=== PATIENT | female | born 1960 | race Caucasian/White ===

== ENCOUNTER 2021-11-18 15:04 | Inpatient (IN) | payer OTHER, MEDICAID, SELFPAY ==
[2021-11-18] VITALS (17 sets, daily range): BP systolic 87–170; BP diastolic 38–79; PULSE 49–90; RESP 14–25; TEMP 35–36.8; O2SAT 88–99; BMI 57.9; BMI 57.1
--- NOTE | ~2021-11-18 | XR_ITS ---
EXAMINATION: XR CHEST CLINICAL INFORMATION: Check line and tube placement COMPARISON: Previous chest x-ray from earlier the same day TECHNIQUE: Frontal view of the chest was obtained. FINDINGS: There is a right jugular line with tip projecting over the SVC. There endotracheal tube tip 3.5 cm above the kyung. There is an orogastric tube projecting over the stomach. Tip is not seen. The lung volumes are low. The cardiac and mediastinal contours are stable. There is bilateral atelectasis or infiltrates greatest lung bases. There is no pleural effusion or pneumothorax. There are degenerative changes of the spine. There is a left shoulder prosthesis. XR/XR chest 1V IMPRESSION: Right jugular line projects over SVC. Orogastric tube projects over the stomach. The tip is not seen. Endotracheal tube tip 3.5 cm above the kyung. Low lung volumes and bilateral atelectasis or infiltrates, greatest at the lung bases.
--- NOTE | ~2021-11-18 | US_ITS ---
EXAMINATION: US VENOUS ULTRASOUND WITH DOPPLER LOWER EXTREMITY, BILATERAL CLINICAL INFORMATION: Bilateral lower extremity swelling. Patient is post total knee replacement. COMPARISON: None TECHNIQUE: Ultrasound of the deep veins is performed from the hip to the calf with compression sonography and color and pulse Doppler assessment. Spectral analysis with color-flow imaging is performed. FINDINGS: RIGHT: The right common femoral and proximal and mid superficial femoral, popliteal and posterior tibial veins are patent. The right distal superficial femoral vein, profunda, peroneal and greater saphenous veins are not visualized. LEFT: The left common femoral, proximal and mid superficial femoral, profunda, popliteal and posterior tibial veins are patent. The left distal superficial femoral vein and peroneal vein are not well visualized. Short-term follow-up exam should be considered in several days if clinically indicated. No significant Nguyen's cyst is seen. There is bilateral lower extremity edema. US/US venous duplex LE BI IMPRESSION: Limited exam. No DVT seen. The bilateral distal superficial femoral and peroneal veins and right profunda and greater saphenous veins are not visualized.
--- NOTE | ~2021-11-18 | XR_ITS ---
EXAMINATION: XR CHEST CLINICAL INFORMATION: Difficulty breathing. COMPARISON: None TECHNIQUE: Frontal view of the chest was obtained. FINDINGS: Lungs are markedly hypoexpanded. Heart is probably mildly enlarged. The kyung is difficult to see but an ET tube appears to be present, which is probably about 1.5 cm above the kyung. Bilateral atelectasis is seen. A left-sided pleural effusion cannot be excluded. XR/XR chest 1V IMPRESSION: Markedly hypoexpanded lungs with bibasilar atelectasis. ET tube appears to be present approximately 1.5 cm above the kyung.
--- NOTE | ~2021-11-18 | CT_ITS ---
EXAMINATION: CT CHEST WITHOUT CONTRAST CLINICAL INFORMATION: Hypoxia COMPARISON: Chest radiograph earlier today TECHNIQUE: Multidetector volumetric CT imaging of the chest was done. Axial MIP volume rendering provided. Sagittal and coronal reformatted images were obtained. This CT examination was performed using dose optimization techniques as appropriate, variously including the following: *Automated exposure control *Adjustment of mA and/or kV according to patient size (this includes techniques or standardized protocols for targeted exams where dose is matched to indication/reason for exam; i.e. extremities or head) *Use of iterative reconstruction technique DLP: 826 mGy-cm FINDINGS: LUNGS AND PLEURA: Bilateral lower lobe collapse/consolidation is present. Trace pleural effusions are probably present. Some atelectasis is present in the upper lobes and right paramediastinal region. No suspicious lung masses are seen. MEDIASTINUM: An ET tube is present 2 cm above the kyung. No gross mediastinal or hilar lymphadenopathy is present although assessment without IV contrast is suboptimal. The heart is enlarged. No pericardial effusion. AXILLA AND CHEST WALL: No lymphadenopathy. UPPER ABDOMEN: There is a partially visualized Bosniak class I left renal cyst. No ascites is present. No adrenal mass is seen. A small hiatal hernia is present. OSSEOUS STRUCTURES: Degenerative changes are present throughout the spine. No bony destructive CT/CT chest wo con IMPRESSION: Bilateral lower lobe collapse/consolidation much more apparent on this exam than on the plain film. Cardiomegaly and trace pleural effusions. Fleischner guidelines were followed.
--- NOTE | ~2021-11-18 | CT_ITS ---
EXAMINATION: CT HEAD WITHOUT CONTRAST CLINICAL INFORMATION: Altered mental status. COMPARISON: None TECHNIQUE: Contiguous axial imaging was performed from the skull base to vertex without intravenous administration of contrast. This CT examination was performed using dose optimization techniques as appropriate, variously including the following: *Automated exposure control *Adjustment of mA and/or kV according to patient size (this includes techniques or standardized protocols for targeted exams where dose is matched to indication/reason for exam; i.e. extremities or head) *Use of iterative reconstruction technique DLP: 924 mGy-cm FINDINGS: There is no evidence of acute intracranial hemorrhage or territorial infarction. No abnormal mass effect or midline shift is seen. Teixeira to white matter differentiation is well preserved. No extra-axial fluid collections are identified. The ventricles are normal in size. There is no abnormal attenuation within the brain parenchyma. The osseous structures and soft tissues are normal. The mastoid air cells and visualized portions of the paranasal sinuses are well aerated. CT/CT head/brain wo con IMPRESSION: No acute intracranial pathology.
--- NOTE | 2021-11-18 15:21 | ECG_ITS ---
Test Reason : Difficulty Breathing Blood Pressure : / mmHG Vent. Rate : 069 BPM Atrial Rate : 069 BPM P-R Int : 202 ms QRS Dur : 160 ms QT Int : 440 ms P-R-T Axes : 046 -34 109 degrees QTc Int : 471 ms Normal sinus rhythm Left axis deviation Left bundle branch block Abnormal ECG No previous ECGs available Referred By: Andreina Méndez Electronically Signed By:MAREN VIDALES MD
--- NOTE | 2021-11-18 15:23 | PC.NURSE ---
placed on bipap, ?impending need for intubation. respiratory and provider at bedside, vital signs stabalizing on bipap.
--- NOTE | 2021-11-18 15:25 | ED_ITS ---
HPI - Weakness General Chief complaint: Weakness <Andreina Méndez NP - Last Filed: 11/18/21 19:00> Stated complaint: unresponsive/hypoxic <Andreina Méndez NP - Last Filed: 11/18/21 19:00> Time Seen by Provider: 11/18/21 15:17 <Andreina Méndez NP - Last Filed: 11/18/21 19:00> Source: EMS <Andreina Méndez NP - Last Filed: 11/18/21 19:00> Mode of arrival: EMS <Andreina Méndez NP - Last Filed: 11/18/21 19:00> Limitations: altered mental status <Andreina Méndez NP - Last Filed: 11/18/21 19:00> History of Present Illness HPI Narrative: 60-year-old female coming from [facility] with reports of altered mental status, hypoxia noted this morning by staff. There is no history available in the patient. She is unable to answer any questions. The report given by EMS the patient is currently at [facility] for a left knee replacement having rehab. Per EMS the patient's RA saturation was 80% <Andreina Méndez NP - Last Filed: 11/18/21 19:00> Related Data Allergies/Adverse reactions: Allergies Allergy/AdvReac Type Severity Reaction Status Date / Time Unable to Assess Allergy Verified 11/18/21 15:21 <Andreina Méndez NP - Last Filed: 11/18/21 19:00> Review of Systems Review of Systems: Yes Unobtainable due to mental status <Andreina Méndez NP - Last Filed: 11/18/21 19:00> [facility] Past Medical History Attestation statement: The following information was validated with the patient. <Andreina montiel NP - Last Filed: 11/18/21 19:00> Source: old records reviewed and nursing notes reviewed <Andreina Méndez NP - Last Filed: 11/18/21 19:00> Social History Social History: Social History Advance Directives: No Advance Directives Information Provided: No Patient : No <Andreina Méndez NP - Last Filed: 11/18/21 19:00> Physical Exam Vital Signs: Vital Signs: Last Vital Signs Pulse 74 11/18/21 15:19 Resp 25 H 11/18/21 15:27 BP 128/51 L 11/18/21 15:19 Pulse Ox 88 L 11/18/21 15:19 BMI result Body Mass Index 57.9 <Andreina Méndez NP - Last Filed: 11/18/21 19:00> Vital Signs: Last Vital Signs Pulse 74 11/18/21 15:19 Resp 25 H 11/18/21 15:27 BP 128/51 L 11/18/21 15:19 Pulse Ox 88 L 11/18/21 15:19 BMI result Body Mass Index 57.9 <Juan Carlos Sharp MD - Last Filed: 11/18/21 16:23> Const: Other: Patient is resting with her eyes closed. She does respond to gentle shaking and opens her eyes to tell me her name. She quickly falls back to sleep. <Andreina Méndez NP - Last Filed: 11/18/21 19:00> General: other (lethargic) <Andreina Méndez NP - Last Filed: 11/18/21 19:00> Nutritional Appearance: obese <Andreina Méndez NP - Last Filed: 11/18/21 19:00> Orientation/consciousness: oriented to person <Andreina Méndez NP - Last Filed: 11/18/21 19:00> Limitations: altered mental status <Andreina Méndez NP - Last Filed: 11/18/21 19:00> HENMT: Head: Yes normal to inspection <Andreina Méndez NP - Last Filed: 11/18/21 19:00> Ears: hearing grossly normal bilaterally <Andreina Méndez NP - Last Filed: 11/18/21 19:00> General nose exam: Normal external nose present <Andreina Méndez NP - Last Filed: 11/18/21 19:00> Face and sinus: Yes normal facial exam <Andreina Méndez NP - Last Filed: 11/18/21 19:00> Throat: Yes posterior oropharynx normal and Yes tonsils normal <Andreina Méndez NP - Last Filed: 11/18/21 19:00> Eyes: General: appearance normal, both eyes and all related structures <Andreina Méndez NP - Last Filed: 11/18/21 19:00> Pupils: Equal, round and reactive pupils present <Andreina Méndez NP - Last Filed: 11/18/21 19:00> Neck: Neck: Yes normal visual inspection <Andreina Méndez NP - Last Filed: 11/18/21 19:00> Chest: Chest palpation & inspection: normal inspection of the chest <Andreina Méndez NP - Last Filed: 11/18/21 19:00> Resp: Other: Tachypneic, accessory muscle use <Andreina Méndez NP - Last Filed: 11/18/21 19:00> Cardio: Rate: tachycardic <Andreina Médnez NP - Last Filed: 11/18/21 19:00> Rhythm: regular rhythm <Andreina Méndez NP - Last Filed: 11/18/21 19:00> GI: Inspection: Yes obesity <Andreina Méndez NP - Last Filed: 11/18/21 19:00> Skin: Other: <Andreina Méndez NP - Last Filed: 11/18/21 19:00> Neuro: Other: +very lethargic <Andreina Méndez NP - Last Filed: 11/18/21 19:00> General: oriented to person, normal sensation to monofilament and Unable to as sess gait <Andreina Méndez NP - Last Filed: 11/18/21 19:00> Cranial nerves: Yes Equal, round and reactive pupils present <Andreina Méndez NP - Last Filed: 11/18/21 19:00> Gait exam (Neuro): Unable to assess gait <Andreina Méndez NP - Last Filed: 11/18/21 19:00> Course Course Course Narrative: 60 yo female coming from a rehab facility after having a TKR with AMS, hypoxia. No known history of the patient. Per verbal report patient is a full code. Patient noted to be quite lethargic, rouses to verbal and follows brief commands. Hypoxic 85% on 100% NRB with accessory muscle use and tachypnea. Dr. Sharp brought directly bedside. ?co2 narcosis. Patient placed immediately on BIPAP. RT at bedside for ABG, will obtain labs, UA, COVID screen, CXR. 1545-ABG c/w respiratory acidosis with CO2 91. Patient now minimally responsive. Hypoxic despite being on BiPAP. Will need intubation. [facility] able [facility] They were unable to fax us medical records. Per staff the patient has a history of osteoarthritis, depre ssion, congestive heart failure, pulmonary embolism on Eliquis, type 2 diabetes, hypertension, C diff currently being treated with vancomycin, right foot infection currently on amoxicillin. Patient was transferred from [facility] on November 07 for rehab for left total knee replacement. Her medication list is composed of carvedilol, enalapril, gabapentin, iron, 81 mg aspirin, Lipitor, Lasix, Eliquis, tizanidine, sertraline, vancomycin, amoxicillin, oxycodone 10 mg t.i.d., trazodone p.r.n. We did attempt to give Narcan 1 mg as the patient is on chronic opiates with no effect. 1550-Spoke to the Miah on the phone who gave verbal consent for intubation 1600-See intubation note by Dr. Sharp. 1605- patient has a right lower extremity cellulitis from a heel wound. At this time infection suspected. Antibiotics ordered 1610-ET tube pulled back 1cm after seeing CXR. Now 24 at the gum line. 1615-Will be brought direct to CT for CT head to r/o ICH d/t AC therapy use and AMS. [employer] aware of patient 1700-Returned from CT. Blood pressures soft 90/40 after 1500ml NS. ?post sedation hypotension and not from infection. Patient has required prn ativan/versed for mild agitation. D/w with Dr Armenta about appropriate sedation with soft BP. Recommended albumin x2, initiating sedation. If continued hypotension initiate pressers. Aware patient does not have central line at this time. 1805-post intubation ABG shows pH 7.493, CO2 45.6, PO2 65.3, O2 92%. RT to decr ease rate on vent d/t mild alkalosis. <Andreina Méndez NP - Last Filed: 0 11/18/21 19:00> MDM - Weakness MDM Narrative Medical decision making narrative: ICH CO2 narcosis <Andreina Méndez NP - Last Filed: 11/18/21 19:00> Differential Diagnosis Differential diagnosis: Likely UTI, anemia, hypoglycemia, rhabdomyolysis, sepsis and dehydration <Andreina Méndez NP - Last Filed: 11/18/21 19:00> Medical Records Attestation: I reviewed the patient's medical records. <Andreina Méndez NP - Last Filed: 11/18/21 19:00> Lab Data Attestation: I reviewed the patient's lab results. <Andreina Méndez NP - Last Filed: 11/18/21 19:00> Result diagrams: : 11/18/21 15:27 11/18/21 15:27 <Andreina Méndez NP - Last Filed: 11/18/21 19:00> Labs: Lab Results 11/18/21 11/18/21 11/18/21 Range/Units 15:27 15:27 15:27 WBC 10.1 (4.8-10.8) X10*3/uL RBC 3.68 L (4.20-5.50) X10*6/uL Hgb 9.4 L (12.0-16.0) g/dl Hct 34.5 L (37.0-47.0) % MCV 93.8 (80.0-98.0) fL MCH 25.5 L (27.0-33.0) pg MCHC 27.2 L (31.0-35.0) g/dl RDW 17.6 H (11.0-16.0) % Plt Count 278 (160-400) X10*3/uL MPV 9.9 (9.4-12.3) fL Immature Gran % (Auto) 0.5 H (0.0-0.4) % Neut % (Auto) 69.7 (45-73) % Lymph % (Auto) 16.7 L (20-40) % Galax % (Auto) 9.6 (2-11) % Eos % (Auto) 3.2 (0-4) % Baso % (Auto) 0.3 (0-2) % Lymph # (Auto) 1.7 (1.2-4.9) X10*3/uL Galax # (Auto) 1.0 (0.1-1.2) X10*3/uL Eos # (Auto) 0.3 (0.0-0.4) X10*3/uL Baso # (Auto) 0.0 (0.0-0.2) X10*3/uL Abs Immat Gran (auto) 0.05 H (0.00-0.03) X10*3/uL Absolute Neuts (auto) 7.1 (2.0-8.3) x10*3/uL Absolute Nucleated RBC 0.090 H (0.0-0.012) X10*3/uL Nucleated RBC % (auto) 0.9 H (0.0-0.2) /100WBC PT 20.2 H (9.9-13.0) SEC INR 1.8 H (0.9-1.1) O2 Saturation % ABG pH at Pt Temp (7.35-7.45) ABG pCO2 at Pt Temp (32-45) mmHg ABG pO2 at Pt Temp (83-108) mmHg ABG HCO3 (22-26) mmol/L ABG Base Excess (Actual) mmol/L Sodium 141 (135-145) mmol/L Potassium 4.9 (3.3-5.1) mmol/L Chloride 95 L (96-108) mmol/L Carbon Dioxide 37 H (22-29) mmol/L Anion Gap 14 (12-20) BUN 40 H (9-16) mg/dL Creatinine 2.23 H (0.5-1.4) mg/dL Estim Creat Clear Calc 45.0 Estimated GFR 22 Random Glucose 133 H (60-115) mg/dL Lactic Acid (0.5-2.0) mmol/L Calcium 8.5 (8.4-10.2) mg/dL Magnesium 2.7 H (1.6-2.6) mg/dL Total Bilirubin 0.4 (0.0-1.0) mg/dL Direct Bilirubin 0.2 (0.0-0.5) mg/dL AST 9 (5-31) U/L ALT 6 (0-31) U/L Alkaline Phosphatase 113 (39-117) U/L Troponin I High Sens (<3.5-17.0) ng/L B-Natriuretic Peptide (<100) pg/mL Total Protein 7.4 (6.5-8.0) g/dL Albumin 3.7 (3.5-5.0) g/dL Urine Color Urine Appearance Urine pH (5.0-8.0) Ur Specific Hodges (1.005-1.025) Urine Protein (NEG-TRACE) MG/DL Urine Glucose (UA) (NEG) MG/DL Urine Ketones (NEG) MG/DL Urine Blood (NEG) Urine Nitrite (NEG) Ur Leukocyte Esterase (NEG) COVID-19 (LIS) (Negative) COVID-19 Clin Com 11/18/21 11/18/21 11/18/21 Range/Units 15:27 15:27 15:27 WBC (4.8-10.8) X10*3/uL RBC (4.20-5.50) X10*6/uL Hgb (12.0-16.0) g/dl Hct (37.0-47.0) % MCV (80.0-98.0) fL MCH (27.0-33.0) pg MCHC (31.0-35.0) g/dl RDW (11.0-16.0) % Plt Count (160-400) X10*3/uL MPV (9.4-12.3) fL Immature Gran % (Auto) (0.0-0.4) % Neut % (Auto) (45-73) % Lymph % (Auto) (20-40) % Galax % (Auto) (2-11) % Eos % (Auto) (0-4) % Baso % (Auto) (0-2) % Lymph # (Auto) (1.2-4.9) X10*3/uL Galax # (Auto) (0.1-1.2) X10*3/uL Eos # (Auto) (0.0-0.4) X10*3/uL Baso # (Auto) (0.0-0.2) X10*3/uL Abs Immat Gran (auto) (0.00-0.03) X10*3/uL Absolute Neuts (auto) (2.0-8.3) x10*3/uL Absolute Nucleated RBC (0.0-0.012) X10*3/uL Nucleated RBC % (auto) (0.0-0.2) /100WBC PT (9.9-13.0) SEC INR (0.9-1.1) O2 Saturation % ABG pH at Pt Temp (7.35-7.45) ABG pCO2 at Pt Temp (32-45) mmHg ABG pO2 at Pt Temp (83-108) mmHg ABG HCO3 (22-26) mmol/L ABG Base Excess (Actual) mmol/L Sodium (135-145) mmol/L Potassium (3.3-5.1) mmol/L Chloride (96-108) mmol/L Carbon Dioxide (22-29) mmol/L Anion Gap (12-20) BUN (9-16) mg/dL Creatinine (0.5-1.4) mg/dL Estim Creat Clear Calc Estimated GFR Random Glucose (60-115) mg/dL Lactic Acid 1.1 (0.5-2.0) mmol/L Calcium (8.4-10.2) mg/dL Magnesium (1.6-2.6) mg/dL Total Bilirubin (0.0-1.0) mg/dL Direct Bilirubin (0.0-0.5) mg/dL AST (5-31) U/L ALT (0-31) U/L Alkaline Phosphatase (39-117) U/L Troponin I High Sens 12.4 (<3.5-17.0) ng/L B-Natriuretic Peptide 405 H (<100) pg/mL Total Protein (6.5-8.0) g/dL Albumin (3.5-5.0) g/dL Urine Color Urine Appearance Urine pH (5.0-8.0) Ur Specific Hodges (1.005-1.025) Urine Protein (NEG-TRACE) MG/DL Urine Glucose (UA) (NEG) MG/DL Urine Ketones (NEG) MG/DL Urine Blood (NEG) Urine Nitrite (NEG) Ur Leukocyte Esterase (NEG) COVID-19 (LIS) Negative (Negative) COVID-19 Clin Com See Note 11/18/21 11/18/21 Range/Units 15:40 16:17 WBC (4.8-10.8) X10*3/uL RBC (4.20-5.50) X10*6/uL Hgb (12.0-16.0) g/dl Hct (37.0-47.0) % MCV (80.0-98.0) fL MCH (27.0-33.0) pg MCHC (31.0-35.0) g/dl RDW (11.0-16.0) % Plt Count (160-400) X10*3/uL MPV (9.4-12.3) fL Immature Gran % (Auto) (0.0-0.4) % Neut % (Auto) (45-73) % Lymph % (Auto) (20-40) % Galax % (Auto) (2-11) % Eos % (Auto) (0-4) % Baso % (Auto) (0-2) % Lymph # (Auto) (1.2-4.9) X10*3/uL Galax # (Auto) (0.1-1.2) X10*3/uL Eos # (Auto) (0.0-0.4) X10*3/uL Baso # (Auto) (0.0-0.2) X10*3/uL Abs Immat Gran (auto) (0.00-0.03) X10*3/uL Absolute Neuts (auto) (2.0-8.3) x10*3/uL Absolute Nucleated RBC (0.0-0.012) X10*3/uL Nucleated RBC % (auto) (0.0-0.2) /100WBC PT (9.9-13.0) SEC INR (0.9-1.1) O2 Saturation 95.0 % ABG pH at Pt Temp 7.29 L (7.35-7.45) ABG pCO2 at Pt Temp 91 H* (32-45) mmHg ABG pO2 at Pt Temp 92 (83-108) mmHg ABG HCO3 44 H (22-26) mmol/L ABG Base Excess (Actual) 14.1 mmol/L Sodium (135-145) mmol/L Potassium (3.3-5.1) mmol/L Chloride (96-108) mmol/L Carbon Dioxide (22-29) mmol/L Anion Gap (12-20) BUN (9-16) mg/dL Creatinine (0.5-1.4) mg/dL Estim Creat Clear Calc Estimated GFR Random Glucose (60-115) mg/dL Lactic Acid (0.5-2.0) mmol/L Calcium (8.4-10.2) mg/dL Magnesium (1.6-2.6) mg/dL Total Bilirubin (0.0-1.0) mg/dL Direct Bilirubin (0.0-0.5) mg/dL AST (5-31) U/L ALT (0-31) U/L Alkaline Phosphatase (39-117) U/L Troponin I High Sens (<3.5-17.0) ng/L B-Natriuretic Peptide (<100) pg/mL Total Protein (6.5-8.0) g/dL Albumin (3.5-5.0) g/dL Urine Color DK YELLOW Urine Appearance CLEAR Urine pH 5.5 (5.0-8.0) Ur Specific Hodges >= 1.030 H (1.005-1.025) Urine Protein NEG (NEG-TRACE) MG/DL Urine Glucose (UA) NEG (NEG) MG/DL Urine Ketones 5 (NEG) MG/DL Urine Blood NEG (NEG) Urine Nitrite NEG (NEG) Ur Leukocyte Esterase NEG (NEG) COVID-19 (LIS) (Negative) COVID-19 Clin Com <Andreina Méndez PUNCH HAND - Last Filed: 11/18/21 19:00> Lab Results 11/18/21 11/18/21 11/18/21 Range/Units 15:27 15:27 15:27 WBC 10.1 (4.8-10.8) X10*3/uL RBC 3.68 L (4.20-5.50) X10*6/uL Hgb 9.4 L (12.0-16.0) g/dl Hct 34.5 L (37.0-47.0) % MCV 93.8 (80.0-98.0) fL MCH 25.5 L (27.0-33.0) pg MCHC 27.2 L (31.0-35.0) g/dl RDW 17.6 H (11.0-16.0) % Plt Count 278 (160-400) X10*3/uL MPV 9.9 (9.4-12.3) fL Immature Gran % (Auto) 0.5 H (0.0-0.4) % Neut % (Auto) 69.7 (45-73) % Lymph % (Auto) 16.7 L (20-40) % Galax % (Auto) 9.6 (2-11) % Eos % (Auto) 3.2 (0-4) % Baso % (Auto) 0.3 (0-2) % Lymph # (Auto) 1.7 (1.2-4.9) X10*3/uL Galax # (Auto) 1.0 (0.1-1.2) X10*3/uL Eos # (Auto) 0.3 (0.0-0.4) X10*3/uL Baso # (Auto) 0.0 (0.0-0.2) X10*3/uL Abs Immat Gran (auto) 0.05 H (0.00-0.03) X10*3/uL Absolute Neuts (auto) 7.1 (2.0-8.3) x10*3/uL Absolute Nucleated RBC 0.090 H (0.0-0.012) X10*3/uL Nucleated RBC % (auto) 0.9 H (0.0-0.2) /100WBC PT 20.2 H (9.9-13.0) SEC INR 1.8 H (0.9-1.1) O2 Saturation % ABG pH at Pt Temp (7.35-7.45) ABG pCO2 at Pt Temp (32-45) mmHg ABG pO2 at Pt Temp (83-108) mmHg ABG HCO3 (22-26) mmol/L ABG Base Excess (Actual) mmol/L Sodium 141 (135-145) mmol/L Potassium 4.9 (3.3-5.1) mmol/L Chloride 95 L (96-108) mmol/L Carbon Dioxide 37 H (22-29) mmol/L Anion Gap 14 (12-20) BUN 40 H (9-16) mg/dL Creatinine 2.23 H (0.5-1.4) mg/dL Estim Creat Clear Calc 45.0 Estimated GFR 22 Random Glucose 133 H (60-115) mg/dL Lactic Acid (0.5-2.0) mmol/L Calcium 8.5 (8.4-10.2) mg/dL Magnesium 2.7 H (1.6-2.6) mg/dL Total Bilirubin 0.4 (0.0-1.0) mg/dL Direct Bilirubin 0.2 (0.0-0.5) mg/dL AST 9 (5-31) U/L ALT 6 (0-31) U/L Alkaline Phosphatase 113 (39-117) U/L Troponin I High Sens (<3.5-17.0) ng/L B-Natriuretic Peptide (<100) pg/mL Total Protein 7.4 (6.5-8.0) g/dL Albumin 3.7 (3.5-5.0) g/dL Urine Color Urine Appearance Urine pH (5.0-8.0) Ur Specific Hodges (1.005-1.025) Urine Protein (NEG-TRACE) MG/DL Urine Glucose (UA) (NEG) MG/DL Urine Ketones (NEG) MG/DL Urine Blood (NEG) Urine Nitrite (NEG) Ur Leukocyte Esterase (NEG) COVID-19 (LIS) (Negative) COVID-19 Clin Com 11/18/21 11/18/21 11/18/21 Range/Units 15:27 15:27 15:27 WBC (4.8-10.8) X10*3/uL RBC (4.20-5.50) X10*6/uL Hgb (12.0-16.0) g/dl Hct (37.0-47.0) % MCV (80.0-98.0) fL MCH (27.0-33.0) pg MCHC (31.0-35.0) g/dl RDW (11.0-16.0) % Plt Count (160-400) X10*3/uL MPV (9.4-12.3) fL Immature Gran % (Auto) (0.0-0.4) % Neut % (Auto) (45-73) % Lymph % (Auto) (20-40) % Galax % (Auto) (2-11) % Eos % (Auto) (0-4) % Baso % (Auto) (0-2) % Lymph # (Auto) (1.2-4.9) X10*3/uL Galax # (Auto) (0.1-1.2) X10*3/uL Eos # (Auto) (0.0-0.4) X10*3/uL Baso # (Auto) (0.0-0.2) X10*3/uL Abs Immat Gran (auto) (0.00-0.03) X10*3/uL Absolute Neuts (auto) (2.0-8.3) x10*3/uL Absolute Nucleated RBC (0.0-0.012) X10*3/uL Nucleated RBC % (auto) (0.0-0.2) /100WBC PT (9.9-13.0) SEC INR (0.9-1.1) O2 Saturation % ABG pH at Pt Temp (7.35-7.45) ABG pCO2 at Pt Temp (32-45) mmHg ABG pO2 at Pt Temp (83-108) mmHg ABG HCO3 (22-26) mmol/L ABG Base Excess (Actual) mmol/L Sodium (135-145) mmol/L Potassium (3.3-5.1) mmol/L Chloride (96-108) mmol/L Carbon Dioxide (22-29) mmol/L Anion Gap (12-20) BUN (9-16) mg/dL Creatinine (0.5-1.4) mg/dL Estim Creat Clear Calc Estimated GFR Random Glucose (60-115) mg/dL Lactic Acid 1.1 (0.5-2.0) mmol/L Calcium (8.4-10.2) mg/dL Magnesium (1.6-2.6) mg/dL Total Bilirubin (0.0-1.0) mg/dL Direct Bilirubin (0.0-0.5) mg/dL AST (5-31) U/L ALT (0-31) U/L Alkaline Phosphatase (39-117) U/L Troponin I High Sens 12.4 (<3.5-17.0) ng/L B-Natriuretic Peptide 405 H (<100) pg/mL Total Protein (6.5-8.0) g/dL Albumin (3.5-5.0) g/dL Urine Color Urine Appearance Urine pH (5.0-8.0) Ur Specific Hodges (1.005-1.025) Urine Protein (NEG-TRACE) MG/DL Urine Glucose (UA) (NEG) MG/DL Urine Ketones (NEG) MG/DL Urine Blood (NEG) Urine Nitrite (NEG) Ur Leukocyte Esterase (NEG) COVID-19 (LIS) Negative (Negative) COVID-19 Clin Com See Note 11/18/21 11/18/21 Range/Units 15:40 16:17 WBC (4.8-10.8) X10*3/uL RBC (4.20-5.50) X10*6/uL Hgb (12.0-16.0) g/dl Hct (37.0-47.0) % MCV (80.0-98.0) fL MCH (27.0-33.0) pg MCHC (31.0-35.0) g/dl RDW (11.0-16.0) % Plt Count (160-400) X10*3/uL MPV (9.4-12.3) fL Immature Gran % (Auto) (0.0-0.4) % Neut % (Auto) (45-73) % Lymph % (Auto) (20-40) % Galax % (Auto) (2-11) % Eos % (Auto) (0-4) % Baso % (Auto) (0-2) % Lymph # (Auto) (1.2-4.9) X10*3/uL Galax # (Auto) (0.1-1.2) X10*3/uL Eos # (Auto) (0.0-0.4) X10*3/uL Baso # (Auto) (0.0-0.2) X10*3/uL Abs Immat Gran (auto) (0.00-0.03) X10*3/uL Absolute Neuts (auto) (2.0-8.3) x10*3/uL Absolute Nucleated RBC (0.0-0.012) X10*3/uL Nucleated RBC % (auto) (0.0-0.2) /100WBC PT (9.9-13.0) SEC INR (0.9-1.1) O2 Saturation 95.0 % ABG pH at Pt Temp 7.29 L (7.35-7.45) ABG pCO2 at Pt Temp 91 H* (32-45) mmHg ABG pO2 at Pt Temp 92 (83-108) mmHg ABG HCO3 44 H (22-26) mmol/L ABG Base Excess (Actual) 14.1 mmol/L Sodium (135-145) mmol/L Potassium (3.3-5.1) mmol/L Chloride (96-108) mmol/L Carbon Dioxide (22-29) mmol/L Anion Gap (12-20) BUN (9-16) mg/dL Creatinine (0.5-1.4) mg/dL Estim Creat Clear Calc Estimated GFR Random Glucose (60-115) mg/dL Lactic Acid (0.5-2.0) mmol/L Calcium (8.4-10.2) mg/dL Magnesium (1.6-2.6) mg/dL Total Bilirubin (0.0-1.0) mg/dL Direct Bilirubin (0.0-0.5) mg/dL AST (5-31) U/L ALT (0-31) U/L Alkaline Phosphatase (39-117) U/L Troponin I High Sens (<3.5-17.0) ng/L B-Natriuretic Peptide (<100) pg/mL Total Protein (6.5-8.0) g/dL Albumin (3.5-5.0) g/dL Urine Color DK YELLOW Urine Appearance CLEAR Urine pH 5.5 (5.0-8.0) Ur Specific Hodges >= 1.030 H (1.005-1.025) Urine Protein NEG (NEG-TRACE) MG/DL Urine Glucose (UA) NEG (NEG) MG/DL Urine Ketones 5 (NEG) MG/DL Urine Blood NEG (NEG) Urine Nitrite NEG (NEG) Ur Leukocyte Esterase NEG (NEG) COVID-19 (LIS) (Negative) COVID-19 Clin Com <Juan Carlos Sharp MD - Last Filed: 11/18/21 16:23> Imaging Data Chest x-ray: Attestation: I personally reviewed and interpreted this imaging study as follows: <Andreina Méndez NP - Last Filed: 11/18/21 19:00> Radiologist's impression: FINDINGS: Lungs are markedly hypoexpanded. Heart is probably mildly enlarged. The kyung is difficult to see but an ET tube appears to be present, which is probably about 1.5 cm above the kyung. Bilateral atelectasis is seen. A left-sided pleural effusion cannot be excluded. XR/XR chest 1V IMPRESSION: Markedly hypoexpanded lungs with bibasilar atelectasis. ET tube appears to be present approximately 1.5 cm above the kyung. <Andreina Méndez NP - Last Filed: 11/18/21 19:00> CT scan - head: Attestation: I personally reviewed and interpreted this imaging study as follows: <Andreina Méndez NP - Last Filed: 11/18/21 19:00> Radiologist's impression: FINDINGS: There is no evidence of acute intracranial hemorrhage or territorial infarction. No abnormal mass effect or midline shift is seen. Teixeira to white matter differentiation is well preserved. No extra-axial fluid collections are identified. The ventricles are normal in size. There is no abnormal attenuation within the brain parenchyma. The osseous structures and soft tissues are normal. The mastoid air cells and visualized portions of the paranasal sinuses are well aerated. ? CT/CT head/brain wo con IMPRESSION: No acute intracranial pathology. <Andreina Méndez NP - Last Filed: 11/18/21 19:00> CT scan - chest: Attestation: I personally reviewed and interpreted this imaging study as follows: <Andreina Méndez NP - Last Filed: 11/18/21 19:00> Radiologist's impression: [address] [address] [address] Scan Report Signed Patient: Bonnie Das MR#: [id number] : 1960 Acct:[id number] Age/Sex: 60 / F ADM Date: 11/18/21 Loc: .ICU 252-[address]: Cheikh Armenta MD Ordering Physician: Andreina Méndez NP Date of Service: 11/18/21 Procedure(s): CT chest wo con Accession Number(s): [id number] cc: Andreina Méndez NP~ EXAMINATION: CT CHEST WITHOUT CONTRAST CLINICAL INFORMATION: Hypoxia? COMPARISON: Chest radiograph earlier today? TECHNIQUE: Multidetector volumetric CT imaging of the chest was done. Axial MIP volume rendering provided. Sagittal and coronal reformatted images were obtained.? This CT examination was performed using dose optimization techniques as appropriate, variously including the following: *Automated exposure control *Adjustment of mA and/or kV according to patient size (this includes techniques or standardized protocols for targeted exams where dose is matched to indication/reason for exam; i.e. extremities or head) *Use of iterative reconstruction technique DLP: 826 mGy-cm FINDINGS: LUNGS AND PLEURA: Bilateral lower lobe collapse/consolidation is present. Trace pleural effusions are probably present. Some atelectasis is present in the upper lobes and right paramediastinal region. No suspicious lung masses are seen. MEDIASTINUM: An ET tube is present 2 cm above the kyung. No gross mediastinal or hilar lymphadenopathy is present although assessment without IV contrast is suboptimal. The heart is enlarged. No pericardial effusion.? AXILLA AND CHEST WALL: No lymphadenopathy.? UPPER ABDOMEN: There is a partially visualized Bosniak class I left renal cyst. No ascites is present. No adrenal mass is seen. A small hiatal hernia is present.? OSSEOUS STRUCTURES: Degenerative changes are present throughout the spine. No bony destructive? CT/CT chest wo con IMPRESSION: Bilateral lower lobe collapse/consolidation much more apparent on this exam than on the plain film. Cardiomegaly and trace pleural effusions. ? ? Fleischner guidelines were followed. <Andreina Méndez NP - Last Filed: 11/18/21 19:00> ECG Data Attestation: I personally reviewed and interpreted this ECG as follows: <Andreina Méndez NP - Last Filed: 11/18/21 19:00> ECG interpretation date: 11/18/21 <Andreina Méndez NP - Last Filed: 11/18/21 19:00> ECG interpretation time: 15:21 <Andreina Méndez NP - Last Filed: 11/18/21 19:00> Interpretation: Normal sinus rhythm with a rate of 69, left bundle-branch block, <Andreina Méndez NP - Last Filed: 11/18/21 19:00> Procedures Intubation Time out performed: Yes <Juan Carlos Sharp MD - Last Filed: 11/18/21 16:23> sedative: Etomidate <Juan Carlos Sharp MD - Last Filed: 11/18/21 16:23> Mg Given: 20 <Juan Carlos Sharp MD - Last Filed: 11/18/21 16:23> paralytic: Succinylcholine <Juan Carlos Sharp MD - Last Filed: 11/18/21 16:23> Mg Given: 100 <Juan Carlos Sharp MD - Last Filed: 11/18/21 16:23> Laryngoscope: fiber optic video scope <Juan Carlos Sharp MD - Last Filed: 11/18/21 16:23> ET Tube Size: 7.5 <Juan Carlos Sharp MD - Last Filed: 11/18/21 16:23> ET Tube Uncuffed: Yes <Juan Carlos Sharp MD - Last Filed: 11/18/21 16:23> Tube Placement Confirmation: visualized tube passing through cords and equal breath sounds bilaterally <Juan Carlos Sharp MD - Last Filed: 11/18/21 16:23> Patient Tolerated Procedure: well <Juan Carlos Sharp MD - Last Filed: 11/18/21 16:23> Intubation Complications: none (We attempted bypap first,Narcan IV BECAUSE IN NARCOTIC,REMAINED UNRESPONSIVE AND HYPOXIC) <Juan Carlos Sharp MD - Last Filed: 11/18/21 16:23> Critical Care Time Critical Care Time Critical Care Time: Yes <Andreina Méndez NP - Last Filed: 11/18/21 19:00> Total Critical Care Time: 120 <Andreina Méndez NP - Last Filed: 11/18/21 19:00> Attestation: Multiple re-evaluations for mental status, noninvasive ventilation use. Intubation done by attending physician. Frequent updates to family via phone and in person, discussion with stores clerk with ICU admit. Managing hypoxia, hypotension, altered mental status <Andreina Méndez NP - Last Filed: 11/18/21 19:00> Discharge Plan Discharge Clinical Impression: AMS (altered mental status), Hypoxia, Anemia, Pneumonia, BERNIE (acute kidney injury), Cellulitis <Andreina Méndez NP - Last Filed: 11/18/21 19:00> Patient Disposition: Admitted As Inpatient <Andreina Méndez NP - Last Filed: 11/18/21 19:00>
[2021-11-18 15:35] LABS: MANUAL DIFF FLAG NO
[2021-11-18 15:37] LABS: Basophils Percent Auto 0.3 % (0-2); Eosinophils Absolute Auto 0.3 X10*3/uL (0.0-0.4); Eosinophils Percent Auto 3.2 % (0-4); Hematocrit 34.5 % (37.0-47.0); Hemoglobin 9.4 g/dl (12.0-16.0); Imm Gran Abs Auto 0.05 X10*3/uL (0.00-0.03); Imm Gran Pct Auto 0.5 % (0.0-0.4); Lymphocytes Absolute Auto 1.7 X10*3/uL (1.2-4.9); Lymphocytes Percent Auto 16.7 % (20-40); Mean Corpuscular HGB Conc 27.2 g/dl (31.0-35.0); Mean Corpuscular Hemoglobin 25.5 pg (27.0-33.0); Mean Corpuscular Volume 93.8 fL (80.0-98.0); Mean Platelet Volume 9.9 fL (9.4-12.3); Monocytes Percent Auto 9.6 % (2-11); NRBC Pct Auto 0.9 /100WBC (0.0-0.2); Neutrophils Absolute Auto 7.1 x10*3/uL (2.0-8.3); Neutrophils Percent Auto 69.7 % (45-73); Platelet Count 278 X10*3/uL (160-400); Red Blood Count 3.68 X10*6/uL (4.20-5.50); Red Cell Distribution Width 17.6 % (11.0-16.0); White Blood Count 10.1 X10*3/uL (4.8-10.8)
[2021-11-18 15:43] LABS: INTERNATIONAL NORM RATIO 1.8 (0.9-1.1); Prothrombin Time 20.2 SEC (9.9-13.0)
[2021-11-18 15:47] LABS: ABG Base Excess 14.1 mmol/L; ABG HCO3 44 mmol/L (22-26); ABG pCO2 91 mmHg (32-45); ABG pH 7.29 (7.35-7.45); ABG pO2 92 mmHg (83-108)
[2021-11-18] MEDS: Naloxone HCl 2 MG/2 ML SYRINGE 1 MG IVPUSH (15:48)
[2021-11-18] MEDS: ondansetron HCL 4 MG/2 ML VIAL IVPUSH (15:49)
[2021-11-18 15:51] LABS: Lactic Acid 1.1 mmol/L (0.5-2.0)
[2021-11-18] MEDS: 0.9 % Sodium Chloride 1,000 ML 999 ML IV ×2 (15:51→17:43)
[2021-11-18 15:55] LABS: Alanine Aminotransferase 6 U/L (0-31); Albumin Level 3.7 g/dL (3.5-5.0); Alkaline Phosphatase 113 U/L (39-117); Anion Gap 14 (12-20); Aspartate Amino Transferase 9 U/L (5-31); Bilirubin Direct 0.2 mg/dL (0.0-0.5); Bilirubin Total 0.4 mg/dL (0.0-1.0); Blood Urea Nitrogen 40 mg/dL (9-16); Calcium 8.5 mg/dL (8.4-10.2); Carbon Dioxide 37 mmol/L (22-29); Chloride 95 mmol/L (96-108); Estimated Glomerular Filt Rate 22; Glucose Random 133 mg/dL (60-115); Magnesium 2.7 mg/dL (1.6-2.6); Potassium 4.9 mmol/L (3.3-5.1); Sodium 141 mmol/L (135-145); Total Protein 7.4 g/dL (6.5-8.0)
[2021-11-18 16:01] LABS: B Type Natriuretic Peptide 405 pg/mL (<100); Troponin-I High Sensitivity 12.4 ng/L (<3.5-17.0)
[2021-11-18] MEDS: Etomidate 20 MG/10 ML VIAL IVPUSH (16:06)
[2021-11-18] MEDS: Succinylcholine Chloride 200 MG/10 ML VIAL 100 MG IVPUSH (16:07)
[2021-11-18] MEDS: fentaNYL citrate/PF 100 MCG/2 ML VIAL IVPUSH (16:08)
[2021-11-18] MEDS: Midazolam HCl/PF 2 MG/2 ML VIAL IVPUSH (16:13)
[2021-11-18 16:23] LABS: Appearance Urine CLEAR; Color Urine DK YELLOW; Glucose Urine UA NEG (NEG); Leukocyte Esterase Urine NEG (NEG); Nitrite Urine NEG (NEG); PH 5.5 (5.0-8.0); Specific Gravity - Urine >= 1.030 (1.005-1.025); Urine Blood NEG (NEG); Urine Ketones 5 MG/DL (NEG); Urine Protein NEG (NEG-TRACE)
[2021-11-18 16:26] LABS: COVID-19 Test Negative (Negative); IDNOW Serial# 55D5AD1C
[2021-11-18] MEDS: propofoL 1,000 MG/100 ML VIAL 20.76 MG IVCONT ×2 (16:30→23:27)
[2021-11-18] MEDS: Piperacillin Sodium/Tazobactam 3.375 GM in 0.9 % Sodium Chloride 50 ML IV (16:48)
[2021-11-18] MEDS: Chlorhexidine Gluc Oral Rinse 15 ML MOUTHWASH BUCCAL ×2 (17:36→23:28)
[2021-11-18] MEDS: Heparin Sodium,Porcine 5,000 UNIT/ML VIAL 5000 UNIT SUBCUT (17:36)
[2021-11-18] MEDS: Albumin Human 25 % 100 ML IV ×2 (17:36→18:40)
[2021-11-18] MEDS: Furosemide 200 MG in 0.9 % Sodium Chloride 80 ML IVCONT (17:37)
--- NOTE | 2021-11-18 20:06 | PC.NURSE ---
Addendum entered by Alexander Andrade RN 11/18/21 20:29: w/ stable BP lasix gtt restarted at 5mg/hr. Original Note: Pt arrived to unit at 1845 and transfered from stretcher to bed while RT giving breaths through ET tube 7.5 24cm upper lip, pt on prop at 20mcg/kg/min RASS -2, RLE ankle and everything distal erythema wrapped in gauze, SBRAD 50's BBB, BP 90/40 pt had 150ml urine formed from ED report till this point, levo was started at 0.05mcg/kg/min, albumin infusing. Vent settings ACVC rate 18, Vt 390, FiO2 50% PEEP 8 PP up to 50 lavaged and thick white large amt PP down to 35, ETCO2 40 SaO2 97%. pinpoint pupils pinpoint, mod- strength cough, moves uppper extremities. Bed locked, [employer] INST[employer]ER in at bedside, report given to night RN.
--- NOTE | 2021-11-18 20:08 | PHA.MEDREC ---
Pharmacy Consult ? Medication Reconciliation Pharmacy has completed the medication reconciliation.
--- NOTE | 2021-11-18 20:08 | PM.CCHP ---
History of Present Illness Date of Service: 11/18/21 Attending physician on admission: Cheikh Armenta Chief Complaint: Hypoxia The patient is a 60 year old female with a past medical history of hypertension, congestive heart failure, history is of PEs (on Eliquis ), pressure ulcers,? osteoarthritis, depression, recent C diff infection, and recent left knee replacement At [facility] and discharge to [facility].? Today she presented via ambulance to the emergency room, after the facility noted the patient was lethargic, with ?bluing of lips? and hypoxic with O2 sats 50% on room air.?? On arrival to the emergency room,? patient? was lethargic,? only able to? to follow brief commands, continued to be hypoxic to 85% on room air.? Was initially placed on BiPAP but required emergent intubation for worsening mental status and hypercapnia despite BiPAP support.? Laboratory data was significant for:? ABGs post bipap? 7.29/91/92/ 44.? Chloride 95 serum bicarb 37,? BUN 40, creatinine 2.23, BNP 405 Imaging:? Chest CT: Bilateral lower lobe collapse/consolidatio. Cardiomegaly and trace pleural effusions. In my review, ? enlarged esophagus, but no mention in report. Will have CT review in the am by radiology? Head CT: No acute bleed? Bilateral Venous doppler: No DVTs present? ED course:? patient issues he received naloxone for acute mental status with no effect.? She also received albumin, 1 L of fluid, Zosyn, and was started on Lasix drip.? ? Patient will be admitted to the ICU for? management of acute hypoxic and hypercapnic respiratory failure requiring ventilatory support Review of Systems Review of Systems: Unable to do, patient is intubated [facility] Social History Social History Household Members: Unknown / Unable to assess Housing: Unknown / Unable to assess Unable to assess alcohol history related to: Unknown Patient Tobacco Use Status: Tobacco use Unknown Use of substances other than those prescribed or required for medical reasons: Unable to respond Substance Use Type: Unknown Last Used Substance: Unknown Currently Displaying Signs/Symptoms of Drug Intoxication Withdrawal: No Any prior treatment program specific to substance use: No (intubated/sedated) Spiritual Healthcare Practices: intubated/sedated Zoroastrianism Healthcare Practices: intubated/sedated Cultural Healthcare Practices: intubated/sedated Advance Directives: No Advance Directives Information Provided: No Advance Directives on File: No (intubated/sedated) Nutrition Risks: On aspiration precautions Patient : No (intubated/sedated; 60 y/o) Poor oral hygiene: No Meds Allergies Allergy/AdvReac Type Severity Reaction Status Date / Time Unable to Assess Allergy Verified 11/18/21 15:21 Active Medications: Current Medications Acetazolamide (Acetazolamide Sodium 500 Mg Vial) 375 mg IVPUSH BID [facility] Chlorhexidine Gluconate (Chlorhexidine Gluc Oral Rinse 15 Ml Mouthwash) 15 ml BUCCAL Q8H [facility] Last Admin: 11/18/21 17:36 Dose: 15 ml Documented by: Famotidine (Famotidine/Pf 20 Mg/2 Ml Vial) 20 mg IVPUSH DAILY [facility] Heparin Sodium (Porcine) (Heparin Sodium,Porcine 5,000 Unit/Ml Vial) 5,000 unit SUBCUT Q8H [facility] Last Admin: 11/18/21 17:36 Dose: 5,000 unit Documented by: Propofol (Diprivan) 1,000 mg in 100 mls @ 0 mls/hr IVCONT .Q0M [facility]; Protocol Last Admin: 11/18/21 16:30 Dose: 20 mcg/kg/min, 20.76 mls/hr Documented by: Furosemide 200 mg/ Sodium (Chloride) 100 mls @ 2.5 mls/hr IVCONT .Q24H [facility] Last Admin: 11/18/21 17:37 Dose: 5 mg/hr, 2.5 mls/hr Documented by: Home Medications Medication Instructions Recorded Confirmed Last Taken Type Saccharomyces boulardii 250 mg 250 mg PO BID 11/18/21 11/18/21 Unknown History capsule acetaminophen 325 mg tablet 650 mg PO Q4H PRN 11/18/21 11/18/21 Unknown History amoxicillin 500 mg capsule 1,000 mg PO BID 11/18/21 11/18/21 Unknown History apixaban 5 mg tablet 5 mg PO BID 11/18/21 11/18/21 Unknown History aspirin 81 mg tablet,delayed 81 mg PO DAILY 11/18/21 11/18/21 Unknown History release atorvastatin 80 mg tablet 80 mg PO BEDTIME 11/18/21 11/18/21 Unknown History bupropion HCl 450 mg 24 hr tablet, 450 mg PO BEDTIME 11/18/21 11/18/21 Unknown History extended release carvedilol 12.5 mg tablet 12.5 mg PO BID 11/18/21 11/18/21 Unknown History cefadroxil 500 mg capsule 1,000 mg PO BID 11/18/21 11/18/21 Unknown History collagenase clostridium histo. 250 1 appl TOPICAL DAILY 11/18/21 11/18/21 Unknown History unit/gram topical ointment (Santyl) enalapril maleate 20 mg tablet 40 mg PO DAILY 11/18/21 11/18/21 Unknown History ferrous sulfate 325 mg (65 mg 325 mg PO DAILY 11/18/21 11/18/21 Unknown History iron) tablet furosemide 80 mg tablet 80 mg PO DAILY 11/18/21 11/18/21 Unknown History gabapentin 300 mg capsule 300 mg PO DAILY@1200 11/18/21 11/18/21 Unknown History gabapentin 300 mg capsule 600 mg PO BID 11/18/21 11/18/21 Unknown History insulin glargine 100 unit/mL (3 45 unit SUBCUT DAILY 11/18/21 11/18/21 Unknown History mL) subcutaneous pen insulin lispro 100 unit/mL 22 unit SUBCUT TIDAC 11/18/21 11/18/21 Unknown History subcutaneous pen insulin lispro 100 unit/mL See Protocol SUBCUT QIDACHS 11/18/21 11/18/21 Unknown History subcutaneous pen isosorbide dinitrate 40 mg 60 mg PO DAILY 11/18/21 11/18/21 Unknown History capsule,extended release lidocaine 4 % topical patch 1 patch TOPICAL BID 11/18/21 11/18/21 Unknown History magnesium citrate 150 ml PO DAILY PRN 11/18/21 11/18/21 Unknown History magnesium hydroxide 400 mg/5 mL 30 ml PO DAILY PRN 11/18/21 11/18/21 Unknown History oral suspension (Milk of Magnesia) megestrol 40 mg tablet 40 mg PO Q8H 11/18/21 11/18/21 Unknown History melatonin 3 mg tablet 3 mg PO BEDTIME 11/18/21 11/18/21 Unknown History metolazone 2.5 mg tablet 2.5 mg PO DAILY 11/18/21 11/18/21 Unknown History oxycodone 10 mg tablet 10 mg PO DAILY PRN 11/18/21 11/18/21 Unknown History oxycodone 10 mg tablet 10 mg PO TID 11/18/21 11/18/21 Unknown History polyethylene glycol 3350 17 gram 17 g PO DAILY PRN 11/18/21 11/18/21 Unknown History oral powder packet (Miralax) sennosides 8.6 mg tablet (senna) 16.2 mg PO DAILY PRN 11/18/21 11/18/21 Unknown History sertraline 100 mg tablet 200 mg PO DAILY 11/18/21 11/18/21 Unknown History tizanidine 4 mg tablet 4 mg PO Q8H PRN 11/18/21 11/18/21 Unknown History trazodone 50 mg tablet 25 mg PO BEDTIME PRN 11/18/21 11/18/21 Unknown History vancomycin 125 mg capsule 125 mg PO QID 11/18/21 11/18/21 Unknown History (Vancocin) Physical Exam Vital Signs: Vital Signs: Last Vital Signs Temp 98.2 F 11/18/21 20:00 Pulse 55 11/18/21 20:00 Resp 18 11/18/21 20:00 BP 151/72 H 11/18/21 20:00 Pulse Ox 94 11/18/21 20:00 BMI result Body Mass Index 57.9 ?General:?Patient is intuated.? ?HEENT:? Head is normocephalic, atraumatic, pupils equal round reactive to light accommodation bilaterally.? , Neck is supple ?Cardiac:? Clear S1-S2,no murmurs rubs or gallops. + 3 pitting edema on BLE. ?Pulmonary:? Patient intubated on AC 18/390/8/50%, satting 92-94%.. Lungs are rhonchi throughout all royal. ?Abdomen:?Protuberant, positive bowel sounds in all 4 quadrants.? Soft, nontender, no rebound or guarding.?? ?Musculoskeletal:? Moving all 4 extremities to painful stimuli ?Skin:? Patient has 60 a demetrio extending from left upper thigh to below knee. Right lower leg cellulitis. And right heel ulcer. ?Neurologic:? No focal deficits noted. Vascular:? 2+ pulses bilaterally Results Labs CBC and Chem 7: 11/18/21 15:27 11/18/21 15:27 Labs: Laboratory Results - last 24 hr 11/18/21 11/18/21 11/18/21 15:27 15:27 15:27 MCV 93.8 MCH 25.5 L MCHC 27.2 L RDW 17.6 H Plt Count 278 MPV 9.9 Immature Gran % (Auto) 0.5 H Neut % (Auto) 69.7 Lymph % (Auto) 16.7 L Yates % (Auto) 9.6 Eos % (Auto) 3.2 Baso % (Auto) 0.3 Lymph # (Auto) 1.7 Yates # (Auto) 1.0 Eos # (Auto) 0.3 Baso # (Auto) 0.0 Abs Immat Gran (auto) 0.05 H Absolute Neuts (auto) 7.1 Absolute Nucleated RBC 0.090 H Nucleated RBC % (auto) 0.9 H PT 20.2 H INR 1.8 H O2 Saturation ABG pH at Pt Temp ABG pCO2 at Pt Temp ABG pO2 at Pt Temp ABG HCO3 ABG Base Excess (Actual) Anion Gap 14 Estim Creat Clear Calc 45.0 Estimated GFR 22 Random Glucose 133 H Lactic Acid Calcium 8.5 Magnesium 2.7 H Total Bilirubin 0.4 Direct Bilirubin 0.2 AST 9 ALT 6 Alkaline Phosphatase 113 B-Natriuretic Peptide Total Protein 7.4 Albumin 3.7 Urine Color Urine Appearance Urine pH Ur Specific Novi Urine Protein Urine Glucose (UA) Urine Ketones Urine Blood Urine Nitrite Ur Leukocyte Esterase COVID-19 (LIS) COVID-19 Clin Com 11/18/21 11/18/21 11/18/21 15:27 15:27 15:27 MCV MCH MCHC RDW Plt Count MPV Immature Gran % (Auto) Neut % (Auto) Lymph % (Auto) Yates % (Auto) Eos % (Auto) Baso % (Auto) Lymph # (Auto) Yates # (Auto) Eos # (Auto) Baso # (Auto) Abs Immat Gran (auto) Absolute Neuts (auto) Absolute Nucleated RBC Nucleated RBC % (auto) PT INR O2 Saturation ABG pH at Pt Temp ABG pCO2 at Pt Temp ABG pO2 at Pt Temp ABG HCO3 ABG Base Excess (Actual) Anion Gap Estim Creat Clear Calc Estimated GFR Random Glucose Lactic Acid 1.1 Calcium Magnesium Total Bilirubin Direct Bilirubin AST ALT Alkaline Phosphatase B-Natriuretic Peptide 405 H Total Protein Albumin Urine Color Urine Appearance Urine pH Ur Specific Novi Urine Protein Urine Glucose (UA) Urine Ketones Urine Blood Urine Nitrite Ur Leukocyte Esterase COVID-19 (LIS) Negative COVID-19 Clin Com See Note 11/18/21 11/18/21 15:40 16:17 MCV MCH MCHC RDW Plt Count MPV Immature Gran % (Auto) Neut % (Auto) Lymph % (Auto) Yates % (Auto) Eos % (Auto) Baso % (Auto) Lymph # (Auto) Yates # (Auto) Eos # (Auto) Baso # (Auto) Abs Immat Gran (auto) Absolute Neuts (auto) Absolute Nucleated RBC Nucleated RBC % (auto) PT INR O2 Saturation 95.0 ABG pH at Pt Temp 7.29 L ABG pCO2 at Pt Temp 91 H* ABG pO2 at Pt Temp 92 ABG HCO3 44 H ABG Base Excess (Actual) 14.1 Anion Gap Estim Creat Clear Calc Estimated GFR Random Glucose Lactic Acid Calcium Magnesium Total Bilirubin Direct Bilirubin AST ALT Alkaline Phosphatase B-Natriuretic Peptide Total Protein Albumin Urine Color DK YELLOW Urine Appearance CLEAR Urine pH 5.5 Ur Specific Novi >= 1.030 H Urine Protein NEG Urine Glucose (UA) NEG Urine Ketones 5 Urine Blood NEG Urine Nitrite NEG Ur Leukocyte Esterase NEG COVID-19 (LIS) COVID-19 Clin Com Imaging Radiologist's Impressions: Impressions Chest X-Ray 11/18/21 16:12 IMPRESSION: Markedly hypoexpanded lungs with bibasilar atelectasis. ET tube appears to be present approximately 1.5 cm above the kyung. Head CT 11/18/21 16:50 IMPRESSION: No acute intracranial pathology. Chest CT 11/18/21 16:54 IMPRESSION: Bilateral lower lobe collapse/consolidation much more apparent on this exam than on the plain film. Cardiomegaly and trace pleural effusions. Fleischner guidelines were followed. Assessment and Plan (1) Acute exacerbation of congestive heart failure: Status: Acute (2) Acute respiratory failure with hypoxia and hypercapnia: Status: Acute (3) AMS (altered mental status): Status: Acute (4) Hypotension: Status: Acute (5) BERNIE (acute kidney injury): Status: Acute (6) Cellulitis: Status: Acute Plan Plan: Neuro:? ?Altered mental status-? likely from acute respiratory failure.? Cardiac:?? ?Congestive heart failure exacerbation:? patient BNP 402,? chest x-ray does show some congestion. ? Patient does not have echo in our system. She also? received 1.5 L in the emergency room.? Will add diamox. continue with Lasix drip.? ?Hypotension:? patient hypotensive at after intubation,? no signs of sepsis.? This is likely related to sedation medication and Lasix drip.?Wean off levophed as tolerated Pulmonary: ?Acute hypoxic and hypercapnic respiratory failure- require emergent intubation in the emergency room.? this is likely from Congestive heart failure exacerbation. No signs of acute? infectious respiratory process. ? Patient does have history of PEs? and is on Eliquis. ? Bilateral? venous Dopplers are negative for DVT.? But unable to get a chest CT angio? due to underlying BERNIE.? unable to completely rule out PE as cause of acute decompensation.? Will start patient on heparin drip ?Will continue to diurese.? Wean off vent as tolerated.? Renal:? ??BERNIE-? nonoliguric.? Likely hypoperfusion. ? Received 1.5 L in the emergency room.? Unable to give any more due to underlying Congestive heart failure exacerbation.? We will continue to trend? renal indices? closely Endo:?? ?No acute issues GI:?? ?No acute issues ID: ?Hx of cdiff-? according to paperwork from [facility],? patient had recent diagnosis of C diff. No elevated white count,? No diarrhea at this time.? Will? contact [facility] to check for vancomycin end date? ?Right lower extremity cellulitis:? patient was finishing a cefadroxil? course started on 11/14/2021.? We do not have cefadroxil in formulary.? Will give IV cefazolin instead? Heme/Onc:? No acute issues. Psych:? No acute issues. Miscellaneous:? No acute issues. Prophylaxis:? IV Heparin, ? Pepcid? CODE:? ? Full code ? Case reviewed with attending physician Dr Armenta? Critical Care Time Critical Care Time (minutes): 90
[2021-11-18] MEDS: propofoL 1,000 MG/100 ML VIAL 31.14 MG IVCONT (20:27)
--- NOTE | 2021-11-18 21:34 | W.PM.CCHP ---
Procedures Date of Service Date of Service: 11/18/21 Central Line Placement Right IJ: Central Line Comments: Right internal jugular central venous triple-lumen catheter emergently placed for vasopressor support under ultrasound guidance with no immediate complications. X-ray for line position is pending.
[2021-11-18] MEDS: acetaZOLAMIDE sodium 500 MG VIAL 375 MG IVPUSH (22:00)
[2021-11-18 22:51] LABS: Venous Blood Gas Refer to POC result
[2021-11-18 22:51] LABS: VBG Base Excess 16.5 mmol/L; VBG HCO3 41 mmol/L (22-26); VBG pCO2 53 mmHg; VBG pO2 59 mmHg
[2021-11-18 22:55] LABS: INTERNATIONAL NORM RATIO 1.7 (0.9-1.1); Prothrombin Time 19.7 SEC (9.9-13.0)
[2021-11-18 22:58] LABS: PTT Heparin Drip 31.8 SEC (53-77.9)
[2021-11-18 23:07] LABS: ABG Refer to POC result
[2021-11-18] MEDS: Heparin Sodium,Porcine/1/2NS 25,000 UNIT/250 ML IV.SOLN 10 UNIT IVCONT (23:10)
[2021-11-19] VITALS (31 sets, daily range): BP systolic 98–153; BP diastolic 40–68; PULSE 52–99; RESP 18–22; TEMP 34.9–37.9; O2SAT 89–99; BMI 57.1
[2021-11-19 01:32] LABS: Glucose, Whole Blood 55 mg/dL (60-115)
[2021-11-19 02:03] LABS: Glucose, Whole Blood 106 mg/dL (60-115)
--- NOTE | 2021-11-19 02:31 | PC.NURSE ---
Assumed care at about 19:30, Patient was getting Central line placed, and this was successfully placed on a third try after MD came in to place it. Patient was heavily sedated, with propofol at 30mcg/kg/min. This was down-titrated to 20 after procedures finished. Patient with no cough, no gag. Reacts to noxious stimuli. Patient with briskly reactive pupils at 3 mm. Oral secretions and inline secretions minimal. #7.5 Ett is 24 cm at the lip; AC/VC settings 18/390/50%/8; Peak pressures around 23. RR 18-19, synchronous with vent. Patient with distant heart sounds. BP soft, but very responsive to levophed. This was titrated off at one point but BP dropped, and has been requiring 0.01 mcg/kg/min levophed for some time now. Patient with sinus bradycardia and BBB on monitor. Continues on lasix gtt 5 mg/hour. Patient started on heparin gtt approximately at 23:00; no bolus per SHANK INSPECTOR. Next PTT-HD at 05:00. Patient with no signs of bleeding. Heparin gtt for history of PE. History was reviewed in paper chart from [facility] and [facility] staff nurse was called. Orders say patient was on eliquis for history of a-fib, which is not in her history. Positive history of PE. Patient was on amoxicillin per ortho at [facility] with end date to be determined. SHANK INSPECTOR requested call to [facility], and staff nurse at [facility] reported that the amoxicillin per ortho was to be continued indefinitely, and this was relayed to SHANK INSPECTOR and new order for amoxicillin. Patient was also on Cefedroxil at [facility]. Here she is continued on Ancef 1 Gm Q12 hours IV. Patient is getting diamox in addition to her Lasix gtt. Diuresed about 750 ccs concentrated tammie urine. Patient with left knee replacement recent history, incision with 68 demetrio, intact, not reddened, well approximated. Patient does have a chronic ulcer to her right heel lateral aspect, with eschar--diabetic ulcer per record, appears possbily pressure related, photographed. Similar ulcer left upper thigh with pink perimeter and eschar/maldonado wound bed. Reddened open area to right buttock. +2 Pitting edema to the right ankle/foot. OGt positive placement, no diet ordered. Diabetic patient with basline glargine 45 U SQ daily and Lispro 22 U with meals plus sliding scale; no insulin ordered here; discussed with SHANK INSPECTOR and POC ordered Q6 hours. First POC was 55 mg/dL. 1 amp of D50% given with good effect, followup POCT was 106.
[2021-11-19 03:41] LABS: Glucose, Whole Blood 68 mg/dL (60-115)
[2021-11-19] MEDS: Dextrose 10 % 1,000 ML 20 ML IVCONT (03:56)
[2021-11-19] MEDS: propofoL 1,000 MG/100 ML VIAL 20.76 MG IVCONT ×2 (04:01→18:25)
[2021-11-19 04:53] LABS: Glucose, Whole Blood 71 mg/dL (60-115)
[2021-11-19 05:33] LABS: VBG HCO3 36 mmol/L (22-26); VBG pCO2 46 mmHg; VBG pO2 39 mmHg
[2021-11-19 05:36] LABS: Venous Blood Gas Refer to POC result
[2021-11-19 05:48] LABS: MANUAL DIFF FLAG NO
[2021-11-19 05:53] LABS: Basophils Percent Auto 0.3 % (0-2); Eosinophils Absolute Auto 0.3 X10*3/uL (0.0-0.4); Hematocrit 30.1 % (37.0-47.0); Hemoglobin 8.2 g/dl (12.0-16.0); Imm Gran Abs Auto 0.06 X10*3/uL (0.00-0.03); Imm Gran Pct Auto 0.6 % (0.0-0.4); Lymphocytes Percent Auto 20.3 % (20-40); Mean Corpuscular HGB Conc 27.2 g/dl (31.0-35.0); Mean Corpuscular Hemoglobin 25.2 pg (27.0-33.0); Mean Corpuscular Volume 92.6 fL (80.0-98.0); Mean Platelet Volume 10.6 fL (9.4-12.3); Monocytes Absolute Auto 0.8 X10*3/uL (0.1-1.2); NRBC Pct Auto 0.3 /100WBC (0.0-0.2); Neutrophils Absolute Auto 6.8 x10*3/uL (2.0-8.3); Neutrophils Percent Auto 67.8 % (45-73); Platelet Count 251 X10*3/uL (160-400); Red Blood Count 3.25 X10*6/uL (4.20-5.50); Red Cell Distribution Width 17.5 % (11.0-16.0)
[2021-11-19 05:59] LABS: PTT Heparin Drip 36.2 SEC (53-77.9)
[2021-11-19 06:10] LABS: Alanine Aminotransferase 6 U/L (0-31); Albumin Level 3.4 g/dL (3.5-5.0); Alkaline Phosphatase 92 U/L (39-117); Anion Gap 17 (12-20); Aspartate Amino Transferase 10 U/L (5-31); Bilirubin Total 0.5 mg/dL (0.0-1.0); Blood Urea Nitrogen 40 mg/dL (9-16); Calcium 8.4 mg/dL (8.4-10.2); Carbon Dioxide 34 mmol/L (22-29); Chloride 95 mmol/L (96-108); Creatinine Clr Calc Pharmacy 47.8; Estimated Glomerular Filt Rate 24; Glucose Random 76 mg/dL (60-115); Magnesium 2.4 mg/dL (1.6-2.6); Phosphorus 4.3 mg/dL (2.7-4.5); Potassium 3.8 mmol/L (3.3-5.1); Sodium 142 mmol/L (135-145); Total Protein 6.4 g/dL (6.5-8.0)
[2021-11-19] MEDS: Heparin Sodium,Porcine 5,000 UNIT/ML VIAL 10000 UNIT IVPUSH (06:31)
[2021-11-19] MEDS: propofoL 1,000 MG/100 ML VIAL 31.14 MG IVCONT ×4 (07:55→22:52)
[2021-11-19] MEDS: Amoxicillin 500 MG CAPSULE 1000 MG PO ×2 (08:26→21:03)
[2021-11-19] MEDS: acetaZOLAMIDE sodium 500 MG VIAL 375 MG IVPUSH ×2 (08:26→21:02)
[2021-11-19] MEDS: Famotidine/PF 20 MG/2 ML VIAL IVPUSH (08:26)
[2021-11-19] MEDS: Chlorhexidine Gluc Oral Rinse 15 ML MOUTHWASH BUCCAL ×2 (08:26→15:32)
[2021-11-19 08:44] LABS: ABG Base Excess 11.5 mmol/L; ABG HCO3 35 mmol/L (22-26); ABG pCO2 46 mmHg (32-45); ABG pH 7.49 (7.35-7.45); ABG pO2 65 mmHg (83-108)
--- NOTE | 2021-11-19 10:19 | PC.NURSE ---
Skin/wound assessment completed today. Patient has an abrasion to her left upper thigh, thin layer of Triad applied to wound bed only covered with foam dressing. Jackie barrier cream applied to buttocks and sacrum stage 2 pressure injuries with small openings. Patient also has a stage 2 to right heel-oil immulsion dressing applied covered with foam dressing. Turning and repositioning is occurring q 2 h. Will follow closely.
--- NOTE | 2021-11-19 10:24 | MHC.CLN ---
RE: CONSULT PT IS INTUBATED AND SEDATED PT WITH INCREASED NUTRITION NEEDS R/T PRESSURE INJURIES RECOMMEND PROMOTE TF AT MAX GOAL RATE 45ML/HR WITH 30ML PROSOURCE BID AND 240ML FREE WATER FLUSHES Q 8HRS TO PROVIDE 1200KCALS (2021KCALS WITH SEDATION; 31.6KCALS/KG BASED ON IBW), 97G PROTEIN (1.5G/KG), 1626ML TOTAL WATER FROM FORMULA AND FLUSHES (25ML/KG BASED ON IBW) MONITOR TOLERANCE, RESIDUALS AND LYTES SEE ALSO FULL CLINICAL NUTRITION ASSESSMENT
--- NOTE | 2021-11-19 10:30 | CA_ITS ---
Transthoracic Echocardiogram Patient (Last, First, Middle): Bonnie Das, Gender: Female Date of : 1960 Age: 60 Procedure Date: 11/19/2021 Procedure Type: Transthoracic Echocardiogram Location: ICU Height: 172.72 cm Weight: 170.1 kg BSA: 2.67 m2 Heart Rate: bpm BP: 151 / 60 mmHg Vocational Coordinator: Referring MD: Cheikh Armenta MD Symptoms: dyspnea Study Quality: Fair ECG Rhythm: Sinus Conclusions: - 1. Technically limited study 2. Normal LV systolic function with mild LVH with severe asymmetric septal hypertrophy with impaired relaxation filling pattern 3. Dilated right ventricle 4. Normal cardiac valvular Doppler although limited 5. Normal RV systolic pressure 6. No gross pericardial effusion Findings Procedure Information Contrast agent, definity, is being given per protocol without apparent complications. Left Ventricle Normal left ventricular cavity size. There is mildly increased left ventricular wall thickness. The left ventricular systolic function is normal. The visually estimated ejection fraction is between 55-60%. There is paradoxical septal motion consistent with a left bundle branch block. Spectral Doppler is indicative of an impaired relaxation filling pattern. E/E prime ratio is between 8 and 15 consistent with indeterminate filling pressures. There is severe septal asymmetric hypertrophy. Right Ventricle Moderately increased right ventricular cavity size. There is normal right ventricular systolic function. Atria The left atrium is likely dilated. There is lipomatous hypertrophy of the interatrial septum. Interatrial shunt cannot be excluded. The right atrium was not well visualized. Aortic Valve The aortic valve was not well visualized. There is no aortic valve stenosis. There is no aortic valve regurgitation. Mitral Valve The mitral valve was not well visualized. There is trace mitral valve regurgitation. There is no mitral valve stenosis. Pulmonic Valve The pulmonic valve was not well visualized. Tricuspid Valve The tricuspid valve was not well visualized. The right ventricular systolic pressure is normal. Great Vessels All visible segments of the aorta are normal in size. The pulmonary artery was not well visualized. Venous The inferior vena cava is normal in size and collapses less than 50% with inspiration. Pericardium/Pleural There is no evidence of pericardial effusion. Prior Study Comparison No prior study available for comparison. Measurements 2D Linear Measurements IVSd: 1.80 0.6-0.9/0.6-1.0 cm LVIDd: 3.92 3.9-5.3/4.2-5.9 cm LVIDd Index: 1.47 2.4-3.2/2.2-3.1 cm/m2 LVIDs: 2.27 2.0-3.6 cm LVPWd: 1.36 0.7-1.1 cm Ao Root: 3.40 2.1-3.5 cm LA Diam: 3.90 2.7-3.8/3.0-4.0 cm LAIDs Index: 1.46 1.5-2.3 cm/m2 LV Mass: 379.62 67-162/88-224 g LV Mass Index: 142.18 43-95/49-115 g/m2 LVOT Diam: 2.40 3.0+(-)1.3 cm Mitral Valve MV Pk E: 0.86 MV PK A: 1.10 MV Decel Time: 217.00 E/A: 0.80 E'Lateral: 11.10 E'Medial: 4.90 E/E' Med: 17.60 E/E' Lat: 7.80 PHT: 63.00 MVA PHT: 3.49 Decel [place]: 3.98 Aortic Valve AoV Pk Sunny: 1.95 AoV Mn Sunny: 1.38 AoV VTI: 0.42 AoV Pk Grad: 15.00 Aov Mn Grad: 9.00 DEL Cont.VTI: 2.69 LVOT LVOT Pk Sunny: 1.23 LVOT Mn Sunny: 0.91 LVOT VTI: 0.25 LVOT Pk Grad: 6.00 LVOT Mn Grad: 4.00 LVOT Diam: 2.40 LVOT Area: 4.52 Diastolic Function MV Pk E: 0.86 MV Pk A: 1.10 E/A: 0.80 E'Medial: 4.90 E/E' Med: 17.60 E' Laterial: 11.10 E/E' Lat: 7.80 Right Ventricle TAPSE (mm): 34.00 TVS' Sunny: 18.00 Tricuspid Valve TR Pk Sunny: 1.90 TR Pk Grad: 14.00 Great Vessels Aorta Ao Root-2D: 3.40 2.0-3.7 cm Ao Asc: 3.60 2.1-3.4 cm Pulmonary Valve PV Pk Sunny: 1.36 Peak PV Grad: 7.00 Updated in Other Vendor System with Status of Final Steffen Yi MD electronically signed on 11/19/2021 5:10:14 PM with status of Final
--- NOTE | 2021-11-19 12:19 | MHC.CM.PN ---
IMM 11/19/21 Provided to HCP/Spouse He verbalized understanding of the IMM Patient YENI from [facility]. Info for documentation has been obtained from the Pts spouse, Miah. The EMR was also used for documentation. The Pt was Hypoxic at the SNF, they called 911. Prior to STR she had L TKR at [facility]. PMH 4years ago the Pt had a TKR. She had many infections, the joint was removed. The pt was bed bound for 3 years without a L knee joint. The date of the new TRK is unknown. Aubree are CDI, no ss infection. Records have been requested from [facility]. T/W spoke with the DON 12pm today. The Fax machine was down yesterday, day of transfer. No records were received. She will arrange for records to be faxed to ICU. The Fax # was provided. This information was reported to Dr Aguila.
--- NOTE | 2021-11-19 12:57 | P.CDIC_ITS ---
CDI Concurrent Query Documentation Clarification: PHYSICIAN'S DOCUMENTATION REQUEST Date of Query: 11/19/21 1257 Patient Name: Bonnie Das Admit Date: 11/18/21 Dear Doctor, A review of the medical record indicates additional documentation may be needed. Please review below and update the documentation accordingly. Clinical Indicators: Risk Factors/Clinical Indicators/Treatments BNP 405 PMH:CHF Per H&P: Acute Exacerbation CHF Lasix drip Please provide further specificity regarding the most likely type and acuity of CHF you are evaluating, treating, or monitoring. Examples include: Type: * Systolic * Diastolic * Combined Systolic/Diastolic * Other ? please specify * Unable to determine Acuity: * Acute * Chronic * Acute on chronic * Unable to determine Use of terms such as suspected, likely, concern for, or probable (associated with a specific diagnosis that is being evaluated, monitored, or treated as if it exists) are acceptable and can be coded in the inpatient setting, when documented at the time of discharge. Thank you, Sarah Cannon RN Extension: [phone] Please use your independent medical judgment in providing your response. THIS QUERY IS PART OF THE PERMANENT MEDICAL RECORD Provider Response: Other Other Diagnosis: Please send this to Dr. Armenta.
--- NOTE | 2021-11-19 12:59 | P.CDIC_ITS ---
CDI Concurrent Query Documentation Clarification: PHYSICIAN'S DOCUMENTATION REQUEST Date of Query: 11/19/21 1300 Patient Name: Bonnie Das Admit Date: 11/18/21 Dear Doctor, A review of the medical record indicates additional documentation may be needed. Please review below and update the documentation accordingly. Clinical Indicators: The following information is noted in the medical record: Risk Factors/Clinical Indicators/Treatments Per ED: weakness, unresponsive, altered mental status, lethargic CT head: no acute intracranial pathology Based on the above, could you clarify in the Progress Notes which, if any of the following, best reflects the patient's level of consciousness? * Unconscious * Comatose * Persistent vegetative state * Transient level of awareness * Encephalopathy (specify type: Toxic, Metabolic, Septic, Hypertensive etc) * Other (please specify) * Unable to determine Use of terms such as suspected, likely, concern for, or probable (associated with a specific diagnosis that is being evaluated, monitored, or treated as if it exists) are acceptable and can be coded in the inpatient setting, when documented at the time of discharge. Thank you, Sarah Cannon RN Extension: [phone] Please use your independent medical judgment in providing your response. THIS QUERY IS PART OF THE PERMANENT MEDICAL RECORD Provider Response: Other Other Diagnosis: Toxic and metabolic encephalopathy, as noted in my progress note.
[2021-11-19 14:43] LABS: Glucose, Whole Blood 71 mg/dL (60-115)
[2021-11-19] MEDS: Heparin Sodium,Porcine/1/2NS 25,000 UNIT/250 ML IV.SOLN 17.07 UNIT IVCONT (15:30)
[2021-11-19] MEDS: Doxycycline Hyclate 100 MG in 0.9 % Sodium Chloride 250 ML 166.67 MG IV (15:32)
--- NOTE | 2021-11-19 15:56 | PM.CCPN ---
Subjective Subjective Date of Service: 11/19/21 Interval History: Mrs. Das was admitted to ICU last night after being intubated in the ED for acute hypoxemic and hypercapnic respiratory failure. The patient is a 60-year-old woman with PMHx of left TKA about four years ago that became infected.? She was treated with antibiotics for a year in an effort to save the joint.? During that time she had an upper extremity PE from a PICC line, and was started on Eliquis.? After failing a year of abx, the joint was removed and a spacer placed, after which she was completely bedbound for three years.? On 10/23/21, she underwent redo left TKR at [facility].? She was transferred to [facility] for rehab on 11/07. Her PMHx also includes hypertension, congestive heart failure, pressure ulcers, osteoarthritis, and depression.? I spoke with a nurse junior account manager at [facility] this afternoon.? She told me that the patient also had recent C diff infection for which she?s on oral vancomycin; recent cellulitis for which she started amoxicillin and cefadroxil on November 14; and neuropathy for which she?s on gabapentin 1500 mg daily since admission to [facility].? The earliest chemistries that [facility] had were from November 12, at which time her BUN and creatinine were 31/1.39.? The patient was on Lasix 80 mg daily with metolazone 2.5 mg daily. HISTORY OF PRESENT ILLNESS: Yesterday the patient was BIBA to the ED after being found lethargic, cyanotic and hypoxemic at [facility].? On arrival to the emergency room, she was lethargic, with Sat 85% on room air.? No response to naloxone.? Was initially placed on BiPAP but required emergent intubation for worsening mental status and hypercapnia. Labs were notable for white count 10.1, hemoglobin 9.4, serum bicarb 37, BUN/creatinine of 40/2.2, albumin was 3.7, Trop 12, BNP was 405.? ABG post bipap? 7.//92/44 (unspecified FiO2).? (We have no prior laboratory data in our [facility] records.)? Head CT showed no acute bleed.? Noncontrast chest CT showed bilateral lower lobe shmutz, with trace pleural effusions.? Venous Doppler showed no DVTs. She was given albumin, 1 L of fluid, Zosyn, and was started on a Lasix drip. ?She was admitted to ICU for further management.? Amoxicillin was added since patient was on chronic suppressive therapy at [facility]. On my exam this morning, the patient is moderately sedated on propofol at 30 ug.? Grimaces to light stimulation.? She?s also on Lasix 5mg/hr, Heparin gtt, and D10W @ 20cc/hr, plus tube feeds at 20cc/hr.? Tmax 100.2?.? Heart rate 70, sinus rhythm.? Blood pressure 136/52.? On assist control 18/390/45/+5, RR 20, Ve 7.9L, PIP 21cm, ETCO2 37mm, Sat 90%.? PERRL, about 3.5mm.? Her head and neck habitus are very suggestive of SMILEY.? No JVD at 30 degrees, chest clear to auscultation with normal expiratory phase, heart rate and rhythm are regular, with normal-sounding S1 and S2, with no murmur or gallops, the abdomen is obese and benign, she has about 1+ pitting edema.? On the left lower extremity, she has about a 16 in stapled incision centered on the knee; the incision margins are clean and non-erythematous.? On the right lower leg, she has a 6-8? diameter area of mild cellulitis on the anterior mid mcmahon.? She has mult wounds, on her sacrum/buttocks, her perineum, and her right heel. LABORATORY DATA:? Below.? Notably, creatinine this morning is down to 2.08. ECHOCARDIOGRAM done by the [facility], interpreted by me.? Findings: - normal LV size and contractility. - mildly enlarged RV with RV:LV cavity ratio 0.8-0.9.? Normal RV function. - No AI - 1+ MR - No TR - IVC 2.2 cm with no insp collapse. IMPRESSION: 1. Underlying morbid obesity. 2. Likely underlying obesity hypoventilation syndrome.? Her head and neck habitus are very suggestive of SMILEY, and her admitting serum bicarb level was 37, with marked hypercapnia on her arterial blood gas.? On the other hand, her metabolic alkalosis could also be 2? vigorous diuresis. 3. Status post redo left TKA.? The wound looks perfect, no evidence of infection.? Need to keep PT actively involved. 4. History of congestive heart failure.? 2? LV DDx if anything, but she could also have mild RHF.? Undoubtedly why she was on the diuretics, Coreg, and enalapril. ?We?ll continue the Lasix infusion. 5. Altered mental status on admission.? Presumably toxic/metabolic encephalopathy, most likely 2? to either the hypercarbia, the gabapentin (with her BERNIE), or a combination of both.? We?ve stopped the gabapentin.? Hopefully she?ll wake up by tomorrow. 6. BERNIE. ?Could be ATN vs hypovolemia.? And very possible that, with her worsening renal indices since she arrived at [facility], she developed toxic encephalopathy from the gabapentin bec the dose was not adjusted.? If renal indices are not improved further by tomorrow, I?ll get a renal ultrasound to rule out obstruction. ?Unlikely though, given the large volume of urine she?s currently making on a Lasix drip at 5mg/hr. 7. Acute hypoxemic and hypercapnic respiratory failure.? Secondary to above factors (hypoventilation and depressed mental status).? The chest CT is unimpressive.? I don?t think she has significant pneumonia, altho some degree of aspiration cannot be ruled out.? I?ve increased her PEEP to 10cm. 8. Anticoagulation.? Continuing anticoagulation bec of h/o PE and high risk.? Doubt PE is of current physiologic importance, andreia with trop of 12, altho with enlarged RV and elevated BNP, cannot conclusively rule it out without a scan.? Which I don?t think is necessary. 9. ID:? Clearly has a cellulitis of the anterior right lower leg. ?We?ll change abx to ceftriaxones.? Given the mild erythema, I?m guessing that the cellulitis is improving, so it?s not likely MRSA.? Nonetheless, I?ll give her two days of doxycycline.? She?s not septic. 10. H/o CDiff.? I?ll give her 6 more doses of oral vancomycin. 11. Metabolic alkalosis.? As noted above. 12. Hypogylcemia.? Unclear etiology.? Liver indices are OK, and she?s not septic.? Hasn?t received any Lantus here, and she?s been here for at least 24 hrs.? Continue D10W until the hypoglycemia resolves. 13. Nutrition:? Started on tube feed this morning. Critical care time (including blanca d/w case advocate, blanca d/w pharmacy):? 2+ hrs. Critical Care Time (minutes): 120 Physical Exam Vital Signs: Vital Signs: Last Vital Signs Temp 100.0 F 11/19/21 15:00 Pulse 72 11/19/21 15:00 Resp 22 H 11/19/21 15:00 BP 151/55 H 11/19/21 15:00 Pulse Ox 92 11/19/21 15:00 BMI result Body Mass Index 57.1 Objective Data Labs CBC & Chem 7: 11/19/21 05:27 11/19/21 05:27 Labs: Laboratory Results - last 24 hr 11/18/21 11/18/21 11/18/21 15:27 15:27 16:17 WBC RBC Hgb Hct MCV MCH MCHC RDW Plt Count MPV Immature Gran % (Auto) Neut % (Auto) Lymph % (Auto) [place] % (Auto) Eos % (Auto) Baso % (Auto) Lymph # (Auto) [place] # (Auto) Eos # (Auto) Baso # (Auto) Abs Immat Gran (auto) Absolute Neuts (auto) Absolute Nucleated RBC Nucleated RBC % (auto) PT INR aPTT Heparin Protocol O2 Saturation ABG pH at Pt Temp ABG pCO2 at Pt Temp ABG pO2 at Pt Temp ABG HCO3 ABG Base Excess (Actual) VBG pH VBG pCO2 VBG pO2 VBG HCO3 VBG O2 Saturation VBG Base Excess Sodium Potassium Chloride Carbon Dioxide Anion Gap BUN Creatinine Estim Creat Clear Calc Estimated GFR POC Glucose Random Glucose Calcium Phosphorus Magnesium Total Bilirubin AST ALT Alkaline Phosphatase Troponin I High Sens 12.4 B-Natriuretic Peptide 405 H Total Protein Albumin Urine Color DK YELLOW Urine Appearance CLEAR Urine pH 5.5 Ur Specific Siren >= 1.030 H Urine Protein NEG Urine Glucose (UA) NEG Urine Ketones 5 Urine Blood NEG Urine Nitrite NEG Ur Leukocyte Esterase NEG COVID-19 (LIS) Negative COVID-19 Clin Com See Note 11/18/21 11/18/21 11/18/21 17:34 22:40 22:44 WBC RBC Hgb Hct MCV MCH MCHC RDW Plt Count MPV Immature Gran % (Auto) Neut % (Auto) Lymph % (Auto) [place] % (Auto) Eos % (Auto) Baso % (Auto) Lymph # (Auto) [place] # (Auto) Eos # (Auto) Baso # (Auto) Abs Immat Gran (auto) Absolute Neuts (auto) Absolute Nucleated RBC Nucleated RBC % (auto) PT 19.7 H INR 1.7 H aPTT Heparin Protocol 31.8 L O2 Saturation 92.0 ABG pH at Pt Temp 7.49 H ABG pCO2 at Pt Temp 46 H ABG pO2 at Pt Temp 65 L ABG HCO3 35 H ABG Base Excess (Actual) 11.5 VBG pH 7.50 H VBG pCO2 53 VBG pO2 59 VBG HCO3 41 H VBG O2 Saturation 88.0 VBG Base Excess 16.5 Sodium Potassium Chloride Carbon Dioxide Anion Gap BUN Creatinine Estim Creat Clear Calc Estimated GFR POC Glucose Random Glucose Calcium Phosphorus Magnesium Total Bilirubin AST ALT Alkaline Phosphatase Troponin I High Sens B-Natriuretic Peptide Total Protein Albumin Urine Color Urine Appearance Urine pH Ur Specific Siren Urine Protein Urine Glucose (UA) Urine Ketones Urine Blood Urine Nitrite Ur Leukocyte Esterase COVID-19 (LIS) COVID-19 [employer] Com 11/19/21 11/19/21 11/19/21 01:28 01:58 03:37 WBC RBC Hgb Hct MCV MCH MCHC RDW Plt Count MPV Immature Gran % (Auto) Neut % (Auto) Lymph % (Auto) [place] % (Auto) Eos % (Auto) Baso % (Auto) Lymph # (Auto) [place] # (Auto) Eos # (Auto) Baso # (Auto) Abs Immat Gran (auto) Absolute Neuts (auto) Absolute Nucleated RBC Nucleated RBC % (auto) PT INR aPTT Heparin Protocol O2 Saturation ABG pH at Pt Temp ABG pCO2 at Pt Temp ABG pO2 at Pt Temp ABG HCO3 ABG Base Excess (Actual) VBG pH VBG pCO2 VBG pO2 VBG HCO3 VBG O2 Saturation VBG Base Excess Sodium Potassium Chloride Carbon Dioxide Anion Gap BUN Creatinine Estim Creat Clear Calc Estimated GFR POC Glucose 55 L* 106 68 Random Glucose Calcium Phosphorus Magnesium Total Bilirubin AST ALT Alkaline Phosphatase Troponin I High Sens B-Natriuretic Peptide Total Protein Albumin Urine Color Urine Appearance Urine pH Ur Specific Siren Urine Protein Urine Glucose (UA) Urine Ketones Urine Blood Urine Nitrite Ur Leukocyte Esterase COVID-19 (LIS) COVID-19 Clin Com 11/19/21 11/19/21 11/19/21 04:49 05:26 05:27 WBC RBC Hgb Hct MCV MCH MCHC RDW Plt Count MPV Immature Gran % (Auto) Neut % (Auto) Lymph % (Auto) [place] % (Auto) Eos % (Auto) Baso % (Auto) Lymph # (Auto) [place] # (Auto) Eos # (Auto) Baso # (Auto) Abs Immat Gran (auto) Absolute Neuts (auto) Absolute Nucleated RBC Nucleated RBC % (auto) PT INR aPTT Heparin Protocol 36.2 L O2 Saturation ABG pH at Pt Temp ABG pCO2 at Pt Temp ABG pO2 at Pt Temp ABG HCO3 ABG Base Excess (Actual) VBG pH 7.50 H VBG pCO2 46 VBG pO2 39 VBG HCO3 36 H VBG O2 Saturation 62.0 VBG Base Excess 12.0 Sodium Potassium Chloride Carbon Dioxide Anion Gap BUN Creatinine Estim Creat Clear Calc Estimated GFR POC Glucose 71 Random Glucose Calcium Phosphorus Magnesium Total Bilirubin AST ALT Alkaline Phosphatase Troponin I High Sens B-Natriuretic Peptide Total Protein Albumin Urine Color Urine Appearance Urine pH Ur Specific Siren Urine Protein Urine Glucose (UA) Urine Ketones Urine Blood Urine Nitrite Ur Leukocyte Esterase COVID-19 (LIS) COVID-19 Clin [facility] 11/19/21 11/19/21 11/19/21 05:27 05:27 12:31 WBC 10.0 RBC 3.25 L Hgb 8.2 L Hct 30.1 L MCV 92.6 MCH 25.2 L MCHC 27.2 L RDW 17.5 H Plt Count 251 MPV 10.6 Immature Gran % (Auto) 0.6 H Neut % (Auto) 67.8 Lymph % (Auto) 20.3 [place] % (Auto) 8.0 Eos % (Auto) 3.0 Baso % (Auto) 0.3 Lymph # (Auto) 2.0 [place] # (Auto) 0.8 Eos # (Auto) 0.3 Baso # (Auto) 0.0 Abs Immat Gran (auto) 0.06 H Absolute Neuts (auto) 6.8 Absolute Nucleated RBC 0.030 H Nucleated RBC % (auto) 0.3 H PT INR aPTT Heparin Protocol 59.0 D O2 Saturation ABG pH at Pt Temp ABG pCO2 at Pt Temp ABG pO2 at Pt Temp ABG HCO3 ABG Base Excess (Actual) VBG pH VBG pCO2 VBG pO2 VBG HCO3 VBG O2 Saturation VBG Base Excess Sodium 142 Potassium 3.8 D Chloride 95 L Carbon Dioxide 34 H Anion Gap 17 BUN 40 H Creatinine 2.08 H Estim Creat Clear Calc 47.8 Estimated GFR 24 POC Glucose Random Glucose 76 Calcium 8.4 Phosphorus 4.3 Magnesium 2.4 Total Bilirubin 0.5 AST 10 ALT 6 Alkaline Phosphatase 92 Troponin I High Sens B-Natriuretic Peptide Total Protein 6.4 L Albumin 3.4 L Urine Color Urine Appearance Urine pH Ur Specific Siren Urine Protein Urine Glucose (UA) Urine Ketones Urine Blood Urine Nitrite Ur Leukocyte Esterase COVID-19 (LIS) COVID-19 [employer] Com 11/19/21 13:59 WBC RBC Hgb Hct MCV MCH MCHC RDW Plt Count MPV Immature Gran % (Auto) Neut % (Auto) Lymph % (Auto) [place] % (Auto) Eos % (Auto) Baso % (Auto) Lymph # (Auto) [place] # (Auto) Eos # (Auto) Baso # (Auto) Abs Immat Gran (auto) Absolute Neuts (auto) Absolute Nucleated RBC Nucleated RBC % (auto) PT INR aPTT Heparin Protocol O2 Saturation ABG pH at Pt Temp ABG pCO2 at Pt Temp ABG pO2 at Pt Temp ABG HCO3 ABG Base Excess (Actual) VBG pH VBG pCO2 VBG pO2 VBG HCO3 VBG O2 Saturation VBG Base Excess Sodium Potassium Chloride Carbon Dioxide Anion Gap BUN Creatinine Estim Creat Clear Calc Estimated GFR POC Glucose 71 Random Glucose Calcium Phosphorus Magnesium Total Bilirubin AST ALT Alkaline Phosphatase Troponin I High Sens B-Natriuretic Peptide Total Protein Albumin Urine Color Urine Appearance Urine pH Ur Specific Siren Urine Protein Urine Glucose (UA) Urine Ketones Urine Blood Urine Nitrite Ur Leukocyte Esterase COVID-19 (LIS) COVID-19 Clin Com Quality Stroke Does the patient have a stroke diagnosis?: No VTE Prior VTE?: Yes VTE Risk Level:: Medical - moderate - high VTE Device Contraindication: Treatment Not Indicated VTE Drug Contraindication: N/A - Med Ordered Critical Care Time Critical Care Time (minutes): 120
[2021-11-19] MEDS: Isosorbide Dinitrate 20 MG TABLET PO (17:31)
[2021-11-19] MEDS: Furosemide 200 MG in 0.9 % Sodium Chloride 80 ML IVCONT (17:36)
[2021-11-19 17:47] LABS: Glucose, Whole Blood 103 mg/dL (60-115)
--- NOTE | 2021-11-19 18:47 | PC.NURSE ---
WOUND RN BEDSIDE AT START OF SHIFT TO ASSESS AND DOCUMENT WOUNDS. SEE CHART. TMAX 100.2 LEVOPHED REMAINED OFF SINCE 0818 D10 INCREASED PER MD BY VERBAL ORDER TO 50 ML/HR. HEPARIN GTT HAS FIRST NO CHANGE. NEXT PTT-HD AT 1930. TUBE FEEDS STARTED ORDERED. CURRENTLY AT 30 ML/HR. WILL PASS ONTO ONCOMING NURSE TO CONTINUE TO TITRATE ORDERED AND TOLERATED. Q2HR REPO, PREVALON SYSTEM UTILIZED WITH WEDGES/PILLOWS/ AND HEELBOS. KWASI FRENCH UPDATED BY THIS RN X 2 VIA PHONE.
[2021-11-19] MEDS: vancomycin HCL Oral Solution 125 MG/5 ML SOLN.RECON PO (18:53)
[2021-11-19] MEDS: carvediloL 12.5 MG TABLET PO (21:03)
[2021-11-19] MEDS: Atorvastatin Calcium 80 MG TABLET PO (21:03)
[2021-11-19] MEDS: cefTRIAXone sodium 2 GM in 0.9 % Sodium Chloride 50 ML IV (21:04)
[2021-11-19] MEDS: Heparin Sodium,Porcine 5,000 UNIT/ML VIAL 6900 UNIT IVPUSH (21:41)
[2021-11-19 23:42] LABS: Glucose, Whole Blood 154 mg/dL (60-115)
[2021-11-20] VITALS (25 sets, daily range): BP systolic 107–153; BP diastolic 47–85; PULSE 61–85; RESP 16–31; TEMP 34.6–37.8; O2SAT 87–97; BMI 56.2
[2021-11-20] MEDS: vancomycin HCL Oral Solution 125 MG/5 ML SOLN.RECON PO ×4 (00:01→17:34)
[2021-11-20] MEDS: Chlorhexidine Gluc Oral Rinse 15 ML MOUTHWASH BUCCAL ×2 (00:01→07:23)
[2021-11-20] MEDS: propofoL 1,000 MG/100 ML VIAL 31.14 MG IVCONT ×3 (00:59→07:20)
[2021-11-20 03:08] LABS: Glucose, Whole Blood 173 mg/dL (60-115)
[2021-11-20] MEDS: Doxycycline Hyclate 100 MG in 0.9 % Sodium Chloride 250 ML 166.67 MG IV (03:17)
[2021-11-20] MEDS: Heparin Sodium,Porcine/1/2NS 25,000 UNIT/250 ML IV.SOLN 20.53 UNIT IVCONT (03:19)
--- NOTE | 2021-11-20 03:40 | PC.NURSE ---
Patient had blood draw at 1930 for PTT-HD, no lab value back for PTT-HD value. New lab drawn and adjusted heparin per protocol.
[2021-11-20 04:10] LABS: PTT Heparin Drip 56.8 SEC (53-77.9)
[2021-11-20 05:25] LABS: VBG Base Excess 19.5 mmol/L; VBG HCO3 44 mmol/L (22-26); VBG pCO2 53 mmHg; VBG pH 7.52 (7.32-7.43); VBG pO2 39 mmHg
--- NOTE | 2021-11-20 05:29 | PC.NURSE ---
DR ORDAZ PRESENT ON UNIT AT ...POC GLUCOSE LEVELS REVIEWED BY ...D10% 50 CC/HR HELD BY
[2021-11-20 05:38] LABS: MANUAL DIFF FLAG NO
[2021-11-20 05:40] LABS: Basophils Percent Auto 0.3 % (0-2); Eosinophils Absolute Auto 0.3 X10*3/uL (0.0-0.4); Eosinophils Percent Auto 3.3 % (0-4); Hematocrit 29.2 % (37.0-47.0); Hemoglobin 8.2 g/dl (12.0-16.0); Imm Gran Abs Auto 0.07 X10*3/uL (0.00-0.03); Imm Gran Pct Auto 0.7 % (0.0-0.4); Lymphocytes Percent Auto 19.7 % (20-40); Mean Corpuscular HGB Conc 28.1 g/dl (31.0-35.0); Mean Corpuscular Hemoglobin 25.7 pg (27.0-33.0); Mean Corpuscular Volume 91.5 fL (80.0-98.0); Mean Platelet Volume 10.8 fL (9.4-12.3); Monocytes Absolute Auto 0.7 X10*3/uL (0.1-1.2); NRBC Pct Auto 0.2 /100WBC (0.0-0.2); Platelet Count 263 X10*3/uL (160-400); Red Blood Count 3.19 X10*6/uL (4.20-5.50); Red Cell Distribution Width 18.1 % (11.0-16.0); White Blood Count 10.1 X10*3/uL (4.8-10.8)
[2021-11-20 05:41] LABS: Venous Blood Gas Refer to POC result
[2021-11-20 06:04] LABS: Alanine Aminotransferase < 6 U/L (0-31); Albumin Level 3.2 g/dL (3.5-5.0); Alkaline Phosphatase 92 U/L (39-117); Anion Gap 16 (12-20); Aspartate Amino Transferase 9 U/L (5-31); Bilirubin Total 0.6 mg/dL (0.0-1.0); Blood Urea Nitrogen 37 mg/dL (9-16); C Reactive Protein 6.55 mg/dL (< or = 0.50); Calcium 8.5 mg/dL (8.4-10.2); Carbon Dioxide 35 mmol/L (22-29); Chloride 93 mmol/L (96-108); Creatinine Clr Calc Pharmacy 56.5; Estimated Glomerular Filt Rate 30; Glucose Random 185 mg/dL (60-115); Phosphorus 4.3 mg/dL (2.7-4.5); Potassium 3.4 mmol/L (3.3-5.1); Sodium 141 mmol/L (135-145); Total Protein 6.3 g/dL (6.5-8.0)
[2021-11-20] MEDS: acetaZOLAMIDE sodium 500 MG VIAL 375 MG IVPUSH (07:21)
[2021-11-20] MEDS: Amoxicillin 500 MG CAPSULE 1000 MG PO (07:23)
[2021-11-20] MEDS: carvediloL 12.5 MG TABLET PO ×2 (07:23→20:59)
[2021-11-20] MEDS: Isosorbide Dinitrate 20 MG TABLET PO ×2 (07:23→11:41)
[2021-11-20] MEDS: Ferrous Sulfate 324 MG TABLET.DR PO (07:23)
[2021-11-20] MEDS: Famotidine/PF 20 MG/2 ML VIAL IVPUSH (07:23)
[2021-11-20] MEDS: Aspirin Enteric Coated 81 MG TABLET.DR PO (07:24)
[2021-11-20] MEDS: fentaNYL citrate/PF 100 MCG/2 ML VIAL IVPUSH (08:41)
--- NOTE | 2021-11-20 09:58 | MHC.CLN ---
F/U PT EXTUBATED PRIOR TO ROUNDS THIS AM PT WITH INCREASED NUTRITION NEEDS R/T PRESSURE INJURIES WHEN DIET TO ADVANCE; RECOMMEND 2GM NA DIET RECOMMEND ADDING ENSURE MAX BID TO INCREASE PO PROTEIN AND PROMOTE WOUND HEALING SUPP TO PROVIDE 300KCALS, 60G PROTEIN WITH 100% ACCEPTANCE MONITOR PO INTAKE CLOSELY
--- NOTE | 2021-11-20 10:00 | PM.CCPN ---
Subjective Subjective Date of Service: 11/20/21 Interval History: Mrs. Das was admitted to ICU November 18 after being intubated in the ED for acute hypoxemic and hypercapnic respiratory failure. The patient is a 60-year-old woman with PMHx of left TKA about four years ago that became infected.? She was treated with antibiotics for a year in an effort to save the joint.? During that time she had an upper extremity PE from a PICC line, and was started on Eliquis.? After failing a year of abx, the joint was removed and a spacer placed, after which she was completely bedbound for three years.? On 10/23/21, she underwent redo left TKR at [facility]?s.? She was transferred to [facility] for rehab on 11/07. Her PMHx also includes hypertension, congestive heart failure, pressure ulcers, osteoarthritis, depression, and she had a failed lap band that was removed about 3 years ago.? I spoke with a nurse excellence manager at [facility].? She told me that the patient also had recent C diff infection for which she?s on oral vancomycin; recent cellulitis for which she started amoxicillin and cefadroxil on November 14; and neuropathy for which she?s on gabapentin 1500 mg daily since admission to [facility].? The earliest chemistries that [facility] had were from November 12, at which time her BUN and creatinine were 31/1.39.? The patient was on Lasix 80 mg daily with metolazone 2.5 mg daily. HISTORY OF PRESENT ILLNESS: The patient was BIBA to the ED on November 18 after being found lethargic, cyanotic and hypoxemic at [facility].? On arrival to the emergency room, she was lethargic, with Sat 85% on room air.? No response to naloxone.? Was initially placed on BiPAP but required emergent intubation for worsening mental status and hypercapnia. Labs were notable for white count 10.1, hemoglobin 9.4, serum bicarb 37, BUN/creatinine of 40/2.2, albumin was 3.7, Trop 12, BNP was 405.? ABG post bipap? 7.29/91/92/44 (unspecified FiO2).? (We have no prior laboratory data in our [facility] records.)? Head CT showed no acute bleed.? Noncontrast chest CT showed bilateral lower lobe shmutz, with trace pleural effusions.? Venous Doppler showed no DVTs. She was given fluids and abx and admitted to ICU for further management, where she was started on a Lasix drip, which continued throughout the day yesterday. ECHOCARDIOGRAM yesterday showed: - normal LV size and contractility. - mildly enlarged RV with RV:LV cavity ratio 0.8-0.9.? Normal RV function. - No AI - 1+ MR - No TR - IVC 2.2 cm with no insp collapse. This morning we turned the propofol sedation off.? She woke up and was appropriately responsive within 20 minutes.? We bloused her with fentanyl to slow her RR.? Then placed her on PSV 10/25%/+7.5. ?RR was 12, Vt 430cc, Ve 5,8L, PIP 18cm, ETCO2 40mm, Sat 92%.? HR 65, BP 113/55.? Tmax 100.1?.? She?s also on Lasix 5mg/hr, and Heparin gtt.? No JVD at 30 degrees.? Chest clear to auscultation with normal expiratory phase.? Heart rate and rhythm are regular, with normal-sounding S1 and S2, with no murmur or gallops.? The abdomen is obese and benign.? She has about 1+ pitting edema.? Her right calf is bigger than her left.? (Had a negative DVT study on admission.) ?On the left lower extremity, she has a 16 in stapled incision centered on the knee; the incision margins are clean and non-erythematous.? On the right lower leg, she has a 6-8? diameter area of mild cellulitis on the anterior mid mcmahon; the area of erythema looks less red than yesterday.? She has mult wounds, on her sacrum/buttocks, her perineum, and her right heel. The patient was extubated to high-flow nasal cannula 60 L/30%, breathing easy, with sat low 90s.? She is able to say ?E?. ?Tracheal sounds are clear. LABORATORY DATA:? Below.? Notably, creatinine this morning is down to 1.7.? BE is +19.? She?s on Diamox.. IMPRESSION: 1. Underlying morbid obesity. 2. Likely underlying obesity hypoventilation syndrome.? Her head and neck habitus are very suggestive of SMILEY, and her admitting serum bicarb level was 37, with marked hypercapnia on her arterial blood gas.? On the other hand, her metabolic alkalosis could also be 2? vigorous diuresis. ??? I put in a consult for Dr. Mays to see her in regards to nighttime oxygen vs CPAP. 3. Status post redo left TKA.? The wound looks perfect, no evidence of infection.? Need to keep PT actively involved. 4. History of congestive heart failure.? 2? LV DDx if anything, but she could also have mild RHF.? Her Med Rec includes diuretics, Coreg, and enalapril.? Currently on Lasix infusion 5mg/hr.? With her creat continuing to improve, I?ll continue the Lasix infusion. ?She?s negative 1L so far.? She?ll need Diamox to control her met alkalosis and pCO2. 5. Altered mental status on admission.? Presumably toxic/metabolic encephalopathy, most likely 2? to either the hypercarbia, the gabapentin (with her BERNIE), or a combination of both.? We stopped the gabapentin and she woke up after ventilation and Diamox. 6. BERNIE.? Could be ATN vs hypovolemia.? As noted above, with her worsening renal indices since she arrived at [facility], she developed toxic encephalopathy from the gabapentin bec the dose was not adjusted. 7. Acute hypoxemic and hypercapnic respiratory failure.? Secondary to above factors (hypoventilation and depressed mental status).? The chest CT is unimpressive.? I don?t think she has significant pneumonia, altho some degree of aspiration cannot be ruled out.? (She?s on Abx to cover her cellulitis, not for pneumonia.) 8. Anticoagulation.? Continuing anticoagulation bec of h/o PE and high risk.? Doubt PE is of current physiologic importance, andreia with trop of 12, altho with enlarged RV and elevated BNP, cannot conclusively rule it out without a scan.? Which I don?t think is necessary.? I?ll change her heparin infusion back to the Eliquis she was on at [facility]. 9. ID:? Clearly has a cellulitis of the anterior right lower leg.? We changed her abx to ceftriaxone.? Given the obvious clinical improvement, there?s no indication to think that she needs additional coverage for MRSA. 10. H/o CDiff.? She?ll finish her course of oral vancomycin today. 11. Metabolic alkalosis.? I increased her Diamox to 500mg tid. Stable for transfer to [facility].? Will sign out to the hospitalists. Time (including d/w Dr. Mays and extended d/w the patient?s re history and current tx):? 90+ min.? ([id number] [phone] [id number]) Critical Care Time (minutes): 0 Physical Exam Vital Signs: Vital Signs: Last Vital Signs Temp 99.5 F 11/20/21 09:00 Pulse 64 11/20/21 09:00 Resp 22 H 11/20/21 09:30 BP 131/85 11/20/21 09:59 Pulse Ox 91 L 11/20/21 09:00 BMI result Body Mass Index 56.2 Objective Data Labs CBC & Chem 7: 11/22/21 06:35 11/22/21 06:35 Labs: Laboratory Results - last 24 hr 11/19/21 11/19/21 11/19/21 12:31 13:59 17:44 WBC RBC Hgb Hct MCV MCH MCHC RDW Plt Count MPV Immature Gran % (Auto) Neut % (Auto) Lymph % (Auto) Wood % (Auto) Eos % (Auto) Baso % (Auto) Lymph # (Auto) Wood # (Auto) Eos # (Auto) Baso # (Auto) Abs Immat Gran (auto) Absolute Neuts (auto) Absolute Nucleated RBC Nucleated RBC % (auto) APTT aPTT Heparin Protocol 59.0 D VBG pH VBG pCO2 VBG pO2 VBG HCO3 VBG O2 Saturation VBG Base Excess Sodium Potassium Chloride Carbon Dioxide Anion Gap BUN Creatinine Estim Creat Clear Calc Estimated GFR POC Glucose 71 103 Random Glucose Calcium Phosphorus Total Bilirubin AST ALT Alkaline Phosphatase C-Reactive Protein Total Protein Albumin 11/19/21 11/19/21 11/19/21 19:30 21:06 23:39 WBC RBC Hgb Hct MCV MCH MCHC RDW Plt Count MPV Immature Gran % (Auto) Neut % (Auto) Lymph % (Auto) Wood % (Auto) Eos % (Auto) Baso % (Auto) Lymph # (Auto) Wood # (Auto) Eos # (Auto) Baso # (Auto) Abs Immat Gran (auto) Absolute Neuts (auto) Absolute Nucleated RBC Nucleated RBC % (auto) APTT 43.0 H aPTT Heparin Protocol 42.0 L D VBG pH VBG pCO2 VBG pO2 VBG HCO3 VBG O2 Saturation VBG Base Excess Sodium Potassium Chloride Carbon Dioxide Anion Gap BUN Creatinine Estim Creat Clear Calc Estimated GFR POC Glucose 154 H Random Glucose Calcium Phosphorus Total Bilirubin AST ALT Alkaline Phosphatase C-Reactive Protein Total Protein Albumin 11/20/21 11/20/21 11/20/21 03:02 03:45 05:12 WBC 10.1 RBC 3.19 L Hgb 8.2 L Hct 29.2 L MCV 91.5 MCH 25.7 L MCHC 28.1 L RDW 18.1 H Plt Count 263 MPV 10.8 Immature Gran % (Auto) 0.7 H Neut % (Auto) 69.0 Lymph % (Auto) 19.7 L Wood % (Auto) 7.0 Eos % (Auto) 3.3 Baso % (Auto) 0.3 Lymph # (Auto) 2.0 Wood # (Auto) 0.7 Eos # (Auto) 0.3 Baso # (Auto) 0.0 Abs Immat Gran (auto) 0.07 H Absolute Neuts (auto) 7.0 Absolute Nucleated RBC 0.020 H Nucleated RBC % (auto) 0.2 APTT aPTT Heparin Protocol 56.8 D VBG pH VBG pCO2 VBG pO2 VBG HCO3 VBG O2 Saturation VBG Base Excess Sodium Potassium Chloride Carbon Dioxide Anion Gap BUN Creatinine Estim Creat Clear Calc Estimated GFR POC Glucose 173 H Random Glucose Calcium Phosphorus Total Bilirubin AST ALT Alkaline Phosphatase C-Reactive Protein Total Protein Albumin 11/20/21 11/20/21 05:12 05:17 WBC RBC Hgb Hct MCV MCH MCHC RDW Plt Count MPV Immature Gran % (Auto) Neut % (Auto) Lymph % (Auto) Wood % (Auto) Eos % (Auto) Baso % (Auto) Lymph # (Auto) Wood # (Auto) Eos # (Auto) Baso # (Auto) Abs Immat Gran (auto) Absolute Neuts (auto) Absolute Nucleated RBC Nucleated RBC % (auto) APTT aPTT Heparin Protocol VBG pH 7.52 H VBG pCO2 53 VBG pO2 39 VBG HCO3 44 H VBG O2 Saturation 60.0 VBG Base Excess 19.5 Sodium 141 Potassium 3.4 Chloride 93 L Carbon Dioxide 35 H Anion Gap 16 BUN 37 H Creatinine 1.74 H Estim Creat Clear Calc 56.5 Estimated GFR 30 POC Glucose Random Glucose 185 H Calcium 8.5 Phosphorus 4.3 Total Bilirubin 0.6 AST 9 ALT < 6 Alkaline Phosphatase 92 C-Reactive Protein 6.55 H Total Protein 6.3 L Albumin 3.2 L Microbiology Microbiology Results: Microbiology 11/18/21 15:35 Blood - Venous Blood Culture - Preliminary No growth after 24 hours. 11/18/21 15:29 Blood - Venous Blood Culture - Preliminary No growth after 24 hours. Quality Stroke Does the patient have a stroke diagnosis?: No VTE Prior VTE?: Yes VTE Risk Level:: Medical - moderate - high VTE Device Contraindication: Treatment Not Indicated VTE Drug Contraindication: N/A - Med Ordered
[2021-11-20 10:07] LABS: PTT Heparin Drip 53.4 SEC (53-77.9)
[2021-11-20] MEDS: Potassium Chloride/H20 40 MEQ/100 ML PIGGYBACK 50 MEQ IV ×2 (11:37→14:10)
[2021-11-20 12:01] LABS: VBG Base Excess 14.9 mmol/L; VBG HCO3 40 mmol/L (22-26); VBG pCO2 51 mmHg; VBG pH 7.49 (7.32-7.43); VBG pO2 39 mmHg
--- NOTE | 2021-11-20 13:12 | MHC.CM.PN ---
Pt extubated in ICU today - still being tx for HF exacerbation: PT to see pt later this afternoon. Updated clinical notes for [facility] in anticipation of pt returning for continued STR.
[2021-11-20] MEDS: Acetaminophen 325 MG TABLET 975 MG PO (13:31)
[2021-11-20 13:33] LABS: Venous Blood Gas Refer to POC result
[2021-11-20] MEDS: Apixaban 5 MG TABLET PO ×2 (14:17→20:58)
[2021-11-20] MEDS: acetaZOLAMIDE sodium 500 MG VIAL IVPUSH (17:34)
[2021-11-20] MEDS: Furosemide 200 MG in 0.9 % Sodium Chloride 80 ML IVCONT (18:26)
[2021-11-20] MEDS: cefTRIAXone sodium 2 GM in 0.9 % Sodium Chloride 50 ML IV (20:54)
[2021-11-20] MEDS: buPROPion HCl XL 150 MG TAB.ER.24H 300 MG PO (20:58)
[2021-11-20] MEDS: Atorvastatin Calcium 80 MG TABLET PO (20:59)
[2021-11-20 23:33] LABS: Glucose, Whole Blood 134 mg/dL (60-115)
[2021-11-21] VITALS (14 sets, daily range): BP systolic 127–151; BP diastolic 50–86; PULSE 77–87; RESP 16–27; TEMP 36.8–37.4; O2SAT 88–96; BMI 53.6
[2021-11-21] MEDS: vancomycin HCL Oral Solution 125 MG/5 ML SOLN.RECON PO (00:21)
[2021-11-21] MEDS: acetaZOLAMIDE sodium 500 MG VIAL IVPUSH ×3 (00:22→19:24)
[2021-11-21 05:33] LABS: VBG Base Excess 14.7 mmol/L; VBG HCO3 40 mmol/L (22-26); VBG pCO2 54 mmHg; VBG pH 7.48 (7.32-7.43); VBG pO2 50 mmHg
[2021-11-21 05:51] LABS: Hemoglobin 8.4 g/dl (12.0-16.0); Mean Corpuscular Hemoglobin 25.8 pg (27.0-33.0); Mean Platelet Volume 10.2 fL (9.4-12.3); NRBC Pct Auto 0.2 /100WBC (0.0-0.2); Platelet Count 245 X10*3/uL (160-400); Red Blood Count 3.26 X10*6/uL (4.20-5.50); Red Cell Distribution Width 17.9 % (11.0-16.0); White Blood Count 8.4 X10*3/uL (4.8-10.8)
[2021-11-21 05:52] LABS: Glucose, Whole Blood 115 mg/dL (60-115)
[2021-11-21 06:04] LABS: Anion Gap 16 (12-20); Blood Urea Nitrogen 32 mg/dL (9-16); Carbon Dioxide 35 mmol/L (22-29); Chloride 96 mmol/L (96-108); Creatinine Clr Calc Pharmacy 70.2; Estimated Glomerular Filt Rate 38; Glucose Random 114 mg/dL (60-115); Magnesium 2.2 mg/dL (1.6-2.6); Potassium 3.5 mmol/L (3.3-5.1); Sodium 143 mmol/L (135-145)
[2021-11-21 06:13] LABS: B Type Natriuretic Peptide 88 pg/mL (<100)
[2021-11-21 07:52] LABS: Venous Blood Gas Refer to POC result
[2021-11-21] MEDS: Isosorbide Mononitrate 60 MG TAB.ER.24H PO (08:31)
[2021-11-21] MEDS: Apixaban 5 MG TABLET PO ×2 (08:31→21:15)
[2021-11-21] MEDS: Aspirin Enteric Coated 81 MG TABLET.DR PO (08:31)
[2021-11-21] MEDS: carvediloL 12.5 MG TABLET PO ×2 (08:31→21:15)
[2021-11-21] MEDS: Ferrous Sulfate 324 MG TABLET.DR PO (08:31)
[2021-11-21] MEDS: Acetaminophen 325 MG TABLET 975 MG PO (08:33)
--- NOTE | 2021-11-21 09:47 | P.PNIM_ITS ---
Subjective Subjective Date of Service: 11/21/21 Interval History: cc: ams, sob interval history: back pain, still sob but improved Cardiovascular Cardiovascular: Reports no additional cardiovascular complaints Respiratory Respiratory: Reports no additional respiratory complaints Physical Exam Vital Signs: Vital Signs: Last Vital Signs Temp 98.2 F 11/21/21 07:44 Pulse 79 11/21/21 07:44 Resp 18 11/21/21 08:31 BP 151/71 H 11/21/21 07:44 Pulse Ox 91 L 11/21/21 07:44 BMI result Body Mass Index 53.6 General: AO X 3, obese, ill appearing Resp: diminihsed bilateral, accessory muscles used CVS: S1,S2,RRR GI: soft, non tender, non distended Neuro: motor grossly intact, alert Psych: appropriate affect, appropriate insight Objective Data Active Medications Acetaminophen (Acetaminophen 325 Mg Tablet) 975 mg PO Q6H PRN PRN Reason: Pain, Moderate (Pain Scale 4-6 Last Admin: 11/21/21 08:33 Dose: 975 mg Documented by: GERMAN Acetazolamide (Acetazolamide Sodium 500 Mg Vial) 500 mg IVPUSH Q8H [facility] Last Admin: 11/21/21 08:31 Dose: 500 mg Documented by: GERMAN Apixaban (Apixaban 5 Mg Tablet) 5 mg PO BID [facility] Last Admin: 11/21/21 08:31 Dose: 5 mg Documented by: GERMAN Aspirin (Aspirin Enteric Coated 81 Mg Tablet.) 81 mg PO DAILY [facility] Last Admin: 11/21/21 08:31 Dose: 81 mg Documented by: GERMAN Atorvastatin Calcium (Atorvastatin Calcium 80 Mg Tablet) 80 mg PO BEDTIME [facility] Last Admin: 11/20/21 20:59 Dose: 80 mg Documented by: FAUSTINO Bupropion HCl (Bupropion Hcl Xl 300 Mg Tab.Er.24h) 300 mg PO BEDTIME [facility] Carvedilol (Carvedilol 12.5 Mg Tablet) 12.5 mg PO BID [facility]; Protocol Last Admin: 11/21/21 08:31 Dose: 12.5 mg Documented by: GERMAN Ferrous Sulfate (Ferrous Sulfate 324 Mg Tablet.) 324 mg PO DAILY [facility] Last Admin: 11/21/21 08:31 Dose: 324 mg Documented by: GERMAN Furosemide 200 mg/ Sodium (Chloride) 100 mls @ 2.5 mls/hr IVCONT .Q24H [facility] Last Admin: 11/20/21 18:26 Dose: 5 mg/hr, 2.5 mls/hr Documented by: GERMAN Ceftriaxone Sodium 2 gm/ (Sodium Chloride) 50 mls @ 100 mls/hr IV Q24H [facility] Last Infusion: 11/20/21 21:36 Dose: 100 mls/hr Documented by: FAUSTINO Isosorbide Mononitrate (Isosorbide Mononitrate 60 Mg Tab.Er.24h) 60 mg PO DAILY [facility] Last Admin: 11/21/21 08:31 Dose: 60 mg Documented by: GERMAN Labs CBC & Chem 7: 11/21/21 05:28 11/21/21 05:28 Labs: Laboratory Results - last 24 hr 11/20/21 11/20/21 11/20/21 09:44 11:54 23:23 MCV MCH MCHC RDW Plt Count MPV Absolute Nucleated RBC Nucleated RBC % (auto) aPTT Heparin Protocol 53.4 VBG pH 7.49 H VBG pCO2 51 VBG pO2 39 VBG HCO3 40 H VBG O2 Saturation 58.0 VBG Base Excess 14.9 Anion Gap Estim Creat Clear Calc Estimated GFR POC Glucose 134 H Random Glucose Calcium Phosphorus Magnesium B-Natriuretic Peptide 11/21/21 11/21/21 11/21/21 05:25 05:28 05:28 MCV 92.0 MCH 25.8 L MCHC 28.0 L RDW 17.9 H Plt Count 245 MPV 10.2 Absolute Nucleated RBC 0.020 H Nucleated RBC % (auto) 0.2 aPTT Heparin Protocol VBG pH 7.48 H VBG pCO2 54 VBG pO2 50 VBG HCO3 40 H VBG O2 Saturation 76.0 VBG Base Excess 14.7 Anion Gap 16 Estim Creat Clear Calc 70.2 Estimated GFR 38 POC Glucose Random Glucose 114 Calcium 9.0 Phosphorus 4.0 Magnesium 2.2 B-Natriuretic Peptide 11/21/21 11/21/21 05:28 05:41 MCV MCH MCHC RDW Plt Count MPV Absolute Nucleated RBC Nucleated RBC % (auto) aPTT Heparin Protocol VBG pH VBG pCO2 VBG pO2 VBG HCO3 VBG O2 Saturation VBG Base Excess Anion Gap Estim Creat Clear Calc Estimated GFR POC Glucose 115 Random Glucose Calcium Phosphorus Magnesium B-Natriuretic Peptide 88 Microbiology Microbiology Results: Microbiology 11/18/21 15:35 Blood Culture - Preliminary Blood - Venous No growth after 48 hours. 11/18/21 15:29 Blood Culture - Preliminary Blood - Venous No growth after 48 hours. Assessment and Plan (1) AMS (altered mental status): Status: Acute Plan 60F presented with hypoxia and ams, was admitted to the ICU for mechanical ve ntilation. Patient was diuresed with IV Lasix infusion, was treated for cellulitis of the right anterior leg with ceftriaxone, she had recent C diff and is still on oral vancomycin. Patient was successfully extubated And transition to high-flow oxygen and downgraded to telemetry 11/20/2021. acute hypoxic and hypercapnic respiratory failure complicated by toxic metabolic encephalopathy requiring mechanical ventilation due to obesity hypoventilation, gabapentin in the setting of acute kidney injury, acute on chronic diastolic CHF status post extubation, now on high-flow oxygen - continue to wean as tolerated for an oxygen saturation of about 90% continue Lasix infusion, monitor BMP creatinine improving with diuresis mental status significantly improved continue Diamox for metabolic alkalosis, monitor labs history of pulmonary embolism continue Eliquis morbid obesity weight loss recent C diff continue p.o. vancomycin right lower extremity cellulitis continue ceftriaxone recent left total knee arthroplasty revision does not appear infected, outpatient follow-up for staple removal physical debility continue PT diabetes insulin, monitor poin reason for continued hospitalization: still requiring high flow oxygen Quality Stroke Does the patient have a stroke diagnosis?: No VTE Prior VTE?: Yes VTE Risk Level:: Medical - moderate - high VTE Device Contraindication: Treatment Not Indicated VTE Drug Contraindication: N/A - Med Ordered
--- NOTE | 2021-11-21 11:32 | MHC.CM.PN ---
Per ROUNDS discussion, Patient is not yet medically cleared for dc (IV Diamox, IV Ceftriaxone, IV Lasix); Returning to [facility] at [facility] is the goal and CM will continue kevin follow.
[2021-11-21 11:35] LABS: Glucose, Whole Blood 235 mg/dL (60-115)
[2021-11-21] MEDS: Insulin Lispro 100 UNIT/ML 3 ML VIAL SUBCUT ×3 (12:39→21:15)
[2021-11-21] MEDS: Morphine Sulfate 2 MG/ML CARTRIDGE IVPUSH ×2 (12:40→16:37)
--- NOTE | 2021-11-21 13:45 | MHC.CLN ---
F/U PT WITH INCREASED NUTRITION NEEDS R/T PRESSURE INJURIES DIET RX: 1500DM 2GM NA -PT MAY BENEFIT FROM INCREASED KCALS R/T PRESSURE INJURIES RECOMMEND 1800DM 2GM NA DIET PT RECEIVING ENSURE MAX BID TO INCREASE PO PROTEIN AND PROMOTE WOUND HEALING SUPP TO PROVIDE 300KCALS, 60G PROTEIN WITH 100% ACCEPTANCE MONITOR PO INTAKE AND SUPPLEMENT ACCEPTANCE CLOSELY
--- NOTE | 2021-11-21 14:08 | P.PNPL_ITS ---
Subjective Subjective Date of Service: 11/21/21 Principal diagnosis: HYPOVENTILATION , AND RESP. FAILURE Interval history: I WAS US TO SEE THIS PATIENT FOR ONGOING FOLLOW-UP. DISCUSS THE CASE WITH PATIENT SAFETY COORDINATOR, DR. STEPHAN ORDAZ. PATIENT WAS INITIALLY ADMITTED THROUGH THE EMERGENCY ROOM WITH WITH SOMNOLENCE AND INCREASED RESPIRATORY DISTRESS. PATIENT INITIALLY TREATED WITH INTUBATION AND VENT SUPPORT AND THEN HAS BEEN EXTUBATED, NOW REQUIRING HIGH-FLOW OXYGEN. SHE HAS A VERY COMPLEX HISTORY WHICH I HAVE BRIEFLY REVIEWED FROM THE HOSPITAL RECORDS. She has been morbidly obese for many years. She tells me that she underwent a home sleep study about 6 months ago through [facility] sleep medicine/[facility]. She was told that she had only mild sleep apnea, but she is not sure about that. The history of total knee replacement a few years ago followed by infection, requiring IV antibiotics for almost 1 year and finally joint removed and a spacer placed at [facility]. She remained totally bedbound for about 3 years. In October of this year she had a revision of the total knee replacement, and then placed in rehab facility in [place], [place] . Currently she has been extubated and is on high-flow at 80 L/minute, saturating fairly well and mental status has improved. Objective Data Labs CBC & Chem 7: 11/21/21 05:28 11/21/21 05:28 Labs: Laboratory Results - last 24 hr 11/20/21 11/21/21 11/21/21 23:23 05:25 05:28 WBC 8.4 RBC 3.26 L Hgb 8.4 L Hct 30.0 L MCV 92.0 MCH 25.8 L MCHC 28.0 L RDW 17.9 H Plt Count 245 MPV 10.2 Absolute Nucleated RBC 0.020 H Nucleated RBC % (auto) 0.2 VBG pH 7.48 H VBG pCO2 54 VBG pO2 50 VBG HCO3 40 H VBG O2 Saturation 76.0 VBG Base Excess 14.7 Sodium Potassium Chloride Carbon Dioxide Anion Gap BUN Creatinine Estim Creat Clear Calc Estimated GFR POC Glucose 134 H Random Glucose Calcium Phosphorus Magnesium B-Natriuretic Peptide 11/21/21 11/21/21 11/21/21 05:28 05:28 05:41 WBC RBC Hgb Hct MCV MCH MCHC RDW Plt Count MPV Absolute Nucleated RBC Nucleated RBC % (auto) VBG pH VBG pCO2 VBG pO2 VBG HCO3 VBG O2 Saturation VBG Base Excess Sodium 143 Potassium 3.5 Chloride 96 Carbon Dioxide 35 H Anion Gap 16 BUN 32 H Creatinine 1.40 Estim Creat Clear Calc 70.2 Estimated GFR 38 POC Glucose 115 Random Glucose 114 Calcium 9.0 Phosphorus 4.0 Magnesium 2.2 B-Natriuretic Peptide 88 11/21/21 11:30 WBC RBC Hgb Hct MCV MCH MCHC RDW Plt Count MPV Absolute Nucleated RBC Nucleated RBC % (auto) VBG pH VBG pCO2 VBG pO2 VBG HCO3 VBG O2 Saturation VBG Base Excess Sodium Potassium Chloride Carbon Dioxide Anion Gap BUN Creatinine Estim Creat Clear Calc Estimated GFR POC Glucose 235 H Random Glucose Calcium Phosphorus Magnesium B-Natriuretic Peptide Microbiology Microbiology Results: Microbiology 11/18/21 15:35 Blood - Venous Blood Culture - Preliminary No growth after 48 hours. 11/18/21 15:29 Blood - Venous Blood Culture - Preliminary No growth after 48 hours. Review of Systems Review of Systems Yes Unobtainable due to mental condition Physical Exam Vital Signs: Vital Signs: Last Vital Signs Temp 98.7 F 11/21/21 11:00 Pulse 81 11/21/21 11:00 Resp 18 11/21/21 11:57 BP 129/61 11/21/21 11:00 Pulse Ox 92 11/21/21 11:00 BMI result Body Mass Index 53.6 Const: Other: Patient is morbidly obese, with a round face, She has high-flow cannula in her nose. Throat is not completely visible. She is awake and able to answer in short sentences, but still weak and not able to carry on full conversation. HENMT: Other: Cannot examine the oropharynx at this time Head: Yes normal to inspection General nose exam: No nasal polyps present and No nasal discharge present Face and sinus: Yes sinuses nontender Eyes: General: appearance normal, both eyes and all related structures Neck: Neck: Yes no lymphadenopathy, Yes trachea midline and Yes other (Neck is grossly obese) Thyroid: Thyroid normal Chest: Chest palpation & inspection: normal inspection of the chest, normal palpation of entire chest wall and no tenderness Resp: Other: Percussion note not perceptible because of extremely thick chest wall, breath sounds are very distant, especially decreased over the basilar areas. No wheezes or rhonchi are heard. Cardio: Palpation: PMI not normal (Not palpable) Rate: regular rate Rhythm: regular rhythm Heart sounds: no gallops and no murmurs GI: Palpation (GI): Soft to palpation, nontender, No hepatosplenomegaly p resent, no masses and Other GI palpation findings present (Abdomen is extremely obese and protuberant) Auscultation: normal bowel sounds Back/Spine/Pelvis: Other: Cannot be examined Thoracic/Lumbar Spine: thoracic and lumbar spine normal to inspection Skin: General skin exam: no rashes or lesions noted Neuro: Other: Cannot be examined thoroughly Extrem: Other: Extremely obese and, bulky. Psych: Speech and movement: Normal speech and movement present Procedures Date of Service Date of Service: 11/21/21 Assessment and Plan Assessment and plan (1) Morbid obesity: Status: Acute (2) Hypoventilation associated with obesity syndrome: Status: Acute (3) Respiratory failure with hypoxia and hypercapnia: Status: Acute Plan This patient with morbid obesity is a classical case of SMILEY/hypoventilation syndrome. Present admission due to acute decompensation and acute on chronic respiratory failure. Currently she is post extubation and doing well with high-flow O2. Recc . Continue high-flow and try to wean off slowly on till she is on nasal cannula. Deep breathing exercises with pursed lip technique explained to her and she nose very well. She may use DuoNeb updrafts Q 6 hours while awake. Trying to get results of her previous sleep study, done about 6 months ago, and if the diagnosis of SMILEY is confirmed then I would suggest that we start her on CPAP therapy at night. Otherwise she would need a repeat sleep study as outpatient. Currently PCO2 level has improved. Ph 7.48 Pco2 54 Po2 50 ( Venous ) Once she isto come off high-flow, I think we will try a BiPAP use while she is here. And to continue on this ventilatory support , after her discharge. Avoid giving her any narcotics. Time Spent With Patient Time: Total time spent is greater than 50% in coordination of care (as documented) at patient's floor/unit and/or counseling patient: Time with patient: 25 - 35 minutes Progress Note: Quality Stroke Does the patient have a stroke diagnosis?: No
--- NOTE | 2021-11-21 14:33 | PC.NURSE ---
TLC to RIJ removed. Patient tolerated well. Catheter intact, tip visualized. Occlusive dressing applied. Continuous O2 and HR monitoring, no change from baseline vitals.
[2021-11-21 15:58] LABS: Glucose, Whole Blood 263 mg/dL (60-115)
[2021-11-21] MEDS: Furosemide 200 MG in 0.9 % Sodium Chloride 80 ML IVCONT (19:18)
[2021-11-21] MEDS: Albuterol/Iprat 2.5/0.5MG 3 ML AMPUL.NEB INHALE (19:41)
[2021-11-21 20:17] LABS: Glucose, Whole Blood 193 mg/dL (60-115)
[2021-11-21] MEDS: cefTRIAXone sodium 2 GM in 0.9 % Sodium Chloride 50 ML IV (21:14)
[2021-11-21] MEDS: buPROPion HCl XL 300 MG TAB.ER.24H PO (21:15)
[2021-11-21] MEDS: Atorvastatin Calcium 80 MG TABLET PO (21:15)
[2021-11-22] VITALS (15 sets, daily range): BP systolic 125–168; BP diastolic 59–75; PULSE 72–88; RESP 16–21; TEMP 36.2–36.8; O2SAT 87–100; BMI 51.3
[2021-11-22] MEDS: acetaZOLAMIDE sodium 500 MG VIAL IVPUSH ×3 (00:28→17:13)
[2021-11-22 06:54] LABS: Hematocrit 32.6 % (37.0-47.0); Hemoglobin 9.1 g/dl (12.0-16.0); Mean Corpuscular HGB Conc 27.9 g/dl (31.0-35.0); Mean Corpuscular Hemoglobin 25.7 pg (27.0-33.0); Mean Corpuscular Volume 92.1 fL (80.0-98.0); Mean Platelet Volume 10.1 fL (9.4-12.3); Platelet Count 253 X10*3/uL (160-400); Red Blood Count 3.54 X10*6/uL (4.20-5.50); Red Cell Distribution Width 17.2 % (11.0-16.0); White Blood Count 8.4 X10*3/uL (4.8-10.8)
[2021-11-22 07:23] LABS: Anion Gap 15 (12-20); Blood Urea Nitrogen 39 mg/dL (9-16); Carbon Dioxide 31 mmol/L (22-29); Chloride 97 mmol/L (96-108); Creatinine Clr Calc Pharmacy 74.3; Estimated Glomerular Filt Rate 44; Glucose Fasting 177 mg/dL (60-99); Potassium 3.6 mmol/L (3.3-5.1); Sodium 139 mmol/L (135-145)
[2021-11-22 07:35] LABS: Glucose, Whole Blood 176 mg/dL (60-115)
[2021-11-22] MEDS: Albuterol/Iprat 2.5/0.5MG 3 ML AMPUL.NEB INHALE ×3 (07:59→19:41)
[2021-11-22] MEDS: Acetaminophen 325 MG TABLET 975 MG PO (08:00)
[2021-11-22] MEDS: Apixaban 5 MG TABLET PO ×2 (08:01→20:09)
[2021-11-22] MEDS: Aspirin Enteric Coated 81 MG TABLET.DR PO (08:01)
[2021-11-22] MEDS: Ferrous Sulfate 324 MG TABLET.DR PO (08:01)
[2021-11-22] MEDS: Insulin Lispro 100 UNIT/ML 3 ML VIAL SUBCUT ×4 (08:01→20:09)
[2021-11-22] MEDS: Isosorbide Mononitrate 60 MG TAB.ER.24H PO (08:01)
[2021-11-22] MEDS: carvediloL 12.5 MG TABLET PO ×2 (08:01→20:09)
--- NOTE | 2021-11-22 09:23 | P.PNPL_ITS ---
Subjective Subjective Date of Service: 11/22/21 Principal diagnosis: HYPOVENTILATION , AND RESP. FAILURE Interval history: This 60 years old female with morbid obesity, respiratory failure, Continues to require high-flow O2, at 50 L/minute, maintaining O2 sat in the low 90s. She claims to be fairly comfortable, she remains bed confined. She has no fever or chills. Mental status is remaining clear and stable. Objective Data Labs CBC & Chem 7: 11/22/21 06:35 11/22/21 06:35 Labs: Laboratory Results - last 24 hr 11/21/21 11/21/21 11/21/21 11:30 15:15 20:05 WBC RBC Hgb Hct MCV MCH MCHC RDW Plt Count MPV Absolute Nucleated RBC Nucleated RBC % (auto) Sodium Potassium Chloride Carbon Dioxide Anion Gap BUN Creatinine Estim Creat Clear Calc Estimated GFR POC Glucose 235 H 263 H 193 H Fasting Glucose Calcium 11/22/21 11/22/21 11/22/21 06:35 06:35 07:15 WBC 8.4 RBC 3.54 L Hgb 9.1 L Hct 32.6 L MCV 92.1 MCH 25.7 L MCHC 27.9 L RDW 17.2 H Plt Count 253 MPV 10.1 Absolute Nucleated RBC 0.000 Nucleated RBC % (auto) 0.0 Sodium 139 Potassium 3.6 Chloride 97 Carbon Dioxide 31 H Anion Gap 15 BUN 39 H Creatinine 1.25 Estim Creat Clear Calc 74.3 Estimated GFR 44 POC Glucose 176 H Fasting Glucose 177 H Calcium 9.0 ABG ABG results: Venous PH=7.48 pco2 54 po2 50 Microbiology Microbiology Results: Microbiology 11/18/21 15:35 Blood - Venous Blood Culture - Preliminary No growth after 48 hours. 11/18/21 15:29 Blood - Venous Blood Culture - Preliminary No growth after 48 hours. Review of Systems Review of Systems Yes Unobtainable due to mental condition Physical Exam Vital Signs: Vital Signs: Last Vital Signs Temp 98.3 F 11/22/21 07:13 Pulse 80 11/22/21 08:00 Resp 18 11/22/21 08:00 BP 168/75 H 11/22/21 07:13 Pulse Ox 94 11/22/21 07:13 BMI result Body Mass Index 51.3 Const: General: healthy appearing, comfortable, no acute distress, alert and awake Orientation/consciousness: patient oriented x3 HENMT: Head: Yes normal to inspection General nose exam: No nasal polyps present and No nasal discharge present Face and sinus: Yes sinuses nontender Mouth: oropharynx normal Throat: Yes posterior oropharynx normal Eyes: General: appearance normal, both eyes and all related structures Neck: Neck: Yes normal visual inspection, Yes no lymphadenopathy, Yes trachea midline and Yes no JVD Thyroid: Thyroid normal Cardio: Palpation: normal PMI Rate: regular rate Rhythm: regular rhythm Heart sounds: Gallop heart sound present and Murmur heart sound present Per ipheral pulses: Peripheral pulses 2+ throughout GI: Palpation (GI): Soft to palpation, Tenderness to palpation present (GI), No hepatosplenomegaly present and Palpable mass present Auscultation: normal bowel sounds Back/Spine/Pelvis: Thoracic/Lumbar Spine: thoracic and lumbar spine normal to inspection Skin: General skin exam: no rashes or lesions noted Neuro: General: patient oriented x3 and no focal motor deficits Cranial ne rves: Yes CN's II-XII intact bilaterally Extrem: General: Yes normal to inspection, Yes no clubbing, cyanosis or edema and Yes no calf tenderness Psych: Speech and movement: Normal speech and movement present Procedures Date of Service Date of Service: 11/22/21 Assessment and Plan Assessment and plan (1) Hypoventilation associated with obesity syndrome: Status: Acute (2) Respiratory failure with hypoxia and hypercapnia: Status: Acute (3) Atelectasis of both lungs: Status: Acute Plan This morbidly obese female, currently she has extensive atelectasis of the lower lobes, causing VQ abnormalities and severe hypoxemia. She has chronic SMILEY/Hypoventilation syndrome, but has never been treated with NIVS ( BIPAP ) Currently requiring high-flow, O2 and does not fit to go back to the rehab facility. * I was able to get says the report of sleep study performed on 08/09/2021, at [facility] sleep program. This was a home sleep study. It was considered insufficient because she slept only for 30 minutes. Recommendation was that she should have a IN-HOUSE POLYSOMNOGRAM, SPLIT NIGHT STUDY. At this point, I think her definite of treatment is going to be BiPAP support at night and during the daytime if needed. However to qualify her for BiPAP, she needs the the in house polysomnogram study. OR , once she can be weaned off the high-flow, and is on nasal cannula, we can do an overnight oximetry recording, on her usual O2 supplementation. And if she does have evidence of desaturations during sleep ( O2 sat below 88 % for 6 minutes ) and abnormal PCO2 , she would qualify for BiPAP. This can bypass the need to do in house polysomnogram study . I recc . To try to wean her off high-flow, goal of O2 sat 89-90%. Nas ram Q 6 hours while awake. Advised the patient to do deep breathing exercises as much as possible, with pursed lip breathing. She should be kept in upright position, as much as possible. Repeat venous BGs. Diamox may be changed to 250 mg p.o. b.i.d Time Spent With Patient Time: Total time spent is greater than 50% in coordination of care (as documented) at patient's floor/unit and/or counseling patient: Time with patient: 25 - 35 minutes Progress Note: Quality Stroke Does the patient have a stroke diagnosis?: No
--- NOTE | 2021-11-22 10:31 | P.PNIM_ITS ---
Subjective Subjective Date of Service: 11/22/21 Interval History: the patient was seen and evaluated this morning sitting in bed, feels comfortable overall Still requiring high-flow oxygen Denies any fever, chills or shortness of breath No reported other overnight events. Systemic review: No fever, chills or weakness No chest pain, palpitation dyspnea on exertion, no coughing No abdominal pain, nausea or vomiting No urinary symptoms No any rash or wounds Review of Systems Unable to do, patient is intubated Cardiovascular Cardiovascular: Reports no additional cardiovascular complaints Respiratory Respiratory: Reports no additional respiratory complaints Physical Exam Vital Signs: Vital Signs: Last Vital Signs Temp 98.3 F 11/22/21 07:13 Pulse 80 11/22/21 08:00 Resp 18 11/22/21 08:00 BP 168/75 H 11/22/21 07:13 Pulse Ox 94 11/22/21 07:13 BMI result Body Mass Index 51.3 Const: Other: Constitutional : Alert, round face, not in distress Neck : Normal inspection, Supple Cardiovascular : RRR, S1 S2, +1bilateral lower extremity edema Respiratory : fair bilateral air entry, basal fine crackles, wheezes or rhonchi Gastrointestinal: soft, lax, Normal bowel sounds, Non tender Skin : Warm, Dry, erythema in lower extremities Neurological : Alert & oriented x3, No focal deficit Skin: Other: Objective Data Active Medications Acetaminophen (Acetaminophen 325 Mg Tablet) 975 mg PO Q6H PRN PRN Reason: Pain, Moderate (Pain Scale 4-6 Last Admin: 11/22/21 08:00 Dose: 975 mg Documented by: YESY Acetazolamide (Acetazolamide Sodium 500 Mg Vial) 500 mg IVPUSH Q8H [facility] Last Admin: 11/22/21 08:01 Dose: 500 mg Documented by: YESY Acetazolamide (Acetazolamide 250 Mg Tablet) 500 mg PO BID [facility] Albuterol/Ipratropium (Albuterol/Iprat 2.5/0.5mg 3 Ml Ampul.Neb) 3 ml INHALE RQ6H WHILE AWAKE [facility] Last Admin: 11/22/21 07:59 Dose: 3 ml Documented by: MERYL Apixaban (Apixaban 5 Mg Tablet) 5 mg PO BID [facility] Last Admin: 11/22/21 08:01 Dose: 5 mg Documented by: YESY Aspirin (Aspirin Enteric Coated 81 Mg Tablet.) 81 mg PO DAILY [facility] Last Admin: 11/22/21 08:01 Dose: 81 mg Documented by: YESY Atorvastatin Calcium (Atorvastatin Calcium 80 Mg Tablet) 80 mg PO BEDTIME [facility] Last Admin: 11/21/21 21:15 Dose: 80 mg Documented by: RICKI Bupropion HCl (Bupropion Hcl Xl 300 Mg Tab.Er.24h) 300 mg PO BEDTIME [facility] Last Admin: 11/21/21 21:15 Dose: 300 mg Documented by: RICKI Carvedilol (Carvedilol 12.5 Mg Tablet) 12.5 mg PO BID [facility]; Protocol Last Admin: 11/22/21 08:01 Dose: 12.5 mg Documented by: YESY Dextrose (Dextrose 50 % 25 Gm/50 Ml Vial) 25 gm IVPUSH Q15M PRN; Protocol PRN Reason: per Hypoglycemia Standing Ord. Ferrous Sulfate (Ferrous Sulfate 324 Mg Tablet.) 324 mg PO DAILY [facility] Last Admin: 11/22/21 08:01 Dose: 324 mg Documented by: YESY Glucose (Glucose Gel 15 Gm Gel..Gram.) 15 gm PO Q15M PRN; Protocol PRN Reason: per Hypoglycemia Standing Ord. Furosemide 200 mg/ Sodium (Chloride) 100 mls @ 2.5 mls/hr IVCONT .Q24H [facility] Last Admin: 11/21/21 19:18 Dose: 5 mg/hr, 2.5 mls/hr Documented by: RICKI Ceftriaxone Sodium 2 gm/ (Sodium Chloride) 50 mls @ 100 mls/hr IV Q24H [facility] Last Infusion: 11/21/21 22:05 Dose: 0 mls/hr Documented by: RICKI Insulin Human Lispro (Insulin Lispro 100 Unit/Ml 3 Ml Vial) 0 unit SUBCUT QIDACHS [facility]; Protocol Last Admin: 11/22/21 08:01 Dose: 2 unit Documented by: YESY Isosorbide Mononitrate (Isosorbide Mononitrate 60 Mg Tab.Er.24h) 60 mg PO DAILY [facility] Last Admin: 11/22/21 08:01 Dose: 60 mg Documented by: YESY Morphine Sulfate (Morphine Sulfate 2 Mg/Ml Cartridge) 2 mg IVPUSH Q4H PRN; Protocol PRN Reason: moderate pain Last Admin: 11/21/21 16:37 Dose: 2 mg Documented by: RICKI Labs CBC & Chem 7: 11/22/21 06:35 11/22/21 06:35 Labs: Laboratory Results - last 24 hr 11/21/21 11/21/21 11/21/21 11:30 15:15 20:05 MCV MCH MCHC RDW Plt Count MPV Absolute Nucleated RBC Nucleated RBC % (auto) Anion Gap Estim Creat Clear Calc Estimated GFR POC Glucose 235 H 263 H 193 H Fasting Glucose Calcium 11/22/21 11/22/21 11/22/21 06:35 06:35 07:15 MCV 92.1 MCH 25.7 L MCHC 27.9 L RDW 17.2 H Plt Count 253 MPV 10.1 Absolute Nucleated RBC 0.000 Nucleated RBC % (auto) 0.0 Anion Gap 15 Estim Creat Clear Calc 74.3 Estimated GFR 44 POC Glucose 176 H Fasting Glucose 177 H Calcium 9.0 Assessment and Plan (1) Atelectasis of both lungs: Status: Acute (2) Respiratory failure with hypoxia and hypercapnia: Status: Acute (3) Hypoventilation associated with obesity syndrome: Status: Acute (4) Morbid obesity: Status: Acute (5) Acute respiratory failure with hypoxia and hypercapnia: Status: Acute Plan 60F presented with hypoxia and ams, was admitted to the ICU for mechanical ventilation. Patient was diuresed with IV Lasix infusion, was treated for cellulitis of the right anterior leg with ceftriaxone, she had recent C diff and is still on oral vancomycin. Patient was successfully extubated And transition to high-flow oxygen and downgraded to telemetry 11/20/2021. # acute hypoxic and hypercapnic respiratory failure # complicated by toxic metabolic encephalopathy requiring mechanical ventilation # due to obesity hypoventilation, gabapentin # in the setting of acute kidney injury, acute on chronic diastolic CHF now on high-flow oxygen - wean as tolerated for an oxygen saturation of about 90% continue Lasix infusion monitor BMP creatinine improving with diuresis mental status significantly improved continue Diamox for metabolic alkalosis, monitor labs history of pulmonary embolism continue Eliquis morbid obesity weight loss recent C diff continue p.o. vancomycin right lower extremity cellulitis continue ceftriaxone recent left total knee arthroplasty revision does not appear infected, outpatient follow-up for staple removal physical debility continue PT diabetes insulin, monitor poin reason for continued hospitalization: still requiring high flow oxygen Quality Stroke Does the patient have a stroke diagnosis?: No VTE Prior VTE?: Yes VTE Risk Level:: Medical - moderate - high VTE Device Contraindication: Treatment Not Indicated VTE Drug Contraindication: N/A - Med Ordered
[2021-11-22 11:23] LABS: Glucose, Whole Blood 235 mg/dL (60-115)
[2021-11-22 16:18] LABS: Glucose, Whole Blood 236 mg/dL (60-115)
[2021-11-22] MEDS: Furosemide 200 MG in 0.9 % Sodium Chloride 80 ML IVCONT (17:11)
[2021-11-22 19:29] LABS: Glucose, Whole Blood 212 mg/dL (60-115)
[2021-11-22] MEDS: acetaZOLAMIDE 250 MG TABLET 500 MG PO (20:08)
[2021-11-22] MEDS: Atorvastatin Calcium 80 MG TABLET PO (20:09)
[2021-11-22] MEDS: buPROPion HCl XL 300 MG TAB.ER.24H PO (20:09)
[2021-11-22] MEDS: cefTRIAXone sodium 2 GM in 0.9 % Sodium Chloride 50 ML IV (20:10)
[2021-11-22] MEDS: Morphine Sulfate 2 MG/ML CARTRIDGE IVPUSH (20:21)
[2021-11-23] VITALS (11 sets, daily range): BP systolic 132–171; BP diastolic 62–80; PULSE 75–84; RESP 12–20; TEMP 35.8–36.8; O2SAT 90–98; BMI 53.8
[2021-11-23] MEDS: Morphine Sulfate 2 MG/ML CARTRIDGE IVPUSH ×2 (01:59→23:30)
[2021-11-23] MEDS: acetaZOLAMIDE sodium 500 MG VIAL IVPUSH (02:00)
[2021-11-23 07:01] LABS: VBG Base Excess 5.5 mmol/L; VBG HCO3 30 mmol/L (22-26); VBG pCO2 45 mmHg; VBG pH 7.43 (7.32-7.43); VBG pO2 98 mmHg
[2021-11-23 07:08] LABS: Venous Blood Gas Refer to POC result
[2021-11-23 07:23] LABS: Anion Gap 14 (12-20); Blood Urea Nitrogen 35 mg/dL (9-16); Carbon Dioxide 29 mmol/L (22-29); Chloride 100 mmol/L (96-108); Estimated Glomerular Filt Rate 53; Glucose Random 194 mg/dL (60-115); Potassium 3.6 mmol/L (3.3-5.1); Sodium 139 mmol/L (135-145)
[2021-11-23 07:34] LABS: B Type Natriuretic Peptide 35 pg/mL (<100)
[2021-11-23] MEDS: Albuterol/Iprat 2.5/0.5MG 3 ML AMPUL.NEB INHALE ×3 (08:02→20:04)
[2021-11-23 08:16] LABS: Glucose, Whole Blood 165 mg/dL (60-115)
[2021-11-23] MEDS: Furosemide 40 MG TABLET 80 MG PO (08:18)
[2021-11-23] MEDS: Insulin Lispro 100 UNIT/ML 3 ML VIAL SUBCUT ×4 (08:18→20:43)
[2021-11-23] MEDS: Isosorbide Mononitrate 60 MG TAB.ER.24H PO (08:19)
[2021-11-23] MEDS: acetaZOLAMIDE 250 MG TABLET 500 MG PO ×2 (08:20→20:43)
[2021-11-23] MEDS: Aspirin Enteric Coated 81 MG TABLET.DR PO (08:21)
[2021-11-23] MEDS: Apixaban 5 MG TABLET PO ×2 (08:21→20:43)
[2021-11-23] MEDS: Ferrous Sulfate 324 MG TABLET.DR PO (08:21)
[2021-11-23] MEDS: carvediloL 12.5 MG TABLET PO ×2 (08:21→20:43)
[2021-11-23 10:38] LABS: Influenza A PCR NEGATIVE (Negative); Influenza B PCR NEGATIVE (Negative); Resp Syncy Virus RNA Qual PCR NEGATIVE (Negative); SARS COV2 PCR INHOUSE NEGATIVE (Negative)
--- NOTE | 2021-11-23 11:14 | PM.EVENT ---
Event Note Date of Service: 11/23/21 Event Note: I note that she is doing fairly well on nasal cannula 3 L/minute. venous BGs this AM Ph7.43 Pco2 45 PO2 98 ( Much improved ) Plan : Overnight Oximetry recording on O2 3 L/mt , to see if she desaturates during sleep .
[2021-11-23 11:18] LABS: Glucose, Whole Blood 259 mg/dL (60-115)
--- NOTE | 2021-11-23 11:55 | P.PNIM_ITS ---
Subjective Subjective Date of Service: 11/23/21 Interval History: the patient was seen and evaluated this morning sitting in bed, feels comfortable overall oxygen requirement improved to 3 L Denies any fever, chills or shortness of breath No reported other overnight events. Systemic review: No fever, chills or weakness No chest pain, palpitation dyspnea on exertion, no coughing No abdominal pain, nausea or vomiting No urinary symptoms No any rash or wounds Physical Exam Vital Signs: Vital Signs: Last Vital Signs Temp 96.5 F L 11/23/21 08:00 Pulse 81 11/23/21 10:50 Resp 12 11/23/21 08:02 BP 167/76 H 11/23/21 08:00 Pulse Ox 97 11/23/21 08:00 BMI result Body Mass Index 53.8 Const: Other: Constitutional : Alert, round face, not in distress Neck : Normal inspection, Supple Cardiovascular : RRR, S1 S2, No lower extremity edema Respiratory : fair bilateral air entry, no fine crackles, wheezes or rhonchi Gastrointestinal: soft, lax, Normal bowel sounds, Non tender Skin : Warm, Dry, improved erythema in lower extremities Neurological : Alert & oriented x3, No focal deficit Objective Data Active Medications Acetaminophen (Acetaminophen 325 Mg Tablet) 975 mg PO Q6H PRN PRN Reason: Pain, Moderate (Pain Scale 4-6 Last Admin: 11/22/21 08:00 Dose: 975 mg Documented by: YESY Acetazolamide (Acetazolamide 250 Mg Tablet) 500 mg PO BID [facility] Last Admin: 11/23/21 08:20 Dose: 500 mg Documented by: JOEL Albuterol/Ipratropium (Albuterol/Iprat 2.5/0.5mg 3 Ml Ampul.Neb) 3 ml INHALE RQ6H WHILE AWAKE [facility] Last Admin: 11/23/21 08:02 Dose: 3 ml Documented by: NOREEN Apixaban (Apixaban 5 Mg Tablet) 5 mg PO BID [facility] Last Admin: 11/23/21 08:21 Dose: 5 mg Documented by: JOEL Aspirin (Aspirin Enteric Coated 81 Mg Tablet.) 81 mg PO DAILY [facility] Last Admin: 11/23/21 08:21 Dose: 81 mg Documented by: JOEL Atorvastatin Calcium (Atorvastatin Calcium 80 Mg Tablet) 80 mg PO BEDTIME [facility] Last Admin: 03/10/22 20:09 Dose: 80 mg Documented by: INEZ Bupropion HCl (Bupropion Hcl Xl 300 Mg Tab.Er.24h) 300 mg PO BEDTIME [facility] Last Admin: 11/22/21 20:09 Dose: 300 mg Documented by: INEZ Carvedilol (Carvedilol 12.5 Mg Tablet) 12.5 mg PO BID [facility]; Protocol Last Admin: 11/23/21 08:21 Dose: 12.5 mg Documented by: JOEL Dextrose (Dextrose 50 % 25 Gm/50 Ml Vial) 25 gm IVPUSH Q15M PRN; Protocol PRN Reason: per Hypoglycemia Standing Ord. Doxycycline Hyclate (Doxycycline Hyclate 100 Mg Tablet) 100 mg PO Q12H [facility] Ferrous Sulfate (Ferrous Sulfate 324 Mg Tablet.Dr) 324 mg PO DAILY [facility] Last Admin: 11/23/21 08:21 Dose: 324 mg Documented by: JOEL Furosemide (Furosemide 40 Mg Tablet) 80 mg PO DAILY [facility]; Protocol Last Admin: 11/23/21 08:18 Dose: 80 mg Documented by: JOEL Furosemide (Furosemide 40 Mg Tablet) 40 mg PO DAILY@1700 [facility]; Protocol Glucose (Glucose Gel 15 Gm Gel..Gram.) 15 gm PO Q15M PRN; Protocol PRN Reason: per Hypoglycemia Standing Ord. Ceftriaxone Sodium 2 gm/ (Sodium Chloride) 50 mls @ 100 mls/hr IV Q24H [facility] Last Infusion: 11/22/21 20:49 Dose: 0 mls/hr Documented by: INEZ Insulin Human Lispro (Insulin Lispro 100 Unit/Ml 3 Ml Vial) 0 unit SUBCUT QIDACHS [facility]; Protocol Last Admin: 11/23/21 08:18 Dose: 2 unit Documented by: JOEL Isosorbide Mononitrate (Isosorbide Mononitrate 60 Mg Tab.Er.24h) 60 mg PO DAILY [facility] Last Admin: 11/23/21 08:19 Dose: 60 mg Documented by: JOEL Morphine Sulfate (Morphine Sulfate 2 Mg/Ml Cartridge) 2 mg IVPUSH Q4H PRN; Protocol PRN Reason: moderate pain Last Admin: 11/23/21 01:59 Dose: 2 mg Documented by: INEZ Labs CBC & Chem 7: 11/22/21 06:35 03/11/22 06:50 Labs: Laboratory Results - last 24 hr 11/22/21 11/22/21 11/23/21 16:05 19:22 06:50 VBG pH VBG pCO2 VBG pO2 VBG HCO3 VBG O2 Saturation VBG Base Excess Anion Gap 14 Estim Creat Clear Calc 91.0 Estimated GFR 53 POC Glucose 236 H 212 H Random Glucose 194 H Calcium 9.0 B-Natriuretic Peptide Influenza Type A (PCR) Influenza Type B (PCR) RSV RNA Qual (PCR) SARS-CoV-2 RNA (RT-PCR) 11/23/21 11/23/21 11/23/21 06:50 06:53 08:04 VBG pH 7.43 VBG pCO2 45 VBG pO2 98 VBG HCO3 30 H VBG O2 Saturation 98.0 VBG Base Excess 5.5 Anion Gap Estim Creat Clear Calc Estimated GFR POC Glucose 165 H Random Glucose Calcium B-Natriuretic Peptide 35 Influenza Type A (PCR) Influenza Type B (PCR) RSV RNA Qual (PCR) SARS-CoV-2 RNA (RT-PCR) 11/23/21 11/23/21 09:43 11:06 VBG pH VBG pCO2 VBG pO2 VBG HCO3 VBG O2 Saturation VBG Base Excess Anion Gap Estim Creat Clear Calc Estimated GFR POC Glucose 259 H Random Glucose Calcium B-Natriuretic Peptide Influenza Type A (PCR) NEGATIVE Influenza Type B (PCR) NEGATIVE RSV RNA Qual (PCR) NEGATIVE SARS-CoV-2 RNA (RT-PCR) NEGATIVE Assessment and Plan (1) Atelectasis of both lungs: Status: Acute (2) Respiratory failure with hypoxia and hypercapnia: Status: Acute (3) Hypoventilation associated with obesity syndrome: Status: Acute (4) Morbid obesity: Status: Acute (5) Pneumonia: Status: Acute (6) Acute respiratory failure with hypoxia and hypercapnia: Status: Acute (7) Acute exacerbation of congestive heart failure: Status: Acute Plan 60F presented with hypoxia and ams, was admitted to the ICU for mechanical ventilation. Patient was diuresed with IV Lasix infusion, was treated for cellulitis of the right anterior leg with ceftriaxone, she had recent C diff and is still on oral vancomycin. Patient was successfully extubated And transition to high-flow oxygen and downgraded to telemetry 11/20/2021. # acute hypoxic and hypercapnic respiratory failure # complicated by toxic metabolic encephalopathy requiring mechanical ventilation # due to obesity hypoventilation, gabapentin # in the setting of acute kidney injury, acute on chronic diastolic CHF wean down to 3 L of oxygen discontinue Lasix infusion start p.o. Lasix And metolazone monitor BMP creatinine improving with diuresis mental status significantly improved continue Diamox for metabolic alkalosis, monitor labs to do overnight oximetry test Pulmonology input appreciated, evaluate her for need of BiPAP history of pulmonary embolism continue Eliquis morbid obesity weight loss recent C diff continue p.o. vancomycin right lower extremity cellulitis continue ceftriaxone recent left total knee arthroplasty revision does not appear infected, outpatient follow-up for staple removal physical debility continue PT diabetes insulin, monitor poin reason for continued hospitalization:Requiring an overnight oximetry study to evaluate for the need of BiPAP at time of discharge. Quality Stroke Does the patient have a stroke diagnosis?: No VTE Prior VTE?: Yes VTE Risk Level:: Medical - moderate - high VTE Device Contraindication: Treatment Not Indicated VTE Drug Contraindication: N/A - Med Ordered
--- NOTE | 2021-11-23 12:54 | PC.NURSE ---
Skin/wound reevaluation completed. Patient abrasion on left upper thigh is smaller with a yellow wound bed. Triad applied covered with small foam. Stage 2 to right heel-oil immersed gauze applied covered with foam. Stage 2 pressure injury to sacrum/right buttock with peeling skin and very small openings-slightly better.
--- NOTE | 2021-11-23 13:24 | MHC.CLN ---
F/U PT WITH INCREASED NUTRITION NEEDS R/T PRESSURE INJURIES DIET RX: 1800DM 2GM NA DIET -APPROPRIATE PT RECEIVING ENSURE MAX BID TO INCREASE PO PROTEIN AND PROMOTE WOUND HEALING PT WITH SUPP AT BEDSIDE, OPENED AND DRINKING UPON INTERVIEW SUPP PROVIDES 300KCALS, 60G PROTEIN WITH 100% ACCEPTANCE CONTINUE TO MONITOR PO INTAKE CLOSELY
[2021-11-23 16:46] LABS: Glucose, Whole Blood 265 mg/dL (60-115)
[2021-11-23] MEDS: Furosemide 40 MG TABLET PO (16:55)
[2021-11-23 19:46] LABS: Glucose, Whole Blood 283 mg/dL (60-115)
[2021-11-23] MEDS: buPROPion HCl XL 300 MG TAB.ER.24H PO (20:43)
[2021-11-23] MEDS: Atorvastatin Calcium 80 MG TABLET PO (20:43)
[2021-11-23] MEDS: cefTRIAXone sodium 2 GM in 0.9 % Sodium Chloride 50 ML IV (20:44)
[2021-11-24] VITALS (8 sets, daily range): BP systolic 134–176; BP diastolic 45–78; PULSE 80–89; RESP 18–20; TEMP 35.6–37.2; O2SAT 88–97
[2021-11-24 06:55] LABS: Venous Blood Gas Refer to POC result
[2021-11-24 06:55] LABS: VBG HCO3 28 mmol/L (22-26); VBG pCO2 44 mmHg; VBG pH 7.41 (7.32-7.43); VBG pO2 116 mmHg
[2021-11-24 07:22] LABS: Glucose, Whole Blood 195 mg/dL (60-115)
[2021-11-24] MEDS: Furosemide 40 MG TABLET 80 MG PO (07:56)
[2021-11-24] MEDS: Apixaban 5 MG TABLET PO ×2 (07:57→21:42)
[2021-11-24] MEDS: acetaZOLAMIDE 250 MG TABLET 500 MG PO (07:57)
[2021-11-24] MEDS: Aspirin Enteric Coated 81 MG TABLET.DR PO (07:58)
[2021-11-24] MEDS: Isosorbide Mononitrate 60 MG TAB.ER.24H PO (07:58)
[2021-11-24] MEDS: Ferrous Sulfate 324 MG TABLET.DR PO (07:58)
[2021-11-24] MEDS: carvediloL 12.5 MG TABLET PO ×2 (07:59→21:42)
[2021-11-24] MEDS: Insulin Lispro 100 UNIT/ML 3 ML VIAL SUBCUT ×4 (07:59→21:42)
[2021-11-24] MEDS: Morphine Sulfate 2 MG/ML CARTRIDGE IVPUSH ×3 (08:03→21:42)
[2021-11-24] MEDS: Albuterol/Iprat 2.5/0.5MG 3 ML AMPUL.NEB INHALE ×3 (08:36→20:04)
--- NOTE | 2021-11-24 09:35 | PM.PNPUL ---
Subjective Subjective Date of Service: 11/24/21 Principal diagnosis: HYPOVENTILATION , AND RESP. FAILURE Interval history: Over the last few days patient has improved significantly. Her breathing is better and mental status is staying very clear. She is actively doing deep breathing exercises with pursed lip technique. Diamox was decreased from IV to oral route, and now will be cut down to 250 b.i.d.. She had overnight oximetry recording, however it was done on room air only. It does show that her O2 sat is below 88% for most of the night, which is expected. Venous blood gases this morning show that her pH is 7.41 pCO2 44 and PO2 of 116 ( on O2 ) This indicates that the hypoventilation status has greatly improved. Objective Data Labs CBC & Chem 7: 11/22/21 06:35 11/23/21 06:50 Labs: Laboratory Results - last 24 hr 11/23/21 11/23/21 11/23/21 09:43 11:06 16:41 VBG pH VBG pCO2 VBG pO2 VBG HCO3 VBG O2 Saturation VBG Base Excess POC Glucose 259 H 265 H Influenza Type A (PCR) NEGATIVE Influenza Type B (PCR) NEGATIVE RSV RNA Qual (PCR) NEGATIVE SARS-CoV-2 RNA (RT-PCR) NEGATIVE 11/23/21 11/24/21 11/24/21 19:41 06:47 07:18 VBG pH 7.41 VBG pCO2 44 VBG pO2 116 VBG HCO3 28 H VBG O2 Saturation 100.0 VBG Base Excess 3.0 POC Glucose 283 H 195 H Influenza Type A (PCR) Influenza Type B (PCR) RSV RNA Qual (PCR) SARS-CoV-2 RNA (RT-PCR) ABG ABG results: venous ph=7.41, pco2 44 po2 =116 ( on 2 L/mt ) Microbiology Microbiology Results: Microbiology 11/18/21 15:35 Blood - Venous Blood Culture - Final No growth after 5 days. 11/18/21 15:29 Blood - Venous Blood Culture - Final No growth after 5 days. Physical Exam Vital Signs: Vital Signs: Last Vital Signs Temp 96.1 F L 11/24/21 08:00 Pulse 83 11/24/21 08:00 Resp 19 11/24/21 08:00 BP 176/78 H 11/24/21 08:00 Pulse Ox 92 11/24/21 08:00 BMI result Body Mass Index 53.8 Procedures Date of Service Date of Service: 11/24/21 Assessment and Plan Assessment and plan (1) Morbid obesity: Status: Acute (2) Hypoventilation associated with obesity syndrome: Status: Acute (3) Atelectasis of both lungs: Status: Acute (4) Respiratory failure with hypoxia and hypercapnia: Problem details: This patient with morbid obesity and chronic respiratory insufficiency/hypoventilation syndrome, Has been treated for acute on chronic respiratory failure, initially with intubation followed by high-flow O2. I think at time of admission a rather severe alkalosis may have played some role in causing hypercapnia. She is doing well with O2 2-3 L/minute. Overnight oximetry recording does show hypoxemia throughout the night. Venous blood gases the are almost back to normal. So there is no residual hypercapnia at this time. Recc . Continue DuoNeb updrafts Q i.d. Continue O2 2-3 L/minute with goal to keep O2 sat just above 90%. Follow electrolytes closely and correct if there is any alkalosis are acidosis. If she becomes acidotic , Diamox. Patient should continue deep breathing exercises with incentive spirometry and also with the pursed lip breathing . To check for obstructive sleep apnea, she would need an in sleep lab polysomnogram study at a later date. If patient wishes to be followed up locally, we will be glad to see her in the Pulmonary office, This can be coordinated between the rehab facility and our office. Status: Acute Time Spent With Patient Time: Total time spent is greater than 50% in coordination of care (as documented) at patient's floor/unit and/or counseling patient: Time with patient: 15 - 24 minutes Progress Note: Quality Stroke Does the patient have a stroke diagnosis?: No
[2021-11-24] MEDS: amLODIPine Besylate 5 MG TABLET PO (10:20)
[2021-11-24 10:56] LABS: Glucose, Whole Blood 239 mg/dL (60-115)
--- NOTE | 2021-11-24 14:08 | HO.PM.IMPN ---
Subjective Subjective Date of Service: 11/24/21 Interval History: the patient was seen and evaluated this morning feels comfortable oxygen requirement improved to 3 L Denies any fever, chills or shortness of breath No reported other overnight events. Systemic review: No fever, chills or weakness No chest pain, palpitation no dyspnea, no coughing No abdominal pain, nausea or vomiting No urinary symptoms fresh significantly improved Physical Exam Vital Signs: Vital Signs: Last Vital Signs Temp 96.1 F L 11/24/21 11:32 Pulse 82 11/24/21 11:32 Resp 20 11/24/21 11:32 BP 138/66 11/24/21 11:32 Pulse Ox 93 11/24/21 11:32 BMI result Body Mass Index 53.8 Const: Other: Constitutional : Alert, round face, not in distress Neck : Normal inspection, Supple Cardiovascular : RRR, S1 S2, No lower extremity edema Respiratory : fair bilateral air entry, no fine crackles, wheezes or rhonchi Gastrointestinal: soft, lax, Normal bowel sounds, Non tender Skin : Warm, Dry, improved erythema in lower extremities Neurological : Alert & oriented x3, No focal deficit Objective Data Active Medications Acetaminophen (Acetaminophen 325 Mg Tablet) 975 mg PO Q6H PRN PRN Reason: Pain, Moderate (Pain Scale 4-6 Last Admin: 11/22/21 08:00 Dose: 975 mg Documented by: YESY Acetazolamide (Acetazolamide 250 Mg Tablet) 250 mg PO BID [facility] Albuterol/Ipratropium (Albuterol/Iprat 2.5/0.5mg 3 Ml Ampul.Neb) 3 ml INHALE RQ6H WHILE AWAKE [facility] Last Admin: 11/24/21 08:36 Dose: 3 ml Documented by: LAURA Amlodipine Besylate (Amlodipine Besylate 5 Mg Tablet) 5 mg PO DAILY [facility]; Protocol Last Admin: 11/24/21 10:20 Dose: 5 mg Documented by: TIFFANY Apixaban (Apixaban 5 Mg Tablet) 5 mg PO BID [facility] Last Admin: 11/24/21 07:57 Dose: 5 mg Documented by: TIFFANY Aspirin (Aspirin Enteric Coated 81 Mg Tablet.) 81 mg PO DAILY [facility] Last Admin: 11/24/21 07:58 Dose: 81 mg Documented by: TIFFANY Atorvastatin Calcium (Atorvastatin Calcium 80 Mg Tablet) 80 mg PO BEDTIME [facility] Last Admin: 11/23/21 20:43 Dose: 80 mg Documented by: INEZ Bupropion HCl (Bupropion Hcl Xl 300 Mg Tab.Er.24h) 300 mg PO BEDTIME [facility] Last Admin: 11/23/21 20:43 Dose: 300 mg Documented by: INEZ Carvedilol (Carvedilol 12.5 Mg Tablet) 12.5 mg PO BID [facility]; Protocol Last Admin: 11/24/21 07:59 Dose: 12.5 mg Documented by: TIFFANY Dextrose (Dextrose 50 % 25 Gm/50 Ml Vial) 25 gm IVPUSH Q15M PRN; Protocol PRN Reason: per Hypoglycemia Standing Ord. Doxycycline Hyclate (Doxycycline Hyclate 100 Mg Tablet) 100 mg PO Q12H [facility] Last Admin: 11/24/21 11:48 Dose: 100 mg Documented by: TIFFANY Ferrous Sulfate (Ferrous Sulfate 324 Mg Tablet.) 324 mg PO DAILY [facility] Last Admin: 11/24/21 07:58 Dose: 324 mg Documented by: TIFFANY Furosemide (Furosemide 40 Mg Tablet) 80 mg PO DAILY [facility]; Protocol Last Admin: 11/24/21 07:56 Dose: 80 mg Documented by: TIFFANY Furosemide (Furosemide 40 Mg Tablet) 40 mg PO DAILY@1700 [facility]; Protocol Last Admin: 11/23/21 16:55 Dose: 40 mg Documented by: JOEL Glucose (Glucose Gel 15 Gm Gel..Gram.) 15 gm PO Q15M PRN; Protocol PRN Reason: per Hypoglycemia Standing Ord. Ceftriaxone Sodium 2 gm/ (Sodium Chloride) 50 mls @ 100 mls/hr IV Q24H [facility] Last Infusion: 11/23/21 21:25 Dose: 0 mls/hr Documented by: INEZ Insulin Human Lispro (Insulin Lispro 100 Unit/Ml 3 Ml Vial) 0 unit SUBCUT QIDACHS [facility]; Protocol Last Admin: 11/24/21 13:06 Dose: 4 unit Documented by: TIFFANY Isosorbide Mononitrate (Isosorbide Mononitrate 60 Mg Tab.Er.24h) 60 mg PO DAILY [facility] Last Admin: 11/24/21 07:58 Dose: 60 mg Documented by: TIFFANY Morphine Sulfate (Morphine Sulfate 2 Mg/Ml Cartridge) 2 mg IVPUSH Q4H PRN; Protocol PRN Reason: moderate pain Last Admin: 11/24/21 13:19 Dose: 2 mg Documented by: TIFFANY Labs CBC & Chem 7: 11/22/21 06:35 11/23/21 06:50 Labs: Laboratory Results - last 24 hr 11/23/21 11/23/21 11/24/21 16:41 19:41 06:47 VBG pH 7.41 VBG pCO2 44 VBG pO2 116 VBG HCO3 28 H VBG O2 Saturation 100.0 VBG Base Excess 3.0 POC Glucose 265 H 283 H 11/24/21 11/24/21 07:18 10:52 VBG pH VBG pCO2 VBG pO2 VBG HCO3 VBG O2 Saturation VBG Base Excess POC Glucose 195 H 239 H Microbiology Microbiology Results: Microbiology 11/18/21 15:35 Blood Culture - Final Blood - Venous No growth after 5 days. 11/18/21 15:29 Blood Culture - Final Blood - Venous No growth after 5 days. Assessment and Plan (1) Atelectasis of both lungs: Status: Acute (2) Respiratory failure with hypoxia and hypercapnia: Status: Acute (3) Hypoventilation associated with obesity syndrome: Status: Acute Plan 60F presented with hypoxia and ams, was admitted to the ICU for mechanical ventilation. Patient was diuresed with IV Lasix infusion, was treated for cellulitis of the right anterior leg with ceftriaxone, she had recent C diff and is still on oral vancomycin. Patient was successfully extubated And transition to high-flow oxygen and downgraded to telemetry 11/20/2021. # acute hypoxic and hypercapnic respiratory failure # complicated by toxic metabolic encephalopathy requiring mechanical ventilation # due to obesity hypoventilation # in the setting of acute kidney injury, acute on chronic diastolic CHF wean down to 3 L of oxygen discontinue Lasix infusion continue p.o. Lasix And metolazone monitor BMP continue Diamox for metabolic alkalosis, monitor labs overnight oximetry test with normal pCO2, does not qualify for BiPAP here Pulmonology input appreciated, will need inpatient sleep test done use incentive spirometry history of pulmonary embolism continue Eliquis morbid obesity weight loss recent C diff continue p.o. vancomycin right lower extremity cellulitis continue ceftriaxone recent left total knee arthroplasty revision does not appear infected, outpatient follow-up for staple removal physical debility continue PT diabetes insulin, monitor poin dispo, pending authorization for placement Quality Stroke Does the patient have a stroke diagnosis?: No VTE Prior VTE?: Yes VTE Risk Level:: Medical - moderate - high VTE Device Contraindication: Treatment Not Indicated VTE Drug Contraindication: N/A - Med Ordered
[2021-11-24 16:51] LABS: Glucose, Whole Blood 270 mg/dL (60-115)
[2021-11-24] MEDS: Furosemide 40 MG TABLET PO (16:59)
[2021-11-24] MEDS: Atorvastatin Calcium 80 MG TABLET PO (21:41)
[2021-11-24] MEDS: buPROPion HCl XL 300 MG TAB.ER.24H PO (21:42)
[2021-11-24] MEDS: acetaZOLAMIDE 250 MG TABLET PO (21:42)
[2021-11-24] MEDS: cefTRIAXone sodium 2 GM in 0.9 % Sodium Chloride 50 ML IV (21:42)
[2021-11-25] VITALS (8 sets, daily range): BP systolic 120–161; BP diastolic 56–81; PULSE 68–88; RESP 18–20; TEMP 35.9–36.7; O2SAT 93–97
[2021-11-25] MEDS: Morphine Sulfate 2 MG/ML CARTRIDGE IVPUSH ×2 (03:23→08:40)
[2021-11-25 07:06] LABS: Glucose, Whole Blood 311 mg/dL (60-115)
[2021-11-25 07:15] LABS: Glucose, Whole Blood 195 mg/dL (60-115)
[2021-11-25] MEDS: Insulin Lispro 100 UNIT/ML 3 ML VIAL SUBCUT ×4 (08:33→20:09)
[2021-11-25] MEDS: carvediloL 12.5 MG TABLET PO ×2 (08:34→20:10)
[2021-11-25] MEDS: Furosemide 40 MG TABLET 80 MG PO (08:34)
[2021-11-25] MEDS: Ferrous Sulfate 324 MG TABLET.DR PO (08:34)
[2021-11-25] MEDS: acetaZOLAMIDE 250 MG TABLET PO ×2 (08:34→20:09)
[2021-11-25] MEDS: Apixaban 5 MG TABLET PO ×2 (08:34→20:10)
[2021-11-25] MEDS: Isosorbide Mononitrate 60 MG TAB.ER.24H PO (08:34)
[2021-11-25] MEDS: Aspirin Enteric Coated 81 MG TABLET.DR PO (08:35)
[2021-11-25] MEDS: amLODIPine Besylate 5 MG TABLET PO (08:35)
--- NOTE | 2021-11-25 10:59 | HO.PM.IMPN ---
Subjective Subjective Date of Service: 11/25/21 Interval History: the patient was seen and evaluated this morning feels better overall oxygen requirement improved to 3 L Denies any fever, chills or shortness of breath No reported other overnight events. Systemic review: No fever, chills or weakness No chest pain, palpitation no dyspnea, no coughing No abdominal pain, nausea or vomiting No urinary symptoms fresh significantly improved Physical Exam Vital Signs: Vital Signs: Last Vital Signs Temp 96.6 F L 11/25/21 07:00 Pulse 79 11/25/21 07:00 Resp 20 11/25/21 07:00 BP 161/79 H 11/25/21 07:00 Pulse Ox 94 11/25/21 07:00 BMI result Body Mass Index 53.8 Const: Other: Constitutional : Alert, round face, not in distress Neck : Normal inspection, Supple Cardiovascular : RRR, S1 S2, No lower extremity edema Respiratory : fair bilateral air entry, no fine crackles, wheezes or rhonchi Gastrointestinal: soft, lax, Normal bowel sounds, Non tender Skin : Warm, Dry, improved erythema in lower extremities Neurological : Alert & oriented x3, No focal deficit Objective Data Active Medications Acetaminophen (Acetaminophen 325 Mg Tablet) 975 mg PO Q6H PRN PRN Reason: Pain, Moderate (Pain Scale 4-6 Last Admin: 11/22/21 08:00 Dose: 975 mg Documented by: YESY Acetazolamide (Acetazolamide 250 Mg Tablet) 250 mg PO BID [facility] Last Admin: 11/25/21 08:34 Dose: 250 mg Documented by: LIZZY Albuterol/Ipratropium (Albuterol/Iprat 2.5/0.5mg 3 Ml Ampul.Neb) 3 ml INHALE RQ6H WHILE AWAKE [facility] Last Admin: 11/25/21 07:40 Dose: Not Given Documented by: DESHAWN Non-Admin Reason: Patient Refused Amlodipine Besylate (Amlodipine Besylate 5 Mg Tablet) 5 mg PO DAILY [facility]; Protocol Last Admin: 11/25/21 08:35 Dose: 5 mg Documented by: LIZZY Apixaban (Apixaban 5 Mg Tablet) 5 mg PO BID [facility] Last Admin: 11/25/21 08:34 Dose: 5 mg Documented by: LIZZY Aspirin (Aspirin Enteric Coated 81 Mg Tablet.) 81 mg PO DAILY [facility] Last Admin: 11/25/21 08:35 Dose: 81 mg Documented by: LIZZY Atorvastatin Calcium (Atorvastatin Calcium 80 Mg Tablet) 80 mg PO BEDTIME [facility] Last Admin: 11/24/21 21:41 Dose: 80 mg Documented by: INEZ Bupropion HCl (Bupropion Hcl Xl 300 Mg Tab.Er.24h) 300 mg PO BEDTIME [facility] Last Admin: 11/24/21 21:42 Dose: 300 mg Documented by: INEZ Carvedilol (Carvedilol 12.5 Mg Tablet) 12.5 mg PO BID [facility]; Protocol Last Admin: 11/25/21 08:34 Dose: 12.5 mg Documented by: LIZZY Dextrose (Dextrose 50 % 25 Gm/50 Ml Vial) 25 gm IVPUSH Q15M PRN; Protocol PRN Reason: per Hypoglycemia Standing Ord. Doxycycline Hyclate (Doxycycline Hyclate 100 Mg Tablet) 100 mg PO Q12H [facility] Last Admin: 11/24/21 21:43 Dose: 100 mg Documented by: INEZ Ferrous Sulfate (Ferrous Sulfate 324 Mg Tablet.) 324 mg PO DAILY [facility] Last Admin: 11/25/21 08:34 Dose: 324 mg Documented by: LIZZY Furosemide (Furosemide 40 Mg Tablet) 80 mg PO DAILY [facility]; Protocol Last Admin: 11/25/21 08:34 Dose: 80 mg Documented by: LIZZY Furosemide (Furosemide 40 Mg Tablet) 40 mg PO DAILY@1700 [facility]; Protocol Last Admin: 11/24/21 16:59 Dose: 40 mg Documented by: TIFFANY Glucose (Glucose Gel 15 Gm Gel..Gram.) 15 gm PO Q15M PRN; Protocol PRN Reason: per Hypoglycemia Standing Ord. Ceftriaxone Sodium 2 gm/ (Sodium Chloride) 50 mls @ 100 mls/hr IV Q24H [facility] Last Infusion: 11/24/21 23:45 Dose: 0 mls/hr Documented by: INEZ Insulin Human Lispro (Insulin Lispro 100 Unit/Ml 3 Ml Vial) 0 unit SUBCUT QIDACHS [facility]; Protocol Last Admin: 11/25/21 08:33 Dose: 2 unit Documented by: LIZZY Isosorbide Mononitrate (Isosorbide Mononitrate 60 Mg Tab.Er.24h) 60 mg PO DAILY [facility] Last Admin: 11/25/21 08:34 Dose: 60 mg Documented by: LIZZY Morphine Sulfate (Morphine Sulfate 2 Mg/Ml Cartridge) 2 mg IVPUSH Q4H PRN; Protocol PRN Reason: moderate pain Last Admin: 11/25/21 08:40 Dose: 2 mg Documented by: LIZZY Labs CBC & Chem 7: 11/22/21 06:35 11/23/21 06:50 Labs: Laboratory Results - last 24 hr 11/24/21 11/24/21 11/24/21 10:52 16:46 19:51 POC Glucose 239 H 270 H 311 H 11/25/21 07:12 POC Glucose 195 H Assessment and Plan (1) Atelectasis of both lungs: Status: Acute (2) Respiratory failure with hypoxia and hypercapnia: Status: Acute (3) Hypoventilation associated with obesity syndrome: Status: Acute Plan 60F presented with hypoxia and ams, was admitted to the ICU for mechanical ventilation. Patient was diuresed with IV Lasix infusion, was treated for cellulitis of the right anterior leg with ceftriaxone, she had recent C diff and is still on oral vancomycin. Patient was successfully extubated And transition to high-flow oxygen and downgraded to telemetry 11/20/2021. # acute hypoxic and hypercapnic respiratory failure # complicated by toxic metabolic encephalopathy requiring mechanical ventilation # due to obesity hypoventilation # in the setting of acute kidney injury, acute on chronic diastolic CHF wean down to 3 L of oxygen discontinue Lasix infusion continue p.o. Lasix And metolazone monitor BMP continue Diamox for metabolic alkalosis, monitor labs overnight oximetry test with normal pCO2, does not qualify for BiPAP here Pulmonology input appreciated, will need inpatient sleep test done use incentive spirometry history of pulmonary embolism continue Eliquis morbid obesity weight loss recent C diff continue p.o. vancomycin right lower extremity cellulitis continue ceftriaxone recent left total knee arthroplasty revision does not appear infected, outpatient follow-up for staple removal physical debility continue PT diabetes insulin, monitor poin dispo, pending authorization for placement Quality Stroke Does the patient have a stroke diagnosis?: No VTE Prior VTE?: Yes VTE Risk Level:: Medical - moderate - high VTE Device Contraindication: Treatment Not Indicated VTE Drug Contraindication: N/A - Med Ordered
[2021-11-25 11:28] LABS: Glucose, Whole Blood 247 mg/dL (60-115)
[2021-11-25] MEDS: Albuterol/Iprat 2.5/0.5MG 3 ML AMPUL.NEB INHALE ×2 (13:30→19:46)
[2021-11-25] MEDS: oxyCODONE HCl Immed Release 5 MG TABLET PO ×2 (14:11→20:10)
[2021-11-25 15:50] LABS: Glucose, Whole Blood 283 mg/dL (60-115)
[2021-11-25] MEDS: Furosemide 40 MG TABLET PO (16:57)
[2021-11-25 19:51] LABS: Glucose, Whole Blood 304 mg/dL (60-115)
[2021-11-25] MEDS: cefTRIAXone sodium 2 GM in 0.9 % Sodium Chloride 50 ML IV (20:10)
[2021-11-25] MEDS: buPROPion HCl XL 300 MG TAB.ER.24H PO (20:10)
[2021-11-25] MEDS: Atorvastatin Calcium 80 MG TABLET PO (20:10)
[2021-11-26] VITALS (8 sets, daily range): BP systolic 126–192; BP diastolic 65–74; PULSE 79–90; RESP 17–20; TEMP 36.2–37.1; O2SAT 93–96; BMI 53.7
[2021-11-26 07:13] LABS: Glucose, Whole Blood 218 mg/dL (60-115)
[2021-11-26] MEDS: Apixaban 5 MG TABLET PO ×2 (08:14→20:53)
[2021-11-26] MEDS: amLODIPine Besylate 5 MG TABLET PO (08:14)
[2021-11-26] MEDS: Isosorbide Mononitrate 60 MG TAB.ER.24H PO (08:14)
[2021-11-26] MEDS: Aspirin Enteric Coated 81 MG TABLET.DR PO (08:14)
[2021-11-26] MEDS: Ferrous Sulfate 324 MG TABLET.DR PO (08:14)
[2021-11-26] MEDS: Furosemide 40 MG TABLET 80 MG PO (08:14)
[2021-11-26] MEDS: acetaZOLAMIDE 250 MG TABLET PO ×2 (08:15→20:53)
[2021-11-26] MEDS: Insulin Lispro 100 UNIT/ML 3 ML VIAL SUBCUT ×4 (08:15→20:52)
[2021-11-26] MEDS: carvediloL 12.5 MG TABLET PO ×2 (08:15→20:53)
[2021-11-26 10:52] LABS: COVID-19 Test Negative (Negative); IDNOW Serial# 16C4AD1C
[2021-11-26 11:11] LABS: Glucose, Whole Blood 243 mg/dL (60-115)
--- NOTE | 2021-11-26 11:29 | PC.NURSE ---
Skin/Wound assessment completed today. Patient has healing stage 2 pressure injury to sacrum/bilateral buttocks and stage 2 pressure injury to right heal. Very thin layer of Triad applied to both areas covered with medium foam dressings. Patient has a small abrasion to left upper thigh-Hydrofera blue applied to wound bed covered with small foam. No other skin issues noted at this time.
--- NOTE | 2021-11-26 12:51 | MHC.CLN ---
F/U PT WITH INCREASED NUTRITION NEEDS R/T PRESSURE INJURIES PO INTAKE 75-100% X 4 MEALS DIET RX: 2000DM 2GM NA DIET -APPROPRIATE PT RECEIVING ENSURE MAX BID TO INCREASE PO PROTEIN AND PROMOTE WOUND HEALING SUPP PROVIDES 300KCALS, 60G PROTEIN (62.5% EST. PROTEIN NEEDS) WITH 100% ACCEPTANCE MONITOR PO INTAKE CLOSELY
--- NOTE | 2021-11-26 14:25 | P.PNIM_ITS ---
Subjective Subjective Date of Service: 11/26/21 Interval History: the patient was seen and evaluated this morning feels better overall oxygen requirement improved to 3 L Leg pain and erythema resolved Denies any fever, chills or shortness of breath No reported other overnight events. Systemic review: No fever, chills or weakness No chest pain, palpitation no dyspnea, no coughing No abdominal pain, nausea or vomiting No urinary symptoms fresh significantly improved Physical Exam Vital Signs: Vital Signs: Last Vital Signs Temp 97.4 F 11/26/21 11: Pulse 79 11/26/21 11:22 Resp 19 11/26/21 11:22 BP 144/69 H 11/26/21 11:22 Pulse Ox 96 11/26/21 11:22 BMI result Body Mass Index 53.7 Const: Other: Constitutional : Alert, round face, not in distress Neck : Normal inspection, Supple Cardiovascular : RRR, S1 S2, No lower extremity edema Respiratory : fair bilateral air entry, no fine crackles, wheezes or rhonchi Gastrointestinal: soft, lax, Normal bowel sounds, Non tender Skin : Warm, Dry, improved erythema in lower extremities Neurological : Alert & oriented x3, No focal deficit Objective Data Active Medications Acetaminophen (Acetaminophen 325 Mg Tablet) 975 mg PO Q6H PRN PRN Reason: Pain, Moderate (Pain Scale 4-6 Last Admin: 11/22/21 08:00 Dose: 975 mg Documented by: YESY Acetazolamide (Acetazolamide 250 Mg Tablet) 250 mg PO BID [facility] Last Admin: 11/26/21 08:15 Dose: 250 mg Documented by: RICHIE Albuterol/Ipratropium (Albuterol/Iprat 2.5/0.5mg 3 Ml Ampul.Neb) 3 ml INHALE RQ6H WHILE AWAKE [facility] Last Admin: 11/26/21 14:08 Dose: Not Given Documented by: DESHAWN Non-Admin Reason: pt unavail Amlodipine Besylate (Amlodipine Besylate 5 Mg Tablet) 5 mg PO DAILY [facility]; Protocol Last Admin: 11/26/21 08:14 Dose: 5 mg Documented by: RICHIE Apixaban (Apixaban 5 Mg Tablet) 5 mg PO BID [facility] Last Admin: 11/26/21 08:14 Dose: 5 mg Documented by: IRCHIE Aspirin (Aspirin Enteric Coated 81 Mg Tablet.) 81 mg PO DAILY [facility] Last Admin: 11/26/21 08:14 Dose: 81 mg Documented by: RICHIE Atorvastatin Calcium (Atorvastatin Calcium 80 Mg Tablet) 80 mg PO BEDTIME [facility] Last Admin: 11/25/21 20:10 Dose: 80 mg Documented by: SANJEEV Bupropion HCl (Bupropion Hcl Xl 300 Mg Tab.Er.24h) 300 mg PO BEDTIME [facility] Last Admin: 11/25/21 20:10 Dose: 300 mg Documented by: SANJEEV Carvedilol (Carvedilol 12.5 Mg Tablet) 12.5 mg PO BID [facility]; Protocol Last Admin: 11/26/21 08:15 Dose: 12.5 mg Documented by: RICHIE Dextrose (Dextrose 50 % 25 Gm/50 Ml Vial) 25 gm IVPUSH Q15M PRN; Protocol PRN Reason: per Hypoglycemia Standing Ord. Doxycycline Hyclate (Doxycycline Hyclate 100 Mg Tablet) 100 mg PO Q12H [facility] Last Admin: 11/26/21 11:51 Dose: 100 mg Documented by: RICHIE Ferrous Sulfate (Ferrous Sulfate 324 Mg Tablet.) 324 mg PO DAILY [facility] Last Admin: 11/26/21 08:14 Dose: 324 mg Documented by: RICHIE Furosemide (Furosemide 40 Mg Tablet) 80 mg PO DAILY [facility]; Protocol Last Admin: 11/26/21 08:14 Dose: 80 mg Documented by: RICHIE Furosemide (Furosemide 40 Mg Tablet) 40 mg PO DAILY@1700 [facility]; Protocol Last Admin: 11/25/21 16:57 Dose: 40 mg Documented by: FANTA Glucose (Glucose Gel 15 Gm Gel..Gram.) 15 gm PO Q15M PRN; Protocol PRN Reason: per Hypoglycemia Standing Ord. Ceftriaxone Sodium 2 gm/ (Sodium Chloride) 50 mls @ 100 mls/hr IV Q24H [facility] Last Infusion: 11/25/21 21:48 Dose: 0 mls/hr Documented by: SANJEEV Insulin Human Lispro (Insulin Lispro 100 Unit/Ml 3 Ml Vial) 0 unit SUBCUT QIDACHS [facility]; Protocol Last Admin: 11/26/21 11:51 Dose: 4 unit Documented by: RICHIE Isosorbide Mononitrate (Isosorbide Mononitrate 60 Mg Tab.Er.24h) 60 mg PO DAILY [facility] Last Admin: 11/26/21 08:14 Dose: 60 mg Documented by: RICHIE Oxycodone HCl (Oxycodone Hcl Immed Release 5 Mg Tablet) 5 mg PO Q6H PRN PRN Reason: Pain, Severe (Pain Scale 7-10) Last Admin: 11/25/21 20:10 Dose: 5 mg Documented by: SANJEEV Labs CBC & Chem 7: 11/22/21 06:35 11/23/21 06:50 Labs: Laboratory Results - last 24 hr 11/25/21 11/25/21 11/26/21 15:45 19:48 07:09 POC Glucose 283 H 304 H 218 H COVID-19 (LIS) COVID-19 Clin Com 11/26/21 11/26/21 10:26 11:04 POC Glucose 243 H COVID-19 (LIS) Negative COVID-19 Clin Com See Note Assessment and Plan (1) Atelectasis of both lungs: Status: Acute (2) Respiratory failure with hypoxia and hypercapnia: Status: Acute (3) Hypoventilation associated with obesity syndrome: Status: Acute Plan 60F presented with hypoxia and ams, was admitted to the ICU for mechanical ventilation. Patient was diuresed with IV Lasix infusion, was treated for cellulitis of the right anterior leg with ceftriaxone, she had recent C diff and is still on oral vancomycin. Patient was successfully extubated And transition to high-flow oxygen and downgraded to telemetry 11/20/2021. # acute hypoxic and hypercapnic respiratory failure # complicated by toxic metabolic encephalopathy requiring mechanical ventilation # due to obesity hypoventilation # in the setting of acute kidney injury, acute on chronic diastolic CHF wean down to 3 L of oxygen discontinue Lasix infusion continue p.o. Lasix And metolazone monitor BMP continue Diamox for metabolic alkalosis, monitor labs overnight oximetry test with normal pCO2, does not qualify for BiPAP here Pulmonology input appreciated, will need inpatient sleep test done use incentive spirometry history of pulmonary embolism continue Eliquis morbid obesity weight loss recent C diff continue p.o. vancomycin right lower extremity cellulitis continue ceftriaxone recent left total knee arthroplasty revision does not appear infected, outpatient follow-up for staple removal physical debility continue PT diabetes insulin, monitor poin dispo, pending authorization for placement Quality Stroke Does the patient have a stroke diagnosis?: No VTE Prior VTE?: Yes VTE Risk Level:: Medical - moderate - high VTE Device Contraindication: Treatment Not Indicated VTE Drug Contraindication: N/A - Med Ordered
[2021-11-26] MEDS: oxyCODONE HCl Immed Release 5 MG TABLET PO ×2 (15:43→21:41)
[2021-11-26] MEDS: Albuterol/Iprat 2.5/0.5MG 3 ML AMPUL.NEB INHALE (16:02)
[2021-11-26 16:24] LABS: Glucose, Whole Blood 226 mg/dL (60-115)
[2021-11-26] MEDS: Furosemide 40 MG TABLET PO (16:41)
[2021-11-26 20:31] LABS: Glucose, Whole Blood 335 mg/dL (60-115)
[2021-11-26] MEDS: cefTRIAXone sodium 2 GM in 0.9 % Sodium Chloride 50 ML IV (20:52)
[2021-11-26] MEDS: Atorvastatin Calcium 80 MG TABLET PO (20:53)
[2021-11-26] MEDS: buPROPion HCl XL 300 MG TAB.ER.24H PO (20:53)
[2021-11-27 03:08] VITALS: BP 142/68; PULSE 82; RESP 18; TEMP 36.9; O2SAT 94
[2021-11-27] MEDS: oxyCODONE HCl Immed Release 5 MG TABLET PO (04:34)
[2021-11-27] MEDS: Acetaminophen 325 MG TABLET 975 MG PO (04:37)
[2021-11-27 06:00] VITALS: BMI 50.7
[2021-11-27 07:09] VITALS: BP 137/76; PULSE 83; RESP 20; TEMP 36.7; O2SAT 94
[2021-11-27 07:10] LABS: Glucose, Whole Blood 249 mg/dL (60-115)
[2021-11-27] MEDS: Insulin Lispro 100 UNIT/ML 3 ML VIAL SUBCUT ×2 (07:57→12:12)
[2021-11-27] MEDS: acetaZOLAMIDE 250 MG TABLET PO (07:58)
[2021-11-27] MEDS: Aspirin Enteric Coated 81 MG TABLET.DR PO (07:58)
[2021-11-27] MEDS: Isosorbide Mononitrate 60 MG TAB.ER.24H PO (07:58)
[2021-11-27] MEDS: Furosemide 40 MG TABLET 80 MG PO (07:58)
[2021-11-27] MEDS: Apixaban 5 MG TABLET PO (07:58)
[2021-11-27] MEDS: amLODIPine Besylate 5 MG TABLET PO (07:59)
[2021-11-27] MEDS: carvediloL 12.5 MG TABLET PO (07:59)
[2021-11-27] MEDS: Ferrous Sulfate 324 MG TABLET.DR PO (07:59)
[2021-11-27] MEDS: Albuterol/Iprat 2.5/0.5MG 3 ML AMPUL.NEB INHALE (08:53)
[2021-11-27 08:55] VITALS: PULSE 82; RESP 17; O2SAT 95
[2021-11-27] MEDS: Insulin Glargine,Hum.rec.anlog 100 UNIT/ML 10 ML VIAL 35 UNIT SUBCUT (10:36)
[2021-11-27] MEDS: Morphine Sulfate 4 MG/ML CARTRIDGE 3 MG IVPUSH (10:36)
[2021-11-27 11:02] LABS: Glucose, Whole Blood 346 mg/dL (60-115)
[2021-11-27 11:08] VITALS: BP 146/75; PULSE 77; RESP 20; TEMP 36.7; O2SAT 94
--- NOTE | 2021-11-27 13:17 | MHC.CM.PN ---
Patient has been medically cleared for dc to [facility] today. Patient will dc to [facility] today at 3PM, via [facility]. IMM addressed with Patient at bedside, original has been given to her and a copy has been placed on the chart. Patient is aware of and in agreement with the dc plan./Miah has also been notified of the dc plan.
--- NOTE | 2021-11-27 13:55 | PM.DS ---
DS: Providers Provider Date of Service: 11/27/21 Date of admission: 11/18/21 16:36 Primary care physician: Unknown Physician Consults: 11/20/21 12:59 Consult to Pulmonology Routine Consulting Provider: [facility] [place] Pulmonology Services Reason for consultation: SMILEY, nightime hypoxemia DS: Diagnosis Discharge Diagnosis (1) Atelectasis of both lungs: Status: Acute (2) Respiratory failure with hypoxia and hypercapnia: Status: Acute (3) Hypoventilation associated with obesity syndrome: Status: Acute (4) Morbid obesity: Status: Acute (5) Acute respiratory failure with hypoxia and hypercapnia: Status: Acute (6) Acute exacerbation of congestive heart failure: Status: Acute (7) Pneumonia: Status: Acute DS: Summary Hospital Course Hospital Course: admission note HPI The patient is a 60 year old female with a past medical history of hypertension, congestive heart failure, history is of PEs (on Eliquis ), pressure ulcers,? osteoarthritis, depression, recent C diff infection, and recent left knee replacement At [facility] and discharge to [facility].? Today she presented via ambulance to the emergency room, after the facility noted the patient was lethargic, with ?bluing of lips? and hypoxic with O2 sats 50% on room air.?? On arrival to the emergency room,? patient? was lethargic,? only able to? to follow brief commands, continued to be hypoxic to 85% on room air.? Was initially placed on BiPAP but required emergent intubation for worsening mental status and hypercapnia despite BiPAP support.? Laboratory data was significant for:? ABGs post bipap? 7.29/91/92/ 44.? Chloride 95 serum bicarb 37,? BUN 40, creatinine 2.23, BNP [address]: Bilateral lower lobe collapse/consolidatio. Cardiomegaly and trace pleural effusions. In my review, ? enlarged esophagus, but no mention in report. Will have CT review in the am by radiology? patient issues he received naloxone for acute mental status with no effect.? She also received albumin, 1 L of fluid, Zosyn, and was started on Lasix drip.? Patient will be admitted to the ICU for? management of acute hypoxic and hypercapnic respiratory failure requiring ventilatory support Hospital course The patient was admitted to intensive care unit intubated and ventilated with good response over the course of 2 days in ICU For likely a obesity hypoventilation syndrome. Repeated blood gases showed resolution of for hypercapnia. started on Lasix infusion for evidence of fluid overload with good improvement over the course of hospital stay as she lost significant amount of water. Gabapentin was discontinued of her home medications. Noted to have acute kidney injury at time of presentation which start improved with IV fluid replacement and holding nephrotoxic medications. The treated with IV antibiotics for cellulitis of the right lower extremity with ceftriaxone and doxycycline With noted improvement. She has a history of C diff and she was kept on oral vancomycin during the hospital stay. She was transferred to the medical floor on high-flow oxygen and Lasix drip. She was weaned down to 3 L of oxygen. Started on Diamox for metabolic alkalosis. Plan will be to follow-up with sleep medicine as outpatient for sleep study. To continue antibiotic of Keflex and doxycycline for 2 more days continue physical therapy at the facility Start amlodipine 5 mg daily for blood pressure control. Monitor blood pressure for further adjustments of the dosage. Time Spent with Patient Time attestation: Total time spent providing and/or coordinating discharge services: Discharge coordination time: Greater than 30 minutes Quality: Stroke Does the patient have a stroke diagnosis?: No Physical Exam Vital Signs: Vital Signs: Last Vital Signs Temp 96.5 F L 11/23/21 08:00 Pulse 81 11/23/21 10:50 Resp 12 11/23/21 08:02 BP 167/76 H 11/23/21 08:00 Pulse Ox 97 11/23/21 08:00 BMI result Body Mass Index 53.8 Const: Other: Constitutional : Alert, round face, not in distress Neck : Normal inspection, Supple Cardiovascular : RRR, S1 S2, No lower extremity edema Respiratory : fair bilateral air entry, no fine crackles, wheezes or rhonchi Gastrointestinal: soft, lax, Normal bowel sounds, Non tender Skin : Warm, Dry, improved erythema in lower extremities, healing stage 2 pressure injury to sacrum/bilateral buttocks and stage 2 pressure injury to right heal.? Neurological : Alert & oriented x3, No focal deficit DS: Data Data Completed and Pending Labs on day of discharge: Laboratory Results - last 24 hr 11/22/21 11/22/21 11/22/21 11:12 16:05 19:22 VBG pH VBG pCO2 VBG pO2 VBG HCO3 VBG O2 Saturation VBG Base Excess Sodium Potassium Chloride Carbon Dioxide Anion Gap BUN Creatinine Estim Creat Clear Calc Estimated GFR POC Glucose 235 H 236 H 212 H Random Glucose Calcium B-Natriuretic Peptide Influenza Type A (PCR) Influenza Type B (PCR) RSV RNA Qual (PCR) SARS-CoV-2 RNA (RT-PCR) 11/23/21 11/23/21 11/23/21 06:50 06:50 06:53 VBG pH 7.43 VBG pCO2 45 VBG pO2 98 VBG HCO3 30 H VBG O2 Saturation 98.0 VBG Base Excess 5.5 Sodium 139 Potassium 3.6 Chloride 100 Carbon Dioxide 29 Anion Gap 14 BUN 35 H Creatinine 1.05 Estim Creat Clear Calc 91.0 Estimated GFR 53 POC Glucose Random Glucose 194 H Calcium 9.0 B-Natriuretic Peptide 35 Influenza Type A (PCR) Influenza Type B (PCR) RSV RNA Qual (PCR) SARS-CoV-2 RNA (RT-PCR) 11/23/21 11/23/21 11/23/21 08:04 09:43 11:06 VBG pH VBG pCO2 VBG pO2 VBG HCO3 VBG O2 Saturation VBG Base Excess Sodium Potassium Chloride Carbon Dioxide Anion Gap BUN Creatinine Estim Creat Clear Calc Estimated GFR POC Glucose 165 H 259 H Random Glucose Calcium B-Natriuretic Peptide Influenza Type A (PCR) NEGATIVE Influenza Type B (PCR) NEGATIVE RSV RNA Qual (PCR) NEGATIVE SARS-CoV-2 RNA (RT-PCR) NEGATIVE Preliminary micro results at discharge 11/18/21 15:35 Blood Culture - Preliminary Blood - Venous No growth after 48 hours. 11/18/21 15:29 Blood Culture - Preliminary Blood - Venous No growth after 48 hours. Discharge Plan Discharge Patient Disposition: [facility] Discharge Diagnosis: hypoxic hypercapnic respiratory failure Hypoventilation syndrome pneumonia Referrals: [facility] [place] [Outside] - 1 Week Dolores Sylvester MD [Physician] - 1 Week (Sleep study ) Physician,Andrae J [Primary Care Provider] - 1 Week Discharge Medications: New acetazolamide 250 mg Tablet 500 mg PO DAILY 30 Days Qty: 60 0RF cephalexin 500 mg capsule 500 mg PO Q12H Qty: 4 0RF doxycycline monohydrate 100 mg capsule 100 mg PO Q12H Qty: 4 0RF ipratropium-albuterol 0.5 mg-3 mg(2.5 mg base)/3 mL Solution For Nebulization 3 ml inhalation RQ6H WHILE AWAKE 7 Days 0RF fluticasone propion-salmeterol [AirDuo RespiClick] 113-14 mcg/actuation aerosol powdr breath activated 1 inh inhalation BID Qty: 1 0RF amlodipine 5 mg Tablet 5 mg PO DAILY 30 Days Qty: 30 0RF Protocol: Hold for SBP< HOLD for SBP < : 90 nystatin 100,000 unit/gram Powder 1 appl topical BID 7 Days 0RF Protocol: Apply to: Apply to: affected areas Continued metolazone 2.5 mg Tablet 2.5 mg PO DAILY 0RF Rx Instructions: GIVE 30 MINS BEFORE LASIX atorvastatin 80 mg Tablet 80 mg PO BEDTIME 0RF sennosides [senna] 8.6 mg Tablet 16.2 mg PO DAILY PRN (Reason: Constipation) 0RF acetaminophen 325 mg Tablet 650 mg PO Q4H PRN (Reason: Fever Or Pain) 0RF carvedilol 12.5 mg Tablet 12.5 mg PO BID 0RF Rx Instructions: must administer with a meal/food lidocaine 4 % Adhesive Patch,Medicated 1 patch TOPICAL BID 0RF Rx Instructions: APPLY TO BACK trazodone 50 mg Tablet 25 mg PO BEDTIME PRN (Reason: Insomnia) 0RF polyethylene glycol 3350 [Miralax] 17 gram Powder In Packet 17 g PO DAILY PRN (Reason: Constipation) 0RF tizanidine 4 mg Tablet 4 mg PO Q8H PRN (Reason: Muscle Spasm) 0RF enalapril maleate 20 mg Tablet 40 mg PO DAILY 0RF sertraline 100 mg Tablet 200 mg PO DAILY 0RF melatonin 3 mg Tablet 3 mg PO BEDTIME 0RF aspirin 81 mg Tablet,Delayed Release (Dr/Ec) 81 mg PO DAILY 0RF isosorbide dinitrate 40 mg Capsule, Extended Release 60 mg PO DAILY 0RF magnesium hydroxide [Milk of Magnesia] 400 mg/5 mL Suspension 30 ml PO DAILY PRN (Reason: Constipation) 0RF furosemide 80 mg Tablet 80 mg PO DAILY 0RF ferrous sulfate 325 mg (65 mg iron) Tablet 325 mg PO DAILY 0RF megestrol 40 mg Tablet 40 mg PO Q8H 0RF gabapentin 300 mg Capsule 300 mg PO DAILY@1200 0RF gabapentin 300 mg Capsule 600 mg PO BID 0RF magnesium citrate Solution 150 ml PO DAILY PRN (Reason: Constipation) 0RF Santyl 250 unit/gram Ointment 1 appl TOPICAL DAILY 0RF Rx Instructions: APPLY TO HEEL insulin lispro 100 unit/mL Insulin Pen 22 unit SUBCUT TIDAC 0RF insulin lispro 100 unit/mL Insulin Pen See Protocol unit SUBCUT QIDACHS 0RF Protocol: Insulin Correction Scale Less than or equal to 110 ---- Give (units): 0 111 to 150 Give (units): 0 151 to 200 Give (units): 2 201 to 250 Give (units): 4 251 to 300 Give (units): 6 301 to 350 Give (units): 8 Greater than 350 Give (units): 10 Call MD if Blood Glucose > : 350 Rx Instructions: SLIDING SCALE Saccharomyces boulardii 250 mg Capsule 250 mg PO BID 0RF insulin glargine 100 unit/mL (3 mL) Insulin Pen 45 unit SUBCUT DAILY 0RF oxycodone 10 mg Tablet 10 mg PO DAILY PRN (Reason: Pain (Scale Score 4-6)) 0RF bupropion HCl 450 mg Tablet Extended Release 24 Hr 450 mg PO BEDTIME 0RF apixaban 5 mg Tablet 5 mg PO BID 0RF vancomycin [Vancocin] 125 mg Capsule 125 mg PO QID 0RF Rx Instructions: started 11/11 x 10 days Changed oxycodone 10 mg Tablet 10 mg PO TID PRN (Reason: Pain, Severe) Qty: 0 0RF Discontinued amoxicillin 500 mg Capsule 1,000 mg PO BID 0RF cefadroxil 500 mg Capsule 1,000 mg PO BID 0RF Rx Instructions: 7 DAYS, LAST DAY 11/22 FOR CELLULITIS Discharge Orders: Discharge Order (Routine); Ordered 11/27/21 Ordered By: Tom Batista Diet: advance to usual diet and low salt diet Activity on Discharge: As tolerated Stand Alone Forms: Patient Portal Discharge page Activity Restrictions/Additional Instructions: Wound Care Instructions: Cleanse all wounds with wound cleanser. Apply a small piece of Hydrofera blue to wound bed only to left upper thigh abrasion cover with foam. Apply very thin layer of Triad to sacrum/bilateral buttocks pressure injury cover with medium foam. Please turn and reposition q 2 h. Apply very small amount of Triad to right heel pressure injury cover with foam dressing. Change foam dressings every other day. Care Plan Goals: Read below Health Concerns: Read below Plan of Treatment: Read below Assessment: you were admitted to the hospital for evaluation of difficulty breathing and altered mentation. Blood gas showed carbon dioxide build up in your system as a result of obesity hypoventilation and usage of narcotics. You were intubated in the intensive care unit and wean down as you improved. Your oxygen requirement were weaned down to 3 L of nasal cannula. You were treated for evidence of pneumonia with IV antibiotics. Continue Keflex for 2 more days start amlodipine 5 mg daily for blood pressure control Start Diamox as prescribed Monitor your weight and report any changes to PCP We advise you to lose weight use oxycodone as needed not around the clock You will need a sleep study for evaluation of CPAP need.
== END 2021-11-27 15:22 | disposition skilled nursing facility (03) | DRG 208 ==
LOC: HO.ED 16:17 → HO.EDOVER 16:44 → HO.ICU 17:11 → HO.IMC 11-21 06:58
PROVIDERS: Anesthesiology; Internal Medicine; Nurse Practitioner Family; Physician Assistant Medical; Registered Nurse Community Health; Admitting Provider Internal Medicine Pulmonary Disease; Emergency Provider Emergency Medicine; Visit Provider Student in an Organized Health Care Education/Training Program
DX: J96.01 Acute respiratory failure with hypoxia (principal); G92.8 Other toxic encephalopathy; I50.33 Acute on chronic diastolic (congestive) heart failure; E66.2 Morbid (severe) obesity with alveolar hypoventilation; Z68.43 Body mass index [BMI] 50.0-59.9, adult; E87.4 Mixed disorder of acid-base balance; L03.115 Cellulitis of right lower limb; N17.9 Acute kidney failure, unspecified; L97.419 Non-pressure chronic ulcer of right heel and midfoot with unspecified severity; J98.11 Atelectasis; J96.02 Acute respiratory failure with hypercapnia; E11.621 Type 2 diabetes mellitus with foot ulcer; L89.152 Pressure ulcer of sacral region, stage 2; I11.0 Hypertensive heart disease with heart failure; E11.649 Type 2 diabetes mellitus with hypoglycemia without coma; Z96.652 Presence of left artificial knee joint; Z20.822 Contact with and (suspected) exposure to COVID-19; I95.9 Hypotension, unspecified; Z86.711 Personal history of pulmonary embolism; Z91.040 Latex allergy status; Z88.5 Allergy status to narcotic agent; Z79.01 Long term (current) use of anticoagulants; Z79.82 Long term (current) use of aspirin; Z79.51 Long term (current) use of inhaled steroids; Z79.4 Long term (current) use of insulin; Z79.899 Other long term (current) drug therapy
CPT/HCPCS: 0241U; 36415; 36600; 70450; 71045; 71250; 80048; 80053; 80076; 81003; 82803; 82947; 83605; 83735; 83880; 84100; 84484; 85025; 85027; 85610; 85730; 86140; 87040; 87635; 93005; 93306; 93970; 94002; 94003; 94640; 94660; 94762; 96361; 96374; 96375; 97110; 97163; 97530; 99285; 99291; 99292; J0330; J0690; J0696; J1940; J2250; J2270; J2405; J2543; J3010; P9047

== ENCOUNTER 2022-01-04 20:19 | Inpatient (IN) | payer OTHER, MEDICAID, SELFPAY ==
--- NOTE | ~2022-01-04 | US_ITS ---
EXAMINATION: US VENOUS ULTRASOUND WITH DOPPLER LOWER EXTREMITY, RIGHT CLINICAL INFORMATION: Edema. Pain. Swelling. Skin changes. COMPARISON: Venous duplex Doppler exam bilateral lower extremities 11/18/2021 TECHNIQUE: Ultrasound of the deep veins is performed from the hip to the calf with compression sonography and color and pulse Doppler assessment. Spectral analysis with color-flow imaging is performed. FINDINGS: Body habitus limits study. Scattered No evidence of deep vein thrombosis from groin through the calf. Normal vascular flow seen in the visualized deep veins and Doppler. There is no significant popliteal fossa cyst. If the patient's symptoms persist, followup ultrasound in 5 days 7 days might be of value to exclude proximal propagation from a non-visualized calf vein. US/US venous duplex LE RT IMPRESSION: No DVT demonstrated in the right lower extremity.
--- NOTE | ~2022-01-04 | XR_ITS ---
EXAMINATION: XR chest 1V CLINICAL INFORMATION: Shortness of breath COMPARISON: 11/18/2021 TECHNIQUE: XR chest 1V Tubes and lines: None Lungs and pleura: There is pulmonary vascular congestion, mild interstitial opacification possibly mild interstitial edema. Opacification at left lung base obscuring the left hemidiaphragm, cannot rule out underlying effusion and/or atelectasis. Heart and mediastinum: Cardiac silhouette is enlarged exaggerated by AP technique.. Bones/soft tissue: Skeletal structures included are normal for patient's age. XR/XR chest 1V IMPRESSION: Congestive heart failure. Mild interstitial opacification probably interstitial edema. Left hemidiaphragm is obscured, cannot rule out underlying pleural effusion or atelectasis.
--- NOTE | ~2022-01-04 | CT_ITS ---
EXAMINATION: CT HEAD WITHOUT CONTRAST CLINICAL INFORMATION: Fall. COMPARISON: CT head from 11/18/2021. TECHNIQUE: Contiguous axial imaging was performed from the skull base to vertex without intravenous administration of contrast. This CT examination was performed using dose optimization techniques as appropriate, variously including the following: *Automated exposure control. *Adjustment of mA and/or kV according to patient size (this includes techniques or standardized protocols for targeted exams where dose is matched to indication/reason for exam; i.e. extremities or head). *Use of iterative reconstruction technique. DLP: 1009 mGy-cm FINDINGS: There is no evidence of acute intracranial hemorrhage or edematous territorial infarction. A few foci of hypoattenuation in the periventricular and deep white matter are consistent with mild microangiopathy. Teixeira-white matter differentiation is preserved. Proportional prominence of the ventricles and sulcal spaces. No evidence for obstructive hydrocephalus. No abnormal mass effect or midline shift. No extra-axial fluid collections. No acute soft tissue or osseous abnormalities. The mastoid air cells and paranasal sinuses are clear. There is a nonspecific 1 cm nodular lesion medial to the left medial rectus muscle that appears unchanged compared to 11/18/2021. CT/CT head/brain wo con IMPRESSION: 1. No evidence of acute intracranial hemorrhage or edematous territorial infarction. 2. Mild underlying microangiopathy and generalized cerebral volume loss. 3. There is a nonspecific 1 cm nodular lesion medial to the left medial rectus muscle appears stable compared to 11/18/2021. No additional evidence of acute traumatic injury in this location. This may be further characterized with follow-up orbital MRI.
--- NOTE | 2022-01-04 20:23 | ECG_ITS ---
Test Reason : SEPSIS Blood Pressure : / mmHG Vent. Rate : 080 BPM Atrial Rate : 080 BPM P-R Int : 202 ms QRS Dur : 158 ms QT Int : 414 ms P-R-T Axes : 010 -35 098 degrees QTc Int : 477 ms Normal sinus rhythm Left axis deviation Left bundle branch block Abnormal ECG When compared with ECG of 18-NOV-2021 15:21, No significant change was found Referred By: Garret Stevenson Electronically Signed By:MAREN VIDALES MD
[2022-01-04 20:35] VITALS: BP 147/69; BP 160/68; PULSE 76; PULSE 84; RESP 16; TEMP 36.7; O2SAT 96; BMI 51.6
--- NOTE | 2022-01-04 21:00 | ED_ITS ---
HPI - SOB/Dyspnea General Chief Complaint: Weakness Stated Complaint: low o2 stat, lethargic, fall Time Seen by Provider: 01/04/22 20:23 Source: patient and EMS Mode of arrival: EMS Limitations: no limitations History of Present Illness HPI Narrative: Patient with history of depression hypertension diabetes recurrent cellulitis PE on Eliquis brought by EMS from long-term for increased lethargy and weakness with jitteriness since yesterday ,saturating 90% on 2 L on him today just prior to arrival patient trying to get up from the bed to reach for something and fell hitting her head to the bedside stand no loss of consciousness no seizure activity noticed patient does have recurrent cellulitis of right leg patient taking amoxicillin 1000 mg twice daily started on 12/04 Related Data Home Medications Medication Instructions Recorded Confirmed Saccharomyces boulardii 250 mg 250 mg PO BID 11/18/21 11/18/21 capsule acetaminophen 325 mg tablet 650 mg PO Q4H PRN 11/18/21 11/18/21 apixaban 5 mg tablet 5 mg PO BID 11/18/21 11/18/21 aspirin 81 mg tablet,delayed 81 mg PO DAILY 11/18/21 11/18/21 release atorvastatin 80 mg tablet 80 mg PO BEDTIME 11/18/21 11/18/21 bupropion HCl 450 mg 24 hr tablet, 450 mg PO BEDTIME 11/18/21 11/18/21 extended release carvedilol 12.5 mg tablet 12.5 mg PO BID 11/18/21 11/18/21 collagenase clostridium histo. 250 1 appl TOPICAL DAILY 11/18/21 11/18/21 unit/gram topical ointment (Santyl) enalapril maleate 20 mg tablet 40 mg PO DAILY 11/18/21 11/18/21 ferrous sulfate 325 mg (65 mg 325 mg PO DAILY 11/18/21 11/18/21 iron) tablet furosemide 80 mg tablet 80 mg PO DAILY 11/18/21 11/18/21 gabapentin 300 mg capsule 300 mg PO DAILY@1200 11/18/21 11/18/21 gabapentin 300 mg capsule 600 mg PO BID 11/18/21 11/18/21 insulin glargine 100 unit/mL (3 45 unit SUBCUT DAILY 11/18/21 11/18/21 mL) subcutaneous pen insulin lispro 100 unit/mL 22 unit SUBCUT TIDAC 11/18/21 11/18/21 subcutaneous pen insulin lispro 100 unit/mL See Protocol SUBCUT QIDACHS 11/18/21 11/18/21 subcutaneous pen isosorbide dinitrate 40 mg 60 mg PO DAILY 11/18/21 11/18/21 capsule,extended release lidocaine 4 % topical patch 1 patch TOPICAL BID 11/18/21 11/18/21 magnesium citrate 150 ml PO DAILY PRN 11/18/21 11/18/21 magnesium hydroxide 400 mg/5 mL 30 ml PO DAILY PRN 11/18/21 11/18/21 oral suspension (Milk of MagnMirantis) megestrol 40 mg tablet 40 mg PO Q8H 11/18/21 11/18/21 melatonin 3 mg tablet 3 mg PO BEDTIME 11/18/21 11/18/21 metolazone 2.5 mg tablet 2.5 mg PO DAILY 11/18/21 11/18/21 oxycodone 10 mg tablet 10 mg PO DAILY PRN 11/18/21 11/18/21 polyethylene glycol 3350 17 gram 17 g PO DAILY PRN 11/18/21 11/18/21 oral powder packet (Miralax) sennosides 8.6 mg tablet (senna) 16.2 mg PO DAILY PRN 11/18/21 11/18/21 sertraline 100 mg tablet 200 mg PO DAILY 11/18/21 11/18/21 tizanidine 4 mg tablet 4 mg PO Q8H PRN 11/18/21 11/18/21 trazodone 50 mg tablet 25 mg PO BEDTIME PRN 11/18/21 11/18/21 vancomycin 125 mg capsule 125 mg PO QID 11/18/21 11/18/21 (Vancocin) Previous Rx's Medication Instructions Recorded acetazolamide 250 mg tablet 500 mg PO DAILY 30 Days #60 tab 11/23/21 cephalexin 500 mg capsule 500 mg PO Q12H #4 cap 11/23/21 doxycycline monohydrate 100 mg 100 mg PO Q12H #4 cap 11/23/21 capsule oxycodone 10 mg tablet 10 mg PO TID PRN #0 tab 11/23/21 amlodipine 5 mg tablet 5 mg PO DAILY 30 Days #30 tab 11/26/21 fluticasone 113 mcg-salmeterol 14 1 inh INHALATION BID #1 ea 11/26/21 mcg/actuation breath activated powdr (AirDuo RespiClick) ipratropium 0.5 mg-albuterol 3 mg 3 ml INHALATION RQ6H WHILE AWAKE 7 11/26/21 (2.5 mg base)/3 mL nebulization Days ml soln nystatin 100,000 unit/gram topical 1 appl TOPICAL BID 7 Days g 11/27/21 powder Allergies Allergy/AdvReac Type Severity Reaction Status Date / Time latex Allergy Unknown Unknown Verified 11/19/21 00:26 adhesive tape AdvReac Unknown Unknown Verified 11/19/21 00:25 bupropion [From Wellbutrin] AdvReac Unknown Unknown Verified 11/19/21 00:24 ibuprofen AdvReac Unknown Unknown Verified 11/19/21 00:22 Review of Systems Review of Systems: Yes all other systems are reviewed and are negative [facility] Past Medical History Medical History Anemia Arthritis Atelectasis of both lungs CHF (congestive heart failure) Clostridium difficile infection Depression Diabetes mellitus, type 2 Hypertension Hypoventilation associated with obesity syndrome Morbid obesity SMILEY (obstructive sleep apnea) Pulmonary embolism Respiratory failure with hypoxia and hypercapnia Surgical History History of total knee replacement Social History Social History Household Members: Unknown / Unable to assess Housing: Unknown / Unable to assess Unable to assess alcohol history related to: Unknown Patient Tobacco Use Status: Tobacco use Unknown Substance Use Type: Unknown Advance Directives: No Advance Directives Information Provided: No service: No Physical Exam Vital Signs: Vital Signs: Last Vital Signs Temp 98.1 F 01/04/22 20:35 Pulse 71 01/05/22 00:24 Resp 14 01/05/22 00:24 BP 153/68 H 01/05/22 00:24 Pulse Ox 99 01/05/22 00:24 Oxygen Flow Rate 6 01/04/22 20:35 BMI result Body Mass Index 51.6 Appearance: Alert. Oriented X3. No acute distress. Obese lethargic easy arousable Eyes: No pallor or icterus ENT: Pharynx normal. Oral Mucosa moist Neck: Normal inspection. Neck supple. CVS: Normal heart rate and rhythm. Pulses normal. Respiratory: No respiratory distress. Equal air entry bilateral, no wheezing/rales/rhonchi Abdomen: Soft and nontender. Bowel sounds are present, no mass palpable, no CVA tenderness Skin: Skin warm and dry. Normal skin color. Normal skin turgor. Extremities: Right leg swelling with erythema, tenderness and warmth Neuro: Oriented X 3. No motor deficit. No sensory deficit.No cerebellar signs , cranial nerves II-XII intact MDM - SOB/Dyspnea MDM Narrative Medical decision making narrative: Patient with significant cellulitis of the right leg with episode of shivering at prior to arrival no fever slight leukocytosis , lethargic is secondary to hypercapnia from sleep apnea patient had normal lactic acid level. His Doppler negative for DVT. Will start patient on vancomycin and Zosyn plan to admit for right neck cellulitis as sleep apnea with acute on chronic hypercapnia will place patient on BiPAP Patient repeat ABG after BiPAP improved pH to 7.32 pCO2 42 now will admit the patient Medical Records Attestation: I reviewed the patient's medical records. Lab Data Attestation: I reviewed the patient's lab results. Result diagrams: 01/04/22 21:40 01/04/22 21:40 Labs: Lab Results 01/04/22 01/04/22 01/04/22 Range/Units 21:40 21:40 21:40 WBC 12.8 H (4.8-10.8) X10*3/uL RBC 4.07 L (4.20-5.50) X10*6/uL Hgb 10.6 L (12.0-16.0) g/dl Hct 37.8 (37.0-47.0) % MCV 92.9 (80.0-98.0) fL MCH 26.0 L (27.0-33.0) pg MCHC 28.0 L (31.0-35.0) g/dl RDW 15.5 (11.0-16.0) % Plt Count 279 (160-400) X10*3/uL MPV 9.6 (9.4-12.3) fL Immature Gran % (Auto) 0.5 H (0.0-0.4) % Neut % (Auto) 86.0 H (45-73) % Lymph % (Auto) 7.2 L (20-40) % [place] % (Auto) 4.4 (2-11) % Eos % (Auto) 1.8 (0-4) % Baso % (Auto) 0.1 (0-2) % Lymph # (Auto) 0.9 L (1.2-4.9) X10*3/uL [place] # (Auto) 0.6 (0.1-1.2) X10*3/uL Eos # (Auto) 0.2 (0.0-0.4) X10*3/uL Baso # (Auto) 0.0 (0.0-0.2) X10*3/uL Abs Immat Gran (auto) 0.07 H (0.00-0.03) X10*3/uL Absolute Neuts (auto) 11.0 H (2.0-8.3) x10*3/uL Absolute Nucleated RBC 0.000 (0.0-0.012) X10*3/uL Nucleated RBC % (auto) 0.0 (0.0-0.2) /100WBC PT 15.9 H (9.9-13.0) SEC INR 1.4 H (0.9-1.1) O2 Saturation % ABG pH at Pt Temp (7.35-7.45) ABG pCO2 at Pt Temp (32-45) mmHg ABG pO2 at Pt Temp (83-108) mmHg ABG HCO3 (22-26) mmol/L ABG Base Excess (Actual) mmol/L VBG pH (7.32-7.43) VBG pCO2 mmHg VBG pO2 mmHg VBG HCO3 (22-26) mmol/L VBG O2 Saturation % VBG Base Excess mmol/L Sodium (135-145) mmol/L Potassium (3.3-5.1) mmol/L Chloride (96-108) mmol/L Carbon Dioxide (22-29) mmol/L Anion Gap (12-20) BUN (9-16) mg/dL Creatinine (0.5-1.4) mg/dL Estim Creat Clear Calc Estimated GFR Random Glucose (60-115) mg/dL Lactic Acid (0.5-2.0) mmol/L Calcium (8.4-10.2) mg/dL Magnesium (1.6-2.6) mg/dL Total Bilirubin (0.0-1.0) mg/dL AST (5-31) U/L ALT (0-31) U/L Alkaline Phosphatase (39-117) U/L Troponin I High Sens (<3.5-17.0) ng/L B-Natriuretic Peptide (<100) pg/mL Total Protein (6.5-8.0) g/dL Albumin (3.5-5.0) g/dL COVID-19 (ILS) Negative (Negative) COVID-19 Clin Com See Note 01/04/22 01/04/22 01/04/22 Range/Units 21:40 21:40 21:40 WBC (4.8-10.8) X10*3/uL RBC (4.20-5.50) X10*6/uL Hgb (12.0-16.0) g/dl Hct (37.0-47.0) % MCV (80.0-98.0) fL MCH (27.0-33.0) pg MCHC (31.0-35.0) g/dl RDW (11.0-16.0) % Plt Count (160-400) X10*3/uL MPV (9.4-12.3) fL Immature Gran % (Auto) (0.0-0.4) % Neut % (Auto) (45-73) % Lymph % (Auto) (20-40) % [place] % (Auto) (2-11) % Eos % (Auto) (0-4) % Baso % (Auto) (0-2) % Lymph # (Auto) (1.2-4.9) X10*3/uL [place] # (Auto) (0.1-1.2) X10*3/uL Eos # (Auto) (0.0-0.4) X10*3/uL Baso # (Auto) (0.0-0.2) X10*3/uL Abs Immat Gran (auto) (0.00-0.03) X10*3/uL Absolute Neuts (auto) (2.0-8.3) x10*3/uL Absolute Nucleated RBC (0.0-0.012) X10*3/uL Nucleated RBC % (auto) (0.0-0.2) /100WBC PT (9.9-13.0) SEC INR (0.9-1.1) O2 Saturation % ABG pH at Pt Temp (7.35-7.45) ABG pCO2 at Pt Temp (32-45) mmHg ABG pO2 at Pt Temp (83-108) mmHg ABG HCO3 (22-26) mmol/L ABG Base Excess (Actual) mmol/L VBG pH (7.32-7.43) VBG pCO2 mmHg VBG pO2 mmHg VBG HCO3 (22-26) mmol/L VBG O2 Saturation % VBG Base Excess mmol/L Sodium 142 (135-145) mmol/L Potassium 4.3 (3.3-5.1) mmol/L Chloride 108 (96-108) mmol/L Carbon Dioxide 28 (22-29) mmol/L Anion Gap 10 L (12-20) BUN 32 H (9-16) mg/dL Creatinine 1.26 (0.5-1.4) mg/dL Estim Creat Clear Calc 78.5 Estimated GFR 43 Random Glucose 196 H (60-115) mg/dL Lactic Acid 1.2 (0.5-2.0) mmol/L Calcium 8.5 (8.4-10.2) mg/dL Magnesium 2.1 (1.6-2.6) mg/dL Total Bilirubin 0.3 (0.0-1.0) mg/dL AST 10 (5-31) U/L ALT 10 (0-31) U/L Alkaline Phosphatase 117 D (39-117) U/L Troponin I High Sens 9.7 (<3.5-17.0) ng/L B-Natriuretic Peptide 84 (<100) pg/mL Total Protein 7.4 (6.5-8.0) g/dL Albumin 3.5 (3.5-5.0) g/dL COVID-19 (LIS) (Negative) COVID-19 Clin Com 01/04/22 01/05/22 Range/Units 21:44 01:23 WBC (4.8-10.8) X10*3/uL RBC (4.20-5.50) X10*6/uL Hgb (12.0-16.0) g/dl Hct (37.0-47.0) % MCV (80.0-98.0) fL MCH (27.0-33.0) pg MCHC (31.0-35.0) g/dl RDW (11.0-16.0) % Plt Count (160-400) X10*3/uL MPV (9.4-12.3) fL Immature Gran % (Auto) (0.0-0.4) % Neut % (Auto) (45-73) % Lymph % (Auto) (20-40) % [place] % (Auto) (2-11) % Eos % (Auto) (0-4) % Baso % (Auto) (0-2) % Lymph # (Auto) (1.2-4.9) X10*3/uL [place] # (Auto) (0.1-1.2) X10*3/uL Eos # (Auto) (0.0-0.4) X10*3/uL Baso # (Auto) (0.0-0.2) X10*3/uL Abs Immat Gran (auto) (0.00-0.03) X10*3/uL Absolute Neuts (auto) (2.0-8.3) x10*3/uL Absolute Nucleated RBC (0.0-0.012) X10*3/uL Nucleated RBC % (auto) (0.0-0.2) /100WBC PT (9.9-13.0) SEC INR (0.9-1.1) O2 Saturation 96.0 % ABG pH at Pt Temp 7.32 L (7.35-7.45) ABG pCO2 at Pt Temp 42 (32-45) mmHg ABG pO2 at Pt Temp 84 (83-108) mmHg ABG HCO3 22 (22-26) mmol/L ABG Base Excess (Actual) -3.8 mmol/L VBG pH 7.20 L* (7.32-7.43) VBG pCO2 73 mmHg VBG pO2 45 mmHg VBG HCO3 29 H (22-26) mmol/L VBG O2 Saturation 66.0 % VBG Base Excess -0.4 mmol/L Sodium (135-145) mmol/L Potassium (3.3-5.1) mmol/L Chloride (96-108) mmol/L Carbon Dioxide (22-29) mmol/L Anion Gap (12-20) BUN (9-16) mg/dL Creatinine (0.5-1.4) mg/dL Estim Creat Clear Calc Estimated GFR Random Glucose (60-115) mg/dL Lactic Acid (0.5-2.0) mmol/L Calcium (8.4-10.2) mg/dL Magnesium (1.6-2.6) mg/dL Total Bilirubin (0.0-1.0) mg/dL AST (5-31) U/L ALT (0-31) U/L Alkaline Phosphatase (39-117) U/L Troponin I High Sens (<3.5-17.0) ng/L B-Natriuretic Peptide (<100) pg/mL Total Protein (6.5-8.0) g/dL Albumin (3.5-5.0) g/dL COVID-19 (LIS) (Negative) COVID-19 Clin Com ABG Data Attestation: I personally reviewed and interpreted this ABG as follows: Interpretation: Respiratory acidosis with pH 7.2 ECG Data Attestation: I personally reviewed and interpreted this ECG as follows: Interpretation: Normal sinus rhythm left axis deviation heart rate 80 beats per minute left bundle-branch block no acute ST-T changes no acute change from the previous EKGs Discharge Plan Discharge Clinical Impression: Cellulitis of leg, right, Acute hypercapnic respiratory failure due to obst ructive sleep apnea Patient Disposition: Admitted As Inpatient
[2022-01-04 21:52] LABS: MANUAL DIFF FLAG NO
[2022-01-04 21:54] LABS: Basophils Percent Auto 0.1 % (0-2); Eosinophils Absolute Auto 0.2 X10*3/uL (0.0-0.4); Eosinophils Percent Auto 1.8 % (0-4); Hematocrit 37.8 % (37.0-47.0); Hemoglobin 10.6 g/dl (12.0-16.0); Imm Gran Abs Auto 0.07 X10*3/uL (0.00-0.03); Imm Gran Pct Auto 0.5 % (0.0-0.4); Lymphocytes Absolute Auto 0.9 X10*3/uL (1.2-4.9); Lymphocytes Percent Auto 7.2 % (20-40); Mean Corpuscular Volume 92.9 fL (80.0-98.0); Mean Platelet Volume 9.6 fL (9.4-12.3); Monocytes Absolute Auto 0.6 X10*3/uL (0.1-1.2); Monocytes Percent Auto 4.4 % (2-11); Platelet Count 279 X10*3/uL (160-400); Red Blood Count 4.07 X10*6/uL (4.20-5.50); Red Cell Distribution Width 15.5 % (11.0-16.0); White Blood Count 12.8 X10*3/uL (4.8-10.8)
[2022-01-04 21:56] LABS: VBG Base Excess -0.4 mmol/L; VBG HCO3 29 mmol/L (22-26); VBG pCO2 73 mmHg; VBG pO2 45 mmHg
[2022-01-04] MEDS: Piperacillin Sodium/Tazobactam 3.375 GM in 0.9 % Sodium Chloride 50 ML IV (21:58)
[2022-01-04 22:00] LABS: Venous Blood Gas Refer to POC result
[2022-01-04 22:00] LABS: INTERNATIONAL NORM RATIO 1.4 (0.9-1.1); Prothrombin Time 15.9 SEC (9.9-13.0)
[2022-01-04 22:04] VITALS: BP 147/67; PULSE 84; RESP 20; O2SAT 90
[2022-01-04 22:04] LABS: Lactic Acid 1.2 mmol/L (0.5-2.0)
[2022-01-04 22:08] LABS: Alanine Aminotransferase 10 U/L (0-31); Albumin Level 3.5 g/dL (3.5-5.0); Alkaline Phosphatase 117 U/L (39-117); Anion Gap 10 (12-20); Aspartate Amino Transferase 10 U/L (5-31); Bilirubin Total 0.3 mg/dL (0.0-1.0); Blood Urea Nitrogen 32 mg/dL (9-16); COVID-19 Test Negative (Negative); Calcium 8.5 mg/dL (8.4-10.2); Carbon Dioxide 28 mmol/L (22-29); Chloride 108 mmol/L (96-108); Creatinine Clr Calc Pharmacy 78.5; Estimated Glomerular Filt Rate 43; Glucose Random 196 mg/dL (60-115); Magnesium 2.1 mg/dL (1.6-2.6); Potassium 4.3 mmol/L (3.3-5.1); Sodium 142 mmol/L (135-145); Total Protein 7.4 g/dL (6.5-8.0)
[2022-01-04] MEDS: vancomycin HCL 1,500 MG in 0.9 % Sodium Chloride 500 ML 333.33 MG IV (22:10)
[2022-01-04 22:13] LABS: B Type Natriuretic Peptide 84 pg/mL (<100); Troponin-I High Sensitivity 9.7 ng/L (<3.5-17.0)
[2022-01-04] MEDS: 0.9 % Sodium Chloride 1,000 ML 999 ML IV (23:22)
[2022-01-04 23:41] VITALS: PULSE 69; RESP 18; O2SAT 100
[2022-01-05] VITALS (12 sets, daily range): BP systolic 113–168; BP diastolic 64–79; PULSE 66–84; RESP 14–24; TEMP 36.9–37.3; O2SAT 91–99; BMI 51.6
[2022-01-05 01:33] LABS: ABG Refer to POC result
[2022-01-05 01:33] LABS: ABG Base Excess -3.8 mmol/L; ABG HCO3 22 mmol/L (22-26); ABG pCO2 42 mmHg (32-45); ABG pH 7.32 (7.35-7.45); ABG pO2 84 mmHg (83-108)
--- NOTE | 2022-01-05 01:33 | PC.NURSE ---
Patient arrived via ambulance from [facility] in [place]. Patient was on 6l via nasal cannula. Patient alert and oriented x 2-3. waxes and wanes. Patient denies any pain, or dizziness. tele: sinus rythym 70's. Medications given as per NOV. Patient has some excoriation on bilateral buttocks. Extra protective cream applied. Patient moved to a hospital bed for comfort. at bedside. Will continue with plan of care.
--- NOTE | 2022-01-05 03:33 | PC.NURSE ---
Addendum entered by Annie Arambula 01/05/22 03:35: on BiPAP Original Note: medication reconciliation completed by this RN. Pt resting comfortably at this time. Will continue to monitor. Pending admission at this time.
--- NOTE | 2022-01-05 06:01 | PC.NURSE ---
BiPAP continues. Sleeping/resting comfortably. FIO2 30 at this time. Vitals stable at this time, will continue to monitor.
--- NOTE | 2022-01-05 08:48 | PC.NURSE ---
Dr. Alejandro Bacon to bedside to evaluate patient. Bonnie is alert & oriented, responsive to all questions. BiPAP continues. Vitals remain stable. Will continue to monitor.
--- NOTE | 2022-01-05 09:17 | PHA.MEDREC ---
Pharmacy Consult ? Medication Reconciliation Pharmacy has completed the medication reconciliation. LIST FROM FACILITY
--- NOTE | 2022-01-05 10:50 | P.HPHOSP_ITS ---
History of Present Illness Date of Service: 01/05/22 Chief Complaint: Mental status changes 60 year old female with a past medical history of hypertension, congestive heart failure, history is of PEs (on Eliquis ), pressure ulcers,? osteoarthritis, depression, recent C diff infection, and recent left knee replacement At [facility] and [facility]; recently admitted to [facility] ICU 11/18/2021 through 11/27/2021 for hypercapnic respiratory failure requiring mechanical ventilation. Successfully weaned and discharge to sniff on nocturnal O2. On 12/04/2021 patient is known to be weak and lethargic and transported to [facility] by ambulance. Initial VBG demonstrated a pH of 7.2 VB pCO2 73 and a base excess of -0.4. She was placed on BiPAP at 10/5 and repeat ABGs 4 hours later demonstrated a pH 7.32 with a base excess of -3.8. Upon review all meds, it was noted that she is on oxycodone 10 mg scheduled at bedtime and 10 mg q.8 hours p.r.n.. Remainder of workup essentially unremarkable Review of Systems Review of Systems: Denies chest pain Denies shortness of breath Denies nausea vomiting diarrhea Denies fever chills Complains of right leg pain; left leg pain secondary to left knee replacement [facility] Medical History (Updated 01/05/22 @ 11:02 by Alejandro Bacon DO) Anemia Arthritis Atelectasis of both lungs CHF (congestive heart failure) Clostridium difficile infection Depression Diabetes mellitus, type 2 Hypertension Hypoventilation associated with obesity syndrome Morbid obesity SMILEY (obstructive sleep apnea) Pulmonary embolism Respiratory failure with hypoxia and hypercapnia Surgical History History of total knee replacement Social History Household Members: Unknown / Unable to assess Housing: Unknown / Unable to assess Unable to assess alcohol history related to: Unknown Patient Tobacco Use Status: Tobacco use Unknown Substance Use Type: Unknown Advance Directives: No Advance Directives Information Provided: No service: No Meds Allergies Allergy/AdvReac Type Severity Reaction Status Date / Time latex Allergy Unknown Unknown Verified 01/05/22 03:32 adhesive tape AdvReac Unknown Unknown Verified 01/05/22 03:32 bupropion [From Wellbutrin] AdvReac Unknown Unknown Verified 01/05/22 03:32 ibuprofen AdvReac Unknown Unknown Verified 01/05/22 03:32 Active Medications: Current Medications Acetaminophen (Acetaminophen 325 Mg Tablet) 650 mg PO Q6H PRN PRN Reason: Pain, Mild (Pain Scale 1-3) Amlodipine Besylate (Amlodipine Besylate 5 Mg Tablet) 5 mg PO DAILY [facility]; Protocol Apixaban (Apixaban 5 Mg Tablet) 5 mg PO BID [facility] Aspirin (Aspirin 81 Mg Tab.Chew) 81 mg PO DAILY [facility] Atorvastatin Calcium (Atorvastatin Calcium 80 Mg Tablet) 80 mg PO BEDTIME [facility] Bisacodyl (Bisacodyl 10 Mg Supp.Rect) 10 mg [place] DAILY PRN PRN Reason: Constipation Bupropion HCl (Bupropion Hcl Xl 150 Mg Tab.Er.24h) 450 mg PO BEDTIME [facility] Carvedilol (Carvedilol 6.25 Mg Tablet) 6.25 mg PO BID [facility]; Protocol Dextrose (Dextrose 50 % 25 Gm/50 Ml Syringe) 25 gm IVPUSH Q15M PRN; Protocol PRN Reason: per Hypoglycemia Standing Ord. Enalapril Maleate (Enalapril Maleate 10 Mg Tablet) 40 mg PO DAILY [facility]; Protocol Furosemide (Furosemide 40 Mg Tablet) 80 mg PO DAILY [facility]; Protocol Gabapentin (Gabapentin 300 Mg Capsule) 300 mg PO DAILY@1200 [facility] Gabapentin (Gabapentin 300 Mg Capsule) 600 mg PO BID [facility] Glucose (Glucose Gel 15 Gm Gel..Gram.) 15 gm PO Q15M PRN; Protocol PRN Reason: per Hypoglycemia Standing Ord. Insulin Glargine (Insulin Glargine,Hum.Rec.Anlog 100 Unit/Ml 10 Ml Vial) 50 unit SUBCUT DAILY [facility] Insulin Human Lispro (Insulin Lispro 100 Unit/Ml 3 Ml Vial) 0 unit SUBCUT QIDACHS [facility]; Protocol Isosorbide Mononitrate (Isosorbide Mononitrate 60 Mg Tab.Er.24h) 60 mg PO DAILY [facility]; Protocol Magnesium Citrate (Magnesium Citrate 300 Ml Solution) 150 ml PO DAILY PRN PRN Reason: Constipation Magnesium Hydroxide (Milk Of Magnesia 30 Ml Oral.Susp) 30 ml PO DAILY PRN PRN Reason: Constipation Non-Formulary Medication (Ferrous Sulfate) 325 mg PO DAILY [facility] Non-Formulary Medication (Saccharomyces Boulardii) 250 mg PO BID [facility] Pharmacy Consult (Consult Rx Perform Med Rec) 1 each MISCELLANE ONCE PRN PRN Reason: Consult order Polyethylene Glycol (Polyethylene Glycol 3350 17 Gm Powd.Pack) 17 gm PO DAILY PRN PRN Reason: Constipation Potassium Chloride (Potassium Chloride Er 20 Meq Tab.Er.Prt) 20 meq PO DAILY [facility] Senna (Sennosides 8.6 Mg Tablet) 16.2 mg PO DAILY PRN PRN Reason: Constipation Sertraline HCl (Sertraline Hcl 100 Mg Tablet) 200 mg PO DAILY [facility] Sodium Chloride (0.9 % Sodium Chloride Flush 3 Ml Syringe) 3 ml IVFLUSH QSHIFT [facility] Tizanidine HCl (Tizanidine Hcl 4 Mg Tablet) 4 mg PO Q8H PRN PRN Reason: Muscle Spasm Home Medications Medication Instructions Recorded Confirmed Last Taken Type Saccharomyces boulardii 250 mg 250 mg PO BID 11/18/21 01/05/22 Unknown History capsule acetaminophen 325 mg tablet 650 mg PO Q4H PRN 11/18/21 01/05/22 Unknown History apixaban 5 mg tablet 5 mg PO BID 11/18/21 01/05/22 Unknown History atorvastatin 80 mg tablet 80 mg PO BEDTIME 11/18/21 01/05/22 Unknown History bupropion HCl 450 mg 24 hr tablet, 450 mg PO BEDTIME 11/18/21 01/05/22 Unknown History extended release collagenase clostridium histo. 250 1 appl TOPICAL BEDTIME 11/18/21 01/05/22 Unknown History unit/gram topical ointment (Santyl) enalapril maleate 20 mg tablet 40 mg PO DAILY 11/18/21 01/05/22 Unknown History ferrous sulfate 325 mg (65 mg 325 mg PO DAILY 11/18/21 01/05/22 Unknown History iron) tablet furosemide 80 mg tablet 80 mg PO DAILY 11/18/21 01/05/22 Unknown History gabapentin 300 mg capsule 300 mg PO DAILY@1200 11/18/21 01/05/22 Unknown History gabapentin 300 mg capsule 600 mg PO BID 11/18/21 01/05/22 Unknown History insulin glargine 100 unit/mL (3 50 unit SUBCUT DAILY 11/18/21 01/05/22 Unknown History mL) subcutaneous pen insulin lispro 100 unit/mL 22 unit SUBCUT TIDAC 11/18/21 01/05/22 Unknown History subcutaneous pen insulin lispro 100 unit/mL See Protocol SUBCUT QIDACHS 11/18/21 01/05/22 Unknown History subcutaneous pen lidocaine 4 % topical patch 1 patch TOPICAL DAILY 11/18/21 01/05/22 Unknown History magnesium citrate 150 ml PO DAILY PRN 11/18/21 01/05/22 Unknown History magnesium hydroxide 400 mg/5 mL 30 ml PO DAILY PRN 11/18/21 01/05/22 Unknown History oral suspension (Milk of Magnesia) melatonin 3 mg tablet 3 mg PO BEDTIME 11/18/21 01/05/22 Unknown History oxycodone 10 mg tablet 10 mg PO BEDTIME 11/18/21 01/05/22 Unknown History polyethylene glycol 3350 17 gram 17 g PO DAILY PRN 11/18/21 01/05/22 Unknown History oral powder packet (Miralax) sennosides 8.6 mg tablet (senna) 16.2 mg PO DAILY PRN 11/18/21 01/05/22 Unknown History sertraline 100 mg tablet 200 mg PO DAILY 11/18/21 01/05/22 Unknown History tizanidine 4 mg tablet 4 mg PO Q8H PRN 11/18/21 01/05/22 Unknown History amoxicillin 500 mg capsule 1,000 mg PO Q12H 01/05/22 01/05/22 Unknown History aspirin 81 mg chewable tablet 81 mg PO DAILY 01/05/22 01/05/22 Unknown History bisacodyl 10 mg rectal suppository 10 mg [place] DAILY PRN 01/05/22 01/05/22 Unknown History carvedilol 6.25 mg tablet 6.25 mg PO BID 01/05/22 01/05/22 Unknown History isosorbide mononitrate 60 mg 1 tab PO DAILY 01/05/22 01/05/22 Unknown History tablet,extended release 24 hr megestrol 400 mg/10 mL (10 mL) 40 mg PO Q8H 01/05/22 01/05/22 Unknown History oral suspension oxycodone 10 mg tablet 10 mg PO Q8H PRN 01/05/22 01/05/22 Unknown History potassium chloride 20 mEq 20 meq PO DAILY 01/05/22 01/05/22 Unknown History tablet,extended release Physical Exam Vital Signs and Narrative: Vital Signs: Last Vital Signs Temp 98.1 F 01/04/22 20:35 Pulse 67 04/23/22 06:14 Resp 24 H 01/05/22 07:30 BP 158/79 H 01/05/22 06:14 Pulse Ox 93 01/05/22 06:14 Oxygen Flow Rate 6 01/04/22 20:35 BMI result Body Mass Index 51.6 Const: Other: Sleeping on BiPAP; easily arousable and responding appropriately to questions Resp: Other: Diminished but clear to auscultation bilaterally without rales rhonchi or wheezes Cardio: Other: No S4; positive S1-S2; no S3 murmurs rubs or gallops GI: Other: Obese/soft nontender. Normoactive bowel sounds Neuro: Other: Cranial nerves 2-12 grossly intact as tested. Motor is 5/5 all extremities sensation is intact cognition is appropriate Extrem: Other: Erythema noted right lower extremity demarcated by ache Results Labs CBC and Chem 7: 01/04/22 21:40 01/04/22 21:40 Labs: Laboratory Results - last 24 hr 01/04/22 01/04/22 01/04/22 21:40 21:40 21:40 MCV 92.9 MCH 26.0 L MCHC 28.0 L RDW 15.5 Plt Count 279 MPV 9.6 Immature Gran % (Auto) 0.5 H Neut % (Auto) 86.0 H Lymph % (Auto) 7.2 L [place] % (Auto) 4.4 Eos % (Auto) 1.8 Baso % (Auto) 0.1 Lymph # (Auto) 0.9 L [place] # (Auto) 0.6 Eos # (Auto) 0.2 Baso # (Auto) 0.0 Abs Immat Gran (auto) 0.07 H Absolute Neuts (auto) 11.0 H Absolute Nucleated RBC 0.000 Nucleated RBC % (auto) 0.0 PT 15.9 H INR 1.4 H O2 Saturation ABG pH at Pt Temp ABG pCO2 at Pt Temp ABG pO2 at Pt Temp ABG HCO3 ABG Base Excess (Actual) VBG pH VBG pCO2 VBG pO2 VBG HCO3 VBG O2 Saturation VBG Base Excess Anion Gap Estim Creat Clear Calc Estimated GFR Random Glucose Lactic Acid Calcium Magnesium Total Bilirubin AST ALT Alkaline Phosphatase Troponin I High Sens B-Natriuretic Peptide Total Protein Albumin COVID-19 (LIS) Negative COVID-19 Clin Com See Note 01/04/22 01/04/22 01/04/22 21:40 21:40 21:40 MCV MCH MCHC RDW Plt Count MPV Immature Gran % (Auto) Neut % (Auto) Lymph % (Auto) [place] % (Auto) Eos % (Auto) Baso % (Auto) Lymph # (Auto) [place] # (Auto) Eos # (Auto) Baso # (Auto) Abs Immat Gran (auto) Absolute Neuts (auto) Absolute Nucleated RBC Nucleated RBC % (auto) PT INR O2 Saturation ABG pH at Pt Temp ABG pCO2 at Pt Temp ABG pO2 at Pt Temp ABG HCO3 ABG Base Excess (Actual) VBG pH VBG pCO2 VBG pO2 VBG HCO3 VBG O2 Saturation VBG Base Excess Anion Gap 10 L Estim Creat Clear Calc 78.5 Estimated GFR 43 Random Glucose 196 H Lactic Acid 1.2 Calcium 8.5 Magnesium 2.1 Total Bilirubin 0.3 AST 10 ALT 10 Alkaline Phosphatase 117 D Troponin I High Sens 9.7 B-Natriuretic Peptide 84 Total Protein 7.4 Albumin 3.5 COVID-19 (LIS) PriceMe 01/04/22 01/05/22 21:44 01:23 MCV MCH MCHC RDW Plt Count MPV Immature Gran % (Auto) Neut % (Auto) Lymph % (Auto) [place] % (Auto) Eos % (Auto) Baso % (Auto) Lymph # (Auto) [place] # (Auto) Eos # (Auto) Baso # (Auto) Abs Immat Gran (auto) Absolute Neuts (auto) Absolute Nucleated RBC Nucleated RBC % (auto) PT INR O2 Saturation 96.0 ABG pH at Pt Temp 7.32 L ABG pCO2 at Pt Temp 42 ABG pO2 at Pt Temp 84 ABG HCO3 22 ABG Base Excess (Actual) -3.8 VBG pH 7.20 L* VBG pCO2 73 VBG pO2 45 VBG HCO3 29 H VBG O2 Saturation 66.0 VBG Base Excess -0.4 Anion Gap Estim Creat Clear Calc Estimated GFR Random Glucose Lactic Acid Calcium Magnesium Total Bilirubin AST ALT Alkaline Phosphatase Troponin I High Sens B-Natriuretic Peptide Total Protein Albumin COVID-19 (LIS) [employer] Imaging Radiologist's Impressions: Impressions Chest X-Ray 01/04/22 20:30 IMPRESSION: Congestive heart failure. Mild interstitial opacification probably interstitial edema. Left hemidiaphragm is obscured, cannot rule out underlying pleural effusion or atelectasis. Head CT 01/04/22 21:12 IMPRESSION: 1. No evidence of acute intracranial hemorrhage or edematous territorial infarction. 2. Mild underlying microangiopathy and generalized cerebral volume loss. 3. There is a nonspecific 1 cm nodular lesion medial to the left medial rectus muscle appears stable compared to 11/18/2021. No additional evidence of acute traumatic injury in this location. This may be further characterized with follow-up orbital MRI. Venous Duplex 01/04/22 21:51 IMPRESSION: No DVT demonstrated in the right lower extremity. Assessment and Plan (1) Acute hypercapnic respiratory failure due to obstructive sleep apnea: Status: Acute (2) Cellulitis of leg, right: Status: Acute (3) Diabetes mellitus, type 2: Status: Acute (4) Hypertension: Status: Acute Plan 61-year-old female with known history of nocturnal hypercapnia presents with mental status changes and blood gases consistent with hypercapnic respiratory failure. She was also noted to have ongoing issues with cellulitic changes of the right lower extremity. She was placed on BiPAP overnight in the ER and chaudhari bsequent VBG is are markedly improved. This case was discussed with ICU; will DC BiPAP and checked ABGs in 2 hours. Medically acceptable for monitored floor 1. Acute hypercapnic respiratory failure -excellent results with BiPAP. Will DC and follow-up gases in 2 hours -will order BiPAP 10/5 overnight -will follow daily VBGs 2. Cellulitis of right lower extremity -will continue on vancomycin and Zosyn -follow clinical response. . . May be acute on chronic changes -await cultures 3.DMII -will continue Lantus and outpatient dosing -cover with lispro correctional scale -2000 calorie ADA diet 4.Diastolic CHF (Hx) -will continue aspirin/Coreg/Lasix/Imdur at outpatient doses -asymptomatic; will adjust as indicated -DC Diamox 5. Hypertension -as per 4 ; continue amlodipine/enalapril -adjust as indicated 6. Status post left TKR -will hold oxycodone as likely contributing source to nocturnal hypoventilation -observe; can dose on a p.r.n. basis while on nocturnal BiPAP Full code Apixaban(Hx DVT) Will require 2 midnights going forward for treatment of hypercapnia with BiPAP and establish new baseline. Will need IV antibiotics for lower extremity cellulitis that is unresolved. This cannot be accomplished in a less acute setting Quality Stroke Does the patient have a stroke diagnosis?: No VTE Prior VTE?: Yes VTE Risk Level:: Medical - moderate - high VTE Device Contraindication: Treatment Not Indicated VTE Drug Contraindication: N/A - Med Ordered
[2022-01-05 11:57] LABS: ABG Base Excess -0.3 mmol/L; ABG HCO3 26 mmol/L (22-26); ABG pCO2 50 mmHg (32-45); ABG pH 7.31 (7.35-7.45); ABG pO2 45 mmHg (83-108)
--- NOTE | 2022-01-05 12:08 | PHA.PROG ---
Admission Date/Time: January 05, 2022 10:35 Indication: skin Weight in k.7 kg Adjusted body weight in K.1 [place] body weight in K Obesity Dosing Indication % IBW:137 overweight Serum Creatinine - Last 168 Hours 01/04/22 21:40 Creatinine 1.26 Estimated CrCl and GFR - Last 168 Hours 01/04/22 21:40 Estim Creat Clear Calc 78.5 Estimated GFR 43 Vancomycin Loading Dose: 1500 Current Vancomycin Dosing Regimen:750 mg q 12 hours Vancomycin Monitoring using AUC goal of 400 - 600 range with trough as surrogate marker:496 Date and Time for next Vancomycin Level to be drawn:01/06/11 am Pharmacist Comments on Vancomycin Plan: Vancomycin dosing will take advantage of WhenSoon as a clinical decision support tool that uses Bayesian modeling to calculate individual patient's pharmacokinetic parameters and forecast the patient's drug concentration time course with the target goal AUC 24 range of 400 - 600 mg/L/hr.
[2022-01-05] MEDS: Piperacillin Sodium/Tazobactam 3.375 GM in 0.9 % Sodium Chloride 50 ML IV ×2 (12:12→18:02)
[2022-01-05] MEDS: Potassium Chloride ER 20 MEQ TAB.ER.PRT PO (12:13)
[2022-01-05] MEDS: Gabapentin 300 MG CAPSULE 600 MG PO ×2 (12:13→20:53)
[2022-01-05] MEDS: Enalapril Maleate 10 MG TABLET 40 MG PO (12:13)
[2022-01-05] MEDS: Aspirin 81 MG TAB.CHEW PO (12:14)
[2022-01-05] MEDS: Sertraline HCL 100 MG TABLET 200 MG PO (12:14)
[2022-01-05] MEDS: amLODIPine Besylate 5 MG TABLET PO (12:14)
[2022-01-05] MEDS: Apixaban 5 MG TABLET PO ×2 (12:14→20:53)
[2022-01-05] MEDS: Furosemide 40 MG TABLET 80 MG PO (12:14)
[2022-01-05] MEDS: Gabapentin 300 MG CAPSULE PO (12:14)
[2022-01-05] MEDS: Isosorbide Mononitrate 60 MG TAB.ER.24H PO (12:15)
[2022-01-05] MEDS: Ferrous Sulfate 324 MG TABLET.DR PO (12:15)
[2022-01-05] MEDS: carvediloL 6.25 MG TABLET PO ×2 (12:15→20:52)
[2022-01-05 12:30] LABS: Glucose, Whole Blood 115 mg/dL (60-115)
--- NOTE | 2022-01-05 12:53 | P.CONCC_ITS ---
History of Present Illness Data of Consult Service Date: 01/05/22 Requesting physician: Alejandro Bacon Primary Care Provider: Tita Bal MD HPI Dr. Bacon asked me to take a look at Mrs. Das bec of hypercarbia. I reviewed the patient's chart at length.? I remember her well from her admission here last month.? Notably, this is a lady with morbid obesity and a head and neck habitus very suggestive of SMILEY.? However, if I remember correctly, her told me that she tested negative.? Furthermore, during her admission last month, she was seen by Dr. Mays and followed with overnight pulse oximetry.? She only required nighttime oxygen, she did not require nighttime CPA P or BiPAP. The patient is currently residing at a rehab ctr.? She has been on abx for recurrent cellulitis.? She has also been on Diamox 500 mg daily, along with oxycodone. She was sent to the ED last night bec of lethargy and weakness and a fall.? In [facility] ED, sat was 90% on 3 L oxygen by nasal cannula.? Venous blood gas at 21:44 showed 7.20/73/0.? Serum bicarbonate was 28.? She was put on BiPAP.? Repeat ABG at 01:23 showed 7.32/42/84/3.? Repeat ABG this morning after being taken off BiPAP showed 7.31/50/45/0. I went up to see her on the floor.? She recognized me immediately when I walked in the room.? She also remembered Dr. Bacon?s name who she met just this morning.? She seems fully awake and alert.? She denied any pain.? She?s breathing easy with Sat 93% on 6L NC.? PER, about 3-4 mm. Her right leg is redder than I remember, and it seems slightly warmer than the left leg. IMPRESSION: 1. Morbid obesity 2. Chronic OHS 3. Acute hypercarbic respiratory failure, most likely secondary to acute opiates. 4. Acute respiratory acidosis.? It is quite noticeable that her base excess and bicarbonate were normal on admission, with the pH on her venous gas down to 7.20.? (This is in contrast to most OHS patients who present with significant metabolic alkalosis and a normal or slightly lower than normal pH.)? That suggests acute respiratory acidosis, which in this case would most likely be 2? opiates.? An alternative explanation would be an acute respiratory acidosis, plus a secondary metabolic alkalosis as noted above, plus a primary metabolic acidosis (either from BERNIE or from the Diamox she?s getting; in this case though, her renal indices are lower than baseline, so BERNIE is not likely). 5. Cellulitis right leg. The patient is safe on IMC.? Should she desaturate or her oxygen requirement increase, that might be a sign of hypoventilation and we should be called about that immediately. [facility] Past Medical History Medical History (Updated 01/05/22 @ 12:39 by Zakiya Hendricks, NILDA) Anemia Arthritis Atelectasis of both lungs CHF (congestive heart failure) Clostridium difficile infection Depression Diabetes mellitus, type 2 Hypertension Hypoventilation associated with obesity syndrome Morbid obesity SMILEY (obstructive sleep apnea) Pulmonary embolism Respiratory failure with hypoxia and hypercapnia Surgical History Surgical History History of total knee replacement Social History Social History (Updated 01/05/22 @ 12:40 by Zakiya Hendricks, NILDA) Household Members: Other Housing: [place] Are you a primary care transitions nurse to a significant other at home: No Do you presently have visiting nurse or other home services: No Unable to assess alcohol history related to: Unknown Patient Tobacco Use Status: Tobacco use Unknown Substance Use Type: Unknown service: No Meds Allergies Allergy/AdvReac Type Severity Reaction Status Date / Time latex Allergy Unknown Unknown Verified 01/05/22 03:32 adhesive tape AdvReac Unknown Unknown Verified 01/05/22 03:32 bupropion [From Wellbutrin] AdvReac Unknown Unknown Verified 01/05/22 03:32 ibuprofen AdvReac Unknown Unknown Verified 01/05/22 03:32 Active Medications: Current Medications Acetaminophen (Acetaminophen 325 Mg Tablet) 650 mg PO Q6H PRN PRN Reason: Pain, Mild (Pain Scale 1-3) Amlodipine Besylate (Amlodipine Besylate 5 Mg Tablet) 5 mg PO DAILY [facility]; Protocol Last Admin: 01/05/22 12:14 Dose: 5 mg Documented by: Apixaban (Apixaban 5 Mg Tablet) 5 mg PO BID ROSSY Last Admin: 01/05/22 12:14 Dose: 5 mg Documented by: Aspirin (Aspirin 81 Mg Tab.Chew) 81 mg PO DAILY [facility] Last Admin: 01/05/22 12:14 Dose: 81 mg Documented by: Atorvastatin Calcium (Atorvastatin Calcium 80 Mg Tablet) 80 mg PO BEDTIME [facility] Bisacodyl (Bisacodyl 10 Mg Supp.Rect) 10 mg SD DAILY PRN PRN Reason: Constipation Bupropion HCl (Bupropion Hcl Xl 150 Mg Tab.Er.24h) 450 mg PO BEDTIME [facility] Carvedilol (Carvedilol 6.25 Mg Tablet) 6.25 mg PO BID [facility]; Protocol Last Admin: 01/05/22 12:15 Dose: 6.25 mg Documented by: Dextrose (Dextrose 50 % 25 Gm/50 Ml Syringe) 25 gm IVPUSH Q15M PRN; Protocol PRN Reason: per Hypoglycemia Standing Ord. Enalapril Maleate (Enalapril Maleate 10 Mg Tablet) 40 mg PO DAILY [facility]; Protocol Last Admin: 01/05/22 12:13 Dose: 40 mg Documented by: Ferrous Sulfate (Ferrous Sulfate 324 Mg Tablet.Dr) 324 mg PO DAILY [facility] Last Admin: 01/05/22 12:15 Dose: 324 mg Documented by: Furosemide (Furosemide 40 Mg Tablet) 80 mg PO DAILY [facility]; Protocol Last Admin: 01/05/22 12:14 Dose: 80 mg Documented by: Gabapentin (Gabapentin 300 Mg Capsule) 300 mg PO DAILY@1200 [facility] Last Admin: 01/05/22 12:14 Dose: 300 mg Documented by: Gabapentin (Gabapentin 300 Mg Capsule) 600 mg PO BID [facility] Last Admin: 01/05/22 12:13 Dose: 600 mg Documented by: Glucose (Glucose Gel 15 Gm Gel..Gram.) 15 gm PO Q15M PRN; Protocol PRN Reason: per Hypoglycemia Standing Ord. Piperacillin Sod/Tazobactam (Sod 3.375 gm/ Sodium Chloride) 50 mls @ 100 mls/hr IV Q6H [facility] Last Admin: 01/05/22 12:12 Dose: 100 mls/hr Documented by: Vancomycin HCl 750 mg/ Sodium (Chloride) 265 mls @ 265 mls/hr IV Q12H [facility] Insulin Glargine (Insulin Glargine,Hum.Rec.Anlog 100 Unit/Ml 10 Ml Vial) 50 unit SUBCUT DAILY [facility] Insulin Human Lispro (Insulin Lispro 100 Unit/Ml 3 Ml Vial) 0 unit SUBCUT QIDACHS [facility]; Protocol Last Admin: 01/05/22 12:25 Dose: Not Given Documented by: Isosorbide Mononitrate (Isosorbide Mononitrate 60 Mg Tab.Er.24h) 60 mg PO DAILY [facility]; Protocol Last Admin: 01/05/22 12:15 Dose: 60 mg Documented by: Magnesium Citrate (Magnesium Citrate 300 Ml Solution) 150 ml PO DAILY PRN PRN Reason: Constipation Magnesium Hydroxide (Milk Of Magnesia 30 Ml Oral.Susp) 30 ml PO DAILY PRN PRN Reason: Constipation Pharmacy Consult (Consult Rx Perform Med Rec) 1 each MISCELLANE ONCE PRN PRN Reason: Consult order Pharmacy Consult (Consult Rx Vancomycin Dosing) 1 each MISCELLANE DAILY PRN PRN Reason: Consult order Polyethylene Glycol (Polyethylene Glycol 3350 17 Gm Powd.Pack) 17 gm PO DAILY PRN PRN Reason: Constipation Potassium Chloride (Potassium Chloride Er 20 Meq Tab.Er.Prt) 20 meq PO DAILY [facility] Last Admin: 01/05/22 12:13 Dose: 20 meq Documented by: Senna (Sennosides 8.6 Mg Tablet) 16.2 mg PO DAILY PRN PRN Reason: Constipation Sertraline HCl (Sertraline Hcl 100 Mg Tablet) 200 mg PO DAILY [facility] Last Admin: 01/05/22 12:14 Dose: 200 mg Documented by: Sodium Chloride (0.9 % Sodium Chloride Flush 3 Ml Syringe) 3 ml IVFLUSH [facility] Tizanidine HCl (Tizanidine Hcl 4 Mg Tablet) 4 mg PO Q8H PRN PRN Reason: Muscle Spasm Home Medications Medication Instructions Recorded Confirmed Last Taken Type Saccharomyces boulardii 250 mg 250 mg PO BID 11/18/21 01/05/22 Unknown History capsule acetaminophen 325 mg tablet 650 mg PO Q4H PRN 11/18/21 01/05/22 Unknown History apixaban 5 mg tablet 5 mg PO BID 11/18/21 01/05/22 Unknown History atorvastatin 80 mg tablet 80 mg PO BEDTIME 11/18/21 01/05/22 Unknown History bupropion HCl 450 mg 24 hr tablet, 450 mg PO BEDTIME 11/18/21 01/05/22 Unknown History extended release collagenase clostridium histo. 250 1 appl TOPICAL BEDTIME 11/18/21 01/05/22 Unknown History unit/gram topical ointment (Santyl) enalapril maleate 20 mg tablet 40 mg PO DAILY 11/18/21 01/05/22 Unknown History ferrous sulfate 325 mg (65 mg 325 mg PO DAILY 11/18/21 01/05/22 Unknown History iron) tablet furosemide 80 mg tablet 80 mg PO DAILY 11/18/21 01/05/22 Unknown History gabapentin 300 mg capsule 300 mg PO DAILY@1200 11/18/21 01/05/22 Unknown History gabapentin 300 mg capsule 600 mg PO BID 11/18/21 01/05/22 Unknown History insulin glargine 100 unit/mL (3 50 unit SUBCUT DAILY 11/18/21 01/05/22 Unknown History mL) subcutaneous pen insulin lispro 100 unit/mL 22 unit SUBCUT TIDAC 11/18/21 01/05/22 Unknown History subcutaneous pen insulin lispro 100 unit/mL See Protocol SUBCUT QIDACHS 11/18/21 01/05/22 Unknown History subcutaneous pen lidocaine 4 % topical patch 1 patch TOPICAL DAILY 11/18/21 01/05/22 Unknown History magnesium citrate 150 ml PO DAILY PRN 11/18/21 01/05/22 Unknown History magnesium hydroxide 400 mg/5 mL 30 ml PO DAILY PRN 11/18/21 01/05/22 Unknown History oral suspension (Milk of Magnesia) melatonin 3 mg tablet 3 mg PO BEDTIME 11/18/21 01/05/22 Unknown History oxycodone 10 mg tablet 10 mg PO BEDTIME 11/18/21 01/05/22 Unknown History polyethylene glycol 3350 17 gram 17 g PO DAILY PRN 11/18/21 01/05/22 Unknown History oral powder packet (Miralax) sennosides 8.6 mg tablet (senna) 16.2 mg PO DAILY PRN 11/18/21 01/05/22 Unknown History sertraline 100 mg tablet 200 mg PO DAILY 11/18/21 01/05/22 Unknown History tizanidine 4 mg tablet 4 mg PO Q8H PRN 11/18/21 01/05/22 Unknown History amoxicillin 500 mg capsule 1,000 mg PO Q12H 01/05/22 01/05/22 Unknown History aspirin 81 mg chewable tablet 81 mg PO DAILY 01/05/22 01/05/22 Unknown History bisacodyl 10 mg rectal suppository 10 mg SD DAILY PRN 01/05/22 01/05/22 Unknown History carvedilol 6.25 mg tablet 6.25 mg PO BID 01/05/22 01/05/22 Unknown History isosorbide mononitrate 60 mg 1 tab PO DAILY 01/05/22 01/05/22 Unknown History tablet,extended release 24 hr megestrol 400 mg/10 mL (10 mL) 40 mg PO Q8H 01/05/22 01/05/22 Unknown History oral suspension oxycodone 10 mg tablet 10 mg PO Q8H PRN 01/05/22 01/05/22 Unknown History potassium chloride 20 mEq 20 meq PO DAILY 01/05/22 01/05/22 Unknown History tablet,extended release Physical Exam Vital Signs: Vital Signs: Last Vital Signs Temp 98.4 F 01/05/22 12:00 Pulse 84 01/05/22 12:00 Resp 22 H 01/05/22 12:00 BP 149/70 H 01/05/22 12:00 Pulse Ox 93 01/05/22 12:00 Oxygen Flow Rate 6 01/04/22 20:35 BMI result Body Mass Index 51.6 Results Labs CBC & Chem 7: 01/04/22 21:40 01/04/22 21:40 Labs: Short CBC 01/04/22 Range/Units 21:40 WBC 12.8 H (4.8-10.8) X10*3/uL Hgb 10.6 L (12.0-16.0) g/dl Hct 37.8 (37.0-47.0) % Plt Count 279 (160-400) X10*3/uL BMP 01/04/22 21:40 Sodium 142 Potassium 4.3 Chloride 108 Carbon Dioxide 28 BUN 32 H Creatinine 1.26 Calcium 8.5 Liver Function 01/04/22 Range/Units 21:40 Total Bilirubin 0.3 (0.0-1.0) mg/dL AST 10 (5-31) U/L ALT 10 (0-31) U/L Alkaline Phosphatase 117 D (39-117) U/L Albumin 3.5 (3.5-5.0) g/dL
[2022-01-05] MEDS: vancomycin HCL 750 MG in 0.9 % Sodium Chloride 250 ML 265 MG IV (13:14)
[2022-01-05 15:37] LABS: Glucose, Whole Blood 203 mg/dL (60-115)
[2022-01-05 15:57] LABS: ABG Refer to POC result
[2022-01-05] MEDS: Insulin Lispro 100 UNIT/ML 3 ML VIAL SUBCUT ×2 (16:20→20:54)
[2022-01-05 19:50] LABS: Glucose, Whole Blood 218 mg/dL (60-115)
[2022-01-05] MEDS: Atorvastatin Calcium 80 MG TABLET PO (20:53)
[2022-01-05] MEDS: buPROPion HCl XL 150 MG TAB.ER.24H 450 MG PO (20:53)
[2022-01-05] MEDS: 0.9 % Sodium Chloride Flush 3 ML SYRINGE IVFLUSH (20:54)
[2022-01-06] MEDS: Acetaminophen 325 MG TABLET 650 MG PO (00:08)
[2022-01-06] MEDS: Piperacillin Sodium/Tazobactam 3.375 GM in 0.9 % Sodium Chloride 50 ML IV ×4 (00:10→17:55)
[2022-01-06] MEDS: vancomycin HCL 750 MG in 0.9 % Sodium Chloride 250 ML 265 MG IV (00:43)
[2022-01-06 04:00] VITALS: BP 135/64; PULSE 66; RESP 16; TEMP 37; O2SAT 92
[2022-01-06 07:15] VITALS: BP 145/67; PULSE 75; RESP 20; TEMP 37; O2SAT 96
[2022-01-06 07:20] LABS: MANUAL DIFF FLAG NO
[2022-01-06 07:24] LABS: Basophils Percent Auto 0.2 % (0-2); Eosinophils Absolute Auto 0.2 X10*3/uL (0.0-0.4); Eosinophils Percent Auto 2.6 % (0-4); Hematocrit 31.7 % (37.0-47.0); Hemoglobin 9.1 g/dl (12.0-16.0); Imm Gran Abs Auto 0.03 X10*3/uL (0.00-0.03); Imm Gran Pct Auto 0.3 % (0.0-0.4); Lymphocytes Absolute Auto 1.4 X10*3/uL (1.2-4.9); Lymphocytes Percent Auto 15.4 % (20-40); Mean Corpuscular HGB Conc 28.7 g/dl (31.0-35.0); Mean Corpuscular Hemoglobin 25.6 pg (27.0-33.0); Mean Corpuscular Volume 89.3 fL (80.0-98.0); Mean Platelet Volume 9.5 fL (9.4-12.3); Monocytes Absolute Auto 0.7 X10*3/uL (0.1-1.2); Monocytes Percent Auto 7.2 % (2-11); Neutrophils Absolute Auto 6.8 x10*3/uL (2.0-8.3); Neutrophils Percent Auto 74.3 % (45-73); Platelet Count 236 X10*3/uL (160-400); Red Blood Count 3.55 X10*6/uL (4.20-5.50); Red Cell Distribution Width 15.9 % (11.0-16.0); White Blood Count 9.1 X10*3/uL (4.8-10.8)
[2022-01-06 07:37] LABS: Glucose, Whole Blood 114 mg/dL (60-115)
[2022-01-06 07:42] LABS: VBG Base Excess -2.4 mmol/L; VBG HCO3 22 mmol/L (22-26); VBG pCO2 39 mmHg; VBG pH 7.36 (7.32-7.43); VBG pO2 172 mmHg
[2022-01-06 08:01] LABS: Venous Blood Gas Refer to POC result
[2022-01-06 09:03] LABS: Alanine Aminotransferase 7 U/L (0-31); Alkaline Phosphatase 90 U/L (39-117); Anion Gap 10 (12-20); Aspartate Amino Transferase 9 U/L (5-31); Bilirubin Total 0.5 mg/dL (0.0-1.0); Calcium 8.3 mg/dL (8.4-10.2); Carbon Dioxide 25 mmol/L (22-29); Chloride 109 mmol/L (96-108); Creatinine Clr Calc Pharmacy 117.6; Estimated Glomerular Filt Rate > 60; Glucose Fasting 123 mg/dL (60-99); Sodium 140 mmol/L (135-145); Total Protein 6.3 g/dL (6.5-8.0)
[2022-01-06] MEDS: 0.9 % Sodium Chloride Flush 3 ML SYRINGE IVFLUSH ×2 (09:29→21:18)
[2022-01-06] MEDS: Isosorbide Mononitrate 60 MG TAB.ER.24H PO (09:29)
[2022-01-06] MEDS: Gabapentin 300 MG CAPSULE 600 MG PO ×2 (09:29→21:17)
[2022-01-06] MEDS: Aspirin 81 MG TAB.CHEW PO (09:29)
[2022-01-06] MEDS: Ferrous Sulfate 324 MG TABLET.DR PO (09:29)
[2022-01-06] MEDS: Enalapril Maleate 10 MG TABLET 40 MG PO (09:30)
[2022-01-06] MEDS: Apixaban 5 MG TABLET PO ×2 (09:30→21:17)
[2022-01-06] MEDS: carvediloL 6.25 MG TABLET PO ×2 (09:30→21:17)
[2022-01-06] MEDS: Furosemide 40 MG TABLET 80 MG PO (09:30)
[2022-01-06] MEDS: amLODIPine Besylate 5 MG TABLET PO (09:30)
[2022-01-06] MEDS: Insulin Glargine,Hum.rec.anlog 100 UNIT/ML 10 ML VIAL 50 UNIT SUBCUT (09:30)
[2022-01-06] MEDS: Potassium Chloride ER 20 MEQ TAB.ER.PRT PO (09:30)
[2022-01-06] MEDS: Sertraline HCL 100 MG TABLET 200 MG PO (09:31)
[2022-01-06 09:34] LABS: Blood Urea Nitrogen 18 mg/dL (9-16)
--- NOTE | 2022-01-06 10:23 | MHC.CM.PN ---
CM met with Patient at bedside. Patient came to [facility] from [facility] @ [place] [facility] and the goal is to return there; CM has initiated and will follow for dc planning.Patient will need to return to SNF on new Bipap. Patient typically lives in a house with her ; her and Niece are her Caregivers at home. Patient has been bed bound for the past 2 1/2 years[address] Dolly Montoya at [facility] in [place], and Patient received Covid/J&J vax and Pfizer booster. Patient has had [facility] but has not been home while on O2.
[2022-01-06 10:55] LABS: Glucose, Whole Blood 208 mg/dL (60-115)
[2022-01-06 11:07] VITALS: BP 143/74; PULSE 80; RESP 22; TEMP 36.9; O2SAT 94
[2022-01-06] MEDS: Insulin Lispro 100 UNIT/ML 3 ML VIAL SUBCUT ×2 (11:39→21:17)
[2022-01-06] MEDS: Gabapentin 300 MG CAPSULE PO (11:39)
[2022-01-06 11:58] LABS: Vancomycin Trough 11.3 mcg/mL (10.0-20.0)
--- NOTE | 2022-01-06 12:34 | HE.PHANOTE ---
Addendum entered by Dominique Wilkins [facility] 01/06/22 12:35: next trough due 01/07/22 at 1100. Original Note: Vancomycin Dosing Addendum Vancomycin trough 11.3. Increased dose to 1000 mg q12h as predicted AUC with 750 mg q12h subtherapeutic. Renal fxn improving...cr went from 1.26 yesterday to 0.84 today. Predicted AUC 449 using obese model.
[2022-01-06] MEDS: vancomycin HCL 1,000 MG in 0.9 % Sodium Chloride 250 ML 270 MG IV (12:50)
--- NOTE | 2022-01-06 15:08 | P.PNIM_ITS ---
Subjective Subjective Date of Service: 01/06/22 Interval History: Feels much better today after a night on BiPAP. Does complain of worsening of chronic low back pain Review of Systems Denies chest pain Denies shortness of breath Denies nausea vomiting diarrhea Denies fever chills Complains of right leg pain; left leg pain secondary to left knee replacement Physical Exam Vital Signs: Vital Signs: Last Vital Signs Temp 98.4 F 01/06/22 11:07 Pulse 80 01/06/22 11:07 Resp 22 H 01/06/22 11:07 BP 143/74 H 01/06/22 11:07 Pulse Ox 94 01/06/22 11:07 Oxygen Flow Rate 6 01/04/22 20:35 BMI result Body Mass Index 51.6 Const: Other: Sleeping on BiPAP; easily arousable and responding appropriately to questions Resp: Other: Diminished but clear to auscultation bilaterally without rales rhonchi or wheezes Cardio: Other: No S4; positive S1-S2; no S3 murmurs rubs or gallops GI: Other: Obese/soft nontender. Normoactive bowel sounds Neuro: Other: Cranial nerves 2-12 grossly intact as tested. Motor is 5/5 all extremities sensation is intact cognition is appropriate Extrem: Other: Erythema noted right lower extremity demarcated by ache Objective Data Active Medications Acetaminophen (Acetaminophen 325 Mg Tablet) 650 mg PO Q6H PRN PRN Reason: Pain, Mild (Pain Scale 1-3) Last Admin: 01/06/22 00:08 Dose: 650 mg Documented by: HENRY Amlodipine Besylate (Amlodipine Besylate 5 Mg Tablet) 5 mg PO DAILY [facility]; Protocol Last Admin: 01/06/22 09:30 Dose: 5 mg Documented by: MEGAN Apixaban (Apixaban 5 Mg Tablet) 5 mg PO BID [facility] Last Admin: 01/06/22 09:30 Dose: 5 mg Documented by: MEGAN Aspirin (Aspirin 81 Mg Tab.Chew) 81 mg PO DAILY [facility] Last Admin: 01/06/22 09:29 Dose: 81 mg Documented by: MEGAN Atorvastatin Calcium (Atorvastatin Calcium 80 Mg Tablet) 80 mg PO BEDTIME [facility] Last Admin: 01/05/22 20:53 Dose: 80 mg Documented by: HENRY Bisacodyl (Bisacodyl 10 Mg Supp.Rect) 10 mg [place] DAILY PRN PRN Reason: Constipation Bupropion HCl (Bupropion Hcl Xl 150 Mg Tab.Er.24h) 450 mg PO BEDTIME [facility] Last Admin: 01/05/22 20:53 Dose: 450 mg Documented by: HENRY Carvedilol (Carvedilol 6.25 Mg Tablet) 6.25 mg PO BID [facility]; Protocol Last Admin: 01/06/22 09:30 Dose: 6.25 mg Documented by: MEGAN Dextrose (Dextrose 50 % 25 Gm/50 Ml Syringe) 25 gm IVPUSH Q15M PRN; Protocol PRN Reason: per Hypoglycemia Standing Ord. Enalapril Maleate (Enalapril Maleate 10 Mg Tablet) 40 mg PO DAILY [facility]; Protocol Last Admin: 01/06/22 09:30 Dose: 40 mg Documented by: MEGAN Ferrous Sulfate (Ferrous Sulfate 324 Mg Tablet.Dr) 324 mg PO DAILY [facility] Last Admin: 01/06/22 09:29 Dose: 324 mg Documented by: MEGAN Furosemide (Furosemide 40 Mg Tablet) 80 mg PO DAILY [facility]; Protocol Last Admin: 01/06/22 09:30 Dose: 80 mg Documented by: MEGAN Gabapentin (Gabapentin 300 Mg Capsule) 300 mg PO DAILY@1200 [facility] Last Admin: 01/06/22 11:39 Dose: 300 mg Documented by: MEGAN Gabapentin (Gabapentin 300 Mg Capsule) 600 mg PO BID [facility] Last Admin: 01/06/22 09:29 Dose: 600 mg Documented by: MEGAN Glucose (Glucose Gel 15 Gm Gel..Gram.) 15 gm PO Q15M PRN; Protocol PRN Reason: per Hypoglycemia Standing Ord. Piperacillin Sod/Tazobactam (Sod 3.375 gm/ Sodium Chloride) 50 mls @ 100 mls/hr IV Q6H [facility] Last Infusion: 01/06/22 12:34 Dose: 0 mls/hr Documented by: MEGAN Vancomycin HCl 1,000 mg/ (Sodium Chloride) 270 mls @ 270 mls/hr IV Q12H [facility] Last Infusion: 01/06/22 14:33 Dose: 0 mls/hr Documented by: MEGAN Insulin Glargine (Insulin Glargine,Hum.Rec.Anlog 100 Unit/Ml 10 Ml Vial) 50 unit SUBCUT DAILY [facility] Last Admin: 01/06/22 09:30 Dose: 50 unit Documented by: MEGAN Insulin Human Lispro (Insulin Lispro 100 Unit/Ml 3 Ml Vial) 0 unit SUBCUT QIDACHS [facility]; Protocol Last Admin: 01/06/22 11:39 Dose: 4 unit Documented by: MEGAN Isosorbide Mononitrate (Isosorbide Mononitrate 60 Mg Tab.Er.24h) 60 mg PO DAILY [facility]; Protocol Last Admin: 01/06/22 09:29 Dose: 60 mg Documented by: MEGAN Magnesium Citrate (Magnesium Citrate 300 Ml Solution) 150 ml PO DAILY PRN PRN Reason: Constipation Magnesium Hydroxide (Milk Of Magnesia 30 Ml Oral.Susp) 30 ml PO DAILY PRN PRN Reason: Constipation Pharmacy Consult (Consult Rx Perform Med Rec) 1 each MISCELLANE ONCE PRN PRN Reason: Consult order Pharmacy Consult (Consult Rx Vancomycin Dosing) 1 each MISCELLANE DAILY PRN PRN Reason: Consult order Polyethylene Glycol (Polyethylene Glycol 3350 17 Gm Powd.Pack) 17 gm PO DAILY PRN PRN Reason: Constipation Potassium Chloride (Potassium Chloride Er 20 Meq Tab.Er.Prt) 20 meq PO DAILY [facility] Last Admin: 01/06/22 09:30 Dose: 20 meq Documented by: MEGAN Senna (Sennosides 8.6 Mg Tablet) 16.2 mg PO DAILY PRN PRN Reason: Constipation Sertraline HCl (Sertraline Hcl 100 Mg Tablet) 200 mg PO DAILY [facility] Last Admin: 01/06/22 09:31 Dose: 200 mg Documented by: MEGAN Sodium Chloride (0.9 % Sodium Chloride Flush 3 Ml Syringe) 3 ml IVFLUSH QSHIFT [facility] Last Admin: 01/06/22 09:29 Dose: 3 ml Documented by: MEGAN Tizanidine HCl (Tizanidine Hcl 4 Mg Tablet) 4 mg PO Q8H PRN PRN Reason: Muscle Spasm Labs CBC & Chem 7: 01/06/22 07:02 01/06/22 07:02 Labs: Laboratory Results - last 24 hr 01/05/22 01/05/22 01/06/22 15:33 19:47 07:02 MCV 89.3 MCH 25.6 L MCHC 28.7 L RDW 15.9 Plt Count 236 MPV 9.5 Immature Gran % (Auto) 0.3 Neut % (Auto) 74.3 H Lymph % (Auto) 15.4 L Winkler % (Auto) 7.2 Eos % (Auto) 2.6 Baso % (Auto) 0.2 Lymph # (Auto) 1.4 Winkler # (Auto) 0.7 Eos # (Auto) 0.2 Baso # (Auto) 0.0 Abs Immat Gran (auto) 0.03 Absolute Neuts (auto) 6.8 Absolute Nucleated RBC 0.000 Nucleated RBC % (auto) 0.0 VBG pH VBG pCO2 VBG pO2 VBG HCO3 VBG O2 Saturation VBG Base Excess Anion Gap Estim Creat Clear Calc Estimated GFR POC Glucose 203 H 218 H Fasting Glucose Calcium Total Bilirubin AST ALT Alkaline Phosphatase Total Protein Albumin Vancomycin Trough 01/06/22 01/06/22 01/06/22 07:02 07:32 07:34 MCV MCH MCHC RDW Plt Count MPV Immature Gran % (Auto) Neut % (Auto) Lymph % (Auto) Winkler % (Auto) Eos % (Auto) Baso % (Auto) Lymph # (Auto) Winkler # (Auto) Eos # (Auto) Baso # (Auto) Abs Immat Gran (auto) Absolute Neuts (auto) Absolute Nucleated RBC Nucleated RBC % (auto) VBG pH 7.36 VBG pCO2 39 VBG pO2 172 VBG HCO3 22 VBG O2 Saturation 99.0 VBG Base Excess -2.4 Anion Gap 10 L Estim Creat Clear Calc 117.6 Estimated GFR > 60 POC Glucose 114 Fasting Glucose 123 H Calcium 8.3 L Total Bilirubin 0.5 AST 9 ALT 7 Alkaline Phosphatase 90 D Total Protein 6.3 L Albumin 3.0 L Vancomycin Trough 01/06/22 01/06/22 10:50 11:04 MCV MCH MCHC RDW Plt Count MPV Immature Gran % (Auto) Neut % (Auto) Lymph % (Auto) Winkler % (Auto) Eos % (Auto) Baso % (Auto) Lymph # (Auto) Winkler # (Auto) Eos # (Auto) Baso # (Auto) Abs Immat Gran (auto) Absolute Neuts (auto) Absolute Nucleated RBC Nucleated RBC % (auto) VBG pH VBG pCO2 VBG pO2 VBG HCO3 VBG O2 Saturation VBG Base Excess Anion Gap Estim Creat Clear Calc Estimated GFR POC Glucose 208 H Fasting Glucose Calcium Total Bilirubin AST ALT Alkaline Phosphatase Total Protein Albumin Vancomycin Trough 11.3 Microbiology Microbiology Results: Microbiology 01/04/22 21:40 Blood Culture - Preliminary Blood - Venous No growth after 24 hours. 01/04/22 21:40 Blood Culture - Preliminary Blood - Venous No growth after 24 hours. Assessment and Plan (1) Acute hypercapnic respiratory failure due to obstructive sleep apnea: Status: Acute (2) Cellulitis of leg, right: Status: Acute (3) Diabetes mellitus, type 2: Status: Acute (4) Hypertension: Status: Acute Plan 61-year-old female with known history of nocturnal hypercapnia presents with mental status changes and blood gases consistent with hypercapnic respiratory failure. She was also noted to have ongoing issues with cellulitic changes of the right lower extremity. She was placed on BiPAP overnight in the ER and subsequent VBG is are markedly improved. This case was discussed with ICU; will DC BiPAP and checked ABGs in 2 hours. Medically acceptable for monitored floor 1. Acute hypercapnic respiratory failure -excellent results with BiPAP (nocturnal) -will order BiPAP 10/5 overnight -VBG is normalized this a.m. -discussed with SNF; will be able to provide BiPAP tomorrow evening 2. Cellulitis of right lower extremity -will continue on vancomycin and Zosyn -follow clinical response. . . May be acute on chronic changes -await cultures 3.DMII -will continue Lantus and outpatient dosing -cover with lispro correctional scale -2000 calorie ADA diet 4.Diastolic CHF (Hx) -will continue aspirin/Coreg/Lasix/Imdur at outpatient doses -asymptomatic; will adjust as indicated -DC Diamox 5. Hypertension -as per 4 ; continue amlodipine/enalapril -adjust as indicated 6. Status post left TKR -will hold oxycodone as likely contributing source to nocturnal hypoventilation -observe; can dose on a p.r.n. basis while on nocturnal BiPAP Full code Apixaban(Hx DVT) Will require treatment of hypercapnia with BiPAP and establish new baseline. Will need IV antibiotics for lower extremity cellulitis that is unresolved. Quality Stroke Does the patient have a stroke diagnosis?: No VTE Prior VTE?: Yes VTE Risk Level:: Medical - moderate - high VTE Device Contraindication: Treatment Not Indicated VTE Drug Contraindication: N/A - Med Ordered
[2022-01-06 15:11] VITALS: BP 151/69; PULSE 77; RESP 20; TEMP 37.2; O2SAT 92
[2022-01-06 16:31] LABS: Glucose, Whole Blood 145 mg/dL (60-115)
[2022-01-06 19:08] VITALS: BP 173/75; PULSE 86; RESP 20; TEMP 36.9; O2SAT 96
[2022-01-06 19:26] LABS: Glucose, Whole Blood 185 mg/dL (60-115)
[2022-01-06] MEDS: buPROPion HCl XL 150 MG TAB.ER.24H 450 MG PO (21:17)
[2022-01-06] MEDS: Atorvastatin Calcium 80 MG TABLET PO (21:17)
[2022-01-07] VITALS (8 sets, daily range): BP systolic 120–172; BP diastolic 70–81; PULSE 64–85; RESP 16–28; TEMP 36.6–37.7; O2SAT 93–96
[2022-01-07] MEDS: Piperacillin Sodium/Tazobactam 3.375 GM in 0.9 % Sodium Chloride 50 ML IV ×3 (00:11→13:33)
[2022-01-07] MEDS: vancomycin HCL 1,000 MG in 0.9 % Sodium Chloride 250 ML 270 MG IV (00:12)
[2022-01-07] MEDS: Acetaminophen 325 MG TABLET 650 MG PO (02:02)
[2022-01-07 06:56] LABS: MANUAL DIFF FLAG NO
[2022-01-07 07:03] LABS: VBG Base Excess -1.4 mmol/L; VBG HCO3 23 mmol/L (22-26); VBG pCO2 39 mmHg; VBG pH 7.38 (7.32-7.43); VBG pO2 77 mmHg
[2022-01-07 07:03] LABS: Venous Blood Gas Refer to POC result
[2022-01-07 07:05] LABS: Basophils Percent Auto 0.1 % (0-2); Eosinophils Absolute Auto 0.3 X10*3/uL (0.0-0.4); Eosinophils Percent Auto 3.3 % (0-4); Hematocrit 30.5 % (37.0-47.0); Hemoglobin 9.2 g/dl (12.0-16.0); Imm Gran Abs Auto 0.02 X10*3/uL (0.00-0.03); Imm Gran Pct Auto 0.3 % (0.0-0.4); Lymphocytes Absolute Auto 1.5 X10*3/uL (1.2-4.9); Lymphocytes Percent Auto 18.8 % (20-40); Mean Corpuscular HGB Conc 30.2 g/dl (31.0-35.0); Mean Corpuscular Hemoglobin 26.4 pg (27.0-33.0); Mean Corpuscular Volume 87.6 fL (80.0-98.0); Mean Platelet Volume 9.7 fL (9.4-12.3); Monocytes Absolute Auto 0.6 X10*3/uL (0.1-1.2); Monocytes Percent Auto 7.9 % (2-11); Neutrophils Absolute Auto 5.5 x10*3/uL (2.0-8.3); Neutrophils Percent Auto 69.6 % (45-73); Platelet Count 227 X10*3/uL (160-400); Red Blood Count 3.48 X10*6/uL (4.20-5.50); Red Cell Distribution Width 15.9 % (11.0-16.0); White Blood Count 7.9 X10*3/uL (4.8-10.8)
[2022-01-07 07:22] LABS: Glucose, Whole Blood 116 mg/dL (60-115)
[2022-01-07 07:30] LABS: Alanine Aminotransferase 10 U/L (0-31); Alkaline Phosphatase 86 U/L (39-117); Anion Gap 10 (12-20); Aspartate Amino Transferase 7 U/L (5-31); Bilirubin Total 0.4 mg/dL (0.0-1.0); Blood Urea Nitrogen 17 mg/dL (9-16); Calcium 8.4 mg/dL (8.4-10.2); Carbon Dioxide 26 mmol/L (22-29); Chloride 109 mmol/L (96-108); Creatinine Clr Calc Pharmacy 123.6; Estimated Glomerular Filt Rate > 60; Glucose Fasting 108 mg/dL (60-99); Potassium 3.7 mmol/L (3.3-5.1); Sodium 141 mmol/L (135-145); Total Protein 6.2 g/dL (6.5-8.0)
[2022-01-07] MEDS: Enalapril Maleate 10 MG TABLET 40 MG PO (10:05)
[2022-01-07] MEDS: amLODIPine Besylate 5 MG TABLET PO (10:06)
[2022-01-07] MEDS: Furosemide 40 MG TABLET 80 MG PO (10:07)
[2022-01-07] MEDS: carvediloL 6.25 MG TABLET PO (10:07)
[2022-01-07] MEDS: Potassium Chloride ER 20 MEQ TAB.ER.PRT PO (10:08)
[2022-01-07] MEDS: Aspirin 81 MG TAB.CHEW PO (10:09)
[2022-01-07] MEDS: Sertraline HCL 100 MG TABLET 200 MG PO (10:09)
[2022-01-07] MEDS: Ferrous Sulfate 324 MG TABLET.DR PO (10:10)
[2022-01-07] MEDS: Apixaban 5 MG TABLET PO (10:10)
[2022-01-07] MEDS: Gabapentin 300 MG CAPSULE 600 MG PO (10:11)
[2022-01-07] MEDS: Insulin Glargine,Hum.rec.anlog 100 UNIT/ML 10 ML VIAL 50 UNIT SUBCUT (10:12)
[2022-01-07] MEDS: 0.9 % Sodium Chloride Flush 3 ML SYRINGE IVFLUSH (10:14)
[2022-01-07] MEDS: Isosorbide Mononitrate 60 MG TAB.ER.24H PO (11:04)
[2022-01-07 11:28] LABS: Glucose, Whole Blood 151 mg/dL (60-115)
[2022-01-07 11:30] LABS: Vancomycin Trough 15.8 mcg/mL (10.0-20.0)
--- NOTE | 2022-01-07 11:58 | P.DS_ITS ---
DS: Providers Provider Date of Service: 01/07/22 Date of admission: 01/05/22 10:35 Primary care physician: Tita Bal MD DS: Diagnosis Discharge Diagnosis (1) Acute hypercapnic respiratory failure due to obstructive sleep apnea: Status: Acute (2) Cellulitis of leg, right: Status: Acute (3) Diabetes mellitus, type 2: Status: Acute (4) Hypertension: Status: Acute DS: Summary Hospital Course Hospital Course: 60 year old female with a past medical history of hypertension, congestive heart failure, history is of PEs (on Eliquis ), pressure ulcers,? osteoarthritis, depression, recent C diff infection, and recent left knee replacement At [facility]; recently admitted to [facility] ICU? 11/18/2021? through? 11/27/2021 for hypercapnic respiratory failure requiring mechanical ventilation.? [facility] On 12/04/2021 patient is known to be weak and lethargic and transported to [facility] by ambulance.? Initial VBG demonstrated a pH of 7.2 VB pCO2 73 and a base excess of -0.4.? She was placed on BiPAP at 10/5 and repeat ABGs 4 hours later demonstrated a pH 7.32 with a base excess of -3.8.? Upon review all meds, it was noted that she is on oxycodone 10 mg scheduled at bedtime and 10 mg q.8 hours p.r.n..? Remainder of workup essentially unremarkable Hospital course Admitted to telemetry and placed on BiPAP overnight. Settings were 10/5 at 35%; VBG is each a.m. were normalized on BiPAP. Going forward, she will need BiPAP nightly at SNF along with BiPAP upon discharge. Given the remarkable improvement and carbon dioxide levels on BiPAP while in the hospital as demonstrated by VBG is daily in the morning do not believe a titration is necessary. This information can be obtained and sent to insurance company in lieu of formal study as this will be easier for patient She was maintained on Zosyn for cellulitis and will be discharged on a course of Augmentin. Further treatment as per receiving physician. At the time of discharge she is medically stable and will be transferred via ambulance Time Spent with Patient Time attestation: Total time spent providing and/or coordinating discharge services: Discharge coordination time: Greater than 30 minutes Quality: Safe Use of Opioids Does Pt have an Active Cancer Diagnosis on the Problem List?: No Quality: Stroke Does the patient have a stroke diagnosis?: No Physical Exam Vital Signs: Vital Signs: Last Vital Signs Temp 98.2 F 01/07/22 08:00 Pulse 64 01/07/22 08:00 Resp 16 01/07/22 08:00 BP 120/76 01/07/22 08:00 Pulse Ox 96 01/07/22 08:00 Oxygen Flow Rate 6 01/04/22 20:35 BMI result Body Mass Index 51.6 Const: Other: Sleeping on BiPAP; easily arousable and responding appropriately to questions Resp: Other: Diminished but clear to auscultation bilaterally without rales rhonchi or wheezes Cardio: Other: No S4; positive S1-S2; no S3 murmurs rubs or gallops GI: Other: Obese/soft nontender. Normoactive bowel sounds Neuro: Other: Cranial nerves 2-12 grossly intact as tested. Motor is 5/5 all extremities sensation is intact cognition is appropriate Extrem: Other: Erythema noted right lower extremity demarcated by ache DS: Data Data Completed and Pending Completed studies during hospitalization [Text1]: Procedures Insertion of Endotracheal Airway into Trachea, Via Natural or Artificial Opening (11/18/21) Insertion of Infusion Device into Superior Vena Cava, Percutaneous Approach (11/18/21) Introduction of Vasopressor into Peripheral Vein, Percutaneous Approach (11/18/21) Respiratory Ventilation, 24-96 Consecutive Hours (11/18/21) Ultrasonography of Superior Vena Cava, Guidance (11/18/21) Labs on day of discharge: Laboratory Results - last 24 hr 01/06/22 01/06/22 01/06/22 11:04 16:01 19:21 WBC RBC Hgb Hct MCV MCH MCHC RDW Plt Count MPV Immature Gran % (Auto) Neut % (Auto) Lymph % (Auto) Holt % (Auto) Eos % (Auto) Baso % (Auto) Lymph # (Auto) Holt # (Auto) Eos # (Auto) Baso # (Auto) Abs Immat Gran (auto) Absolute Neuts (auto) Absolute Nucleated RBC Nucleated RBC % (auto) VBG pH VBG pCO2 VBG pO2 VBG HCO3 VBG O2 Saturation VBG Base Excess Sodium Potassium Chloride Carbon Dioxide Anion Gap BUN Creatinine Estim Creat Clear Calc Estimated GFR POC Glucose 145 H 185 H Fasting Glucose Calcium Total Bilirubin AST ALT Alkaline Phosphatase Total Protein Albumin Vancomycin Trough 11.3 01/07/22 01/07/22 01/07/22 06:47 06:47 06:55 WBC 7.9 RBC 3.48 L Hgb 9.2 L Hct 30.5 L MCV 87.6 MCH 26.4 L MCHC 30.2 L RDW 15.9 Plt Count 227 MPV 9.7 Immature Gran % (Auto) 0.3 Neut % (Auto) 69.6 Lymph % (Auto) 18.8 L Holt % (Auto) 7.9 Eos % (Auto) 3.3 Baso % (Auto) 0.1 Lymph # (Auto) 1.5 Holt # (Auto) 0.6 Eos # (Auto) 0.3 Baso # (Auto) 0.0 Abs Immat Gran (auto) 0.02 Absolute Neuts (auto) 5.5 Absolute Nucleated RBC 0.000 Nucleated RBC % (auto) 0.0 VBG pH 7.38 VBG pCO2 39 VBG pO2 77 VBG HCO3 23 VBG O2 Saturation 95.0 VBG Base Excess -1.4 Sodium 141 Potassium 3.7 Chloride 109 H Carbon Dioxide 26 Anion Gap 10 L BUN 17 H Creatinine 0.80 Estim Creat Clear Calc 123.6 Estimated GFR > 60 POC Glucose Fasting Glucose 108 H Calcium 8.4 Total Bilirubin 0.4 AST 7 ALT 10 Alkaline Phosphatase 86 Total Protein 6.2 L Albumin 3.0 L Vancomycin Trough 01/07/22 01/07/22 01/07/22 07:00 10:57 11:22 WBC RBC Hgb Hct MCV MCH MCHC RDW Plt Count MPV Immature Gran % (Auto) Neut % (Auto) Lymph % (Auto) Holt % (Auto) Eos % (Auto) Baso % (Auto) Lymph # (Auto) Holt # (Auto) Eos # (Auto) Baso # (Auto) Abs Immat Gran (auto) Absolute Neuts (auto) Absolute Nucleated RBC Nucleated RBC % (auto) VBG pH VBG pCO2 VBG pO2 VBG HCO3 VBG O2 Saturation VBG Base Excess Sodium Potassium Chloride Carbon Dioxide Anion Gap BUN Creatinine Estim Creat Clear Calc Estimated GFR POC Glucose 116 H 151 H Fasting Glucose Calcium Total Bilirubin AST ALT Alkaline Phosphatase Total Protein Albumin Vancomycin Trough 15.8 Preliminary micro results at discharge 01/04/22 21:40 Blood Culture - Preliminary Blood - Venous No growth after 48 hours. 01/04/22 21:40 Blood Culture - Preliminary Blood - Venous No growth after 48 hours. Discharge Plan Discharge Patient Disposition: Xfer Inpatient Rehab Fac Discharge Diagnosis: Acute hypercapnic respiratory failure due to obstructive sleep apnea Referrals: Tita Bal MD [Primary Care Provider] - 1 Week Discharge Medications: New amoxicillin-pot clavulanate 875-125 mg tablet 1 tab PO BID Qty: 14 0RF Continued atorvastatin 80 mg Tablet 80 mg PO BEDTIME 0RF sennosides [senna] 8.6 mg Tablet 16.2 mg PO DAILY PRN (Reason: Constipation) 0RF acetaminophen 325 mg Tablet 650 mg PO Q4H PRN (Reason: Fever Or Pain) 0RF lidocaine 4 % Adhesive Patch,Medicated 1 patch TOPICAL DAILY 0RF Rx Instructions: APPLY TO BACK polyethylene glycol 3350 [Miralax] 17 gram Powder In Packet 17 g PO DAILY PRN (Reason: Constipation) 0RF tizanidine 4 mg Tablet 4 mg PO Q8H PRN (Reason: Muscle Spasm) 0RF enalapril maleate 20 mg Tablet 40 mg PO DAILY 0RF sertraline 100 mg Tablet 200 mg PO DAILY 0RF melatonin 3 mg Tablet 3 mg PO BEDTIME 0RF magnesium hydroxide [Milk of Magnesia] 400 mg/5 mL Suspension 30 ml PO DAILY PRN (Reason: Constipation) 0RF furosemide 80 mg Tablet 80 mg PO DAILY 0RF ferrous sulfate 325 mg (65 mg iron) Tablet 325 mg PO DAILY 0RF gabapentin 300 mg Capsule 300 mg PO DAILY@1200 0RF gabapentin 300 mg Capsule 600 mg PO BID 0RF magnesium citrate Solution 150 ml PO DAILY PRN (Reason: Constipation) 0RF Santyl 250 unit/gram Ointment 1 appl TOPICAL BEDTIME 0RF Rx Instructions: APPLY TO RIGHT HEEL insulin lispro 100 unit/mL Insulin Pen 22 unit SUBCUT TIDAC 0RF insulin lispro 100 unit/mL Insulin Pen See Protocol unit SUBCUT QIDACHS 0RF Protocol: Insulin Correction Scale Less than or equal to 110 ---- Give (units): 0 111 to 150 Give (units): 0 151 to 200 Give (units): 2 201 to 250 Give (units): 4 251 to 300 Give (units): 6 301 to 350 Give (units): 8 Greater than 350 Give (units): 10 Call MD if Blood Glucose > : 350 Rx Instructions: SLIDING SCALE Saccharomyces boulardii 250 mg Capsule 250 mg PO BID 0RF insulin glargine 100 unit/mL (3 mL) Insulin Pen 50 unit SUBCUT DAILY 0RF oxycodone 10 mg Tablet 10 mg PO BEDTIME 0RF bupropion HCl 450 mg Tablet Extended Release 24 Hr 450 mg PO BEDTIME 0RF apixaban 5 mg Tablet 5 mg PO BID 0RF fluticasone propion-salmeterol [AirDuo RespiClick] 113-14 mcg/actuation aerosol powdr breath activated 1 inh inhalation BID Qty: 1 0RF amlodipine 5 mg Tablet 5 mg PO DAILY 30 Days Qty: 30 0RF Protocol: Hold for SBP< HOLD for SBP < : 90 carvedilol 6.25 mg Tablet 6.25 mg PO BID 0RF Rx Instructions: must administer with a meal/food aspirin 81 mg Tablet,Chewable 81 mg PO DAILY 0RF megestrol 400 mg/10 mL (10 mL) Suspension 40 mg PO Q8H 0RF potassium chloride 20 mEq Tablet Extended Release 20 meq PO DAILY 0RF oxycodone 10 mg tablet 10 mg PO Q8H PRN (Reason: Pain, Severe) 0RF bisacodyl 10 mg Suppository 10 mg GA DAILY PRN (Reason: Constipation) 0RF isosorbide mononitrate 60 mg tablet extended release 24 hr 1 tab PO DAILY 0RF Discontinued acetazolamide 250 mg Tablet 500 mg PO DAILY 30 Days Qty: 60 0RF amoxicillin 500 mg Capsule 1,000 mg PO Q12H 0RF Discharge Orders: Discharge Order (Routine); Ordered 01/07/22 Ordered By: Alejandro Bacon Diet: advance to usual diet Activity on Discharge: As tolerated Stand Alone Forms: Patient Portal Discharge page Care Plan Goals: BiPAP 10/5 35% every night Health Concerns: Will need BiPAP chronically upon discharge from staff Plan of Treatment: Resume all previous therapies; omit Diamox Assessment: See discharge summary
[2022-01-07] MEDS: Gabapentin 300 MG CAPSULE PO (13:33)
[2022-01-07] MEDS: vancomycin HCL 1,500 MG in 0.9 % Sodium Chloride 500 ML 333.33 MG IV (14:30)
[2022-01-07 15:47] LABS: COVID-19 Test Negative (Negative)
--- NOTE | 2022-01-07 15:57 | MHC.CM.PN ---
Female 61 DX Respiratory failure She is discharged today. She will return to [facility] for STR via BLS. All dc info including a covid test result, have been sent to the facility.
[2022-01-07 16:03] LABS: Glucose, Whole Blood 165 mg/dL (60-115)
== END 2022-01-07 17:30 | DRG 189 ==
LOC: HO.ED 01-05 00:04 → HO.EDOVER 01-05 10:46 → HO.IMC 01-05 11:10
PROVIDERS: Admitting Provider Hospitalist; Emergency Provider Internal Medicine; PCP Internal Medicine; Visit Provider Hospitalist
DX: J96.02 Acute respiratory failure with hypercapnia (principal); L03.116 Cellulitis of left lower limb; E66.2 Morbid (severe) obesity with alveolar hypoventilation; Z68.43 Body mass index [BMI] 50.0-59.9, adult; E87.2 Acidosis; G89.29 Other chronic pain; M54.50 Low back pain, unspecified; Z20.822 Contact with and (suspected) exposure to COVID-19; Z96.652 Presence of left artificial knee joint; Z86.711 Personal history of pulmonary embolism; Z91.040 Latex allergy status; Z79.4 Long term (current) use of insulin; Z79.01 Long term (current) use of anticoagulants; Z79.51 Long term (current) use of inhaled steroids; Z79.82 Long term (current) use of aspirin; Z79.899 Other long term (current) drug therapy
CPT/HCPCS: 36415; 36600; 70450; 71045; 80053; 80202; 82803; 82947; 83605; 83735; 83880; 84484; 85025; 85610; 87040; 87635; 93005; 93971; 94660; 96361; 96365; 96375; 99285; J2543; J3370

== ENCOUNTER 2022-03-27 17:14 | Inpatient (IN) | payer OTHER, MEDICARE, MEDICAID, SELFPAY ==
[2022-03-27] VITALS (7 sets, daily range): BP systolic 111–165; BP diastolic 49–86; PULSE 66–80; RESP 15–21; TEMP 36.8–37.4; O2SAT 90–100; BMI 62.6
--- NOTE | ~2022-03-27 | US_ITS ---
EXAMINATION: US VENOUS ULTRASOUND WITH DOPPLER LOWER EXTREMITY, RIGHT CLINICAL INFORMATION: Cellulitis with pain and swelling. Rule out DVT. COMPARISON: None TECHNIQUE: Ultrasound of the deep veins is performed from the hip to the calf with compression sonography and color and pulse Doppler assessment. Spectral analysis with color-flow imaging is performed. FINDINGS: Examination was technically difficult and is significantly limited due to a combination of body habitus, patient being on a ventilator and agitated state per technologist report. The distal right femoral vein could not be identified/evaluated precluding its assessment. The common femoral, greater saphenous, proximal mid femoral and profunda femoral veins appear grossly patent with dopplerable flow. Popliteal vein is patent. Significantly limited evaluation of the calf veins. Visualized portions of the posterior tibial and peroneal veins appear grossly patent but are not fully or optimally seen. US/US venous duplex LE RT IMPRESSION: 1. Technically difficult/limited exam for reasons as described. 2. No gross DVT identified in the visualized venous segments of the right lower extremity. Please note that the entirety of the right femoral vein and portions of the calf veins could not be evaluated on this study.
--- NOTE | ~2022-03-27 | XR_ITS ---
EXAMINATION: XR FOOT, RIGHT CLINICAL INFORMATION: Question heel osteomyelitis. COMPARISON: None TECHNIQUE: AP and lateral views of the right foot. FINDINGS: Patchy osteopenia throughout the foot. No fracture or dislocation. No appreciable osseous destructive change or periostitis. Mild first MTP joint osteoarthritis with joint space narrowing and small osteophytes. Marked dorsal soft tissue swelling about the foot. No ankle joint effusion. XR/XR foot RT 2V IMPRESSION: 1. No acute osseous injury or radiographic evidence of advanced acute osteomyelitis.
--- NOTE | ~2022-03-27 | XR_ITS ---
EXAMINATION: XR TIBIA AND FIBULA, RIGHT CLINICAL INFORMATION: Cellulitis edema. COMPARISON: None TECHNIQUE: AP and lateral views of the right tibia and fibula were obtained. FINDINGS: Soft tissue edema calf. No radiopaque foreign body. No air in the soft tissues. No bone destruction or abnormal periosteal reaction. Tibial component of the knee joint prosthesis intact. No evidence of loosening. XR/XR tibia fibula RT 2V IMPRESSION: Soft tissue edema calf. No radiopaque foreign body. No air in the soft tissues.
--- NOTE | ~2022-03-27 | XR_ITS ---
EXAMINATION: XR CHEST CLINICAL INFORMATION: Shortness of breath COMPARISON: Chest x-ray 01/05/2020 TECHNIQUE: Frontal view of the chest was obtained. FINDINGS: Hypoinflated lungs. Streaky/patchy bilateral airspace opacities. No definite pleural effusion. No appreciable pneumothorax. Cardiomediastinal silhouette is unchanged. Mild prominence of the pulmonary vascularity/pulmonary vascular congestion. No overt pulmonary edema. No acute osseous injury. Status post left shoulder arthroplasty. XR/XR chest 1V IMPRESSION: 1. Low lung volumes with streaky/patchy bilateral airspace opacities compatible with atelectasis or small areas of consolidation. 2. Mild pulmonary vascular congestion. No overt pulmonary edema or appreciable pleural effusions.
--- NOTE | 2022-03-27 17:30 | ECG_ITS ---
Test Reason : SOB Blood Pressure : / mmHG Vent. Rate : 075 BPM Atrial Rate : 075 BPM P-R Int : 222 ms QRS Dur : 166 ms QT Int : 406 ms P-R-T Axes : 031 -34 101 degrees QTc Int : 453 ms Sinus rhythm with 1st degree A-V block Left axis deviation Left bundle branch block Abnormal ECG When compared with ECG of 04-JAN-2022 21:07, No significant change was found Referred By: Thais Nguyen Electronically Signed By:MAREN VIDALES MD
--- NOTE | 2022-03-27 17:35 | ED.GENADULT ---
HPI - General Adult General Chief complaint: General Medical Stated complaint: SOB Time Seen by Provider: 03/27/22 17:30 Source: EMS Mode of arrival: EMS Limitations: altered mental status History of Present Illness HPI narrative: Patient comes to the emergency room via EMS from [facility]. EMS reports that the staff at the [facility], reported that the patient had been lethargic since early this morning. The staff kept trying to have the patient come to the emergency room but the patient kept refusing. About an hour prior to arrival, patient's oxygen saturation was in the low 80s, patient was no longer able to respond that she did not want to come to the hospital and therefore EMS was called. EMS reports that the oxygen saturation was in the low 80s on 6 L nasal cannula, they switched the patient over to a non-rebreather, oxygen improved to the low 90s. On arrival to the emergency room, patient is lethargic, arousable to sternal rub, occasionally to name. Patient is able to respond yes and no questions. Related Data Home Medications Medication Instructions Recorded Confirmed Saccharomyces boulardii 250 mg 250 mg PO BID 11/18/21 01/05/22 capsule acetaminophen 325 mg tablet 650 mg PO Q4H PRN Fever Or Pain 11/18/21 01/05/22 apixaban 5 mg tablet 5 mg PO BID 11/18/21 01/05/22 atorvastatin 80 mg tablet 80 mg PO BEDTIME 11/18/21 01/05/22 bupropion HCl 450 mg 24 hr tablet, 450 mg PO BEDTIME 11/18/21 01/05/22 extended release collagenase clostridium histo. 250 1 appl topical BEDTIME 11/18/21 01/05/22 unit/gram topical ointment (Santyl) enalapril maleate 20 mg tablet 40 mg PO DAILY 11/18/21 01/05/22 ferrous sulfate 325 mg (65 mg 325 mg PO DAILY 11/18/21 01/05/22 iron) tablet furosemide 80 mg tablet 80 mg PO DAILY 11/18/21 01/05/22 gabapentin 300 mg capsule 300 mg PO DAILY@1200 11/18/21 01/05/22 gabapentin 300 mg capsule 600 mg PO BID 11/18/21 01/05/22 insulin glargine 100 unit/mL (3 50 unit subcut DAILY 11/18/21 01/05/22 mL) subcutaneous pen insulin lispro 100 unit/mL 22 unit subcut TIDAC 11/18/21 01/05/22 subcutaneous pen insulin lispro 100 unit/mL See Protocol subcut QIDACHS 11/18/21 01/05/22 subcutaneous pen lidocaine 4 % topical patch 1 patch topical DAILY 11/18/21 01/05/22 magnesium citrate 150 ml PO DAILY PRN Constipation 11/18/21 01/05/22 magnesium hydroxide 400 mg/5 mL 30 ml PO DAILY PRN Constipation 11/18/21 01/05/22 oral suspension (Milk of Magnesia) melatonin 3 mg tablet 3 mg PO BEDTIME 11/18/21 01/05/22 oxycodone 10 mg tablet 10 mg PO BEDTIME 11/18/21 01/05/22 polyethylene glycol 3350 17 gram 17 g PO DAILY PRN Constipation 11/18/21 01/05/22 oral powder packet (Miralax) sennosides 8.6 mg tablet (senna) 16.2 mg PO DAILY PRN Constipation 11/18/21 01/05/22 sertraline 100 mg tablet 200 mg PO DAILY 11/18/21 01/05/22 tizanidine 4 mg tablet 4 mg PO Q8H PRN Muscle Spasm 11/18/21 01/05/22 aspirin 81 mg chewable tablet 81 mg PO DAILY 01/05/22 01/05/22 bisacodyl 10 mg rectal suppository 10 mg RI DAILY PRN Constipation 01/05/22 01/05/22 carvedilol 6.25 mg tablet 6.25 mg PO BID 01/05/22 01/05/22 isosorbide mononitrate 60 mg 1 tab PO DAILY 01/05/22 01/05/22 tablet,extended release 24 hr megestrol 400 mg/10 mL (10 mL) 40 mg PO Q8H 01/05/22 01/05/22 oral suspension oxycodone 10 mg tablet 10 mg PO Q8H PRN Pain, Severe 01/05/22 01/05/22 potassium chloride 20 mEq 20 meq PO DAILY 01/05/22 01/05/22 tablet,extended release Previous Rx's Medication Instructions Recorded amlodipine 5 mg tablet 5 mg PO DAILY 30 days #30 tabs 11/26/21 fluticasone 113 mcg-salmeterol 14 1 inh inhalation BID #1 ea 03/14/22 mcg/actuation breath activated powdr (AirDuo RespiClick) amoxicillin 875 mg-potassium 1 tab PO BID #14 tabs 01/07/22 clavulanate 125 mg tablet Allergies Allergy/AdvReac Type Severity Reaction Status Date / Time latex Allergy Unknown Unknown Verified 01/05/22 03:32 adhesive tape AdvReac Unknown Unknown Verified 01/05/22 03:32 bupropion [From Wellbutrin] AdvReac Unknown Unknown Verified 01/05/22 03:32 ibuprofen AdvReac Unknown Unknown Verified 01/05/22 03:32 Review of Systems Review of Systems: Yes Unobtainable due to mental condition [facility] Past Medical History Medical History Anemia Arthritis Atelectasis of both lungs CHF (congestive heart failure) Clostridium difficile infection Depression Diabetes mellitus, type 2 Hypertension Hypoventilation associated with obesity syndrome Morbid obesity SMILEY (obstructive sleep apnea) Pulmonary embolism Respiratory failure with hypoxia and hypercapnia Surgical History History of total knee replacement Social History Social History (Updated 01/05/22 @ 12:40 by Zakiya Hendricks RN) Household Members: Other Housing: [facility] Are you a primary rn intensive care unit to a significant other at home: No Do you presently have visiting nurse or other home services: No Unable to assess alcohol history related to: Unknown Patient Tobacco Use Status: Tobacco use Unknown Substance Use Type: Unknown Advance Directives: No Advance Directives Information Provided: No service: No Current occupational status: disabled Physical Exam ED Vital Signs: Vital Signs - 24 hr 03/27/22 17:29 03/27/22 17:29 03/27/22 17:47 Temperature 98.2 F Pulse Rate 74 71 Respiratory Rate 18 20 15 Blood Pressure 121/52 L 136/49 L Pulse Oximetry 100 100 Oxygen Delivery Method BiPAP BiPAP Oxygen Flow Rate 100 03/27/22 19:08 Temperature Pulse Rate Respiratory Rate 15 Blood Pressure Pulse Oximetry Oxygen Delivery Method Oxygen Flow Rate BMI result Body Mass Index 62.6 Const Other: Appearance: Lethargic, arousable to voice, morbidly obese ENT: Pharynx normal. Neck: Normal inspection. Neck supple. No lymph nodes noted. No crepitus CVS: Normal heart rate and rhythm. Pulses normal. Normal S1 and S2 Respiratory: No respiratory distress. Breath sounds normal. No Wheezing. No rales Abdomen: Soft and nontender. No rigidity. No distention. Skin: Skin warm and dry. Patient has erythema in the right lower extremity, patient has a pressure ulcer in the heel on the right side, foul-smelling lesion Extremities: +2 pitting edema bilaterally Neuro: Patient somnolent, unable to participating cranial nerve assessment Psych: Lethargic Course Course Course Narrative: Follow the patient's labs and imaging are pending. Patient is empirically being treated with IV fluids, 2 L based on an ideal weight of 55 kg, vancomycin and Zosyn has been started. Patient's potassium is 6.9, patient was given calcium gluconate, patient's glucose is also elevated to 112, patient received 10 units of insulin, hour long neb treatment with albuterol, will recheck a basic metabolic panel for sleep. Anion gap 15, acetone pending We were able to wean down the oxygen on the BiPAP from 100% to 30%. However, if we attempt using nasal cannula, the patient's oxygen saturation drops to the low 80s. In the meantime, patient remains somnolent but easily arousable to voice. Patient has foot cellulitis, x-rays do not show evidence of advanced acute osteomyelitis. I discussed the patient with Dr. Aguila, patient being admitted to the ICU Medical Decision Making Lab Data Result diagrams: 03/27/22 18:40 03/27/22 18:40 Labs: Lab Results 03/27/22 03/27/22 03/27/22 Range/Units 18:03 18:40 18:40 WBC 9.4 (4.8-10.8) X10*3/uL RBC 4.66 D (4.20-5.50) X10*6/uL Hgb 11.7 L D (12.0-16.0) g/dl Hct 41.3 D (37.0-47.0) % MCV 88.6 (80.0-98.0) fL MCH 25.1 L (27.0-33.0) pg MCHC 28.3 L (31.0-35.0) g/dl RDW 15.6 (11.0-16.0) % Plt Count 315 D (160-400) X10*3/uL MPV 9.1 L (9.4-12.3) fL Immature Gran % (Auto) 0.4 (0.0-0.4) % Neut % (Auto) 81.6 H (45-73) % Lymph % (Auto) 9.3 L (20-40) % [place] % (Auto) 7.3 (2-11) % Eos % (Auto) 1.1 (0-4) % Baso % (Auto) 0.3 (0-2) % Lymph # (Auto) 0.9 L (1.2-4.9) X10*3/uL [place] # (Auto) 0.7 (0.1-1.2) X10*3/uL Eos # (Auto) 0.1 (0.0-0.4) X10*3/uL Baso # (Auto) 0.0 (0.0-0.2) X10*3/uL Abs Immat Gran (auto) 0.04 H (0.00-0.03) X10*3/uL Absolute Neuts (auto) 7.7 (2.0-8.3) x10*3/uL Absolute Nucleated RBC 0.000 (0.0-0.012) X10*3/uL Nucleated RBC % (auto) 0.0 (0.0-0.2) /100WBC PT 14.7 H (10.0-13.1) SEC INR 1.3 H (0.9-1.1) VBG pH (7.32-7.43) VBG pCO2 mmHg VBG pO2 mmHg VBG HCO3 (22-26) mmol/L VBG O2 Saturation % VBG Base Excess Sodium 137 (135-145) mmol/L Potassium 6.9 H* D (3.3-5.1) mmol/L Chloride 102 (96-108) mmol/L Carbon Dioxide 27 (22-29) mmol/L Anion Gap 15 (12-20) BUN 68 H D (9-16) mg/dL Creatinine 1.66 H (0.5-1.4) mg/dL Estim Creat Clear Calc 58.7 Estimated GFR 31 Random Glucose 312 H (60-115) mg/dL Lactic Acid (0.5-2.0) mmol/L Calcium 8.8 (8.4-10.2) mg/dL Magnesium 2.6 (1.6-2.6) mg/dL Total Bilirubin 0.4 (0.0-1.0) mg/dL Direct Bilirubin < 0.2 (0.0-0.5) mg/dL AST 9 (5-31) U/L ALT 13 (0-31) U/L Alkaline Phosphatase 123 H D (39-117) U/L Troponin I High Sens (<3.5-17.0) ng/L B-Natriuretic Peptide (<100) pg/mL Total Protein 8.3 H D (6.5-8.0) g/dL Albumin 4.0 D (3.5-5.0) g/dL TSH (0.32-4.0) uIU/mL Urine Color Urine Appearance Urine pH (5.0-8.0) Ur Specific [place] (1.005-1.025) Urine Protein (NEG-TRACE) MG/DL Urine Glucose (UA) (NEG) MG/DL Urine Ketones (NEG) MG/DL Urine Blood (NEG) Urine Nitrite (NEG) Ur Leukocyte Esterase (NEG) Urine RBC (0) /HPF Urine WBC (0-4) /HPF Ur Squamous Epith Cells /LPF Urine Bacteria /LPF Urine Opiates Screen (Not Detect) Urine Fentanyl Screen (Not Detect) Ur Barbiturates Screen (Not Detect) Ur Phencyclidine Scrn (Not Detect) Ur Amphetamines Screen (Not Detect) U Benzodiazepines Scrn (Not Detect) Urine Cocaine Screen (Not Detect) U Marijuana (THC) Screen (Not Detect) 03/27/22 03/27/22 03/27/22 Range/Units 18:40 18:40 18:40 WBC (4.8-10.8) X10*3/uL RBC (4.20-5.50) X10*6/uL Hgb (12.0-16.0) g/dl Hct (37.0-47.0) % MCV (80.0-98.0) fL MCH (27.0-33.0) pg MCHC (31.0-35.0) g/dl RDW (11.0-16.0) % Plt Count (160-400) X10*3/uL MPV (9.4-12.3) fL Immature Gran % (Auto) (0.0-0.4) % Neut % (Auto) (45-73) % Lymph % (Auto) (20-40) % [place] % (Auto) (2-11) % Eos % (Auto) (0-4) % Baso % (Auto) (0-2) % Lymph # (Auto) (1.2-4.9) X10*3/uL [place] # (Auto) (0.1-1.2) X10*3/uL Eos # (Auto) (0.0-0.4) X10*3/uL Baso # (Auto) (0.0-0.2) X10*3/uL Abs Immat Gran (auto) (0.00-0.03) X10*3/uL Absolute Neuts (auto) (2.0-8.3) x10*3/uL Absolute Nucleated RBC (0.0-0.012) X10*3/uL Nucleated RBC % (auto) (0.0-0.2) /100WBC PT (10.0-13.1) SEC INR (0.9-1.1) VBG pH (7.32-7.43) VBG pCO2 mmHg VBG pO2 mmHg VBG HCO3 (22-26) mmol/L VBG O2 Saturation % VBG Base Excess Sodium (135-145) mmol/L Potassium (3.3-5.1) mmol/L Chloride (96-108) mmol/L Carbon Dioxide (22-29) mmol/L Anion Gap (12-20) BUN (9-16) mg/dL Creatinine (0.5-1.4) mg/dL Estim Creat Clear Calc Estimated GFR Random Glucose (60-115) mg/dL Lactic Acid 0.7 (0.5-2.0) mmol/L Calcium (8.4-10.2) mg/dL Magnesium (1.6-2.6) mg/dL Total Bilirubin (0.0-1.0) mg/dL Direct Bilirubin (0.0-0.5) mg/dL AST (5-31) U/L ALT (0-31) U/L Alkaline Phosphatase (39-117) U/L Troponin I High Sens 6.9 (<3.5-17.0) ng/L B-Natriuretic Peptide 83 (<100) pg/mL Total Protein (6.5-8.0) g/dL Albumin (3.5-5.0) g/dL TSH (0.32-4.0) uIU/mL Urine Color Urine Appearance Urine pH (5.0-8.0) Ur Specific [place] (1.005-1.025) Urine Protein (NEG-TRACE) MG/DL Urine Glucose (UA) (NEG) MG/DL Urine Ketones (NEG) MG/DL Urine Blood (NEG) Urine Nitrite (NEG) Ur Leukocyte Esterase (NEG) Urine RBC (0) /HPF Urine WBC (0-4) /HPF Ur Squamous Epith Cells /LPF Urine Bacteria /LPF Urine Opiates Screen (Not Detect) Urine Fentanyl Screen (Not Detect) Ur Barbiturates Screen (Not Detect) Ur Phencyclidine Scrn (Not Detect) Ur Amphetamines Screen (Not Detect) U Benzodiazepines Scrn (Not Detect) Urine Cocaine Screen (Not Detect) U Marijuana (THC) Screen (Not Detect) 03/27/22 03/27/22 03/27/22 Range/Units 18:40 18:40 18:40 WBC (4.8-10.8) X10*3/uL RBC (4.20-5.50) X10*6/uL Hgb (12.0-16.0) g/dl Hct (37.0-47.0) % MCV (80.0-98.0) fL MCH (27.0-33.0) pg MCHC (31.0-35.0) g/dl RDW (11.0-16.0) % Plt Count (160-400) X10*3/uL MPV (9.4-12.3) fL Immature Gran % (Auto) (0.0-0.4) % Neut % (Auto) (45-73) % Lymph % (Auto) (20-40) % [place] % (Auto) (2-11) % Eos % (Auto) (0-4) % Baso % (Auto) (0-2) % Lymph # (Auto) (1.2-4.9) X10*3/uL [place] # (Auto) (0.1-1.2) X10*3/uL Eos # (Auto) (0.0-0.4) X10*3/uL Baso # (Auto) (0.0-0.2) X10*3/uL Abs Immat Gran (auto) (0.00-0.03) X10*3/uL Absolute Neuts (auto) (2.0-8.3) x10*3/uL Absolute Nucleated RBC (0.0-0.012) X10*3/uL Nucleated RBC % (auto) (0.0-0.2) /100WBC PT (10.0-13.1) SEC INR (0.9-1.1) VBG pH (7.32-7.43) VBG pCO2 mmHg VBG pO2 mmHg VBG HCO3 (22-26) mmol/L VBG O2 Saturation % VBG Base Excess Sodium (135-145) mmol/L Potassium (3.3-5.1) mmol/L Chloride (96-108) mmol/L Carbon Dioxide (22-29) mmol/L Anion Gap (12-20) BUN (9-16) mg/dL Creatinine (0.5-1.4) mg/dL Estim Creat Clear Calc Estimated GFR Random Glucose (60-115) mg/dL Lactic Acid (0.5-2.0) mmol/L Calcium (8.4-10.2) mg/dL Magnesium (1.6-2.6) mg/dL Total Bilirubin (0.0-1.0) mg/dL Direct Bilirubin (0.0-0.5) mg/dL AST (5-31) U/L ALT (0-31) U/L Alkaline Phosphatase (39-117) U/L Troponin I High Sens (<3.5-17.0) ng/L B-Natriuretic Peptide (<100) pg/mL Total Protein (6.5-8.0) g/dL Albumin (3.5-5.0) g/dL TSH 3.27 (0.32-4.0) uIU/mL Urine Color YELLOW Urine Appearance HAZY Urine pH 5.0 (5.0-8.0) Ur Specific [place] >= 1.030 H (1.005-1.025) Urine Protein NEG (NEG-TRACE) MG/DL Urine Glucose (UA) 500 H (NEG) MG/DL Urine Ketones NEG (NEG) MG/DL Urine Blood TRACE (NEG) Urine Nitrite NEG (NEG) Ur Leukocyte Esterase NEG (NEG) Urine RBC 5-9 H (0) /HPF Urine WBC 0 (0-4) /HPF Ur Squamous Epith Cells TRACE /LPF Urine Bacteria 1+ /LPF Urine Opiates Screen POSITIVE H (Not Detect) Urine Fentanyl Screen Not Detected (Not Detect) Ur Barbiturates Screen Not Detected (Not Detect) Ur Phencyclidine Scrn Not Detected (Not Detect) Ur Amphetamines Screen Not Detected (Not Detect) U Benzodiazepines Scrn Not Detected (Not Detect) Urine Cocaine Screen Not Detected (Not Detect) U Marijuana (THC) Screen Not Detected (Not Detect) 03/27/22 Range/Units 18:50 WBC (4.8-10.8) X10*3/uL RBC (4.20-5.50) X10*6/uL Hgb (12.0-16.0) g/dl Hct (37.0-47.0) % MCV (80.0-98.0) fL MCH (27.0-33.0) pg MCHC (31.0-35.0) g/dl RDW (11.0-16.0) % Plt Count (160-400) X10*3/uL MPV (9.4-12.3) fL Immature Gran % (Auto) (0.0-0.4) % Neut % (Auto) (45-73) % Lymph % (Auto) (20-40) % [place] % (Auto) (2-11) % Eos % (Auto) (0-4) % Baso % (Auto) (0-2) % Lymph # (Auto) (1.2-4.9) X10*3/uL [place] # (Auto) (0.1-1.2) X10*3/uL Eos # (Auto) (0.0-0.4) X10*3/uL Baso # (Auto) (0.0-0.2) X10*3/uL Abs Immat Gran (auto) (0.00-0.03) X10*3/uL Absolute Neuts (auto) (2.0-8.3) x10*3/uL Absolute Nucleated RBC (0.0-0.012) X10*3/uL Nucleated RBC % (auto) (0.0-0.2) /100WBC PT (10.0-13.1) SEC INR (0.9-1.1) VBG pH 7.24 L (7.32-7.43) VBG pCO2 65 mmHg VBG pO2 59 mmHg VBG HCO3 28 H (22-26) mmol/L VBG O2 Saturation 87.0 % VBG Base Excess Not Reportable Sodium (135-145) mmol/L Potassium (3.3-5.1) mmol/L Chloride (96-108) mmol/L Carbon Dioxide (22-29) mmol/L Anion Gap (12-20) BUN (9-16) mg/dL Creatinine (0.5-1.4) mg/dL Estim Creat Clear Calc Estimated GFR Random Glucose (60-115) mg/dL Lactic Acid (0.5-2.0) mmol/L Calcium (8.4-10.2) mg/dL Magnesium (1.6-2.6) mg/dL Total Bilirubin (0.0-1.0) mg/dL Direct Bilirubin (0.0-0.5) mg/dL AST (5-31) U/L ALT (0-31) U/L Alkaline Phosphatase (39-117) U/L Troponin I High Sens (<3.5-17.0) ng/L B-Natriuretic Peptide (<100) pg/mL Total Protein (6.5-8.0) g/dL Albumin (3.5-5.0) g/dL TSH (0.32-4.0) uIU/mL Urine Color Urine Appearance Urine pH (5.0-8.0) Ur Specific [place] (1.005-1.025) Urine Protein (NEG-TRACE) MG/DL Urine Glucose (UA) (NEG) MG/DL Urine Ketones (NEG) MG/DL Urine Blood (NEG) Urine Nitrite (NEG) Ur Leukocyte Esterase (NEG) Urine RBC (0) /HPF Urine WBC (0-4) /HPF Ur Squamous Epith Cells /LPF Urine Bacteria /LPF Urine Opiates Screen (Not Detect) Urine Fentanyl Screen (Not Detect) Ur Barbiturates Screen (Not Detect) Ur Phencyclidine Scrn (Not Detect) Ur Amphetamines Screen (Not Detect) U Benzodiazepines Scrn (Not Detect) Urine Cocaine Screen (Not Detect) U Marijuana (THC) Screen (Not Detect) Imaging Data Chest x-ray: Radiologist's impression: Hypoinflated lungs. Streaky/patchy bilateral airspace opacities. No definite pleural effusion. No appreciable pneumothorax. Cardiomediastinal silhouette is unchanged. Mild prominence of the pulmonary vascularity/pulmonary vascular congestion. No overt pulmonary edema. No acute osseous injury. Status post left shoulder arthroplasty. XR/XR chest 1V IMPRESSION: ? 1. Low lung volumes with streaky/patchy bilateral airspace opacities compatible with atelectasis or small areas of consolidation. 2. Mild pulmonary vascular congestion. No overt pulmonary edema or appreciable pleural effusions. Right foot cellulitis: Radiologist's impression: Patchy osteopenia throughout the foot. No fracture or dislocation. No appreciable osseous destructive change or periostitis. Mild first MTP joint osteoarthritis with joint space narrowing and small osteophytes. Marked dorsal soft tissue swelling about the foot. No ankle joint effusion.? XR/XR foot RT 2V IMPRESSION: ? 1. No acute osseous injury or radiographic evidence of advanced acute osteomyelitis. Critical Care Time Critical Care Time Critical Care Time: Yes Total Critical Care Time: 60 Attestation: I have personally provided critical care time. Time includes review of lab data, radiology results, discussion with consultants, and monitoring for potential decompensation. Intervention performed as documented. Discharge Plan Discharge Clinical Impression: Respiratory failure with hypoxia and hypercapnia, Acute hyperkalemia, Acute hyperglycemia, BERNIE (acute kidney injury), Cellulitis Patient Disposition: Admitted As Inpatient
[2022-03-27] MEDS: 0.9 % Sodium Chloride 2,000 ML 999 ML IVCONT (17:52)
[2022-03-27 18:14] LABS: INTERNATIONAL NORM RATIO 1.3 (0.9-1.1); Prothrombin Time 14.7 SEC (10.0-13.1)
[2022-03-27 18:49] LABS: MANUAL DIFF FLAG NO
[2022-03-27 18:50] LABS: Basophils Percent Auto 0.3 % (0-2); Eosinophils Absolute Auto 0.1 X10*3/uL (0.0-0.4); Eosinophils Percent Auto 1.1 % (0-4); Hematocrit 41.3 % (37.0-47.0); Hemoglobin 11.7 g/dl (12.0-16.0); Imm Gran Abs Auto 0.04 X10*3/uL (0.00-0.03); Imm Gran Pct Auto 0.4 % (0.0-0.4); Lymphocytes Absolute Auto 0.9 X10*3/uL (1.2-4.9); Lymphocytes Percent Auto 9.3 % (20-40); Mean Corpuscular HGB Conc 28.3 g/dl (31.0-35.0); Mean Corpuscular Hemoglobin 25.1 pg (27.0-33.0); Mean Corpuscular Volume 88.6 fL (80.0-98.0); Mean Platelet Volume 9.1 fL (9.4-12.3); Monocytes Absolute Auto 0.7 X10*3/uL (0.1-1.2); Monocytes Percent Auto 7.3 % (2-11); Neutrophils Absolute Auto 7.7 x10*3/uL (2.0-8.3); Neutrophils Percent Auto 81.6 % (45-73); Platelet Count 315 X10*3/uL (160-400); Red Blood Count 4.66 X10*6/uL (4.20-5.50); Red Cell Distribution Width 15.6 % (11.0-16.0); White Blood Count 9.4 X10*3/uL (4.8-10.8)
[2022-03-27 18:52] LABS: Appearance Urine HAZY; Color Urine YELLOW; Glucose Urine UA 500 MG/DL (NEG); Leukocyte Esterase Urine NEG (NEG); Nitrite Urine NEG (NEG); Specific Gravity - Urine >= 1.030 (1.005-1.025); UACC Culture Trigger NO; Urine Blood TRACE (NEG); Urine Ketones NEG (NEG); Urine Protein NEG (NEG-TRACE)
[2022-03-27 18:54] LABS: Venous Blood Gas Refer to POC result
[2022-03-27 18:55] LABS: VBG HCO3 28 mmol/L (22-26); VBG pCO2 65 mmHg; VBG pH 7.24 (7.32-7.43); VBG pO2 59 mmHg
[2022-03-27 19:00] LABS: Bacteria Urine 1+ /LPF; Squamous Epithelial Cell Urine TRACE /LPF; WBC Urine 0 /HPF (0-4)
[2022-03-27] MEDS: Piperacillin Sodium/Tazobactam 4.5 GM in 0.9 % Sodium Chloride 100 ML IV (19:03)
[2022-03-27 19:05] LABS: Lactic Acid 0.7 mmol/L (0.5-2.0)
[2022-03-27 19:14] LABS: Amphetamine Screen Urine Not Detected (Not Detect); Barbiturates, Urine Not Detected (Not Detect); Benzodiazepines Screen Urine Not Detected (Not Detect); Cannabinoid Screen Urine Not Detected (Not Detect); Cocaine Screen Urine Not Detected (Not Detect); Fentanyl, urine Not Detected (Not Detect); Opiate Screen Urine POSITIVE (Not Detect); Phencyclidine Screen Urine Not Detected (Not Detect)
[2022-03-27 19:15] LABS: Troponin-I High Sensitivity 6.9 ng/L (<3.5-17.0)
[2022-03-27 19:16] LABS: B Type Natriuretic Peptide 83 pg/mL (<100)
[2022-03-27 19:28] LABS: Alanine Aminotransferase 13 U/L (0-31); Alkaline Phosphatase 123 U/L (39-117); Anion Gap 15 (12-20); Aspartate Amino Transferase 9 U/L (5-31); Bilirubin Direct < 0.2 mg/dL (0.0-0.5); Bilirubin Total 0.4 mg/dL (0.0-1.0); Blood Urea Nitrogen 68 mg/dL (9-16); Calcium 8.8 mg/dL (8.4-10.2); Carbon Dioxide 27 mmol/L (22-29); Chloride 102 mmol/L (96-108); Creatinine Clr Calc Pharmacy 58.7; Estimated Glomerular Filt Rate 31; Glucose Random 312 mg/dL (60-115); Magnesium 2.6 mg/dL (1.6-2.6); Potassium 6.9 mmol/L (3.3-5.1); Sodium 137 mmol/L (135-145); Total Protein 8.3 g/dL (6.5-8.0)
[2022-03-27 19:30] LABS: TSH reflex Free T4 3.27 uIU/mL (0.32-4.0)
[2022-03-27 20:20] LABS: Acetone, serum QL Negative (Negative)
[2022-03-27] MEDS: Insulin Regular, Human 100 UNIT/ML 3 ML VIAL 10 UNIT IVPUSH (20:28)
[2022-03-27] MEDS: Heparin Sodium,Porcine 5,000 UNIT/ML VIAL 5000 UNIT SUBCUT (20:28)
[2022-03-27] MEDS: Furosemide 40 MG/4 ML VIAL IVPUSH (20:29)
[2022-03-27] MEDS: Calcium Gluconate/NaCl,Iso-Osm 2 GM/100 ML PLAST..BAG IV (20:57)
[2022-03-27] MEDS: vancomycin HCL 1,500 MG in 0.9 % Sodium Chloride 500 ML 333.33 MG IV (21:00)
--- NOTE | 2022-03-27 21:16 | PHA.MEDREC ---
Pharmacy Consult ? Medication Reconciliation Pharmacy has completed the medication reconciliation. Pt had chart from [facility]
--- NOTE | 2022-03-27 21:29 | PM.CCHP ---
History of Present Illness Date of Service: 03/27/22 Attending physician on admission: Real Aguila Chief Complaint: She was found unresponsive Chief complaint : She was found unresponsive, but breathing on her own and had a pulse Source of History : ED MD and Patients chart HPI: Patient with underlying history of morbid obesity, obstructive sleep apnea, pulmonary embolism, hypoxic/hypercapnic respiratory failure requiring multiple admissions in the past, C diff infection, depression, hypertension, diabetes mellitus type 2, arthritis, anemia NOS, among others who was sent via EMS from [facility]; it was reported but their staff that the patient had been lethargic since earlier in the morning and although a stopgap insistent to send the patient to the ER, the patient kept refusing.? By this afternoon 1 hour prior to transfer, the patient was noted to be unresponsive to their questions a 1 point EMS was called, her O2 sat at the time had being in the low 80s on 6 L nasal cannula, the Head place the patient on a non-rebreather improving her oxygen levels to low 90s.? Upon arrival to the ER the patient had been lethargic but arousable to sternal rub and occasionally to her name. ? In the ER, the patient was noted to normal vital signs with section of hypoxia as it was reported she had a sat of 80% room air which improved with BiPAP but recurs as soon as you remove the mass.? Her workup revealed a white count of 9.4, hemoglobin of 11.7, hematocrit 41.3, platelets 315, INR 1.3, venous blood gas pH 7.24, pCO2 65, PO2 59, HC03 28, O2 sat 87%, sodium 137, potassium 6.9, chloride 102, carbon dioxide 27, anion gap 15, BUN 60, creatinine 1.66 with a previous baseline of (17 and 0.8 respectively), random glucose 312, lactic acid 0.7, magnesium 2.6, troponin 6.9, BNP 83, albumin 4.0, acetone negative, urinalysis negative, urine tox screen positive for opiates. Chest x-ray showed low volumes with streaky patchy bilateral airspace opacities compatible with atelectasis versus small areas of consolidations, mild vascular congestion and no overt pulmonary edema or pleural effusions.? Right foot x-ray reveals no evidence of osteomyelitis, patient does have a significant right lower extremity cellulitis, was treated with vancomycin and Zosyn, Lasix and we were called to admit the patient for further management. ? During the evaluation, the patient appears to be somnolent, does become alert with sternal rub but goes sleepy again. ? ROS:? Unable to obtain as the patient is somewhat somnolent and on BiPAP at this point ? Past Medical History:? As above ? Past Surgical History: Left total knee replacement ? Family history:? Noncontributory ? Social History: ?Has been every have since October of this year after her knee replacement. ?There is no history of alcohol, tobacco use. ? CODE STATUS: FULL CODE ? Allergies: NKDA ? Home Medications: See Med Rec ? PHYSICAL EXAM: VS: ?Blood pressure 111/72, heart rate 77, respirations 18, O2 sat 95% on BiPAP 16/8 with 40% FiO2, temperature 98.2 degrees. General:? Alert to sternal rub but unable to determine orientation.? Currently on BiPAP, following basic commands. Skin:? Old surgical scar of the bilateral knees. Right lower extremity diffuse erythema starting at the dorsal aspect of the foot all the way up to the tibial plateau with further ascending pink coloration and warmness into the mid inner thigh.? There appears to be some weeping from the mid tibial areas. There is a heel ulcer larger than a quarter, appears stage 2 -3 . There is also erythema with small area of opening about the size of a dime in the sacral area consistent with pressure ulcer stage 1-2 HEENT:? Head is normocephalic, atraumatic, pupils pinpoint, nonreactive bilaterally.? Buccal mucosa is dry., Neck is supple without lymphadenopathy. Cardiac:? Clear S1-S2, no murmurs rubs or gallops. Pulmonary:? Diminished lung sounds bilaterally with minor expiratory wheezing in the upper portions of both lungs particularly in the anterior aspect, no crackles or rales, rhonchi. Abdomen:? Protuberant, positive bowel sounds in all 4 quadrants.? Soft, nontender, no rebound or guarding.? Musculoskeletal:? Patient is moving all 4 extremities upon request at the major joints without crepitus.? Right lower extremity diffuse erythema as above.? Edema is noted and these leg is clearly asymmetric and bigger in comparison to the left. Neurologic:? As above, cranial nerves 2-12 are grossly intact.? No focal deficits noted. Motor strength as above.? Vascular:? 2+ pulses upper and left lower extremity at the dorsalis pedis aspect, right lower extremity dorsalis pedis pulse only present with Doppler ? SIGNIFICANT LABORATORY DATA:? As above ? REVIEW OF IMAGES: CXR IMPRESSION 1. Low lung volumes with streaky/patchy bilateral airspace opacities compatible with atelectasis or small areas of consolidation. 2. Mild pulmonary vascular congestion. No overt pulmonary edema or appreciable pleural effusions. ? R FOOT XR IMPRESSION 1. No acute osseous injury or radiographic evidence of advanced acute osteomyelitis. ? EKG REVIEW: ?To my view this is sinus rhythm 75 beats per minute, no discernible ST elevations or ST depressions evidence of first-degree AV block, left bundle branch block with left axis deviation, QTC 406. ?These studies very similar to December of this year.? No significant changes noted., ? ASSESSMENT AND PLAN: 1. Acute hypoxic / hypercapnic respiratory failure in Need of Bi Pap although I think the whole reason if her MS changes and hypoxia is due to Opioid overdose 2. Right lower extremity cellulitis without signs of sepsis 3. Right lower extremity edema likely due to # 2., rule out DVT specially because the patient has an infection and is on Megace 4. Acute hyperkalemia due to BERNIE and her intake of daily potassium 5. Acute kidney injury (multifactorial could be due to medications although I truly believe the patient is volume overloaded and these may actually improved with diuresis as we restore adequate perfusion) 6. Chronic opiate dependence and Concern for accidental overdose 7. Morbid obesity and obstructive sleep apnea 8. R heel pressure diabetic ulcer to be further staged; present on admission 9. Sacral pressure ulcer stage 1-2 10. Mild pulmonary congestion without overt CHF exacerbation ? PLAN OF CARE: 1. Patient will be admitted to the ICU, will continue with, repeat laboratories, blood gas at midnight and in the morning.? The appearance of cellulitis of the right leg is consistent with erysipelas, 2. Rocephin 2 g IV every 24 hours will be ordered, will screen her for MRSA organisms. 3. The erythema of the right lower extremity will be deliniated with surgical marking to ensure is not worsened or ascending lymphangitis 4. Right lower extremity ultrasound to rule out DVT; reportedly the patient was on a blood thinner but these medications have to be confirmed, if such is the case it is less likely 5. Clinically speaking the patient appears fluid overloaded on CXR, her BNP is low, she normally takes 80 mg of Lasix at the facility and today she did not receive this, will give her an additional 40 mg of Lasix IV x1; will discontinue IV fluids started in the ER. Will also give her little bit of Diamox and place her on IV b.i.d.lasix 6. I had asked the ER physician to give the patient albuterol 10 mg inhalation x1, we will give the patient Kayexalate. 7. XR right lower leg to ensure there is no evidence of inner tissue gas collection 8. Given my concern of accidental overdose as the patient does take opioids and has acute renal failure, I gave her Narcan 0.4 mg IV x1 with good effect, the patient immediately started to respond to my verbal commands something that she did not do before. ? GI PROPHYLAXIS:? IV ppi DVT PROPHYLAXIS: ?Once Med rec is confirmed will continue with apixaban Clinical update 01:30 03/28/2022 1. Her repeat potassium still high as 6.6, the patient did not receive the 10 mg albuterol lung in the ED, this will be administered now, will also give her insulin; but no D50 as her BS is 273 despite of Insulin given in ER, the patient is not able to take anything p.o. at this point. 2. even though the patient is on BiPAP, she has prolonged episodes of apnea not being in synchrony with the positive-pressure and having O2 sats in the mid 80s, patient is clearly overdose, I think at this point the patient will benefit from a Narcan drip. 3. Ultrasound of the right lower extremity reveals no DVT, x-ray of the lower extremity reveals no gas collection within the soft tissue. 4. Medication list was obtained from the patient's rehab, the patient has been on opioids and gabapentin, Eliquis. Clinical update 06:45 on 03/28/2022 1. Patient's laboratories show significant improvement of her blood gas, her pCO2, her renal function. 2. The patient's mental status has also improved significantly, rather than having to do sternal rubs, now the patient does respond to verbal stimuli, opens her eyes but I still believe that she needs a little more Narcan. 3. Currently the patient remains hemodynamically stable. Once the patient is of BiPAP, home medications need to be reviewed and resumed. 4. Head her hyperkalemia has also resolved I did have to give her a couple of doses of IV insulin along with albuterol 10 mg nebulizations. ? Critical care time used for critical evaluation of this patient, diagnosis, treatment and coordination of care, review her records and documentation TOTAL CRITICAL CARE TIME 150 MIN . Patient's care was discussed in detail with Dr. Aguila.? He is aware of all the above as well as the plan of care for this patient. ? [facility] Past Medical History Medical History Anemia Arthritis Atelectasis of both lungs CHF (congestive heart failure) Clostridium difficile infection Depression Diabetes mellitus, type 2 Hypertension Hypoventilation associated with obesity syndrome Morbid obesity SMILEY (obstructive sleep apnea) Pulmonary embolism Respiratory failure with hypoxia and hypercapnia Surgical History Surgical History History of total knee replacement Social History Social History (Updated 01/05/22 @ 12:40 by Zakiya Hendricks RN) Household Members: Unknown / Unable to assess Housing: Other Housing Other:: rehab facility Are you a primary critical care nurse specialist to a significant other at home: No Do you presently have visiting nurse or other home services: No Unable to assess alcohol history related to: Unknown Patient Tobacco Use Status: Tobacco use Unknown Use of substances other than those prescribed or required for medical reasons: Unknown Substance Use Type: Unknown Currently Displaying Signs/Symptoms of Drug Intoxication Withdrawal: No Advance Directives: No Advance Directives Information Provided: No Nutrition Risks: No Nutritional Risk Patient : No : No Poor oral hygiene: No service: No Current occupational status: disabled Meds Allergies Allergy/AdvReac Type Severity Reaction Status Date / Time latex Allergy Unknown Unknown Verified 01/05/22 03:32 adhesive tape AdvReac Unknown Unknown Verified 01/05/22 03:32 bupropion [From Wellbutrin] AdvReac Unknown Unknown Verified 01/05/22 03:32 ibuprofen AdvReac Unknown Unknown Verified 01/05/22 03:32 Active Medications: Current Medications Heparin Sodium (Porcine) (Heparin Sodium,Porcine 5,000 Unit/Ml Vial) 5,000 unit SUBCUT Q8H ROSSY Last Admin: 03/27/22 20:28 Dose: 5,000 unit Pantoprazole Sodium (Pantoprazole Sodium 40 Mg/10 Ml Vial) 40 mg IVPUSH DAILY REPLACED BY [facility] Consult (Consult Rx Perform Med Rec) 1 each MISCELLANE ONCE PRN PRN Reason: Consult order Home Medications Medication Instructions Recorded Confirmed Last Taken Type Saccharomyces boulardii 250 mg 250 mg PO BID 11/18/21 03/28/22 Unknown History capsule acetaminophen 325 mg tablet 650 mg PO Q4H PRN Fever Or Pain 11/18/21 03/28/22 Unknown History apixaban 5 mg tablet 5 mg PO BID 11/18/21 03/28/22 Unknown History atorvastatin 80 mg tablet 80 mg PO BEDTIME 11/18/21 03/28/22 Unknown History bupropion HCl 450 mg 24 hr tablet, 450 mg PO BEDTIME 11/18/21 03/28/22 Unknown History extended release enalapril maleate 20 mg tablet 40 mg PO DAILY 11/18/21 03/28/22 Unknown History ferrous sulfate 325 mg (65 mg 325 mg PO DAILY 11/18/21 03/28/22 Unknown History iron) tablet furosemide 80 mg tablet 80 mg PO DAILY 11/18/21 03/28/22 Unknown History gabapentin 300 mg capsule 300 mg PO DAILY@1200 11/18/21 03/28/22 Unknown History gabapentin 300 mg capsule 600 mg PO BID 11/18/21 03/28/22 Unknown History insulin glargine 100 unit/mL (3 52 unit subcut DAILY 11/18/21 03/28/22 Unknown History mL) subcutaneous pen insulin lispro 100 unit/mL 22 unit subcut TIDAC 11/18/21 03/28/22 Unknown History subcutaneous pen insulin lispro 100 unit/mL See Protocol subcut QIDACHS 11/18/21 03/28/22 Unknown History subcutaneous pen lidocaine 4 % topical patch 1 patch topical DAILY 11/18/21 03/28/22 Unknown History magnesium citrate 150 ml PO DAILY PRN Constipation 11/18/21 03/28/22 Unknown History magnesium hydroxide 400 mg/5 mL 30 ml PO DAILY PRN Constipation 11/18/21 03/28/22 Unknown History oral suspension (Milk of Magnesia) melatonin 3 mg tablet 3 mg PO BEDTIME 11/18/21 03/28/22 Unknown History oxycodone 10 mg tablet 10 mg PO BEDTIME 11/18/21 03/28/22 Unknown History polyethylene glycol 3350 17 gram 17 g PO DAILY PRN Constipation 11/18/21 03/28/22 Unknown History oral powder packet (Miralax) sennosides 8.6 mg tablet (senna) 16.2 mg PO DAILY PRN Constipation 11/18/21 03/28/22 Unknown History sertraline 100 mg tablet 200 mg PO DAILY 11/18/21 03/28/22 Unknown History tizanidine 4 mg tablet 4 mg PO BEDTIME PRN Muscle Spasm 11/18/21 03/28/22 Unknown History aspirin 81 mg chewable tablet 81 mg PO DAILY 01/05/22 03/28/22 Unknown History bisacodyl 10 mg rectal suppository 10 mg [place] DAILY PRN Constipation 01/05/22 03/28/22 Unknown History carvedilol 6.25 mg tablet 12.5 mg PO BID 01/05/22 03/28/22 Unknown History isosorbide mononitrate 60 mg 1 tab PO DAILY 01/05/22 03/28/22 Unknown History tablet,extended release 24 hr megestrol 400 mg/10 mL (10 mL) 40 mg PO Q8H 01/05/22 03/28/22 Unknown History oral suspension oxycodone 10 mg tablet 10 mg PO Q8H PRN Pain, Severe 01/05/22 03/28/22 Unknown History potassium chloride 20 mEq 20 meq PO DAILY 01/05/22 03/28/22 Unknown History tablet,extended release amoxicillin 500 mg capsule 1,000 mg PO Q12H 03/27/22 03/28/22 Unknown History Physical Exam Vital Signs: Vital Signs: Last Vital Signs Temp 98.2 F 03/27/22 17:47 Pulse 77 03/27/22 20:23 Resp 18 03/27/22 20:23 BP 111/72 03/27/22 20:23 Pulse Ox 95 03/27/22 20:23 O2 Del Method 03/27/22 20:23 O2 Flow Rate 100 03/27/22 17:47 FiO2 40 03/27/22 20:23 Oxygen Flow Rate 100 03/27/22 17:29 BMI result Body Mass Index 62.6 Results Labs CBC and Chem 7: 03/28/22 05:54 03/28/22 05:55 Labs: Laboratory Results - last 24 hr 03/27/22 03/27/2222 18:03 18:40 18:40 MCV 88.6 MCH 25.1 L MCHC 28.3 L RDW 15.6 Plt Count 315 D MPV 9.1 L Immature Gran % (Auto) 0.4 Neut % (Auto) 81.6 H Lymph % (Auto) 9.3 L [place] % (Auto) 7.3 Eos % (Auto) 1.1 Baso % (Auto) 0.3 Lymph # (Auto) 0.9 L [place] # (Auto) 0.7 Eos # (Auto) 0.1 Baso # (Auto) 0.0 Abs Immat Gran (auto) 0.04 H Absolute Neuts (auto) 7.7 Absolute Nucleated RBC 0.000 Nucleated RBC % (auto) 0.0 PT 14.7 H INR 1.3 H VBG pH VBG pCO2 VBG pO2 VBG HCO3 VBG O2 Saturation VBG Base Excess Anion Gap 15 Estim Creat Clear Calc 58.7 Estimated GFR 31 Random Glucose 312 H Lactic Acid Calcium 8.8 Magnesium 2.6 Total Bilirubin 0.4 Direct Bilirubin < 0.2 AST 9 ALT 13 Alkaline Phosphatase 123 H D Troponin I High Sens B-Natriuretic Peptide Total Protein 8.3 H D Albumin 4.0 D TSH Urine Color Urine Appearance Urine pH Ur Specific [place] Urine Protein Urine Glucose (UA) Urine Ketones Urine Blood Urine Nitrite Ur Leukocyte Esterase Urine RBC Urine WBC Ur Squamous Epith Cells Urine Bacteria Urine Opiates Screen Urine Fentanyl Screen Ur Barbiturates Screen Ur Phencyclidine Scrn Ur Amphetamines Screen U Benzodiazepines Scrn Urine Cocaine Screen U Marijuana (THC) Screen Acetone, Qual Negative 03/27/22 03/27/22 03/27/22 18:40 18:40 18:40 MCV MCH MCHC RDW Plt Count MPV Immature Gran % (Auto) Neut % (Auto) Lymph % (Auto) [place] % (Auto) Eos % (Auto) Baso % (Auto) Lymph # (Auto) [place] # (Auto) Eos # (Auto) Baso # (Auto) Abs Immat Gran (auto) Absolute Neuts (auto) Absolute Nucleated RBC Nucleated RBC % (auto) PT INR VBG pH VBG pCO2 VBG pO2 VBG HCO3 VBG O2 Saturation VBG Base Excess Anion Gap Estim Creat Clear Calc Estimated GFR Random Glucose Lactic Acid 0.7 Calcium Magnesium Total Bilirubin Direct Bilirubin AST ALT Alkaline Phosphatase Troponin I High Sens 6.9 B-Natriuretic Peptide 83 Total Protein Albumin TSH Urine Color Urine Appearance Urine pH Ur Specific [place] Urine Protein Urine Glucose (UA) Urine Ketones Urine Blood Urine Nitrite Ur Leukocyte Esterase Urine RBC Urine WBC Ur Squamous Epith Cells Urine Bacteria Urine Opiates Screen Urine Fentanyl Screen Ur Barbiturates Screen Ur Phencyclidine Scrn Ur Amphetamines Screen U Benzodiazepines Scrn Urine Cocaine Screen U Marijuana (THC) Screen Acetone, Qual 03/27/22 03/27/22 03/27/22 18:40 18:40 18:40 MCV MCH MCHC RDW Plt Count MPV Immature Gran % (Auto) Neut % (Auto) Lymph % (Auto) [place] % (Auto) Eos % (Auto) Baso % (Auto) Lymph # (Auto) [place] # (Auto) Eos # (Auto) Baso # (Auto) Abs Immat Gran (auto) Absolute Neuts (auto) Absolute Nucleated RBC Nucleated RBC % (auto) PT INR VBG pH VBG pCO2 VBG pO2 VBG HCO3 VBG O2 Saturation VBG Base Excess Anion Gap Estim Creat Clear Calc Estimated GFR Random Glucose Lactic Acid Calcium Magnesium Total Bilirubin Direct Bilirubin AST ALT Alkaline Phosphatase Troponin I High Sens B-Natriuretic Peptide Total Protein Albumin TSH 3.27 Urine Color YELLOW Urine Appearance HAZY Urine pH 5.0 Ur Specific [place] >= 1.030 H Urine Protein NEG Urine Glucose (UA) 500 H Urine Ketones NEG Urine Blood TRACE Urine Nitrite NEG Ur Leukocyte Esterase NEG Urine RBC 5-9 H Urine WBC 0 Ur Squamous Epith Cells TRACE Urine Bacteria 1+ Urine Opiates Screen POSITIVE H Urine Fentanyl Screen Not Detected Ur Barbiturates Screen Not Detected Ur Phencyclidine Scrn Not Detected Ur Amphetamines Screen Not Detected U Benzodiazepines Scrn Not Detected Urine Cocaine Screen Not Detected U Marijuana (THC) Screen Not Detected Acetone, Qual 03/27/22 18:50 MCV MCH MCHC RDW Plt Count MPV Immature Gran % (Auto) Neut % (Auto) Lymph % (Auto) [place] % (Auto) Eos % (Auto) Baso % (Auto) Lymph # (Auto) [place] # (Auto) Eos # (Auto) Baso # (Auto) Abs Immat Gran (auto) Absolute Neuts (auto) Absolute Nucleated RBC Nucleated RBC % (auto) PT INR VBG pH 7.24 L VBG pCO2 65 VBG pO2 59 VBG HCO3 28 H VBG O2 Saturation 87.0 VBG Base Excess Not Reportable Anion Gap Estim Creat Clear Calc Estimated GFR Random Glucose Lactic Acid Calcium Magnesium Total Bilirubin Direct Bilirubin AST ALT Alkaline Phosphatase Troponin I High Sens B-Natriuretic Peptide Total Protein Albumin TSH Urine Color Urine Appearance Urine pH Ur Specific [place] Urine Protein Urine Glucose (UA) Urine Ketones Urine Blood Urine Nitrite Ur Leukocyte Esterase Urine RBC Urine WBC Ur Squamous Epith Cells Urine Bacteria Urine Opiates Screen Urine Fentanyl Screen Ur Barbiturates Screen Ur Phencyclidine Scrn Ur Amphetamines Screen U Benzodiazepines Scrn Urine Cocaine Screen U Marijuana (THC) Screen Acetone, Qual Imaging Radiologist's Impressions: Impressions Chest X-Ray 03/27/22 18:30 IMPRESSION: 1. Low lung volumes with streaky/patchy bilateral airspace opacities compatible with atelectasis or small areas of consolidation. 2. Mild pulmonary vascular congestion. No overt pulmonary edema or appreciable pleural effusions. Foot X-Ray 03/27/22 18:30 IMPRESSION: 1. No acute osseous injury or radiographic evidence of advanced acute osteomyelitis.
--- NOTE | 2022-03-27 22:29 | PC.NURSE ---
Report called to [facility]. Will prepare for transport.
[2022-03-27 23:05] LABS: COVID-19 Test Negative (Negative)
[2022-03-27] MEDS: Albuterol Sulfate (0.083%) 2.5 MG/3 ML VIAL.NEB 10 MG INHALE (23:27)
[2022-03-27] MEDS: cefTRIAXone sodium 2 GM in 0.9 % Sodium Chloride 50 ML IV (23:40)
[2022-03-28] VITALS (25 sets, daily range): BP systolic 105–171; BP diastolic 33–73; PULSE 64–91; RESP 12–26; TEMP 36.2–37.9; O2SAT 89–96; BMI 62.6
[2022-03-28 00:01] LABS: Anion Gap 18 (12-20); Blood Urea Nitrogen 65 mg/dL (9-16); Calcium 8.7 mg/dL (8.4-10.2); Carbon Dioxide 23 mmol/L (22-29); Chloride 107 mmol/L (96-108); Creatinine Clr Calc Pharmacy 66.8; Estimated Glomerular Filt Rate 36; Glucose Random 276 mg/dL (60-115); Potassium 6.6 mmol/L (3.3-5.1); Sodium 141 mmol/L (135-145)
[2022-03-28] MEDS: Insulin Regular, Human 100 UNIT/ML 3 ML VIAL 10 UNIT IVPUSH ×2 (00:19→03:22)
[2022-03-28] MEDS: Furosemide 40 MG/4 ML VIAL IVPUSH (00:27)
[2022-03-28] MEDS: Naloxone HCl 0.4 MG/ML VIAL IVPUSH ×2 (00:32)
[2022-03-28] MEDS: Naloxone HCl 5 MG in Dextrose 5 % 95 ML 20 MG IV ×2 (00:40→04:41)
[2022-03-28 02:17] LABS: ABG Base Excess 5.1 mmol/L; ABG HCO3 33 mmol/L (22-26); ABG pCO2 63 mmHg (32-45); ABG pH 7.32 (7.35-7.45); ABG pO2 77 mmHg (83-108)
[2022-03-28] MEDS: Albuterol Sulfate (0.083%) 2.5 MG/3 ML VIAL.NEB 10 MG INHALE (02:19)
[2022-03-28 02:34] LABS: Glucose, Whole Blood 218 mg/dL (60-115)
[2022-03-28] MEDS: acetaZOLAMIDE sodium 500 MG VIAL IVPUSH ×2 (03:21→07:57)
[2022-03-28 04:31] LABS: ABG Refer to POC result
[2022-03-28 06:03] LABS: Imm Gran Abs Auto 0.03 X10*3/uL (0.00-0.03); Imm Gran Pct Auto 0.4 % (0.0-0.4); PLT CLUMP 1; SCAN SMEAR FLAG 1
[2022-03-28 06:05] LABS: Basophils Percent Auto 0.4 % (0-2); Eosinophils Absolute Auto 0.1 X10*3/uL (0.0-0.4); Hemoglobin 11.7 g/dl (12.0-16.0); Lymphocytes Percent Auto 12.6 % (20-40); Mean Corpuscular HGB Conc 28.5 g/dl (31.0-35.0); Mean Corpuscular Hemoglobin 24.9 pg (27.0-33.0); Mean Corpuscular Volume 87.4 fL (80.0-98.0); Monocytes Absolute Auto 0.6 X10*3/uL (0.1-1.2); Monocytes Percent Auto 7.4 % (2-11); Neutrophils Absolute Auto 6.3 x10*3/uL (2.0-8.3); Neutrophils Percent Auto 78.2 % (45-73); Red Blood Count 4.69 X10*6/uL (4.20-5.50); Red Cell Distribution Width 15.4 % (11.0-16.0)
[2022-03-28 06:07] LABS: MANUAL DIFF FLAG NO; Venous Blood Gas Refer to POC result; White Blood Count 8.1 X10*3/uL (4.8-10.8)
[2022-03-28 06:08] LABS: VBG Base Excess -2.3 mmol/L; VBG HCO3 22 mmol/L (22-26); VBG pCO2 37 mmHg; VBG pH 7.38 (7.32-7.43); VBG pO2 49 mmHg
[2022-03-28 06:20] LABS: Alanine Aminotransferase 10 U/L (0-31); Albumin Level 3.5 g/dL (3.5-5.0); Alkaline Phosphatase 103 U/L (39-117); Anion Gap 16 (12-20); Aspartate Amino Transferase 12 U/L (5-31); Bilirubin Total 0.4 mg/dL (0.0-1.0); Blood Urea Nitrogen 56 mg/dL (9-16); Calcium 8.8 mg/dL (8.4-10.2); Carbon Dioxide 26 mmol/L (22-29); Chloride 103 mmol/L (96-108); Creatinine Clr Calc Pharmacy 76.8; Estimated Glomerular Filt Rate 43; Glucose Random 235 mg/dL (60-115); Phosphorus 3.9 mg/dL (2.7-4.5); Potassium 5.1 mmol/L (3.3-5.1); Sodium 140 mmol/L (135-145); Total Protein 7.7 g/dL (6.5-8.0)
[2022-03-28 06:21] LABS: Platelet Count 223 X10*3/uL (160-400)
[2022-03-28 06:31] LABS: Glucose, Whole Blood 225 mg/dL (60-115)
--- NOTE | 2022-03-28 07:20 | PC.NURSE ---
Patient admitted to ICU from ED at approximately 2300. Upon assessment patient having prolonged episodes of apnea and appeared to be obtunded, not responding to name and minimally responding to sternal rub. Patient on bipap desating to the 80's at times. Otherwise VSS. LS diminished . Narcan 0.4 IV x1 administered with good effect . Patient responded well therefore Narcan 0.4 mg IV repeatedx1 , pt started on Narcan drip at 0.1mg /hr. and immediately began responding to verbal commands and is tolerating bipap well. Will continue to monitor and report any changes.
[2022-03-28] MEDS: Furosemide 100 MG/10 ML VIAL 80 MG IVPUSH (07:56)
[2022-03-28] MEDS: Pantoprazole Sodium 40 MG/10 ML VIAL IVPUSH (07:57)
[2022-03-28 08:14] LABS: Estimated Average Glucose 255 mg/dL; Hemoglobin A1c % 10.5 %
[2022-03-28] MEDS: Insulin Glargine,Hum.rec.anlog 100 UNIT/ML 10 ML VIAL 40 UNIT SUBCUT (09:00)
[2022-03-28 09:07] LABS: Glucose, Whole Blood 224 mg/dL (60-115)
[2022-03-28] MEDS: Insulin Lispro 100 UNIT/ML 3 ML VIAL SUBCUT ×3 (09:08→21:06)
[2022-03-28] MEDS: Naloxone HCl 5 MG in Dextrose 5 % 95 ML IV (10:05)
--- NOTE | 2022-03-28 10:06 | MHC.CM.PN ---
Pt in ICU from [facility]. Lethargic: opening eyes but minimally responsive to questions. On Narcan gtt. Information obtained from EMR and phone conversation with [facility] RN. Pt is non ambulatory: OOB to huma chair via wilder: can assist with ADL's but requires 2 persons for positioning d/t body habitus. MOLST at facility: requested fax for pt chart. Message left w/spouse and reported HCP Miah. Vax x3. D/C Plan is for a return to SNF for continued STR. Referral made: BLS transport
[2022-03-28] MEDS: modafiniL 100 MG TABLET 200 MG PO (12:01)
[2022-03-28] MEDS: Furosemide 200 MG in 0.9 % Sodium Chloride 80 ML IVCONT (12:18)
--- NOTE | 2022-03-28 12:44 | PM.CCPN ---
Subjective Subjective Date of Service: 03/28/22 Interval History: Mrs. Das was admitted to the ICU last night with acute respiratory failure requiring BiPAP. I know the patient very well from her last two visits to the hospital in November and December.? The patient is a 60-year-old woman with PMHx of supermorbid obesity, OHS w CO2 retention, hypertension, congestive heart failure, pressure ulcers, osteoarthritis, depression, neuropathy for which she?s on gabapentin 1500mg daily, and she had a failed lap band that was removed about 3 years ago.? Had C. Diff earlier this year.? She has recurrent cellulitis of her right leg.and mult decubitus ulcers of her sacrum/buttocks, her perineum, and her right heel.? Her right leg is chronically bigger than the left. 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 She was treated with antibiotics for a year in an effort to save the joint.? During that time she had an upper extremity PE from a PICC line, and was started on Eliquis.? After failing a year of abx, the joint was removed and a spacer placed, after which she was completely bedbound for three years.? On 10/23/21, she underwent redo left TKR at [facility].? She was transferred to [facility] for rehab on 11/07. On November 18, [place] [facility] [place] found lethargic, cyanotic and hypoxemic at [facility].? No response to naloxone.? She was initially trialed on BiPAP but then intubated for worsening mental status and hypercapnia.? Creatinine at that time was 2.2.? PCO2 was 91, base excess was +14.? She was treated with abx, diuresis, and Diamox.? Extubated within 2 days and discharged from hospital on November 27.? Creatinine on discharge was 1.0, bicarb was 29 on Diamox. ECHOCARDIOGRAM that hospitalization showed: ?- normal LV size and contractility. ?- mildly enlarged RV with RV:LV cavity ratio 0.8-0.9.? Normal RV function. ?- No AI ?- 1+ MR ?- No TR ?- IVC 2.2 cm with no insp collapse. She was readmitted to the hospital January 04 again for altered mental status due to hypercarbic respiratory failure, this time probably 2? opiates.? She was also treated for recurrent cellulitis of her right leg.? As far as I know, she is supposed to be on nighttime BiPAP.? On discharge from that hospitalization, creatinine was down to 0.8. HISTORY OF PRESENT ILLNESS: Patient was sent to the ED last night from [facility] because of progressively decreasing mental status during the day yesterday.? At the scene, EMS found O2 sat in the low 80s on 6 L nasal cannula.? According to the patient's med rec, her meds at the intermediate included amoxicillin, oxycodone, Eliquis, Lasix 80 mg daily, gabapentin 1500 mg daily, among others.? She is not on Diamox. Upon arrival to the ER the patient was arousable to sternal rub and occasionally to her name.? Sat 80% on room air, improved with BiPAP.? Chest exam was clear, she had 2+ pitting edema, with the right lower extremity cellulitis. ?Workup revealed WBC of 9.4, Hb 11.7, BUN/creatinine 60/1.6, potassium was 6.9, bicarb 27, glucose 312, BNP 83, lactic acid 0.7.? VBG 7.24/65/bicarb 28.? Urine tox screen positive for opiates.? Urinalysis negative for infection Chest x-ray showed low volumes with streaky patchy bilateral airspace opacities compatible with atelectasis versus small areas of consolidations, mild vascular congestion and no overt pulmonary edema or pleural effusions.? Right foot x-ray revealed no evidence of osteomyelitis. She was treated with vancomycin, Zosyn, and 2 L of crystalloid and admitted to the ICU for respiratory management with BiPAP.? On our exam, she was somnolent and disoriented.? General physical exam was notable for a stage 2-3 heel ulcer and a stage 1-2 sacral pressure ulcer.? She had pinpoint pupils.? Ultrasound of the right lower extremity showed no DVT, an x-ray of the lower extremity showed no gas collection. The patient was started on Narcan, Lasix, and ceftriaxone.? Gabapentin was held.? Repeat labs started to show improvement in her renal indices and her potassium. ?She stayed on BiPAP all night.? She made 4 L of urine overnight; she is net-1.2 L On my exam this morning, she is sleepy on BiPAP, but easily arousable.? Pupils are about 5 mm.? On BiPAP 20/8/35%, RR is 22, Vt 660cc, Ve 13L, Sat 94%.? Venous blood gas this morning showed 7.38/37/-2.? HR 69, sinus rhythm on the monitor. ?BP 134/64.? Tmax 100.2?.? No JVD at 30?.? Chest is clear to auscultation, with normal expiratory phase.? Heart tones are soft, I heard no murmur or gallops.? Abdomen is hugely obese, benign.? She has 1-2+ pitting edema.? Right lower extremities definitely more red than last time I saw her, and warm. She has about a silver dollar sized stage II pressure wound on her coccyx, and a slightly bigger stage III wound on her right heel. LABORATORY DATA:? Below.? Notably, BUN/creatinine are down to 56/1.2, potassium is 5.1, bicarb is 26, Camacho is 3.9, glucose 235, albumin 3.5.? Blood cultures negative so far. IMPRESSION: 1. Underlying morbid obesity. 2. Likely underlying obesity hypoventilation syndrome.? Her head and neck habitus are very suggestive of SMILEY, and her admitting serum bicarb level in November was 37, with marked hypercapnia on her arterial blood gas. 3. Status post redo left TKA.? The wound looks perfect, no evidence of infection.? I put in a PT consult. 4. History of congestive heart failure.? 2? LV DDx if anything, but she also probably has at least mild RHF.? Her Med Rec includes diuretics, Coreg, and enalapril.? Clinically, I think she needs to be diuresed about 10 liters (maybe more).? With her creat improving, I put her on a Lasix infusion.? She?ll probably also need Diamox to control her met alkalosis and pCO2. 5. Altered mental status on admission.? Given that her pCO2 and base excess were not markedly elevated, that suggests another etiology rather than CO2 narcosis.? Her pupils were severely miotic and she very definitely responded to Narcan, so I think opiates were partly responsible.? I also bet that gabapentin played a role, especially given that her renal indices were elevated.? This is now the third time that she has been admitted for this problem in four months.? I think the gabapentin should be discontinued permanently and opiates need to be significantly limited.? I also think Provigil daily might be helpful in addition to nighttime BiPAP.? I started her on Provigil this morning. 6. BERNIE. ?The fact that she has responded to diuretics with improvement in her renal indices suggests that her BERNIE is due to heart failure, either diastolic heart failure and/or right heart failure.? She definitely needs to stay on diuretics chronically.? Note that diuretics will promote metabolic alkalosis which would be catastrophic for her, in facilitating hypercarbia.? So she may need to be on chronic Diamox if her serum bicarb arises. 7. Acute hypoxemic and hypercapnic respiratory failure.? Secondary to hypoventilation and heart failure, as above. 8. Anticoagulation.? Continuing anticoagulation bec of h/o PE and high risk. 9. ID:? Likely has a cellulitis of the right lower leg.? We changed her abx to ceftriaxone.? The wound already looks significantly improved. 10. Decubitus ulcers.? Usual care.? We put in a wound consult. With the above measures (andreia holding the gabapentin, nighttime BiPAP, and daily Provigil), she should be stable for transfer to [facility].? Will sign out to the hospitalists. Time (including extended chart review, extensive d/w the patient):? 100+ min. Critical Care Time (minutes): 0 Physical Exam Vital Signs: Vital Signs: Last Vital Signs Temp 99.7 F 03/28/22 12:00 Pulse 76 03/28/22 12:00 Resp 19 03/28/22 12:00 BP 107/41 L 03/28/22 12:00 Pulse Ox 90 L 03/28/22 12:00 O2 Del Method 03/28/22 12:00 O2 Flow Rate 60 03/28/22 12:00 FiO2 32 03/28/22 12:00 Oxygen Flow Rate 100 03/27/22 17:29 BMI result Body Mass Index 62.6 Objective Data Labs CBC & Chem 7: 03/28/22 05:54 03/28/22 05:55 Labs: Laboratory Results - last 24 hr 03/27/22 03/27/22 03/27/22 18:03 18:40 18:40 WBC 9.4 RBC 4.66 D Hgb 11.7 L D Hct 41.3 D MCV 88.6 MCH 25.1 L MCHC 28.3 L RDW 15.6 Plt Count 315 D MPV 9.1 L Immature Gran % (Auto) 0.4 Neut % (Auto) 81.6 H Lymph % (Auto) 9.3 L [place] % (Auto) 7.3 Eos % (Auto) 1.1 Baso % (Auto) 0.3 Lymph # (Auto) 0.9 L [place] # (Auto) 0.7 Eos # (Auto) 0.1 Baso # (Auto) 0.0 Abs Immat Gran (auto) 0.04 H Absolute Neuts (auto) 7.7 Absolute Nucleated RBC 0.000 Nucleated RBC % (auto) 0.0 PT 14.7 H INR 1.3 H O2 Saturation ABG pH at Pt Temp ABG pCO2 at Pt Temp ABG pO2 at Pt Temp ABG HCO3 ABG Base Excess (Actual) VBG pH VBG pCO2 VBG pO2 VBG HCO3 VBG O2 Saturation VBG Base Excess Sodium 137 Potassium 6.9 H* D Chloride 102 Carbon Dioxide 27 Anion Gap 15 BUN 68 H D Creatinine 1.66 H Estim Creat Clear Calc 58.7 Estimated GFR 31 POC Glucose Random Glucose 312 H Estimat Average Glucose Hemoglobin A1c % Lactic Acid Calcium 8.8 Phosphorus Magnesium 2.6 Total Bilirubin 0.4 Direct Bilirubin < 0.2 AST 9 ALT 13 Alkaline Phosphatase 123 H D Troponin I High Sens B-Natriuretic Peptide Total Protein 8.3 H D Albumin 4.0 D TSH Urine Color Urine Appearance Urine pH Ur Specific [place] Urine Protein Urine Glucose (UA) Urine Ketones Urine Blood Urine Nitrite Ur Leukocyte Esterase Urine RBC Urine WBC Ur Squamous Epith Cells Urine Bacteria Urine Opiates Screen Urine Fentanyl Screen Ur Barbiturates Screen Ur Phencyclidine Scrn Ur Amphetamines Screen U Benzodiazepines Scrn Urine Cocaine Screen U Marijuana (THC) Screen Acetone, Qual Negative COVID-19 (LIS) COVID-19 Clin Com 03/27/22 03/27/22 03/27/22 18:40 18:40 18:40 WBC RBC Hgb Hct MCV MCH MCHC RDW Plt Count MPV Immature Gran % (Auto) Neut % (Auto) Lymph % (Auto) [place] % (Auto) Eos % (Auto) Baso % (Auto) Lymph # (Auto) [place] # (Auto) Eos # (Auto) Baso # (Auto) Abs Immat Gran (auto) Absolute Neuts (auto) Absolute Nucleated RBC Nucleated RBC % (auto) PT INR O2 Saturation ABG pH at Pt Temp ABG pCO2 at Pt Temp ABG pO2 at Pt Temp ABG HCO3 ABG Base Excess (Actual) VBG pH VBG pCO2 VBG pO2 VBG HCO3 VBG O2 Saturation VBG Base Excess Sodium Potassium Chloride Carbon Dioxide Anion Gap BUN Creatinine Estim Creat Clear Calc Estimated GFR POC Glucose Random Glucose Estimat Average Glucose Hemoglobin A1c % Lactic Acid 0.7 Calcium Phosphorus Magnesium Total Bilirubin Direct Bilirubin AST ALT Alkaline Phosphatase Troponin I High Sens 6.9 B-Natriuretic Peptide 83 Total Protein Albumin TSH Urine Color Urine Appearance Urine pH Ur Specific [place] Urine Protein Urine Glucose (UA) Urine Ketones Urine Blood Urine Nitrite Ur Leukocyte Esterase Urine RBC Urine WBC Ur Squamous Epith Cells Urine Bacteria Urine Opiates Screen Urine Fentanyl Screen Ur Barbiturates Screen Ur Phencyclidine Scrn Ur Amphetamines Screen U Benzodiazepines Scrn Urine Cocaine Screen U Marijuana (THC) Screen Acetone, Qual COVID-19 (LIS) COVID-19 Clin Com 03/27/22 03/27/22 03/27/22 18:40 18:40 18:40 WBC RBC Hgb Hct MCV MCH MCHC RDW Plt Count MPV Immature Gran % (Auto) Neut % (Auto) Lymph % (Auto) [place] % (Auto) Eos % (Auto) Baso % (Auto) Lymph # (Auto) [place] # (Auto) Eos # (Auto) Baso # (Auto) Abs Immat Gran (auto) Absolute Neuts (auto) Absolute Nucleated RBC Nucleated RBC % (auto) PT INR O2 Saturation ABG pH at Pt Temp ABG pCO2 at Pt Temp ABG pO2 at Pt Temp ABG HCO3 ABG Base Excess (Actual) VBG pH VBG pCO2 VBG pO2 VBG HCO3 VBG O2 Saturation VBG Base Excess Sodium Potassium Chloride Carbon Dioxide Anion Gap BUN Creatinine Estim Creat Clear Calc Estimated GFR POC Glucose Random Glucose Estimat Average Glucose Hemoglobin A1c % Lactic Acid Calcium Phosphorus Magnesium Total Bilirubin Direct Bilirubin AST ALT Alkaline Phosphatase Troponin I High Sens B-Natriuretic Peptide Total Protein Albumin TSH 3.27 Urine Color YELLOW Urine Appearance HAZY Urine pH 5.0 Ur Specific [place] >= 1.030 H Urine Protein NEG Urine Glucose (UA) 500 H Urine Ketones NEG Urine Blood TRACE Urine Nitrite NEG Ur Leukocyte Esterase NEG Urine RBC 5-9 H Urine WBC 0 Ur Squamous Epith Cells TRACE Urine Bacteria 1+ Urine Opiates Screen POSITIVE H Urine Fentanyl Screen Not Detected Ur Barbiturates Screen Not Detected Ur Phencyclidine Scrn Not Detected Ur Amphetamines Screen Not Detected U Benzodiazepines Scrn Not Detected Urine Cocaine Screen Not Detected U Marijuana (THC) Screen Not Detected Acetone, Qual COVID-19 (LIS) COVID-19 Keen Impressions Com 03/27/22 03/27/22 03/27/22 18:50 22:36 23:21 WBC RBC Hgb Hct MCV MCH MCHC RDW Plt Count MPV Immature Gran % (Auto) Neut % (Auto) Lymph % (Auto) [place] % (Auto) Eos % (Auto) Baso % (Auto) Lymph # (Auto) [place] # (Auto) Eos # (Auto) Baso # (Auto) Abs Immat Gran (auto) Absolute Neuts (auto) Absolute Nucleated RBC Nucleated RBC % (auto) PT INR O2 Saturation ABG pH at Pt Temp ABG pCO2 at Pt Temp ABG pO2 at Pt Temp ABG HCO3 ABG Base Excess (Actual) VBG pH 7.24 L VBG pCO2 65 VBG pO2 59 VBG HCO3 28 H VBG O2 Saturation 87.0 VBG Base Excess Not Reportable Sodium 141 Potassium 6.6 H* Chloride 107 Carbon Dioxide 23 Anion Gap 18 BUN 65 H Creatinine 1.46 H Estim Creat Clear Calc 66.8 Estimated GFR 36 POC Glucose Random Glucose 276 H Estimat Average Glucose Hemoglobin A1c % Lactic Acid Calcium 8.7 Phosphorus Magnesium Total Bilirubin Direct Bilirubin AST ALT Alkaline Phosphatase Troponin I High Sens B-Natriuretic Peptide Total Protein Albumin TSH Urine Color Urine Appearance Urine pH Ur Specific [place] Urine Protein Urine Glucose (UA) Urine Ketones Urine Blood Urine Nitrite Ur Leukocyte Esterase Urine RBC Urine WBC Ur Squamous Epith Cells Urine Bacteria Urine Opiates Screen Urine Fentanyl Screen Ur Barbiturates Screen Ur Phencyclidine Scrn Ur Amphetamines Screen U Benzodiazepines Scrn Urine Cocaine Screen U Marijuana (THC) Screen Acetone, Qual COVID-19 (LIS) Negative COVID-19 Clin Com See Note 03/28/22 03/28/22 03/28/22 02:10 02:31 05:54 WBC 8.1 RBC 4.69 Hgb 11.7 L Hct 41.0 MCV 87.4 MCH 24.9 L MCHC 28.5 L RDW 15.4 Plt Count 223 D MPV 10.0 Immature Gran % (Auto) 0.4 Neut % (Auto) 78.2 H Lymph % (Auto) 12.6 L [place] % (Auto) 7.4 Eos % (Auto) 1.0 Baso % (Auto) 0.4 Lymph # (Auto) 1.0 L [place] # (Auto) 0.6 Eos # (Auto) 0.1 Baso # (Auto) 0.0 Abs Immat Gran (auto) 0.03 Absolute Neuts (auto) 6.3 Absolute Nucleated RBC 0.000 Nucleated RBC % (auto) 0.0 PT INR O2 Saturation 95.0 ABG pH at Pt Temp 7.32 L ABG pCO2 at Pt Temp 63 H* ABG pO2 at Pt Temp 77 L ABG HCO3 33 H ABG Base Excess (Actual) 5.1 VBG pH VBG pCO2 VBG pO2 VBG HCO3 VBG O2 Saturation VBG Base Excess Sodium Potassium Chloride Carbon Dioxide Anion Gap BUN Creatinine Estim Creat Clear Calc Estimated GFR POC Glucose 218 H Random Glucose Estimat Average Glucose Hemoglobin A1c % Lactic Acid Calcium Phosphorus Magnesium Total Bilirubin Direct Bilirubin AST ALT Alkaline Phosphatase Troponin I High Sens B-Natriuretic Peptide Total Protein Albumin TSH Urine Color Urine Appearance Urine pH Ur Specific [place] Urine Protein Urine Glucose (UA) Urine Ketones Urine Blood Urine Nitrite Ur Leukocyte Esterase Urine RBC Urine WBC Ur Squamous Epith Cells Urine Bacteria Urine Opiates Screen Urine Fentanyl Screen Ur Barbiturates Screen Ur Phencyclidine Scrn Ur Amphetamines Screen U Benzodiazepines Scrn Urine Cocaine Screen U Marijuana (THC) Screen Acetone, Qual COVID-19 (LIS) COVID-19 Clin Com 03/28/22 03/28/22 03/28/22 05:54 05:55 06:03 WBC RBC Hgb Hct MCV MCH MCHC RDW Plt Count MPV Immature Gran % (Auto) Neut % (Auto) Lymph % (Auto) [place] % (Auto) Eos % (Auto) Baso % (Auto) Lymph # (Auto) [place] # (Auto) Eos # (Auto) Baso # (Auto) Abs Immat Gran (auto) Absolute Neuts (auto) Absolute Nucleated RBC Nucleated RBC % (auto) PT INR O2 Saturation ABG pH at Pt Temp ABG pCO2 at Pt Temp ABG pO2 at Pt Temp ABG HCO3 ABG Base Excess (Actual) VBG pH 7.38 VBG pCO2 37 VBG pO2 49 VBG HCO3 22 VBG O2 Saturation 83.0 VBG Base Excess -2.3 Sodium 140 Potassium 5.1 D Chloride 103 Carbon Dioxide 26 Anion Gap 16 BUN 56 H Creatinine 1.27 Estim Creat Clear Calc 76.8 Estimated GFR 43 POC Glucose Random Glucose 235 H Estimat Average Glucose 255 Hemoglobin A1c % 10.5 Lactic Acid Calcium 8.8 Phosphorus 3.9 Magnesium Total Bilirubin 0.4 Direct Bilirubin AST 12 ALT 10 Alkaline Phosphatase 103 Troponin I High Sens B-Natriuretic Peptide Total Protein 7.7 Albumin 3.5 TSH Urine Color Urine Appearance Urine pH Ur Specific [place] Urine Protein Urine Glucose (UA) Urine Ketones Urine Blood Urine Nitrite Ur Leukocyte Esterase Urine RBC Urine WBC Ur Squamous Epith Cells Urine Bacteria Urine Opiates Screen Urine Fentanyl Screen Ur Barbiturates Screen Ur Phencyclidine Scrn Ur Amphetamines Screen U Benzodiazepines Scrn Urine Cocaine Screen U Marijuana (THC) Screen Acetone, Qual COVID-19 (LIS) COVID-19 Clin Com 03/28/22 03/28/22 06:27 09:02 WBC RBC Hgb Hct MCV MCH MCHC RDW Plt Count MPV Immature Gran % (Auto) Neut % (Auto) Lymph % (Auto) [place] % (Auto) Eos % (Auto) Baso % (Auto) Lymph # (Auto) [place] # (Auto) Eos # (Auto) Baso # (Auto) Abs Immat Gran (auto) Absolute Neuts (auto) Absolute Nucleated RBC Nucleated RBC % (auto) PT INR O2 Saturation ABG pH at Pt Temp ABG pCO2 at Pt Temp ABG pO2 at Pt Temp ABG HCO3 ABG Base Excess (Actual) VBG pH VBG pCO2 VBG pO2 VBG HCO3 VBG O2 Saturation VBG Base Excess Sodium Potassium Chloride Carbon Dioxide Anion Gap BUN Creatinine Estim Creat Clear Calc Estimated GFR POC Glucose 225 H 224 H Random Glucose Estimat Average Glucose Hemoglobin A1c % Lactic Acid Calcium Phosphorus Magnesium Total Bilirubin Direct Bilirubin AST ALT Alkaline Phosphatase Troponin I High Sens B-Natriuretic Peptide Total Protein Albumin TSH Urine Color Urine Appearance Urine pH Ur Specific [place] Urine Protein Urine Glucose (UA) Urine Ketones Urine Blood Urine Nitrite Ur Leukocyte Esterase Urine RBC Urine WBC Ur Squamous Epith Cells Urine Bacteria Urine Opiates Screen Urine Fentanyl Screen Ur Barbiturates Screen Ur Phencyclidine Scrn Ur Amphetamines Screen U Benzodiazepines Scrn Urine Cocaine Screen U Marijuana (THC) Screen Acetone, Qual COVID-19 (LIS) COVID-19 Clin Com Quality Stroke Does the patient have a stroke diagnosis?: No VTE Prior VTE?: Yes VTE Risk Level:: Medical - moderate - high VTE Device Contraindication: N/A - Device Ordered VTE Drug Contraindication: N/A - Med Ordered
[2022-03-28 16:02] LABS: Glucose, Whole Blood 200 mg/dL (60-115)
--- NOTE | 2022-03-28 19:41 | HO.WOUNDCONS ---
History of Present Illness Data of Consult Service Date: 03/28/22 Requesting physician: Real Aguila Primary Care Provider: Tita Bal MD [facility] Reason for consult: right heel wound The pt is a morbidly obese female with multiple med problems who passes out and has been brought to the hospital. she has a wound on the right heel which has been there for months. she is diabetic not well controlled. she says many people have seen the wound and no one can help heal it. [facility] Medical History Anemia Arthritis Atelectasis of both lungs CHF (congestive heart failure) Clostridium difficile infection Depression Diabetes mellitus, type 2 Hypertension Hypoventilation associated with obesity syndrome Morbid obesity SMILEY (obstructive sleep apnea) Pulmonary embolism Respiratory failure with hypoxia and hypercapnia Surgical History History of total knee replacement Social History (Updated 01/05/22 @ 12:40 by Zakiya Hendricks RN) Household Members: Unknown / Unable to assess Housing: Other Housing Other:: rehab facility Are you a primary healthcare liaison to a significant other at home: No Do you presently have visiting nurse or other home services: No Unable to assess alcohol history related to: Unknown Patient Tobacco Use Status: Tobacco use Unknown Use of substances other than those prescribed or required for medical reasons: Unknown Substance Use Type: Unknown Currently Displaying Signs/Symptoms of Drug Intoxication Withdrawal: No Advance Directives: No Advance Directives Information Provided: No Nutrition Risks: No Nutritional Risk Patient : No : No Poor oral hygiene: No service: No Current occupational status: disabled Meds Allergies Allergy/AdvReac Type Severity Reaction Status Date / Time latex Allergy Unknown Unknown Verified 01/05/22 03:32 adhesive tape AdvReac Unknown Unknown Verified 01/05/22 03:32 bupropion [From Wellbutrin] AdvReac Unknown Unknown Verified 01/05/22 03:32 ibuprofen AdvReac Unknown Unknown Verified 01/05/22 03:32 Active Medications: Current Medications Apixaban (Apixaban 5 Mg Tablet) 5 mg PO BID [facility] Last Admin: 03/28/22 21:05 Dose: 5 mg Aspirin (Aspirin 81 Mg Tab.Chew) 81 mg PO DAILY [facility] Last Admin: 03/28/22 11:02 Dose: Not Given Glucose (Glucose Gel 15 Gm Gel..Gram.) 15 gm PO Q15M PRN; Protocol PRN Reason: per Hypoglycemia Standing Ord. Ceftriaxone Sodium 2 gm/ (Sodium Chloride) 50 mls @ 100 mls/hr IV Q24H [facility] Last Admin: 03/29/22 00:11 Dose: 100 mls/hr Furosemide 200 mg/ Sodium (Chloride) 100 mls @ 5 mls/hr IVCONT .Q20H [facility] Last Admin: 03/28/22 12:18 Dose: 10 mg/hr, 5 mls/hr Insulin Glargine (Insulin Glargine,Hum.Rec.Anlog 100 Unit/Ml 10 Ml Vial) 40 unit SUBCUT DAILY [facility] Last Admin: 03/28/22 09:00 Dose: 40 unit Insulin Human Lispro (Insulin Lispro 100 Unit/Ml 3 Ml Vial) 0 unit SUBCUT QIDACHS [facility]; Protocol Last Admin: 03/28/22 21:06 Dose: 6 unit Modafinil (Modafinil 100 Mg Tablet) 200 mg PO DAILY [facility] Pantoprazole Sodium (Pantoprazole Sodium 40 Mg/10 Ml Vial) 40 mg IVPUSH DAILY [facility] Last Admin: 03/28/22 07:57 Dose: 40 mg Pharmacy Consult (Consult Rx Perform Med Rec) 1 each MISCELLANE ONCE PRN PRN Reason: Consult order Sertraline HCl (Sertraline Hcl 100 Mg Tablet) 200 mg PO DAILY [facility] Last Admin: 03/28/22 11:02 Dose: Not Given Home Medications Medication Instructions Recorded Confirmed Last Taken Type Saccharomyces boulardii 250 mg 250 mg PO BID 11/18/21 03/28/22 Unknown History capsule acetaminophen 325 mg tablet 650 mg PO Q4H PRN Fever Or Pain 11/18/21 03/28/22 Unknown History apixaban 5 mg tablet 5 mg PO BID 11/18/21 03/28/22 Unknown History atorvastatin 80 mg tablet 80 mg PO BEDTIME 11/18/21 03/28/22 Unknown History bupropion HCl 450 mg 24 hr tablet, 450 mg PO BEDTIME 11/18/21 03/28/22 Unknown History extended release enalapril maleate 20 mg tablet 40 mg PO DAILY 11/18/21 03/28/22 Unknown History ferrous sulfate 325 mg (65 mg 325 mg PO DAILY 11/18/21 03/28/22 Unknown History iron) tablet furosemide 80 mg tablet 80 mg PO DAILY 11/18/21 03/28/22 Unknown History gabapentin 300 mg capsule 300 mg PO DAILY@1200 11/18/21 03/28/22 Unknown History gabapentin 300 mg capsule 600 mg PO BID 11/18/21 03/28/22 Unknown History insulin glargine 100 unit/mL (3 52 unit subcut DAILY 11/18/21 03/28/22 Unknown History mL) subcutaneous pen insulin lispro 100 unit/mL 22 unit subcut TIDAC 11/18/21 03/28/22 Unknown History subcutaneous pen insulin lispro 100 unit/mL See Protocol subcut QIDACHS 11/18/21 03/28/22 Unknown History subcutaneous pen lidocaine 4 % topical patch 1 patch topical DAILY 11/18/21 03/28/22 Unknown History magnesium citrate 150 ml PO DAILY PRN Constipation 11/18/21 03/28/22 Unknown History magnesium hydroxide 400 mg/5 mL 30 ml PO DAILY PRN Constipation 11/18/21 03/28/22 Unknown History oral suspension (Milk of Magnesia) melatonin 3 mg tablet 3 mg PO BEDTIME 11/18/21 03/28/22 Unknown History oxycodone 10 mg tablet 10 mg PO BEDTIME 11/18/21 03/28/22 Unknown History polyethylene glycol 3350 17 gram 17 g PO DAILY PRN Constipation 11/18/21 03/28/22 Unknown History oral powder packet (Miralax) sennosides 8.6 mg tablet (senna) 16.2 mg PO DAILY PRN Constipation 11/18/21 03/28/22 Unknown History sertraline 100 mg tablet 200 mg PO DAILY 11/18/21 03/28/22 Unknown History tizanidine 4 mg tablet 4 mg PO BEDTIME PRN Muscle Spasm 11/18/21 03/28/22 Unknown History aspirin 81 mg chewable tablet 81 mg PO DAILY 01/05/22 03/28/22 Unknown History bisacodyl 10 mg rectal suppository 10 mg SC DAILY PRN Constipation 01/05/22 03/28/22 Unknown History carvedilol 6.25 mg tablet 12.5 mg PO BID 01/05/22 03/28/22 Unknown History isosorbide mononitrate 60 mg 1 tab PO DAILY 01/05/22 03/28/22 Unknown History tablet,extended release 24 hr megestrol 400 mg/10 mL (10 mL) 40 mg PO Q8H 01/05/22 03/28/22 Unknown History oral suspension oxycodone 10 mg tablet 10 mg PO Q8H PRN Pain, Severe 01/05/22 03/28/22 Unknown History potassium chloride 20 mEq 20 meq PO DAILY 01/05/22 03/28/22 Unknown History tablet,extended release amoxicillin 500 mg capsule 1,000 mg PO Q12H 03/27/22 03/28/22 Unknown History Physical Exam Vital Signs and Narrative: Vital Signs: Last Vital Signs Temp 97.2 F 03/28/22 23:24 Pulse 83 03/28/22 23:24 Resp 16 03/28/22 23:24 BP 155/73 H 03/28/22 23:24 Pulse Ox 93 03/28/22 23:24 O2 Del Method 03/28/22 23:24 O2 Flow Rate 60 03/28/22 16:06 FiO2 32 03/28/22 16:06 Oxygen Flow Rate 100 03/27/22 17:29 BMI result Body Mass Index 62.6 Skin: Other: right lateral heel has a 4x3.8 cn full thickness wound into the fatty tissue with significant slough. no evidence of infection. legs are large Results Labs CBC and Chem 7: 03/28/22 05:54 03/28/22 05:55 Labs: Laboratory Results - last 24 hr 03/28/22 03/28/22 03/28/22 02:10 02:31 05:54 MCV 87.4 MCH 24.9 L MCHC 28.5 L RDW 15.4 Plt Count 223 D MPV 10.0 Immature Gran % (Auto) 0.4 Neut % (Auto) 78.2 H Lymph % (Auto) 12.6 L Nash % (Auto) 7.4 Eos % (Auto) 1.0 Baso % (Auto) 0.4 Lymph # (Auto) 1.0 L Nash # (Auto) 0.6 Eos # (Auto) 0.1 Baso # (Auto) 0.0 Abs Immat Gran (auto) 0.03 Absolute Neuts (auto) 6.3 Absolute Nucleated RBC 0.000 Nucleated RBC % (auto) 0.0 O2 Saturation 95.0 ABG pH at Pt Temp 7.32 L ABG pCO2 at Pt Temp 63 H* ABG pO2 at Pt Temp 77 L ABG HCO3 33 H ABG Base Excess (Actual) 5.1 VBG pH VBG pCO2 VBG pO2 VBG HCO3 VBG O2 Saturation VBG Base Excess Anion Gap Estim Creat Clear Calc Estimated GFR POC Glucose 218 H Random Glucose Estimat Average Glucose Hemoglobin A1c % Calcium Phosphorus Total Bilirubin AST ALT Alkaline Phosphatase Total Protein Albumin 03/28/22 03/28/22 03/28/22 05:54 05:55 06:03 MCV MCH MCHC RDW Plt Count MPV Immature Gran % (Auto) Neut % (Auto) Lymph % (Auto) Nash % (Auto) Eos % (Auto) Baso % (Auto) Lymph # (Auto) Nash # (Auto) Eos # (Auto) Baso # (Auto) Abs Immat Gran (auto) Absolute Neuts (auto) Absolute Nucleated RBC Nucleated RBC % (auto) O2 Saturation ABG pH at Pt Temp ABG pCO2 at Pt Temp ABG pO2 at Pt Temp ABG HCO3 ABG Base Excess (Actual) VBG pH 7.38 VBG pCO2 37 VBG pO2 49 VBG HCO3 22 VBG O2 Saturation 83.0 VBG Base Excess -2.3 Anion Gap 16 Estim Creat Clear Calc 76.8 Estimated GFR 43 POC Glucose Random Glucose 235 H Estimat Average Glucose 255 Hemoglobin A1c % 10.5 Calcium 8.8 Phosphorus 3.9 Total Bilirubin 0.4 AST 12 ALT 10 Alkaline Phosphatase 103 Total Protein 7.7 Albumin 3.5 03/28/22 03/28/22 03/28/22 06:27 09:02 15:59 MCV MCH MCHC RDW Plt Count MPV Immature Gran % (Auto) Neut % (Auto) Lymph % (Auto) Nash % (Auto) Eos % (Auto) Baso % (Auto) Lymph # (Auto) Nash # (Auto) Eos # (Auto) Baso # (Auto) Abs Immat Gran (auto) Absolute Neuts (auto) Absolute Nucleated RBC Nucleated RBC % (auto) O2 Saturation ABG pH at Pt Temp ABG pCO2 at Pt Temp ABG pO2 at Pt Temp ABG HCO3 ABG Base Excess (Actual) VBG pH VBG pCO2 VBG pO2 VBG HCO3 VBG O2 Saturation VBG Base Excess Anion Gap Estim Creat Clear Calc Estimated GFR POC Glucose 225 H 224 H 200 H Random Glucose Estimat Average Glucose Hemoglobin A1c % Calcium Phosphorus Total Bilirubin AST ALT Alkaline Phosphatase Total Protein Albumin 03/28/22 20:45 MCV MCH MCHC RDW Plt Count MPV Immature Gran % (Auto) Neut % (Auto) Lymph % (Auto) Nash % (Auto) Eos % (Auto) Baso % (Auto) Lymph # (Auto) Nash # (Auto) Eos # (Auto) Baso # (Auto) Abs Immat Gran (auto) Absolute Neuts (auto) Absolute Nucleated RBC Nucleated RBC % (auto) O2 Saturation ABG pH at Pt Temp ABG pCO2 at Pt Temp ABG pO2 at Pt Temp ABG HCO3 ABG Base Excess (Actual) VBG pH VBG pCO2 VBG pO2 VBG HCO3 VBG O2 Saturation VBG Base Excess Anion Gap Estim Creat Clear Calc Estimated GFR POC Glucose 271 H Random Glucose Estimat Average Glucose Hemoglobin A1c % Calcium Phosphorus Total Bilirubin AST ALT Alkaline Phosphatase Total Protein Albumin Assessment and Plan (1) Diabetic ulcer of foot associated with diabetes mellitus due to underlying condition, with fat layer exposed: Status: Acute Plan 61 year old female morbid obesity with multiple med issues with right heel wound - prob started off as a pressure ulcer and then has not healed due to her diabetes, poor nutrition and offloading pt needs wound debridement at bedside and silver alginate dressings and then keeping foot off pressure areas while sitting or in bed
[2022-03-28 20:48] LABS: Glucose, Whole Blood 271 mg/dL (60-115)
[2022-03-28] MEDS: Apixaban 5 MG TABLET PO (21:05)
--- NOTE | 2022-03-28 23:49 | HO.WOUNDCONS ---
History of Present Illness Data of Consult Service Date: 03/28/22 Primary Care Provider: Tita Bal MD [facility] Medical History Anemia Arthritis Atelectasis of both lungs CHF (congestive heart failure) Clostridium difficile infection Depression Diabetes mellitus, type 2 Hypertension Hypoventilation associated with obesity syndrome Morbid obesity SMILEY (obstructive sleep apnea) Pulmonary embolism Respiratory failure with hypoxia and hypercapnia Surgical History History of total knee replacement Social History (Updated 01/05/22 @ 12:40 by Zakiya Hendricks RN) Household Members: Unknown / Unable to assess Housing: Other Housing Other:: rehab facility Are you a primary workforce investment act career manager to a significant other at home: No Do you presently have visiting nurse or other home services: No Unable to assess alcohol history related to: Unknown Patient Tobacco Use Status: Tobacco use Unknown Use of substances other than those prescribed or required for medical reasons: Unknown Substance Use Type: Unknown Currently Displaying Signs/Symptoms of Drug Intoxication Withdrawal: No Advance Directives: No Advance Directives Information Provided: No Nutrition Risks: No Nutritional Risk Patient : No : No Poor oral hygiene: No service: No Current occupational status: disabled Meds Allergies Allergy/AdvReac Type Severity Reaction Status Date / Time latex Allergy Unknown Unknown Verified 01/05/22 03:32 adhesive tape AdvReac Unknown Unknown Verified 01/05/22 03:32 bupropion [From Wellbutrin] AdvReac Unknown Unknown Verified 01/05/22 03:32 ibuprofen AdvReac Unknown Unknown Verified 01/05/22 03:32 Active Medications: Current Medications Apixaban (Apixaban 5 Mg Tablet) 5 mg PO BID [facility] Last Admin: 03/28/22 21:05 Dose: 5 mg Aspirin (Aspirin 81 Mg Tab.Chew) 81 mg PO DAILY [facility] Last Admin: 03/28/22 11:02 Dose: Not Given Glucose (Glucose Gel 15 Gm Gel..Gram.) 15 gm PO Q15M PRN; Protocol PRN Reason: per Hypoglycemia Standing Ord. Ceftriaxone Sodium 2 gm/ (Sodium Chloride) 50 mls @ 100 mls/hr IV Q24H [facility] Last Admin: 03/29/22 00:11 Dose: 100 mls/hr Furosemide 200 mg/ Sodium (Chloride) 100 mls @ 5 mls/hr IVCONT .Q20H [facility] Last Admin: 03/28/22 12:18 Dose: 10 mg/hr, 5 mls/hr Insulin Glargine (Insulin Glargine,Hum.Rec.Anlog 100 Unit/Ml 10 Ml Vial) 40 unit SUBCUT DAILY [facility] Last Admin: 03/28/22 09:00 Dose: 40 unit Insulin Human Lispro (Insulin Lispro 100 Unit/Ml 3 Ml Vial) 0 unit SUBCUT QIDACHS [facility]; Protocol Last Admin: 03/28/22 21:06 Dose: 6 unit Modafinil (Modafinil 100 Mg Tablet) 200 mg PO DAILY [facility] Pantoprazole Sodium (Pantoprazole Sodium 40 Mg/10 Ml Vial) 40 mg IVPUSH DAILY [facility] Last Admin: 03/28/22 07:57 Dose: 40 mg Pharmacy Consult (Consult Rx Perform Med Rec) 1 each MISCELLANE ONCE PRN PRN Reason: Consult order Sertraline HCl (Sertraline Hcl 100 Mg Tablet) 200 mg PO DAILY [facility] Last Admin: 03/28/22 11:02 Dose: Not Given Home Medications Medication Instructions Recorded Confirmed Last Taken Type Saccharomyces boulardii 250 mg 250 mg PO BID 11/18/21 03/28/22 Unknown History capsule acetaminophen 325 mg tablet 650 mg PO Q4H PRN Fever Or Pain 11/18/21 03/28/22 Unknown History apixaban 5 mg tablet 5 mg PO BID 11/18/21 03/28/22 Unknown History atorvastatin 80 mg tablet 80 mg PO BEDTIME 11/18/21 03/28/22 Unknown History bupropion HCl 450 mg 24 hr tablet, 450 mg PO BEDTIME 11/18/21 03/28/22 Unknown History extended release enalapril maleate 20 mg tablet 40 mg PO DAILY 11/18/21 03/28/22 Unknown History ferrous sulfate 325 mg (65 mg 325 mg PO DAILY 11/18/21 03/28/22 Unknown History iron) tablet furosemide 80 mg tablet 80 mg PO DAILY 11/18/21 03/28/22 Unknown History gabapentin 300 mg capsule 300 mg PO DAILY@1200 11/18/21 03/28/22 Unknown History gabapentin 300 mg capsule 600 mg PO BID 11/18/21 03/28/22 Unknown History insulin glargine 100 unit/mL (3 52 unit subcut DAILY 11/18/21 03/28/22 Unknown History mL) subcutaneous pen insulin lispro 100 unit/mL 22 unit subcut TIDAC 11/18/21 03/28/22 Unknown History subcutaneous pen insulin lispro 100 unit/mL See Protocol subcut QIDACHS 11/18/21 03/28/22 Unknown History subcutaneous pen lidocaine 4 % topical patch 1 patch topical DAILY 11/18/21 03/28/22 Unknown History magnesium citrate 150 ml PO DAILY PRN Constipation 11/18/21 03/28/22 Unknown History magnesium hydroxide 400 mg/5 mL 30 ml PO DAILY PRN Constipation 11/18/21 03/28/22 Unknown History oral suspension (Milk of Magnesia) melatonin 3 mg tablet 3 mg PO BEDTIME 11/18/21 03/28/22 Unknown History oxycodone 10 mg tablet 10 mg PO BEDTIME 11/18/21 03/28/22 Unknown History polyethylene glycol 3350 17 gram 17 g PO DAILY PRN Constipation 11/18/21 03/28/22 Unknown History oral powder packet (Miralax) sennosides 8.6 mg tablet (senna) 16.2 mg PO DAILY PRN Constipation 11/18/21 03/28/22 Unknown History sertraline 100 mg tablet 200 mg PO DAILY 11/18/21 03/28/22 Unknown History tizanidine 4 mg tablet 4 mg PO BEDTIME PRN Muscle Spasm 11/18/21 03/28/22 Unknown History aspirin 81 mg chewable tablet 81 mg PO DAILY 01/05/22 03/28/22 Unknown History bisacodyl 10 mg rectal suppository 10 mg MT DAILY PRN Constipation 01/05/22 03/28/22 Unknown History carvedilol 6.25 mg tablet 12.5 mg PO BID 01/05/22 03/28/22 Unknown History isosorbide mononitrate 60 mg 1 tab PO DAILY 01/05/22 03/28/22 Unknown History tablet,extended release 24 hr megestrol 400 mg/10 mL (10 mL) 40 mg PO Q8H 01/05/22 03/28/22 Unknown History oral suspension oxycodone 10 mg tablet 10 mg PO Q8H PRN Pain, Severe 01/05/22 03/28/22 Unknown History potassium chloride 20 mEq 20 meq PO DAILY 01/05/22 03/28/22 Unknown History tablet,extended release amoxicillin 500 mg capsule 1,000 mg PO Q12H 03/27/22 03/28/22 Unknown History Physical Exam Vital Signs and Narrative: Vital Signs: Last Vital Signs Temp 97.2 F 03/28/22 23:24 Pulse 83 03/28/22 23:24 Resp 16 03/28/22 23:24 BP 155/73 H 03/28/22 23:24 Pulse Ox 93 03/28/22 23:24 O2 Del Method 03/28/22 23:24 O2 Flow Rate 60 03/28/22 16:06 FiO2 32 03/28/22 16:06 Oxygen Flow Rate 100 03/27/22 17:29 BMI result Body Mass Index 62.6 Results Labs CBC and Chem 7: 03/28/22 05:54 03/28/22 05:55 Labs: Laboratory Results - last 24 hr 03/28/22 03/28/22 03/28/22 02:10 02:31 05:54 MCV 87.4 MCH 24.9 L MCHC 28.5 L RDW 15.4 Plt Count 223 D MPV 10.0 Immature Gran % (Auto) 0.4 Neut % (Auto) 78.2 H Lymph % (Auto) 12.6 L [place] % (Auto) 7.4 Eos % (Auto) 1.0 Baso % (Auto) 0.4 Lymph # (Auto) 1.0 L [place] # (Auto) 0.6 Eos # (Auto) 0.1 Baso # (Auto) 0.0 Abs Immat Gran (auto) 0.03 Absolute Neuts (auto) 6.3 Absolute Nucleated RBC 0.000 Nucleated RBC % (auto) 0.0 O2 Saturation 95.0 ABG pH at Pt Temp 7.32 L ABG pCO2 at Pt Temp 63 H* ABG pO2 at Pt Temp 77 L ABG HCO3 33 H ABG Base Excess (Actual) 5.1 VBG pH VBG pCO2 VBG pO2 VBG HCO3 VBG O2 Saturation VBG Base Excess Anion Gap Estim Creat Clear Calc Estimated GFR POC Glucose 218 H Random Glucose Estimat Average Glucose Hemoglobin A1c % Calcium Phosphorus Total Bilirubin AST ALT Alkaline Phosphatase Total Protein Albumin 03/28/22 03/28/22 03/28/22 05:54 05:55 06:03 MCV MCH MCHC RDW Plt Count MPV Immature Gran % (Auto) Neut % (Auto) Lymph % (Auto) Placer % (Auto) Eos % (Auto) Baso % (Auto) Lymph # (Auto) Placer # (Auto) Eos # (Auto) Baso # (Auto) Abs Immat Gran (auto) Absolute Neuts (auto) Absolute Nucleated RBC Nucleated RBC % (auto) O2 Saturation ABG pH at Pt Temp ABG pCO2 at Pt Temp ABG pO2 at Pt Temp ABG HCO3 ABG Base Excess (Actual) VBG pH 7.38 VBG pCO2 37 VBG pO2 49 VBG HCO3 22 VBG O2 Saturation 83.0 VBG Base Excess -2.3 Anion Gap 16 Estim Creat Clear Calc 76.8 Estimated GFR 43 POC Glucose Random Glucose 235 H Estimat Average Glucose 255 Hemoglobin A1c % 10.5 Calcium 8.8 Phosphorus 3.9 Total Bilirubin 0.4 AST 12 ALT 10 Alkaline Phosphatase 103 Total Protein 7.7 Albumin 3.5 03/28/22 03/28/22 03/28/22 06:27 09:02 15:59 MCV MCH MCHC RDW Plt Count MPV Immature Gran % (Auto) Neut % (Auto) Lymph % (Auto) Placer % (Auto) Eos % (Auto) Baso % (Auto) Lymph # (Auto) Placer # (Auto) Eos # (Auto) Baso # (Auto) Abs Immat Gran (auto) Absolute Neuts (auto) Absolute Nucleated RBC Nucleated RBC % (auto) O2 Saturation ABG pH at Pt Temp ABG pCO2 at Pt Temp ABG pO2 at Pt Temp ABG HCO3 ABG Base Excess (Actual) VBG pH VBG pCO2 VBG pO2 VBG HCO3 VBG O2 Saturation VBG Base Excess Anion Gap Estim Creat Clear Calc Estimated GFR POC Glucose 225 H 224 H 200 H Random Glucose Estimat Average Glucose Hemoglobin A1c % Calcium Phosphorus Total Bilirubin AST ALT Alkaline Phosphatase Total Protein Albumin 03/28/22 20:45 MCV MCH MCHC RDW Plt Count MPV Immature Gran % (Auto) Neut % (Auto) Lymph % (Auto) Placer % (Auto) Eos % (Auto) Baso % (Auto) Lymph # (Auto) Placer # (Auto) Eos # (Auto) Baso # (Auto) Abs Immat Gran (auto) Absolute Neuts (auto) Absolute Nucleated RBC Nucleated RBC % (auto) O2 Saturation ABG pH at Pt Temp ABG pCO2 at Pt Temp ABG pO2 at Pt Temp ABG HCO3 ABG Base Excess (Actual) VBG pH VBG pCO2 VBG pO2 VBG HCO3 VBG O2 Saturation VBG Base Excess Anion Gap Estim Creat Clear Calc Estimated GFR POC Glucose 271 H Random Glucose Estimat Average Glucose Hemoglobin A1c % Calcium Phosphorus Total Bilirubin AST ALT Alkaline Phosphatase Total Protein Albumin
[2022-03-29] VITALS (7 sets, daily range): BP systolic 131–190; BP diastolic 61–86; PULSE 77–84; RESP 16–24; TEMP 36.1–36.8; O2SAT 94–96; BMI 61.0; BMI 61.3
[2022-03-29] MEDS: cefTRIAXone sodium 2 GM in 0.9 % Sodium Chloride 50 ML IV (00:11)
[2022-03-29] MEDS: Furosemide 200 MG in 0.9 % Sodium Chloride 80 ML IVCONT ×2 (06:11→23:37)
[2022-03-29 06:51] LABS: Venous Blood Gas Refer to POC result
[2022-03-29 06:52] LABS: VBG Base Excess 1.6 mmol/L; VBG HCO3 24 mmol/L (22-26); VBG pCO2 34 mmHg; VBG pH 7.46 (7.32-7.43); VBG pO2 74 mmHg
[2022-03-29 07:15] LABS: Glucose, Whole Blood 220 mg/dL (60-115)
[2022-03-29 07:40] LABS: Anion Gap 13 (12-20); Blood Urea Nitrogen 43 mg/dL (9-16); Calcium 8.6 mg/dL (8.4-10.2); Carbon Dioxide 30 mmol/L (22-29); Chloride 98 mmol/L (96-108); Creatinine Clr Calc Pharmacy 85.7; Estimated Glomerular Filt Rate 49; Glucose Random 221 mg/dL (60-115); Magnesium 1.7 mg/dL (1.6-2.6); Phosphorus 3.3 mg/dL (2.7-4.5); Potassium 3.7 mmol/L (3.3-5.1); Sodium 137 mmol/L (135-145)
[2022-03-29] MEDS: Insulin Glargine,Hum.rec.anlog 100 UNIT/ML 10 ML VIAL 40 UNIT SUBCUT (08:15)
[2022-03-29] MEDS: Insulin Lispro 100 UNIT/ML 3 ML VIAL SUBCUT ×4 (08:17→22:38)
[2022-03-29] MEDS: acetaZOLAMIDE 250 MG TABLET 500 MG PO ×2 (08:18→22:39)
[2022-03-29] MEDS: Sertraline HCL 100 MG TABLET 200 MG PO (08:18)
[2022-03-29] MEDS: modafiniL 100 MG TABLET 200 MG PO (08:18)
[2022-03-29] MEDS: Pantoprazole Sodium 40 MG/10 ML VIAL IVPUSH (08:19)
[2022-03-29] MEDS: Isosorbide Mononitrate 60 MG TAB.ER.24H PO (11:25)
[2022-03-29] MEDS: Enalapril Maleate 10 MG TABLET 40 MG PO (11:25)
[2022-03-29] MEDS: carvediloL 12.5 MG TABLET PO ×2 (11:25→22:39)
[2022-03-29] MEDS: Aspirin 81 MG TAB.CHEW PO (11:28)
[2022-03-29] MEDS: Apixaban 5 MG TABLET PO ×2 (11:30→22:39)
--- NOTE | 2022-03-29 11:43 | MHC.CLN ---
F/U PT WITH INCREASED NUTRITION RISK R/T PRESSURE INJURY NSG NOTED POOR PO INTAKE DIET RX: 1800DM-APPROPRIATE PT RECEIVING ENSURE MAX BID TO INCREASE PO PROTEIN FOR WOUND HEALING SUPP TO PROVIDE 300KCALS, 60G PROTEIN MONITOR PO INTAKE CLOSELY
[2022-03-29 11:46] LABS: Glucose, Whole Blood 298 mg/dL (60-115)
--- NOTE | 2022-03-29 11:48 | MHC.CM.PN ---
PER MD ROUNDS, PT LIKELY TO DC TOMORROW UPDATES SENT TO [facility] THEY WERE ALSO NOTIFIED OF EXPECTED DC DATE PT WILL REQUIRE BLS TRANSPORT
--- NOTE | 2022-03-29 12:37 | P.PNIM_ITS ---
Subjective Subjective Date of Service: 03/29/22 Interval History: the patient was seen and evaluated this morning Laying in bed, feels comfortable but reported generalized weakness Decrease oxygen supplement to 6 L No reported other overnight events. Systemic review: No fever, chills but has generalized weakness No chest pain, palpitation but has right lower extremity swelling No shortness of breath or coughing No abdominal pain, nausea or vomiting No urinary symptoms No any rash or wounds Physical Exam Vital Signs: Vital Signs: Last Vital Signs Temp 97.8 F 03/29/22 11:26 Pulse 82 03/29/22 11:26 Resp 24 H 03/29/22 11:26 BP 190/86 H 03/29/22 11:26 Pulse Ox 94 03/29/22 11:26 O2 Del Method 03/29/22 11:26 O2 Flow Rate 6 03/29/22 11:26 FiO2 32 03/28/22 16:06 Oxygen Flow Rate 100 03/27/22 17:29 BMI result Body Mass Index 61.3 Const: Other: Constitutional : Alert,? round face, not in distress Neck : Normal inspection, Supple Cardiovascular : RRR, S1 S2, +1 lower extremity edema Respiratory :? fair bilateral air entry, ? no fine crackles, wheezes or rhonchi Gastrointestinal:? soft, lax, Normal bowel sounds, Non tender Skin : Warm, Dry,? improved erythema in Rt LE, right heel wound full-thickness of 4 x 3 cm Neurological : Alert & oriented x3, No focal deficit Objective Data Active Medications Acetazolamide (Acetazolamide 250 Mg Tablet) 500 mg PO BID [facility] Last Admin: 03/29/22 08:18 Dose: 500 mg Documented By: ESTHER Amlodipine Besylate (Amlodipine Besylate 5 Mg Tablet) 5 mg PO DAILY [facility]; Protocol Apixaban (Apixaban 5 Mg Tablet) 5 mg PO BID [facility] Last Admin: 03/29/22 11:30 Dose: 5 mg Documented By: ESTHER Aspirin (Aspirin 81 Mg Tab.Chew) 81 mg PO DAILY [facility] Last Admin: 03/29/22 11:28 Dose: 81 mg Documented By: ESTHER Atorvastatin Calcium (Atorvastatin Calcium 80 Mg Tablet) 80 mg PO BEDTIME [facility] Bupropion HCl (Bupropion Hcl Xl 150 Mg Tab.Er.24h) 450 mg PO BEDTIME [facility] Carvedilol (Carvedilol 12.5 Mg Tablet) 12.5 mg PO BID [facility]; Protocol Last Admin: 03/29/22 11:25 Dose: 12.5 mg Documented By: ESTHER Enalapril Maleate (Enalapril Maleate 10 Mg Tablet) 40 mg PO DAILY [facility]; Protocol Last Admin: 03/29/22 11:25 Dose: 40 mg Documented By: ESTHER Ferrous Sulfate (Ferrous Sulfate 324 Mg Tablet.Dr) 324 mg PO DAILY [facility] Fluticasone/Vilanterol (Fluticasone/Vilanterol 100/25 Blst.W.Dev) 1 puff INHALE RDAILY [facility] Glucose (Glucose Gel 15 Gm Gel..Gram.) 15 gm PO Q15M PRN; Protocol PRN Reason: per Hypoglycemia Standing Ord. Ceftriaxone Sodium 2 gm/ (Sodium Chloride) 50 mls @ 100 mls/hr IV Q24H [facility] Last Infusion: 03/29/22 01:20 Dose: 0 mls/hr Documented By: ALYSSA Furosemide 200 mg/ Sodium (Chloride) 100 mls @ 5 mls/hr IVCONT .Q20H [facility] Last Admin: 03/29/22 06:11 Dose: 10 mg/hr, 5 mls/hr Documented By: ALYSSA Insulin Glargine (Insulin Glargine,Hum.Rec.Anlog 100 Unit/Ml 10 Ml Vial) 40 unit SUBCUT DAILY [facility] Last Admin: 03/29/22 08:15 Dose: 40 unit Documented By: ESTHER Insulin Human Lispro (Insulin Lispro 100 Unit/Ml 3 Ml Vial) 0 unit SUBCUT QIDACHS [facility]; Protocol Last Admin: 03/29/22 11:58 Dose: 6 unit Documented By: ESTHER Isosorbide Mononitrate (Isosorbide Mononitrate 60 Mg Tab.Er.24h) 60 mg PO DAILY [facility]; Protocol Last Admin: 03/29/22 11:25 Dose: 60 mg Documented By: ESTHER Megestrol Acetate (Megestrol Acetate 400 Mg/10 Ml Oral.Susp) 40 mg PO Q8H [facility] Last Admin: 03/29/22 11:31 Dose: Not Given Documented By: ESTHER Non-Admin Reason: Med Not Available Modafinil (Modafinil 100 Mg Tablet) 200 mg PO DAILY [facility] Last Admin: 03/29/22 08:18 Dose: 200 mg Documented By: ESTHER Pantoprazole Sodium (Pantoprazole Sodium 40 Mg/10 Ml Vial) 40 mg IVPUSH DAILY [facility] Last Admin: 03/29/22 08:19 Dose: 40 mg Documented By: ESTHER Pharmacy Consult (Consult Rx Perform Med Rec) 1 each MISCELLANE ONCE PRN PRN Reason: Consult order Polyethylene Glycol (Polyethylene Glycol 3350 17 Gm Powd.Pack) 17 gm PO DAILY PRN PRN Reason: Constipation Sertraline HCl (Sertraline Hcl 100 Mg Tablet) 200 mg PO DAILY [facility] Last Admin: 03/29/22 08:18 Dose: 200 mg Documented By: ESTHER Labs CBC & Chem 7: 03/28/22 05:54 03/29/22 06:38 Labs: Laboratory Results - last 24 hr 03/28/22 03/28/22 03/29/22 15:59 20:45 06:38 VBG pH VBG pCO2 VBG pO2 VBG HCO3 VBG O2 Saturation VBG Base Excess Anion Gap 13 Estim Creat Clear Calc 85.7 Estimated GFR 49 POC Glucose 200 H 271 H Random Glucose 221 H Calcium 8.6 Phosphorus 3.3 Magnesium 1.7 03/29/22 03/29/22 03/29/22 06:46 07:08 11:40 VBG pH 7.46 H VBG pCO2 34 VBG pO2 74 VBG HCO3 24 VBG O2 Saturation 95.0 VBG Base Excess 1.6 Anion Gap Estim Creat Clear Calc Estimated GFR POC Glucose 220 H 298 H Random Glucose Calcium Phosphorus Magnesium Microbiology Microbiology Results: Microbiology 03/27/22 18:40 Blood Culture - Preliminary Blood - Venous No growth after 24 hours. 03/27/22 18:03 Blood Culture - Preliminary Blood - Venous No growth after 24 hours. Assessment and Plan (1) Diabetic ulcer of foot associated with diabetes mellitus due to underlying condition, with fat layer exposed: Status: Acute (2) Respiratory failure with hypoxia and hypercapnia: Status: Acute (3) Acute hyperkalemia: Status: Acute (4) BERNIE (acute kidney injury): Status: Acute (5) Cellulitis of leg, right: Status: Acute Plan 60F presented with hypoxia and ams,? was admitted to the ICU for acute BiPAP.? Patient was diuresed with IV Lasix infusion, was treated for cellulitis of the right anterior leg. Acute hypoxic hypercapnic respiratory failure Secondary to ohs, SMILEY, home medications Patient noncompliance with her CPAP Restart low-dose gabapentin Wean oxygen down as tolerated Acute on chronic diastolic CHF Continue IV Lasix Monitor intake and output Will need Diamox at time of discharge Acute kidney injury Responded well to diuretics, likely cardiorenal Monitor urine output RLE cellulitis DC ceftriaxone, start cefazolin Start vancomycin p.o. for history of C diff ?Right heel diabetic ulcer Evaluated by wound care For bed side debridement Hypertension continue amlodipine, carvedilol, enalapril history of pulmonary embolism ?continue Eliquis ?morbid obesity ?weight loss ?recent left total knee arthroplasty revision ?does not appear infected, outpatient follow-up for staple removal ?physical debility ?continue PT ?diabetes ?insulin, monitor poin DVT PPX Eliquis The patient will need overnight hospital stay to continue weaning down her oxygen level while on IV Lasix drip to prevent decompensation into respiratory failure. Quality Stroke Does the patient have a stroke diagnosis?: No VTE Prior VTE?: Yes VTE Risk Level:: Medical - moderate - high VTE Device Contraindication: N/A - Device Ordered VTE Drug Contraindication: N/A - Med Ordered
[2022-03-29] MEDS: ceFAZolin Sodium/Dextrose,Iso 2 GM/50 ML PIGGYBACK IV ×2 (13:53→22:38)
[2022-03-29] MEDS: vancomycin HCL 125 MG CAPSULE PO ×2 (14:42→22:39)
[2022-03-29 16:37] LABS: Glucose, Whole Blood 306 mg/dL (60-115)
[2022-03-29] MEDS: Megestrol Acetate 400 MG/10 ML ORAL.SUSP 40 MG PO (17:09)
[2022-03-29 20:53] LABS: Glucose, Whole Blood 308 mg/dL (60-115)
[2022-03-29] MEDS: buPROPion HCl XL 150 MG TAB.ER.24H 450 MG PO (22:38)
[2022-03-29] MEDS: Atorvastatin Calcium 80 MG TABLET PO (22:39)
[2022-03-29] MEDS: traZODone HCL 50 MG TABLET PO (23:33)
[2022-03-30] VITALS (7 sets, daily range): BP systolic 103–157; BP diastolic 55–72; PULSE 63–76; RESP 18–22; TEMP 36.2–37.1; O2SAT 90–95
[2022-03-30] MEDS: vancomycin HCL 125 MG CAPSULE PO ×4 (01:29→21:14)
[2022-03-30] MEDS: Megestrol Acetate 400 MG/10 ML ORAL.SUSP 40 MG PO ×3 (01:29→16:57)
[2022-03-30] MEDS: oxyCODONE HCl Immed Release 5 MG TABLET PO (06:57)
[2022-03-30] MEDS: ceFAZolin Sodium/Dextrose,Iso 2 GM/50 ML PIGGYBACK IV ×3 (06:57→21:14)
[2022-03-30 06:59] LABS: Anion Gap 13 (12-20); Blood Urea Nitrogen 35 mg/dL (9-16); Calcium 8.7 mg/dL (8.4-10.2); Carbon Dioxide 32 mmol/L (22-29); Chloride 95 mmol/L (96-108); Creatinine Clr Calc Pharmacy 90.8; Estimated Glomerular Filt Rate 53; Glucose Random 206 mg/dL (60-115); Potassium 3.4 mmol/L (3.3-5.1); Sodium 137 mmol/L (135-145)
[2022-03-30] MEDS: Fluticasone/Vilanterol 100/25 BLST.W.DEV 1 PUFF INHALE (07:20)
[2022-03-30 07:25] LABS: Glucose, Whole Blood 196 mg/dL (60-115)
[2022-03-30] MEDS: Enalapril Maleate 10 MG TABLET 40 MG PO (08:28)
[2022-03-30] MEDS: acetaZOLAMIDE 250 MG TABLET 500 MG PO ×2 (08:28→21:14)
[2022-03-30] MEDS: Isosorbide Mononitrate 60 MG TAB.ER.24H PO (08:29)
[2022-03-30] MEDS: Insulin Lispro 100 UNIT/ML 3 ML VIAL SUBCUT ×4 (08:29→21:22)
[2022-03-30] MEDS: Insulin Glargine,Hum.rec.anlog 100 UNIT/ML 10 ML VIAL 40 UNIT SUBCUT (08:29)
[2022-03-30] MEDS: Sertraline HCL 100 MG TABLET 200 MG PO (08:30)
[2022-03-30] MEDS: modafiniL 100 MG TABLET 200 MG PO (08:30)
[2022-03-30] MEDS: Ferrous Sulfate 324 MG TABLET.DR PO (08:30)
[2022-03-30] MEDS: amLODIPine Besylate 5 MG TABLET PO (08:30)
[2022-03-30] MEDS: Aspirin 81 MG TAB.CHEW PO (08:30)
[2022-03-30] MEDS: carvediloL 12.5 MG TABLET PO ×2 (08:30→21:14)
[2022-03-30] MEDS: Pantoprazole Sodium 40 MG/10 ML VIAL IVPUSH (08:30)
[2022-03-30] MEDS: Apixaban 5 MG TABLET PO ×2 (08:30→21:15)
--- NOTE | 2022-03-30 10:52 | P.PNIM_ITS ---
Subjective Subjective Date of Service: 03/30/22 Interval History: the patient was seen and evaluated this morning Laying in bed, feels Tired Did not have the BiPAP placed overnight still on oxygen supplement to 6 L No reported other overnight events. Systemic review: No fever, chills but has generalized weakness No chest pain, palpitation but has right lower extremity swelling No shortness of breath or coughing No abdominal pain, nausea or vomiting No urinary symptoms No any rash or wounds Physical Exam Vital Signs: Vital Signs: Last Vital Signs Temp 97.2 F 03/30/22 08:00 Pulse 74 03/30/22 08:00 Resp 20 03/30/22 08:00 BP 144/70 H 03/30/22 08:00 Pulse Ox 95 03/30/22 08:00 O2 Del Method 03/30/22 08:00 O2 Flow Rate 6 03/30/22 08:00 FiO2 32 03/28/22 16:06 Oxygen Flow Rate 100 03/27/22 17:29 BMI result Body Mass Index 61.3 Const: Other: Constitutional : Alert,? round face, not in distress Neck : Normal inspection, Supple Cardiovascular : RRR, S1 S2, +1 lower extremity edema Respiratory :? fair bilateral air entry, ? no fine crackles, wheezes or rhonchi Gastrointestinal:? soft, lax, Normal bowel sounds, Non tender Skin : Warm, Dry,? improved erythema in Rt LE, right heel wound full-thickness of 4 x 3 cm Neurological : Alert & oriented x3, No focal deficit Objective Data Active Medications Acetazolamide (Acetazolamide 250 Mg Tablet) 500 mg PO BID [facility] Last Admin: 03/30/22 08:28 Dose: 500 mg Documented By: YENNY Amlodipine Besylate (Amlodipine Besylate 5 Mg Tablet) 5 mg PO DAILY [facility]; Protocol Last Admin: 03/30/22 08:30 Dose: 5 mg Documented By: YENNY Apixaban (Apixaban 5 Mg Tablet) 5 mg PO BID [facility] Last Admin: 03/30/22 08:30 Dose: 5 mg Documented By: YENNY Aspirin (Aspirin 81 Mg Tab.Chew) 81 mg PO DAILY [facility] Last Admin: 03/30/22 08:30 Dose: 81 mg Documented By: YENNY Atorvastatin Calcium (Atorvastatin Calcium 80 Mg Tablet) 80 mg PO BEDTIME [facility] Last Admin: 03/29/22 22:39 Dose: 80 mg Documented By: CHI Bupropion HCl (Bupropion Hcl Xl 150 Mg Tab.Er.24h) 450 mg PO BEDTIME [facility] Last Admin: 03/29/22 22:38 Dose: 450 mg Documented By: CHI Carvedilol (Carvedilol 12.5 Mg Tablet) 12.5 mg PO BID [facility]; Protocol Last Admin: 03/30/22 08:30 Dose: 12.5 mg Documented By: YENNY Enalapril Maleate (Enalapril Maleate 10 Mg Tablet) 40 mg PO DAILY [facility]; Protocol Last Admin: 03/30/22 08:28 Dose: 40 mg Documented By: YENNY Ferrous Sulfate (Ferrous Sulfate 324 Mg Tablet.Dr) 324 mg PO DAILY [facility] Last Admin: 03/30/22 08:30 Dose: 324 mg Documented By: YENNY Fluticasone/Vilanterol (Fluticasone/Vilanterol 100/25 Blst.W.Dev) 1 puff INHALE RDAILY [facility] Last Admin: 03/30/22 07:20 Dose: 1 puff Documented By: ROYCE Gabapentin (Gabapentin 100 Mg Capsule) 200 mg PO BID [facility] Glucose (Glucose Gel 15 Gm Gel..Gram.) 15 gm PO Q15M PRN; Protocol PRN Reason: per Hypoglycemia Standing Ord. Furosemide 200 mg/ Sodium (Chloride) 100 mls @ 5 mls/hr IVCONT .Q20H [facility] Last Admin: 03/29/22 23:37 Dose: 10 mg/hr, 5 mls/hr Documented By: CHI Cefazolin Sodium/Dextrose (Ancef) 2 gm in 50 mls @ 100 mls/hr IV Q8H [facility] Last Infusion: 03/30/22 07:32 Dose: 0 mls/hr Documented By: YENNY Insulin Glargine (Insulin Glargine,Hum.Rec.Anlog 100 Unit/Ml 10 Ml Vial) 40 unit SUBCUT DAILY [facility] Last Admin: 03/30/22 08:29 Dose: 40 unit Documented By: YENNY Insulin Human Lispro (Insulin Lispro 100 Unit/Ml 3 Ml Vial) 0 unit SUBCUT Q IDACHS [facility]; Protocol Last Admin: 03/30/22 08:29 Dose: 2 unit Documented By: YENNY Isosorbide Mononitrate (Isosorbide Mononitrate 60 Mg Tab.Er.24h) 60 mg PO DAILY [facility]; Protocol Last Admin: 03/30/22 08:29 Dose: 60 mg Documented By: YENNY Megestrol Acetate (Megestrol Acetate 400 Mg/10 Ml Oral.Susp) 40 mg PO Q8H [facility] Last Admin: 03/30/22 01:29 Dose: 40 mg Documented By: CHI Modafinil (Modafinil 100 Mg Tablet) 200 mg PO DAILY [facility] Last Admin: 03/30/22 08:30 Dose: 200 mg Documented By: YENNY Pantoprazole Sodium (Pantoprazole Sodium 40 Mg/10 Ml Vial) 40 mg IVPUSH DAILY [facility] Last Admin: 03/30/22 08:30 Dose: 40 mg Documented By: YENNY Pharmacy Consult (Consult Rx Perform Med Rec) 1 each MISCELLANE ONCE PRN PRN Reason: Consult order Polyethylene Glycol (Polyethylene Glycol 3350 17 Gm Powd.Pack) 17 gm PO DAILY PRN PRN Reason: Constipation Sertraline HCl (Sertraline Hcl 100 Mg Tablet) 200 mg PO DAILY [facility] Last Admin: 03/30/22 08:30 Dose: 200 mg Documented By: YENNY Vancomycin HCl (Vancomycin Hcl 125 Mg Capsule) 125 mg PO Q6H [facility] Last Admin: 03/30/22 08:30 Dose: 125 mg Documented By: YENNY Labs CBC & Chem 7: 03/28/22 05:54 03/30/22 06:02 Labs: Laboratory Results - last 24 hr 03/29/22 03/29/22 03/29/22 11:40 16:28 20:44 Anion Gap Estim Creat Clear Calc Estimated GFR POC Glucose 298 H 306 H 308 H Random Glucose Calcium 03/30/22 03/30/22 06:02 07:20 Anion Gap 13 Estim Creat Clear Calc 90.8 Estimated GFR 53 POC Glucose 196 H Random Glucose 206 H Calcium 8.7 Microbiology Microbiology Results: Microbiology 03/27/22 18:40 Blood Culture - Preliminary Blood - Venous No growth after 48 hours. 03/27/22 18:03 Blood Culture - Preliminary Blood - Venous No growth after 48 hours. Assessment and Plan (1) Diabetic ulcer of foot associated with diabetes mellitus due to underlying condition, with fat layer exposed: Status: Acute (2) Respiratory failure with hypoxia and hypercapnia: Status: Acute (3) Cellulitis of leg, right: Status: Acute Plan 60F presented with hypoxia and ams,? was admitted to the ICU for acute BiPAP.? Patient was diuresed with IV Lasix infusion, was treated for cellulitis of the right anterior leg. Acute hypoxic hypercapnic respiratory failure Secondary to ohs, SMILEY, home medications Patient noncompliance with her CPAP Restart low-dose gabapentin Wean oxygen down as tolerated Acute on chronic diastolic CHF Continue IV Lasix drip At the dose of metolazone Monitor intake and output Will need Diamox at time of discharge wean down oxygen as tolerated Acute kidney injury Responded well to diuretics, likely cardiorenal Monitor urine output RLE cellulitis DC ceftriaxone, continue cefazolin continue vancomycin p.o. for history of C diff ?Right heel diabetic ulcer Evaluated by wound care For bed side debridement by surgery today Hypertension continue amlodipine, carvedilol, enalapril history of pulmonary embolism ?continue Eliquis ?morbid obesity ?weight loss ?recent left total knee arthroplasty revision ?does not appear infected, outpatient follow-up for staple removal ?physical debility ?continue PT ?diabetes ?insulin, monitor poin DVT PPX Eliquis The patient will need overnight hospital stay to continue weaning down her oxygen level while on IV Lasix drip to prevent decompensation into respiratory failure. Quality Stroke Does the patient have a stroke diagnosis?: No VTE Prior VTE?: Yes VTE Risk Level:: Medical - moderate - high VTE Device Contraindication: N/A - Device Ordered VTE Drug Contraindication: N/A - Med Ordered
[2022-03-30 11:59] LABS: Glucose, Whole Blood 212 mg/dL (60-115)
[2022-03-30] MEDS: metOLazone 5 MG TABLET PO (12:17)
[2022-03-30] MEDS: Gabapentin 100 MG CAPSULE 200 MG PO ×2 (12:18→21:14)
[2022-03-30 14:31] LABS: CRP High Sensitivity >10.0 mg/L
[2022-03-30 16:21] LABS: Glucose, Whole Blood 201 mg/dL (60-115)
--- NOTE | 2022-03-30 16:46 | PC.NURSE ---
Pt alert and oriented x3. pt continues on Lasix 10mg/hr running at 5ml/hr. Pt has a small open area to the sacral area as well a healed pressure ulcer scars. Some redness noted to bilateral groin areas. Unstageable right heel pressure ulcer noted. Surgical consult put in for debridement
[2022-03-30] MEDS: Lidocaine HCl 2 % Jelly 5 ML TUBE 1 APPL TOPICAL (17:32)
[2022-03-30 19:57] LABS: Glucose, Whole Blood 254 mg/dL (60-115)
[2022-03-30] MEDS: Furosemide 200 MG in 0.9 % Sodium Chloride 80 ML IVCONT (21:12)
[2022-03-30] MEDS: Atorvastatin Calcium 80 MG TABLET PO (21:14)
[2022-03-30] MEDS: buPROPion HCl XL 150 MG TAB.ER.24H 450 MG PO (21:14)
[2022-03-31] VITALS (7 sets, daily range): BP systolic 90–115; BP diastolic 54–65; PULSE 63–79; RESP 16–20; TEMP 35.6–38.1; O2SAT 88–94; BMI 59.5
--- NOTE | 2022-03-31 00:59 | PM.PNGS ---
Subjective Subjective Date of Service: 03/31/22 Interval history: feels ok Physical Exam Vital Signs: Vital Signs: Last Vital Signs Temp 100.6 F H 03/31/22 00:00 Pulse 70 03/31/22 00:00 Resp 16 03/31/22 00:00 BP 101/55 L 03/31/22 00:00 Pulse Ox 92 03/31/22 00:00 O2 Del Method 03/31/22 00:00 O2 Flow Rate 4 03/31/22 00:00 FiO2 32 03/28/22 16:06 Oxygen Flow Rate 100 03/27/22 17:29 BMI result Body Mass Index 61.3 Skin: Other: right lateral heel with ulcerative wound 3x3 cm down to tendinous material and fat and muscle moderate necrotic tissue Objective Data Active Medications Acetazolamide (Acetazolamide 250 Mg Tablet) 500 mg PO BID [facility] Last Admin: 03/30/22 21:14 Dose: 500 mg Documented By: CRICKET Amlodipine Besylate (Amlodipine Besylate 5 Mg Tablet) 5 mg PO DAILY [facility]; Protocol Last Admin: 03/30/22 08:30 Dose: 5 mg Documented By: YENNY Apixaban (Apixaban 5 Mg Tablet) 5 mg PO BID [facility] Last Admin: 03/30/22 21:15 Dose: 5 mg Documented By: CRICKET Aspirin (Aspirin 81 Mg Tab.Chew) 81 mg PO DAILY [facility] Last Admin: 03/30/22 08:30 Dose: 81 mg Documented By: YENYN Atorvastatin Calcium (Atorvastatin Calcium 80 Mg Tablet) 80 mg PO BEDTIME [facility] Last Admin: 03/30/22 21:14 Dose: 80 mg Documented By: CRICKET Bupropion HCl (Bupropion Hcl Xl 150 Mg Tab.Er.24h) 450 mg PO BEDTIME [facility] Last Admin: 03/30/22 21:14 Dose: 450 mg Documented By: CRICKET Carvedilol (Carvedilol 12.5 Mg Tablet) 12.5 mg PO BID [facility]; Protocol Last Admin: 03/30/22 21:14 Dose: 12.5 mg Documented By: CRICKET Enalapril Maleate (Enalapril Maleate 10 Mg Tablet) 40 mg PO DAILY [facility]; Protocol Last Admin: 03/30/22 08:28 Dose: 40 mg Documented By: YENNY Ferrous Sulfate (Ferrous Sulfate 324 Mg Tablet.Dr) 324 mg PO DAILY [facility] Last Admin: 03/30/22 08:30 Dose: 324 mg Documented By: YENNY Fluticasone/Vilanterol (Fluticasone/Vilanterol 100/25 Blst.W.Dev) 1 puff INHALE RDAILY [facility] Last Admin: 03/30/22 07:20 Dose: 1 puff Documented By: ROYCE Gabapentin (Gabapentin 100 Mg Capsule) 200 mg PO BID [facility] Last Admin: 03/30/22 21:14 Dose: 200 mg Documented By: CRICKET Glucose (Glucose Gel 15 Gm Gel..Gram.) 15 gm PO Q15M PRN; Protocol PRN Reason: per Hypoglycemia Standing Ord. Furosemide 200 mg/ Sodium (Chloride) 100 mls @ 5 mls/hr IVCONT .Q20H [facility] Last Admin: 03/30/22 21:12 Dose: 10 mg/hr, 5 mls/hr Documented By: CRICKET Cefazolin Sodium/Dextrose (Ancef) 2 gm in 50 mls @ 100 mls/hr IV Q8H [facility] Last Infusion: 03/30/22 22:19 Dose: 0 mls/hr Documented By: CRICKET Insulin Glargine (Insulin Glargine,Hum.Rec.Anlog 100 Unit/Ml 10 Ml Vial) 40 unit SUBCUT DAILY [facility] Last Admin: 03/30/22 08:29 Dose: 40 unit Documented By: YENNY Insulin Human Lispro (Insulin Lispro 100 Unit/Ml 3 Ml Vial) 0 unit SUBCUT QIDACHS [facility]; Protocol Last Admin: 03/30/22 21:22 Dose: 6 unit Documented By: CRICKET Isosorbide Mononitrate (Isosorbide Mononitrate 60 Mg Tab.Er.24h) 60 mg PO DAILY [facility]; Protocol Last Admin: 03/30/22 08:29 Dose: 60 mg Documented By: YENNY Megestrol Acetate (Megestrol Acetate 400 Mg/10 Ml Oral.Susp) 40 mg PO Q8H [facility] Last Admin: 03/30/22 16:57 Dose: 40 mg Documented By: FANTA Modafinil (Modafinil 100 Mg Tablet) 200 mg PO DAILY [facility] Last Admin: 03/30/22 08:30 Dose: 200 mg Documented By: YENNY Pantoprazole Sodium (Pantoprazole Sodium 40 Mg/10 Ml Vial) 40 mg IVPUSH DAILY [facility] Last Admin: 03/30/22 08:30 Dose: 40 mg Documented By: YENNY Pharmacy Consult (Consult Rx Perform Med Rec) 1 each MISCELLANE ONCE PRN PRN Reason: Consult order Polyethylene Glycol (Polyethylene Glycol 3350 17 Gm Powd.Pack) 17 gm PO DAILY PRN PRN Reason: Constipation Sertraline HCl (Sertraline Hcl 100 Mg Tablet) 200 mg PO DAILY [facility] Last Admin: 03/30/22 08:30 Dose: 200 mg Documented By: YENNY Vancomycin HCl (Vancomycin Hcl 125 Mg Capsule) 125 mg PO Q6H [facility] Last Admin: 03/30/22 21:14 Dose: 125 mg Documented By: CRICKET Labs CBC & Chem 7: 03/28/22 05:54 03/30/22 06:02 Labs: Laboratory Results - last 24 hr 03/28/22 03/30/22 03/30/22 05:54 06:02 07:20 Anion Gap 13 Estim Creat Clear Calc 90.8 Estimated GFR 53 POC Glucose 196 H Random Glucose 206 H Calcium 8.7 C-React Prot High Sens >10.0 H 03/30/22 03/30/22 03/30/22 11:49 16:17 19:54 Anion Gap Estim Creat Clear Calc Estimated GFR POC Glucose 212 H 201 H 254 H Random Glucose Calcium C-React Prot High Sens Procedures Date of Service Date of Service: 03/30/22 Progress Note: A&P Assessment and plan (1) Diabetic ulcer of foot associated with diabetes mellitus due to underlying condition, with fat layer exposed: Status: Acute Assessment and Plan: moderate size ulcerative wound prob a combination of pressure and now nonhealing due to diabetes- plan to cont with debridement and use santyl for the next few days. medical management as per hospitalists for other issues when dc should f.u in wound care clinic Time Spent With Patient Time: Total time spent is greater than 50% in coordination of care (as documented) at patient's floor/unit and/or counseling patient: Quality Stroke Does the patient have a stroke diagnosis?: No VTE Prior VTE?: Yes VTE Risk Level:: Medical - moderate - high VTE Device Contraindication: N/A - Device Ordered VTE Drug Contraindication: N/A - Med Ordered
[2022-03-31] MEDS: Megestrol Acetate 400 MG/10 ML ORAL.SUSP 40 MG PO ×3 (02:36→18:49)
[2022-03-31] MEDS: vancomycin HCL 125 MG CAPSULE PO ×4 (02:36→22:29)
[2022-03-31] MEDS: ceFAZolin Sodium/Dextrose,Iso 2 GM/50 ML PIGGYBACK IV ×3 (05:20→22:29)
[2022-03-31 07:39] LABS: Glucose, Whole Blood 171 mg/dL (60-115)
[2022-03-31] MEDS: Fluticasone/Vilanterol 100/25 BLST.W.DEV 1 PUFF INHALE (08:39)
[2022-03-31] MEDS: acetaZOLAMIDE 250 MG TABLET 500 MG PO ×2 (08:41→22:29)
[2022-03-31] MEDS: modafiniL 100 MG TABLET 200 MG PO (08:41)
[2022-03-31] MEDS: carvediloL 12.5 MG TABLET PO ×2 (08:41→22:29)
[2022-03-31] MEDS: Aspirin 81 MG TAB.CHEW PO (08:41)
[2022-03-31] MEDS: Enalapril Maleate 10 MG TABLET 40 MG PO (08:41)
[2022-03-31] MEDS: Gabapentin 100 MG CAPSULE 200 MG PO ×2 (08:41→22:28)
[2022-03-31] MEDS: amLODIPine Besylate 5 MG TABLET PO (08:42)
[2022-03-31] MEDS: Isosorbide Mononitrate 60 MG TAB.ER.24H PO (08:42)
[2022-03-31] MEDS: Sertraline HCL 100 MG TABLET 200 MG PO (08:42)
[2022-03-31] MEDS: Apixaban 5 MG TABLET PO ×2 (08:42→22:29)
[2022-03-31] MEDS: Ferrous Sulfate 324 MG TABLET.DR PO (08:43)
[2022-03-31] MEDS: Insulin Lispro 100 UNIT/ML 3 ML VIAL SUBCUT ×4 (08:43→22:27)
[2022-03-31] MEDS: Pantoprazole Sodium 40 MG/10 ML VIAL IVPUSH (08:44)
[2022-03-31] MEDS: Insulin Glargine,Hum.rec.anlog 100 UNIT/ML 10 ML VIAL 40 UNIT SUBCUT (08:44)
[2022-03-31] MEDS: Collagenase Clostridium Hist. 30 GM TUBE 1 APPL TOPICAL (10:35)
--- NOTE | 2022-03-31 11:03 | P.PNIM_ITS ---
Subjective Subjective Date of Service: 03/31/22 Physical Exam Vital Signs: Vital Signs: Last Vital Signs Temp 96.0 F L 03/31/22 08:00 Pulse 72 03/31/22 08:40 Resp 18 03/31/22 08:40 BP 115/65 03/31/22 08:00 Pulse Ox 94 03/31/22 08:00 O2 Del Method 03/31/22 08:00 O2 Flow Rate 4 03/31/22 00:00 FiO2 35 03/31/22 04:00 Oxygen Flow Rate 100 03/27/22 17:29 BMI result Body Mass Index 59.5 Objective Data Active Medications Acetazolamide (Acetazolamide 250 Mg Tablet) 500 mg PO BID [facility] Last Admin: 03/31/22 08:41 Dose: 500 mg Documented By: YENNY Amlodipine Besylate (Amlodipine Besylate 5 Mg Tablet) 5 mg PO DAILY [facility]; Protocol Last Admin: 03/31/22 08:42 Dose: 5 mg Documented By: YENNY Apixaban (Apixaban 5 Mg Tablet) 5 mg PO BID [facility] Last Admin: 03/31/22 08:42 Dose: 5 mg Documented By: YENNY Aspirin (Aspirin 81 Mg Tab.Chew) 81 mg PO DAILY [facility] Last Admin: 03/31/22 08:41 Dose: 81 mg Documented By: YENNY Atorvastatin Calcium (Atorvastatin Calcium 80 Mg Tablet) 80 mg PO BEDTIME [facility] Last Admin: 03/30/22 21:14 Dose: 80 mg Documented By: CRICKET Bupropion HCl (Bupropion Hcl Xl 150 Mg Tab.Er.24h) 450 mg PO BEDTIME [facility] Last Admin: 03/30/22 21:14 Dose: 450 mg Documented By: CRICKET Carvedilol (Carvedilol 12.5 Mg Tablet) 12.5 mg PO BID [facility]; Protocol Last Admin: 03/31/22 08:41 Dose: 12.5 mg Documented By: YENNY Collagenase (Collagenase Clostridium Hist. 30 Gm Tube) 1 appl TOPICAL DAILY [facility] ; Protocol Last Admin: 03/31/22 10:35 Dose: 1 appl Documented By: YENNY Enalapril Maleate (Enalapril Maleate 10 Mg Tablet) 40 mg PO DAILY [facility]; Protocol Last Admin: 03/31/22 08:41 Dose: 40 mg Documented By: YENNY Ferrous Sulfate (Ferrous Sulfate 324 Mg Tablet.Dr) 324 mg PO DAILY [facility] Last Admin: 03/31/22 08:43 Dose: 324 mg Documented By: YENNY Fluticasone/Vilanterol (Fluticasone/Vilanterol 100/25 Blst.W.Dev) 1 puff INHALE RDAILY [facility] Last Admin: 03/31/22 08:39 Dose: 1 puff Documented By: BLASCMadhuri Gabapentin (Gabapentin 100 Mg Capsule) 200 mg PO BID [facility] Last Admin: 03/31/22 08:41 Dose: 200 mg Documented By: YENNY Glucose (Glucose Gel 15 Gm Gel..Gram.) 15 gm PO Q15M PRN; Protocol PRN Reason: per Hypoglycemia Standing Ord. Furosemide 200 mg/ Sodium (Chloride) 100 mls @ 5 mls/hr IVCONT .Q20H [facility] Last Admin: 03/31/22 01:03 Dose: Not Given Documented By: CRICKET Non-Admin Reason: IV Running Cefazolin Sodium/Dextrose (Ancef) 2 gm in 50 mls @ 100 mls/hr IV Q8H [facility] Last Infusion: 03/31/22 06:47 Dose: 0 mls/hr Documented By: ROSE MARIE Insulin Glargine (Insulin Glargine,Hum.Rec.Anlog 100 Unit/Ml 10 Ml Vial) 40 unit SUBCUT DAILY [facility] Last Admin: 03/31/22 08:44 Dose: 40 unit Documented By: YENNY Insulin Human Lispro (Insulin Lispro 100 Unit/Ml 3 Ml Vial) 0 unit SUBCUT QIDACHS [facility]; Protocol Last Admin: 03/31/22 08:43 Dose: 2 unit Documented By: YENNY Isosorbide Mononitrate (Isosorbide Mononitrate 60 Mg Tab.Er.24h) 60 mg PO DAILY [facility]; Protocol Last Admin: 03/31/22 08:42 Dose: 60 mg Documented By: YENNY Megestrol Acetate (Megestrol Acetate 400 Mg/10 Ml Oral.Susp) 40 mg PO Q8H [facility] Last Admin: 03/31/22 08:40 Dose: 40 mg Documented By: YENNY Modafinil (Modafinil 100 Mg Tablet) 200 mg PO DAILY [facility] Last Admin: 03/31/22 08:41 Dose: 200 mg Documented By: YENNY Pharmacy Consult (Consult Rx Perform Med Rec) 1 each MISCELLANE ONCE PRN PRN Reason: Consult order Polyethylene Glycol (Polyethylene Glycol 3350 17 Gm Powd.Pack) 17 gm PO DAILY PRN PRN Reason: Constipation Sertraline HCl (Sertraline Hcl 100 Mg Tablet) 200 mg PO DAILY [facility] Last Admin: 03/31/22 08:42 Dose: 200 mg Documented By: YENNY Vancomycin HCl (Vancomycin Hcl 125 Mg Capsule) 125 mg PO Q6H [facility] Last Admin: 03/31/22 08:42 Dose: 125 mg Documented By: YENNY Labs CBC & Chem 7: 03/28/22 05:54 03/30/22 06:02 Labs: Laboratory Results - last 24 hr 03/28/22 03/30/22 03/30/22 05:54 11:49 16:17 POC Glucose 212 H 201 H C-React Prot High Sens >10.0 H 03/30/22 03/31/22 19:54 07:31 POC Glucose 254 H 171 H C-React Prot High Sens Assessment and Plan (1) Diabetic ulcer of foot associated with diabetes mellitus due to underlying condition, with fat layer exposed: Status: Acute (2) Respiratory failure with hypoxia and hypercapnia: Status: Acute (3) Cellulitis of leg, right: Status: Acute Plan 60F presented with hypoxia and ams,? was admitted to the ICU for acute BiPAP.? Patient was diuresed with IV Lasix infusion, was treated for cellulitis of the right anterior leg. Acute hypoxic hypercapnic respiratory failure Secondary to ohs, SMILEY, home medications Patient noncompliance with her CPAP Wean oxygen down as tolerated Uses O2 at night Acute on chronic diastolic CHF Continue IV Lasix drip, negative 6.6 L At the dose of metolazone Monitor intake and output Will need Diamox at time of discharge wean down oxygen as tolerated\ Monitor BMP Acute kidney injury Responded well to diuretics, likely cardiorenal Monitor urine output RLE cellulitis Continue cefazolin Continue vancomycin p.o. for history of C diff Right heel diabetic ulcer Evaluated by wound care Debrided by surgery 03/30 Hypertension continue amlodipine, carvedilol, enalapril history of pulmonary embolism ?continue Eliquis ?morbid obesity ?weight loss advised, aware of options ?recent left total knee arthroplasty revision ?does not appear infected, outpatient follow-up for staple removal ?physical debility ?continue PT ?diabetes ?insulin, monitor poin DVT PPX Eliquis Need for inpatient: CHF requiring IV diuretics and monitoring of electrolytes Quality Stroke Does the patient have a stroke diagnosis?: No VTE Prior VTE?: Yes VTE Risk Level:: Medical - moderate - high VTE Device Contraindication: N/A - Device Ordered VTE Drug Contraindication: N/A - Med Ordered
[2022-03-31 11:53] LABS: Anion Gap 19 (12-20); Blood Urea Nitrogen 46 mg/dL (9-16); Calcium 8.3 mg/dL (8.4-10.2); Carbon Dioxide 27 mmol/L (22-29); Chloride 94 mmol/L (96-108); Creatinine Clr Calc Pharmacy 52.4; Estimated Glomerular Filt Rate 29; Potassium 3.3 mmol/L (3.3-5.1); Sodium 137 mmol/L (135-145)
[2022-03-31 12:00] LABS: B Type Natriuretic Peptide < 10 pg/mL (<100)
[2022-03-31 12:14] LABS: Glucose Random 248 mg/dL (60-115)
[2022-03-31 12:20] LABS: Glucose, Whole Blood 244 mg/dL (60-115)
[2022-03-31 16:23] LABS: Glucose, Whole Blood 282 mg/dL (60-115)
[2022-03-31] MEDS: Furosemide 200 MG in 0.9 % Sodium Chloride 80 ML IVCONT (18:49)
[2022-03-31] MEDS: Atorvastatin Calcium 80 MG TABLET PO (22:28)
[2022-03-31] MEDS: buPROPion HCl XL 150 MG TAB.ER.24H 450 MG PO (22:29)
[2022-03-31] MEDS: oxyCODONE HCl Immed Release 5 MG TABLET PO (22:46)
--- NOTE | 2022-03-31 23:00 | MHC.PIE ---
Patient c/o lower back pain and right leg pain (S/P dibridement today). No PRN pain meds ordered. Dr Knowles made aware - ordered 5mg oxycodone, given @ 4196. Report given to oncoming RN Viridiana about administration.
[2022-04-01] VITALS (11 sets, daily range): BP systolic 94–111; BP diastolic 49–69; PULSE 70–82; RESP 16–23; TEMP 35.8–37.1; O2SAT 91–95; BMI 58.2
[2022-04-01] MEDS: vancomycin HCL 125 MG CAPSULE PO ×4 (02:19→20:58)
[2022-04-01] MEDS: Megestrol Acetate 400 MG/10 ML ORAL.SUSP 40 MG PO ×3 (02:19→17:43)
[2022-04-01 05:42] LABS: Glucose, Whole Blood 254 mg/dL (60-115)
[2022-04-01] MEDS: ceFAZolin Sodium/Dextrose,Iso 2 GM/50 ML PIGGYBACK IV ×3 (06:12→21:00)
[2022-04-01 07:37] LABS: Glucose, Whole Blood 182 mg/dL (60-115)
[2022-04-01] MEDS: Fluticasone/Vilanterol 100/25 BLST.W.DEV 1 PUFF INHALE (08:24)
[2022-04-01] MEDS: Isosorbide Mononitrate 60 MG TAB.ER.24H PO (08:49)
[2022-04-01] MEDS: modafiniL 100 MG TABLET 200 MG PO (08:49)
[2022-04-01] MEDS: acetaZOLAMIDE 250 MG TABLET 500 MG PO (08:49)
[2022-04-01] MEDS: Enalapril Maleate 10 MG TABLET 40 MG PO (08:49)
[2022-04-01] MEDS: Apixaban 5 MG TABLET PO ×2 (08:49→20:58)
[2022-04-01] MEDS: Gabapentin 100 MG CAPSULE 200 MG PO ×2 (08:49→20:58)
[2022-04-01] MEDS: Aspirin 81 MG TAB.CHEW PO (08:49)
[2022-04-01] MEDS: Sertraline HCL 100 MG TABLET 200 MG PO (08:49)
[2022-04-01] MEDS: Ferrous Sulfate 324 MG TABLET.DR PO (08:49)
[2022-04-01] MEDS: Insulin Lispro 100 UNIT/ML 3 ML VIAL SUBCUT ×4 (08:50→21:13)
[2022-04-01] MEDS: Insulin Glargine,Hum.rec.anlog 100 UNIT/ML 10 ML VIAL 40 UNIT SUBCUT (08:50)
[2022-04-01] MEDS: Collagenase Clostridium Hist. 30 GM TUBE 1 APPL TOPICAL (08:51)
--- NOTE | 2022-04-01 10:28 | HO.PM.IMPN ---
Subjective Subjective Date of Service: 04/01/22 Interval History: f/u on respiraotry failure, bernie, chf inteval isotry : feels the same,BP on lower side this morning and worsening renal function Review of Systems no fever no sob no dizzines Physical Exam Vital Signs: Vital Signs: Last Vital Signs Temp 96.5 F L 04/01/22 07:40 Pulse 74 04/01/22 08:28 Resp 20 04/01/22 08:28 BP 97/52 L 04/01/22 07:40 Pulse Ox 93 04/01/22 07:40 O2 Del Method 04/01/22 07:40 O2 Flow Rate 5 04/01/22 00:00 FiO2 35 04/01/22 04:00 Oxygen Flow Rate 100 03/27/22 17:29 BMI result Body Mass Index 58.2 Const: Other: Constitutional : Alert,? not in distress Neck : Normal inspection, Supple Cardiovascular : RRR, S1 S2,? +1 lower extremity edema Respiratory :? fair bilateral air entry, ? no fine crackles, wheezes or rhonchi Gastrointestinal:? soft, lax, Normal bowel sounds, Non tender Skin : Warm, Dry,? improved erythema in Rt LE, right heel wound full-thickness of 4 x 3 cm Neurological : Alert & oriented x3, No focal deficit Objective Data Active Medications Acetazolamide (Acetazolamide 250 Mg Tablet) 500 mg PO BID [facility] Last Admin: 04/01/22 08:49 Dose: 500 mg Documented By: DONALD Amlodipine Besylate (Amlodipine Besylate 5 Mg Tablet) 5 mg PO DAILY [facility]; Protocol Last Admin: 04/01/22 08:54 Dose: Not Given Documented By: DONALD Non-Admin Reason: sbp Apixaban (Apixaban 5 Mg Tablet) 5 mg PO BID [facility] Last Admin: 04/01/22 08:49 Dose: 5 mg Documented By: DONALD Aspirin (Aspirin 81 Mg Tab.Chew) 81 mg PO DAILY [facility] Last Admin: 04/01/22 08:49 Dose: 81 mg Documented By: DONALD Atorvastatin Calcium (Atorvastatin Calcium 80 Mg Tablet) 80 mg PO BEDTIME [facility] Last Admin: 03/31/22 22:28 Dose: 80 mg Documented By: JESUS Bupropion HCl (Bupropion Hcl Xl 150 Mg Tab.Er.24h) 450 mg PO BEDTIME [facility] Last Admin: 03/31/22 22:29 Dose: 450 mg Documented By: JESUS Carvedilol (Carvedilol 12.5 Mg Tablet) 12.5 mg PO BID [facility]; Protocol Last Admin: 04/01/22 08:53 Dose: Not Given Documented By: DONALD Non-Admin Reason: vitals Collagenase (Collagenase Clostridium Hist. 30 Gm Tube) 1 appl TOPICAL DAILY [facility]; Protocol Last Admin: 04/01/22 08:51 Dose: 1 appl Documented By: DONALD Enalapril Maleate (Enalapril Maleate 10 Mg Tablet) 40 mg PO DAILY [facility]; Protocol Last Admin: 04/01/22 08:49 Dose: 40 mg Documented By: DONALD Ferrous Sulfate (Ferrous Sulfate 324 Mg Tablet.Dr) 324 mg PO DAILY [facility] Last Admin: 04/01/22 08:49 Dose: 324 mg Documented By: DONALD Fluticasone/Vilanterol (Fluticasone/Vilanterol 100/25 Blst.W.Dev) 1 puff INHALE RDAILY [facility] Last Admin: 04/01/22 08:24 Dose: 1 puff Documented By: DEANNA Gabapentin (Gabapentin 100 Mg Capsule) 200 mg PO BID [facility] Last Admin: 04/01/22 08:49 Dose: 200 mg Documented By: DONALD Glucose (Glucose Gel 15 Gm Gel..Gram.) 15 gm PO Q15M PRN; Protocol PRN Reason: per Hypoglycemia Standing Ord. Cefazolin Sodium/Dextrose (Ancef) 2 gm in 50 mls @ 100 mls/hr IV Q8H [facility] Last Infusion: 04/01/22 06:55 Dose: 0 mls/hr Documented By: AMANDA Insulin Glargine (Insulin Glargine,Hum.Rec.Anlog 100 Unit/Ml 10 Ml Vial) 40 unit SUBCUT DAILY [facility] Last Admin: 04/01/22 08:50 Dose: 40 unit Documented By: DONALD Insulin Human Lispro (Insulin Lispro 100 Unit/Ml 3 Ml Vial) 0 unit SUBCUT QIDACHS [facility]; Protocol Last Admin: 04/01/22 08:50 Dose: 2 unit Documented By: HO.N-SOFFA Isosorbide Mononitrate (Isosorbide Mononitrate 60 Mg Tab.Er.24h) 60 mg PO DAILY [facility]; Protocol Last Admin: 04/01/22 08:49 Dose: 60 mg Documented By: SCOT-EDWIN Megestrol Acetate (Megestrol Acetate 400 Mg/10 Ml Oral.Susp) 40 mg PO Q8H [facility] Last Admin: 04/01/22 10:25 Dose: 40 mg Documented By: SCOT-EDWIN Modafinil (Modafinil 100 Mg Tablet) 200 mg PO DAILY [facility] Last Admin: 04/01/22 08:49 Dose: 200 mg Documented By: SCOT-EDWIN Oxycodone HCl (Oxycodone Hcl Immed Release 5 Mg Tablet) 5 mg PO Q6H PRN PRN Reason: Pain, Severe (Pain Scale 7-10) Last Admin: 03/31/22 22:46 Dose: 5 mg Documented By: JESUS Pharmacy Consult (Consult Rx Perform Med Rec) 1 each MISCELLANE ONCE PRN PRN Reason: Consult order Polyethylene Glycol (Polyethylene Glycol 3350 17 Gm Powd.Pack) 17 gm PO DAILY PRN PRN Reason: Constipation Sertraline HCl (Sertraline Hcl 100 Mg Tablet) 200 mg PO DAILY [facility] Last Admin: 04/01/22 08:49 Dose: 200 mg Documented By: DONALD Sodium Hypochlorite (Sodium Hypochlorite 0.25% 473 Ml Solution) 1 appl TOPICAL DAILY [facility] Last Admin: 04/01/22 08:51 Dose: 1 appl Documented By: DONALD Vancomycin HCl (Vancomycin Hcl 125 Mg Capsule) 125 mg PO Q6H [facility] Last Admin: 04/01/22 08:49 Dose: 125 mg Documented By: DONALD Labs CBC & Chem 7: 03/28/22 05:54 03/31/22 11:23 Labs: Laboratory Results - last 24 hr 03/31/22 03/31/22 03/31/22 11:23 11:23 12:09 Anion Gap 19 Estim Creat Clear Calc 52.4 Estimated GFR 29 POC Glucose 244 H Random Glucose 248 H Fasting Glucose Cancelled Calcium 8.3 L B-Natriuretic Peptide < 10 03/31/22 03/31/22 04/01/22 15:33 22:25 07:32 Anion Gap Estim Creat Clear Calc Estimated GFR POC Glucose 282 H 254 H 182 H Random Glucose Fasting Glucose Calcium B-Natriuretic Peptide Assessment and Plan (1) Diabetic ulcer of foot associated with diabetes mellitus due to underlying condition, with fat layer exposed: Status: Acute (2) Respiratory failure with hypoxia and hypercapnia: Status: Acute (3) Cellulitis of leg, right: Status: Acute Plan 60F presented with hypoxia and ams,? was admitted to the ICU for acute BiPAP.? Patient was diuresed with IV Lasix infusion, was treated for cellulitis of the right anterior leg. Acute hypoxic hypercapnic respiratory failure Secondary to ohs, SMILEY, home medications Patient noncompliance with her CPAP Wean oxygen down as tolerated Uses O2 at night Acute on chronic diastolic CHF , negative 6.6 L and worsening renal failure, BNP < 10 DC Lasix drip, DC Diamox Monitor intake and output wean down oxygen as tolerated\ Monitor BMP Acute kidney injury improved and now worse again, probably from overdiureses and low BP now Hold IV Lasix, hold Enalapril Get nephrology ivolved Hypotension this morning--due to Lasix, and BP meds, hold all BP meds and if not improving IVF RLE cellulitis Continue cefazolin, oral Keflex at discharge Continue vancomycin p.o. for history of C diff Right heel diabetic ulcer Evaluated by wound care Debrided by surgery 03/30 Hypertension--BP low this morning, so hold meds continue amlodipine, carvedilol, enalapril history of pulmonary embolism ?continue Eliquis ?morbid obesity ?weight loss advised, aware of options ?recent left total knee arthroplasty revision ?does not appear infected, outpatient follow-up for staple removal ?physical debility ?continue PT ?diabetes ?insulin, monitor bs DVT PPX Eliquis Need for inpatient: CHF requiring IV diuretics and monitoring of electrolytes, now BERNIE and needs meds adjustment, not ready for discharge today Quality Stroke Does the patient have a stroke diagnosis?: No VTE Prior VTE?: Yes VTE Risk Level:: Medical - moderate - high VTE Device Contraindication: N/A - Device Ordered VTE Drug Contraindication: N/A - Med Ordered
[2022-04-01 11:05] LABS: Glucose, Whole Blood 164 mg/dL (60-115)
--- NOTE | 2022-04-01 12:19 | MHC.CLN ---
F/U DIET RX: 1800DM-APPROPRIATE PT RECEIVING ENSURE MAX BID TO INCREASE PO PROTEIN FOR WOUND HEALING SUPP PROVIDES 300KCALS, 60G PROTEIN MONITOR PO INTAKE CLOSELY
--- NOTE | 2022-04-01 15:45 | MHC.CM.PN ---
per rounds pt on a lasix dripo and is not dc ready
[2022-04-01 17:38] LABS: Glucose, Whole Blood 312 mg/dL (60-115)
--- NOTE | 2022-04-01 18:20 | PC.NURSE ---
poc maintained, insulin administered as ordered. safety and fall precautions maintained. call chun within reach.
[2022-04-01] MEDS: buPROPion HCl XL 150 MG TAB.ER.24H 450 MG PO (20:57)
[2022-04-01] MEDS: Atorvastatin Calcium 80 MG TABLET PO (20:58)
[2022-04-01] MEDS: carvediloL 12.5 MG TABLET PO (20:58)
[2022-04-01 21:13] LABS: Glucose, Whole Blood 283 mg/dL (60-115)
[2022-04-01] MEDS: oxyCODONE HCl Immed Release 5 MG TABLET PO (21:14)
[2022-04-02] VITALS (12 sets, daily range): BP systolic 77–122; BP diastolic 43–64; PULSE 63–93; RESP 14–20; TEMP 36.4–37.4; O2SAT 92–97; BMI 57.8
--- NOTE | 2022-04-02 00:11 | PC.NURSE ---
Pt c/o feeling pressure to urinate. Pt states she had this pressure prior to admission and prior to f/c placement. F/C is in place and draining to gravity a dark tammie with sediment/small blood clots. Pt does leak around the catheter and needs to be changed frequently. F/C was adjusted and assessed. Will continue to monitor.
[2022-04-02] MEDS: Megestrol Acetate 400 MG/10 ML ORAL.SUSP 40 MG PO ×3 (02:02→18:14)
[2022-04-02] MEDS: vancomycin HCL 125 MG CAPSULE PO ×4 (02:02→20:31)
[2022-04-02] MEDS: ceFAZolin Sodium/Dextrose,Iso 2 GM/50 ML PIGGYBACK IV ×3 (05:09→22:04)
[2022-04-02 07:43] LABS: Glucose, Whole Blood 200 mg/dL (60-115)
[2022-04-02] MEDS: Insulin Lispro 100 UNIT/ML 3 ML VIAL SUBCUT ×4 (08:40→21:03)
[2022-04-02] MEDS: Insulin Glargine,Hum.rec.anlog 100 UNIT/ML 10 ML VIAL 40 UNIT SUBCUT (08:40)
[2022-04-02] MEDS: Fluticasone/Vilanterol 100/25 BLST.W.DEV 1 PUFF INHALE (08:41)
[2022-04-02] MEDS: Apixaban 5 MG TABLET PO ×2 (08:44→20:31)
[2022-04-02] MEDS: Aspirin 81 MG TAB.CHEW PO (08:44)
[2022-04-02] MEDS: Isosorbide Mononitrate 60 MG TAB.ER.24H PO (08:44)
[2022-04-02] MEDS: modafiniL 100 MG TABLET 200 MG PO (08:44)
[2022-04-02] MEDS: Ferrous Sulfate 324 MG TABLET.DR PO (08:44)
[2022-04-02] MEDS: Enalapril Maleate 10 MG TABLET 40 MG PO (08:44)
[2022-04-02] MEDS: Gabapentin 100 MG CAPSULE 200 MG PO ×2 (08:45→20:31)
[2022-04-02] MEDS: Sertraline HCL 100 MG TABLET 200 MG PO (08:45)
[2022-04-02] MEDS: Collagenase Clostridium Hist. 30 GM TUBE 1 APPL TOPICAL (08:47)
--- NOTE | 2022-04-02 10:12 | HO.PM.IMPN ---
Subjective Subjective Date of Service: 04/03/22 Interval History: f/u on respiraotry failure, bernie, chf inteval isotry : feels weak, low BPs yesterday and overnight and given IVF Review of Systems no fever no sob no dizzines Physical Exam Vital Signs: Vital Signs: Last Vital Signs Temp 99.4 F 04/02/22 08:00 Pulse 64 04/02/22 08:45 Resp 14 04/02/22 08:45 BP 106/60 04/02/22 08:00 Pulse Ox 96 04/02/22 08:00 O2 Del Method 04/02/22 08:00 O2 Flow Rate 6 04/01/22 23:29 FiO2 35 04/01/22 04:00 Oxygen Flow Rate 100 03/27/22 17:29 BMI result Body Mass Index 57.8 Const: Other: Constitutional : Alert,? not in distress Neck : Normal inspection, Supple Cardiovascular : RRR, S1 S2,? +1 lower extremity edema Respiratory :? fair bilateral air entry, ? no fine crackles, wheezes or rhonchi Gastrointestinal:? soft, lax, Normal bowel sounds, Non tender Skin : Warm, Dry,? improved erythema in Rt LE, right heel wound full-thickness of 4 x 3 cm Neurological : Alert & oriented x3, No focal deficit Objective Data Active Medications Amlodipine Besylate (Amlodipine Besylate 5 Mg Tablet) 5 mg PO DAILY [facility]; Protocol Last Admin: 04/02/22 08:46 Dose: Not Given Documented By: SRINIVASA Non-Admin Reason: BP 106/63 low Apixaban (Apixaban 5 Mg Tablet) 5 mg PO BID [facility] Last Admin: 04/02/22 08:44 Dose: 5 mg Documented By: SRINIVASA Aspirin (Aspirin 81 Mg Tab.Chew) 81 mg PO DAILY [facility] Last Admin: 04/02/22 08:44 Dose: 81 mg Documented By: SRINIVASA Atorvastatin Calcium (Atorvastatin Calcium 80 Mg Tablet) 80 mg PO BEDTIME [facility] Last Admin: 04/01/22 20:58 Dose: 80 mg Documented By: RICK Bupropion HCl (Bupropion Hcl Xl 150 Mg Tab.Er.24h) 450 mg PO BEDTIME [facility] Last Admin: 04/01/22 20:57 Dose: 450 mg Documented By: RICK Carvedilol (Carvedilol 12.5 Mg Tablet) 12.5 mg PO BID [facility]; Protocol Last Admin: 04/02/22 08:46 Dose: Not Given Documented By: SRINIVASA Non-Admin Reason: BP 106/63 low Collagenase (Collagenase Clostridium Hist. 30 Gm Tube) 1 appl TOPICAL DAILY [facility]; Protocol Last Admin: 04/02/22 08:47 Dose: 1 appl Documented By: SRINIVASA Enalapril Maleate (Enalapril Maleate 10 Mg Tablet) 40 mg PO DAILY [facility]; Protocol Last Admin: 04/02/22 08:44 Dose: 40 mg Documented By: SRINIVASA Ferrous Sulfate (Ferrous Sulfate 324 Mg Tablet.Dr) 324 mg PO DAILY [facility] Last Admin: 04/02/22 08:44 Dose: 324 mg Documented By: SRINIVASA Fluticasone/Vilanterol (Fluticasone/Vilanterol 100/25 Blst.W.Dev) 1 puff INHALE RDAILY [facility] Last Admin: 04/02/22 08:41 Dose: 1 puff Documented By: DEANNA Gabapentin (Gabapentin 100 Mg Capsule) 200 mg PO BID [facility] Last Admin: 04/02/22 08:45 Dose: 200 mg Documented By: SRINIVASA Glucose (Glucose Gel 15 Gm Gel..Gram.) 15 gm PO Q15M PRN; Protocol PRN Reason: per Hypoglycemia Standing Ord. Cefazolin Sodium/Dextrose (Ancef) 2 gm in 50 mls @ 100 mls/hr IV Q8H [facility] Last Infusion: 04/02/22 05:39 Dose: 0 mls/hr Documented By: RICK Insulin Glargine (Insulin Glargine,Hum.Rec.Anlog 100 Unit/Ml 10 Ml Vial) 40 unit SUBCUT DAILY [facility] Last Admin: 04/02/22 08:40 Dose: 40 unit Documented By: SRINIVASA Insulin Human Lispro (Insulin Lispro 100 Unit/Ml 3 Ml Vial) 0 unit SUBCUT QIDACHS [facility]; Protocol Last Admin: 04/02/22 08:40 Dose: 4 unit Documented By: SRINIVASA Isosorbide Mononitrate (Isosorbide Mononitrate 60 Mg Tab.Er.24h) 60 mg PO DAILY [facility]; Protocol Last Admin: 04/02/22 08:44 Dose: 60 mg Documented By: SRINIVASA Megestrol Acetate (Megestrol Acetate 400 Mg/10 Ml Oral.Susp) 40 mg PO Q8H [facility] Last Admin: 04/02/22 08:54 Dose: 40 mg Documented By: SRINIVASA Modafinil (Modafinil 100 Mg Tablet) 200 mg PO DAILY [facility] Last Admin: 04/02/22 08:44 Dose: 200 mg Documented By: SRINIVASA Oxycodone HCl (Oxycodone Hcl Immed Release 5 Mg Tablet) 5 mg PO Q6H PRN PRN Reason: Pain, Severe (Pain Scale 7-10) Last Admin: 04/01/22 21:14 Dose: 5 mg Documented By: RICK Pharmacy Consult (Consult Rx Perform Med Rec) 1 each MISCELLANE ONCE PRN PRN Reason: Consult order Polyethylene Glycol (Polyethylene Glycol 3350 17 Gm Powd.Pack) 17 gm PO DAILY PRN PRN Reason: Constipation Sertraline HCl (Sertraline Hcl 100 Mg Tablet) 200 mg PO DAILY [facility] Last Admin: 04/02/22 08:45 Dose: 200 mg Documented By: SRINIVASA Sodium Hypochlorite (Sodium Hypochlorite 0.25% 473 Ml Solution) 1 appl TOPICAL DAILY [facility] Last Admin: 04/02/22 09:00 Dose: 1 appl Documented By: SRINIVASA Vancomycin HCl (Vancomycin Hcl 125 Mg Capsule) 125 mg PO Q6H [facility] Last Admin: 04/02/22 08:44 Dose: 125 mg Documented By: SRINIVASA Labs CBC & Chem 7: 03/28/22 05:54 04/02/22 10:56 Labs: Laboratory Results - last 24 hr 04/01/22 04/01/22 04/01/22 11:01 17:35 21:00 POC Glucose 164 H 312 H 283 H 04/02/22 07:29 POC Glucose 200 H Microbiology Microbiology Results: Microbiology 03/27/22 18:40 Blood Culture - Final Blood - Venous No growth after 5 days. 03/27/22 18:03 Blood Culture - Final Blood - Venous No growth after 5 days. Assessment and Plan (1) Diabetic ulcer of foot associated with diabetes mellitus due to underlying condition, with fat layer exposed: Status: Acute (2) Respiratory failure with hypoxia and hypercapnia: Status: Acute (3) Cellulitis of leg, right: Status: Acute Plan 60F presented with hypoxia and ams,? was admitted to the ICU for acute BiPAP.? Patient was diuresed with IV Lasix infusion, was treated for cellulitis of the right anterior leg. Acute hypoxic hypercapnic respiratory failure Secondary to ohs, SMILEY, home medications Patient not regular with her CPAP Wean oxygen down as tolerated Uses O2 at night Acute on chronic diastolic CHF , negative 6.8 L and worsening renal failure, BNP < 10 DC Lasix drip, DC Diamox Monitor intake and output wean down oxygen as tolerated\ Monitor BMP Acute kidney injury improved and now worse again, probably from overdiureses and low BP now Hold IV Lasix, hold Enalapril Get nephrology involved Hypotension yesterday--due to Lasix, and BP meds, hold all BP meds and if not improving IVF RLE cellulitis Continue cefazolin, oral Keflex at discharge Continue vancomycin p.o. for history of C diff Right heel diabetic ulcer Evaluated by wound care Debrided by surgery 03/30 Hypertension--hold enalapril, continue Coreg history of pulmonary embolism ?continue Eliquis ?morbid obesity ?weight loss advised, aware of options ?recent left total knee arthroplasty revision ?does not appear infected, outpatient follow-up for staple removal ?physical debility ?continue PT ?diabetes ?insulin, monitor bs DVT PPX Eliquis Need for inpatient: CHF requiring IV diuretics and monitoring of electrolytes, now BERNIE and needs meds adjustment, not ready for discharge today Quality Stroke Does the patient have a stroke diagnosis?: No VTE Prior VTE?: Yes VTE Risk Level:: Medical - moderate - high VTE Device Contraindication: N/A - Device Ordered VTE Drug Contraindication: N/A - Med Ordered
[2022-04-02 10:59] LABS: Glucose, Whole Blood 200 mg/dL (60-115)
[2022-04-02 11:59] LABS: Anion Gap 18 (12-20); Blood Urea Nitrogen 69 mg/dL (9-16); Calcium 8.3 mg/dL (8.4-10.2); Carbon Dioxide 27 mmol/L (22-29); Chloride 94 mmol/L (96-108); Creatinine Clr Calc Pharmacy 36.1; Estimated Glomerular Filt Rate 19; Glucose Random 213 mg/dL (60-115); Potassium 3.5 mmol/L (3.3-5.1); Sodium 135 mmol/L (135-145)
[2022-04-02] MEDS: oxyCODONE HCl Immed Release 5 MG TABLET PO ×2 (15:25→23:20)
[2022-04-02 16:14] LABS: Glucose, Whole Blood 288 mg/dL (60-115)
[2022-04-02] MEDS: 0.9 % Sodium Chloride 1,000 ML 500 ML IVCONT (16:15)
--- NOTE | 2022-04-02 16:17 | PC.NURSE ---
Pt AM coreg and amlodipine held for a trend of low blood pressures. 106/63 08:00. 16:00 patient's BP on vitals check 77/43 manual. Pt denies symptoms, appears drowsy. MD notified and bolus of normal saline ordered and initiated by RN.
[2022-04-02 16:47] LABS: Glucose, Whole Blood 292 mg/dL (60-115)
[2022-04-02 16:47] LABS: Glucose, Whole Blood 405 mg/dL (60-115)
[2022-04-02] MEDS: 0.9 % Sodium Chloride 500 ML 250 ML IV (20:26)
[2022-04-02] MEDS: Atorvastatin Calcium 80 MG TABLET PO (20:31)
[2022-04-02] MEDS: buPROPion HCl XL 150 MG TAB.ER.24H 450 MG PO (20:31)
[2022-04-02 20:54] LABS: Glucose, Whole Blood 378 mg/dL (60-115)
[2022-04-03] VITALS (8 sets, daily range): BP systolic 109–137; BP diastolic 56–63; PULSE 66–82; RESP 16–22; TEMP 36.2–37; O2SAT 92–98; BMI 58.3
[2022-04-03] MEDS: Megestrol Acetate 400 MG/10 ML ORAL.SUSP 40 MG PO ×3 (01:45→16:55)
[2022-04-03] MEDS: vancomycin HCL 125 MG CAPSULE PO ×4 (01:46→20:41)
[2022-04-03] MEDS: ceFAZolin Sodium/Dextrose,Iso 2 GM/50 ML PIGGYBACK IV ×3 (05:58→22:01)
--- NOTE | 2022-04-03 06:51 | PC.NURSE ---
MD Currie notified at 1957 that PT was 88/54, new order to hold bp meds, legs elevated, 250cc fluids. PT BP up to 115/53.
[2022-04-03 07:48] LABS: Glucose, Whole Blood 277 mg/dL (60-115)
[2022-04-03] MEDS: Fluticasone/Vilanterol 100/25 BLST.W.DEV 1 PUFF INHALE (07:55)
[2022-04-03] MEDS: Insulin Lispro 100 UNIT/ML 3 ML VIAL SUBCUT ×4 (09:01→20:42)
[2022-04-03] MEDS: Insulin Glargine,Hum.rec.anlog 100 UNIT/ML 10 ML VIAL 40 UNIT SUBCUT (09:02)
[2022-04-03] MEDS: Sertraline HCL 100 MG TABLET 200 MG PO (09:02)
[2022-04-03] MEDS: Apixaban 5 MG TABLET PO ×2 (09:03→20:42)
[2022-04-03] MEDS: modafiniL 100 MG TABLET 200 MG PO (09:03)
[2022-04-03] MEDS: Aspirin 81 MG TAB.CHEW PO (09:04)
[2022-04-03] MEDS: Ferrous Sulfate 324 MG TABLET.DR PO (09:04)
[2022-04-03] MEDS: Gabapentin 100 MG CAPSULE 200 MG PO ×2 (09:04→20:41)
[2022-04-03] MEDS: Collagenase Clostridium Hist. 30 GM TUBE 1 APPL TOPICAL (09:08)
[2022-04-03 11:32] LABS: Glucose, Whole Blood 258 mg/dL (60-115)
[2022-04-03 11:43] LABS: Anion Gap 13 (12-20); Blood Urea Nitrogen 62 mg/dL (9-16); Calcium 8.4 mg/dL (8.4-10.2); Carbon Dioxide 30 mmol/L (22-29); Chloride 97 mmol/L (96-108); Creatinine Clr Calc Pharmacy 58.5; Estimated Glomerular Filt Rate 33; Glucose Random 312 mg/dL (60-115); Potassium 3.6 mmol/L (3.3-5.1); Sodium 136 mmol/L (135-145)
--- NOTE | 2022-04-03 13:40 | MHC.CM.PN ---
pper rounds nom dc date at thsi time dc plan remanins to return to [facility] manjinder zamora
--- NOTE | 2022-04-03 14:17 | MHC.CLN ---
F/U PO INTAKE 100% X 3 MEALS DIET RX: 1800DM 1500ML FR-APPROPRIATE PT RECEIVING ENSURE MAX BID TO INCREASE PO PROTEIN FOR WOUND HEALING SUPP PROVIDES 300KCALS, 60G PROTEIN MONITOR PO INTAKE CLOSELY
[2022-04-03 16:55] LABS: Glucose, Whole Blood 265 mg/dL (60-115)
--- NOTE | 2022-04-03 19:46 | P.CONNP_ITS ---
History of Present Illness Reason for Consult Consult date: 04/03/22 Reason for consult: BERNIE, non-oliguric Chief Complaint Chief complaint: Hypoxic Resp Failure: Hyperkalemia History of Present Illness Narrative: 61 yo female with past medical history of morbid obesity, obstructive sleep apnea, pulmonary embolism, hypoxic/hypercapnic respiratory failure requiring multiple admissions in the past, C diff infection, depression, hypertension, diabetes mellitus type 2, arthritis, anemia NOS, among others who was sent via EMS from [facility] for hypoxia on 03/27/22. Initially required ICU level of care and BIPAP. Her BERNIE initially responded well to loop diuretic with return to BL S-Cr consistent with CRS from her underlying CHF. However she now has a second BERNIE likely from overdiuresis. Loop diuretics have since been held and she was provided gentle ivf's. BERNIE now appears to be resolving At time of my evaluation she was in good spirits and had no real complaints. She was alert and able to provide full ROS which was negative. Review of Systems Constitutional: Reports as per [facility] Past Medical History Medical History Anemia Arthritis Atelectasis of both lungs CHF (congestive heart failure) Clostridium difficile infection Depression Diabetes mellitus, type 2 Hypertension Hypoventilation associated with obesity syndrome Morbid obesity SMILEY (obstructive sleep apnea) Pulmonary embolism Respiratory failure with hypoxia and hypercapnia Surgical History Surgical History History of total knee replacement Social History Social History (Updated 01/05/22 @ 12:40 by Zakiya Hendricks RN) Household Members: Unknown / Unable to assess Housing: Other Housing Other:: rehab facility Are you a primary care companion to a significant other at home: No Do you presently have visiting nurse or other home services: No Unable to assess alcohol history related to: Unknown Patient Tobacco Use Status: Tobacco use Unknown Use of substances other than those prescribed or required for medical reasons: Unknown Substance Use Type: Unknown Currently Displaying Signs/Symptoms of Drug Intoxication Withdrawal: No Advance Directives: No Advance Directives Information Provided: No Nutrition Risks: No Nutritional Risk Patient : No : No Poor oral hygiene: No service: No Current occupational status: disabled Meds Allergies Allergy/AdvReac Type Severity Reaction Status Date / Time latex Allergy Unknown Unknown Verified 01/05/22 03:32 adhesive tape AdvReac Unknown Unknown Verified 01/05/22 03:32 bupropion [From Wellbutrin] AdvReac Unknown Unknown Verified 01/05/22 03:32 ibuprofen AdvReac Unknown Unknown Verified 01/05/22 03:32 Active Medications: Current Medications Amlodipine Besylate (Amlodipine Besylate 5 Mg Tablet) 5 mg PO DAILY [facility]; Protocol Last Admin: 04/02/22 08:46 Dose: Not Given Apixaban (Apixaban 5 Mg Tablet) 5 mg PO BID [facility] Last Admin: 04/03/22 09:03 Dose: 5 mg Aspirin (Aspirin 81 Mg Tab.Chew) 81 mg PO DAILY [facility] Last Admin: 04/03/22 09:04 Dose: 81 mg Atorvastatin Calcium (Atorvastatin Calcium 80 Mg Tablet) 80 mg PO BEDTIME ROSSY Last Admin: 04/02/22 20:31 Dose: 80 mg Bupropion HCl (Bupropion Hcl Xl 150 Mg Tab.Er.24h) 450 mg PO BEDTIME ROSSY Last Admin: 04/02/22 20:31 Dose: 450 mg Carvedilol (Carvedilol 12.5 Mg Tablet) 12.5 mg PO BID [facility]; Protocol Last Admin: 04/02/22 08:46 Dose: Not Given Collagenase (Collagenase Clostridium Hist. 30 Gm Tube) 1 appl TOPICAL DAILY [facility]; Protocol Last Admin: 04/03/22 09:08 Dose: 1 appl Ferrous Sulfate (Ferrous Sulfate 324 Mg Tablet.Dr) 324 mg PO DAILY [facility] Last Admin: 04/03/22 09:04 Dose: 324 mg Fluticasone/Vilanterol (Fluticasone/Vilanterol 100/25 Blst.W.Dev) 1 puff INHALE RDAILY [facility] Last Admin: 04/03/22 07:55 Dose: 1 puff Gabapentin (Gabapentin 100 Mg Capsule) 200 mg PO BID [facility] Last Admin: 04/03/22 09:04 Dose: 200 mg Glucose (Glucose Gel 15 Gm Gel..Gram.) 15 gm PO Q15M PRN; Protocol PRN Reason: per Hypoglycemia Standing Ord. Cefazolin Sodium/Dextrose (Ancef) 2 gm in 50 mls @ 100 mls/hr IV Q8H [facility] Last Infusion: 04/03/22 15:05 Dose: Infused Insulin Glargine (Insulin Glargine,Hum.Rec.Anlog 100 Unit/Ml 10 Ml Vial) 40 unit SUBCUT DAILY [facility] Last Admin: 04/03/22 09:02 Dose: 40 unit Insulin Human Lispro (Insulin Lispro 100 Unit/Ml 3 Ml Vial) 0 unit SUBCUT QIDACHS [facility]; Protocol Last Admin: 04/03/22 16:56 Dose: 6 unit Isosorbide Mononitrate (Isosorbide Mononitrate 60 Mg Tab.Er.24h) 60 mg PO DAILY [facility]; Protocol Last Admin: 04/02/22 08:44 Dose: 60 mg Megestrol Acetate (Megestrol Acetate 400 Mg/10 Ml Oral.Susp) 40 mg PO Q8H [facility] Last Admin: 04/03/22 16:55 Dose: 40 mg Modafinil (Modafinil 100 Mg Tablet) 200 mg PO DAILY [facility] Last Admin: 04/03/22 09:03 Dose: 200 mg Oxycodone HCl (Oxycodone Hcl Immed Release 5 Mg Tablet) 5 mg PO Q6H PRN PRN Reason: Pain, Severe (Pain Scale 7-10) Last Admin: 04/02/22 23:20 Dose: 5 mg Pharmacy Consult (Consult Rx Perform Med Rec) 1 each MISCELLANE ONCE PRN PRN Reason: Consult order Polyethylene Glycol (Polyethylene Glycol 3350 17 Gm Powd.Pack) 17 gm PO DAILY PRN PRN Reason: Constipation Sertraline HCl (Sertraline Hcl 100 Mg Tablet) 200 mg PO DAILY [facility] Last Admin: 04/03/22 09:02 Dose: 200 mg Sodium Hypochlorite (Sodium Hypochlorite 0.25% 473 Ml Solution) 1 appl TOPICAL DAILY [facility] Last Admin: 04/03/22 09:21 Dose: 1 appl Vancomycin HCl (Vancomycin Hcl 125 Mg Capsule) 125 mg PO Q6H [facility] Last Admin: 04/03/22 14:35 Dose: 125 mg Home Medications Medication Instructions Recorded Confirmed Last Taken Type Saccharomyces boulardii 250 mg 250 mg PO BID 11/18/21 03/28/22 Unknown History capsule acetaminophen 325 mg tablet 650 mg PO Q4H PRN Fever Or Pain 11/18/21 03/28/22 Unknown History apixaban 5 mg tablet 5 mg PO BID 11/18/21 03/28/22 Unknown History atorvastatin 80 mg tablet 80 mg PO BEDTIME 11/18/21 03/28/22 Unknown History bupropion HCl 450 mg 24 hr tablet, 450 mg PO BEDTIME 11/18/21 03/28/22 Unknown History extended release enalapril maleate 20 mg tablet 40 mg PO DAILY 11/18/21 03/28/22 Unknown History ferrous sulfate 325 mg (65 mg 325 mg PO DAILY 11/18/21 03/28/22 Unknown History iron) tablet furosemide 80 mg tablet 80 mg PO DAILY 11/18/21 03/28/22 Unknown History gabapentin 300 mg capsule 300 mg PO DAILY@1200 11/18/21 03/28/22 Unknown History gabapentin 300 mg capsule 600 mg PO BID 11/18/21 03/28/22 Unknown History insulin glargine 100 unit/mL (3 52 unit subcut DAILY 11/18/21 03/28/22 Unknown History mL) subcutaneous pen insulin lispro 100 unit/mL 22 unit subcut TIDAC 11/18/21 03/28/22 Unknown History subcutaneous pen insulin lispro 100 unit/mL See Protocol subcut QIDACHS 11/18/21 03/28/22 Unknown History subcutaneous pen lidocaine 4 % topical patch 1 patch topical DAILY 11/18/21 03/28/22 Unknown History magnesium citrate 150 ml PO DAILY PRN Constipation 11/18/21 03/28/22 Unknown History magnesium hydroxide 400 mg/5 mL 30 ml PO DAILY PRN Constipation 11/18/21 03/28/22 Unknown History oral suspension (Milk of Magnesia) melatonin 3 mg tablet 3 mg PO BEDTIME 11/18/21 03/28/22 Unknown History oxycodone 10 mg tablet 10 mg PO BEDTIME 11/18/21 03/28/22 Unknown History polyethylene glycol 3350 17 gram 17 g PO DAILY PRN Constipation 11/18/21 03/28/22 Unknown History oral powder packet (Miralax) sennosides 8.6 mg tablet (senna) 16.2 mg PO DAILY PRN Constipation 11/18/21 03/28/22 Unknown History sertraline 100 mg tablet 200 mg PO DAILY 11/18/21 03/28/22 Unknown History tizanidine 4 mg tablet 4 mg PO BEDTIME PRN Muscle Spasm 11/18/21 03/28/22 Unknown History aspirin 81 mg chewable tablet 81 mg PO DAILY 01/05/22 03/28/22 Unknown History bisacodyl 10 mg rectal suppository 10 mg AR DAILY PRN Constipation 01/05/22 03/28/22 Unknown History carvedilol 6.25 mg tablet 12.5 mg PO BID 01/05/22 03/28/22 Unknown History isosorbide mononitrate 60 mg 1 tab PO DAILY 01/05/22 03/28/22 Unknown History tablet,extended release 24 hr megestrol 400 mg/10 mL (10 mL) 40 mg PO Q8H 01/05/22 03/28/22 Unknown History oral suspension oxycodone 10 mg tablet 10 mg PO Q8H PRN Pain, Severe 01/05/22 03/28/22 Unknown History potassium chloride 20 mEq 20 meq PO DAILY 01/05/22 03/28/22 Unknown History tablet,extended release amoxicillin 500 mg capsule 1,000 mg PO Q12H 03/27/22 03/28/22 Unknown History Physical Exam Vital Signs: Last Vital Signs Temp 98 F 04/03/22 16:00 Pulse 78 04/03/22 16:00 Resp 17 04/03/22 16:00 BP 137/62 04/03/22 16:00 Pulse Ox 94 04/03/22 16:00 O2 Del Method 04/03/22 16:00 O2 Flow Rate 5 04/03/22 16:00 FiO2 35 04/03/22 02:40 Oxygen Flow Rate 100 03/27/22 17:29 BMI result Body Mass Index 58.3 Const General: cooperative and no acute distress Nutritional Appearance: obese Orientation/consciousness: patient oriented x3 HEENT Head: Yes normocephalic and Yes atraumatic Neck Neck: Yes no JVD Resp Auscultation: clear to auscultation bilaterally Cardio Jugular venous distension: no JVD Rate: regular rate Rhythm: regular rhythm Heart sounds: S1 normal heart sound present and S2 normal heart sound present GI Auscultation: normal bowel sounds Neuro General: patient oriented x3 Extrem General: Yes no clubbing, cyanosis or edema Results Lab Results Result Diagrams: 03/28/22 05:54 04/03/22 11:10 Lab results: Chemistry 04/02/22 04/03/22 10:56 11:10 Sodium 135 136 Potassium 3.5 3.6 Carbon Dioxide 27 30 H BUN 69 H 62 H Creatinine 2.56 H 1.59 H Calcium 8.3 L 8.4 Assessment and Plan (1) BERNIE (acute kidney injury): Status: Acute BERNIE, non-oliguric S/P IVF's with improvement in S-Cr. Would hold loop diuretics as you are doing until Cr returns to BL. high dose diuretic gtt likely IV depleted her and resulted in tubular stress from low volume state. Urine data reviewed. hold acei/arb, avoidance of iv contrast and nsaids. BS control to prevent osmotic diuresis. Hyperkalemia - resolved. Will follow along with you. (2) Acute hyperkalemia: Status: Acute Procedures Date of Service Date of Service: 04/03/22
[2022-04-03 20:12] LABS: Glucose, Whole Blood 299 mg/dL (60-115)
[2022-04-03] MEDS: buPROPion HCl XL 150 MG TAB.ER.24H 450 MG PO (20:41)
[2022-04-03] MEDS: Atorvastatin Calcium 80 MG TABLET PO (20:42)
[2022-04-03] MEDS: oxyCODONE HCl Immed Release 5 MG TABLET PO (20:45)
[2022-04-04] VITALS: PULSE 80; RESP 16; O2SAT 92
[2022-04-04] MEDS: vancomycin HCL 125 MG CAPSULE PO ×4 (01:43→21:51)
[2022-04-04] MEDS: Megestrol Acetate 400 MG/10 ML ORAL.SUSP 40 MG PO ×3 (01:44→18:50)
[2022-04-04 04:00] VITALS: BP 123/66; PULSE 71; RESP 16; TEMP 36.1; O2SAT 95
[2022-04-04] MEDS: ceFAZolin Sodium/Dextrose,Iso 2 GM/50 ML PIGGYBACK IV ×3 (05:24→21:56)
[2022-04-04 06:00] VITALS: BMI 59.8
[2022-04-04 08:00] VITALS: BP 135/73; PULSE 75; RESP 18; TEMP 36.2; O2SAT 93
[2022-04-04 08:22] LABS: Glucose, Whole Blood 193 mg/dL (60-115)
[2022-04-04 08:44] LABS: Anion Gap 13 (12-20); Blood Urea Nitrogen 47 mg/dL (9-16); Calcium 8.9 mg/dL (8.4-10.2); Carbon Dioxide 27 mmol/L (22-29); Chloride 100 mmol/L (96-108); Creatinine Clr Calc Pharmacy 82.3; Estimated Glomerular Filt Rate 48; Glucose Random 248 mg/dL (60-115); Potassium 3.9 mmol/L (3.3-5.1); Sodium 136 mmol/L (135-145)
[2022-04-04] MEDS: Sertraline HCL 100 MG TABLET 200 MG PO (08:54)
[2022-04-04] MEDS: modafiniL 100 MG TABLET 200 MG PO (08:54)
[2022-04-04] MEDS: Insulin Glargine,Hum.rec.anlog 100 UNIT/ML 10 ML VIAL 40 UNIT SUBCUT (08:54)
[2022-04-04] MEDS: Insulin Lispro 100 UNIT/ML 3 ML VIAL SUBCUT ×5 (08:54→21:50)
[2022-04-04] MEDS: Gabapentin 100 MG CAPSULE 200 MG PO ×2 (08:55→21:49)
[2022-04-04] MEDS: Ferrous Sulfate 324 MG TABLET.DR PO (08:55)
[2022-04-04] MEDS: Aspirin 81 MG TAB.CHEW PO (08:55)
[2022-04-04] MEDS: Apixaban 5 MG TABLET PO ×2 (08:55→21:51)
[2022-04-04 11:33] LABS: Glucose, Whole Blood 264 mg/dL (60-115)
[2022-04-04] MEDS: oxyCODONE HCl Immed Release 5 MG TABLET PO ×3 (12:25→23:17)
[2022-04-04] MEDS: Collagenase Clostridium Hist. 30 GM TUBE 1 APPL TOPICAL (12:26)
--- NOTE | 2022-04-04 12:30 | HO.PM.IMPN ---
Subjective Subjective Date of Service: 04/04/22 Interval History: f/u on respiraotry failure, bernie, chf inteval isotry : Seems better, renal fuction is better, No hypOtension Review of Systems no fever no sob no dizzines Physical Exam Vital Signs: Vital Signs: Last Vital Signs Temp 97.1 F 04/04/22 08:00 Pulse 75 04/04/22 08:00 Resp 18 04/04/22 08:00 BP 135/73 04/04/22 08:00 Pulse Ox 93 04/04/22 08:00 O2 Del Method 04/04/22 08:00 O2 Flow Rate 5 04/04/22 08:00 FiO2 35 04/03/22 02:40 Oxygen Flow Rate 100 03/27/22 17:29 BMI result Body Mass Index 59.8 Const: Other: Constitutional : Alert,? not in distress Neck : Normal inspection, Supple Cardiovascular : RRR, S1 S2,? +1 lower extremity edema Respiratory :? fair bilateral air entry, ? no fine crackles, wheezes or rhonchi Gastrointestinal:? soft, lax, Normal bowel sounds, Non tender Skin : Warm, Dry,? improved erythema in Rt LE, right heel wound full-thickness of 4 x 3 cm Neurological : Alert & oriented x3, No focal deficit Objective Data Active Medications Amlodipine Besylate (Amlodipine Besylate 5 Mg Tablet) 5 mg PO DAILY [facility]; Protocol Last Admin: 04/02/22 08:46 Dose: Not Given Documented By: SRINIVASA Non-Admin Reason: BP 106/63 low Apixaban (Apixaban 5 Mg Tablet) 5 mg PO BID [facility] Last Admin: 04/04/22 08:55 Dose: 5 mg Documented By: PUJA Aspirin (Aspirin 81 Mg Tab.Chew) 81 mg PO DAILY [facility] Last Admin: 04/04/22 08:55 Dose: 81 mg Documented By: PUJA Atorvastatin Calcium (Atorvastatin Calcium 80 Mg Tablet) 80 mg PO BEDTIME [facility] Last Admin: 04/03/22 20:42 Dose: 80 mg Documented By: HENRY Bupropion HCl (Bupropion Hcl Xl 150 Mg Tab.Er.24h) 450 mg PO BEDTIME [facility] Last Admin: 04/03/22 20:41 Dose: 450 mg Documented By: HENRY Carvedilol (Carvedilol 12.5 Mg Tablet) 12.5 mg PO BID [facility]; Protocol Last Admin: 04/02/22 08:46 Dose: Not Given Documented By: SRINIVASA Non-Admin Reason: BP 106/63 low Collagenase (Collagenase Clostridium Hist. 30 Gm Tube) 1 appl TOPICAL DAILY [facility]; Protocol Last Admin: 04/03/22 09:08 Dose: 1 appl Documented By: SRINIVASA Ferrous Sulfate (Ferrous Sulfate 324 Mg Tablet.Dr) 324 mg PO DAILY [facility] Last Admin: 04/04/22 08:55 Dose: 324 mg Documented By: PUJA Fluticasone/Vilanterol (Fluticasone/Vilanterol 100/25 Blst.W.Dev) 1 puff INHALE RDAILY [facility] Last Admin: 04/04/22 09:40 Dose: Not Given Documented By: JANETH Non-Admin Reason: Med Not Available Gabapentin (Gabapentin 100 Mg Capsule) 200 mg PO BID [facility] Last Admin: 04/04/22 08:55 Dose: 200 mg Documented By: PUJA Glucose (Glucose Gel 15 Gm Gel..Gram.) 15 gm PO Q15M PRN; Protocol PRN Reason: per Hypoglycemia Standing Ord. Cefazolin Sodium/Dextrose (Ancef) 2 gm in 50 mls @ 100 mls/hr IV Q8H [facility] Last Infusion: 04/04/22 06:12 Dose: 0 mls/hr Documented By: HENRY Insulin Glargine (Insulin Glargine,Hum.Rec.Anlog 100 Unit/Ml 10 Ml Vial) 40 unit SUBCUT DAILY [facility] Last Admin: 04/04/22 08:54 Dose: 40 unit Documented By: PUJA Insulin Human Lispro (Insulin Lispro 100 Unit/Ml 3 Ml Vial) 0 unit SUBCUT QIDACHS [facility]; Protocol Last Admin: 04/04/22 08:54 Dose: 2 unit Documented By: PUJA Isosorbide Mononitrate (Isosorbide Mononitrate 60 Mg Tab.Er.24h) 60 mg PO DAILY [facility]; Protocol Last Admin: 04/02/22 08:44 Dose: 60 mg Documented By: SRINIVASA Megestrol Acetate (Megestrol Acetate 400 Mg/10 Ml Oral.Susp) 40 mg PO Q8H [facility] Last Admin: 04/04/22 01:44 Dose: 40 mg Documented By: HENRY Modafinil (Modafinil 100 Mg Tablet) 200 mg PO DAILY [facility] Last Admin: 04/04/22 08:54 Dose: 200 mg Documented By: PUJA Oxycodone HCl (Oxycodone Hcl Immed Release 5 Mg Tablet) 5 mg PO Q6H PRN PRN Reason: Pain, Severe (Pain Scale 7-10) Last Admin: 04/03/22 20:45 Dose: 5 mg Documented By: HENRY Pharmacy Consult (Consult Rx Perform Med Rec) 1 each MISCELLANE ONCE PRN PRN Reason: Consult order Polyethylene Glycol (Polyethylene Glycol 3350 17 Gm Powd.Pack) 17 gm PO DAILY PRN PRN Reason: Constipation Sertraline HCl (Sertraline Hcl 100 Mg Tablet) 200 mg PO DAILY [facility] Last Admin: 04/04/22 08:54 Dose: 200 mg Documented By: PUJA Sodium Hypochlorite (Sodium Hypochlorite 0.25% 473 Ml Solution) 1 appl TOPICAL DAILY [facility] Last Admin: 04/03/22 09:21 Dose: 1 appl Documented By: SRINIVASA Vancomycin HCl (Vancomycin Hcl 125 Mg Capsule) 125 mg PO Q6H [facility] Last Admin: 04/04/22 08:55 Dose: 125 mg Documented By: PUJA Labs CBC & Chem 7: 03/28/22 05:54 04/04/22 07:36 Labs: Laboratory Results - last 24 hr 04/03/22 04/03/22 04/04/22 16:44 20:08 07:36 Anion Gap 13 Estim Creat Clear Calc 82.3 Estimated GFR 48 POC Glucose 265 H 299 H Random Glucose 248 H Calcium 8.9 04/04/22 04/04/22 08:19 11:29 Anion Gap Estim Creat Clear Calc Estimated GFR POC Glucose 193 H 264 H Random Glucose Calcium Assessment and Plan (1) Diabetic ulcer of foot associated with diabetes mellitus due to underlying condition, with fat layer exposed: Status: Acute (2) Respiratory failure with hypoxia and hypercapnia: Status: Acute (3) Cellulitis of leg, right: Status: Acute Plan 60/F presented with hypoxia and ams,? was admitted to the ICU for acute BiPAP.? Patient was diuresed with IV Lasix infusion, was treated for cellulitis of the right anterior leg. Acute hypoxic hypercapnic respiratory failure Secondary to ohs, SMILEY, home medications Patient not regular with her CPAP Wean oxygen down as tolerated Uses O2 at night Acute on chronic diastolic CHF , negative 6.8 L and worsening renal failure, BNP < 10 Was on IV Lasix, now off Lasix, restart Lasix at lower dose 40 and montor Monitor intake and output wean down oxygen as tolerated\ Monitor BMP Acute kidney injury improved and now worse again, probably from overdiuresiss and low BP now continuing holding Enalapril Neprhology following Hypotension --resolved,. RLE cellulitis--Adequately tretred, DC Cefazolin C dif there is no documented evidence of c dif and no diarrhea, dc vanco Right heel diabetic ulcer Evaluated by wound care Debrided by surgery 03/30 Hypertension--hold enalapril, continue Coreg history of pulmonary embolism ?continue Eliquis ?morbid obesity ?weight loss advised, aware of options ?recent left total knee arthroplasty revision ?does not appear infected, outpatient follow-up for staple removal ?physical debility ?continue PT ?diabetes ?insulin, monitor bs DVT PPX Eliquis Need for inpatient: CHF requiring IV diuretics and monitoring of electrolytes, now BERNIE and needs meds adjustment, not ready for discharge today anticipate optimization of meds and discharge tomorrow Quality Stroke Does the patient have a stroke diagnosis?: No VTE Prior VTE?: Yes VTE Risk Level:: Medical - moderate - high VTE Device Contraindication: N/A - Device Ordered VTE Drug Contraindication: N/A - Med Ordered
--- NOTE | 2022-04-04 14:52 | P.PNNP_ITS ---
Subjective Subjective Date of Service: 04/04/22 Interval history: f/u on respiraotry failure, bernie, chf inteval isotry : Seems better, renal fuction is better, No hypOtension Physical Exam Vital Signs: Vital Signs: Last Vital Signs Temp 97.1 F 04/04/22 08:00 Pulse 75 04/04/22 08:00 Resp 18 04/04/22 08:00 BP 135/73 04/04/22 08:00 Pulse Ox 93 04/04/22 08:00 O2 Del Method 04/04/22 08:00 O2 Flow Rate 5 04/04/22 08:00 FiO2 35 04/03/22 02:40 Oxygen Flow Rate 100 03/27/22 17:29 BMI result Body Mass Index 59.8 Const: General: cooperative and no acute distress Orienta tion/consciousness: patient oriented x3 HEENT: Head: Yes normocephalic and Yes atraumatic Neck: Neck: Yes no JVD Resp: Auscultation: clear to auscultation bilaterally Cardio: Jugular venous distension: no JVD Rate: regular rate Rhythm: regular rhythm Heart sounds: S1 normal heart sound present and S2 normal heart sound present GI: Auscultation: normal bowel sounds Neuro: General: patient oriented x3 and no focal motor deficits Extrem: General: Yes no clubbing, cyanosis or edema Objective Data Labs CBC & Chem 7: 03/28/22 05:54 04/04/22 07:36 Labs: Laboratory Results - last 24 hr 04/03/22 04/03/22 04/04/22 16:44 20:08 07:36 Sodium 136 Potassium 3.9 Chloride 100 Carbon Dioxide 27 Anion Gap 13 BUN 47 H Creatinine 1.15 Estim Creat Clear Calc 82.3 Estimated GFR 48 POC Glucose 265 H 299 H Random Glucose 248 H Calcium 8.9 04/04/22 04/04/22 08:19 11:29 Sodium Potassium Chloride Carbon Dioxide Anion Gap BUN Creatinine Estim Creat Clear Calc Estimated GFR POC Glucose 193 H 264 H Random Glucose Calcium Microbiology Microbiology Results: Microbiology 03/27/22 18:40 Blood - Venous Blood Culture - Final No growth after 5 days. 03/27/22 18:03 Blood - Venous Blood Culture - Final No growth after 5 days. Procedures Date of Service Date of Service: 04/04/22 Assessment & Plan Assessment and plan (1) BERNIE (acute kidney injury): Status: Acute Assessment and Plan: #) BERNIE, non-oliguric; S/P IVF's with improvement in S-Cr. Was likely overdiuresed. likely IV depleted her and resulted in tubular stress from low volume state. Can reintroduce loop diuretic once po intake improves. Urine data reviewed. hold acei/arb, avoidance of iv contrast and nsaids. BS control to prevent osmotic diuresis. Hyperkalemia - resolved. Time Spent With Patient Time: Total time spent is greater than 50% in coordination of care (as documented) at patient's floor/unit and/or counseling patient: Progress Note: Quality Stroke Does the patient have a stroke diagnosis?: No
[2022-04-04 15:11] VITALS: BP 146/74; PULSE 79; RESP 20; TEMP 36.8; O2SAT 95
[2022-04-04 16:00] LABS: Glucose, Whole Blood 424 mg/dL (60-115)
[2022-04-04 18:55] VITALS: BP 134/65; PULSE 87; RESP 18; TEMP 37; O2SAT 95
[2022-04-04 19:52] LABS: Glucose, Whole Blood 391 mg/dL (60-115)
[2022-04-04] MEDS: Atorvastatin Calcium 80 MG TABLET PO (21:49)
[2022-04-04] MEDS: buPROPion HCl XL 150 MG TAB.ER.24H 450 MG PO (21:50)
[2022-04-05] VITALS (7 sets, daily range): BP systolic 158–179; BP diastolic 58–96; PULSE 76–89; RESP 15–20; TEMP 35.7–37; O2SAT 93–97; BMI 60.1
[2022-04-05] MEDS: Megestrol Acetate 400 MG/10 ML ORAL.SUSP 40 MG PO ×3 (01:57→21:22)
[2022-04-05] MEDS: vancomycin HCL 125 MG CAPSULE PO ×2 (01:57→09:10)
[2022-04-05] MEDS: ceFAZolin Sodium/Dextrose,Iso 2 GM/50 ML PIGGYBACK IV (05:39)
[2022-04-05 07:25] LABS: Glucose, Whole Blood 220 mg/dL (60-115)
[2022-04-05 08:59] LABS: Anion Gap 13 (12-20); Blood Urea Nitrogen 36 mg/dL (9-16); Carbon Dioxide 28 mmol/L (22-29); Chloride 100 mmol/L (96-108); Creatinine Clr Calc Pharmacy 93.1; Estimated Glomerular Filt Rate 55; Glucose Random 229 mg/dL (60-115); Sodium 137 mmol/L (135-145)
[2022-04-05] MEDS: Aspirin 81 MG TAB.CHEW PO (09:09)
[2022-04-05] MEDS: Furosemide 40 MG TABLET PO (09:10)
[2022-04-05] MEDS: Sertraline HCL 100 MG TABLET 200 MG PO (09:10)
[2022-04-05] MEDS: Gabapentin 100 MG CAPSULE 200 MG PO ×2 (09:10→21:22)
[2022-04-05] MEDS: Apixaban 5 MG TABLET PO ×2 (09:10→21:22)
[2022-04-05] MEDS: Ferrous Sulfate 324 MG TABLET.DR PO (09:10)
[2022-04-05] MEDS: Insulin Glargine,Hum.rec.anlog 100 UNIT/ML 10 ML VIAL 40 UNIT SUBCUT (09:11)
[2022-04-05] MEDS: Insulin Lispro 100 UNIT/ML 3 ML VIAL SUBCUT ×3 (09:11→21:38)
--- NOTE | 2022-04-05 10:47 | HO.PM.IMPN ---
Subjective Subjective Date of Service: 04/05/22 Interval History: f/u on respiraotry failure, edgard, chf inteval isotry : has pain in the foot, otherwise no shortness of breath, renal function is getting better. Review of Systems no fever no sob no dizzines Physical Exam Vital Signs: Vital Signs: Last Vital Signs Temp 96.9 F 04/05/22 09:19 Pulse 76 04/05/22 07:26 Resp 20 04/05/22 07:26 BP 166/79 H 04/05/22 07:26 Pulse Ox 97 04/05/22 07:26 O2 Del Method 04/05/22 07:26 O2 Flow Rate 5 04/05/22 07:26 FiO2 35 04/03/22 02:40 Oxygen Flow Rate 100 03/27/22 17:29 BMI result Body Mass Index 60.1 Const: Other: Constitutional : Alert,? not in distress Neck : Normal inspection, Supple Cardiovascular : RRR, S1 S2,? +1 lower extremity edema Respiratory :? fair bilateral air entry, ? no fine crackles, wheezes or rhonchi Gastrointestinal:? soft, lax, Normal bowel sounds, Non tender Skin : Warm, Dry,? improved erythema in Rt LE, right heel wound full-thickness of 4 x 3 cm Neurological : Alert & oriented x3, No focal deficit Objective Data Active Medications Amlodipine Besylate (Amlodipine Besylate 5 Mg Tablet) 5 mg PO DAILY [facility]; Protocol Last Admin: 04/02/22 08:46 Dose: Not Given Documented By: SRINIVASA Non-Admin Reason: BP 106/63 low Apixaban (Apixaban 5 Mg Tablet) 5 mg PO BID [facility] Last Admin: 04/05/22 09:10 Dose: 5 mg Documented By: DONALD Aspirin (Aspirin 81 Mg Tab.Chew) 81 mg PO DAILY [facility] Last Admin: 04/05/22 09:09 Dose: 81 mg Documented By: DONALD Atorvastatin Calcium (Atorvastatin Calcium 80 Mg Tablet) 80 mg PO BEDTIME [facility] Last Admin: 04/04/22 21:49 Dose: 80 mg Documented By: HENRY Bupropion HCl (Bupropion Hcl Xl 150 Mg Tab.Er.24h) 450 mg PO BEDTIME [facility] Last Admin: 04/04/22 21:50 Dose: 450 mg Documented By: HENRY Carvedilol (Carvedilol 12.5 Mg Tablet) 12.5 mg PO BID [facility]; Protocol Last Admin: 04/02/22 08:46 Dose: Not Given Documented By: SRINIVASA Non-Admin Reason: BP 106/63 low Collagenase (Collagenase Clostridium Hist. 30 Gm Tube) 1 appl TOPICAL DAILY [facility]; Protocol Last Admin: 04/04/22 12:26 Dose: 1 appl Documented By: DOBROAdria Ferrous Sulfate (Ferrous Sulfate 324 Mg Tablet.Dr) 324 mg PO DAILY [facility] Last Admin: 04/05/22 09:10 Dose: 324 mg Documented By: SCOT-EDWIN Fluticasone/Vilanterol (Fluticasone/Vilanterol 100/25 Blst.W.Dev) 1 puff INHALE RDAILY [facility] Last Admin: 04/05/22 07:40 Dose: Not Given Documented By: DESHAWN Non-Admin Reason: Patient Refused Furosemide (Furosemide 40 Mg Tablet) 40 mg PO DAILY [facility]; Protocol Last Admin: 04/05/22 09:10 Dose: 40 mg Documented By: SCOT-EDWIN Gabapentin (Gabapentin 100 Mg Capsule) 200 mg PO BID [facility] Last Admin: 04/05/22 09:10 Dose: 200 mg Documented By: DONALD Glucose (Glucose Gel 15 Gm Gel..Gram.) 15 gm PO Q15M PRN; Protocol PRN Reason: per Hypoglycemia Standing Ord. Insulin Glargine (Insulin Glargine,Hum.Rec.Anlog 100 Unit/Ml 10 Ml Vial) 40 unit SUBCUT DAILY [facility] Last Admin: 04/05/22 09:11 Dose: 40 unit Documented By: DONALD Insulin Human Lispro (Insulin Lispro 100 Unit/Ml 3 Ml Vial) 0 unit SUBCUT QIDACHS [facility]; Protocol Last Admin: 04/05/22 09:11 Dose: 4 unit Documented By: SCOT-EDWIN Isosorbide Mononitrate (Isosorbide Mononitrate 60 Mg Tab.Er.24h) 60 mg PO DAILY [facility]; Protocol Last Admin: 04/02/22 08:44 Dose: 60 mg Documented By: SRINIVASA Megestrol Acetate (Megestrol Acetate 400 Mg/10 Ml Oral.Susp) 40 mg PO Q8H [facility] Last Admin: 04/05/22 01:57 Dose: 40 mg Documented By: HENRY Oxycodone HCl (Oxycodone Hcl Immed Release 5 Mg Tablet) 5 mg PO Q6H PRN PRN Reason: Pain, Severe (Pain Scale 7-10) Last Admin: 04/04/22 23:17 Dose: 5 mg Documented By: HENRY Pharmacy Consult (Consult Rx Perform Med Rec) 1 each MISCELLANE ONCE PRN PRN Reason: Consult order Polyethylene Glycol (Polyethylene Glycol 3350 17 Gm Powd.Pack) 17 gm PO DAILY PRN PRN Reason: Constipation Sertraline HCl (Sertraline Hcl 100 Mg Tablet) 200 mg PO DAILY [facility] Last Admin: 04/05/22 09:10 Dose: 200 mg Documented By: DONALD Sodium Hypochlorite (Sodium Hypochlorite 0.25% 473 Ml Solution) 1 appl TOPICAL DAILY [facility] Last Admin: 04/04/22 12:30 Dose: 1 appl Documented By: PUJA Vancomycin HCl (Vancomycin Hcl 125 Mg Capsule) 125 mg PO Q6H [facility] Last Admin: 04/05/22 09:10 Dose: 125 mg Documented By: DONALD Labs CBC & Chem 7: 03/28/22 05:54 04/05/22 08:21 Labs: Laboratory Results - last 24 hr 04/04/22 04/04/22 04/04/22 11:29 15:56 19:48 Anion Gap Estim Creat Clear Calc Estimated GFR POC Glucose 264 H 424 H* 391 H* Random Glucose Calcium 04/05/22 04/05/22 07:07 08:21 Anion Gap 13 Estim Creat Clear Calc 93.1 Estimated GFR 55 POC Glucose 220 H Random Glucose 229 H Calcium 9.0 Assessment and Plan (1) Diabetic ulcer of foot associated with diabetes mellitus due to underlying condition, with fat layer exposed: Status: Acute (2) Respiratory failure with hypoxia and hypercapnia: Status: Acute (3) Acute hyperkalemia: Status: Acute Plan 60/F presented with hypoxia and ams,? was admitted to the ICU for acute BiPAP.? Patient was diuresed with IV Lasix infusion, was treated for cellulitis of the right anterior leg. Acute hypoxic hypercapnic respiratory failure Secondary to ohs, SMILEY, home medications Patient not regular with her CPAP Wean oxygen down as tolerated Uses O2 at night Acute on chronic diastolic CHF , negative 6.8 L and worsening renal failure, BNP < 10 Was on IV Lasix, now off Lasix, restart Lasix at lower dose 40 and montor Monitor intake and output wean down oxygen as tolerated\ Monitor BMP Acute kidney injury improved and now worse again, probably from overdiuresiss and low BP now resolved Hypotension --resolved,. RLE cellulitis--Adequately tretred, DC Cefazolin C dif there is no documented evidence of c dif and no diarrhea, dc vanco Right heel diabetic ulcer Evaluated by wound care Debrided by surgery 03/30 Hypertension--hold enalapril, continue Coreg and add Norvasc history of pulmonary embolism ?continue Eliquis ?morbid obesity ?weight loss advised, aware of options ?recent left total knee arthroplasty revision ?does not appear infected, outpatient follow-up for staple removal ?physical debility ?continue PT ?diabetes ?insulin, monitor bs DVT PPX Eliquis Need for inpatient: been watch for renal failure, following treatment for heart failure anticipate optimization of meds and discharge tomorrow Quality Stroke Does the patient have a stroke diagnosis?: No VTE Prior VTE?: Yes VTE Risk Level:: Medical - moderate - high VTE Device Contraindication: N/A - Device Ordered VTE Drug Contraindication: N/A - Med Ordered
[2022-04-05 11:16] LABS: Glucose, Whole Blood 202 mg/dL (60-115)
[2022-04-05] MEDS: Collagenase Clostridium Hist. 30 GM TUBE 1 APPL TOPICAL (11:16)
[2022-04-05] MEDS: oxyCODONE HCl Immed Release 5 MG TABLET PO ×3 (11:17→21:22)
--- NOTE | 2022-04-05 11:42 | MHC.CLN ---
F/U PO INTAKE REMAINS 100% DIET RX: 1800DM 1500ML FR-APPROPRIATE PT RECEIVING ENSURE MAX BID TO INCREASE PO PROTEIN FOR WOUND HEALING SUPP PROVIDES 300KCALS, 60G PROTEIN CONTINUE TO MONITOR PO INTAKE CLOSELY
--- NOTE | 2022-04-05 11:54 | MHC.CM.PN ---
PT MEDICALLY CLEARED FOR D/C BACK TO [facility], [facility] FOR BLS TRANSPORT.
--- NOTE | 2022-04-05 12:08 | P.DS_ITS ---
DS: Providers Provider Date of Service: 04/05/22 Date of admission: 03/27/22 20:04 Primary care physician: Tita Bal MD Consults: 03/28/22 07:00 Consult to Wound Care Routine Consulting Provider: Silvia Goins Reason for consultation: R heel pressure diabetic would Has provider been notified: No 04/01/22 10:27 Consult to Nephrology Routine Consulting Provider: Rael Stroud Reason for consultation: BERNIE, cKD Has provider been notified: No DS: Diagnosis Discharge Diagnosis (1) Diabetic ulcer of foot associated with diabetes mellitus due to underlying condition, with fat layer exposed: Status: Inactive (2) Respiratory failure with hypoxia and hypercapnia: Status: Resolved (3) Acute hyperkalemia: Status: Resolved DS: Summary Hospital Course Hospital Course: ?Patient with underlying history of morbid obesity, obstructive sleep apnea, pulmonary embolism, hypoxic/hypercapnic respiratory failure requiring multiple admissions in the past, C diff infection, depression, hypertension, diabetes mellitus type 2, arthritis, anemia NOS, among others who was sent via EMS from [facility]; it was reported but their staff that the patient had been lethargic since earlier in the morning and although a stopgap insistent to send the patient to the ER, the patient kept refusing.? By this afternoon 1 hour prior to transfer, the patient was noted to be unresponsive to their questions a 1 point EMS was called, her O2 sat at the time had being in the low 80s on 6 L nasal cannula, the Head place the patient on a non-rebreather improving her oxygen levels to low 90s.? Upon arrival to the ER the patient had been lethargic but arousable to sternal rub and occasionally to her name. ? In the ER, the patient was noted to normal vital signs with section of hypoxia as it was reported she had a sat of 80% room air which improved with BiPAP but recurs as soon as you remove the mass.? Her workup revealed a white count of 9.4, hemoglobin of 11.7, hematocrit 41.3, platelets 315, INR 1.3, venous blood gas pH 7.24, pCO2 65, PO2 59, HC03 28, O2 sat 87%, sodium 137, potassium 6.9, chloride 102, carbon dioxide 27, anion gap 15, BUN 60, creatinine 1.66 with a previous baseline of (17 and 0.8 respectively), random glucose 312, lactic acid 0.7, magnesium 2.6, troponin 6.9, BNP 83, albumin 4.0, acetone negative, urinalysis negative, urine tox screen positive for opiates. Chest x-ray showed low volumes with streaky patchy bilateral airspace opacities compatible with atelectasis versus small areas of consolidations, mild vascular congestion and no overt pulmonary edema or pleural effusions.? Right foot x-ray reveals no evidence of osteomyelitis, patient does have a significant right lower extremity cellulitis, was treated with vancomycin and Zosyn, Lasix and we were called to admit the patient for further management. ? During the evaluation, the patient appears to be somnolent, does become alert with sternal rub but goes sleepy again. Hospital course: She presented to the ED with acute hypoxic respiratory failure with o2 as low as 80, ABG showed acidosis. She was put on BiPAP an was admitted through the ICU, she was also suspected of having acute on chronic diastolic heart failure and was given IV diuretics. Acute respiratory failure was likely due to combination of SMILEY, hypoventilation and heart failure. For heart failure she was treated with IV Lasix and with removal of about 6 liters and acute respiratory failure has since resolved. She developped acute renal failure from what we believe to be overdiuresis causing hypotension and needed to be given IV fluid back, hold of Enalapril and eventually renal function has returned to normal and blood pressure is back up. Will resume Enalapril at discharge, along with other BP meds. She was treated for cellulitis of right leg with Cefazolin x 7 days and no active cellulitis at this time, the right heel ulcer was debrided by surgery on 03/30 and we should continue daily dressing. problems BERNIE d/t hypotension, over use of lasix--this has resolved with IVF. Creatine was 2.56 on the and has come down to 1.02 today. Enalapril was on hold but can be safely resumed. ?Hypertension-- To resume Coreg, enalapril, Norvasc. ?history of pulmonary embolism?continue Eliquis ?morbid obesity weight loss advised, aware of options ?recent left total knee arthroplasty revision does not appear infected, outpatient follow-up for staple removal Diabetes-- to continue Insulin--Usually Lantus 52, Lispro 22 units before meals.. In the hospital has been on Lantus 40 and Sliding with blood sugars in the 200s Advise Lantus 45 at discharge and Sliding.. Holding scheduled 22 units of Lispro and continue monitoring sugars Time Spent with Patient Time attestation: Total time spent providing and/or coordinating discharge services: Discharge coordination time: Greater than 30 minutes Quality: Safe Use of Opioids Does Pt have an Active Cancer Diagnosis on the Problem List?: No Quality: Stroke Does the patient have a stroke diagnosis?: No Physical Exam Vital Signs: Vital Signs: Last Vital Signs Temp 96.5 F L 04/05/22 11:40 Pulse 78 04/05/22 11:40 Resp 20 04/05/22 11:40 BP 177/93 H 04/05/22 11:40 Pulse Ox 95 04/05/22 11:40 O2 Del Method 04/05/22 11:40 O2 Flow Rate 5 04/05/22 11:40 FiO2 35 04/03/22 02:40 Oxygen Flow Rate 100 03/27/22 17:29 BMI result Body Mass Index 60.1 DS: Data Data Completed and Pending Completed studies during hospitalization [Text1]: 2) Labs on day of discharge: Laboratory Results - last 24 hr 04/04/22 04/04/22 04/05/22 15:56 19:48 07:07 Sodium Potassium Chloride Carbon Dioxide Anion Gap BUN Creatinine Estim Creat Clear Calc Estimated GFR POC Glucose 424 H* 391 H* 220 H Random Glucose Calcium 04/05/22 04/05/22 08:21 11:11 Sodium 137 Potassium 4.0 Chloride 100 Carbon Dioxide 28 Anion Gap 13 BUN 36 H Creatinine 1.02 Estim Creat Clear Calc 93.1 Estimated GFR 55 POC Glucose 202 H Random Glucose 229 H Calcium 9.0 Discharge Plan Discharge Anticipated Discharge Date/Time: 04/05/22 16:30 Patient Disposition: Xfer SNF Discharge Diagnosis: Respiratory failure due to heart failure, SMILEY, renal failure, Referrals: [facility] [Outside] - 1 Day (short term rehab) Tita Bal MD [Primary Care Provider] - 1 Week Discharge Medications: New furosemide 40 mg Tablet 40 mg PO DAILY Qty: 30 0RF Protocol: Hold for SBP< HOLD for SBP < : 90 insulin glargine [Lantus U-100 Insulin] 100 unit/mL Solution 45 unit subcut DAILY Qty: 10 0RF Continued atorvastatin 80 mg Tablet 80 mg PO BEDTIME sennosides [senna] 8.6 mg Tablet 16.2 mg PO DAILY PRN (Reason: Constipation) acetaminophen 325 mg Tablet 650 mg PO Q4H PRN (Reason: Fever Or Pain) lidocaine 4 % Adhesive Patch,Medicated 1 patch TOPICAL DAILY Rx Instructions: APPLY TO BACK polyethylene glycol 3350 [Miralax] 17 gram Powder In Packet 17 g PO DAILY PRN (Reason: Constipation) tizanidine 4 mg Tablet 4 mg PO BEDTIME PRN (Reason: Muscle Spasm) enalapril maleate 20 mg Tablet 40 mg PO DAILY sertraline 100 mg Tablet 200 mg PO DAILY melatonin 3 mg Tablet 3 mg PO BEDTIME magnesium hydroxide [Milk of Magnesia] 400 mg/5 mL Suspension 30 ml PO DAILY PRN (Reason: Constipation) ferrous sulfate 325 mg (65 mg iron) Tablet 325 mg PO DAILY gabapentin 300 mg Capsule 300 mg PO DAILY@1200 gabapentin 300 mg Capsule 600 mg PO BID magnesium citrate Solution 150 ml PO DAILY PRN (Reason: Constipation) insulin lispro 100 unit/mL Insulin Pen See Protocol SUBCUT QIDACHS Protocol: Insulin Correction Scale Less than or equal to 110 ---- Give (units): 0 111 to 150 Give (units): 0 151 to 200 Give (units): 2 201 to 250 Give (units): 4 251 to 300 Give (units): 6 301 to 350 Give (units): 8 Greater than 350 Give (units): 10 Call MD if Blood Glucose > : 350 Rx Instructions: SLIDING SCALE Saccharomyces boulardii 250 mg Capsule 250 mg PO BID oxycodone 10 mg Tablet 10 mg PO BEDTIME bupropion HCl 450 mg Tablet Extended Release 24 Hr 450 mg PO BEDTIME apixaban 5 mg Tablet 5 mg PO BID fluticasone propion-salmeterol [AirDuo RespiClick] 113-14 mcg/actuation aerosol powdr breath activated 1 inh inhalation BID Qty: 1 0RF amlodipine 5 mg Tablet 5 mg PO DAILY 30 Days Qty: 30 0RF Protocol: Hold for SBP< HOLD for SBP < : 90 carvedilol 6.25 mg Tablet 12.5 mg PO BID Rx Instructions: must administer with a meal/food aspirin 81 mg Tablet,Chewable 81 mg PO DAILY megestrol 400 mg/10 mL (10 mL) Suspension 40 mg PO Q8H oxycodone 10 mg tablet 10 mg PO Q8H PRN (Reason: Pain, Severe) bisacodyl 10 mg Suppository 10 mg ID DAILY PRN (Reason: Constipation) isosorbide mononitrate 60 mg tablet extended release 24 hr 1 tab PO DAILY Discontinued amoxicillin 500 mg Capsule 1,000 mg PO Q12H furosemide 80 mg Tablet 80 mg PO DAILY insulin lispro 100 unit/mL Insulin Pen 22 unit SUBCUT TIDAC insulin glargine 100 unit/mL (3 mL) Insulin Pen 52 unit SUBCUT DAILY potassium chloride 20 mEq Tablet Extended Release 20 meq PO DAILY No Action insulin glargine-yfgn 100 unit/mL solution subcut bupropion HCl 300 mg tablet extended release 24 hr 300 mg PO DAILY insulin lispro 100 unit/mL solution subcut megestrol 400 mg/10 mL (40 mg/mL) suspension 400 mg PO DAILY Discharge Orders: Discharge Order (Routine); Ordered 04/05/22 Ordered By: Alexander Baldwin Diet: Diabetic diet Activity on Discharge: As tolerated Stand Alone Forms: Patient Portal Discharge page Care Plan Goals: Full recovery from respiratory failure Health Concerns: chronic respiratory failure heart failure smiley renal failure Plan of Treatment: Continue Lasix at 40 daily Lantus has been changed to 45 units at bed time Lispro 22 untis tid ac stopped Potassium supplement not needed at this time Daily dressing change to heel wound To follow up with knee surgeon for sutures removal Assessment: as above Discharge Date/Time: 04/05/22 21:50
--- NOTE | 2022-04-05 12:52 | PC.NURSE ---
informed this AM of pt's BP, c/o heartburn and pain and covid swab for d/c. orders placed and meds administered as ordered. report given to Cyndee MUNGUIA. Informed vantage of pt's vitals and current assessment. patient informed of d/c. Iv and cardiac care nurse removed. all belongings at bedside. safety and fall precautions in place. call chun within reach.
[2022-04-05 13:12] LABS: COVID-19 Test Negative (Negative)
[2022-04-05] MEDS: Calcium Carbonate 750 MG TAB.CHEW PO (13:47)
[2022-04-05 16:04] LABS: Glucose, Whole Blood 168 mg/dL (60-115)
[2022-04-05 20:34] LABS: Glucose, Whole Blood 200 mg/dL (60-115)
[2022-04-05] MEDS: buPROPion HCl XL 150 MG TAB.ER.24H 450 MG PO (21:22)
[2022-04-05] MEDS: Atorvastatin Calcium 80 MG TABLET PO (21:22)
== END 2022-04-05 21:50 | disposition skilled nursing facility (03) | DRG 917 ==
LOC: HO.ED 19:56 → HO.EDOVER 20:10 → HO.ICU 20:47 → HO.IMC 03-28 15:41
PROVIDERS: Anesthesiology; Student in an Organized Health Care Education/Training Program; Admitting Provider Physician Assistant Medical; Emergency Provider Emergency Medicine; PCP Internal Medicine; Visit Provider Internal Medicine
DX: T40.601A Poisoning by unspecified narcotics, accidental (unintentional), initial encounter (principal); I50.33 Acute on chronic diastolic (congestive) heart failure; J96.01 Acute respiratory failure with hypoxia; J96.02 Acute respiratory failure with hypercapnia; E66.2 Morbid (severe) obesity with alveolar hypoventilation; Z68.44 Body mass index [BMI] 60.0-69.9, adult; L03.115 Cellulitis of right lower limb; N17.9 Acute kidney failure, unspecified; F11.20 Opioid dependence, uncomplicated; L97.412 Non-pressure chronic ulcer of right heel and midfoot with fat layer exposed; E87.5 Hyperkalemia; I34.0 Nonrheumatic mitral (valve) insufficiency; I11.0 Hypertensive heart disease with heart failure; I50.810 Right heart failure, unspecified; E11.621 Type 2 diabetes mellitus with foot ulcer; I95.2 Hypotension due to drugs; T50.1X5A Adverse effect of loop [high-ceiling] diuretics, initial encounter; T46.5X5A Adverse effect of other antihypertensive drugs, initial encounter; E11.65 Type 2 diabetes mellitus with hyperglycemia; L89.152 Pressure ulcer of sacral region, stage 2; I10 Essential (primary) hypertension; Z20.822 Contact with and (suspected) exposure to COVID-19; Z91.19 Patient's noncompliance with other medical treatment and regimen; Z86.711 Personal history of pulmonary embolism; Z71.3 Dietary counseling and surveillance; Z96.652 Presence of left artificial knee joint; Z91.040 Latex allergy status; Z88.6 Allergy status to analgesic agent; Z79.4 Long term (current) use of insulin; Z79.01 Long term (current) use of anticoagulants; Z79.51 Long term (current) use of inhaled steroids; Z79.899 Other long term (current) drug therapy
CPT/HCPCS: 36415; 36600; 71045; 73590; 73620; 80048; 80053; 80076; 80307; 81001; 82009; 82803; 82947; 83036; 83605; 83735; 83880; 84100; 84443; 84484; 85025; 85610; 86141; 87040; 87635; 93005; 93971; 94660; 96361; 96365; 96366; 96375; 99284; 99285; C1758; J0610; J0690; J0696; J1940; J2543; J3370

== ENCOUNTER 2022-05-27 13:04 | Outpatient (REF) | payer MEDICARE, OTHER, MEDICAID, SELFPAY ==
--- NOTE | ~2022-05-27 | US_ITS ---
EXAMINATION: NONINVASIVE ASSESSMENT OF THE ARTERIES OF BOTH LOWER EXTREMITIES INCLUDING PVR EXAM AND BILATERAL LOWER EXTREMITY DUPLEX. CLINICAL INFORMATION: Peripheral vascular disease COMPARISON: None TECHNIQUE: Ankle pulse volume recordings, ankle pressure measurements and ankle brachial indices were obtained of the lower extremity arterial system bilaterally in addition to duplex Doppler techniques with wave form analysis and measurement of velocities in the common femoral, profunda femoral, superficial femoral, popliteal, tibial and peroneal arteries. The study was performed only at rest. FINDINGS: RIGHT LEG 1. THE RIGHT ANKLE-BRACHIAL INDEX IS: 0.84 >0.97-1.25 = normal - no significant arterial disease 0.75-0.96 = mild peripheral arterial disease 0.5-0.74 = moderate peripheral arterial disease <0.50 = severe peripheral arterial disease <0.30 = critical arterial disease 2. SEGMENTAL PRESSURES (mmHg): Ankle: PT 134, DP 142 3. PVR WAVEFORMS: Ankle: Mildly abnormal 4. DIRECT DUPLEX: Common femoral artery: 200 cm/s, Multiphasic Profunda femoris artery: 109 cm/s, Multiphasic Superficial femoral artery (proximal): 190 cm/s, Multiphasic Superficial femoral artery (mid): 141 cm/s, Multiphasic Superficial femoral artery (distal): 119 cm/s, Multiphasic Proximal Popliteal artery: 177 cm/s, Multiphasic Mid posterior tibial artery: 154 cm/s, Multiphasic LEFT LE. THE LEFT ANKLE-BRACHIAL INDEX IS: 0.93 (higher of the DP/PT) >0.97-1.25 = normal - no significant arterial disease 0.75-0.96 = mild peripheral arterial disease 0.5-0.74 = moderate peripheral arterial disease <0.50 = severe peripheral arterial disease <0.30 = critical arterial disease 2. SEGMENTAL PRESSURES: Ankle: PT 146, DP 158 3. PVR WAVEFORMS: Ankle: Normal 4. DIRECT DUPLEX: Common femoral artery: 157 cm/s, Multiphasic Profunda femoris artery: 113 cm/s, Multiphasic Superficial femoral artery (proximal): 139 cm/s, Multiphasic Superficial femoral artery (mid): 145 cm/s, Multiphasic Superficial femoral artery (distal): 134 cm/s, Multiphasic Proximal Popliteal artery: 95 cm/s, Multiphasic Mid posterior tibial artery: 101 cm/s, Multiphasic US/US arterial duplex LE BI IMPRESSION: Right leg: Scattered areas of mild stenosis throughout the right lower extremity. Mild peripheral arterial disease by PHILIPPE. Left leg: No hemodynamically significant stenoses. Normal PHILIPPE.
== END 2022-05-27 13:05 | disposition home or self-care (01) ==
LOC: HO.US 13:04
PROVIDERS: Visit Provider Surgery Vascular Surgery
DX: I73.9 Peripheral vascular disease, unspecified (principal)
CPT/HCPCS: 93923; 93925

== ENCOUNTER 2022-07-11 22:02 | Emergency (ER) | payer OTHER, MEDICAID, SELFPAY ==
--- NOTE | ~2022-07-11 | XR_ITS ---
EXAMINATION: XR chest 1V CLINICAL INFORMATION: Reason for Exam ett placement and transvenous pacer COMPARISON: Chest radiograph 03/27/2022 TECHNIQUE: One view of the chest XR/XR chest 1V FINDINGS/IMPRESSION: * Exam is technically limited. A cardiac pacemaker lead is not identified in the expected region of the right ventricle. There is a wire overlying the right axilla of uncertain etiology, if this was the mechanism of access potentially could reflect a retracted pacemaker lead. Recommend correlation with clinical history. * Endotracheal tube tip terminates approximately 2 cm above the kyung. * Right internal jugular central venous catheter tip terminates in the right atrium. No pneumothorax. No pleural effusion. * Low lung volumes with bronchovascular crowding and streaky areas of atelectasis. * Cardiomediastinal silhouette is unchanged.
--- NOTE | 2022-07-11 08:53 | ECG_ITS ---
Test Reason : cp Blood Pressure : / mmHG Vent. Rate : 025 BPM Atrial Rate : 091 BPM P-R Int : 000 ms QRS Dur : 134 ms QT Int : 548 ms P-R-T Axes : 053 -40 022 degrees QTc Int : 353 ms Sinus rhythm with complete heart block and Idioventricular rhythm Left anterior fascicular block RSR' or QR pattern in V1 suggests right ventricular conduction delay Left ventricular hypertrophy with QRS widening ( R in aVL , [place] product ) Nonspecific T wave abnormality Abnormal ECG When compared with ECG of 27-MAR-2022 17:26, Idioventricular rhythm has replaced Sinus rhythm Vent. rate has decreased BY 50 BPM Left bundle branch block is no longer Present Referred By: Thais Nguyen Electronically Signed By:JANET AVILEZ MD
--- NOTE | 2022-07-11 22:09 | ED.SOB ---
HPI - SOB/Dyspnea General Chief Complaint: Arrhythmia/Palpitations <Thais Nguyen MD - Last Filed: 07/12/22 00:10> Stated Complaint: hypoxia/covid + <Thais Nguyen MD - Last Filed: 07/12/22 00:10> Time Seen by Provider: 07/11/22 22:09 <Thais Nguyen MD - Last Filed: 07/12/22 00:10> Source: EMS <Thais Nguyen MD - Last Filed: 07/12/22 00:10> Mode of arrival: EMS <Thais Nguyen MD - Last Filed: 07/12/22 00:10> Limitations: other ( unresponsive) <Thais Nguyen MD - Last Filed: 07/12/22 00:10> History of Present Illness HPI Narrative: patient comes to the emergency room via EMS from group home facility, patient came unresponsive. EMS reports that the patient's heart rate is in the low 20s, oxygen saturation in the low 70s, blood pressure in the low 60s, hypoglycemic, patient received D50 by EMS, also patient was given 2 mg of atropine without any significant response. Patient came with that due to resuscitate but do not intubate status. I called the patient's to wanted to make the patient full code. on arrival, EKG showed a third-degree block, patient was unresponsive, patient was intubated. according to the facility, patient recently tested positive for COVID-19 <Thais Nguyen MD - Last Filed: 07/12/22 00:10> Related Data Home Medications: Home Medications Medication Instructions Recorded Confirmed Saccharomyces boulardii 250 mg 250 mg PO BID 11/18/21 03/28/22 capsule acetaminophen 325 mg tablet 650 mg PO Q4H PRN Fever Or Pain 11/18/21 03/28/22 apixaban 5 mg tablet 5 mg PO BID 11/18/21 03/28/22 atorvastatin 80 mg tablet 80 mg PO BEDTIME 11/18/21 03/28/22 bupropion HCl 450 mg 24 hr tablet, 450 mg PO BEDTIME 11/18/21 03/28/22 extended release enalapril maleate 20 mg tablet 40 mg PO DAILY 11/18/21 03/28/22 ferrous sulfate 325 mg (65 mg 325 mg PO DAILY 11/18/21 03/28/22 iron) tablet gabapentin 300 mg capsule 300 mg PO DAILY@1200 11/18/21 03/28/22 gabapentin 300 mg capsule 600 mg PO BID 11/18/21 03/28/22 insulin lispro 100 unit/mL See Protocol subcut QIDACHS 11/18/21 03/28/22 subcutaneous pen lidocaine 4 % topical patch 1 patch topical DAILY 11/18/21 03/28/22 magnesium citrate 150 ml PO DAILY PRN Constipation 11/18/21 03/28/22 magnesium hydroxide 400 mg/5 mL 30 ml PO DAILY PRN Constipation 11/18/21 03/28/22 oral suspension (Milk of Magnesia) melatonin 3 mg tablet 3 mg PO BEDTIME 11/18/21 03/28/22 oxycodone 10 mg tablet 10 mg PO BEDTIME 11/18/21 03/28/22 polyethylene glycol 3350 17 gram 17 g PO DAILY PRN Constipation 11/18/21 03/28/22 oral powder packet (Miralax) sennosides 8.6 mg tablet (senna) 16.2 mg PO DAILY PRN Constipation 11/18/21 03/28/22 sertraline 100 mg tablet 200 mg PO DAILY 11/18/21 03/28/22 tizanidine 4 mg tablet 4 mg PO BEDTIME PRN Muscle Spasm 11/18/21 03/28/22 aspirin 81 mg chewable tablet 81 mg PO DAILY 01/05/22 03/28/22 bisacodyl 10 mg rectal suppository 10 mg NV DAILY PRN Constipation 01/05/22 03/28/22 carvedilol 6.25 mg tablet 12.5 mg PO BID 01/05/22 03/28/22 isosorbide mononitrate 60 mg 1 tab PO DAILY 01/05/22 03/28/22 tablet,extended release 24 hr megestrol 400 mg/10 mL (10 mL) 40 mg PO Q8H 01/05/22 03/28/22 oral suspension oxycodone 10 mg tablet 10 mg PO Q8H PRN Pain, Severe 01/05/22 03/28/22 bupropion HCl 300 mg 24 hr tablet, 300 mg PO DAILY 04/09/22 extended release insulin glargine-yfgn 100 unit/mL unit subcut 04/09/22 subcutaneous solution insulin lispro 100 unit/mL subcut 04/09/22 subcutaneous solution megestrol 400 mg/10 mL (40 mg/mL) 400 mg PO DAILY 04/09/22 oral suspension Previous Rx's Medication Instructions Recorded amlodipine 5 mg tablet 5 mg PO DAILY 30 days #30 tabs 11/26/21 fluticasone 113 mcg-salmeterol 14 1 inh inhalation BID #1 ea 11/26/21 mcg/actuation breath activated powdr (AirDuo RespiClick) furosemide 40 mg tablet 40 mg PO DAILY #30 tabs 04/05/22 insulin glargine 100 unit/mL 45 unit (0.45 mL) subcut DAILY #10 04/05/22 subcutaneous solution (Lantus mL U-100 Insulin) <Thais Nguyen MD - Last Filed: 07/12/22 00:10> Allergies/Adverse Reactions: Allergies Allergy/AdvReac Type Severity Reaction Status Date / Time latex Allergy Unknown Unknown Verified 06/06/22 11:21 adhesive tape AdvReac Unknown Unknown Verified 06/06/22 11:21 bupropion [From Wellbutrin] AdvReac Unknown Unknown Verified 06/06/22 11:21 ibuprofen AdvReac Unknown Unknown Verified 06/06/22 11:21 <Thais Nguyen MD - Last Filed: 07/12/22 00:10> Review of Systems Review of Systems: Yes Unobtainable due to mental condition <Thais Nguyen MD - Last Filed: 07/12/22 00:10> FORMERLY [facility], [facility] Past Medical History Medical History: Medical History Anemia Arthritis Atelectasis of both lungs CHF (congestive heart failure) Clostridium difficile infection Depression Diabetes mellitus, type 2 Diabetic ulcer of foot associated with diabetes mellitus due to underlying condition, with fat layer exposed Hypertension Hypoventilation associated with obesity syndrome Morbid obesity SMILEY (obstructive sleep apnea) Pulmonary embolism Respiratory failure with hypoxia and hypercapnia <Thais Nguyen MD - Last Filed: 07/12/22 00:10> Surgical History: Surgical History History of total knee replacement <Thais Nguyen MD - Last Filed: 07/12/22 00:10> Social History Social History: Social History Household Members: Unknown / Unable to assess Housing: Other Housing Other:: rehab facility Are you a primary career development consultant to a significant other at home: No Do you presently have visiting nurse or other home services: No Unable to assess alcohol history related to: Unknown Patient Tobacco Use Status: Tobacco use Unknown Substance Use Type: Unknown Advance Directives: No Advance Directives Information Provided: No service: No Current occupational status: disabled <Thais Nguyen MD - Last Filed: 07/12/22 00:10> Physical Exam Vital Signs: Vital Signs: Last Vital Signs Pulse 70 07/12/22 01:07 Resp 17 07/12/22 01:03 BP 172/127 H 07/12/22 01:07 Pulse Ox 90 L 07/12/22 01:03 O2 Del Method 07/12/22 01:03 FiO2 100 07/12/22 00:57 BMI result Body Mass Index 60.3 <Thais Nguyen MD - Last Filed: 07/12/22 00:10> Vital Signs: Last Vital Signs Pulse 70 07/12/22 01:07 Resp 17 07/12/22 01:03 BP 172/127 H 07/12/22 01:07 Pulse Ox 90 L 07/12/22 01:03 O2 Del Method 07/12/22 01:03 FiO2 100 07/12/22 00:57 BMI result Body Mass Index 60.3 <Garret Stevenson MD - Last Filed: 07/12/22 04:40> Appearance: Obtunded morbidly obese with shallow breathing Eyes: PERRL ENT: Pharynx normal. Oral Mucosa moist Neck: Normal inspection. Neck supple. CVS: Normal heart rate and rhythm. Pulses normal. Respiratory: Shallow breathing in obvious respiratory distress on non-rebreather Abdomen: Soft and nontender. Bowel sounds are present, no mass palpable, no CVA tenderness Skin: Skin warm and dry. Normal skin color. Normal skin turgor. Extremities: Chronic nonpitting leg edema. No calf tenderness Neuro: Obtunded moving all 4 extremities to painful stimuli GCS of 6 <Garret Stevenson MD - Last Filed: 07/12/22 04:40> Course Course Course Narrative: Patient was intubated, ketamine 500 mg was used for intubation transcutaneous pacing was attempted, it was unsuccessful. We had to insert a transvenous pacer. Patient was successfully paste, heart rate in the 70s, output 5, sensing 5 patient's blood pressure remain in the 70s systolic, Levophed was started. Levophed at max dose, blood pressure in the mid 80s, heart rate remains in the 70s with good capture, dopamine is being started per protocol all of the labs are pending after attempting spacer was inserted, EKG shows ventricular paced rhythm, with occasional PVCs, heart rate 76 patient's blood sugar was patient's blood glucose was checked, 52 despite multiple doses of D50. Patient received 2 more doses of D50. Also, patient was given glucagon in case she accidentally overdose with home medications, patient on carvedilol I discussed the patient with from the cardiac care unit at [facility], patient has been accepted, bed assignment pending. Patient's aware of the situation, now at bedside <Thais Nguyen MD - Last Filed: 07/12/22 00:10> MDM - SOB/Dyspnea Lab Data Result diagrams: : 07/11/22 23:30 07/11/22 23:30 <Thais Nguyen MD - Last Filed: 07/12/22 00:10> Labs: Lab Results 07/11/22 07/11/22 07/11/22 Range/Units 22:15 23:30 23:30 WBC 6.8 (4.8-10.8) X10*3/uL RBC 4.01 L (4.20-5.50) X10*6/uL Hgb 11.2 L (12.0-16.0) g/dl Hct 37.8 (37.0-47.0) % MCV 94.3 (80.0-98.0) fL MCH 27.9 (27.0-33.0) pg MCHC 29.6 L (31.0-35.0) g/dl RDW 16.0 (11.0-16.0) % Plt Count 276 (160-400) X10*3/uL MPV 10.3 (9.4-12.3) fL Immature Gran % (Auto) 0.1 (0.0-0.4) % Neut % (Auto) 73.6 H (45-73) % Lymph % (Auto) 16.3 L (20-40) % [place] % (Auto) 9.1 (2-11) % Eos % (Auto) 0.6 (0-4) % Baso % (Auto) 0.3 (0-2) % Lymph # (Auto) 1.1 L (1.2-4.9) X10*3/uL [place] # (Auto) 0.6 (0.1-1.2) X10*3/uL Eos # (Auto) 0.0 (0.0-0.4) X10*3/uL Baso # (Auto) 0.0 (0.0-0.2) X10*3/uL Abs Immat Gran (auto) 0.01 (0.00-0.03) X10*3/uL Absolute Neuts (auto) 5.0 (2.0-8.3) x10*3/uL Absolute Nucleated RBC 0.000 (0.0-0.012) X10*3/uL Nucleated RBC % (auto) 0.0 (0.0-0.2) /100WBC PT 18.4 H (10.0-13.1) SEC INR 1.6 H (0.9-1.1) VBG pH (7.32-7.43) VBG pCO2 mmHg VBG pO2 mmHg VBG HCO3 (22-26) mmol/L VBG O2 Saturation % VBG Base Excess mmol/L Sodium (135-145) mmol/L Potassium (3.3-5.1) mmol/L Chloride (96-108) mmol/L Carbon Dioxide (22-29) mmol/L Anion Gap (12-20) BUN (9-16) mg/dL Creatinine (0.5-1.4) mg/dL Estim Creat Clear Calc Estimated GFR POC Glucose 71 (60-115) mg/dL Random Glucose (60-115) mg/dL Lactic Acid (0.5-2.0) mmol/L Calcium (8.4-10.2) mg/dL Total Bilirubin (0.0-1.0) mg/dL AST (5-31) U/L ALT (0-31) U/L Alkaline Phosphatase (39-117) U/L Troponin I High Sens (<3.5-17.0) ng/L Total Protein (6.5-8.0) g/dL Albumin (3.5-5.0) g/dL COVID-19 (LIS) (Negative) COVID-19 Clin Com 07/11/22 07/11/22 07/11/22 Range/Units 23:30 23:30 23:30 WBC (4.8-10.8) X10*3/uL RBC (4.20-5.50) X10*6/uL Hgb (12.0-16.0) g/dl Hct (37.0-47.0) % MCV (80.0-98.0) fL MCH (27.0-33.0) pg MCHC (31.0-35.0) g/dl RDW (11.0-16.0) % Plt Count (160-400) X10*3/uL MPV (9.4-12.3) fL Immature Gran % (Auto) (0.0-0.4) % Neut % (Auto) (45-73) % Lymph % (Auto) (20-40) % [place] % (Auto) (2-11) % Eos % (Auto) (0-4) % Baso % (Auto) (0-2) % Lymph # (Auto) (1.2-4.9) X10*3/uL [place] # (Auto) (0.1-1.2) X10*3/uL Eos # (Auto) (0.0-0.4) X10*3/uL Baso # (Auto) (0.0-0.2) X10*3/uL Abs Immat Gran (auto) (0.00-0.03) X10*3/uL Absolute Neuts (auto) (2.0-8.3) x10*3/uL Absolute Nucleated RBC (0.0-0.012) X10*3/uL Nucleated RBC % (auto) (0.0-0.2) /100WBC PT (10.0-13.1) SEC INR (0.9-1.1) VBG pH (7.32-7.43) VBG pCO2 mmHg VBG pO2 mmHg VBG HCO3 (22-26) mmol/L VBG O2 Saturation % VBG Base Excess mmol/L Sodium 142 (135-145) mmol/L Potassium 5.8 H D (3.3-5.1) mmol/L Chloride 98 (96-108) mmol/L Carbon Dioxide 29 (22-29) mmol/L Anion Gap 21 H (12-20) BUN 103 H D (9-16) mg/dL Creatinine 3.53 H (0.5-1.4) mg/dL Estim Creat Clear Calc 28.7 Estimated GFR 13 POC Glucose (60-115) mg/dL Random Glucose 52 L* (60-115) mg/dL Lactic Acid 0.5 (0.5-2.0) mmol/L Calcium 9.2 (8.4-10.2) mg/dL Total Bilirubin 0.2 (0.0-1.0) mg/dL AST 19 D (5-31) U/L ALT 17 (0-31) U/L Alkaline Phosphatase 70 D (39-117) U/L Troponin I High Sens 15.5 D (<3.5-17.0) ng/L Total Protein 6.9 (6.5-8.0) g/dL Albumin 3.2 L (3.5-5.0) g/dL COVID-19 (LIS) (Negative) COVID-19 Clin Com 07/11/22 07/11/22 07/11/22 Range/Units 23:34 23:35 23:37 WBC (4.8-10.8) X10*3/uL RBC (4.20-5.50) X10*6/uL Hgb (12.0-16.0) g/dl Hct (37.0-47.0) % MCV (80.0-98.0) fL MCH (27.0-33.0) pg MCHC (31.0-35.0) g/dl RDW (11.0-16.0) % Plt Count (160-400) X10*3/uL MPV (9.4-12.3) fL Immature Gran % (Auto) (0.0-0.4) % Neut % (Auto) (45-73) % Lymph % (Auto) (20-40) % [place] % (Auto) (2-11) % Eos % (Auto) (0-4) % Baso % (Auto) (0-2) % Lymph # (Auto) (1.2-4.9) X10*3/uL [place] # (Auto) (0.1-1.2) X10*3/uL Eos # (Auto) (0.0-0.4) X10*3/uL Baso # (Auto) (0.0-0.2) X10*3/uL Abs Immat Gran (auto) (0.00-0.03) X10*3/uL Absolute Neuts (auto) (2.0-8.3) x10*3/uL Absolute Nucleated RBC (0.0-0.012) X10*3/uL Nucleated RBC % (auto) (0.0-0.2) /100WBC PT (10.0-13.1) SEC INR (0.9-1.1) VBG pH 7.22 L (7.32-7.43) VBG pCO2 82 mmHg VBG pO2 62 mmHg VBG HCO3 33 H (22-26) mmol/L VBG O2 Saturation 83.0 % VBG Base Excess 3.8 mmol/L Sodium (135-145) mmol/L Potassium (3.3-5.1) mmol/L Chloride (96-108) mmol/L Carbon Dioxide (22-29) mmol/L Anion Gap (12-20) BUN (9-16) mg/dL Creatinine (0.5-1.4) mg/dL Estim Creat Clear Calc Estimated GFR POC Glucose 54 L* (60-115) mg/dL Random Glucose (60-115) mg/dL Lactic Acid (0.5-2.0) mmol/L Calcium (8.4-10.2) mg/dL Total Bilirubin (0.0-1.0) mg/dL AST (5-31) U/L ALT (0-31) U/L Alkaline Phosphatase (39-117) U/L Troponin I High Sens (<3.5-17.0) ng/L Total Protein (6.5-8.0) g/dL Albumin (3.5-5.0) g/dL COVID-19 (LIS) Positive A (Negative) COVID-19 Clin Com See Note 07/12/22 Range/Units 00:14 WBC (4.8-10.8) X10*3/uL RBC (4.20-5.50) X10*6/uL Hgb (12.0-16.0) g/dl Hct (37.0-47.0) % MCV (80.0-98.0) fL MCH (27.0-33.0) pg MCHC (31.0-35.0) g/dl RDW (11.0-16.0) % Plt Count (160-400) X10*3/uL MPV (9.4-12.3) fL Immature Gran % (Auto) (0.0-0.4) % Neut % (Auto) (45-73) % Lymph % (Auto) (20-40) % [place] % (Auto) (2-11) % Eos % (Auto) (0-4) % Baso % (Auto) (0-2) % Lymph # (Auto) (1.2-4.9) X10*3/uL [place] # (Auto) (0.1-1.2) X10*3/uL Eos # (Auto) (0.0-0.4) X10*3/uL Baso # (Auto) (0.0-0.2) X10*3/uL Abs Immat Gran (auto) (0.00-0.03) X10*3/uL Absolute Neuts (auto) (2.0-8.3) x10*3/uL Absolute Nucleated RBC (0.0-0.012) X10*3/uL Nucleated RBC % (auto) (0.0-0.2) /100WBC PT (10.0-13.1) SEC INR (0.9-1.1) VBG pH (7.32-7.43) VBG pCO2 mmHg VBG pO2 mmHg VBG HCO3 (22-26) mmol/L VBG O2 Saturation % VBG Base Excess mmol/L Sodium (135-145) mmol/L Potassium (3.3-5.1) mmol/L Chloride (96-108) mmol/L Carbon Dioxide (22-29) mmol/L Anion Gap (12-20) BUN (9-16) mg/dL Creatinine (0.5-1.4) mg/dL Estim Creat Clear Calc Estimated GFR POC Glucose 115 (60-115) mg/dL Random Glucose (60-115) mg/dL Lactic Acid (0.5-2.0) mmol/L Calcium (8.4-10.2) mg/dL Total Bilirubin (0.0-1.0) mg/dL AST (5-31) U/L ALT (0-31) U/L Alkaline Phosphatase (39-117) U/L Troponin I High Sens (<3.5-17.0) ng/L Total Protein (6.5-8.0) g/dL Albumin (3.5-5.0) g/dL COVID-19 (LIS) (Negative) COVID-19 Clin Com <Thais Nguyen MD - Last Filed: 07/12/22 00:10> Lab Results 07/11/22 07/11/22 07/11/22 Range/Units 22:15 23:30 23:30 WBC 6.8 (4.8-10.8) X10*3/uL RBC 4.01 L (4.20-5.50) X10*6/uL Hgb 11.2 L (12.0-16.0) g/dl Hct 37.8 (37.0-47.0) % MCV 94.3 (80.0-98.0) fL MCH 27.9 (27.0-33.0) pg MCHC 29.6 L (31.0-35.0) g/dl RDW 16.0 (11.0-16.0) % Plt Count 276 (160-400) X10*3/uL MPV 10.3 (9.4-12.3) fL Immature Gran % (Auto) 0.1 (0.0-0.4) % Neut % (Auto) 73.6 H (45-73) % Lymph % (Auto) 16.3 L (20-40) % [place] % (Auto) 9.1 (2-11) % Eos % (Auto) 0.6 (0-4) % Baso % (Auto) 0.3 (0-2) % Lymph # (Auto) 1.1 L (1.2-4.9) X10*3/uL [place] # (Auto) 0.6 (0.1-1.2) X10*3/uL Eos # (Auto) 0.0 (0.0-0.4) X10*3/uL Baso # (Auto) 0.0 (0.0-0.2) X10*3/uL Abs Immat Gran (auto) 0.01 (0.00-0.03) X10*3/uL Absolute Neuts (auto) 5.0 (2.0-8.3) x10*3/uL Absolute Nucleated RBC 0.000 (0.0-0.012) X10*3/uL Nucleated RBC % (auto) 0.0 (0.0-0.2) /100WBC PT 18.4 H (10.0-13.1) SEC INR 1.6 H (0.9-1.1) VBG pH (7.32-7.43) VBG pCO2 mmHg VBG pO2 mmHg VBG HCO3 (22-26) mmol/L VBG O2 Saturation % VBG Base Excess mmol/L Sodium (135-145) mmol/L Potassium (3.3-5.1) mmol/L Chloride (96-108) mmol/L Carbon Dioxide (22-29) mmol/L Anion Gap (12-20) BUN (9-16) mg/dL Creatinine (0.5-1.4) mg/dL Estim Creat Clear Calc Estimated GFR POC Glucose 71 (60-115) mg/dL Random Glucose (60-115) mg/dL Lactic Acid (0.5-2.0) mmol/L Calcium (8.4-10.2) mg/dL Total Bilirubin (0.0-1.0) mg/dL AST (5-31) U/L ALT (0-31) U/L Alkaline Phosphatase (39-117) U/L Troponin I High Sens (<3.5-17.0) ng/L Total Protein (6.5-8.0) g/dL Albumin (3.5-5.0) g/dL COVID-19 (LIS) (Negative) COVID-19 Clin Com 07/11/22 07/11/22 07/11/22 Range/Units 23:30 23:30 23:30 WBC (4.8-10.8) X10*3/uL RBC (4.20-5.50) X10*6/uL Hgb (12.0-16.0) g/dl Hct (37.0-47.0) % MCV (80.0-98.0) fL MCH (27.0-33.0) pg MCHC (31.0-35.0) g/dl RDW (11.0-16.0) % Plt Count (160-400) X10*3/uL MPV (9.4-12.3) fL Immature Gran % (Auto) (0.0-0.4) % Neut % (Auto) (45-73) % Lymph % (Auto) (20-40) % [place] % (Auto) (2-11) % Eos % (Auto) (0-4) % Baso % (Auto) (0-2) % Lymph # (Auto) (1.2-4.9) X10*3/uL [place] # (Auto) (0.1-1.2) X10*3/uL Eos # (Auto) (0.0-0.4) X10*3/uL Baso # (Auto) (0.0-0.2) X10*3/uL Abs Immat Gran (auto) (0.00-0.03) X10*3/uL Absolute Neuts (auto) (2.0-8.3) x10*3/uL Absolute Nucleated RBC (0.0-0.012) X10*3/uL Nucleated RBC % (auto) (0.0-0.2) /100WBC PT (10.0-13.1) SEC INR (0.9-1.1) VBG pH (7.32-7.43) VBG pCO2 mmHg VBG pO2 mmHg VBG HCO3 (22-26) mmol/L VBG O2 Saturation % VBG Base Excess mmol/L Sodium 142 (135-145) mmol/L Potassium 5.8 H D (3.3-5.1) mmol/L Chloride 98 (96-108) mmol/L Carbon Dioxide 29 (22-29) mmol/L Anion Gap 21 H (12-20) BUN 103 H D (9-16) mg/dL Creatinine 3.53 H (0.5-1.4) mg/dL Estim Creat Clear Calc 28.7 Estimated GFR 13 POC Glucose (60-115) mg/dL Random Glucose 52 L* (60-115) mg/dL Lactic Acid 0.5 (0.5-2.0) mmol/L Calcium 9.2 (8.4-10.2) mg/dL Total Bilirubin 0.2 (0.0-1.0) mg/dL AST 19 D (5-31) U/L ALT 17 (0-31) U/L Alkaline Phosphatase 70 D (39-117) U/L Troponin I High Sens 15.5 D (<3.5-17.0) ng/L Total Protein 6.9 (6.5-8.0) g/dL Albumin 3.2 L (3.5-5.0) g/dL COVID-19 (LIS) (Negative) COVID-19 Clin Com 07/11/22 07/11/22 07/11/22 Range/Units 23:34 23:35 23:37 WBC (4.8-10.8) X10*3/uL RBC (4.20-5.50) X10*6/uL Hgb (12.0-16.0) g/dl Hct (37.0-47.0) % MCV (80.0-98.0) fL MCH (27.0-33.0) pg MCHC (31.0-35.0) g/dl RDW (11.0-16.0) % Plt Count (160-400) X10*3/uL MPV (9.4-12.3) fL Immature Gran % (Auto) (0.0-0.4) % Neut % (Auto) (45-73) % Lymph % (Auto) (20-40) % [place] % (Auto) (2-11) % Eos % (Auto) (0-4) % Baso % (Auto) (0-2) % Lymph # (Auto) (1.2-4.9) X10*3/uL [place] # (Auto) (0.1-1.2) X10*3/uL Eos # (Auto) (0.0-0.4) X10*3/uL Baso # (Auto) (0.0-0.2) X10*3/uL Abs Immat Gran (auto) (0.00-0.03) X10*3/uL Absolute Neuts (auto) (2.0-8.3) x10*3/uL Absolute Nucleated RBC (0.0-0.012) X10*3/uL Nucleated RBC % (auto) (0.0-0.2) /100WBC PT (10.0-13.1) SEC INR (0.9-1.1) VBG pH 7.22 L (7.32-7.43) VBG pCO2 82 mmHg VBG pO2 62 mmHg VBG HCO3 33 H (22-26) mmol/L VBG O2 Saturation 83.0 % VBG Base Excess 3.8 mmol/L Sodium (135-145) mmol/L Potassium (3.3-5.1) mmol/L Chloride (96-108) mmol/L Carbon Dioxide (22-29) mmol/L Anion Gap (12-20) BUN (9-16) mg/dL Creatinine (0.5-1.4) mg/dL Estim Creat Clear Calc Estimated GFR POC Glucose 54 L* (60-115) mg/dL Random Glucose (60-115) mg/dL Lactic Acid (0.5-2.0) mmol/L Calcium (8.4-10.2) mg/dL Total Bilirubin (0.0-1.0) mg/dL AST (5-31) U/L ALT (0-31) U/L Alkaline Phosphatase (39-117) U/L Troponin I High Sens (<3.5-17.0) ng/L Total Protein (6.5-8.0) g/dL Albumin (3.5-5.0) g/dL COVID-19 (LIS) Positive A (Negative) COVID-19 Clin Com See Note 07/12/22 Range/Units 00:14 WBC (4.8-10.8) X10*3/uL RBC (4.20-5.50) X10*6/uL Hgb (12.0-16.0) g/dl Hct (37.0-47.0) % MCV (80.0-98.0) fL MCH (27.0-33.0) pg MCHC (31.0-35.0) g/dl RDW (11.0-16.0) % Plt Count (160-400) X10*3/uL MPV (9.4-12.3) fL Immature Gran % (Auto) (0.0-0.4) % Neut % (Auto) (45-73) % Lymph % (Auto) (20-40) % [place] % (Auto) (2-11) % Eos % (Auto) (0-4) % Baso % (Auto) (0-2) % Lymph # (Auto) (1.2-4.9) X10*3/uL [place] # (Auto) (0.1-1.2) X10*3/uL Eos # (Auto) (0.0-0.4) X10*3/uL Baso # (Auto) (0.0-0.2) X10*3/uL Abs Immat Gran (auto) (0.00-0.03) X10*3/uL Absolute Neuts (auto) (2.0-8.3) x10*3/uL Absolute Nucleated RBC (0.0-0.012) X10*3/uL Nucleated RBC % (auto) (0.0-0.2) /100WBC PT (10.0-13.1) SEC INR (0.9-1.1) VBG pH (7.32-7.43) VBG pCO2 mmHg VBG pO2 mmHg VBG HCO3 (22-26) mmol/L VBG O2 Saturation % VBG Base Excess mmol/L Sodium (135-145) mmol/L Potassium (3.3-5.1) mmol/L Chloride (96-108) mmol/L Carbon Dioxide (22-29) mmol/L Anion Gap (12-20) BUN (9-16) mg/dL Creatinine (0.5-1.4) mg/dL Estim Creat Clear Calc Estimated GFR POC Glucose 115 (60-115) mg/dL Random Glucose (60-115) mg/dL Lactic Acid (0.5-2.0) mmol/L Calcium (8.4-10.2) mg/dL Total Bilirubin (0.0-1.0) mg/dL AST (5-31) U/L ALT (0-31) U/L Alkaline Phosphatase (39-117) U/L Troponin I High Sens (<3.5-17.0) ng/L Total Protein (6.5-8.0) g/dL Albumin (3.5-5.0) g/dL COVID-19 (LIS) (Negative) COVID-19 Clin Com <Garret Anwer Elva, MD - Last Filed: 07/12/22 04:40> Procedures Procedure Narrative Procedure Narrative: Transvenous cardiac pacing from the right Cordis in right IJ with good capture <Garret Stevenson MD - Last Filed: 07/12/22 04:40> Critical Care Time Critical Care Time Critical Care Time: Yes <Thais Nguyen MD - Last Filed: 07/12/22 00:10> Total Critical Care Time: 120 <Thais Nguyen MD - Last Filed: 07/12/22 00:10> Attestation: I have personally provided critical care time. Time includes review of lab data, radiology results, discussion with consultants, and monitoring for potential decompensation. Intervention performed as documented. <Thais Nguyen MD - Last Filed: 07/12/22 00:10> Discharge Plan Discharge Clinical Impression: Heart block AV third degree, Hypotension, Respiratory failure, Hypoglycemia <Thais Nguyen MD - Last Filed: 07/12/22 00:10> Patient Disposition: [facility] <Thais Nguyen MD - Last Filed: 07/12/22 00:10> Transfer Details: [facility] <Thais Nguyen MD - Last Filed: 07/12/22 00:10> [facility] <Garret Stevenson MD - Last Filed: 07/12/22 04:40> Prescriptions: No Action furosemide 40 mg Tablet 40 mg PO DAILY Qty: 30 0RF Protocol: Hold for SBP< HOLD for SBP < : 90 insulin glargine [Lantus U-100 Insulin] 100 unit/mL Solution 45 unit subcut DAILY Qty: 10 0RF atorvastatin 80 mg Tablet 80 mg PO BEDTIME sennosides [senna] 8.6 mg Tablet 16.2 mg PO DAILY PRN (Reason: Constipation) acetaminophen 325 mg Tablet 650 mg PO Q4H PRN (Reason: Fever Or Pain) lidocaine 4 % Adhesive Patch,Medicated 1 patch TOPICAL DAILY Rx Instructions: APPLY TO BACK polyethylene glycol 3350 [Miralax] 17 gram Powder In Packet 17 g PO DAILY PRN (Reason: Constipation) tizanidine 4 mg Tablet 4 mg PO BEDTIME PRN (Reason: Muscle Spasm) enalapril maleate 20 mg Tablet 40 mg PO DAILY sertraline 100 mg Tablet 200 mg PO DAILY melatonin 3 mg Tablet 3 mg PO BEDTIME magnesium hydroxide [Milk of Magnesia] 400 mg/5 mL Suspension 30 ml PO DAILY PRN (Reason: Constipation) ferrous sulfate 325 mg (65 mg iron) Tablet 325 mg PO DAILY gabapentin 300 mg Capsule 300 mg PO DAILY@1200 gabapentin 300 mg Capsule 600 mg PO BID magnesium citrate Solution 150 ml PO DAILY PRN (Reason: Constipation) insulin lispro 100 unit/mL Insulin Pen See Protocol SUBCUT [facility] Protocol: Insulin Correction Scale Less than or equal to 110 ---- Give (units): 0 111 to 150 Give (units): 0 151 to 200 Give (units): 2 201 to 250 Give (units): 4 251 to 300 Give (units): 6 301 to 350 Give (units): 8 Greater than 350 Give (units): 10 Call MD if Blood Glucose > : 350 Rx Instructions: SLIDING SCALE Saccharomyces boulardii 250 mg Capsule 250 mg PO BID oxycodone 10 mg Tablet 10 mg PO BEDTIME bupropion HCl 450 mg Tablet Extended Release 24 Hr 450 mg PO BEDTIME apixaban 5 mg Tablet 5 mg PO BID fluticasone propion-salmeterol [AirDuo RespiClick] 113-14 mcg/actuation aerosol powdr breath activated 1 inh inhalation BID Qty: 1 0RF amlodipine 5 mg Tablet 5 mg PO DAILY 30 Days Qty: 30 0RF Protocol: Hold for SBP< HOLD for SBP < : 90 carvedilol 6.25 mg Tablet 12.5 mg PO BID Rx Instructions: must administer with a meal/food aspirin 81 mg Tablet,Chewable 81 mg PO DAILY megestrol 400 mg/10 mL (10 mL) Suspension 40 mg PO Q8H oxycodone 10 mg tablet 10 mg PO Q8H PRN (Reason: Pain, Severe) bisacodyl 10 mg Suppository 10 mg NV DAILY PRN (Reason: Constipation) isosorbide mononitrate 60 mg tablet extended release 24 hr 1 tab PO DAILY insulin glargine-yfgn 100 unit/mL solution subcut bupropion HCl 300 mg tablet extended release 24 hr 300 mg PO DAILY insulin lispro 100 unit/mL solution subcut megestrol 400 mg/10 mL (40 mg/mL) suspension 400 mg PO DAILY <Thais Nguyen MD - Last Filed: 07/12/22 00:10> Interventions: Acute Care Transfer Worksheet (ED) Last Done: 07/12/22 02:30 <Thais Nguyen MD - Last Filed: 07/12/22 00:10>
[2022-07-11] MEDS: Atropine Sulfate 1 MG/10 ML SYRINGE IVPUSH (22:15)
[2022-07-11] MEDS: Calcium Chloride 1 GM/10 ML SYRINGE IVPUSH (22:20)
[2022-07-11 22:23] LABS: Glucose, Whole Blood 71 mg/dL (60-115)
[2022-07-11 22:29] VITALS: BP 123/56; PULSE 25; O2SAT 82
[2022-07-11 22:45] VITALS: BP 216/85; PULSE 24
--- NOTE | 2022-07-11 23:26 | ED.GENADULT ---
HPI - General Adult General Chief complaint: Arrhythmia/Palpitations Stated complaint: hypoxia/covid + Time Seen by Provider: 07/11/22 22:09 Source: EMS Mode of arrival: EMS Limitations: other ( unresponsive) History of Present Illness HPI narrative: patient came to the emergency room responsive, heart rate in the 20s, O2 in the 70s, low blood pressure in the 60s. Patient is known to have tested recently positive for COVID-19, coming from a [place] [facility] facility. EMS gave the patient 2 mg of atropine without any response. On arrival, EKG showed third-degree block, transcutaneous spacers were applied, no capture. Patient was given Levophed IV Related Data Home Medications Medication Instructions Recorded Confirmed Saccharomyces boulardii 250 mg 250 mg PO BID 11/18/21 03/28/22 capsule acetaminophen 325 mg tablet 650 mg PO Q4H PRN Fever Or Pain 11/18/21 03/28/22 apixaban 5 mg tablet 5 mg PO BID 11/18/21 03/28/22 atorvastatin 80 mg tablet 80 mg PO BEDTIME 11/18/21 03/28/22 bupropion HCl 450 mg 24 hr tablet, 450 mg PO BEDTIME 11/18/21 03/28/22 extended release enalapril maleate 20 mg tablet 40 mg PO DAILY 11/18/21 03/28/22 ferrous sulfate 325 mg (65 mg 325 mg PO DAILY 11/18/21 03/28/22 iron) tablet gabapentin 300 mg capsule 300 mg PO DAILY@1200 11/18/21 03/28/22 gabapentin 300 mg capsule 600 mg PO BID 11/18/21 03/28/22 insulin lispro 100 unit/mL See Protocol subcut QIDACHS 11/18/21 03/28/22 subcutaneous pen lidocaine 4 % topical patch 1 patch topical DAILY 11/18/21 03/28/22 magnesium citrate 150 ml PO DAILY PRN Constipation 11/18/21 03/28/22 magnesium hydroxide 400 mg/5 mL 30 ml PO DAILY PRN Constipation 11/18/21 03/28/22 oral suspension (Milk of Magnesia) melatonin 3 mg tablet 3 mg PO BEDTIME 11/18/21 03/28/22 oxycodone 10 mg tablet 10 mg PO BEDTIME 11/18/21 03/28/22 polyethylene glycol 3350 17 gram 17 g PO DAILY PRN Constipation 11/18/21 03/28/22 oral powder packet (Miralax) sennosides 8.6 mg tablet (senna) 16.2 mg PO DAILY PRN Constipation 11/18/21 03/28/22 sertraline 100 mg tablet 200 mg PO DAILY 11/18/21 03/28/22 tizanidine 4 mg tablet 4 mg PO BEDTIME PRN Muscle Spasm 11/18/21 03/28/22 aspirin 81 mg chewable tablet 81 mg PO DAILY 01/05/22 03/28/22 bisacodyl 10 mg rectal suppository 10 mg GA DAILY PRN Constipation 01/05/22 03/28/22 carvedilol 6.25 mg tablet 12.5 mg PO BID 01/05/22 03/28/22 isosorbide mononitrate 60 mg 1 tab PO DAILY 01/05/22 03/28/22 tablet,extended release 24 hr megestrol 400 mg/10 mL (10 mL) 40 mg PO Q8H 01/05/22 03/28/22 oral suspension oxycodone 10 mg tablet 10 mg PO Q8H PRN Pain, Severe 01/05/22 03/28/22 bupropion HCl 300 mg 24 hr tablet, 300 mg PO DAILY 04/09/22 extended release insulin glargine-yfgn 100 unit/mL unit subcut 04/09/22 subcutaneous solution insulin lispro 100 unit/mL subcut 04/09/22 subcutaneous solution megestrol 400 mg/10 mL (40 mg/mL) 400 mg PO DAILY 04/09/22 oral suspension Previous Rx's Medication Instructions Recorded amlodipine 5 mg tablet 5 mg PO DAILY 30 days #30 tabs 11/26/21 fluticasone 113 mcg-salmeterol 14 1 inh inhalation BID #1 ea 11/26/21 mcg/actuation breath activated powdr (AirDuo RespiClick) furosemide 40 mg tablet 40 mg PO DAILY #30 tabs 04/05/22 insulin glargine 100 unit/mL 45 unit (0.45 mL) subcut DAILY #10 04/05/22 subcutaneous solution (Lantus mL U-100 Insulin) Allergies Allergy/AdvReac Type Severity Reaction Status Date / Time latex Allergy Unknown Unknown Verified 06/06/22 11:21 adhesive tape AdvReac Unknown Unknown Verified 06/06/22 11:21 bupropion [From Wellbutrin] AdvReac Unknown Unknown Verified 06/06/22 11:21 ibuprofen AdvReac Unknown Unknown Verified 06/06/22 11:21 Review of Systems Review of Systems: Yes Other ( unresponsive) [facility] Past Medical History Medical History Anemia Arthritis Atelectasis of both lungs CHF (congestive heart failure) Clostridium difficile infection Depression Diabetes mellitus, type 2 Diabetic ulcer of foot associated with diabetes mellitus due to underlying condition, with fat layer exposed Hypertension Hypoventilation associated with obesity syndrome Morbid obesity SMILEY (obstructive sleep apnea) Pulmonary embolism Respiratory failure with hypoxia and hypercapnia Surgical History History of total knee replacement Social History Social History Household Members: Unknown / Unable to assess Housing: Other Housing Other:: rehab facility Are you a primary care companion to a significant other at home: No Do you presently have visiting nurse or other home services: No Unable to assess alcohol history related to: Unknown Patient Tobacco Use Status: Tobacco use Unknown Substance Use Type: Unknown Advance Directives: No Advance Directives Information Provided: No service: No Current occupational status: disabled Physical Exam ED Vital Signs: Vital Signs - 24 hr 07/11/22 23:27 07/11/22 22:45 07/11/22 23:41 Pulse Rate 70 24 L 70 Respiratory Rate 14 16 Blood Pressure 86/43 L 216/85 H 80/51 L Pulse Oximetry 98 95 Oxygen Delivery Method Mechanical Ventilation Mechanical Ventilation Fraction of Inspired Oxygen 100 07/11/22 23:55 07/12/22 00:05 07/12/22 00:08 Pulse Rate 70 Respiratory Rate 16 Blood Pressure 85/41 L 136/68 239/107 H Pulse Oximetry 90 L Oxygen Delivery Method Mechanical Ventilation Fraction of Inspired Oxygen 100 07/12/22 00:14 07/12/22 00:24 07/12/22 00:29 Pulse Rate 70 70 Respiratory Rate 17 Blood Pressure 239/106 H 123/79 147/71 H Pulse Oximetry 89 L Oxygen Delivery Method Mechanical Ventilation Fraction of Inspired Oxygen 07/12/22 00:26 Pulse Rate Respiratory Rate Blood Pressure Pulse Oximetry Oxygen Delivery Method Fraction of Inspired Oxygen 100 BMI result Body Mass Index 60.3 Course Course Course Narrative: patient was intubated, ETT size 7.5 500 mg of ketamine were used to the potential of this being a difficult intubation patient currently sedated with fentanyl. patient's blood pressure has been controlled with Levophed and dopamine on arrival, patient received calcium chloride 1 amp, patient was furthermore given Glucagon patient is doing well on a fentanyl drip Procedures Central Line Placement Right IJ: Time Out Performed: Yes Patient Placed on Monitor/Pulse Ox: Yes MD Prep: mask, gown and gloves Central Line Prep: Chlorhexidine scrub Ultrasound Used for Placement: Yes Central Line Lumen Inserted: single ( Cortis for transvenous pacer) Post Procedure: sutured in place Post Procedure X-Ray: tip of catheter in good position and no pneumothorax seen Patient Tolerated Procedure: well Intubation sedative: Ketamine Mg Given: 500 Laryngoscope: other ( GlideScope) ET Tube Size: 7.5 ET Tube Uncuffed: No Tube Secured Depth (cm): 25 Tube Secured Location: lips Tube Placement Confirmation: visualized tube passing through cords, equal breath sounds bilaterally, no breath sounds over epigastrium and confirmation by capnometry Patient Tolerated Procedure: well and no complications Intubation Complications: none Medical Decision Making Lab Data Result diagrams: 07/11/22 23:30 07/11/22 23:30 Labs: Lab Results 07/11/22 07/11/22 07/11/22 Range/Units 22:15 23:30 23:30 WBC 6.8 (4.8-10.8) X10*3/uL RBC 4.01 L (4.20-5.50) X10*6/uL Hgb 11.2 L (12.0-16.0) g/dl Hct 37.8 (37.0-47.0) % MCV 94.3 (80.0-98.0) fL MCH 27.9 (27.0-33.0) pg MCHC 29.6 L (31.0-35.0) g/dl RDW 16.0 (11.0-16.0) % Plt Count 276 (160-400) X10*3/uL MPV 10.3 (9.4-12.3) fL Immature Gran % (Auto) 0.1 (0.0-0.4) % Neut % (Auto) 73.6 H (45-73) % Lymph % (Auto) 16.3 L (20-40) % [place] % (Auto) 9.1 (2-11) % Eos % (Auto) 0.6 (0-4) % Baso % (Auto) 0.3 (0-2) % Lymph # (Auto) 1.1 L (1.2-4.9) X10*3/uL [place] # (Auto) 0.6 (0.1-1.2) X10*3/uL Eos # (Auto) 0.0 (0.0-0.4) X10*3/uL Baso # (Auto) 0.0 (0.0-0.2) X10*3/uL Abs Immat Gran (auto) 0.01 (0.00-0.03) X10*3/uL Absolute Neuts (auto) 5.0 (2.0-8.3) x10*3/uL Absolute Nucleated RBC 0.000 (0.0-0.012) X10*3/uL Nucleated RBC % (auto) 0.0 (0.0-0.2) /100WBC PT 18.4 H (10.0-13.1) SEC INR 1.6 H (0.9-1.1) VBG pH (7.32-7.43) VBG pCO2 mmHg VBG pO2 mmHg VBG HCO3 (22-26) mmol/L VBG O2 Saturation % VBG Base Excess mmol/L Sodium (135-145) mmol/L Potassium (3.3-5.1) mmol/L Chloride (96-108) mmol/L Carbon Dioxide (22-29) mmol/L Anion Gap (12-20) BUN (9-16) mg/dL Creatinine (0.5-1.4) mg/dL Estim Creat Clear Calc Estimated GFR POC Glucose 71 (60-115) mg/dL Random Glucose (60-115) mg/dL Lactic Acid (0.5-2.0) mmol/L Calcium (8.4-10.2) mg/dL Total Bilirubin (0.0-1.0) mg/dL AST (5-31) U/L ALT (0-31) U/L Alkaline Phosphatase (39-117) U/L Troponin I High Sens (<3.5-17.0) ng/L Total Protein (6.5-8.0) g/dL Albumin (3.5-5.0) g/dL COVID-19 (LIS) (Negative) COVID-19 Clin Com 07/11/22 07/11/22 07/11/22 Range/Units 23:30 23:30 23:30 WBC (4.8-10.8) X10*3/uL RBC (4.20-5.50) X10*6/uL Hgb (12.0-16.0) g/dl Hct (37.0-47.0) % MCV (80.0-98.0) fL MCH (27.0-33.0) pg MCHC (31.0-35.0) g/dl RDW (11.0-16.0) % Plt Count (160-400) X10*3/uL MPV (9.4-12.3) fL Immature Gran % (Auto) (0.0-0.4) % Neut % (Auto) (45-73) % Lymph % (Auto) (20-40) % [place] % (Auto) (2-11) % Eos % (Auto) (0-4) % Baso % (Auto) (0-2) % Lymph # (Auto) (1.2-4.9) X10*3/uL [place] # (Auto) (0.1-1.2) X10*3/uL Eos # (Auto) (0.0-0.4) X10*3/uL Baso # (Auto) (0.0-0.2) X10*3/uL Abs Immat Gran (auto) (0.00-0.03) X10*3/uL Absolute Neuts (auto) (2.0-8.3) x10*3/uL Absolute Nucleated RBC (0.0-0.012) X10*3/uL Nucleated RBC % (auto) (0.0-0.2) /100WBC PT (10.0-13.1) SEC INR (0.9-1.1) VBG pH (7.32-7.43) VBG pCO2 mmHg VBG pO2 mmHg VBG HCO3 (22-26) mmol/L VBG O2 Saturation % VBG Base Excess mmol/L Sodium 142 (135-145) mmol/L Potassium 5.8 H D (3.3-5.1) mmol/L Chloride 98 (96-108) mmol/L Carbon Dioxide 29 (22-29) mmol/L Anion Gap 21 H (12-20) BUN 103 H D (9-16) mg/dL Creatinine 3.53 H (0.5-1.4) mg/dL Estim Creat Clear Calc 28.7 Estimated GFR 13 POC Glucose (60-115) mg/dL Random Glucose 52 L* (60-115) mg/dL Lactic Acid 0.5 (0.5-2.0) mmol/L Calcium 9.2 (8.4-10.2) mg/dL Total Bilirubin 0.2 (0.0-1.0) mg/dL AST 19 D (5-31) U/L ALT 17 (0-31) U/L Alkaline Phosphatase 70 D (39-117) U/L Troponin I High Sens 15.5 D (<3.5-17.0) ng/L Total Protein 6.9 (6.5-8.0) g/dL Albumin 3.2 L (3.5-5.0) g/dL COVID-19 (LIS) (Negative) COVID-19 Clin Com 07/11/22 07/11/22 07/11/22 Range/Units 23:34 23:35 23:37 WBC (4.8-10.8) X10*3/uL RBC (4.20-5.50) X10*6/uL Hgb (12.0-16.0) g/dl Hct (37.0-47.0) % MCV (80.0-98.0) fL MCH (27.0-33.0) pg MCHC (31.0-35.0) g/dl RDW (11.0-16.0) % Plt Count (160-400) X10*3/uL MPV (9.4-12.3) fL Immature Gran % (Auto) (0.0-0.4) % Neut % (Auto) (45-73) % Lymph % (Auto) (20-40) % [place] % (Auto) (2-11) % Eos % (Auto) (0-4) % Baso % (Auto) (0-2) % Lymph # (Auto) (1.2-4.9) X10*3/uL [place] # (Auto) (0.1-1.2) X10*3/uL Eos # (Auto) (0.0-0.4) X10*3/uL Baso # (Auto) (0.0-0.2) X10*3/uL Abs Immat Gran (auto) (0.00-0.03) X10*3/uL Absolute Neuts (auto) (2.0-8.3) x10*3/uL Absolute Nucleated RBC (0.0-0.012) X10*3/uL Nucleated RBC % (auto) (0.0-0.2) /100WBC PT (10.0-13.1) SEC INR (0.9-1.1) VBG pH 7.22 L (7.32-7.43) VBG pCO2 82 mmHg VBG pO2 62 mmHg VBG HCO3 33 H (22-26) mmol/L VBG O2 Saturation 83.0 % VBG Base Excess 3.8 mmol/L Sodium (135-145) mmol/L Potassium (3.3-5.1) mmol/L Chloride (96-108) mmol/L Carbon Dioxide (22-29) mmol/L Anion Gap (12-20) BUN (9-16) mg/dL Creatinine (0.5-1.4) mg/dL Estim Creat Clear Calc Estimated GFR POC Glucose 54 L* (60-115) mg/dL Random Glucose (60-115) mg/dL Lactic Acid (0.5-2.0) mmol/L Calcium (8.4-10.2) mg/dL Total Bilirubin (0.0-1.0) mg/dL AST (5-31) U/L ALT (0-31) U/L Alkaline Phosphatase (39-117) U/L Troponin I High Sens (<3.5-17.0) ng/L Total Protein (6.5-8.0) g/dL Albumin (3.5-5.0) g/dL COVID-19 (LIS) Positive A (Negative) COVID-19 Clin Com See Note 07/12/22 Range/Units 00:14 WBC (4.8-10.8) X10*3/uL RBC (4.20-5.50) X10*6/uL Hgb (12.0-16.0) g/dl Hct (37.0-47.0) % MCV (80.0-98.0) fL MCH (27.0-33.0) pg MCHC (31.0-35.0) g/dl RDW (11.0-16.0) % Plt Count (160-400) X10*3/uL MPV (9.4-12.3) fL Immature Gran % (Auto) (0.0-0.4) % Neut % (Auto) (45-73) % Lymph % (Auto) (20-40) % [place] % (Auto) (2-11) % Eos % (Auto) (0-4) % Baso % (Auto) (0-2) % Lymph # (Auto) (1.2-4.9) X10*3/uL [place] # (Auto) (0.1-1.2) X10*3/uL Eos # (Auto) (0.0-0.4) X10*3/uL Baso # (Auto) (0.0-0.2) X10*3/uL Abs Immat Gran (auto) (0.00-0.03) X10*3/uL Absolute Neuts (auto) (2.0-8.3) x10*3/uL Absolute Nucleated RBC (0.0-0.012) X10*3/uL Nucleated RBC % (auto) (0.0-0.2) /100WBC PT (10.0-13.1) SEC INR (0.9-1.1) VBG pH (7.32-7.43) VBG pCO2 mmHg VBG pO2 mmHg VBG HCO3 (22-26) mmol/L VBG O2 Saturation % VBG Base Excess mmol/L Sodium (135-145) mmol/L Potassium (3.3-5.1) mmol/L Chloride (96-108) mmol/L Carbon Dioxide (22-29) mmol/L Anion Gap (12-20) BUN (9-16) mg/dL Creatinine (0.5-1.4) mg/dL Estim Creat Clear Calc Estimated GFR POC Glucose 115 (60-115) mg/dL Random Glucose (60-115) mg/dL Lactic Acid (0.5-2.0) mmol/L Calcium (8.4-10.2) mg/dL Total Bilirubin (0.0-1.0) mg/dL AST (5-31) U/L ALT (0-31) U/L Alkaline Phosphatase (39-117) U/L Troponin I High Sens (<3.5-17.0) ng/L Total Protein (6.5-8.0) g/dL Albumin (3.5-5.0) g/dL COVID-19 (LIS) (Negative) COVID-19 Clin Com Imaging Data Chest x-ray: Radiologist's impression: FINDINGS/IMPRESSION: ? *? Exam is technically limited. A cardiac pacemaker lead is not identified in the expected region of the right ventricle. There is a wire overlying the right axilla of uncertain etiology, if this was the mechanism of access potentially could reflect a retracted pacemaker lead. Recommend correlation with clinical history. ? *? Endotracheal tube tip terminates approximately 2 cm above the kyung. ? *? Right internal jugular central venous catheter tip terminates in the right atrium. No pneumothorax. No pleural effusion. ? *? Low lung volumes with bronchovascular crowding and streaky areas of atelectasis. ? *? Cardiomediastinal silhouette is unchanged. ? Discharge Plan Discharge Clinical Impression: Heart block AV third degree, Hypotension, Respiratory failure, Hypoglycemia Patient Disposition: [facility] Transfer Details: [facility] CCU Prescriptions: No Action furosemide 40 mg Tablet 40 mg PO DAILY Qty: 30 0RF Protocol: Hold for SBP< HOLD for SBP < : 90 insulin glargine [Lantus U-100 Insulin] 100 unit/mL Solution 45 unit subcut DAILY Qty: 10 0RF atorvastatin 80 mg Tablet 80 mg PO BEDTIME sennosides [senna] 8.6 mg Tablet 16.2 mg PO DAILY PRN (Reason: Constipation) acetaminophen 325 mg Tablet 650 mg PO Q4H PRN (Reason: Fever Or Pain) lidocaine 4 % Adhesive Patch,Medicated 1 patch TOPICAL DAILY Rx Instructions: APPLY TO BACK polyethylene glycol 3350 [Miralax] 17 gram Powder In Packet 17 g PO DAILY PRN (Reason: Constipation) tizanidine 4 mg Tablet 4 mg PO BEDTIME PRN (Reason: Muscle Spasm) enalapril maleate 20 mg Tablet 40 mg PO DAILY sertraline 100 mg Tablet 200 mg PO DAILY melatonin 3 mg Tablet 3 mg PO BEDTIME magnesium hydroxide [Milk of Magnesia] 400 mg/5 mL Suspension 30 ml PO DAILY PRN (Reason: Constipation) ferrous sulfate 325 mg (65 mg iron) Tablet 325 mg PO DAILY gabapentin 300 mg Capsule 300 mg PO DAILY@1200 gabapentin 300 mg Capsule 600 mg PO BID magnesium citrate Solution 150 ml PO DAILY PRN (Reason: Constipation) insulin lispro 100 unit/mL Insulin Pen See [facility] Protocol: Insulin Correction Scale Less than or equal to 110 ---- Give (units): 0 111 to 150 Give (units): 0 151 to 200 Give (units): 2 201 to 250 Give (units): 4 251 to 300 Give (units): 6 301 to 350 Give (units): 8 Greater than 350 Give (units): 10 Call MD if Blood Glucose > : 350 Rx Instructions: SLIDING SCALE Saccharomyces boulardii 250 mg Capsule 250 mg PO BID oxycodone 10 mg Tablet 10 mg PO BEDTIME bupropion HCl 450 mg Tablet Extended Release 24 Hr 450 mg PO BEDTIME apixaban 5 mg Tablet 5 mg PO BID fluticasone propion-salmeterol [AirDuo RespiClick] 113-14 mcg/actuation aerosol powdr breath activated 1 inh inhalation BID Qty: 1 0RF amlodipine 5 mg Tablet 5 mg PO DAILY 30 Days Qty: 30 0RF Protocol: Hold for SBP< HOLD for SBP < : 90 carvedilol 6.25 mg Tablet 12.5 mg PO BID Rx Instructions: must administer with a meal/food aspirin 81 mg Tablet,Chewable 81 mg PO DAILY megestrol 400 mg/10 mL (10 mL) Suspension 40 mg PO Q8H oxycodone 10 mg tablet 10 mg PO Q8H PRN (Reason: Pain, Severe) bisacodyl 10 mg Suppository 10 mg GA DAILY PRN (Reason: Constipation) isosorbide mononitrate 60 mg tablet extended release 24 hr 1 tab PO DAILY insulin glargine-yfgn 100 unit/mL solution subcut bupropion HCl 300 mg tablet extended release 24 hr 300 mg PO DAILY insulin lispro 100 unit/mL solution subcut megestrol 400 mg/10 mL (40 mg/mL) suspension 400 mg PO DAILY
[2022-07-11 23:27] VITALS: BP 86/43; PULSE 70; RESP 14; O2SAT 98
--- NOTE | 2022-07-11 23:32 | PC.NURSE ---
2210GIVEN ATROPINE 1MG WITH NO EFFFECT 2230- KETAMINE 500MG IVP ORDERED TO PREP FOR ETT PLACEMENT 2232 25 AT THE LIP BY MD BARCENAS GIVEN CALC GLUC 1G.
[2022-07-11 23:37] VITALS: BMI 60.3
--- NOTE | 2022-07-11 23:40 | PC.NURSE ---
2241 SWAN ZUHAIR INSERTION, 100MCG FENTANYL, 2MG VERSED GIVEN IVP PER V.O. CAPTURING 70BPM AT 2320
[2022-07-11 23:41] VITALS: BP 80/51; PULSE 70; RESP 16; O2SAT 95
[2022-07-11 23:41] LABS: Glucose, Whole Blood 54 mg/dL (60-115)
[2022-07-11] MEDS: Dextrose 50 % 25 GM/50 ML SYRINGE IVPUSH (23:42)
--- NOTE | 2022-07-11 23:47 | PC.NURSE ---
TRANSVENOUS PACER AT RATE OF 70 OUTPUT 5.0, SENSE 5.0
[2022-07-11 23:54] LABS: MANUAL DIFF FLAG NO
[2022-07-11 23:55] VITALS: BP 85/41
[2022-07-11 23:57] LABS: Venous Blood Gas Refer to POC result
[2022-07-11 23:58] LABS: VBG Base Excess 3.8 mmol/L; VBG HCO3 33 mmol/L (22-26); VBG pCO2 82 mmHg; VBG pH 7.22 (7.32-7.43); VBG pO2 62 mmHg
[2022-07-11 23:59] LABS: COVID-19 Test Positive (Negative)
[2022-07-12] VITALS (12 sets, daily range): BP systolic 123–239; BP diastolic 68–127; PULSE 70; RESP 14–17; TEMP 35.3; O2SAT 88–90
[2022-07-12] LABS: Basophils Percent Auto 0.3 % (0-2); Eosinophils Percent Auto 0.6 % (0-4); Hematocrit 37.8 % (37.0-47.0); Hemoglobin 11.2 g/dl (12.0-16.0); Imm Gran Abs Auto 0.01 X10*3/uL (0.00-0.03); Imm Gran Pct Auto 0.1 % (0.0-0.4); Lymphocytes Absolute Auto 1.1 X10*3/uL (1.2-4.9); Lymphocytes Percent Auto 16.3 % (20-40); Mean Corpuscular HGB Conc 29.6 g/dl (31.0-35.0); Mean Corpuscular Hemoglobin 27.9 pg (27.0-33.0); Mean Corpuscular Volume 94.3 fL (80.0-98.0); Mean Platelet Volume 10.3 fL (9.4-12.3); Monocytes Absolute Auto 0.6 X10*3/uL (0.1-1.2); Monocytes Percent Auto 9.1 % (2-11); Neutrophils Percent Auto 73.6 % (45-73); Platelet Count 276 X10*3/uL (160-400); Red Blood Count 4.01 X10*6/uL (4.20-5.50); White Blood Count 6.8 X10*3/uL (4.8-10.8)
[2022-07-12] MEDS: DOPamine HCL/D5W 400 MG/250 ML PLAST..BAG 33.75 MG IVCONT
--- NOTE | 2022-07-12 00:03 | PC.NURSE ---
call out to [facility] transfer line per Dr Nguyen [phone]. Awaiting call back. [facility] transfer line calls back at [phone] with bed placement.Pt going to [facility] M3 ROOM 118. Number for nurse to nurse is [phone], Dr Tse accepting.
[2022-07-12 00:10] LABS: INTERNATIONAL NORM RATIO 1.6 (0.9-1.1); Lactic Acid 0.5 mmol/L (0.5-2.0); Prothrombin Time 18.4 SEC (10.0-13.1)
[2022-07-12 00:18] LABS: Troponin-I High Sensitivity 15.5 ng/L (<3.5-17.0)
[2022-07-12 00:18] LABS: Glucose, Whole Blood 115 mg/dL (60-115)
--- NOTE | 2022-07-12 00:18 | PC.NURSE ---
[facility] ambulance booked with [facility], awaiting call back with transport confirmation.
[2022-07-12 00:20] LABS: Alanine Aminotransferase 17 U/L (0-31); Albumin Level 3.2 g/dL (3.5-5.0); Alkaline Phosphatase 70 U/L (39-117); Anion Gap 21 (12-20); Aspartate Amino Transferase 19 U/L (5-31); Bilirubin Total 0.2 mg/dL (0.0-1.0); Blood Urea Nitrogen 103 mg/dL (9-16); Calcium 9.2 mg/dL (8.4-10.2); Carbon Dioxide 29 mmol/L (22-29); Chloride 98 mmol/L (96-108); Creatinine Clr Calc Pharmacy 28.7; Estimated Glomerular Filt Rate 13; Potassium 5.8 mmol/L (3.3-5.1); Sodium 142 mmol/L (135-145); Total Protein 6.9 g/dL (6.5-8.0)
[2022-07-12 00:21] LABS: Glucose Random 52 mg/dL (60-115)
--- NOTE | 2022-07-12 00:44 | PC.NURSE ---
[facility] calls back at 0030, unable to transport. Call placed to [facility] for transport. [facility] accepts transport at 0045, ETA 30-40 minutes.
--- NOTE | 2022-07-12 01:23 | PC.NURSE ---
[facility] arrives to transport pt at 0115.
--- NOTE | 2022-07-12 02:08 | PC.NURSE ---
The pt presented to the ED via EMS from a local SNF after being found hypoglycemic, minimally responsive, hypotensive and bradycardic with a HR in the 20's. EMS administered 2mg Atropine en route without a response. On arrival pt was immediately greeted by RN's and MD Nguyen. Pt was placed on all bedside monitors and found to be bradycardic with a HR in the 20's. IV access had been obtained prior to arrival and Atropine 1mg was given without any change in her heart rate. Per request Wendy SNOWDEN the pt was placed on the Zoll external pacer and, while paced, the pt was intubated by Wendy SNOWDEN without difficulty. A 7.5 ETtube was placed at the 25cm lip samuel. While intubation was occurring nursing was able to initiate a Levophed gtt for BP support as the pt's BP was 60's systolically. The decision was then made to place a transvenous pacer via R IJ. After nursing was able to locate everything needed to place the pacemaker and pace transvenously (temporary pacer came from ICU) the R IJ temporary pacer was then placed by Wendy SNOWDEN and Mita SNOWDEN and the pt was paced at a rate of 70 with an output of 5 and sense of 5. As the pt began to move her arms and ocampo the vent the decision was made to initiate a Fentanyl gtt for sedation. The pt required 200mcg/hr of Fentanyl to remain sedated. The pts BP was not improving with a Levophed gtt and, per request Wendy SNOWDEN, Dopamine was also initiated. Shortly after initiating Dopamine, however, she briefly became very hypertensive. Dopamine was D/C'd and Levophed was weened to a dose of 0.05 mcg/kg/min (weight 181kg) until her BP became WNL. The decision was made to transfer to [facility] critical care transport arrived, placed pt on their Lifepak and ventilator, they D/C'd the Fentanyl gtt and initiated a Propofol gtt and continued the Levophed infusion. Nursing report was given to NILDA Rey on M3 at [facility] ([phone])
== END 2022-07-12 02:30 | disposition short-term general hospital (02) ==
PROVIDERS: Emergency Provider Emergency Medicine
DX: I44.2 Atrioventricular block, complete (principal); U07.1 COVID-19; R00.2 Palpitations; I95.9 Hypotension, unspecified; E11.649 Type 2 diabetes mellitus with hypoglycemia without coma; J96.90 Respiratory failure, unspecified, unspecified whether with hypoxia or hypercapnia; Z79.899 Other long term (current) drug therapy; Z79.4 Long term (current) use of insulin
CPT/HCPCS: 36415; 71045; 80053; 82803; 82947; 83605; 84484; 85025; 85610; 87635; 93005; 94002; 96374; 96375; 99285; J0461; J1265; J1610; J2250; J3010

== ENCOUNTER 2022-10-09 00:10 | Inpatient (IN) | payer OTHER, MEDICARE, MEDICAID, SELFPAY ==
[2022-10-09] VITALS (21 sets, daily range): BP systolic 128–175; BP diastolic 58–88; PULSE 63–91; RESP 16–26; TEMP 36.4–37.5; O2SAT 81–99; BMI 53.5; BMI 52.4
--- NOTE | ~2022-10-09 | CT_ITS ---
EXAMINATION: CT CHEST WITHOUT CONTRAST CLINICAL INFORMATION: Respiratory failure COMPARISON: Chest radiograph earlier today and CT chest 11/18/2021 TECHNIQUE: Multidetector volumetric CT imaging of the chest was done. Axial MIP volume rendering provided. Sagittal and coronal reformatted images were obtained. This CT examination was performed using dose optimization techniques as appropriate, variously including the following: *Automated exposure control *Adjustment of mA and/or kV according to patient size (this includes techniques or standardized protocols for targeted exams where dose is matched to indication/reason for exam; i.e. extremities or head) *Use of iterative reconstruction technique DLP: 789 mGy-cm FINDINGS: LUNGS AND PLEURA: Bibasilar atelectasis/consolidation is present. Trace pleural effusions are seen bilaterally. Density seen superior to esophageal recess in the right lung medially abutting the mediastinum could represent adenopathy or atelectasis. Assessment is difficult without IV contrast. Similar findings were present on 11/18/2021, but worse. MEDIASTINUM: Mild cardiac enlargement. A left chest wall bipolar pacemaker is again seen. CORONARY ARTERY CALCIFICATION: None visualized on this study. AXILLA: No lymphadenopathy. UPPER ABDOMEN: Partially imaged left superior pole renal mass which measures water density at the time of the 2021 CT scan. Artifact is present interfering with Hounsfield units on the current study. OSSEOUS STRUCTURES: Left shoulder prosthesis CT/CT chest wo IV con IMPRESSION: Bibasilar atelectasis/consolidation with trace pleural effusions. Unchanged density abutting the superior mediastinum on the right could be atelectasis or possibly adenopathy. Assessment is difficult without IV contrast. Similar findings were present on 11/18/2021 but worse at that time. Fleischner guidelines were followed.
--- NOTE | ~2022-10-09 | XR_ITS ---
EXAMINATION: XR CHEST CLINICAL INFORMATION: Shortness of breath COMPARISON: 07/11/2022 TECHNIQUE: Frontal view of the chest was obtained. FINDINGS: Left-sided pacemaker lead tips overlie the right atrium and right ventricle. The lungs are hypoinflated. Streaky atelectasis is suspected at the left lung base. Central vasculature appears prominent suggesting a degree of congestion. No evidence of pneumothorax or significant pleural effusion. Cardiac silhouette is prominent though may be accentuated by patient rotation and low lung volumes. Partially visualized left shoulder arthroplasty hardware. XR/XR chest 1V IMPRESSION: Low lung volumes with suspected streaky left basilar atelectasis. Prominent central vasculature suggesting a degree of congestion.
[2022-10-09 00:37] LABS: Glucose, Whole Blood 223 mg/dL (60-115)
--- NOTE | 2022-10-09 00:45 | ECG_ITS ---
Test Reason : SOB Blood Pressure : / mmHG Vent. Rate : 077 BPM Atrial Rate : 077 BPM P-R Int : 156 ms QRS Dur : 154 ms QT Int : 410 ms P-R-T Axes : 027 -39 085 degrees QTc Int : 463 ms Normal sinus rhythm Left axis deviation Left bundle branch block Abnormal ECG When compared with ECG of 11-JUL-2022 22:08, Sinus rhythm has replaced Idioventricular rhythm Vent. rate has increased BY 52 BPM Referred By: Thais Nguyen Electronically Signed By:SANJANA LAGUERRE
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
[2022-10-09 01:29] LABS: MANUAL DIFF FLAG NO
[2022-10-09 01:30] LABS: Glucose, Whole Blood 286 mg/dL (60-115)
[2022-10-09 01:34] LABS: VBG HCO3 51 mmol/L (22-26); VBG pCO2 76 mmHg; VBG pH 7.43 (7.32-7.43); VBG pO2 97 mmHg
[2022-10-09 01:37] LABS: Basophils Percent Auto 0.4 % (0-2); Eosinophils Absolute Auto 0.1 X10*3/uL (0.0-0.4); Eosinophils Percent Auto 1.7 % (0-4); Hematocrit 39.9 % (37.0-47.0); Hemoglobin 11.9 g/dl (12.0-16.0); Imm Gran Abs Auto 0.02 X10*3/uL (0.00-0.03); Imm Gran Pct Auto 0.2 % (0.0-0.4); Lymphocytes Absolute Auto 1.8 X10*3/uL (1.2-4.9); Lymphocytes Percent Auto 21.6 % (20-40); Mean Corpuscular HGB Conc 29.8 g/dl (31.0-35.0); Mean Corpuscular Hemoglobin 28.3 pg (27.0-33.0); Mean Platelet Volume 9.9 fL (9.4-12.3); Monocytes Absolute Auto 0.8 X10*3/uL (0.1-1.2); Monocytes Percent Auto 9.1 % (2-11); Neutrophils Absolute Auto 5.6 x10*3/uL (2.0-8.3); Platelet Count 194 X10*3/uL (160-400); Red Cell Distribution Width 14.1 % (11.0-16.0); White Blood Count 8.4 X10*3/uL (4.8-10.8)
[2022-10-09 01:42] LABS: Venous Blood Gas Refer to POC result
[2022-10-09 01:44] LABS: Lactic Acid 0.9 mmol/L (0.5-2.0)
[2022-10-09 01:57] LABS: Alanine Aminotransferase 16 U/L (0-31); Albumin Level 3.4 g/dL (3.5-5.0); Alkaline Phosphatase 78 U/L (39-117); Anion Gap 14 (12-20); Aspartate Amino Transferase 22 U/L (5-31); Bilirubin Direct < 0.2 mg/dL (0.0-0.5); Bilirubin Total 0.3 mg/dL (0.0-1.0); Blood Urea Nitrogen 39 mg/dL (9-16); Calcium 8.9 mg/dL (8.4-10.2); Carbon Dioxide 42 mmol/L (22-29); Chloride 92 mmol/L (96-108); Estimated Glomerular Filt Rate 37; Glucose Random 291 mg/dL (60-115); Magnesium 2.1 mg/dL (1.6-2.6); Potassium 5.8 mmol/L (3.3-5.1); Sodium 142 mmol/L (135-145); Total Protein 7.1 g/dL (6.5-8.0)
--- NOTE | 2022-10-09 01:57 | PC.NURSE ---
Pt. alert and oriented upon arrival. Reports SOB all day with anxiety over the last 2-4 weeks. IV placed in right hand and labs drawn.
[2022-10-09 01:58] LABS: COVID-19 Test Negative (Negative); IDNOW Serial# 16C4AD1C
--- NOTE | 2022-10-09 01:58 | PC.NURSE ---
Addendum entered by Loreto Cortés 10/09/22 05:31: Critical report was reported to Dr. Coleman. Original Note: Lab called with critical result. Bicarb of 42. Reporting result to Dr. Nguyen.
[2022-10-09 01:59] LABS: Troponin-I High Sensitivity 12.6 ng/L (<3.5-17.0)
[2022-10-09 01:59] LABS: Prothrombin Time 11.5 SEC (10.0-13.1)
[2022-10-09] MEDS: Furosemide 20 MG/2 ML VIAL IVPUSH (02:14)
--- NOTE | 2022-10-09 02:21 | PC.NURSE ---
Small wounds noted on pt. buttocks. and inner thighs. Pictures taken and tiger texted to for upload into pt. file. PT. currently on BIPAP and resting in bed.
[2022-10-09 03:00] LABS: B Type Natriuretic Peptide 21 pg/mL (<100)
[2022-10-09 04:17] LABS: VBG Base Excess 22.9 mmol/L; VBG HCO3 53 mmol/L (22-26); VBG pCO2 88 mmHg; VBG pH 7.39 (7.32-7.43); VBG pO2 45 mmHg
[2022-10-09 04:17] LABS: Venous Blood Gas Refer to POC result
--- NOTE | 2022-10-09 05:28 | PC.NURSE ---
Pt. continues on bipap. Pt. reports hx of COPD and is on 3L of O2 at [place]. Pt. also reports using a bipap at night time. Pt. sleepy, however, arousable to loud voices. Pt. able to appropriately respond to questions. Pt. asked to be repositioned to her side. Pt. was repositioned onto her right side.
[2022-10-09] MEDS: cefTRIAXone sodium 1 GM in 0.9 % Sodium Chloride 50 ML IV (07:49)
[2022-10-09 07:55] LABS: Appearance Urine Clear; Color Urine Yellow; Glucose Urine UA 250 mg/dL (Negative); Leukocyte Esterase Urine Moderate (2+) (Negative); Nitrite Urine Positive (Negative); PH 5.5 (5.0-9.0); UMIC TRIGGER UACC YES; Urine Blood Negative (Negative); Urine Ketones Negative (Negative); Urine Protein Negative (Neg-Trace)
[2022-10-09 08:00] LABS: Venous Blood Gas Refer to POC result
[2022-10-09 08:02] LABS: VBG Base Excess 27.2 mmol/L; VBG HCO3 56 mmol/L (22-26); VBG pCO2 79 mmHg; VBG pH 7.46 (7.32-7.43); VBG pO2 62 mmHg
--- NOTE | 2022-10-09 08:16 | PC.NURSE ---
took over care of patient at 0700. floey cath placed. addition IV inserted and labs drawn. patient difficult to arouse but does nto tolerate laying flat well. Dr Salazar at bedside at this time.
--- NOTE | 2022-10-09 08:18 | PC.NURSE ---
took over care of patient at 0700. frausto cath placed. addition IV inserted and labs drawn. patient difficult to arouse but does not tolerate laying flat well. Dr Salazar at bedside at this time.
[2022-10-09 08:21] LABS: Bacteria Urine 4+ (None Seen); Hyaline Casts Urine 0-2 /LPF (0-2); Squamous Epithelial Cell Urine 0-2 /HPF (0-2); UACC Culture Trigger YES; WBC Urine 21-50 /HPF (0-5)
--- NOTE | 2022-10-09 08:33 | PHA.MEDREC ---
Pharmacy Consult ? Medication Reconciliation Pharmacy has completed the medication reconciliation. Patient came from [facility] with a medication list. Hyacinth Motley, MounikaD
[2022-10-09 08:37] LABS: Amphetamine Screen Urine Not Detected (Not Detect); Barbiturates, Urine Not Detected (Not Detect); Benzodiazepines Screen Urine Not Detected (Not Detect); Cannabinoid Screen Urine Not Detected (Not Detect); Cocaine Screen Urine Not Detected (Not Detect); Fentanyl, urine Not Detected (Not Detect); Opiate Screen Urine Not Detected (Not Detect); Phencyclidine Screen Urine Not Detected (Not Detect)
[2022-10-09 13:11] LABS: Glucose, Whole Blood 189 mg/dL (60-115)
[2022-10-09 13:48] LABS: VBG Base Excess 20.3 mmol/L; VBG HCO3 49 mmol/L (22-26); VBG pCO2 79 mmHg; VBG pO2 34 mmHg
[2022-10-09] MEDS: Heparin Sodium,Porcine 5,000 UNIT/ML VIAL 5000 UNIT SUBCUT ×2 (13:50→20:30)
[2022-10-09 15:12] LABS: Glucose, Whole Blood 182 mg/dL (60-115)
[2022-10-09] MEDS: Albuterol/Iprat 2.5/0.5MG 3 ML AMPUL.NEB INHALE ×2 (15:12→20:05)
[2022-10-09 16:10] LABS: ABG Base Excess 21.3 mmol/L; ABG HCO3 48 mmol/L (22-26); ABG pCO2 66 mmHg (32-45); ABG pH 7.46 (7.35-7.45); ABG pO2 59 mmHg (83-108)
--- NOTE | 2022-10-09 16:49 | P.HPCC_ITS ---
History of Present Illness Date of Service: 10/09/22 Attending physician on admission: Cj Salazar Chief Complaint: Altered mental status 61-year-old very morbidly obese female who has got chronic obstructive sleep apnea as well as obesity/hypoventilation and does chronically use nocturnal positive pressure and daytime oxygen also a type 2 diabetic and hypertensive and hyperlipidemic without any coronary history but a number of months ago was noted to be in high-grade AV block probably 3rd degree with symptomatic bradycardia and now has a standard dual-chamber pacemaker with right atrial and right ventricular wire and has 100% ventricularly paced with a pacing induced left bu ndle branch block They thought she might have been hallucinating in the retirement but she was very conversational very lucid oriented x3 nonfocal neurologically here but she came in with an acute on chronic hypercapnic respiratory failure not having been on BiPAP last night none and compensated immediately on BiPAP and apparently she chronically lives with a pCO2 of 70-75 with a compensated pH and went pCO2 went up to 88 is when they probably had question some alteration but that is never been demonstrated here in the hospital She denies nor does she appear to have any form of respiratory distress no complaints of dyspnea no difference no fever no chills no productive cough and no chest discomfort and I stopped on a lot of her medications at home which did include a combination of antidepressants and p.r.n. oxycodone and that may have been a little bit of a contributing factor and all I have her on right now or just albuterol inhalations no steroids no antibiotics although she received 1 dose of ceftriaxone for no apparent reason in the emergency room and she also has chronic stage III renal insufficiency acute on chronic and she was on a fairly high dose of E now a prelude as well as Lasix chronically and I have held those for now her most recent potassium being 5.8 I just had concerns with the HEATHER-inhibitor and we are awaiting a repeat on her chemistry but the most recent VBG on nasal high-flow at 50 liters/minute and a very low FiO2 of 30% she has a 90% oxygen saturation and the best pCO2 she has had in a while at 66 so it looks like it she could be comfortable on nasal high-flow when she eats and during the day otherwise and maybe that could be weaned over a short period of time and at night she needs to be on BiPAP but on the AV APS mode aiming for tidal volume of about 600 cc empirically Review of Systems Review of Systems: Yes all other systems are reviewed and are negative [facility] Past Medical History Medical History (Updated 10/09/22 @ 16:57 by Cj Salazar MD) Anemia Arthritis Atelectasis of both lungs CHF (congestive heart failure) Clostridium difficile infection Depression Diabetes mellitus, type 2 Diabetic ulcer of foot associated with diabetes mellitus due to underlying condition, with fat layer exposed Hypertension Hypoventilation associated with obesity syndrome Morbid obesity Morbid obesity Obesity hypoventilation syndrome SMILEY (obstructive sleep apnea) Presence of permanent cardiac pacemaker Pulmonary embolism Respiratory failure with hypoxia and hypercapnia Sick sinus syndrome Surgical History Surgical History History of total knee replacement Social History Social History Household Members: None Housing: Retirement Housing Other:: rehab facility Are you a primary director of career resources to a significant other at home: No Do you presently have visiting nurse or other home services: Yes (Cyndee Bowers) Unable to assess alcohol history related to: Unknown Alcohol intake: never Patient Tobacco Use Status: Former Tobacco user Cigarettes Per Day: 0 Smoked in Last 30 Days: No e-Cigarette/Vaping Use: Never Used Patient Interested in Nicotine Replacement: No Patient Given Instructions on How to Stop Smoking: No (N/A) Use of substances other than those prescribed or required for medical reasons: No Substance Use Type: Unknown Currently Displaying Signs/Symptoms of Drug Intoxication Withdrawal: No Any prior treatment program specific to substance use: No Have you been hit, kicked, punched, or otherwise hurt by someone within the past year? If so, by whom?: No Do you feel safe in your current relationship?: Yes Is there a partner from a previous relationship who is making you feel unsafe now?: No Are you made to feel afraid or neglected: No Taoist Healthcare Practices: none Advance Directives: No Advance Directives Information Provided: Yes Do you have thoughts of harming others: None Do you have a plan to hurt others: No Plan Recently lost weight without trying: No Eating poorly because of decreased appetite: No Nutrition Risks: No Nutritional Risk Patient : No : No service: No Current occupational status: disabled Meds Allergies Allergy/AdvReac Type Severity Reaction Status Date / Time latex Allergy Unknown Unknown Verified 06/06/22 11:21 adhesive tape AdvReac Unknown Unknown Verified 06/06/22 11:21 bupropion [From Wellbutrin] AdvReac Unknown Unknown Verified 06/06/22 11:21 ibuprofen AdvReac Unknown Unknown Verified 06/06/22 11:21 Active Medications: Current Medications Albuterol/Ipratropium (Albuterol/Iprat 2.5/0.5mg 3 Ml Ampul.Neb) 3 ml INHALE RQ4H WHILE AWAKE [facility] Last Admin: 10/09/22 15:12 Dose: 3 ml Dextrose (Dextrose 50 % 25 Gm/50 Ml Syringe) 25 gm IVPUSH Q15M PRN; Protocol PRN Reason: per Hypoglycemia Standing Ord. Glucose (Glucose Gel 15 Gm Gel..Gram.) 15 gm PO Q15M PRN; Protocol PRN Reason: per Hypoglycemia Standing Ord. Heparin Sodium (Porcine) (Heparin Sodium,Porcine 5,000 Unit/Ml Vial) 5,000 unit SUBCUT Q8H [facility] Last Admin: 10/09/22 13:50 Dose: 5,000 unit Hydromorphone HCl (Hydromorphone Hcl 1 Mg/Ml Syringe) 0.5 mg IVPUSH Q6H PRN; Protocol PRN Reason: Pain, Severe (Pain Scale 7-10) Insulin Human Lispro (Insulin Lispro 100 Unit/Ml 3 Ml Vial) 0 unit SUBCUT Q IDACHS [facility]; Protocol Stop: 10/10/22 09:04 Last Admin: 10/09/22 13:00 Dose: Not Given Home Medications Medication Instructions Recorded Confirmed Last Taken Type acetaminophen 325 mg tablet 650 mg PO Q4H PRN Fever Or Pain 11/18/21 10/09/22 Unknown History atorvastatin 80 mg tablet 80 mg PO BEDTIME 11/18/21 10/09/22 Unknown History enalapril maleate 20 mg tablet 40 mg PO DAILY 11/18/21 10/09/22 Unknown History ferrous sulfate 325 mg (65 mg 325 mg PO DAILY 11/18/21 10/09/22 Unknown History iron) tablet gabapentin 300 mg capsule 300 mg PO DAILY@1200 11/18/21 10/09/22 Unknown History gabapentin 300 mg capsule 600 mg PO BID 11/18/21 10/09/22 Unknown History insulin lispro 100 unit/mL See Protocol subcut QIDACHS 11/18/21 10/09/22 Unknown History subcutaneous pen melatonin 3 mg tablet 3 mg PO BEDTIME 11/18/21 10/09/22 Unknown History polyethylene glycol 3350 17 gram 17 g PO DAILY PRN Constipation 11/18/2110/09 Unknown History oral powder packet (Miralax) sennosides 8.6 mg tablet (senna) 16.2 mg PO DAILY PRN Constipation 11/18/21 10/09/22 Unknown History sertraline 100 mg tablet 200 mg PO DAILY 11/18/21 10/09/22 Unknown History tizanidine 4 mg tablet 4 mg PO BEDTIME PRN Muscle Spasm 11/18/21 10/09/22 Unknown History aspirin 81 mg chewable tablet 81 mg PO DAILY 01/05/22 10/09/22 Unknown History megestrol 400 mg/10 mL (10 mL) 40 mg PO TID 01/05/22 10/09/22 Unknown History oral suspension bupropion HCl 300 mg 24 hr tablet, 300 mg PO DAILY 04/09/22 10/09/22 Unknown History extended release insulin lispro 100 unit/mL 5 unit subcut TIDAC 04/09/22 10/09/22 Unknown History subcutaneous solution Lactobacillus rhamnosus GG 10 1 cap PO DAILY 10/09/22 10/09/22 Unknown History billion cell capsule (Culturelle) bupropion HCl 150 mg 24 hr tablet, 1 tab PO DAILY 10/09/22 10/09/22 Unknown History extended release insulin glargine 100 unit/mL (3 50 unit subcut QAM 10/09/22 10/09/22 Unknown History mL) subcutaneous pen (Lantus Solostar U-100 Insulin) ipratropium 0.5 mg-albuterol 3 mg 3 ml inhalation TID 10/09/22 10/09/22 Unknown History (2.5 mg base)/3 mL nebulization soln potassium chloride 10 mEq 10 meq PO DAILY 10/09/22 10/09/22 Unknown History tablet,extended release Physical Exam Vital Signs: Vital Signs: Last Vital Signs Temp 99.3 F 10/09/22 16:00 Pulse 66 10/09/22 16:00 Resp 23 H 10/09/22 16:00 BP 141/82 H 10/09/22 16:00 Pulse Ox 90 L 10/09/22 16:00 O2 Del Method 10/09/22 16:00 O2 Flow Rate 50 10/09/22 16:00 FiO2 30 10/09/22 16:00 Oxygen Flow Rate 5 10/09/22 00:27 BMI result Body Mass Index 52.4 Vitals are excellent and she is neurologically intact Cardiac exam with good bilateral carotid upstrokes and no neck vein distension and bedside echo demonstrating at least 50% left ventricular ejection fraction no primary valve or pericardial disease and there is no significant dilatation of the right ventricle which seems to have good systolic function Abdomen soft and tolerating feedings no again a megaly No significant edema Results Labs 10/09/22 01:19 10/09/22 01:19 Labs: Laboratory Results - last 24 hr 10/09/22 10/09/22 10/09/22 00:31 01:18 01:19 MCV 95.0 MCH 28.3 MCHC 29.8 L RDW 14.1 Plt Count 194 D MPV 9.9 Immature Gran % (Auto) 0.2 Neut % (Auto) 67.0 Lymph % (Auto) 21.6 [place] % (Auto) 9.1 Eos % (Auto) 1.7 Baso % (Auto) 0.4 Lymph # (Auto) 1.8 [place] # (Auto) 0.8 Eos # (Auto) 0.1 Baso # (Auto) 0.0 Abs Immat Gran (auto) 0.02 Absolute Neuts (auto) 5.6 Absolute Nucleated RBC 0.000 Nucleated RBC % (auto) 0.0 PT INR O2 Saturation ABG pH at Pt Temp ABG pCO2 at Pt Temp ABG pO2 at Pt Temp ABG HCO3 ABG Base Excess (Actual) VBG pH VBG pCO2 VBG pO2 VBG HCO3 VBG O2 Saturation VBG Base Excess Anion Gap Estim Creat Clear Calc Estimated GFR POC Glucose 223 H Random Glucose Lactic Acid 0.9 Calcium Magnesium Total Bilirubin Direct Bilirubin AST ALT Alkaline Phosphatase Troponin I High Sens B-Natriuretic Peptide Total Protein Albumin Urine Color Urine Appearance Urine pH Ur Specific [place] Urine Protein Urine Glucose (UA) Urine Ketones Urine Blood Urine Nitrite Ur Leukocyte Esterase Urine RBC Urine WBC Ur Squamous Epith Cells Urine Bacteria Hyaline Casts Urine Opiates Screen Urine Fentanyl Screen Ur Barbiturates Screen Ur Phencyclidine Scrn Ur Amphetamines Screen U Benzodiazepines Scrn Urine Cocaine Screen U Marijuana (THC) Screen COVID-19 (LIS) COVID-19 Clin Com 10/09/22 10/09/22 10/09/22 01:19 01:19 01:20 MCV MCH MCHC RDW Plt Count MPV Immature Gran % (Auto) Neut % (Auto) Lymph % (Auto) [place] % (Auto) Eos % (Auto) Baso % (Auto) Lymph # (Auto) [place] # (Auto) Eos # (Auto) Baso # (Auto) Abs Immat Gran (auto) Absolute Neuts (auto) Absolute Nucleated RBC Nucleated RBC % (auto) PT INR O2 Saturation ABG pH at Pt Temp ABG pCO2 at Pt Temp ABG pO2 at Pt Temp ABG HCO3 ABG Base Excess (Actual) VBG pH VBG pCO2 VBG pO2 VBG HCO3 VBG O2 Saturation VBG Base Excess Anion Gap 14 Estim Creat Clear Calc 69.0 Estimated GFR 37 POC Glucose Random Glucose 291 H Lactic Acid Calcium 8.9 Magnesium 2.1 Total Bilirubin 0.3 Direct Bilirubin < 0.2 AST 22 ALT 16 Alkaline Phosphatase 78 Troponin I High Sens 12.6 B-Natriuretic Peptide Total Protein 7.1 Albumin 3.4 L Urine Color Urine Appearance Urine pH Ur Specific [place] Urine Protein Urine Glucose (UA) Urine Ketones Urine Blood Urine Nitrite Ur Leukocyte Esterase Urine RBC Urine WBC Ur Squamous Epith Cells Urine Bacteria Hyaline Casts Urine Opiates Screen Urine Fentanyl Screen Ur Barbiturates Screen Ur Phencyclidine Scrn Ur Amphetamines Screen U Benzodiazepines Scrn Urine Cocaine Screen U Marijuana (THC) Screen COVID-19 (LIS) Negative COVID-19 Clin Com See Note 10/09/22 10/09/22 10/09/22 01:22 01:23 01:29 MCV MCH MCHC RDW Plt Count MPV Immature Gran % (Auto) Neut % (Auto) Lymph % (Auto) [place] % (Auto) Eos % (Auto) Baso % (Auto) Lymph # (Auto) [place] # (Auto) Eos # (Auto) Baso # (Auto) Abs Immat Gran (auto) Absolute Neuts (auto) Absolute Nucleated RBC Nucleated RBC % (auto) PT INR O2 Saturation ABG pH at Pt Temp ABG pCO2 at Pt Temp ABG pO2 at Pt Temp ABG HCO3 ABG Base Excess (Actual) VBG pH 7.43 VBG pCO2 76 VBG pO2 97 VBG HCO3 51 H VBG O2 Saturation 99.0 VBG Base Excess 22.0 Anion Gap Estim Creat Clear Calc Estimated GFR POC Glucose 286 H Random Glucose Lactic Acid Calcium Magnesium Total Bilirubin Direct Bilirubin AST ALT Alkaline Phosphatase Troponin I High Sens B-Natriuretic Peptide 21 Total Protein Albumin Urine Color Urine Appearance Urine pH Ur Specific [place] Urine Protein Urine Glucose (UA) Urine Ketones Urine Blood Urine Nitrite Ur Leukocyte Esterase Urine RBC Urine WBC Ur Squamous Epith Cells Urine Bacteria Hyaline Casts Urine Opiates Screen Urine Fentanyl Screen Ur Barbiturates Screen Ur Phencyclidine Scrn Ur Amphetamines Screen U Benzodiazepines Scrn Urine Cocaine Screen U Marijuana (THC) Screen COVID-19 (LIS) COVID-19 Public Solution 10/09/22 10/09/22 10/09/22 01:49 04:10 07:37 MCV MCH MCHC RDW Plt Count MPV Immature Gran % (Auto) Neut % (Auto) Lymph % (Auto) [place] % (Auto) Eos % (Auto) Baso % (Auto) Lymph # (Auto) [place] # (Auto) Eos # (Auto) Baso # (Auto) Abs Immat Gran (auto) Absolute Neuts (auto) Absolute Nucleated RBC Nucleated RBC % (auto) PT 11.5 INR 1.0 O2 Saturation ABG pH at Pt Temp ABG pCO2 at Pt Temp ABG pO2 at Pt Temp ABG HCO3 ABG Base Excess (Actual) VBG pH 7.39 VBG pCO2 88 VBG pO2 45 VBG HCO3 53 H VBG O2 Saturation 70.0 VBG Base Excess 22.9 Anion Gap Estim Creat Clear Calc Estimated GFR POC Glucose Random Glucose Lactic Acid Calcium Magnesium Total Bilirubin Direct Bilirubin AST ALT Alkaline Phosphatase Troponin I High Sens B-Natriuretic Peptide Total Protein Albumin Urine Color Yellow Urine Appearance Clear Urine pH 5.5 Ur Specific [place] 1.010 Urine Protein Negative Urine Glucose (UA) 250 H Urine Ketones Negative Urine Blood Negative Urine Nitrite Positive H Ur Leukocyte Esterase Moderate (2+) H Urine RBC 3-5 H Urine WBC 21-50 H Ur Squamous Epith Cells 0-2 Urine Bacteria 4+ Hyaline Casts 0-2 Urine Opiates Screen Urine Fentanyl Screen Ur Barbiturates Screen Ur Phencyclidine Scrn Ur Amphetamines Screen U Benzodiazepines Scrn Urine Cocaine Screen U Marijuana (THC) Screen COVID-19 (LIS) COVID-19 UNATION Com 10/09/22 10/09/22 10/09/22 07:37 07:55 12:51 MCV MCH MCHC RDW Plt Count MPV Immature Gran % (Auto) Neut % (Auto) Lymph % (Auto) [place] % (Auto) Eos % (Auto) Baso % (Auto) Lymph # (Auto) [place] # (Auto) Eos # (Auto) Baso # (Auto) Abs Immat Gran (auto) Absolute Neuts (auto) Absolute Nucleated RBC Nucleated RBC % (auto) PT INR O2 Saturation ABG pH at Pt Temp ABG pCO2 at Pt Temp ABG pO2 at Pt Temp ABG HCO3 ABG Base Excess (Actual) VBG pH 7.46 H VBG pCO2 79 VBG pO2 62 VBG HCO3 56 H VBG O2 Saturation 89.0 VBG Base Excess 27.2 Anion Gap Estim Creat Clear Calc Estimated GFR POC Glucose 189 H Random Glucose Lactic Acid Calcium Magnesium Total Bilirubin Direct Bilirubin AST ALT Alkaline Phosphatase Troponin I High Sens B-Natriuretic Peptide Total Protein Albumin Urine Color Urine Appearance Urine pH Ur Specific [place] Urine Protein Urine Glucose (UA) Urine Ketones Urine Blood Urine Nitrite Ur Leukocyte Esterase Urine RBC Urine WBC Ur Squamous Epith Cells Urine Bacteria Hyaline Casts Urine Opiates Screen Not Detected Urine Fentanyl Screen Not Detected Ur Barbiturates Screen Not Detected Ur Phencyclidine Scrn Not Detected Ur Amphetamines Screen Not Detected U Benzodiazepines Scrn Not Detected Urine Cocaine Screen Not Detected U Marijuana (THC) Screen Not Detected COVID-19 (LIS) COVID-19 Clin Com 10/09/22 10/09/22 10/09/22 13:41 15:08 16:03 MCV MCH MCHC RDW Plt Count MPV Immature Gran % (Auto) Neut % (Auto) Lymph % (Auto) [place] % (Auto) Eos % (Auto) Baso % (Auto) Lymph # (Auto) [place] # (Auto) Eos # (Auto) Baso # (Auto) Abs Immat Gran (auto) Absolute Neuts (auto) Absolute Nucleated RBC Nucleated RBC % (auto) PT INR O2 Saturation 89.0 ABG pH at Pt Temp 7.46 H ABG pCO2 at Pt Temp 66 H* ABG pO2 at Pt Temp 59 L ABG HCO3 48 H ABG Base Excess (Actual) 21.3 VBG pH 7.40 VBG pCO2 79 VBG pO2 34 VBG HCO3 49 H VBG O2 Saturation 56.0 VBG Base Excess 20.3 Anion Gap Estim Creat Clear Calc Estimated GFR POC Glucose 182 H Random Glucose Lactic Acid Calcium Magnesium Total Bilirubin Direct Bilirubin AST ALT Alkaline Phosphatase Troponin I High Sens B-Natriuretic Peptide Total Protein Albumin Urine Color Urine Appearance Urine pH Ur Specific [place] Urine Protein Urine Glucose (UA) Urine Ketones Urine Blood Urine Nitrite Ur Leukocyte Esterase Urine RBC Urine WBC Ur Squamous Epith Cells Urine Bacteria Hyaline Casts Urine Opiates Screen Urine Fentanyl Screen Ur Barbiturates Screen Ur Phencyclidine Scrn Ur Amphetamines Screen U Benzodiazepines Scrn Urine Cocaine Screen U Marijuana (THC) Screen COVID-19 (LIS) COVID-19 Clin Com Imaging Radiologist's Impressions: Impressions Chest X-Ray 10/09/22 01:09 IMPRESSION: Low lung volumes with suspected streaky left basilar atelectasis. Prominent central vasculature suggesting a degree of congestion. Chest CT 10/09/22 10:37 IMPRESSION: Bibasilar atelectasis/consolidation with trace pleural effusions. Unchanged density abutting the superior mediastinum on the right could be atelectasis or possibly adenopathy. Assessment is difficult without IV contrast. Similar findings were present on 11/18/2021 but worse at that time. Fleischner guidelines were followed. Assessment and Plan (1) Acute on chronic respiratory failure with hypoxia and hypercapnia: Status: Acute (2) Morbid obesity: Status: Acute (3) Obesity hypoventilation syndrome: Status: Acute (4) Sick sinus syndrome: Status: Acute (5) Presence of permanent cardiac pacemaker: Status: Acute Plan So she will be on a BiPAP on an AVAPS setting this evening and through the night and she will otherwise have her diabetic diet during the day and remain on nasal high-flow which can then be slowly wean preserving pCO2 at no greater than 70-75 and I would be careful about restoring the combination of these antidepressives along with the oxycodone Time Spent With Patient Time: Total time managing care of this patient today 60____ minutes.
[2022-10-09 17:31] LABS: Glucose, Whole Blood 207 mg/dL (60-115)
[2022-10-09 17:33] LABS: Anion Gap 13 (12-20); Blood Urea Nitrogen 34 mg/dL (9-16); Calcium 8.9 mg/dL (8.4-10.2); Carbon Dioxide 44 mmol/L (22-29); Chloride 92 mmol/L (96-108); Creatinine Clr Calc Pharmacy 82.4; Estimated Glomerular Filt Rate 46; Glucose Random 223 mg/dL (60-115); Potassium 4.7 mmol/L (3.3-5.1); Sodium 144 mmol/L (135-145)
[2022-10-09] MEDS: Insulin Lispro 100 UNIT/ML 3 ML VIAL SUBCUT ×2 (17:49→20:30)
[2022-10-09 19:58] LABS: Venous Blood Gas Refer to POC result
[2022-10-09 20:02] LABS: Glucose, Whole Blood 386 mg/dL (60-115)
[2022-10-09] MEDS: HYDROmorphone HCl 1 MG/ML SYRINGE 0.5 MG IVPUSH (23:43)
[2022-10-10] VITALS (9 sets, daily range): BP systolic 91–175; BP diastolic 65–85; PULSE 66–81; RESP 14–91; TEMP 36.6–37.3; O2SAT 18–94; BMI 52.4
[2022-10-10 00:41] LABS: ABG Refer to POC result
[2022-10-10] MEDS: HYDROmorphone HCl 1 MG/ML SYRINGE 0.5 MG IVPUSH (04:23)
[2022-10-10] MEDS: Heparin Sodium,Porcine 5,000 UNIT/ML VIAL 5000 UNIT SUBCUT ×3 (04:27→20:21)
[2022-10-10 07:49] LABS: Glucose, Whole Blood 209 mg/dL (60-115)
[2022-10-10] MEDS: Albuterol/Iprat 2.5/0.5MG 3 ML AMPUL.NEB INHALE ×3 (07:51→20:37)
[2022-10-10] MEDS: Insulin Lispro 100 UNIT/ML 3 ML VIAL SUBCUT ×5 (08:16→20:21)
--- NOTE | 2022-10-10 09:45 | P.CDIC_ITS ---
CDI Concurrent Query Documentation Clarification: PHYSICIAN'S DOCUMENTATION REQUEST Date of Query: 10/10/22 0945 Patient Name: Bonnie Das Admit Date: 10/09/22 Dear Doctor, A review of the medical record indicates additional documentation may be needed. Please review below and update the documentation accordingly. Clinical Indicators: The following clinical information was noted in the record: Risk Factors/Clinical Indicators/Treatments H&P 10/09/22: chronic stage III renal insufficiency acute on chronic? BUN 34 Creatinine 1.20 Est GFR 46 Please clarify which of the following accurately represents the patient's renal status: * Acute renal failure - see criteria * Acute renal failure with suspected ATN * Acute renal failure with other pathology (medullary, papillary, or cortical necrosis) * Acute renal failure (with type, appropriate) on Chronic Kidney Disease (CKD) - see criteria * Acute kidney injury (non-traumatic) - see criteria * Other (please specify) * Unable to determine Criteria for BERNIE* Stages of Chronic Kidney Disease* 1. Increase in serum creatinine by ? 0.3 mg/dL Level Description GFR (?26.5 micromol/L) within 48 hours, or G1 Normal or High > 90 2. Increase in serum creatinine to ?1.5 times baseline, G2 Mildly decreased 60 ? 89 which is known or presumed to have occurred within 7 days, or G3a Mildly to moderately decreased 45 ? 59 3. Urine volume <0.5 mL/kg/hour for six hours G3b Moderately to severely decreased 30 - 44 G4 Severely decreased 15 ? 29 G5 Kidney failure < 15 *Source: Kidney Disease: Improving Global Outcomes (KDIGO) 2012 Use of terms such as suspected, likely, concern for, or probable (associated with a specific diagnosis that is being evaluated, monitored, or treated as if it exists) are acceptable and can be coded in the inpatient setting, when documented at the time of discharge. Thank you, Sarah Cannon RN Extension: [phone] Please use your independent medical judgment in providing your response. THIS QUERY IS PART OF THE PERMANENT MEDICAL RECORD
--- NOTE | 2022-10-10 10:48 | MHC.CM.PN ---
Addendum entered by Anju Joseph 10/10/22 16:12: Per MD patient will discharge tomorrow. She has been weaned from HF o2. She is receiving 3L, her baseline. Her respiratory status will be monitored today. Original Note: Female 61 DX AMS [place] [facility] [place] [facility]. She went to [facility] for STR > a year ago. DP return to [facility] via BLS. Per MD rounds patient may discharge today. She has a HCP on file. Covid vax x3.
--- NOTE | 2022-10-10 11:34 | P.PNIM_ITS ---
Subjective Subjective Date of Service: 10/10/22 Interval History: f/u on acute/chronic resp failure interval history; better, transferred out of ICU yesterday Review of Systems no sob Physical Exam Vital Signs: Vital Signs: Last Vital Signs Temp 98.5 F 10/10/22 11:18 Pulse 79 10/10/22 11:18 Resp 17 10/10/22 11:18 BP 143/85 H 10/10/22 11:18 Pulse Ox 91 L 10/10/22 11:18 O2 Del Method 10/10/22 11:18 O2 Flow Rate 18 10/10/22 08:00 FiO2 48 10/10/22 08:00 Oxygen Flow Rate 5 10/09/22 00:27 BMI result Body Mass Index 52.4 Const: Other: General: AO X 3, no acute distress Resp: CTA bilateral CVS: S1,S2,RRR GI: +BS, NT, no distention Skin: No rash Neuro: motor grossly intact Psych: appropriate affect Objective Data Active Medications Albuterol/Ipratropium (Albuterol/Iprat 2.5/0.5mg 3 Ml Ampul.Neb) 3 ml INHALE RQ4H WHILE AWAKE [facility] Last Admin: 10/10/22 07:51 Dose: 3 ml Documented By: ROYCE Dextrose (Dextrose 50 % 25 Gm/50 Ml Syringe) 25 gm IVPUSH Q15M PRN; Protocol PRN Reason: per Hypoglycemia Standing Ord. Glucose (Glucose Gel 15 Gm Gel..Gram.) 15 gm PO Q15M PRN; Protocol PRN Reason: per Hypoglycemia Standing Ord. Heparin Sodium (Porcine) (Heparin Sodium,Porcine 5,000 Unit/Ml Vial) 5,000 unit SUBCUT Q8H [facility] Last Admin: 10/10/22 04:27 Dose: 5,000 unit Documented By: PASTORA Hydromorphone HCl (Hydromorphone Hcl 1 Mg/Ml Syringe) 0.5 mg IVPUSH Q6H PRN; Protocol PRN Reason: Pain, Severe (Pain Scale 7-10) Last Admin: 10/10/22 04:23 Dose: 0.5 mg Documented By: PASTORA Labs 10/09/22 01:19 10/09/22 16:51 Labs: Laboratory Results - last 24 hr 10/09/22 10/09/22 10/09/22 12:51 13:41 13:43 O2 Saturation ABG pH at Pt Temp ABG pCO2 at Pt Temp ABG pO2 at Pt Temp ABG HCO3 ABG Base Excess (Actual) VBG pH 7.40 VBG pCO2 79 VBG pO2 34 VBG HCO3 49 H VBG O2 Saturation 56.0 VBG Base Excess 20.3 Anion Gap Cancelled Estim Creat Clear Calc Cancelled Estimated GFR Cancelled POC Glucose 189 H Random Glucose Cancelled Calcium Cancelled 10/09/22 10/09/22 10/09/22 15:08 16:03 16:51 O2 Saturation 89.0 ABG pH at Pt Temp 7.46 H ABG pCO2 at Pt Temp 66 H* ABG pO2 at Pt Temp 59 L ABG HCO3 48 H ABG Base Excess (Actual) 21.3 VBG pH VBG pCO2 VBG pO2 VBG HCO3 VBG O2 Saturation VBG Base Excess Anion Gap 13 Estim Creat Clear Calc 82.4 Estimated GFR 46 POC Glucose 182 H Random Glucose 223 H Calcium 8.9 10/09/22 10/09/22 10/10/22 17:29 19:59 07:41 O2 Saturation ABG pH at Pt Temp ABG pCO2 at Pt Temp ABG pO2 at Pt Temp ABG HCO3 ABG Base Excess (Actual) VBG pH VBG pCO2 VBG pO2 VBG HCO3 VBG O2 Saturation VBG Base Excess Anion Gap Estim Creat Clear Calc Estimated GFR POC Glucose 207 H 386 H* 209 H Random Glucose Calcium Microbiology Microbiology Results: Microbiology 10/09/22 00:00 Urine Culture - Preliminary Urine clean catch - Urine schmitt top Culture in progress. 10/09/22 01:23 Blood Culture - Preliminary Blood - Venous No growth after 24 hours. 10/09/22 01:22 Blood Culture - Preliminary Blood - Venous No growth after 24 hours. Assessment and Plan (1) Acute on chronic respiratory failure with hypoxia and hypercapnia: Status: Acute Plan 61-year-old very morbidly obese female who has got chronic obstructive sleep apnea as well as obesity/hypoventilation and does chronically use nocturnal positive pressure and daytime oxygen also a type 2 diabetic and hypertensive and hyperlipidemic without any coronary history but a number of months ago was noted to be in high-grade AV block probably 3rd degree with symptomatic bradycardia and now has a standard dual-chamber pacemaker, she presented with acute on chronic hypoxic and hypecarbic respriatory failure and was admitted through ICU for rescue BiPAP use and later same day transfered to floor on high flow 1. Acute on chronic respiratory failure with hypoxia and hypercarbia requiring bipap in ICU with good effect She has been weaned succefully to nasal canula 2. Acute on chronic diastolic heart failure required IV Lasix, continue Oral Lasix 3.DMII with hyperglycemia-restart lantus, pre meal insulin and SSI, monitor glucose 5. Hypertension--restart amlodipine/enalapril 6. HLD--Lipitor 6. Mood desorders--Bupropion, stertraline 7. Neurolpathy--Gabapentin 8. morbid obesity--weight loss advised 9. DVT p heparin full code inpatient for acute on chronic resp needing rescue bipapa and being weaned off high flow Time Spent With Patient Time: Total time managing care of this patient today ____ minutes. Quality Stroke Does the patient have a stroke diagnosis?: No VTE Prior VTE?: No VTE Risk Level:: Medical - moderate - high VTE Device Contraindication: N/A - Device Ordered VTE Drug Contraindication: N/A - Med Ordered
[2022-10-10 11:35] LABS: Glucose, Whole Blood 286 mg/dL (60-115)
[2022-10-10 12:16] LABS: Glucose, Whole Blood 289 mg/dL (60-115)
--- NOTE | 2022-10-10 12:26 | PC.NURSE ---
Insuling order had been DCed. put back on NOV pt POC 286. administered insulin with dr Baldwin verbal aproval. 6U
--- NOTE | 2022-10-10 14:09 | PC.NURSE ---
took Sood out per providers order. pt tolerated it well.
[2022-10-10 15:30] LABS: Glucose, Whole Blood 338 mg/dL (60-115)
[2022-10-10] MEDS: buPROPion HCl XL 150 MG TAB.ER.24H PO (18:13)
[2022-10-10] MEDS: Furosemide 40 MG TABLET PO (18:13)
[2022-10-10] MEDS: amLODIPine Besylate 5 MG TABLET PO (18:13)
[2022-10-10] MEDS: Insulin Glargine,Hum.rec.anlog 100 UNIT/ML 10 ML VIAL 50 UNIT SUBCUT (18:14)
[2022-10-10 19:33] LABS: Glucose, Whole Blood 374 mg/dL (60-115)
[2022-10-10] MEDS: Melatonin 3 MG TABLET PO (20:20)
[2022-10-10] MEDS: Megestrol Acetate 400 MG/10 ML ORAL.SUSP 40 MG PO (20:20)
[2022-10-10] MEDS: Gabapentin 300 MG CAPSULE 600 MG PO (20:21)
[2022-10-10] MEDS: Atorvastatin Calcium 80 MG TABLET PO (20:21)
[2022-10-11] VITALS (12 sets, daily range): BP systolic 108–178; BP diastolic 54–88; PULSE 62–94; RESP 14–24; TEMP 36.3–37.4; O2SAT 90–100
[2022-10-11] MEDS: Heparin Sodium,Porcine 5,000 UNIT/ML VIAL 5000 UNIT SUBCUT ×3 (04:05→20:03)
[2022-10-11 07:39] LABS: Glucose, Whole Blood 203 mg/dL (60-115)
[2022-10-11] MEDS: Aspirin 81 MG TAB.CHEW PO (07:47)
[2022-10-11] MEDS: Enalapril Maleate 10 MG TABLET 40 MG PO (07:47)
[2022-10-11] MEDS: Furosemide 40 MG TABLET PO (07:48)
[2022-10-11] MEDS: Ferrous Sulfate 324 MG TABLET.DR PO (07:49)
[2022-10-11] MEDS: Megestrol Acetate 400 MG/10 ML ORAL.SUSP 40 MG PO ×3 (07:49→20:02)
[2022-10-11] MEDS: buPROPion HCl XL 150 MG TAB.ER.24H PO (07:49)
[2022-10-11] MEDS: amLODIPine Besylate 5 MG TABLET PO (07:49)
[2022-10-11] MEDS: Sertraline HCL 100 MG TABLET 200 MG PO (07:49)
[2022-10-11] MEDS: Gabapentin 300 MG CAPSULE 600 MG PO ×2 (07:49→20:03)
[2022-10-11] MEDS: buPROPion HCl XL 300 MG TAB.ER.24H PO (07:49)
[2022-10-11] MEDS: Insulin Lispro 100 UNIT/ML 3 ML VIAL SUBCUT ×7 (07:52→20:32)
[2022-10-11] MEDS: Insulin Glargine,Hum.rec.anlog 100 UNIT/ML 10 ML VIAL 50 UNIT SUBCUT (07:53)
[2022-10-11] MEDS: Fluticasone/Vilanterol 100/25 BLST.W.DEV 1 PUFF INHALE (08:14)
[2022-10-11] MEDS: Albuterol/Iprat 2.5/0.5MG 3 ML AMPUL.NEB INHALE ×3 (08:14→15:33)
--- NOTE | 2022-10-11 11:06 | MHC.CM.PN ---
pt to be dcd today at 3 to [facility] janice notified of dc [phone]
[2022-10-11] MEDS: cefTRIAXone sodium 1 GM in 0.9 % Sodium Chloride 50 ML IV (11:41)
[2022-10-11] MEDS: Gabapentin 300 MG CAPSULE PO (11:41)
[2022-10-11 11:42] LABS: Glucose, Whole Blood 239 mg/dL (60-115)
[2022-10-11 11:55] LABS: COVID-19 Test Negative (Negative); IDNOW Serial# 9DB6401D
--- NOTE | 2022-10-11 12:01 | MHC.CM.PN ---
dc cancelled [facility] notified amb put on hold
--- NOTE | 2022-10-11 12:26 | MHC.CLN ---
F/U PT WITH INCREASED NUTRITION RISK R/T PRESSURE INJURIES NOTED NOW STAGE 1 COCCYX DIET RX: 2200DM-WILL ADD 2GM NA R/T HX CKD/CKF PT RECEIVING ENSURE MAX TID TO INCREASE PO PROTEIN AND PROMOTE WOUND HEALING SUPP PROVIDES 450KCALS, 90G PROTEIN MONITOR PO INTAKE CLOSELY
[2022-10-11 15:36] LABS: Glucose, Whole Blood 267 mg/dL (60-115)
--- NOTE | 2022-10-11 15:53 | HO.PM.IMPN ---
Subjective Subjective Date of Service: 10/11/22 Interval History: seen and examined this morning follow up for respiratory failure, UTI awake and alert denies sob Review of Systems Review of Systems: Yes all other systems are reviewed and are negative Constitutional Constitutional: Denies chills and Denies fever(s) Cardiovascular Cardiovascular: Denies chest pain, Denies palpitations and Denies dyspnea Respiratory Respiratory: Denies cough and Denies dyspnea Gastrointestinal Gastrointestinal: Denies abdominal pain Endocrine Endocrine: Denies palpitations Physical Exam Vital Signs: Vital Signs: Last Vital Signs Temp 99.3 F 10/11/22 14:43 Pulse 78 10/11/22 15:33 Resp 16 10/11/22 15:33 BP 152/72 H 10/11/22 14:43 Pulse Ox 92 10/11/22 14:43 O2 Del Method 10/11/22 14:43 O2 Flow Rate 3 10/11/22 11:29 FiO2 48 10/10/22 08:00 Oxygen Flow Rate 5 10/09/22 00:27 BMI result Body Mass Index 52.4 Const: General: comfortable, no acute distress, alert and awake Nutritional Appearance: obese Orientation/consciousness: patient oriented x3 Resp: Effort & Inspection: normal respiratory effort, able to speak in complete sentences, no respiratory distress and no use of accessory muscles Cardio: Rate: regular rate Heart sounds: S1 normal heart sound present and S2 normal heart sound present GI: Inspection: No distended and Yes obesity Neuro: General: patient oriented x3 and CN's II-XI intact bilaterally Extrem: General: Yes no pedal edema Objective Data Active Medications Acetaminophen (Acetaminophen 325 Mg Tablet) 650 mg PO Q4H PRN PRN Reason: Fever Or Pain Albuterol/Ipratropium (Albuterol/Iprat 2.5/0.5mg 3 Ml Ampul.Neb) 3 ml INHALE RQ4H WHILE AWAKE [facility] Last Admin: 10/11/22 15:33 Dose: 3 ml Documented By: NOREEN Amlodipine Besylate (Amlodipine Besylate 5 Mg Tablet) 5 mg PO DAILY [facility]; Protocol Last Admin: 10/11/22 07:49 Dose: 5 mg Documented By: KALI Aspirin (Aspirin 81 Mg Tab.Chew) 81 mg PO DAILY [facility] Last Admin: 10/11/22 07:47 Dose: 81 mg Documented By: KALI Atorvastatin Calcium (Atorvastatin Calcium 80 Mg Tablet) 80 mg PO BEDTIME [facility] Last Admin: 10/10/22 20:21 Dose: 80 mg Documented By: CHICO Bupropion HCl (Bupropion Hcl Xl 150 Mg Tab.Er.24h) 150 mg PO DAILY [facility] Last Admin: 10/11/22 07:49 Dose: 150 mg Documented By: KALI Bupropion HCl (Bupropion Hcl Xl 300 Mg Tab.Er.24h) 300 mg PO DAILY [facility] Last Admin: 10/11/22 07:49 Dose: 300 mg Documented By: KALI Dextrose (Dextrose 50 % 25 Gm/50 Ml Syringe) 25 gm IVPUSH Q15M PRN; Protocol PRN Reason: per Hypoglycemia Standing Ord. Enalapril Maleate (Enalapril Maleate 10 Mg Tablet) 40 mg PO DAILY [facility]; Protocol Last Admin: 10/11/22 07:47 Dose: 40 mg Documented By: KALI Ferrous Sulfate (Ferrous Sulfate 324 Mg Tablet.Dr) 324 mg PO DAILY [facility] Last Admin: 10/11/22 07:49 Dose: 324 mg Documented By: KALI Fluticasone/Vilanterol (Fluticasone/Vilanterol 100/25 Blst.W.Dev) 1 puff INHALE RDAILY [facility] Last Admin: 10/11/22 08:14 Dose: 1 puff Documented By: NOREEN Furosemide (Furosemide 40 Mg Tablet) 40 mg PO DAILY [facility]; Protocol Last Admin: 10/11/22 07:48 Dose: 40 mg Documented By: KALI Gabapentin (Gabapentin 300 Mg Capsule) 300 mg PO DAILY@1200 [facility] Last Admin: 10/11/22 11:41 Dose: 300 mg Documented By: KALI Gabapentin (Gabapentin 300 Mg Capsule) 600 mg PO BID [facility] Last Admin: 10/11/22 07:49 Dose: 600 mg Documented By: KALI Glucose (Glucose Gel 15 Gm Gel..Gram.) 15 gm PO Q15M PRN; Protocol PRN Reason: per Hypoglycemia Standing Ord. Heparin Sodium (Porcine) (Heparin Sodium,Porcine 5,000 Unit/Ml Vial) 5,000 unit SUBCUT Q8H [facility] Last Admin: 10/11/22 11:41 Dose: 5,000 unit Documented By: KALI Ceftriaxone Sodium 1 gm/ (Sodium Chloride) 50 mls @ 100 mls/hr IV Q24H [facility] Last Infusion: 10/11/22 12:27 Dose: 0 mls/hr Documented By: KALI Insulin Glargine (Insulin Glargine,Hum.Rec.Anlog 100 Unit/Ml 10 Ml Vial) 50 unit SUBCUT DAILY [facility] Last Admin: 10/11/22 07:53 Dose: 50 unit Documented By: KALI Insulin Human Lispro (Insulin Lispro 100 Unit/Ml 3 Ml Vial) 0 unit SUBCUT QIDACHS [facility]; Protocol Last Admin: 10/11/22 15:49 Dose: 6 unit Documented By: KALI Insulin Human Lispro (Insulin Lispro 100 Unit/Ml 3 Ml Vial) 5 unit SUBCUT TIDAC [facility] Last Admin: 10/11/22 15:49 Dose: 5 unit Documented By: KALI Megestrol Acetate (Megestrol Acetate 400 Mg/10 Ml Oral.Susp) 40 mg PO TID [facility] Last Admin: 10/11/22 15:48 Dose: 40 mg Documented By: KALI Melatonin (Melatonin 3 Mg Tablet) 3 mg PO BEDTIME [facility] Last Admin: 10/10/22 20:20 Dose: 3 mg Documented By: CHICO Polyethylene Glycol (Polyethylene Glycol 3350 17 Gm Powd.Pack) 17 gm PO DAILY PRN PRN Reason: Constipation Potassium Chloride (Potassium Chloride Er 10 Meq Capsule.Er) 10 meq PO DAILY [facility] Last Admin: 10/11/22 07:48 Dose: 10 meq Documented By: KALI Senna (Sennosides 8.6 Mg Tablet) 16.2 mg PO DAILY PRN PRN Reason: Constipation Sertraline HCl (Sertraline Hcl 100 Mg Tablet) 200 mg PO DAILY [facility] Last Admin: 10/11/22 07:49 Dose: 200 mg Documented By: KALI Tizanidine HCl (Tizanidine Hcl 4 Mg Tablet) 4 mg PO BEDTIME PRN PRN Reason: Muscle Spasm Labs 10/09/22 01:19 10/09/22 16:51 Labs: Laboratory Results - last 24 hr 10/10/22 10/11/22 10/11/22 19:27 07:32 11:15 POC Glucose 374 H* 203 H COVID-19 (LIS) Negative COVID-19 Clin Com See Note 10/11/22 10/11/22 11:32 15:31 POC Glucose 239 H 267 H COVID-19 (LIS) COVID-19 Clin Com Microbiology Microbiology Results: Microbiology 10/09/22 00:00 Urine Culture - Preliminary Urine clean catch - Urine schmitt top Gram negative nataly Gram negative nataly#2 10/09/22 01:22 Blood Culture - Preliminary Blood - Venous No growth after 48 hours. 10/09/22 01:23 Blood Culture - Preliminary Blood - Venous No growth after 48 hours. Assessment and Plan (1) Obesity hypoventilation syndrome: Status: Acute (2) Acute on chronic respiratory failure with hypoxia and hypercapnia: Status: Acute Plan 61-year-old very morbidly obese female who has got chronic obstructive sleep apnea as well as obesity/hypoventilation and does chronically use nocturnal positive pressure and daytime oxygen also a type 2 diabetic and hypertensive and hyperlipidemic without any coronary history but a number of months ago was noted to be in high-grade AV block probably 3rd degree with symptomatic bradycardia and now has a standard dual-chamber pacemaker, she presented with acute on chronic hypoxic and hypecarbic respriatory failure and was admitted through ICU for rescue BiPAP use and later same day transferred to floor on high flow Acute on chronic respiratory failure with hypoxia and hypercarbia requiring bipap in ICU with good effect She has been weaned successfully to nasal canula at baseline continue baseline oxygen, with goal o2 around 90%, continue nocturnal bipap UTI urine culture growing GNR continue IV ceftraixone blood cultures negative to date chronic diastolic heart failure continue Oral Lasix DMII with hyperglycemia-restart lantus, pre meal insulin and SSI, monitor glucose Hypertension-restart amlodipine/enalapril HLD-Lipitor Mood disorder-Bupropion, stertraline Neuropathy--Gabapentin morbid obesity- obesity hypoventilation contributing to respiratory failure-weight loss advised DVT ppx- heparin full code attending - dr. white dispo - likely return to [facility] tomorrow inpatient for acute on chronic resp needing rescue bipapa and being weaned off high flow Time Spent With Patient Time: Total time managing care of this patient today ____ minutes. Quality Stroke Does the patient have a stroke diagnosis?: No VTE Prior VTE?: No VTE Risk Level:: Medical - moderate - high VTE Device Contraindication: N/A - Device Ordered VTE Drug Contraindication: N/A - Med Ordered
[2022-10-11] MEDS: Melatonin 3 MG TABLET PO (20:02)
[2022-10-11] MEDS: Atorvastatin Calcium 80 MG TABLET PO (20:03)
[2022-10-11 20:27] LABS: Glucose, Whole Blood 312 mg/dL (60-115)
[2022-10-12] VITALS (9 sets, daily range): BP systolic 122–144; BP diastolic 64–76; PULSE 69–89; RESP 16–20; TEMP 36.3–37.1; O2SAT 91–98
[2022-10-12] MEDS: Heparin Sodium,Porcine 5,000 UNIT/ML VIAL 5000 UNIT SUBCUT ×3 (06:08→21:39)
[2022-10-12 08:05] LABS: Glucose, Whole Blood 180 mg/dL (60-115)
[2022-10-12] MEDS: Insulin Lispro 100 UNIT/ML 3 ML VIAL SUBCUT ×7 (08:14→21:38)
[2022-10-12] MEDS: Insulin Glargine,Hum.rec.anlog 100 UNIT/ML 10 ML VIAL 50 UNIT SUBCUT (08:15)
[2022-10-12] MEDS: Megestrol Acetate 400 MG/10 ML ORAL.SUSP 40 MG PO ×3 (08:15→21:38)
[2022-10-12] MEDS: Furosemide 40 MG TABLET PO (08:16)
[2022-10-12] MEDS: Sertraline HCL 100 MG TABLET 200 MG PO (08:16)
[2022-10-12] MEDS: Aspirin 81 MG TAB.CHEW PO (08:16)
[2022-10-12] MEDS: Ferrous Sulfate 324 MG TABLET.DR PO (08:16)
[2022-10-12] MEDS: buPROPion HCl XL 300 MG TAB.ER.24H PO (08:16)
[2022-10-12] MEDS: buPROPion HCl XL 150 MG TAB.ER.24H PO (08:16)
[2022-10-12] MEDS: amLODIPine Besylate 5 MG TABLET PO (08:16)
[2022-10-12] MEDS: Gabapentin 300 MG CAPSULE 600 MG PO ×2 (08:17→21:38)
[2022-10-12] MEDS: Enalapril Maleate 10 MG TABLET 40 MG PO (08:17)
[2022-10-12 10:59] LABS: Glucose, Whole Blood 207 mg/dL (60-115)
[2022-10-12] MEDS: Albuterol/Iprat 2.5/0.5MG 3 ML AMPUL.NEB INHALE ×3 (11:33→19:31)
--- NOTE | 2022-10-12 13:18 | P.PNIM_ITS ---
Subjective Subjective Date of Service: 10/12/22 Interval History: seen and examined this morning follow up for respiratory failure, UTI feeling well reporting urinary hesitancy, no abdominal pain Review of Systems Review of Systems: Yes all other systems are reviewed and are negative Constitutional Constitutional: Denies chills and Denies fever(s) Cardiovascular Cardiovascular: Denies chest pain, Denies palpitations and Denies dyspnea Respiratory Respiratory: Denies cough and Denies dyspnea Gastrointestinal Gastrointestinal: Denies abdominal pain, Denies nausea and Denies vomiting Endocrine Endocrine: Denies palpitations Physical Exam 2 Vital Signs: Vital Signs: Last Vital Signs Temp 97.4 F 10/12/22 11:37 Pulse 82 10/12/22 11:37 Resp 16 10/12/22 11:37 BP 130/67 10/12/22 11:37 Pulse Ox 95 10/12/22 11:37 O2 Del Method 10/12/22 11:37 O2 Flow Rate 3 10/12/22 11:37 FiO2 30 10/11/22 23:05 Oxygen Flow Rate 5 10/09/22 00:27 BMI result Body Mass Index 52.4 Const: General: comfortable, no acute distress, alert and awake Nutritional Appearance: obese Orientation/consciousness: patient oriented x3 Resp: Effort & Inspection: normal respiratory effort, able to speak in comp lete sentences, no respiratory distress and no use of accessory muscles Cardio: Rate: regular rate Heart sounds: S1 normal heart sound present and S2 normal heart sound present GI: Inspection: No distended and Yes obesity Neuro: General: patient oriented x3 and CN's II-XI intact bilaterally Extrem: General: Yes no pedal edema Objective Data Active Medications Acetaminophen (Acetaminophen 325 Mg Tablet) 650 mg PO Q4H PRN PRN Reason: Fever Or Pain Albuterol/Ipratropium (Albuterol/Iprat 2.5/0.5mg 3 Ml Ampul.Neb) 3 ml INHALE RQ4H WHILE AWAKE [facility] Last Admin: 10/12/22 11:33 Dose: 3 ml Documented By: DESHAWN Amlodipine Besylate (Amlodipine Besylate 5 Mg Tablet) 5 mg PO DAILY [facility]; Protocol Last Admin: 10/12/22 08:16 Dose: 5 mg Documented By: LUX Aspirin (Aspirin 81 Mg Tab.Chew) 81 mg PO DAILY [facility] Last Admin: 10/12/22 08:16 Dose: 81 mg Documented By: LUX Atorvastatin Calcium (Atorvastatin Calcium 80 Mg Tablet) 80 mg PO BEDTIME [facility] Last Admin: 10/11/22 20:03 Dose: 80 mg Documented By: ANTOIC Bupropion HCl (Bupropion Hcl Xl 150 Mg Tab.Er.24h) 150 mg PO DAILY [facility] Last Admin: 10/12/22 08:16 Dose: 150 mg Documented By: LUX Bupropion HCl (Bupropion Hcl Xl 300 Mg Tab.Er.24h) 300 mg PO DAILY [facility] Last Admin: 10/12/22 08:16 Dose: 300 mg Documented By: LUX Dextrose (Dextrose 50 % 25 Gm/50 Ml Syringe) 25 gm IVPUSH Q15M PRN; Protocol PRN Reason: per Hypoglycemia Standing Ord. Enalapril Maleate (Enalapril Maleate 10 Mg Tablet) 40 mg PO DAILY [facility]; Protocol Last Admin: 10/12/22 08:17 Dose: 40 mg Documented By: LUX Ferrous Sulfate (Ferrous Sulfate 324 Mg Tablet.Dr) 324 mg PO DAILY [facility] Last Admin: 10/12/22 08:16 Dose: 324 mg Documented By: LUX Fluticasone/Vilanterol (Fluticasone/Vilanterol 100/25 Blst.W.Dev) 1 puff INHALE RDAILY [facility] Last Admin: 10/12/22 07:46 Dose: Not Given Documented By: DESHAWN Non-Admin Reason: Patient Refused Furosemide (Furosemide 40 Mg Tablet) 40 mg PO DAILY [facility]; Protocol Last Admin: 10/12/22 08:16 Dose: 40 mg Documented By: LUX Gabapentin (Gabapentin 300 Mg Capsule) 300 mg PO DAILY@1200 [facility] Last Admin: 10/11/22 11:41 Dose: 300 mg Documented By: SCOT-RIVLA Gabapentin (Gabapentin 300 Mg Capsule) 600 mg PO BID [facility] Last Admin: 10/12/22 08:17 Dose: 600 mg Documented By: LUX Glucose (Glucose Gel 15 Gm Gel..Gram.) 15 gm PO Q15M PRN; Protocol PRN Reason: per Hypoglycemia Standing Ord. Heparin Sodium (Porcine) (Heparin Sodium,Porcine 5,000 Unit/Ml Vial) 5,000 unit SUBCUT Q8H [facility] Last Admin: 10/12/22 12:48 Dose: 5,000 unit Documented By: VENUS Ceftriaxone Sodium 1 gm/ (Sodium Chloride) 50 mls @ 100 mls/hr IV Q24H [facility] Last Infusion: 10/11/22 12:27 Dose: 0 mls/hr Documented By: SCOT-PONCE Insulin Glargine (Insulin Glargine,Hum.Rec.Anlog 100 Unit/Ml 10 Ml Vial) 50 unit SUBCUT DAILY [facility] Last Admin: 10/12/22 08:15 Dose: 50 unit Documented By: LUX Insulin Human Lispro (Insulin Lispro 100 Unit/Ml 3 Ml Vial) 0 unit SUBCUT QIDACHS [facility]; Protocol Last Admin: 10/12/22 12:48 Dose: 4 unit Documented By: VENUS Insulin Human Lispro (Insulin Lispro 100 Unit/Ml 3 Ml Vial) 5 unit SUBCUT TIDAC [facility] Last Admin: 10/12/22 12:49 Dose: 5 unit Documented By: VENUS Megestrol Acetate (Megestrol Acetate 400 Mg/10 Ml Oral.Susp) 40 mg PO TID [facility] Last Admin: 10/12/22 08:15 Dose: 40 mg Documented By: LUX Melatonin (Melatonin 3 Mg Tablet) 3 mg PO BEDTIME [facility] Last Admin: 10/11/22 20:02 Dose: 3 mg Documented By: ANTOIC Polyethylene Glycol (Polyethylene Glycol 3350 17 Gm Powd.Pack) 17 gm PO DAILY PRN PRN Reason: Constipation Potassium Chloride (Potassium Chloride Er 10 Meq Capsule.Er) 10 meq PO DAILY [facility] Last Admin: 10/12/22 08:16 Dose: 10 meq Documented By: LUX Senna (Sennosides 8.6 Mg Tablet) 16.2 mg PO DAILY PRN PRN Reason: Constipation Sertraline HCl (Sertraline Hcl 100 Mg Tablet) 200 mg PO DAILY [facility] Last Admin: 10/12/22 08:16 Dose: 200 mg Documented By: LUX Tizanidine HCl (Tizanidine Hcl 4 Mg Tablet) 4 mg PO BEDTIME PRN PRN Reason: Muscle Spasm Labs 10/09/22 01:19 10/09/22 16:51 Labs: Laboratory Results - last 24 hr 10/11/22 10/11/22 10/12/22 15:31 20:24 07:56 POC Glucose 267 H 312 H 180 H 10/12/22 10:53 POC Glucose 207 H Microbiology Microbiology Results: Microbiology 10/09/22 00:00 Urine Culture - Preliminary Urine clean catch - Urine schmitt top Escherichia coli Klebsiella pneumoniae Assessment and Plan (1) Acute on chronic respiratory failure with hypoxia and hypercapnia: Status: Acute (2) UTI (urinary tract infection): Status: Acute Plan 61-year-old very morbidly obese female who has got chronic obstructive sleep ap roseline as well as obesity/hypoventilation and does chronically use nocturnal positive pressure and daytime oxygen also a type 2 diabetic and hypertensive and hyperlipidemic without any coronary history but a number of months ago was noted to be in high-grade AV block probably 3rd degree with symptomatic bradycardia and now has a standard dual-chamber pacemaker, she presented with acute on chronic hypoxic and hypecarbic respriatory failure and was admitted through ICU for rescue BiPAP use and later same day transferred to floor on high flow Acute on chronic respiratory failure with hypoxia and hypercarbia requiring bipap in ICU with good effect She has been weaned successfully to nasal canula at baseline continue baseline oxygen, with goal o2 around 90%, continue nocturnal bipap UTI urine culture growing e.coli and klebsiella, possibly resistant organism, lab re-testing for confirmation continue IV ceftraixone blood cultures negative to date chronic diastolic heart failure continue Oral Lasix DMII with hyperglycemia-restart lantus, pre meal insulin and SSI, monitor glucose Hypertension-restart amlodipine/enalapril HLD-Lipitor Mood disorder-Bupropion, stertraline Neuropathy--Gabapentin morbid obesity- obesity hypoventilation contributing to respiratory failure-weight loss advised DVT ppx- heparin full code attending - dr. morin dispo - likely return to [facility] tomorrow inpatient for UTI, IV abx Time Spent With Patient Time: Total time managing care of this patient today ____ minutes. Quality Stroke Does the patient have a stroke diagnosis?: No VTE Prior VTE?: No VTE Risk Level:: Medical - moderate - high VTE Device Contraindication: N/A - Device Ordered VTE Drug Contraindication: N/A - Med Ordered
[2022-10-12] MEDS: Gabapentin 300 MG CAPSULE PO (13:38)
[2022-10-12 15:37] LABS: Glucose, Whole Blood 298 mg/dL (60-115)
[2022-10-12] MEDS: cefTRIAXone sodium 1 GM in 0.9 % Sodium Chloride 50 ML IV (15:45)
[2022-10-12 20:41] LABS: Glucose, Whole Blood 274 mg/dL (60-115)
[2022-10-12] MEDS: Atorvastatin Calcium 80 MG TABLET PO (21:38)
[2022-10-12] MEDS: Melatonin 3 MG TABLET PO (21:40)
[2022-10-12] MEDS: TiZANidine HCL 4 MG TABLET PO (23:59)
[2022-10-13] VITALS (12 sets, daily range): BP systolic 106–144; BP diastolic 54–84; PULSE 65–96; RESP 14–23; TEMP 36–37.2; O2SAT 91–96
[2022-10-13] MEDS: Heparin Sodium,Porcine 5,000 UNIT/ML VIAL 5000 UNIT SUBCUT ×3 (04:00→20:00)
[2022-10-13 07:32] LABS: Glucose, Whole Blood 226 mg/dL (60-115)
[2022-10-13] MEDS: Albuterol/Iprat 2.5/0.5MG 3 ML AMPUL.NEB INHALE ×4 (07:38→19:33)
[2022-10-13] MEDS: Insulin Lispro 100 UNIT/ML 3 ML VIAL SUBCUT ×7 (08:25→20:01)
[2022-10-13] MEDS: Insulin Glargine,Hum.rec.anlog 100 UNIT/ML 10 ML VIAL 50 UNIT SUBCUT (08:25)
[2022-10-13] MEDS: buPROPion HCl XL 150 MG TAB.ER.24H PO (08:28)
[2022-10-13] MEDS: Aspirin 81 MG TAB.CHEW PO (08:28)
[2022-10-13] MEDS: buPROPion HCl XL 300 MG TAB.ER.24H PO (08:28)
[2022-10-13] MEDS: Gabapentin 300 MG CAPSULE 600 MG PO ×2 (08:28→19:59)
[2022-10-13] MEDS: Ferrous Sulfate 324 MG TABLET.DR PO (08:28)
[2022-10-13] MEDS: amLODIPine Besylate 5 MG TABLET PO (08:29)
[2022-10-13] MEDS: Megestrol Acetate 400 MG/10 ML ORAL.SUSP 40 MG PO ×3 (08:29→20:01)
[2022-10-13] MEDS: Enalapril Maleate 10 MG TABLET 40 MG PO (08:29)
[2022-10-13] MEDS: Furosemide 40 MG TABLET PO (08:29)
[2022-10-13] MEDS: Sertraline HCL 100 MG TABLET 200 MG PO (08:29)
[2022-10-13 11:34] LABS: Glucose, Whole Blood 300 mg/dL (60-115)
[2022-10-13] MEDS: Gabapentin 300 MG CAPSULE PO (12:11)
[2022-10-13] MEDS: cefTRIAXone sodium 1 GM in 0.9 % Sodium Chloride 50 ML IV (12:15)
--- NOTE | 2022-10-13 14:03 | MHC.CM.PN ---
Per CHASE/Bonnie, Patient is medically cleared for dc to return to [facility]. Per Elyssa at [facility], Patient will require insurance authorization in order to return and that cannot be obtained on a Friday. CM has asked [facility] to initiate the auth process first thing on 10/14/2022. CM will follow.
--- NOTE | 2022-10-13 14:32 | P.PNIM_ITS ---
Subjective Subjective Date of Service: 10/13/22 Interval History: seen and examined this morning follow up for respiratory failure/UTI no sob or cough feels to be at baseline no abdominal pain, nausea or vomiting Review of Systems Review of Systems: Yes all other systems are reviewed and are negative Constitutional Constitutional: Denies chills and Denies fever(s) Cardiovascular Cardiovascular: Denies chest pain, Denies palpitations and Denies dyspnea Respiratory Respiratory: Denies cough and Denies dyspnea Gastrointestinal Gastrointestinal: Denies abdominal pain, Denies nausea and Denies vomiting Endocrine Endocrine: Denies palpitations Physical Exam Vital Signs: Vital Signs: Last Vital Signs Temp 97.2 F 10/13/22 11:28 Pulse 75 10/13/22 11:28 Resp 14 10/13/22 11:28 BP 106/54 L 10/13/22 11:28 Pulse Ox 96 10/13/22 11:28 O2 Del Method 10/13/22 11:28 O2 Flow Rate 3 10/13/22 11:28 FiO2 69 10/13/22 07:23 Oxygen Flow Rate 5 10/09/22 00:27 BMI result Body Mass Index 52.4 Const: General: comfortable, no acute distress, alert and awake Nutritional Appearance: obese Orientation/consciousness: patient oriented x3 Resp: Other: diminished breath sounds Effort & Inspection: normal respiratory effort, able to speak in complete sentences, no respiratory distress and no use of accessory muscles Cardio: Rate: regular rate Heart sounds: S1 normal heart sound present and S2 normal heart sound present GI: Inspection: No distended and Yes obesity Neuro: General: patient oriented x3 and CN's II-XI intact bilaterally Extrem: General: Yes no pedal edema Objective Data Active Medications Acetaminophen (Acetaminophen 325 Mg Tablet) 650 mg PO Q4H PRN PRN Reason: Fever Or Pain Albuterol/Ipratropium (Albuterol/Iprat 2.5/0.5mg 3 Ml Ampul.Neb) 3 ml INHALE RQ4H WHILE AWAKE [facility] Last Admin: 10/13/22 11:24 Dose: 3 ml Documented By: DESHAWN Amlodipine Besylate (Amlodipine Besylate 5 Mg Tablet) 5 mg PO DAILY [facility]; Protocol Last Admin: 10/13/22 08:29 Dose: 5 mg Documented By: NICHOLAS Aspirin (Aspirin 81 Mg Tab.Chew) 81 mg PO DAILY [facility] Last Admin: 10/13/22 08:28 Dose: 81 mg Documented By: NICHOLAS Atorvastatin Calcium (Atorvastatin Calcium 80 Mg Tablet) 80 mg PO BEDTIME [facility] Last Admin: 10/12/22 21:38 Dose: 80 mg Documented By: RICKI Bupropion HCl (Bupropion Hcl Xl 150 Mg Tab.Er.24h) 150 mg PO DAILY [facility] Last Admin: 10/13/22 08:28 Dose: 150 mg Documented By: NICHOLAS Bupropion HCl (Bupropion Hcl Xl 300 Mg Tab.Er.24h) 300 mg PO DAILY [facility] Last Admin: 10/13/22 08:28 Dose: 300 mg Documented By: NICHOLAS Dextrose (Dextrose 50 % 25 Gm/50 Ml Syringe) 25 gm IVPUSH Q15M PRN; Protocol PRN Reason: per Hypoglycemia Standing Ord. Enalapril Maleate (Enalapril Maleate 10 Mg Tablet) 40 mg PO DAILY [facility]; Protocol Last Admin: 10/13/22 08:29 Dose: 40 mg Documented By: NICHOLAS Ferrous Sulfate (Ferrous Sulfate 324 Mg Tablet.Dr) 324 mg PO DAILY [facility] Last Admin: 10/13/22 08:28 Dose: 324 mg Documented By: NICHOLAS Fluticasone/Vilanterol (Fluticasone/Vilanterol 100/25 Blst.W.Dev) 1 puff INHALE RDAILY [facility] Last Admin: 10/13/22 07:41 Dose: Not Given Documented By: ROYCE Non-Admin Reason: Patient Refused Furosemide (Furosemide 40 Mg Tablet) 40 mg PO DAILY [facility]; Protocol Last Admin: 10/13/22 08:29 Dose: 40 mg Documented By: NICHOLAS Gabapentin (Gabapentin 300 Mg Capsule) 300 mg PO DAILY@1200 [facility] Last Admin: 10/13/22 12:11 Dose: 300 mg Documented By: NICHOLAS Gabapentin (Gabapentin 300 Mg Capsule) 600 mg PO BID [facility] Last Admin: 10/13/22 08:28 Dose: 600 mg Documented By: NICHOLAS Glucose (Glucose Gel 15 Gm Gel..Gram.) 15 gm PO Q15M PRN; Protocol PRN Reason: per Hypoglycemia Standing Ord. Heparin Sodium (Porcine) (Heparin Sodium,Porcine 5,000 Unit/Ml Vial) 5,000 unit SUBCUT Q8H [facility] Last Admin: 10/13/22 12:10 Dose: 5,000 unit Documented By: NICHOLAS Meropenem 1 gm/ Sodium (Chloride) 100 mls @ 200 mls/hr IV Q8H [facility] Insulin Glargine (Insulin Glargine,Hum.Rec.Anlog 100 Unit/Ml 10 Ml Vial) 50 unit SUBCUT DAILY [facility] Last Admin: 10/13/22 08:25 Dose: 50 unit Documented By: NICHOLAS Insulin Human Lispro (Insulin Lispro 100 Unit/Ml 3 Ml Vial) 0 unit SUBCUT QIDACHS [facility]; Protocol Last Admin: 10/13/22 12:10 Dose: 8 unit Documented By: NICHOLAS Insulin Human Lispro (Insulin Lispro 100 Unit/Ml 3 Ml Vial) 5 unit SUBCUT TIDAC [facility] Last Admin: 10/13/22 12:10 Dose: 5 unit Documented By: NICHOLAS Megestrol Acetate (Megestrol Acetate 400 Mg/10 Ml Oral.Susp) 40 mg PO TID [facility] Last Admin: 10/13/22 08:29 Dose: 40 mg Documented By: NICHOLAS Melatonin (Melatonin 3 Mg Tablet) 3 mg PO BEDTIME [facility] Last Admin: 10/12/22 21:40 Dose: 3 mg Documented By: RICKI Polyethylene Glycol (Polyethylene Glycol 3350 17 Gm Powd.Pack) 17 gm PO DAILY PRN PRN Reason: Constipation Potassium Chloride (Potassium Chloride Er 10 Meq Capsule.Er) 10 meq PO DAILY [facility] Last Admin: 10/13/22 08:29 Dose: 10 meq Documented By: NICHOLAS Senna (Sennosides 8.6 Mg Tablet) 16.2 mg PO DAILY PRN PRN Reason: Constipation Sertraline HCl (Sertraline Hcl 100 Mg Tablet) 200 mg PO DAILY [facility] Last Admin: 10/13/22 08:29 Dose: 200 mg Documented By: NICHOLAS Tizanidine HCl (Tizanidine Hcl 4 Mg Tablet) 4 mg PO BEDTIME PRN PRN Reason: Muscle Spasm Last Admin: 10/12/22 23:59 Dose: 4 mg Documented By: GORANK Labs 10/09/22 01:19 10/09/22 16:51 Labs: Laboratory Results - last 24 hr 0110/12/22 10/13/22 15:30 20:36 07:22 POC Glucose 298 H 274 H 226 H 10/13/22 11:27 POC Glucose 300 H Microbiology Microbiology Results: Microbiology 10/09/22 00:00 Urine Culture - Final Urine clean catch - Urine schmitt top Escherichia coli Klebsiella pneumoniae Assessment and Plan (1) UTI (urinary tract infection): Status: Acute Plan 61-year-old very morbidly obese female who has got chronic obstructive sleep apnea as well as obesity/hypoventilation and does chronically use nocturnal positive pressure and daytime oxygen also a type 2 diabetic and hypertensive and hyperlipidemic without any coronary history but a number of months ago was noted to be in high-grade AV block probably 3rd degree with symptomatic bradycardia and now has a standard dual-chamber pacemaker, she presented with acute on chronic hypoxic and hypecarbic respriatory failure and was admitted through ICU for rescue BiPAP use and later same day transferred to floor on high flow Acute on chronic respiratory failure with hypoxia and hypercarbia requiring bipap in ICU with good effect She has been weaned successfully to nasal canula at baseline continue baseline oxygen, with goal o2 around 90%, continue nocturnal bipap UTI urine culture growing e.coli and ESBL +klebsiella no evidence of sepsis, mild symptoms will change to meropenem, plan for d/c on po fosfomycin 3gm, 2 doses, 3 days apart blood cultures negative to date chronic diastolic heart failure continue Oral Lasix DMII with hyperglycemia-continue lantus, pre meal insulin and SSI, monitor glucose Hypertension- continue amlodipine/enalapril HLD-Lipitor Mood disorder-Bupropion, sertraline Neuropathy--Gabapentin morbid obesity- obesity hypoventilation contributing to respiratory failure-weight loss advised DVT ppx- heparin full code attending - dr. patience colmenares - likely return to [facility] tomorrow inpatient for UTI, IV abx Time Spent With Patient Time: Total time managing care of this patient today ____ minutes. Quality Stroke Does the patient have a stroke diagnosis?: No VTE Prior VTE?: No VTE Risk Level:: Medical - moderate - high VTE Device Contraindication: N/A - Device Ordered VTE Drug Contraindication: N/A - Med Ordered
[2022-10-13 15:45] LABS: Glucose, Whole Blood 303 mg/dL (60-115)
[2022-10-13 19:34] LABS: Glucose, Whole Blood 365 mg/dL (60-115)
[2022-10-13] MEDS: Atorvastatin Calcium 80 MG TABLET PO (20:00)
[2022-10-13] MEDS: Melatonin 3 MG TABLET PO (20:02)
[2022-10-13] MEDS: TiZANidine HCL 4 MG TABLET PO (21:13)
[2022-10-14] VITALS (7 sets, daily range): BP systolic 122–152; BP diastolic 64–82; PULSE 61–89; RESP 17–21; TEMP 36.1–36.6; O2SAT 91–94
[2022-10-14] MEDS: Heparin Sodium,Porcine 5,000 UNIT/ML VIAL 5000 UNIT SUBCUT ×2 (04:31→11:55)
[2022-10-14 07:44] LABS: Glucose, Whole Blood 207 mg/dL (60-115)
[2022-10-14] MEDS: Albuterol/Iprat 2.5/0.5MG 3 ML AMPUL.NEB INHALE ×2 (08:09→12:28)
[2022-10-14] MEDS: Fluticasone/Vilanterol 100/25 BLST.W.DEV 1 PUFF INHALE (08:09)
[2022-10-14] MEDS: Insulin Glargine,Hum.rec.anlog 100 UNIT/ML 10 ML VIAL 50 UNIT SUBCUT (08:23)
[2022-10-14] MEDS: Insulin Lispro 100 UNIT/ML 3 ML VIAL SUBCUT ×4 (08:24→11:54)
[2022-10-14] MEDS: buPROPion HCl XL 150 MG TAB.ER.24H PO (08:25)
[2022-10-14] MEDS: Enalapril Maleate 10 MG TABLET 40 MG PO (08:25)
[2022-10-14] MEDS: Gabapentin 300 MG CAPSULE 600 MG PO (08:26)
[2022-10-14] MEDS: amLODIPine Besylate 5 MG TABLET PO (08:26)
[2022-10-14] MEDS: buPROPion HCl XL 300 MG TAB.ER.24H PO (08:26)
[2022-10-14] MEDS: Ferrous Sulfate 324 MG TABLET.DR PO (08:26)
[2022-10-14] MEDS: Furosemide 40 MG TABLET PO (08:26)
[2022-10-14] MEDS: Sertraline HCL 100 MG TABLET 200 MG PO (08:26)
[2022-10-14] MEDS: Aspirin 81 MG TAB.CHEW PO (08:26)
[2022-10-14] MEDS: Megestrol Acetate 400 MG/10 ML ORAL.SUSP 40 MG PO (08:27)
[2022-10-14 11:08] LABS: Glucose, Whole Blood 308 mg/dL (60-115)
--- NOTE | 2022-10-14 11:17 | MHC.CM.PN ---
pt to be dcd today back to [facility] at [facility]
--- NOTE | 2022-10-14 11:54 | MHC.CM.PN ---
pt s notifioed of dc
[2022-10-14] MEDS: Gabapentin 300 MG CAPSULE PO (11:55)
[2022-10-14 12:52] LABS: COVID-19 Test Negative (Negative); IDNOW Serial# 9DB6401D
--- NOTE | 2022-10-14 12:53 | PM.DS ---
DS: Providers Provider Date of Service: 10/14/22 Date of admission: 10/09/22 11:28 Primary care physician: Tita Bal MD Consults: 10/14/22 11:26 Consult to Infectious Diseases Stat Consulting Provider: Odalis Holley Reason for consultation: MEROPENEM ORDER Attending physician on discharge: Jairo Velazquez Discharging clinician: Belinda Brooks DS: Diagnosis Discharge Diagnosis (1) UTI (urinary tract infection): Status: Acute DS: Summary Hospital Course Hospital Course: HP as per admitting provider 61-year-old very morbidly obese female who has got chronic obstructive sleep apnea as well as obesity/hypoventilation and does chronically use nocturnal positive pressure and daytime oxygen also a type 2 diabetic and hypertensive and hyperlipidemic without any coronary history but a number of months ago was noted to be in high-grade AV block probably 3rd degree with symptomatic bradycardia and now has a standard dual-chamber pacemaker with right atrial and right ventricular wire and has 100% ventricularly paced with a pacing induced left bundle branch block. They thought she might have been hallucinating in the residential but she was very conversational very lucid oriented x3 nonfocal neurologically here but she came in with an acute on chronic hypercapnic respiratory failure not having been on BiPAP last night none and compensated immediately on BiPAP and apparently she chronically lives with a pCO2 of 70-75 with a compensated pH and went pCO2 went up to 88 is when they probably had question some alteration but that is never been demonstrated here in the hospital. She denies nor does she appear to have any form of respiratory distress no complaints of dyspnea no difference no fever no chills no productive cough and no chest discomfort and I stopped on a lot of her medications at home which did include a combination of antidepressants and p.r.n. oxycodone and that may have been a little bit of a contributing factor and all I have her on right now or just albuterol inhalations no steroids no antibiotics although she received 1 dose of ceftriaxone for no apparent reason in the emergency room and she also has chronic stage III renal insufficiency acute on chronic and she was on a fairly high dose of E now a prelude as well as Lasix chronically and I have held those for now her most recent potassium being 5.8 I just had concerns with the HEATHER-inhibitor and we are awaiting a repeat on her chemistry but the most recent VBG on nasal high-flow at 50 liters/minute and a very low FiO2 of 30% she has a 90% oxygen saturation and the best pCO2 she has had in a while at 66 so it looks like it she could be comfortable on nasal high-flow when she eats and during the day otherwise and maybe that could be weaned over a short period of time and at night she needs to be on BiPAP but on the AV APS mode aiming for tidal volume of about 600 cc empirically . Acute on chronic respiratory failure with hypoxia and hypercarbia requiring bipap in ICU initially. She has been weaned successfully to nasal canula at baseline continue baseline oxygen, with goal o2 around 90%, continue nocturnal bipap UTI. urine culture growing e.coli and ESBL +klebsiella. Treated with meropenem. Plan for discharge with fosfomycin 3 g x 2 doses 3 days apart blood cultures negative to date Chronic diastolic heart failure. Continue oral Lasix Diabetes mellitus type 2 continue medications Hypertension. Continue amlodipine and enalapril Hyperlipidemia. Continue statin Mental health. Continue home medications Neuropathy. Continue gabapentin Morbid obesity. Discussed importance of weight management as this may be contributing to worsening of other comorbidities Time Spent with Patient Time attestation: Total time managing care of this patient today ____ minutes. Discharge coordination time: Greater than 30 minutes Quality: Safe Use of Opioids Does Pt have an Active Cancer Diagnosis on the Problem List?: No Quality: Stroke Does the patient have a stroke diagnosis?: No Physical Exam Vital Signs: Vital Signs: Last Vital Signs Temp 97.3 F 10/14/22 11:42 Pulse 89 10/14/22 12:30 Resp 20 10/14/22 12:30 BP 152/64 H 10/14/22 11:42 Pulse Ox 92 10/14/22 11:42 O2 Del Method 10/14/22 11:42 O2 Flow Rate 3 10/13/22 19:26 FiO2 69 10/13/22 07:23 Oxygen Flow Rate 5 10/09/22 00:27 BMI result Body Mass Index 52.4 Appearing in no acute distress head is normocephalic atraumatic eyes pupils are PERRLA sclera is anicteric mouth throat mucous membranes are intact and moist neck is supple no lymphadenopathy, no JVD noted lung sounds are clear to auscultation heart regular rate rhythm, clear S1, S2 positive bowel sounds, abdomen is soft, nontender, obese neuro patient is alert x3, no focal deficits DS: Data Data Completed and Pending Completed studies during hospitalization [Text1]: Procedures Assistance with Respiratory Ventilation, Less than 24 Consecutive Hours, Continuous Positive Airway Pressure (03/27/22) Insertion of Endotracheal Airway into Trachea, Via Natural or Artificial Opening (11/18/21) Insertion of Infusion Device into Superior Vena Cava, Percutaneous Approach (11/18/21) Introduction of Vasopressor into Peripheral Vein, Percutaneous Approach (11/18/21) Respiratory Ventilation, 24-96 Consecutive Hours (11/18/21) Ultrasonography of Superior Vena Cava, Guidance (11/18/21) Labs on day of discharge: Laboratory Results - last 24 hr 10/13/22 10/13/22 10/14/22 15:39 19:28 07:40 POC Glucose 303 H 365 H* 207 H COVID-19 (LIS) COVID-19 Clin Com 10/14/22 10/14/22 11:04 11:40 POC Glucose 308 H COVID-19 (LIS) Negative COVID-19 Clin Com See Note Discharge Plan Discharge Anticipated Discharge Date/Time: 10/14/22 12:40 Patient Disposition: Xfer Inpatient Rehab Fac Discharge Diagnosis: Acute on chronic respiratory failure with hypoxia and hypercarbia UTI [facility]: [facility] [Other] - 1 Week Tita Bal MD [Primary Care Provider] - 1 Week Discharge Medications: New fosfomycin tromethamine 3 gram packet 1 packet PO Q3D 2 Days Qty: 2 0RF Continued furosemide 40 mg Tablet 40 mg PO DAILY Qty: 30 0RF Protocol: Hold for SBP< HOLD for SBP < : 90 ipratropium-albuterol 0.5 mg-3 mg(2.5 mg base)/3 mL Solution For Nebulization 3 ml INHALATION TID potassium chloride 10 mEq Tablet Extended Release 10 meq PO DAILY Culturelle 10 billion cell Capsule 1 cap PO DAILY bupropion HCl 150 mg tablet extended release 24 hr 1 tab PO DAILY insulin glargine [Lantus Solostar U-100 Insulin] 100 unit/mL (3 mL) Insulin Pen 50 unit SUBCUT QAM atorvastatin 80 mg Tablet 80 mg PO BEDTIME sennosides [senna] 8.6 mg Tablet 16.2 mg PO DAILY PRN (Reason: Constipation) acetaminophen 325 mg Tablet 650 mg PO Q4H PRN (Reason: Fever Or Pain) polyethylene glycol 3350 [Miralax] 17 gram Powder In Packet 17 g PO DAILY PRN (Reason: Constipation) tizanidine 4 mg Tablet 4 mg PO BEDTIME PRN (Reason: Muscle Spasm) enalapril maleate 20 mg Tablet 40 mg PO DAILY sertraline 100 mg Tablet 200 mg PO DAILY melatonin 3 mg Tablet 3 mg PO BEDTIME ferrous sulfate 325 mg (65 mg iron) Tablet 325 mg PO DAILY gabapentin 300 mg Capsule 300 mg PO DAILY@1200 gabapentin 300 mg Capsule 600 mg PO BID insulin lispro 100 unit/mL Insulin Pen See Protocol SUBCUT QIDACHS Protocol: Insulin Correction Scale Less than or equal to 110 ---- Give (units): 0 111 to 150 Give (units): 0 151 to 200 Give (units): 2 201 to 250 Give (units): 4 251 to 300 Give (units): 6 301 to 350 Give (units): 8 Greater than 350 Give (units): 10 Call MD if Blood Glucose > : 350 Rx Instructions: SLIDING SCALE fluticasone propion-salmeterol [AirDuo RespiClick] 113-14 mcg/actuation aerosol powdr breath activated 1 inh inhalation BID Qty: 1 0RF amlodipine 5 mg Tablet 5 mg PO DAILY 30 Days Qty: 30 0RF Protocol: Hold for SBP< HOLD for SBP < : 90 aspirin 81 mg Tablet,Chewable 81 mg PO DAILY megestrol 400 mg/10 mL (10 mL) Suspension 40 mg PO TID bupropion HCl 300 mg tablet extended release 24 hr 300 mg PO DAILY insulin lispro 100 unit/mL solution 5 unit subcut TIDAC Discharge Orders: Discharge Order (Routine); Ordered 10/14/22 Ordered By: Belinda Brooks Diet: Advance to usual diet Activity on Discharge: As tolerated Stand Alone Forms: Patient Portal Discharge page Care Plan Goals: continue using CPAP machine and oxygen Weight loss Health Concerns: Acute on chronic respiratory failure with hypoxia and hypercarbia UTI Plan of Treatment: Follow-up with primary care provider as needed Take all medications as prescribed Assessment: See discharge summary
== END 2022-10-14 13:55 | DRG 291 ==
LOC: HO.ED 11:03 → HO.EDOVER 11:48 → HO.ICU 11:51 → HO.IMC 17:52
PROVIDERS: Hospitalist; Internal Medicine; Physician Assistant Medical; Admitting Provider Internal Medicine Cardiovascular Disease; Emergency Provider Emergency Medicine; PCP Internal Medicine; Visit Provider Nurse Practitioner Acute Care
DX: I13.0 Hypertensive heart and chronic kidney disease with heart failure and stage 1 through stage 4 chronic kidney disease, or unspecified chronic kidney disease (principal); J96.21 Acute and chronic respiratory failure with hypoxia; J96.22 Acute and chronic respiratory failure with hypercapnia; I50.32 Chronic diastolic (congestive) heart failure; E66.2 Morbid (severe) obesity with alveolar hypoventilation; Z68.43 Body mass index [BMI] 50.0-59.9, adult; N39.0 Urinary tract infection, site not specified; F39 Unspecified mood [affective] disorder; E11.40 Type 2 diabetes mellitus with diabetic neuropathy, unspecified; E78.5 Hyperlipidemia, unspecified; B96.20 Unspecified Escherichia coli [E. coli] as the cause of diseases classified elsewhere; N18.30 Chronic kidney disease, stage 3 unspecified; E11.22 Type 2 diabetes mellitus with diabetic chronic kidney disease; N28.9 Disorder of kidney and ureter, unspecified; B96.1 Klebsiella pneumoniae [K. pneumoniae] as the cause of diseases classified elsewhere; I49.5 Sick sinus syndrome; Z95.0 Presence of cardiac pacemaker; Z87.891 Personal history of nicotine dependence; Z91.040 Latex allergy status; Z88.6 Allergy status to analgesic agent; Z88.8 Allergy status to other drugs, medicaments and biological substances; Z79.4 Long term (current) use of insulin; Z79.51 Long term (current) use of inhaled steroids; Z79.82 Long term (current) use of aspirin; Z79.899 Other long term (current) drug therapy
CPT/HCPCS: 36415; 36600; 71045; 71250; 80048; 80076; 80307; 81001; 82803; 82947; 83605; 83735; 83880; 84484; 85025; 85610; 87040; 87086; 87088; 87186; 87635; 93005; 94640; 94660; 99285; C1758; J0696; J1170; J1643; J1940; J2185

== ENCOUNTER → 2022-10-21 13:35 | Outpatient (BNVA) | payer OTHER, MEDICARE, MEDICAID, SELFPAY | PROVIDERS: PCP Internal Medicine; Visit Provider Internal Medicine | DX: I44.2 Atrioventricular block, complete (principal) | CPT/HCPCS: 93280 ==

== ENCOUNTER 2022-11-08 21:00 | Inpatient (IN) | payer OTHER, MEDICARE, MEDICAID, SELFPAY ==
--- NOTE | ~2022-11-08 | XR_ITS ---
EXAMINATION: XR CHEST CLINICAL INFORMATION: Respiratory failure COMPARISON: Chest x-ray 10/09/2022 TECHNIQUE: Frontal view of the chest was obtained. FINDINGS: Lungs are hypoinflated. Linear subsegmental atelectasis in the right midlung. No pleural effusion or pneumothorax. Cardiac silhouette is partially obscured. Prominent mediastinal width likely exaggerated by low lung volumes. Prominent pulmonary vascular markings also at least partially accentuated artifactually by low lung volumes and AP technique versus pulmonary vascular congestion. No overt pulmonary edema. Left-sided pacer leads project over the right mid right ventricle. Left total shoulder arthroplasty. No acute osseous injury identified. XR/XR chest 1V IMPRESSION: 1. Low lung volumes with linear subsegmental atelectasis in the right midlung. 2. No definite airspace consolidation or pleural effusions. 3. Possible pulmonary vascular congestion.
[2022-11-08 21:10] VITALS: BP 173/97; PULSE 86; O2SAT 92; BMI 45.7
--- NOTE | 2022-11-08 21:10 | ECG_ITS ---
Test Reason : DIFFICULTY BREATHING Blood Pressure : / mmHG Vent. Rate : 080 BPM Atrial Rate : 080 BPM P-R Int : 184 ms QRS Dur : 154 ms QT Int : 410 ms P-R-T Axes : 035 -26 115 degrees QTc Int : 472 ms Normal sinus rhythm Left bundle branch block Abnormal ECG When compared with ECG of 09-OCT-2022 01:21, No significant change was found Referred By: Thais Nguyen Electronically Signed By:SANJANA LAGUERRE
[2022-11-08 21:18] VITALS: PULSE 77; RESP 32; O2SAT 96
[2022-11-08] MEDS: Insulin Regular, Human 100 UNIT/ML 3 ML VIAL 10 UNIT IVPUSH (21:19)
[2022-11-08] MEDS: 0.9 % Sodium Chloride 1,000 ML 999 ML IVCONT (21:21)
--- NOTE | 2022-11-08 21:30 | PC.NURSE ---
Pt alert and oriented to self and place. Unable to speak in full sentences due to dyspnea. Arrived with IV access to left hand. Respiratory at bedside. Pt placed on bipap 16/5 @ 60% o2. o2 sat 97%. Due to pts history of COPD o2 placed @ 40% per respiratory therapist. MD aware. 10u of insulin administered via IV as ordered. Will continue to monitor.
[2022-11-08 22:01] LABS: MANUAL DIFF FLAG NO
[2022-11-08 22:04] LABS: Basophils Percent Auto 0.2 % (0-2); Eosinophils Absolute Auto 0.1 X10*3/uL (0.0-0.4); Hematocrit 39.2 % (37.0-47.0); Hemoglobin 11.6 g/dl (12.0-16.0); Imm Gran Abs Auto 0.04 X10*3/uL (0.00-0.03); Imm Gran Pct Auto 0.5 % (0.0-0.4); Lymphocytes Absolute Auto 1.1 X10*3/uL (1.2-4.9); Mean Corpuscular HGB Conc 29.6 g/dl (31.0-35.0); Mean Corpuscular Hemoglobin 28.5 pg (27.0-33.0); Mean Corpuscular Volume 96.3 fL (80.0-98.0); Mean Platelet Volume 9.4 fL (9.4-12.3); Monocytes Absolute Auto 0.5 X10*3/uL (0.1-1.2); Monocytes Percent Auto 5.9 % (2-11); Neutrophils Absolute Auto 6.3 x10*3/uL (2.0-8.3); Neutrophils Percent Auto 78.4 % (45-73); Platelet Count 241 X10*3/uL (160-400); Red Blood Count 4.07 X10*6/uL (4.20-5.50); Red Cell Distribution Width 13.9 % (11.0-16.0)
[2022-11-08 22:07] LABS: VBG Base Excess 16.4 mmol/L; VBG HCO3 46 mmol/L (22-26); VBG pCO2 90 mmHg; VBG pH 7.32 (7.32-7.43); VBG pO2 87 mmHg
[2022-11-08 22:07] LABS: Venous Blood Gas Refer to POC result
[2022-11-08 22:09] LABS: INTERNATIONAL NORM RATIO 0.9 (0.9-1.1); Prothrombin Time 10.8 SEC (10.0-13.1)
[2022-11-08 22:13] VITALS: BP 160/77; PULSE 96; RESP 29; TEMP 37.6; O2SAT 95
--- NOTE | 2022-11-08 22:15 | PC.NURSE ---
Straight cath performed with 16G catheter. 100cc of cloudy yellow urine in collection bag. Urine sample sent to the lab. Pt tolerated the procedure well. Will continue to monitor.
[2022-11-08 22:18] LABS: COVID-19 Test Negative (Negative); IDNOW Serial# 6674DD1D
[2022-11-08 22:20] LABS: Lactic Acid 1.1 mmol/L (0.5-2.0)
[2022-11-08 22:21] LABS: IDNOW Serial# 55D5AD1C; Influenza A Negative (Negative); Influenza B2 Negative (Negative)
[2022-11-08 22:27] LABS: B Type Natriuretic Peptide < 10 pg/mL (<100)
[2022-11-08 22:30] LABS: Troponin-I High Sensitivity 18.6 ng/L (<3.5-17.0)
[2022-11-08 22:32] VITALS: BP 118/88; PULSE 73; RESP 22; O2SAT 95
[2022-11-08 22:35] LABS: Appearance Urine Clear; Color Urine Yellow; Glucose Urine UA >=1000 mg/dL (Negative); Leukocyte Esterase Urine Small (1+) (Negative); Nitrite Urine Positive (Negative); Specific Gravity - Urine >= 1.030 (1.005-1.025); UMIC TRIGGER UACC YES; Urine Blood Moderate (2+) (Negative); Urine Ketones Negative (Negative); Urine Protein Negative (Neg-Trace)
[2022-11-08 22:45] LABS: Alanine Aminotransferase 14 U/L (0-31); Albumin Level 3.5 g/dL (3.5-5.0); Alkaline Phosphatase 68 U/L (39-117); Anion Gap 12 (12-20); Aspartate Amino Transferase 10 U/L (5-31); Bilirubin Direct < 0.2 mg/dL (0.0-0.5); Bilirubin Total 0.2 mg/dL (0.0-1.0); Blood Urea Nitrogen 29 mg/dL (9-16); Calcium 8.8 mg/dL (8.4-10.2); Carbon Dioxide 41 mmol/L (22-29); Chloride 96 mmol/L (96-108); Creatinine Clr Calc Pharmacy 70.4; Estimated Glomerular Filt Rate 50; Glucose Random 326 mg/dL (60-115); Potassium 4.7 mmol/L (3.3-5.1); Sodium 144 mmol/L (135-145); Total Protein 6.5 g/dL (6.5-8.0)
[2022-11-08 23:10] LABS: Bacteria Urine 2+ (None Seen); RBC Urine >20 /HPF (0-2); UACC Culture Trigger YES; WBC Urine 21-50 /HPF (0-5)
[2022-11-08 23:39] VITALS: BP 164/67; PULSE 70; RESP 17; O2SAT 95
--- NOTE | 2022-11-08 23:47 | ED.GENADULT ---
HPI - General Adult General Chief complaint: Dyspnea Stated complaint: SOB Time Seen by Provider: 11/08/22 21:02 Source: patient and EMS Mode of arrival: EMS Limitations: no limitations History of Present Illness HPI narrative: Patient comes to the emergency room from [facility]. According to the patient and EMS, the patient was brought to the ED via ambulance because patient was hallucinating. Patient states that she does remember that she was hallucinating, states that she has no chest pain or shortness of breath. EMS reports that the staff said the patient needs CPAP at bedtime, but the patient is not compliant. Also, patient had a low oxygen saturation, low 80s on 2 L. When EMS arrived, patient's oxygen saturation remained in the low 80s despite increasing the oxygen to 6 L, patient was put on non-rebreather at 10 L and brought to the emergency room, oxygen improved to 95%. Patient states that she feels completely at baseline. However, patient was seen here 1 month ago with the same story. PCO2 increased while patient was on BiPAP and ended up being admitted to the ICU. Related Data Home Medications Medication Instructions Recorded Confirmed acetaminophen 325 mg tablet 650 mg PO Q4H PRN Fever Or Pain 11/18/21 10/09/22 atorvastatin 80 mg tablet 80 mg PO BEDTIME 11/18/21 10/09/22 enalapril maleate 20 mg tablet 40 mg PO DAILY 11/18/21 10/09/22 ferrous sulfate 325 mg (65 mg 325 mg PO DAILY 11/18/21 10/09/22 iron) tablet gabapentin 300 mg capsule 300 mg PO DAILY@1200 11/18/21 10/09/22 gabapentin 300 mg capsule 600 mg PO BID 11/18/21 10/09/22 insulin lispro 100 unit/mL See Protocol subcut QIDACHS 11/18/21 10/09/22 subcutaneous pen melatonin 3 mg tablet 3 mg PO BEDTIME 11/18/21 10/09/22 polyethylene glycol 3350 17 gram 17 g PO DAILY PRN Constipation 11/18/21 10/09/22 oral powder packet (Miralax) sennosides 8.6 mg tablet (senna) 16.2 mg PO DAILY PRN Constipation 11/18/21 10/09/22 sertraline 100 mg tablet 200 mg PO DAILY 11/18/21 10/09/22 tizanidine 4 mg tablet 4 mg PO BEDTIME PRN Muscle Spasm 11/18/21 10/09/22 aspirin 81 mg chewable tablet 81 mg PO DAILY 01/05/22 10/09/22 megestrol 400 mg/10 mL (10 mL) 40 mg PO TID 01/05/22 10/09/22 oral suspension bupropion HCl 300 mg 24 hr tablet, 300 mg PO DAILY 04/09/22 10/09/22 extended release insulin lispro 100 unit/mL 5 unit subcut TIDAC 04/09/22 10/09/22 subcutaneous solution Lactobacillus rhamnosus GG 10 1 cap PO DAILY 10/09/22 10/09/22 billion cell capsule (Culturelle) bupropion HCl 150 mg 24 hr tablet, 1 tab PO DAILY 10/09/22 10/09/22 extended release ipratropium 0.5 mg-albuterol 3 mg 3 ml inhalation TID 10/09/22 10/09/22 (2.5 mg base)/3 mL nebulization soln potassium chloride 10 mEq 10 meq PO DAILY 10/09/22 10/09/22 tablet,extended release bisacodyl 10 mg rectal suppository 10 mg [place] DAILY PRN 10/21/22 insulin lispro 100 unit/mL 1 sliding scale dose subcut 10/21/22 subcutaneous solution (Humalog USEASDIRECTD U-100 Insulin) ipratropium 0.5 mg-albuterol 3 mg 3 ml inhalation Q6-8H PRN 10/21/22 (2.5 mg base)/3 mL nebulization soln magnesium citrate (Citrate of 150 ml PO DAILY 10/21/22 Magnesia oral) Previous Rx's Medication Instructions Recorded amlodipine 5 mg tablet 5 mg PO DAILY 30 days #30 tabs 11/26/21 fluticasone 113 mcg-salmeterol 14 1 inh inhalation BID #1 ea 11/26/21 mcg/actuation breath activated powdr (AirDuo RespiClick) furosemide 40 mg tablet 40 mg PO DAILY #30 tabs 04/05/22 fosfomycin tromethamine 3 gram 1 packet PO Q3D 2 days #2 ea 10/14/22 oral packet Allergies Allergy/AdvReac Type Severity Reaction Status Date / Time latex Allergy Unknown Unknown Verified 10/21/22 13:48 adhesive tape AdvReac Unknown Unknown Verified 10/21/22 13:48 bupropion [From Wellbutrin] AdvReac Unknown Unknown Verified 10/21/22 13:48 ibuprofen AdvReac Unknown Unknown Verified 10/21/22 13:48 Review of Systems Review of Systems: Constitutional : No Weight loss, No Fever, No Chills, No Night Sweats, No Fatigue, No Malaise, complaining of ?hallucinations? ENT/Mouth : No Hearing loss, No Ear Pain, No Nasal Congestion, No Sinus Pain, No Hoarseness, No sore throat, No Rhinorrhea, No Swallowing Difficulty Eyes: No Eye Pain, No Swelling, No Redness, No Foreign Body, No Discharge, No Vision Changes Cardiovascular : No Chest Pain, No SOB, No Dyspnea on Exertion, No Orthopnea, No Edema, No Palpitations Respiratory : No Cough, No Sputum, No Wheezing, No Smoke Exposure, No Dyspnea Gastrointestinal : No Nausea, No Vomiting, No Diarrhea, No Constipation, No abdominal Pain, No Hematochezia, No Melena Genitourinary : no irregular bleeding, No Dysuria, No Urinary Frequency, No Hematuria, No Urinary Incontinence, No Urgency, No Flank Pain, No Urinary Flow Changes, No Hesitancy Musculoskeletal : No joint pain, No Myalgias, No Joint Swelling Skin : No Skin Lesions, No rash Neuro : No Weakness, No Numbness, No Paresthesias, No Loss of Consciousness, No Dizziness, No Headache Psych : No Anxiety/Panic, No Depression, No SI/HI/AH/VH, No Social Issues, Heme/Lymph: No Bruising, No Bleeding,No Lymphadenopathy Endocrine : No Polyuria, No Polydipsia, No Temperature Intolerance [facility] Past Medical History Medical History Anemia Arthritis Atelectasis of both lungs CHF (congestive heart failure) Clostridium difficile infection Depression Diabetes mellitus, type 2 Diabetic ulcer of foot associated with diabetes mellitus due to underlying condition, with fat layer exposed Hypertension Hypoventilation associated with obesity syndrome Morbid obesity Morbid obesity Obesity hypoventilation syndrome SMILEY (obstructive sleep apnea) Presence of permanent cardiac pacemaker Pulmonary embolism Respiratory failure with hypoxia and hypercapnia Sick sinus syndrome Surgical History History of total knee replacement Social History Social History Household Members: None Housing: Assisted Housing Other:: rehab facility Are you a primary animal caretaker supervisor to a significant other at home: No Do you presently have visiting nurse or other home services: Yes (Cyndee Bowers) Unable to assess alcohol history related to: Unknown Alcohol intake: never Patient Tobacco Use Status: Former Tobacco user Cigarettes Per Day: 0 e-Cigarette/Vaping Use: Never Used Substance Use Type: Unknown service: No Current occupational status: disabled Physical Exam ED Vital Signs: Vital Signs - 24 hr 11/08/22 21:18 11/08/22 22:13 11/08/22 22:32 Temperature 99.6 F Pulse Rate 96 73 Respiratory Rate 32 H 29 H 22 H Blood Pressure 160/77 H 118/88 Pulse Oximetry 95 95 Oxygen Delivery Method BiPAP BiPAP Oxygen Flow Rate 10 10 11/08/22 23:39 11/08/22 23:54 11/09/22 00:49 Temperature Pulse Rate 70 72 Respiratory Rate 17 14 18 Blood Pressure 164/67 H 161/70 H Pulse Oximetry 95 94 Oxygen Delivery Method BiPAP BiPAP Oxygen Flow Rate 10 10 11/09/22 02:53 11/09/22 04:12 Temperature Pulse Rate 72 74 Respiratory Rate 25 H 18 Blood Pressure 153/81 H 147/72 H Pulse Oximetry 93 Oxygen Delivery Method BiPAP Oxygen Flow Rate 10 BMI result Body Mass Index 45.7 Const Other: Appearance: Alert. Oriented X3. No acute distress. Speaking in full sentences Eyes: Pupils equal, round and reactive to light. ENT: Pharynx normal. Neck: Normal inspection. Neck supple. No lymph nodes noted. No crepitus CVS: Normal heart rate and rhythm. Pulses normal. Normal S1 and S2 Respiratory: No respiratory distress. Breath sounds normal. No Wheezing. No rales Abdomen: Soft and nontender. No rigidity. No distention. Skin: Skin warm and dry. Normal skin color. Normal skin turgor. Extremities: No lower extremity edema. No Lacerations. No Rash Neuro: Oriented X 3. No motor deficit. No sensory deficit. Moving all extremities. No slurred speech. CN 2 through 12 grossly intact Psych: calm, cooperative, normal affect Course Course Course Narrative: -patient being started on BiPAP. Patient known to be prone to high pCO2 levels. -reviewing patient's hospitalization notes, patient's pCO2 at baseline runs between 70-75%, compensated, high bicarb -reviewing patient's chart, the last time that she was here, she was diagnosed with ESBL UTI without any urinary symptoms. Today, I recheck the urine, positive again. Discussed management with Dr. Christianson, we will go ahead and start meropenem, which was used on her previous admission. Today, patient does not have any UTI symptoms, same as last admission. -troponin is slightly bumped. Likely secondary to demand ischemia. Patient has no chest pain. We will repeat troponin 3 hours from the 1st time that it was drawn. -EKG shows normal sinus rhythm, left bundle branch block, heart rate 80, QTC 472, no EKG changes from her previous visit Medications Administered Discontinued Medications Generic Name Dose Route Start Last Admin Trade Name Freq PRN Reason Stop Dose Admin Sodium Chloride 1,000 mls @ 999 mls/hr 11/08/22 21:09 11/09/22 02:57 Ns IVCONT 11/08/22 22:09 Infused .Q1H1M ONE Infusion Meropenem 1 gm/ Sodium 100 mls @ 200 mls/hr 11/08/22 23:18 11/09/22 00:21 Chloride IV 11/08/22 23:47 Infused ONCE ONE Infusion Insulin Human Regular 10 unit 11/08/22 21:14 11/08/22 21:19 Insulin Regular, Human 100 Unit/Ml 3 Ml Vial IVPUSH 11/08/22 21:15 10 unit ONCE ONE Administration Medical Decision Making Medical Decision Making MDM Narrative: -the 3 hours of BiPAP, patient's oxygen saturation is slightly improving. PCO2 went from 90-82. Patient's baseline is approximately low 70s. We will check gas again in couple of hours. Troponin 2. Pending. Patient remains asymptomatic -patient has been on BiPAP for 5 hours. Patient is awake and alert. Patient was never confused since she arrived in the emergency room or somnolent. -pCO2 improved from 92 64 which is her baseline. -patient remains on BiPAP. At this time, it is not rescue. Patient is supposed to be using it at bedtime. -patient receive antibiotics for ESBL UTI, meropenem -I discussed the patient with Dr. Christianson, pt admitted Differential Diagnosis Differential Diagnoses: The differential diagnosis associated with the presentation includes Admission/Observation Consideration of admission/observation: Escalation of care including admission/observation considered Consult Healthcare Provider Management of the patient was discussed with: Hospitalist Lab Data MDM Lab Attestation statement: I reviewed the patient's lab results. 11/08/22 21:44 11/08/22 21:44 Labs: Lab Results 11/08/22 11/08/22 11/08/22 Range/Units 21:44 21:44 21:44 WBC 8.0 (4.8-10.8) X10*3/uL RBC 4.07 L (4.20-5.50) X10*6/uL Hgb 11.6 L (12.0-16.0) g/dl Hct 39.2 (37.0-47.0) % MCV 96.3 (80.0-98.0) fL MCH 28.5 (27.0-33.0) pg MCHC 29.6 L (31.0-35.0) g/dl RDW 13.9 (11.0-16.0) % Plt Count 241 (160-400) X10*3/uL MPV 9.4 (9.4-12.3) fL Immature Gran % (Auto) 0.5 H (0.0-0.4) % Neut % (Auto) 78.4 H (45-73) % Lymph % (Auto) 14.0 L (20-40) % [place] % (Auto) 5.9 (2-11) % Eos % (Auto) 1.0 (0-4) % Baso % (Auto) 0.2 (0-2) % Lymph # (Auto) 1.1 L (1.2-4.9) X10*3/uL [place] # (Auto) 0.5 (0.1-1.2) X10*3/uL Eos # (Auto) 0.1 (0.0-0.4) X10*3/uL Baso # (Auto) 0.0 (0.0-0.2) X10*3/uL Abs Immat Gran (auto) 0.04 H (0.00-0.03) X10*3/uL Absolute Neuts (auto) 6.3 (2.0-8.3) x10*3/uL Absolute Nucleated RBC 0.000 (0.0-0.012) X10*3/uL Nucleated RBC % (auto) 0.0 (0.0-0.2) /100WBC PT 10.8 (10.0-13.1) SEC INR 0.9 (0.9-1.1) VBG pH (7.32-7.43) VBG pCO2 mmHg VBG pO2 mmHg VBG HCO3 (22-26) mmol/L VBG O2 Saturation % VBG Base Excess mmol/L Sodium 144 (135-145) mmol/L Potassium 4.7 (3.3-5.1) mmol/L Chloride 96 (96-108) mmol/L Carbon Dioxide 41 H* (22-29) mmol/L Anion Gap 12 (12-20) BUN 29 H (9-16) mg/dL Creatinine 1.10 (0.5-1.4) mg/dL Estim Creat Clear Calc 70.4 Estimated GFR 50 Random Glucose 326 H (60-115) mg/dL Lactic Acid (0.5-2.0) mmol/L Calcium 8.8 (8.4-10.2) mg/dL Total Bilirubin 0.2 (0.0-1.0) mg/dL Direct Bilirubin < 0.2 (0.0-0.5) mg/dL AST 10 (5-31) U/L ALT 14 (0-31) U/L Alkaline Phosphatase 68 (39-117) U/L Troponin I High Sens (<3.5-17.0) ng/L B-Natriuretic Peptide (<100) pg/mL Total Protein 6.5 (6.5-8.0) g/dL Albumin 3.5 (3.5-5.0) g/dL Urine Color Urine Appearance Urine pH (5.0-9.0) Ur Specific Carmine (1.005-1.025) Urine Protein (Neg-Trace) mg/dL Urine Glucose (UA) (Negative) mg/dL Urine Ketones (Negative) mg/dL Urine Blood (Negative) Urine Nitrite (Negative) Ur Leukocyte Esterase (Negative) Urine RBC (0-2) /HPF Urine WBC (0-5) /HPF Ur Squamous Epith Cells (0-2) /HPF Urine Bacteria (None Seen) Hyaline Casts (0-2) /LPF Urine Yeast COVID-19 (LSI) (Negative) COVID-19 Clin Com Influenza Type A (CHUNG) (Negative) Influenza Type B (CHUNG) (Negative) Influenza A & B Note 11/08/22 11/08/22 11/08/22 Range/Units 21:44 21:44 21:44 WBC (4.8-10.8) X10*3/uL RBC (4.20-5.50) X10*6/uL Hgb (12.0-16.0) g/dl Hct (37.0-47.0) % MCV (80.0-98.0) fL MCH (27.0-33.0) pg MCHC (31.0-35.0) g/dl RDW (11.0-16.0) % Plt Count (160-400) X10*3/uL MPV (9.4-12.3) fL Immature Gran % (Auto) (0.0-0.4) % Neut % (Auto) (45-73) % Lymph % (Auto) (20-40) % [place] % (Auto) (2-11) % Eos % (Auto) (0-4) % Baso % (Auto) (0-2) % Lymph # (Auto) (1.2-4.9) X10*3/uL [place] # (Auto) (0.1-1.2) X10*3/uL Eos # (Auto) (0.0-0.4) X10*3/uL Baso # (Auto) (0.0-0.2) X10*3/uL Abs Immat Gran (auto) (0.00-0.03) X10*3/uL Absolute Neuts (auto) (2.0-8.3) x10*3/uL Absolute Nucleated RBC (0.0-0.012) X10*3/uL Nucleated RBC % (auto) (0.0-0.2) /100WBC PT (10.0-13.1) SEC INR (0.9-1.1) VBG pH (7.32-7.43) VBG pCO2 mmHg VBG pO2 mmHg VBG HCO3 (22-26) mmol/L VBG O2 Saturation % VBG Base Excess mmol/L Sodium (135-145) mmol/L Potassium (3.3-5.1) mmol/L Chloride (96-108) mmol/L Carbon Dioxide (22-29) mmol/L Anion Gap (12-20) BUN (9-16) mg/dL Creatinine (0.5-1.4) mg/dL Estim Creat Clear Calc Estimated GFR Random Glucose (60-115) mg/dL Lactic Acid 1.1 (0.5-2.0) mmol/L Calcium (8.4-10.2) mg/dL Total Bilirubin (0.0-1.0) mg/dL Direct Bilirubin (0.0-0.5) mg/dL AST (5-31) U/L ALT (0-31) U/L Alkaline Phosphatase (39-117) U/L Troponin I High Sens 18.6 H (<3.5-17.0) ng/L B-Natriuretic Peptide < 10 (<100) pg/mL Total Protein (6.5-8.0) g/dL Albumin (3.5-5.0) g/dL Urine Color Urine Appearance Urine pH (5.0-9.0) Ur Specific Carmine (1.005-1.025) Urine Protein (Neg-Trace) mg/dL Urine Glucose (UA) (Negative) mg/dL Urine Ketones (Negative) mg/dL Urine Blood (Negative) Urine Nitrite (Negative) Ur Leukocyte Esterase (Negative) Urine RBC (0-2) /HPF Urine WBC (0-5) /HPF Ur Squamous Epith Cells (0-2) /HPF Urine Bacteria (None Seen) Hyaline Casts (0-2) /LPF Urine Yeast COVID-19 (LIS) (Negative) COVID-19 Clin Com Influenza Type A (CHUNG) (Negative) Influenza Type B (CHUNG) (Negative) Influenza A & B Note 11/08/22 11/08/22 11/08/22 Range/Units 21:44 21:44 22:00 WBC (4.8-10.8) X10*3/uL RBC (4.20-5.50) X10*6/uL Hgb (12.0-16.0) g/dl Hct (37.0-47.0) % MCV (80.0-98.0) fL MCH (27.0-33.0) pg MCHC (31.0-35.0) g/dl RDW (11.0-16.0) % Plt Count (160-400) X10*3/uL MPV (9.4-12.3) fL Immature Gran % (Auto) (0.0-0.4) % Neut % (Auto) (45-73) % Lymph % (Auto) (20-40) % [place] % (Auto) (2-11) % Eos % (Auto) (0-4) % Baso % (Auto) (0-2) % Lymph # (Auto) (1.2-4.9) X10*3/uL [place] # (Auto) (0.1-1.2) X10*3/uL Eos # (Auto) (0.0-0.4) X10*3/uL Baso # (Auto) (0.0-0.2) X10*3/uL Abs Immat Gran (auto) (0.00-0.03) X10*3/uL Absolute Neuts (auto) (2.0-8.3) x10*3/uL Absolute Nucleated RBC (0.0-0.012) X10*3/uL Nucleated RBC % (auto) (0.0-0.2) /100WBC PT (10.0-13.1) SEC INR (0.9-1.1) VBG pH 7.32 (7.32-7.43) VBG pCO2 90 mmHg VBG pO2 87 mmHg VBG HCO3 46 H (22-26) mmol/L VBG O2 Saturation 96.0 % VBG Base Excess 16.4 mmol/L Sodium (135-145) mmol/L Potassium (3.3-5.1) mmol/L Chloride (96-108) mmol/L Carbon Dioxide (22-29) mmol/L Anion Gap (12-20) BUN (9-16) mg/dL Creatinine (0.5-1.4) mg/dL Estim Creat Clear Calc Estimated GFR Random Glucose (60-115) mg/dL Lactic Acid (0.5-2.0) mmol/L Calcium (8.4-10.2) mg/dL Total Bilirubin (0.0-1.0) mg/dL Direct Bilirubin (0.0-0.5) mg/dL AST (5-31) U/L ALT (0-31) U/L Alkaline Phosphatase (39-117) U/L Troponin I High Sens (<3.5-17.0) ng/L B-Natriuretic Peptide (<100) pg/mL Total Protein (6.5-8.0) g/dL Albumin (3.5-5.0) g/dL Urine Color Urine Appearance Urine pH (5.0-9.0) Ur Specific Carmine (1.005-1.025) Urine Protein (Neg-Trace) mg/dL Urine Glucose (UA) (Negative) mg/dL Urine Ketones (Negative) mg/dL Urine Blood (Negative) Urine Nitrite (Negative) Ur Leukocyte Esterase (Negative) Urine RBC (0-2) /HPF Urine WBC (0-5) /HPF Ur Squamous Epith Cells (0-2) /HPF Urine Bacteria (None Seen) Hyaline Casts (0-2) /LPF Urine Yeast COVID-19 (LIS) Negative (Negative) COVID-19 Clin Com See Note Influenza Type A (CHUNG) Negative (Negative) Influenza Type B (CHUNG) Negative (Negative) Influenza A & B Note See Note 11/08/22 11/09/22 11/09/22 Range/Units 22:26 00:36 00:39 WBC (4.8-10.8) X10*3/uL RBC (4.20-5.50) X10*6/uL Hgb (12.0-16.0) g/dl Hct (37.0-47.0) % MCV (80.0-98.0) fL MCH (27.0-33.0) pg MCHC (31.0-35.0) g/dl RDW (11.0-16.0) % Plt Count (160-400) X10*3/uL MPV (9.4-12.3) fL Immature Gran % (Auto) (0.0-0.4) % Neut % (Auto) (45-73) % Lymph % (Auto) (20-40) % [place] % (Auto) (2-11) % Eos % (Auto) (0-4) % Baso % (Auto) (0-2) % Lymph # (Auto) (1.2-4.9) X10*3/uL [place] # (Auto) (0.1-1.2) X10*3/uL Eos # (Auto) (0.0-0.4) X10*3/uL Baso # (Auto) (0.0-0.2) X10*3/uL Abs Immat Gran (auto) (0.00-0.03) X10*3/uL Absolute Neuts (auto) (2.0-8.3) x10*3/uL Absolute Nucleated RBC (0.0-0.012) X10*3/uL Nucleated RBC % (auto) (0.0-0.2) /100WBC PT (10.0-13.1) SEC INR (0.9-1.1) VBG pH 7.34 (7.32-7.43) VBG pCO2 82 mmHg VBG pO2 72 mmHg VBG HCO3 44 H (22-26) mmol/L VBG O2 Saturation 94.0 % VBG Base Excess 15.1 mmol/L Sodium (135-145) mmol/L Potassium (3.3-5.1) mmol/L Chloride (96-108) mmol/L Carbon Dioxide (22-29) mmol/L Anion Gap (12-20) BUN (9-16) mg/dL Creatinine (0.5-1.4) mg/dL Estim Creat Clear Calc Estimated GFR Random Glucose (60-115) mg/dL Lactic Acid (0.5-2.0) mmol/L Calcium (8.4-10.2) mg/dL Total Bilirubin (0.0-1.0) mg/dL Direct Bilirubin (0.0-0.5) mg/dL AST (5-31) U/L ALT (0-31) U/L Alkaline Phosphatase (39-117) U/L Troponin I High Sens 16.1 (<3.5-17.0) ng/L B-Natriuretic Peptide (<100) pg/mL Total Protein (6.5-8.0) g/dL Albumin (3.5-5.0) g/dL Urine Color Yellow Urine Appearance Clear Urine pH 5.0 (5.0-9.0) Ur Specific Carmine >= 1.030 H (1.005-1.025) Urine Protein Negative (Neg-Trace) mg/dL Urine Glucose (UA) >=1000 H (Negative) mg/dL Urine Ketones Negative (Negative) mg/dL Urine Blood Moderate (2+) H (Negative) Urine Nitrite Positive H (Negative) Ur Leukocyte Esterase Small (1+) H (Negative) Urine RBC >20 H (0-2) /HPF Urine WBC 21-50 H (0-5) /HPF Ur Squamous Epith Cells 3-5 (0-2) /HPF Urine Bacteria 2+ (None Seen) Hyaline Casts 3-5 (0-2) /LPF Urine Yeast Present COVID-19 (LIS) (Negative) COVID-19 Clin Com Influenza Type A (CHUNG) (Negative) Influenza Type B (CHUNG) (Negative) Influenza A & B Note 11/09/22 Range/Units 04:01 WBC (4.8-10.8) X10*3/uL RBC (4.20-5.50) X10*6/uL Hgb (12.0-16.0) g/dl Hct (37.0-47.0) % MCV (80.0-98.0) fL MCH (27.0-33.0) pg MCHC (31.0-35.0) g/dl RDW (11.0-16.0) % Plt Count (160-400) X10*3/uL MPV (9.4-12.3) fL Immature Gran % (Auto) (0.0-0.4) % Neut % (Auto) (45-73) % Lymph % (Auto) (20-40) % [place] % (Auto) (2-11) % Eos % (Auto) (0-4) % Baso % (Auto) (0-2) % Lymph # (Auto) (1.2-4.9) X10*3/uL [place] # (Auto) (0.1-1.2) X10*3/uL Eos # (Auto) (0.0-0.4) X10*3/uL Baso # (Auto) (0.0-0.2) X10*3/uL Abs Immat Gran (auto) (0.00-0.03) X10*3/uL Absolute Neuts (auto) (2.0-8.3) x10*3/uL Absolute Nucleated RBC (0.0-0.012) X10*3/uL Nucleated RBC % (auto) (0.0-0.2) /100WBC PT (10.0-13.1) SEC INR (0.9-1.1) VBG pH 7.45 H (7.32-7.43) VBG pCO2 64 mmHg VBG pO2 59 mmHg VBG HCO3 45 H (22-26) mmol/L VBG O2 Saturation 88.0 % VBG Base Excess 17.8 mmol/L Sodium (135-145) mmol/L Potassium (3.3-5.1) mmol/L Chloride (96-108) mmol/L Carbon Dioxide (22-29) mmol/L Anion Gap (12-20) BUN (9-16) mg/dL Creatinine (0.5-1.4) mg/dL Estim Creat Clear Calc Estimated GFR Random Glucose (60-115) mg/dL Lactic Acid (0.5-2.0) mmol/L Calcium (8.4-10.2) mg/dL Total Bilirubin (0.0-1.0) mg/dL Direct Bilirubin (0.0-0.5) mg/dL AST (5-31) U/L ALT (0-31) U/L Alkaline Phosphatase (39-117) U/L Troponin I High Sens (<3.5-17.0) ng/L B-Natriuretic Peptide (<100) pg/mL Total Protein (6.5-8.0) g/dL Albumin (3.5-5.0) g/dL Urine Color Urine Appearance Urine pH (5.0-9.0) Ur Specific Carmine (1.005-1.025) Urine Protein (Neg-Trace) mg/dL Urine Glucose (UA) (Negative) mg/dL Urine Ketones (Negative) mg/dL Urine Blood (Negative) Urine Nitrite (Negative) Ur Leukocyte Esterase (Negative) Urine RBC (0-2) /HPF Urine WBC (0-5) /HPF Ur Squamous Epith Cells (0-2) /HPF Urine Bacteria (None Seen) Hyaline Casts (0-2) /LPF Urine Yeast COVID-19 (LIS) (Negative) COVID-19 Clin Com Influenza Type A (CHUNG) (Negative) Influenza Type B (CHUNG) (Negative) Influenza A & B Note Independent Interpretation I performed an independent interpretation of an: Plain X-Ray (My chest x-ray interpretation: No consolidation) Radiology Impression Discussion of test interpretation with radiology: I have reviewed the radiologist's reading. Radiologist Impression: FINDINGS: Lungs are hypoinflated. Linear subsegmental atelectasis in the right midlung. No pleural effusion or pneumothorax. Cardiac silhouette is partially obscured. Prominent mediastinal width likely exaggerated by low lung volumes. Prominent pulmonary vascular markings also at least partially accentuated artifactually by low lung volumes and AP technique versus pulmonary vascular congestion. No overt pulmonary edema. Left-sided pacer leads project over the right mid right ventricle. Left total shoulder arthroplasty. No acute osseous injury identified. XR/XR chest 1V IMPRESSION: 1.? Low lung volumes with linear subsegmental atelectasis in the right midlung. 2.? No definite airspace consolidation or pleural effusions. 3.? Possible pulmonary vascular congestion. Critical Care Time Critical Care Time Critical Care Time: Yes Total Critical Care Time: 60 Attestation: I have personally provided critical care time. Time includes review of lab data, radiology results, discussion with consultants, and monitoring for potential decompensation. Intervention performed as documented. Discharge Plan Discharge Clinical Impression: Respiratory failure, Urinary tract infection due to ESBL Klebsiella Patient Disposition: Admitted As Inpatient Prescriptions: No Action furosemide 40 mg Tablet 40 mg PO DAILY Qty: 30 0RF Protocol: Hold for SBP< HOLD for SBP < : 90 ipratropium-albuterol 0.5 mg-3 mg(2.5 mg base)/3 mL Solution For Nebulization 3 ml INHALATION TID potassium chloride 10 mEq Tablet Extended Release 10 meq PO DAILY Culturelle 10 billion cell Capsule 1 cap PO DAILY bupropion HCl 150 mg tablet extended release 24 hr 1 tab PO DAILY fosfomycin tromethamine 3 gram packet 1 packet PO Q3D 2 Days Qty: 2 0RF atorvastatin 80 mg Tablet 80 mg PO BEDTIME sennosides [senna] 8.6 mg Tablet 16.2 mg PO DAILY PRN (Reason: Constipation) acetaminophen 325 mg Tablet 650 mg PO Q4H PRN (Reason: Fever Or Pain) polyethylene glycol 3350 [Miralax] 17 gram Powder In Packet 17 g PO DAILY PRN (Reason: Constipation) tizanidine 4 mg Tablet 4 mg PO BEDTIME PRN (Reason: Muscle Spasm) enalapril maleate 20 mg Tablet 40 mg PO DAILY sertraline 100 mg Tablet 200 mg PO DAILY melatonin 3 mg Tablet 3 mg PO BEDTIME ferrous sulfate 325 mg (65 mg iron) Tablet 325 mg PO DAILY gabapentin 300 mg Capsule 300 mg PO DAILY@1200 gabapentin 300 mg Capsule 600 mg PO BID insulin lispro 100 unit/mL Insulin Pen See Protocol SUBCUT QIDACHS Protocol: Insulin Correction Scale Less than or equal to 110 ---- Give (units): 0 111 to 150 Give (units): 0 151 to 200 Give (units): 2 201 to 250 Give (units): 4 251 to 300 Give (units): 6 301 to 350 Give (units): 8 Greater than 350 Give (units): 10 Call MD if Blood Glucose > : 350 Rx Instructions: SLIDING SCALE fluticasone propion-salmeterol [AirDuo RespiClick] 113-14 mcg/actuation aerosol powdr breath activated 1 inh inhalation BID Qty: 1 0RF amlodipine 5 mg Tablet 5 mg PO DAILY 30 Days Qty: 30 0RF Protocol: Hold for SBP< HOLD for SBP < : 90 aspirin 81 mg Tablet,Chewable 81 mg PO DAILY megestrol 400 mg/10 mL (10 mL) Suspension 40 mg PO TID bisacodyl 10 mg suppository 10 mg [place] DAILY PRN magnesium citrate [Citrate of Magnesia] Solution 150 ml PO DAILY ipratropium-albuterol 0.5 mg-3 mg(2.5 mg base)/3 mL solution for nebulization 3 ml inhalation Q6-8H PRN insulin lispro [Humalog U-100 Insulin] 100 unit/mL solution 1 sliding scale dose subcut USEASDIRECTD bupropion HCl 300 mg tablet extended release 24 hr 300 mg PO DAILY insulin lispro 100 unit/mL solution 5 unit subcut TIDAC
[2022-11-08 23:54] VITALS: BP 161/70; PULSE 72; RESP 14; O2SAT 94
[2022-11-09] VITALS (13 sets, daily range): BP systolic 140–159; BP diastolic 68–81; PULSE 69–97; RESP 14–25; TEMP 36.1–36.8; O2SAT 91–97
[2022-11-09 00:46] LABS: VBG Base Excess 15.1 mmol/L; VBG HCO3 44 mmol/L (22-26); VBG pCO2 82 mmHg; VBG pH 7.34 (7.32-7.43); VBG pO2 72 mmHg
[2022-11-09 00:46] LABS: Venous Blood Gas Refer to POC result
[2022-11-09 01:08] LABS: Troponin-I High Sensitivity 16.1 ng/L (<3.5-17.0)
--- NOTE | 2022-11-09 03:30 | PC.NURSE ---
Multiple unsuccessful attempts at obtaining lab sample for VBG. Phlebotomy at bedside.
[2022-11-09 04:08] LABS: VBG Base Excess 17.8 mmol/L; VBG HCO3 45 mmol/L (22-26); VBG pCO2 64 mmHg; VBG pH 7.45 (7.32-7.43); VBG pO2 59 mmHg
[2022-11-09 04:08] LABS: Venous Blood Gas Refer to POC result
--- NOTE | 2022-11-09 05:37 | P.HPHOSP_ITS ---
History of Present Illness Date of Service: 11/09/22 Chief Complaint: delusion and hallucination, hypoxia 61-year-old female with past medical history of obesity hypoventilation syndrome noncompliant with CPAP, CHF, diabetes, HTN, SMILEY, pulmonary embolism, sick sinus syndrome, and chronic anemia presents the hospital with visual hallucinations. Patient also reports that she had difficulty breathing, no cough and no sputum production. Patient denies any chest pain, no abdominal pain, no urinary symptoms and no lower extremity edema. On arrival to the ED patient hemodynamically stable with pH of 7.32, CO2 of 90, patient was placed on BiPAP for several hours with improvement of her CO2 to 60 and a pH of 7.45, UA +ve nitrates, leukocyte Estrace, WBC, Chest x-ray shows low lung volume with linear subsegmental atelectasis in the right mid lung, no definite airspace consolidation or pleural effusion Patient is lying flat in bed, no orthopnea or PND Review of Systems Review of Systems: Yes all other systems are reviewed and are negative FOR[facility]LY [facility] Medical History (Updated 11/09/22 @ 07:08 by Philomena Knowles MD) Anemia Arthritis Atelectasis of both lungs CHF (congestive heart failure) Clostridium difficile infection Depression Diabetes mellitus, type 2 Diabetic ulcer of foot associated with diabetes mellitus due to underlying condition, with fat layer exposed Hypertension Hypoventilation associated with obesity syndrome Morbid obesity Morbid obesity Obesity hypoventilation syndrome SMILEY (obstructive sleep apnea) Presence of permanent cardiac pacemaker Pulmonary embolism Respiratory failure with hypoxia and hypercapnia Sick sinus syndrome Surgical History History of total knee replacement Social History Household Members: None Housing: Alf Housing Other:: rehab facility Are you a primary customer care specialist to a significant other at home: No Do you presently have visiting nurse or other home services: Yes (Cyndee Bowers) Unable to assess alcohol history related to: Unknown Alcohol intake: never Patient Tobacco Use Status: Former Tobacco user Cigarettes Per Day: 0 e-Cigarette/Vaping Use: Never Used Substance Use Type: Unknown Advance Directives: No Advance Directives Information Provided: Yes Nutrition Risks: Diabetes new onset/Uncontrolled service: No Current occupational status: disabled Meds Allergies Allergy/AdvReac Type Severity Reaction Status Date / Time latex Allergy Unknown Unknown Verified 10/21/22 13:48 adhesive tape AdvReac Unknown Unknown Verified 10/21/22 13:48 bupropion [From Wellbutrin] AdvReac Unknown Unknown Verified 10/21/22 13:48 ibuprofen AdvReac Unknown Unknown Verified 10/21/22 13:48 Home Medications Medication Instructions Recorded Confirmed Last Taken Type acetaminophen 325 mg tablet 650 mg PO Q4H PRN Fever Or Pain 11/18/21 10/09/22 Unknown History atorvastatin 80 mg tablet 80 mg PO BEDTIME 11/18/21 10/09/22 Unknown History enalapril maleate 20 mg tablet 40 mg PO DAILY 11/18/21 10/09/22 Unknown History ferrous sulfate 325 mg (65 mg 325 mg PO DAILY 11/18/21 10/09/22 Unknown History iron) tablet gabapentin 300 mg capsule 300 mg PO DAILY@1200 11/18/21 10/09/22 Unknown History gabapentin 300 mg capsule 600 mg PO BID 11/18/21 10/09/22 Unknown History insulin lispro 100 unit/mL See Protocol subcut QIDACHS 11/18/21 10/09/22 Unknown History subcutaneous pen melatonin 3 mg tablet 3 mg PO BEDTIME 11/18/21 10/09/22 Unknown History polyethylene glycol 3350 17 gram 17 g PO DAILY PRN Constipation 11/18/21 10/09/22 Unknown History oral powder packet (Miralax) sennosides 8.6 mg tablet (senna) 16.2 mg PO DAILY PRN Constipation 11/18/21 10/09/22 Unknown History sertraline 100 mg tablet 200 mg PO DAILY 11/18/21 10/09/22 Unknown History tizanidine 4 mg tablet 4 mg PO BEDTIME PRN Muscle Spasm 11/18/21 10/09/22 Unknown History aspirin 81 mg chewable tablet 81 mg PO DAILY 01/05/22 10/09/22 Unknown History megestrol 400 mg/10 mL (10 mL) 40 mg PO TID 01/05/22 10/09/22 Unknown History oral suspension bupropion HCl 300 mg 24 hr tablet, 300 mg PO DAILY 04/09/22 10/09/22 Unknown History extended release insulin lispro 100 unit/mL 5 unit subcut TIDAC 04/09/22 10/09/22 Unknown History subcutaneous solution Lactobacillus rhamnosus GG 10 1 cap PO DAILY 10/09/22 10/09/22 Unknown History billion cell capsule (Culturelle) bupropion HCl 150 mg 24 hr tablet, 1 tab PO DAILY 10/09/22 10/09/22 Unknown History extended release ipratropium 0.5 mg-albuterol 3 mg 3 ml inhalation TID 10/09/22 10/09/22 Unknown History (2.5 mg base)/3 mL nebulization soln potassium chloride 10 mEq 10 meq PO DAILY 10/09/22 10/09/22 Unknown History tablet,extended release bisacodyl 10 mg rectal suppository 10 mg SC DAILY PRN 10/21/22 Unknown History insulin lispro 100 unit/mL 1 sliding scale dose subcut 10/21/22 Unknown History subcutaneous solution (Humalog USEASDIRECTD U-100 Insulin) ipratropium 0.5 mg-albuterol 3 mg 3 ml inhalation Q6-8H PRN 10/21/22 Unknown History (2.5 mg base)/3 mL nebulization soln magnesium citrate (Citrate of 150 ml PO DAILY 10/21/22 Unknown History Magnesia oral) Physical Exam Vital Signs and Narrative: Vital Signs: Last Vital Signs Temp 99.6 F 11/08/22 22:13 Pulse 74 11/09/22 04:12 Resp 18 11/09/22 05:00 BP 147/72 H 11/09/22 04:12 Pulse Ox 93 11/09/22 02:53 O2 Del Method 11/09/22 02:53 O2 Flow Rate 10 11/09/22 02:53 BMI result Body Mass Index 45.7 Const: General: cooperative and no acute distress Orientation/consciousness: patient oriented x3 Eyes: General: appearance normal, both eyes and all related structures Pupils: Equal, round and reactive pupils present Resp: Effort & Inspection: normal respiratory effort Cardio: Rate: regular rate Rhythm: regular rhythm GI: Other: Decreased breath sounds Palpation (GI): Soft to palpation Auscultation: normal bowel sounds Skin: General skin exam: no rashes or lesions noted Neuro: General: patient oriented x3 Cranial nerves: Yes Equal, round and reactive pupils present Cognition (Neuro): normal cognition Extrem: General: Yes normal to inspection and Yes no pedal edema Results Labs 11/08/22 21:44 02/24/23 21:44 Labs: Laboratory Results - last 24 hr 11/08/22 11/08/22 11/08/22 21:44 21:44 21:44 MCV 96.3 MCH 28.5 MCHC 29.6 L RDW 13.9 Plt Count 241 MPV 9.4 Immature Gran % (Auto) 0.5 H Neut % (Auto) 78.4 H Lymph % (Auto) 14.0 L [place] % (Auto) 5.9 Eos % (Auto) 1.0 Baso % (Auto) 0.2 Lymph # (Auto) 1.1 L [place] # (Auto) 0.5 Eos # (Auto) 0.1 Baso # (Auto) 0.0 Abs Immat Gran (auto) 0.04 H Absolute Neuts (auto) 6.3 Absolute Nucleated RBC 0.000 Nucleated RBC % (auto) 0.0 PT 10.8 INR 0.9 VBG pH VBG pCO2 VBG pO2 VBG HCO3 VBG O2 Saturation VBG Base Excess Anion Gap 12 Estim Creat Clear Calc 70.4 Estimated GFR 50 Random Glucose 326 H Lactic Acid Calcium 8.8 Total Bilirubin 0.2 Direct Bilirubin < 0.2 AST 10 ALT 14 Alkaline Phosphatase 68 Troponin I High Sens B-Natriuretic Peptide Total Protein 6.5 Albumin 3.5 Urine Color Urine Appearance Urine pH Ur Specific [place] Urine Protein Urine Glucose (UA) Urine Ketones Urine Blood Urine Nitrite Ur Leukocyte Esterase Urine RBC Urine WBC Ur Squamous Epith Cells Urine Bacteria Hyaline Casts Urine Yeast COVID-19 (LIS) COVID-19 Clin Com Influenza Type A (CHUNG) Influenza Type B (CHUNG) Influenza A & B Note 11/08/22 11/08/22 11/08/22 21:44 21:44 21:44 MCV MCH MCHC RDW Plt Count MPV Immature Gran % (Auto) Neut % (Auto) Lymph % (Auto) [place] % (Auto) Eos % (Auto) Baso % (Auto) Lymph # (Auto) [place] # (Auto) Eos # (Auto) Baso # (Auto) Abs Immat Gran (auto) Absolute Neuts (auto) Absolute Nucleated RBC Nucleated RBC % (auto) PT INR VBG pH VBG pCO2 VBG pO2 VBG HCO3 VBG O2 Saturation VBG Base Excess Anion Gap Estim Creat Clear Calc Estimated GFR Random Glucose Lactic Acid 1.1 Calcium Total Bilirubin Direct Bilirubin AST ALT Alkaline Phosphatase Troponin I High Sens 18.6 H B-Natriuretic Peptide < 10 Total Protein Albumin Urine Color Urine Appearance Urine pH Ur Specific [place] Urine Protein Urine Glucose (UA) Urine Ketones Urine Blood Urine Nitrite Ur Leukocyte Esterase Urine RBC Urine WBC Ur Squamous Epith Cells Urine Bacteria Hyaline Casts Urine Yeast COVID-19 (LIS) COVID-19 Clin Com Influenza Type A (CHUNG) Influenza Type B (CHUNG) Influenza A & B Note 11/08/22 11/08/22 11/08/22 21:44 21:44 22:00 MCV MCH MCHC RDW Plt Count MPV Immature Gran % (Auto) Neut % (Auto) Lymph % (Auto) [place] % (Auto) Eos % (Auto) Baso % (Auto) Lymph # (Auto) [place] # (Auto) Eos # (Auto) Baso # (Auto) Abs Immat Gran (auto) Absolute Neuts (auto) Absolute Nucleated RBC Nucleated RBC % (auto) PT INR VBG pH 7.32 VBG pCO2 90 VBG pO2 87 VBG HCO3 46 H VBG O2 Saturation 96.0 VBG Base Excess 16.4 Anion Gap Estim Creat Clear Calc Estimated GFR Random Glucose Lactic Acid Calcium Total Bilirubin Direct Bilirubin AST ALT Alkaline Phosphatase Troponin I High Sens B-Natriuretic Peptide Total Protein Albumin Urine Color Urine Appearance Urine pH Ur Specific [place] Urine Protein Urine Glucose (UA) Urine Ketones Urine Blood Urine Nitrite Ur Leukocyte Esterase Urine RBC Urine WBC Ur Squamous Epith Cells Urine Bacteria Hyaline Casts Urine Yeast COVID-19 (LIS) Negative COVID-19 Clin Com See Note Influenza Type A (CHUNG) Negative Influenza Type B (CHUNG) Negative Influenza A & B Note See Note 11/08/22 11/09/22 11/09/22 22:26 00:36 00:39 MCV MCH MCHC RDW Plt Count MPV Immature Gran % (Auto) Neut % (Auto) Lymph % (Auto) [place] % (Auto) Eos % (Auto) Baso % (Auto) Lymph # (Auto) [place] # (Auto) Eos # (Auto) Baso # (Auto) Abs Immat Gran (auto) Absolute Neuts (auto) Absolute Nucleated RBC Nucleated RBC % (auto) PT INR VBG pH 7.34 VBG pCO2 82 VBG pO2 72 VBG HCO3 44 H VBG O2 Saturation 94.0 VBG Base Excess 15.1 Anion Gap Estim Creat Clear Calc Estimated GFR Random Glucose Lactic Acid Calcium Total Bilirubin Direct Bilirubin AST ALT Alkaline Phosphatase Troponin I High Sens 16.1 B-Natriuretic Peptide Total Protein Albumin Urine Color Yellow Urine Appearance Clear Urine pH 5.0 Ur Specific [place] >= 1.030 H Urine Protein Negative Urine Glucose (UA) >=1000 H Urine Ketones Negative Urine Blood Moderate (2+) H Urine Nitrite Positive H Ur Leukocyte Esterase Small (1+) H Urine RBC >20 H Urine WBC 21-50 H Ur Squamous Epith Cells 3-5 Urine Bacteria 2+ Hyaline Casts 3-5 Urine Yeast Present COVID-19 (LIS) COVID-19 Clin Com Influenza Type A (CHUNG) Influenza Type B (CHUNG) Influenza A & B Note 11/09/22 04:01 MCV MCH MCHC RDW Plt Count MPV Immature Gran % (Auto) Neut % (Auto) Lymph % (Auto) [place] % (Auto) Eos % (Auto) Baso % (Auto) Lymph # (Auto) [place] # (Auto) Eos # (Auto) Baso # (Auto) Abs Immat Gran (auto) Absolute Neuts (auto) Absolute Nucleated RBC Nucleated RBC % (auto) PT INR VBG pH 7.45 H VBG pCO2 64 VBG pO2 59 VBG HCO3 45 H VBG O2 Saturation 88.0 VBG Base Excess 17.8 Anion Gap Estim Creat Clear Calc Estimated GFR Random Glucose Lactic Acid Calcium Total Bilirubin Direct Bilirubin AST ALT Alkaline Phosphatase Troponin I High Sens B-Natriuretic Peptide Total Protein Albumin Urine Color Urine Appearance Urine pH Ur Specific [place] Urine Protein Urine Glucose (UA) Urine Ketones Urine Blood Urine Nitrite Ur Leukocyte Esterase Urine RBC Urine WBC Ur Squamous Epith Cells Urine Bacteria Hyaline Casts Urine Yeast COVID-19 (LIS) COVID-19 Clin Com Influenza Type A (CHNUG) Influenza Type B (CHUNG) Influenza A & B Note Imaging Radiologist's Impressions: Impressions Chest X-Ray 11/08/22 21:20 IMPRESSION: 1. Low lung volumes with linear subsegmental atelectasis in the right midlung. 2. No definite airspace consolidation or pleural effusions. 3. Possible pulmonary vascular congestion. Assessment and Plan (1) Acute and chronic respiratory failure with hypercapnia: Status: Acute (2) Obesity hypoventilation syndrome: Status: Acute (3) Urinary tract infection due to ESBL Klebsiella: Status: Acute Plan 61-year-old female with past medical history of hypoventilation syndrome as well as SMILEY noncompliant with BiPAP, and history of ESBL UTI presents to the hospital with complaints of hallucinations, shortness of breath found to be hypercapnic # acute on chronic respiratory failure with hypercapnia as well as hypoxia - according to EMS patient was found to have O2 of 80% on room air at the facility - patient also found to have a pH of 7.3 with a CO2 in the 90s - was placed on BiPAP for several hours with improvement in her gas as well as mentation - patient placed on BiPAP overnight - continue BiPAP at bedtime - continue O2 as needed # obesity hypoventilation syndrome - BiPAP at bedtime # UTI with ESBL Klebsiella - has had ESBL Klebsiella in the past - she is asymptomatic - UA positive - will start meropenem, infectious disease consulted # diabetes - low-dose sinus he insulin - diabetic diet - continue home insulin # hypertension - stable - continue antihypertensives # CHF - exacerbation - continue home furosemide DVT prophylaxis: Lovenox Given patient's ESBL Klebsiella patient require minimum 2 nights inpatient hospital stay for further management and evaluation by Infectious Disease Time Spent With Patient Time: Total time managing care of this patient today ____ minutes. Quality Stroke Does the patient have a stroke diagnosis?: No VTE Prior VTE?: No VTE Risk Level:: Medical - moderate - high VTE Device Contraindication: N/A - Device Ordered VTE Drug Contraindication: Treatment Not Indicated
--- NOTE | 2022-11-09 06:31 | PC.NURSE ---
Pt removed BIpap mask and does not want to re-apply it. Reports feeling uncomfortable. O2 sat @ 78% RA. Respiratory contacted and pt placed on a non re-breather mask as pt is refusing bipap at this time. Respiratory therpist at bedside. Pt placed on 5L oxy mask. O2 sat 96%. Pt repositioned at the bedside. Non-blanchable area noted on the gluteus. Stage one and two sores noted to the coccyx and gluteal area. Barrier cream applied.
[2022-11-09] MEDS: Enoxaparin Sodium 40 MG/0.4 ML SYRINGE SUBCUT (06:45)
[2022-11-09] MEDS: Acetaminophen 325 MG TABLET 650 MG PO (06:49)
[2022-11-09 07:22] LABS: Glucose, Whole Blood 159 mg/dL (60-115)
[2022-11-09] MEDS: Insulin Lispro 100 UNIT/ML 3 ML VIAL SUBCUT ×5 (08:26→21:55)
--- NOTE | 2022-11-09 08:31 | PHA.MEDREC ---
Pharmacy Consult ? Medication Reconciliation Pharmacy has completed the medication reconciliation. Patient had list from [facility] in chart.
[2022-11-09 08:35] LABS: Alanine Aminotransferase 16 U/L (0-31); Albumin Level 3.3 g/dL (3.5-5.0); Alkaline Phosphatase 83 U/L (39-117); Anion Gap 12 (12-20); Aspartate Amino Transferase 28 U/L (5-31); Bilirubin Total 0.4 mg/dL (0.0-1.0); Blood Urea Nitrogen 23 mg/dL (9-16); Calcium 8.9 mg/dL (8.4-10.2); Carbon Dioxide 38 mmol/L (22-29); Chloride 101 mmol/L (96-108); Estimated Glomerular Filt Rate > 60; Glucose Random 165 mg/dL (60-115); Potassium 5.6 mmol/L (3.3-5.1); Sodium 145 mmol/L (135-145); Total Protein 6.7 g/dL (6.5-8.0)
--- NOTE | 2022-11-09 09:58 | MHC.CM.PN ---
PT REPORTS SHE LIVES WITH HER AND HAS [employer] HELPER SERVICES HOWEVER SHE HAS BEEN IN STR AT [facility] FOR SOME TIME SHE REPORTS AT HOME SHE HAS A BIPAP AND W/C SHE HAS A MOLST ON FILE AND SAYS SHE HAS A HCP COMPLETED [facility] IS HER PCP WHILE [facility] SHE REPORTS SHE SEES A DR POWELL IN [place] WHEN HOME SHE IS COVID VAX IMM DELIVERED, COPY SENT TO [facility] DCP: RETURN TO [facility] PT WILL NEED A PT EVAL TO RE-SKILL BLS TRANSPORT
--- NOTE | 2022-11-09 11:40 | PC.NURSE ---
ASSUMED CARE OF PT AT 0700. PT A + O x4, VSS, SHE DENIES PAIN, PT SATTING 95% ON 4L VENTI MASK. SHE DENIES SO. PT GIVEN MEDS DOCUMENTED. WILL CONTINUE TO OBSERVE. RT AT BEDSIDE.
[2022-11-09 13:22] LABS: Glucose, Whole Blood 153 mg/dL (60-115)
--- NOTE | 2022-11-09 14:55 | PM.EVENT ---
Event Note Date of Service: 11/09/22 Event Note: chart reviewed patient examined. Agree with history and physical and plan as documented by Dr. Pierce Time Spent With Patient Time: Total time managing care of this patient today ____ minutes.
[2022-11-09 17:54] LABS: Glucose, Whole Blood 280 mg/dL (60-115)
[2022-11-09] MEDS: Megestrol Acetate 400 MG/10 ML ORAL.SUSP PO ×2 (18:30→21:56)
[2022-11-09] MEDS: Sodium Zirconium Cyclosilicate 10 GM POWD.PACK PO (18:43)
[2022-11-09 19:45] LABS: Glucose, Whole Blood 317 mg/dL (60-115)
[2022-11-09] MEDS: Gabapentin 300 MG CAPSULE 600 MG PO (21:54)
[2022-11-09] MEDS: Atorvastatin Calcium 80 MG TABLET PO (21:55)
[2022-11-10] VITALS (13 sets, daily range): BP systolic 135–179; BP diastolic 55–95; PULSE 66–90; RESP 14–26; TEMP 36.2–37.4; O2SAT 63–98
[2022-11-10] MEDS: Enoxaparin Sodium 40 MG/0.4 ML SYRINGE SUBCUT (05:52)
[2022-11-10 06:09] LABS: MANUAL DIFF FLAG NO
[2022-11-10 06:35] LABS: Basophils Percent Auto 0.4 % (0-2); Eosinophils Absolute Auto 0.1 X10*3/uL (0.0-0.4); Eosinophils Percent Auto 1.7 % (0-4); Hematocrit 38.8 % (37.0-47.0); Imm Gran Abs Auto 0.07 X10*3/uL (0.00-0.03); Imm Gran Pct Auto 0.9 % (0.0-0.4); Lymphocytes Percent Auto 25.5 % (20-40); Mean Corpuscular HGB Conc 30.9 g/dl (31.0-35.0); Mean Corpuscular Hemoglobin 29.3 pg (27.0-33.0); Mean Corpuscular Volume 94.6 fL (80.0-98.0); Mean Platelet Volume 10.1 fL (9.4-12.3); Monocytes Absolute Auto 0.6 X10*3/uL (0.1-1.2); Monocytes Percent Auto 7.2 % (2-11); Neutrophils Percent Auto 64.3 % (45-73); Platelet Count 220 X10*3/uL (160-400); Red Cell Distribution Width 14.1 % (11.0-16.0); White Blood Count 7.8 X10*3/uL (4.8-10.8)
[2022-11-10 06:36] LABS: Alanine Aminotransferase 16 U/L (0-31); Albumin Level 3.1 g/dL (3.5-5.0); Alkaline Phosphatase 67 U/L (39-117); Anion Gap 14 (12-20); Aspartate Amino Transferase 17 U/L (5-31); Bilirubin Total 0.4 mg/dL (0.0-1.0); Blood Urea Nitrogen 19 mg/dL (9-16); Calcium 8.5 mg/dL (8.4-10.2); Carbon Dioxide 36 mmol/L (22-29); Chloride 100 mmol/L (96-108); Creatinine Clr Calc Pharmacy 99.2; Estimated Glomerular Filt Rate > 60; Glucose Fasting 197 mg/dL (60-99); Potassium 5.3 mmol/L (3.3-5.1); Sodium 145 mmol/L (135-145); Total Protein 6.2 g/dL (6.5-8.0)
[2022-11-10] MEDS: Sertraline HCL 100 MG TABLET 200 MG PO (08:56)
[2022-11-10] MEDS: Aspirin 81 MG TAB.CHEW PO (08:56)
[2022-11-10] MEDS: Sodium Zirconium Cyclosilicate 10 GM POWD.PACK PO (08:56)
[2022-11-10] MEDS: buPROPion HCl XL 300 MG TAB.ER.24H PO (08:57)
[2022-11-10] MEDS: Enalapril Maleate 10 MG TABLET 20 MG PO (08:57)
[2022-11-10] MEDS: Gabapentin 300 MG CAPSULE 600 MG PO ×2 (08:57→21:38)
[2022-11-10] MEDS: buPROPion HCl XL 150 MG TAB.ER.24H PO (08:57)
[2022-11-10] MEDS: Insulin Lispro 100 UNIT/ML 3 ML VIAL SUBCUT ×7 (08:58→21:37)
[2022-11-10] MEDS: Furosemide 40 MG TABLET PO (08:58)
[2022-11-10] MEDS: amLODIPine Besylate 5 MG TABLET PO (08:59)
[2022-11-10] MEDS: Insulin Glargine,Hum.rec.anlog 100 UNIT/ML 10 ML VIAL 52 UNIT SUBCUT (08:59)
[2022-11-10] MEDS: Megestrol Acetate 400 MG/10 ML ORAL.SUSP PO ×3 (09:01→21:38)
[2022-11-10 09:02] LABS: Glucose, Whole Blood 196 mg/dL (60-115)
[2022-11-10 11:43] LABS: Glucose, Whole Blood 253 mg/dL (60-115)
--- NOTE | 2022-11-10 13:17 | HO.PM.IMPN ---
Subjective Subjective Date of Service: 11/10/22 Interval History: fair compliance with BiPAP. Mentation back to baseline Review of Systems denies chest pain Admits to shortness of breath off BiPAP Denies nausea vomiting diarrhea Denies fever chills Physical Exam Vital Signs: Vital Signs: Last Vital Signs Temp 97.2 F 11/10/22 11:32 Pulse 70 11/10/22 11:50 Resp 26 H 11/10/22 11:50 BP 135/55 L 11/10/22 11:32 Pulse Ox 91 L 11/10/22 11:32 O2 Del Method 11/10/22 11:32 O2 Flow Rate 13 11/10/22 11:32 FiO2 22 11/10/22 11:32 BMI result Body Mass Index 45.7 Const: Other: somnolent but arousable Resp: Other: diminished but clear througho Cardio: Other: no S4; positive S1-S2; no S3 murmurs rubs or gallops GI: Other: soft nontender nondistended normoactive bowel sounds Extrem: Other: bilateral edema Objective Data Active Medications Acetaminophen (Acetaminophen 325 Mg Tablet) 650 mg PO Q6H PRN PRN Reason: Pain, Mild (Pain Scale 1-3) Last Admin: 11/09/22 06:49 Dose: 650 mg Documented By: VJ Acetaminophen (Acetaminophen 325 Mg Tablet) 650 mg PO Q4H PRN PRN Reason: Fever Or Pain Amlodipine Besylate (Amlodipine Besylate 5 Mg Tablet) 5 mg PO DAILY [facility]; Protocol Last Admin: 11/10/22 08:59 Dose: 5 mg Documented By: IVY Aspirin (Aspirin 81 Mg Tab.Chew) 81 mg PO DAILY [facility] Last Admin: 11/10/22 08:56 Dose: 81 mg Documented By: IVY Atorvastatin Calcium (Atorvastatin Calcium 80 Mg Tablet) 80 mg PO BEDTIME [facility] Last Admin: 11/09/22 21:55 Dose: 80 mg Documented By: FAUSTINO Bisacodyl (Bisacodyl 10 Mg Supp.Rect) 10 mg [place] DAILY PRN PRN Reason: Constipation Bupropion HCl (Bupropion Hcl Xl 150 Mg Tab.Er.24h) 150 mg PO DAILY [facility] Last Admin: 11/10/22 08:57 Dose: 150 mg Documented By: IVY Bupropion HCl (Bupropion Hcl Xl 300 Mg Tab.Er.24h) 300 mg PO DAILY [facility] Last Admin: 11/10/22 08:57 Dose: 300 mg Documented By: IVY Albuterol Sulfate 2.5 mg/ (Ipratropium [place] 0.5 mg) 0 mg INHALE RQ4H WHILE AWAKE [facility] Last Admin: 11/10/22 11:50 Dose: 1 each Documented By: DESHAWN Dextrose (Dextrose 50 % 25 Gm/50 Ml Syringe) 25 gm IVPUSH Q15M PRN; Protocol PRN Reason: per Hypoglycemia Standing Ord. Docusate Sodium (Docusate Sodium 100 Mg Capsule) 100 mg PO DAILY PRN PRN Reason: Constipation Enalapril Maleate (Enalapril Maleate 10 Mg Tablet) 20 mg PO DAILY [facility]; Protocol Last Admin: 11/10/22 08:57 Dose: 20 mg Documented By: IVY Enoxaparin Sodium (Enoxaparin Sodium 40 Mg/0.4 Ml Syringe) 40 mg SUBCUT Q24H [facility] Last Admin: 11/10/22 05:52 Dose: 40 mg Documented By: FAUSTINO Furosemide (Furosemide 40 Mg Tablet) 40 mg PO DAILY [facility]; Protocol Last Admin: 11/10/22 08:58 Dose: 40 mg Documented By: IVY Gabapentin (Gabapentin 300 Mg Capsule) 300 mg PO DAILY@1200 ROSSY Gabapentin (Gabapentin 300 Mg Capsule) 600 mg PO BID [facility] Last Admin: 11/10/22 08:57 Dose: 600 mg Documented By: IVY Glucose (Glucose Gel 15 Gm Gel..Gram.) 15 gm PO Q15M PRN; Protocol PRN Reason: per Hypoglycemia Standing Ord. Meropenem 1 gm/ Sodium (Chloride) 100 mls @ 200 mls/hr IV Q8H [facility] Last Infusion: 11/10/22 09:58 Dose: 0 mls/hr Documented By: IVY Insulin Glargine (Insulin Glargine,Hum.Rec.Anlog 100 Unit/Ml 10 Ml Vial) 52 unit SUBCUT DAILY [facility] Last Admin: 11/10/22 08:59 Dose: 52 unit Documented By: IVY Insulin Human Lispro (Insulin Lispro 100 Unit/Ml 3 Ml Vial) 0 unit SUBCUT QIDACHS [facility]; Protocol Last Admin: 11/10/22 12:08 Dose: 4 unit Documented By: IVY Insulin Human Lispro (Insulin Lispro 100 Unit/Ml 3 Ml Vial) 0 unit SUBCUT QIDACHS [facility]; Protocol Last Admin: 11/10/22 11:48 Dose: Not Given Documented By: IVY Non-Admin Reason: Duplicate order Insulin Human Lispro (Insulin Lispro 100 Unit/Ml 3 Ml Vial) 5 unit SUBCUT TIDAC [facility] Last Admin: 11/10/22 12:09 Dose: 4 unit Documented By: IVY Magnesium Hydroxide (Milk Of Magnesia 30 Ml Oral.Susp) 30 ml PO DAILY PRN PRN Reason: Constipation Megestrol Acetate (Megestrol Acetate 400 Mg/10 Ml Oral.Susp) 400 mg PO TID [facility] Last Admin: 11/10/22 09:01 Dose: 400 mg Documented By: IVY Ondansetron HCl (Ondansetron Hcl 4 Mg/2 Ml Vial) 4 mg IVPUSH Q8H PRN PRN Reason: Nausea and Vomiting Pharmacy Consult (Consult Rx Perform Med Rec) 1 each MISCELLANE ONCE PRN PRN Reason: Consult order Sertraline HCl (Sertraline Hcl 100 Mg Tablet) 200 mg PO DAILY [facility] Last Admin: 11/10/22 08:56 Dose: 200 mg Documented By: IVY Tizanidine HCl (Tizanidine Hcl 4 Mg Tablet) 4 mg PO BEDTIME PRN PRN Reason: Muscle Spasm Labs 11/10/22 06:03 11/10/22 06:03 Labs: Laboratory Results - last 24 hr 11/09/22 11/09/22 11/09/22 13:17 17:50 19:41 MCV MCH MCHC RDW Plt Count MPV Immature Gran % (Auto) Neut % (Auto) Lymph % (Auto) [place] % (Auto) Eos % (Auto) Baso % (Auto) Lymph # (Auto) [place] # (Auto) Eos # (Auto) Baso # (Auto) Abs Immat Gran (auto) Absolute Neuts (auto) Absolute Nucleated RBC Nucleated RBC % (auto) Anion Gap Estim Creat Clear Calc Estimated GFR POC Glucose 153 H 280 H 317 H Fasting Glucose Calcium Total Bilirubin AST ALT Alkaline Phosphatase Total Protein Albumin 11/10/22 11/10/22 11/10/22 06:03 06:03 08:34 MCV 94.6 MCH 29.3 MCHC 30.9 L RDW 14.1 Plt Count 220 MPV 10.1 Immature Gran % (Auto) 0.9 H Neut % (Auto) 64.3 Lymph % (Auto) 25.5 [place] % (Auto) 7.2 Eos % (Auto) 1.7 Baso % (Auto) 0.4 Lymph # (Auto) 2.0 [place] # (Auto) 0.6 Eos # (Auto) 0.1 Baso # (Auto) 0.0 Abs Immat Gran (auto) 0.07 H Absolute Neuts (auto) 5.0 Absolute Nucleated RBC 0.000 Nucleated RBC % (auto) 0.0 Anion Gap 14 Estim Creat Clear Calc 99.2 Estimated GFR > 60 POC Glucose 196 H Fasting Glucose 197 H Calcium 8.5 Total Bilirubin 0.4 AST 17 ALT 16 Alkaline Phosphatase 67 Total Protein 6.2 L Albumin 3.1 L 11/10/22 11:27 MCV MCH MCHC RDW Plt Count MPV Immature Gran % (Auto) Neut % (Auto) Lymph % (Auto) [place] % (Auto) Eos % (Auto) Baso % (Auto) Lymph # (Auto) [place] # (Auto) Eos # (Auto) Baso # (Auto) Abs Immat Gran (auto) Absolute Neuts (auto) Absolute Nucleated RBC Nucleated RBC % (auto) Anion Gap Estim Creat Clear Calc Estimated GFR POC Glucose 253 H Fasting Glucose Calcium Total Bilirubin AST ALT Alkaline Phosphatase Total Protein Albumin Microbiology Microbiology Results: Microbiology 11/08/22 Unknown Urine Culture - Final Urine clean catch - Clean Catch Midstream 11/08/22 22:12 Blood Culture - Preliminary Blood - Venous No growth after 24 hours. 11/08/22 22:12 Blood Culture - Preliminary Blood - Venous No growth after 24 hours. Assessment and Plan (1) Acute and chronic respiratory failure with hypercapnia: Status: Acute (2) Diabetes mellitus, type 2: Status: Acute Plan 61-year-old female with past medical history of hypoventilation syndrome as well as SMILEY noncompliant with BiPAP, and history of ESBL UTI presents to the hospital with complaints of hallucinations, shortness of breath found to be hypercapnic in backdrop of UTI 1.Acute on chronic respiratory failure with hypercapnia as well as hypoxia - urged compliance with BiPAP when sleeping or overnight - titrate O2 as tolerated 2.UTI with ESBL Klebsiella - has had ESBL Klebsiella in the past - thus far urine culture negative blood cultures negative times 24 hours - will start meropenem, infectious disease consulted. follow-up cultures 3.Diabetes II - poorly control - will add 10 units of Lantus at bedtime - continue lispro correctional correctional scale 4.Hypertension -acceptable current therapies - adjust as indicated Lovenox Full Code requires ongoing hospitalization to demonstrate negative blood cultures times 48 hours and ID consult Time Spent With Patient Time: Total time managing care of this patient today ____ minutes. Quality Stroke Does the patient have a stroke diagnosis?: No VTE Prior VTE?: No VTE Risk Level:: Medical - moderate - high VTE Device Contraindication: N/A - Device Ordered VTE Drug Contraindication: Treatment Not Indicated
[2022-11-10 15:43] LABS: Glucose, Whole Blood 172 mg/dL (60-115)
[2022-11-10 20:15] LABS: Glucose, Whole Blood 237 mg/dL (60-115)
[2022-11-10] MEDS: Atorvastatin Calcium 80 MG TABLET PO (21:38)
[2022-11-11] VITALS (14 sets, daily range): BP systolic 113–187; BP diastolic 55–85; PULSE 60–90; RESP 16–26; TEMP 36.2–37.1; O2SAT 89–95
[2022-11-11] MEDS: Enoxaparin Sodium 40 MG/0.4 ML SYRINGE SUBCUT (05:47)
[2022-11-11 06:59] LABS: MANUAL DIFF FLAG NO
[2022-11-11 07:13] LABS: Basophils Percent Auto 0.3 % (0-2); Eosinophils Absolute Auto 0.1 X10*3/uL (0.0-0.4); Eosinophils Percent Auto 1.3 % (0-4); Hematocrit 37.9 % (37.0-47.0); Hemoglobin 11.3 g/dl (12.0-16.0); Imm Gran Abs Auto 0.02 X10*3/uL (0.00-0.03); Imm Gran Pct Auto 0.3 % (0.0-0.4); Lymphocytes Absolute Auto 1.8 X10*3/uL (1.2-4.9); Lymphocytes Percent Auto 25.6 % (20-40); Mean Corpuscular HGB Conc 29.8 g/dl (31.0-35.0); Mean Corpuscular Hemoglobin 28.7 pg (27.0-33.0); Mean Corpuscular Volume 96.2 fL (80.0-98.0); Mean Platelet Volume 9.9 fL (9.4-12.3); Monocytes Absolute Auto 0.6 X10*3/uL (0.1-1.2); Monocytes Percent Auto 8.1 % (2-11); Neutrophils Absolute Auto 4.6 x10*3/uL (2.0-8.3); Neutrophils Percent Auto 64.4 % (45-73); Platelet Count 211 X10*3/uL (160-400); Red Blood Count 3.94 X10*6/uL (4.20-5.50); Red Cell Distribution Width 14.4 % (11.0-16.0); White Blood Count 7.1 X10*3/uL (4.8-10.8)
[2022-11-11 07:33] LABS: Anion Gap 13 (12-20); Carbon Dioxide 37 mmol/L (22-29); Chloride 99 mmol/L (96-108); Potassium 4.4 mmol/L (3.3-5.1); Sodium 145 mmol/L (135-145)
[2022-11-11 07:38] LABS: Alanine Aminotransferase 12 U/L (0-31); Alkaline Phosphatase 59 U/L (39-117); Aspartate Amino Transferase 9 U/L (5-31); Bilirubin Total 0.3 mg/dL (0.0-1.0); Blood Urea Nitrogen 21 mg/dL (9-16); Calcium 8.4 mg/dL (8.4-10.2); Estimated Glomerular Filt Rate > 60; Glucose Fasting 229 mg/dL (60-99); Total Protein 5.9 g/dL (6.5-8.0)
[2022-11-11 07:57] LABS: Glucose, Whole Blood 209 mg/dL (60-115)
--- NOTE | 2022-11-11 08:43 | PC.RT ---
pt taken off bipap at this time and placed on a 4L NC. caleb well, appears comfortable. no skin breakdown noticed. No other changes made by RT at this time
[2022-11-11] MEDS: Insulin Lispro 100 UNIT/ML 3 ML VIAL SUBCUT ×7 (09:19→21:42)
[2022-11-11] MEDS: Insulin Glargine,Hum.rec.anlog 100 UNIT/ML 10 ML VIAL 52 UNIT SUBCUT (09:19)
[2022-11-11] MEDS: amLODIPine Besylate 5 MG TABLET PO (09:21)
[2022-11-11] MEDS: Megestrol Acetate 400 MG/10 ML ORAL.SUSP PO ×3 (09:21→21:40)
[2022-11-11] MEDS: buPROPion HCl XL 150 MG TAB.ER.24H PO (09:22)
[2022-11-11] MEDS: Gabapentin 300 MG CAPSULE 600 MG PO ×2 (09:22→21:40)
[2022-11-11] MEDS: buPROPion HCl XL 300 MG TAB.ER.24H PO (09:22)
[2022-11-11] MEDS: Furosemide 40 MG TABLET PO (09:22)
[2022-11-11] MEDS: Aspirin 81 MG TAB.CHEW PO (09:22)
[2022-11-11] MEDS: Sertraline HCL 100 MG TABLET 200 MG PO (09:22)
[2022-11-11] MEDS: Enalapril Maleate 10 MG TABLET 20 MG PO (09:22)
[2022-11-11 11:10] LABS: Glucose, Whole Blood 289 mg/dL (60-115)
[2022-11-11] MEDS: Gabapentin 300 MG CAPSULE PO (12:08)
--- NOTE | 2022-11-11 14:37 | MHC.CM.PN ---
per rounds pt will return to [facility] dcd no dc date at this time
[2022-11-11 15:38] LABS: Glucose, Whole Blood 287 mg/dL (60-115)
--- NOTE | 2022-11-11 16:28 | P.PNIM_ITS ---
Subjective Subjective Date of Service: 11/11/22 Interval History: lethargy improved denies BiPAP noncompliance Review of Systems Review of Systems: Yes all other systems are reviewed and are negative Physical Exam Vital Signs: Vital Signs: Last Vital Signs Temp 97.7 F 11/11/22 15:23 Pulse 72 11/11/22 15:54 Resp 18 11/11/22 15:54 BP 187/75 H 11/11/22 15:23 Pulse Ox 92 11/11/22 15:23 O2 Del Method 11/11/22 15:23 O2 Flow Rate 4 11/11/22 11:19 FiO2 30 11/10/22 15:59 BMI result Body Mass Index 45.7 Const: Other: Gen: in no acute distress HEENT: sclera anicteric, moist mucus membranes Neck: supple Lungs: dimimished bilaterally Heart: regular rate and rhythm, no murmurs Abd: soft, non-tender, non-distended, morbidly obese Ext: no edema Skin: warm/well-perfused Neuro: alert and oriented x3, no focal findings Psych: appropriate affect Objective Data Active Medications Acetaminophen (Acetaminophen 325 Mg Tablet) 650 mg PO Q6H PRN PRN Reason: Pain, Mild (Pain Scale 1-3) Last Admin: 11/09/22 06:49 Dose: 650 mg Documented By: VJ Acetaminophen (Acetaminophen 325 Mg Tablet) 650 mg PO Q4H PRN PRN Reason: Fever Or Pain Amlodipine Besylate (Amlodipine Besylate 5 Mg Tablet) 5 mg PO DAILY REPLACED BY [facility]; Protocol Last Admin: 11/11/22 09:21 Dose: 5 mg Documented By: ADDISON Aspirin (Aspirin 81 Mg Tab.Chew) 81 mg PO DAILY [facility] Last Admin: 11/11/22 09:22 Dose: 81 mg Documented By: ADDISON Atorvastatin Calcium (Atorvastatin Calcium 80 Mg Tablet) 80 mg PO BEDTIME REPLACED BY [facility] Last Admin: 11/10/22 21:38 Dose: 80 mg Documented By: NENITA Bisacodyl (Bisacodyl 10 Mg Supp.Rect) 10 mg [place] DAILY PRN PRN Reason: Constipation Bupropion HCl (Bupropion Hcl Xl 150 Mg Tab.Er.24h) 150 mg PO DAILY [facility] Last Admin: 11/11/22 09:22 Dose: 150 mg Documented By: ADDISON Bupropion HCl (Bupropion Hcl Xl 300 Mg Tab.Er.24h) 300 mg PO DAILY [facility] Last Admin: 11/11/22 09:22 Dose: 300 mg Documented By: ADDISON Albuterol Sulfate 2.5 mg/ (Ipratropium [place] 0.5 mg) 0 mg INHALE RQ4H WHILE AWAKE REPLACED BY [facility] Last Admin: 11/11/22 15:51 Dose: 2.5 each Documented By: IVA Dextrose (Dextrose 50 % 25 Gm/50 Ml Syringe) 25 gm IVPUSH Q15M PRN; Protocol PRN Reason: per Hypoglycemia Standing Ord. Docusate Sodium (Docusate Sodium 100 Mg Capsule) 100 mg PO DAILY PRN PRN Reason: Constipation Enalapril Maleate (Enalapril Maleate 10 Mg Tablet) 20 mg PO DAILY [facility]; Protocol Last Admin: 11/11/22 09:22 Dose: 20 mg Documented By: ADDISON Enoxaparin Sodium (Enoxaparin Sodium 40 Mg/0.4 Ml Syringe) 40 mg SUBCUT Q24H REPLACED BY [facility] Last Admin: 11/11/22 05:47 Dose: 40 mg Documented By: NENITA Furosemide (Furosemide 40 Mg Tablet) 40 mg PO DAILY [facility]; Protocol Last Admin: 11/11/22 09:22 Dose: 40 mg Documented By: ADDISON Gabapentin (Gabapentin 300 Mg Capsule) 300 mg PO DAILY@1200 REPLACED [facility] Last Admin: 11/11/22 12:08 Dose: 300 mg Documented By: ADDISON Gabapentin (Gabapentin 300 Mg Capsule) 600 mg PO BID REPLACED BY [facility] Last Admin: 11/11/22 09:22 Dose: 600 mg Documented By: ADDISON Glucose (Glucose Gel 15 Gm Gel..Gram.) 15 gm PO Q15M PRN; Protocol PRN Reason: per Hypoglycemia Standing Ord. Insulin Glargine (Insulin Glargine,Hum.Rec.Anlog 100 Unit/Ml 10 Ml Vial) 52 unit SUBCUT DAILY [facility] Last Admin: 11/11/22 09:19 Dose: 52 unit Documented By: ADDISON Insulin Human Lispro (Insulin Lispro 100 Unit/Ml 3 Ml Vial) 0 unit SUBCUT QIDACHS REPLACED BY [facility]; Protocol Last Admin: 11/11/22 12:08 Dose: 6 unit Documented By: ADDISON Insulin Human Lispro (Insulin Lispro 100 Unit/Ml 3 Ml Vial) 0 unit SUBCUT QIDACHS REPLACED BY [facility]; Protocol Last Admin: 11/11/22 12:09 Dose: Not Given Documented By: ADDISON Non-Admin Reason: Duplicate Order Insulin Human Lispro (Insulin Lispro 100 Unit/Ml 3 Ml Vial) 5 unit SUBCUT TIDAC REPLACED BY [facility] Last Admin: 11/11/22 12:09 Dose: 5 unit Documented By: ADDISON Magnesium Hydroxide (Milk Of Magnesia 30 Ml Oral.Susp) 30 ml PO DAILY PRN PRN Reason: Constipation Megestrol Acetate (Megestrol Acetate 400 Mg/10 Ml Oral.Susp) 400 mg PO TID REPLACED BY [facility] Last Admin: 11/11/22 16:00 Dose: 400 mg Documented By: ADDISON Ondansetron HCl (Ondansetron Hcl 4 Mg/2 Ml Vial) 4 mg IVPUSH Q8H PRN PRN Reason: Nausea and Vomiting Pharmacy Consult (Consult Rx Perform Med Rec) 1 each MISCELLANE ONCE PRN PRN Reason: Consult order Sertraline HCl (Sertraline Hcl 100 Mg Tablet) 200 mg PO DAILY [facility]PL[facility] Last Admin: 11/11/22 09:22 Dose: 200 mg Documented By: ADDISON Tizanidine HCl (Tizanidine Hcl 4 Mg Tablet) 4 mg PO BEDTIME PRN PRN Reason: Muscle Spasm Labs 11/11/22 06:45 11/11/22 06:45 Labs: Laboratory Results - last 24 hr 11/10/22 11/11/22 11/11/22 20:09 06:45 06:45 MCV 96.2 MCH 28.7 MCHC 29.8 L RDW 14.4 Plt Count 211 MPV 9.9 Immature Gran % (Auto) 0.3 Neut % (Auto) 64.4 Lymph % (Auto) 25.6 [place] % (Auto) 8.1 Eos % (Auto) 1.3 Baso % (Auto) 0.3 Lymph # (Auto) 1.8 [place] # (Auto) 0.6 Eos # (Auto) 0.1 Baso # (Auto) 0.0 Abs Immat Gran (auto) 0.02 Absolute Neuts (auto) 4.6 Absolute Nucleated RBC 0.000 Nucleated RBC % (auto) 0.0 Anion Gap 13 Estim Creat Clear Calc 89.0 Estimated GFR > 60 POC Glucose 237 H Fasting Glucose 229 H Calcium 8.4 Total Bilirubin 0.3 AST 9 ALT 12 Alkaline Phosphatase 59 Total Protein 5.9 L Albumin 3.0 L 11/11/22 11/11/22 11/11/22 07:29 11:05 15:33 MCV MCH MCHC RDW Plt Count MPV Immature Gran % (Auto) Neut % (Auto) Lymph % (Auto) [place] % (Auto) Eos % (Auto) Baso % (Auto) Lymph # (Auto) [place] # (Auto) Eos # (Auto) Baso # (Auto) Abs Immat Gran (auto) Absolute Neuts (auto) Absolute Nucleated RBC Nucleated RBC % (auto) Anion Gap Estim Creat Clear Calc Estimated GFR POC Glucose 209 H 289 H 287 H Fasting Glucose Calcium Total Bilirubin AST ALT Alkaline Phosphatase Total Protein Albumin Microbiology Microbiology Results: Microbiology 11/08/22 22:12 Blood Culture - Preliminary Blood - Venous No growth after 48 hours. 11/08/22 22:12 Blood Culture - Preliminary Blood - Venous No growth after 48 hours. Assessment and Plan (1) Acute and chronic respiratory failure with hypercapnia: Status: Acute (2) Diabetes mellitus, type 2: Status: Acute Plan hospital d#3 61-year-old female with past medical history of hypoventilation syndrome as well as SMILEY noncompliant with BiPAP, and history of ESBL UTI who presented to the hospital with complaints of hallucinations and shortness of breath and was found to be hypercapnic # acute on chronic chronic respiratory failure with hypercapnia as well as hypoxia - urged compliance with BiPAP when sleeping or overnight - VBG in AM # hx UTI with ESBL Klebsiella - denies urinary symptoms so will d/c meropenem, discussed with ID # [id number] - basal-bolus insulin, check A1c # HTN - amlodipine, enalapril, furosemide # HLD - statin # mood disorder - bupropion, sertraline # VTE ppx: LMWH # dispo: anticipate return to [facility] In my clinical judgment, the patient requires continued inpatient hospitalization for the following reasons: hypercapneic resp failure Time Spent With Patient Time: Total time managing care of this patient today __35__ minutes. Quality Stroke Does the patient have a stroke diagnosis?: No VTE Prior VTE?: No VTE Risk Level:: Medical - moderate - high VTE Device Contraindication: N/A - Device Ordered VTE Drug Contraindication: Treatment Not Indicated
[2022-11-11 19:15] LABS: Glucose, Whole Blood 249 mg/dL (60-115)
[2022-11-11] MEDS: Atorvastatin Calcium 80 MG TABLET PO (21:40)
[2022-11-12] VITALS (7 sets, daily range): BP systolic 148–163; BP diastolic 73–86; PULSE 72–89; RESP 18–20; TEMP 36.5–37.1; O2SAT 92–97
[2022-11-12] MEDS: Enoxaparin Sodium 40 MG/0.4 ML SYRINGE SUBCUT (05:44)
[2022-11-12 07:10] LABS: MANUAL DIFF FLAG NO
[2022-11-12 07:14] LABS: VBG Base Excess 16.4 mmol/L; VBG HCO3 43 mmol/L (22-26); VBG pCO2 63 mmHg; VBG pH 7.44 (7.32-7.43); VBG pO2 85 mmHg
[2022-11-12 07:14] LABS: Venous Blood Gas Refer to POC result
[2022-11-12 07:14] LABS: Basophils Percent Auto 0.3 % (0-2); Eosinophils Absolute Auto 0.1 X10*3/uL (0.0-0.4); Eosinophils Percent Auto 1.6 % (0-4); Hemoglobin 11.4 g/dl (12.0-16.0); Imm Gran Abs Auto 0.01 X10*3/uL (0.00-0.03); Imm Gran Pct Auto 0.1 % (0.0-0.4); Lymphocytes Absolute Auto 1.8 X10*3/uL (1.2-4.9); Mean Corpuscular Hemoglobin 28.6 pg (27.0-33.0); Mean Corpuscular Volume 95.2 fL (80.0-98.0); Mean Platelet Volume 9.5 fL (9.4-12.3); Monocytes Absolute Auto 0.6 X10*3/uL (0.1-1.2); Neutrophils Absolute Auto 5.1 x10*3/uL (2.0-8.3); Platelet Count 217 X10*3/uL (160-400); Red Blood Count 3.99 X10*6/uL (4.20-5.50); Red Cell Distribution Width 14.3 % (11.0-16.0); White Blood Count 7.6 X10*3/uL (4.8-10.8)
[2022-11-12 07:31] LABS: Estimated Average Glucose 286 mg/dL; Hemoglobin A1c % 11.6 %
[2022-11-12 07:43] LABS: Alanine Aminotransferase 12 U/L (0-31); Albumin Level 3.1 g/dL (3.5-5.0); Alkaline Phosphatase 61 U/L (39-117); Anion Gap 10 (12-20); Aspartate Amino Transferase 10 U/L (5-31); Bilirubin Total 0.4 mg/dL (0.0-1.0); Blood Urea Nitrogen 23 mg/dL (9-16); Calcium 8.3 mg/dL (8.4-10.2); Carbon Dioxide 40 mmol/L (22-29); Chloride 98 mmol/L (96-108); Creatinine Clr Calc Pharmacy 95.5; Estimated Glomerular Filt Rate > 60; Glucose Fasting 189 mg/dL (60-99); Potassium 4.6 mmol/L (3.3-5.1); Sodium 143 mmol/L (135-145); Total Protein 6.2 g/dL (6.5-8.0)
[2022-11-12 07:52] LABS: Glucose, Whole Blood 172 mg/dL (60-115)
[2022-11-12] MEDS: Insulin Lispro 100 UNIT/ML 3 ML VIAL SUBCUT ×4 (08:27→12:16)
[2022-11-12] MEDS: Insulin Glargine,Hum.rec.anlog 100 UNIT/ML 10 ML VIAL 52 UNIT SUBCUT (08:27)
[2022-11-12] MEDS: Enalapril Maleate 10 MG TABLET 20 MG PO (08:29)
[2022-11-12] MEDS: buPROPion HCl XL 300 MG TAB.ER.24H PO (08:29)
[2022-11-12] MEDS: buPROPion HCl XL 150 MG TAB.ER.24H PO (08:29)
[2022-11-12] MEDS: Sertraline HCL 100 MG TABLET 200 MG PO (08:29)
[2022-11-12] MEDS: Megestrol Acetate 400 MG/10 ML ORAL.SUSP PO (08:29)
[2022-11-12] MEDS: amLODIPine Besylate 5 MG TABLET PO (08:30)
[2022-11-12] MEDS: Aspirin 81 MG TAB.CHEW PO (08:30)
[2022-11-12] MEDS: Gabapentin 300 MG CAPSULE 600 MG PO (08:30)
[2022-11-12] MEDS: Furosemide 40 MG TABLET PO (08:30)
[2022-11-12 11:32] LABS: COVID-19 Test Negative (Negative); IDNOW Serial# 16C4AD1C
[2022-11-12 11:37] LABS: Glucose, Whole Blood 250 mg/dL (60-115)
[2022-11-12] MEDS: Gabapentin 300 MG CAPSULE PO (12:15)
--- NOTE | 2022-11-12 13:20 | PM.DS ---
DS: Providers Provider Date of Service: 11/12/22 Date of admission: 11/09/22 05:35 Date of discharge: 11/12/22 Primary care physician: Tita Bal MD Consults: 11/08/22 23:19 Consult to Infectious Diseases Routine Consulting Provider: Odalis Holley Reason for consultation: uti esbl DS: Diagnosis Discharge Diagnosis (1) Acute and chronic respiratory failure with hypercapnia: Status: Acute (2) Diabetes mellitus, type 2: Status: Acute (3) Morbid obesity: Status: Acute (4) Metabolic encephalopathy: Status: Acute DS: Summary Hospital Course Hospital Course: from admission H+P by hospitalist Philomena Knowles MD, 11/09/22: 61-year-old female with past medical history of obesity hypoventilation syndrome noncompliant with CPAP, CHF, diabetes, HTN, SMILEY, pulmonary embolism, sick sinus syndrome, and chronic anemia presents the hospital with visual hallucinations.? Patient also reports that she had difficulty breathing, no cough and no sputum production.? Patient denies any chest pain, no abdominal pain, no urinary symptoms and no lower extremity edema.? On arrival to the ED patient hemodynamically stable with pH of 7.32, CO2 of 90, patient was placed on BiPAP for several hours with improvement of her CO2 to 60 and a pH of 7.45, UA +ve nitrates, leukocyte Estrace, WBC, Chest x-ray shows low lung volume with linear subsegmental atelectasis in the right mid lung, no definite airspace consolidation or pleural effusion Patient is lying flat in bed, no orthopnea or PND This 61-year-old female with past medical history of obesity hypoventilation syndrome as well as SMILEY, not fully compliant with BiPAP, and history of ESBL UTI who presented to the hospital with complaints of hallucinations and shortness of breath and was found to be hypercapnic. Her symptoms resolved with BiPAP usage while sleeping. She was initially treated with meropenem but denied any urinary symptoms, so antibiotics were discontinued. A1c was 11.6, so she needs better glycemic control. Above all, the importance of compliance with BiPAP was counseled. She should follow up with her PCP as well as be referred to Pulmonology and to Endocrinology. Time Spent with Patient Time attestation: Total time managing care of this patient today __35__ minutes. Discharge coordination time: Greater than 30 minutes Quality: Safe Use of Opioids Does Pt have an Active Cancer Diagnosis on the Problem List?: No Quality: Stroke Does the patient have a stroke diagnosis?: No Physical Exam Vital Signs: Vital Signs: Last Vital Signs Temp 98.5 F 11/12/22 11:29 Pulse 89 11/12/22 11:46 Resp 20 11/12/22 11:46 BP 154/86 H 11/12/22 11:29 Pulse Ox 93 11/12/22 11:29 O2 Del Method 11/12/22 11:29 O2 Flow Rate 4 11/12/22 11:29 FiO2 30 11/10/22 15:59 BMI result Body Mass Index 45.7 Gen: in no acute distress HEENT: sclera anicteric, moist mucus membranes Neck: supple Lungs: dimimished bilaterally Heart: regular rate and rhythm, no murmurs Abd: soft, non-tender, non-distended, morbidly obese Ext: no edema Skin: warm/well-perfused Neuro: alert and oriented x3, no focal findings Psych: appropriate affect ? DS: Data Data Completed and Pending Completed studies during hospitalization [Text1]: Laboratory Results WBC 7.6 X10*3/uL (4.8-10.8) 11/12/22 07:05 RBC 3.99 X10*6/uL (4.20-5.50) L 11/12/22 07:05 Hgb 11.4 g/dl (12.0-16.0) L 11/12/22 07:05 Hct 38.0 % (37.0-47.0) 11/12/22 07:05 MCV 95.2 fL (80.0-98.0) 11/12/22 07:05 MCH 28.6 pg (27.0-33.0) 11/12/22 07:05 MCHC 30.0 g/dl (31.0-35.0) L 11/12/22 07:05 RDW 14.3 % (11.0-16.0) 11/12/22 07:05 Plt Count 217 X10*3/uL (160-400) 11/12/22 07:05 MPV 9.5 fL (9.4-12.3) 11/12/22 07:05 Immature Gran % (Auto) 0.1 % (0.0-0.4) 11/12/22 07:05 Neut % (Auto) 66.0 % (45-73) 11/12/22 07:05 Lymph % (Auto) 24.0 % (20-40) 11/12/22 07:05 [place] % (Auto) 8.0 % (2-11) 11/12/22 07:05 Eos % (Auto) 1.6 % (0-4) 11/12/22 07:05 Baso % (Auto) 0.3 % (0-2) 11/12/22 07:05 Lymph # (Auto) 1.8 X10*3/uL (1.2-4.9) 11/12/22 07:05 [place] # (Auto) 0.6 X10*3/uL (0.1-1.2) 11/12/22 07:05 Eos # (Auto) 0.1 X10*3/uL (0.0-0.4) 11/12/22 07:05 Baso # (Auto) 0.0 X10*3/uL (0.0-0.2) 11/12/22 07:05 Abs Immat Gran (auto) 0.01 X10*3/uL (0.00-0.03) 11/12/22 07:05 Absolute Neuts (auto) 5.1 x10*3/uL (2.0-8.3) 11/12/22 07:05 Absolute Nucleated RBC 0.000 X10*3/uL (0.0-0.012) 11/12/22 07:05 Nucleated RBC % (auto) 0.0 /100WBC (0.0-0.2) 11/12/22 07:05 PT 10.8 SEC (10.0-13.1) 11/08/22 21:44 INR 0.9 (0.9-1.1) 11/08/22 21:44 VBG pH 7.44 (7.32-7.43) H 11/12/22 07:08 VBG pCO2 63 mmHg 11/12/22 07:08 VBG pO2 85 mmHg 11/12/22 07:08 VBG HCO3 43 mmol/L (22-26) H 11/12/22 07:08 VBG O2 Saturation 99.0 % 11/12/22 07:08 VBG Base Excess 16.4 mmol/L 11/12/22 07:08 Sodium 143 mmol/L (135-145) 11/12/22 07:05 Potassium 4.6 mmol/L (3.3-5.1) 11/12/22 07:05 Chloride 98 mmol/L (96-108) 11/12/22 07:05 Carbon Dioxide 40 mmol/L (22-29) H* 11/12/22 07:05 Anion Gap 10 (12-20) L 11/12/22 07:05 BUN 23 mg/dL (9-16) H 11/12/22 07:05 Creatinine 0.81 mg/dL (0.5-1.4) 11/12/22 07:05 Estim Creat Clear Calc 95.5 11/12/22 07:05 Estimated GFR > 60 11/12/22 07:05 POC Glucose 250 mg/dL (60-115) H 11/12/22 11:31 Random Glucose 165 mg/dL (60-115) H 11/09/22 07:50 Fasting Glucose 189 mg/dL (60-99) H 11/12/22 07:05 Estimat Average Glucose 286 mg/dL 11/12/22 07:05 Hemoglobin A1c % 11.6 % 11/12/22 07:05 Lactic Acid 1.1 mmol/L (0.5-2.0) 11/08/22 21:44 Calcium 8.3 mg/dL (8.4-10.2) L 11/12/22 07:05 Total Bilirubin 0.4 mg/dL (0.0-1.0) 11/12/22 07:05 Direct Bilirubin < 0.2 mg/dL (0.0-0.5) 11/08/22 21:44 AST 10 U/L (5-31) 11/12/22 07:05 ALT 12 U/L (0-31) 11/12/22 07:05 Alkaline Phosphatase 61 U/L (39-117) 11/12/22 07:05 Troponin I High Sens 16.1 ng/L (<3.5-17.0) 11/09/22 00:36 B-Natriuretic Peptide < 10 pg/mL (<100) 11/08/22 21:44 Total Protein 6.2 g/dL (6.5-8.0) L 11/12/22 07:05 Albumin 3.1 g/dL (3.5-5.0) L 11/12/22 07:05 Urine Color Yellow 11/08/22 22: Urine Appearance Clear 11/08/22 22: Urine pH 5.0 (5.0-9.0) 11/08/22 22:26 Ur Specific [place] >= 1.030 (1.005-1.025) H 11/08/22 22:26 Urine Protein Negative mg/dL (Neg-Trace) 11/08/22 22: Urine Glucose (UA) >=1000 mg/dL (Negative) H 11/08/22 22: Urine Ketones Negative mg/dL (Negative) 11/08/22 22: Urine Blood Moderate (2+) (Negative) H 11/08/22 22: Urine Nitrite Positive (Negative) H 11/08/22 22:26 Ur Leukocyte Esterase Small (1+) (Negative) H 11/08/22 22: Urine RBC >20 /HPF (0-2) H 11/08/22 22:26 Urine WBC 21-50 /HPF (0-5) H 11/08/22 22:26 Ur Squamous Epith Cells 3-5 /HPF (0-2) 11/08/22 22:26 Urine Bacteria 2+ (None Seen) 11/08/22 22: Hyaline Casts 3-5 /LPF (0-2) 11/08/22 22:26 Urine Yeast Present 11/08/22 22:26 COVID-19 (LIS) Negative (Negative) 11/12/22 11:00 COVID-19 Clin Com See Note 11/12/22 11:00 Influenza Type A (CHUNG) Negative (Negative) 11/08/22 21:44 Influenza Type B (CHUNG) Negative (Negative) 11/08/22 21:44 Influenza A & B Note See Note 11/08/22 21:44 Impressions Chest X-Ray 11/08/22 21:20 IMPRESSION: 1. Low lung volumes with linear subsegmental atelectasis in the right midlung. 2. No definite airspace consolidation or pleural effusions. 3. Possible pulmonary vascular congestion. Discharge Plan Discharge Anticipated Discharge Date/Time: 11/12/22 13:16 Patient Disposition: Xfer SNF Discharge Diagnosis: acute on chronic chronic respiratory failure with hypercapnia as well as hypoxia uncontrolled type 2 diabetes mellitus Referrals: eugenia villavicencio [Other] - 1 Week [facility] [place] [facility] [Provider Group] - 1 Week [facility] [place] Pulmonology Services [Provider Group] - 1 Week Tita Bal MD [Primary Care Provider] - 1 Week Discharge Medications: Continued furosemide 40 mg Tablet 40 mg PO DAILY Qty: 30 0RF Protocol: Hold for SBP< HOLD for SBP < : 90 ipratropium-albuterol 0.5 mg-3 mg(2.5 mg base)/3 mL Solution For Nebulization 3 ml INHALATION TID potassium chloride 10 mEq Tablet Extended Release 10 meq PO DAILY Culturelle 10 billion cell Capsule 1 cap PO BID bupropion HCl 150 mg tablet extended release 24 hr 1 tab PO DAILY Rx Instructions: take with 300mg; tdd 450mg insulin glargine 100 unit/mL Solution 52 unit SUBCUT DAILY magnesium hydroxide [Milk of Magnesia] 400 mg/5 mL Suspension 30 ml PO DAILY PRN (Reason: Constipation) Fleet Enema 19-7 gram/118 mL Enema 118 ml MS DAILY PRN (Reason: Constipation) fluticasone propion-salmeterol [AirDuo RespiClick] 113-14 mcg/actuation aerosol powdr breath activated 1 inh inhalation DAILY Rx Instructions: rinse mouth after use atorvastatin 80 mg Tablet 80 mg PO BEDTIME sennosides [senna] 8.6 mg Tablet 16.2 mg PO DAILY PRN (Reason: Constipation) acetaminophen 325 mg Tablet 650 mg PO Q4H PRN (Reason: Fever Or Pain) polyethylene glycol 3350 [Miralax] 17 gram Powder In Packet 17 g PO DAILY PRN (Reason: Constipation) tizanidine 4 mg Tablet 4 mg PO BEDTIME PRN (Reason: Muscle Spasm) enalapril maleate 20 mg Tablet 20 mg PO DAILY sertraline 100 mg Tablet 200 mg PO DAILY melatonin 3 mg Tablet 3 mg PO BEDTIME ferrous sulfate 325 mg (65 mg iron) Tablet 325 mg PO DAILY gabapentin 300 mg Capsule 300 mg PO DAILY@1200 gabapentin 300 mg Capsule 600 mg PO BID insulin lispro 100 unit/mL Insulin Pen See Protocol SUBCUT QIDACHS Protocol: Insulin Correction Scale Less than or equal to 110 ---- Give (units): 0 111 to 150 Give (units): 0 151 to 200 Give (units): 2 201 to 250 Give (units): 4 251 to 300 Give (units): 6 301 to 350 Give (units): 8 Greater than 350 Give (units): 10 Call MD if Blood Glucose > : 350 Rx Instructions: SLIDING SCALE amlodipine 5 mg Tablet 5 mg PO DAILY 30 Days Qty: 30 0RF Protocol: Hold for SBP< HOLD for SBP < : 90 aspirin 81 mg Tablet,Chewable 81 mg PO DAILY megestrol 400 mg/10 mL (10 mL) Suspension 400 mg PO TID bisacodyl 10 mg suppository 10 mg MS DAILY PRN (Reason: Constipation) magnesium citrate [Citrate of Magnesia] Solution 150 ml PO DAILY PRN (Reason: Constipation) bupropion HCl 300 mg tablet extended release 24 hr 300 mg PO DAILY Rx Instructions: take with 150mg dose; tdd 450mg insulin lispro 100 unit/mL solution 5 unit subcut TIDAC Discharge Orders: Discharge Order (Routine); Ordered 11/12/22 Ordered By: Gopal Patel Diet: Diabetic diet Activity on Discharge: As tolerated Stand Alone Forms: Patient Portal Discharge page Care Plan Goals: pulmonary health Health Concerns: # acute on chronic chronic respiratory failure with hypercapnia as well as hypoxia # DM2 Plan of Treatment: use BiPAP overnight and for naps, 16/5 cm H20, fiO2 40% follow up with [facility] Pulmonology referral to [facility] [place] Endocrinology for improved diabetes control [A1c is 11.6] Please follow up with your primary care doctor within 1 week. Return to the hospital if you experience recurrent or worsening symptoms. Assessment: See Discharge Summary.
== END 2022-11-12 13:45 | disposition skilled nursing facility (03) | DRG 689 ==
LOC: HO.ED 11-09 04:36 → HO.EDOVER 11-09 07:23 → HO.IMC 11-09 16:22
PROVIDERS: Internal Medicine; Admitting Provider Hospitalist; Emergency Provider Emergency Medicine; PCP Internal Medicine; Visit Provider Family Medicine
DX: N39.0 Urinary tract infection, site not specified (principal); J96.21 Acute and chronic respiratory failure with hypoxia; J96.22 Acute and chronic respiratory failure with hypercapnia; E66.2 Morbid (severe) obesity with alveolar hypoventilation; J98.11 Atelectasis; Z16.12 Extended spectrum beta lactamase (ESBL) resistance; Z68.42 Body mass index [BMI] 45.0-49.9, adult; B96.1 Klebsiella pneumoniae [K. pneumoniae] as the cause of diseases classified elsewhere; I11.0 Hypertensive heart disease with heart failure; F32.A Depression, unspecified; E11.65 Type 2 diabetes mellitus with hyperglycemia; Z20.822 Contact with and (suspected) exposure to COVID-19; Z87.891 Personal history of nicotine dependence; Z91.199 Patient's noncompliance with other medical treatment and regimen due to unspecified reason; Z91.040 Latex allergy status; Z79.4 Long term (current) use of insulin; Z79.51 Long term (current) use of inhaled steroids; Z79.82 Long term (current) use of aspirin; Z79.899 Other long term (current) drug therapy
CPT/HCPCS: 36415; 71045; 80048; 80053; 80076; 81001; 82803; 82947; 83036; 83605; 83880; 84484; 85025; 85610; 87040; 87086; 87502; 87635; 93005; 94640; 94660; 96361; 96374; 96375; 99285; J1650; J2185

== ENCOUNTER 2022-11-20 00:09 | Inpatient (IN) | payer OTHER, MEDICARE, MEDICAID, SELFPAY ==
[2022-11-20] VITALS (28 sets, daily range): BP systolic 138–184; BP diastolic 69–97; PULSE 62–95; RESP 12–23; TEMP 36.9–37.5; O2SAT 80–96; BMI 63.1; BMI 55.3
--- NOTE | 2022-11-20 | ECG_ITS ---
Test Reason : ams Blood Pressure : / mmHG Vent. Rate : 072 BPM Atrial Rate : 072 BPM P-R Int : 184 ms QRS Dur : 152 ms QT Int : 420 ms P-R-T Axes : 027 -32 109 degrees QTc Int : 459 ms Normal sinus rhythm Left axis deviation Left bundle branch block Abnormal ECG When compared with ECG of 08-NOV-2022 21:43, No significant change was found Referred By: Generic ED Physician Electronically Signed By:SANJANA LAGUERRE
--- NOTE | ~2022-11-20 | XR_ITS ---
EXAMINATION: XR CHEST CLINICAL INFORMATION: Shortness of breath COMPARISON: 11/08/2022 TECHNIQUE: Frontal view of the chest was obtained. FINDINGS: Low lung volumes. Bilateral mid and lower lung streaky opacities larger reflective of platelike atelectasis. No discrete consolidation. No pleural effusion or pneumothorax. Pulmonary venous congestion without overt edema. Stable cardiac mediastinal silhouette. No acute osseous abnormalities. XR/XR chest 1V IMPRESSION: * Low lung volumes and bilateral platelike atelectasis. * No discrete consolidation.
--- NOTE | ~2022-11-20 | CT_ITS ---
EXAMINATION: CT CHEST WITHOUT CONTRAST CLINICAL INFORMATION: Shortness of breath COMPARISON: 10/09/2022 TECHNIQUE: Multidetector volumetric CT imaging of the chest was done. Axial MIP volume rendering provided. Sagittal and coronal reformatted images were obtained. This CT examination was performed using dose optimization techniques as appropriate, variously including the following: *Automated exposure control *Adjustment of mA and/or kV according to patient size (this includes techniques or standardized protocols for targeted exams where dose is matched to indication/reason for exam; i.e. extremities or head) *Use of iterative reconstruction technique DLP: 695 mGy-cm FINDINGS: The thoracic inlet is comparable to previous. Prominent right thyroid. Consider ultrasound. No deviation of the trachea. The lower trachea demonstrate some filling defect on the right. Image 14. This could represent secretions. Attention to follow-up. There is improved caliber of the airways. Partially visualized upper abdominal structures demonstrate gallstones within the gallbladder. Probable renal cyst on the left. Centrally no bulky adenopathy. The hilar regions are grossly comparable to previous exam. Prominent hilar structures. Imaging of the lung royal. Right lung; Persistent right upper lung density. This appears increasing from previous. This could represent infiltrate or tumor. Image 16. Persistent basilar opacities not significantly changed. Left lung; Increasing left basilar opacity in the lingula consistent with infiltrate/atelectasis. Mildly increasing left basilar opacities consistent with infiltrate/atelectasis. Review of the bone windows demonstrates degenerative changes. No acute finding. CT/CT chest wo IV con IMPRESSION: Worsening left lung. Infiltrate/atelectasis developing in the lingula with some worsening at the left base of previously documented opacities. On the right persistent upper lobe opacity which is showing some worsening. This may be worsening dense infiltrate. Underlying lung lesion of course could not be excluded. Attention to follow-up. Improved caliber of the airway is noted Other findings are as noted above
[2022-11-20 00:39] LABS: MANUAL DIFF FLAG NO
[2022-11-20 00:40] LABS: Basophils Percent Auto 0.2 % (0-2); Eosinophils Absolute Auto 0.1 X10*3/uL (0.0-0.4); Eosinophils Percent Auto 1.4 % (0-4); Hematocrit 40.1 % (37.0-47.0); Hemoglobin 11.7 g/dl (12.0-16.0); Imm Gran Abs Auto 0.02 X10*3/uL (0.00-0.03); Imm Gran Pct Auto 0.2 % (0.0-0.4); Lymphocytes Percent Auto 22.5 % (20-40); Mean Corpuscular HGB Conc 29.2 g/dl (31.0-35.0); Mean Corpuscular Hemoglobin 28.1 pg (27.0-33.0); Mean Corpuscular Volume 96.2 fL (80.0-98.0); Mean Platelet Volume 9.6 fL (9.4-12.3); Monocytes Absolute Auto 0.7 X10*3/uL (0.1-1.2); Monocytes Percent Auto 7.5 % (2-11); Neutrophils Absolute Auto 5.9 x10*3/uL (2.0-8.3); Neutrophils Percent Auto 68.2 % (45-73); Platelet Count 212 X10*3/uL (160-400); Red Blood Count 4.17 X10*6/uL (4.20-5.50); Red Cell Distribution Width 13.4 % (11.0-16.0); White Blood Count 8.7 X10*3/uL (4.8-10.8)
[2022-11-20 00:41] LABS: Venous Blood Gas Refer to POC result
[2022-11-20 00:42] LABS: VBG Base Excess 10.8 mmol/L; VBG HCO3 38 mmol/L (22-26); VBG pCO2 70 mmHg; VBG pH 7.34 (7.32-7.43); VBG pO2 68 mmHg
[2022-11-20 01:06] LABS: COVID-19 Test Negative (Negative); IDNOW Serial# 6674DD1D
[2022-11-20 01:16] LABS: Alanine Aminotransferase 13 U/L (0-31); Albumin Level 3.3 g/dL (3.5-5.0); Alkaline Phosphatase 69 U/L (39-117); Anion Gap 14 (12-20); Aspartate Amino Transferase 13 U/L (5-31); Bilirubin Total 0.3 mg/dL (0.0-1.0); Blood Urea Nitrogen 25 mg/dL (9-16); Carbon Dioxide 42 mmol/L (22-29); Chloride 94 mmol/L (96-108); Estimated Glomerular Filt Rate > 60; Glucose Fasting 238 mg/dL (60-99); Potassium 5.5 mmol/L (3.3-5.1); Sodium 144 mmol/L (135-145); Total Protein 6.5 g/dL (6.5-8.0)
--- NOTE | 2022-11-20 01:33 | ED.AMS ---
HPI - Altered Mental Status General Chief Complaint: Altered Mental Status Stated Complaint: unresponsive Time Seen by Provider: 11/20/22 01:29 Source: EMS and RN notes reviewed Mode of arrival: EMS Limitations: no limitations History of Present Illness HPI narrative: Patient 61 years old with frequent ED visits came from residential with history of obesity hypoventilation syndrome CHF SMILEY, hypertension, pulmonary embolism on Eliquis, sick sinus syndrome and chronic anemia noncompliant to CPAP which she is supposed to use during nighttime noticed by the staff that she is more confused check the saturation was 85% at room air patient refused to use BiPAP at residential after oxygen was applied 3 L patient's pulse ox was 82% and more confused patient had similar presentation in the past and also intubated in 2021 last discharge from [facility] was on 11/12/2022 patient denies any fever or cough no chest pain or palpitation Related Data Home Medications Medication Instructions Recorded Confirmed acetaminophen 325 mg tablet 650 mg PO Q4H PRN Fever Or Pain 11/18/21 11/20/22 atorvastatin 80 mg tablet 80 mg PO BEDTIME 11/18/21 11/20/22 enalapril maleate 20 mg tablet 20 mg PO DAILY 11/18/21 11/20/22 ferrous sulfate 325 mg (65 mg 325 mg PO DAILY 11/18/21 11/20/22 iron) tablet gabapentin 300 mg capsule 300 mg PO DAILY@1200 11/18/21 11/20/22 gabapentin 300 mg capsule 600 mg PO BID 11/18/21 11/20/22 insulin lispro 100 unit/mL See Protocol subcut QIDACHS 11/18/21 11/20/22 subcutaneous pen melatonin 3 mg tablet 3 mg PO BEDTIME 11/18/21 11/20/22 polyethylene glycol 3350 17 gram 17 g PO DAILY PRN Constipation 11/18/21 11/20/22 oral powder packet (Miralax) sennosides 8.6 mg tablet (senna) 16.2 mg PO DAILY PRN Constipation 11/18/21 11/20/22 sertraline 100 mg tablet 200 mg PO DAILY 11/18/21 11/20/22 tizanidine 4 mg tablet 4 mg PO BEDTIME PRN Muscle Spasm 11/18/21 11/20/22 aspirin 81 mg chewable tablet 81 mg PO DAILY 01/05/22 11/20/22 megestrol 400 mg/10 mL (10 mL) 400 mg PO TID 01/05/22 11/20/22 oral suspension bupropion HCl 300 mg 24 hr tablet, 300 mg PO DAILY 04/09/22 11/20/22 extended release insulin lispro 100 unit/mL 5 unit subcut TIDAC 04/09/22 11/20/22 subcutaneous solution Lactobacillus rhamnosus GG 10 1 cap PO BID 10/09/22 11/20/22 billion cell capsule (Culturelle) bupropion HCl 150 mg 24 hr tablet, 1 tab PO DAILY 10/09/22 11/20/22 extended release ipratropium 0.5 mg-albuterol 3 mg 3 ml inhalation TID 10/09/22 11/20/22 (2.5 mg base)/3 mL nebulization soln potassium chloride 10 mEq 10 meq PO DAILY 10/09/22 11/20/22 tablet,extended release bisacodyl 10 mg rectal suppository 10 mg ME DAILY PRN Constipation 10/21/22 11/20/22 magnesium citrate (Citrate of 150 ml PO DAILY PRN Constipation 10/21/22 11/20/22 Magnesia oral) fluticasone 113 mcg-salmeterol 14 1 inh inhalation DAILY 11/09/22 11/20/22 mcg/actuation breath activated powdr (AirDuo RespiClick) insulin glargine 100 unit/mL 52 unit subcut DAILY 11/09/22 11/20/22 subcutaneous solution magnesium hydroxide 400 mg/5 mL 30 ml PO DAILY PRN Constipation 11/09/22 11/20/22 oral suspension (Milk of Magnesia) sodium phosphates 19 gram-7 118 ml ME DAILY PRN Constipation 11/09/22 11/20/22 gram/118 mL enema (Fleet Enema) Previous Rx's Medication Instructions Recorded amlodipine 5 mg tablet 5 mg PO DAILY 30 days #30 tabs 11/26/21 furosemide 40 mg tablet 40 mg PO DAILY #30 tabs 04/05/22 Allergies Allergy/AdvReac Type Severity Reaction Status Date / Time latex Allergy Unknown Unknown Verified 10/21/22 13:48 adhesive tape AdvReac Unknown Unknown Verified 10/21/22 13:48 bupropion [From Wellbutrin] AdvReac Unknown Unknown Verified 10/21/22 13:48 ibuprofen AdvReac Unknown Unknown Verified 10/21/22 13:48 Review of Systems Review of Systems: Constitutional : No Weight loss, No Fever, No Chills ENT/Mouth : No sore throat, No Rhinorrhea Eyes: No Eye Pain, No Swelling Cardiovascular : No Chest Pain, no palpitations Respiratory : No Cough, No Sputum, +++shortness of breath Gastrointestinal : no Nausea, No Vomiting, No Diarrhea, No abdominal Pain, no black stools Genitourinary : No Dysuria, No Urinary Frequency Musculoskeletal : No joint pain, No Myalgias, No Joint Swelling Skin : No Skin Lesions, No rash Neuro : No Weakness, No Numbness, No Dizziness, No Headache Psych : No Anxiety/Panic, No Depression Heme/Lymph: No Bruising, No Lymphadenopathy Endocrine : No Polyuria, No Polydipsia All other systems reviewed and are negative Yes all other systems are reviewed and are negative [facility] Past Medical History Medical History Acute and chronic respiratory failure with hypercapnia Anemia Arthritis Atelectasis of both lungs CHF (congestive heart failure) Clostridium difficile infection Depression Diabetes mellitus, type 2 Diabetic ulcer of foot associated with diabetes mellitus due to underlying condition, with fat layer exposed Hypertension Hypoventilation associated with obesity syndrome Morbid obesity Morbid obesity Obesity hypoventilation syndrome SMILEY (obstructive sleep apnea) Presence of permanent cardiac pacemaker Pulmonary embolism Respiratory failure Respiratory failure with hypoxia and hypercapnia Sick sinus syndrome Urinary tract infection due to ESBL Klebsiella Surgical History History of total knee replacement Social History Social History Household Members: None Housing: [facility] Housing Other:: rehab facility Are you a primary landcare facilitator to a significant other at home: No Do you presently have visiting nurse or other home services: No Unable to assess alcohol history related to: Unknown Alcohol intake: never Patient Tobacco Use Status: Former Tobacco user Cigarettes Per Day: 0 e-Cigarette/Vaping Use: Never Used Second Hand Smoke Exposure: No Substance Use Type: Unknown Advance Directives: No Advance Directives Information Provided: Yes Patient : No service: No Current occupational status: disabled Physical Exam ED Vital Signs: Vital Signs - 24 hr 11/20/22 00:24 11/20/22 01:10 11/20/22 01:32 Temperature 98.5 F Pulse Rate 79 69 Respiratory Rate 16 20 19 Blood Pressure 153/83 H Pulse Oximetry 84 L 92 Oxygen Delivery Method Nasal Cannula BiPAP Oxygen Flow Rate 11/20/22 02:15 11/20/22 04:16 11/20/22 04:29 Temperature 98.9 F Pulse Rate 64 64 Respiratory Rate 16 16 20 Blood Pressure 158/76 H 152/82 H Pulse Oximetry 93 92 Oxygen Delivery Method BiPAP BiPAP Oxygen Flow Rate 6 11/20/22 05:39 11/20/22 05:25 11/20/22 06:47 Temperature 98.5 F Pulse Rate 69 Respiratory Rate 16 16 17 Blood Pressure 156/79 H Pulse Oximetry 86 L 86 L Oxygen Delivery Method Nasal Cannula Nasal Cannula Oxygen Flow Rate 6 3 11/20/22 06:50 Temperature Pulse Rate 68 Respiratory Rate 17 Blood Pressure Pulse Oximetry Oxygen Delivery Method Oxygen Flow Rate BMI result Body Mass Index 63.1 Appearance: Lethargic sleepy. Eyes: No pallor or icterus ENT: Pharynx normal. Oral Mucosa dry Neck: Normal inspection. Neck supple. CVS: Normal heart rate and rhythm. Pulses normal. Respiratory: No respiratory distress. Equal air entry bilateral, prolonged expiration bilaterally Abdomen: Soft and nontender. Bowel sounds are present, no mass palpable, no CVA tenderness Skin: Skin warm and dry. Normal skin color. Normal skin turgor. Extremities:2+ lower extremity edema. No calf tenderness Neuro: Oriented X 3. No motor deficit. No sensory deficit.No cerebellar signs , cranial nerves II-XII intact Medications Administered Discontinued Medications Generic Name Dose Route Start Last Admin Trade Name Freq PRN Reason Stop Dose Admin Albuterol Sulfate 7.5 mg/ 0 mg 11/20/22 06:37 11/20/22 06:45 Ipratropium [place] 0.5 mg INHALE 11/20/22 06:38 1 each ONCE ONE Administration Medical Decision Making Medical Decision Making MDM Narrative: Patient with acute on chronic respiratory failure with hypoventilation syndrome with COPD and SMILEY noncompliant to BiPAP patient was placed on BiPAP repeat venous gas is still shows metabolic alkalosis with respiratory acidosis and hypoxemia desaturated to 83% at room air. At residential patient uses BiPAP on in the night time at this the patient requiring BiPAP during daytime also let the patient to ICU case discussed Dr. Mccain will evaluate the patient in the ER at this time there is no signs of infection and hypoxemia is chronic, chest x-ray is negative Differential Diagnosis Differential Diagnoses: The differential diagnosis associated with the presentation includes COPD/pneumonia/CHF/chronic hypoxemia/SMILEY/COPD/hypoventilation syndrome Lab Data MDM Lab Attestation statement: I reviewed the patient's lab results. 11/20/22 00:34 11/20/22 00:34 Labs: Lab Results 11/20/22 11/20/22 11/20/22 Range/Units 00:34 00:34 00:36 WBC 8.7 (4.8-10.8) X10*3/uL RBC 4.17 L (4.20-5.50) X10*6/uL Hgb 11.7 L (12.0-16.0) g/dl Hct 40.1 (37.0-47.0) % MCV 96.2 (80.0-98.0) fL MCH 28.1 (27.0-33.0) pg MCHC 29.2 L (31.0-35.0) g/dl RDW 13.4 (11.0-16.0) % Plt Count 212 (160-400) X10*3/uL MPV 9.6 (9.4-12.3) fL Immature Gran % (Auto) 0.2 (0.0-0.4) % Neut % (Auto) 68.2 (45-73) % Lymph % (Auto) 22.5 (20-40) % [place] % (Auto) 7.5 (2-11) % Eos % (Auto) 1.4 (0-4) % Baso % (Auto) 0.2 (0-2) % Lymph # (Auto) 2.0 (1.2-4.9) X10*3/uL [place] # (Auto) 0.7 (0.1-1.2) X10*3/uL Eos # (Auto) 0.1 (0.0-0.4) X10*3/uL Baso # (Auto) 0.0 (0.0-0.2) X10*3/uL Abs Immat Gran (auto) 0.02 (0.00-0.03) X10*3/uL Absolute Neuts (auto) 5.9 (2.0-8.3) x10*3/uL Absolute Nucleated RBC 0.000 (0.0-0.012) X10*3/uL Nucleated RBC % (auto) 0.0 (0.0-0.2) /100WBC VBG pH 7.34 (7.32-7.43) VBG pCO2 70 mmHg VBG pO2 68 mmHg VBG HCO3 38 H (22-26) mmol/L VBG O2 Saturation 94.0 % VBG Base Excess 10.8 mmol/L Sodium 144 (135-145) mmol/L Potassium 5.5 H (3.3-5.1) mmol/L Chloride 94 L (96-108) mmol/L Carbon Dioxide 42 H* (22-29) mmol/L Anion Gap 14 (12-20) BUN 25 H (9-16) mg/dL Creatinine 0.85 (0.5-1.4) mg/dL Estim Creat Clear Calc 131.0 Estimated GFR > 60 Fasting Glucose 238 H (60-99) mg/dL Calcium 9.0 D (8.4-10.2) mg/dL Total Bilirubin 0.3 (0.0-1.0) mg/dL AST 13 (5-31) U/L ALT 13 (0-31) U/L Alkaline Phosphatase 69 (39-117) U/L Total Protein 6.5 (6.5-8.0) g/dL Albumin 3.3 L (3.5-5.0) g/dL COVID-19 (LIS) (Negative) COVID-19 Clin Com 11/20/22 11/20/22 Range/Units 00:43 05:53 WBC (4.8-10.8) X10*3/uL RBC (4.20-5.50) X10*6/uL Hgb (12.0-16.0) g/dl Hct (37.0-47.0) % MCV (80.0-98.0) fL MCH (27.0-33.0) pg MCHC (31.0-35.0) g/dl RDW (11.0-16.0) % Plt Count (160-400) X10*3/uL MPV (9.4-12.3) fL Immature Gran % (Auto) (0.0-0.4) % Neut % (Auto) (45-73) % Lymph % (Auto) (20-40) % [place] % (Auto) (2-11) % Eos % (Auto) (0-4) % Baso % (Auto) (0-2) % Lymph # (Auto) (1.2-4.9) X10*3/uL [place] # (Auto) (0.1-1.2) X10*3/uL Eos # (Auto) (0.0-0.4) X10*3/uL Baso # (Auto) (0.0-0.2) X10*3/uL Abs Immat Gran (auto) (0.00-0.03) X10*3/uL Absolute Neuts (auto) (2.0-8.3) x10*3/uL Absolute Nucleated RBC (0.0-0.012) X10*3/uL Nucleated RBC % (auto) (0.0-0.2) /100WBC VBG pH 7.44 H (7.32-7.43) VBG pCO2 71 mmHg VBG pO2 55 mmHg VBG HCO3 49 H (22-26) mmol/L VBG O2 Saturation 88.0 % VBG Base Excess 20.7 mmol/L Sodium (135-145) mmol/L Potassium (3.3-5.1) mmol/L Chloride (96-108) mmol/L Carbon Dioxide (22-29) mmol/L Anion Gap (12-20) BUN (9-16) mg/dL Creatinine (0.5-1.4) mg/dL Estim Creat Clear Calc Estimated GFR Fasting Glucose (60-99) mg/dL Calcium (8.4-10.2) mg/dL Total Bilirubin (0.0-1.0) mg/dL AST (5-31) U/L ALT (0-31) U/L Alkaline Phosphatase (39-117) U/L Total Protein (6.5-8.0) g/dL Albumin (3.5-5.0) g/dL COVID-19 (LIS) Negative (Negative) COVID-19 Clin Com See Note ABG Data ABG Results: Respiratory acidosis with metabolic alkalosis with hypoxia Critical Care Time Critical Care Time Critical Care Time: Yes Total Critical Care Time: 65 Attestation: The patient was critically ill with a high probability of imminent or life threatening deterioration. I spent greater than 70 minutes of discontinuous time evaluating the patient,delivering critical care at the bedside, discussing and evaluating pertinent data with consultants. Critical care time does not include time spent performing separately billable procedures or teaching. Total time spent performing critical care was 65 minutes. Discharge Plan Discharge Clinical Impression: Acute and chronic respiratory failure with hypercapnia Patient Disposition: Admitted As Inpatient
--- NOTE | 2022-11-20 01:41 | PC.NURSE ---
1:10 AM Pt placed on bipap at this time
[2022-11-20 06:13] LABS: VBG Base Excess 20.7 mmol/L; VBG HCO3 49 mmol/L (22-26); VBG pCO2 71 mmHg; VBG pH 7.44 (7.32-7.43); VBG pO2 55 mmHg
[2022-11-20 06:14] LABS: Venous Blood Gas Refer to POC result
--- NOTE | 2022-11-20 07:49 | PC.NURSE ---
Pt on BiPap at this time, resting comfortably tolerating well. Awake to voice, responding to questions appropriately. Vital signs stable. Labs drawn and sent. Call chun within reach.
[2022-11-20 08:28] LABS: B Type Natriuretic Peptide 20 pg/mL (<100)
--- NOTE | 2022-11-20 08:29 | PHA.MEDREC ---
Pharmacy Consult ? Medication Reconciliation Pharmacy has reviewed the medication reconciliation.
[2022-11-20 08:33] LABS: Anion Gap 13 (12-20); Blood Urea Nitrogen 22 mg/dL (9-16); Carbon Dioxide 42 mmol/L (22-29); Chloride 95 mmol/L (96-108); Creatinine Clr Calc Pharmacy 139.1; Estimated Glomerular Filt Rate > 60; Glucose Random 162 mg/dL (60-115); Potassium 5.2 mmol/L (3.3-5.1); Sodium 145 mmol/L (135-145)
[2022-11-20] MEDS: methylPREDNISolone Sod Succ 125 MG/2 ML VIAL 60 MG IVPUSH (10:53)
--- NOTE | 2022-11-20 11:09 | PC.NURSE ---
Respiratory at bedside to take pt off BiPap, pt now on oxymask at 7L, 90-92%.
--- NOTE | 2022-11-20 12:09 | PC.NURSE ---
Pt tolerating oxymask well. Pt completely changed into hospital attire and switched into hospital bed for comfort. Purewick in place. Awaiting ct scan results.
--- NOTE | 2022-11-20 12:42 | PC.NURSE ---
Pt reporting decrease in pain due to change in positioning and bed.
--- NOTE | 2022-11-20 13:30 | P.HPCC_ITS ---
History of Present Illness Date of Service: 11/20/22 Attending physician on admission: Cj Salazar Chief Complaint: altered mental status with acute hypoxic /hypercarbic respiratory failure 61-year-old morbidly obese type 2 diabetic with 1 of many frequent return visits to the same circumstance namely altered mental status with acute exacerbations of hypercarbic and hypoxic respiratory failure but in this instance she had a lingering need for the BiPAP mechanism because of increased work of breathing and presented with a multilobar infiltrate and she does live in a skilled nursing situations so this would be a nosocomial etiology for pneumonia presumably and I did a bedside echo which did show mild concentric left ventricular hypertrophy and she is in sinus rhythm with a left bundle branch block with clear-cut septal paradox so ejection fraction is moderately reduced probably in the range of the mid 40 percentile range and I of course could not visualize the inferior vena cava comfortably but there was no significant left ventricular or right ventricular dilatation and there was no primary valve or pericardial disease Blood gases on nasal high-flow indicated an acute rise in her pCO2 from 70-79 and somewhere between 65 and 70 is which she chronically is compensated so based on her continued dependence on BiPAP but we kept her in the ICU in case respiratory insufficiency had progressed to the point of intubation and she looked very comfortable on BiPAP generating excellent tidal volumes and blood gases over compensated pCO2 came down to 46 Review of Systems Review of Systems: Yes all other systems are reviewed and are negative PMFSH Past Medical History Medical History Acute and chronic respiratory failure with hypercapnia Anemia Arthritis Atelectasis of both lungs CHF (congestive heart failure) Clostridium difficile infection Depression Diabetes mellitus, type 2 Diabetic ulcer of foot associated with diabetes mellitus due to underlying condition, with fat layer exposed Hypertension Hypoventilation associated with obesity syndrome Morbid obesity Morbid obesity Obesity hypoventilation syndrome SMILEY (obstructive sleep apnea) Presence of permanent cardiac pacemaker Pulmonary embolism Respiratory failure Respiratory failure with hypoxia and hypercapnia Sick sinus syndrome Urinary tract infection due to ESBL Klebsiella Surgical History Surgical History History of total knee replacement Social History Social History Household Members: Spouse Housing: House Housing Other:: rehab facility Are you a primary health care marketing manager to a significant other at home: No Do you presently have visiting nurse or other home services: No (needs to go through the program of starting them up) Unable to assess alcohol history related to: Unknown Alcohol intake: never Patient Tobacco Use Status: Former Tobacco user Quit Date: 1999 Tobacco use type: Cigarette Cigarette Packs Per Day: 20 Cigarettes Per Day: 400.0 Years Smoked: 20 Smoked in Last 30 Days: No e-Cigarette/Vaping Use: Never Used Patient Interested in Nicotine Replacement: No Patient Given Instructions on How to Stop Smoking: No Second Hand Smoke Exposure: No Use of substances other than those prescribed or required for medical reasons: No Substance Use Type: Unknown Currently Displaying Signs/Symptoms of Drug Intoxication Withdrawal: No Have you been hit, kicked, punched, or otherwise hurt by someone within the past year? If so, by whom?: No Do you feel safe in your current relationship?: No Is there a partner from a previous relationship who is making you feel unsafe now?: No Are you made to feel afraid or neglected: No Spiritual Healthcare Practices: N/A Yarsanism Healthcare Practices: N/A Cultural Healthcare Practices: N/A Advance Directives: No Advance Directives Information Provided: Yes Advance Directives on File: No Do you have thoughts of harming others: None Do you have a plan to hurt others: No Plan Recently lost weight without trying: No Eating poorly because of decreased appetite: No Nutrition Risks: No Nutritional Risk and Dental problems Patient : No : No Poor oral hygiene: Yes (Patient trying to get to dentist, reports dental problems) service: No Current occupational status: disabled Meds Allergies Allergy/AdvReac Type Severity Reaction Status Date / Time latex Allergy Unknown Unknown Verified 10/21/22 13:48 adhesive tape AdvReac Unknown Unknown Verified 10/21/22 13:48 bupropion [From Wellbutrin] AdvReac Unknown Unknown Verified 10/21/22 13:48 ibuprofen AdvReac Unknown Unknown Verified 10/21/22 13:48 Active Medications: Current Medications Famotidine (Famotidine/Pf 20 Mg/2 Ml Vial) 20 mg IVPUSH BID ROSSY Heparin Sodium (Porcine) (Heparin Sodium,Porcine 5,000 Unit/Ml Vial) 5,000 unit SUBCUT Q8H ROSSY Cefepime HCl 1 gm/ Sodium (Chloride) 50 mls @ 100 mls/hr IV ONCE ONE Stop: 11/20/22 13:47 Levofloxacin (Levaquin) 750 mg in 150 mls @ 100 mls/hr IV Q24H ROSSY Home Medications Medication Instructions Recorded Confirmed Last Taken Type acetaminophen 325 mg tablet 650 mg PO Q4H PRN Fever Or Pain 11/18/21 11/20/22 Unknown History atorvastatin 80 mg tablet 80 mg PO BEDTIME 11/18/21 11/20/22 Unknown History enalapril maleate 20 mg tablet 20 mg PO DAILY 11/18/21 11/20/22 Unknown History ferrous sulfate 325 mg (65 mg 325 mg PO DAILY 11/18/21 11/20/22 Unknown History iron) tablet gabapentin 300 mg capsule 300 mg PO DAILY@1200 11/18/21 11/20/22 Unknown History gabapentin 300 mg capsule 600 mg PO BID 11/18/21 11/20/22 Unknown History insulin lispro 100 unit/mL See Protocol subcut QIDACHS 11/18/21 11/20/22 Unknown History subcutaneous pen melatonin 3 mg tablet 3 mg PO BEDTIME 11/18/21 11/20/22 Unknown History polyethylene glycol 3350 17 gram 17 g PO DAILY PRN Constipation 11/18/21 11/20/22 Unknown History oral powder packet (Miralax) sennosides 8.6 mg tablet (senna) 16.2 mg PO DAILY PRN Constipation 11/18/21 11/20/22 Unknown History sertraline 100 mg tablet 200 mg PO DAILY 11/18/21 11/20/22 Unknown History tizanidine 4 mg tablet 4 mg PO BEDTIME PRN Muscle Spasm 11/18/21 11/20/22 Unknown History aspirin 81 mg chewable tablet 81 mg PO DAILY 01/05/22 11/20/22 Unknown History megestrol 400 mg/10 mL (10 mL) 400 mg PO TID 01/05/22 11/20/22 Unknown History oral suspension bupropion HCl 300 mg 24 hr tablet, 300 mg PO DAILY 04/09/22 11/20/22 Unknown H istory extended release insulin lispro 100 unit/mL 5 unit subcut TIDAC 04/09/22 11/20/22 Unknown History subcutaneous solution Lactobacillus rhamnosus GG 10 1 cap PO BID 10/09/22 11/20/22 Unknown History billion cell capsule (Culturelle) bupropion HCl 150 mg 24 hr tablet, 1 tab PO DAILY 10/09/22 11/20/22 Unknown History extended release ipratropium 0.5 mg-albuterol 3 mg 3 ml inhalation TID 10/09/22 11/20/22 Unknown History (2.5 mg base)/3 mL nebulization soln potassium chloride 10 mEq 10 meq PO DAILY 10/09/22 11/20/22 Unknown History tablet,extended release bisacodyl 10 mg rectal suppository 10 mg NJ DAILY PRN Constipation 10/21/22 11/20/22 Unknown History magnesium citrate (Citrate of 150 ml PO DAILY PRN Constipation 10/21/22 11/20/22 Unknown History Magnesia oral) fluticasone 113 mcg-salmeterol 14 1 inh inhalation DAILY 11/09/22 11/20/22 Unknown History mcg/actuation breath activated powdr (AirDuo RespiClick) insulin glargine 100 unit/mL 52 unit subcut DAILY 11/09/22 11/20/22 Unknown History subcutaneous solution magnesium hydroxide 400 mg/5 mL 30 ml PO DAILY PRN Constipation 11/09/22 11/20/22 Unknown History oral suspension (Milk of Magnesia) sodium phosphates 19 gram-7 118 ml NJ DAILY PRN Constipation 11/09/22 11/20/22 Unknown History gram/118 mL enema (Fleet Enema) Physical Exam Vital Signs: Vital Signs: Last Vital Signs Temp 98.5 F 11/20/22 05:39 Pulse 71 11/20/22 12:05 Resp 19 11/20/22 12:05 BP 153/69 H 11/20/22 12:05 Pulse Ox 90 L 11/20/22 12:05 O2 Del Method 11/20/22 12:05 O2 Flow Rate 4 11/20/22 12:05 Oxygen Flow Rate 4 11/20/22 00:24 BMI result Body Mass Index 63.1 She remained modestly hypertensive 150-160 systolic in sinus rhythm with left bundle branch block unchanged When I saw her somewhat less lethargic but appropriate oriented nonfocal neurolo gic Bedside echo as I described hypertrophic myopathy reduced ejection fraction mostly because of septal paradox Lungs mild diaphragmatic effort with diminished bilateral breath sounds scattered wheezes left base Abdomen soft no organomegaly nontender Results Labs 11/20/22 00:34 11/20/22 07:48 Labs: Laboratory Results - last 24 hr 11/20/22 11/20/22 11/20/22 00:34 00:34 00:36 MCV 96.2 MCH 28.1 MCHC 29.2 L RDW 13.4 Plt Count 212 MPV 9.6 Immature Gran % (Auto) 0.2 Neut % (Auto) 68.2 Lymph % (Auto) 22.5 Gove % (Auto) 7.5 Eos % (Auto) 1.4 Baso % (Auto) 0.2 Lymph # (Auto) 2.0 Gove # (Auto) 0.7 Eos # (Auto) 0.1 Baso # (Auto) 0.0 Abs Immat Gran (auto) 0.02 Absolute Neuts (auto) 5.9 Absolute Nucleated RBC 0.000 Nucleated RBC % (auto) 0.0 VBG pH 7.34 VBG pCO2 70 VBG pO2 68 VBG HCO3 38 H VBG O2 Saturation 94.0 VBG Base Excess 10.8 Anion Gap 14 Estim Creat Clear Calc 131.0 Estimated GFR > 60 Random Glucose Fasting Glucose 238 H Calcium 9.0 D Total Bilirubin 0.3 AST 13 ALT 13 Alkaline Phosphatase 69 B-Natriuretic Peptide Total Protein 6.5 Albumin 3.3 L COVID-19 (LIS) COVID-19 Clin Com 11/20/22 11/20/22 11/20/22 00:43 05:53 07:48 MCV MCH MCHC RDW Plt Count MPV Immature Gran % (Auto) Neut % (Auto) Lymph % (Auto) Gove % (Auto) Eos % (Auto) Baso % (Auto) Lymph # (Auto) Gove # (Auto) Eos # (Auto) Baso # (Auto) Abs Immat Gran (auto) Absolute Neuts (auto) Absolute Nucleated RBC Nucleated RBC % (auto) VBG pH 7.44 H VBG pCO2 71 VBG pO2 55 VBG HCO3 49 H VBG O2 Saturation 88.0 VBG Base Excess 20.7 Anion Gap 13 Estim Creat Clear Calc 139.1 Estimated GFR > 60 Random Glucose 162 H Fasting Glucose Calcium 9.0 Total Bilirubin AST ALT Alkaline Phosphatase B-Natriuretic Peptide Total Protein Albumin COVID-19 (LIS) Negative COVID-19 Clin Com See Note 11/20/22 07:48 MCV MCH MCHC RDW Plt Count MPV Immature Gran % (Auto) Neut % (Auto) Lymph % (Auto) Gove % (Auto) Eos % (Auto) Baso % (Auto) Lymph # (Auto) Gove # (Auto) Eos # (Auto) Baso # (Auto) Abs Immat Gran (auto) Absolute Neuts (auto) Absolute Nucleated RBC Nucleated RBC % (auto) VBG pH VBG pCO2 VBG pO2 VBG HCO3 VBG O2 Saturation VBG Base Excess Anion Gap Estim Creat Clear Calc Estimated GFR Random Glucose Fasting Glucose Calcium Total Bilirubin AST ALT Alkaline Phosphatase B-Natriuretic Peptide 20 Total Protein Albumin COVID-19 (LIS) COVID-19 Clin Com Imaging Radiologist's Impressions: Impressions Chest X-Ray 11/20/22 06:24 IMPRESSION: * Low lung volumes and bilateral platelike atelectasis. * No discrete consolidation. Chest CT 11/20/22 11:31 IMPRESSION: Worsening left lung. Infiltrate/atelectasis developing in the lingula with some worsening at the left base of previously documented opacities. On the right persistent upper lobe opacity which is showing some worsening. This may be worsening dense infiltrate. Underlying lung lesion of course could not be excluded. Attention to follow-up. Improved caliber of the airway is noted Other findings are as noted above Assessment and Plan (1) Acute on chronic respiratory failure with hypoxia and hypercapnia: Status: Acute (2) Presence of permanent cardiac pacemaker: Status: Acute (3) Hypertrophic nonobstructive cardiomyopathy: Status: Acute (4) Nosocomial pneumonia: Status: Acute (5) PAD (peripheral artery disease): Status: Acute (6) Heart block AV third degree: Status: Acute (7) Morbid obesity: Status: Acute (8) Metabolic encephalopathy: Status: Acute (9) Acute and chronic respiratory failure with hypercapnia: Status: Acute Plan Plan is to continue BiPAP support monitoring blood gas with with a choice of empiric antibiotics to cover as a multilobar nosocomial infection and aggressive bronchodilator therapy Time Spent With Patient Time: Total time managing care of this patient today 60___ minutes.
[2022-11-20 13:40] LABS: Lactic Acid 0.6 mmol/L (0.5-2.0)
[2022-11-20 13:50] LABS: ABG Base Excess 21.2 mmol/L; ABG HCO3 50 mmol/L (22-26); ABG pCO2 76 mmHg (32-45); ABG pH 7.42 (7.35-7.45); ABG pO2 61 mmHg (83-108)
[2022-11-20 13:53] LABS: ABG Refer to POC result
[2022-11-20] MEDS: levoFLOXacin/D5W 750 MG/150 ML PIGGYBACK 100 MG IV (13:58)
[2022-11-20] MEDS: Heparin Sodium,Porcine 5,000 UNIT/ML VIAL 5000 UNIT SUBCUT ×2 (13:58→20:47)
[2022-11-20 15:30] LABS: Glucose, Whole Blood 214 mg/dL (60-115)
[2022-11-20] MEDS: Albuterol Sulfate (0.083%) 2.5 MG/3 ML VIAL.NEB INHALE ×2 (16:19→20:29)
[2022-11-20 16:35] LABS: Glucose, Whole Blood 219 mg/dL (60-115)
[2022-11-20 17:21] LABS: Appearance Urine Clear; Color Urine Yellow; Glucose Urine UA 500 mg/dL (Negative); Leukocyte Esterase Urine Trace (Negative); Nitrite Urine Positive (Negative); Specific Gravity - Urine 1.025 (1.005-1.025); UMIC TRIGGER UACC YES; Urine Blood Negative (Negative); Urine Ketones Trace mg/dL (Negative); Urine Protein 30 (1+) mg/dL (Neg-Trace)
[2022-11-20 17:27] LABS: Bacteria Urine 4+ (None Seen); Hyaline Casts Urine 0-2 /LPF (0-2); RBC Urine 0-2 /HPF (0-2); Squamous Epithelial Cell Urine 0-2 /HPF (0-2); UACC Culture Trigger YES
[2022-11-20 18:41] LABS: Glucose, Whole Blood 231 mg/dL (60-115)
[2022-11-20] MEDS: Insulin Lispro 100 UNIT/ML 3 ML VIAL SUBCUT (20:00)
[2022-11-20] MEDS: Famotidine/PF 20 MG/2 ML VIAL IVPUSH (20:11)
[2022-11-20] MEDS: Morphine Sulfate 2 MG/ML CARTRIDGE IVPUSH (20:45)
[2022-11-20] MEDS: Lidocaine 4 % Patch ADH..PATCH 1 PATCH TRANSDERMA (20:47)
--- NOTE | 2022-11-20 22:28 | PC.NURSE ---
Addendum entered by Jeffrey Arias RN 11/20/22 23:28: POC was due from 13:30, taken at 15:30 on arrival POC was 214, held insulin per MD. Patient is to wear Bipap overnight, uses at home. Patient was briefly nauseaous, took mask off and placed on oxymask briefly, nausea resolved spontaneously without intervention, though MD notified about nausea and patient with prolonged QTc of 592 ms, as well as apparent pre-existing slight T-wave elevation in lead II, but patient with Pacer as well. Patient QTc shortened on subsequent assessment. Original Note: Assumed care at 15:30 from ED. Patient arrived on oxymask, RT questioned Bipap as patient's pCO2 of 76 was compensated with HCO3 of 50 and pH of 7.42, but MD aware and plan to continue with Bipap, current settings 16/8 40% with TE around 11.2 - 15.9 and VT 572 - 649, SpO2 91 - 93%. No cough or secretions noted. Patient alert, forgetful, follows commands, responds to questions with somewhat bizarre responses at times showing impaired shortterm memory and forgetful about time and situation. Patient is able to move all extremities, left shoulder and bilateral knees with reduced ROM, reports surgical histories with complicated repeat knee replacement of left knee, well healed but source of chronic pain and limited ROM. Patient with chronic back pain mid back around T11-T12, reports history of spinal fusion at site and chronic pain constant 8/10 sharp pain, and bilateral feet with sharp, prickly 10/10 pain reported as patient described chronic and usually starting at 19:00, discussed with ORIENTATION AND MOBILITY INSTRUCTOR and given NPO status, morphine one time dose ordered and administered with good effect, lidocaine patch to mid back. Patient spouse, Miah, updated. 16 Fr Sood 10 cc balloon placed on arrival. chronic wounds to right heel and left buttock, placed in bariatric bed. Weight on zero'd bed was 175 kg, a drop of 24 kg from last weight, ORIENTATION AND MOBILITY INSTRUCTOR aware.
[2022-11-20 23:47] LABS: Glucose, Whole Blood 230 mg/dL (60-115)
[2022-11-21] VITALS (39 sets, daily range): BP systolic 144–177; BP diastolic 63–92; PULSE 63–90; RESP 14–28; TEMP 37.2–37.5; O2SAT 65–96; BMI 54.7
[2022-11-21 00:29] LABS: VBG Base Excess 16.4 mmol/L; VBG HCO3 40 mmol/L (22-26); VBG pCO2 43 mmHg; VBG pH 7.57 (7.32-7.43); VBG pO2 94 mmHg
[2022-11-21 00:30] LABS: Venous Blood Gas Refer to POC result
[2022-11-21] MEDS: Insulin Lispro 100 UNIT/ML 3 ML VIAL SUBCUT ×2 (00:42→06:04)
[2022-11-21 00:54] LABS: ABG HCO3 42 mmol/L (22-26); ABG pCO2 52 mmHg (32-45); ABG pH 7.51 (7.35-7.45); ABG pO2 73 mmHg (83-108)
[2022-11-21] MEDS: Albuterol Sulfate (0.083%) 2.5 MG/3 ML VIAL.NEB INHALE ×7 (00:55→23:39)
[2022-11-21 01:01] LABS: ABG Refer to POC result
[2022-11-21 04:45] LABS: VBG Base Excess 17.3 mmol/L; VBG HCO3 41 mmol/L (22-26); VBG pCO2 46 mmHg; VBG pH 7.56 (7.32-7.43); VBG pO2 76 mmHg
[2022-11-21 04:48] LABS: Venous Blood Gas Refer to POC result
[2022-11-21 04:49] LABS: MANUAL DIFF FLAG NO
[2022-11-21 04:53] LABS: Basophils Percent Auto 0.3 % (0-2); Hematocrit 35.9 % (37.0-47.0); Hemoglobin 11.2 g/dl (12.0-16.0); Imm Gran Abs Auto 0.03 X10*3/uL (0.00-0.03); Imm Gran Pct Auto 0.4 % (0.0-0.4); Lymphocytes Absolute Auto 1.5 X10*3/uL (1.2-4.9); Lymphocytes Percent Auto 18.3 % (20-40); Mean Corpuscular HGB Conc 31.2 g/dl (31.0-35.0); Mean Corpuscular Hemoglobin 28.3 pg (27.0-33.0); Mean Corpuscular Volume 90.7 fL (80.0-98.0); Mean Platelet Volume 9.8 fL (9.4-12.3); Monocytes Absolute Auto 0.7 X10*3/uL (0.1-1.2); Monocytes Percent Auto 9.1 % (2-11); Neutrophils Absolute Auto 5.7 x10*3/uL (2.0-8.3); Neutrophils Percent Auto 71.9 % (45-73); Platelet Count 210 X10*3/uL (160-400); Red Blood Count 3.96 X10*6/uL (4.20-5.50); Red Cell Distribution Width 13.6 % (11.0-16.0); White Blood Count 7.9 X10*3/uL (4.8-10.8)
[2022-11-21 05:21] LABS: Albumin Level 3.2 g/dL (3.5-5.0); Anion Gap 12 (12-20); Blood Urea Nitrogen 27 mg/dL (9-16); Carbon Dioxide 40 mmol/L (22-29); Chloride 96 mmol/L (96-108); Creatinine Clr Calc Pharmacy 111.2; Estimated Glomerular Filt Rate > 60; Glucose Random 190 mg/dL (60-115); Magnesium 1.8 mg/dL (1.6-2.6); Potassium 4.9 mmol/L (3.3-5.1); Sodium 143 mmol/L (135-145)
[2022-11-21] MEDS: Heparin Sodium,Porcine 5,000 UNIT/ML VIAL 5000 UNIT SUBCUT ×3 (06:05→20:41)
[2022-11-21] MEDS: Famotidine/PF 20 MG/2 ML VIAL IVPUSH ×2 (09:01→20:38)
[2022-11-21 09:22] LABS: ABG Base Excess 17.9 mmol/L; ABG HCO3 43 mmol/L (22-26); ABG pCO2 52 mmHg (32-45); ABG pH 7.52 (7.35-7.45); ABG pO2 67 mmHg (83-108)
--- NOTE | 2022-11-21 09:25 | PC.NURSE ---
Issue with pt's built in bed scale; inaccurate measurement at this time. Pt stated pt weighs 380 lbs (173kg); more estimated accuracy per staff; therefore documented pt's stated weight on EMR.
--- NOTE | 2022-11-21 10:12 | MHC.CLN ---
NUTRITION PATIENT WITH INCREASED NUTRITION NEEDS TO TO WOUNDS, STAGE II TO LEFT BUTTOCK AND DTI TO RIGHT HEEL. DIET=DIABETIC 2200 KCAL. ADDING 2 G SODIUM DUE TO HX CHF. ADDING ENSURE MAX PROTEIN BID (300 KCALS, 60 G PROTEIN) TO PROMOTE WOUND HEALING. FOLLOW FOR INTAKE AND WOUND HEALING.
--- NOTE | 2022-11-21 10:27 | P.PNCC_ITS ---
Subjective Subjective Date of Service: 11/21/22 Interval History: 61-year-old morbidly obese type 2 diabetic with the chronic lung disease based on obesity and hypoventilation as well as obstructive sleep apnea and depends on nocturnal BiPAP which she is poorly compliant with and is admitted with 1 of many exacerbations the and this time it is a multilobar pneumonia creating a an ongoing need for BiPAP support Today thus far after 2 hours of nasal high-flow at 50 liters/minute her pCO2 is preserved at 52 and were going to initiate a diet Critical Care Time (minutes): 35 Physical Exam Vital Signs: Vital Signs: Last Vital Signs Temp 99.5 F 11/21/22 10:00 Pulse 73 11/21/22 10:00 Resp 28 H 11/21/22 10:00 BP 172/70 H 11/21/22 10:00 Pulse Ox 89 L 11/21/22 10:00 O2 Del Method 11/21/22 10:00 O2 Flow Rate 50 11/21/22 10:00 FiO2 40 11/21/22 10:00 Oxygen Flow Rate 4 11/20/22 00:24 BMI result Body Mass Index 54.7 Awake alert and oriented Nonfocal neurologically Bedside echo defining LV function with moderate reduction of systolic reserve largely on the basis of left bundle branch block induced septal paradox Diminished bilateral breath sounds but no adventitious sounds no diaphragmatic or accessory muscle effort Abdomen benign with no organomegaly Objective Data Labs 11/21/22 04:35 11/21/22 04:35 Labs: Laboratory Results - last 24 hr 11/20/22 11/20/22 11/20/22 06:40 13:26 13:40 WBC RBC Hgb Hct MCV MCH MCHC RDW Plt Count MPV Immature Gran % (Auto) Neut % (Auto) Lymph % (Auto) [place] % (Auto) Eos % (Auto) Baso % (Auto) Lymph # (Auto) [place] # (Auto) Eos # (Auto) Baso # (Auto) Abs Immat Gran (auto) Absolute Neuts (auto) Absolute Nucleated RBC Nucleated RBC % (auto) O2 Saturation Cancelled 90.0 ABG pH at Pt Temp Cancelled 7.42 ABG pH (Temp Correct) Cancelled ABG pCO2 at Pt Temp Cancelled 76 H* ABG pCO2 (Temp Corrct Cancelled ABG pO2 at Pt Temp Cancelled 61 L ABG pO2 (Temp Correct Cancelled ABG HCO3 Cancelled 50 H ABG Base Excess (Actual) Cancelled 21.2 VBG pH VBG pCO2 VBG pO2 VBG HCO3 VBG O2 Saturation VBG Base Excess Sodium Potassium Chloride Carbon Dioxide Anion Gap BUN Creatinine Estim Creat Clear Calc Estimated GFR POC Glucose Random Glucose Lactic Acid 0.6 Calcium Phosphorus Magnesium Albumin Urine Color Urine Appearance Urine pH Ur Specific [place] Urine Protein Urine Glucose (UA) Urine Ketones Urine Blood Urine Nitrite Ur Leukocyte Esterase Urine RBC Urine WBC Ur Squamous Epith Cells Urine Bacteria Hyaline Casts 11/20/22 11/20/22 11/20/22 15:26 16:29 16:44 WBC RBC Hgb Hct MCV MCH MCHC RDW Plt Count MPV Immature Gran % (Auto) Neut % (Auto) Lymph % (Auto) [place] % (Auto) Eos % (Auto) Baso % (Auto) Lymph # (Auto) [place] # (Auto) Eos # (Auto) Baso # (Auto) Abs Immat Gran (auto) Absolute Neuts (auto) Absolute Nucleated RBC Nucleated RBC % (auto) O2 Saturation ABG pH at Pt Temp ABG pH (Temp Correct) ABG pCO2 at Pt Temp ABG pCO2 (Temp Corrct ABG pO2 at Pt Temp ABG pO2 (Temp Correct ABG HCO3 ABG Base Excess (Actual) VBG pH VBG pCO2 VBG pO2 VBG HCO3 VBG O2 Saturation VBG Base Excess Sodium Potassium Chloride Carbon Dioxide Anion Gap BUN Creatinine Estim Creat Clear Calc Estimated GFR POC Glucose 214 H 219 H Random Glucose Lactic Acid Calcium Phosphorus Magnesium Albumin Urine Color Yellow Urine Appearance Clear Urine pH 8.0 Ur Specific [place] 1.025 Urine Protein 30 (1+) H Urine Glucose (UA) 500 H Urine Ketones Trace Urine Blood Negative Urine Nitrite Positive H Ur Leukocyte Esterase Trace H Urine RBC 0-2 Urine WBC 11-20 H Ur Squamous Epith Cells 0-2 Urine Bacteria 4+ Hyaline Casts 0-2 11/20/22 11/20/22 11/21/22 18:38 23:40 00:21 WBC RBC Hgb Hct MCV MCH MCHC RDW Plt Count MPV Immature Gran % (Auto) Neut % (Auto) Lymph % (Auto) [place] % (Auto) Eos % (Auto) Baso % (Auto) Lymph # (Auto) [place] # (Auto) Eos # (Auto) Baso # (Auto) Abs Immat Gran (auto) Absolute Neuts (auto) Absolute Nucleated RBC Nucleated RBC % (auto) O2 Saturation ABG pH at Pt Temp ABG pH (Temp Correct) ABG pCO2 at Pt Temp ABG pCO2 (Temp Corrct ABG pO2 at Pt Temp ABG pO2 (Temp Correct ABG HCO3 ABG Base Excess (Actual) VBG pH 7.57 H VBG pCO2 43 VBG pO2 94 VBG HCO3 40 H VBG O2 Saturation 99.0 VBG Base Excess 16.4 Sodium Potassium Chloride Carbon Dioxide Anion Gap BUN Creatinine Estim Creat Clear Calc Estimated GFR POC Glucose 231 H 230 H Random Glucose Lactic Acid Calcium Phosphorus Magnesium Albumin Urine Color Urine Appearance Urine pH Ur Specific [place] Urine Protein Urine Glucose (UA) Urine Ketones Urine Blood Urine Nitrite Ur Leukocyte Esterase Urine RBC Urine WBC Ur Squamous Epith Cells Urine Bacteria Hyaline Casts 11/21/22 11/21/22 11/21/22 00:46 04:35 04:35 WBC 7.9 RBC 3.96 L Hgb 11.2 L Hct 35.9 L MCV 90.7 D MCH 28.3 MCHC 31.2 RDW 13.6 Plt Count 210 MPV 9.8 Immature Gran % (Auto) 0.4 Neut % (Auto) 71.9 Lymph % (Auto) 18.3 L [place] % (Auto) 9.1 Eos % (Auto) 0.0 Baso % (Auto) 0.3 Lymph # (Auto) 1.5 [place] # (Auto) 0.7 Eos # (Auto) 0.0 Baso # (Auto) 0.0 Abs Immat Gran (auto) 0.03 Absolute Neuts (auto) 5.7 Absolute Nucleated RBC 0.000 Nucleated RBC % (auto) 0.0 O2 Saturation 94.0 ABG pH at Pt Temp 7.51 H ABG pH (Temp Correct) ABG pCO2 at Pt Temp 52 H ABG pCO2 (Temp Corrct ABG pO2 at Pt Temp 73 L ABG pO2 (Temp Correct ABG HCO3 42 H ABG Base Excess (Actual) 17.0 VBG pH VBG pCO2 VBG pO2 VBG HCO3 VBG O2 Saturation VBG Base Excess Sodium 143 Potassium 4.9 Chloride 96 Carbon Dioxide 40 H* Anion Gap 12 BUN 27 H Creatinine 0.92 Estim Creat Clear Calc 111.2 Estimated GFR > 60 POC Glucose Random Glucose 190 H Lactic Acid Calcium 9.0 Phosphorus 3.0 Magnesium 1.8 Albumin 3.2 L Urine Color Urine Appearance Urine pH Ur Specific [place] Urine Protein Urine Glucose (UA) Urine Ketones Urine Blood Urine Nitrite Ur Leukocyte Esterase Urine RBC Urine WBC Ur Squamous Epith Cells Urine Bacteria Hyaline Casts 11/21/22 11/21/22 04:37 09:13 WBC RBC Hgb Hct MCV MCH MCHC RDW Plt Count MPV Immature Gran % (Auto) Neut % (Auto) Lymph % (Auto) [place] % (Auto) Eos % (Auto) Baso % (Auto) Lymph # (Auto) [place] # (Auto) Eos # (Auto) Baso # (Auto) Abs Immat Gran (auto) Absolute Neuts (auto) Absolute Nucleated RBC Nucleated RBC % (auto) O2 Saturation 92.0 ABG pH at Pt Temp 7.52 H ABG pH (Temp Correct) ABG pCO2 at Pt Temp 52 H ABG pCO2 (Temp Corrct ABG pO2 at Pt Temp 67 L ABG pO2 (Temp Correct ABG HCO3 43 H ABG Base Excess (Actual) 17.9 VBG pH 7.56 H VBG pCO2 46 VBG pO2 76 VBG HCO3 41 H VBG O2 Saturation 96.0 VBG Base Excess 17.3 Sodium Potassium Chloride Carbon Dioxide Anion Gap BUN Creatinine Estim Creat Clear Calc Estimated GFR POC Glucose Random Glucose Lactic Acid Calcium Phosphorus Magnesium Albumin Urine Color Urine Appearance Urine pH Ur Specific [place] Urine Protein Urine Glucose (UA) Urine Ketones Urine Blood Urine Nitrite Ur Leukocyte Esterase Urine RBC Urine WBC Ur Squamous Epith Cells Urine Bacteria Hyaline Casts Microbiology Microbiology Results: Microbiology 11/20/22 13:26 Blood - Venous Blood Culture - Preliminary Prelim: GPC Gram Stain only Progress Note: A&P Assessment and plan (1) Nosocomial pneumonia: Status: Acute (2) Hypertrophic nonobstructive cardiomyopathy: Status: Acute (3) Presence of permanent cardiac pacemaker: Status: Acute (4) Acute on chronic respiratory failure with hypoxia and hypercapnia: Status: Acute (5) Acute and chronic respiratory failure with hypercapnia: Status: Acute (6) Metabolic encephalopathy: Status: Acute (7) Morbid obesity: Status: Acute (8) Heart block AV third degree: Status: Acute (9) PAD (peripheral artery disease): Status: Acute Plan Plan is to continue antibiotics as above for nosocomial pneumonia and the round the clock aggressive bronchodilator therapy and once she no longer depends on the BiPAP daytime weakened transfer to the floor to complete her treatment Quality Stroke Does the patient have a stroke diagnosis?: No VTE Prior VTE?: No VTE Risk Level:: Medical - moderate - high VTE Device Contraindication: N/A - Device Ordered VTE Drug Contraindication: N/A - Med Ordered
[2022-11-21 12:25] LABS: Glucose, Whole Blood 144 mg/dL (60-115)
[2022-11-21] MEDS: cefEPime HCl 1 GM in 0.9 % Sodium Chloride 50 ML IV ×2 (12:38→23:36)
--- NOTE | 2022-11-21 13:33 | MHC.CM.PN ---
Pt well known to CM from past admissions: presently in ICU on NIPPV with hypercapnic respiratory failure. Information obtained from EMR and phone conversation w/spouse, Miah. Pt has been residing at [facility] for close to a year without definite plans to return to home as she continues to be hospitalized intermittenly. Pt requires physical assistance to complete ADL's but is able to feed self and is A&O x4. MOLST on file and verified w/spouse. Pt will need BLS transport to facility when medically stable. Re-referred to [facility]. CM to follow.
[2022-11-21] MEDS: levoFLOXacin/D5W 750 MG/150 ML PIGGYBACK 100 MG IV (13:50)
--- NOTE | 2022-11-21 14:45 | PC.NURSE ---
Pt continues to be off BIPP, on HFNC at 50L 40%, tolerating and satting at goals- 88-92%. Pt had a 30 second SVT in the 150s-160s, denied any Chest pain or palpitations, MD aware with no new orders. Pt's preliminary BC back + for Gram Positive Cocci, started on IV Cefepime per order. Pt started on Diabetic diet, tolerating. Pt's frausto in place, draining clear yellow urine, UO of 40-70cc/hr. Dressing to L buttock changed as needed d/t stooling, minimal bloody drainage. Pt otherwise resting with no acute distress. Repositioned every 2 hrs and as needed, prevalon system and wedges utilized. correction called for update, family visiting at bedside, all questions answered. Report given to NILDA Alexander who will continue with plan of care.
[2022-11-21 16:28] LABS: Glucose, Whole Blood 200 mg/dL (60-115)
[2022-11-21 20:12] LABS: VBG Base Excess 11.2 mmol/L; VBG HCO3 36 mmol/L (22-26); VBG pCO2 47 mmHg; VBG pH 7.48 (7.32-7.43); VBG pO2 44 mmHg
[2022-11-21 20:44] LABS: Glucose, Whole Blood 192 mg/dL (60-115)
--- NOTE | 2022-11-21 20:53 | W.PM.IDCN ---
History of Present Illness Data of Consult Service Date: 11/21/22 Requesting physician: Cj Salazar Primary Care Provider: Darlene Bal MD HPI Reason for consult: encephalopathy,bacteriuria She presents with lethargy and hypoxia from facility. She has gram negative rods 3/8 in urine and pyuria as well. She was started on Levaquin and Cefepime. She has history of Cdiff in early 2021. She was reported to have right TKA infected and treated with snf antibiotics and recurrent cellulitis. Review of Systems Review of Systems: Yes Unobtainable due to mental condition [facility] Past Medical History Medical History Acute and chronic respiratory failure with hypercapnia Anemia Arthritis Atelectasis of both lungs CHF (congestive heart failure) Clostridium difficile infection Depression Diabetes mellitus, type 2 Diabetic ulcer of foot associated with diabetes mellitus due to underlying condition, with fat layer exposed Hypertension Hypoventilation associated with obesity syndrome Morbid obesity Morbid obesity Obesity hypoventilation syndrome SMILEY (obstructive sleep apnea) Presence of permanent cardiac pacemaker Pulmonary embolism Respiratory failure Respiratory failure with hypoxia and hypercapnia Sick sinus syndrome Urinary tract infection due to ESBL Klebsiella Family History Family history: reviewed and not pertinent Surgical History Surgical History History of total knee replacement Social History Social History Household Members: Spouse Housing: House Housing Other:: rehab facility Are you a primary manager progressive care to a significant other at home: No Do you presently have visiting nurse or other home services: No (needs to go through the program of starting them up) Unable to assess alcohol history related to: Unknown Alcohol intake: never Patient Tobacco Use Status: Former Tobacco user Quit Date: 1999 Tobacco use type: Cigarette Cigarette Packs Per Day: 20 Cigarettes Per Day: 400.0 Years Smoked: 20 Smoked in Last 30 Days: No e-Cigarette/Vaping Use: Never Used Patient Interested in Nicotine Replacement: No Patient Given Instructions on How to Stop Smoking: No Second Hand Smoke Exposure: No Use of substances other than those prescribed or required for medical reasons: No Substance Use Type: Unknown Currently Displaying Signs/Symptoms of Drug Intoxication Withdrawal: No Have you been hit, kicked, punched, or otherwise hurt by someone within the past year? If so, by whom?: No Do you feel safe in your current relationship?: No Is there a partner from a previous relationship who is making you feel unsafe now?: No Are you made to feel afraid or neglected: No Spiritual Healthcare Practices: N/A Alevism Healthcare Practices: N/A Cultural Healthcare Practices: N/A Advance Directives: No Advance Directives Information Provided: Yes Advance Directives on File: No Do you have thoughts of harming others: None Do you have a plan to hurt others: No Plan Recently lost weight without trying: No Eating poorly because of decreased appetite: No Nutrition Risks: No Nutritional Risk and Dental problems Patient : No : No Poor oral hygiene: Yes (Patient trying to get to dentist, reports dental problems) service: No Current occupational status: disabled Meds Allergies Allergy/AdvReac Type Severity Reaction Status Date / Time latex Allergy Unknown Unknown Verified 10/21/22 13:48 adhesive tape AdvReac Unknown Unknown Verified 10/21/22 13:48 bupropion [From Wellbutrin] AdvReac Unknown Unknown Verified 10/21/22 13:48 ibuprofen AdvReac Unknown Unknown Verified 10/21/22 13:48 Active Medications: Current Medications Albuterol Sulfate (Albuterol Sulfate (0.083%) 2.5 Mg/3 Ml Vial.Neb) 2.5 mg INHALE RQ4H [facility] Last Admin: 11/21/22 19:21 Dose: 2.5 mg Famotidine (Famotidine/Pf 20 Mg/2 Ml Vial) 20 mg IVPUSH BID [facility] Last Admin: 11/21/22 20:38 Dose: 20 mg Glucose (Glucose Gel 15 Gm Gel..Gram.) 15 gm PO Q15M PRN; Protocol PRN Reason: per Hypoglycemia Standing Ord. Heparin Sodium (Porcine) (Heparin Sodium,Porcine 5,000 Unit/Ml Vial) 5,000 unit SUBCUT Q8H [facility] Last Admin: 11/21/22 20:41 Dose: 5,000 unit Levofloxacin (Levaquin) 750 mg in 150 mls @ 100 mls/hr IV Q24H [facility] Last Infusion: 11/21/22 15:25 Dose: Infused Dextrose (D10) 250 mls @ 750 mls/hr IV Q15M PRN; Protocol PRN Reason: per Hypoglycemia Standing Ord. Cefepime HCl 1 gm/ Sodium (Chloride) 50 mls @ 100 mls/hr IV Q12H [facility] Last Infusion: 11/21/22 13:10 Dose: Infused Home Medications Medication Instructions Recorded Confirmed Last Taken Type acetaminophen 325 mg tablet 650 mg PO Q4H PRN Fever Or Pain 11/18/21 11/20/22 Unknown History atorvastatin 80 mg tablet 80 mg PO BEDTIME 11/18/21 11/20/22 Unknown History enalapril maleate 20 mg tablet 20 mg PO DAILY 11/18/21 11/20/22 Unknown History ferrous sulfate 325 mg (65 mg 325 mg PO DAILY 11/18/21 11/20/22 Unknown History iron) tablet gabapentin 300 mg capsule 300 mg PO DAILY@1200 11/18/21 11/20/22 Unknown History gabapentin 300 mg capsule 600 mg PO BID 11/18/21 11/20/22 Unknown History insulin lispro 100 unit/mL See Protocol subcut QIDACHS 11/18/21 11/20/22 Unknown History subcutaneous pen melatonin 3 mg tablet 3 mg PO BEDTIME 11/18/21 11/20/22 Unknown History polyethylene glycol 3350 17 gram 17 g PO DAILY PRN Constipation 11/18/21 11/20/22 Unknown History oral powder packet (Miralax) sennosides 8.6 mg tablet (senna) 16.2 mg PO DAILY PRN Constipation 11/18/21 11/20/22 Unknown History sertraline 100 mg tablet 200 mg PO DAILY 11/18/21 11/20/22 Unknown History tizanidine 4 mg tablet 4 mg PO BEDTIME PRN Muscle Spasm 11/18/21 11/20/22 Unknown History aspirin 81 mg chewable tablet 81 mg PO DAILY 01/05/22 11/20/22 Unknown History megestrol 400 mg/10 mL (10 mL) 400 mg PO TID 01/05/22 11/20/22 Unknown History oral suspension bupropion HCl 300 mg 24 hr tablet, 300 mg PO DAILY 04/09/22 11/20/22 Unknown History extended release insulin lispro 100 unit/mL 5 unit subcut TIDAC 04/09/22 11/20/22 Unknown History subcutaneous solution Lactobacillus rhamnosus GG 10 1 cap PO BID 10/09/22 11/20/22 Unknown History billion cell capsule (Culturelle) bupropion HCl 150 mg 24 hr tablet, 1 tab PO DAILY 10/09/22 11/20/22 Unknown History extended release ipratropium 0.5 mg-albuterol 3 mg 3 ml inhalation TID 10/09/22 11/20/22 Unknown History (2.5 mg base)/3 mL nebulization soln potassium chloride 10 mEq 10 meq PO DAILY 10/09/22 11/20/22 Unknown History tablet,extended release bisacodyl 10 mg rectal suppository 10 mg ID DAILY PRN Constipation 10/21/22 11/20/22 Unknown History magnesium citrate (Citrate of 150 ml PO DAILY PRN Constipation 10/21/22 11/20/22 Unknown History Magnesia oral) fluticasone 113 mcg-salmeterol 14 1 inh inhalation DAILY 11/09/22 11/20/22 Unknown History mcg/actuation breath activated powdr (AirDuo RespiClick) insulin glargine 100 unit/mL 52 unit subcut DAILY 11/09/22 11/20/22 Unknown History subcutaneous solution magnesium hydroxide 400 mg/5 mL 30 ml PO DAILY PRN Constipation 11/09/22 11/20/22 Unknown History oral suspension (Milk of Magnesia) sodium phosphates 19 gram-7 118 ml ID DAILY PRN Constipation 11/09/22 11/20/22 Unknown History gram/118 mL enema (Fleet Enema) Physical Exam Vital Signs: Vital Signs: Last Vital Signs Temp 99.5 F 11/21/22 20:09 Pulse 83 11/21/22 20:09 Resp 21 H 11/21/22 20:09 BP 177/90 H 11/21/22 20:09 Pulse Ox 93 11/21/22 20:09 O2 Del Method 11/21/22 20:09 O2 Flow Rate 50 11/21/22 20:09 FiO2 40 11/21/22 20:09 Oxygen Flow Rate 4 11/20/22 00:24 BMI result Body Mass Index 54.7 Const: General: cooperative HEENT: Head: Yes normal to inspection Face and sinus: Yes normal facial exam Mouth: Normal oral and palatal mucosa present Teeth and gingiva: dentition normal Eyes: General: appearance normal, both eyes and all related structures Pupils: Equal, round and reactive pupils present Resp: Effort & Inspection: normal respiratory effort Cardio: Rate: regular rate Rhythm: regular rhythm GI: Palpation (GI): Soft to palpation and nontender : General: Yes no CVA tenderness Back/Spine/Pelvis: Back: no CVA tenderness Skin: General skin exam: no rashes or lesions noted Neuro: General: moves all extremities Cranial nerves: Yes Equal, round and reactive pupils present Extrem: Other: somnolent Psych: Appearance: grossly normal Results Labs 11/21/22 04:35 11/21/22 04:35 Labs: Short CBC 11/21/22 Range/Units 04:35 WBC 7.9 (4.8-10.8) X10*3/uL Hgb 11.2 L (12.0-16.0) g/dl Hct 35.9 L (37.0-47.0) % Plt Count 210 (160-400) X10*3/uL BMP 11/21/22 04:35 Sodium 143 Potassium 4.9 Chloride 96 Carbon Dioxide 40 H* BUN 27 H Creatinine 0.92 Calcium 9.0 Liver Function 11/21/22 Range/Units 04:35 Albumin 3.2 L (3.5-5.0) g/dL Microbiology Microbiology Results: Microbiology 11/20/22 13:26 Blood - Venous Blood Culture - Preliminary Prelim: GPC Gram Stain only 11/20/22 13:50 Blood - Venous Blood Culture - Preliminary No growth after 24 hours. 11/20/22 Unknown Urine Catheterized - Sood Catheter Urine Culture - Preliminary Gram negative nataly Assessment and Plan (1) Nosocomial pneumonia: Status: Acute She has left lung and right upper lobe pneumonia. She has gram positive cocci 11/20 09/16 which may be contaminant. She also has gram negative rods in urine which may be colonized so it will be difficult to find out what is contributory. Cefepime and Levaquin are duplicative and patient has risk of Cdiff with quinolone (2) Metabolic encephalopathy: Status: Acute Plan Switch to Doxycycline for atypical coverage. Check nares MRSA and urine Legionella. Stop Levaquin Continue Cefepime Probably 8 days IV antibiotics po Vancomycin consider help prevent Cdiff Time Spent With Patient Time: Total time managing care of this patient today ____ minutes.
[2022-11-21] MEDS: Doxycycline Hyclate 100 MG in 0.9 % Sodium Chloride 250 ML 166.67 MG IV (21:52)
[2022-11-21 23:51] LABS: Venous Blood Gas Refer to POC result
[2022-11-22] VITALS (20 sets, daily range): BP systolic 158–182; BP diastolic 72–101; PULSE 64–94; RESP 15–26; TEMP 36.1–37.5; O2SAT 88–98
[2022-11-22 04:00] LABS: ABG Refer to POC result
[2022-11-22] MEDS: Albuterol Sulfate (0.083%) 2.5 MG/3 ML VIAL.NEB INHALE ×6 (04:25→23:54)
[2022-11-22 04:58] LABS: VBG Base Excess 8.5 mmol/L; VBG HCO3 31 mmol/L (22-26); VBG pCO2 37 mmHg; VBG pH 7.53 (7.32-7.43); VBG pO2 79 mmHg
[2022-11-22 05:05] LABS: MANUAL DIFF FLAG NO
[2022-11-22 05:07] LABS: Venous Blood Gas Refer to POC result
[2022-11-22 05:09] LABS: Basophils Percent Auto 0.4 % (0-2); Eosinophils Absolute Auto 0.1 X10*3/uL (0.0-0.4); Hemoglobin 11.8 g/dl (12.0-16.0); Imm Gran Abs Auto 0.02 X10*3/uL (0.00-0.03); Imm Gran Pct Auto 0.2 % (0.0-0.4); Lymphocytes Percent Auto 24.9 % (20-40); Mean Corpuscular HGB Conc 31.9 g/dl (31.0-35.0); Mean Corpuscular Hemoglobin 28.5 pg (27.0-33.0); Mean Corpuscular Volume 89.4 fL (80.0-98.0); Mean Platelet Volume 9.8 fL (9.4-12.3); Monocytes Absolute Auto 0.7 X10*3/uL (0.1-1.2); Monocytes Percent Auto 8.1 % (2-11); Neutrophils Absolute Auto 5.3 x10*3/uL (2.0-8.3); Neutrophils Percent Auto 65.4 % (45-73); Platelet Count 195 X10*3/uL (160-400); Red Blood Count 4.14 X10*6/uL (4.20-5.50); Red Cell Distribution Width 14.1 % (11.0-16.0); White Blood Count 8.1 X10*3/uL (4.8-10.8)
[2022-11-22 05:30] LABS: Albumin Level 3.2 g/dL (3.5-5.0); Anion Gap 12 (12-20); Blood Urea Nitrogen 27 mg/dL (9-16); Calcium 8.6 mg/dL (8.4-10.2); Carbon Dioxide 32 mmol/L (22-29); Chloride 99 mmol/L (96-108); Creatinine Clr Calc Pharmacy 109.1; Estimated Glomerular Filt Rate > 60; Glucose Random 162 mg/dL (60-115); Magnesium 1.7 mg/dL (1.6-2.6); Potassium 4.2 mmol/L (3.3-5.1); Sodium 139 mmol/L (135-145)
[2022-11-22] MEDS: Heparin Sodium,Porcine 5,000 UNIT/ML VIAL 5000 UNIT SUBCUT ×3 (06:08→21:43)
--- NOTE | 2022-11-22 06:42 | P.PNCC_ITS ---
Subjective Subjective Date of Service: 11/22/22 Interval History: 61-year-old morbidly obese type 2 diabetic longstanding COPD and obesity/hypoventilation and obstructive sleep apnea etc. comes in very frequently because of noncompliance with her CPAP device and once again COPD exacerbation multilobar pneumonia and infiltrates could clearly present now that were not there about a month ago when she was having her last CT scan and she has got concentric left ventricular hypertrophy of probable hypertrophic myopathy with normal systolic but diminished diastolic reserve and I gave her 1 IV dose of acetazolamide and with with aggressive bronchodilator therapy and the 1st 24 hours on continuous BiPAP she literally spent the whole day having her 3 meals yesterday and remaining on nasal high-flow at 50 liters/minute maintaining a pCO2 that is in the low 50s and her norm would be between 60 and 70 ordinarily so she did very well and at this point of course ready [facility] I treated her initially with just with Levaquin with 1 synergistic dose of meropenem and we were going to use either cefepime or Levaquin but I felt that the the coverage is more brought with the Levaquin and Infectious Disease added doxycycline to the regimen as well Critical Care Time (minutes): 35 Physical Exam Vital Signs: Vital Signs: Last Vital Signs Temp 99.5 F 11/22/22 06:00 Pulse 70 11/22/22 06:00 Resp 21 H 11/22/22 06:00 BP 162/89 H 11/22/22 06:00 Pulse Ox 90 L 11/22/22 06:00 O2 Del Method 11/22/22 06:00 O2 Flow Rate 40 11/22/22 04:00 FiO2 40 11/22/22 06:00 Oxygen Flow Rate 4 11/20/22 00:24 BMI result Body Mass Index 54.7 And alert an oriented absolutely no distress no accessory muscle a diaphragmatic effort Bedside echo with concentric left ventricular hypertrophy no primary valve or pericardial disease in globally normal systolic wall motion Abdomen obese but no organomegaly nontender Diminished bilateral breath sounds Objective Data Labs 11/22/22 04:45 11/22/22 04:45 Labs: Laboratory Results - last 24 hr 11/21/22 11/21/22 11/21/22 09:13 12:18 16:24 WBC RBC Hgb Hct MCV MCH MCHC RDW Plt Count MPV Immature Gran % (Auto) Neut % (Auto) Lymph % (Auto) Clinch % (Auto) Eos % (Auto) Baso % (Auto) Lymph # (Auto) Clinch # (Auto) Eos # (Auto) Baso # (Auto) Abs Immat Gran (auto) Absolute Neuts (auto) Absolute Nucleated RBC Nucleated RBC % (auto) O2 Saturation 92.0 ABG pH at Pt Temp 7.52 H ABG pCO2 at Pt Temp 52 H ABG pO2 at Pt Temp 67 L ABG HCO3 43 H ABG Base Excess (Actual) 17.9 VBG pH VBG pCO2 VBG pO2 VBG HCO3 VBG O2 Saturation VBG Base Excess Sodium Potassium Chloride Carbon Dioxide Anion Gap BUN Creatinine Estim Creat Clear Calc Estimated GFR POC Glucose 144 H 200 H Random Glucose Calcium Phosphorus Magnesium Albumin 11/21/22 11/21/22 11/22/22 20:02 20:40 04:45 WBC 8.1 RBC 4.14 L Hgb 11.8 L Hct 37.0 MCV 89.4 MCH 28.5 MCHC 31.9 RDW 14.1 Plt Count 195 MPV 9.8 Immature Gran % (Auto) 0.2 Neut % (Auto) 65.4 Lymph % (Auto) 24.9 Clinch % (Auto) 8.1 Eos % (Auto) 1.0 Baso % (Auto) 0.4 Lymph # (Auto) 2.0 Clinch # (Auto) 0.7 Eos # (Auto) 0.1 Baso # (Auto) 0.0 Abs Immat Gran (auto) 0.02 Absolute Neuts (auto) 5.3 Absolute Nucleated RBC 0.000 Nucleated RBC % (auto) 0.0 O2 Saturation ABG pH at Pt Temp ABG pCO2 at Pt Temp ABG pO2 at Pt Temp ABG HCO3 ABG Base Excess (Actual) VBG pH 7.48 H VBG pCO2 47 VBG pO2 44 VBG HCO3 36 H VBG O2 Saturation 68.0 VBG Base Excess 11.2 Sodium Potassium Chloride Carbon Dioxide Anion Gap BUN Creatinine Estim Creat Clear Calc Estimated GFR POC Glucose 192 H Random Glucose Calcium Phosphorus Magnesium Albumin 11/22/22 11/22/22 04:45 04:50 WBC RBC Hgb Hct MCV MCH MCHC RDW Plt Count MPV Immature Gran % (Auto) Neut % (Auto) Lymph % (Auto) Clinch % (Auto) Eos % (Auto) Baso % (Auto) Lymph # (Auto) Clinch # (Auto) Eos # (Auto) Baso # (Auto) Abs Immat Gran (auto) Absolute Neuts (auto) Absolute Nucleated RBC Nucleated RBC % (auto) O2 Saturation ABG pH at Pt Temp ABG pCO2 at Pt Temp ABG pO2 at Pt Temp ABG HCO3 ABG Base Excess (Actual) VBG pH 7.53 H VBG pCO2 37 VBG pO2 79 VBG HCO3 31 H VBG O2 Saturation 97.0 VBG Base Excess 8.5 Sodium 139 Potassium 4.2 Chloride 99 Carbon Dioxide 32 H Anion Gap 12 BUN 27 H Creatinine 0.93 Estim Creat Clear Calc 109.1 Estimated GFR > 60 POC Glucose Random Glucose 162 H Calcium 8.6 Phosphorus 3.0 Magnesium 1.7 Albumin 3.2 L Microbiology Microbiology Results: Microbiology 11/20/22 13:26 Blood - Venous Blood Culture - Preliminary Prelim: GPC Gram Stain only 11/20/22 13:50 Blood - Venous Blood Culture - Preliminary No growth after 24 hours. 11/20/22 Unknown Urine Catheterized - Sood Catheter Urine Culture - Preliminary Gram negative nataly Progress Note: A&P Assessment and plan (1) Nosocomial pneumonia: Status: Acute (2) Hypertrophic nonobstructive cardiomyopathy: Status: Acute (3) Presence of permanent cardiac pacemaker: Status: Acute (4) Acute on chronic respiratory failure with hypoxia and hypercapnia: Status: Acute (5) Acute and chronic respiratory failure with hypercapnia: Status: Acute (6) Metabolic encephalopathy: Status: Acute (7) Morbid obesity: Status: Acute (8) Heart block AV third degree: Status: Acute (9) PAD (peripheral artery disease): Status: Acute Plan So her COPD exacerbation clearly on the mend tolerating high-flow which can now probably begin the weaning process on and her chronic regimen should be restored in other words with the nocturnal resting on on BiPAP which she tolerates beautifully and personally I am going to maintain the Levaquin and doxycycline Quality Stroke Does the patient have a stroke diagnosis?: No VTE Prior VTE?: No VTE Risk Level:: Medical - moderate - high VTE Device Contraindication: N/A - Device Ordered VTE Drug Contraindication: N/A - Med Ordered
[2022-11-22 07:25] LABS: Glucose, Whole Blood 148 mg/dL (60-115)
[2022-11-22] MEDS: Famotidine/PF 20 MG/2 ML VIAL IVPUSH ×2 (08:55→21:43)
--- NOTE | 2022-11-22 10:52 | MHC.CLN ---
F/U TRANSFER FROM ICU TO C TODAY. PATIENT WITH INCREASED NUTRITION NEEDS TO TO WOUNDS, STAGE II TO LEFT BUTTOCK AND DTI TO RIGHT HEEL. DIET=DIABETIC 2200 KCAL, 2 G SODIUM. ENSURE MAX PROTEIN BID (300 KCALS, 60 G PROTEIN) TO PROMOTE WOUND HEALING. FOLLOW FOR INTAKE AND WOUND HEALING.
[2022-11-22] MEDS: levoFLOXacin/D5W 750 MG/150 ML PIGGYBACK 100 MG IV (11:00)
[2022-11-22 11:50] LABS: Glucose, Whole Blood 229 mg/dL (60-115)
[2022-11-22] MEDS: Doxycycline Hyclate 100 MG in 0.9 % Sodium Chloride 250 ML 166.67 MG IV (13:50)
[2022-11-22 16:11] LABS: Glucose, Whole Blood 169 mg/dL (60-115)
--- NOTE | 2022-11-22 17:41 | PC.RT ---
Pt transitioned to siegel cannula @ 7 lpm on humidified O2 from HFNC. RN aware, HFNC at bedside. Pt caleb well, in no distress.
--- NOTE | 2022-11-22 17:47 | HO.WOUNDCONS ---
History of Present Illness Data of Consult Service Date: 11/22/22 Requesting physician: Alejandro Bacon Primary Care Provider: Darlene Bal MD [facility] Reason for consult: Pressure injury buttocks and right heel This is a 61-year-old female with a history of chronic respiratory failure admitted with acute respiratory failure, pneumonia. Past history is also significant for morbid obesity, type 2 diabetes mellitus and obstructive sleep apnea. She was noted on examination to have areas of skin discoloration on the bilateral buttocks with some breakdown and also a wound of the right heel. She has no complaints of pain. She is feeling more comfortable from a respiratory standpoint. Currently, she is on a standard bariatric bed with frame but transfer to a low air loss mattress is planned later today. Review of Systems Constitutional: Constitutional: Denies chills and Denies fever(s) Cardiovascular: Cardiovascular: Denies chest pain and Reports dyspnea (Improving) Respiratory: Respiratory: Reports dyspnea (Improving) [facility] Medical History Acute and chronic respiratory failure with hypercapnia Anemia Arthritis Atelectasis of both lungs CHF (congestive heart failure) Clostridium difficile infection Depression Diabetes mellitus, type 2 Diabetic ulcer of foot associated with diabetes mellitus due to underlying condition, with fat layer exposed Hypertension Hypoventilation associated with obesity syndrome Morbid obesity Morbid obesity Obesity hypoventilation syndrome SMILEY (obstructive sleep apnea) Presence of permanent cardiac pacemaker Pulmonary embolism Respiratory failure Respiratory failure with hypoxia and hypercapnia Sick sinus syndrome Urinary tract infection due to ESBL Klebsiella Surgical History History of total knee replacement Social History Household Members: Spouse Housing: House Housing Other:: rehab facility Are you a primary continuum of care manager to a significant other at home: No Do you presently have visiting nurse or other home services: No (needs to go through the program of starting them up) Unable to assess alcohol history related to: Unknown Alcohol intake: never Patient Tobacco Use Status: Former Tobacco user Quit Date: 1999 Tobacco use type: Cigarette Cigarette Packs Per Day: 20 Cigarettes Per Day: 400.0 Years Smoked: 20 Smoked in Last 30 Days: No e-Cigarette/Vaping Use: Never Used Patient Interested in Nicotine Replacement: No Patient Given Instructions on How to Stop Smoking: No Second Hand Smoke Exposure: No Use of substances other than those prescribed or required for medical reasons: No Substance Use Type: Unknown Currently Displaying Signs/Symptoms of Drug Intoxication Withdrawal: No Have you been hit, kicked, punched, or otherwise hurt by someone within the past year? If so, by whom?: No Do you feel safe in your current relationship?: No Is there a partner from a previous relationship who is making you feel unsafe now?: No Are you made to feel afraid or neglected: No Spiritual Healthcare Practices: N/A Sikh Healthcare Practices: N/A Cultural Healthcare Practices: N/A Advance Directives: No Advance Directives Information Provided: Yes Advance Directives on File: No Do you have thoughts of harming others: None Do you have a plan to hurt others: No Plan Recently lost weight without trying: No Eating poorly because of decreased appetite: No Nutrition Risks: No Nutritional Risk and Dental problems Patient : No : No Poor oral hygiene: Yes (Patient trying to get to dentist, reports dental problems) service: No Current occupational status: disabled Meds Allergies Allergy/AdvReac Type Severity Reaction Status Date / Time latex Allergy Unknown Unknown Verified 10/21/22 13:48 adhesive tape AdvReac Unknown Unknown Verified 10/21/22 13:48 bupropion [From Wellbutrin] AdvReac Unknown Unknown Verified 10/21/22 13:48 ibuprofen AdvReac Unknown Unknown Verified 10/21/22 13:48 Active Medications: Current Medications Albuterol Sulfate (Albuterol Sulfate (0.083%) 2.5 Mg/3 Ml Vial.Neb) 2.5 mg INHALE RQ4H COUNTS INCLUDE 234 BEDS AT THE [facility] Last Admin: 11/22/22 15:18 Dose: 2.5 mg Famotidine (Famotidine/Pf 20 Mg/2 Ml Vial) 20 mg IVPUSH BID COUNTS INCLUDE 234 BEDS AT THE [facility] Last Admin: 11/22/22 08:55 Dose: 20 mg Glucose (Glucose Gel 15 Gm Gel..Gram.) 15 gm PO Q15M PRN; Protocol PRN Reason: per Hypoglycemia Standing Ord. Heparin Sodium (Porcine) (Heparin Sodium,Porcine 5,000 Unit/Ml Vial) 5,000 unit SUBCUT Q8H COUNTS INCLUDE 234 BEDS AT THE [facility] Last Admin: 11/22/22 13:51 Dose: 5,000 unit Dextrose (D10) 250 mls @ 750 mls/hr IV Q15M PRN; Protocol PRN Reason: per Hypoglycemia Standing Ord. Levofloxacin (Levaquin) 750 mg in 150 mls @ 100 mls/hr IV Q24H ROSSY Doxycycline Hyclate 100 mg/ (Sodium Chloride) 250 mls @ 166.67 mls/hr IV Q12H ROSSY Last Infusion: 11/22/22 15:51 Dose: Infused Home Medications Medication Instructions Recorded Confirmed Last Taken Type acetaminophen 325 mg tablet 650 mg PO Q4H PRN Fever Or Pain 11/18/21 11/20/22 Unknown History atorvastatin 80 mg tablet 80 mg PO BEDTIME 11/18/21 11/20/22 Unknown History enalapril maleate 20 mg tablet 20 mg PO DAILY 11/18/21 11/20/22 Unknown History ferrous sulfate 325 mg (65 mg 325 mg PO DAILY 11/18/21 11/20/22 Unknown History iron) tablet gabapentin 300 mg capsule 300 mg PO DAILY@1200 11/18/21 11/20/22 Unknown History gabapentin 300 mg capsule 600 mg PO BID 11/18/21 11/20/22 Unknown History insulin lispro 100 unit/mL See Protocol subcut QIDACHS 11/18/21 11/20/22 Unknown History subcutaneous pen melatonin 3 mg tablet 3 mg PO BEDTIME 11/18/21 11/20/22 Unknown History polyethylene glycol 3350 17 gram 17 g PO DAILY PRN Constipation 11/18/21 11/20/22 Unknown History oral powder packet (Miralax) sennosides 8.6 mg tablet (senna) 16.2 mg PO DAILY PRN Constipation 11/18/21 11/20/22 Unknown History sertraline 100 mg tablet 200 mg PO DAILY 11/18/21 11/20/22 Unknown History tizanidine 4 mg tablet 4 mg PO BEDTIME PRN Muscle Spasm 11/18/21 11/20/22 Unknown History aspirin 81 mg chewable tablet 81 mg PO DAILY 01/05/22 11/20/22 Unknown History megestrol 400 mg/10 mL (10 mL) 400 mg PO TID 01/05/22 11/20/22 Unknown History oral suspension bupropion HCl 300 mg 24 hr tablet, 300 mg PO DAILY 04/09/22 11/20/22 Unknown History extended release insulin lispro 100 unit/mL 5 unit subcut TIDAC 04/09/22 11/20/22 Unknown History subcutaneous solution Lactobacillus rhamnosus GG 10 1 cap PO BID 10/09/22 11/20/22 Unknown History billion cell capsule (Culturelle) bupropion HCl 150 mg 24 hr tablet, 1 tab PO DAILY 10/09/22 11/20/22 Unknown History extended release ipratropium 0.5 mg-albuterol 3 mg 3 ml inhalation TID 10/09/22 11/20/22 Unknown History (2.5 mg base)/3 mL nebulization soln potassium chloride 10 mEq 10 meq PO DAILY 10/09/22 11/20/22 Unknown History tablet,extended release bisacodyl 10 mg rectal suppository 10 mg VT DAILY PRN Constipation 10/21/22 11/20/22 Unknown History magnesium citrate (Citrate of 150 ml PO DAILY PRN Constipation 10/21/22 11/20/22 Unknown History Magnesia oral) fluticasone 113 mcg-salmeterol 14 1 inh inhalation DAILY 11/09/22 11/20/22 Unknown History mcg/actuation breath activated powdr (AirDuo RespiClick) insulin glargine 100 unit/mL 52 unit subcut DAILY 11/09/22 11/20/22 Unknown History subcutaneous solution magnesium hydroxide 400 mg/5 mL 30 ml PO DAILY PRN Constipation 11/09/22 11/20/22 Unknown History oral suspension (Milk of Magnesia) sodium phosphates 19 gram-7 118 ml VT DAILY PRN Constipation 11/09/22 11/20/22 Unknown History gram/118 mL enema (Fleet Enema) Physical Exam Vital Signs and Narrative: Vital Signs: Last Vital Signs Temp 97.8 F 11/22/22 14:58 Pulse 86 11/22/22 15:19 Resp 22 H 11/22/22 15:20 BP 180/101 H 11/22/22 14:58 Pulse Ox 93 11/22/22 14:58 O2 Del Method 11/22/22 14:58 O2 Flow Rate 40 11/22/22 14:58 FiO2 35 11/22/22 14:58 Oxygen Flow Rate 4 11/20/22 00:24 BMI result Body Mass Index 54.7 Const: Other: Alert, cooperative, able to speak in full sentences. Skin: Other: There is dark purple nonblanching discoloration of the mid to medial left buttock and a similar but smaller area of discoloration involving the right medial gluteal fold. Reddish purple discoloration of the inferomedial left buttock with superficial, partial-thickness ulceration. Patchy purplish discoloration posterior right heel. Results Labs 11/22/22 04:45 11/22/22 04:45 Labs: Laboratory Results - last 24 hr 11/21/22 11/21/22 11/22/22 20:02 20:40 04:45 MCV 89.4 MCH 28.5 MCHC 31.9 RDW 14.1 Plt Count 195 MPV 9.8 Immature Gran % (Auto) 0.2 Neut % (Auto) 65.4 Lymph % (Auto) 24.9 Marion % (Auto) 8.1 Eos % (Auto) 1.0 Baso % (Auto) 0.4 Lymph # (Auto) 2.0 Marion # (Auto) 0.7 Eos # (Auto) 0.1 Baso # (Auto) 0.0 Abs Immat Gran (auto) 0.02 Absolute Neuts (auto) 5.3 Absolute Nucleated RBC 0.000 Nucleated RBC % (auto) 0.0 VBG pH 7.48 H VBG pCO2 47 VBG pO2 44 VBG HCO3 36 H VBG O2 Saturation 68.0 VBG Base Excess 11.2 Anion Gap Estim Creat Clear Calc Estimated GFR POC Glucose 192 H Random Glucose Calcium Phosphorus Magnesium Albumin 11/22/22 11/22/22 11/22/22 04:45 04:50 07:22 MCV MCH MCHC RDW Plt Count MPV Immature Gran % (Auto) Neut % (Auto) Lymph % (Auto) Marion % (Auto) Eos % (Auto) Baso % (Auto) Lymph # (Auto) Marion # (Auto) Eos # (Auto) Baso # (Auto) Abs Immat Gran (auto) Absolute Neuts (auto) Absolute Nucleated RBC Nucleated RBC % (auto) VBG pH 7.53 H VBG pCO2 37 VBG pO2 79 VBG HCO3 31 H VBG O2 Saturation 97.0 VBG Base Excess 8.5 Anion Gap 12 Estim Creat Clear Calc 109.1 Estimated GFR > 60 POC Glucose 148 H Random Glucose 162 H Calcium 8.6 Phosphorus 3.0 Magnesium 1.7 Albumin 3.2 L 11/22/22 11/22/22 11:46 16:03 MCV MCH MCHC RDW Plt Count MPV Immature Gran % (Auto) Neut % (Auto) Lymph % (Auto) Marion % (Auto) Eos % (Auto) Baso % (Auto) Lymph # (Auto) Marion # (Auto) Eos # (Auto) Baso # (Auto) Abs Immat Gran (auto) Absolute Neuts (auto) Absolute Nucleated RBC Nucleated RBC % (auto) VBG pH VBG pCO2 VBG pO2 VBG HCO3 VBG O2 Saturation VBG Base Excess Anion Gap Estim Creat Clear Calc Estimated GFR POC Glucose 229 H 169 H Random Glucose Calcium Phosphorus Magnesium Albumin Assessment and Plan (1) Pressure ulcer, stage II, skin breakdown: Status: Acute (2) Pressure injury of deep tissue of buttock: Status: Acute (3) Pressure injury of deep tissue of right heel: Status: Acute Plan Extra thick protective cream and Alevyn foam dressings to areas of pressure injury buttocks and right heel. Pressure relief with frequent repositioning and low air loss mattress. Please notify Wound Care Service if re-evaluation is needed. Time Spent With Patient Time: Total time managing care of this patient today ____ minutes.
[2022-11-22 19:39] LABS: Glucose, Whole Blood 254 mg/dL (60-115)
[2022-11-23] VITALS (14 sets, daily range): BP systolic 141–180; BP diastolic 62–95; PULSE 73–95; RESP 18–22; TEMP 36.2–36.8; O2SAT 92–99
[2022-11-23] MEDS: Doxycycline Hyclate 100 MG in 0.9 % Sodium Chloride 250 ML 166.67 MG IV ×3 (02:01→22:27)
[2022-11-23] MEDS: Albuterol Sulfate (0.083%) 2.5 MG/3 ML VIAL.NEB INHALE ×5 (04:20→20:28)
[2022-11-23] MEDS: Heparin Sodium,Porcine 5,000 UNIT/ML VIAL 5000 UNIT SUBCUT ×3 (06:26→20:08)
[2022-11-23 07:43] LABS: MANUAL DIFF FLAG NO
[2022-11-23 07:45] LABS: Basophils Percent Auto 0.2 % (0-2); Eosinophils Absolute Auto 0.1 X10*3/uL (0.0-0.4); Eosinophils Percent Auto 1.5 % (0-4); Hematocrit 37.2 % (37.0-47.0); Imm Gran Abs Auto 0.03 X10*3/uL (0.00-0.03); Imm Gran Pct Auto 0.4 % (0.0-0.4); Lymphocytes Absolute Auto 1.8 X10*3/uL (1.2-4.9); Lymphocytes Percent Auto 21.7 % (20-40); Mean Corpuscular HGB Conc 32.3 g/dl (31.0-35.0); Mean Corpuscular Hemoglobin 29.3 pg (27.0-33.0); Mean Corpuscular Volume 90.7 fL (80.0-98.0); Mean Platelet Volume 10.1 fL (9.4-12.3); Monocytes Absolute Auto 0.6 X10*3/uL (0.1-1.2); Monocytes Percent Auto 7.4 % (2-11); Neutrophils Absolute Auto 5.6 x10*3/uL (2.0-8.3); Neutrophils Percent Auto 68.8 % (45-73); Platelet Count 183 X10*3/uL (160-400); Red Cell Distribution Width 14.3 % (11.0-16.0); White Blood Count 8.1 X10*3/uL (4.8-10.8)
[2022-11-23 08:12] LABS: Glucose, Whole Blood 191 mg/dL (60-115)
[2022-11-23 08:22] LABS: Alanine Aminotransferase 12 U/L (0-31); Albumin Level 3.2 g/dL (3.5-5.0); Alkaline Phosphatase 61 U/L (39-117); Anion Gap 15 (12-20); Aspartate Amino Transferase 13 U/L (5-31); Bilirubin Total 0.6 mg/dL (0.0-1.0); Blood Urea Nitrogen 17 mg/dL (9-16); Calcium 8.6 mg/dL (8.4-10.2); Carbon Dioxide 28 mmol/L (22-29); Chloride 101 mmol/L (96-108); Creatinine Clr Calc Pharmacy 125.4; Estimated Glomerular Filt Rate > 60; Glucose Fasting 167 mg/dL (60-99); Potassium 4.2 mmol/L (3.3-5.1); Sodium 140 mmol/L (135-145)
[2022-11-23 09:59] LABS: Procalcitonin 0.04 ng/mL
[2022-11-23] MEDS: Gabapentin 300 MG CAPSULE 600 MG PO ×2 (10:36→19:43)
[2022-11-23] MEDS: amLODIPine Besylate 5 MG TABLET PO (10:37)
[2022-11-23] MEDS: Enalapril Maleate 10 MG TABLET 20 MG PO (10:37)
[2022-11-23] MEDS: Sertraline HCL 100 MG TABLET 200 MG PO (10:37)
[2022-11-23] MEDS: Megestrol Acetate 400 MG/10 ML ORAL.SUSP PO ×3 (10:37→19:44)
[2022-11-23] MEDS: buPROPion HCl XL 150 MG TAB.ER.24H PO (10:37)
[2022-11-23] MEDS: Furosemide 40 MG TABLET PO (10:38)
[2022-11-23] MEDS: buPROPion HCl XL 300 MG TAB.ER.24H PO (10:38)
[2022-11-23] MEDS: Famotidine/PF 20 MG/2 ML VIAL IVPUSH ×2 (10:38→19:43)
[2022-11-23] MEDS: Insulin Glargine,Hum.rec.anlog 100 UNIT/ML 10 ML VIAL 20 UNIT SUBCUT (10:38)
[2022-11-23] MEDS: Aspirin 81 MG TAB.CHEW PO (10:38)
[2022-11-23 11:01] LABS: Glucose, Whole Blood 210 mg/dL (60-115)
[2022-11-23] MEDS: Gabapentin 300 MG CAPSULE PO (12:46)
--- NOTE | 2022-11-23 13:12 | P.PNIM_ITS ---
Subjective Subjective Date of Service: 11/23/22 Interval History: no cough or dyspnea tolerating BiPAP no fever growing ESBL in urine Review of Systems Review of Systems: Yes all other systems are reviewed and are negative Physical Exam Vital Signs: Vital Signs: Last Vital Signs Temp 97.5 F 11/23/22 11:09 Pulse 95 11/23/22 11:09 Resp 20 11/23/22 11:09 BP 168/80 H 11/23/22 11:09 Pulse Ox 99 11/23/22 11:09 O2 Del Method 11/23/22 11:09 O2 Flow Rate 6 11/23/22 11:09 FiO2 30 11/23/22 03:45 Oxygen Flow Rate 4 11/20/22 00:24 BMI result Body Mass Index 54.7 Gen: in no acute distress HEENT: sclera anicteric, moist mucus membranes Neck: supple Lungs: dimimished bilaterally Heart: regular rate and rhythm, no murmurs Abd: soft, non-tender, non-distended, morbidly obese Ext: no edema Skin: warm/well-perfused Neuro: alert and oriented x3, no focal findings Psych: appropriate affect Objective Data Active Medications Albuterol Sulfate (Albuterol Sulfate (0.083%) 2.5 Mg/3 Ml Vial.Neb) 2.5 mg INHALE RQ4H [facility] Last Admin: 11/23/22 10:46 Dose: 2.5 mg Documented By: DESHAWN Amlodipine Besylate (Amlodipine Besylate 5 Mg Tablet) 5 mg PO DAILY [facility]; Protocol Last Admin: 11/23/22 10:37 Dose: 5 mg Documented By: PAL Aspirin (Aspirin 81 Mg Tab.Chew) 81 mg PO DAILY [facility] Last Admin: 11/23/22 10:38 Dose: 81 mg Documented By: PAL Atorvastatin Calcium (Atorvastatin Calcium 80 Mg Tablet) 80 mg PO BEDTIME [facility] Bisacodyl (Bisacodyl 10 Mg Supp.Rect) 10 mg [place] DAILY PRN PRN Reason: Constipation Bupropion HCl (Bupropion Hcl Xl 150 Mg Tab.Er.24h) 150 mg PO DAILY [facility] Last Admin: 11/23/22 10:37 Dose: 150 mg Documented By: PAL Bupropion HCl (Bupropion Hcl Xl 300 Mg Tab.Er.24h) 300 mg PO DAILY [facility] Last Admin: 11/23/22 10:38 Dose: 300 mg Documented By: PAL Enalapril Maleate (Enalapril Maleate 10 Mg Tablet) 20 mg PO DAILY [facility]; Protocol Last Admin: 11/23/22 10:37 Dose: 20 mg Documented By: PAL Famotidine (Famotidine/Pf 20 Mg/2 Ml Vial) 20 mg IVPUSH BID [facility] Last Admin: 11/23/22 10:38 Dose: 20 mg Documented By: PAL Furosemide (Furosemide 40 Mg Tablet) 40 mg PO DAILY [facility]; Protocol Last Admin: 11/23/22 10:38 Dose: 40 mg Documented By: PAL Gabapentin (Gabapentin 300 Mg Capsule) 300 mg PO DAILY@1200 [facility] Last Admin: 11/23/22 12:46 Dose: 300 mg Documented By: PAL Gabapentin (Gabapentin 300 Mg Capsule) 600 mg PO BID [facility] Last Admin: 11/23/22 10:36 Dose: 600 mg Documented By: PAL Glucose (Glucose Gel 15 Gm Gel..Gram.) 15 gm PO Q15M PRN; Protocol PRN Reason: per Hypoglycemia Standing Ord. Heparin Sodium (Porcine) (Heparin Sodium,Porcine 5,000 Unit/Ml Vial) 5,000 unit SUBCUT Q8H [facility] Last Admin: 11/23/22 12:46 Dose: 5,000 unit Documented By: PAL Dextrose (D10) 250 mls @ 750 mls/hr IV Q15M PRN; Protocol PRN Reason: per Hypoglycemia Standing Ord. Doxycycline Hyclate 100 mg/ (Sodium Chloride) 250 mls @ 166.67 mls/hr IV Q12H [facility] Last Admin: 11/23/22 12:44 Dose: 166.67 mls/hr Documented By: PAL Meropenem 1 gm/ Sodium (Chloride) 100 mls @ 200 mls/hr IV Q8H [facility] Last Infusion: 11/23/22 11:19 Dose: 0 mls/hr Documented By: PAL Insulin Glargine (Insulin Glargine,Hum.Rec.Anlog 100 Unit/Ml 10 Ml Vial) 20 unit SUBCUT DAILY [facility] Last Admin: 11/23/22 10:38 Dose: 20 unit Documented By: PAL Magnesium Hydroxide (Milk Of Magnesia 30 Ml Oral.Susp) 30 ml PO DAILY PRN PRN Reason: Constipation Megestrol Acetate (Megestrol Acetate 400 Mg/10 Ml Oral.Susp) 400 mg PO TID [facility] Last Admin: 11/23/22 10:37 Dose: 400 mg Documented By: PAL Melatonin (Melatonin 3 Mg Tablet) 3 mg PO BEDTIME [facility] Non-Formulary Medication (Fluticasone Propion-Salmeterol [Airduo Respiclick]) 1 inhalation INHALE DAILY [facility] Polyethylene Glycol (Polyethylene Glycol 3350 17 Gm Powd.Pack) 17 gm PO DAILY PRN PRN Reason: Constipation Potassium Chloride (Potassium Chloride Er 10 Meq Capsule.Er) 10 meq PO DAILY [facility] Last Admin: 11/23/22 10:39 Dose: 10 meq Documented By: PAL Senna (Sennosides 8.6 Mg Tablet) 17.2 mg PO DAILY PRN PRN Reason: Constipation Sertraline HCl (Sertraline Hcl 100 Mg Tablet) 200 mg PO DAILY [facility] Last Admin: 11/23/22 10:37 Dose: 200 mg Documented By: PAL Sodium Biphosphate/Sodium Phosphate (Sodium Phosphate,[place]-Dibasic 133 Ml Enema) 118 ml [place] DAILY PRN PRN Reason: Constipation Labs 11/23/22 06:39 11/23/22 06:39 Labs: Laboratory Results - last 24 hr 11/22/22 11/22/22 11/23/22 16:03 19:31 06:39 MCV 90.7 MCH 29.3 MCHC 32.3 RDW 14.3 Plt Count 183 MPV 10.1 Immature Gran % (Auto) 0.4 Neut % (Auto) 68.8 Lymph % (Auto) 21.7 [place] % (Auto) 7.4 Eos % (Auto) 1.5 Baso % (Auto) 0.2 Lymph # (Auto) 1.8 [place] # (Auto) 0.6 Eos # (Auto) 0.1 Baso # (Auto) 0.0 Abs Immat Gran (auto) 0.03 Absolute Neuts (auto) 5.6 Absolute Nucleated RBC 0.000 Nucleated RBC % (auto) 0.0 Anion Gap Estim Creat Clear Calc Estimated GFR POC Glucose 169 H 254 H Fasting Glucose Calcium Total Bilirubin AST ALT Alkaline Phosphatase Total Protein Albumin Procalcitonin 11/23/22 11/23/22 11/23/22 06:39 07:27 10:50 MCV MCH MCHC RDW Plt Count MPV Immature Gran % (Auto) Neut % (Auto) Lymph % (Auto) [place] % (Auto) Eos % (Auto) Baso % (Auto) Lymph # (Auto) [place] # (Auto) Eos # (Auto) Baso # (Auto) Abs Immat Gran (auto) Absolute Neuts (auto) Absolute Nucleated RBC Nucleated RBC % (auto) Anion Gap 15 Estim Creat Clear Calc 125.4 Estimated GFR > 60 POC Glucose 191 H 210 H Fasting Glucose 167 H Calcium 8.6 Total Bilirubin 0.6 AST 13 ALT 12 Alkaline Phosphatase 61 Total Protein 6.0 L Albumin 3.2 L Procalcitonin 0.04 Microbiology Microbiology Results: Microbiology 11/20/22 13:50 Blood Culture - Preliminary Blood - Venous No growth after 48 hours. 11/20/22 Unknown Urine Culture - Final Urine Catheterized - Sood Catheter Klebsiella pneumoniae Assessment and Plan (1) Acute and chronic respiratory failure with hypercapnia: Status: Inactive (2) Diabetes mellitus, type 2: Status: Inactive Plan hospital d#4 61yo F with obesity hypoventilation syndrome as well as SMILEY on BiPAP,a nd history of ESBL UTI, admitted to ICU on BiPAP with hypoxic/hypercarbic respiratory failure due to pneumonia stepped down to [facility] 11/22/22 # acute/chronic hypoxic/hypercarbic respiratory failure - BiPAP at night and for maps, got 1 dose acetazolamide in ICU and was on continuous BiPAP for 24h + HFNC # ESBL UTI - change to meropenem 11/23- # nosocomial pneumonia - on meropenem as above, also doxycycline 11/22- # DM2 uncontrolled with A1c 11.6 - basal-bolus insulin # HTN - amlodipine, enalapril, furosemide # HLD - atorvastatin # mood disorder - bupropion, sertraline # VTE ppx: UFH # dispo: anticipate return to [facility] eventually In my clinical judgment, the patient requires continued inpatient hospitalization for the following reasons: IV ABX Time Spent With Patient Time: Total time managing care of this patient today ____ minutes. Quality Stroke Does the patient have a stroke diagnosis?: No VTE Prior VTE?: No VTE Risk Level:: Medical - moderate - high VTE Device Contraindication: N/A - Device Ordered VTE Drug Contraindication: N/A - Med Ordered
[2022-11-23 16:11] LABS: Glucose, Whole Blood 314 mg/dL (60-115)
[2022-11-23] MEDS: Atorvastatin Calcium 80 MG TABLET PO (19:44)
[2022-11-23] MEDS: Melatonin 3 MG TABLET PO (19:44)
[2022-11-23 19:55] LABS: Glucose, Whole Blood 281 mg/dL (60-115)
[2022-11-23] MEDS: Insulin Lispro 100 UNIT/ML 3 ML VIAL SUBCUT (20:09)
[2022-11-24] VITALS (13 sets, daily range): BP systolic 107–162; BP diastolic 58–78; PULSE 65–84; RESP 0–25; TEMP 36.2–36.8; O2SAT 92–99
[2022-11-24] MEDS: Albuterol Sulfate (0.083%) 2.5 MG/3 ML VIAL.NEB INHALE ×6 (00:57→19:02)
[2022-11-24] MEDS: Heparin Sodium,Porcine 5,000 UNIT/ML VIAL 5000 UNIT SUBCUT ×3 (04:23→21:58)
[2022-11-24 07:03] LABS: Venous Blood Gas Refer to POC result
[2022-11-24 07:06] LABS: VBG Base Excess 3.7 mmol/L; VBG HCO3 29 mmol/L (22-26); VBG pCO2 46 mmHg; VBG pO2 84 mmHg
[2022-11-24 07:14] LABS: Hematocrit 36.3 % (37.0-47.0); Hemoglobin 11.2 g/dl (12.0-16.0); Mean Corpuscular HGB Conc 30.9 g/dl (31.0-35.0); Mean Corpuscular Hemoglobin 27.9 pg (27.0-33.0); Mean Corpuscular Volume 90.5 fL (80.0-98.0); Mean Platelet Volume 9.7 fL (9.4-12.3); Platelet Count 164 X10*3/uL (160-400); Red Blood Count 4.01 X10*6/uL (4.20-5.50); Red Cell Distribution Width 14.1 % (11.0-16.0); White Blood Count 7.5 X10*3/uL (4.8-10.8)
[2022-11-24 07:24] LABS: Anion Gap 15 (12-20); Blood Urea Nitrogen 21 mg/dL (9-16); Calcium 8.1 mg/dL (8.4-10.2); Carbon Dioxide 27 mmol/L (22-29); Chloride 102 mmol/L (96-108); Creatinine Clr Calc Pharmacy 126.9; Estimated Glomerular Filt Rate > 60; Glucose Random 186 mg/dL (60-115); Potassium 4.1 mmol/L (3.3-5.1); Sodium 140 mmol/L (135-145)
[2022-11-24 07:59] LABS: Glucose, Whole Blood 182 mg/dL (60-115)
[2022-11-24] MEDS: Gabapentin 300 MG CAPSULE 600 MG PO ×2 (09:11→21:58)
[2022-11-24] MEDS: Sertraline HCL 100 MG TABLET 200 MG PO (09:11)
[2022-11-24] MEDS: Aspirin 81 MG TAB.CHEW PO (09:11)
[2022-11-24] MEDS: buPROPion HCl XL 300 MG TAB.ER.24H PO (09:12)
[2022-11-24] MEDS: buPROPion HCl XL 150 MG TAB.ER.24H PO (09:12)
[2022-11-24] MEDS: Enalapril Maleate 10 MG TABLET 20 MG PO (09:12)
[2022-11-24] MEDS: Furosemide 40 MG TABLET PO (09:12)
[2022-11-24] MEDS: amLODIPine Besylate 5 MG TABLET PO (09:12)
[2022-11-24] MEDS: Famotidine/PF 20 MG/2 ML VIAL IVPUSH ×2 (09:13→21:58)
[2022-11-24] MEDS: Megestrol Acetate 400 MG/10 ML ORAL.SUSP PO ×3 (09:13→21:58)
[2022-11-24] MEDS: Insulin Glargine,Hum.rec.anlog 100 UNIT/ML 10 ML VIAL 20 UNIT SUBCUT (09:13)
[2022-11-24] MEDS: Insulin Lispro 100 UNIT/ML 3 ML VIAL SUBCUT ×4 (09:14→21:55)
[2022-11-24 11:46] LABS: Glucose, Whole Blood 238 mg/dL (60-115)
[2022-11-24] MEDS: Gabapentin 300 MG CAPSULE PO (12:11)
[2022-11-24] MEDS: Doxycycline Hyclate 100 MG in 0.9 % Sodium Chloride 250 ML 166.67 MG IV (12:12)
--- NOTE | 2022-11-24 12:41 | P.PNIM_ITS ---
Subjective Subjective Date of Service: 11/24/22 Interval History: adherent with biPAP overnight, denies dyspnea or cough no fever Review of Systems Review of Systems: Yes all other systems are reviewed and are negative Physical Exam Vital Signs: Vital Signs: Last Vital Signs Temp 97.7 F 11/24/22 10:59 Pulse 74 11/24/22 11:22 Resp 18 11/24/22 11:22 BP 128/60 11/24/22 10:59 Pulse Ox 92 11/24/22 10:59 O2 Del Method 11/24/22 10:59 O2 Flow Rate 6 11/24/22 10:59 FiO2 30 11/23/22 03:45 Oxygen Flow Rate 4 11/20/22 00:24 BMI result Body Mass Index 54.7 Gen: in no acute distress HEENT: sclera anicteric, moist mucus membranes Neck: supple Lungs: dimimished bilaterally Heart: regular rate and rhythm, no murmurs Abd: soft, non-tender, non-distended, morbidly obese Ext: no edema Skin: warm/well-perfused Neuro: alert and oriented x3, no focal findings Psych: appropriate affect Objective Data Active Medications Albuterol Sulfate (Albuterol Sulfate (0.083%) 2.5 Mg/3 Ml Vial.Neb) 2.5 mg INHALE RQ4H [facility] Last Admin: 11/24/22 11:21 Dose: 2.5 mg Documented By: DESHAWN Amlodipine Besylate (Amlodipine Besylate 5 Mg Tablet) 5 mg PO DAILY [facility]; Protocol Last Admin: 11/24/22 09:12 Dose: 5 mg Documented By: INEZ Aspirin (Aspirin 81 Mg Tab.Chew) 81 mg PO DAILY [facility] Last Admin: 11/24/22 09:11 Dose: 81 mg Documented By: INEZ Atorvastatin Calcium (Atorvastatin Calcium 80 Mg Tablet) 80 mg PO BEDTIME [facility] Last Admin: 11/23/22 19:44 Dose: 80 mg Documented By: INEZ Bisacodyl (Bisacodyl 10 Mg Supp.Rect) 10 mg [place] DAILY PRN PRN Reason: Constipation Bupropion HCl (Bupropion Hcl Xl 150 Mg Tab.Er.24h) 150 mg PO DAILY [facility] Last Admin: 11/24/22 09:12 Dose: 150 mg Documented By: INEZ Bupropion HCl (Bupropion Hcl Xl 300 Mg Tab.Er.24h) 300 mg PO DAILY [facility] Last Admin: 11/24/22 09:12 Dose: 300 mg Documented By: ANTJACK Enalapril Maleate (Enalapril Maleate 10 Mg Tablet) 20 mg PO DAILY [facility]; Protocol Last Admin: 11/24/22 09:12 Dose: 20 mg Documented By: ANTOIC Famotidine (Famotidine/Pf 20 Mg/2 Ml Vial) 20 mg IVPUSH BID [facility] Last Admin: 11/24/22 09:13 Dose: 20 mg Documented By: ANTJACK Furosemide (Furosemide 40 Mg Tablet) 40 mg PO DAILY [facility]; Protocol Last Admin: 11/24/22 09:12 Dose: 40 mg Documented By: ANTOIC Gabapentin (Gabapentin 300 Mg Capsule) 300 mg PO DAILY@1200 [facility] Last Admin: 11/24/22 12:11 Dose: 300 mg Documented By: ANTJACK Gabapentin (Gabapentin 300 Mg Capsule) 600 mg PO BID [facility] Last Admin: 11/24/22 09:11 Dose: 600 mg Documented By: INEZ Glucose (Glucose Gel 15 Gm Gel..Gram.) 15 gm PO Q15M PRN; Protocol PRN Reason: per Hypoglycemia Standing Ord. Glucose (Glucose Gel 15 Gm Gel..Gram.) 15 gm PO Q15M PRN; Protocol PRN Reason: per Hypoglycemia Standing Ord. Heparin Sodium (Porcine) (Heparin Sodium,Porcine 5,000 Unit/Ml Vial) 5,000 unit SUBCUT Q8H [facility] Last Admin: 11/24/22 12:11 Dose: 5,000 unit Documented By: ASTRIDOIC Dextrose (D10) 250 mls @ 750 mls/hr IV Q15M PRN; Protocol PRN Reason: per Hypoglycemia Standing Ord. Doxycycline Hyclate 100 mg/ (Sodium Chloride) 250 mls @ 166.67 mls/hr IV Q12H [facility] Last Admin: 11/24/22 12:12 Dose: 166.67 mls/hr Documented By: INEZ Meropenem 1 gm/ Sodium (Chloride) 100 mls @ 200 mls/hr IV Q8H [facility] Last Infusion: 11/24/22 09:58 Dose: 0 mls/hr Documented By: ANTOIC Dextrose (D10) 250 mls @ 750 mls/hr IV Q15M PRN; Protocol PRN Reason: per Hypoglycemia Standing Ord. Insulin Glargine (Insulin Glargine,Hum.Rec.Anlog 100 Unit/Ml 10 Ml Vial) 20 unit SUBCUT DAILY [facility] Last Admin: 11/24/22 09:13 Dose: 20 unit Documented By: ANTOIC Insulin Human Lispro (Insulin Lispro 100 Unit/Ml 3 Ml Vial) 0 unit SUBCUT QIDACHS [facility]; Protocol Last Admin: 11/24/22 12:12 Dose: 4 unit Documented By: ANTOIC Magnesium Hydroxide (Milk Of Magnesia 30 Ml Oral.Susp) 30 ml PO DAILY PRN PRN Reason: Constipation Megestrol Acetate (Megestrol Acetate 400 Mg/10 Ml Oral.Susp) 400 mg PO TID [facility] Last Admin: 11/24/22 09:13 Dose: 400 mg Documented By: ANTOIC Melatonin (Melatonin 3 Mg Tablet) 3 mg PO BEDTIME [facility] Last Admin: 11/23/22 19:44 Dose: 3 mg Documented By: ANTOIC Non-Formulary Medication (Fluticasone Propion-Salmeterol [Airduo Respiclick]) 1 inhalation INHALE DAILY [facility] Polyethylene Glycol (Polyethylene Glycol 3350 17 Gm Powd.Pack) 17 gm PO DAILY PRN PRN Reason: Constipation Potassium Chloride (Potassium Chloride Er 10 Meq Capsule.Er) 10 meq PO DAILY [facility] Last Admin: 11/24/22 09:11 Dose: 10 meq Documented By: ANTOIC Senna (Sennosides 8.6 Mg Tablet) 17.2 mg PO DAILY PRN PRN Reason: Constipation Sertraline HCl (Sertraline Hcl 100 Mg Tablet) 200 mg PO DAILY [facility] Last Admin: 11/24/22 09:11 Dose: 200 mg Documented By: ANTOIC Sodium Biphosphate/Sodium Phosphate (Sodium Phosphate,[place]-Dibasic 133 Ml Enema) 118 ml [place] DAILY PRN PRN Reason: Constipation Labs 11/24/22 06:56 11/24/22 06:56 Labs: Laboratory Results - last 24 hr 11/23/22 11/23/22 11/24/22 16:01 19:46 06:56 MCV 90.5 MCH 27.9 MCHC 30.9 L RDW 14.1 Plt Count 164 MPV 9.7 Absolute Nucleated RBC 0.000 Nucleated RBC % (auto) 0.0 VBG pH VBG pCO2 VBG pO2 VBG HCO3 VBG O2 Saturation VBG Base Excess Anion Gap Estim Creat Clear Calc Estimated GFR POC Glucose 314 H 281 H Random Glucose Calcium 11/24/22 11/24/22 11/24/22 06:56 06:58 07:29 MCV MCH MCHC RDW Plt Count MPV Absolute Nucleated RBC Nucleated RBC % (auto) VBG pH 7.40 VBG pCO2 46 VBG pO2 84 VBG HCO3 29 H VBG O2 Saturation 98.0 VBG Base Excess 3.7 Anion Gap 15 Estim Creat Clear Calc 126.9 Estimated GFR > 60 POC Glucose 182 H Random Glucose 186 H Calcium 8.1 L 11/24/22 11:01 MCV MCH MCHC RDW Plt Count MPV Absolute Nucleated RBC Nucleated RBC % (auto) VBG pH VBG pCO2 VBG pO2 VBG HCO3 VBG O2 Saturation VBG Base Excess Anion Gap Estim Creat Clear Calc Estimated GFR POC Glucose 238 H Random Glucose Calcium Assessment and Plan (1) Acute and chronic respiratory failure with hypercapnia: Status: Inactive (2) Diabetes mellitus, type 2: Status: Inactive Plan hospital d#5 61yo F with obesity hypoventilation syndrome as well as SMILEY on BiPAP, and history of ESBL UTI, admitted to ICU on BiPAP with hypoxic/hypercarbic respiratory failure due to pneumonia stepped down to [facility] 11/22/22 # acute/chronic hypoxic/hypercarbic respiratory failure - BiPAP at night and for naps, got 1 dose acetazolamide in ICU and was on continuous BiPAP for 24h + HFNC # ESBL UTI - changed to meropenem 11/23-, ID consult # nosocomial pneumonia - on meropenem as above, also doxycycline 11/22- # DM2 uncontrolled with A1c 11.6 - basal-bolus insulin # HTN - amlodipine, enalapril, furosemide # HLD - atorvastatin # mood disorder - bupropion, sertraline # pressure injury of buttocks + R heel, stage 2 - Wound Care consulted: extra thick protective cream and Alevyn foam dressings to areas of pressure injury buttocks and right heel.? Pressure relief with frequent repositioning and low air loss mattress. # VTE ppx: UFH # dispo: anticipate return to [facility] eventually In my clinical judgment, the patient requires continued inpatient hospitalization for the following reasons: IV ABX Time Spent With Patient Time: Total time managing care of this patient today __30 __ minutes. Quality Stroke Does the patient have a stroke diagnosis?: No VTE Prior VTE?: No VTE Risk Level:: Medical - moderate - high VTE Device Contraindication: N/A - Device Ordered VTE Drug Contraindication: N/A - Med Ordered
[2022-11-24 16:29] LABS: Glucose, Whole Blood 304 mg/dL (60-115)
[2022-11-24 19:45] LABS: Glucose, Whole Blood 325 mg/dL (60-115)
[2022-11-24] MEDS: Melatonin 3 MG TABLET PO (21:58)
[2022-11-24] MEDS: Atorvastatin Calcium 80 MG TABLET PO (21:58)
[2022-11-25] VITALS (16 sets, daily range): BP systolic 133–168; BP diastolic 67–93; PULSE 60–85; RESP 12–25; TEMP 36.1–36.4; O2SAT 93–98
[2022-11-25] MEDS: Albuterol Sulfate (0.083%) 2.5 MG/3 ML VIAL.NEB INHALE ×6 (00:49→19:39)
[2022-11-25] MEDS: Doxycycline Hyclate 100 MG in 0.9 % Sodium Chloride 250 ML 166.67 MG IV ×2 (02:24→12:34)
[2022-11-25] MEDS: Heparin Sodium,Porcine 5,000 UNIT/ML VIAL 5000 UNIT SUBCUT ×3 (05:31→21:23)
[2022-11-25 07:57] LABS: Glucose, Whole Blood 183 mg/dL (60-115)
[2022-11-25] MEDS: Insulin Glargine,Hum.rec.anlog 100 UNIT/ML 10 ML VIAL 20 UNIT SUBCUT (08:18)
[2022-11-25] MEDS: Insulin Lispro 100 UNIT/ML 3 ML VIAL SUBCUT ×4 (08:18→21:17)
[2022-11-25] MEDS: Gabapentin 300 MG CAPSULE 600 MG PO ×2 (08:19→21:17)
[2022-11-25] MEDS: Megestrol Acetate 400 MG/10 ML ORAL.SUSP PO ×3 (08:19→21:18)
[2022-11-25] MEDS: buPROPion HCl XL 150 MG TAB.ER.24H PO (08:19)
[2022-11-25] MEDS: Famotidine/PF 20 MG/2 ML VIAL IVPUSH ×2 (08:19→21:17)
[2022-11-25] MEDS: Enalapril Maleate 10 MG TABLET 20 MG PO (08:20)
[2022-11-25] MEDS: Sertraline HCL 100 MG TABLET 200 MG PO (08:20)
[2022-11-25] MEDS: Furosemide 40 MG TABLET PO (08:20)
[2022-11-25] MEDS: amLODIPine Besylate 5 MG TABLET PO (08:20)
[2022-11-25] MEDS: buPROPion HCl XL 300 MG TAB.ER.24H PO (08:20)
[2022-11-25] MEDS: Aspirin 81 MG TAB.CHEW PO (08:20)
--- NOTE | 2022-11-25 11:11 | P.PNIM_ITS ---
Subjective Subjective Date of Service: 11/25/22 Interval History: no cough or dyspnea can urinate on own, will remove Sood Review of Systems Review of Systems: Yes all other systems are reviewed and are negative Physical Exam Vital Signs: Vital Signs: Last Vital Signs Temp 96.9 F 11/25/22 11:09 Pulse 76 11/25/22 11:09 Resp 20 11/25/22 11:09 BP 144/67 H 11/25/22 11:09 Pulse Ox 97 11/25/22 11:09 O2 Del Method 11/25/22 11:09 O2 Flow Rate 6 11/25/22 11:09 FiO2 30 11/23/22 03:45 Oxygen Flow Rate 4 11/20/22 00:24 BMI result Body Mass Index 54.7 Gen: in no acute distress HEENT: sclera anicteric, moist mucus membranes Neck: supple Lungs: dimimished bilaterally Heart: regular rate and rhythm, no murmurs Abd: soft, non-tender, non-distended, morbidly obese Ext: no edema Skin: warm/well-perfused Neuro: alert and oriented x3, no focal findings Psych: appropriate affect Objective Data Active Medications Albuterol Sulfate (Albuterol Sulfate (0.083%) 2.5 Mg/3 Ml Vial.Neb) 2.5 mg INHALE RQ4H [facility] Last Admin: 11/25/22 10:56 Dose: 2.5 mg Documented By: DESHAWN Amlodipine Besylate (Amlodipine Besylate 5 Mg Tablet) 5 mg PO DAILY [facility]; Protocol Last Admin: 11/25/22 08:20 Dose: 5 mg Documented By: CHOCO Aspirin (Aspirin 81 Mg Tab.Chew) 81 mg PO DAILY [facility] Last Admin: 11/25/22 08:20 Dose: 81 mg Documented By: CHOCO Atorvastatin Calcium (Atorvastatin Calcium 80 Mg Tablet) 80 mg PO BEDTIME [facility] Last Admin: 11/24/22 21:58 Dose: 80 mg Documented By: STEPHANIE Bisacodyl (Bisacodyl 10 Mg Supp.Rect) 10 mg [place] DAILY PRN PRN Reason: Constipation Bupropion HCl (Bupropion Hcl Xl 150 Mg Tab.Er.24h) 150 mg PO DAILY [facility] Last Admin: 11/25/22 08:19 Dose: 150 mg Documented By: CHOCO Bupropion HCl (Bupropion Hcl Xl 300 Mg Tab.Er.24h) 300 mg PO DAILY [facility] Last Admin: 11/25/22 08:20 Dose: 300 mg Documented By: CHOCO Enalapril Maleate (Enalapril Maleate 10 Mg Tablet) 20 mg PO DAILY [facility]; Protocol Last Admin: 11/25/22 08:20 Dose: 20 mg Documented By: CHOCO Famotidine (Famotidine/Pf 20 Mg/2 Ml Vial) 20 mg IVPUSH BID [facility] Last Admin: 11/25/22 08:19 Dose: 20 mg Documented By: CHOCO Furosemide (Furosemide 40 Mg Tablet) 40 mg PO DAILY [facility]; Protocol Last Admin: 11/25/22 08:20 Dose: 40 mg Documented By: CHOCO Gabapentin (Gabapentin 300 Mg Capsule) 300 mg PO DAILY@1200 [facility] Last Admin: 11/24/22 12:11 Dose: 300 mg Documented By: ANTOIC Gabapentin (Gabapentin 300 Mg Capsule) 600 mg PO BID [facility] Last Admin: 11/25/22 08:19 Dose: 600 mg Documented By: CHOCO Glucose (Glucose Gel 15 Gm Gel..Gram.) 15 gm PO Q15M PRN; Protocol PRN Reason: per Hypoglycemia Standing Ord. Glucose (Glucose Gel 15 Gm Gel..Gram.) 15 gm PO Q15M PRN; Protocol PRN Reason: per Hypoglycemia Standing Ord. Heparin Sodium (Porcine) (Heparin Sodium,Porcine 5,000 Unit/Ml Vial) 5,000 unit SUBCUT Q8H [facility] Last Admin: 11/25/22 05:31 Dose: 5,000 unit Documented By: STEPHANIE Dextrose (D10) 250 mls @ 750 mls/hr IV Q15M PRN; Protocol PRN Reason: per Hypoglycemia Standing Ord. Doxycycline Hyclate 100 mg/ (Sodium Chloride) 250 mls @ 166.67 mls/hr IV Q12H [facility] Last Infusion: 11/25/22 04:50 Dose: 0 mls/hr Documented By: STEPHANIE Meropenem 1 gm/ Sodium (Chloride) 100 mls @ 200 mls/hr IV Q8H [facility] Last Infusion: 11/25/22 03:02 Dose: 0 mls/hr Documented By: STEPHANIE Dextrose (D10) 250 mls @ 750 mls/hr IV Q15M PRN; Protocol PRN Reason: per Hypoglycemia Standing Ord. Insulin Glargine (Insulin Glargine,Hum.Rec.Anlog 100 Unit/Ml 10 Ml Vial) 20 unit SUBCUT DAILY [facility] Last Admin: 11/25/22 08:18 Dose: 20 unit Documented By: CHOCO Insulin Human Lispro (Insulin Lispro 100 Unit/Ml 3 Ml Vial) 0 unit SUBCUT QIDACHS [facility]; Protocol Last Admin: 11/25/22 08:18 Dose: 2 unit Documented By: CHOCO Magnesium Hydroxide (Milk Of Magnesia 30 Ml Oral.Susp) 30 ml PO DAILY PRN PRN Reason: Constipation Megestrol Acetate (Megestrol Acetate 400 Mg/10 Ml Oral.Susp) 400 mg PO TID [facility] Last Admin: 11/25/22 08:19 Dose: 400 mg Documented By: CHOCO Melatonin (Melatonin 3 Mg Tablet) 3 mg PO BEDTIME [facility] Last Admin: 11/24/22 21:58 Dose: 3 mg Documented By: STEPHANIE Non-Formulary Medication (Fluticasone Propion-Salmeterol [Airduo Respiclick]) 1 inhalation INHALE DAILY [facility] Polyethylene Glycol (Polyethylene Glycol 3350 17 Gm Powd.Pack) 17 gm PO DAILY PRN PRN Reason: Constipation Potassium Chloride (Potassium Chloride Er 10 Meq Capsule.Er) 10 meq PO DAILY [facility] Last Admin: 11/25/22 08:19 Dose: 10 meq Documented By: CHOCO Senna (Sennosides 8.6 Mg Tablet) 17.2 mg PO DAILY PRN PRN Reason: Constipation Sertraline HCl (Sertraline Hcl 100 Mg Tablet) 200 mg PO DAILY [facility] Last Admin: 11/25/22 08:20 Dose: 200 mg Documented By: CHOCO Sodium Biphosphate/Sodium Phosphate (Sodium Phosphate,[place]-Dibasic 133 Ml Enema) 118 ml [place] DAILY PRN PRN Reason: Constipation Labs 11/24/22 06:56 11/24/22 06:56 Labs: Laboratory Results - last 24 hr 11/24/22 11/24/22 11/24/22 11:01 16:25 19:38 POC Glucose 238 H 304 H 325 H 11/25/22 07:18 POC Glucose 183 H Assessment and Plan (1) Acute and chronic respiratory failure with hypercapnia: Status: Inactive (2) Diabetes mellitus, type 2: Status: Inactive Plan hospital d#6 61yo F with obesity hypoventilation syndrome as well as SMILEY on BiPAP, and history of ESBL UTI, admitted to ICU on BiPAP with hypoxic/hypercarbic respiratory failure due to pneumonia stepped down to [facility] 11/22/22 # acute/chronic hypoxic/hypercarbic respiratory failure - BiPAP at night and for naps, got 1 dose acetazolamide in ICU and was on continuous BiPAP for 24h + HFNC # ESBL UTI - changed to meropenem 11/23-, ID consult re duration- may need midline # nosocomial pneumonia - on meropenem as above, also doxycycline 11/22- # DM2 uncontrolled with A1c 11.6 - basal-bolus insulin # HTN - amlodipine, enalapril, furosemide # HLD - atorvastatin # mood disorder - bupropion, sertraline # pressure injury of buttocks + R heel, stage 2 - Wound Care consulted: extra thick protective cream and Alevyn foam dressings to areas of pressure injury buttocks and right heel.? Pressure relief with frequent repositioning and low air loss mattress. # VTE ppx: UFH # dispo: anticipate return to [facility] eventually In my clinical judgment, the patient requires continued inpatient hospitalization for the following reasons: IV ABX for drug-resistant bacterial infection Time Spent With Patient Time: Total time managing care of this patient today __35__ minutes. Quality Stroke Does the patient have a stroke diagnosis?: No VTE Prior VTE?: No VTE Risk Level:: Medical - moderate - high VTE Device Contraindication: N/A - Device Ordered VTE Drug Contraindication: N/A - Med Ordered
--- NOTE | 2022-11-25 11:13 | MHC.CLN ---
F/U PATIENT WITH INCREASED NUTRITION NEEDS DUE TO WOUNDS: STAGE II TO LEFT GLUTEAL FOLD, RIGHT BUTTOCK, LEFT BUTTOCK; DTI TO RIGHT HEEL. DIET=DIABETIC 2200 KCAL, 2 G SODIUM. ENSURE MAX PROTEIN BID (300 KCALS, 60 G PROTEIN) TO PROMOTE WOUND HEALING. INTAKE USUALLY 100%. FOLLOW FOR INTAKE AND WOUND HEALING.
[2022-11-25 11:35] LABS: Glucose, Whole Blood 227 mg/dL (60-115)
[2022-11-25] MEDS: Gabapentin 300 MG CAPSULE PO (11:43)
--- NOTE | 2022-11-25 12:32 | MHC.CM.PN ---
Patient has not yet been medically cleared for dc (IV ABT); returning to [facility] is the plan and CM will continue to follow.
--- NOTE | 2022-11-25 16:33 | PC.NURSE ---
Sood catheter removed at 1400, patient able to void, voided 200ml at 1530, per patient's request external catheter placed
[2022-11-25 16:51] LABS: Glucose, Whole Blood 351 mg/dL (60-115)
[2022-11-25 20:12] LABS: Glucose, Whole Blood 314 mg/dL (60-115)
[2022-11-25] MEDS: Atorvastatin Calcium 80 MG TABLET PO (21:17)
[2022-11-25] MEDS: Melatonin 3 MG TABLET PO (21:18)
[2022-11-26] VITALS (8 sets, daily range): BP systolic 128–169; BP diastolic 69–83; PULSE 66–87; RESP 15–21; TEMP 36–36.4; O2SAT 96–97
[2022-11-26] MEDS: Albuterol Sulfate (0.083%) 2.5 MG/3 ML VIAL.NEB INHALE ×4 (00:03→11:16)
[2022-11-26] MEDS: Doxycycline Hyclate 100 MG in 0.9 % Sodium Chloride 250 ML 166.67 MG IV (01:58)
[2022-11-26] MEDS: Heparin Sodium,Porcine 5,000 UNIT/ML VIAL 5000 UNIT SUBCUT (04:03)
[2022-11-26 07:48] LABS: Glucose, Whole Blood 201 mg/dL (60-115)
[2022-11-26] MEDS: amLODIPine Besylate 5 MG TABLET PO (08:55)
[2022-11-26] MEDS: Insulin Lispro 100 UNIT/ML 3 ML VIAL SUBCUT ×2 (08:55→12:18)
[2022-11-26] MEDS: Famotidine/PF 20 MG/2 ML VIAL IVPUSH (08:55)
[2022-11-26] MEDS: Megestrol Acetate 400 MG/10 ML ORAL.SUSP PO (08:55)
[2022-11-26] MEDS: Enalapril Maleate 10 MG TABLET 20 MG PO (08:55)
[2022-11-26] MEDS: Insulin Glargine,Hum.rec.anlog 100 UNIT/ML 10 ML VIAL 20 UNIT SUBCUT (08:55)
[2022-11-26] MEDS: buPROPion HCl XL 150 MG TAB.ER.24H PO (08:56)
[2022-11-26] MEDS: Aspirin 81 MG TAB.CHEW PO (08:56)
[2022-11-26] MEDS: buPROPion HCl XL 300 MG TAB.ER.24H PO (08:56)
[2022-11-26] MEDS: Furosemide 40 MG TABLET PO (08:56)
[2022-11-26] MEDS: Sertraline HCL 100 MG TABLET 200 MG PO (08:56)
[2022-11-26] MEDS: Gabapentin 300 MG CAPSULE 600 MG PO (08:56)
--- NOTE | 2022-11-26 10:54 | MHC.CM.PN ---
Per ROUNDS discussion, Patient has been medically cleared for dc to return to LTC @ [facility] today at 1PM via [facility]. CM has informed Patient's /HCP/Miah @ [phone] of the dc plan.
--- NOTE | 2022-11-26 11:17 | PM.DS ---
DS: Providers Provider Date of Service: 11/26/22 Date of admission: 11/20/22 13:18 Primary care physician: Darlene Bal MD Consults: 11/20/22 13:51 Consult to Infectious Diseases Stat Consulting Provider: Odalis Holley Reason for consultation: MEROPENEM Has provider been notified: No 11/22/22 08:50 Consult to Wound Care Routine Consulting Provider: Rambicm Wound Ca,Silvia Reason for consultation: wound on buttocks and right heel 11/24/22 07:42 Consult to Infectious Diseases Routine Consulting Provider: [facility] Infectious Disease Reason for consultation: esbl DS: Diagnosis Discharge Diagnosis (1) Acute and chronic respiratory failure with hypercapnia: Status: Inactive (2) Diabetes mellitus, type 2: Status: Inactive (3) Acute on chronic respiratory failure with hypoxia and hypercapnia: Status: Acute (4) Nosocomial pneumonia: Status: Acute (5) Urinary tract infection due to ESBL Klebsiella: Status: Acute (6) Pressure injury of deep tissue of right heel: Status: Acute (7) Pressure injury of deep tissue of buttock: Status: Acute (8) Pressure ulcer, stage II, skin breakdown: Status: Acute DS: Summary Hospital Course Hospital Course: from admission H+P by internet marketing consultant Cj Salazar MD, 11/20/22: 61-year-old morbidly obese type 2 diabetic with 1 of many frequent return visits to the same circumstance namely altered mental status with acute exacerbations of hypercarbic and hypoxic respiratory failure but in this instance she had a lingering need for the BiPAP mechanism because of increased work of breathing and presented with a multilobar infiltrate and she does live in a assisted situations so this would be a nosocomial etiology for pneumonia presumably and I did a bedside echo which did show mild concentric left ventricular hypertrophy and she is in sinus rhythm with a left bundle branch block with clear-cut septal paradox so ejection fraction is moderately reduced probably in the range of the mid 40 percentile range and I of course could not visualize the inferior vena cava comfortably but there was no significant left ventricular or right ventricular dilatation and there was no primary valve or pericardial disease Blood gases on nasal high-flow indicated an acute rise in her pCO2 from 70-79 and somewhere between 65 and 70 is which she chronically is compensated so based on her continued dependence on BiPAP but we kept her in the ICU in case respiratory insufficiency had progressed to the point of intubation and she looked very comfortable on BiPAP generating excellent tidal volumes and blood gases over compensated pCO2 came down to 46 61yo F with obesity hypoventilation syndrome as well as SMILEY on BiPAP, and history of ESBL UTI. She was admitted to ICU on 11/20/22 on BiPAP with hypoxic/hypercarbic respiratory failure due to pneumonia. She was then sstepped down to [facility] 11/22/22. Hospital cousre by problem: # acute/chronic hypoxic/hypercarbic respiratory failure - Got 1 dose acetazolamide in ICU and was on continuous BiPAP for 24h + HFNC. Now maintained on BiPAP at night and for naps # ESBL UTI - Klebsiella pneumoniae ESBL for which she got meropenem 11/23-11/26/22 and was discharged on 2 doses of PO fosfomycin in consultation with ID. # nosocomial pneumonia - on levofloxacin 11/20-11/23, then meropenem as above. Treated with doxycycline 11/22-11/26/22 and discharged on 2 more days of doxycycline. # pressure injury of buttocks + R heel, stage 2 - Wound Care consulted, recommended: extra thick protective cream and Alevyn foam dressings to areas of pressure injury buttocks and right heel.? Pressure relief with frequent repositioning and low air loss mattress. She was discharged back to [facility]. Time Spent with Patient Time attestation: Total time managing care of this patient today 47.1 ____ minutes. Discharge coordination time: Greater than 30 minutes Quality: Safe Use of Opioids Does Pt have an Active Cancer Diagnosis on the Problem List?: No Quality: Stroke Does the patient have a stroke diagnosis?: No Physical Exam Vital Signs: Vital Signs: Last Vital Signs Temp 97.6 F 11/26/22 07:26 Pulse 87 11/26/22 07:39 Resp 18 11/26/22 07:39 BP 169/83 H 11/26/22 07:26 Pulse Ox 97 11/26/22 07:26 O2 Del Method 11/26/22 07:26 O2 Flow Rate 40 11/26/22 07:26 FiO2 30 11/23/22 03:45 Oxygen Flow Rate 4 11/20/22 00:24 BMI result Body Mass Index 54.7 Gen: in no acute distress HEENT: sclera anicteric, moist mucus membranes Neck: supple Lungs: dimimished bilaterally Heart: regular rate and rhythm, no murmurs Abd: soft, non-tender, non-distended, morbidly obese Ext: no edema Skin: warm/well-perfused Neuro: alert and oriented x3, no focal findings Psych: appropriate affect ? DS: Data Data Completed and Pending Completed studies during hospitalization [Text1]: Laboratory Results WBC 7.5 X10*3/uL (4.8-10.8) 11/24/22 06:56 RBC 4.01 X10*6/uL (4.20-5.50) L 11/24/22 06:56 Hgb 11.2 g/dl (12.0-16.0) L 11/24/22 06:56 Hct 36.3 % (37.0-47.0) L 11/24/22 06:56 MCV 90.5 fL (80.0-98.0) 11/24/22 06:56 MCH 27.9 pg (27.0-33.0) 11/24/22 06:56 MCHC 30.9 g/dl (31.0-35.0) L 11/24/22 06:56 RDW 14.1 % (11.0-16.0) 11/24/22 06:56 Plt Count 164 X10*3/uL (160-400) 11/24/22 06:56 MPV 9.7 fL (9.4-12.3) 11/24/22 06:56 Immature Gran % (Auto) 0.4 % (0.0-0.4) 11/23/22 06:39 Neut % (Auto) 68.8 % (45-73) 11/23/22 06:39 Lymph % (Auto) 21.7 % (20-40) 11/23/22 06:39 Kingman % (Auto) 7.4 % (2-11) 11/23/22 06:39 Eos % (Auto) 1.5 % (0-4) 11/23/22 06:39 Baso % (Auto) 0.2 % (0-2) 11/23/22 06:39 Lymph # (Auto) 1.8 X10*3/uL (1.2-4.9) 11/23/22 06:39 Kingman # (Auto) 0.6 X10*3/uL (0.1-1.2) 11/23/22 06:39 Eos # (Auto) 0.1 X10*3/uL (0.0-0.4) 11/23/22 06:39 Baso # (Auto) 0.0 X10*3/uL (0.0-0.2) 11/23/22 06:39 Abs Immat Gran (auto) 0.03 X10*3/uL (0.00-0.03) 11/23/22 06:39 Absolute Neuts (auto) 5.6 x10*3/uL (2.0-8.3) 11/23/22 06:39 Absolute Nucleated RBC 0.000 X10*3/uL (0.0-0.012) 11/24/22 06:56 Nucleated RBC % (auto) 0.0 /100WBC (0.0-0.2) 11/24/22 06:56 O2 Saturation 92.0 % 11/21/22 09:13 ABG pH at Pt Temp 7.52 (7.35-7.45) H 11/21/22 09:13 ABG pH (Temp Correct) Cancelled 11/20/22 06:40 ABG pCO2 at Pt Temp 52 mmHg (32-45) H 11/21/22 09:13 ABG pCO2 (Temp Corrct Cancelled 11/20/22 06:40 ABG pO2 at Pt Temp 67 mmHg (83-108) L 11/21/22 09:13 ABG pO2 (Temp Correct Cancelled 11/20/22 06:40 ABG HCO3 43 mmol/L (22-26) H 11/21/22 09:13 ABG Base Excess (Actual) 17.9 mmol/L 11/21/22 09:13 VBG pH 7.40 (7.32-7.43) 11/24/22 06:58 VBG pCO2 46 mmHg 11/24/22 06:58 VBG pO2 84 mmHg 11/24/22 06:58 VBG HCO3 29 mmol/L (22-26) H 11/24/22 06:58 VBG O2 Saturation 98.0 % 11/24/22 06:58 VBG Base Excess 3.7 mmol/L 11/24/22 06:58 Sodium 140 mmol/L (135-145) 11/24/22 06:56 Potassium 4.1 mmol/L (3.3-5.1) 11/24/22 06:56 Chloride 102 mmol/L (96-108) 11/24/22 06:56 Carbon Dioxide 27 mmol/L (22-29) 11/24/22 06:56 Anion Gap 15 (12-20) 11/24/22 06:56 BUN 21 mg/dL (9-16) H 11/24/22 06:56 Creatinine 0.80 mg/dL (0.5-1.4) 11/24/22 06:56 Estim Creat Clear Calc 126.9 11/24/22 06:56 Estimated GFR > 60 11/24/22 06:56 POC Glucose 201 mg/dL (60-115) H 11/26/22 07:28 Random Glucose 186 mg/dL (60-115) H 11/24/22 06:56 Fasting Glucose 167 mg/dL (60-99) H 11/23/22 06:39 Lactic Acid 0.6 mmol/L (0.5-2.0) 11/20/22 13:26 Calcium 8.1 mg/dL (8.4-10.2) L 11/24/22 06:56 Phosphorus 3.0 mg/dL (2.7-4.5) 11/22/22 04:45 Magnesium 1.7 mg/dL (1.6-2.6) 11/22/22 04:45 Total Bilirubin 0.6 mg/dL (0.0-1.0) 11/23/22 06:39 AST 13 U/L (5-31) 11/23/22 06:39 ALT 12 U/L (0-31) 11/23/22 06:39 Alkaline Phosphatase 61 U/L (39-117) 11/23/22 06:39 B-Natriuretic Peptide 20 pg/mL (<100) 11/20/22 07:48 Total Protein 6.0 g/dL (6.5-8.0) L 11/23/22 06:39 Albumin 3.2 g/dL (3.5-5.0) L 11/23/22 06:39 Procalcitonin 0.04 ng/mL 11/23/22 06:39 Urine Color Yellow 11/20/22 16:44 Urine Appearance Clear 11/20/22 16:44 Urine pH 8.0 (5.0-9.0) 11/20/22 16:44 Ur Specific Sweeny 1.025 (1.005-1.025) 11/20/22 16:44 Urine Protein 30 (1+) mg/dL (Neg-Trace) H 11/20/22 16:44 Urine Glucose (UA) 500 mg/dL (Negative) H 11/20/22 16:44 Urine Ketones Trace mg/dL (Negative) 11/20/22 16:44 Urine Blood Negative (Negative) 11/20/22 16:44 Urine Nitrite Positive (Negative) H 11/20/22 16:44 Ur Leukocyte Esterase Trace (Negative) H 11/20/22 16:44 Urine RBC 0-2 /HPF (0-2) 11/20/22 16:44 Urine WBC 11-20 /HPF (0-5) H 11/20/22 16:44 Ur Squamous Epith Cells 0-2 /HPF (0-2) 11/20/22 16:44 Urine Bacteria 4+ (None Seen) 11/20/22 16:44 Hyaline Casts 0-2 /LPF (0-2) 11/20/22 16:44 COVID-19 (LIS) Negative (Negative) 11/20/22 00:43 COVID-19 Clin Com See Note 11/20/22 00:43 Impressions Chest X-Ray 11/20/22 06:24 IMPRESSION: * Low lung volumes and bilateral platelike atelectasis. * No discrete consolidation. Chest CT 11/20/22 11:31 IMPRESSION: Worsening left lung. Infiltrate/atelectasis developing in the lingula with some worsening at the left base of previously documented opacities. On the right persistent upper lobe opacity which is showing some worsening. This may be worsening dense infiltrate. Underlying lung lesion of course could not be excluded. Attention to follow-up. Improved caliber of the airway is noted Other findings are as noted above Labs on day of discharge: Laboratory Results - last 24 hr 11/25/22 11/25/22 11/25/22 11:11 16:29 19:56 POC Glucose 227 H 351 H* 314 H 11/26/22 07:28 POC Glucose 201 H Discharge Plan Discharge Anticipated Discharge Date/Time: 03/14/23 11:07 Patient Disposition: Xfer SNF Discharge Diagnosis: acute/chronic hypoxic/hypercarbic respiratory failure, pneumonia, ESBL UTI, pressure injury of buttocks + R heel, stage 2 Referrals: [facility] [Outside] - 1 Week Darlene Bal MD [Primary Care Provider] - 1 Week Discharge Medications: New fosfomycin tromethamine 3 gram packet 1 packet PO Q3D Qty: 2 0RF doxycycline monohydrate 100 mg tablet 100 mg PO BID Qty: 4 0RF Continued furosemide 40 mg Tablet 40 mg PO DAILY Qty: 30 0RF Protocol: Hold for SBP< HOLD for SBP < : 90 ipratropium-albuterol 0.5 mg-3 mg(2.5 mg base)/3 mL Solution For Nebulization 3 ml INHALATION TID potassium chloride 10 mEq Tablet Extended Release 10 meq PO DAILY Culturelle 10 billion cell Capsule 1 cap PO BID bupropion HCl 150 mg tablet extended release 24 hr 1 tab PO DAILY Rx Instructions: take with 300mg; tdd 450mg insulin glargine 100 unit/mL Solution 52 unit SUBCUT DAILY magnesium hydroxide [Milk of Magnesia] 400 mg/5 mL Suspension 30 ml PO DAILY PRN (Reason: Constipation) Fleet Enema 19-7 gram/118 mL Enema 118 ml UT DAILY PRN (Reason: Constipation) fluticasone propion-salmeterol [AirDuo RespiClick] 113-14 mcg/actuation aerosol powdr breath activated 1 inh inhalation DAILY Rx Instructions: rinse mouth after use atorvastatin 80 mg Tablet 80 mg PO BEDTIME sennosides [senna] 8.6 mg Tablet 16.2 mg PO DAILY PRN (Reason: Constipation) acetaminophen 325 mg Tablet 650 mg PO Q4H PRN (Reason: Fever Or Pain) polyethylene glycol 3350 [Miralax] 17 gram Powder In Packet 17 g PO DAILY PRN (Reason: Constipation) tizanidine 4 mg Tablet 4 mg PO BEDTIME PRN (Reason: Muscle Spasm) enalapril maleate 20 mg Tablet 20 mg PO DAILY sertraline 100 mg Tablet 200 mg PO DAILY melatonin 3 mg Tablet 3 mg PO BEDTIME ferrous sulfate 325 mg (65 mg iron) Tablet 325 mg PO DAILY gabapentin 300 mg Capsule 300 mg PO DAILY@1200 gabapentin 300 mg Capsule 600 mg PO BID insulin lispro 100 unit/mL Insulin Pen See Protocol SUBCUT QIDACHS Protocol: Insulin Correction Scale Less than or equal to 110 ---- Give (units): 0 111 to 150 Give (units): 0 151 to 200 Give (units): 2 201 to 250 Give (units): 4 251 to 300 Give (units): 6 301 to 350 Give (units): 8 Greater than 350 Give (units): 10 Call MD if Blood Glucose > : 350 Rx Instructions: SLIDING SCALE amlodipine 5 mg Tablet 5 mg PO DAILY 30 Days Qty: 30 0RF Protocol: Hold for SBP< HOLD for SBP < : 90 aspirin 81 mg Tablet,Chewable 81 mg PO DAILY megestrol 400 mg/10 mL (10 mL) Suspension 400 mg PO TID bisacodyl 10 mg suppository 10 mg UT DAILY PRN (Reason: Constipation) magnesium citrate [Citrate of Magnesia] Solution 150 ml PO DAILY PRN (Reason: Constipation) bupropion HCl 300 mg tablet extended release 24 hr 300 mg PO DAILY Rx Instructions: take with 150mg dose; tdd 450mg insulin lispro 100 unit/mL solution 5 unit subcut TIDA Discharge Orders: Discharge Order (Routine); Ordered 11/26/22 Ordered By: Gopal Patel Diet: Diabetic diet Activity on Discharge: As tolerated Stand Alone Forms: Patient Portal Discharge page Care Plan Goals: pulmonary health treatment of pneumonia and UTI Health Concerns: acute/chronic hypoxic/hypercarbic respiratory failure - use BiPAP overnight and for naps, 16/5 cm H20, fiO2 40% - follow up with [facility] Pulmonology pneumonia - doxycycline 100 mg twice daily for 2 more days ESBL UTI - fosfomycin 3 g every 3 days for 2 doses stage 2 pressure injury of buttocks and R heel - extra thick protective cream and Alevyn foam dressings to areas of pressure injury buttocks and right heel.? Pressure relief with frequent repositioning and low air loss mattress. Plan of Treatment: as above Assessment: See Discharge Summary.
[2022-11-26 11:42] LABS: Glucose, Whole Blood 281 mg/dL (60-115)
[2022-11-26 12:15] LABS: COVID-19 Test Negative (Negative); IDNOW Serial# 9DB6401D
[2022-11-26] MEDS: Gabapentin 300 MG CAPSULE PO (12:18)
== END 2022-11-26 13:15 | disposition skilled nursing facility (03) | DRG 193 ==
LOC: HO.ED 07:00 → HO.EDOVER 13:30 → HO.ICU 13:32 → HO.IMC 11-22 09:50
PROVIDERS: Emergency Medicine Emergency Medical Services; Hospitalist; Nurse Practitioner Family; Admitting Provider Internal Medicine Cardiovascular Disease; Emergency Provider Internal Medicine; PCP Internal Medicine; Visit Provider Family Medicine
DX: J18.9 Pneumonia, unspecified organism (principal); G93.41 Metabolic encephalopathy; J96.21 Acute and chronic respiratory failure with hypoxia; J96.22 Acute and chronic respiratory failure with hypercapnia; E66.2 Morbid (severe) obesity with alveolar hypoventilation; Z68.43 Body mass index [BMI] 50.0-59.9, adult; I42.2 Other hypertrophic cardiomyopathy; I44.2 Atrioventricular block, complete; N39.0 Urinary tract infection, site not specified; Z16.12 Extended spectrum beta lactamase (ESBL) resistance; Z95.0 Presence of cardiac pacemaker; I49.5 Sick sinus syndrome; E11.51 Type 2 diabetes mellitus with diabetic peripheral angiopathy without gangrene; L89.612 Pressure ulcer of right heel, stage 2; B96.1 Klebsiella pneumoniae [K. pneumoniae] as the cause of diseases classified elsewhere; L89.302 Pressure ulcer of unspecified buttock, stage 2; E78.5 Hyperlipidemia, unspecified; Z20.822 Contact with and (suspected) exposure to COVID-19; Z86.711 Personal history of pulmonary embolism; Z87.891 Personal history of nicotine dependence; Z91.199 Patient's noncompliance with other medical treatment and regimen due to unspecified reason; Z91.040 Latex allergy status; Z79.4 Long term (current) use of insulin; Z79.51 Long term (current) use of inhaled steroids; Z79.82 Long term (current) use of aspirin; Z79.899 Other long term (current) drug therapy
CPT/HCPCS: 36415; 36600; 71045; 71250; 80048; 80053; 81001; 81003; 82040; 82803; 82947; 83605; 83735; 83880; 84100; 84145; 85025; 85027; 87040; 87086; 87088; 87147; 87186; 87205; 87635; 93005; 94640; 94660; 99285; C1758; J0692; J1643; J1956; J2185; J2270; J2930

== ENCOUNTER 2022-12-27 09:42 | Inpatient (IN) | payer OTHER, MEDICARE, MEDICAID, SELFPAY ==
[2022-12-27] VITALS (12 sets, daily range): BP systolic 144–186; BP diastolic 62–150; PULSE 63–100; RESP 14–26; TEMP 36.6–36.7; O2SAT 84–94; BMI 51.6
--- NOTE | ~2022-12-27 | XR_ITS ---
EXAMINATION: XR CHEST CLINICAL INFORMATION: Chest pain COMPARISON: Previous chest x-ray November 2022 TECHNIQUE: Frontal view of the chest was obtained. FINDINGS: The lung volumes are low. There is a left subclavian dual chamber pacemaker that appears unchanged. The cardiac and mediastinal contours are stable. There is bibasilar atelectasis or small infiltrates, left greater than right. This is similar to previous exam. There is no pleural effusion. There are degenerative changes of the spine. XR/XR chest 1V IMPRESSION: Low lung volumes and bibasilar atelectasis/small infiltrates, left greater than right, similar to March exam.
--- NOTE | ~2022-12-27 | US_ITS ---
EXAMINATION: US VENOUS ULTRASOUND WITH DOPPLER LOWER EXTREMITY, BILATERAL CLINICAL INFORMATION: Redness and swelling COMPARISON: Previous exam from 2021 TECHNIQUE: Ultrasound of the deep veins is performed from the hip to the calf with compression sonography and color and pulse Doppler assessment. Spectral analysis with color-flow imaging is performed. FINDINGS: RIGHT: There is normal venous compression and respiratory variation and augmented flow. The visualized common femoral vein, superficial femoral vein, profunda femoral vein, popliteal vein, and the trifurcation region shows no evidence of deep venous thrombosis. There is no significant popliteal fossa cyst. LEFT: There is normal venous compression and respiratory variation and augmented flow. The visualized common femoral vein, superficial femoral vein, profunda femoral vein, popliteal vein, and the trifurcation region shows no evidence of deep venous thrombosis. There is no significant popliteal fossa cyst. US/US venous duplex LE BI IMPRESSION: No DVT demonstrated in the bilateral lower extremity.
--- NOTE | 2022-12-27 09:48 | ECG_ITS ---
Test Reason : SOB Blood Pressure : / mmHG Vent. Rate : 076 BPM Atrial Rate : 000 BPM P-R Int : 000 ms QRS Dur : 160 ms QT Int : 424 ms P-R-T Axes : 000 -27 100 degrees QTc Int : 477 ms Poor data quality Undetermined rhythm Left bundle branch block Abnormal ECG When compared with ECG of 20-NOV-2022 00:39, Poor data quality in current ECG precludes serial comparison Repeat EKG Referred By: Juan Carlos Sharp Electronically Signed By:MAREN VIDALES MD
--- NOTE | 2022-12-27 09:51 | ED_ITS ---
HPI - SOB/Dyspnea General Chief Complaint: Upper Respiratory Symptoms Stated Complaint: From SNF, Low O2 at facility per EMS Time Seen by Provider: 12/27/22 09:47 Source: patient Mode of arrival: EMS History of Present Illness HPI Narrative: This is 62 years old of female with history of COPD on oxygen 5 L baseline, history of respiratory failure with hypercapnia, type 2 diabetes, morbid obesity brought in because found to be hypoxic at the nursing facility. On 5 L she was about 84%. She arrived awake and alert on high-flow oxygen MD elicited complaint: shortness of breath Pertinent past history: COPD Onset (ago): hour(s) (5) Severity: mild Exacerbating factors: nothing Relieving factors: nothing Known history of: COPD Related Data Home oxygen amount: other (5 liters) Home Medications Medication Instructions Recorded Confirmed acetaminophen 325 mg tablet 650 mg PO Q4H PRN Fever Or Pain 11/18/21 12/27/22 atorvastatin 80 mg tablet 80 mg PO BEDTIME 11/18/21 12/27/22 enalapril maleate 20 mg tablet 20 mg PO DAILY 11/18/21 12/27/22 ferrous sulfate 325 mg (65 mg 325 mg PO DAILY 11/18/21 12/27/22 iron) tablet gabapentin 300 mg capsule 300 mg PO DAILY@1200 11/18/21 12/27/22 gabapentin 300 mg capsule 600 mg PO BID 11/18/21 12/27/22 insulin lispro 100 unit/mL See Protocol subcut QIDACHS 11/18/21 12/27/22 subcutaneous pen melatonin 3 mg tablet 3 mg PO BEDTIME 11/18/21 12/27/22 polyethylene glycol 3350 17 gram 17 g PO DAILY PRN Constipation 11/18/21 12/27/22 oral powder packet (Miralax) sennosides 8.6 mg tablet (senna) 16.2 mg PO DAILY PRN Constipation 11/18/21 12/27/22 sertraline 100 mg tablet 200 mg PO DAILY 11/18/21 12/27/22 tizanidine 4 mg tablet 4 mg PO BEDTIME PRN Muscle Spasm 11/18/21 12/27/22 aspirin 81 mg chewable tablet 81 mg PO DAILY 01/05/22 12/27/22 megestrol 400 mg/10 mL (10 mL) 400 mg PO TID 01/05/22 12/27/22 oral suspension bupropion HCl 300 mg 24 hr tablet, 300 mg PO DAILY 04/09/22 12/27/22 extended release insulin lispro 100 unit/mL 5 unit subcut TIDAC 04/09/22 12/27/22 subcutaneous solution Lactobacillus rhamnosus GG 10 1 cap PO BID 10/09/22 12/27/22 billion cell capsule (Culturelle) bupropion HCl 150 mg 24 hr tablet, 1 tab PO DAILY 10/09/22 12/27/22 extended release ipratropium 0.5 mg-albuterol 3 mg 3 ml inhalation TID 10/09/22 12/27/22 (2.5 mg base)/3 mL nebulization soln potassium chloride 10 mEq 10 meq PO DAILY 10/09/22 12/27/22 tablet,extended release bisacodyl 10 mg rectal suppository 10 mg TN DAILY PRN Constipation 10/21/22 12/27/22 magnesium citrate (Citrate of 150 ml PO DAILY PRN Constipation 10/21/22 12/27/22 Magnesia oral) fluticasone 113 mcg-salmeterol 14 1 inh inhalation DAILY 11/09/22 12/27/22 mcg/actuation breath activated powdr (AirDuo RespiClick) insulin glargine 100 unit/mL 57 unit subcut DAILY 11/09/22 12/27/22 subcutaneous solution magnesium hydroxide 400 mg/5 mL 30 ml PO DAILY PRN Constipation 11/09/22 12/27/22 oral suspension (Milk of Magnesia) sodium phosphates 19 gram-7 118 ml TN DAILY PRN Constipation 11/09/22 12/27/22 gram/118 mL enema (Fleet Enema) metformin 500 mg tablet 500 mg PO BID 12/27/22 12/27/22 semaglutide 0.25 mg or 0.5 mg (2 0.25 mg subcut WE 12/27/22 12/27/22 mg/3 mL) subcutaneous pen injector (Ozempic) Previous Rx's Medication Instructions Recorded amlodipine 5 mg tablet 5 mg PO DAILY 30 days #30 tabs 11/26/21 furosemide 40 mg tablet 40 mg PO DAILY #30 tabs 04/05/22 Allergies Allergy/AdvReac Type Severity Reaction Status Date / Time latex Allergy Unknown Unknown Verified 10/21/22 13:48 adhesive tape AdvReac Unknown Unknown Verified 10/21/22 13:48 bupropion [From Wellbutrin] AdvReac Unknown Unknown Verified 10/21/22 13:48 ibuprofen AdvReac Unknown Unknown Verified 10/21/22 13:48 Review of Systems Constitutional: Constitutional: Reports no additional constitutional complaints Cardiovascular: Cardiovascular: Reports no additional cardiovascular complaints Respiratory: Respiratory: Reports no additional respiratory complaints [facility] Past Medical History Medical History Acute and chronic respiratory failure with hypercapnia Acute and chronic respiratory failure with hypercapnia Acute on chronic respiratory failure with hypoxia and hypercapnia Anemia Arthritis Atelectasis of both lungs CHF (congestive heart failure) Clostridium difficile infection Depression Diabetes mellitus, type 2 Diabetic ulcer of foot associated with diabetes mellitus due to underlying condition, with fat layer exposed Heart block AV third degree Hypertension Hypertrophic nonobstructive cardiomyopathy Hypoventilation associated with obesity syndrome Metabolic encephalopathy Morbid obesity Morbid obesity Morbid obesity Obesity hypoventilation syndrome SMILEY (obstructive sleep apnea) PAD (peripheral artery disease) Presence of permanent cardiac pacemaker Presence of permanent cardiac pacemaker Pulmonary embolism Respiratory failure Respiratory failure with hypoxia and hypercapnia Sick sinus syndrome Urinary tract infection due to ESBL Klebsiella Surgical History History of total knee replacement Social History Social History Household Members: Spouse Housing: House Housing Other:: rehab facility Are you a primary primary care pediatrician to a significant other at home: No Do you presently have visiting nurse or other home services: No Unable to assess alcohol history related to: Unknown Alcohol intake: never Patient Tobacco Use Status: Former Tobacco user Quit Date: 1999 Tobacco use type: Cigarette Cigarette Packs Per Day: 20 Cigarettes Per Day: 400.0 Years Smoked: 20 Smoked in Last 30 Days: No e-Cigarette/Vaping Use: Never Used Second Hand Smoke Exposure: No Use of substances other than those prescribed or required for medical reasons: No Substance Use Type: Unknown Currently Displaying Signs/Symptoms of Drug Intoxication Withdrawal: No Any prior treatment program specific to substance use: No Have you been hit, kicked, punched, or otherwise hurt by someone within the past year? If so, by whom?: No Do you feel safe in your current relationship?: Yes Is there a partner from a previous relationship who is making you feel unsafe now?: No Are you made to feel afraid or neglected: No Spiritual Healthcare Practices: n/a Muslim Healthcare Practices: n/a Cultural Healthcare Practices: n/a Advance Directives: No Do you have thoughts of harming others: None Do you have a plan to hurt others: No Plan Recently lost weight without trying: No Nutrition Risks: No Nutritional Risk Patient : No : No Poor oral hygiene: No service: No Current occupational status: disabled Physical Exam Vital Signs: Vital Signs: Last Vital Signs Temp 98 F 12/27/22 09:48 Pulse 90 12/27/22 16:09 Resp 25 H 12/27/22 16:09 BP 166/88 H 12/27/22 11:59 Pulse Ox 93 12/27/22 11:59 O2 Del Method BiPAP 12/27/22 11:59 O2 Flow Rate 17 12/27/22 11:38 FiO2 45 12/27/22 11:59 BMI result Body Mass Index 51.6 Const: General: cooperative, no acute distress and well developed Nutritional Appearance: well nourished Orientation/consciousness: patient oriented x3 HEENT: Head: Yes normal to inspection General nose exam: Normal external nose present Face and sinus: Yes normal facial exam Mouth: Normal oral and palatal mucosa present Throat: Yes posterior oropharynx normal Neck: Neck: Yes normal visual inspection and Yes full ROM Thyroid: Thyroid normal Chest: Chest palpation & inspection: normal inspection of the chest Resp: Effort & Inspection: normal respiratory effort Auscultation: rhonchi Cardio: Jugular venous distension: no JVD Rate: regular rate GI: Inspection: Yes normal to inspection Palpation (GI): Soft to palpation : General: Yes no CVA tenderness Back/Spine/Pelvis: Back: no CVA tenderness Skin: General skin exam: no rashes or lesions noted Neuro: General: patient oriented x3 Medications Administered Generic Name Dose Route Start Last Admin Trade Name Freq PRN Reason Stop Dose Admin Albuterol/Ipratropium 3 ml 12/27/22 16:00 12/27/22 16:06 Albuterol/Iprat 2.5/0.5mg 3 Ml Ampul.Neb INHALE 3 ml RQ4H WHILE AWAKE ROSSY Administration Albuterol/Ipratropium 3 ml 12/27/22 15:00 12/27/22 16:06 Albuterol/Iprat 2.5/0.5mg 3 Ml Ampul.Neb INHALE Not Given TID ROSSY Enoxaparin Sodium 40 mg 12/27/22 13:00 12/27/22 15:16 Enoxaparin Sodium 40 Mg/0.4 Ml Syringe SUBCUT 40 mg Q24H ROSSY Administration Megestrol Acetate 400 mg 12/27/22 15:00 12/27/22 16:21 Megestrol Acetate 400 Mg/10 Ml Oral.Susp PO Not Given TID ROSSY Discontinued Medications Generic Name Dose Route Start Last Admin Trade Name Freq PRN Reason Stop Dose Admin Albuterol/Ipratropium 3 ml 12/27/22 11:31 12/27/22 11:49 Albuterol/Iprat 2.5/0.5mg 3 Ml Ampul.Neb INHALE 12/27/22 11:32 3 ml ONCE ONE Administration Methylprednisolone Sodium Succinate 125 mg 12/27/22 10:20 12/27/22 10:37 Methylprednisolone Sod Succ 125 Mg/2 Ml Vial IVPUSH 12/27/22 10:21 125 mg ONCE ONE Administration Sodium Zirconium Cyclosilicate 10 gm 12/27/22 12:03 12/27/22 15:16 Sodium Zirconium Cyclosilicate 10 Gm Powd.Pack PO 12/27/22 12:04 10 gm ONCE ONE Administration Medical Decision Making Medical Decision Making [facility] Narrative: Patient presented with COPD exacerbation requiring BiPAP she will be admitted to telemetry Differential Diagnosis Differential Diagnoses: The differential diagnosis associated with the presentation includes Admission/Observation Consideration of admission/observation: Escalation of care including admission/observation considered Consult Healthcare Provider Management of the patient was discussed with: Hospitalist Lab Data [facility] Lab Attestation statement: I reviewed the patient's lab results. 12/27/22 10:31 12/27/22 10:31 Labs: Lab Results 12/27/22 12/27/22 12/27/22 Range/Units 10:31 10:31 10:31 WBC 8.3 (4.8-10.8) X10*3/uL RBC 4.40 (4.20-5.50) X10*6/uL Hgb 12.4 (12.0-16.0) g/dl Hct 42.1 (37.0-47.0) % MCV 95.7 (80.0-98.0) fL MCH 28.2 (27.0-33.0) pg MCHC 29.5 L (31.0-35.0) g/dl RDW 14.3 (11.0-16.0) % Plt Count 202 (160-400) X10*3/uL MPV 10.1 (9.4-12.3) fL Immature Gran % (Auto) 0.4 (0.0-0.4) % Neut % (Auto) 69.2 (45-73) % Lymph % (Auto) 20.6 (20-40) % [place] % (Auto) 7.7 (2-11) % Eos % (Auto) 1.7 (0-4) % Baso % (Auto) 0.4 (0-2) % Lymph # (Auto) 1.7 (1.2-4.9) X10*3/uL [place] # (Auto) 0.6 (0.1-1.2) X10*3/uL Eos # (Auto) 0.1 (0.0-0.4) X10*3/uL Baso # (Auto) 0.0 (0.0-0.2) X10*3/uL Abs Immat Gran (auto) 0.03 (0.00-0.03) X10*3/uL Absolute Neuts (auto) 5.8 (2.0-8.3) x10*3/uL Absolute Nucleated RBC 0.000 (0.0-0.012) X10*3/uL Nucleated RBC % (auto) 0.0 (0.0-0.2) /100WBC VBG pH (7.32-7.43) VBG pCO2 mmHg VBG pO2 mmHg VBG HCO3 (22-26) mmol/L VBG O2 Saturation % VBG Base Excess mmol/L Sodium 142 (135-145) mmol/L Potassium 5.7 H D (3.3-5.1) mmol/L Chloride 95 L (96-108) mmol/L Carbon Dioxide 38 H (22-29) mmol/L Anion Gap 15 (12-20) BUN 34 H (9-16) mg/dL Creatinine 1.20 (0.5-1.4) mg/dL Estim Creat Clear Calc 80.6 Estimated GFR 45 Random Glucose 278 H (60-115) mg/dL Calcium 8.8 D (8.4-10.2) mg/dL Total Bilirubin 0.3 (0.0-1.0) mg/dL AST 10 (5-31) U/L ALT 17 (0-31) U/L Alkaline Phosphatase 77 (39-117) U/L Troponin I High Sens 10.5 (<3.5-17.0) ng/L Total Protein 7.0 (6.5-8.0) g/dL Albumin 3.6 (3.5-5.0) g/dL 12/27/22 Range/Units 10:34 WBC (4.8-10.8) X10*3/uL RBC (4.20-5.50) X10*6/uL Hgb (12.0-16.0) g/dl Hct (37.0-47.0) % MCV (80.0-98.0) fL MCH (27.0-33.0) pg MCHC (31.0-35.0) g/dl RDW (11.0-16.0) % Plt Count (160-400) X10*3/uL MPV (9.4-12.3) fL Immature Gran % (Auto) (0.0-0.4) % Neut % (Auto) (45-73) % Lymph % (Auto) (20-40) % [place] % (Auto) (2-11) % Eos % (Auto) (0-4) % Baso % (Auto) (0-2) % Lymph # (Auto) (1.2-4.9) X10*3/uL [place] # (Auto) (0.1-1.2) X10*3/uL Eos # (Auto) (0.0-0.4) X10*3/uL Baso # (Auto) (0.0-0.2) X10*3/uL Abs Immat Gran (auto) (0.00-0.03) X10*3/uL Absolute Neuts (auto) (2.0-8.3) x10*3/uL Absolute Nucleated RBC (0.0-0.012) X10*3/uL Nucleated RBC % (auto) (0.0-0.2) /100WBC VBG pH 7.54 H (7.32-7.43) VBG pCO2 52 mmHg VBG pO2 92 mmHg VBG HCO3 46 H (22-26) mmol/L VBG O2 Saturation 99.0 % VBG Base Excess 20.4 mmol/L Sodium (135-145) mmol/L Potassium (3.3-5.1) mmol/L Chloride (96-108) mmol/L Carbon Dioxide (22-29) mmol/L Anion Gap (12-20) BUN (9-16) mg/dL Creatinine (0.5-1.4) mg/dL Estim Creat Clear Calc Estimated GFR Random Glucose (60-115) mg/dL Calcium (8.4-10.2) mg/dL Total Bilirubin (0.0-1.0) mg/dL AST (5-31) U/L ALT (0-31) U/L Alkaline Phosphatase (39-117) U/L Troponin I High Sens (<3.5-17.0) ng/L Total Protein (6.5-8.0) g/dL Albumin (3.5-5.0) g/dL Independent Interpretation I performed an independent interpretation of an: Plain X-Ray Radiology Impression Discussion of test interpretation with radiology: I have reviewed the radiolo gist's reading. Radiologist Impression: TECHNIQUE: Frontal view of the chest was obtained. FINDINGS: The lung volumes are low. There is a left subclavian dual chamber pacemaker that appears unchanged. The cardiac and mediastinal contours are stable. There is bibasilar atelectasis or small infiltrates, left greater than right. This is similar to previous exam. There is no pleural effusion. There are degenerative changes of the spine. XR/XR chest 1V IMPRESSION: Low lung volumes and bibasilar atelectasis/small infiltrates, left greater than right, similar to November exam. ? Dictated By: Nadine White MD Critical Care Time Critical Care Time Critical Care Time: Yes Total Critical Care Time: 60 Attestation: bipap/ Discharge Plan Discharge Clinical Impression: COPD exacerbation Patient Disposition: Home, Self-Care Interventions: ED Discharge Assessment Last Done: 12/27/22 14:25 Discharge Date/Time: 12/27/22 14:26
[2022-12-27] MEDS: methylPREDNISolone Sod Succ 125 MG/2 ML VIAL IVPUSH (10:37)
[2022-12-27 10:38] LABS: MANUAL DIFF FLAG NO
[2022-12-27 10:39] LABS: Basophils Percent Auto 0.4 % (0-2); Eosinophils Absolute Auto 0.1 X10*3/uL (0.0-0.4); Eosinophils Percent Auto 1.7 % (0-4); Hematocrit 42.1 % (37.0-47.0); Hemoglobin 12.4 g/dl (12.0-16.0); Imm Gran Abs Auto 0.03 X10*3/uL (0.00-0.03); Imm Gran Pct Auto 0.4 % (0.0-0.4); Lymphocytes Absolute Auto 1.7 X10*3/uL (1.2-4.9); Lymphocytes Percent Auto 20.6 % (20-40); Mean Corpuscular HGB Conc 29.5 g/dl (31.0-35.0); Mean Corpuscular Hemoglobin 28.2 pg (27.0-33.0); Mean Corpuscular Volume 95.7 fL (80.0-98.0); Mean Platelet Volume 10.1 fL (9.4-12.3); Monocytes Absolute Auto 0.6 X10*3/uL (0.1-1.2); Monocytes Percent Auto 7.7 % (2-11); Neutrophils Absolute Auto 5.8 x10*3/uL (2.0-8.3); Neutrophils Percent Auto 69.2 % (45-73); Platelet Count 202 X10*3/uL (160-400); Red Cell Distribution Width 14.3 % (11.0-16.0); White Blood Count 8.3 X10*3/uL (4.8-10.8)
[2022-12-27 10:44] LABS: VBG Base Excess 20.4 mmol/L; VBG HCO3 46 mmol/L (22-26); VBG pCO2 52 mmHg; VBG pH 7.54 (7.32-7.43); VBG pO2 92 mmHg
[2022-12-27 10:46] LABS: Venous Blood Gas Refer to POC result
[2022-12-27 11:02] LABS: Alanine Aminotransferase 17 U/L (0-31); Albumin Level 3.6 g/dL (3.5-5.0); Alkaline Phosphatase 77 U/L (39-117); Anion Gap 15 (12-20); Aspartate Amino Transferase 10 U/L (5-31); Bilirubin Total 0.3 mg/dL (0.0-1.0); Blood Urea Nitrogen 34 mg/dL (9-16); Calcium 8.8 mg/dL (8.4-10.2); Carbon Dioxide 38 mmol/L (22-29); Chloride 95 mmol/L (96-108); Creatinine Clr Calc Pharmacy 80.6; Estimated Glomerular Filt Rate 45; Glucose Random 278 mg/dL (60-115); Potassium 5.7 mmol/L (3.3-5.1); Sodium 142 mmol/L (135-145)
[2022-12-27 11:13] LABS: Troponin-I High Sensitivity 10.5 ng/L (<3.5-17.0)
--- NOTE | 2022-12-27 11:48 | PM.IMHP ---
History of Present Illness Date of Service: 12/27/22 Attending physician on admission: Alejandro Livingston Chief Complaint: SOB Pt is a 62-year-old female with a PMH significant for?COPD on 5L home O2, hx of respiratory failure with hypercapnia, obesity hypoventilation syndrome, insulin-dependent diabetes, HTN, HLD, decubitus ulcer, morbid obesity, and hx of ESBL UTI who presents to the ED from [facility] after being found to be hypoxic by staff, satting at 84% on 5 L NC. Pt states she has been compliant with her supplemental O2 during the day and wearing her BiPAP at night. Complains of SOB but no chest pain/pressure, palpitations. No cough. Denies dysuria. No fever, chills, nausea, vomiting, abdominal, diarrhea. Of note, pt is well known to the facility with last visit on 11/20/22-11/26/22 for hypoxic respiratory failure, ESBL UTI, and nosocomial pneumonia. Was treated with levofloxacin and meropenem, and sent home on doxycycline. In the ED pt was afebrile but tachypneic at 26 and hypertensive at 169/76, satting at 91 % O2 on BiPAP. Labs were significant for potassium of 5.7, carbon dioxide 38, BUN 34, random glucose of 278. VBG with pH of 7.54, HC03 46. CXR showed low lung volumes and bibasilar atelectasis/small infiltrates with left greater than right, similar to November exam. EKG with artifact, demonstrated sinus rhythm with left bundle-branch block, similar to previous EKGs. Pt was treated with Solu-Medrol and DuoNebs. Pt will be admitted to the hospital for treatment of further evaluation acute hypoxic respiratory failure in setting of COPD exacerbation. Review of Systems Review of Systems: Shortness of breath Fatigue Denies cough No dysuria Denies fever, chills, nausea, vomiting, diarrhea, abdominal pain No chest pain/pressure, palpitations Yes all other systems are reviewed and are negative [facility] Medical History Acute and chronic respiratory failure with hypercapnia Acute and chronic respiratory failure with hypercapnia Acute on chronic respiratory failure with hypoxia and hypercapnia Anemia Arthritis Atelectasis of both lungs CHF (congestive heart failure) Clostridium difficile infection Depression Diabetes mellitus, type 2 Diabetic ulcer of foot associated with diabetes mellitus due to underlying condition, with fat layer exposed Heart block AV third degree Hypertension Hypertrophic nonobstructive cardiomyopathy Hypoventilation associated with obesity syndrome Metabolic encephalopathy Morbid obesity Morbid obesity Morbid obesity Obesity hypoventilation syndrome SMILEY (obstructive sleep apnea) PAD (peripheral artery disease) Presence of permanent cardiac pacemaker Presence of permanent cardiac pacemaker Pulmonary embolism Respiratory failure Respiratory failure with hypoxia and hypercapnia Sick sinus syndrome Urinary tract infection due to ESBL Klebsiella Surgical History History of total knee replacement Social History Household Members: Spouse Housing: House Housing Other:: rehab facility Are you a primary foster care therapist to a significant other at home: No Do you presently have visiting nurse or other home services: No Unable to assess alcohol history related to: Unknown Alcohol intake: never Patient Tobacco Use Status: Former Tobacco user Quit Date: 1999 Tobacco use type: Cigarette Cigarette Packs Per Day: 20 Cigarettes Per Day: 400.0 Years Smoked: 20 Smoked in Last 30 Days: No e-Cigarette/Vaping Use: Never Used Second Hand Smoke Exposure: No Use of substances other than those prescribed or required for medical reasons: No Substance Use Type: Unknown Currently Displaying Signs/Symptoms of Drug Intoxication Withdrawal: No Any prior treatment program specific to substance use: No Have you been hit, kicked, punched, or otherwise hurt by someone within the past year? If so, by whom?: No Do you feel safe in your current relationship?: Yes Is there a partner from a previous relationship who is making you feel unsafe now?: No Are you made to feel afraid or neglected: No Spiritual Healthcare Practices: n/a Muslim Healthcare Practices: n/a Cultural Healthcare Practices: n/a Advance Directives: No Do you have thoughts of harming others: None Do you have a plan to hurt others: No Plan Recently lost weight without trying: No Nutrition Risks: No Nutritional Risk Patient : No : No Poor oral hygiene: No service: No Current occupational status: disabled Meds Allergies Allergy/AdvReac Type Severity Reaction Status Date / Time latex Allergy Unknown Unknown Verified 10/21/22 13:48 adhesive tape AdvReac Unknown Unknown Verified 10/21/22 13:48 bupropion [From Wellbutrin] AdvReac Unknown Unknown Verified 10/21/22 13:48 ibuprofen AdvReac Unknown Unknown Verified 10/21/22 13:48 Active Medications: Current Medications Pharmacy Consult (Consult Rx Perform Med Rec) 1 each MISCELLANE ONCE PRN PRN Reason: Consult order Home Medications Medication Instructions Recorded Confirmed Last Taken Type acetaminophen 325 mg tablet 650 mg PO Q4H PRN Fever Or Pain 11/18/21 12/27/22 Unknown History atorvastatin 80 mg tablet 80 mg PO BEDTIME 11/18/21 12/27/22 Unknown History enalapril maleate 20 mg tablet 20 mg PO DAILY 11/18/21 12/27/22 Unknown History ferrous sulfate 325 mg (65 mg 325 mg PO DAILY 11/18/21 12/27/22 Unknown History iron) tablet gabapentin 300 mg capsule 300 mg PO DAILY@1200 11/18/21 12/27/22 Unknown History gabapentin 300 mg capsule 600 mg PO BID 11/18/21 12/27/22 Unknown History insulin lispro 100 unit/mL See Protocol subcut QIDACHS 11/18/21 12/27/22 Unknown History subcutaneous pen melatonin 3 mg tablet 3 mg PO BEDTIME 11/18/21 12/27/22 Unknown History polyethylene glycol 3350 17 gram 17 g PO DAILY PRN Constipation 11/18/21 12/27/22 Unknown History oral powder packet (Miralax) sennosides 8.6 mg tablet (senna) 16.2 mg PO DAILY PRN Constipation 11/18/21 12/27/22 Unknown History sertraline 100 mg tablet 200 mg PO DAILY 11/18/21 12/27/22 Unknown History tizanidine 4 mg tablet 4 mg PO BEDTIME PRN Muscle Spasm 11/18/21 12/27/22 Unknown History aspirin 81 mg chewable tablet 81 mg PO DAILY 01/05/22 12/27/22 Unknown History megestrol 400 mg/10 mL (10 mL) 400 mg PO TID 01/05/22 12/27/22 Unknown History oral suspension bupropion HCl 300 mg 24 hr tablet, 300 mg PO DAILY 04/09/22 12/27/22 Unknown History extended release insulin lispro 100 unit/mL 5 unit subcut TIDAC 04/09/22 12/27/22 Unknown History subcutaneous solution Lactobacillus rhamnosus GG 10 1 cap PO BID 10/09/22 12/27/22 Unknown History billion cell capsule (Culturelle) bupropion HCl 150 mg 24 hr tablet, 1 tab PO DAILY 10/09/22 12/27/22 Unknown History extended release ipratropium 0.5 mg-albuterol 3 mg 3 ml inhalation TID 10/09/22 12/27/22 Unknown History (2.5 mg base)/3 mL nebulization soln potassium chloride 10 mEq 10 meq PO DAILY 10/09/22 12/27/22 Unknown History tablet,extended release bisacodyl 10 mg rectal suppository 10 mg W[place] DAILY PRN Constipation 10/21/22 12/27/22 Unknown History magnesium citrate (Citrate of 150 ml PO DAILY PRN Constipation 10/21/22 12/27/22 Unknown History Magnesia oral) fluticasone 113 mcg-salmeterol 14 1 inh inhalation DAILY 11/09/22 12/27/22 Unknown History mcg/actuation breath activated powdr (AirDuo RespiClick) insulin glargine 100 unit/mL 57 unit subcut DAILY 11/09/22 12/27/22 Unknown History subcutaneous solution magnesium hydroxide 400 mg/5 mL 30 ml PO DAILY PRN Constipation 11/09/22 12/27/22 Unknown History oral suspension (Milk of Magnesia) sodium phosphates 19 gram-7 118 ml [place] DAILY PRN Constipation 11/09/22 12/27/22 Unknown History gram/118 mL enema (Fleet Enema) metformin 500 mg tablet 500 mg PO BID 12/27/22 12/27/22 Unknown History semaglutide 0.25 mg or 0.5 mg (2 0.25 mg subcut WE 12/27/22 12/27/22 Unknown History mg/3 mL) subcutaneous pen injector (Ozempic) Physical Exam Vital Signs and Narrative: Vital Signs: Last Vital Signs Temp 98 F 12/27/22 09:48 Pulse 63 12/27/22 11:38 Resp 18 12/27/22 11:38 BP 169/76 H 12/27/22 11:38 Pulse Ox 92 12/27/22 11:38 O2 Del Method BiPAP 12/27/22 11:38 O2 Flow Rate 17 12/27/22 11:38 FiO2 40 12/27/22 09:48 BMI result Body Mass Index 51.6 Constitutional: Alert, in no acute distress, currently on BiPAP. Mental Status: Oriented to person, place and time. Eyes: Pupils are equal, round, and reactive to light. Ear, Nose, and Throat: Oropharynx clear, mucous membranes moist. Ears and nose without deformities. Trachea midline. Respiratory: Diffuse expiratory rhonci bilaterally. Cardiovascular: S1, S2 regular. No murmurs, rubs, or gallops. Gastrointestinal: Abdomen soft, non-tender, obese, non-distended. Normal bowel sounds. Neurologic: Cranial nerves II-XII are grossly intact bilaterally. No focal neurological deficits. Moves all extremities spontaneously. Skin: Right buttock decubitus ulcer with skin tear. See picture below. Extremities: Bilaterasl +1 pitting edema. Right calf erythema. See picture below. Psychiatric: Normal mood and affect. Results Labs 12/27/22 10:31 12/27/22 10:31 Labs: Laboratory Results - last 24 hr 12/27/22 12/27/22 12/27/22 10:31 10:31 10:31 MCV 95.7 MCH 28.2 MCHC 29.5 L RDW 14.3 Plt Count 202 MPV 10.1 Immature Gran % (Auto) 0.4 Neut % (Auto) 69.2 Lymph % (Auto) 20.6 Ness % (Auto) 7.7 Eos % (Auto) 1.7 Baso % (Auto) 0.4 Lymph # (Auto) 1.7 Ness # (Auto) 0.6 Eos # (Auto) 0.1 Baso # (Auto) 0.0 Abs Immat Gran (auto) 0.03 Absolute Neuts (auto) 5.8 Absolute Nucleated RBC 0.000 Nucleated RBC % (auto) 0.0 VBG pH VBG pCO2 VBG pO2 VBG HCO3 VBG O2 Saturation VBG Base Excess Anion Gap 15 Estim Creat Clear Calc 80.6 Estimated GFR 45 Random Glucose 278 H Calcium 8.8 D Total Bilirubin 0.3 AST 10 ALT 17 Alkaline Phosphatase 77 Troponin I High Sens 10.5 Total Protein 7.0 Albumin 3.6 12/27/22 10:34 MCV MCH MCHC RDW Plt Count MPV Immature Gran % (Auto) Neut % (Auto) Lymph % (Auto) Ness % (Auto) Eos % (Auto) Baso % (Auto) Lymph # (Auto) Ness # (Auto) Eos # (Auto) Baso # (Auto) Abs Immat Gran (auto) Absolute Neuts (auto) Absolute Nucleated RBC Nucleated RBC % (auto) VBG pH 7.54 H VBG pCO2 52 VBG pO2 92 VBG HCO3 46 H VBG O2 Saturation 99.0 VBG Base Excess 20.4 Anion Gap Estim Creat Clear Calc Estimated GFR Random Glucose Calcium Total Bilirubin AST ALT Alkaline Phosphatase Troponin I High Sens Total Protein Albumin Assessment and Plan (1) COPD exacerbation: Status: Acute (2) Pressure injury of deep tissue of buttock: Status: Acute Plan Pt is a 62-year-old female with a PMH significant for?COPD on 5L home O2, hx of respiratory failure with hypercapnia, obesity hypoventilation syndrome, insulin-dependent diabetes, HTN, HLD, decubitus ulcer, morbid obesity, likely 3rd degree heart block with dual-chamber pacemaker, and hx of ESBL UTI who [facility] being found to be hypoxic by staff, satting at 84% on 5 L NC. Patient will be admitted for acute on chronic hypoxic/hypercarbic respiratory failure in the setting of COPD exacerbation. Acute on chronic hypoxic/hypercarbic respiratory failure Likely secondary to COPD exacerbation Pt on home BiPAP at night, 5 L NC otherwise Continue BiPAP for now, wean as tolerated Titrate supplemental O2 >90 Duonebs Solu-medrol 40mg q12 No evidence of active infection at this time: Patient afebrile, no leukocytosis, chest x-ray similar to previous Hold off on antibiotics for now Hyperkalemia Potassium was 5.7 at time of presentation Will give one dose of Lokelma Hold potassium chloride for now Follow BMP Right buttock decubitus ulcer, stage II Hx of right heel wound, now resolved Patient positioning q2hr Airloss mattress Wound care consult Insulin-dependent diabetes Hold metformin SSI, lantus HFpEF Not in acute exacerbation Continue furosemide Neuropathy Continue gabapentin Mood disorder Continue home meds HLD Continue statin HTN Continue amlodipine, enalpril DNR/DNI Attending:?Dr. Livingston DVT Prophylaxis: Lovenox Pt will require a hospitalization of at least two nights for treatment of?acute on chronic hypoxic/hypercarbic respiratory failure setting of COPD exacerbation. Time Spent With Patient Time: Total time managing care of this patient today ____ minutes. Quality Stroke Does the patient have a stroke diagnosis?: No VTE Prior VTE?: No VTE Risk Level:: Medical - moderate - high VTE Device Contraindication: Treatment Not Indicated VTE Drug Contraindication: N/A - Med Ordered
[2022-12-27] MEDS: Albuterol/Iprat 2.5/0.5MG 3 ML AMPUL.NEB INHALE ×3 (11:49→19:34)
--- NOTE | 2022-12-27 13:05 | PHA.MEDREC ---
Pharmacy Consult ? Medication Reconciliation Pharmacy has completed the medication reconciliation.
[2022-12-27] MEDS: Sodium Zirconium Cyclosilicate 10 GM POWD.PACK PO (15:16)
[2022-12-27] MEDS: Enoxaparin Sodium 40 MG/0.4 ML SYRINGE SUBCUT (15:16)
--- NOTE | 2022-12-27 15:51 | MHC.CLN ---
NUTRITION CONSULT FOR SKIN INTEGRITY. INCREASED NUTRITION NEEDS, PROTEIN, DUE TO DTI/PRESSURE INJURIES TO BILATERAL BUTTOCKS. DIET=DIABETIC 2000 KCALS, 2 GRAM SODIUM. ADDING ENSURE MAX PROTEIN BID. PROVIDES ADDITIONAL 300 KCAL, 60 G PROTEIN TO PROMOTE WOUND HEALING. FOLLOW FOR INTAKE AND WOUND HEALING. SEE CLINICAL NUTRITION ASSESSMENT 12/27/22.
--- NOTE | 2022-12-27 16:41 | PC.NURSE ---
Addendum entered by Evie Mancilla RN 12/27/22 18:16: Pt saturation 88-90% on 10L oxymask. Pt alert to person and place, confused with time, pt appears drowsy but alert to voice. Pt BP 173/77 Camilo Santana notified at 1809. Pt has bed on med tele floor room 452, RN called for report. Original Note: Assumed Pt care at 1500, at this time Pt alert and oriented to self, place, and situation, needs reminders on date. Spoke with MD Baldwin about concerns for higher level of care due to Pts need for recuse BiPap. stated Pt ok to be on medical tele floor at this time, ok to monitor every 8 hour VS, trial off of Bipap. Pt taken off Bipap at 1630 with Resp therapist, pt tolerating 10 oxy mask, o2 90%, Camilo Santana aware. Will continue to monitor for changes.
[2022-12-27 17:53] LABS: Glucose, Whole Blood 321 mg/dL (60-115)
[2022-12-27] MEDS: Insulin Lispro 100 UNIT/ML 3 ML VIAL SUBCUT ×2 (18:00→19:36)
[2022-12-27] MEDS: 0.9 % Sodium Chloride Flush 3 ML SYRINGE IVFLUSH ×2 (18:01→19:40)
[2022-12-27 19:29] LABS: Glucose, Whole Blood 418 mg/dL (60-115)
[2022-12-27] MEDS: Atorvastatin Calcium 80 MG TABLET PO (19:40)
[2022-12-27] MEDS: Gabapentin 300 MG CAPSULE 600 MG PO (19:40)
[2022-12-27] MEDS: Melatonin 3 MG TABLET PO (19:40)
--- NOTE | 2022-12-27 21:58 | PC.NURSE ---
[address] Butler notified , gave 10 units per protocol.
[2022-12-27] MEDS: methylPREDNISolone Sod Succ 40 MG/ML VIAL IVPUSH (22:23)
[2022-12-27] MEDS: Morphine Sulfate 2 MG/ML CARTRIDGE IVPUSH (22:25)
[2022-12-28] VITALS (12 sets, daily range): BP systolic 130–167; BP diastolic 67–98; PULSE 69–90; RESP 14–20; TEMP 36.3–36.7; O2SAT 90–94
[2022-12-28] MEDS: Acetaminophen 325 MG TABLET 650 MG PO (05:59)
[2022-12-28 06:38] LABS: Venous Blood Gas Refer to POC result
[2022-12-28 06:43] LABS: VBG Base Excess 21.6 mmol/L; VBG HCO3 50 mmol/L (22-26); VBG pCO2 76 mmHg; VBG pH 7.43 (7.32-7.43); VBG pO2 89 mmHg
[2022-12-28 06:52] LABS: Glucose, Whole Blood 405 mg/dL (60-115)
[2022-12-28 07:27] LABS: Anion Gap 10 (12-20); Blood Urea Nitrogen 40 mg/dL (9-16); Carbon Dioxide 45 mmol/L (22-29); Chloride 92 mmol/L (96-108); Creatinine Clr Calc Pharmacy 82.6; Estimated Glomerular Filt Rate 47; Glucose Random 436 mg/dL (60-115); Potassium 5.8 mmol/L (3.3-5.1); Sodium 141 mmol/L (135-145)
[2022-12-28] MEDS: Insulin Lispro 100 UNIT/ML 3 ML VIAL SUBCUT ×4 (07:36→20:15)
[2022-12-28] MEDS: Albuterol/Iprat 2.5/0.5MG 3 ML AMPUL.NEB INHALE ×4 (07:54→18:40)
[2022-12-28] MEDS: methylPREDNISolone Sod Succ 40 MG/ML VIAL IVPUSH ×2 (09:22→23:33)
[2022-12-28] MEDS: Sertraline HCL 100 MG TABLET 200 MG PO (09:22)
[2022-12-28] MEDS: buPROPion HCl XL 300 MG TAB.ER.24H PO (09:22)
[2022-12-28] MEDS: acetaZOLAMIDE 250 MG TABLET PO ×4 (09:23→20:18)
[2022-12-28] MEDS: Gabapentin 300 MG CAPSULE 600 MG PO ×2 (09:23→20:19)
[2022-12-28] MEDS: Ferrous Sulfate 324 MG TABLET.DR PO (09:23)
[2022-12-28] MEDS: Enalapril Maleate 10 MG TABLET 20 MG PO (09:23)
[2022-12-28] MEDS: buPROPion HCl XL 150 MG TAB.ER.24H PO (09:23)
[2022-12-28] MEDS: amLODIPine Besylate 5 MG TABLET PO (09:23)
[2022-12-28] MEDS: Furosemide 40 MG TABLET PO (09:24)
[2022-12-28] MEDS: Aspirin 81 MG TAB.CHEW PO (09:24)
[2022-12-28] MEDS: Insulin Glargine,Hum.rec.anlog 100 UNIT/ML 10 ML VIAL 40 UNIT SUBCUT (09:24)
[2022-12-28] MEDS: 0.9 % Sodium Chloride Flush 3 ML SYRINGE IVFLUSH ×3 (09:25→20:24)
[2022-12-28 11:24] LABS: Glucose, Whole Blood 362 mg/dL (60-115)
[2022-12-28] MEDS: Gabapentin 300 MG CAPSULE PO (11:30)
--- NOTE | 2022-12-28 11:45 | HO.PM.IMPN ---
Subjective Subjective Date of Service: 12/28/22 Interval History: Tolerated BiPAP overnight. More alert this a.m. Review of Systems Denies chest pain Denies shortness of breath Denies nausea vomiting diarrhea Denies fever chills Physical Exam Vital Signs: Vital Signs: Last Vital Signs Temp 98.0 F 12/28/22 11:39 Pulse 81 12/28/22 11:43 Resp 17 12/28/22 11:43 BP 130/98 H 12/28/22 11:39 Pulse Ox 90 L 12/28/22 11:39 O2 Del Method Oxymask 12/28/22 11:39 O2 Flow Rate 10 12/28/22 11:39 FiO2 45 12/27/22 11:59 BMI result Body Mass Index 51.6 Const: Other: Awake alert no acute distress Resp: Other: Clear but diminished throughout Cardio: Other: No S4; positive S1-S2; no S3 murmurs rubs or gallops GI: Other: Obese/soft nontender nondistended normoactive bowel sounds Extrem: Other: Bilateral lower extremity edema Objective Data Active Medications Acetaminophen (Acetaminophen 325 Mg Tablet) 650 mg PO Q4H PRN PRN Reason: Fever Or Pain Last Admin: 12/28/22 05:59 Dose: 650 mg Documented By: PASTORA Acetazolamide (Acetazolamide 250 Mg Tablet) 250 mg PO QID COUNT INCLUDES THE [facility] Last Admin: 12/28/22 09:23 Dose: 250 mg Documented By: GARUAV Albuterol/Ipratropium (Albuterol/Iprat 2.5/0.5mg 3 Ml Ampul.Neb) 3 ml INHALE RQ4H WHILE AWAKE COUNT INCLUDES THE [facility] Last Admin: 12/28/22 11:42 Dose: 3 ml Documented By: NOREEN Albuterol/Ipratropium (Albuterol/Iprat 2.5/0.5mg 3 Ml Ampul.Neb) 3 ml INHALE TID COUNT INCLUDES THE [facility] Last Admin: 12/28/22 11:21 Dose: Not Given Documented By: NOREEN Non-Admin Reason: Previously Administered Amlodipine Besylate (Amlodipine Besylate 5 Mg Tablet) 5 mg PO DAILY COUNT INCLUDES THE [facility]; Protocol Last Admin: 12/28/22 09:23 Dose: 5 mg Documented By: GAURAV Aspirin (Aspirin 81 Mg Tab.Chew) 81 mg PO DAILY COUNT INCLUDES THE [facility] Last Admin: 12/28/22 09:24 Dose: 81 mg Documented By: GAURAV Atorvastatin Calcium (Atorvastatin Calcium 80 Mg Tablet) 80 mg PO BEDTIME COUNT INCLUDES THE [facility] Last Admin: 12/27/22 19:40 Dose: 80 mg Documented By: PASTORA Bisacodyl (Bisacodyl 10 Mg Supp.Rect) 10 mg IN DAILY PRN PRN Reason: Constipation Bupropion HCl (Bupropion Hcl Xl 150 Mg Tab.Er.24h) 150 mg PO DAILY COUNT INCLUDES THE [facility] Last Admin: 12/28/22 09:23 Dose: 150 mg Documented By: GAURAV Bupropion HCl (Bupropion Hcl Xl 300 Mg Tab.Er.24h) 300 mg PO DAILY COUNT INCLUDES THE [facility] Last Admin: 12/28/22 09:22 Dose: 300 mg Documented By: GAURAV Enalapril Maleate (Enalapril Maleate 10 Mg Tablet) 20 mg PO DAILY COUNT INCLUDES THE [facility]; Protocol Last Admin: 12/28/22 09:23 Dose: 20 mg Documented By: GAURAV Enoxaparin Sodium (Enoxaparin Sodium 40 Mg/0.4 Ml Syringe) 40 mg SUBCUT Q24H COUNT INCLUDES THE [facility] Last Admin: 12/27/22 15:16 Dose: 40 mg Documented By: TALA Ferrous Sulfate (Ferrous Sulfate 324 Mg Tablet.Dr) 324 mg PO DAILY COUNT INCLUDES THE [facility] Last Admin: 12/28/22 09:23 Dose: 324 mg Documented By: GAURAV Furosemide (Furosemide 40 Mg Tablet) 40 mg PO DAILY COUNT INCLUDES THE [facility]; Protocol Last Admin: 12/28/22 09:24 Dose: 40 mg Documented By: GAURAV Gabapentin (Gabapentin 300 Mg Capsule) 300 mg PO DAILY@1200 COUNT INCLUDES THE [facility] Last Admin: 12/28/22 11:30 Dose: 300 mg Documented By: GAURAV Gabapentin (Gabapentin 300 Mg Capsule) 600 mg PO BID COUNT INCLUDES THE [facility] Last Admin: 12/28/22 09:23 Dose: 600 mg Documented By: GAURAV Glucose (Glucose Gel 15 Gm Gel..Gram.) 15 gm PO Q15M PRN; Protocol PRN Reason: per Hypoglycemia Standing Ord. Dextrose (D10) 250 mls @ 750 mls/hr IV Q15M PRN; Protocol PRN Reason: per Hypoglycemia Standing Ord. Insulin Glargine (Insulin Glargine,Hum.Rec.Anlog 100 Unit/Ml 10 Ml Vial) 40 unit SUBCUT DAILY COUNT INCLUDES THE [facility] Last Admin: 12/28/22 09:24 Dose: 40 unit Documented By: GAURAV Insulin Human Lispro (Insulin Lispro 100 Unit/Ml 3 Ml Vial) 0 unit SUBCUT QIDACHS COUNT INCLUDES THE [facility]; Protocol Last Admin: 12/28/22 11:29 Dose: 10 unit Documented By: GAURAV Magnesium Hydroxide (Milk Of Magnesia 30 Ml Oral.Susp) 30 ml PO DAILY PRN PRN Reason: Constipation Megestrol Acetate (Megestrol Acetate 400 Mg/10 Ml Oral.Susp) 400 mg PO TID COUNT INCLUDES THE [facility] Last Admin: 12/27/22 16:21 Dose: Not Given Documented By: TANA Non-Admin Reason: Med Not Available Melatonin (Melatonin 3 Mg Tablet) 3 mg PO BEDTIME COUNT INCLUDES THE [facility] Last Admin: 12/27/22 19:40 Dose: 3 mg Documented By: PASTORA Methylprednisolone Sodium Succinate (Methylprednisolone Sod Succ 40 Mg/Ml Vial) 40 mg IVPUSH Q12H COUNT INCLUDES THE [facility] Last Admin: 12/28/22 09:22 Dose: 40 mg Documented By: GAURAV Ondansetron HCl (Ondansetron Hcl 4 Mg/2 Ml Vial) 4 mg IVPUSH Q8H PRN PRN Reason: Nausea and Vomiting Pharmacy Consult (Consult Rx Perform Med Rec) 1 each MISCELLANE ONCE PRN PRN Reason: Consult order Polyethylene Glycol (Polyethylene Glycol 3350 17 Gm Powd.Pack) 17 gm PO DAILY PRN PRN Reason: Constipation Senna (Sennosides 8.6 Mg Tablet) 16.2 mg PO DAILY PRN PRN Reason: Constipation Sertraline HCl (Sertraline Hcl 100 Mg Tablet) 200 mg PO DAILY COUNT INCLUDES THE [facility] Last Admin: 12/28/22 09:22 Dose: 200 mg Documented By: GAURAV Sodium Biphosphate/Sodium Phosphate (Sodium Phosphate,[place]-Dibasic 133 Ml Enema) 118 ml IN DAILY PRN PRN Reason: Constipation Sodium Chloride (0.9 % Sodium Chloride Flush 3 Ml Syringe) 3 ml IVFLUSH QSHIFT COUNT INCLUDES THE [facility] Last Admin: 12/28/22 09:25 Dose: 3 ml Documented By: GAURAV Sodium Zirconium Cyclosilicate (Sodium Zirconium Cyclosilicate 10 Gm Powd.Pack) 10 gm PO ONCE ONE Stop: 04/15/23 11:45 Tizanidine HCl (Tizanidine Hcl 4 Mg Tablet) 4 mg PO BEDTIME PRN PRN Reason: Muscle Spasm Labs 12/27/22 10:31 12/28/22 06:29 Labs: Laboratory Results - last 24 hr 12/27/22 12/27/22 12/28/22 17:49 19:23 06:29 VBG pH VBG pCO2 VBG pO2 VBG HCO3 VBG O2 Saturation VBG Base Excess Anion Gap 10 L Estim Creat Clear Calc 82.6 Estimated GFR 47 POC Glucose 321 H 418 H* Random Glucose 436 H* Calcium 9.0 12/28/22 12/28/22 12/28/22 06:35 06:49 11:20 VBG pH 7.43 VBG pCO2 76 VBG pO2 89 VBG HCO3 50 H VBG O2 Saturation 99.0 VBG Base Excess 21.6 Anion Gap Estim Creat Clear Calc Estimated GFR POC Glucose 405 H* 362 H* Random Glucose Calcium Assessment and Plan (1) Acute and chronic respiratory failure with hypercapnia: Status: Acute (2) Diabetes mellitus, type 2: Status: Acute (3) Hypertension: Status: Acute Plan Pt is a 62-year-old female with a PMH significant for?COPD on 5L home O2, hx of respiratory failure with hypercapnia, obesity hypoventilation syndrome, insulin-dependent diabetes, HTN, HLD, decubitus ulcer, morbid obesity, likely 3rd degree heart block with dual-chamber pacemaker, and hx of ESBL UTI who [facility] being found to be hypoxic by staff, satting at 84% on 5 L NC. Patient will be admitted for acute on chronic hypoxic/hypercarbic respiratory failure in the setting of COPD exacerbation. 1.Acute on chronic hypoxic/hypercarbic respiratory failure -BiPAP at night, 5 L NC otherwise -Titrate supplemental O2 >90 -Solu-medrol 40mg q12 -add diamox 2.Hyperkalemia -Lokelma 10 mg p.o. now -follow renals/divalents 3.Right buttock decubitus ulcer, stage II -Patient positioning q2hr -Airloss mattress -Wound care consult 4.Insulin-dependent diabetes -Hold metformin...resume as indicated -lantus/lispro correctional scale 5.HFpEF -stable DNR/DNI Lovenox Time Spent With Patient Time: Total time managing care of this patient today ____ minutes. Quality Stroke Does the patient have a stroke diagnosis?: No VTE Prior VTE?: No VTE Risk Level:: Medical - moderate - high VTE Device Contraindication: Treatment Not Indicated VTE Drug Contraindication: N/A - Med Ordered
[2022-12-28] MEDS: Sodium Zirconium Cyclosilicate 10 GM POWD.PACK PO (12:03)
--- NOTE | 2022-12-28 12:45 | MHC.CM.PN ---
PT REPORTS SHE HAS BEEN A RESIDENT OF [facility] FOR SOME TIME HOWEVER SHE DOES HOPE TO EVENTUALLY RETURN HOME SHE USES A BIPAP AND A WHEEL CHAIR SHE HAS A MOLST ON FILE PCP: ANJEL VIDAL SHE IS JENNA ACOSTA IMM DELIVERED DCP: RETURN TO [facility] VIA BLS MESSAGE LEFT FOR [facility] TO CONFIRM PT IS A BED HOLD
[2022-12-28] MEDS: Enoxaparin Sodium 40 MG/0.4 ML SYRINGE SUBCUT (13:48)
[2022-12-28 16:29] LABS: Glucose, Whole Blood 423 mg/dL (60-115)
[2022-12-28 19:47] LABS: Glucose, Whole Blood 430 mg/dL (60-115)
[2022-12-28] MEDS: Atorvastatin Calcium 80 MG TABLET PO (20:19)
[2022-12-28] MEDS: Melatonin 3 MG TABLET PO (20:19)
[2022-12-28] MEDS: TiZANidine HCL 4 MG TABLET PO (20:20)
[2022-12-29] VITALS (15 sets, daily range): BP systolic 127–162; BP diastolic 60–80; PULSE 60–83; RESP 14–24; TEMP 36.1–36.9; O2SAT 88–96
[2022-12-29 06:48] LABS: MANUAL DIFF FLAG NO
[2022-12-29 06:55] LABS: Basophils Percent Auto 0.2 % (0-2); Hematocrit 40.1 % (37.0-47.0); Hemoglobin 12.2 g/dl (12.0-16.0); Imm Gran Abs Auto 0.06 X10*3/uL (0.00-0.03); Imm Gran Pct Auto 0.7 % (0.0-0.4); Lymphocytes Absolute Auto 0.9 X10*3/uL (1.2-4.9); Lymphocytes Percent Auto 9.9 % (20-40); Mean Corpuscular HGB Conc 30.4 g/dl (31.0-35.0); Mean Corpuscular Hemoglobin 28.5 pg (27.0-33.0); Mean Corpuscular Volume 93.7 fL (80.0-98.0); Mean Platelet Volume 10.4 fL (9.4-12.3); Monocytes Absolute Auto 0.4 X10*3/uL (0.1-1.2); Monocytes Percent Auto 4.9 % (2-11); Neutrophils Absolute Auto 7.4 x10*3/uL (2.0-8.3); Neutrophils Percent Auto 84.3 % (45-73); Platelet Count 203 X10*3/uL (160-400); Red Blood Count 4.28 X10*6/uL (4.20-5.50); Red Cell Distribution Width 14.5 % (11.0-16.0); White Blood Count 8.8 X10*3/uL (4.8-10.8)
[2022-12-29 06:56] LABS: Venous Blood Gas Refer to POC result
[2022-12-29 06:58] LABS: VBG Base Excess 16.6 mmol/L; VBG HCO3 45 mmol/L (22-26); VBG pCO2 75 mmHg; VBG pH 7.38 (7.32-7.43); VBG pO2 72 mmHg
[2022-12-29 07:05] LABS: Glucose, Whole Blood 335 mg/dL (60-115)
[2022-12-29 07:32] LABS: Alanine Aminotransferase 13 U/L (0-31); Albumin Level 3.4 g/dL (3.5-5.0); Alkaline Phosphatase 61 U/L (39-117); Anion Gap 9 (12-20); Aspartate Amino Transferase 8 U/L (5-31); Bilirubin Total 0.3 mg/dL (0.0-1.0); Blood Urea Nitrogen 49 mg/dL (9-16); Calcium 9.1 mg/dL (8.4-10.2); Carbon Dioxide 42 mmol/L (22-29); Chloride 94 mmol/L (96-108); Creatinine Clr Calc Pharmacy 77.9; Estimated Glomerular Filt Rate 44; Glucose Fasting 343 mg/dL (60-99); Potassium 5.1 mmol/L (3.3-5.1); Sodium 140 mmol/L (135-145); Total Protein 6.5 g/dL (6.5-8.0)
[2022-12-29] MEDS: Insulin Lispro 100 UNIT/ML 3 ML VIAL SUBCUT ×4 (07:37→20:21)
[2022-12-29] MEDS: Albuterol/Iprat 2.5/0.5MG 3 ML AMPUL.NEB INHALE ×4 (07:42→19:33)
[2022-12-29] MEDS: Sertraline HCL 100 MG TABLET 200 MG PO (08:14)
[2022-12-29] MEDS: Gabapentin 300 MG CAPSULE 600 MG PO ×2 (08:14→20:26)
[2022-12-29] MEDS: Ferrous Sulfate 324 MG TABLET.DR PO (08:14)
[2022-12-29] MEDS: Aspirin 81 MG TAB.CHEW PO (08:15)
[2022-12-29] MEDS: acetaZOLAMIDE 250 MG TABLET PO ×4 (08:15→20:26)
[2022-12-29] MEDS: buPROPion HCl XL 300 MG TAB.ER.24H PO (08:15)
[2022-12-29] MEDS: buPROPion HCl XL 150 MG TAB.ER.24H PO (08:15)
[2022-12-29] MEDS: Furosemide 40 MG TABLET PO ×2 (08:15→16:41)
[2022-12-29] MEDS: amLODIPine Besylate 5 MG TABLET PO (08:15)
[2022-12-29] MEDS: Enalapril Maleate 10 MG TABLET 20 MG PO (08:15)
[2022-12-29] MEDS: 0.9 % Sodium Chloride Flush 3 ML SYRINGE IVFLUSH ×2 (08:19→23:41)
[2022-12-29] MEDS: Insulin Glargine,Hum.rec.anlog 100 UNIT/ML 10 ML VIAL 50 UNIT SUBCUT (08:19)
[2022-12-29 10:42] LABS: Glucose, Whole Blood 337 mg/dL (60-115)
[2022-12-29] MEDS: Gabapentin 300 MG CAPSULE PO (11:02)
[2022-12-29] MEDS: methylPREDNISolone Sod Succ 40 MG/ML VIAL IVPUSH ×2 (11:02→23:39)
--- NOTE | 2022-12-29 12:37 | HO.PM.IMPN ---
Subjective Subjective Date of Service: 12/29/22 Interval History: Seen and evaluated this morning Feels better overall CO2 down to 42 Tolerating bipap no other overnight events Review of Systems Review of Systems: Yes all other systems are reviewed and are negative Physical Exam Vital Signs: Vital Signs: Last Vital Signs Temp 98.4 F 12/29/22 10:50 Pulse 78 12/29/22 11:35 Resp 15 12/29/22 11:35 BP 130/60 12/29/22 10:50 Pulse Ox 90 L 12/29/22 10:50 O2 Del Method Oxymask 12/29/22 10:50 O2 Flow Rate 6 12/29/22 07:15 FiO2 45 12/27/22 11:59 BMI result Body Mass Index 51.6 Const: Other: Constitutional : Awake, interactive Neck : Normal inspection, Supple Cardiovascular : RRR, no JVP, no lower extremity edema Respiratory : fair bilateral air entry, no crackles, bilateral scattered wheezes Gastrointestinal: soft, lax, Normal bowel sounds, Non tender Skin : Warm, Dry Neurological : Alert & oriented x3, No focal deficit Objective Data Active Medications Acetaminophen (Acetaminophen 325 Mg Tablet) 650 mg PO Q4H PRN PRN Reason: Fever Or Pain Last Admin: 12/28/22 05:59 Dose: 650 mg Documented By: PASTORA Acetazolamide (Acetazolamide 250 Mg Tablet) 250 mg PO QID [facility] Last Admin: 12/29/22 08:15 Dose: 250 mg Documented By: GAURAV Albuterol/Ipratropium (Albuterol/Iprat 2.5/0.5mg 3 Ml Ampul.Neb) 3 ml INHALE RQ4H WHILE AWAKE [facility] Last Admin: 12/29/22 11:35 Dose: 3 ml Documented By: NOREEN Albuterol/Ipratropium (Albuterol/Iprat 2.5/0.5mg 3 Ml Ampul.Neb) 3 ml INHALE TID [facility] Last Admin: 12/29/22 07:42 Dose: Not Given Documented By: NOREEN Non-Admin Reason: Duplicate Order Amlodipine Besylate (Amlodipine Besylate 5 Mg Tablet) 5 mg PO DAILY [facility]; Protocol Last Admin: 12/29/22 08:15 Dose: 5 mg Documented By: GAURAV Aspirin (Aspirin 81 Mg Tab.Chew) 81 mg PO DAILY [facility] Last Admin: 12/29/22 08:15 Dose: 81 mg Documented By: GAURAV Atorvastatin Calcium (Atorvastatin Calcium 80 Mg Tablet) 80 mg PO BEDTIME [facility] Last Admin: 12/28/22 20:19 Dose: 80 mg Documented By: PASTORA Bisacodyl (Bisacodyl 10 Mg Supp.Rect) 10 mg [place] DAILY PRN PRN Reason: Constipation Bupropion HCl (Bupropion Hcl Xl 150 Mg Tab.Er.24h) 150 mg PO DAILY [facility] Last Admin: 12/29/22 08:15 Dose: 150 mg Documented By: GAURAV Bupropion HCl (Bupropion Hcl Xl 300 Mg Tab.Er.24h) 300 mg PO DAILY [facility] Last Admin: 12/29/22 08:15 Dose: 300 mg Documented By: GAURAV Enalapril Maleate (Enalapril Maleate 10 Mg Tablet) 20 mg PO DAILY [facility]; Protocol Last Admin: 12/29/22 08:15 Dose: 20 mg Documented By: GAURAV Enoxaparin Sodium (Enoxaparin Sodium 40 Mg/0.4 Ml Syringe) 40 mg SUBCUT Q24H [facility] Last Admin: 12/28/22 13:48 Dose: 40 mg Documented By: GAURAV Ferrous Sulfate (Ferrous Sulfate 324 Mg Tablet.Dr) 324 mg PO DAILY [facility] Last Admin: 12/29/22 08:14 Dose: 324 mg Documented By: GAURAV Furosemide (Furosemide 40 Mg Tablet) 40 mg PO BID@0900,1800 [facility]; Protocol Gabapentin (Gabapentin 300 Mg Capsule) 300 mg PO DAILY@1200 [facility] Last Admin: 12/29/22 11:02 Dose: 300 mg Documented By: GAURAV Gabapentin (Gabapentin 300 Mg Capsule) 600 mg PO BID [facility] Last Admin: 12/29/22 08:14 Dose: 600 mg Documented By: GAURAV Glucose (Glucose Gel 15 Gm Gel..Gram.) 15 gm PO Q15M PRN; Protocol PRN Reason: per Hypoglycemia Standing Ord. Dextrose (D10) 250 mls @ 750 mls/hr IV Q15M PRN; Protocol PRN Reason: per Hypoglycemia Standing Ord. Insulin Glargine (Insulin Glargine,Hum.Rec.Anlog 100 Unit/Ml 10 Ml Vial) 50 unit SUBCUT DAILY [facility] Last Admin: 12/29/22 08:19 Dose: 50 unit Documented By: GAURAV Insulin Human Lispro (Insulin Lispro 100 Unit/Ml 3 Ml Vial) 0 unit SUBCUT QIDACHS [facility]; Protocol Last Admin: 12/29/22 11:02 Dose: 8 unit Documented By: GAURAV Magnesium Hydroxide (Milk Of Magnesia 30 Ml Oral.Susp) 30 ml PO DAILY PRN PRN Reason: Constipation Megestrol Acetate (Megestrol Acetate 400 Mg/10 Ml Oral.Susp) 400 mg PO TID [facility] Last Admin: 12/27/22 16:21 Dose: Not Given Documented By: TANA Non-Admin Reason: Med Not Available Melatonin (Melatonin 3 Mg Tablet) 3 mg PO BEDTIME [facility] Last Admin: 12/28/22 20:19 Dose: 3 mg Documented By: PASTORA Methylprednisolone Sodium Succinate (Methylprednisolone Sod Succ 40 Mg/Ml Vial) 40 mg IVPUSH Q12H [facility] Last Admin: 12/29/22 11:02 Dose: 40 mg Documented By: GAURAV Ondansetron HCl (Ondansetron Hcl 4 Mg/2 Ml Vial) 4 mg IVPUSH Q8H PRN PRN Reason: Nausea and Vomiting Pharmacy Consult (Consult Rx Perform Med Rec) 1 each MISCELLANE ONCE PRN PRN Reason: Consult order Polyethylene Glycol (Polyethylene Glycol 3350 17 Gm Powd.Pack) 17 gm PO DAILY PRN PRN Reason: Constipation Senna (Sennosides 8.6 Mg Tablet) 16.2 mg PO DAILY PRN PRN Reason: Constipation Sertraline HCl (Sertraline Hcl 100 Mg Tablet) 200 mg PO DAILY [facility] Last Admin: 12/29/22 08:14 Dose: 200 mg Documented By: GAURAV Sodium Biphosphate/Sodium Phosphate (Sodium Phosphate,Granite-Dibasic 133 Ml Enema) 118 ml [place] DAILY PRN PRN Reason: Constipation Sodium Chloride (0.9 % Sodium Chloride Flush 3 Ml Syringe) 3 ml IVFLUSH QSHIFT [facility] Last Admin: 12/29/22 08:19 Dose: 3 ml Documented By: GAURAV Tizanidine HCl (Tizanidine Hcl 4 Mg Tablet) 4 mg PO BEDTIME PRN PRN Reason: Muscle Spasm Last Admin: 12/28/22 20:20 Dose: 4 mg Documented By: PASTORA Labs 12/29/22 06:42 12/29/22 06:42 Labs: Laboratory Results - last 24 hr 12/28/22 12/28/22 12/29/22 16:26 19:44 06:42 MCV 93.7 MCH 28.5 MCHC 30.4 L RDW 14.5 Plt Count 203 MPV 10.4 Immature Gran % (Auto) 0.7 H Neut % (Auto) 84.3 H Lymph % (Auto) 9.9 L [place] % (Auto) 4.9 Eos % (Auto) 0.0 Baso % (Auto) 0.2 Lymph # (Auto) 0.9 L [place] # (Auto) 0.4 Eos # (Auto) 0.0 Baso # (Auto) 0.0 Abs Immat Gran (auto) 0.06 H Absolute Neuts (auto) 7.4 Absolute Nucleated RBC 0.000 Nucleated RBC % (auto) 0.0 VBG pH VBG pCO2 VBG pO2 VBG HCO3 VBG O2 Saturation VBG Base Excess Anion Gap Estim Creat Clear Calc Estimated GFR POC Glucose 423 H* 430 H* Fasting Glucose Calcium Total Bilirubin AST ALT Alkaline Phosphatase Total Protein Albumin 12/29/22 12/29/22 12/29/22 06:42 06:46 07:02 MCV MCH MCHC RDW Plt Count MPV Immature Gran % (Auto) Neut % (Auto) Lymph % (Auto) [place] % (Auto) Eos % (Auto) Baso % (Auto) Lymph # (Auto) [place] # (Auto) Eos # (Auto) Baso # (Auto) Abs Immat Gran (auto) Absolute Neuts (auto) Absolute Nucleated RBC Nucleated RBC % (auto) VBG pH 7.38 VBG pCO2 75 VBG pO2 72 VBG HCO3 45 H VBG O2 Saturation 95.0 VBG Base Excess 16.6 Anion Gap 9 L Estim Creat Clear Calc 77.9 Estimated GFR 44 POC Glucose 335 H Fasting Glucose 343 H Calcium 9.1 Total Bilirubin 0.3 AST 8 ALT 13 Alkaline Phosphatase 61 Total Protein 6.5 Albumin 3.4 L 12/29/22 10:37 MCV MCH MCHC RDW Plt Count MPV Immature Gran % (Auto) Neut % (Auto) Lymph % (Auto) [place] % (Auto) Eos % (Auto) Baso % (Auto) Lymph # (Auto) [place] # (Auto) Eos # (Auto) Baso # (Auto) Abs Immat Gran (auto) Absolute Neuts (auto) Absolute Nucleated RBC Nucleated RBC % (auto) VBG pH VBG pCO2 VBG pO2 VBG HCO3 VBG O2 Saturation VBG Base Excess Anion Gap Estim Creat Clear Calc Estimated GFR POC Glucose 337 H Fasting Glucose Calcium Total Bilirubin AST ALT Alkaline Phosphatase Total Protein Albumin Microbiology Microbiology Results: Microbiology 12/28/22 14:13 Urine Culture - Preliminary Urine clean catch - Clean Catch Midstream Gram negative nataly Assessment and Plan (1) Acute and chronic respiratory failure with hypercapnia: Status: Acute (2) COPD exacerbation: Status: Acute Plan Pt is a 62-year-old female with a PMH significant for?COPD on 5L home O2, hx of respiratory failure with hypercapnia, obesity hypoventilation syndrome, insulin-dependent diabetes, HTN, HLD, decubitus ulcer, morbid obesity, likely 3rd degree heart block with dual-chamber pacemaker, and hx of ESBL UTI who [facility] the [facility] after being found to be hypoxic by staff, satting at 84% on 5 L NC. Patient will be admitted for acute on chronic hypoxic/hypercarbic respiratory failure in the setting of COPD exacerbation. Acute on chronic hypoxic/hypercarbic respiratory failure BiPAP at night, 5 L NC otherwise CO2 of 42 Titrate supplemental O2 >90 Solu-medrol 40mg q12 continue diamox Hyperkalemia improved Lokelma 5 mg p.o. now follow renals/divalents Right buttock decubitus ulcer, stage II Patient positioning q2hr Airless mattress Wound care consult UTI Cx growing GNR Start Ceftriaxone Insulin-dependent diabetes Hold metformin...resume as indicated lantus/lispro correctional scale HFpEF stable DNR/DNI Lovenox Will need overnight hospital stay to correct CO2 retention on BIPAP pending safe discahrge plan Time Spent With Patient Time: Total time managing care of this patient today ____ minutes. Quality Stroke Does the patient have a stroke diagnosis?: No VTE Prior VTE?: No VTE Risk Level:: Medical - moderate - high VTE Device Contraindication: Treatment Not Indicated VTE Drug Contraindication: N/A - Med Ordered
[2022-12-29] MEDS: Enoxaparin Sodium 40 MG/0.4 ML SYRINGE SUBCUT (13:45)
[2022-12-29] MEDS: Sodium Zirconium Cyclosilicate 5 GM POWD.PACK PO (13:46)
[2022-12-29] MEDS: cefTRIAXone sodium 1 GM in 0.9 % Sodium Chloride 50 ML IV (13:46)
[2022-12-29 16:32] LABS: Glucose, Whole Blood 389 mg/dL (60-115)
[2022-12-29] MEDS: TiZANidine HCL 4 MG TABLET PO (20:27)
[2022-12-29] MEDS: Atorvastatin Calcium 80 MG TABLET PO (20:27)
[2022-12-29 20:28] LABS: Glucose, Whole Blood 397 mg/dL (60-115)
[2022-12-29] MEDS: Melatonin 3 MG TABLET PO (20:28)
[2022-12-30 04:00] VITALS: BP 133/85; PULSE 60; RESP 16; TEMP 36.1; O2SAT 94
[2022-12-30 04:17] VITALS: PULSE 61; RESP 16; O2SAT 93
[2022-12-30 06:31] LABS: MANUAL DIFF FLAG NO
[2022-12-30 06:42] LABS: Basophils Percent Auto 0.2 % (0-2); Eosinophils Percent Auto 0.2 % (0-4); Hematocrit 40.6 % (37.0-47.0); Hemoglobin 12.2 g/dl (12.0-16.0); Imm Gran Abs Auto 0.04 X10*3/uL (0.00-0.03); Imm Gran Pct Auto 0.4 % (0.0-0.4); Lymphocytes Absolute Auto 2.3 X10*3/uL (1.2-4.9); Lymphocytes Percent Auto 21.3 % (20-40); Mean Corpuscular Hemoglobin 28.4 pg (27.0-33.0); Mean Corpuscular Volume 94.4 fL (80.0-98.0); Mean Platelet Volume 10.4 fL (9.4-12.3); Monocytes Absolute Auto 1.3 X10*3/uL (0.1-1.2); Monocytes Percent Auto 11.7 % (2-11); Neutrophils Absolute Auto 7.1 x10*3/uL (2.0-8.3); Neutrophils Percent Auto 66.2 % (45-73); Platelet Count 205 X10*3/uL (160-400); Red Cell Distribution Width 14.4 % (11.0-16.0); White Blood Count 10.8 X10*3/uL (4.8-10.8)
[2022-12-30 07:28] LABS: Alanine Aminotransferase 12 U/L (0-31); Albumin Level 3.4 g/dL (3.5-5.0); Alkaline Phosphatase 58 U/L (39-117); Anion Gap 12 (12-20); Aspartate Amino Transferase 6 U/L (5-31); Bilirubin Total 0.3 mg/dL (0.0-1.0); Blood Urea Nitrogen 50 mg/dL (9-16); Calcium 9.2 mg/dL (8.4-10.2); Carbon Dioxide 40 mmol/L (22-29); Chloride 92 mmol/L (96-108); Creatinine Clr Calc Pharmacy 84.1; Estimated Glomerular Filt Rate 48; Glucose Fasting 279 mg/dL (60-99); Potassium 4.1 mmol/L (3.3-5.1); Sodium 140 mmol/L (135-145); Total Protein 6.5 g/dL (6.5-8.0)
[2022-12-30 07:34] VITALS: BP 146/80; PULSE 67; RESP 20; TEMP 36.2; O2SAT 92
[2022-12-30] MEDS: Albuterol/Iprat 2.5/0.5MG 3 ML AMPUL.NEB INHALE ×2 (07:40→11:39)
[2022-12-30 07:42] VITALS: PULSE 16; PULSE 67; RESP 16; RESP 20; O2SAT 92; O2SAT 93
[2022-12-30 07:46] LABS: Glucose, Whole Blood 238 mg/dL (60-115)
[2022-12-30] MEDS: Insulin Lispro 100 UNIT/ML 3 ML VIAL SUBCUT ×2 (08:14→12:09)
[2022-12-30] MEDS: Enalapril Maleate 10 MG TABLET 20 MG PO (08:15)
[2022-12-30] MEDS: 0.9 % Sodium Chloride Flush 3 ML SYRINGE IVFLUSH (08:15)
[2022-12-30] MEDS: acetaZOLAMIDE 250 MG TABLET PO ×2 (08:15→12:10)
[2022-12-30] MEDS: amLODIPine Besylate 5 MG TABLET PO (08:15)
[2022-12-30] MEDS: Gabapentin 300 MG CAPSULE PO (08:15)
[2022-12-30] MEDS: Ferrous Sulfate 324 MG TABLET.DR PO (08:15)
[2022-12-30] MEDS: Sertraline HCL 100 MG TABLET 200 MG PO (08:15)
[2022-12-30] MEDS: buPROPion HCl XL 300 MG TAB.ER.24H PO (08:15)
[2022-12-30] MEDS: buPROPion HCl XL 150 MG TAB.ER.24H PO (08:15)
[2022-12-30] MEDS: Aspirin 81 MG TAB.CHEW PO (08:15)
[2022-12-30] MEDS: Insulin Glargine,Hum.rec.anlog 100 UNIT/ML 10 ML VIAL 50 UNIT SUBCUT (08:16)
[2022-12-30] MEDS: Furosemide 40 MG TABLET PO (08:16)
[2022-12-30] MEDS: Gabapentin 300 MG CAPSULE 600 MG PO (08:29)
--- NOTE | 2022-12-30 09:59 | PM.DS ---
DS: Providers Provider Date of Service: 12/30/22 Date of admission: 12/27/22 12:43 Primary care physician: Tita Bal MD Consults: 12/27/22 12:45 Consult to Wound Care Routine Consulting Provider: [facility] Wound Care Management Reason for consultation: Right buttock decubitus ulcer DS: Diagnosis Discharge Diagnosis (1) Acute and chronic respiratory failure with hypercapnia: Status: Acute (2) COPD exacerbation: Status: Acute (3) Hyperkalemia: Status: Acute (4) Pressure ulcer, stage II, skin breakdown: Status: Acute DS: Summary Hospital Course Hospital Course: Admission note HPI Pt is a 62-year-old female with a PMH significant for?COPD on 5L home O2, hx of respiratory failure with hypercapnia, obesity hypoventilation syndrome, insulin-dependent diabetes, HTN, HLD, decubitus ulcer, morbid obesity, and hx of ESBL UTI who presents to the ED from [facility] after being found to be hypoxic by staff, satting at 84% on 5 L NC. Pt states she has been compliant with her supplemental O2 during the day and wearing her BiPAP at night. Complains of SOB but no chest pain/pressure, palpitations. No cough. Denies dysuria.? No fever, chills, nausea, vomiting, abdominal, diarrhea.? Of note, pt is well known to the facility with last visit on 11/20/22-11/26/22 for hypoxic respiratory failure, ESBL UTI, and nosocomial pneumonia. Was treated with levofloxacin and meropenem, and sent home on doxycycline. In the ED pt was afebrile but tachypneic at 26 and hypertensive at 169/76, satting at 91 % O2 on BiPAP. Labs were significant for potassium of 5.7, carbon dioxide 38, BUN 34, random glucose of 278.? VBG with pH of 7.54, HC03 46. CXR showed low lung volumes and bibasilar atelectasis/small infiltrates with left greater than right, similar to November exam. EKG with artifact, demonstrated sinus rhythm with left bundle-branch block, similar to previous EKGs. Pt was treated with Solu-Medrol and DuoNebs. Pt will be admitted to the hospital for treatment of further evaluation acute hypoxic respiratory failure in setting of COPD exacerbation. Hospital course Acute on chronic hypoxic/hypercarbic respiratory failure. treated with IV steroids, Duoneb nebulizer, BiPAP at night as she was weaned on O2 supplement to baseline. started on Diamox for contraction alkalosis with improvement of CO2 to 40. Titrate supplemental O2 >90. to repeat BMP next week. Hyperkalemia on admission. been on potassium pills. treated with Lokelma with good response. held on discharge. follow BMP She has Right buttock decubitus ulcer, stage II. dressing, Patient positioning q2hr, Airless mattress. will need close follow up on discharge to avoid worsening. Has UTI with Cx growing Ecoli. treated with Ceftriaxone. to finish a course of Ceftin Time Spent with Patient Time attestation: Total time managing care of this patient today ____ minutes. Discharge coordination time: Greater than 30 minutes Quality: Safe Use of Opioids Does Pt have an Active Cancer Diagnosis on the Problem List?: No Quality: Stroke Does the patient have a stroke diagnosis?: No Physical Exam Vital Signs: Vital Signs: Last Vital Signs Temp 97.1 F 12/30/22 07:34 Pulse 67 12/30/22 07:42 Resp 16 12/30/22 07:42 BP 146/80 H 12/30/22 07:34 Pulse Ox 92 12/30/22 07:34 O2 Del Method Oxymask 12/30/22 07:34 O2 Flow Rate 7 12/30/22 07:34 FiO2 45 12/27/22 11:59 BMI result Body Mass Index 51.6 Const: Other: Constitutional : Awake, interactive Neck : Normal inspection, Supple Cardiovascular : RRR, no JVP, no lower extremity edema Respiratory : fair bilateral air entry, no crackles, bilateral scattered wheezes Gastrointestinal: soft, lax, Normal bowel sounds, Non tender Skin : Warm, Dry, stage 2 pressure injury Neurological : Alert & oriented x3, No focal deficit DS: Data Data Completed and Pending Completed studies during hospitalization [Text1]: Procedures Assistance with Respiratory Ventilation, Less than 24 Consecutive Hours, Continuous Positive Airway Pressure (11/20/22) Insertion of Endotracheal Airway into Trachea, Via Natural or Artificial Opening (11/18/21) Insertion of Infusion Device into Superior Vena Cava, Percutaneous Approach (11/18/21) Introduction of Vasopressor into Peripheral Vein, Percutaneous Approach (11/18/21) Respiratory Ventilation, 24-96 Consecutive Hours (11/18/21) Ultrasonography of Superior Vena Cava, Guidance (11/18/21) Labs on day of discharge: Laboratory Results - last 24 hr 12/29/22 12/29/22 12/29/22 10:37 16:28 20:18 WBC RBC Hgb Hct MCV MCH MCHC RDW Plt Count MPV Immature Gran % (Auto) Neut % (Auto) Lymph % (Auto) [place] % (Auto) Eos % (Auto) Baso % (Auto) Lymph # (Auto) [place] # (Auto) Eos # (Auto) Baso # (Auto) Abs Immat Gran (auto) Absolute Neuts (auto) Absolute Nucleated RBC Nucleated RBC % (auto) Sodium Potassium Chloride Carbon Dioxide Anion Gap BUN Creatinine Estim Creat Clear Calc Estimated GFR POC Glucose 337 H 389 H* 397 H* Fasting Glucose Calcium Total Bilirubin AST ALT Alkaline Phosphatase Total Protein Albumin 12/30/22 12/30/22 12/30/22 06:06 06:06 07:36 WBC 10.8 RBC 4.30 Hgb 12.2 Hct 40.6 MCV 94.4 MCH 28.4 MCHC 30.0 L RDW 14.4 Plt Count 205 MPV 10.4 Immature Gran % (Auto) 0.4 Neut % (Auto) 66.2 Lymph % (Auto) 21.3 [place] % (Auto) 11.7 H Eos % (Auto) 0.2 Baso % (Auto) 0.2 Lymph # (Auto) 2.3 [place] # (Auto) 1.3 H Eos # (Auto) 0.0 Baso # (Auto) 0.0 Abs Immat Gran (auto) 0.04 H Absolute Neuts (auto) 7.1 Absolute Nucleated RBC 0.000 Nucleated RBC % (auto) 0.0 Sodium 140 Potassium 4.1 Chloride 92 L Carbon Dioxide 40 H* Anion Gap 12 BUN 50 H Creatinine 1.15 Estim Creat Clear Calc 84.1 Estimated GFR 48 POC Glucose 238 H Fasting Glucose 279 H Calcium 9.2 Total Bilirubin 0.3 AST 6 ALT 12 Alkaline Phosphatase 58 Total Protein 6.5 Albumin 3.4 L Imaging Chest x-ray: Radiologist's impression: ITS Impressions Chest X-Ray 12/27/22 10:47 IMPRESSION: Low lung volumes and bibasilar atelectasis/small infiltrates, left greater than right, similar to November exam. Venous Duplex 12/27/22 14:00 IMPRESSION: No DVT demonstrated in the bilateral lower extremity. Discharge Plan Discharge Anticipated Discharge Date/Time: 12/30/22 09:47 Patient Disposition: Xfer SNF Discharge Diagnosis: Acute COPD exacerbation Referrals: Tita Bal MD [Primary Care Provider] - 1 Week Discharge Medications: New acetazolamide 250 mg Tablet 250 mg PO BID Qty: 60 0RF cefuroxime axetil 500 mg tablet 500 mg PO BID Qty: 6 0RF prednisone 20 mg tablet 40 mg PO DAILY Qty: 6 0RF Continued furosemide 40 mg Tablet 40 mg PO DAILY Qty: 30 0RF Protocol: Hold for SBP< HOLD for SBP < : 90 ipratropium-albuterol 0.5 mg-3 mg(2.5 mg base)/3 mL Solution For Nebulization 3 ml INHALATION TID Culturelle 10 billion cell Capsule 1 cap PO BID bupropion HCl 150 mg tablet extended release 24 hr 1 tab PO DAILY Rx Instructions: take with 300mg; tdd 450mg insulin glargine 100 unit/mL Solution 57 unit SUBCUT DAILY magnesium hydroxide [Milk of Magnesia] 400 mg/5 mL Suspension 30 ml PO DAILY PRN (Reason: Constipation) Fleet Enema 19-7 gram/118 mL Enema 118 ml SD DAILY PRN (Reason: Constipation) fluticasone propion-salmeterol [AirDuo RespiClick] 113-14 mcg/actuation aerosol powdr breath activated 1 inh inhalation DAILY Rx Instructions: rinse mouth after use atorvastatin 80 mg Tablet 80 mg PO BEDTIME sennosides [senna] 8.6 mg Tablet 16.2 mg PO DAILY PRN (Reason: Constipation) acetaminophen 325 mg Tablet 650 mg PO Q4H PRN (Reason: Fever Or Pain) polyethylene glycol 3350 [Miralax] 17 gram Powder In Packet 17 g PO DAILY PRN (Reason: Constipation) tizanidine 4 mg Tablet 4 mg PO BEDTIME PRN (Reason: Muscle Spasm) enalapril maleate 20 mg Tablet 20 mg PO DAILY sertraline 100 mg Tablet 200 mg PO DAILY melatonin 3 mg Tablet 3 mg PO BEDTIME ferrous sulfate 325 mg (65 mg iron) Tablet 325 mg PO DAILY gabapentin 300 mg Capsule 300 mg PO DAILY@1200 gabapentin 300 mg Capsule 600 mg PO BID insulin lispro 100 unit/mL Insulin Pen See Protocol SUBCUT QIDACHS Protocol: Insulin Correction Scale Less than or equal to 110 ---- Give (units): 0 111 to 150 Give (units): 0 151 to 200 Give (units): 2 201 to 250 Give (units): 4 251 to 300 Give (units): 6 301 to 350 Give (units): 8 Greater than 350 Give (units): 10 Call MD if Blood Glucose > : 350 Rx Instructions: SLIDING SCALE amlodipine 5 mg Tablet 5 mg PO DAILY 30 Days Qty: 30 0RF Protocol: Hold for SBP< HOLD for SBP < : 90 aspirin 81 mg Tablet,Chewable 81 mg PO DAILY megestrol 400 mg/10 mL (10 mL) Suspension 400 mg PO TID metformin 500 mg tablet 500 mg PO BID Ozempic 0.25 mg or 0.5 mg (2 mg/3 mL) pen injector 0.25 mg subcut WE bisacodyl 10 mg suppository 10 mg SD DAILY PRN (Reason: Constipation) magnesium citrate [Citrate of Magnesia] Solution 150 ml PO DAILY PRN (Reason: Constipation) bupropion HCl 300 mg tablet extended release 24 hr 300 mg PO DAILY Rx Instructions: take with 150mg dose; tdd 450mg insulin lispro 100 unit/mL solution 5 unit subcut TIDAC Held potassium chloride 10 mEq Tablet Extended Release 10 meq PO DAILY Hold Instructions: Recheck K level in 1 week to decide if needed or not. Discharge Orders: Discharge Order (Routine); Ordered 12/30/22 Ordered By: Tom Batista Diet: Low salt diet Activity on Discharge: As tolerated Stand Alone Forms: Patient Portal Discharge page Other Ambulatory Orders: Basic Metabolic Panel (Routine) Timeframe: 1 Week Facility: [facility] - Location: Laboratory Ordered By: Tom Batista Care Plan Goals: Read below Health Concerns: Read below Plan of Treatment: Read below Assessment: You were admitted to the hospital for COPD exacerbation treated with steroids, nebulizers with good response. noted to have urine infection treated with IV antibiotics. Continue Ceftin as prescribed Continue Prednisone Start Acetzolamide Hold Potassium tablets To repeat blood work next week to decide if potassium supplement needed.
[2022-12-30 10:35] VITALS: BP 115/62; PULSE 77; RESP 20; TEMP 36.2; O2SAT 90
--- NOTE | 2022-12-30 11:03 | MHC.CM.PN ---
PT MEDICALLY CLEARED FOR D/C BACK TO [facility] FOR RESUMP OF LTC, PT REQUESTED CM CONTACT MANOL[facility] WHO WAS CONTACTED AT 10:55AM AND IS AGREEABLE TO JON [facility] FOR BLS TRANSPORT
[2022-12-30 11:17] LABS: COVID-19 Test Negative (Negative); IDNOW Serial# 9DB6401D
[2022-12-30 11:27] LABS: Glucose, Whole Blood 304 mg/dL (60-115)
[2022-12-30 11:41] VITALS: PULSE 77; RESP 19; O2SAT 90
[2022-12-30] MEDS: methylPREDNISolone Sod Succ 40 MG/ML VIAL IVPUSH (12:09)
[2022-12-30] MEDS: Enoxaparin Sodium 40 MG/0.4 ML SYRINGE SUBCUT (12:12)
[2022-12-30] MEDS: cefTRIAXone sodium 1 GM in 0.9 % Sodium Chloride 50 ML IV (12:46)
== END 2022-12-30 15:55 | disposition skilled nursing facility (03) | DRG 190 ==
LOC: HO.ED 11:42 → HO.EDOVER 13:03 → HO.S3 13:05 → HO.IMC 18:06
PROVIDERS: Hospitalist; Admitting Provider Student in an Organized Health Care Education/Training Program; Emergency Provider Emergency Medicine; PCP Internal Medicine; Visit Provider Student in an Organized Health Care Education/Training Program
DX: J44.1 Chronic obstructive pulmonary disease with (acute) exacerbation (principal); J96.21 Acute and chronic respiratory failure with hypoxia; J96.22 Acute and chronic respiratory failure with hypercapnia; E66.2 Morbid (severe) obesity with alveolar hypoventilation; Z68.43 Body mass index [BMI] 50.0-59.9, adult; J98.11 Atelectasis; I50.32 Chronic diastolic (congestive) heart failure; E87.3 Alkalosis; N39.0 Urinary tract infection, site not specified; I11.0 Hypertensive heart disease with heart failure; E78.5 Hyperlipidemia, unspecified; L89.312 Pressure ulcer of right buttock, stage 2; Z66 Do not resuscitate; E87.5 Hyperkalemia; B96.20 Unspecified Escherichia coli [E. coli] as the cause of diseases classified elsewhere; F32.A Depression, unspecified; I49.5 Sick sinus syndrome; Z95.0 Presence of cardiac pacemaker; Z87.891 Personal history of nicotine dependence; Z99.81 Dependence on supplemental oxygen; Z91.040 Latex allergy status; Z88.6 Allergy status to analgesic agent; Z79.4 Long term (current) use of insulin; Z79.84 Long term (current) use of oral hypoglycemic drugs; Z79.82 Long term (current) use of aspirin; Z79.899 Other long term (current) drug therapy
CPT/HCPCS: 36415; 71045; 80048; 80053; 82803; 82947; 84484; 85025; 87086; 87088; 87186; 87635; 93005; 93970; 94640; 94660; 99222; 99284; J0696; J1650; J2270; J2920; J2930

== ENCOUNTER 2023-01-01 13:11 | Inpatient (IN) | payer OTHER, MEDICARE, MEDICAID, SELFPAY ==
[2023-01-01] VITALS (14 sets, daily range): BP systolic 97–146; BP diastolic 46–81; PULSE 60–67; RESP 13–21; TEMP 37–37.7; O2SAT 87–97; BMI 33.1; BMI 52.4
--- NOTE | ~2023-01-01 | XR_ITS ---
EXAMINATION: XR CHEST CLINICAL INFORMATION: Shortness of breath COMPARISON: 12/27/2022 TECHNIQUE: Frontal view of the chest was obtained. FINDINGS: Large body habitus. Left pectoral region cardiac pacemaker with intact transvenous leads extending to the right atrium and right ventricle. Lungs are hypoinflated and suboptimally evaluated. Several linear streaky opacities of likely atelectasis are present in both lungs. Current findings are similar to those seen on 12/27/2022. Cardiomediastinal silhouette has stable size and contour. No overt pulmonary edema, pleural effusion or pneumothorax. The visualized bones are intact. Left shoulder arthroplasty is partially included in [id number]. XR/XR chest 1V IMPRESSION: * Obese body habitus and hypoinflated lungs. * The persistent opacities in each lung likely represent atelectasis. * There is no overt pulmonary edema, pleural effusion or other significant change.
--- NOTE | 2023-01-01 13:34 | ECG_ITS ---
Test Reason : ams Blood Pressure : / mmHG Vent. Rate : 061 BPM Atrial Rate : 061 BPM P-R Int : 202 ms QRS Dur : 158 ms QT Int : 454 ms P-R-T Axes : 024 -36 099 degrees QTc Int : 457 ms Atrial-paced rhythm Left axis deviation Left bundle branch block Abnormal ECG When compared with ECG of 27-DEC-2022 09:57, Previous ECG has undetermined rhythm, needs review Referred By: Hedy Rodriguez Electronically Signed By:SANJANA LAGUERRE
--- NOTE | 2023-01-01 13:37 | ED.AMS ---
HPI - Altered Mental Status General Chief Complaint: Altered Mental Status Stated Complaint: Decrease oral intake, AMS per EMS History of Present Illness HPI narrative: Patient is 62 years old with a history of obstructive sleep apnea history of COPD history of being hypercapnia the. History of urinary tract infection with ESBL. Presented today with having episodes of change in mental status. Patient lives in a long-term baseline. All the sudden with talk about tuna fish be completely off. On arrival patient is answering questions appropriately she is at [facility]. Patient has no chest pain or shortness of breath no dizziness. She is oriented to self to place and to time. She has no complaints. Baseline patient is on 4-6 L of oxygen at home. Related Data Home Medications Medication Instructions Recorded Confirmed acetaminophen 325 mg tablet 650 mg PO Q4H PRN Fever Or Pain 11/18/21 12/27/22 atorvastatin 80 mg tablet 80 mg PO BEDTIME 11/18/21 12/27/22 enalapril maleate 20 mg tablet 20 mg PO DAILY 11/18/21 12/27/22 ferrous sulfate 325 mg (65 mg 325 mg PO DAILY 11/18/21 12/27/22 iron) tablet gabapentin 300 mg capsule 300 mg PO DAILY@1200 11/18/21 12/27/22 gabapentin 300 mg capsule 600 mg PO BID 11/18/21 12/27/22 insulin lispro 100 unit/mL See Protocol subcut QIDACHS 11/18/21 12/27/22 subcutaneous pen melatonin 3 mg tablet 3 mg PO BEDTIME 11/18/21 12/27/22 polyethylene glycol 3350 17 gram 17 g PO DAILY PRN Constipation 11/18/21 12/27/22 oral powder packet (Miralax) sennosides 8.6 mg tablet (senna) 16.2 mg PO DAILY PRN Constipation 11/18/21 12/27/22 sertraline 100 mg tablet 200 mg PO DAILY 11/18/21 12/27/22 tizanidine 4 mg tablet 4 mg PO BEDTIME PRN Muscle Spasm 11/18/21 12/27/22 aspirin 81 mg chewable tablet 81 mg PO DAILY 01/05/22 12/27/22 megestrol 400 mg/10 mL (10 mL) 400 mg PO TID 01/05/22 12/27/22 oral suspension bupropion HCl 300 mg 24 hr tablet, 300 mg PO DAILY 04/09/22 12/27/22 extended release insulin lispro 100 unit/mL 5 unit subcut TIDAC 04/09/22 12/27/22 subcutaneous solution Lactobacillus rhamnosus GG 10 1 cap PO BID 10/09/22 12/27/22 billion cell capsule (Culturelle) bupropion HCl 150 mg 24 hr tablet, 1 tab PO DAILY 10/09/22 12/27/22 extended release ipratropium 0.5 mg-albuterol 3 mg 3 ml inhalation TID 10/09/22 12/27/22 (2.5 mg base)/3 mL nebulization soln potassium chloride 10 mEq 10 meq PO DAILY 10/09/22 12/27/22 tablet,extended release bisacodyl 10 mg rectal suppository 10 mg [place] DAILY PRN Constipation 10/21/22 12/27/22 magnesium citrate (Citrate of 150 ml PO DAILY PRN Constipation 10/21/22 12/27/22 Magnesia oral) fluticasone 113 mcg-salmeterol 14 1 inh inhalation DAILY 11/09/22 12/27/22 mcg/actuation breath activated powdr (AirDuo RespiClick) insulin glargine 100 unit/mL 57 unit subcut DAILY 11/09/22 12/27/22 subcutaneous solution magnesium hydroxide 400 mg/5 mL 30 ml PO DAILY PRN Constipation 11/09/22 12/27/22 oral suspension (Milk of Magnesia) sodium phosphates 19 gram-7 118 ml [place] DAILY PRN Constipation 11/09/22 12/27/22 gram/118 mL enema (Fleet Enema) metformin 500 mg tablet 500 mg PO BID 12/27/22 12/27/22 semaglutide 0.25 mg or 0.5 mg (2 0.25 mg subcut WE 12/27/22 12/27/22 mg/3 mL) subcutaneous pen injector (Ozempic) Previous Rx's Medication Instructions Recorded amlodipine 5 mg tablet 5 mg PO DAILY 30 days #30 tabs 11/26/21 furosemide 40 mg tablet 40 mg PO DAILY #30 tabs 04/05/22 acetazolamide 250 mg tablet 250 mg PO BID #60 tabs 12/30/22 cefuroxime axetil 500 mg tablet 500 mg PO BID #6 tabs 12/30/22 prednisone 20 mg tablet 40 mg PO DAILY #6 tabs 12/30/22 Allergies Allergy/AdvReac Type Severity Reaction Status Date / Time latex Allergy Unknown Unknown Verified 10/21/22 13:48 adhesive tape AdvReac Unknown Unknown Verified 10/21/22 13:48 bupropion [From Wellbutrin] AdvReac Unknown Unknown Verified 10/21/22 13:48 ibuprofen AdvReac Unknown Unknown Verified 10/21/22 13:48 Review of Systems Review of Systems: Positive change in mental status reported by nursing Yes all other systems are reviewed and are negative [facility] Past Medical History Attestation statement: The following information was validated with the patient. Medical History Acute and chronic respiratory failure with hypercapnia Acute and chronic respiratory failure with hypercapnia Acute on chronic respiratory failure with hypoxia and hypercapnia Anemia Arthritis Atelectasis of both lungs CHF (congestive heart failure) Clostridium difficile infection Depression Diabetes mellitus, type 2 Diabetic ulcer of foot associated with diabetes mellitus due to underlying condition, with fat layer exposed Heart block AV third degree Hypertension Hypertrophic nonobstructive cardiomyopathy Hypoventilation associated with obesity syndrome Metabolic encephalopathy Morbid obesity Morbid obesity Morbid obesity Obesity hypoventilation syndrome SMILEY (obstructive sleep apnea) PAD (peripheral artery disease) Presence of permanent cardiac pacemaker Presence of permanent cardiac pacemaker Pulmonary embolism Respiratory failure Respiratory failure with hypoxia and hypercapnia Sick sinus syndrome Urinary tract infection due to ESBL Klebsiella Surgical History History of total knee replacement Social History Social History Household Members: Spouse Housing: House Housing Other:: rehab facility Are you a primary professional healthcare representative to a significant other at home: No Do you presently have visiting nurse or other home services: No Unable to assess alcohol history related to: Unknown Alcohol intake: never Patient Tobacco Use Status: Former Tobacco user Quit Date: 1999 Tobacco use type: Cigarette Cigarette Packs Per Day: 20 Cigarettes Per Day: 400.0 Years Smoked: 20 e-Cigarette/Vaping Use: Never Used Second Hand Smoke Exposure: No Substance Use Type: Unknown Advance Directives: No service: No Current occupational status: disabled Physical Exam ED Vital Signs: Vital Signs - 24 hr 01/01/23 13:25 01/01/23 14:22 01/01/23 15:29 Pulse Rate 65 Respiratory Rate 21 H 14 15 Blood Pressure 139/72 Pulse Oximetry 88 L Oxygen Delivery Method Nasal Cannula BMI result Body Mass Index 33.1 Appearance: Alert. Oriented X3. No acute distress. Eyes: Pupils equal, round and reactive to light. ENT: Pharynx normal. Neck: Normal inspection. Neck supple. No lymph nodes noted. No crepitus CVS: Normal heart rate and rhythm. Pulses normal. Normal S1 and S2 Respiratory: No respiratory distress. Breath sounds normal. No Wheezing. No rales Abdomen: Soft and nontender. No rigidity. No distention. good BS x4 Skin: Skin warm and dry. Normal skin color. Normal skin turgor. Extremities: 2+ lower extremity edema. Neurovascular intact to all extremities. No Lacerations. No Rash Neuro: Oriented X 3. No motor deficit. No sensory deficit. Moving all extermities. No slurred speech Medical Decision Making Medical Decision Making [facility] Narrative: Patient has a history of CO2 retention. Came in today for change in mental status. Patient's ABG showed a CO2 of 80 with a pH of 7.3. Attempted to give patient BiPAP and see if it would improve. Patient was on BiPAP in the emergency department for 3 hours. A repeat blood gas showed essentially the same pH and pCO2 in the 80s. Case was discussed with the special effects person team. Will place patient in the ICU additional BiPAP. Differential Diagnosis Differential Diagnoses: The differential diagnosis associated with the presentation includes CO2 retention, hypoglycemia, infections, Admission/Observation Consideration of admission/observation: Escalation of care including admission/observation considered Consult Healthcare Provider Management of the patient was discussed with: Shirt Ironer Supervisor Medical Reimbursement Manager Lab Data [facility] Lab Attestation statement: I reviewed the patient's lab results. 01/01/23 14:47 01/01/23 14:47 Labs: Lab Results 01/01/23 01/01/23 01/01/23 Range/Units 13:58 14:47 14:47 WBC 10.1 (4.8-10.8) X10*3/uL RBC 4.44 (4.20-5.50) X10*6/uL Hgb 12.6 (12.0-16.0) g/dl Hct 42.6 (37.0-47.0) % MCV 95.9 (80.0-98.0) fL MCH 28.4 (27.0-33.0) pg MCHC 29.6 L (31.0-35.0) g/dl RDW 14.6 (11.0-16.0) % Plt Count 188 (160-400) X10*3/uL MPV 10.6 (9.4-12.3) fL Immature Gran % (Auto) 0.5 H (0.0-0.4) % Neut % (Auto) 78.0 H (45-73) % Lymph % (Auto) 12.2 L (20-40) % [place] % (Auto) 8.7 (2-11) % Eos % (Auto) 0.5 (0-4) % Baso % (Auto) 0.1 (0-2) % Lymph # (Auto) 1.2 (1.2-4.9) X10*3/uL [place] # (Auto) 0.9 (0.1-1.2) X10*3/uL Eos # (Auto) 0.1 (0.0-0.4) X10*3/uL Baso # (Auto) 0.0 (0.0-0.2) X10*3/uL Abs Immat Gran (auto) 0.05 H (0.00-0.03) X10*3/uL Absolute Neuts (auto) 7.9 (2.0-8.3) x10*3/uL Absolute Nucleated RBC 0.000 (0.0-0.012) X10*3/uL Nucleated RBC % (auto) 0.0 (0.0-0.2) /100WBC O2 Saturation 85.0 % ABG pH at Pt Temp 7.32 L (7.35-7.45) ABG pCO2 at Pt Temp 86 H* (32-45) mmHg ABG pO2 at Pt Temp 52 L (83-108) mmHg ABG HCO3 44 H (22-26) mmol/L ABG Base Excess (Actual) 14.5 mmol/L Sodium 143 (135-145) mmol/L Potassium 5.0 D (3.3-5.1) mmol/L Chloride 97 (96-108) mmol/L Carbon Dioxide 41 H* (22-29) mmol/L Anion Gap 10 L (12-20) BUN 47 H (9-16) mg/dL Creatinine 1.09 (0.5-1.4) mg/dL Estim Creat Clear Calc 71.3 Estimated GFR 51 Random Glucose 235 H (60-115) mg/dL Calcium 8.8 (8.4-10.2) mg/dL Total Bilirubin 0.5 (0.0-1.0) mg/dL Direct Bilirubin 0.1 (0.0-0.5) mg/dL AST 15 (5-31) U/L ALT 15 (0-31) U/L Alkaline Phosphatase 52 (39-117) U/L Total Protein 6.6 (6.5-8.0) g/dL Albumin 3.4 L (3.5-5.0) g/dL Urine Color Urine Appearance Urine pH (5.0-9.0) Ur Specific [place] (1.005-1.025) Urine Protein (Neg-Trace) mg/dL Urine Glucose (UA) (Negative) mg/dL Urine Ketones (Negative) mg/dL Urine Blood (Negative) Urine Nitrite (Negative) Ur Leukocyte Esterase (Negative) Urine RBC (0-2) /HPF Urine WBC (0-5) /HPF Ur Squamous Epith Cells (0-2) /HPF Urine Bacteria (None Seen) Hyaline Casts (0-2) /LPF 01/01/23 01/01/23 Range/Units 14:47 17:54 WBC (4.8-10.8) X10*3/uL RBC (4.20-5.50) X10*6/uL Hgb (12.0-16.0) g/dl Hct (37.0-47.0) % MCV (80.0-98.0) fL MCH (27.0-33.0) pg MCHC (31.0-35.0) g/dl RDW (11.0-16.0) % Plt Count (160-400) X10*3/uL MPV (9.4-12.3) fL Immature Gran % (Auto) (0.0-0.4) % Neut % (Auto) (45-73) % Lymph % (Auto) (20-40) % [place] % (Auto) (2-11) % Eos % (Auto) (0-4) % Baso % (Auto) (0-2) % Lymph # (Auto) (1.2-4.9) X10*3/uL [place] # (Auto) (0.1-1.2) X10*3/uL Eos # (Auto) (0.0-0.4) X10*3/uL Baso # (Auto) (0.0-0.2) X10*3/uL Abs Immat Gran (auto) (0.00-0.03) X10*3/uL Absolute Neuts (auto) (2.0-8.3) x10*3/uL Absolute Nucleated RBC (0.0-0.012) X10*3/uL Nucleated RBC % (auto) (0.0-0.2) /100WBC O2 Saturation 95.0 % ABG pH at Pt Temp 7.32 L (7.35-7.45) ABG pCO2 at Pt Temp 88 H* (32-45) mmHg ABG pO2 at Pt Temp 77 L (83-108) mmHg ABG HCO3 46 H (22-26) mmol/L ABG Base Excess (Actual) 16.4 mmol/L Sodium (135-145) mmol/L Potassium (3.3-5.1) mmol/L Chloride (96-108) mmol/L Carbon Dioxide (22-29) mmol/L Anion Gap (12-20) BUN (9-16) mg/dL Creatinine (0.5-1.4) mg/dL Estim Creat Clear Calc Estimated GFR Random Glucose (60-115) mg/dL Calcium (8.4-10.2) mg/dL Total Bilirubin (0.0-1.0) mg/dL Direct Bilirubin (0.0-0.5) mg/dL AST (5-31) U/L ALT (0-31) U/L Alkaline Phosphatase (39-117) U/L Total Protein (6.5-8.0) g/dL Albumin (3.5-5.0) g/dL Urine Color Yellow Urine Appearance Hazy Urine pH 6.5 (5.0-9.0) Ur Specific [place] 1.025 (1.005-1.025) Urine Protein Negative (Neg-Trace) mg/dL Urine Glucose (UA) 500 H (Negative) mg/dL Urine Ketones Negative (Negative) mg/dL Urine Blood Negative (Negative) Urine Nitrite Negative (Negative) Ur Leukocyte Esterase Negative (Negative) Urine RBC 0-2 (0-2) /HPF Urine WBC 0-5 (0-5) /HPF Ur Squamous Epith Cells 0-2 (0-2) /HPF Urine Bacteria None Seen (None Seen) Hyaline Casts 0-2 (0-2) /LPF Independent Interpretation I performed an independent interpretation of an: EKG Interpretation: My interpretation patient's EKG showed a paced rhythm heart rate was 60. Radiology Impression Discussion of test interpretation with radiology: I have reviewed the radiologist's reading. External Record Review External record reviewed: Inpatient record Critical Care Time Critical Care Time Critical Care Time: Yes Total Critical Care Time: 40 Attestation: I have personally provided 40 minutes of critical care time exclusive of time spent on separately billable procedures. Time includes review of lab data, radiology results, discussion with consultants, and monitoring for potential decompensation. Interventions were performed as documented above Discharge Plan Discharge Clinical Impression: Acute and chronic respiratory failure with hypercapnia Patient Disposition: Admitted As Inpatient Prescriptions: No Action furosemide 40 mg Tablet 40 mg PO DAILY Qty: 30 0RF Protocol: Hold for SBP< HOLD for SBP < : 90 ipratropium-albuterol 0.5 mg-3 mg(2.5 mg base)/3 mL Solution For Nebulization 3 ml INHALATION TID potassium chloride 10 mEq Tablet Extended Release 10 meq PO DAILY Hold Instructions: Recheck K level in 1 week to decide if needed or not. Culturelle 10 billion cell Capsule 1 cap PO BID bupropion HCl 150 mg tablet extended release 24 hr 1 tab PO DAILY Rx Instructions: take with 300mg; tdd 450mg insulin glargine 100 unit/mL Solution 57 unit SUBCUT DAILY magnesium hydroxide [Milk of Magnesia] 400 mg/5 mL Suspension 30 ml PO DAILY PRN (Reason: Constipation) Fleet Enema 19-7 gram/118 mL Enema 118 ml [place] DAILY PRN (Reason: Constipation) fluticasone propion-salmeterol [AirDuo RespiClick] 113-14 mcg/actuation aerosol powdr breath activated 1 inh inhalation DAILY Rx Instructions: rinse mouth after use atorvastatin 80 mg Tablet 80 mg PO BEDTIME sennosides [senna] 8.6 mg Tablet 16.2 mg PO DAILY PRN (Reason: Constipation) acetaminophen 325 mg Tablet 650 mg PO Q4H PRN (Reason: Fever Or Pain) polyethylene glycol 3350 [Miralax] 17 gram Powder In Packet 17 g PO DAILY PRN (Reason: Constipation) tizanidine 4 mg Tablet 4 mg PO BEDTIME PRN (Reason: Muscle Spasm) enalapril maleate 20 mg Tablet 20 mg PO DAILY sertraline 100 mg Tablet 200 mg PO DAILY melatonin 3 mg Tablet 3 mg PO BEDTIME ferrous sulfate 325 mg (65 mg iron) Tablet 325 mg PO DAILY gabapentin 300 mg Capsule 300 mg PO DAILY@1200 gabapentin 300 mg Capsule 600 mg PO BID insulin lispro 100 unit/mL Insulin Pen See Protocol SUBCUT QIDACHS Protocol: Insulin Correction Scale Less than or equal to 110 ---- Give (units): 0 111 to 150 Give (units): 0 151 to 200 Give (units): 2 201 to 250 Give (units): 4 251 to 300 Give (units): 6 301 to 350 Give (units): 8 Greater than 350 Give (units): 10 Call MD if Blood Glucose > : 350 Rx Instructions: SLIDING SCALE amlodipine 5 mg Tablet 5 mg PO DAILY 30 Days Qty: 30 0RF Protocol: Hold for SBP< HOLD for SBP < : 90 aspirin 81 mg Tablet,Chewable 81 mg PO DAILY megestrol 400 mg/10 mL (10 mL) Suspension 400 mg PO TID metformin 500 mg tablet 500 mg PO BID Ozempic 0.25 mg or 0.5 mg (2 mg/3 mL) pen injector 0.25 mg subcut WE acetazolamide 250 mg Tablet 250 mg PO BID Qty: 60 0RF cefuroxime axetil 500 mg tablet 500 mg PO BID Qty: 6 0RF prednisone 20 mg tablet 40 mg PO DAILY Qty: 6 0RF bisacodyl 10 mg suppository 10 mg [place] DAILY PRN (Reason: Constipation) magnesium citrate [Citrate of Magnesia] Solution 150 ml PO DAILY PRN (Reason: Constipation) bupropion HCl 300 mg tablet extended release 24 hr 300 mg PO DAILY Rx Instructions: take with 150mg dose; tdd 450mg insulin lispro 100 unit/mL solution 5 unit subcut TIDAC
[2023-01-01 14:09] LABS: ABG Base Excess 14.5 mmol/L; ABG HCO3 44 mmol/L (22-26); ABG pCO2 86 mmHg (32-45); ABG pH 7.32 (7.35-7.45); ABG pO2 52 mmHg (83-108)
[2023-01-01 14:13] LABS: ABG Refer to POC result
[2023-01-01 14:58] LABS: MANUAL DIFF FLAG NO
[2023-01-01 15:01] LABS: Basophils Percent Auto 0.1 % (0-2); Eosinophils Absolute Auto 0.1 X10*3/uL (0.0-0.4); Eosinophils Percent Auto 0.5 % (0-4); Hematocrit 42.6 % (37.0-47.0); Hemoglobin 12.6 g/dl (12.0-16.0); Imm Gran Abs Auto 0.05 X10*3/uL (0.00-0.03); Imm Gran Pct Auto 0.5 % (0.0-0.4); Lymphocytes Absolute Auto 1.2 X10*3/uL (1.2-4.9); Lymphocytes Percent Auto 12.2 % (20-40); Mean Corpuscular HGB Conc 29.6 g/dl (31.0-35.0); Mean Corpuscular Hemoglobin 28.4 pg (27.0-33.0); Mean Corpuscular Volume 95.9 fL (80.0-98.0); Mean Platelet Volume 10.6 fL (9.4-12.3); Monocytes Absolute Auto 0.9 X10*3/uL (0.1-1.2); Monocytes Percent Auto 8.7 % (2-11); Neutrophils Absolute Auto 7.9 x10*3/uL (2.0-8.3); Platelet Count 188 X10*3/uL (160-400); Red Blood Count 4.44 X10*6/uL (4.20-5.50); Red Cell Distribution Width 14.6 % (11.0-16.0); White Blood Count 10.1 X10*3/uL (4.8-10.8)
[2023-01-01 15:16] LABS: Appearance Urine Hazy; Bacteria Urine None Seen (None Seen); Color Urine Yellow; Glucose Urine UA 500 mg/dL (Negative); Hyaline Casts Urine 0-2 /LPF (0-2); Leukocyte Esterase Urine Negative (Negative); Nitrite Urine Negative (Negative); PH 6.5 (5.0-9.0); RBC Urine 0-2 /HPF (0-2); Specific Gravity - Urine 1.025 (1.005-1.025); Squamous Epithelial Cell Urine 0-2 /HPF (0-2); Urine Blood Negative (Negative); Urine Ketones Negative (Negative); Urine Protein Negative (Neg-Trace); WBC Urine 0-5 /HPF (0-5)
[2023-01-01 15:18] LABS: Alanine Aminotransferase 15 U/L (0-31); Albumin Level 3.4 g/dL (3.5-5.0); Alkaline Phosphatase 52 U/L (39-117); Anion Gap 10 (12-20); Aspartate Amino Transferase 15 U/L (5-31); Bilirubin Direct 0.1 mg/dL (0.0-0.5); Bilirubin Total 0.5 mg/dL (0.0-1.0); Blood Urea Nitrogen 47 mg/dL (9-16); Calcium 8.8 mg/dL (8.4-10.2); Carbon Dioxide 41 mmol/L (22-29); Chloride 97 mmol/L (96-108); Creatinine Clr Calc Pharmacy 71.3; Estimated Glomerular Filt Rate 51; Glucose Random 235 mg/dL (60-115); Sodium 143 mmol/L (135-145); Total Protein 6.6 g/dL (6.5-8.0)
[2023-01-01 18:03] LABS: ABG Base Excess 16.4 mmol/L; ABG HCO3 46 mmol/L (22-26); ABG pCO2 88 mmHg (32-45); ABG pH 7.32 (7.35-7.45); ABG pO2 77 mmHg (83-108)
[2023-01-01 18:03] LABS: ABG Refer to POC result
--- NOTE | 2023-01-01 19:04 | PHA.MEDREC ---
Pharmacy Consult ? Medication Reconciliation Pharmacy has completed the medication reconciliation. Med rec complete using list from [facility]
[2023-01-01 19:20] LABS: ABG Base Excess 20.4 mmol/L; ABG HCO3 50 mmol/L (22-26); ABG pCO2 87 mmHg (32-45); ABG pH 7.36 (7.35-7.45); ABG pO2 60 mmHg (83-108)
[2023-01-01] MEDS: Heparin Sodium,Porcine 5,000 UNIT/ML VIAL 5000 UNIT SUBCUT (19:55)
--- NOTE | 2023-01-01 20:20 | PC.NURSE ---
This scientific technical writer assumed care of this Pt at 1900. Pt on Bipap, sat o2 88-92%, RR 20, equal, unlabored breathing. Pt A&O to self, responsive to tactile stimulation. Pt incontinent of urine, incontinent care provided and repositioned. Skin breakdown and redness noted to buttocks area and redness to perez area.
--- NOTE | 2023-01-01 20:27 | MHC.EDTECH ---
i took over this assignment , the pt was soak and wet with a brief on, a purewick was applied pt was cleaned up and repostioned and boosted up and vitals were taken
--- NOTE | 2023-01-01 20:34 | MHC.EDTECH ---
Took over care at 19:00 from [facility], pt was incontinent of urine, Brief was soiled, Hs care was completed and pure wick was applied, pt was repositioned for comfort, Will continue to monitor.
--- NOTE | 2023-01-01 20:46 | PC.NURSE ---
RN to RN report given to Danitza MUNGUIA, pt will be transported to room 254 by nurse, respiratory therapist and transporter.
--- NOTE | 2023-01-01 20:58 | P.HPCC_ITS ---
History of Present Illness Date of Service: 01/01/23 Attending physician on admission: Cheikh Armenta Chief Complaint: Altered mental status Ms. Perez is a 62-year-old female with a PMH significant for COPD on 4-6L home O2, respiratory failure with hypercapnia, obesity hypoventilation syndrome, insulin-dependent diabetes, HTN, HLD, HFpEF, Heart block AV third degree, dual chamber pacemaker, decubitus ulcer, morbid obesity, and ESBL UTI who presents to the ED from [facility] with episodes of change in mental status. On arrival she was oriented to self, place and time. She had no complaints.? The patient? is well known to the facility with last visit on 12/27/22-12/30/22 for hypoxic respiratory failure with hypercapnia, hyperkalemia, Ecoli UTI and right buttock decubitus ulcer.? She Was treated with ceftriaxone, and sent home on ceftin. On arrival to the emergency room, the patient's blood pressure 139/72, heart rate 65,? respiratory rate 21, O2 Sat 88% on 3LNC. Laboratory data significant for serum bicarb 41, BUN 47, creatinine 1.09.? ABG showed pH 7.32, pCO2 86, PO2 52, HC03 44, B.E.? 14.5. Imaging: CXR - Obese body habitus and hypoinflated lungs. * The persistent opacities in each lung likely represent atelectasis. * There is no overt pulmonary edema, pleural effusion or other significant change. ED course: Patient was placed on BiPAP for 3 hours.? Repeat blood gas showed es sentially the same pH and pCO2 in the 80s.? Admitted to the ICU for management of acute and chronic respiratory failure with hypercapnia. Review of Systems Constitutional: Constitutional: Reports as per HPI and Reports no additional constitutional complaints Eyes: Eyes: Reports no additional eye complaints Cardiovascular: Cardiovascular: Reports no additional cardiovascular complaints Respiratory: Respiratory: Reports no additional respiratory complaints Gastrointestinal: Gastrointestinal: Reports no additional gastrointestinal complaints Genitourinary: Genitourinary: Reports no additional female genitourinary complaints Musculoskeletal: Musculoskeletal: Reports no additional musculoskeletal complaints Psychiatric: Psychiatric: Reports no additional psychiatric complaints Endocrine: Endocrine: Reports no additional endocrine complaints Hematologic/Lymphatic: Hematologic/Lymphatic: Reports no additional hematologic/lymphatic complaints Allergic/Immunologic: Allergic/Immunologic: Reports no additional allergic/immunologic complaints PMFSH Past Medical History Medical History (Updated 01/01/23 @ 21:26 by Kate Enciso NP) Acute and chronic respiratory failure with hypercapnia Acute and chronic respiratory failure with hypercapnia Acute on chronic respiratory failure with hypoxia and hypercapnia Anemia Arthritis Atelectasis of both lungs CHF (congestive heart failure) Clostridium difficile infection Depression Diabetes mellitus, type 2 Diabetic ulcer of foot associated with diabetes mellitus due to underlying condition, with fat layer exposed Heart block AV third degree Hypertension Hypertrophic nonobstructive cardiomyopathy Hypoventilation associated with obesity syndrome Metabolic encephalopathy Morbid obesity Morbid obesity Morbid obesity Obesity hypoventilation syndrome SMILEY (obstructive sleep apnea) PAD (peripheral artery disease) Presence of permanent cardiac pacemaker Presence of permanent cardiac pacemaker Pulmonary embolism Respiratory failure Respiratory failure with hypoxia and hypercapnia Sick sinus syndrome Urinary tract infection due to ESBL Klebsiella Surgical History Surgical History History of total knee replacement Social History Social History Household Members: Spouse Housing: Detention Housing Other:: rehab facility Are you a primary career guidance counselor to a significant other at home: No Do you presently have visiting nurse or other home services: No Unable to assess alcohol history related to: Unable to respond Alcohol intake: unknown Patient Tobacco Use Status: Former Tobacco user Quit Date: 1999 Tobacco use type: Cigarette Cigarette Packs Per Day: 20 Cigarettes Per Day: 400.0 Years Smoked: 20 e-Cigarette/Vaping Use: Never Used Second Hand Smoke Exposure: No Use of substances other than those prescribed or required for medical reasons: Unable to respond Substance Use Type: Unknown Advance Directives: No Do you have thoughts of harming others: None Do you have a plan to hurt others: No Plan Nutrition Risks: On aspiration precautions Patient : No : No Poor oral hygiene: No service: No Current occupational status: disabled Meds Allergies Allergy/AdvReac Type Severity Reaction Status Date / Time latex Allergy Unknown Unknown Verified 10/21/22 13:48 adhesive tape AdvReac Unknown Unknown Verified 10/21/22 13:48 bupropion [From Wellbutrin] AdvReac Unknown Unknown Verified 10/21/22 13:48 ibuprofen AdvReac Unknown Unknown Verified 10/21/22 13:48 Active Medications: Current Medications Acetazolamide (Acetazolamide Sodium 500 Mg Vial) 500 mg IVPUSH BID PENDING SALE TO [facility] Furosemide (Furosemide 40 Mg/4 Ml Vial) 40 mg IVPUSH DAILY PENDING SALE TO [facility]; Protocol Heparin Sodium (Porcine) (Heparin Sodium,Porcine 5,000 Unit/Ml Vial) 5,000 unit SUBCUT Q8H PENDING SALE TO [facility] Last Admin: 01/01/23 19:55 Dose: 5,000 unit Insulin Glargine (Insulin Glargine,Hum.Rec.Anlog 100 Unit/Ml 10 Ml Vial) 50 unit SUBCUT DAILY PENDING SALE TO [facility] Insulin Human Lispro (Insulin Lispro 100 Unit/Ml 3 Ml Vial) 0 unit SUBCUT QIDACHS PENDING SALE TO [facility]; Protocol Home Medications Medication Instructions Recorded Confirmed Last Taken Type acetaminophen 325 mg tablet 650 mg PO Q4H PRN Fever Or Pain 11/18/21 01/01/23 Unknown History atorvastatin 80 mg tablet 80 mg PO BEDTIME 11/18/21 01/01/23 Unknown History enalapril maleate 20 mg tablet 20 mg PO DAILY 11/18/21 01/01/23 Unknown History ferrous sulfate 325 mg (65 mg 325 mg PO DAILY 11/18/21 01/01/23 Unknown History iron) tablet gabapentin 300 mg capsule 300 mg PO DAILY@1200 11/18/21 01/01/23 Unknown History gabapentin 300 mg capsule 600 mg PO BID 11/18/21 01/01/23 Unknown History insulin lispro 100 unit/mL See Protocol subcut QIDACHS 11/18/21 01/01/23 Unknown History subcutaneous pen melatonin 3 mg tablet 3 mg PO BEDTIME 11/18/21 01/01/23 Unknown History polyethylene glycol 3350 17 gram 17 g PO DAILY PRN Constipation 11/18/21 01/01/23 Unknown History oral powder packet (Miralax) sennosides 8.6 mg tablet (senna) 16.2 mg PO DAILY PRN Constipation 11/18/21 01/01/23 Unknown History sertraline 100 mg tablet 200 mg PO DAILY 11/18/21 01/01/23 Unknown History tizanidine 4 mg tablet 4 mg PO BEDTIME PRN Muscle Spasm 11/18/21 01/01/23 Unknown History aspirin 81 mg chewable tablet 81 mg PO DAILY 01/05/22 01/01/23 Unknown History megestrol 400 mg/10 mL (10 mL) 400 mg PO TID 01/05/22 01/01/23 Unknown History oral suspension bupropion HCl 300 mg 24 hr tablet, 300 mg PO DAILY 04/09/22 01/01/23 Unknown History extended release insulin lispro 100 unit/mL 5 unit subcut TIDAC 04/09/22 01/01/23 Unknown History subcutaneous solution Lactobacillus rhamnosus GG 10 1 cap PO BID 10/09/22 01/01/23 Unknown History billion cell capsule (Culturelle) bupropion HCl 150 mg 24 hr tablet, 1 tab PO DAILY 10/09/22 01/01/23 Unknown History extended release ipratropium 0.5 mg-albuterol 3 mg 3 ml inhalation TID 10/09/22 01/01/23 Unknown History (2.5 mg base)/3 mL nebulization soln potassium chloride 10 mEq 10 meq PO DAILY 10/09/22 01/01/23 Unknown History tablet,extended release bisacodyl 10 mg rectal suppository 10 mg NH DAILY PRN Constipation 10/21/22 01/01/23 Unknown History magnesium citrate (Citrate of 150 ml PO DAILY PRN Constipation 10/21/22 01/01/23 Unknown History Magnesia oral) fluticasone 113 mcg-salmeterol 14 1 inh inhalation DAILY 11/09/22 01/01/23 Unknown History mcg/actuation breath activated powdr (AirDuo RespiClick) insulin glargine 100 unit/mL 57 unit subcut DAILY 11/09/22 01/01/23 Unknown History subcutaneous solution magnesium hydroxide 400 mg/5 mL 30 ml PO DAILY PRN Constipation 11/09/22 01/01/23 Unknown History oral suspension (Milk of Magnesia) sodium phosphates 19 gram-7 118 ml [place] DAILY PRN Constipation 11/09/22 01/01/23 Unknown History gram/118 mL enema (Fleet Enema) metformin 500 mg tablet 500 mg PO BID 12/27/22 01/01/23 Unknown History semaglutide 0.25 mg or 0.5 mg (2 0.25 mg subcut WE 12/27/22 01/01/23 Unknown History mg/3 mL) subcutaneous pen injector (Ozempic) Physical Exam Vital Signs: Vital Signs: Last Vital Signs Pulse 66 01/01/23 20:21 Resp 16 01/01/23 20:21 BP 118/46 L 01/01/23 20:21 Pulse Ox 97 04/19/23 20:21 O2 Del Method BiPAP 01/01/23 20:21 O2 Flow Rate 6 01/01/23 20:21 FiO2 30 01/01/23 18:44 Oxygen Flow Rate 3 01/01/23 13:25 BMI result Body Mass Index 33.1 Const: General: cooperative, no acute distress, alert and awake Nutritional Appearance: obese Orientation/consciousness: patient oriented x3 (answering appropriately.) HEENT: Head: Yes normocephalic and Yes atraumatic General nose exam: Normal external nose present (Nares patent, septum midline, sinuses nontender bilaterally.) Mouth: Normal oral and palatal mucosa present (No thrush, tongue in midline, mucosa moist.) Throat: Yes other (No erythema, no exudate.) Neck: Neck: Yes supple (no thyromegaly, trachea midline.) Carotids: normal carotid upstroke Resp: Auscultation: clear to auscultation bilaterally (normal work of breathing, no accessory muscle use) Cardio: Jugular venous distension: no JVD Rate: regular rate Rhythm: regular rhythm Heart sounds: no gallops, no murmurs and no rubs Peripheral pulses: Peripheral pulses 2+ throughout GI: Palpation (GI): Soft to palpation (nondistended.) and nontender Skin: Wounds: wounds noted Bilateral buttock other (Stage II decubitus ulcer) Neuro: General: patient oriented x3 (answering appropriately.) Extrem: General: Yes full ROM, Yes capillary refill normal and Yes no clubbing, cyanosis or edema Psych: Affect: normal affect Attitude: cooperative (answers appropriately) Results Labs 01/01/23 14:47 01/01/23 14:47 Labs: Laboratory Results - last 24 hr 01/01/23 01/01/23 01/01/23 13:58 14:47 14:47 MCV 95.9 MCH 28.4 MCHC 29.6 L RDW 14.6 Plt Count 188 MPV 10.6 Immature Gran % (Auto) 0.5 H Neut % (Auto) 78.0 H Lymph % (Auto) 12.2 L [place] % (Auto) 8.7 Eos % (Auto) 0.5 Baso % (Auto) 0.1 Lymph # (Auto) 1.2 [place] # (Auto) 0.9 Eos # (Auto) 0.1 Baso # (Auto) 0.0 Abs Immat Gran (auto) 0.05 H Absolute Neuts (auto) 7.9 Absolute Nucleated RBC 0.000 Nucleated RBC % (auto) 0.0 O2 Saturation 85.0 ABG pH at Pt Temp 7.32 L ABG pCO2 at Pt Temp 86 H* ABG pO2 at Pt Temp 52 L ABG HCO3 44 H ABG Base Excess (Actual) 14.5 Anion Gap 10 L Estim Creat Clear Calc 71.3 Estimated GFR 51 Random Glucose 235 H Calcium 8.8 Total Bilirubin 0.5 Direct Bilirubin 0.1 AST 15 ALT 15 Alkaline Phosphatase 52 Total Protein 6.6 Albumin 3.4 L Urine Color Urine Appearance Urine pH Ur Specific [place] Urine Protein Urine Glucose (UA) Urine Ketones Urine Blood Urine Nitrite Ur Leukocyte Esterase Urine RBC Urine WBC Ur Squamous Epith Cells Urine Bacteria Hyaline Casts 01/01/23 01/01/23 01/01/23 14:47 17:54 19:11 MCV MCH MCHC RDW Plt Count MPV Immature Gran % (Auto) Neut % (Auto) Lymph % (Auto) [place] % (Auto) Eos % (Auto) Baso % (Auto) Lymph # (Auto) [place] # (Auto) Eos # (Auto) Baso # (Auto) Abs Immat Gran (auto) Absolute Neuts (auto) Absolute Nucleated RBC Nucleated RBC % (auto) O2 Saturation 95.0 89.0 ABG pH at Pt Temp 7.32 L 7.36 ABG pCO2 at Pt Temp 88 H* 87 H* ABG pO2 at Pt Temp 77 L 60 L ABG HCO3 46 H 50 H ABG Base Excess (Actual) 16.4 20.4 Anion Gap Estim Creat Clear Calc Estimated GFR Random Glucose Calcium Total Bilirubin Direct Bilirubin AST ALT Alkaline Phosphatase Total Protein Albumin Urine Color Yellow Urine Appearance Hazy Urine pH 6.5 Ur Specific [place] 1.025 Urine Protein Negative Urine Glucose (UA) 500 H Urine Ketones Negative Urine Blood Negative Urine Nitrite Negative Ur Leukocyte Esterase Negative Urine RBC 0-2 Urine WBC 0-5 Ur Squamous Epith Cells 0-2 Urine Bacteria None Seen Hyaline Casts 0-2 Imaging Radiologist's Impressions: Impressions Chest X-Ray 01/01/23 14:09 IMPRESSION: * Obese body habitus and hypoinflated lungs. * The persistent opacities in each lung likely represent atelectasis. * There is no overt pulmonary edema, pleural effusion or other significant change. Assessment and Plan (1) Acute and chronic respiratory failure with hypercapnia: Status: Acute (2) Obesity hypoventilation syndrome: Status: Inactive (3) BERNIE (acute kidney injury): Status: Resolved (4) Pressure injury of deep tissue of buttock: Status: Acute Plan 62-year-old female with a PMH significant for COPD on 4-6L home O2, respiratory failure with hypercapnia, obesity hypoventilation syndrome, insulin-dependent diabetes, HTN, HLD, HFpEF, Heart block AV third degree, dual chamber pacemaker, decubitus ulcer, morbid obesity, and ESBL UTI admitted to the ICU for management of acute and chronic respiratory failure with hypercapnia. Neuro:? No acute issues. Cardiac:? No acute issues. Pulmonary:? Acute respiratory failure with hypercapnia. Acetazolamide. Lasix. Continue BiPAP.? Keep O2 sat 88-92.? VBG in a.m. Renal:? BERNIE. Lasix.? Monitor renal indices and urine output. Endo:? No acute issues.?? GI:? No acute issues. ID:? No acute issues. Heme/Onc:? No acute issues. Psych:? No acute issues. Miscellaneous:? Decubitus ulcers.? Usual care. Will place wound consult. Time Spent With Patient Time: Total time managing care of this patient today ____ minutes.
[2023-01-01 21:05] LABS: Glucose, Whole Blood 179 mg/dL (60-115)
[2023-01-01] MEDS: acetaZOLAMIDE sodium 500 MG VIAL IVPUSH (21:15)
[2023-01-01] MEDS: Insulin Lispro 100 UNIT/ML 3 ML VIAL SUBCUT (21:15)
[2023-01-01 23:17] LABS: ABG Refer to POC result
[2023-01-02] VITALS (26 sets, daily range): BP systolic 127–157; BP diastolic 60–79; PULSE 60–79; RESP 12–28; TEMP 37.4–37.8; O2SAT 87–94; BMI 51.6
[2023-01-02 00:25] LABS: Venous Blood Gas Refer to POC result
[2023-01-02 00:26] LABS: VBG Base Excess 14.6 mmol/L; VBG HCO3 40 mmol/L (22-26); VBG pCO2 55 mmHg; VBG pH 7.47 (7.32-7.43); VBG pO2 117 mmHg
[2023-01-02] MEDS: Heparin Sodium,Porcine 5,000 UNIT/ML VIAL 5000 UNIT SUBCUT ×3 (02:37→17:51)
[2023-01-02 05:50] LABS: VBG Base Excess 21.9 mmol/L; VBG HCO3 50 mmol/L (22-26); VBG pCO2 73 mmHg; VBG pH 7.44 (7.32-7.43); VBG pO2 38 mmHg
[2023-01-02 05:53] LABS: MANUAL DIFF FLAG NO
[2023-01-02 05:56] LABS: Basophils Percent Auto 0.3 % (0-2); Eosinophils Absolute Auto 0.1 X10*3/uL (0.0-0.4); Eosinophils Percent Auto 1.1 % (0-4); Hematocrit 39.9 % (37.0-47.0); Imm Gran Abs Auto 0.04 X10*3/uL (0.00-0.03); Imm Gran Pct Auto 0.4 % (0.0-0.4); Lymphocytes Absolute Auto 2.3 X10*3/uL (1.2-4.9); Lymphocytes Percent Auto 21.7 % (20-40); Mean Corpuscular HGB Conc 30.1 g/dl (31.0-35.0); Mean Corpuscular Volume 93.2 fL (80.0-98.0); Mean Platelet Volume 10.8 fL (9.4-12.3); Monocytes Absolute Auto 0.8 X10*3/uL (0.1-1.2); Monocytes Percent Auto 7.2 % (2-11); Neutrophils Absolute Auto 7.4 x10*3/uL (2.0-8.3); Neutrophils Percent Auto 69.3 % (45-73); Platelet Count 172 X10*3/uL (160-400); Red Blood Count 4.28 X10*6/uL (4.20-5.50); Red Cell Distribution Width 14.6 % (11.0-16.0); White Blood Count 10.6 X10*3/uL (4.8-10.8)
[2023-01-02 06:10] LABS: Venous Blood Gas Refer to POC result
[2023-01-02 06:14] LABS: Albumin Level 3.4 g/dL (3.5-5.0); Anion Gap 14 (12-20); Blood Urea Nitrogen 40 mg/dL (9-16); Calcium 8.9 mg/dL (8.4-10.2); Carbon Dioxide 34 mmol/L (22-29); Chloride 100 mmol/L (96-108); Creatinine Clr Calc Pharmacy 110.6; Estimated Glomerular Filt Rate > 60; Glucose Random 133 mg/dL (60-115); Magnesium 1.9 mg/dL (1.6-2.6); Phosphorus 1.8 mg/dL (2.7-4.5); Potassium 3.6 mmol/L (3.3-5.1); Sodium 144 mmol/L (135-145)
[2023-01-02 07:36] LABS: Glucose, Whole Blood 143 mg/dL (60-115)
[2023-01-02] MEDS: Potassium Phosphate/NS 15 MMOL/250 ML PLAST..BAG 62.5 MMOL IV (07:53)
[2023-01-02] MEDS: acetaZOLAMIDE sodium 500 MG VIAL IVPUSH ×2 (07:55→21:17)
[2023-01-02] MEDS: Furosemide 40 MG/4 ML VIAL IVPUSH (07:55)
[2023-01-02] MEDS: Insulin Glargine,Hum.rec.anlog 100 UNIT/ML 10 ML VIAL 50 UNIT SUBCUT (07:56)
--- NOTE | 2023-01-02 09:56 | P.PNCC_ITS ---
Subjective Subjective Date of Service: 01/02/23 Interval History: 62-year-old lady with underlying morbid obesity, obesity hyperventilation with CO2 retention, COPD on home O2 at 3-4 L lung diabetes mellitus, diastolic heart failure, third-degree AV block status post dual-chamber pacemaker, multiple admissions for acute on chronic respiratory failure admitted on 01/01/2023 with confusion secondary to CO2 narcosis from acute on chronic hypercapnic respiratory failure on the background of worsening congestive heart failure initially requiring BiPAP support. Patient has admitted to intensive care unit, started on diuresis and titrated off BiPAP support. Critical Care Time (minutes): 0 Physical Exam Vital Signs: Vital Signs: Last Vital Signs Temp 99.7 F 01/02/23 09:00 Pulse 65 01/02/23 09:00 Resp 22 H 01/02/23 09:00 BP 157/79 H 01/02/23 09:00 Pulse Ox 91 L 01/02/23 09:00 O2 Del Method Oxymask 01/02/23 09:00 O2 Flow Rate 3 01/02/23 09:00 FiO2 30 01/02/23 08:00 Oxygen Flow Rate 3 01/01/23 13:25 BMI result Body Mass Index 51.6 Const: General: no acute distress, alert and awake Nutritional Appearance: obese Eyes: Sclerae: sclerae normal EOM: EOMs intact bilaterally Neck: Neck: Yes no lymphadenopathy, Yes trachea midline and Yes supple Resp: Effort & Inspection: normal respiratory effort and no respiratory distress Auscultation: clear to auscultation bilaterally Cardio: Rate: regular rate Rhythm: regular rhythm Heart sounds: no gallops, no murmurs and no rubs GI: Palpation (GI): Soft to palpation and Other GI palpation findings present ( Nontender) Auscultation: normal bowel sounds Extrem: General: No clubbing, No cyanosis and Yes edema (1+ bilateral) Objective Data Labs 01/02/23 05:44 01/02/23 05:44 Labs: Laboratory Results - last 24 hr 01/01/23 01/01/23 01/01/23 13:58 14:47 14:47 WBC 10.1 RBC 4.44 Hgb 12.6 Hct 42.6 MCV 95.9 MCH 28.4 MCHC 29.6 L RDW 14.6 Plt Count 188 MPV 10.6 Immature Gran % (Auto) 0.5 H Neut % (Auto) 78.0 H Lymph % (Auto) 12.2 L [place] % (Auto) 8.7 Eos % (Auto) 0.5 Baso % (Auto) 0.1 Lymph # (Auto) 1.2 [place] # (Auto) 0.9 Eos # (Auto) 0.1 Baso # (Auto) 0.0 Abs Immat Gran (auto) 0.05 H Absolute Neuts (auto) 7.9 Absolute Nucleated RBC 0.000 Nucleated RBC % (auto) 0.0 O2 Saturation 85.0 ABG pH at Pt Temp 7.32 L ABG pCO2 at Pt Temp 86 H* ABG pO2 at Pt Temp 52 L ABG HCO3 44 H ABG Base Excess (Actual) 14.5 VBG pH VBG pCO2 VBG pO2 VBG HCO3 VBG O2 Saturation VBG Base Excess Sodium 143 Potassium 5.0 D Chloride 97 Carbon Dioxide 41 H* Anion Gap 10 L BUN 47 H Creatinine 1.09 Estim Creat Clear Calc 71.3 Estimated GFR 51 POC Glucose Random Glucose 235 H Calcium 8.8 Phosphorus Magnesium Total Bilirubin 0.5 Direct Bilirubin 0.1 AST 15 ALT 15 Alkaline Phosphatase 52 Total Protein 6.6 Albumin 3.4 L Urine Color Urine Appearance Urine pH Ur Specific [place] Urine Protein Urine Glucose (UA) Urine Ketones Urine Blood Urine Nitrite Ur Leukocyte Esterase Urine RBC Urine WBC Ur Squamous Epith Cells Urine Bacteria Hyaline Casts 01/01/23 01/01/23 01/01/23 14:47 17:54 19:11 WBC RBC Hgb Hct MCV MCH MCHC RDW Plt Count MPV Immature Gran % (Auto) Neut % (Auto) Lymph % (Auto) [place] % (Auto) Eos % (Auto) Baso % (Auto) Lymph # (Auto) [place] # (Auto) Eos # (Auto) Baso # (Auto) Abs Immat Gran (auto) Absolute Neuts (auto) Absolute Nucleated RBC Nucleated RBC % (auto) O2 Saturation 95.0 89.0 ABG pH at Pt Temp 7.32 L 7.36 ABG pCO2 at Pt Temp 88 H* 87 H* ABG pO2 at Pt Temp 77 L 60 L ABG HCO3 46 H 50 H ABG Base Excess (Actual) 16.4 20.4 VBG pH VBG pCO2 VBG pO2 VBG HCO3 VBG O2 Saturation VBG Base Excess Sodium Potassium Chloride Carbon Dioxide Anion Gap BUN Creatinine Estim Creat Clear Calc Estimated GFR POC Glucose Random Glucose Calcium Phosphorus Magnesium Total Bilirubin Direct Bilirubin AST ALT Alkaline Phosphatase Total Protein Albumin Urine Color Yellow Urine Appearance Hazy Urine pH 6.5 Ur Specific [employer] 1.025 Urine Protein Negative Urine Glucose (UA) 500 H Urine Ketones Negative Urine Blood Negative Urine Nitrite Negative Ur Leukocyte Esterase Negative Urine RBC 0-2 Urine WBC 0-5 Ur Squamous Epith Cells 0-2 Urine Bacteria None Seen Hyaline Casts 0-2 01/01/23 01/02/23 01/02/23 21:01 00:19 05:42 WBC RBC Hgb Hct MCV MCH MCHC RDW Plt Count MPV Immature Gran % (Auto) Neut % (Auto) Lymph % (Auto) [place] % (Auto) Eos % (Auto) Baso % (Auto) Lymph # (Auto) [place] # (Auto) Eos # (Auto) Baso # (Auto) Abs Immat Gran (auto) Absolute Neuts (auto) Absolute Nucleated RBC Nucleated RBC % (auto) O2 Saturation ABG pH at Pt Temp ABG pCO2 at Pt Temp ABG pO2 at Pt Temp ABG HCO3 ABG Base Excess (Actual) VBG pH 7.47 H 7.44 H VBG pCO2 55 73 VBG pO2 117 38 VBG HCO3 40 H 50 H VBG O2 Saturation 99.0 65.0 VBG Base Excess 14.6 21.9 Sodium Potassium Chloride Carbon Dioxide Anion Gap BUN Creatinine Estim Creat Clear Calc Estimated GFR POC Glucose 179 H Random Glucose Calcium Phosphorus Magnesium Total Bilirubin Direct Bilirubin AST ALT Alkaline Phosphatase Total Protein Albumin Urine Color Urine Appearance Urine pH Ur Specific [employer] Urine Protein Urine Glucose (UA) Urine Ketones Urine Blood Urine Nitrite Ur Leukocyte Esterase Urine RBC Urine WBC Ur Squamous Epith Cells Urine Bacteria Hyaline Casts 01/02/23 01/02/23 01/02/23 05:44 05:44 07:29 WBC 10.6 RBC 4.28 Hgb 12.0 Hct 39.9 MCV 93.2 MCH 28.0 MCHC 30.1 L RDW 14.6 Plt Count 172 MPV 10.8 Immature Gran % (Auto) 0.4 Neut % (Auto) 69.3 Lymph % (Auto) 21.7 [place] % (Auto) 7.2 Eos % (Auto) 1.1 Baso % (Auto) 0.3 Lymph # (Auto) 2.3 [place] # (Auto) 0.8 Eos # (Auto) 0.1 Baso # (Auto) 0.0 Abs Immat Gran (auto) 0.04 H Absolute Neuts (auto) 7.4 Absolute Nucleated RBC 0.000 Nucleated RBC % (auto) 0.0 O2 Saturation ABG pH at Pt Temp ABG pCO2 at Pt Temp ABG pO2 at Pt Temp ABG HCO3 ABG Base Excess (Actual) VBG pH VBG pCO2 VBG pO2 VBG HCO3 VBG O2 Saturation VBG Base Excess Sodium 144 Potassium 3.6 D Chloride 100 Carbon Dioxide 34 H Anion Gap 14 BUN 40 H Creatinine 0.91 Estim Creat Clear Calc 110.6 Estimated GFR > 60 POC Glucose 143 H Random Glucose 133 H Calcium 8.9 Phosphorus 1.8 L Magnesium 1.9 Total Bilirubin Direct Bilirubin AST ALT Alkaline Phosphatase Total Protein Albumin 3.4 L Urine Color Urine Appearance Urine pH Ur Specific [employer] [employer] Urine Protein Urine Glucose (UA) Urine Ketones Urine Blood Urine Nitrite Ur Leukocyte Esterase Urine RBC Urine WBC Ur Squamous Epith Cells Urine Bacteria Hyaline Casts Progress Note: A&P Assessment and plan (1) Acute and chronic respiratory failure with hypercapnia: Status: Acute (2) Hypoventilation associated with obesity syndrome: Status: Acute (3) Diabetes mellitus, type 2: Status: Acute (4) CHF (congestive heart failure): Status: Acute (5) Morbid obesity: Status: Acute Plan Assessment: 62-year-old lady with underlying chronic hypoxic and hypercapnic respiratory failure secondary to obesity hypoventilation, COPD, and diastolic heart failure admitted with an acute exacerbation initially requiring BiPAP support, now titrated down to nasal cannula Plan: Neuro: No acute issues. Cardiac: Acute on chronic diastolic congestive heart failure improving with d iuresis. Pulmonary: Acute on chronic hypercapnic respiratory failure on the background of chronic hypoxic and hypercapnic respiratory failure secondary to obesity hypoventilation, COPD, and diastolic heart failure. Initially required BiPAP, now titrated to nasal cannula. Maintain O2 saturation not higher than 92% secondary to concern of CO2 retention/narcosis. Continue nocturnal BiPAP. Continue acetazolamide. Renal: No acute issues. Endo: No acute issues. Underlying diabetes mellitus. GI: No acute issues. ID: No acute issues Heme/Onc: No acute issues. Psych: No acute issues. Miscellaneous: No acute issues. Prophylaxis: Heparin Diet: Diabetic At this time patient is appropriate for transfer to telemetry [place]. Transfer discussed with Dr. Batista. Quality Stroke Does the patient have a stroke diagnosis?: No VTE Prior VTE?: No VTE Risk Level:: Medical - moderate - high VTE Device Contraindication: Treatment Not Indicated VTE Drug Contraindication: N/A - Med Ordered
--- NOTE | 2023-01-02 10:47 | MHC.CM.PN ---
This filing writer attempted to meet with patient, care being provided RN team. Placed call to . Patient is LTC @ [facility]. Plan to return when medically stable. Return referral placed. Transport via BLS.
[2023-01-02 11:15] LABS: Glucose, Whole Blood 157 mg/dL (60-115)
[2023-01-02] MEDS: Insulin Lispro 100 UNIT/ML 3 ML VIAL SUBCUT ×3 (12:01→21:17)
[2023-01-02 14:44] LABS: ABG HCO3 44 mmol/L (22-26); ABG pCO2 69 mmHg (32-45); ABG pH 7.41 (7.35-7.45); ABG pO2 70 mmHg (83-108)
[2023-01-02 17:15] LABS: Glucose, Whole Blood 209 mg/dL (60-115)
[2023-01-02 21:13] LABS: Glucose, Whole Blood 226 mg/dL (60-115)
--- NOTE | 2023-01-02 22:43 | P.CONWO_ITS ---
History of Present Illness Data of Consult Service Date: 01/02/23 Primary Care Provider: Tita Bal MD HPI Reason for consult: buttock wounds Pt wqs here with resp failure and was noted to have stage 2 buttock wounds. she was 2 days ago and was readmitted last night and wounds are stable at stage 2 [facility] Medical History (Updated 01/02/23 @ 10:11 by Cheikh Armenta MD) Acute and chronic respiratory failure with hypercapnia Acute and chronic respiratory failure with hypercapnia Acute on chronic respiratory failure with hypoxia and hypercapnia Anemia Arthritis Atelectasis of both lungs CHF (congestive heart failure) Clostridium difficile infection Depression Diabetes mellitus, type 2 Diabetic ulcer of foot associated with diabetes mellitus due to underlying condition, with fat layer exposed Heart block AV third degree Hypertension Hypertrophic nonobstructive cardiomyopathy Hypoventilation associated with obesity syndrome Metabolic encephalopathy Morbid obesity Morbid obesity Morbid obesity Obesity hypoventilation syndrome SMILEY (obstructive sleep apnea) PAD (peripheral artery disease) Presence of permanent cardiac pacemaker Presence of permanent cardiac pacemaker Pulmonary embolism Respiratory failure Respiratory failure with hypoxia and hypercapnia Sick sinus syndrome Urinary tract infection due to ESBL Klebsiella Surgical History History of total knee replacement Social History Household Members: Spouse Housing: Group Home Housing Other:: rehab facility Are you a primary home care consultant to a significant other at home: No Do you presently have visiting nurse or other home services: No Unable to assess alcohol history related to: Unable to respond Alcohol intake: unknown Patient Tobacco Use Status: Former Tobacco user Quit Date: 1999 Tobacco use type: Cigarette Cigarette Packs Per Day: 20 Cigarettes Per Day: 400.0 Years Smoked: 20 e-Cigarette/Vaping Use: Never Used Second Hand Smoke Exposure: No Use of substances other than those prescribed or required for medical reasons: Unable to respond Substance Use Type: Unknown Currently Displaying Signs/Symptoms of Drug Intoxication Withdrawal: No Advance Directives: No Do you have thoughts of harming others: None Do you have a plan to hurt others: No Plan Nutrition Risks: On aspiration precautions Patient : No : No Poor oral hygiene: No service: No Current occupational status: disabled Meds Allergies Allergy/AdvReac Type Severity Reaction Status Date / Time latex Allergy Unknown Unknown Verified 10/21/22 13:48 adhesive tape AdvReac Unknown Unknown Verified 10/21/22 13:48 bupropion [From Wellbutrin] AdvReac Unknown Unknown Verified 10/21/22 13:48 ibuprofen AdvReac Unknown Unknown Verified 10/21/22 13:48 Active Medications: Current Medications Acetazolamide (Acetazolamide Sodium 500 Mg Vial) 500 mg IVPUSH BID [facility] Last Admin: 01/02/23 21:17 Dose: 500 mg Furosemide (Furosemide 40 Mg/4 Ml Vial) 40 mg IVPUSH DAILY [facility]; Protocol Last Admin: 01/02/23 07:55 Dose: 40 mg Heparin Sodium (Porcine) (Heparin Sodium,Porcine 5,000 Unit/Ml Vial) 5,000 unit SUBCUT Q8H [facility] Last Admin: 01/02/23 17:51 Dose: 5,000 unit Insulin Glargine (Insulin Glargine,Hum.Rec.Anlog 100 Unit/Ml 10 Ml Vial) 50 unit SUBCUT DAILY [facility] Last Admin: 01/02/23 07:56 Dose: 50 unit Insulin Human Lispro (Insulin Lispro 100 Unit/Ml 3 Ml Vial) 0 unit SUBCUT QI [facility]; Protocol Last Admin: 01/02/23 21:17 Dose: 4 unit Home Medications Medication Instructions Recorded Confirmed Last Taken Type acetaminophen 325 mg tablet 650 mg PO Q4H PRN Fever Or Pain 11/18/21 01/01/23 Unknown History atorvastatin 80 mg tablet 80 mg PO BEDTIME 11/18/21 01/01/23 Unknown History enalapril maleate 20 mg tablet 20 mg PO DAILY 11/18/21 01/01/23 Unknown History ferrous sulfate 325 mg (65 mg 325 mg PO DAILY 11/18/21 01/01/23 Unknown History iron) tablet gabapentin 300 mg capsule 300 mg PO DAILY@1200 11/18/21 01/01/23 Unknown History gabapentin 300 mg capsule 600 mg PO BID 11/18/21 01/01/23 Unknown History insulin lispro 100 unit/mL See Protocol subcut QIDACHS 11/18/21 01/01/23 Unknown History subcutaneous pen melatonin 3 mg tablet 3 mg PO BEDTIME 11/18/21 01/01/23 Unknown History polyethylene glycol 3350 17 gram 17 g PO DAILY PRN Constipation 11/18/21 01/01/23 Unknown History oral powder packet (Miralax) sennosides 8.6 mg tablet (senna) 16.2 mg PO DAILY PRN Constipation 11/18/21 01/01/23 Unknown History sertraline 100 mg tablet 200 mg PO DAILY 11/18/21 01/01/23 Unknown History tizanidine 4 mg tablet 4 mg PO BEDTIME PRN Muscle Spasm 11/18/21 01/01/23 Unknown History aspirin 81 mg chewable tablet 81 mg PO DAILY 01/05/22 01/01/23 Unknown History megestrol 400 mg/10 mL (10 mL) 400 mg PO TID 01/05/22 01/01/23 Unknown History oral suspension bupropion HCl 300 mg 24 hr tablet, 300 mg PO DAILY 04/09/22 01/01/23 Unknown History extended release insulin lispro 100 unit/mL 5 unit subcut TIDAC 04/09/22 01/01/23 Unknown History subcutaneous solution Lactobacillus rhamnosus GG 10 1 cap PO BID 10/09/22 01/01/23 Unknown History billion cell capsule (Culturelle) bupropion HCl 150 mg 24 hr tablet, 1 tab PO DAILY 10/09/22 01/01/23 Unknown History extended release ipratropium 0.5 mg-albuterol 3 mg 3 ml inhalation TID 10/09/22 01/01/23 Unknown History (2.5 mg base)/3 mL nebulization soln potassium chloride 10 mEq 10 meq PO DAILY 10/09/22 01/01/23 Unknown History tablet,extended release bisacodyl 10 mg rectal suppository 10 mg DE DAILY PRN Constipation 10/21/22 01/01/23 Unknown History magnesium citrate (Citrate of 150 ml PO DAILY PRN Constipation 10/21/22 01/01/23 Unknown History Magnesia oral) fluticasone 113 mcg-salmeterol 14 1 inh inhalation DAILY 11/09/22 01/01/23 Unknown History mcg/actuation breath activated powdr (AirDuo RespiClick) insulin glargine 100 unit/mL 57 unit subcut DAILY 11/09/22 01/01/23 Unknown History subcutaneous solution magnesium hydroxide 400 mg/5 mL 30 ml PO DAILY PRN Constipation 11/09/22 01/01/23 Unknown History oral suspension (Milk of Magnesia) sodium phosphates 19 gram-7 118 ml DE DAILY PRN Constipation 11/09/22 01/01/23 Unknown History gram/118 mL enema (Fleet Enema) metformin 500 mg tablet 500 mg PO BID 12/27/22 01/01/23 Unknown History semaglutide 0.25 mg or 0.5 mg (2 0.25 mg subcut WE 12/27/22 01/01/23 Unknown History mg/3 mL) subcutaneous pen injector (Ozempic) Physical Exam Vital Signs and Narrative: Vital Signs: Last Vital Signs Temp 100.0 F 01/02/23 20:00 Pulse 79 01/02/23 20:00 Resp 28 H 01/02/23 20:00 BP 140/71 H 01/02/23 20:00 Pulse Ox 91 L 01/02/23 20:00 O2 Del Method Oxymask 01/02/23 20:00 O2 Flow Rate 3 01/02/23 20:00 FiO2 30 01/02/23 08:00 Oxygen Flow Rate 3 01/01/23 13:25 BMI result Body Mass Index 51.6 Skin: Other: buttock area bilaterally upper aspect near midline areas with skin breakdown to dermis not to fat and some superficial skin sloughing no infection Results Labs 01/02/23 05:44 01/02/23 05:44 Labs: Laboratory Results - last 24 hr 01/02/23 01/02/23 01/02/23 00:19 05:42 05:44 MCV 93.2 MCH 28.0 MCHC 30.1 L RDW 14.6 Plt Count 172 MPV 10.8 Immature Gran % (Auto) 0.4 Neut % (Auto) 69.3 Lymph % (Auto) 21.7 [place] % (Auto) 7.2 Eos % (Auto) 1.1 Baso % (Auto) 0.3 Lymph # (Auto) 2.3 [place] # (Auto) 0.8 Eos # (Auto) 0.1 Baso # (Auto) 0.0 Abs Immat Gran (auto) 0.04 H Absolute Neuts (auto) 7.4 Absolute Nucleated RBC 0.000 Nucleated RBC % (auto) 0.0 O2 Saturation ABG pH at Pt Temp ABG pCO2 at Pt Temp ABG pO2 at Pt Temp ABG HCO3 VBG pH 7.47 H 7.44 H VBG pCO2 55 73 VBG pO2 117 38 VBG HCO3 40 H 50 H VBG O2 Saturation 99.0 65.0 VBG Base Excess 14.6 21.9 Anion Gap Estim Creat Clear Calc Estimated GFR POC Glucose Random Glucose Calcium Phosphorus Magnesium Albumin 01/02/23 01/02/23 01/02/23 05:44 07:29 11:09 MCV MCH MCHC RDW Plt Count MPV Immature Gran % (Auto) Neut % (Auto) Lymph % (Auto) [place] % (Auto) Eos % (Auto) Baso % (Auto) Lymph # (Auto) [place] # (Auto) Eos # (Auto) Baso # (Auto) Abs Immat Gran (auto) Absolute Neuts (auto) Absolute Nucleated RBC Nucleated RBC % (auto) O2 Saturation ABG pH at Pt Temp ABG pCO2 at Pt Temp ABG pO2 at Pt Temp ABG HCO3 VBG pH VBG pCO2 VBG pO2 VBG HCO3 VBG O2 Saturation VBG Base Excess Anion Gap 14 Estim Creat Clear Calc 110.6 Estimated GFR > 60 POC Glucose 143 H 157 H Random Glucose 133 H Calcium 8.9 Phosphorus 1.8 L Magnesium 1.9 Albumin 3.4 L 01/02/23 01/02/23 01/02/23 14:36 17:11 21:09 MCV MCH MCHC RDW Plt Count MPV Immature Gran % (Auto) Neut % (Auto) Lymph % (Auto) [place] % (Auto) Eos % (Auto) Baso % (Auto) Lymph # (Auto) [place] # (Auto) Eos # (Auto) Baso # (Auto) Abs Immat Gran (auto) Absolute Neuts (auto) Absolute Nucleated RBC Nucleated RBC % (auto) O2 Saturation 93.0 ABG pH at Pt Temp 7.41 ABG pCO2 at Pt Temp 69 H* ABG pO2 at Pt Temp 70 L ABG HCO3 44 H VBG pH VBG pCO2 VBG pO2 VBG HCO3 VBG O2 Saturation VBG Base Excess Anion Gap Estim Creat Clear Calc Estimated GFR POC Glucose 209 H 226 H Random Glucose Calcium Phosphorus Magnesium Albumin Assessment and Plan (1) Pressure ulcer, stage II, skin breakdown: Status: Acute Plan stable skin breakdown - pt to be turned, offloading air mattress, zinc oxide and foam dressing. improve resp status adn underlying med issues Time Spent With Patient Time: Total time managing care of this patient today ____ minutes.
[2023-01-03] VITALS (10 sets, daily range): BP systolic 125–158; BP diastolic 60–74; PULSE 62–87; RESP 18–91; TEMP 36.1–36.9; O2SAT 20–96; BMI 51.4
[2023-01-03 01:14] LABS: ABG Refer to POC result
[2023-01-03] MEDS: Heparin Sodium,Porcine 5,000 UNIT/ML VIAL 5000 UNIT SUBCUT ×3 (01:38→17:53)
[2023-01-03 07:00] LABS: MANUAL DIFF FLAG NO
[2023-01-03 07:03] LABS: Venous Blood Gas Refer to POC result
[2023-01-03 07:03] LABS: Basophils Percent Auto 0.2 % (0-2); Eosinophils Absolute Auto 0.1 X10*3/uL (0.0-0.4); Eosinophils Percent Auto 1.6 % (0-4); Hematocrit 36.8 % (37.0-47.0); Hemoglobin 11.7 g/dl (12.0-16.0); Imm Gran Abs Auto 0.04 X10*3/uL (0.00-0.03); Imm Gran Pct Auto 0.4 % (0.0-0.4); Lymphocytes Absolute Auto 2.7 X10*3/uL (1.2-4.9); Lymphocytes Percent Auto 29.7 % (20-40); Mean Corpuscular HGB Conc 31.8 g/dl (31.0-35.0); Mean Corpuscular Hemoglobin 28.9 pg (27.0-33.0); Mean Corpuscular Volume 90.9 fL (80.0-98.0); Mean Platelet Volume 10.7 fL (9.4-12.3); Monocytes Absolute Auto 0.7 X10*3/uL (0.1-1.2); Monocytes Percent Auto 7.8 % (2-11); Neutrophils Absolute Auto 5.4 x10*3/uL (2.0-8.3); Neutrophils Percent Auto 60.3 % (45-73); Platelet Count 166 X10*3/uL (160-400); Red Blood Count 4.05 X10*6/uL (4.20-5.50)
[2023-01-03 07:06] LABS: VBG Base Excess 9.1 mmol/L; VBG HCO3 33 mmol/L (22-26); VBG pCO2 45 mmHg; VBG pH 7.47 (7.32-7.43); VBG pO2 78 mmHg
[2023-01-03 07:08] LABS: Glucose, Whole Blood 140 mg/dL (60-115)
[2023-01-03 07:32] LABS: Anion Gap 15 (12-20); Blood Urea Nitrogen 38 mg/dL (9-16); Calcium 8.4 mg/dL (8.4-10.2); Carbon Dioxide 27 mmol/L (22-29); Chloride 103 mmol/L (96-108); Creatinine Clr Calc Pharmacy 117.2; Estimated Glomerular Filt Rate > 60; Glucose Random 145 mg/dL (60-115); Magnesium 1.9 mg/dL (1.6-2.6); Phosphorus 1.9 mg/dL (2.7-4.5); Potassium 3.5 mmol/L (3.3-5.1); Sodium 141 mmol/L (135-145)
[2023-01-03] MEDS: Insulin Glargine,Hum.rec.anlog 100 UNIT/ML 10 ML VIAL 50 UNIT SUBCUT (09:18)
[2023-01-03] MEDS: acetaZOLAMIDE sodium 500 MG VIAL IVPUSH ×2 (09:20→22:38)
[2023-01-03] MEDS: Furosemide 40 MG/4 ML VIAL IVPUSH (09:20)
--- NOTE | 2023-01-03 10:39 | P.PNIM_ITS ---
Subjective Subjective Date of Service: 01/04/23 Interval History: 62-year-old lady with underlying morbid obesity, obesity hypOventilation with CO2 retention, COPD on home O2 at 3-4 L lung diabetes mellitus, diastolic heart failure, third-degree AV block status post dual-chamber pacemaker, multiple admissions for acute on chronic respiratory failure admitted on 01/01/2023 with confusion secondary to CO2 narcosis from acute on chronic hypercapnic respiratory failure on the background of worsening congestive heart failure initially requiring BiPAP support. Patient has admitted to intensive care unit, started on diuresis and titrated off BiPAP support, transfer out of ICU , no on oxymizer Physical Exam Vital Signs: Vital Signs: Last Vital Signs Temp 97.8 F 01/03/23 07:45 Pulse 70 01/03/23 07:45 Resp 18 01/03/23 07:45 BP 158/74 H 01/03/23 07:45 Pulse Ox 91 L 01/03/23 07:45 O2 Del Method BiPAP 01/03/23 07:45 O2 Flow Rate 3 01/02/23 20:00 FiO2 30 01/02/23 08:00 Oxygen Flow Rate 3 01/01/23 13:25 BMI result Body Mass Index 51.4 Const: Other: General: AO X 3, no acute distress Resp: CTA bilateral CVS: S1,S2,RRR GI: +BS, NT, no distention Skin: No rash Neuro: motor grossly intact Psych: appropriate affect Objective Data Active Medications Acetazolamide (Acetazolamide Sodium 500 Mg Vial) 500 mg IVPUSH BID [facility] Last Admin: 01/03/23 09:20 Dose: 500 mg Documented By: FAITH Furosemide (Furosemide 40 Mg/4 Ml Vial) 40 mg IVPUSH DAILY [facility]; Protocol Last Admin: 01/03/23 09:20 Dose: 40 mg Documented By: FAITH Heparin Sodium (Porcine) (Heparin Sodium,Porcine 5,000 Unit/Ml Vial) 5,000 unit SUBCUT Q8H [facility] Last Admin: 01/03/23 09:20 Dose: 5,000 unit Documented By: FAITH Insulin Glargine (Insulin Glargine,Hum.Rec.Anlog 100 Unit/Ml 10 Ml Vial) 50 unit SUBCUT DAILY [facility] Last Admin: 01/03/23 09:18 Dose: 50 unit Documented By: FAITH Insulin Human Lispro (Insulin Lispro 100 Unit/Ml 3 Ml Vial) [facility]; Protocol Last Admin: 01/03/23 09:05 Dose: Not Given Documented By: FAITH Non-Admin Reason: No Insulin Coverage Labs 01/03/23 06:51 01/03/23 06:51 Labs: Laboratory Results - last 24 hr 01/02/23 01/02/23 01/02/23 11:09 14:36 17:11 MCV MCH MCHC RDW Plt Count MPV Immature Gran % (Auto) Neut % (Auto) Lymph % (Auto) [place] % (Auto) Eos % (Auto) Baso % (Auto) Lymph # (Auto) [place] # (Auto) Eos # (Auto) Baso # (Auto) Abs Immat Gran (auto) Absolute Neuts (auto) Absolute Nucleated RBC Nucleated RBC % (auto) O2 Saturation 93.0 ABG pH at Pt Temp 7.41 ABG pCO2 at Pt Temp 69 H* ABG pO2 at Pt Temp 70 L ABG HCO3 44 H ABG Base Excess (Actual) Not Reportable VBG pH VBG pCO2 VBG pO2 VBG HCO3 VBG O2 Saturation VBG Base Excess Anion Gap Estim Creat Clear Calc Estimated GFR POC Glucose 157 H 209 H Random Glucose Calcium Phosphorus Magnesium 01/02/23 01/03/23 01/03/23 21:09 06:51 06:51 MCV 90.9 MCH 28.9 MCHC 31.8 RDW 15.0 Plt Count 166 MPV 10.7 Immature Gran % (Auto) 0.4 Neut % (Auto) 60.3 Lymph % (Auto) 29.7 [place] % (Auto) 7.8 Eos % (Auto) 1.6 Baso % (Auto) 0.2 Lymph # (Auto) 2.7 [place] # (Auto) 0.7 Eos # (Auto) 0.1 Baso # (Auto) 0.0 Abs Immat Gran (auto) 0.04 H Absolute Neuts (auto) 5.4 Absolute Nucleated RBC 0.000 Nucleated RBC % (auto) 0.0 O2 Saturation ABG pH at Pt Temp ABG pCO2 at Pt Temp ABG pO2 at Pt Temp ABG HCO3 ABG Base Excess (Actual) VBG pH VBG pCO2 VBG pO2 VBG HCO3 VBG O2 Saturation VBG Base Excess Anion Gap 15 Estim Creat Clear Calc 117.2 Estimated GFR > 60 POC Glucose 226 H Random Glucose 145 H Calcium 8.4 Phosphorus 1.9 L Magnesium 1.9 01/03/23 01/03/23 06:56 06:59 MCV MCH MCHC RDW Plt Count MPV Immature Gran % (Auto) Neut % (Auto) Lymph % (Auto) [place] % (Auto) Eos % (Auto) Baso % (Auto) Lymph # (Auto) [place] # (Auto) Eos # (Auto) Baso # (Auto) Abs Immat Gran (auto) Absolute Neuts (auto) Absolute Nucleated RBC Nucleated RBC % (auto) O2 Saturation ABG pH at Pt Temp ABG pCO2 at Pt Temp ABG pO2 at Pt Temp ABG HCO3 ABG Base Excess (Actual) VBG pH 7.47 H VBG pCO2 45 VBG pO2 78 VBG HCO3 33 H VBG O2 Saturation 98.0 VBG Base Excess 9.1 Anion Gap Estim Creat Clear Calc Estimated GFR POC Glucose 140 H Random Glucose Calcium Phosphorus Magnesium Assessment and Plan (1) Morbid obesity: Status: Acute (2) CHF (congestive heart failure): Status: Acute (3) Hypoventilation associated with obesity syndrome: Status: Acute Plan 62-year-old lady with underlying morbid obesity, obesity hypOventilation with CO2 retention, COPD on home O2 at 3-4 L lung diabetes mellitus, diastolic heart failure, third-degree AV block status post dual-chamber pacemaker, multiple admissions for acute on chronic respiratory failure admitted on 01/01/2023 with confusion secondary to CO2 narcosis from acute on chronic hypercapnic respiratory failure on the background of worsening congestive heart failure initially requiring BiPAP support. Patient has admitted to intensive care unit, started on diuresis and titrated off BiPAP support, transfer out of ICU , no on oxymizer 1/Acute on chronic hypoxic respiratory failure d/t hypoventilation, copd, chf required bipap in icu but is doing better BiPAP PRN during the day, keep O2 sat between 88 and no more than 93% 2/Acut diastolic heart failure--on IV Lasix 40 daily, monitor renal function and K, monitor I/O and weight last echo from last year with EF 55 to 60 % 3/ Diabetes--continue lantus, ssi, hold metformin 4/HTN resume Vasotec, norvasc 5/ HLD--statin 6/Morbid obesity--weight loss advised d/t impact on above health issues 7/ Mood disorder, resume meds stable skin breakdown - pt to be turned, offloading air mattress, zinc oxide and foam dressing. improve resp status adn underlying med issues Time Spent With Patient Time: Total time managing care of this patient today ____ minutes. Quality Stroke Does the patient have a stroke diagnosis?: No VTE Prior VTE?: No VTE Risk Level:: Medical - moderate - high VTE Device Contraindication: Treatment Not Indicated VTE Drug Contraindication: N/A - Med Ordered
[2023-01-03 11:25] LABS: Glucose, Whole Blood 239 mg/dL (60-115)
[2023-01-03] MEDS: Insulin Lispro 100 UNIT/ML 3 ML VIAL SUBCUT ×3 (12:22→22:38)
[2023-01-03] MEDS: amLODIPine Besylate 5 MG TABLET PO (12:23)
[2023-01-03] MEDS: Aspirin 81 MG TAB.CHEW PO (12:23)
[2023-01-03] MEDS: buPROPion HCl XL 300 MG TAB.ER.24H PO (12:24)
[2023-01-03] MEDS: buPROPion HCl XL 150 MG TAB.ER.24H PO (12:24)
[2023-01-03] MEDS: Gabapentin 300 MG CAPSULE PO (12:24)
[2023-01-03] MEDS: Enalapril Maleate 10 MG TABLET 20 MG PO (12:24)
[2023-01-03] MEDS: Albuterol/Iprat 2.5/0.5MG 3 ML AMPUL.NEB INHALE ×2 (13:55→19:50)
--- NOTE | 2023-01-03 14:33 | MHC.CLN ---
F/U PT WITH INCREASED NUTRITION RISK R/T PRESSURE INJURY, STAGE II BILATERAL BUTTOCKS. DIET RX: 2200DM-APPROPRIATE ENSURE MAX BID PROVIDES ADDITIONAL 300 KCALS, 60 G PROTEIN TO PROMOTE WOUND HEALING. INTAKE APPEARS GOOD, WITH MOST RECENT MEALS 100%. MONITOR PO INTAKE AND WOUND HEALING.
--- NOTE | 2023-01-03 15:17 | MHC.CM.PN ---
[facility] REVIEWED AND PER MD ROUNDS, PT IS NOT MEDICALLY CLEARED FOR DC BACK TO [facility] (MONITORING RESPIRATORY STATUS) [facility] UPDATED AND C, WILL CONTINUE TO FOLLOW.
[2023-01-03 16:39] LABS: Glucose, Whole Blood 264 mg/dL (60-115)
[2023-01-03] MEDS: Megestrol Acetate 400 MG/10 ML ORAL.SUSP PO ×2 (16:53→22:38)
[2023-01-03 21:15] LABS: Glucose, Whole Blood 279 mg/dL (60-115)
[2023-01-03] MEDS: Atorvastatin Calcium 80 MG TABLET PO (22:38)
[2023-01-03] MEDS: Gabapentin 300 MG CAPSULE 600 MG PO (22:38)
[2023-01-03] MEDS: Melatonin 3 MG TABLET PO (22:38)
[2023-01-03] MEDS: TiZANidine HCL 4 MG TABLET PO (22:42)
[2023-01-04] VITALS (13 sets, daily range): BP systolic 108–166; BP diastolic 58–91; PULSE 60–82; RESP 18–26; TEMP 36.1–37; O2SAT 88–95; BMI 50.6
[2023-01-04] MEDS: Heparin Sodium,Porcine 5,000 UNIT/ML VIAL 5000 UNIT SUBCUT ×3 (02:22→18:18)
[2023-01-04 07:45] LABS: Glucose, Whole Blood 191 mg/dL (60-115)
[2023-01-04] MEDS: Albuterol/Iprat 2.5/0.5MG 3 ML AMPUL.NEB INHALE ×3 (08:15→19:50)
[2023-01-04] MEDS: Megestrol Acetate 400 MG/10 ML ORAL.SUSP PO ×3 (08:39→23:26)
[2023-01-04] MEDS: buPROPion HCl XL 300 MG TAB.ER.24H PO (08:39)
[2023-01-04] MEDS: Insulin Glargine,Hum.rec.anlog 100 UNIT/ML 10 ML VIAL 50 UNIT SUBCUT (08:39)
[2023-01-04] MEDS: Furosemide 40 MG TABLET PO (08:39)
[2023-01-04] MEDS: Potassium Chloride ER 10 MEQ TABLET.ER PO (08:39)
[2023-01-04] MEDS: Aspirin 81 MG TAB.CHEW PO (08:39)
[2023-01-04] MEDS: Insulin Lispro 100 UNIT/ML 3 ML VIAL SUBCUT ×4 (08:39→23:26)
[2023-01-04] MEDS: amLODIPine Besylate 5 MG TABLET PO (08:39)
[2023-01-04] MEDS: Enalapril Maleate 10 MG TABLET 20 MG PO (08:39)
[2023-01-04] MEDS: Sertraline HCL 100 MG TABLET 200 MG PO (08:39)
[2023-01-04] MEDS: Ferrous Sulfate 324 MG TABLET.DR PO (08:40)
[2023-01-04] MEDS: buPROPion HCl XL 150 MG TAB.ER.24H PO (08:40)
[2023-01-04] MEDS: Gabapentin 300 MG CAPSULE 600 MG PO ×2 (08:40→23:25)
[2023-01-04] MEDS: acetaZOLAMIDE sodium 500 MG VIAL IVPUSH ×2 (08:43→23:26)
--- NOTE | 2023-01-04 09:24 | HO.PM.IMPN ---
Subjective Subjective Date of Service: 01/04/23 Interval History: 62-year-old lady with underlying morbid obesity, obesity hypOventilation with CO2 retention, COPD on home O2 at 3-4 L lung diabetes mellitus, diastolic heart failure, third-degree AV block status post dual-chamber pacemaker, multiple admissions for acute on chronic respiratory failure admitted on 01/01/2023 with confusion secondary to CO2 narcosis from acute on chronic hypercapnic respiratory failure on the background of worsening congestive heart failure initially requiring BiPAP support. Patient was admitted to intensive care unit, started on diuresis and titrated off BiPAP support, transfer out of ICU , and overall is doing better Physical Exam Vital Signs: Vital Signs: Last Vital Signs Temp 97.2 F 01/04/23 07:42 Pulse 62 01/04/23 07:42 Resp 26 H 01/04/23 08:17 BP 166/91 H 01/04/23 07:42 Pulse Ox 90 L 01/04/23 07:42 O2 Del Method BiPAP 01/04/23 07:42 O2 Flow Rate 24 01/04/23 07:42 FiO2 30 01/02/23 08:00 Oxygen Flow Rate 3 01/01/23 13:25 BMI result Body Mass Index 50.6 Const: Other: General: AO X 3, no acute distress Resp: CTA bilateral CVS: S1,S2,RRR GI: +BS, NT, no distention Skin: No rash Neuro: motor grossly intact Psych: appropriate affect Objective Data Active Medications Acetaminophen (Acetaminophen 325 Mg Tablet) 650 mg PO Q4H PRN PRN Reason: Fever Or Pain Acetazolamide (Acetazolamide Sodium 500 Mg Vial) 500 mg IVPUSH BID [facility] Last Admin: 01/04/23 08:43 Dose: 500 mg Documented By: AMANDA Albuterol/Ipratropium (Albuterol/Iprat 2.5/0.5mg 3 Ml Ampul.Neb) 3 ml INHALE RTID [facility] Last Admin: 01/04/23 08:15 Dose: 3 ml Documented By: DESHAWN Amlodipine Besylate (Amlodipine Besylate 5 Mg Tablet) 5 mg PO DAILY [facility]; Protocol Last Admin: 01/04/23 08:39 Dose: 5 mg Documented By: AMANDA Aspirin (Aspirin 81 Mg Tab.Chew) 81 mg PO DAILY [facility] Last Admin: 01/04/23 08:39 Dose: 81 mg Documented By: AMANDA Atorvastatin Calcium (Atorvastatin Calcium 80 Mg Tablet) 80 mg PO BEDTIME [facility] Last Admin: 01/03/23 22:38 Dose: 80 mg Documented By: [facility] Bisacodyl (Bisacodyl 10 Mg Supp.Rect) 10 mg NM DAILY PRN PRN Reason: Constipation Bupropion HCl (Bupropion Hcl Xl 150 Mg Tab.Er.24h) 150 mg PO DAILY [facility] Last Admin: 01/04/23 08:40 Dose: 150 mg Documented By: AMANDA Bupropion HCl (Bupropion Hcl Xl 300 Mg Tab.Er.24h) 300 mg PO DAILY [facility] Last Admin: 01/04/23 08:39 Dose: 300 mg Documented By: AMANDA Enalapril Maleate (Enalapril Maleate 10 Mg Tablet) 20 mg PO DAILY [facility]; Protocol Last Admin: 01/04/23 08:39 Dose: 20 mg Documented By: AMANDA Ferrous Sulfate (Ferrous Sulfate 324 Mg Tablet.Dr) 324 mg PO DAILY [facility] Last Admin: 01/04/23 08:40 Dose: 324 mg Documented By: AMANDA Fluticasone/Vilanterol (Fluticasone/Vilanterol 100/25 Blst.W.Dev) 1 puff INHALE DAILY [facility] Last Admin: 01/04/23 08:22 Dose: Not Given Documented By: DESHAWN Non-Admin Reason: pt on bipap sleeping Furosemide (Furosemide 40 Mg/4 Ml Vial) 40 mg IVPUSH DAILY [facility]; Protocol Last Admin: 01/04/23 08:40 Dose: Not Given Documented By: AMANDA Non-Admin Reason: Physician Approved Furosemide (Furosemide 40 Mg Tablet) 40 mg PO DAILY [facility]; Protocol Last Admin: 01/04/23 08:39 Dose: 40 mg Documented By: AMANDA Gabapentin (Gabapentin 300 Mg Capsule) 300 mg PO DAILY@1200 [facility] Last Admin: 01/03/23 12:24 Dose: 300 mg Documented By: FAITH Gabapentin (Gabapentin 300 Mg Capsule) 600 mg PO BID [facility] Last Admin: 01/04/23 08:40 Dose: 600 mg Documented By: AMANDA Heparin Sodium (Porcine) (Heparin Sodium,Porcine 5,000 Unit/Ml Vial) 5,000 unit SUBCUT Q8H [facility] Last Admin: 01/04/23 02:22 Dose: 5,000 unit Documented By: JARED Insulin Glargine (Insulin Glargine,Hum.Rec.Anlog 100 Unit/Ml 10 Ml Vial) 50 unit SUBCUT DAILY [facility] Last Admin: 01/04/23 08:39 Dose: 50 unit Documented By: AMANDA Insulin Human Lispro (Insulin Lispro 100 Unit/Ml 3 Ml Vial) 0 unit SUBCUT QIDACHS [facility]; Protocol Last Admin: 01/04/23 08:39 Dose: 2 unit Documented By: AMANDA Magnesium Hydroxide (Milk Of Magnesia 30 Ml Oral.Susp) 30 ml PO DAILY PRN PRN Reason: Constipation Megestrol Acetate (Megestrol Acetate 400 Mg/10 Ml Oral.Susp) 400 mg PO TID [facility] Last Admin: 01/04/23 08:39 Dose: 400 mg Documented By: AMANDA Melatonin (Melatonin 3 Mg Tablet) 3 mg PO BEDTIME [facility] Last Admin: 01/03/23 22:38 Dose: 3 mg Documented By: [facility] Polyethylene Glycol (Polyethylene Glycol 3350 17 Gm Powd.Pack) 17 gm PO DAILY PRN PRN Reason: Constipation Potassium Chloride (Potassium Chloride Er 10 Meq Tablet.Er) 10 meq PO DAILY [facility] Last Admin: 01/04/23 08:39 Dose: 10 meq Documented By: AMANDA Senna (Sennosides 8.6 Mg Tablet) 17.2 mg PO DAILY PRN PRN Reason: Constipation Sertraline HCl (Sertraline Hcl 100 Mg Tablet) 200 mg PO DAILY [facility] Last Admin: 01/04/23 08:39 Dose: 200 mg Documented By: AMANDA Sodium Biphosphate/Sodium Phosphate (Sodium Phosphate,[place]-Dibasic 133 Ml Enema) 133 ml NM DAILY PRN PRN Reason: Constipation Tizanidine HCl (Tizanidine Hcl 4 Mg Tablet) 4 mg PO BEDTIME PRN PRN Reason: Muscle Spasm Last Admin: 01/03/23 22:42 Dose: 4 mg Documented By: CHI Labs 01/03/23 06:51 01/03/23 06:51 Labs: Laboratory Results - last 24 hr 01/03/23 01/03/23 01/03/23 11:22 16:35 21:10 POC Glucose 239 H 264 H 279 H 01/04/23 07:40 POC Glucose 191 H Assessment and Plan (1) Morbid obesity: Status: Acute (2) CHF (congestive heart failure): Status: Acute (3) Hypoventilation associated with obesity syndrome: Status: Acute Plan 62-year-old lady with underlying morbid obesity, obesity hypOventilation with CO2 retention, COPD on home O2 at 3-4 L lung diabetes mellitus, diastolic heart failure, third-degree AV block status post dual-chamber pacemaker, multiple admissions for acute on chronic respiratory failure admitted on 01/01/2023 with confusion secondary to CO2 narcosis from acute on chronic hypercapnic respiratory failure on the background of worsening congestive heart failure initially requiring BiPAP support. Patient has admitted to intensive care unit, started on diuresis and titrated off BiPAP support, transfer out of ICU , no on oxymizer 1/Acute on chronic hypoxic respiratory failure d/t hypoventilation, copd, chf required bipap in icu but is doing better BiPAP PRN during the day, keep O2 sat between 88 and no more than 93%, take off bipap this moring and see how she does 2/Acut diastolic heart failure--on IV Lasix 40 daily, monitor renal function and K, monitor I/O and weight last echo from last year with EF 55 to 60 % 3/ Diabetes--continue lantus, ssi, hold metformin 4/HTN resume Vasotec, norvasc 5/ HLD--statin 6/Morbid obesity--weight loss advised d/t impact on above health issues 7/ Mood disorder, resume meds stable skin breakdown - pt to be turned, offloading air mattress, zinc oxide and foam dressing. improve resp status adn underlying med issues Time Spent With Patient Time: Total time managing care of this patient today ____ minutes. Quality Stroke Does the patient have a stroke diagnosis?: No VTE Prior VTE?: No VTE Risk Level:: Medical - moderate - high VTE Device Contraindication: Treatment Not Indicated VTE Drug Contraindication: N/A - Med Ordered
[2023-01-04 11:07] LABS: Glucose, Whole Blood 267 mg/dL (60-115)
[2023-01-04] MEDS: Gabapentin 300 MG CAPSULE PO (11:52)
[2023-01-04 16:09] LABS: Glucose, Whole Blood 501 mg/dL (60-115)
[2023-01-04] MEDS: Insulin Lispro 100 UNIT/ML 3 ML VIAL 7 UNIT SUBCUT (16:30)
[2023-01-04 16:34] LABS: Glucose, Whole Blood 461 mg/dL (60-115)
[2023-01-04 19:49] LABS: Glucose, Whole Blood 393 mg/dL (60-115)
--- NOTE | 2023-01-04 23:00 | PC.NURSE ---
Pt 393, notified, no new orders. Pt given 10 units per protocol.
[2023-01-04] MEDS: Melatonin 3 MG TABLET PO (23:25)
[2023-01-04] MEDS: Atorvastatin Calcium 80 MG TABLET PO (23:25)
[2023-01-04] MEDS: TiZANidine HCL 4 MG TABLET PO (23:25)
[2023-01-05] VITALS (12 sets, daily range): BP systolic 130–146; BP diastolic 63–74; PULSE 62–81; RESP 19–23; TEMP 36.3–36.8; O2SAT 90–98; BMI 51.0
[2023-01-05] MEDS: Heparin Sodium,Porcine 5,000 UNIT/ML VIAL 5000 UNIT SUBCUT ×3 (02:34→17:36)
[2023-01-05 07:29] LABS: Glucose, Whole Blood 307 mg/dL (60-115)
[2023-01-05] MEDS: Albuterol/Iprat 2.5/0.5MG 3 ML AMPUL.NEB INHALE ×3 (07:56→19:05)
[2023-01-05] MEDS: Potassium Chloride ER 10 MEQ TABLET.ER PO (08:30)
[2023-01-05] MEDS: Insulin Lispro 100 UNIT/ML 3 ML VIAL SUBCUT ×4 (08:30→20:16)
[2023-01-05] MEDS: Aspirin 81 MG TAB.CHEW PO (08:30)
[2023-01-05] MEDS: acetaZOLAMIDE sodium 500 MG VIAL IVPUSH ×2 (08:30→20:17)
[2023-01-05] MEDS: Insulin Glargine,Hum.rec.anlog 100 UNIT/ML 10 ML VIAL 50 UNIT SUBCUT (08:30)
[2023-01-05] MEDS: Gabapentin 300 MG CAPSULE 600 MG PO (08:31)
[2023-01-05] MEDS: amLODIPine Besylate 5 MG TABLET PO (08:31)
[2023-01-05] MEDS: buPROPion HCl XL 150 MG TAB.ER.24H PO (08:31)
[2023-01-05] MEDS: buPROPion HCl XL 300 MG TAB.ER.24H PO (08:31)
[2023-01-05] MEDS: Furosemide 40 MG TABLET PO (08:31)
[2023-01-05] MEDS: Megestrol Acetate 400 MG/10 ML ORAL.SUSP PO ×2 (08:31→16:16)
[2023-01-05] MEDS: Sertraline HCL 100 MG TABLET 200 MG PO (08:31)
[2023-01-05] MEDS: Enalapril Maleate 10 MG TABLET 20 MG PO (08:31)
[2023-01-05] MEDS: Ferrous Sulfate 324 MG TABLET.DR PO (08:31)
--- NOTE | 2023-01-05 11:13 | HO.PM.IMPN ---
Subjective Subjective Date of Service: 01/05/23 Interval History: Seen and evaluated this morning Feels much better with overall improvement in respiratory status No fever or chills Tolerating BiPAP No other overnight events Review of Systems Review of Systems: Yes all other systems are reviewed and are negative Physical Exam Vital Signs: Vital Signs: Last Vital Signs Temp 98.2 F 01/05/23 07:23 Pulse 62 01/05/23 07:56 Resp 22 H 01/05/23 07:59 BP 141/71 H 01/05/23 07:23 Pulse Ox 95 01/05/23 07:23 O2 Del Method BiPAP 01/05/23 07:23 O2 Flow Rate 1 01/04/23 19:14 FiO2 30 01/02/23 08:00 Oxygen Flow Rate 3 01/01/23 13:25 BMI result Body Mass Index 51.0 Const: Other: General: AO X 3, no acute distress Resp: CTA bilateral, on 2L O2, scattered expiratory wheezes CVS: S1,S2,RRR GI: +BS, NT, no distention Skin: No rash Neuro: motor grossly intact Psych: appropriate affect Objective Data Active Medications Acetaminophen (Acetaminophen 325 Mg Tablet) 650 mg PO Q4H PRN PRN Reason: Fever Or Pain Acetazolamide (Acetazolamide Sodium 500 Mg Vial) 500 mg IVPUSH BID [facility] Last Admin: 01/05/23 08:30 Dose: 500 mg Documented By: AMANDA Albuterol/Ipratropium (Albuterol/Iprat 2.5/0.5mg 3 Ml Ampul.Neb) 3 ml INHALE RTID [facility] Last Admin: 01/05/23 07:56 Dose: 3 ml Documented By: DESHAWN Amlodipine Besylate (Amlodipine Besylate 5 Mg Tablet) 5 mg PO DAILY [facility]; Protocol Last Admin: 01/05/23 08:31 Dose: 5 mg Documented By: AMANDA Aspirin (Aspirin 81 Mg Tab.Chew) 81 mg PO DAILY [facility] Last Admin: 01/05/23 08:30 Dose: 81 mg Documented By: AMANDA Atorvastatin Calcium (Atorvastatin Calcium 80 Mg Tablet) 80 mg PO BEDTIME [facility] Last Admin: 01/04/23 23:25 Dose: 80 mg Documented By: JARED Bisacodyl (Bisacodyl 10 Mg Supp.Rect) 10 mg [place] DAILY PRN PRN Reason: Constipation Bupropion HCl (Bupropion Hcl Xl 150 Mg Tab.Er.24h) 150 mg PO DAILY [facility] Last Admin: 01/05/23 08:31 Dose: 150 mg Documented By: AMANDA Bupropion HCl (Bupropion Hcl Xl 300 Mg Tab.Er.24h) 300 mg PO DAILY [facility] Last Admin: 01/05/23 08:31 Dose: 300 mg Documented By: AMANDA Enalapril Maleate (Enalapril Maleate 10 Mg Tablet) 20 mg PO DAILY [facility]; Protocol Last Admin: 01/05/23 08:31 Dose: 20 mg Documented By: AMANDA Ferrous Sulfate (Ferrous Sulfate 324 Mg Tablet.Dr) 324 mg PO DAILY [facility] Last Admin: 01/05/23 08:31 Dose: 324 mg Documented By: AMANDA Fluticasone/Vilanterol (Fluticasone/Vilanterol 100/25 Blst.W.Dev) 1 puff INHALE DAILY [facility] Last Admin: 01/05/23 08:01 Dose: Not Given Documented By: DESHAWN Non-Admin Reason: pt sleeping on bipap Furosemide (Furosemide 40 Mg/4 Ml Vial) 40 mg IVPUSH DAILY [facility]; Protocol Last Admin: 01/05/23 08:31 Dose: Not Given Documented By: AMANDA Non-Admin Reason: Physician Approved Furosemide (Furosemide 40 Mg Tablet) 40 mg PO DAILY [facility]; Protocol Last Admin: 01/05/23 08:31 Dose: 40 mg Documented By: AMANDA Gabapentin (Gabapentin 300 Mg Capsule) 300 mg PO DAILY@1200 [facility] Last Admin: 01/04/23 11:52 Dose: 300 mg Documented By: AMANDA Gabapentin (Gabapentin 300 Mg Capsule) 600 mg PO BID [facility] Last Admin: 01/05/23 08:31 Dose: 600 mg Documented By: AMANDA Heparin Sodium (Porcine) (Heparin Sodium,Porcine 5,000 Unit/Ml Vial) 5,000 unit SUBCUT Q8H [facility] Last Admin: 01/05/23 02:34 Dose: 5,000 unit Documented By: JARED Insulin Glargine (Insulin Glargine,Hum.Rec.Anlog 100 Unit/Ml 10 Ml Vial) 50 unit SUBCUT DAILY [facility] Last Admin: 01/05/23 08:30 Dose: 50 unit Documented By: AMANDA Insulin Human Lispro (Insulin Lispro 100 Unit/Ml 3 Ml Vial) 0 unit SUBCUT QIDACHS [facility]; Protocol Last Admin: 01/05/23 08:30 Dose: 8 unit Documented By: AMANDA Magnesium Hydroxide (Milk Of Magnesia 30 Ml Oral.Susp) 30 ml PO DAILY PRN PRN Reason: Constipation Megestrol Acetate (Megestrol Acetate 400 Mg/10 Ml Oral.Susp) 400 mg PO TID [facility] Last Admin: 01/05/23 08:31 Dose: 400 mg Documented By: AMANDA Melatonin (Melatonin 3 Mg Tablet) 3 mg PO BEDTIME [facility] Last Admin: 01/04/23 23:25 Dose: 3 mg Documented By: JARED Polyethylene Glycol (Polyethylene Glycol 3350 17 Gm Powd.Pack) 17 gm PO DAILY PRN PRN Reason: Constipation Potassium Chloride (Potassium Chloride Er 10 Meq Tablet.Er) 10 meq PO DAILY [facility] Last Admin: 01/05/23 08:30 Dose: 10 meq Documented By: AMANDA Senna (Sennosides 8.6 Mg Tablet) 17.2 mg PO DAILY PRN PRN Reason: Constipation Sertraline HCl (Sertraline Hcl 100 Mg Tablet) 200 mg PO DAILY [facility] Last Admin: 01/05/23 08:31 Dose: 200 mg Documented By: AMANAD Sodium Biphosphate/Sodium Phosphate (Sodium Phosphate,[place]-Dibasic 133 Ml Enema) 133 ml [place] DAILY PRN PRN Reason: Constipation Tizanidine HCl (Tizanidine Hcl 4 Mg Tablet) 4 mg PO BEDTIME PRN PRN Reason: Muscle Spasm Last Admin: 01/04/23 23:25 Dose: 4 mg Documented By: JARED Labs 01/03/23 06:51 01/03/23 06:51 Labs: Laboratory Results - last 24 hr 01/04/23 01/04/23 01/04/23 16:05 16:23 19:46 POC Glucose 501 H* 461 H* 393 H* 01/05/23 07:25 POC Glucose 307 H Assessment and Plan (1) Morbid obesity: Status: Acute (2) Hypoventilation associated with obesity syndrome: Status: Acute (3) CHF (congestive heart failure): Status: Acute (4) Acute and chronic respiratory failure with hypercapnia: Status: Acute Plan 62-year-old lady with underlying morbid obesity, obesity hypOventilation with CO2 retention, COPD on home O2 at 3-4 L lung diabetes mellitus, diastolic heart failure, third-degree AV block status post dual-chamber pacemaker, multiple admissions for acute on chronic respiratory failure admitted on 01/01/2023 with confusion secondary to CO2 narcosis from acute on chronic hypercapnic respiratory failure on the background of worsening congestive heart failure initially requiring BiPAP support. Patient has admitted to intensive care unit, started on diuresis and titrated off BiPAP support, transfer out of ICU , no on oxymizer 1/Acute on chronic hypoxic respiratory failure d/t hypoventilation, copd, chf required bipap in icu but is doing better BiPAP PRN during the day, and bedtime keep O2 sat between 88 and no more than 93% Plan to dC to facility tomorrow if stable overnight 2/[place] diastolic heart failure on IV Lasix 40 daily, monitor renal function and K, monitor I/O and weight last echo from last year with EF 55 to 60 % 3/ Diabetes continue lantus, ssi, hold metformin 4/HTN resume Vasotec, norvasc 5/ HLD statin 6/Morbid obesity weight loss advised d/t impact on above health issues 7/ Mood disorder resume meds stable skin breakdown turned, offloading air mattress, zinc oxide and foam dressing. Pending overnight evaluation for safety of discharge, monitor respiratory status Time Spent With Patient Time: Total time managing care of this patient today ____ minutes. Quality Stroke Does the patient have a stroke diagnosis?: No VTE Prior VTE?: No VTE Risk Level:: Medical - moderate - high VTE Device Contraindication: Treatment Not Indicated VTE Drug Contraindication: N/A - Med Ordered
[2023-01-05 11:35] LABS: Glucose, Whole Blood 321 mg/dL (60-115)
[2023-01-05] MEDS: Gabapentin 300 MG CAPSULE PO (12:05)
[2023-01-05 16:08] LABS: Glucose, Whole Blood 333 mg/dL (60-115)
[2023-01-05] MEDS: Acetaminophen 325 MG TABLET 650 MG PO (17:40)
[2023-01-05 19:22] LABS: Glucose, Whole Blood 321 mg/dL (60-115)
[2023-01-05] MEDS: ondansetron HCL 4 MG/2 ML VIAL IVPUSH (20:23)
[2023-01-06] VITALS (9 sets, daily range): BP systolic 128–143; BP diastolic 60–69; PULSE 69–89; RESP 15–24; TEMP 36.1–37.1; O2SAT 89–96; BMI 50.8
[2023-01-06] MEDS: Heparin Sodium,Porcine 5,000 UNIT/ML VIAL 5000 UNIT SUBCUT ×3 (01:46→17:07)
[2023-01-06] MEDS: Albuterol/Iprat 2.5/0.5MG 3 ML AMPUL.NEB INHALE ×2 (07:37→15:14)
[2023-01-06] MEDS: Fluticasone/Vilanterol 100/25 BLST.W.DEV 1 PUFF INHALE (07:38)
[2023-01-06 07:57] LABS: VBG Base Excess 0.9 mmol/L; VBG HCO3 27 mmol/L (22-26); VBG pCO2 52 mmHg; VBG pH 7.33 (7.32-7.43); VBG pO2 84 mmHg
[2023-01-06 07:58] LABS: Venous Blood Gas Refer to POC result
[2023-01-06 08:00] LABS: Glucose, Whole Blood 228 mg/dL (60-115)
[2023-01-06 08:09] LABS: Anion Gap 13 (12-20); Blood Urea Nitrogen 26 mg/dL (9-16); Calcium 8.7 mg/dL (8.4-10.2); Carbon Dioxide 23 mmol/L (22-29); Chloride 108 mmol/L (96-108); Creatinine Clr Calc Pharmacy 107.4; Estimated Glomerular Filt Rate > 60; Glucose Random 220 mg/dL (60-115); Potassium 4.2 mmol/L (3.3-5.1); Sodium 140 mmol/L (135-145)
[2023-01-06] MEDS: acetaZOLAMIDE sodium 500 MG VIAL IVPUSH (08:55)
[2023-01-06] MEDS: Insulin Lispro 100 UNIT/ML 3 ML VIAL SUBCUT ×3 (08:55→17:07)
[2023-01-06] MEDS: Insulin Glargine,Hum.rec.anlog 100 UNIT/ML 10 ML VIAL 60 UNIT SUBCUT (08:55)
[2023-01-06] MEDS: Aspirin 81 MG TAB.CHEW PO (08:56)
[2023-01-06] MEDS: Megestrol Acetate 400 MG/10 ML ORAL.SUSP PO ×2 (08:56→17:07)
[2023-01-06] MEDS: Potassium Chloride ER 10 MEQ TABLET.ER PO (08:56)
[2023-01-06] MEDS: Ferrous Sulfate 324 MG TABLET.DR PO (08:57)
[2023-01-06] MEDS: buPROPion HCl XL 300 MG TAB.ER.24H PO (08:57)
[2023-01-06] MEDS: Enalapril Maleate 10 MG TABLET 20 MG PO (08:57)
[2023-01-06] MEDS: Sertraline HCL 100 MG TABLET 200 MG PO (08:57)
[2023-01-06] MEDS: amLODIPine Besylate 5 MG TABLET PO (08:58)
[2023-01-06] MEDS: buPROPion HCl XL 150 MG TAB.ER.24H PO (08:58)
[2023-01-06] MEDS: Furosemide 40 MG TABLET PO (08:58)
[2023-01-06] MEDS: Gabapentin 300 MG CAPSULE 600 MG PO (08:58)
[2023-01-06 11:27] LABS: Glucose, Whole Blood 314 mg/dL (60-115)
--- NOTE | 2023-01-06 12:06 | P.PNIM_ITS ---
Subjective Subjective Date of Service: 01/06/23 Interval History: Seen and evaluated this morning Feels much better with overall improvement in respiratory status No fever or chills Tolerating BiPAP well On 2-3L No other overnight events Review of Systems Review of Systems: Yes all other systems are reviewed and are negative Physical Exam Vital Signs: Vital Signs: Last Vital Signs Temp 98.3 F 01/06/23 11:11 Pulse 83 01/06/23 11:11 Resp 20 01/06/23 11:11 BP 129/60 01/06/23 11:11 Pulse Ox 90 L 01/06/23 11:11 O2 Del Method Nasal Cannula 01/06/23 11:11 O2 Flow Rate 3 01/06/23 11:11 FiO2 30 01/02/23 08:00 Oxygen Flow Rate 3 01/01/23 13:25 BMI result Body Mass Index 50.8 Const: Other: General: AO X 3, no acute distress Resp: CTA bilateral, on 2-3L O2, scattered expiratory wheezes CVS: S1,S2,RRR GI: +BS, NT, no distention Skin: No rash Neuro: motor grossly intact Psych: appropriate affect Objective Data Active Medications Acetaminophen (Acetaminophen 325 Mg Tablet) 650 mg PO Q4H PRN PRN Reason: Fever Or Pain Last Admin: 01/05/23 17:40 Dose: 650 mg Documented By: AMANDA Acetazolamide (Acetazolamide Sodium 500 Mg Vial) 500 mg IVPUSH BID [facility] Last Admin: 01/06/23 08:55 Dose: 500 mg Documented By: IVY Albuterol/Ipratropium (Albuterol/Iprat 2.5/0.5mg 3 Ml Ampul.Neb) 3 ml INHALE RTID [facility] Last Admin: 01/06/23 07:37 Dose: 3 ml Documented By: IMELDA Amlodipine Besylate (Amlodipine Besylate 5 Mg Tablet) 5 mg PO DAILY [facility]; Protocol Last Admin: 01/06/23 08:58 Dose: 5 mg Documented By: IVY Aspirin (Aspirin 81 Mg Tab.Chew) 81 mg PO DAILY [facility] Last Admin: 01/06/23 08:56 Dose: 81 mg Documented By: IVY Atorvastatin Calcium (Atorvastatin Calcium 80 Mg Tablet) 80 mg PO BEDTIME [facility] Last Admin: 01/05/23 20:27 Dose: Not Given Documented By: JAYNE Non-Admin Reason: Patient Refused Bisacodyl (Bisacodyl 10 Mg Supp.Rect) 10 mg [place] DAILY PRN PRN Reason: Constipation Bupropion HCl (Bupropion Hcl Xl 150 Mg Tab.Er.24h) 150 mg PO DAILY [facility] Last Admin: 01/06/23 08:58 Dose: 150 mg Documented By: IVY Bupropion HCl (Bupropion Hcl Xl 300 Mg Tab.Er.24h) 300 mg PO DAILY [facility] Last Admin: 01/06/23 08:57 Dose: 300 mg Documented By: IVY Enalapril Maleate (Enalapril Maleate 10 Mg Tablet) 20 mg PO DAILY [facility]; Protocol Last Admin: 01/06/23 08:57 Dose: 20 mg Documented By: IVY Ferrous Sulfate (Ferrous Sulfate 324 Mg Tablet.Dr) 324 mg PO DAILY [facility] Last Admin: 01/06/23 08:57 Dose: 324 mg Documented By: VIY Fluticasone/Vilanterol (Fluticasone/Vilanterol 100/25 Blst.W.Dev) 1 puff INHALE DAILY [facility] Last Admin: 01/06/23 07:38 Dose: 1 puff Documented By: IMELDA Furosemide (Furosemide 40 Mg Tablet) 40 mg PO DAILY [facility]; Protocol Last Admin: 01/06/23 08:58 Dose: 40 mg Documented By: IVY Gabapentin (Gabapentin 300 Mg Capsule) 300 mg PO DAILY@1200 [facility] Last Admin: 01/05/23 12:05 Dose: 300 mg Documented By: AMANDA Gabapentin (Gabapentin 300 Mg Capsule) 600 mg PO BID [facility] Last Admin: 01/06/23 08:58 Dose: 600 mg Documented By: IVY Heparin Sodium (Porcine) (Heparin Sodium,Porcine 5,000 Unit/Ml Vial) 5,000 unit SUBCUT Q8H [facility] Last Admin: 01/06/23 01:46 Dose: 5,000 unit Documented By: JAYNE Insulin Glargine (Insulin Glargine,Hum.Rec.Anlog 100 Unit/Ml 10 Ml Vial) 60 unit SUBCUT DAILY [facility] Last Admin: 01/06/23 08:55 Dose: 60 unit Documented By: IVY Insulin Human Lispro (Insulin Lispro 100 Unit/Ml 3 Ml Vial) 0 unit SUBCUT QIDACHS [facility]; Protocol Last Admin: 01/06/23 08:55 Dose: 4 unit Documented By: IVY Magnesium Hydroxide (Milk Of Magnesia 30 Ml Oral.Susp) 30 ml PO DAILY PRN PRN Reason: Constipation Megestrol Acetate (Megestrol Acetate 400 Mg/10 Ml Oral.Susp) 400 mg PO TID [facility] Last Admin: 01/06/23 08:56 Dose: 400 mg Documented By: IVY Melatonin (Melatonin 3 Mg Tablet) 3 mg PO BEDTIME [facility] Last Admin: 01/05/23 20:27 Dose: Not Given Documented By: JAYNE Non-Admin Reason: Patient Refused Ondansetron HCl (Ondansetron Hcl 4 Mg/2 Ml Vial) 4 mg IVPUSH Q8H PRN PRN Reason: nausea Last Admin: 01/05/23 20:23 Dose: 4 mg Documented By: LESLYE Polyethylene Glycol (Polyethylene Glycol 3350 17 Gm Powd.Pack) 17 gm PO DAILY PRN PRN Reason: Constipation Potassium Chloride (Potassium Chloride Er 10 Meq Tablet.Er) 10 meq PO DAILY [facility] Last Admin: 01/06/23 08:56 Dose: 10 meq Documented By: IVY Senna (Sennosides 8.6 Mg Tablet) 17.2 mg PO DAILY PRN PRN Reason: Constipation Sertraline HCl (Sertraline Hcl 100 Mg Tablet) 200 mg PO DAILY [facility] Last Admin: 01/06/23 08:57 Dose: 200 mg Documented By: IVY Sodium Biphosphate/Sodium Phosphate (Sodium Phosphate,[place]-Dibasic 133 Ml Enema) 133 ml [place] DAILY PRN PRN Reason: Constipation Tizanidine HCl (Tizanidine Hcl 4 Mg Tablet) 4 mg PO BEDTIME PRN PRN Reason: Muscle Spasm Last Admin: 01/04/23 23:25 Dose: 4 mg Documented By: SCOT-ROMARIOM Labs 01/03/23 06:51 01/06/23 07:35 Labs: Laboratory Results - last 24 hr 01/05/23 01/05/23 01/06/23 16:03 19:18 07:02 VBG pH VBG pCO2 VBG pO2 VBG HCO3 VBG O2 Saturation VBG Base Excess Anion Gap Estim Creat Clear Calc Estimated GFR POC Glucose 333 H 321 H 228 H Random Glucose Calcium 01/06/23 01/06/23 01/06/23 07:35 07:48 11:13 VBG pH 7.33 VBG pCO2 52 VBG pO2 84 VBG HCO3 27 H VBG O2 Saturation 98.0 VBG Base Excess 0.9 Anion Gap 13 Estim Creat Clear Calc 107.4 Estimated GFR > 60 POC Glucose 314 H Random Glucose 220 H Calcium 8.7 Assessment and Plan Plan 62-year-old lady with underlying morbid obesity, obesity hypOventilation with CO2 retention, COPD on home O2 at 3-4 L lung diabetes mellitus, diastolic heart failure, third-degree AV block status post dual-chamber pacemaker, multiple admissions for acute on chronic respiratory failure admitted on 01/01/2023 with confusion secondary to CO2 narcosis from acute on chronic hypercapnic respiratory failure on the background of worsening congestive heart failure initially requiring BiPAP support. Patient has admitted to intensive care unit, started on diuresis and titrated off BiPAP support, transfer out of ICU , no on oxymizer Acute on chronic hypoxic respiratory failure d/t hypoventilation, copd, chf required bipap in icu but is doing better BiPAP PRN during the day, and bedtime keep O2 sat between 88 and no more than 93% Plan to dC to facility tomorrow if stable overnight Acut diastolic heart failure on IV Lasix 40 daily, monitor renal function and K, monitor I/O and weight last echo from last year with EF 55 to 60 % Competency question raised by Diabetes continue lantus, ssi, hold metformin HTN resume Vasotec, norvasc HLD statin Morbid obesity weight loss advised d/t impact on above health issues Mood disorder resume meds stable skin breakdown turned, offloading air mattress, zinc oxide and foam dressing. Pending overnight evaluation for safety of discharge, monitor respiratory status Time Spent With Patient Time: Total time managing care of this patient today ____ minutes. Quality Stroke Does the patient have a stroke diagnosis?: No VTE Prior VTE?: No VTE Risk Level:: Medical - moderate - high VTE Device Contraindication: Treatment Not Indicated VTE Drug Contraindication: N/A - Med Ordered
--- NOTE | 2023-01-06 12:18 | MHC.CLN ---
F/U PT WITH INCREASED NUTRITION RISK R/T PRESSURE INJURY, STAGE II BILATERAL BUTTOCKS INTAKE APPEARS GOOD, WITH MOST RECENT MEALS 100% X7 MEALS DIET RX: 2200DM-APPROPRIATE ENSURE MAX BID PROVIDES ADDITIONAL 300 KCALS, 60G PROTEIN TO PROMOTE WOUND HEALING MONITOR PO INTAKE AND WOUND HEALING
--- NOTE | 2023-01-06 12:26 | PM.DS ---
DS: Providers Provider Date of Service: 01/06/23 Date of admission: 01/01/23 18:18 Primary care physician: Tita Bal MD Consults: 01/01/23 22:19 Consult to Wound Care Routine Consulting Provider: Silvia Garza Reason for consultation: Bilateral Buttock decubitus ulcers Has provider been notified: No 01/06/23 12:05 Consult to Psychiatry Routine Consulting Provider: Psych Covering Reason for consultation: Capacity to accept\refuse treatment, Facility requesnt, doing well DS: Diagnosis Discharge Diagnosis (1) Morbid obesity: Status: Inactive (2) Hypoventilation associated with obesity syndrome: Status: Inactive (3) CHF (congestive heart failure): Status: Inactive (4) Acute and chronic respiratory failure with hypercapnia: Status: Resolved DS: Summary Hospital Course Hospital Course: Admission note HPI from ICU provider Ms. Perez is a 62-year-old female with a PMH significant for COPD on 4-6L home O2, respiratory failure with hypercapnia, obesity hypoventilation syndrome, insulin-dependent diabetes, HTN, HLD, HFpEF,?Heart block AV third degree,?dual chamber pacemaker, decubitus ulcer, morbid obesity, and ESBL UTI who presents to the ED from [facility] with episodes of change in mental status. On arrival she was oriented to self, place and time. She had no complaints.? The patient? is well known to the facility with last visit on 12/27/22-12/30/22 for hypoxic respiratory failure with hypercapnia, hyperkalemia, Ecoli UTI and right buttock decubitus ulcer.? She Was treated with ceftriaxone, and sent home on ceftin. ED course: Patient was placed on BiPAP for 3 hours.? Repeat blood gas showed essentially the same pH and pCO2 in the 80s.? Admitted to the ICU for management of acute and chronic respiratory failure with hypercapnia. Hospital course The patient was admitted on 01/01/2023 with confusion secondary to CO2 narcosis from acute on chronic hypercapnic respiratory failure on the background of worsening congestive heart failure initially requiring BiPAP support.? Patient has admitted to intensive care unit, started on diuresis and titrated off BiPAP support, transfer out of ICU 01/02 on oxygen supplement. responded well for treatment of Acute on chronic? hypoxic respiratory failure as she was followed on the medical floor. BiPAP PRN during the day, and bedtime. O2 sat kept between 88 and no more than 93% on 2-3L. recieved IV lasix with good response as Acetzolamide dose was increased. repeated VBG showing maintained CO2 of 52 around her baseline with no evidence of acidosis or hypercarbia. Discharge plan: Use BiPAP 15/6 with Naps and bedtime Increase Acetzolamide to 500 mg bid Low sodium diet, take Furosemide as prescribed Time Spent with Patient Time attestation: Total time managing care of this patient today ____ minutes. Discharge coordination time: Greater than 30 minutes Quality: Safe Use of Opioids Does Pt have an Active Cancer Diagnosis on the Problem List?: No Quality: Stroke Does the patient have a stroke diagnosis?: No Physical Exam Vital Signs: Vital Signs: Last Vital Signs Temp 98.3 F 01/06/23 11:11 Pulse 83 01/06/23 11:11 Resp 20 01/06/23 11:11 BP 129/60 01/06/23 11:11 Pulse Ox 90 L 01/06/23 11:11 O2 Del Method Nasal Cannula 01/06/23 11:11 O2 Flow Rate 3 01/06/23 11:11 FiO2 30 01/02/23 08:00 Oxygen Flow Rate 3 01/01/23 13:25 BMI result Body Mass Index 50.8 Const: Other: General: AO X 3, no acute distress Resp: CTA bilateral, on 2-3L O2, no expiratory wheezes CVS: S1,S2,RRR GI: +BS, NT, no distention Skin: No rash Neuro: motor grossly intact, Alert, oriented Psych: appropriate affect DS: Data Data Completed and Pending Completed studies during hospitalization [Text1]: Procedures Assistance with Respiratory Ventilation, Less than 24 Consecutive Hours, Continuous Positive Airway Pressure (12/27/22) Insertion of Endotracheal Airway into Trachea, Via Natural or Artificial Opening (11/18/21) Insertion of Infusion Device into Superior Vena Cava, Percutaneous Approach (11/18/21) Introduction of Vasopressor into Peripheral Vein, Percutaneous Approach (11/18/21) Respiratory Ventilation, 24-96 Consecutive Hours (11/18/21) Ultrasonography of Superior Vena Cava, Guidance (11/18/21) Labs on day of discharge: Laboratory Results - last 24 hr 01/05/23 01/05/23 01/06/23 16:03 19:18 07:02 VBG pH VBG pCO2 VBG pO2 VBG HCO3 VBG O2 Saturation VBG Base Excess Sodium Potassium Chloride Carbon Dioxide Anion Gap BUN Creatinine Estim Creat Clear Calc Estimated GFR POC Glucose 333 H 321 H 228 H Random Glucose Calcium 01/06/23 01/06/23 01/06/23 07:35 07:48 11:13 VBG pH 7.33 VBG pCO2 52 VBG pO2 84 VBG HCO3 27 H VBG O2 Saturation 98.0 VBG Base Excess 0.9 Sodium 140 Potassium 4.2 Chloride 108 Carbon Dioxide 23 Anion Gap 13 BUN 26 H Creatinine 0.92 Estim Creat Clear Calc 107.4 Estimated GFR > 60 POC Glucose 314 H Random Glucose 220 H Calcium 8.7 Imaging Chest x-ray: Radiologist's impression: ITS Impressions Chest X-Ray 01/01/23 14:09 IMPRESSION: * Obese body habitus and hypoinflated lungs. * The persistent opacities in each lung likely represent atelectasis. * There is no overt pulmonary edema, pleural effusion or other significant change. Discharge Plan Discharge Anticipated Discharge Date/Time: 01/06/23 12:18 Patient Disposition: er SNF Discharge Diagnosis: Acute on chronic hypoxic hypercapnic respiratory failure Referrals: Tita Bal MD [Primary Care Provider] - 1 Week Discharge Medications: Continued furosemide 40 mg Tablet 40 mg PO DAILY Qty: 30 0RF Protocol: Hold for SBP< HOLD for SBP < : 90 ipratropium-albuterol 0.5 mg-3 mg(2.5 mg base)/3 mL Solution For Nebulization 3 ml INHALATION TID potassium chloride 10 mEq Tablet Extended Release 10 meq PO DAILY Hold Instructions: Recheck K level in 1 week to decide if needed or not. Culturelle 10 billion cell Capsule 1 cap PO BID bupropion HCl 150 mg tablet extended release 24 hr 1 tab PO DAILY Rx Instructions: take with 300mg; tdd 450mg insulin glargine 100 unit/mL Solution 57 unit SUBCUT DAILY magnesium hydroxide [Milk of Magnesia] 400 mg/5 mL Suspension 30 ml PO DAILY PRN (Reason: Constipation) Rx Instructions: USE IF NO BOWEL MOVEMENT FOR 3 DAYS Fleet Enema 19-7 gram/118 mL Enema 118 ml AR DAILY PRN (Reason: Constipation) Rx Instructions: IF NO BOWEL MOVEMENT 8 HOURS AFTER BISACODYL fluticasone propion-salmeterol [AirDuo RespiClick] 113-14 mcg/actuation aerosol powdr breath activated 1 inh inhalation DAILY Rx Instructions: rinse mouth after use AND SPIT OUT atorvastatin 80 mg Tablet 80 mg PO BEDTIME sennosides [senna] 8.6 mg Tablet 17.2 mg PO DAILY PRN (Reason: Constipation) acetaminophen 325 mg Tablet 650 mg PO Q4H PRN (Reason: Fever Or Pain) polyethylene glycol 3350 [Miralax] 17 gram Powder In Packet 17 g PO DAILY PRN (Reason: Constipation) tizanidine 4 mg Tablet 4 mg PO BEDTIME PRN (Reason: Muscle Spasm) enalapril maleate 20 mg Tablet 20 mg PO DAILY sertraline 100 mg Tablet 200 mg PO DAILY melatonin 3 mg Tablet 3 mg PO BEDTIME ferrous sulfate 325 mg (65 mg iron) Tablet 325 mg PO DAILY gabapentin 300 mg Capsule 300 mg PO DAILY@1200 gabapentin 300 mg Capsule 600 mg PO BID insulin lispro 100 unit/mL Insulin Pen See Protocol [facility] Protocol: Insulin Correction Scale Less than or equal to 110 ---- Give (units): 0 111 to 150 Give (units): 0 151 to 200 Give (units): 0 201 to 250 Give (units): 4 251 to 300 Give (units): 6 301 to 350 Give (units): 8 Greater than 350 Give (units): 10 Call MD if Blood Glucose > : 350 Rx Instructions: SLIDING SCALE IF FLOOD GLUCOSE GREATER THAN 400, GIVE 12 UNITS AND NOTIFY MD amlodipine 5 mg Tablet 5 mg PO DAILY 30 Days Qty: 30 0RF Protocol: Hold for SBP< HOLD for SBP < : 90 aspirin 81 mg Tablet,Chewable 81 mg PO DAILY megestrol 400 mg/10 mL (10 mL) Suspension 400 mg PO TID metformin 500 mg tablet 500 mg PO BID Ozempic 0.25 mg or 0.5 mg (2 mg/3 mL) pen injector 0.25 mg subcut WE Rx Instructions: CHANGE TO 0.50 MG STARTING 01/22/23 prednisone 20 mg tablet 40 mg PO DAILY Qty: 6 0RF Rx Instructions: END DATE 01/03/23 bisacodyl 10 mg suppository 10 mg AR DAILY PRN (Reason: Constipation) Rx Instructions: GIVE IF NO RESULT FROM MILK OF MAGNESIA magnesium citrate [Citrate of Magnesia] Solution 150 ml PO DAILY PRN (Reason: Constipation) Rx Instructions: IF NO BOWEL MOVEMENT 12 HOURS AFTER FLEET ENEMA bupropion HCl 300 mg tablet extended release 24 hr 300 mg PO DAILY Rx Instructions: take with 150mg dose; tdd 450mg insulin lispro 100 unit/mL solution 5 unit subcut TIDAC Changed acetazolamide 250 mg Tablet 500 mg PO BID Qty: 60 0RF Discontinued cefuroxime axetil 500 mg tablet 500 mg PO BID Qty: 6 0RF Rx Instructions: TAKE UNTIL 01/03/23 Discharge Orders: Discharge Order (Routine); Ordered 01/06/23 Ordered By: Tom Batista Diet: Low salt diet Activity on Discharge: As tolerated Stand Alone Forms: Patient Portal Discharge page Care Plan Goals: Read below Health Concerns: Read below Plan of Treatment: Read below Assessment: You were admitted to the hospital for difficulties breathing and altered mentation from carbon dioxide poisoning requiring ICU admission and monitoring. improved with using BiPAP and diuresis. Use BiPAP 15/6 with Naps and bedtime Increase Acetzolamide to 500 mg bid Low sodium diet, take Furosemide as prescribed Discharge Date/Time: 01/06/23 18:38
[2023-01-06] MEDS: Gabapentin 300 MG CAPSULE PO (12:38)
[2023-01-06 13:12] LABS: COVID-19 Test Negative (Negative); IDNOW Serial# 08D9AD1C
--- NOTE | 2023-01-06 13:14 | MHC.CM.PN ---
IMM 01/06. EMR reviewed, and per MD, pt medically cleared for D/C today. HCP signed today, pt appointed her Maih. Pt to return to [facility], facility updated via [facility]. Transportation booked via [facility] for 5:30pm.
[2023-01-06 16:27] LABS: Glucose, Whole Blood 415 mg/dL (60-115)
== END 2023-01-06 18:38 | disposition skilled nursing facility (03) | DRG 291 ==
LOC: HO.ED 18:17 → HO.EDOVER 18:33 → HO.ICU 20:18 → HO.IMC 01-02 20:06
PROVIDERS: Internal Medicine; Nurse Practitioner Family; Admitting Provider Internal Medicine Pulmonary Disease; Emergency Provider Emergency Medicine Emergency Medical Services; PCP Internal Medicine; Visit Provider Student in an Organized Health Care Education/Training Program
DX: I11.0 Hypertensive heart disease with heart failure (principal); I50.33 Acute on chronic diastolic (congestive) heart failure; J96.21 Acute and chronic respiratory failure with hypoxia; J96.22 Acute and chronic respiratory failure with hypercapnia; E66.2 Morbid (severe) obesity with alveolar hypoventilation; Z68.43 Body mass index [BMI] 50.0-59.9, adult; I44.2 Atrioventricular block, complete; J98.11 Atelectasis; N17.9 Acute kidney failure, unspecified; E78.5 Hyperlipidemia, unspecified; L89.302 Pressure ulcer of unspecified buttock, stage 2; I49.5 Sick sinus syndrome; E11.51 Type 2 diabetes mellitus with diabetic peripheral angiopathy without gangrene; J44.9 Chronic obstructive pulmonary disease, unspecified; Z20.822 Contact with and (suspected) exposure to COVID-19; Z87.891 Personal history of nicotine dependence; Z91.040 Latex allergy status; Z99.81 Dependence on supplemental oxygen; Z95.0 Presence of cardiac pacemaker; Z88.6 Allergy status to analgesic agent; Z88.8 Allergy status to other drugs, medicaments and biological substances; Z79.4 Long term (current) use of insulin; Z79.51 Long term (current) use of inhaled steroids; Z79.52 Long term (current) use of systemic steroids; Z79.82 Long term (current) use of aspirin; Z79.899 Other long term (current) drug therapy
CPT/HCPCS: 36415; 36600; 71045; 80048; 80076; 81001; 82040; 82803; 82947; 83735; 84100; 85025; 87635; 93005; 94660; 99285; C1758; J1643; J1940; J2405

== ENCOUNTER 2023-01-12 08:38 | Inpatient (IN) | payer OTHER, MEDICARE, MEDICAID, SELFPAY ==
[2023-01-12] VITALS (16 sets, daily range): BP systolic 98–144; BP diastolic 48–103; PULSE 70–91; RESP 12–32; TEMP 35.2–37.2; O2SAT 90–96; BMI 62.9; BMI 65.7
--- NOTE | ~2023-01-12 | US_ITS ---
EXAMINATION: US RETROPERITONEAL LIMITED (RENAL ONLY) CLINICAL INFORMATION: Urinary tract infection.. COMPARISON: None available. TECHNIQUE: Real-time imaging of the kidneys. FINDINGS: RIGHT KIDNEY: 11.5 x 5.3 x 5.5 cm (SAG x AP x TRV). The kidney is normal in size, contour, and echogenicity. Renal cortical thickness is normal. No calculi or focal parenchymal lesions. No hydronephrosis. LEFT KIDNEY: 14.3 x 6.2 x 5.2 cm (SAG x AP x TRV). The kidney is normal in size, contour, and echogenicity. Renal cortical thickness is normal. No calculi or focal parenchymal lesions. No hydronephrosis. At the lower pole, a 5.3 cm maximal diameter anechoic, simple cyst is seen. OTHER: There is cholelithiasis. US/US renal BI IMPRESSION: 1. A 5.3 cm benign, simple left renal cyst is seen, for which no imaging follow-up is recommended. 2. No bilateral solid mass, calculus or hydronephrosis is seen. 3. There is cholelithiasis.
--- NOTE | ~2023-01-12 | XR_ITS ---
EXAMINATION: XR chest 1V CLINICAL INFORMATION: Reason for Exam Unresponsive, hypoxia COMPARISON: Prior chest x-ray 01/01/2023 TECHNIQUE: XR chest 1V Tubes and lines: None Lungs and pleura: Diminished lung volume, there is pulmonary vascular congestion, mild interstitial opacification possibly mild interstitial edema, probably small left pleural effusion obscuring the left hemidiaphragm. Heart and mediastinum: Heart and mediastinum are widened exaggerated by AP technique unchanged.. Bones/soft tissue: Skeletal structures included are normal for patient's age. XR/XR chest 1V IMPRESSION: * Congestive heart failure. * Mild interstitial opacification possibly mild interstitial edema. * Small left pleural effusion obscuring the left hemidiaphragm. * Widened mediastinum exaggerated by AP technique.
--- NOTE | 2023-01-12 08:41 | ECG_ITS ---
Test Reason : UNRESPONSIVE Blood Pressure : / mmHG Vent. Rate : 083 BPM Atrial Rate : 000 BPM P-R Int : 000 ms QRS Dur : 172 ms QT Int : 404 ms P-R-T Axes : 000 -40 117 degrees QTc Int : 474 ms Normal sinus rhythm Left axis deviation Left bundle branch block Abnormal ECG When compared with ECG of 01-JAN-2023 13:52, Normal sinus rhythm has replaced Electronic atrial pacemaker Referred By: Laurie White Electronically Signed By:MAREN VIDALES MD
--- NOTE | 2023-01-12 08:55 | PC.NURSE ---
PT PLACED ON BIPAP, IV ACCESS WAS GAINED.
[2023-01-12 08:56] LABS: Glucose, Whole Blood 298 mg/dL (60-115)
[2023-01-12] MEDS: 0.9 % Sodium Chloride 1,000 ML 999 ML IV (09:04)
[2023-01-12 09:09] LABS: MANUAL DIFF FLAG NO
[2023-01-12 09:13] LABS: Basophils Percent Auto 0.4 % (0-2); Eosinophils Percent Auto 0.4 % (0-4); Hematocrit 46.3 % (37.0-47.0); Hemoglobin 13.2 g/dl (12.0-16.0); Imm Gran Abs Auto 0.04 X10*3/uL (0.00-0.03); Imm Gran Pct Auto 0.4 % (0.0-0.4); Lymphocytes Percent Auto 9.9 % (20-40); Mean Corpuscular HGB Conc 28.5 g/dl (31.0-35.0); Mean Corpuscular Hemoglobin 28.2 pg (27.0-33.0); Mean Corpuscular Volume 98.9 fL (80.0-98.0); Monocytes Absolute Auto 0.6 X10*3/uL (0.1-1.2); Monocytes Percent Auto 6.1 % (2-11); NRBC Pct Auto 0.5 /100WBC (0.0-0.2); Neutrophils Absolute Auto 8.5 x10*3/uL (2.0-8.3); Neutrophils Percent Auto 82.8 % (45-73); PLT CLUMP 1; Red Blood Count 4.68 X10*6/uL (4.20-5.50); Red Cell Distribution Width 15.6 % (11.0-16.0); SCAN SMEAR FLAG 1
--- NOTE | 2023-01-12 09:15 | PC.NURSE ---
Pt responding to painful stimuli, opening eyes. Pinpoint pupils
[2023-01-12 09:20] LABS: Lactic Acid 0.7 mmol/L (0.5-2.0)
[2023-01-12 09:21] LABS: White Blood Count 10.3 X10*3/uL (4.8-10.8)
[2023-01-12 09:29] LABS: Mean Platelet Volume 10.5 fL (9.4-12.3); Platelet Count 205 X10*3/uL (160-400)
[2023-01-12 09:30] LABS: B Type Natriuretic Peptide 71 pg/mL (<100)
[2023-01-12 09:32] LABS: Troponin-I High Sensitivity 12.5 ng/L (<3.5-17.0)
--- NOTE | 2023-01-12 09:36 | ED.SOB ---
HPI - SOB/Dyspnea General Chief Complaint: Dyspnea Stated Complaint: SEPSIS ALERT, AMS, LOW O2 Time Seen by Provider: 01/12/23 08:41 Source: patient, EMS, RN notes reviewed and old records reviewed Mode of arrival: EMS Limitations: no limitations History of Present Illness HPI Narrative: 62-year-old female came from a snf with history of morbid obesity hyperventilation syndrome, CHF, SMILEY, hypertension, pulmonary embolism on Eliquis, sick sinus syndrome, chronic anemia, CPAP only at nighttime brought in for change of mental status since yesterday, last known to be well was after dinner yesterday, patient started to have confusion and becoming more lethargic with hypoxia of O2 sat in the 80s. No fever, no coughing reported by nursing staff. Related Data Home Medications Medication Instructions Recorded Confirmed acetaminophen 325 mg tablet 650 mg PO Q4H PRN Fever Or Pain 11/18/21 01/12/23 atorvastatin 80 mg tablet 80 mg PO BEDTIME 11/18/21 01/12/23 enalapril maleate 20 mg tablet 20 mg PO DAILY 11/18/21 01/12/23 ferrous sulfate 325 mg (65 mg 325 mg PO DAILY 11/18/21 01/12/23 iron) tablet gabapentin 300 mg capsule 300 mg PO DAILY@1200 11/18/21 01/12/23 gabapentin 300 mg capsule 600 mg PO BID 11/18/21 01/12/23 insulin lispro 100 unit/mL See Protocol subcut QIDACHS 11/18/21 01/12/23 subcutaneous pen melatonin 3 mg tablet 3 mg PO BEDTIME 11/18/21 01/12/23 polyethylene glycol 3350 17 gram 17 g PO DAILY PRN Constipation 11/18/21 01/12/23 oral powder packet (Miralax) sennosides 8.6 mg tablet (senna) 17.2 mg PO DAILY PRN Constipation 11/18/21 01/12/23 sertraline 100 mg tablet 200 mg PO DAILY 11/18/21 01/12/23 tizanidine 4 mg tablet 4 mg PO BEDTIME PRN Muscle Spasm 11/18/21 01/12/23 aspirin 81 mg chewable tablet 81 mg PO DAILY 01/05/22 01/12/23 megestrol 400 mg/10 mL (10 mL) 400 mg PO TID 01/05/22 01/12/23 oral suspension bupropion HCl 300 mg 24 hr tablet, 300 mg PO DAILY 04/09/22 01/12/23 extended release insulin lispro 100 unit/mL 5 unit subcut TIDAC 04/09/22 01/12/23 subcutaneous solution Lactobacillus rhamnosus GG 10 1 cap PO BID 10/09/22 01/12/23 billion cell capsule (Culturelle) bupropion HCl 150 mg 24 hr tablet, 1 tab PO DAILY 10/09/22 01/12/23 extended release ipratropium 0.5 mg-albuterol 3 mg 3 ml inhalation TID 10/09/22 01/12/23 (2.5 mg base)/3 mL nebulization soln potassium chloride 10 mEq 10 meq PO DAILY 10/09/22 01/12/23 tablet,extended release bisacodyl 10 mg rectal suppository 10 mg IA DAILY PRN Constipation 10/21/22 01/12/23 magnesium citrate (Citrate of 150 ml PO DAILY PRN Constipation 10/21/22 01/12/23 Magnesia oral) fluticasone 113 mcg-salmeterol 14 1 inh inhalation BID 11/09/22 01/12/23 mcg/actuation breath activated powdr (AirDuo RespiClick) insulin glargine 100 unit/mL 57 unit subcut DAILY 11/09/22 01/12/23 subcutaneous solution magnesium hydroxide 400 mg/5 mL 30 ml PO DAILY PRN Constipation 11/09/22 01/12/23 oral suspension (Milk of Magnesia) sodium phosphates 19 gram-7 118 ml IA DAILY PRN Constipation 11/09/22 01/12/23 gram/118 mL enema (Fleet Enema) metformin 500 mg tablet 500 mg PO BID 12/27/22 01/12/23 semaglutide 0.25 mg or 0.5 mg (2 0.25 mg subcut WE 12/27/22 01/12/23 mg/3 mL) subcutaneous pen injector (Ozempic) aripiprazole 2 mg tablet 2 mg PO DAILY 01/12/23 01/12/23 Previous Rx's Medication Instructions Recorded amlodipine 5 mg tablet 5 mg PO DAILY 30 days #30 tabs 11/26/21 furosemide 40 mg tablet 40 mg PO DAILY #30 tabs 04/05/22 acetazolamide 250 mg tablet 500 mg PO BID #60 tabs 01/06/23 Allergies Allergy/AdvReac Type Severity Reaction Status Date / Time latex Allergy Unknown Unknown Verified 10/21/22 13:48 adhesive tape AdvReac Unknown Unknown Verified 10/21/22 13:48 bupropion [From Wellbutrin] AdvReac Unknown Unknown Verified 10/21/22 13:48 ibuprofen AdvReac Unknown Unknown Verified 10/21/22 13:48 Review of Systems Review of Systems: Yes Unobtainable due to mental status PMFSH Past Medical History Medical History Acute and chronic respiratory failure with hypercapnia Acute and chronic respiratory failure with hypercapnia Acute on chronic respiratory failure with hypoxia and hypercapnia Anemia Arthritis Atelectasis of both lungs CHF (congestive heart failure) Clostridium difficile infection Depression Diabetes mellitus, type 2 Diabetic ulcer of foot associated with diabetes mellitus due to underlying condition, with fat layer exposed Heart block AV third degree Hypertension Hypertrophic nonobstructive cardiomyopathy Hypoventilation associated with obesity syndrome Metabolic encephalopathy Morbid obesity Morbid obesity Morbid obesity Obesity hypoventilation syndrome SMILEY (obstructive sleep apnea) PAD (peripheral artery disease) Presence of permanent cardiac pacemaker Presence of permanent cardiac pacemaker Pressure injury of deep tissue of buttock Pressure ulcer, stage II, skin breakdown Pulmonary embolism Respiratory failure Respiratory failure with hypoxia and hypercapnia Sick sinus syndrome Urinary tract infection due to ESBL Klebsiella Surgical History History of total knee replacement Social History Social History Household Members: Spouse Housing: [facility] Housing Other:: rehab facility Are you a primary workforce investment act career manager to a significant other at home: No Do you presently have visiting nurse or other home services: No Unable to assess alcohol history related to: Unable to respond Alcohol intake: unknown Patient Tobacco Use Status: Former Tobacco user Quit Date: 1999 Tobacco use type: Cigarette Cigarette Packs Per Day: 20 Cigarettes Per Day: 400.0 Years Smoked: 20 e-Cigarette/Vaping Use: Never Used Second Hand Smoke Exposure: No Substance Use Type: Unknown Advance Directives: Yes Advance Directives on File: Yes Advance Directives Date on File: 01/07/23 service: No Current occupational status: disabled Physical Exam Vital Signs: Vital Signs: Last Vital Signs Temp 98.2 F 01/12/23 13:55 Pulse 77 01/12/23 13:42 Resp 24 H 01/12/23 14:04 BP 120/71 01/12/23 13:42 Pulse Ox 96 01/12/23 13:42 O2 Del Method BiPAP 01/12/23 13:42 BMI result Body Mass Index 62.9 Vital signs have been reviewed as appeared to be correct. Blood pressure normal. Heart rate normal. Respiration rate normal. Temperature normal. Oxygen saturation normal. Appearance: Alert. Obtundent. No acute distress. Head: Normal external exam. Normocephalic. Atraumatic. No Gandhi signs noted. No raccoon eyes noted Eyes: PERRLA. EOMI. Conjunctiva and sclera normal. Eyelids normal. ENT: TM's Normal. Pharynx normal. Uvula midline. Moist mucous membranes. No trismus noted. No drooling noted. No muffled voice noted. Neck: Normal inspection. Neck supple. FROM. No adenopathy. Thyroid Normal. No meningeal signs. No neck mass noted. CVS: Normal heart rate and rhythm. Heart sound normal. No murmurs noted. Pulses normal throughout. Respiratory: No respiratory distress. Painless inspiration. Breath sounds normal. No wheezes/rales/rhonchi noted. Chest nontender. No accessory muscle usage noted or decreased air movement noted. Abdomen: Soft and nontender. Bowel sounds normal in all 4 quadrants. No distention noted. No organomegaly noted. No visible injury noted. Back: No CVA tenderness. Full range of motion noted. Skin: Skin warm and dry. Normal skin color. Normal skin turgor. No rashes/lesions/lacerations noted. Extremities: No lower extremity edema. Extremities exhibit normal range of motion. Extremities nontender. Neuro: Obtundent Cranial nerve exam: II-XII are grossly intact No motor deficit. No sensory deficit. Reflexes normal. Course Reevaluation(s) Reevaluation #1: A 62 year female with acute on chronic respiratory failure came in with change mental status and being obtunded, patient remained in the emergency department on BiPAP with a significant improvement in her mentation and breathing, ICU was consulted Dr. Armenta who recommended to continue BiPAP then try to wean her off, and if the patient required to continue the BiPAP will be admitted to ICU. Blood culture/lactic acid was obtained, 1 L of IV fluids and levofloxacin was administrated to treat COPD with service/severe sepsis but no septic shock (maintained normal blood pressure and normal lactic acid). Interstitial pulmonary edema patient received 1 dose of Lasix. Repeat potassium is within normal. Hyperglycemia with no DKA received 1 dose of insulin will keep monitoring blood glucose. I had a lengthy conversation with the at the bedside who also a healthcare proxy stated that patient wishes is not to intubate and to keep her DNR/DNI. Dr. Gonzalez will assume the care for the patient at the end of my shift and continue manage and disposition the patient accordingly. Time: 15:26 Medications Administered Discontinued Medications Generic Name Dose Route Start Last Admin Trade Name Freq PRN Reason Stop Dose Admin Albuterol Sulfate 10 mg 01/12/23 09:47 01/12/23 09:52 Albuterol Sulfate (0.083%) 2.5 Mg/3 Ml Vial.Neb INHALE 01/12/23 09:48 10 mg ONCE ONE Administration Sodium Chloride 1,000 mls @ 999 mls/hr 01/12/23 08:41 01/12/23 13:27 Ns IV 01/12/23 09:41 Infused .Q1H1M ONE Infusion Levofloxacin 750 mg in 150 mls @ 100 mls/hr 01/12/23 09:36 01/12/23 13:27 Levaquin IV 01/12/23 11:05 Infused ONCE ONE Infusion Medical Decision Making Differential Diagnosis Differential Diagnoses: The differential diagnosis associated with the presentation includes (Acute on chronic respiratory failure, ACS, infection, sepsis.) Consult Healthcare Provider Management of the patient was discussed with: Systems Mgr (Dr. Armenta) Lab Data [facility] Lab Attestation statement: I reviewed the patient's lab results. 01/12/23 09:03 01/12/23 09:03 Labs: Lab Results 01/12/23 01/12/23 01/12/23 Range/Units 08:52 09:03 09:03 WBC 10.3 (4.8-10.8) X10*3/uL RBC 4.68 (4.20-5.50) X10*6/uL Hgb 13.2 (12.0-16.0) g/dl Hct 46.3 D (37.0-47.0) % MCV 98.9 H (80.0-98.0) fL MCH 28.2 (27.0-33.0) pg MCHC 28.5 L (31.0-35.0) g/dl RDW 15.6 (11.0-16.0) % Plt Count 205 (160-400) X10*3/uL MPV 10.5 (9.4-12.3) fL Immature Gran % (Auto) 0.4 (0.0-0.4) % Neut % (Auto) 82.8 H (45-73) % Lymph % (Auto) 9.9 L (20-40) % [place] % (Auto) 6.1 (2-11) % Eos % (Auto) 0.4 (0-4) % Baso % (Auto) 0.4 (0-2) % Lymph # (Auto) 1.0 L (1.2-4.9) X10*3/uL [place] # (Auto) 0.6 (0.1-1.2) X10*3/uL Eos # (Auto) 0.0 (0.0-0.4) X10*3/uL Baso # (Auto) 0.0 (0.0-0.2) X10*3/uL Abs Immat Gran (auto) 0.04 H (0.00-0.03) X10*3/uL Absolute Neuts (auto) 8.5 H (2.0-8.3) x10*3/uL Absolute Nucleated RBC 0.050 H (0.0-0.012) X10*3/uL Nucleated RBC % (auto) 0.5 H (0.0-0.2) /100WBC VBG pH (7.32-7.43) VBG pCO2 mmHg VBG pO2 mmHg VBG HCO3 (22-26) mmol/L VBG O2 Saturation % VBG Base Excess mmol/L Sodium 143 (135-145) mmol/L Potassium 6.8 H* D (3.3-5.1) mmol/L Chloride 108 (96-108) mmol/L Carbon Dioxide 27 (22-29) mmol/L Anion Gap 15 (12-20) BUN 43 H (9-16) mg/dL Creatinine 1.87 H (0.5-1.4) mg/dL Estim Creat Clear Calc 46.6 Estimated GFR 27 POC Glucose 298 H (60-115) mg/dL Random Glucose 330 H (60-115) mg/dL Lactic Acid (0.5-2.0) mmol/L Calcium 9.1 (8.4-10.2) mg/dL Total Bilirubin 0.3 (0.0-1.0) mg/dL Direct Bilirubin 0.1 (0.0-0.5) mg/dL AST 16 (5-31) U/L ALT 23 (0-31) U/L Alkaline Phosphatase 84 (39-117) U/L Troponin I High Sens (<3.5-17.0) ng/L B-Natriuretic Peptide (<100) pg/mL Total Protein 7.1 (6.5-8.0) g/dL Albumin 3.7 (3.5-5.0) g/dL Lipase 10 (8-78) U/L Urine Color Urine Appearance Urine pH (5.0-9.0) Ur Specific [place] (1.005-1.025) Urine Protein (Neg-Trace) mg/dL Urine Glucose (UA) (Negative) mg/dL Urine Ketones (Negative) mg/dL Urine Blood (Negative) Urine Nitrite (Negative) Ur Leukocyte Esterase (Negative) Urine RBC (0-2) /HPF Urine WBC (0-5) /HPF Ur Squamous Epith Cells (0-2) /HPF Urine Bacteria (None Seen) Hyaline Casts (0-2) /LPF Influenza Type A (PCR) (Negative) Influenza Type B (PCR) (Negative) RSV RNA Qual (PCR) (Negative) SARS-CoV-2 RNA (RT-PCR) (Negative) 01/12/23 01/12/23 01/12/23 Range/Units 09:03 09:03 09:03 WBC (4.8-10.8) X10*3/uL RBC (4.20-5.50) X10*6/uL Hgb (12.0-16.0) g/dl Hct (37.0-47.0) % MCV (80.0-98.0) fL MCH (27.0-33.0) pg MCHC (31.0-35.0) g/dl RDW (11.0-16.0) % Plt Count (160-400) X10*3/uL MPV (9.4-12.3) fL Immature Gran % (Auto) (0.0-0.4) % Neut % (Auto) (45-73) % Lymph % (Auto) (20-40) % [place] % (Auto) (2-11) % Eos % (Auto) (0-4) % Baso % (Auto) (0-2) % Lymph # (Auto) (1.2-4.9) X10*3/uL [place] # (Auto) (0.1-1.2) X10*3/uL Eos # (Auto) (0.0-0.4) X10*3/uL Baso # (Auto) (0.0-0.2) X10*3/uL Abs Immat Gran (auto) (0.00-0.03) X10*3/uL Absolute Neuts (auto) (2.0-8.3) x10*3/uL Absolute Nucleated RBC (0.0-0.012) X10*3/uL Nucleated RBC % (auto) (0.0-0.2) /100WBC VBG pH (7.32-7.43) VBG pCO2 mmHg VBG pO2 mmHg VBG HCO3 (22-26) mmol/L VBG O2 Saturation % VBG Base Excess mmol/L Sodium (135-145) mmol/L Potassium (3.3-5.1) mmol/L Chloride (96-108) mmol/L Carbon Dioxide (22-29) mmol/L Anion Gap (12-20) BUN (9-16) mg/dL Creatinine (0.5-1.4) mg/dL Estim Creat Clear Calc Estimated GFR POC Glucose (60-115) mg/dL Random Glucose (60-115) mg/dL Lactic Acid 0.7 (0.5-2.0) mmol/L Calcium (8.4-10.2) mg/dL Total Bilirubin (0.0-1.0) mg/dL Direct Bilirubin (0.0-0.5) mg/dL AST (5-31) U/L ALT (0-31) U/L Alkaline Phosphatase (39-117) U/L Troponin I High Sens 12.5 (<3.5-17.0) ng/L B-Natriuretic Peptide 71 (<100) pg/mL Total Protein (6.5-8.0) g/dL Albumin (3.5-5.0) g/dL Lipase (8-78) U/L Urine Color Urine Appearance Urine pH (5.0-9.0) Ur Specific [place] (1.005-1.025) Urine Protein (Neg-Trace) mg/dL Urine Glucose (UA) (Negative) mg/dL Urine Ketones (Negative) mg/dL Urine Blood (Negative) Urine Nitrite (Negative) Ur Leukocyte Esterase (Negative) Urine RBC (0-2) /HPF Urine WBC (0-5) /HPF Ur Squamous Epith Cells (0-2) /HPF Urine Bacteria (None Seen) Hyaline Casts (0-2) /LPF Influenza Type A (PCR) (Negative) Influenza Type B (PCR) (Negative) RSV RNA Qual (PCR) (Negative) SARS-CoV-2 RNA (RT-PCR) (Negative) 01/12/23 01/12/23 01/12/23 Range/Units 09:03 10:15 11:21 WBC (4.8-10.8) X10*3/uL RBC (4.20-5.50) X10*6/uL Hgb (12.0-16.0) g/dl Hct (37.0-47.0) % MCV (80.0-98.0) fL MCH (27.0-33.0) pg MCHC (31.0-35.0) g/dl RDW (11.0-16.0) % Plt Count (160-400) X10*3/uL MPV (9.4-12.3) fL Immature Gran % (Auto) (0.0-0.4) % Neut % (Auto) (45-73) % Lymph % (Auto) (20-40) % [place] % (Auto) (2-11) % Eos % (Auto) (0-4) % Baso % (Auto) (0-2) % Lymph # (Auto) (1.2-4.9) X10*3/uL [place] # (Auto) (0.1-1.2) X10*3/uL Eos # (Auto) (0.0-0.4) X10*3/uL Baso # (Auto) (0.0-0.2) X10*3/uL Abs Immat Gran (auto) (0.00-0.03) X10*3/uL Absolute Neuts (auto) (2.0-8.3) x10*3/uL Absolute Nucleated RBC (0.0-0.012) X10*3/uL Nucleated RBC % (auto) (0.0-0.2) /100WBC VBG pH (7.32-7.43) VBG pCO2 mmHg VBG pO2 mmHg VBG HCO3 (22-26) mmol/L VBG O2 Saturation % VBG Base Excess mmol/L Sodium 140 (135-145) mmol/L Potassium 4.4 D (3.3-5.1) mmol/L Chloride 113 H (96-108) mmol/L Carbon Dioxide 21 L (22-29) mmol/L Anion Gap 10 L (12-20) BUN 34 H (9-16) mg/dL Creatinine 1.40 (0.5-1.4) mg/dL Estim Creat Clear Calc 62.3 Estimated GFR 38 POC Glucose (60-115) mg/dL Random Glucose 459 H* (60-115) mg/dL Lactic Acid (0.5-2.0) mmol/L Calcium 6.7 L D (8.4-10.2) mg/dL Total Bilirubin (0.0-1.0) mg/dL Direct Bilirubin (0.0-0.5) mg/dL AST (5-31) U/L ALT (0-31) U/L Alkaline Phosphatase (39-117) U/L Troponin I High Sens (<3.5-17.0) ng/L B-Natriuretic Peptide (<100) pg/mL Total Protein (6.5-8.0) g/dL Albumin (3.5-5.0) g/dL Lipase (8-78) U/L Urine Color Dark Yellow Urine Appearance Cloudy Urine pH 5.0 (5.0-9.0) Ur Specific [place] 1.025 (1.005-1.025) Urine Protein Trace (Neg-Trace) mg/dL Urine Glucose (UA) Negative (Negative) mg/dL Urine Ketones Trace (Negative) mg/dL Urine Blood Negative (Negative) Urine Nitrite Negative (Negative) Ur Leukocyte Esterase Moderate (2+) H (Negative) Urine RBC 3-5 H (0-2) /HPF Urine WBC >50 H (0-5) /HPF Ur Squamous Epith Cells 11-20 (0-2) /HPF Urine Bacteria 2+ (None Seen) Hyaline Casts 6-10 (0-2) /LPF Influenza Type A (PCR) NEGATIVE (Negative) Influenza Type B (PCR) NEGATIVE (Negative) RSV RNA Qual (PCR) NEGATIVE (Negative) SARS-CoV-2 RNA (RT-PCR) NEGATIVE (Negative) 01/12/23 Range/Units 11:23 WBC (4.8-10.8) X10*3/uL RBC (4.20-5.50) X10*6/uL Hgb (12.0-16.0) g/dl Hct (37.0-47.0) % MCV (80.0-98.0) fL MCH (27.0-33.0) pg MCHC (31.0-35.0) g/dl RDW (11.0-16.0) % Plt Count (160-400) X10*3/uL MPV (9.4-12.3) fL Immature Gran % (Auto) (0.0-0.4) % Neut % (Auto) (45-73) % Lymph % (Auto) (20-40) % [place] % (Auto) (2-11) % Eos % (Auto) (0-4) % Baso % (Auto) (0-2) % Lymph # (Auto) (1.2-4.9) X10*3/uL [place] # (Auto) (0.1-1.2) X10*3/uL Eos # (Auto) (0.0-0.4) X10*3/uL Baso # (Auto) (0.0-0.2) X10*3/uL Abs Immat Gran (auto) (0.00-0.03) X10*3/uL Absolute Neuts (auto) (2.0-8.3) x10*3/uL Absolute Nucleated RBC (0.0-0.012) X10*3/uL Nucleated RBC % (auto) (0.0-0.2) /100WBC VBG pH 7.14 L* (7.32-7.43) VBG pCO2 57 mmHg VBG pO2 54 mmHg VBG HCO3 20 L (22-26) mmol/L VBG O2 Saturation 83.0 % VBG Base Excess -9.0 mmol/L Sodium (135-145) mmol/L Potassium (3.3-5.1) mmol/L Chloride (96-108) mmol/L Carbon Dioxide (22-29) mmol/L Anion Gap (12-20) BUN (9-16) mg/dL Creatinine (0.5-1.4) mg/dL Estim Creat Clear Calc Estimated GFR POC Glucose (60-115) mg/dL Random Glucose (60-115) mg/dL Lactic Acid (0.5-2.0) mmol/L Calcium (8.4-10.2) mg/dL Total Bilirubin (0.0-1.0) mg/dL Direct Bilirubin (0.0-0.5) mg/dL AST (5-31) U/L ALT (0-31) U/L Alkaline Phosphatase (39-117) U/L Troponin I High Sens (<3.5-17.0) ng/L B-Natriuretic Peptide (<100) pg/mL Total Protein (6.5-8.0) g/dL Albumin (3.5-5.0) g/dL Lipase (8-78) U/L Urine Color Urine Appearance Urine pH (5.0-9.0) Ur Specific [place] (1.005-1.025) Urine Protein (Neg-Trace) mg/dL Urine Glucose (UA) (Negative) mg/dL Urine Ketones (Negative) mg/dL Urine Blood (Negative) Urine Nitrite (Negative) Ur Leukocyte Esterase (Negative) Urine RBC (0-2) /HPF Urine WBC (0-5) /HPF Ur Squamous Epith Cells (0-2) /HPF Urine Bacteria (None Seen) Hyaline Casts (0-2) /LPF Influenza Type A (PCR) (Negative) Influenza Type B (PCR) (Negative) RSV RNA Qual (PCR) (Negative) SARS-CoV-2 RNA (RT-PCR) (Negative) Independent Interpretation I performed an independent interpretation of an: Plain X-Ray (Chest: Interstitial edema.) Radiology Impression Discussion of test interpretation with radiology: I have reviewed the radiologist's reading. Critical Care Time Critical Care Time Critical Care Time: Yes Total Critical Care Time: 60 Attestation: I spent 60 minutes providing critical care service to the patient, this including time spent at the bedside to evaluate the patient, reassess the patient, monitoring vital signs, review labs, and radiographic studies, counseling the patient/family, discussing the case with consultants, disposition the patient. Discharge Plan Discharge Clinical Impression: Acute exacerbation of chronic obstructive airways disease, Acute and chronic respiratory failure, Change in mental status Patient Disposition: Admitted As Inpatient
[2023-01-12 09:47] LABS: Alanine Aminotransferase 23 U/L (0-31); Albumin Level 3.7 g/dL (3.5-5.0); Alkaline Phosphatase 84 U/L (39-117); Anion Gap 15 (12-20); Aspartate Amino Transferase 16 U/L (5-31); Bilirubin Direct 0.1 mg/dL (0.0-0.5); Bilirubin Total 0.3 mg/dL (0.0-1.0); Blood Urea Nitrogen 43 mg/dL (9-16); Calcium 9.1 mg/dL (8.4-10.2); Carbon Dioxide 27 mmol/L (22-29); Chloride 108 mmol/L (96-108); Creatinine Clr Calc Pharmacy 46.6; Estimated Glomerular Filt Rate 27; Glucose Random 330 mg/dL (60-115); Lipase 10 U/L (8-78); Potassium 6.8 mmol/L (3.3-5.1); Sodium 143 mmol/L (135-145); Total Protein 7.1 g/dL (6.5-8.0)
[2023-01-12] MEDS: Albuterol Sulfate (0.083%) 2.5 MG/3 ML VIAL.NEB 10 MG INHALE (09:52)
[2023-01-12] MEDS: levoFLOXacin/D5W 750 MG/150 ML PIGGYBACK 100 MG IV (10:03)
--- NOTE | 2023-01-12 10:18 | PC.NURSE ---
Pt repositioned in bed, linens changed. Temp sensing frausto in place with urine output. X-ray being obtained at this point. Fluids and antibiotics infusing, at bedside. Pt continues to become more alert and oriented, able to open eyes and say 1-2 words.
[2023-01-12 10:21] LABS: Appearance Urine Cloudy; Color Urine Dark Yellow; Glucose Urine UA Negative (Negative); Leukocyte Esterase Urine Moderate (2+) (Negative); Nitrite Urine Negative (Negative); Specific Gravity - Urine 1.025 (1.005-1.025); UMIC TRIGGER UACC YES; Urine Blood Negative (Negative); Urine Ketones Trace mg/dL (Negative); Urine Protein Trace mg/dL (Neg-Trace)
[2023-01-12 10:32] LABS: Bacteria Urine 2+ (None Seen); UACC Culture Trigger YES; WBC Urine >50 /HPF (0-5)
[2023-01-12 11:34] LABS: VBG HCO3 20 mmol/L (22-26); VBG pCO2 57 mmHg; VBG pH 7.14 (7.32-7.43); VBG pO2 54 mmHg
[2023-01-12 11:34] LABS: Venous Blood Gas Refer to POC result
--- NOTE | 2023-01-12 11:40 | PC.NURSE ---
Pt awake and talking. Altered, asking questions about the grocery store, told respiratory that she was in [place].
--- NOTE | 2023-01-12 11:53 | PHA.MEDREC ---
Pharmacy Consult ? Medication Reconciliation Pharmacy has completed the medication reconciliation. Spoke with pharmacy and . Pharmacy was able to confirm medications and said they followed the discharge plan from previous visit (discharged 01/06) which was used as well. Last med rec was based off of a list from [facility].
[2023-01-12 11:54] LABS: Influenza A PCR NEGATIVE (Negative); Influenza B PCR NEGATIVE (Negative); Resp Syncy Virus RNA Qual PCR NEGATIVE (Negative); SARS COV2 PCR INHOUSE NEGATIVE (Negative)
[2023-01-12 12:05] LABS: Anion Gap 10 (12-20); Blood Urea Nitrogen 34 mg/dL (9-16); Calcium 6.7 mg/dL (8.4-10.2); Carbon Dioxide 21 mmol/L (22-29); Chloride 113 mmol/L (96-108); Creatinine Clr Calc Pharmacy 62.3; Estimated Glomerular Filt Rate 38; Glucose Random 459 mg/dL (60-115); Potassium 4.4 mmol/L (3.3-5.1); Sodium 140 mmol/L (135-145)
--- NOTE | 2023-01-12 13:53 | PC.NURSE ---
Pt remains on bipap at this time, awake at this time.
--- NOTE | 2023-01-12 15:51 | PC.NURSE ---
Pt taken off bipap and placed on oxymask at 4L.
[2023-01-12] MEDS: Insulin Regular, Human 100 UNIT/ML 3 ML VIAL IVPUSH ×2 (15:58→17:44)
[2023-01-12] MEDS: Furosemide 20 MG/2 ML VIAL IVPUSH (16:00)
--- NOTE | 2023-01-12 16:27 | PC.NURSE ---
updated on patient's status
[2023-01-12 16:49] LABS: Venous Blood Gas Refer to POC result
[2023-01-12 16:50] LABS: VBG Base Excess -4.4 mmol/L; VBG HCO3 22 mmol/L (22-26); VBG pCO2 46 mmHg; VBG pH 7.28 (7.32-7.43); VBG pO2 121 mmHg
--- NOTE | 2023-01-12 17:20 | PC.NURSE ---
Repeat lab work obtained, pending dispo for admission.
[2023-01-12 17:25] LABS: Anion Gap 15 (12-20); Blood Urea Nitrogen 45 mg/dL (9-16); Calcium 9.1 mg/dL (8.4-10.2); Carbon Dioxide 26 mmol/L (22-29); Chloride 109 mmol/L (96-108); Creatinine Clr Calc Pharmacy 46.3; Estimated Glomerular Filt Rate 27; Glucose Random 293 mg/dL (60-115); Potassium 6.4 mmol/L (3.3-5.1); Sodium 144 mmol/L (135-145)
[2023-01-12] MEDS: Calcium Gluconate/NaCl,Iso-Osm 2 GM/100 ML PLAST..BAG IV (17:44)
[2023-01-12] MEDS: Furosemide 40 MG/4 ML VIAL IVPUSH (17:44)
[2023-01-12 18:23] LABS: Venous Blood Gas Refer to POC result
[2023-01-12 18:24] LABS: VBG Base Excess -3.7 mmol/L; VBG HCO3 24 mmol/L (22-26); VBG pCO2 55 mmHg; VBG pH 7.24 (7.32-7.43); VBG pO2 52 mmHg
--- NOTE | 2023-01-12 18:24 | PC.NURSE ---
Pt resting, easily arousable. Medicated per the MAR, repeat lab work obtained. 400ml of urine output
[2023-01-12 18:34] LABS: Anion Gap 16 (12-20); Blood Urea Nitrogen 45 mg/dL (9-16); Calcium 9.4 mg/dL (8.4-10.2); Carbon Dioxide 25 mmol/L (22-29); Chloride 109 mmol/L (96-108); Creatinine Clr Calc Pharmacy 47.3; Estimated Glomerular Filt Rate 28; Glucose Random 263 mg/dL (60-115); Potassium 5.7 mmol/L (3.3-5.1); Sodium 144 mmol/L (135-145)
--- NOTE | 2023-01-12 19:13 | PM.IMHP ---
History of Present Illness Date of Service: 01/12/23 Attending physician on admission: Britta Butler Chief Complaint: Altered mental status, hypoxia Pt is a 62-year-old female with a PMH significant for?COPD on 4-6L home O2, respiratory failure with hypercapnia, obesity hypoventilation syndrome, insulin-dependent diabetes, HTN, HLD, HFpEF,?Heart block AV third degree,?dual chamber pacemaker, decubitus ulcer, morbid obesity, and ESBL UTI who presents to the ED from SNF with altered mental status and increased lethargy since yesterday. Pt currently alert and oriented towards self and time, not to place or situation; pt incapable of providing accurate HPI, which is obtained from chart and provider review. According to facility staff patient's last known well time was yesterday at dinner. Soon after patient became increasingly confused and hypoxic with O2 sat in the 80s. According to staff patient was afebrile with no cough reported. In the ED patient was placed on BiPAP with improvement to mentation and breathing. ED contacted ICU who said patient was okay to admit to the floor once she was weaned from BiPAP. In the ED was tachypneic up to 32, hypertensive up to 144/83, weaned from BiPAP and satting at 95% O2 on OxyMask. Labs were significant for no leukocytosis, initial potassium of 6.8, BUN 43, creatinine of 1.87, random glucose elevated at up to 459, BNP 71, troponin 12.5. ABG pH 7.14 with pCO2 57 with repeat pH 7.24 with pCO2 of 55. CXR showed evidence of congestive heart failure with small left pleural effusion and mild interstitial opacification possibly mild interstitial edema. EKG demonstrated chronic wide QRS rhythm and chronic left bundle-branch block. Pt was treated with IVF, albuterol, levofloxacin, insulin, furosemide IV, calcium gluconate, and Lokelma. Pt will be admitted to the hospital for acute on chronic hypoxic hypercapnic respiratory failure in the setting of CHF exacerbation. Review of Systems Review of Systems: Unable to obtain due to patient's mentation [facility] Medical History Acute and chronic respiratory failure with hypercapnia Acute and chronic respiratory failure with hypercapnia Acute on chronic respiratory failure with hypoxia and hypercapnia Anemia Arthritis Atelectasis of both lungs CHF (congestive heart failure) Clostridium difficile infection Depression Diabetes mellitus, type 2 Diabetic ulcer of foot associated with diabetes mellitus due to underlying condition, with fat layer exposed Heart block AV third degree Hypertension Hypertrophic nonobstructive cardiomyopathy Hypoventilation associated with obesity syndrome Metabolic encephalopathy Morbid obesity Morbid obesity Morbid obesity Obesity hypoventilation syndrome SMILEY (obstructive sleep apnea) PAD (peripheral artery disease) Presence of permanent cardiac pacemaker Presence of permanent cardiac pacemaker Pressure injury of deep tissue of buttock Pressure ulcer, stage II, skin breakdown Pulmonary embolism Respiratory failure Respiratory failure with hypoxia and hypercapnia Sick sinus syndrome Urinary tract infection due to ESBL Klebsiella Surgical History History of total knee replacement Social History Household Members: Spouse Housing: [facility] Housing Other:: rehab facility Are you a primary neonatal intensive care nurse to a significant other at home: No Do you presently have visiting nurse or other home services: No Unable to assess alcohol history related to: Unable to respond Alcohol intake: unknown Patient Tobacco Use Status: Former Tobacco user Quit Date: 1999 Tobacco use type: Cigarette Cigarette Packs Per Day: 20 Cigarettes Per Day: 400.0 Years Smoked: 20 e-Cigarette/Vaping Use: Never Used Second Hand Smoke Exposure: No Substance Use Type: Unknown Advance Directives: Yes Advance Directives on File: Yes Advance Directives Date on File: 01/07/23 service: No Current occupational status: disabled Meds Allergies Allergy/AdvReac Type Severity Reaction Status Date / Time latex Allergy Unknown Unknown Verified 10/21/22 13:48 adhesive tape AdvReac Unknown Unknown Verified 10/21/22 13:48 bupropion [From Wellbutrin] AdvReac Unknown Unknown Verified 10/21/22 13:48 ibuprofen AdvReac Unknown Unknown Verified 10/21/22 13:48 Active Medications: Current Medications Dextrose (D10) 250 mls @ 250 mls/hr IV Q15M PRN PRN Reason: per Hypoglycemia Standing Ord. Pharmacy Consult (Consult Rx Perform Med Rec) 1 each MISCELLANE ONCE PRN PRN Reason: Consult order Home Medications Medication Instructions Recorded Confirmed Last Taken Type acetaminophen 325 mg tablet 650 mg PO Q4H PRN Fever Or Pain 11/18/21 01/12/23 Unknown History atorvastatin 80 mg tablet 80 mg PO BEDTIME 11/18/21 01/12/23 Unknown History enalapril maleate 20 mg tablet 20 mg PO DAILY 11/18/21 01/12/23 Unknown History ferrous sulfate 325 mg (65 mg 325 mg PO DAILY 11/18/21 01/12/23 Unknown History iron) tablet gabapentin 300 mg capsule 300 mg PO DAILY@1200 11/18/21 01/12/23 Unknown History gabapentin 300 mg capsule 600 mg PO BID 11/18/21 01/12/23 Unknown History insulin lispro 100 unit/mL See Protocol subcut QIDACHS 11/18/21 01/12/23 Unknown History subcutaneous pen melatonin 3 mg tablet 3 mg PO BEDTIME 11/18/21 01/12/23 Unknown History polyethylene glycol 3350 17 gram 17 g PO DAILY PRN Constipation 11/18/21 01/12/23 Unknown History oral powder packet (Miralax) sennosides 8.6 mg tablet (senna) 17.2 mg PO DAILY PRN Constipation 11/18/21 01/12/23 Unknown History sertraline 100 mg tablet 200 mg PO DAILY 11/18/21 01/12/23 Unknown History tizanidine 4 mg tablet 4 mg PO BEDTIME PRN Muscle Spasm 11/18/21 01/12/23 Unknown History aspirin 81 mg chewable tablet 81 mg PO DAILY 01/05/22 01/12/23 Unknown History megestrol 400 mg/10 mL (10 mL) 400 mg PO TID 01/05/22 01/12/23 Unknown History oral suspension bupropion HCl 300 mg 24 hr tablet, 300 mg PO DAILY 04/09/22 01/12/23 Unknown History extended release insulin lispro 100 unit/mL 5 unit subcut TIDAC 04/09/22 01/12/23 Unknown History subcutaneous solution Lactobacillus rhamnosus GG 10 1 cap PO BID 10/09/22 01/12/23 Unknown History billion cell capsule (Culturelle) bupropion HCl 150 mg 24 hr tablet, 1 tab PO DAILY 10/09/22 01/12/23 Unknown History extended release ipratropium 0.5 mg-albuterol 3 mg 3 ml inhalation TID 10/09/22 01/12/23 Unknown History (2.5 mg base)/3 mL nebulization soln potassium chloride 10 mEq 10 meq PO DAILY 10/09/22 01/12/23 Unknown History tablet,extended release bisacodyl 10 mg rectal suppository 10 mg RI DAILY PRN Constipation 10/21/22 01/12/23 Unknown History magnesium citrate (Citrate of 150 ml PO DAILY PRN Constipation 10/21/22 01/12/23 Unknown History Magnesia oral) fluticasone 113 mcg-salmeterol 14 1 inh inhalation BID 11/09/22 01/12/23 Unknown History mcg/actuation breath activated powdr (AirDuo RespiClick) insulin glargine 100 unit/mL 57 unit subcut DAILY 11/09/22 01/12/23 Unknown History subcutaneous solution magnesium hydroxide 400 mg/5 mL 30 ml PO DAILY PRN Constipation 11/09/22 01/12/23 Unknown History oral suspension (Milk of Magnesia) sodium phosphates 19 gram-7 118 ml RI DAILY PRN Constipation 11/09/22 01/12/23 Unknown History gram/118 mL enema (Fleet Enema) metformin 500 mg tablet 500 mg PO BID 12/27/22 01/12/23 Unknown History semaglutide 0.25 mg or 0.5 mg (2 0.25 mg subcut WE 12/27/22 01/12/23 Unknown History mg/3 mL) subcutaneous pen injector (Ozempic) aripiprazole 2 mg tablet 2 mg PO DAILY 01/12/23 01/12/23 Unknown History Physical Exam Vital Signs and Narrative: Vital Signs: Last Vital Signs Temp 99.0 F 01/12/23 18:23 Pulse 89 01/12/23 18:23 Resp 26 H 01/12/23 18:23 BP 140/68 H 01/12/23 18:23 Pulse Ox 95 01/12/23 18:23 O2 Del Method Oxymask 01/12/23 18:23 O2 Flow Rate 4 01/12/23 18:23 BMI result Body Mass Index 62.9 Constitutional: Somnolent but arousable, confused, uncomfortable looking, in mild respiratory distress. Mental Status: Oriented to person and time only, not to place or situation. Eyes: Pupils are equal, round, and reactive to light. Ear, Nose, and Throat: Oropharynx clear, mucous membranes dry. Ears and nose without deformities. Trachea midline. Respiratory: Clear to auscultation bilaterally, but auscultation limited d/t body habitus. Cardiovascular: S1, S2, but auscultation limited d/t body habitus. Gastrointestinal: Abdomen soft, non-tender, non-distended. Normal bowel sounds. Neurologic: Cranial nerves II-XII are grossly intact bilaterally. No focal neurological deficits. Moves all extremities spontaneously. Skin: No rashes or lesions noted. Musculoskeletal: No cyanosis or clubbing. Extremities: Bilateral 2+ pitting edema. Upper and lower extremities cool to the touch. Capillary refill of upper and lower extremities WNL. Psychiatric: Confused, cooperative. Results Labs 01/12/23 09:03 01/12/23 18:16 Labs: Laboratory Results - last 24 hr 01/12/23 01/12/23 01/12/23 08:52 09:03 09:03 MCV 98.9 H MCH 28.2 MCHC 28.5 L RDW 15.6 Plt Count 205 MPV 10.5 Immature Gran % (Auto) 0.4 Neut % (Auto) 82.8 H Lymph % (Auto) 9.9 L Swisher % (Auto) 6.1 Eos % (Auto) 0.4 Baso % (Auto) 0.4 Lymph # (Auto) 1.0 L Swisher # (Auto) 0.6 Eos # (Auto) 0.0 Baso # (Auto) 0.0 Abs Immat Gran (auto) 0.04 H Absolute Neuts (auto) 8.5 H Absolute Nucleated RBC 0.050 H Nucleated RBC % (auto) 0.5 H VBG pH VBG pCO2 VBG pO2 VBG HCO3 VBG O2 Saturation VBG Base Excess Anion Gap 15 Estim Creat Clear Calc 46.6 Estimated GFR 27 POC Glucose 298 H Random Glucose 330 H Lactic Acid Calcium 9.1 Total Bilirubin 0.3 Direct Bilirubin 0.1 AST 16 ALT 23 Alkaline Phosphatase 84 Troponin I High Sens B-Natriuretic Peptide Total Protein 7.1 Albumin 3.7 Lipase 10 Urine Color Urine Appearance Urine pH Ur Specific Wendel Urine Protein Urine Glucose (UA) Urine Ketones Urine Blood Urine Nitrite Ur Leukocyte Esterase Urine RBC Urine WBC Ur Squamous Epith Cells Urine Bacteria Hyaline Casts Influenza Type A (PCR) Influenza Type B (PCR) RSV RNA Qual (PCR) SARS-CoV-2 RNA (RT-PCR) 01/12/23 01/12/23 01/12/23 09:03 09:03 09:03 MCV MCH MCHC RDW Plt Count MPV Immature Gran % (Auto) Neut % (Auto) Lymph % (Auto) Swisher % (Auto) Eos % (Auto) Baso % (Auto) Lymph # (Auto) Swisher # (Auto) Eos # (Auto) Baso # (Auto) Abs Immat Gran (auto) Absolute Neuts (auto) Absolute Nucleated RBC Nucleated RBC % (auto) VBG pH VBG pCO2 VBG pO2 VBG HCO3 VBG O2 Saturation VBG Base Excess Anion Gap Estim Creat Clear Calc Estimated GFR POC Glucose Random Glucose Lactic Acid 0.7 Calcium Total Bilirubin Direct Bilirubin AST ALT Alkaline Phosphatase Troponin I High Sens 12.5 B-Natriuretic Peptide 71 Total Protein Albumin Lipase Urine Color Urine Appearance Urine pH Ur Specific Wendel Urine Protein Urine Glucose (UA) Urine Ketones Urine Blood Urine Nitrite Ur Leukocyte Esterase Urine RBC Urine WBC Ur Squamous Epith Cells Urine Bacteria Hyaline Casts Influenza Type A (PCR) Influenza Type B (PCR) RSV RNA Qual (PCR) SARS-CoV-2 RNA (RT-PCR) 01/12/23 01/12/23 01/12/23 09:03 10:15 11:21 MCV MCH MCHC RDW Plt Count MPV Immature Gran % (Auto) Neut % (Auto) Lymph % (Auto) Swisher % (Auto) Eos % (Auto) Baso % (Auto) Lymph # (Auto) Swisher # (Auto) Eos # (Auto) Baso # (Auto) Abs Immat Gran (auto) Absolute Neuts (auto) Absolute Nucleated RBC Nucleated RBC % (auto) VBG pH VBG pCO2 VBG pO2 VBG HCO3 VBG O2 Saturation VBG Base Excess Anion Gap 10 L Estim Creat Clear Calc 62.3 Estimated GFR 38 POC Glucose Random Glucose 459 H* Lactic Acid Calcium 6.7 L D Total Bilirubin Direct Bilirubin AST ALT Alkaline Phosphatase Troponin I High Sens B-Natriuretic Peptide Total Protein Albumin Lipase Urine Color Dark Yellow Urine Appearance Cloudy Urine pH 5.0 Ur Specific Wendel 1.025 Urine Protein Trace Urine Glucose (UA) Negative Urine Ketones Trace Urine Blood Negative Urine Nitrite Negative Ur Leukocyte Esterase Moderate (2+) H Urine RBC 3-5 H Urine WBC >50 H Ur Squamous Epith Cells 11-20 Urine Bacteria 2+ Hyaline Casts 6-10 Influenza Type A (PCR) NEGATIVE Influenza Type B (PCR) NEGATIVE RSV RNA Qual (PCR) NEGATIVE SARS-CoV-2 RNA (RT-PCR) NEGATIVE 01/12/23 01/12/23 01/12/23 11:23 16:42 16:42 MCV MCH MCHC RDW Plt Count MPV Immature Gran % (Auto) Neut % (Auto) Lymph % (Auto) Swisher % (Auto) Eos % (Auto) Baso % (Auto) Lymph # (Auto) Swisher # (Auto) Eos # (Auto) Baso # (Auto) Abs Immat Gran (auto) Absolute Neuts (auto) Absolute Nucleated RBC Nucleated RBC % (auto) VBG pH 7.14 L* 7.28 L VBG pCO2 57 46 VBG pO2 54 121 VBG HCO3 20 L 22 VBG O2 Saturation 83.0 99.0 VBG Base Excess -9.0 -4.4 Anion Gap 15 Estim Creat Clear Calc 46.3 Estimated GFR 27 POC Glucose Random Glucose 293 H Lactic Acid Calcium 9.1 D Total Bilirubin Direct Bilirubin AST ALT Alkaline Phosphatase Troponin I High Sens B-Natriuretic Peptide Total Protein Albumin Lipase Urine Color Urine Appearance Urine pH Ur Specific Wendel Urine Protein Urine Glucose (UA) Urine Ketones Urine Blood Urine Nitrite Ur Leukocyte Esterase Urine RBC Urine WBC Ur Squamous Epith Cells Urine Bacteria Hyaline Casts Influenza Type A (PCR) Influenza Type B (PCR) RSV RNA Qual (PCR) SARS-CoV-2 RNA (RT-PCR) 01/12/23 01/12/23 18:16 18:17 MCV MCH MCHC RDW Plt Count MPV Immature Gran % (Auto) Neut % (Auto) Lymph % (Auto) Swisher % (Auto) Eos % (Auto) Baso % (Auto) Lymph # (Auto) Swisher # (Auto) Eos # (Auto) Baso # (Auto) Abs Immat Gran (auto) Absolute Neuts (auto) Absolute Nucleated RBC Nucleated RBC % (auto) VBG pH 7.24 L VBG pCO2 55 VBG pO2 52 VBG HCO3 24 VBG O2 Saturation 83.0 VBG Base Excess -3.7 Anion Gap 16 Estim Creat Clear Calc 47.3 Estimated GFR 28 POC Glucose Random Glucose 263 H Lactic Acid Calcium 9.4 Total Bilirubin Direct Bilirubin AST ALT Alkaline Phosphatase Troponin I High Sens B-Natriuretic Peptide Total Protein Albumin Lipase Urine Color Urine Appearance Urine pH Ur Specific Wendel Urine Protein Urine Glucose (UA) Urine Ketones Urine Blood Urine Nitrite Ur Leukocyte Esterase Urine RBC Urine WBC Ur Squamous Epith Cells Urine Bacteria Hyaline Casts Influenza Type A (PCR) Influenza Type B (PCR) RSV RNA Qual (PCR) SARS-CoV-2 RNA (RT-PCR) Imaging Radiologist's Impressions: Impressions Chest X-Ray 01/12/23 10:20 IMPRESSION: * Congestive heart failure. * Mild interstitial opacification possibly mild interstitial edema. * Small left pleural effusion obscuring the left hemidiaphragm. * Widened mediastinum exaggerated by AP technique. Assessment and Plan (1) Acute and chronic respiratory failure: Status: Acute (2) CHF exacerbation: Status: Acute (3) Hyperkalemia: Status: Acute Plan Pt is a 62-year-old female with a PMH significant for?COPD on 4-6L home O2, respiratory failure with hypercapnia, obesity hypoventilation syndrome, insulin-dependent diabetes, HTN, HLD, HFpEF,?Heart block AV third degree,?dual chamber pacemaker, decubitus ulcer, morbid obesity, and ESBL UTI who presents to the ED from SNF with altered mental status and increased lethargy since yesterday. Pt will be admitted to the hospital for acute on chronic hypoxic hypercapnic respiratory failure in the setting of CHF exacerbation. Acute on chronic hypoxic/hypercarbic respiratory failure Likely secondary to acute HFpEF exacerbation Patient initially placed on BiPAP in the in the ED with improved mentation and breathing Patient on home BiPAP at night, 5-7 L NC otherwise Continue Oxymask for now, wean as tolerated BiPAP at bedtime Titrate supplemental O2 between 88 and no more than 93% Acute HFpEF exacerbation CXR with evidence of CHF, bilateral pitting edema, pleural effusion Furosemide 40 mg IV b.i.d. Follow lytes, mg, I/O Daily weights, low-salt diet Echocardiogram Cardiology consult Monitor on telemetry Altered mental status Likely multifactorial: secondary to hypoxic/hypercarbic respiratory failure, CHF, possible UTI Treat as above BERNIE Patient's creatinine 1.87 at time of presentation, elevated from baseline of 0.90 Likely cardiorenal Treat as above with diuretics Follow BMP Hyperkalemia Patient's potassium 6.8 at time of presentation with repeats of 4.4, 6.4, 5.7 Patient given insulin, calcium gluconate, and Lokelma in the ED Follow BMP Question of UTI UA negative for nitrates, positive for moderate amount of leukocyte esterase, 3-5 RBC, >50 WBC, 11-20 epithelial cells, 2+ bacteria Patient unable to provide HPI Patient treated with levofloxacin in the ED Will treat empirically with ceftriaxone, started 01/13/2023 Follow cultures Diet Patient made NPO at this time due to altered mentation Swallow screen tomorrow, advanced diet as tolerated Insulin-dependent diabetes type 2 Hold home meds SSI, Lantus Diabetic diet Essential HTN Hold enalapril due to BERNIE Continue amlodipine HLD Continue statin Morbid obesity Advice weight loss advised d/t impact on above health issues Mood disorder Continue home meds Skin breakdown/sacral decubitus ulcer Patient position every 2 hours Air loss mattress Zinc oxide and foam dressing. DNR/DNI Attending?Dr. Butler DVT Prophylaxis: Lovenox Pt will require a hospitalization of at least two nights for treatment of?acute on chronic hypoxic hypercapnic respiratory failure in the setting of CHF exacerbation. Time Spent With Patient Time: Total time managing care of this patient today ____ minutes. Quality Stroke Does the patient have a stroke diagnosis?: No VTE Prior VTE?: No VTE Risk Level:: Medical - moderate - high VTE Device Contraindication: Treatment Not Indicated VTE Drug Contraindication: N/A - Med Ordered
--- NOTE | 2023-01-12 19:28 | PC.NURSE ---
this rn attempted to try po liquids prior to medication administration. pt unable to hold liquid in mouth. pt unable to make effort to swallow. dr jalloh and dr bolivar made aware. per dr bolivar hold po lokelmia
[2023-01-12] MEDS: Albuterol/Iprat 2.5/0.5MG 3 ML AMPUL.NEB INHALE (20:41)
[2023-01-12 20:44] LABS: VBG Base Excess -3.1 mmol/L; VBG HCO3 25 mmol/L (22-26); VBG pCO2 62 mmHg; VBG pH 7.21 (7.32-7.43); VBG pO2 61 mmHg
[2023-01-12 20:48] LABS: Venous Blood Gas Refer to POC result
[2023-01-12 21:27] LABS: Glucose, Whole Blood 223 mg/dL (60-115)
[2023-01-12] MEDS: Enoxaparin Sodium 40 MG/0.4 ML SYRINGE SUBCUT (21:39)
--- NOTE | 2023-01-12 21:42 | PC.NURSE ---
per dr bolivar pt to remain npo. hold po meds at this time. this rn removed iv from R Ac as was not flushing. 20 R hand and 20 L ac remain
[2023-01-12 22:35] LABS: Glucose, Whole Blood 233 mg/dL (60-115)
[2023-01-12] MEDS: 0.9 % Sodium Chloride Flush 3 ML SYRINGE IVFLUSH (22:38)
[2023-01-13] VITALS (8 sets, daily range): BP systolic 118–147; BP diastolic 52–73; PULSE 82–97; RESP 18–23; TEMP 36.3–36.8; O2SAT 89–97; BMI 65.8
[2023-01-13 06:59] LABS: Venous Blood Gas Refer to POC result
[2023-01-13 06:59] LABS: VBG Base Excess -0.2 mmol/L; VBG HCO3 26 mmol/L (22-26); VBG pCO2 51 mmHg; VBG pH 7.31 (7.32-7.43); VBG pO2 48 mmHg
--- NOTE | 2023-01-13 07:00 | CA_ITS ---
Transthoracic Echocardiogram Patient (Last, First, Middle): Bonnie Das, Gender: Female Date of : 1960 Age: 62 Procedure Date: 01/13/2023 Procedure Type: Transthoracic Echocardiogram Location: [facility] – [place] Height: 160.02 cm Weight: 168.29 kg BSA: 2.51 m2 Heart Rate: bpm BP: 134 / 52 mmHg Dj Instructor: ROYCE Referring MD: Camilo STONE Digital Producer: Steffen Yi MD Symptoms: CHF Study Quality: Technically Difficult, fair w Definity ECG Rhythm: Sinus Conclusions: - 1. Technically limited study despite use of contrast agent 2. Normal LV systolic function with LVEF of 60 65% with moderate LVH and with some asymmetric septal hypertrophy 3. Limited visualization cardiac valves with normal cardiac valvular Doppler 4. Normal RV systolic pressure Findings Procedure Information Contrast agent, definity, is being given per protocol without apparent complications. Left Ventricle The left ventricle was not well visualized. Normal left ventricular cavity size. There is moderately increased left ventricular wall thickness. The left ventricular systolic function is normal. The visually estimated ejection fraction is between 60-65%. Diastolic function is indeterminate on the basis of available data. Right Ventricle The right ventricle was not well visualized. There is normal right ventricular systolic function. Atria The left atrium was not well visualized. Interatrial shunt cannot be excluded. The right atrium was not well visualized. Aortic Valve The aortic valve was not well visualized. There is mild aortic valve stenosis. The mean gradient is 12 mmHg. The aortic valve area is 1.69 cm2. Mitral Valve The mitral valve was not well visualized. There is no mitral valve regurgitation. There is no mitral valve stenosis. Pulmonic Valve The pulmonic valve was not well visualized. Tricuspid Valve The tricuspid valve was not well visualized. There is trace tricuspid valve regurgitation. The right ventricular systolic pressure is normal. Normal right atrial pressure. There is no evidence of pulmonary hypertension. Great Vessels The aorta was not well visualized. The pulmonary artery was not well visualized. Venous The inferior vena cava is normal in size and collapses greater than 50% with inspiration. Pericardium/Pleural The pericardium was not well visualized. Prior Study Comparison No significant change compared to prior study dated: 11/19/2021. Measurements 2D Linear Measurements RVIDd: 4.50 RVIDd Index: 1.79 IVSd: 1.67 0.6-0.9/0.6-1.0 cm LVIDd: 5.80 3.9-5.3/4.2-5.9 cm LVIDd Index: 2.31 2.4-3.2/2.2-3.1 cm/m2 LVIDs: 3.58 2.0-3.6 cm LVPWd: 1.36 0.7-1.1 cm Ao Root: 3.20 2.1-3.5 cm LA Diam: 3.70 2.7-3.8/3.0-4.0 cm LAIDs Index: 1.47 1.5-2.3 cm/m2 LV Mass: 513.09 67-162/88-224 g LV Mass Index: 204.42 43-95/49-115 g/m2 LVOT Diam: 2.00 3.0+(-)1.3 cm Mitral Valve MV Pk E: 0.64 MV PK A: 1.29 MV Decel Time: 149.00 E/A: 0.50 E'Lateral: 5.00 E'Medial: 3.92 E/E' Med: 16.40 E/E' Lat: 12.90 PHT: 44.00 MVA PHT: 5.00 Decel [place]: 4.32 Aortic Valve AoV Pk Sunny: 2.37 AoV Mn Sunny: 1.59 AoV VTI: 0.39 AoV Pk Grad: 22.00 Aov Mn Grad: 12.00 DEL Cont.VTI: 1.69 LVOT LVOT Pk Sunny: 1.38 LVOT Mn Sunny: 0.97 LVOT VTI: 0.21 LVOT Pk Grad: 8.00 LVOT Mn Grad: 5.00 LVOT Diam: 2.00 LVOT Area: 3.14 Diastolic Function MV Pk E: 0.64 MV Pk A: 1.29 E/A: 0.50 E'Medial: 3.92 E/E' Med: 16.40 E' Laterial: 5.00 E/E' Lat: 12.90 Right Ventricle TAPSE (mm): 40.00 TVS' Sunny: 18.00 Tricuspid Valve TR Pk Sunny: 2.24 TR Pk Grad: 20.00 RA Press: 3.00 RVSP: 23.00 Great Vessels Aorta Ao Root-2D: 3.20 2.0-3.7 cm Ao Asc: 3.20 2.1-3.4 cm Pulmonary Valve PV Pk Sunny: 2.13 Peak PV Grad: 18.00 Updated in Other Vendor System with Status of Final Steffen Yi MD electronically signed on 01/13/2023 12:27:56 PM with status of Final
[2023-01-13 07:15] LABS: Anion Gap 15 (12-20); Blood Urea Nitrogen 47 mg/dL (9-16); Calcium 8.9 mg/dL (8.4-10.2); Carbon Dioxide 24 mmol/L (22-29); Chloride 110 mmol/L (96-108); Creatinine Clr Calc Pharmacy 57.2; Estimated Glomerular Filt Rate 33; Glucose Random 191 mg/dL (60-115); Magnesium 2.1 mg/dL (1.6-2.6); Potassium 5.4 mmol/L (3.3-5.1); Sodium 144 mmol/L (135-145)
[2023-01-13 07:29] LABS: Glucose, Whole Blood 171 mg/dL (60-115)
[2023-01-13] MEDS: Albuterol/Iprat 2.5/0.5MG 3 ML AMPUL.NEB INHALE ×3 (07:40→20:40)
--- NOTE | 2023-01-13 09:12 | MHC.CM.PN ---
Patient is a [facility] bed hold @ [facility]; CM will follow for dc planning. HCP is on file.
--- NOTE | 2023-01-13 10:16 | P.CONCA_ITS ---
History of Present Illness History of Present Illness Date of Service: 01/13/23 Requesting physician: Camilo Santana Chief complaint: Altered mental status, Hypoxia Narrative: I was consulted to see this patient for respiratory failure and suspected heart failure. Patient has a list of past medical history. Not a very good historian, patient still very confused. Patient does not know where she is at current time. She was brought to the hospital because of altered mental status noticed to be hypoxic respiratory failures. She has prior history of morbid o besity, respiratory failure which appears to be both related to her underlying pulmonary parenchymal disease as well as morbid obesity. She also has diagnosis of heart failure with preserved ejection fraction. She is currently in a snf facility but she declined that. Not sure what her current living situation is. She is not sure why she is in the hospital as well. She was brought in as mentioned above. Her BNP was within normal range in the 70s. Radiographic findings suggestive of possible interstitial edema. Patient has been given IV diuresis. Intake and output chart shows positive balance. There been no arrhythmias noted. Review of Systems Review of Systems: Yes Unobtainable due to mental status Neurologic: Reports confusion Psychiatric: Psychiatric: Reports confusion [facility] Past Medical History Medical History Acute and chronic respiratory failure with hypercapnia Acute and chronic respiratory failure with hypercapnia Acute on chronic respiratory failure with hypoxia and hypercapnia Anemia Arthritis Atelectasis of both lungs CHF (congestive heart failure) Clostridium difficile infection Depression Diabetes mellitus, type 2 Diabetic ulcer of foot associated with diabetes mellitus due to underlying condition, with fat layer exposed Heart block AV third degree Hypertension Hypertrophic nonobstructive cardiomyopathy Hypoventilation associated with obesity syndrome Metabolic encephalopathy Morbid obesity Morbid obesity Morbid obesity Obesity hypoventilation syndrome SMILEY (obstructive sleep apnea) PAD (peripheral artery disease) Presence of permanent cardiac pacemaker Presence of permanent cardiac pacemaker Pressure injury of deep tissue of buttock Pressure ulcer, stage II, skin breakdown Pulmonary embolism Respiratory failure Respiratory failure with hypoxia and hypercapnia Sick sinus syndrome Urinary tract infection due to ESBL Klebsiella Surgical History Surgical History History of total knee replacement Social History Social History Household Members: Unknown / Unable to assess Housing: Other Housing Other:: SNF Are you a primary progressive care unit registered nurse to a significant other at home: No Do you presently have visiting nurse or other home services: No Unable to assess alcohol history related to: Unable to respond Alcohol intake: unknown Patient Tobacco Use Status: Former Tobacco user Quit Date: 1999 Tobacco use type: Cigarette Cigarette Packs Per Day: 20 Cigarettes Per Day: 400.0 Years Smoked: 20 e-Cigarette/Vaping Use: Never Used Second Hand Smoke Exposure: No Use of substances other than those prescribed or required for medical reasons: Unable to respond Substance Use Type: Unknown Currently Displaying Signs/Symptoms of Drug Intoxication Withdrawal: No Advance Directives: Yes Advance Directives on File: Yes Advance Directives Date on File: 01/07/23 Recently lost weight without trying: Unsure Patient : No service: No Current occupational status: disabled Meds Allergies Allergy/AdvReac Type Severity Reaction Status Date / Time latex Allergy Unknown Unknown Verified 10/21/22 13:48 adhesive tape AdvReac Unknown Unknown Verified 10/21/22 13:48 bupropion [From Wellbutrin] AdvReac Unknown Unknown Verified 10/21/22 13:48 ibuprofen AdvReac Unknown Unknown Verified 10/21/22 13:48 Active Medications: Current Medications Acetaminophen (Acetaminophen 325 Mg Tablet) 650 mg PO Q6H PRN PRN Reason: Pain, Mild (Pain Scale 1-3) Acetazolamide (Acetazolamide 250 Mg Tablet) 500 mg PO BID [facility] Last Admin: 01/12/23 21:14 Dose: Not Given Albuterol/Ipratropium (Albuterol/Iprat 2.5/0.5mg 3 Ml Ampul.Neb) 3 ml INHALE RTID [facility] Last Admin: 01/13/23 07:40 Dose: 3 ml Amlodipine Besylate (Amlodipine Besylate 5 Mg Tablet) 5 mg PO DAILY [facility]; Protocol Aripiprazole (Aripiprazole 2 Mg Tablet) 2 mg PO DAILY [facility] Aspirin (Aspirin 81 Mg Tab.Chew) 81 mg PO DAILY [facility] Atorvastatin Calcium (Atorvastatin Calcium 80 Mg Tablet) 80 mg PO BEDTIME [facility] Last Admin: 01/12/23 21:14 Dose: Not Given Bisacodyl (Bisacodyl 10 Mg Supp.Rect) 10 mg OH DAILY PRN PRN Reason: Constipation Bupropion HCl (Bupropion Hcl Xl 150 Mg Tab.Er.24h) 150 mg PO DAILY [facility] Bupropion HCl (Bupropion Hcl Xl 300 Mg Tab.Er.24h) 300 mg PO DAILY [facility] Enoxaparin Sodium (Enoxaparin Sodium 40 Mg/0.4 Ml Syringe) 40 mg SUBCUT Q24H [facility] Last Admin: 01/12/23 21:39 Dose: 40 mg Ferrous Sulfate (Ferrous Sulfate 324 Mg Tablet.Dr) 324 mg PO DAILY [facility] Furosemide (Furosemide 40 Mg/4 Ml Vial) 40 mg IVPUSH BID@0900,1800 [facility]; Protocol Gabapentin (Gabapentin 300 Mg Capsule) 300 mg PO DAILY@1200 [facility] Gabapentin (Gabapentin 300 Mg Capsule) 600 mg PO BID [facility] Last Admin: 01/12/23 21:14 Dose: Not Given Glucose (Glucose Gel 15 Gm Gel..Gram.) 15 gm PO Q15M PRN; Protocol PRN Reason: per Hypoglycemia Standing Ord. Dextrose (D10) 250 mls @ 250 mls/hr IV Q15M PRN PRN Reason: per Hypoglycemia Standing Ord. Dextrose (D10) 250 mls @ 750 mls/hr IV Q15M PRN; Protocol PRN Reason: per Hypoglycemia Standing Ord. Insulin Glargine (Insulin Glargine,Hum.Rec.Anlog 100 Unit/Ml 10 Ml Vial) 40 unit SUBCUT DAILY [facility] Insulin Human Lispro (Insulin Lispro 100 Unit/Ml 3 Ml Vial) 0 unit SUBCUT QIDACHS [facility]; Protocol Last Admin: 01/13/23 08:04 Dose: Not Given Magnesium Hydroxide (Milk Of Magnesia 30 Ml Oral.Susp) 30 ml PO DAILY PRN PRN Reason: Constipation Megestrol Acetate (Megestrol Acetate 400 Mg/10 Ml Oral.Susp) 400 mg PO TID [facility] Last Admin: 01/12/23 21:14 Dose: Not Given Melatonin (Melatonin 3 Mg Tablet) 3 mg PO BEDTIME [facility] Last Admin: 01/12/23 21:14 Dose: Not Given Non-Formulary Medication (Fluticasone Propion-Salmeterol [Airduo Respiclick]) 1 inhalation INHALE BID [facility] Last Admin: 01/12/23 20:41 Dose: Not Given Non-Formulary Medication (Semaglutide [Ozempic]) 0.25 mg SUBCUT WE [facility] Ondansetron HCl (Ondansetron Hcl 4 Mg/2 Ml Vial) 4 mg IVPUSH Q8H PRN PRN Reason: Nausea and Vomiting Pharmacy Consult (Consult Rx Perform Med Rec) 1 each MISCELLANE ONCE PRN PRN Reason: Consult order Polyethylene Glycol (Polyethylene Glycol 3350 17 Gm Powd.Pack) 17 gm PO DAILY PRN PRN Reason: Constipation Senna (Sennosides 8.6 Mg Tablet) 17.2 mg PO DAILY PRN PRN Reason: Constipation Sertraline HCl (Sertraline Hcl 100 Mg Tablet) 200 mg PO DAILY [facility] Sodium Biphosphate/Sodium Phosphate (Sodium Phosphate,Dickenson-Dibasic 133 Ml Enema) 118 ml [place] DAILY PRN PRN Reason: Constipation Sodium Chloride (0.9 % Sodium Chloride Flush 3 Ml Syringe) [facility] Admin: 01/12/23 22:38 Dose: 3 ml Tizanidine HCl (Tizanidine Hcl 4 Mg Tablet) 4 mg PO BEDTIME PRN PRN Reason: Muscle Spasm Home Medications Medication Instructions Recorded Confirmed Last Taken Type acetaminophen 325 mg tablet 650 mg PO Q4H PRN Fever Or Pain 11/18/21 01/12/23 Unknown History atorvastatin 80 mg tablet 80 mg PO BEDTIME 11/18/21 01/12/23 Unknown History enalapril maleate 20 mg tablet 20 mg PO DAILY 11/18/21 01/12/23 Unknown History ferrous sulfate 325 mg (65 mg 325 mg PO DAILY 11/18/21 01/12/23 Unknown History iron) tablet gabapentin 300 mg capsule 300 mg PO DAILY@1200 11/18/21 01/12/23 Unknown History gabapentin 300 mg capsule 600 mg PO BID 11/18/21 01/12/23 Unknown History insulin lispro 100 unit/mL See Protocol subcut QIDACHS 11/18/21 01/12/23 Unknown History subcutaneous pen melatonin 3 mg tablet 3 mg PO BEDTIME 11/18/21 01/12/23 Unknown History polyethylene glycol 3350 17 gram 17 g PO DAILY PRN Constipation 11/18/21 01/12/23 Unknown History oral powder packet (Miralax) sennosides 8.6 mg tablet (senna) 17.2 mg PO DAILY PRN Constipation 11/18/21 01/12/23 Unknown History sertraline 100 mg tablet 200 mg PO DAILY 11/18/21 01/12/23 Unknown History tizanidine 4 mg tablet 4 mg PO BEDTIME PRN Muscle Spasm 11/18/21 01/12/23 Unknown History aspirin 81 mg chewable tablet 81 mg PO DAILY 01/05/22 01/12/23 Unknown History megestrol 400 mg/10 mL (10 mL) 400 mg PO TID 01/05/22 01/12/23 Unknown History oral suspension bupropion HCl 300 mg 24 hr tablet, 300 mg PO DAILY 04/09/22 01/12/23 Unknown History extended release insulin lispro 100 unit/mL 5 unit subcut TIDAC 04/09/22 01/12/23 Unknown History subcutaneous solution Lactobacillus rhamnosus GG 10 1 cap PO BID 10/09/22 01/12/23 Unknown History billion cell capsule (Culturelle) bupropion HCl 150 mg 24 hr tablet, 1 tab PO DAILY 10/09/22 01/12/23 Unknown History extended release ipratropium 0.5 mg-albuterol 3 mg 3 ml inhalation TID 10/09/22 01/12/23 Unknown History (2.5 mg base)/3 mL nebulization soln potassium chloride 10 mEq 10 meq PO DAILY 10/09/22 01/12/23 Unknown History tablet,extended release bisacodyl 10 mg rectal suppository 10 mg OH DAILY PRN Constipation 10/21/22 01/12/23 Unknown History magnesium citrate (Citrate of 150 ml PO DAILY PRN Constipation 10/21/22 01/12/23 Unknown History Magnesia oral) fluticasone 113 mcg-salmeterol 14 1 inh inhalation BID 11/09/22 01/12/23 Unknown History mcg/actuation breath activated powdr (AirDuo RespiClick) insulin glargine 100 unit/mL 57 unit subcut DAILY 11/09/22 01/12/23 Unknown History subcutaneous solution magnesium hydroxide 400 mg/5 mL 30 ml PO DAILY PRN Constipation 11/09/22 01/12/23 Unknown History oral suspension (Milk of Magnesia) sodium phosphates 19 gram-7 118 ml OH DAILY PRN Constipation 11/09/22 01/12/23 Unknown History gram/118 mL enema (Fleet Enema) metformin 500 mg tablet 500 mg PO BID 12/27/22 01/12/23 Unknown History semaglutide 0.25 mg or 0.5 mg (2 0.25 mg subcut WE 12/27/22 01/12/23 Unknown History mg/3 mL) subcutaneous pen injector (Ozempic) aripiprazole 2 mg tablet 2 mg PO DAILY 01/12/23 01/12/23 Unknown History Physical Exam Vital Signs: Vital Signs: Last Vital Signs Temp 97.8 F 01/13/23 07:27 Pulse 92 01/13/23 07:40 Resp 20 01/13/23 07:40 BP 140/60 H 01/13/23 07:27 Pulse Ox 91 L 01/13/23 08:11 O2 Del Method Oxymask 01/13/23 08:11 O2 Flow Rate 6 01/13/23 08:11 FiO2 24 01/13/23 04:00 BMI result Body Mass Index 65.7 Const: General: cooperative, comfortable, alert, awake and confusion Nutritional Appearance: obese morbidly obese Orientation/consciousness: confusion HEENT: Head: Yes normocephalic and Yes atraumatic Neck: Neck: Yes trachea midline, Yes supple and Yes other (Difficult to evaluate will venous distension) Resp: Effort & Inspection: decreased respiratory effort Auscultation: no rales, wheezes and diminished lung sounds Cardio: Rate: regular rate Rhythm: regular rhythm Heart sounds: S1 normal heart sound present, S2 normal heart sound present, no click, no gallops and no murmurs GI: Auscultation: normal bowel sounds Neuro: General: moves all extremities and confusion Extrem: General: Yes no clubbing, cyanosis or edema Objective Labs and Meds 01/12/23 09:03 01/13/23 06:47 Lab results: Laboratory Results - last 24 hr 01/12/23 01/12/23 01/12/23 09:03 10:15 11:21 VBG pH VBG pCO2 VBG pO2 VBG HCO3 VBG O2 Saturation VBG Base Excess Sodium 140 Potassium 4.4 D Chloride 113 H Carbon Dioxide 21 L Anion Gap 10 L BUN 34 H Creatinine 1.40 Estim Creat Clear Calc 62.3 Estimated GFR 38 POC Glucose Random Glucose 459 H* Calcium 6.7 L D Magnesium Urine Color Dark Yellow Urine Appearance Cloudy Urine pH 5.0 Ur Specific [place] 1.025 Urine Protein Trace Urine Glucose (UA) Negative Urine Ketones Trace Urine Blood Negative Urine Nitrite Negative Ur Leukocyte Esterase Moderate (2+) H Urine RBC 3-5 H Urine WBC >50 H Ur Squamous Epith Cells 11-20 Urine Bacteria 2+ Hyaline Casts 6-10 Influenza Type A (PCR) NEGATIVE Influenza Type B (PCR) NEGATIVE RSV RNA Qual (PCR) NEGATIVE SARS-CoV-2 RNA (RT-PCR) NEGATIVE 01/12/23 01/12/23 01/12/23 11:23 16:42 16:42 VBG pH 7.14 L* 7.28 L VBG pCO2 57 46 VBG pO2 54 121 VBG HCO3 20 L 22 VBG O2 Saturation 83.0 99.0 VBG Base Excess -9.0 -4.4 Sodium 144 Potassium 6.4 H* D Chloride 109 H Carbon Dioxide 26 Anion Gap 15 BUN 45 H Creatinine 1.88 H Estim Creat Clear Calc 46.3 Estimated GFR 27 POC Glucose Random Glucose 293 H Calcium 9.1 D Magnesium Urine Color Urine Appearance Urine pH Ur Specific [place] Urine Protein Urine Glucose (UA) Urine Ketones Urine Blood Urine Nitrite Ur Leukocyte Esterase Urine RBC Urine WBC Ur Squamous Epith Cells Urine Bacteria Hyaline Casts Influenza Type A (PCR) Influenza Type B (PCR) RSV RNA Qual (PCR) SARS-CoV-2 RNA (RT-PCR) 01/12/23 01/12/23 01/12/23 18:16 18:17 20:35 VBG pH 7.24 L 7.21 L VBG pCO2 55 62 VBG pO2 52 61 VBG HCO3 24 25 VBG O2 Saturation 83.0 88.0 VBG Base Excess -3.7 -3.1 Sodium 144 Potassium 5.7 H Chloride 109 H Carbon Dioxide 25 Anion Gap 16 BUN 45 H Creatinine 1.84 H Estim Creat Clear Calc 47.3 Estimated GFR 28 POC Glucose Random Glucose 263 H Calcium 9.4 Magnesium Urine Color Urine Appearance Urine pH Ur Specific [place] Urine Protein Urine Glucose (UA) Urine Ketones Urine Blood Urine Nitrite Ur Leukocyte Esterase Urine RBC Urine WBC Ur Squamous Epith Cells Urine Bacteria Hyaline Casts Influenza Type A (PCR) Influenza Type B (PCR) RSV RNA Qual (PCR) SARS-CoV-2 RNA (RT-PCR) 01/12/23 01/12/23 01/13/23 21:22 22:31 06:47 VBG pH VBG pCO2 VBG pO2 VBG HCO3 VBG O2 Saturation VBG Base Excess Sodium 144 Potassium 5.4 H Chloride 110 H Carbon Dioxide 24 Anion Gap 15 BUN 47 H Creatinine 1.57 H Estim Creat Clear Calc 57.2 Estimated GFR 33 POC Glucose 223 H 233 H Random Glucose 191 H Calcium 8.9 Magnesium 2.1 Urine Color Urine Appearance Urine pH Ur Specific [place] Urine Protein Urine Glucose (UA) Urine Ketones Urine Blood Urine Nitrite Ur Leukocyte Esterase Urine RBC Urine WBC Ur Squamous Epith Cells Urine Bacteria Hyaline Casts Influenza Type A (PCR) Influenza Type B (PCR) RSV RNA Qual (PCR) SARS-CoV-2 RNA (RT-PCR) 01/13/23 01/13/23 06:52 07:26 VBG pH 7.31 L VBG pCO2 51 VBG pO2 48 VBG HCO3 26 VBG O2 Saturation 78.0 VBG Base Excess -0.2 Sodium Potassium Chloride Carbon Dioxide Anion Gap BUN Creatinine Estim Creat Clear Calc Estimated GFR POC Glucose 171 H Random Glucose Calcium Magnesium Urine Color Urine Appearance Urine pH Ur Specific [place] Urine Protein Urine Glucose (UA) Urine Ketones Urine Blood Urine Nitrite Ur Leukocyte Esterase Urine RBC Urine WBC Ur Squamous Epith Cells Urine Bacteria Hyaline Casts Influenza Type A (PCR) Influenza Type B (PCR) RSV RNA Qual (PCR) SARS-CoV-2 RNA (RT-PCR) Imaging Radiologist's impression: Impressions Chest X-Ray 01/12/23 10:20 IMPRESSION: * Congestive heart failure. * Mild interstitial opacification possibly mild interstitial edema. * Small left pleural effusion obscuring the left hemidiaphragm. * Widened mediastinum exaggerated by AP technique. Assessment and Plan (1) Acute and chronic respiratory failure: Status: Acute Acute on chronic respiratory failure in this middle-aged woman who presents with altered mental status with only radiographic evidence suggestive of possible congestive heart failure. Since then she has been diuresed, although appears that her balance is on the positive side. I am not sure that she is showing any signs of florid congestive heart failure, it appears to be more related to pulmonary parenchymal disease and/or obesity hypoventilation syndrome. She does have significant hypercapnia. She also does not seem to be in significant fluid overload status at this point in time. I would switch her to oral diuretics and consider adding 1 of the neurohormonal modulator such as Aldactone and/or Jardiance given her prior history of heart failure preserved ejection fraction. Continue supportive care. Overall risk for readmission is high given her ove rall health status. Will sign of the case at this point in time. Thank you for allowing me to part kerry in the care Time Spent With Patient Time: Total time managing care of this patient today ____ minutes. Procedures Date of Service Date of Service: 01/13/23
[2023-01-13] MEDS: Insulin Glargine,Hum.rec.anlog 100 UNIT/ML 10 ML VIAL 40 UNIT SUBCUT (10:24)
[2023-01-13] MEDS: acetaZOLAMIDE 250 MG TABLET 500 MG PO (10:24)
[2023-01-13] MEDS: Furosemide 40 MG/4 ML VIAL IVPUSH (10:25)
[2023-01-13] MEDS: Sodium Zirconium Cyclosilicate 10 GM POWD.PACK PO (10:25)
[2023-01-13] MEDS: 0.9 % Sodium Chloride Flush 3 ML SYRINGE IVFLUSH ×2 (10:25→18:26)
[2023-01-13 11:27] LABS: Glucose, Whole Blood 188 mg/dL (60-115)
--- NOTE | 2023-01-13 11:30 | MHC.CLN ---
PT WITH INCREASED NUTRITION RISK R/T PRESSURE INJURY PT IS CURRENTLY NPO WHEN DIET TO ADVANCE; RECOMMEND ADDING INCREASED PO PROTEIN SUCH ENSURE MAX BID SUPP TO PROVIDE 300KCALS, 60G PROTEIN FOLLOWING FOR DIET ADVANCEMENT SEE ALSO FULL CLINICAL NUTRITION ASSESSMENT
--- NOTE | 2023-01-13 11:54 | P.PNIM_ITS ---
Subjective Subjective Date of Service: 01/13/23 Interval History: Seen and evaluated this morning Feels much better with overall improvement in respiratory status No fever or chills Tolerating BiPAP No other overnight events Review of Systems Review of Systems: Yes all other systems are reviewed and are negative Physical Exam Vital Signs: Vital Signs: Last Vital Signs Temp 97.8 F 01/13/23 07:27 Pulse 92 01/13/23 07:40 Resp 20 01/13/23 07:40 BP 140/60 H 01/13/23 07:27 Pulse Ox 91 L 01/13/23 08:11 O2 Del Method Oxymask 01/13/23 08:11 O2 Flow Rate 6 01/13/23 08:11 FiO2 24 01/13/23 04:00 BMI result Body Mass Index 65.8 Appearing in no acute distress lung sounds are clear to auscultation heart regular rate rhythm, clear S1, S2 positive bowel sounds, abdomen is soft, nontender neuro patient is alert x3, no focal deficits Objective Data Active Medications Acetaminophen (Acetaminophen 325 Mg Tablet) 650 mg PO Q6H PRN PRN Reason: Pain, Mild (Pain Scale 1-3) Acetazolamide (Acetazolamide 250 Mg Tablet) 500 mg PO BID [facility] Last Admin: 01/13/23 10:24 Dose: 500 mg Documented By: ROBIN Albuterol/Ipratropium (Albuterol/Iprat 2.5/0.5mg 3 Ml Ampul.Neb) 3 ml INHALE RTID [facility] Last Admin: 01/13/23 07:40 Dose: 3 ml Documented By: ROYCE Amlodipine Besylate (Amlodipine Besylate 5 Mg Tablet) 5 mg PO DAILY [facility]; Protocol Last Admin: 01/13/23 10:32 Dose: Not Given Documented By: ROBIN Non-Admin Reason: NPO Aripiprazole (Aripiprazole 2 Mg Tablet) 2 mg PO DAILY [facility] Last Admin: 01/13/23 10:32 Dose: Not Given Documented By: ROBIN Non-Admin Reason: NPO Aspirin (Aspirin 81 Mg Tab.Chew) 81 mg PO DAILY [facility] Last Admin: 01/13/23 10:32 Dose: Not Given Documented By: ROBIN Non-Admin Reason: NPO Atorvastatin Calcium (Atorvastatin Calcium 80 Mg Tablet) 80 mg PO BEDTIME [facility] Last Admin: 01/12/23 21:14 Dose: Not Given Documented By: LUCINA Non-Admin Reason: NPO Bisacodyl (Bisacodyl 10 Mg Supp.Rect) 10 mg GA DAILY PRN PRN Reason: Constipation Bupropion HCl (Bupropion Hcl Xl 150 Mg Tab.Er.24h) 150 mg PO DAILY [facility] Last Admin: 01/13/23 10:32 Dose: Not Given Documented By: ROBIN Non-Admin Reason: NPO Bupropion HCl (Bupropion Hcl Xl 300 Mg Tab.Er.24h) 300 mg PO DAILY [facility] Last Admin: 01/13/23 10:33 Dose: Not Given Documented By: ROBIN Non-Admin Reason: NPO Empagliflozin (Empagliflozin 10 Mg Tablet) 10 mg PO DAILY [facility] Enoxaparin Sodium (Enoxaparin Sodium 40 Mg/0.4 Ml Syringe) 40 mg SUBCUT Q24H [facility] Last Admin: 01/12/23 21:39 Dose: 40 mg Documented By: LUCINA Ferrous Sulfate (Ferrous Sulfate 324 Mg Tablet.Dr) 324 mg PO DAILY [facility] Last Admin: 01/13/23 10:33 Dose: Not Given Documented By: ROBIN Non-Admin Reason: NPO Furosemide (Furosemide 40 Mg Tablet) 40 mg PO DAILY [facility]; Protocol Gabapentin (Gabapentin 300 Mg Capsule) 300 mg PO DAILY@1200 [facility] Gabapentin (Gabapentin 300 Mg Capsule) 600 mg PO BID [facility] Last Admin: 01/13/23 10:33 Dose: Not Given Documented By: ROBIN Non-Admin Reason: NPO Glucose (Glucose Gel 15 Gm Gel..Gram.) 15 gm PO Q15M PRN; Protocol PRN Reason: per Hypoglycemia Standing Ord. Dextrose (D10) 250 mls @ 250 mls/hr IV Q15M PRN PRN Reason: per Hypoglycemia Standing Ord. Dextrose (D10) 250 mls @ 750 mls/hr IV Q15M PRN; Protocol PRN Reason: per Hypoglycemia Standing Ord. Insulin Glargine (Insulin Glargine,Hum.Rec.Anlog 100 Unit/Ml 10 Ml Vial) 40 unit SUBCUT DAILY [facility] Last Admin: 01/13/23 10:24 Dose: 40 unit Documented By: ROBIN Insulin Human Lispro (Insulin Lispro 100 Unit/Ml 3 Ml Vial) 0 unit SUBCUT QIDA [facility]; Protocol Last Admin: 01/13/23 11:36 Dose: Not Given Documented By: ROBIN Non-Admin Reason: No Insulin Coverage Magnesium Hydroxide (Milk Of Magnesia 30 Ml Oral.Susp) 30 ml PO DAILY PRN PRN Reason: Constipation Megestrol Acetate (Megestrol Acetate 400 Mg/10 Ml Oral.Susp) 400 mg PO TID [facility] Last Admin: 01/13/23 10:33 Dose: Not Given Documented By: ROBIN Non-Admin Reason: NPO Melatonin (Melatonin 3 Mg Tablet) 3 mg PO BEDTIME [facility] Last Admin: 01/12/23 21:14 Dose: Not Given Documented By: LUCINA Non-Admin Reason: NPO Non-Formulary Medication (Fluticasone Propion-Salmeterol [Airduo Respiclick]) 1 inhalation INHALE BID [facility] Last Admin: 01/12/23 20:41 Dose: Not Given Documented By: CAROLYNN Non-Admin Reason: Med Not Available Non-Formulary Medication (Semaglutide [Ozempic]) 0.25 mg SUBCUT [facility] Ondansetron HCl (Ondansetron Hcl 4 Mg/2 Ml Vial) 4 mg IVPUSH Q8H PRN PRN Reason: Nausea and Vomiting Pharmacy Consult (Consult Rx Perform Med Rec) 1 each MISCELLANE ONCE PRN PRN Reason: Consult order Polyethylene Glycol (Polyethylene Glycol 3350 17 Gm Powd.Pack) 17 gm PO DAILY PRN PRN Reason: Constipation Senna (Sennosides 8.6 Mg Tablet) 17.2 mg PO DAILY PRN PRN Reason: Constipation Sertraline HCl (Sertraline Hcl 100 Mg Tablet) 200 mg PO DAILY [facility] Last Admin: 01/13/23 10:33 Dose: Not Given Documented By: ROBIN Non-Admin Reason: NPO Sodium Biphosphate/Sodium Phosphate (Sodium Phosphate,[place]-Dibasic 133 Ml Enema) 118 ml GA DAILY PRN PRN Reason: Constipation Sodium Chloride (0.9 % Sodium Chloride Flush 3 Ml Syringe) 3 ml IVFLUSH QSHIFT [facility] Last Admin: 01/13/23 10:25 Dose: 3 ml Documented By: ROBIN Tizanidine HCl (Tizanidine Hcl 4 Mg Tablet) 4 mg PO BEDTIME PRN PRN Reason: Muscle Spasm Labs 01/12/23 09:03 01/13/23 06:47 Labs: Laboratory Results - last 24 hr 01/12/23 01/12/23 01/12/23 09:03 11:21 16:42 VBG pH VBG pCO2 VBG pO2 VBG HCO3 VBG O2 Saturation VBG Base Excess Anion Gap 10 L 15 Estim Creat Clear Calc 62.3 46.3 Estimated GFR 38 27 POC Glucose Random Glucose 459 H* 293 H Calcium 6.7 L D 9.1 D Magnesium Influenza Type A (PCR) NEGATIVE Influenza Type B (PCR) NEGATIVE RSV RNA Qual (PCR) NEGATIVE SARS-CoV-2 RNA (RT-PCR) NEGATIVE 01/12/23 01/12/23 01/12/23 16:42 18:16 18:17 VBG pH 7.28 L 7.24 L VBG pCO2 46 55 VBG pO2 121 52 VBG HCO3 22 24 VBG O2 Saturation 99.0 83.0 VBG Base Excess -4.4 -3.7 Anion Gap 16 Estim Creat Clear Calc 47.3 Estimated GFR 28 POC Glucose Random Glucose 263 H Calcium 9.4 Magnesium Influenza Type A (PCR) Influenza Type B (PCR) RSV RNA Qual (PCR) SARS-CoV-2 RNA (RT-PCR) 01/12/23 01/12/23 01/12/23 20:35 21:22 22:31 VBG pH 7.21 L VBG pCO2 62 VBG pO2 61 VBG HCO3 25 VBG O2 Saturation 88.0 VBG Base Excess -3.1 Anion Gap Estim Creat Clear Calc Estimated GFR POC Glucose 223 H 233 H Random Glucose Calcium Magnesium Influenza Type A (PCR) Influenza Type B (PCR) RSV RNA Qual (PCR) SARS-CoV-2 RNA (RT-PCR) 01/13/23 01/13/23 01/13/23 06:47 06:52 07:26 VBG pH 7.31 L VBG pCO2 51 VBG pO2 48 VBG HCO3 26 VBG O2 Saturation 78.0 VBG Base Excess -0.2 Anion Gap 15 Estim Creat Clear Calc 57.2 Estimated GFR 33 POC Glucose 171 H Random Glucose 191 H Calcium 8.9 Magnesium 2.1 Influenza Type A (PCR) Influenza Type B (PCR) RSV RNA Qual (PCR) SARS-CoV-2 RNA (RT-PCR) 01/13/23 11:12 VBG pH VBG pCO2 VBG pO2 VBG HCO3 VBG O2 Saturation VBG Base Excess Anion Gap Estim Creat Clear Calc Estimated GFR POC Glucose 188 H Random Glucose Calcium Magnesium Influenza Type A (PCR) Influenza Type B (PCR) RSV RNA Qual (PCR) SARS-CoV-2 RNA (RT-PCR) Microbiology Microbiology Results: Microbiology 01/12/23 09:03 Blood Culture - Preliminary Blood - Venous No growth after 24 hours. 01/12/23 Unknown Urine Culture - Preliminary Urine clean catch - Urine schmitt top Culture in progress. 01/12/23 09:03 Blood Culture - Preliminary Blood - Venous Prelim: GPC Gram Stain only Assessment and Plan (1) Acute and chronic respiratory failure: Status: Acute Plan Pt is a 62-year-old female with a PMH significant for?COPD on 4-6L home O2, respiratory failure with hypercapnia, obesity hypoventilation syndrome, insulin- dependent diabetes, HTN, HLD, HFpEF,?Heart block AV third degree,?dual chamber pacemaker, decubitus ulcer, morbid obesity, and ESBL UTI who presents to the ED from SNF with altered mental status and increased lethargy since yesterday. Pt will be admitted to the hospital for acute on chronic hypoxic hypercapnic r espiratory failure in the setting of CHF exacerbation. GPC bacteremia 1/2 follow final cx Acute on chronic hypoxic/hypercarbic respiratory failure Likely secondary to acute HFpEF exacerbation Patient initially placed on BiPAP in the in the ED with improved mentation and breathing Patient on home BiPAP at night, 5-7 L NC otherwise Continue Oxymask for now, wean as tolerated BiPAP at bedtime Titrate supplemental O2 between 88 and no more than 93% Acute HFpEF exacerbation CXR with evidence of CHF, bilateral pitting edema, pleural effusion Furosemide 40 mg IV b.i.d. transitioned back to oral lasix Echocardiogram pending Seen by cardiology> not treating for CHF, likely more related to Pulm issues Monitor on telemetry Altered mental status Likely multifactorial: secondary to hypoxic/hypercarbic respiratory failure, CHF, possible UTI Treat as above BERNIE Patient's creatinine 1.87 at time of presentation, elevated from baseline of 0.90 Treat as above with diuretics Follow BMP Hyperkalemia Patient's potassium 6.8 at time of presentation Given Lokelma today for continued elevation Follow BMP Question of UTI UA negative for nitrates, positive for moderate amount of leukocyte esterase, 3- 5 RBC, >50 WBC, 11-20 epithelial cells, 2+ bacteria Will treat empirically with ceftriaxone Follow cultures Insulin-dependent diabetes type 2 ss, ada diet Essential HTN Hold enalapril due to BERNIE Continue amlodipine HLD Continue statin Morbid obesit. BMI 65.8 Advice weight loss advised d/t impact on above health issues Mood disorder Continue home meds Skin breakdown/sacral decubitus ulcer Patient position every 2 hours Air loss mattress Zinc oxide and foam dressing. DNR/DNI Attending?Dr. valles DVT Prophylaxis: Lovenox continue hospital stay for treatment of?acute on chronic hypoxic hypercapnic respiratory failure in the setting of CHF exacerbation. Time Spent With Patient Time: Total time managing care of this patient today ____ minutes. Quality Stroke Does the patient have a stroke diagnosis?: No VTE Prior VTE?: No VTE Risk Level:: Medical - moderate - high VTE Device Contraindication: Treatment Not Indicated VTE Drug Contraindication: N/A - Med Ordered
[2023-01-13] MEDS: cefTRIAXone sodium 1 GM in 0.9 % Sodium Chloride 50 ML IV (13:56)
[2023-01-13 16:40] LABS: Glucose, Whole Blood 209 mg/dL (60-115)
[2023-01-13] MEDS: Insulin Lispro 100 UNIT/ML 3 ML VIAL SUBCUT ×2 (18:25→21:47)
[2023-01-13 20:51] LABS: Glucose, Whole Blood 171 mg/dL (60-115)
[2023-01-13] MEDS: Enoxaparin Sodium 40 MG/0.4 ML SYRINGE SUBCUT (21:46)
[2023-01-14] VITALS (8 sets, daily range): BP systolic 122–150; BP diastolic 66–84; PULSE 79–95; RESP 17–20; TEMP 35.7–36.1; O2SAT 91–94
[2023-01-14] MEDS: 0.9 % Sodium Chloride Flush 3 ML SYRINGE IVFLUSH ×3 (00:55→18:10)
[2023-01-14] MEDS: Albuterol/Iprat 2.5/0.5MG 3 ML AMPUL.NEB INHALE ×3 (07:39→18:50)
[2023-01-14 08:49] LABS: Anion Gap 12 (12-20); Blood Urea Nitrogen 43 mg/dL (9-16); Calcium 8.9 mg/dL (8.4-10.2); Carbon Dioxide 27 mmol/L (22-29); Chloride 111 mmol/L (96-108); Creatinine Clr Calc Pharmacy 80.9; Estimated Glomerular Filt Rate 50; Glucose Random 155 mg/dL (60-115); Potassium 4.2 mmol/L (3.3-5.1); Sodium 146 mmol/L (135-145)
[2023-01-14] MEDS: Ferrous Sulfate 324 MG TABLET.DR PO (09:50)
[2023-01-14] MEDS: amLODIPine Besylate 5 MG TABLET PO (09:50)
[2023-01-14] MEDS: Gabapentin 300 MG CAPSULE PO ×2 (09:50→10:21)
[2023-01-14] MEDS: buPROPion HCl XL 300 MG TAB.ER.24H PO (09:51)
[2023-01-14] MEDS: ARIPiprazole 2 MG TABLET PO (09:52)
[2023-01-14] MEDS: Insulin Glargine,Hum.rec.anlog 100 UNIT/ML 10 ML VIAL 40 UNIT SUBCUT (09:52)
[2023-01-14] MEDS: Aspirin 81 MG TAB.CHEW PO (09:52)
[2023-01-14] MEDS: buPROPion HCl XL 150 MG TAB.ER.24H PO (09:52)
[2023-01-14] MEDS: Sertraline HCL 100 MG TABLET 200 MG PO (09:52)
[2023-01-14] MEDS: Furosemide 40 MG TABLET PO (09:52)
[2023-01-14] MEDS: Empagliflozin 10 MG TABLET PO (09:52)
[2023-01-14] MEDS: acetaZOLAMIDE 250 MG TABLET 500 MG PO ×2 (09:52→22:12)
[2023-01-14] MEDS: Megestrol Acetate 400 MG/10 ML ORAL.SUSP PO ×3 (09:52→22:13)
[2023-01-14] MEDS: Gabapentin 300 MG CAPSULE 600 MG PO ×2 (10:22→22:13)
[2023-01-14 10:27] LABS: Glucose, Whole Blood 158 mg/dL (60-115)
[2023-01-14] MEDS: Insulin Lispro 100 UNIT/ML 3 ML VIAL SUBCUT ×3 (10:31→18:09)
--- NOTE | 2023-01-14 10:36 | HO.PM.IMPN ---
Subjective Subjective Date of Service: 01/14/23 Interval History: Seen and evaluated this morning Feels much better with overall improvement in respiratory status No fever or chills Tolerating BiPAP No other overnight events Review of Systems Review of Systems: Yes all other systems are reviewed and are negative Physical Exam Vital Signs: Vital Signs: Last Vital Signs Temp 96.9 F 01/14/23 03:34 Pulse 94 01/14/23 07:42 Resp 20 01/14/23 07:42 BP 122/66 01/14/23 03:34 Pulse Ox 92 01/14/23 03:34 O2 Del Method BiPAP 01/14/23 03:34 O2 Flow Rate 5 01/13/23 19:38 FiO2 24 01/13/23 04:00 BMI result Body Mass Index 65.8 Appearing in no acute distress lung sounds are clear to auscultation heart regular rate rhythm, clear S1, S2 positive bowel sounds, abdomen is soft, nontender neuro patient is alert x3, no focal deficits Objective Data Active Medications Acetaminophen (Acetaminophen 325 Mg Tablet) 650 mg PO Q6H PRN PRN Reason: Pain, Mild (Pain Scale 1-3) Acetazolamide (Acetazolamide 250 Mg Tablet) 500 mg PO BID [facility] Last Admin: 01/14/23 09:52 Dose: 500 mg Documented By: VENUS Albuterol/Ipratropium (Albuterol/Iprat 2.5/0.5mg 3 Ml Ampul.Neb) 3 ml INHALE RTID [facility] Last Admin: 01/14/23 07:39 Dose: 3 ml Documented By: ROYCE Amlodipine Besylate (Amlodipine Besylate 5 Mg Tablet) 5 mg PO DAILY [facility]; Protocol Last Admin: 01/14/23 09:50 Dose: 5 mg Documented By: VENUS Aripiprazole (Aripiprazole 2 Mg Tablet) 2 mg PO DAILY [facility] Last Admin: 01/14/23 09:52 Dose: 2 mg Documented By: VENUS Aspirin (Aspirin 81 Mg Tab.Chew) 81 mg PO DAILY [facility] Last Admin: 01/14/23 09:52 Dose: 81 mg Documented By: VENUS Atorvastatin Calcium (Atorvastatin Calcium 80 Mg Tablet) 80 mg PO BEDTIME [facility] Last Admin: 01/13/23 22:49 Dose: Not Given Documented By: SHAN Non-Admin Reason: pt refused, MD aware Bisacodyl (Bisacodyl 10 Mg Supp.Rect) 10 mg [place] DAILY PRN PRN Reason: Constipation Bupropion HCl (Bupropion Hcl Xl 150 Mg Tab.Er.24h) 150 mg PO DAILY [facility] Last Admin: 01/14/23 09:52 Dose: 150 mg Documented By: VENUS Bupropion HCl (Bupropion Hcl Xl 300 Mg Tab.Er.24h) 300 mg PO DAILY [facility] Last Admin: 01/14/23 09:51 Dose: 300 mg Documented By: VENUS Empagliflozin (Empagliflozin 10 Mg Tablet) 10 mg PO DAILY [facility] Last Admin: 01/14/23 09:52 Dose: 10 mg Documented By: VENUS Enoxaparin Sodium (Enoxaparin Sodium 40 Mg/0.4 Ml Syringe) 40 mg SUBCUT Q24H [facility] Last Admin: 01/13/23 21:46 Dose: 40 mg Documented By: SHAN Ferrous Sulfate (Ferrous Sulfate 324 Mg Tablet.Dr) 324 mg PO DAILY [facility] Last Admin: 01/14/23 09:50 Dose: 324 mg Documented By: VENUS Furosemide (Furosemide 40 Mg Tablet) 40 mg PO DAILY [facility]; Protocol Last Admin: 01/14/23 09:52 Dose: 40 mg Documented By: VENUS Gabapentin (Gabapentin 300 Mg Capsule) 300 mg PO DAILY@1200 [facility] Last Admin: 01/14/23 10:21 Dose: 300 mg Documented By: VENUS Gabapentin (Gabapentin 300 Mg Capsule) 600 mg PO BID [facility] Last Admin: 01/14/23 10:22 Dose: 600 mg Documented By: VENUS Glucose (Glucose Gel 15 Gm Gel..Gram.) 15 gm PO Q15M PRN; Protocol PRN Reason: per Hypoglycemia Standing Ord. Dextrose (D10) 250 mls @ 250 mls/hr IV Q15M PRN PRN Reason: per Hypoglycemia Standing Ord. Dextrose (D10) 250 mls @ 750 mls/hr IV Q15M PRN; Protocol PRN Reason: per Hypoglycemia Standing Ord. Ceftriaxone Sodium 1 gm/ (Sodium Chloride) 50 mls @ 100 mls/hr IV Q24H [facility] Last Infusion: 01/13/23 15:21 Dose: 100 mls/hr Documented By: ROBIN Insulin Glargine (Insulin Glargine,Hum.Rec.Anlog 100 Unit/Ml 10 Ml Vial) 40 unit SUBCUT DAILY [facility] Last Admin: 01/14/23 09:52 Dose: 40 unit Documented By: VENUS Insulin Human Lispro (Insulin Lispro 100 Unit/Ml 3 Ml Vial) 0 unit SUBCUT QIDACHS [facility]; Protocol Last Admin: 01/14/23 10:31 Dose: 2 unit Documented By: VENUS Magnesium Hydroxide (Milk Of Magnesia 30 Ml Oral.Susp) 30 ml PO DAILY PRN PRN Reason: Constipation Megestrol Acetate (Megestrol Acetate 400 Mg/10 Ml Oral.Susp) 400 mg PO TID [facility] Last Admin: 01/14/23 09:52 Dose: 400 mg Documented By: VENUS Melatonin (Melatonin 3 Mg Tablet) 3 mg PO BEDTIME [facility] Last Admin: 01/13/23 22:50 Dose: Not Given Documented By: SHAN Non-Admin Reason: pt refused, MD aware Non-Formulary Medication (Fluticasone Propion-Salmeterol [Airduo Respiclick]) 1 inhalation INHALE BID [facility] Last Admin: 01/12/23 20:41 Dose: Not Given Documented By: CAROLYNN Non-Admin Reason: Med Not Available Non-Formulary Medication (Semaglutide [Ozempic]) 0.25 mg SUBCUT [facility] Ondansetron HCl (Ondansetron Hcl 4 Mg/2 Ml Vial) 4 mg IVPUSH Q8H PRN PRN Reason: Nausea and Vomiting Pharmacy Consult (Consult Rx Perform Med Rec) 1 each MISCELLANE ONCE PRN PRN Reason: Consult order Polyethylene Glycol (Polyethylene Glycol 3350 17 Gm Powd.Pack) 17 gm PO DAILY PRN PRN Reason: Constipation Senna (Sennosides 8.6 Mg Tablet) 17.2 mg PO DAILY PRN PRN Reason: Constipation Sertraline HCl (Sertraline Hcl 100 Mg Tablet) 200 mg PO DAILY [facility] Last Admin: 01/14/23 09:52 Dose: 200 mg Documented By: VENUS Sodium Biphosphate/Sodium Phosphate (Sodium Phosphate,[place]-Dibasic 133 Ml Enema) 118 ml [place] DAILY PRN PRN Reason: Constipation Sodium Chloride (0.9 % Sodium Chloride Flush 3 Ml Syringe) 3 ml IVFLUSH QSHIFT [facility] Last Admin: 01/14/23 09:53 Dose: 3 ml Documented By: VENUS Tizanidine HCl (Tizanidine Hcl 4 Mg Tablet) 4 mg PO BEDTIME PRN PRN Reason: Muscle Spasm Labs 01/12/23 09:03 01/14/23 08:00 Labs: Laboratory Results - last 24 hr 01/13/23 01/13/23 01/13/23 11:12 16:25 20:29 Anion Gap Estim Creat Clear Calc Estimated GFR POC Glucose 188 H 209 H 171 H Random Glucose Calcium 01/14/23 01/14/23 08:00 10:22 Anion Gap 12 Estim Creat Clear Calc 80.9 Estimated GFR 50 POC Glucose 158 H Random Glucose 155 H Calcium 8.9 Microbiology Microbiology Results: Microbiology 01/12/23 09:03 Blood Culture - Preliminary Blood - Venous Prelim: GPC Gram Stain only 01/12/23 09:03 Blood Culture - Preliminary Blood - Venous No growth after 24 hours. 01/12/23 Unknown Urine Culture - Preliminary Urine clean catch - Urine schmitt top Culture in progress. Assessment and Plan (1) Acute and chronic respiratory failure: Status: Acute Plan Pt is a 62-year-old female with a PMH significant for?COPD on 4-6L home O2, respiratory failure with hypercapnia, obesity hypoventilation syndrome, insulin-dependent diabetes, HTN, HLD, HFpEF,?Heart block AV third degree,?dual chamber pacemaker, decubitus ulcer, morbid obesity, and ESBL UTI who presents to the ED from SNF with altered mental status and increased lethargy since yesterday. Pt will be admitted to the hospital for acute on chronic hypoxic hypercapnic respiratory failure in the setting of CHF exacerbation. coag neg bacteremia 1/2 Acute on chronic hypoxic/hypercarbic respiratory failure Likely secondary to acute HFpEF exacerbation Patient initially placed on BiPAP in the in the ED with improved mentation and breathing Patient on home BiPAP at night, 5-7 L NC otherwise Continue Oxymask for now, wean as tolerated BiPAP at bedtime Titrate supplemental O2 between 88 and no more than 93% Acute HFpEF exacerbation CXR with evidence of CHF, bilateral pitting edema, pleural effusion Furosemide 40 mg IV b.i.d. transitioned back to oral lasix Echocardiogram pending Seen by cardiology> not treating for CHF, likely more related to Pulm issues Monitor on telemetry Acute metabolic Encephalopathy. Resolving secondary to hypoxic/hypercarbic respiratory failure, CHF, possible UTI Treat as above BERNIE. Trending down Patient's creatinine 1.87 at time of presentation, elevated from baseline of 0.90 Treat as above with diuretics Follow BMP Hyperkalemia. Resolved Patient's potassium 6.8 at time of presentation s/p Given Lokelma today for continued elevation Follow BMP Question of UTI UA negative for nitrates, positive for moderate amount of leukocyte esterase, 3-5 RBC, >50 WBC, 11-20 epithelial cells, 2+ bacteria Will treat empirically with ceftriaxone Follow cultures Insulin-dependent diabetes type 2 ss, ada diet Essential HTN Hold enalapril due to BERNIE Continue amlodipine HLD Continue statin Morbid obesit. BMI 65.8 Advice weight loss advised d/t impact on above health issues Mood disorder Continue home meds Skin breakdown/sacral decubitus ulcer Patient position every 2 hours Air loss mattress Zinc oxide and foam dressing. DNR/DNI Attending?Dr. valles DVT Prophylaxis: Lovenox DISPO PT consult continue hospital stay for treatment of?acute on chronic hypoxic hypercapnic respiratory failure in the setting of CHF exacerbation. Time Spent With Patient Time: Total time managing care of this patient today ____ minutes. Quality Stroke Does the patient have a stroke diagnosis?: No VTE Prior VTE?: No VTE Risk Level:: Medical - moderate - high VTE Device Contraindication: Treatment Not Indicated VTE Drug Contraindication: N/A - Med Ordered
[2023-01-14 12:02] LABS: Glucose, Whole Blood 186 mg/dL (60-115)
[2023-01-14] MEDS: cefTRIAXone sodium 1 GM in 0.9 % Sodium Chloride 50 ML IV (14:18)
[2023-01-14 15:39] LABS: Glucose, Whole Blood 157 mg/dL (60-115)
[2023-01-14 21:00] LABS: Glucose, Whole Blood 125 mg/dL (60-115)
[2023-01-14] MEDS: Melatonin 3 MG TABLET PO (22:12)
[2023-01-14] MEDS: Atorvastatin Calcium 80 MG TABLET PO (22:12)
[2023-01-14] MEDS: Enoxaparin Sodium 40 MG/0.4 ML SYRINGE SUBCUT (22:13)
[2023-01-15] VITALS (8 sets, daily range): BP systolic 134–170; BP diastolic 63–87; PULSE 77–98; RESP 15–23; TEMP 36.2–36.8; O2SAT 90–93
[2023-01-15] MEDS: Albuterol/Iprat 2.5/0.5MG 3 ML AMPUL.NEB INHALE ×3 (07:46→18:47)
[2023-01-15 07:58] LABS: Glucose, Whole Blood 103 mg/dL (60-115)
--- NOTE | 2023-01-15 10:09 | HO.PM.IMPN ---
Subjective Subjective Date of Service: 01/15/23 Interval History: Seen and evaluated this morning Feels much better with overall improvement in respiratory status No fever or chills Tolerating BiPAP No other overnight events Review of Systems Review of Systems: Yes all other systems are reviewed and are negative Physical Exam Vital Signs: Vital Signs: Last Vital Signs Temp 98.2 F 01/15/23 07:36 Pulse 85 01/15/23 07:36 Resp 23 H 01/15/23 07:47 BP 170/87 H 01/15/23 07:36 Pulse Ox 92 01/15/23 07:36 O2 Del Method BiPAP 01/15/23 07:36 O2 Flow Rate 5 01/15/23 03:16 FiO2 24 01/13/23 04:00 BMI result Body Mass Index 65.8 Appearing in no acute distress lung sounds are clear to auscultation heart regular rate rhythm, clear S1, S2 positive bowel sounds, abdomen is soft, nontender neuro patient is alert x3, no focal deficits Objective Data Active Medications Acetaminophen (Acetaminophen 325 Mg Tablet) 650 mg PO Q6H PRN PRN Reason: Pain, Mild (Pain Scale 1-3) Acetazolamide (Acetazolamide 250 Mg Tablet) 500 mg PO BID [facility] Last Admin: 01/14/23 22:12 Dose: 500 mg Documented By: NENITA Albuterol/Ipratropium (Albuterol/Iprat 2.5/0.5mg 3 Ml Ampul.Neb) 3 ml INHALE RTID [facility] Last Admin: 01/15/23 07:46 Dose: 3 ml Documented By: DESHAWN Amlodipine Besylate (Amlodipine Besylate 5 Mg Tablet) 5 mg PO DAILY [facility]; Protocol Last Admin: 01/14/23 09:50 Dose: 5 mg Documented By: VENUS Aripiprazole (Aripiprazole 2 Mg Tablet) 2 mg PO DAILY [facility] Last Admin: 01/14/23 09:52 Dose: 2 mg Documented By: VENUS Aspirin (Aspirin 81 Mg Tab.Chew) 81 mg PO DAILY [facility] Last Admin: 01/14/23 09:52 Dose: 81 mg Documented By: VENUS Atorvastatin Calcium (Atorvastatin Calcium 80 Mg Tablet) 80 mg PO BEDTIME [facility] Last Admin: 01/14/23 22:12 Dose: 80 mg Documented By: NENITA Bisacodyl (Bisacodyl 10 Mg Supp.Rect) 10 mg TN DAILY PRN PRN Reason: Constipation Bupropion HCl (Bupropion Hcl Xl 150 Mg Tab.Er.24h) 150 mg PO DAILY [facility] Last Admin: 01/14/23 09:52 Dose: 150 mg Documented By: VENUS Bupropion HCl (Bupropion Hcl Xl 300 Mg Tab.Er.24h) 300 mg PO DAILY [facility] Last Admin: 01/14/23 09:51 Dose: 300 mg Documented By: VENUS Empagliflozin (Empagliflozin 10 Mg Tablet) 10 mg PO DAILY [facility] Last Admin: 01/14/23 09:52 Dose: 10 mg Documented By: VENUS Enoxaparin Sodium (Enoxaparin Sodium 40 Mg/0.4 Ml Syringe) 40 mg SUBCUT Q24H [facility] Last Admin: 01/14/23 22:13 Dose: 40 mg Documented By: NENITA Ferrous Sulfate (Ferrous Sulfate 324 Mg Tablet.Dr) 324 mg PO DAILY [facility] Last Admin: 01/14/23 09:50 Dose: 324 mg Documented By: VENUS Furosemide (Furosemide 40 Mg Tablet) 40 mg PO DAILY [facility]; Protocol Last Admin: 01/14/23 09:52 Dose: 40 mg Documented By: VENUS Gabapentin (Gabapentin 300 Mg Capsule) 300 mg PO DAILY@1200 [facility] Last Admin: 01/14/23 10:21 Dose: 300 mg Documented By: VENUS Gabapentin (Gabapentin 300 Mg Capsule) 600 mg PO BID [facility] Last Admin: 01/14/23 22:13 Dose: 600 mg Documented By: NENITA Glucose (Glucose Gel 15 Gm Gel..Gram.) 15 gm PO Q15M PRN; Protocol PRN Reason: per Hypoglycemia Standing Ord. Dextrose (D10) 250 mls @ 250 mls/hr IV Q15M PRN PRN Reason: per Hypoglycemia Standing Ord. Dextrose (D10) 250 mls @ 750 mls/hr IV Q15M PRN; Protocol PRN Reason: per Hypoglycemia Standing Ord. Ceftriaxone Sodium 1 gm/ (Sodium Chloride) 50 mls @ 100 mls/hr IV Q24H [facility] Last Infusion: 01/14/23 18:10 Dose: 0 mls/hr Documented By: VENUS Insulin Glargine (Insulin Glargine,Hum.Rec.Anlog 100 Unit/Ml 10 Ml Vial) 40 unit SUBCUT DAILY [facility] Last Admin: 01/14/23 09:52 Dose: 40 unit Documented By: VENUS Insulin Human Lispro (Insulin Lispro 100 Unit/Ml 3 Ml Vial) 0 unit SUBCUT QIDACHS [facility]; Protocol Last Admin: 01/15/23 08:06 Dose: Not Given Documented By: PUJA Non-Admin Reason: No Insulin Coverage Magnesium Hydroxide (Milk Of Magnesia 30 Ml Oral.Susp) 30 ml PO DAILY PRN PRN Reason: Constipation Megestrol Acetate (Megestrol Acetate 400 Mg/10 Ml Oral.Susp) 400 mg PO TID [facility] Last Admin: 01/14/23 22:13 Dose: 400 mg Documented By: NENITA Melatonin (Melatonin 3 Mg Tablet) 3 mg PO BEDTIME [facility] Last Admin: 01/14/23 22:12 Dose: 3 mg Documented By: NENITA Non-Formulary Medication (Fluticasone Propion-Salmeterol [Airduo Respiclick]) 1 inhalation INHALE BID [facility] Last Admin: 01/12/23 20:41 Dose: Not Given Documented By: CAROLYNN Non-Admin Reason: Med Not Available Non-Formulary Medication (Semaglutide [Ozempic]) 0.25 mg SUBCUT [facility] Ondansetron HCl (Ondansetron Hcl 4 Mg/2 Ml Vial) 4 mg IVPUSH Q8H PRN PRN Reason: Nausea and Vomiting Pharmacy Consult (Consult Rx Perform Med Rec) 1 each MISCELLANE ONCE PRN PRN Reason: Consult order Polyethylene Glycol (Polyethylene Glycol 3350 17 Gm Powd.Pack) 17 gm PO DAILY PRN PRN Reason: Constipation Senna (Sennosides 8.6 Mg Tablet) 17.2 mg PO DAILY PRN PRN Reason: Constipation Sertraline HCl (Sertraline Hcl 100 Mg Tablet) 200 mg PO DAILY [facility] Last Admin: 01/14/23 09:52 Dose: 200 mg Documented By: VENUS Sodium Biphosphate/Sodium Phosphate (Sodium Phosphate,[place]-Dibasic 133 Ml Enema) 118 ml TN DAILY PRN PRN Reason: Constipation Sodium Chloride (0.9 % Sodium Chloride Flush 3 Ml Syringe) 3 ml IVFLUSH QSHIFT [facility] Last Admin: 01/15/23 03:32 Dose: Not Given Documented By: NENITA Non-Admin Reason: Previously Administered Tizanidine HCl (Tizanidine Hcl 4 Mg Tablet) 4 mg PO BEDTIME PRN PRN Reason: Muscle Spasm Labs 01/12/23 09:03 01/14/23 08:00 Labs: Laboratory Results - last 24 hr 01/14/23 01/14/23 01/14/23 10:22 11:48 15:09 POC Glucose 158 H 186 H 157 H 01/14/23 01/15/23 19:19 07:38 POC Glucose 125 H 103 Microbiology Microbiology Results: Microbiology 01/12/23 Unknown Urine Culture - Preliminary Urine clean catch - Urine schmitt top Klebsiella pneumoniae 01/12/23 09:03 Blood Culture - Preliminary Blood - Venous No growth after 48 hours. 01/12/23 09:03 Blood Culture - Final Blood - Venous Coag negative Staphylococcus Assessment and Plan (1) Acute and chronic respiratory failure: Status: Acute Plan Pt is a 62-year-old female with a PMH significant for?COPD on 4-6L home O2, respiratory failure with hypercapnia, obesity hypoventilation syndrome, insulin-dependent diabetes, HTN, HLD, HFpEF,?Heart block AV third degree,?dual chamber pacemaker, decubitus ulcer, morbid obesity, and ESBL UTI who presents to the ED from SNF with altered mental status and increased lethargy since yesterday. Pt will be admitted to the hospital for acute on chronic hypoxic hypercapnic respiratory failure in the setting of CHF exacerbation. Klebsiella UTI continue rocephin ID conuslt coag neg bacteremia 1/2 Acute on chronic hypoxic/hypercarbic respiratory failure Likely secondary to acute HFpEF exacerbation Patient initially placed on BiPAP in the in the ED with improved mentation and breathing Patient on home BiPAP at night, 5-7 L NC otherwise Continue Oxymask for now, wean as tolerated BiPAP at bedtime, apparently non compliant at SNF Titrate supplemental O2 between 88 and no more than 93% Acute HFpEF exacerbation CXR with evidence of CHF, bilateral pitting edema, pleural effusion Furosemide 40 mg IV b.i.d. transitioned back to oral lasix Echocardiogram pending Seen by cardiology> not treating for CHF, likely more related to Pulm issues Monitor on telemetry Acute metabolic Encephalopathy. Resolving secondary to hypoxic/hypercarbic respiratory failure, CHF, possible UTI Treat as above BERNIE. Trending down Patient's creatinine 1.87 at time of presentation, elevated from baseline of 0.90 Treat as above with diuretics Follow BMP Hyperkalemia. Resolved Patient's potassium 6.8 at time of presentation s/p Given Lokelma today for continued elevation Follow BMP Insulin-dependent diabetes type 2 ss, ada diet Essential HTN Hold enalapril due to BERNIE Continue amlodipine HLD Continue statin Morbid obesit. BMI 65.8 Advice weight loss advised d/t impact on above health issues Mood disorder Continue home meds Skin breakdown/sacral decubitus ulcer Patient position every 2 hours Air loss mattress Zinc oxide and foam dressing. DNR/DNI Attending?Dr. valles DVT Prophylaxis: [employer] DISPO PT consult continue hospital stay for treatment of?acute on chronic hypoxic hypercapnic respiratory failure in the setting of CHF exacerbation. Time Spent With Patient Time: Total time managing care of this patient today ____ minutes. Quality Stroke Does the patient have a stroke diagnosis?: No VTE Prior VTE?: No VTE Risk Level:: Medical - moderate - high VTE Device Contraindication: Treatment Not Indicated VTE Drug Contraindication: N/A - Med Ordered
--- NOTE | 2023-01-15 10:20 | MHC.CM.PN ---
Per ROUNDS discussion, Patient's O2 is still being delivered via Bipap r/t desatting. Goal is to return to [facility] and CM will continue to follow.
--- NOTE | 2023-01-15 10:50 | MHC.CLN ---
F/U PT IS DAY 3 NPO R/T BIPAP WHEN DIET TO ADVANCE; RECOMMEND 1800DM 2GM NA DIET WITH 11OZ ENSURE MAX SUPPLEMENT BID TO PROMOTE WOUND HEALING SUPP TO PROVIDE 300KCALS, 60G PROTEIN WITH 100% ACCEPTANCE FOLLOWING FOR DIET ADVANCEMENT
[2023-01-15 11:19] LABS: Glucose, Whole Blood 103 mg/dL (60-115)
[2023-01-15 12:14] LABS: Anion Gap 13 (12-20); Blood Urea Nitrogen 43 mg/dL (9-16); Calcium 9.1 mg/dL (8.4-10.2); Carbon Dioxide 29 mmol/L (22-29); Chloride 109 mmol/L (96-108); Estimated Glomerular Filt Rate 44; Glucose Random 108 mg/dL (60-115); Potassium 3.9 mmol/L (3.3-5.1); Sodium 147 mmol/L (135-145)
[2023-01-15 12:28] LABS: B Type Natriuretic Peptide 14 pg/mL (<100)
[2023-01-15] MEDS: cefTRIAXone sodium 1 GM in 0.9 % Sodium Chloride 50 ML IV (13:33)
--- NOTE | 2023-01-15 15:50 | P.CNID_ITS ---
History of Present Illness Data of Consult Service Date: 01/15/23 Requesting physician: Belinda Brooks Primary Care Provider: Darlene Bal MD [facility] Reason for consult: Klebsiella recurrent UTI?sepsis She presents with chills and dysuria for a day. She has prior symptoms on 11/20 with ESBL Klebsiella. Urine culture shows Klebsiella again. She has CHF and SMILEY and is in a facility. Review of Systems Review of Systems: Yes all other systems are reviewed and are negative PMFSH Past Medical History Medical History Acute and chronic respiratory failure with hypercapnia Acute and chronic respiratory failure with hypercapnia Acute on chronic respiratory failure with hypoxia and hypercapnia Anemia Arthritis Atelectasis of both lungs CHF (congestive heart failure) Clostridium difficile infection Depression Diabetes mellitus, type 2 Diabetic ulcer of foot associated with diabetes mellitus due to underlying condition, with fat layer exposed Heart block AV third degree Hypertension Hypertrophic nonobstructive cardiomyopathy Hypoventilation associated with obesity syndrome Metabolic encephalopathy Morbid obesity Morbid obesity Morbid obesity Obesity hypoventilation syndrome SMILEY (obstructive sleep apnea) PAD (peripheral artery disease) Presence of permanent cardiac pacemaker Presence of permanent cardiac pacemaker Pressure injury of deep tissue of buttock Pressure ulcer, stage II, skin breakdown Pulmonary embolism Respiratory failure Respiratory failure with hypoxia and hypercapnia Sick sinus syndrome Urinary tract infection due to ESBL Klebsiella Family History Family history: reviewed and not pertinent Surgical History Surgical History History of total knee replacement Social History Social History Household Members: Unknown / Unable to assess Housing: Other Housing Other:: SNF Are you a primary coronary care unit nurse to a significant other at home: No Do you presently have visiting nurse or other home services: No Unable to assess alcohol history related to: Unable to respond Alcohol intake: unknown Patient Tobacco Use Status: Former Tobacco user Quit Date: 1999 Tobacco use type: Cigarette Cigarette Packs Per Day: 20 Cigarettes Per Day: 400.0 Years Smoked: 20 e-Cigarette/Vaping Use: Never Used Second Hand Smoke Exposure: No Use of substances other than those prescribed or required for medical reasons: Unable to respond Substance Use Type: Unknown Currently Displaying Signs/Symptoms of Drug Intoxication Withdrawal: No Advance Directives: Yes Advance Directives on File: Yes Advance Directives Date on File: 01/07/23 Recently lost weight without trying: Unsure Patient : No service: No Current occupational status: disabled Meds Allergies Allergy/AdvReac Type Severity Reaction Status Date / Time latex Allergy Unknown Unknown Verified 10/21/22 13:48 adhesive tape AdvReac Unknown Unknown Verified 10/21/22 13:48 bupropion [From Wellbutrin] AdvReac Unknown Unknown Verified 10/21/22 13:48 ibuprofen AdvReac Unknown Unknown Verified 10/21/22 13:48 Active Medications: Current Medications Acetaminophen (Acetaminophen 325 Mg Tablet) 650 mg PO Q6H PRN PRN Reason: Pain, Mild (Pain Scale 1-3) Acetazolamide (Acetazolamide 250 Mg Tablet) 500 mg PO BID [facility] Last Admin: 01/15/23 11:01 Dose: Not Given Albuterol/Ipratropium (Albuterol/Iprat 2.5/0.5mg 3 Ml Ampul.Neb) 3 ml INHALE RTID [facility] Last Admin: 01/15/23 14:41 Dose: 3 ml Amlodipine Besylate (Amlodipine Besylate 5 Mg Tablet) 5 mg PO DAILY [facility]; Protocol Last Admin: 01/15/23 11:11 Dose: Not Given Aripiprazole (Aripiprazole 2 Mg Tablet) 2 mg PO DAILY [facility] Last Admin: 01/15/23 11:11 Dose: Not Given Aspirin (Aspirin 81 Mg Tab.Chew) 81 mg PO DAILY [facility] Last Admin: 01/15/23 11:11 Dose: Not Given Atorvastatin Calcium (Atorvastatin Calcium 80 Mg Tablet) 80 mg PO BEDTIME [facility] Last Admin: 01/14/23 22:12 Dose: 80 mg Bisacodyl (Bisacodyl 10 Mg Supp.Rect) 10 mg DC DAILY PRN PRN Reason: Constipation Bupropion HCl (Bupropion Hcl Xl 150 Mg Tab.Er.24h) 150 mg PO DAILY [facility] Last Admin: 01/15/23 11:11 Dose: Not Given Bupropion HCl (Bupropion Hcl Xl 300 Mg Tab.Er.24h) 300 mg PO DAILY [facility] Last Admin: 01/15/23 11:12 Dose: Not Given Empagliflozin (Empagliflozin 10 Mg Tablet) 10 mg PO DAILY [facility] Last Admin: 01/15/23 11:12 Dose: Not Given Enoxaparin Sodium (Enoxaparin Sodium 40 Mg/0.4 Ml Syringe) 40 mg SUBCUT Q24H [facility] Last Admin: 01/14/23 22:13 Dose: 40 mg Ferrous Sulfate (Ferrous Sulfate 324 Mg Tablet.Dr) 324 mg PO DAILY [facility] Last Admin: 01/15/23 11:12 Dose: Not Given Furosemide (Furosemide 40 Mg Tablet) 40 mg PO DAILY [facility]; Protocol Last Admin: 01/15/23 11:12 Dose: Not Given Gabapentin (Gabapentin 300 Mg Capsule) 300 mg PO DAILY@1200 [facility] Last Admin: 01/14/23 10:21 Dose: 300 mg Gabapentin (Gabapentin 300 Mg Capsule) 600 mg PO BID [facility] Last Admin: 01/15/23 11:12 Dose: Not Given Glucose (Glucose Gel 15 Gm Gel..Gram.) 15 gm PO Q15M PRN; Protocol PRN Reason: per Hypoglycemia Standing Ord. Dextrose (D10) 250 mls @ 250 mls/hr IV Q15M PRN PRN Reason: per Hypoglycemia Standing Ord. Dextrose (D10) 250 mls @ 750 mls/hr IV Q15M PRN; Protocol PRN Reason: per Hypoglycemia Standing Ord. Meropenem 1 gm/ Sodium (Chloride) 100 mls @ 200 mls/hr IV Q12H [facility] Insulin Glargine (Insulin Glargine,Hum.Rec.Anlog 100 Unit/Ml 10 Ml Vial) 40 unit SUBCUT DAILY [facility] Last Admin: 01/15/23 11:12 Dose: Not Given Insulin Human Lispro (Insulin Lispro 100 Unit/Ml 3 Ml Vial) 0 unit SUBCUT QIDACHS [facility]; Protocol Last Admin: 01/15/23 13:26 Dose: Not Given Magnesium Hydroxide (Milk Of Magnesia 30 Ml Oral.Susp) 30 ml PO DAILY PRN PRN Reason: Constipation Megestrol Acetate (Megestrol Acetate 400 Mg/10 Ml Oral.Susp) 400 mg PO TID [facility] Last Admin: 01/15/23 11:12 Dose: Not Given Melatonin (Melatonin 3 Mg Tablet) 3 mg PO BEDTIME [facility] Last Admin: 01/14/23 22:12 Dose: 3 mg Non-Formulary Medication (Fluticasone Propion-Salmeterol [Airduo Respiclick]) 1 inhalation INHALE BID [facility] Last Admin: 01/12/23 20:41 Dose: Not Given Non-Formulary Medication (Semaglutide [Ozempic]) 0.25 mg SUBCUT [facility] Ondansetron HCl (Ondansetron Hcl 4 Mg/2 Ml Vial) 4 mg IVPUSH Q8H PRN PRN Reason: Nausea and Vomiting Pharmacy Consult (Consult Rx Perform Med Rec) 1 each MISCELLANE ONCE PRN PRN Reason: Consult order Polyethylene Glycol (Polyethylene Glycol 3350 17 Gm Powd.Pack) 17 gm PO DAILY PRN PRN Reason: Constipation Senna (Sennosides 8.6 Mg Tablet) 17.2 mg PO DAILY PRN PRN Reason: Constipation Sertraline HCl (Sertraline Hcl 100 Mg Tablet) 200 mg PO DAILY [facility] Last Admin: 01/15/23 11:12 Dose: Not Given Sodium Biphosphate/Sodium Phosphate (Sodium Phosphate,[place]-Dibasic 133 Ml Enema) 118 ml DC DAILY PRN PRN Reason: Constipation Sodium Chloride (0.9 % Sodium Chloride Flush 3 Ml Syringe) [facility] Last Admin: 01/15/23 10:58 Dose: Not Given Tizanidine HCl (Tizanidine Hcl 4 Mg Tablet) 4 mg PO BEDTIME PRN PRN Reason: Muscle Spasm Home Medications Medication Instructions Recorded Confirmed Last Taken Type acetaminophen 325 mg tablet 650 mg PO Q4H PRN Fever Or Pain 11/18/21 01/12/23 Unknown History atorvastatin 80 mg tablet 80 mg PO BEDTIME 11/18/21 01/12/23 Unknown History enalapril maleate 20 mg tablet 20 mg PO DAILY 11/18/21 01/12/23 Unknown History ferrous sulfate 325 mg (65 mg 325 mg PO DAILY 11/18/21 01/12/23 Unknown History iron) tablet gabapentin 300 mg capsule 300 mg PO DAILY@1200 11/18/21 01/12/23 Unknown History gabapentin 300 mg capsule 600 mg PO BID 11/18/21 01/12/23 Unknown History insulin lispro 100 unit/mL See Protocol subcut QIDACHS 11/18/21 01/12/23 Unknown History subcutaneous pen melatonin 3 mg tablet 3 mg PO BEDTIME 11/18/21 01/12/23 Unknown History polyethylene glycol 3350 17 gram 17 g PO DAILY PRN Constipation 11/18/21 3 Unknown History oral powder packet (Miralax) sennosides 8.6 mg tablet (senna) 17.2 mg PO DAILY PRN Constipation 11/18/21 01/12/23 Unknown History sertraline 100 mg tablet 200 mg PO DAILY 11/18/21 01/12/23 Unknown History tizanidine 4 mg tablet 4 mg PO BEDTIME PRN Muscle Spasm 11/18/21 01/12/23 Unknown History aspirin 81 mg chewable tablet 81 mg PO DAILY 01/05/22 01/12/23 Unknown History megestrol 400 mg/10 mL (10 mL) 400 mg PO TID 01/05/22 01/12/23 Unknown History oral suspension bupropion HCl 300 mg 24 hr tablet, 300 mg PO DAILY 04/09/22 01/12/23 Unknown History extended release insulin lispro 100 unit/mL 5 unit subcut TIDAC 04/09/22 01/12/23 Unknown History subcutaneous solution Lactobacillus rhamnosus GG 10 1 cap PO BID 10/09/22 01/12/23 Unknown History billion cell capsule (Culturelle) bupropion HCl 150 mg 24 hr tablet, 1 tab PO DAILY 10/09/22 01/12/23 Unknown History extended release ipratropium 0.5 mg-albuterol 3 mg 3 ml inhalation TID 10/09/22 01/12/23 Unknown History (2.5 mg base)/3 mL nebulization soln potassium chloride 10 mEq 10 meq PO DAILY 10/09/22 01/12/23 Unknown History tablet,extended release bisacodyl 10 mg rectal suppository 10 mg DC DAILY PRN Constipation 10/21/22 01/12/23 Unknown History magnesium citrate (Citrate of 150 ml PO DAILY PRN Constipation 10/21/22 01/12/23 Unknown History Magnesia oral) fluticasone 113 mcg-salmeterol 14 1 inh inhalation BID 11/09/22 01/12/23 Unknown History mcg/actuation breath activated powdr (AirDuo RespiClick) insulin glargine 100 unit/mL 57 unit subcut DAILY 11/09/22 01/12/23 Unknown History subcutaneous solution magnesium hydroxide 400 mg/5 mL 30 ml PO DAILY PRN Constipation 11/09/22 01/12/23 Unknown History oral suspension (Milk of Magnesia) sodium phosphates 19 gram-7 118 ml DC DAILY PRN Constipation 11/09/22 01/12/23 Unknown History gram/118 mL enema (Fleet Enema) metformin 500 mg tablet 500 mg PO BID 12/27/22 01/12/23 Unknown History semaglutide 0.25 mg or 0.5 mg (2 0.25 mg subcut WE 12/27/22 01/12/23 Unknown History mg/3 mL) subcutaneous pen injector (Ozempic) aripiprazole 2 mg tablet 2 mg PO DAILY 01/12/23 01/12/23 Unknown History Physical Exam Vital Signs: Vital Signs: Last Vital Signs Temp 97.1 F 01/15/23 15:47 Pulse 87 01/15/23 15:47 Resp 15 01/15/23 15:47 BP 134/71 01/15/23 15:47 Pulse Ox 91 L 01/15/23 15:47 O2 Del Method Nasal Cannula 01/15/23 15:47 O2 Flow Rate 5 01/15/23 15:47 FiO2 24 01/13/23 04:00 BMI result Body Mass Index 65.8 Const: Other: high BMI,has Sood General: cooperative HEENT: Head: Yes normal to inspection Face and sinus: Yes normal facial exam Mouth: Normal oral and palatal mucosa present Teeth and gingiva: dent ition normal Eyes: General: appearance normal, both eyes and all related structures Pupils: Equal, round and reactive pupils present Resp: Effort & Inspection: normal respiratory effort Cardio: Rate: regular rate Rhythm: regular rhythm GI: Palpation (GI): Soft to palpation and nontender : General: Yes no CVA tenderness Back/Spine/Pelvis: Back: no CVA tenderness Skin: General skin exam: no rashes or lesions noted Neuro: General: moves all extremities Cranial nerves: Yes Equal, round and reactive pupils present Extrem: General: Yes normal to inspection Psych: Appearance: grossly normal Results Labs 01/12/23 09:03 01/15/23 11:38 Labs: BMP 01/15/23 11:38 Sodium 147 H Potassium 3.9 Chloride 109 H Carbon Dioxide 29 BUN 43 H Creatinine 1.23 Calcium 9.1 Microbiology Microbiology Results: Microbiology 01/12/23 Unknown Urine clean catch - Urine schmitt top Urine Culture - Preliminary Klebsiella pneumoniae 01/12/23 09:03 Blood - Venous Blood Culture - Preliminary No growth after 48 hours. 01/12/23 09:03 Blood - Venous Blood Culture - Final Coag negative Staphylococcus Assessment and Plan (1) Acute exacerbation of chronic obstructive airways disease: Status: Acute (2) Acute and chronic respiratory failure: Status: Acute (3) Change in mental status: Status: Acute (4) UTI (urinary tract infection): Status: Acute Possible recurrent Klebsiella ESBL UTI. This is often associated with nephrolithiasis. She has Sood at this time but not chronically. Plan Continue Merem and await sensitivities Check renal u/s or CT scan evaluate nephrolithiasis or obstruction and involve Urology if present. Time Spent With Patient Time: Total time managing care of this patient today ____ minutes.
[2023-01-15 16:38] LABS: Glucose, Whole Blood 187 mg/dL (60-115)
[2023-01-15] MEDS: Insulin Lispro 100 UNIT/ML 3 ML VIAL SUBCUT ×2 (16:52→20:19)
[2023-01-15] MEDS: Megestrol Acetate 400 MG/10 ML ORAL.SUSP PO ×2 (16:52→20:13)
[2023-01-15] MEDS: 0.9 % Sodium Chloride Flush 3 ML SYRINGE IVFLUSH ×2 (16:54→20:20)
[2023-01-15] MEDS: Enoxaparin Sodium 40 MG/0.4 ML SYRINGE SUBCUT (20:13)
[2023-01-15] MEDS: Atorvastatin Calcium 80 MG TABLET PO (20:14)
[2023-01-15] MEDS: acetaZOLAMIDE 250 MG TABLET 500 MG PO (20:15)
[2023-01-15] MEDS: Gabapentin 300 MG CAPSULE 600 MG PO (20:17)
[2023-01-15 20:18] LABS: Glucose, Whole Blood 201 mg/dL (60-115)
[2023-01-15] MEDS: Acetaminophen 325 MG TABLET 650 MG PO (20:18)
[2023-01-15] MEDS: Melatonin 3 MG TABLET PO (20:19)
[2023-01-16] VITALS (10 sets, daily range): BP systolic 103–148; BP diastolic 58–76; PULSE 69–101; RESP 14–25; TEMP 36.1–36.9; O2SAT 90–95
--- NOTE | 2023-01-16 07:18 | PC.NURSE ---
Pt with no u/o via frausto cath and pt c/o perineal pain. After repositioning pt stated she felt a gush and wetness. Pt found to have urinated around catheter large amount. Miryam/frausto care provided and tube unkinked. She was rechecked approx 2 hrs later and found to be wet again. Small mucus clot noted in proximal tubing. MD aware and cath flushed as ordered with immediate urine return. no further leaking noted.
[2023-01-16] MEDS: Albuterol/Iprat 2.5/0.5MG 3 ML AMPUL.NEB INHALE ×3 (07:37→20:39)
[2023-01-16 08:07] LABS: Glucose, Whole Blood 163 mg/dL (60-115)
[2023-01-16] MEDS: Insulin Lispro 100 UNIT/ML 3 ML VIAL SUBCUT ×3 (08:37→20:11)
[2023-01-16] MEDS: Insulin Glargine,Hum.rec.anlog 100 UNIT/ML 10 ML VIAL 40 UNIT SUBCUT (08:37)
[2023-01-16] MEDS: Megestrol Acetate 400 MG/10 ML ORAL.SUSP PO ×3 (08:38→20:11)
[2023-01-16] MEDS: Furosemide 40 MG TABLET PO (08:38)
[2023-01-16] MEDS: Sertraline HCL 100 MG TABLET 200 MG PO (08:38)
[2023-01-16] MEDS: Aspirin 81 MG TAB.CHEW PO (08:39)
[2023-01-16] MEDS: amLODIPine Besylate 5 MG TABLET PO (08:39)
[2023-01-16] MEDS: acetaZOLAMIDE 250 MG TABLET 500 MG PO ×2 (08:39→20:12)
[2023-01-16] MEDS: buPROPion HCl XL 150 MG TAB.ER.24H PO (08:39)
[2023-01-16] MEDS: buPROPion HCl XL 300 MG TAB.ER.24H PO (08:39)
[2023-01-16] MEDS: Gabapentin 300 MG CAPSULE 600 MG PO ×2 (08:39→20:13)
[2023-01-16] MEDS: Empagliflozin 10 MG TABLET PO (08:40)
[2023-01-16] MEDS: 0.9 % Sodium Chloride Flush 3 ML SYRINGE IVFLUSH ×3 (08:40→20:17)
[2023-01-16] MEDS: Ferrous Sulfate 324 MG TABLET.DR PO (08:40)
[2023-01-16] MEDS: ARIPiprazole 2 MG TABLET PO (08:40)
--- NOTE | 2023-01-16 13:10 | P.PNIM_ITS ---
Subjective Subjective Date of Service: 01/16/23 Interval History: seen and examined this morning follow up for respiratory failure, UTI denies sob, cough, abdominal pain Review of Systems Review of Systems: Yes all other systems are reviewed and are negative Constitutional Constitutional: Denies chills and Denies fever(s) ENT Ears, Nose, Mouth, and Throat: Denies dizziness Cardiovascular Cardiovascular: Denies chest pain, Denies palpitations and Denies dyspnea Respiratory Respiratory: Denies cough and Denies dyspnea Gastrointestinal Gastrointestinal: Denies abdominal pain, Denies nausea and Denies vomiting Neurologic Neurologic: Denies dizziness Endocrine Endocrine: Denies palpitations Physical Exam Vital Signs: Vital Signs: Last Vital Signs Temp 97.6 F 01/16/23 08:00 Pulse 81 01/16/23 08:00 Resp 18 01/16/23 08:00 BP 148/72 H 01/16/23 08:00 Pulse Ox 92 01/16/23 08:00 O2 Del Method Nasal Cannula 01/16/23 08:00 O2 Flow Rate 5 01/16/23 08:00 FiO2 24 01/16/23 03:22 BMI result Body Mass Index 65.8 Const: General: comfortable, no acute distress, alert and awake Nutritional Appearance: obese Orientation/consciousness: oriented to person and oriented to place Resp: Effort & Inspection: normal respiratory effort, no respiratory distress and no use of accessory muscles Cardio: Rate: regular rate GI: Inspection: No distended and Yes obesity Palpation (GI): Soft to palpation and nontender Neuro: General: oriented to person, oriented to place and CN's II-XI intact bilaterally Extrem: General: Yes no pedal edema Objective Data Active Medications Acetaminophen (Acetaminophen 325 Mg Tablet) 650 mg PO Q6H PRN PRN Reason: Pain, Mild (Pain Scale 1-3) Last Admin: 01/15/23 20:18 Dose: 650 mg Documented By: HARRISON Acetazolamide (Acetazolamide 250 Mg Tablet) 500 mg PO BID [facility] Last Admin: 01/16/23 08:39 Dose: 500 mg Documented By: PUJA Albuterol/Ipratropium (Albuterol/Iprat 2.5/0.5mg 3 Ml Ampul.Neb) 3 ml INHALE RTID [facility] Last Admin: 01/16/23 07:37 Dose: 3 ml Documented By: IMELDA Amlodipine Besylate (Amlodipine Besylate 5 Mg Tablet) 5 mg PO DAILY [facility]; Protocol Last Admin: 01/16/23 08:39 Dose: 5 mg Documented By: PUJA Aripiprazole (Aripiprazole 2 Mg Tablet) 2 mg PO DAILY [facility] Last Admin: 01/16/23 08:40 Dose: 2 mg Documented By: PUJA Aspirin (Aspirin 81 Mg Tab.Chew) 81 mg PO DAILY [facility] Last Admin: 01/16/23 08:39 Dose: 81 mg Documented By: PUJA Atorvastatin Calcium (Atorvastatin Calcium 80 Mg Tablet) 80 mg PO BEDTIME [facility] Last Admin: 01/15/23 20:14 Dose: 80 mg Documented By: HARRISON Bisacodyl (Bisacodyl 10 Mg Supp.Rect) 10 mg PA DAILY PRN PRN Reason: Constipation Bupropion HCl (Bupropion Hcl Xl 150 Mg Tab.Er.24h) 150 mg PO DAILY [facility] Last Admin: 01/16/23 08:39 Dose: 150 mg Documented By: PUJA Bupropion HCl (Bupropion Hcl Xl 300 Mg Tab.Er.24h) 300 mg PO DAILY [facility] Last Admin: 01/16/23 08:39 Dose: 300 mg Documented By: PUJA Empagliflozin (Empagliflozin 10 Mg Tablet) 10 mg PO DAILY [facility] Last Admin: 01/16/23 08:40 Dose: 10 mg Documented By: PUJA Enoxaparin Sodium (Enoxaparin Sodium 40 Mg/0.4 Ml Syringe) 40 mg SUBCUT Q24H [facility] Last Admin: 01/15/23 20:13 Dose: 40 mg Documented By: HARRISON Ferrous Sulfate (Ferrous Sulfate 324 Mg Tablet.Dr) 324 mg PO DAILY [facility] Last Admin: 01/16/23 08:40 Dose: 324 mg Documented By: PUJA Furosemide (Furosemide 40 Mg Tablet) 40 mg PO DAILY [facility]; Protocol Last Admin: 01/16/23 08:38 Dose: 40 mg Documented By: PUJA Gabapentin (Gabapentin 300 Mg Capsule) 300 mg PO DAILY@1200 [facility] Last Admin: 01/14/23 10:21 Dose: 300 mg Documented By: VENUS Gabapentin (Gabapentin 300 Mg Capsule) 600 mg PO BID [facility] Last Admin: 01/16/23 08:39 Dose: 600 mg Documented By: PUJA Glucose (Glucose Gel 15 Gm Gel..Gram.) 15 gm PO Q15M PRN; Protocol PRN Reason: per Hypoglycemia Standing Ord. Dextrose (D10) 250 mls @ 250 mls/hr IV Q15M PRN PRN Reason: per Hypoglycemia Standing Ord. Dextrose (D10) 250 mls @ 750 mls/hr IV Q15M PRN; Protocol PRN Reason: per Hypoglycemia Standing Ord. Meropenem 1 gm/ Sodium (Chloride) 100 mls @ 200 mls/hr IV Q12H [facility] Last Infusion: 01/16/23 03:39 Dose: 0 mls/hr Documented By: HARRISON Insulin Glargine (Insulin Glargine,Hum.Rec.Anlog 100 Unit/Ml 10 Ml Vial) 40 unit SUBCUT DAILY [facility] Last Admin: 01/16/23 08:37 Dose: 40 unit Documented By: PUJA Insulin Human Lispro (Insulin Lispro 100 Unit/Ml 3 Ml Vial) 0 unit SUBCUT QIDACHS [facility]; Protocol Last Admin: 01/16/23 12:46 Dose: Not Given Documented By: PUJA Non-Admin Reason: No Insulin Coverage Magnesium Hydroxide (Milk Of Magnesia 30 Ml Oral.Susp) 30 ml PO DAILY PRN PRN Reason: Constipation Megestrol Acetate (Megestrol Acetate 400 Mg/10 Ml Oral.Susp) 400 mg PO TID [facility] Last Admin: 01/16/23 08:38 Dose: 400 mg Documented By: PUJA Melatonin (Melatonin 3 Mg Tablet) 3 mg PO BEDTIME [facility] Last Admin: 01/15/23 20:19 Dose: 3 mg Documented By: HARRISON Non-Formulary Medication (Fluticasone Propion-Salmeterol [Airduo Respiclick]) 1 inhalation INHALE BID [facility] Last Admin: 01/12/23 20:41 Dose: Not Given Documented By: CAROLYNN Non-Admin Reason: Med Not Available Non-Formulary Medication (Semaglutide [Ozempic]) 0.25 mg SUBCUT WE [facility] Ondansetron HCl (Ondansetron Hcl 4 Mg/2 Ml Vial) 4 mg IVPUSH Q8H PRN PRN Reason: Nausea and Vomiting Pharmacy Consult (Consult Rx Perform Med Rec) 1 each MISCELLANE ONCE PRN PRN Reason: Consult order Polyethylene Glycol (Polyethylene Glycol 3350 17 Gm Powd.Pack) 17 gm PO DAILY PRN PRN Reason: Constipation Senna (Sennosides 8.6 Mg Tablet) 17.2 mg PO DAILY PRN PRN Reason: Constipation Sertraline HCl (Sertraline Hcl 100 Mg Tablet) 200 mg PO DAILY [facility] Last Admin: 01/16/23 08:38 Dose: 200 mg Documented By: PUJA Sodium Biphosphate/Sodium Phosphate (Sodium Phosphate,Edwards-Dibasic 133 Ml Enema) 118 ml PA DAILY PRN PRN Reason: Constipation Sodium Chloride (0.9 % Sodium Chloride Flush 3 Ml Syringe) 3 ml IVFLUSH QSHIFT [facility] Last Admin: 01/16/23 08:40 Dose: 3 ml Documented By: PUJA Tizanidine HCl (Tizanidine Hcl 4 Mg Tablet) 4 mg PO BEDTIME PRN PRN Reason: Muscle Spasm Labs 01/12/23 09:03 01/15/23 11:38 Labs: Laboratory Results - last 24 hr 01/15/23 01/15/23 01/16/23 16:21 20:15 07:26 POC Glucose 187 H 201 H 163 H Microbiology Microbiology Results: Microbiology 01/12/23 Unknown Urine Culture - Preliminary Urine clean catch - Urine schmitt top Klebsiella pneumoniae Assessment and Plan (1) Acute and chronic respiratory failure: Status: Acute (2) UTI (urinary tract infection): Status: Acute Plan Pt is a 62-year-old female with a PMH significant for?COPD on 4-6L home O2, respiratory failure with hypercapnia, obesity hypoventilation syndrome, insulin- dependent diabetes, HTN, HLD, HFpEF,?Heart block AV third degree,?dual chamber pacemaker, decubitus ulcer, morbid obesity, and ESBL UTI who presents to the ED from SNF with altered mental status and increased lethargy since yesterday. Pt will be admitted to the hospital for acute on chronic hypoxic hypercapnic respiratory failure in the setting of CHF exacerbation. Klebsiella UTI initially treated with IV ceftriaxone, culture growing ESBL +, changed to meropenem /3 final sensitivities to be sent out to lab ID following - will discuss plan for abx on discharge blood cultures 1/2 growing coag negative staph - probably contaminant Acute on chronic hypoxic/hypercarbic respiratory failure Likely secondary to acute HFpEF exacerbation Patient initially placed on BiPAP in the in the ED with improved mentation and breathing Patient on home BiPAP at night, 5-7 L NC otherwise Continue Oxymask for now, wean as tolerated BiPAP at bedtime, apparently non compliant at SNF Titrate supplemental O2 between 88 and no more than 93% Acute HFpEF exacerbation CXR with evidence of CHF, bilateral pitting edema, pleural effusion Furosemide 40 mg IV b.i.d. transitioned back to oral lasix Echo with preserved EF Seen by cardiology> not treating for CHF, likely more related to Pulm issues Monitor on telemetry Acute metabolic Encephalopathy. Resolving secondary to hypoxic/hypercarbic respiratory failure, CHF, possible UTI Treat as above BERNIE. Trending down Patient's creatinine 1.87 at time of presentation, elevated from baseline of 0.9 0 Treat as above with diuretics Follow BMP Hyperkalemia. Resolved Patient's potassium 6.8 at time of presentation s/p Lokelma Follow BMP Insulin-dependent diabetes type 2 ss, ada diet Essential HTN Hold enalapril due to BERNIE Continue amlodipine HLD Continue statin Morbid obesity. BMI 65.8 Advice weight loss advised d/t impact on above health issues Mood disorder Continue home meds Skin breakdown/sacral decubitus ulcer Patient position every 2 hours Air loss mattress Zinc oxide and foam dressing. DNR/DNI Attending?Dr. valles DVT Prophylaxis: Lovenox DISPO - return to SNF when medical stable - possibly tomorrow continue hospital stay for treatment of?acute on chronic hypoxic hypercapnic respiratory failure in the setting of CHF exacerbation. Time Spent With Patient Time: Total time managing care of this patient today ____ minutes. Quality Stroke Does the patient have a stroke diagnosis?: No VTE Prior VTE?: No VTE Risk Level:: Medical - moderate - high VTE Device Contraindication: Treatment Not Indicated VTE Drug Contraindication: N/A - Med Ordered
[2023-01-16] MEDS: Gabapentin 300 MG CAPSULE PO (13:15)
[2023-01-16 13:57] LABS: Anion Gap 16 (12-20); Blood Urea Nitrogen 37 mg/dL (9-16); Calcium 8.5 mg/dL (8.4-10.2); Carbon Dioxide 23 mmol/L (22-29); Chloride 109 mmol/L (96-108); Creatinine Clr Calc Pharmacy 89.8; Estimated Glomerular Filt Rate 56; Glucose Random 150 mg/dL (60-115); Potassium 3.6 mmol/L (3.3-5.1); Sodium 144 mmol/L (135-145)
[2023-01-16 16:45] LABS: Glucose, Whole Blood 308 mg/dL (60-115)
--- NOTE | 2023-01-16 18:48 | PC.NURSE ---
Received telephone order from provider to remove frausto catheter. Catheter removed at 18:15 patient tolerated it well, due to void by 0150 on 01/17. External catheter in place.
[2023-01-16 19:47] LABS: Glucose, Whole Blood 225 mg/dL (60-115)
[2023-01-16] MEDS: Melatonin 3 MG TABLET PO (20:12)
[2023-01-16] MEDS: TiZANidine HCL 4 MG TABLET PO (20:13)
[2023-01-16] MEDS: Atorvastatin Calcium 80 MG TABLET PO (20:13)
[2023-01-16] MEDS: Enoxaparin Sodium 40 MG/0.4 ML SYRINGE SUBCUT (20:14)
[2023-01-17 03:26] VITALS: BP 130/70; PULSE 77; RESP 20; TEMP 36.7; O2SAT 92
[2023-01-17 04:26] VITALS: PULSE 77; RESP 20; O2SAT 93
[2023-01-17] MEDS: Albuterol/Iprat 2.5/0.5MG 3 ML AMPUL.NEB INHALE (07:38)
[2023-01-17 07:39] VITALS: PULSE 72; RESP 21; O2SAT 96
[2023-01-17 08:05] LABS: Glucose, Whole Blood 195 mg/dL (60-115)
[2023-01-17 08:26] VITALS: BP 163/88; PULSE 89; RESP 20; TEMP 36.5; O2SAT 100
[2023-01-17] MEDS: Megestrol Acetate 400 MG/10 ML ORAL.SUSP PO (09:17)
[2023-01-17] MEDS: 0.9 % Sodium Chloride Flush 3 ML SYRINGE IVFLUSH (09:17)
[2023-01-17] MEDS: Insulin Lispro 100 UNIT/ML 3 ML VIAL SUBCUT ×2 (09:17→12:10)
[2023-01-17] MEDS: Ferrous Sulfate 324 MG TABLET.DR PO (09:18)
[2023-01-17] MEDS: Insulin Glargine,Hum.rec.anlog 100 UNIT/ML 10 ML VIAL 40 UNIT SUBCUT (09:18)
[2023-01-17] MEDS: Sertraline HCL 100 MG TABLET 200 MG PO (09:18)
[2023-01-17] MEDS: buPROPion HCl XL 300 MG TAB.ER.24H PO (09:18)
[2023-01-17] MEDS: buPROPion HCl XL 150 MG TAB.ER.24H PO (09:18)
[2023-01-17] MEDS: Aspirin 81 MG TAB.CHEW PO (09:19)
[2023-01-17] MEDS: ARIPiprazole 2 MG TABLET PO (09:19)
[2023-01-17] MEDS: Gabapentin 300 MG CAPSULE 600 MG PO (09:19)
[2023-01-17] MEDS: Furosemide 40 MG TABLET PO (09:19)
[2023-01-17] MEDS: acetaZOLAMIDE 250 MG TABLET 500 MG PO (09:19)
[2023-01-17] MEDS: amLODIPine Besylate 5 MG TABLET PO (09:19)
[2023-01-17] MEDS: Empagliflozin 10 MG TABLET PO (09:19)
--- NOTE | 2023-01-17 10:48 | MHC.CLN ---
F/U PO INTAKE 100% X 3 MEALS DIET RX: 1800DM-RECOMMEND ADDING 2GM NA TO CURRENT DIET WITH 11 OZ ENSURE MAX SUPPLEMENT BID TO PROMOTE WOUND HEALING SUPP TO PROVIDE 300KCALS, 60G PROTEIN WITH 100% ACCEPTANCE MONITOR PO INTAKE CLOSELY
--- NOTE | 2023-01-17 11:16 | MHC.CM.PN ---
Patient has been medically cleared for dc to SNF/STR today. Patient will return to STR @ [facility] today at 2 PM, via [facility]. CM spoke with ./HCP/Miah @ [phone] and informed him of the dc plan.
[2023-01-17 11:18] LABS: Glucose, Whole Blood 200 mg/dL (60-115)
--- NOTE | 2023-01-17 11:41 | P.DS_ITS ---
DS: Providers Provider Date of Service: 01/17/23 Date of admission: 01/12/23 20:22 Date of discharge: 01/17/23 Primary care physician: Darlene Bal MD Consults: 01/12/23 20:22 Consult to Cardiology [place]ine [place] [facility] [facility] Reason for consultation: Acute CHF 01/15/23 11:20 Consult to Infectious Diseases Routine Consulting [place] [facility] [place] [place] Reason for consultation: kliebsiella uti Attending physician on discharge: Paul Bernard Discharging clinician: Bonnie Macedo DS: Diagnosis Discharge Diagnosis (1) Acute and chronic respiratory failure: Status: Acute (2) UTI (urinary tract infection): Status: Acute DS: Summary Hospital Course Hospital Course: From H&P on day of admission Pt is a 62-year-old female with a PMH significant for?COPD on 4-6L home O2, respiratory failure with hypercapnia, obesity hypoventilation syndrome, insulin-dependent diabetes, HTN, HLD, HFpEF,?Heart block AV third degree,?dual chamber pacemaker, decubitus ulcer, morbid obesity, and ESBL UTI who presents to the ED from SNF with altered mental status and increased lethargy since yesterday. Pt currently alert and oriented towards self and time, not to place or situation; pt incapable of providing accurate HPI, which is obtained from chart and provider review.? According to facility staff patient's last known well time was yesterday at dinner.? Soon after patient became increasingly confused and hypoxic with O2 sat in the 80s.? According to staff patient was afebrile with no cough reported.? In the ED patient was placed on BiPAP with improvement to mentation and breathing.? ED contacted ICU who said patient was okay to admit to the floor once she was weaned from BiPAP. In the ED was tachypneic up to 32, hypertensive up to 144/83, weaned from BiPAP and satting at 95% O2 on OxyMask. Labs were significant for no leukocytosis, initial potassium of 6.8, BUN 43, creatinine of 1.87, random glucose elevated at up to 459, BNP 71, troponin 12.5.? ABG pH 7.14 with pCO2 57 with repeat pH 7.24 with pCO2 of 55. CXR showed evidence of congestive heart failure with small left pleural effusion and mild interstitial opacification possibly mild interstitial edema. EKG demonstrated chronic wide QRS rhythm and chronic left bundle-branch block. Pt was treated with IVF, albuterol, levofloxacin, insulin, furosemide IV, calcium gluconate, and Lokelma. Pt will be admitted to the hospital for acute on chronic hypoxic hypercapnic respiratory failure in the setting of CHF exacerbation. Klebsiella UTI. initially treated with IV ceftriaxone, culture growing ESBL +, changed to meropenem 12/16. final sensitivities to be sent out to lab. Discussed with ID following - plan for fosfomycin 3 g once and then 3 days later repeat. blood cultures 1/2 growing coag negative staph - likely contaminant Acute on chronic hypoxic/hypercarbic respiratory failure. Likely secondary to acute HFpEF exacerbation. Patient initially placed on BiPAP in the in the ED with improved mentation and breathing. .Important that patient uses BiPAP at bedtime, patient with all naps. Resume baseline oxygen, Titrate supplemental O2 between 88 and no more than 93%. Acute HFpEF exacerbation CXR with evidence of CHF, bilateral pitting edema, pleural effusion. Treated with Furosemide 40 mg IV b.i.d., improved and transitioned back to oral lasix. Echo with preserved EF. Recommend low sodium diet. Seen by Cardiology. Recommended to add Jardiance 10 mg daily. Will need outpatient cardiology follow-up Acute metabolic Encephalopathy. Resolving secondary to hypoxic/hypercarbic respiratory failure, CHF, possible UTI BERNIE. Trending down Patient's creatinine 1.87 at time of presentation, elevated from baseline of 0.90, back to around 1. Hyperkalemia. Resolved Patient's potassium 6.8 at time of presentation. s/p treatment with Lokelma Time Spent with Patient Time attestation: Total time managing care of this patient today ____ minutes. Discharge coordination time: Greater than 30 minutes Quality: Safe Use of Opioids Does Pt have an Active Cancer Diagnosis on the Problem List?: No Quality: Stroke Does the patient have a stroke diagnosis?: No Physical Exam Vital Signs: Vital Signs: Last Vital Signs Temp 97.7 F 01/17/23 08:26 Pulse 89 01/17/23 08:26 Resp 20 01/17/23 08:26 BP 163/88 H 01/17/23 08:26 Pulse Ox 100 01/17/23 08:26 O2 Del Method Room Air 01/17/23 08:26 O2 Flow Rate 4 01/16/23 19:26 FiO2 24 01/16/23 15:20 BMI result Body Mass Index 65.8 Const: General: comfortable, no acute distress, alert and awake Nutritional Appearance: obese Orientation/consciousness: patient oriented x3 Resp: Effort & Inspection: normal respiratory effort, able to speak in complete sentences, no respiratory distress and no use of accessory muscles Cardio: Rate: regular rate Heart sounds: S1 normal heart sound present and S2 normal heart sound present GI: Inspection: No distended and Yes obesity Palpation (GI): Soft to palpation and nontender Neuro: General: patient oriented x3 and CN's II-XI intact bilaterally Extrem: Other: limited LUE ROM due to chronic shoulder pain General: Yes no pedal edema DS: Data Data Completed and Pending Completed studies during hospitalization [Text1]: Procedures Assistance with Respiratory Ventilation, Less than 24 Consecutive Hours, Continuous Positive Airway Pressure (01/01/23) Insertion of Endotracheal Airway into Trachea, Via Natural or Artificial Opening (11/18/21) Insertion of Infusion Device into Superior Vena Cava, Percutaneous Approach (11/18/21) Introduction of Vasopressor into Peripheral Vein, Percutaneous Approach (11/18/21) Respiratory Ventilation, 24-96 Consecutive Hours (11/18/21) Ultrasonography of Superior Vena Cava, Guidance (11/18/21) Labs on day of discharge: Laboratory Results - last 24 hr 01/16/23 01/16/23 01/16/23 08:29 16:01 19:43 Sodium 144 Potassium 3.6 Chloride 109 H Carbon Dioxide 23 Anion Gap 16 BUN 37 H Creatinine 1.00 Estim Creat Clear Calc 89.8 Estimated GFR 56 POC Glucose 308 H 225 H Random Glucose 150 H Calcium 8.5 D 01/17/23 01/17/23 08:00 11:10 Sodium Potassium Chloride Carbon Dioxide Anion Gap BUN Creatinine Estim Creat Clear Calc Estimated GFR POC Glucose 195 H 200 H Random Glucose Calcium Preliminary micro results at discharge 01/12/23 Unknown Urine Culture - Preliminary Urine clean catch - Urine schmitt top Klebsiella pneumoniae Discharge Plan Discharge Anticipated Discharge Date/Time: 01/17/23 15:00 Patient Disposition: Xfer SNF Discharge Diagnosis: acute on chronic respiratory failure UTI Referrals: [facility] [Outside] - 1 Week Darlene Bal MD [Primary Care Provider] - 1 Week Discharge Medications: New Jardiance 10 mg Tablet 10 mg PO DAILY 30 Days Qty: 30 0RF fosfomycin tromethamine 3 gram packet 1 packet PO Q3D 2 Days Qty: 2 0RF Rx Instructions: Give 3g and then in 3 days give another 3g Continued furosemide 40 mg Tablet 40 mg PO DAILY Qty: 30 0RF Protocol: Hold for SBP< HOLD for SBP < : 90 ipratropium-albuterol 0.5 mg-3 mg(2.5 mg base)/3 mL Solution For Nebulization 3 ml INHALATION TID potassium chloride 10 mEq Tablet Extended Release 10 meq PO DAILY Hold Instructions: Recheck K level in 1 week to decide if needed or not. Rx Instructions: recheck K level in 1 week to decide if needed or not. Culturelle 10 billion cell Capsule 1 cap PO BID bupropion HCl 150 mg tablet extended release 24 hr 1 tab PO DAILY Rx Instructions: take with 300mg; tdd 450mg magnesium hydroxide [Milk of Magnesia] 400 mg/5 mL Suspension 30 ml PO DAILY PRN (Reason: Constipation) Rx Instructions: USE IF NO BOWEL MOVEMENT FOR 3 DAYS Fleet Enema 19-7 gram/118 mL Enema 118 ml OK DAILY PRN (Reason: Constipation) Rx Instructions: IF NO BOWEL MOVEMENT 8 HOURS AFTER BISACODYL fluticasone propion-salmeterol [AirDuo RespiClick] 113-14 mcg/actuation aerosol powdr breath activated 1 inh inhalation BID Rx Instructions: rinse mouth after use AND SPIT OUT atorvastatin 80 mg Tablet 80 mg PO BEDTIME sennosides [senna] 8.6 mg Tablet 17.2 mg PO DAILY PRN (Reason: Constipation) acetaminophen 325 mg Tablet 650 mg PO Q4H PRN (Reason: Fever Or Pain) polyethylene glycol 3350 [Miralax] 17 gram Powder In Packet 17 g PO DAILY PRN (Reason: Constipation) tizanidine 4 mg Tablet 4 mg PO BEDTIME PRN (Reason: Muscle Spasm) sertraline 100 mg Tablet 200 mg PO DAILY melatonin 3 mg Tablet 3 mg PO BEDTIME ferrous sulfate 325 mg (65 mg iron) Tablet 325 mg PO DAILY gabapentin 300 mg Capsule 300 mg PO DAILY@1200 gabapentin 300 mg Capsule 600 mg PO BID insulin lispro 100 unit/mL Insulin Pen See Protocol SUBCUT QIDACHS Protocol: Insulin Correction Scale Less than or equal to 110 ---- Give (units): 0 111 to 150 Give (units): 0 151 to 200 Give (units): 0 201 to 250 Give (units): 4 251 to 300 Give (units): 6 301 to 350 Give (units): 8 Greater than 350 Give (units): 10 Call MD if Blood Glucose > : 350 Rx Instructions: SLIDING SCALE IF BLOOD GLUCOSE GREATER THAN 400, GIVE 12 UNITS AND NOTIFY MD amlodipine 5 mg Tablet 5 mg PO DAILY 30 Days Qty: 30 0RF Protocol: Hold for SBP< HOLD for SBP < : 90 aspirin 81 mg Tablet,Chewable 81 mg PO DAILY megestrol 400 mg/10 mL (10 mL) Suspension 400 mg PO TID acetazolamide 250 mg Tablet 500 mg PO BID Qty: 60 0RF aripiprazole 2 mg tablet 2 mg PO DAILY metformin 500 mg tablet 500 mg PO BID Ozempic 0.25 mg or 0.5 mg (2 mg/3 mL) pen injector 0.25 mg subcut WE Rx Instructions: CHANGE TO 0.50 MG STARTING 01/22/23 bisacodyl 10 mg suppository 10 mg OK DAILY PRN (Reason: Constipation) Rx Instructions: GIVE IF NO RESULT FROM MILK OF MAGNESIA magnesium citrate [Citrate of Magnesia] Solution 150 ml PO DAILY PRN (Reason: Constipation) Rx Instructions: IF NO BOWEL MOVEMENT 12 HOURS AFTER FLEET ENEMA bupropion HCl 300 mg tablet extended release 24 hr 300 mg PO DAILY Rx Instructions: take with 150mg dose; tdd 450mg Changed insulin glargine 100 unit/mL Solution 40 unit SUBCUT DAILY Qty: 10 0RF Held insulin lispro 100 unit/mL solution 5 unit subcut TIDAC Hold Instructions: resume as needed if blood sugar persistently elevated Discontinued enalapril maleate 20 mg Tablet 20 mg PO DAILY Discharge Orders: Discharge Order (Routine); Ordered 01/17/23 Ordered By: Bonnie Macedo Activity on Discharge: As tolerated Stand Alone Forms: Patient Portal Discharge page Care Plan Goals: resolution of UTI Health Concerns: recurrent respiratory failure UTI Plan of Treatment: For UTI - Complete course of antibiotics as prescribed - Give 1 dose (3g) of fosfomycin tomorrow and then 3 days later to give a 2nd dose (3g) Continue low-sodium, diabetic diet Follow BMP in one week and periodically thereafter Must use Bipap every night and for all naps Minimize use of sedating medication when possible Has been receiving 40U Lantus, with good control of blood sugar, can up titrate prn. has been covered with sliding scale and has not required premeal insulin, but can resume if blood sugar persistently elevated Jardiance 10 mg daily was recommended to be added by compliance and control analyst Recommend outpatient follow-up with Cardiology Recommend outpatient follow-up with PCP Enalapril has been discontinued due to BERNIE. Renal function improved. Can resume if blood pressure uncontrolled and renal function remained stable Assessment: see discharge summary
[2023-01-17] MEDS: Gabapentin 300 MG CAPSULE PO (12:10)
[2023-01-17 12:40] LABS: COVID-19 Test Negative (Negative); IDNOW Serial# 08D9AD1C
== END 2023-01-17 14:26 | disposition skilled nursing facility (03) | DRG 291 ==
LOC: HO.ED 16:14 → HO.EDOVER 20:41 → HO.IMC 20:58
PROVIDERS: Emergency Medicine; Nurse Practitioner Acute Care; Student in an Organized Health Care Education/Training Program; Admitting Provider Student in an Organized Health Care Education/Training Program; Emergency Provider Student in an Organized Health Care Education/Training Program; PCP Internal Medicine; Visit Provider Physician Assistant Medical
DX: I11.0 Hypertensive heart disease with heart failure (principal); G93.41 Metabolic encephalopathy; I50.33 Acute on chronic diastolic (congestive) heart failure; J96.21 Acute and chronic respiratory failure with hypoxia; J96.22 Acute and chronic respiratory failure with hypercapnia; E66.2 Morbid (severe) obesity with alveolar hypoventilation; Z68.44 Body mass index [BMI] 60.0-69.9, adult; N17.9 Acute kidney failure, unspecified; N39.0 Urinary tract infection, site not specified; Z16.12 Extended spectrum beta lactamase (ESBL) resistance; Z95.0 Presence of cardiac pacemaker; Z66 Do not resuscitate; I49.5 Sick sinus syndrome; E78.5 Hyperlipidemia, unspecified; E87.5 Hyperkalemia; E11.65 Type 2 diabetes mellitus with hyperglycemia; B96.1 Klebsiella pneumoniae [K. pneumoniae] as the cause of diseases classified elsewhere; L89.152 Pressure ulcer of sacral region, stage 2; Z20.822 Contact with and (suspected) exposure to COVID-19; Z87.891 Personal history of nicotine dependence; Z86.711 Personal history of pulmonary embolism; Z99.81 Dependence on supplemental oxygen; Z91.040 Latex allergy status; Z79.4 Long term (current) use of insulin; Z79.01 Long term (current) use of anticoagulants; Z79.51 Long term (current) use of inhaled steroids; Z79.82 Long term (current) use of aspirin; Z79.84 Long term (current) use of oral hypoglycemic drugs; Z79.899 Other long term (current) drug therapy
CPT/HCPCS: 0241U; 36415; 71045; 76775; 80048; 80076; 81001; 82803; 82947; 83605; 83690; 83735; 83880; 84484; 85025; 87040; 87086; 87088; 87147; 87205; 87635; 93005; 93306; 94640; 94660; 99285; C1758; J0613; J0696; J1650; J1940; J1956; J2185; Q9957

== ENCOUNTER 2023-01-24 11:26 | Inpatient (IN) | payer OTHER, MEDICARE, MEDICAID, SELFPAY ==
[2023-01-24] VITALS (12 sets, daily range): BP systolic 127–164; BP diastolic 40–82; PULSE 70–101; RESP 15–26; TEMP 36.2–36.6; O2SAT 80–95; BMI 54.3
--- NOTE | ~2023-01-24 | XR_ITS ---
EXAMINATION: XR CHEST CLINICAL INFORMATION: Dyspnea COMPARISON: Chest 01/12/2023 TECHNIQUE: Frontal view of the chest was obtained. FINDINGS: Hypoexpanded lungs with platelike atelectasis right midlung and compressive atelectasis left lung base. Heart size is enlarged. Pulmonary vascularity is prominent suspicious for mild congestion. No gross bony abnormality seen. XR/XR chest 1V IMPRESSION: 1. Cardiomegaly with mild pulmonary vascular congestion. 2. Platelike atelectasis right midlung and compressive atelectasis left lung base.
--- NOTE | 2023-01-24 11:42 | ECG_ITS ---
Test Reason : hypoxic,ams Blood Pressure : / mmHG Vent. Rate : 077 BPM Atrial Rate : 077 BPM P-R Int : 194 ms QRS Dur : 166 ms QT Int : 424 ms P-R-T Axes : 043 -34 118 degrees QTc Int : 479 ms Normal sinus rhythm Left axis deviation Left bundle branch block Abnormal ECG When compared with ECG of 12-JAN-2023 08:48, No significant change was found Referred By: Josesiot Gonsales Electronically Signed By:SANJANA LAGUERRE
--- NOTE | 2023-01-24 11:43 | ED_ITS ---
HPI - SOB/Dyspnea General Chief Complaint: Dyspnea Stated Complaint: Low O2, From SNF per EMS Time Seen by Provider: 01/24/23 11:36 Source: EMS Mode of arrival: EMS Limitations: altered mental status History of Present Illness HPI Narrative: Hypoxia at the long-term MD elicited complaint: shortness of breath Related Data Home Medications Medication Instructions Recorded Confirmed acetaminophen 325 mg tablet 650 mg PO Q4H PRN Fever Or Pain 11/18/21 01/12/23 atorvastatin 80 mg tablet 80 mg PO BEDTIME 11/18/21 01/12/23 ferrous sulfate 325 mg (65 mg 325 mg PO DAILY 11/18/21 01/12/23 iron) tablet gabapentin 300 mg capsule 300 mg PO DAILY@1200 11/18/21 01/12/23 gabapentin 300 mg capsule 600 mg PO BID 11/18/21 01/12/23 insulin lispro 100 unit/mL See Protocol subcut QIDACHS 11/18/21 01/12/23 subcutaneous pen melatonin 3 mg tablet 3 mg PO BEDTIME 11/18/21 01/12/23 polyethylene glycol 3350 17 gram 17 g PO DAILY PRN Constipation 11/18/21 01/12/23 oral powder packet (Miralax) sennosides 8.6 mg tablet (senna) 17.2 mg PO DAILY PRN Constipation 11/18/21 01/12/23 sertraline 100 mg tablet 200 mg PO DAILY 11/18/21 01/12/23 tizanidine 4 mg tablet 4 mg PO BEDTIME PRN Muscle Spasm 11/18/21 01/12/23 aspirin 81 mg chewable tablet 81 mg PO DAILY 01/05/22 01/12/23 megestrol 400 mg/10 mL (10 mL) 400 mg PO TID 01/05/22 01/12/23 oral suspension bupropion HCl 300 mg 24 hr tablet, 300 mg PO DAILY 04/09/22 01/12/23 extended release insulin lispro 100 unit/mL 5 unit subcut TIDAC 04/09/22 01/12/23 subcutaneous solution Lactobacillus rhamnosus GG 10 1 cap PO BID 10/09/22 01/12/23 billion cell capsule (Culturelle) bupropion HCl 150 mg 24 hr tablet, 1 tab PO DAILY 10/09/22 01/12/23 extended release ipratropium 0.5 mg-albuterol 3 mg 3 ml inhalation TID 10/09/22 01/12/23 (2.5 mg base)/3 mL nebulization soln potassium chloride 10 mEq 10 meq PO DAILY 10/09/22 01/12/23 tablet,extended release bisacodyl 10 mg rectal suppository 10 mg VA DAILY PRN Constipation 10/21/22 01/12/23 magnesium citrate (Citrate of 150 ml PO DAILY PRN Constipation 10/21/22 01/12/23 Magnesia oral) fluticasone 113 mcg-salmeterol 14 1 inh inhalation BID 11/09/22 01/12/23 mcg/actuation breath activated powdr (AirDuo RespiClick) magnesium hydroxide 400 mg/5 mL 30 ml PO DAILY PRN Constipation 11/09/22 01/12/23 oral suspension (Milk of Magnesia) sodium phosphates 19 gram-7 118 ml VA DAILY PRN Constipation 11/09/22 01/12/23 gram/118 mL enema (Fleet Enema) metformin 500 mg tablet 500 mg PO BID 12/27/22 01/12/23 semaglutide 0.25 mg or 0.5 mg (2 0.25 mg subcut WE 12/27/22 01/12/23 mg/3 mL) subcutaneous pen injector (Ozempic) aripiprazole 2 mg tablet 2 mg PO DAILY 01/12/23 01/12/23 Previous Rx's Medication Instructions Recorded amlodipine 5 mg tablet 5 mg PO DAILY 30 days #30 tabs 11/26/21 furosemide 40 mg tablet 40 mg PO DAILY #30 tabs 04/05/22 acetazolamide 250 mg tablet 500 mg PO BID #60 tabs 01/06/23 empagliflozin 10 mg tablet 10 mg PO DAILY 30 days #30 tabs 01/17/23 (Jardiance) fosfomycin tromethamine 3 gram 1 packet PO Q3D 2 days #2 ea 01/17/23 oral packet insulin glargine 100 unit/mL 40 unit (0.4 mL) subcut DAILY #10 01/17/23 subcutaneous solution mL Allergies Allergy/AdvReac Type Severity Reaction Status Date / Time latex Allergy Unknown Unknown Verified 10/21/22 13:48 adhesive tape AdvReac Unknown Unknown Verified 10/21/22 13:48 bupropion [From Wellbutrin] AdvReac Unknown Unknown Verified 10/21/22 13:48 ibuprofen AdvReac Unknown Unknown Verified 10/21/22 13:48 Review of Systems Review of Systems: Yes all other systems are reviewed and are negative Cardiovascular: Cardiovascular: Reports dyspnea Respiratory: Respiratory: Reports dyspnea [facility] Past Medical History Medical History Acute and chronic respiratory failure with hypercapnia Acute and chronic respiratory failure with hypercapnia Acute on chronic respiratory failure with hypoxia and hypercapnia Anemia Arthritis Atelectasis of both lungs CHF (congestive heart failure) Clostridium difficile infection Depression Diabetes mellitus, type 2 Diabetic ulcer of foot associated with diabetes mellitus due to underlying condi tion, with fat layer exposed Heart block AV third degree Hypertension Hypertrophic nonobstructive cardiomyopathy Hypoventilation associated with obesity syndrome Metabolic encephalopathy Morbid obesity Morbid obesity Morbid obesity Obesity hypoventilation syndrome SMILEY (obstructive sleep apnea) PAD (peripheral artery disease) Presence of permanent cardiac pacemaker Presence of permanent cardiac pacemaker Pressure injury of deep tissue of buttock Pressure ulcer, stage II, skin breakdown Pulmonary embolism Respiratory failure Respiratory failure with hypoxia and hypercapnia Sick sinus syndrome Urinary tract infection due to ESBL Klebsiella Surgical History History of total knee replacement Social History Social History Household Members: Unknown / Unable to assess Housing: Other Housing Other:: SNF Are you a primary intensive care nurse to a significant other at home: No Do you presently have visiting nurse or other home services: No Unable to assess alcohol history related to: Unable to respond Alcohol intake: unknown Patient Tobacco Use Status: Former Tobacco user Quit Date: 1999 Tobacco use type: Cigarette Cigarette Packs Per Day: 20 Cigarettes Per Day: 400.0 Years Smoked: 20 e-Cigarette/Vaping Use: Never Used Second Hand Smoke Exposure: No Substance Use Type: Unknown Advance Directives: Yes Advance Directives on File: Yes Advance Directives Date on File: 01/07/23 service: No Current occupational status: disabled Physical Exam Vital Signs: Vital Signs: Last Vital Signs Temp 97.2 F 01/24/23 15:33 Pulse 72 01/24/23 15:33 Resp 19 01/24/23 15:51 BP 158/68 H 01/24/23 15:33 Pulse Ox 93 01/24/23 15:33 O2 Del Method BiPAP 01/24/23 15:33 FiO2 30 01/24/23 15:33 Oxygen Flow Rate 4 01/24/23 11:37 BMI result Body Mass Index 54.3 Const: Other: lethargic chronically ill Nutritional Appearance: obese Orientation/consciousness: oriented to person Limitations: no limitations HEENT: Head: Yes normal to inspection Ears: external ears normal General nose exam: Normal external nose present Mouth: Normal oral and palatal mucosa present and oropharynx normal Throat: Yes posterior oropharynx normal Eyes: General: appearance normal, both eyes and all related structures Neck: Other: supple Neck: Yes normal visual inspection Chest: Chest palpation & inspection: normal inspection of the chest Resp: Auscultation: clear to auscultation bilaterally Cardio: Jugular venous distension: no JVD Rate: regular rate Rhythm: regular rhythm Heart sounds: S1 normal heart sound present and S2 normal heart sound present GI: Inspection: Yes normal to inspection Palpation (GI): Soft to palpation, nontender and No hepatosplenomegaly present Auscultation: normal bowel sounds : General: Yes no CVA tenderness Back/Spine/Pelvis: Back: no CVA tenderness Skin: General skin exam: no rashes or lesions noted Neuro: General: oriented to person Motor exam (neuro): 5/5 motor strength present throughout Extrem: Other: 3+ edema bilaterally Psych: Appearance: grossly normal Course Reevaluation(s) Reevaluation #1: I spent 40 minutes of critical care, with interventions, assessments, speaking to patient, consultants, and family. patient initially started on Bipap and now weened off. Will have to be admitted for respiratory failure Time: 16:32 Medications Administered Discontinued Medications Generic Name Dose Route Start Last Admin Trade Name Freq PRN Reason Stop Dose Admin Albuterol Sulfate 10 mg 01/24/23 13:09 01/24/23 13:41 Albuterol Sulfate (0.083%) 2.5 Mg/3 Ml Vial.Neb INHALE 01/24/23 13:10 10 mg ONCE ONE Administration Medical Decision Making Differential Diagnosis Differential Diagnoses: The differential diagnosis associated with the presentation includes (respiratory failure, pneumonia, hypercarbia, hypoxia) Admission/Observation Consideration of admission/observation: Escalation of care including admission/observation considered (upon arrival this patient with complex medical and complex lung history with respiratory failure and hypoxia was immediately considered for admission) Consult Healthcare Provider Management of the patient was discussed with: Hospitalist and Epic Prelude Analyst (Dr. Salazar) Lab Data MDM Lab Attestation statement: I reviewed the patient's lab results. 01/24/23 11:58 01/24/23 11:58 Labs: Lab Results 01/24/23 01/24/23 01/24/23 Range/Units 11:52 11:58 11:58 WBC 8.2 (4.8-10.8) X10*3/uL RBC 4.39 (4.20-5.50) X10*6/uL Hgb 12.7 (12.0-16.0) g/dl Hct 43.1 (37.0-47.0) % MCV 98.2 H (80.0-98.0) fL MCH 28.9 (27.0-33.0) pg MCHC 29.5 L (31.0-35.0) g/dl RDW 15.3 (11.0-16.0) % Plt Count 313 D (160-400) X10*3/uL MPV 9.9 (9.4-12.3) fL Absolute Nucleated RBC 0.080 H (0.0-0.012) X10*3/uL Nucleated RBC % (auto) 1.0 H (0.0-0.2) /100WBC VBG pH 7.24 L (7.32-7.43) VBG pCO2 75 mmHg VBG pO2 66 mmHg VBG HCO3 32 H (22-26) mmol/L VBG O2 Saturation 91.0 % VBG Base Excess 2.9 mmol/L Sodium 142 (135-145) mmol/L Potassium 4.2 (3.3-5.1) mmol/L Chloride 103 (96-108) mmol/L Carbon Dioxide 33 H (22-29) mmol/L Anion Gap 10 L (12-20) BUN 20 H (9-16) mg/dL Creatinine 0.94 (0.5-1.4) mg/dL Estim Creat Clear Calc 99.7 Estimated GFR > 60 Random Glucose 148 H (60-115) mg/dL Calcium 9.1 D (8.4-10.2) mg/dL Troponin I High Sens (<3.5-17.0) ng/L B-Natriuretic Peptide (<100) pg/mL 01/24/23 01/24/23 01/24/23 Range/Units 11:58 11:58 15:36 WBC (4.8-10.8) X10*3/uL RBC (4.20-5.50) X10*6/uL Hgb (12.0-16.0) g/dl Hct (37.0-47.0) % MCV (80.0-98.0) fL MCH (27.0-33.0) pg MCHC (31.0-35.0) g/dl RDW (11.0-16.0) % Plt Count (160-400) X10*3/uL MPV (9.4-12.3) fL Absolute Nucleated RBC (0.0-0.012) X10*3/uL Nucleated RBC % (auto) (0.0-0.2) /100WBC VBG pH 7.32 (7.32-7.43) VBG pCO2 60 mmHg VBG pO2 52 mmHg VBG HCO3 31 H (22-26) mmol/L VBG O2 Saturation 84.0 % VBG Base Excess 4.2 mmol/L Sodium (135-145) mmol/L Potassium (3.3-5.1) mmol/L Chloride (96-108) mmol/L Carbon Dioxide (22-29) mmol/L Anion Gap (12-20) BUN (9-16) mg/dL Creatinine (0.5-1.4) mg/dL Estim Creat Clear Calc Estimated GFR Random Glucose (60-115) mg/dL Calcium (8.4-10.2) mg/dL Troponin I High Sens 17.2 H (<3.5-17.0) ng/L B-Natriuretic Peptide 40 (<100) pg/mL Independent Interpretation I performed an independent interpretation of an: EKG (sinus 77 LBBB old flipped ts I and AVL) and Plain X-Ray (small lung volume, atelectasis, no infiltrate) Independent Historian Clinical information obtained from an independent historian. History obtained from or confirmed by: EMS External Record Review External record reviewed: Inpatient record Chronic Conditions Patient?s care impacted by: Other (obesity and COPD) Discharge Plan Discharge Clinical Impression: Respiratory failure, Hypercarbia, Acute hypercapnic respiratory failure Patient Disposition: Home, Self-Care Prescriptions: No Action furosemide 40 mg Tablet 40 mg PO DAILY Qty: 30 0RF Protocol: Hold for SBP< HOLD for SBP < : 90 ipratropium-albuterol 0.5 mg-3 mg(2.5 mg base)/3 mL Solution For Nebulization 3 ml INHALATION TID potassium chloride 10 mEq Tablet Extended Release 10 meq PO DAILY Hold Instructions: Recheck K level in 1 week to decide if needed or not. Rx Instructions: recheck K level in 1 week to decide if needed or not. Culturelle 10 billion cell Capsule 1 cap PO BID bupropion HCl 150 mg tablet extended release 24 hr 1 tab PO DAILY Rx Instructions: take with 300mg; tdd 450mg magnesium hydroxide [Milk of Magnesia] 400 mg/5 mL Suspension 30 ml PO DAILY PRN (Reason: Constipation) Rx Instructions: USE IF NO BOWEL MOVEMENT FOR 3 DAYS Fleet Enema 19-7 gram/118 mL Enema 118 ml VA DAILY PRN (Reason: Constipation) Rx Instructions: IF NO BOWEL MOVEMENT 8 HOURS AFTER BISACODYL fluticasone propion-salmeterol [AirDuo RespiClick] 113-14 mcg/actuation aerosol powdr breath activated 1 inh inhalation BID Rx Instructions: rinse mouth after use AND SPIT OUT atorvastatin 80 mg Tablet 80 mg PO BEDTIME sennosides [senna] 8.6 mg Tablet 17.2 mg PO DAILY PRN (Reason: Constipation) acetaminophen 325 mg Tablet 650 mg PO Q4H PRN (Reason: Fever Or Pain) polyethylene glycol 3350 [Miralax] 17 gram Powder In Packet 17 g PO DAILY PRN (Reason: Constipation) tizanidine 4 mg Tablet 4 mg PO BEDTIME PRN (Reason: Muscle Spasm) sertraline 100 mg Tablet 200 mg PO DAILY melatonin 3 mg Tablet 3 mg PO BEDTIME ferrous sulfate 325 mg (65 mg iron) Tablet 325 mg PO DAILY gabapentin 300 mg Capsule 300 mg PO DAILY@1200 gabapentin 300 mg Capsule 600 mg PO BID insulin lispro 100 unit/mL Insulin Pen See Protocol SUBCUT QIDACHS Protocol: Insulin Correction Scale Less than or equal to 110 ---- Give (units): 0 111 to 150 Give (units): 0 151 to 200 Give (units): 0 201 to 250 Give (units): 4 251 to 300 Give (units): 6 301 to 350 Give (units): 8 Greater than 350 Give (units): 10 Call MD if Blood Glucose > : 350 Rx Instructions: SLIDING SCALE IF BLOOD GLUCOSE GREATER THAN 400, GIVE 12 UNITS AND NOTIFY MD amlodipine 5 mg Tablet 5 mg PO DAILY 30 Days Qty: 30 0RF Protocol: Hold for SBP< HOLD for SBP < : 90 aspirin 81 mg Tablet,Chewable 81 mg PO DAILY megestrol 400 mg/10 mL (10 mL) Suspension 400 mg PO TID acetazolamide 250 mg Tablet 500 mg PO BID Qty: 60 0RF aripiprazole 2 mg tablet 2 mg PO DAILY Jardiance 10 mg Tablet 10 mg PO DAILY 30 Days Qty: 30 0RF insulin glargine 100 unit/mL Solution 40 unit SUBCUT DAILY Qty: 10 0RF fosfomycin tromethamine 3 gram packet 1 packet PO Q3D 2 Days Qty: 2 0RF Rx Instructions: Give 3g and then in 3 days give another 3g metformin 500 mg tablet 500 mg PO BID Ozempic 0.25 mg or 0.5 mg (2 mg/3 mL) pen injector 0.25 mg subcut WE Rx Instructions: CHANGE TO 0.50 MG STARTING 01/22/23 bisacodyl 10 mg suppository 10 mg VA DAILY PRN (Reason: Constipation) Rx Instructions: GIVE IF NO RESULT FROM MILK OF MAGNESIA magnesium citrate [Citrate of Magnesia] Solution 150 ml PO DAILY PRN (Reason: Constipation) Rx Instructions: IF NO BOWEL MOVEMENT 12 HOURS AFTER FLEET ENEMA bupropion HCl 300 mg tablet extended release 24 hr 300 mg PO DAILY Rx Instructions: take with 150mg dose; tdd 450mg insulin lispro 100 unit/mL solution 5 unit subcut TIDAC Hold Instructions: resume as needed if blood sugar persistently elevated
[2023-01-24 11:59] LABS: Venous Blood Gas Refer to POC result
[2023-01-24 11:59] LABS: VBG Base Excess 2.9 mmol/L; VBG HCO3 32 mmol/L (22-26); VBG pCO2 75 mmHg; VBG pH 7.24 (7.32-7.43); VBG pO2 66 mmHg
[2023-01-24 12:02] LABS: Hematocrit 43.1 % (37.0-47.0); Hemoglobin 12.7 g/dl (12.0-16.0); Mean Corpuscular HGB Conc 29.5 g/dl (31.0-35.0); Mean Corpuscular Hemoglobin 28.9 pg (27.0-33.0); Mean Corpuscular Volume 98.2 fL (80.0-98.0); Mean Platelet Volume 9.9 fL (9.4-12.3); Platelet Count 313 X10*3/uL (160-400); Red Blood Count 4.39 X10*6/uL (4.20-5.50); Red Cell Distribution Width 15.3 % (11.0-16.0); White Blood Count 8.2 X10*3/uL (4.8-10.8)
[2023-01-24 12:23] LABS: Troponin-I High Sensitivity 17.2 ng/L (<3.5-17.0)
[2023-01-24 12:24] LABS: Anion Gap 10 (12-20)
[2023-01-24 12:27] LABS: Blood Urea Nitrogen 20 mg/dL (9-16); Calcium 9.1 mg/dL (8.4-10.2); Carbon Dioxide 33 mmol/L (22-29); Chloride 103 mmol/L (96-108); Creatinine Clr Calc Pharmacy 99.7; Estimated Glomerular Filt Rate > 60; Glucose Random 148 mg/dL (60-115); Potassium 4.2 mmol/L (3.3-5.1); Sodium 142 mmol/L (135-145)
[2023-01-24] MEDS: Albuterol Sulfate (0.083%) 2.5 MG/3 ML VIAL.NEB 10 MG INHALE (13:41)
--- NOTE | 2023-01-24 14:30 | MHC.CM.ED ---
Received notification from RT Marino that patient has been a freq flyer to the ER from [facility]. T/W spoke with Whitney at [facility]. Patient will refuse her cpap at the facility. Her O2 sat will drop. They will put her on her Cpap but her O2 sat is not able to recover and they have to send her to the ER. There have been talks with the about transferring patient to a LTAC, like [facility]. These talks have not been successful at this time. Continue to monitor for d/c needs.
[2023-01-24 15:23] LABS: B Type Natriuretic Peptide 40 pg/mL (<100)
[2023-01-24 15:46] LABS: VBG Base Excess 4.2 mmol/L; VBG HCO3 31 mmol/L (22-26); VBG pCO2 60 mmHg; VBG pH 7.32 (7.32-7.43); VBG pO2 52 mmHg
[2023-01-24 15:55] LABS: Venous Blood Gas Refer to POC result
--- NOTE | 2023-01-24 16:52 | PM.IMHP ---
History of Present Illness Date of Service: 01/24/23 Attending physician on admission: [facility] Chief Complaint: Hypoxia Pt is a 62-year-old female with a PMH significant for?COPD on 4-6L home O2, respiratory failure with hypercapnia, insulin-dependent diabetes type 2, HTN, HLD, HFpEF,?Heart block AV third degree,?dual chamber pacemaker, decubitus ulcer, morbid obesity, obesity hypoventilation syndrome, and ESBL UTI who presents to the ED from SNF with altered mental status, increased lethargy, and hypoxia. Pt currently alert and oriented towards self and time, not to place or situation; pt incapable of providing accurate HPI, which is obtained from chart and provider review.? Pt noted by staff at [facility] to be increasingly confused and hypoxic with O2 sat in the 80s.?In the ED patient was placed on BiPAP with improvement to symptoms. Was eventually weaned from BiPAP and placed on 3L NC and satting at 92%. Pt's mentation has not yet returned to baseline. Of note, patient is well-known to the hospital and presented on 01/12/2023 with similar symptoms. In the ED patient was afebrile, but tachypneic up to 26, tachycardic up to 101, hypertensive to 158/68, and hypoxic at 88% O2 on 4 L NC. Labs were significant for bicarb of 33, initial troponin 17.2. No leukocytosis, stable H&H. Renal function baseline. BNP WNL at 40. VBG with pH of 7.2 and HC03 32, repeat with pH 7.32 with HC03 of 31. UA pending. CXR showed cardiomegaly with mild pulmonary vascular congestion and platelike atelectasis in right mid lung and compressive atelectasis in left lung base. EKG demonstrated normal sinus rhythm with chronic left bundle branch block, similar to previous EKGs. Pt was treated with BiPAP and Ventolin. Pt will be admitted to the hospital Review of Systems Review of Systems: Unable to obtain due to patient's mentation [facility] Medical History Acute and chronic respiratory failure with hypercapnia Acute and chronic respiratory failure with hypercapnia Acute on chronic respiratory failure with hypoxia and hypercapnia Anemia Arthritis Atelectasis of both lungs CHF (congestive heart failure) Clostridium difficile infection Depression Diabetes mellitus, type 2 Diabetic ulcer of foot associated with diabetes mellitus due to underlying condition, with fat layer exposed Heart block AV third degree Hypertension Hypertrophic nonobstructive cardiomyopathy Hypoventilation associated with obesity syndrome Metabolic encephalopathy Morbid obesity Morbid obesity Morbid obesity Obesity hypoventilation syndrome SMILEY (obstructive sleep apnea) PAD (peripheral artery disease) Presence of permanent cardiac pacemaker Presence of permanent cardiac pacemaker Pressure injury of deep tissue of buttock Pressure ulcer, stage II, skin breakdown Pulmonary embolism Respiratory failure Respiratory failure with hypoxia and hypercapnia Sick sinus syndrome Urinary tract infection due to ESBL Klebsiella Surgical History History of total knee replacement Social History Household Members: Unknown / Unable to assess Housing: Other Housing Other:: SNF Are you a primary rn coronary care unit to a significant other at home: No Do you presently have visiting nurse or other home services: No Unable to assess alcohol history related to: Unable to respond Alcohol intake: unknown Patient Tobacco Use Status: Former Tobacco user Quit Date: 30years ago Tobacco use type: Cigarette Cigarette Packs Per Day: 20 Cigarettes Per Day: 400.0 Years Smoked: 20 Smoked in Last 30 Days: No e-Cigarette/Vaping Use: Never Used Patient Interested in Nicotine Replacement: No Patient Given Instructions on How to Stop Smoking: No Second Hand Smoke Exposure: No Use of substances other than those prescribed or required for medical reasons: No Substance Use Type: Unknown Currently Displaying Signs/Symptoms of Drug Intoxication Withdrawal: No Any prior treatment program specific to substance use: No Have you been hit, kicked, punched, or otherwise hurt by someone within the past year? If so, by whom?: No Do you feel safe in your current relationship?: No Current Relationship Is there a partner from a previous relationship who is making you feel unsafe now?: No Are you made to feel afraid or neglected: No Advance Directives: Yes Advance Directives on File: Yes Advance Directives Date on File: 01/07/23 Do you have thoughts of harming others: None Do you have a plan to hurt others: No Plan Recently lost weight without trying: No Eating poorly because of decreased appetite: No Nutrition Risks: No Nutritional Risk Patient : No : No Poor oral hygiene: No service: No Current occupational status: disabled Meds Allergies Allergy/AdvReac Type Severity Reaction Status Date / Time latex Allergy Unknown Unknown Verified 10/21/22 13:48 adhesive tape AdvReac Unknown Unknown Verified 10/21/22 13:48 bupropion [From Wellbutrin] AdvReac Unknown Unknown Verified 10/21/22 13:48 ibuprofen AdvReac Unknown Unknown Verified 10/21/22 13:48 Home Medications Medication Instructions Recorded Confirmed Last Taken Type acetaminophen 325 mg tablet 650 mg PO Q4H PRN Fever Or Pain 11/18/21 01/24/23 Unknown History atorvastatin 80 mg tablet 80 mg PO BEDTIME 11/18/21 01/24/23 Unknown History ferrous sulfate 325 mg (65 mg 325 mg PO DAILY 11/18/21 01/24/23 Unknown History iron) tablet gabapentin 300 mg capsule 300 mg PO DAILY@1200 11/18/21 01/24/23 Unknown History gabapentin 300 mg capsule 600 mg PO BID 11/18/21 01/24/23 Unknown History insulin lispro 100 unit/mL See Protocol subcut QIDACHS 11/18/21 01/24/23 Unknown History subcutaneous pen melatonin 3 mg tablet 3 mg PO BEDTIME 11/18/21 01/24/23 Unknown History polyethylene glycol 3350 17 gram 17 g PO DAILY PRN Constipation 11/18/21 01/24/23 Unknown History oral powder packet (Miralax) sennosides 8.6 mg tablet (senna) 17.2 mg PO DAILY PRN Constipation 11/18/21 01/24/23 Unknown History sertraline 100 mg tablet 200 mg PO DAILY 11/18/21 01/24/23 Unknown History tizanidine 4 mg tablet 4 mg PO BEDTIME PRN Muscle Spasm 11/18/21 01/24/23 Unknown History aspirin 81 mg chewable tablet 81 mg PO DAILY 01/05/22 01/24/23 Unknown History megestrol 400 mg/10 mL (10 mL) 400 mg PO TID 01/05/22 01/24/23 Unknown History oral suspension bupropion HCl 300 mg 24 hr tablet, 300 mg PO DAILY 04/09/22 01/24/23 Unknown History extended release insulin lispro 100 unit/mL 5 unit subcut TIDAC 04/09/22 01/24/23 Unknown History subcutaneous solution Lactobacillus rhamnosus GG 10 1 cap PO BID 10/09/22 01/24/23 Unknown History billion cell capsule (Culturelle) bupropion HCl 150 mg 24 hr tablet, 1 tab PO DAILY 10/09/22 01/24/23 Unknown History extended release ipratropium 0.5 mg-albuterol 3 mg 3 ml inhalation TID 10/09/22 01/24/23 Unknown History (2.5 mg base)/3 mL nebulization soln potassium chloride 10 mEq 10 meq PO DAILY 10/09/22 01/24/23 Unknown History tablet,extended release bisacodyl 10 mg rectal suppository 10 mg WA DAILY PRN Constipation 10/21/22 01/24/23 Unknown History magnesium citrate (Citrate of 150 ml PO DAILY PRN Constipation 10/21/22 01/24/23 Unknown History Magnesia oral) fluticasone 113 mcg-salmeterol 14 1 inh inhalation BID 11/09/22 01/24/23 Unknown History mcg/actuation breath activated powdr (AirDuo RespiClick) magnesium hydroxide 400 mg/5 mL 30 ml PO DAILY PRN Constipation 11/09/22 01/24/23 Unknown History oral suspension (Milk of Magnesia) sodium phosphates 19 gram-7 118 ml WA DAILY PRN Constipation 11/09/22 01/24/23 Unknown History gram/118 mL enema (Fleet Enema) metformin 500 mg tablet 500 mg PO BID 12/27/22 01/24/23 Unknown History semaglutide 0.25 mg or 0.5 mg (2 0.25 mg subcut WE 12/27/22 01/24/23 Unknown History mg/3 mL) subcutaneous pen injector (Ozempic) aripiprazole 2 mg tablet 2 mg PO DAILY 01/12/23 01/24/23 Unknown History Physical Exam Vital Signs and Narrative: Vital Signs: Last Vital Signs Temp 97.2 F 01/24/23 15:33 Pulse 72 01/24/23 15:33 Resp 19 01/24/23 15:51 BP 158/68 H 01/24/23 15:33 Pulse Ox 93 01/24/23 15:33 O2 Del Method BiPAP 01/24/23 15:33 FiO2 30 01/24/23 15:33 Oxygen Flow Rate 4 01/24/23 11:37 BMI result Body Mass Index 54.3 Constitutional:??Somnolent but arousable, confused, uncomfortable looking, in mild respiratory distress. Mental Status:?Oriented to person and time only, not to place or situation. Eyes:?Pupils are equal, round, and reactive to light. Ear, Nose, and Throat:?Oropharynx clear, mucous membranes dry. Ears and nose without deformities. Trachea midline. Respiratory:?Clear to auscultation bilaterally, but auscultation limited d/t body habitus. Cardiovascular:?S1, S2, but auscultation limited d/t body habitus. Gastrointestinal:?Abdomen soft, non-tender, non-distended, obese. Normal bowel sounds. Neurologic:?Cranial nerves II-XII are grossly intact bilaterally. No focal neurological deficits. Moves all extremities spontaneously. Skin:?Warm, dry. Extremities:?Lower extremities covered in HEATHER wraps bilaterally, no pitting edema appreciated. . Psychiatric:??Confused, cooperative. Results Labs 01/24/23 11:58 01/24/23 11:58 Labs: Laboratory Results - last 24 hr 01/24/23 01/24/23 01/24/23 11:52 11:58 11:58 MCV 98.2 H MCH 28.9 MCHC 29.5 L RDW 15.3 Plt Count 313 D MPV 9.9 Absolute Nucleated RBC 0.080 H Nucleated RBC % (auto) 1.0 H VBG pH 7.24 L VBG pCO2 75 VBG pO2 66 VBG HCO3 32 H VBG O2 Saturation 91.0 VBG Base Excess 2.9 Anion Gap 10 L Estim Creat Clear Calc 99.7 Estimated GFR > 60 Random Glucose 148 H Calcium 9.1 D Troponin I High Sens B-Natriuretic Peptide 01/24/23 01/24/23 01/24/23 11:58 11:58 15:36 MCV MCH MCHC RDW Plt Count MPV Absolute Nucleated RBC Nucleated RBC % (auto) VBG pH 7.32 VBG pCO2 60 VBG pO2 52 VBG HCO3 31 H VBG O2 Saturation 84.0 VBG Base Excess 4.2 Anion Gap Estim Creat Clear Calc Estimated GFR Random Glucose Calcium Troponin I High Sens 17.2 H B-Natriuretic Peptide 40 Imaging Radiologist's Impressions: Impressions Chest X-Ray 01/24/23 12:04 IMPRESSION: 1. Cardiomegaly with mild pulmonary vascular congestion. 2. Platelike atelectasis right midlung and compressive atelectasis left lung base. Assessment and Plan (1) Acute hypercapnic respiratory failure: Status: Acute (2) Metabolic encephalopathy: Status: Inactive Plan Pt is a 62-year-old female with a PMH significant for?COPD on 4-6L home O2, respiratory failure with hypercapnia, insulin-dependent diabetes type 2, HTN, HLD, HFpEF,?Heart block AV third degree,?dual chamber pacemaker, decubitus ulcer, morbid obesity, obesity hypoventilation syndrome, and ESBL UTI who presents to the ED from SNF with altered mental status, increased lethargy, and hypoxia. Pt will be admitted in the hospital for acute metabolic encephalopathy in the setting of acute on chronic hypoxic/hypercapnic respiratory failure. Acute on chronic hypoxic/hypercarbic respiratory failure Patient with increasing hypoxia, lethargy, confusion at SNF while on 4 L supplemental O2 Patient initially placed on BiPAP in the in the ED with improved breathing Patient on home BiPAP at night and for naps, 4-8 L NC otherwise Patient now on 3L NC, titrate supplemental O2 between 88 and no more than 93% BiPAP at bedtime while in the hospital Monitor respiratory status Acute metabolic encephalopathy Likely secondary to hypoxic/hypercarbic respiratory failure Treat as above Diet Patient made NPO pending swallow screen at this time due to altered mentation If pt fails nurse swallow screen, will get speech swallow screen tomorrow During last admission Nutrition suggested adding p.o. protein such as Ensure max b.i.d. d/t patient at increased nutritional risk d/t pressure injury Hx of ESBL UTI UA not yet collected Check UA when available HFpEF Does not appear to be in acute exacerbation: BNP negative, chest x-ray negative, no lower leg edema Continue home furosemide Low-salt diet Insulin-dependent diabetes type 2 Hold home meds SSI, Lantus Diabetic diet Essential HTN Continue enalapril, amlodipine HLD Continue statin Morbid obesity Advice weight loss advised d/t impact on above health issues Mood disorder Continue home meds Skin breakdown/sacral decubitus ulcer Patient position every 2 hours Air loss mattress Zinc oxide and foam dressing DNR/DNI Attending?Dr. Baldwin DVT Prophylaxis: Lovenox Pt will require a hospitalization of at least two nights for treatment of?acute metabolic encephalopathy in the setting of acute on chronic hypoxic hypercapnic respiratory failure. Time Spent With Patient Time: Total time managing care of this patient today ____ minutes. Quality Stroke Does the patient have a stroke diagnosis?: No VTE Prior VTE?: No VTE Risk Level:: Medical - moderate - high VTE Device Contraindication: Treatment Not Indicated VTE Drug Contraindication: N/A - Med Ordered
--- NOTE | 2023-01-24 17:13 | PC.RT ---
Pt trialed off BIPAP placed on 3L NC sat 90-93 NO visible WOB
[2023-01-24] MEDS: Enoxaparin Sodium 40 MG/0.4 ML SYRINGE SUBCUT (18:02)
--- NOTE | 2023-01-24 18:21 | PC.NURSE ---
First attempt at nurse to nurse
--- NOTE | 2023-01-24 18:54 | PC.NURSE ---
RN to RN report given to Agata.
--- NOTE | 2023-01-24 19:23 | PC.NURSE ---
assumed care of pt report given prior to assuming care of pt to be transported to inpt
[2023-01-24] MEDS: Albuterol/Iprat 2.5/0.5MG 3 ML AMPUL.NEB INHALE (19:53)
[2023-01-24 20:47] LABS: Glucose, Whole Blood 97 mg/dL (60-115)
[2023-01-24 21:01] LABS: Troponin-I High Sensitivity 17.8 ng/L (<3.5-17.0)
[2023-01-24] MEDS: OLANZapine 10 MG VIAL IM (21:46)
[2023-01-24] MEDS: 0.9 % Sodium Chloride Flush 3 ML SYRINGE IVFLUSH (21:48)
--- NOTE | 2023-01-24 22:00 | PC.NURSE ---
pt came up with bed from ED. bilateral leg with ronel wrapped. left elbow and forearm covered by foam dressing. D/C/I, pt has been very confused. she's yelling out crying, cursing to staff, and took off the Bipap. dr Butler and candle making supervisor notified. stat order IM Olanzapine 10mg. given by this nurse. camera in the room. will closely monitor through out the night.
[2023-01-24] MEDS: LORazepam 2 MG/ML VIAL 1 MG IVPUSH (22:46)
--- NOTE | 2023-01-24 22:51 | PC.NURSE ---
pt took off NC and Bipap desat 73% to 80% still agitated. dr Butler notified ordered 1mg ativan given by this nurse. RT at the bedside. pt refused to put Bipap on. now O2 3L via NC, O2 91%. will closely monitor O2 sat.
--- NOTE | 2023-01-24 23:05 | PC.RT ---
Addendum entered by Jason Julio 01/24/23 23:07: /RN AWARE Original Note: Pt refusing AVAP/BIPAP, pt constantly pulling off NC and desatting into low 80s. Planning to reassess and place AVAPS/Bipap back onto patient.
[2023-01-25] VITALS (11 sets, daily range): BP systolic 127–163; BP diastolic 69–74; PULSE 69–90; RESP 17–26; TEMP 36.2–36.8; O2SAT 90–95
[2023-01-25 07:40] LABS: Glucose, Whole Blood 68 mg/dL (60-115)
[2023-01-25] MEDS: Albuterol/Iprat 2.5/0.5MG 3 ML AMPUL.NEB INHALE ×3 (07:58→18:56)
--- NOTE | 2023-01-25 08:15 | P.PNIM_ITS ---
Subjective Subjective Date of Service: 01/26/23 Interval History: f/u on acute hypoxic resp failure on chronic resp failure, seems better Physical Exam Vital Signs: Vital Signs: Last Vital Signs Temp 98.2 F 01/25/23 04:00 Pulse 87 01/25/23 08:04 Resp 20 01/25/23 08:04 BP 138/68 01/24/23 19:57 Pulse Ox 92 01/25/23 04:00 O2 Del Method Room Air 01/25/23 04:00 O2 Flow Rate 2 01/24/23 19:57 FiO2 30 01/24/23 15:33 Oxygen Flow Rate 4 01/24/23 11:37 BMI result Body Mass Index 54.3 Const: Other: General: AO X 2, no acute distress, morbidly obese Resp: CTA bilateral CVS: S1,S2,RRR GI: +BS, NT, no distention Skin: No rash Neuro: motor grossly intact Psych: appropriate affect Objective Data Active Medications Acetaminophen (Acetaminophen 325 Mg Tablet) 650 mg PO Q4H PRN PRN Reason: Fever Or Pain Acetazolamide (Acetazolamide 250 Mg Tablet) 500 mg PO BID [facility] Last Admin: 01/24/23 21:27 Dose: Not Given Documented By: SHABBIR Non-Admin Reason: NPO Albuterol/Ipratropium (Albuterol/Iprat 2.5/0.5mg 3 Ml Ampul.Neb) 3 ml INHALE TID [facility] Last Admin: 01/25/23 07:58 Dose: 3 ml Documented By: IMELDA Amlodipine Besylate (Amlodipine Besylate 5 Mg Tablet) 5 mg PO DAILY [facility]; Protocol Aripiprazole (Aripiprazole 2 Mg Tablet) 2 mg PO DAILY [facility] Aspirin (Aspirin 81 Mg Tab.Chew) 81 mg PO DAILY [facility] Atorvastatin Calcium (Atorvastatin Calcium 80 Mg Tablet) 80 mg PO BEDTIME [facility] Last Admin: 01/24/23 21:27 Dose: Not Given Documented By: SHABBIR Non-Admin Reason: NPO Bisacodyl (Bisacodyl 10 Mg Supp.Rect) 10 mg MN DAILY PRN PRN Reason: Constipation Bupropion HCl (Bupropion Hcl Xl 150 Mg Tab.Er.24h) 150 mg PO DAILY [facility] Bupropion HCl (Bupropion Hcl Xl 300 Mg Tab.Er.24h) 300 mg PO DAILY [facility] Empagliflozin (Empagliflozin 10 Mg Tablet) 10 mg PO DAILY [facility] Enoxaparin Sodium (Enoxaparin Sodium 40 Mg/0.4 Ml Syringe) 40 mg SUBCUT Q24H [facility] Last Admin: 01/24/23 18:02 Dose: 40 mg Documented By: SYDNEY Ferrous Sulfate (Ferrous Sulfate 324 Mg Tablet.Dr) 324 mg PO DAILY [facility] Fluticasone/Vilanterol (Fluticasone/Vilanterol 100/25 Blst.W.Dev) 1 puff INHALE RDAILY [facility] Furosemide (Furosemide 40 Mg Tablet) 40 mg PO DAILY [facility]; Protocol Gabapentin (Gabapentin 300 Mg Capsule) 300 mg PO DAILY@1200 ROSSY Gabapentin (Gabapentin 300 Mg Capsule) 600 mg PO BID [facility] Last Admin: 01/24/23 21:27 Dose: Not Given Documented By: SHABBIR Non-Admin Reason: NPO Glucose (Glucose Gel 15 Gm Gel..Gram.) 15 gm PO Q15M PRN; Protocol PRN Reason: per Hypoglycemia Standing Ord. Dextrose (D10) 250 mls @ 750 mls/hr IV Q15M PRN; Protocol PRN Reason: per Hypoglycemia Standing Ord. Insulin Glargine (Insulin Glargine,Hum.Rec.Anlog 100 Unit/Ml 10 Ml Vial) 28 unit SUBCUT DAILY [facility] Insulin Human Lispro (Insulin Lispro 100 Unit/Ml 3 Ml Vial) 0 unit SUBCUT QIDACHS [facility]; Protocol Last Admin: 01/24/23 21:27 Dose: Not Given Documented By: SHABBIR Non-Admin Reason: No Insulin Coverage Magnesium Hydroxide (Milk Of Magnesia 30 Ml Oral.Susp) 30 ml PO DAILY PRN PRN Reason: Constipation Megestrol Acetate (Megestrol Acetate 400 Mg/10 Ml Oral.Susp) 400 mg PO TID [facility] Last Admin: 01/24/23 21:27 Dose: Not Given Documented By: SHABBIR Non-Admin Reason: NPO Melatonin (Melatonin 3 Mg Tablet) 3 mg PO BEDTIME [facility] Last Admin: 01/24/23 21:27 Dose: Not Given Documented By: SHABBIR Non-Admin Reason: NPO Ondansetron HCl (Ondansetron Hcl 4 Mg/2 Ml Vial) 4 mg IVPUSH Q8H PRN PRN Reason: Nausea and Vomiting Pharmacy Consult (Consult Rx Perform Med Rec) 1 each MISCELLANE ONCE PRN PRN Reason: Consult order Polyethylene Glycol (Polyethylene Glycol 3350 17 Gm Powd.Pack) 17 gm PO DAILY PRN PRN Reason: Constipation Potassium Chloride (Potassium Chloride Er 10 Meq Tablet.Er) 10 meq PO DAILY ROSSY Senna (Sennosides 8.6 Mg Tablet) 17.2 mg PO DAILY PRN PRN Reason: Constipation Sertraline HCl (Sertraline Hcl 100 Mg Tablet) 200 mg PO DAILY ROSSY Sodium Biphosphate/Sodium Phosphate (Sodium Phosphate,[place]-Dibasic 133 Ml Enema) 118 ml MN DAILY PRN PRN Reason: Constipation Sodium Chloride (0.9 % Sodium Chloride Flush 3 Ml Syringe) 3 ml IVFLUSH QSHIFT [facility] Last Admin: 01/24/23 21:48 Dose: 3 ml Documented By: SHABBIR Tizanidine HCl (Tizanidine Hcl 4 Mg Tablet) 4 mg PO BEDTIME PRN PRN Reason: Muscle Spasm Labs 01/24/23 11:58 01/24/23 11:58 Labs: Laboratory Results - last 24 hr 01/24/23 01/24/23 01/24/23 11:52 11:58 11:58 MCV 98.2 H MCH 28.9 MCHC 29.5 L RDW 15.3 Plt Count 313 D MPV 9.9 Absolute Nucleated RBC 0.080 H Nucleated RBC % (auto) 1.0 H VBG pH 7.24 L VBG pCO2 75 VBG pO2 66 VBG HCO3 32 H VBG O2 Saturation 91.0 VBG Base Excess 2.9 Anion Gap 10 L Estim Creat Clear Calc 99.7 Estimated GFR > 60 POC Glucose Random Glucose 148 H Calcium 9.1 D Troponin I High Sens B-Natriuretic Peptide 01/24/23 01/24/23 01/24/23 11:58 11:58 15:36 MCV MCH MCHC RDW Plt Count MPV Absolute Nucleated RBC Nucleated RBC % (auto) VBG pH 7.32 VBG pCO2 60 VBG pO2 52 VBG HCO3 31 H VBG O2 Saturation 84.0 VBG Base Excess 4.2 Anion Gap Estim Creat Clear Calc Estimated GFR POC Glucose Random Glucose Calcium Troponin I High Sens 17.2 H B-Natriuretic Peptide 40 01/24/23 01/24/23 01/25/23 20:34 20:43 07:28 MCV MCH MCHC RDW Plt Count MPV Absolute Nucleated RBC Nucleated RBC % (auto) VBG pH VBG pCO2 VBG pO2 VBG HCO3 VBG O2 Saturation VBG Base Excess Anion Gap Estim Creat Clear Calc Estimated GFR POC Glucose 97 68 Random Glucose Calcium Troponin I High Sens 17.8 H B-Natriuretic Peptide Assessment and Plan (1) Respiratory failure: Status: Acute (2) Hypercarbia: Status: Acute (3) Acute hypercapnic respiratory failure: Status: Acute Plan 62-year-old female with a PMH significant for?COPD on 4-6L home O2, respiratory failure with hypercapnia, insulin-dependent diabetes type 2, HTN, HLD, HFpEF,?Heart block AV third degree,?dual chamber pacemaker, decubitus ulcer, morbid obesity, obesity hypoventilation syndrome, and ESBL UTI who presents to the ED from SNF with altered mental status, increased lethargy, and hypoxia. Pt will be admitted in the hospital for acute metabolic encephalopathy in the setti ng of acute on chronic hypoxic/hypercapnic respiratory failure. Acute on chronic hypoxic/hypercarbic respiratory failure from exacerbation copd and hypoventilation syndrome -Bipap at night and PRN during the day -Bronchodilators and STeroid Acute metabolic encephalopathy Likely secondary to hypoxic/hypercarbic respiratory failure Treat underlying issue above Hx of ESBL UTI UA not yet collected Check UA when available HFpEF--compensated Insulin-dependent diabetes type 2 Hold home meds SSI, Lantus Diabetic diet Essential HTN Continue enalapril, amlodipine HLD Continue statin Morbid obesity Advice weight loss advised d/t impact on above health issues Mood disorder Continue home meds Skin breakdown/sacral decubitus ulcer Patient position every 2 hours Air loss mattress Zinc oxide and foam dressing DNR/DNI Attending?Dr. Baldwin DVT Prophylaxis: Lovenox need for inpatient: acute hypoxic resp failure needing rescue bipap Time Spent With Patient Time: Total time managing care of this patient today ____ minutes. Quality Stroke Does the patient have a stroke diagnosis?: No VTE Prior VTE?: No VTE Risk Level:: Medical - moderate - high VTE Device Contraindication: Treatment Not Indicated VTE Drug Contraindication: N/A - Med Ordered
[2023-01-25 08:48] LABS: Anion Gap 12 (12-20); Blood Urea Nitrogen 18 mg/dL (9-16); Carbon Dioxide 31 mmol/L (22-29); Chloride 105 mmol/L (96-108); Creatinine Clr Calc Pharmacy 110.2; Estimated Glomerular Filt Rate > 60; Glucose Random 60 mg/dL (60-115); Sodium 144 mmol/L (135-145)
[2023-01-25] MEDS: 0.9 % Sodium Chloride Flush 3 ML SYRINGE IVFLUSH ×3 (09:25→20:59)
[2023-01-25] MEDS: acetaZOLAMIDE 250 MG TABLET 500 MG PO ×2 (09:26→20:59)
[2023-01-25] MEDS: Ferrous Sulfate 324 MG TABLET.DR PO (09:26)
[2023-01-25] MEDS: buPROPion HCl XL 300 MG TAB.ER.24H PO (09:26)
[2023-01-25] MEDS: ARIPiprazole 2 MG TABLET PO (09:26)
[2023-01-25] MEDS: Megestrol Acetate 400 MG/10 ML ORAL.SUSP PO ×2 (09:26→20:58)
[2023-01-25] MEDS: Sertraline HCL 100 MG TABLET 200 MG PO (09:27)
[2023-01-25] MEDS: Furosemide 40 MG TABLET PO (09:27)
[2023-01-25] MEDS: Aspirin 81 MG TAB.CHEW PO (09:31)
[2023-01-25] MEDS: amLODIPine Besylate 5 MG TABLET PO (09:31)
[2023-01-25] MEDS: Potassium Chloride ER 10 MEQ TABLET.ER PO (09:31)
[2023-01-25] MEDS: Empagliflozin 10 MG TABLET PO (09:31)
[2023-01-25] MEDS: buPROPion HCl XL 150 MG TAB.ER.24H PO (09:31)
[2023-01-25] MEDS: Gabapentin 300 MG CAPSULE 600 MG PO ×2 (09:32→20:59)
[2023-01-25] MEDS: Insulin Glargine,Hum.rec.anlog 100 UNIT/ML 10 ML VIAL 28 UNIT SUBCUT (09:32)
[2023-01-25 11:24] LABS: Glucose, Whole Blood 109 mg/dL (60-115)
--- NOTE | 2023-01-25 12:49 | MHC.CM.PN ---
PT REPORTS SHE IS A RESIDENT OF [facility] SHE USES A BIPAP AND A WHEEL CHAIR SHE HAS A MOLST ON FILE PCP: ANJEL VIDAL SHE IS COVID [facility] IMM DELIVERED DCP: RETURN TO [facility] VIA BLS
[2023-01-25 16:07] LABS: Glucose, Whole Blood 65 mg/dL (60-115)
[2023-01-25 16:36] LABS: Venous Blood Gas Refer to POC result
[2023-01-25 16:37] LABS: VBG Base Excess 4.9 mmol/L; VBG HCO3 28 mmol/L (22-26); VBG pCO2 36 mmHg; VBG pH 7.49 (7.32-7.43); VBG pO2 129 mmHg
[2023-01-25] MEDS: Enoxaparin Sodium 40 MG/0.4 ML SYRINGE SUBCUT (17:13)
[2023-01-25 20:27] LABS: Glucose, Whole Blood 211 mg/dL (60-115)
[2023-01-25] MEDS: Atorvastatin Calcium 80 MG TABLET PO (20:59)
[2023-01-25] MEDS: Melatonin 3 MG TABLET PO (20:59)
[2023-01-25] MEDS: Insulin Lispro 100 UNIT/ML 3 ML VIAL SUBCUT (21:15)
[2023-01-26] VITALS (11 sets, daily range): BP systolic 138–166; BP diastolic 69–87; PULSE 74–90; RESP 17–26; TEMP 36–36.6; O2SAT 91–97
--- NOTE | 2023-01-26 06:21 | PC.NURSE ---
pt slept whole night with BIPAP, not much void, purewick intack 30 mL out put, checked bladder 363 mL residual, notified dr. Knowles, told me to wait 2 -3 hr. will monitor.
[2023-01-26 07:45] LABS: Glucose, Whole Blood 105 mg/dL (60-115)
[2023-01-26] MEDS: Albuterol/Iprat 2.5/0.5MG 3 ML AMPUL.NEB INHALE ×3 (08:15→19:01)
[2023-01-26] MEDS: Fluticasone/Vilanterol 100/25 BLST.W.DEV 1 PUFF INHALE (08:15)
[2023-01-26] MEDS: Ferrous Sulfate 324 MG TABLET.DR PO (10:02)
[2023-01-26] MEDS: Megestrol Acetate 400 MG/10 ML ORAL.SUSP PO ×3 (10:02→20:45)
[2023-01-26] MEDS: acetaZOLAMIDE 250 MG TABLET 500 MG PO ×2 (10:02→20:45)
[2023-01-26] MEDS: 0.9 % Sodium Chloride Flush 3 ML SYRINGE IVFLUSH ×3 (10:02→20:46)
[2023-01-26] MEDS: buPROPion HCl XL 300 MG TAB.ER.24H PO (10:02)
[2023-01-26] MEDS: Empagliflozin 10 MG TABLET PO (10:03)
[2023-01-26] MEDS: amLODIPine Besylate 5 MG TABLET PO (10:03)
[2023-01-26] MEDS: Aspirin 81 MG TAB.CHEW PO (10:03)
[2023-01-26] MEDS: Furosemide 40 MG TABLET PO (10:04)
[2023-01-26] MEDS: Potassium Chloride ER 10 MEQ TABLET.ER PO (10:04)
[2023-01-26] MEDS: buPROPion HCl XL 150 MG TAB.ER.24H PO (10:04)
[2023-01-26] MEDS: ARIPiprazole 2 MG TABLET PO (10:04)
[2023-01-26] MEDS: Sertraline HCL 100 MG TABLET 200 MG PO (10:04)
[2023-01-26] MEDS: Gabapentin 300 MG CAPSULE 600 MG PO ×2 (10:18→20:46)
[2023-01-26 11:22] LABS: Glucose, Whole Blood 194 mg/dL (60-115)
[2023-01-26] MEDS: Insulin Glargine,Hum.rec.anlog 100 UNIT/ML 10 ML VIAL 28 UNIT SUBCUT (11:57)
[2023-01-26] MEDS: Insulin Lispro 100 UNIT/ML 3 ML VIAL SUBCUT ×3 (11:57→20:46)
[2023-01-26 16:15] LABS: Glucose, Whole Blood 233 mg/dL (60-115)
[2023-01-26] MEDS: Enoxaparin Sodium 40 MG/0.4 ML SYRINGE SUBCUT (16:48)
[2023-01-26 20:17] LABS: Glucose, Whole Blood 299 mg/dL (60-115)
[2023-01-26] MEDS: Atorvastatin Calcium 80 MG TABLET PO (20:46)
[2023-01-26] MEDS: Melatonin 3 MG TABLET PO (20:46)
[2023-01-27 03:40] VITALS: BP 142/71; PULSE 74; RESP 18; TEMP 36.1; O2SAT 96
[2023-01-27 04:54] VITALS: PULSE 74; RESP 20; O2SAT 97
[2023-01-27 07:04] VITALS: BP 170/85; PULSE 74; RESP 19; TEMP 36; O2SAT 94
[2023-01-27 07:23] LABS: Glucose, Whole Blood 174 mg/dL (60-115)
[2023-01-27 07:34] VITALS: PULSE 84; RESP 18; O2SAT 91
[2023-01-27] MEDS: Fluticasone/Vilanterol 100/25 BLST.W.DEV 1 PUFF INHALE (07:34)
[2023-01-27] MEDS: Albuterol/Iprat 2.5/0.5MG 3 ML AMPUL.NEB INHALE (07:34)
[2023-01-27] MEDS: Insulin Lispro 100 UNIT/ML 3 ML VIAL SUBCUT ×2 (08:24→11:36)
[2023-01-27] MEDS: buPROPion HCl XL 150 MG TAB.ER.24H PO (08:25)
[2023-01-27] MEDS: Insulin Glargine,Hum.rec.anlog 100 UNIT/ML 10 ML VIAL 28 UNIT SUBCUT (08:25)
[2023-01-27] MEDS: Megestrol Acetate 400 MG/10 ML ORAL.SUSP PO (08:25)
[2023-01-27] MEDS: Aspirin 81 MG TAB.CHEW PO (08:26)
[2023-01-27] MEDS: acetaZOLAMIDE 250 MG TABLET 500 MG PO (08:26)
[2023-01-27] MEDS: Empagliflozin 10 MG TABLET PO (08:26)
[2023-01-27] MEDS: Sertraline HCL 100 MG TABLET 200 MG PO (08:26)
[2023-01-27] MEDS: Potassium Chloride ER 10 MEQ TABLET.ER PO (08:27)
[2023-01-27] MEDS: Furosemide 40 MG TABLET PO (08:27)
[2023-01-27] MEDS: Ferrous Sulfate 324 MG TABLET.DR PO (08:27)
[2023-01-27] MEDS: ARIPiprazole 2 MG TABLET PO (08:27)
[2023-01-27] MEDS: buPROPion HCl XL 300 MG TAB.ER.24H PO (08:27)
[2023-01-27] MEDS: amLODIPine Besylate 5 MG TABLET PO (08:27)
[2023-01-27] MEDS: 0.9 % Sodium Chloride Flush 3 ML SYRINGE IVFLUSH (08:28)
[2023-01-27] MEDS: Gabapentin 300 MG CAPSULE 600 MG PO (08:29)
--- NOTE | 2023-01-27 09:46 | PM.DS ---
DS: Providers Provider Date of Service: 01/27/23 Date of admission: 01/24/23 17:36 Primary care physician: Tita Bal MD DS: Diagnosis Discharge Diagnosis (1) Respiratory failure: Status: Acute (2) Hypercarbia: Status: Acute (3) Acute hypercapnic respiratory failure: Status: Acute DS: Summary Hospital Course Hospital Course: Chief Complaint: Hypoxia Pt is a 62-year-old female with a PMH significant for?COPD on 4-6L home O2, respiratory failure with hypercapnia, insulin-dependent diabetes type 2, HTN, HLD, HFpEF,?Heart block AV third degree,?dual chamber pacemaker, decubitus ulcer, morbid obesity, obesity hypoventilation syndrome, and ESBL UTI who presents to the ED from SNF with altered mental status, increased lethargy, and hypoxia. Pt currently alert and oriented towards self and time, not to place or situation; pt incapable of providing accurate HPI, which is obtained from chart and provider review.? Pt noted by staff at SNF to be increasingly confused and hypoxic with O2 sat in the 80s.?In the ED patient was placed on BiPAP with improvement to symptoms. Was eventually weaned from BiPAP and placed on 3L NC and satting at 92%. Pt's mentation has not yet returned to baseline. Of note, patient is well-known to the hospital and presented on 01/12/2023 with similar symptoms. In the ED patient was afebrile, but tachypneic up to 26, tachycardic up to 101, hypertensive to 158/68, and hypoxic at 88% O2 on 4 L NC. Labs were significant for bicarb of 33, initial troponin 17.2.? No leukocytosis, stable H&H.? Renal function baseline.? BNP WNL at 40.? VBG with pH of 7.2 and HC03 32, repeat with pH 7.32 with HC03 of 31.? UA pending.? CXR showed cardiomegaly with mild pulmonary vascular congestion and platelike atelectasis in right mid lung and compressive atelectasis in left lung base. EKG demonstrated normal sinus rhythm with chronic left bundle branch block, similar to previous EKGs. Pt was treated with BiPAP and Ventolin.? Pt will be admitted to the hospital Hospital course: Acute on chronic hypoxic and hypercarbic respiratory failure from exacerbation copd and obesity hypoventilation syndrome. She was treated with rescue BiPAP, she was assess by ICU on presentation with no indication for ICU admission. She was requires BiPAP at night. Additionally treated with corticosteroid and bronchodilators for COPD. She is doing much better at present and will transition to oral steroid and continue use of BiPAP at night, to continue oxygen with goal of O2 saturation around 93%. Acute metabolic encephalopathy--related hypercarbia and hypoxia, she is better, lucid this morning, alert and oriented x 3. Hx of ESBL UTI--Culture during this hospitalization is negative. HFpEF--compensated, no acute exacerbation- Insulin-dependent diabetes type 2--resume usual meds Essential HTN Continue enalapril, amlodipine HLD Continue statin Morbid obesity Advice weight loss advised d/t impact on above health issues, probably through calory reduction Mood disorder Continue home meds Skin breakdown/sacral decubitus ulcer--present on admission Patient position every 2 hours Air loss mattress recommended Zinc oxide and foam dressing Time Spent with Patient Time attestation: Total time managing care of this patient today ____ minutes. Discharge coordination time: Greater than 30 minutes Quality: Safe Use of Opioids Does Pt have an Active Cancer Diagnosis on the Problem List?: No Quality: Stroke Does the patient have a stroke diagnosis?: No Physical Exam Vital Signs: Vital Signs: Last Vital Signs Temp 96.8 F 01/27/23 07:04 Pulse 84 01/27/23 07:34 Resp 18 01/27/23 07:34 BP 170/85 H 01/27/23 07:04 Pulse Ox 94 01/27/23 07:04 O2 Del Method Nasal Cannula 01/27/23 07:04 O2 Flow Rate 3 01/27/23 07:04 FiO2 30 01/24/23 15:33 Oxygen Flow Rate 4 01/24/23 11:37 BMI result Body Mass Index 54.3 DS: Data Data Completed and Pending Completed studies during hospitalization [Text1]: Procedures Labs on day of discharge: Laboratory Results - last 24 hr 01/26/23 01/26/23 01/26/23 11:15 16:08 20:03 POC Glucose 194 H 233 H 299 H 01/27/23 07:05 POC Glucose 174 H Preliminary micro results at discharge 01/24/23 12:18 Blood Culture - Preliminary Blood - Venous No growth after 48 hours. 01/24/23 12:18 Blood Culture - Preliminary Blood - Venous No growth after 48 hours. Discharge Plan Discharge Anticipated Discharge Date/Time: 01/27/23 09:43 Patient Disposition: Xfer SNF Discharge Diagnosis: Acute on chronic hypoxic respiratory failure Referrals: Tita Bal MD [Primary Care Provider] - 1 Week Discharge Medications: New prednisone 20 mg tablet 20 mg PO DAILY Qty: 4 0RF Continued furosemide 40 mg Tablet 40 mg PO DAILY Qty: 30 0RF Protocol: Hold for SBP< HOLD for SBP < : 90 ipratropium-albuterol 0.5 mg-3 mg(2.5 mg base)/3 mL Solution For Nebulization 3 ml INHALATION TID potassium chloride 10 mEq Tablet Extended Release 10 meq PO DAILY Hold Instructions: Recheck K level in 1 week to decide if needed or not. Rx Instructions: recheck K level in 1 week to decide if needed or not. Culturelle 10 billion cell Capsule 1 cap PO BID bupropion HCl 150 mg tablet extended release 24 hr 1 tab PO DAILY Rx Instructions: take with 300mg; tdd 450mg magnesium hydroxide [Milk of Magnesia] 400 mg/5 mL Suspension 30 ml PO DAILY PRN (Reason: Constipation) Rx Instructions: USE IF NO BOWEL MOVEMENT FOR 3 DAYS Fleet Enema 19-7 gram/118 mL Enema 118 ml VA DAILY PRN (Reason: Constipation) Rx Instructions: IF NO BOWEL MOVEMENT 8 HOURS AFTER BISACODYL fluticasone propion-salmeterol [AirDuo RespiClick] 113-14 mcg/actuation aerosol powdr breath activated 1 inh inhalation BID Rx Instructions: rinse mouth after use AND SPIT OUT atorvastatin 80 mg Tablet 80 mg PO BEDTIME sennosides [senna] 8.6 mg Tablet 17.2 mg PO DAILY PRN (Reason: Constipation) acetaminophen 325 mg Tablet 650 mg PO Q4H PRN (Reason: Fever Or Pain) polyethylene glycol 3350 [Miralax] 17 gram Powder In Packet 17 g PO DAILY PRN (Reason: Constipation) tizanidine 4 mg Tablet 4 mg PO BEDTIME PRN (Reason: Muscle Spasm) sertraline 100 mg Tablet 200 mg PO DAILY melatonin 3 mg Tablet 3 mg PO BEDTIME ferrous sulfate 325 mg (65 mg iron) Tablet 325 mg PO DAILY gabapentin 300 mg Capsule 300 mg PO DAILY@1200 gabapentin 300 mg Capsule 600 mg PO BID insulin lispro 100 unit/mL Insulin Pen See Protocol SUBCUT QIDACHS Protocol: Insulin Correction Scale Less than or equal to 110 ---- Give (units): 0 111 to 150 Give (units): 0 151 to 200 Give (units): 0 201 to 250 Give (units): 4 251 to 300 Give (units): 6 301 to 350 Give (units): 8 Greater than 350 Give (units): 10 Call MD if Blood Glucose > : 350 Rx Instructions: SLIDING SCALE IF BLOOD GLUCOSE GREATER THAN 400, GIVE 12 UNITS AND NOTIFY MD amlodipine 5 mg Tablet 5 mg PO DAILY 30 Days Qty: 30 0RF Protocol: Hold for SBP< HOLD for SBP < : 90 aspirin 81 mg Tablet,Chewable 81 mg PO DAILY megestrol 400 mg/10 mL (10 mL) Suspension 400 mg PO TID acetazolamide 250 mg Tablet 500 mg PO BID Qty: 60 0RF aripiprazole 2 mg tablet 2 mg PO DAILY Jardiance 10 mg Tablet 10 mg PO DAILY 30 Days Qty: 30 0RF insulin glargine 100 unit/mL Solution 40 unit SUBCUT DAILY Qty: 10 0RF metformin 500 mg tablet 500 mg PO BID Ozempic 0.25 mg or 0.5 mg (2 mg/3 mL) pen injector 0.25 mg subcut WE Rx Instructions: CHANGE TO 0.50 MG STARTING 01/22/23 bisacodyl 10 mg suppository 10 mg VA DAILY PRN (Reason: Constipation) Rx Instructions: GIVE IF NO RESULT FROM MILK OF MAGNESIA magnesium citrate [Citrate of Magnesia] Solution 150 ml PO DAILY PRN (Reason: Constipation) Rx Instructions: IF NO BOWEL MOVEMENT 12 HOURS AFTER FLEET ENEMA bupropion HCl 300 mg tablet extended release 24 hr 300 mg PO DAILY Rx Instructions: take with 150mg dose; tdd 450mg insulin lispro 100 unit/mL solution 5 unit subcut TIDAC Hold Instructions: resume as needed if blood sugar persistently elevated Discharge Orders: Discharge Order (Routine); Ordered 01/27/23 Ordered By: Alexander Baldwin Diet: Advance to usual diet Activity on Discharge: As tolerated Stand Alone Forms: Patient Portal Discharge page Care Plan Goals: Recovery from acute hypoxic respiratory failure chronic respiratory failure Health Concerns: Chronic respiratory failure, hypoventilation syndrome obesity type Plan of Treatment: Continue use as BiPAP as before, finished course of steroid, continue use of bronchodilators by nebulizer. Assessment: As above
[2023-01-27] MEDS: predniSONE 20 MG TABLET PO (10:23)
--- NOTE | 2023-01-27 10:29 | MHC.CM.PN ---
Pt is medically cleared for d/c back to [facility] for a 1pm transfer time via [facility]. Pt and spouse Miah aware and in agreement of plan: Rapid COVID pending and will be sent when available.
[2023-01-27 11:12] LABS: Glucose, Whole Blood 198 mg/dL (60-115)
[2023-01-27 11:32] LABS: COVID-19 Test Negative (Negative); IDNOW Serial# 08D9AD1C
[2023-01-27] MEDS: Gabapentin 300 MG CAPSULE PO (11:36)
--- NOTE | 2023-01-27 11:58 | PC.NURSE ---
pt for discharge back to [facility] and rehab . Nursing report called to [phone] spoke with NILDA Malagon . ETA of burr picker is 1300
== END 2023-01-27 13:14 | disposition skilled nursing facility (03) | DRG 205 ==
LOC: HO.ED 16:40 → HO.EDOVER 18:05 → HO.S3 18:14
PROVIDERS: Admitting Provider Student in an Organized Health Care Education/Training Program; Emergency Provider Emergency Medicine; PCP Internal Medicine; Visit Provider Internal Medicine
DX: E66.2 Morbid (severe) obesity with alveolar hypoventilation (principal); G93.41 Metabolic encephalopathy; J96.21 Acute and chronic respiratory failure with hypoxia; J96.22 Acute and chronic respiratory failure with hypercapnia; I50.32 Chronic diastolic (congestive) heart failure; J44.1 Chronic obstructive pulmonary disease with (acute) exacerbation; I44.2 Atrioventricular block, complete; Z68.43 Body mass index [BMI] 50.0-59.9, adult; Z66 Do not resuscitate; L89.151 Pressure ulcer of sacral region, stage 1; E78.5 Hyperlipidemia, unspecified; E11.9 Type 2 diabetes mellitus without complications; I11.0 Hypertensive heart disease with heart failure; Z20.822 Contact with and (suspected) exposure to COVID-19; Z87.891 Personal history of nicotine dependence; Z99.81 Dependence on supplemental oxygen; Z91.040 Latex allergy status; Z87.440 Personal history of urinary (tract) infections; Z95.0 Presence of cardiac pacemaker; Z88.6 Allergy status to analgesic agent; Z88.8 Allergy status to other drugs, medicaments and biological substances; Z79.82 Long term (current) use of aspirin; Z79.4 Long term (current) use of insulin; Z79.51 Long term (current) use of inhaled steroids; Z79.84 Long term (current) use of oral hypoglycemic drugs; Z79.899 Other long term (current) drug therapy
CPT/HCPCS: 36415; 71045; 80048; 82803; 82947; 83880; 84484; 85027; 87040; 87635; 93005; 94640; 94660; 99285; J1650; J2060

== ENCOUNTER 2023-04-04 11:08 | Outpatient (AMB) | payer OTHER, MEDICARE, MEDICAID, SELFPAY ==
--- NOTE | 2023-04-04 11:12 | A.OFFVIS_ITS ---
Intake Vital Signs 04/04/23 11:16 BP 126/70 Blood Pressure Location Rt brachial Position Sitting Pulse 82 Pulse Source Pulse Oximeter Pulse Oximetry (%) 94 Oxygen Delivery Method Room Air Intake Visit Reasons: COPD Traffic Personnel Supervisor Required: No Quality Control Scientist: Quality Control Scientist offered & declined Accompanied by: Ambulance personel Allergies latex Allergy (Unknown, Verified 10/21/22 13:48) Unknown adhesive tape Adverse Reaction (Unknown, Verified 10/21/22 13:48) Unknown bupropion [From Wellbutrin] Adverse Reaction (Unknown, Verified 10/21/22 13:48) Unknown ibuprofen Adverse Reaction (Unknown, Verified 10/21/22 13:48) Unknown Medication List - Last Reconciled 04/04/23 by Celena Youngblood LPN acetaminophen 650 mg PO Q4H PRN acetazolamide 500 mg (2 x 250 mg) PO BID amlodipine 5 mg See Protocol PO DAILY 30 days aripiprazole 2 mg PO DAILY aspirin 81 mg PO DAILY atorvastatin 80 mg PO BEDTIME bisacodyl 10 mg VT DAILY PRN bupropion HCl 1 tab PO DAILY bupropion HCl 300 mg PO DAILY empagliflozin (Jardiance) 10 mg PO DAILY 30 days ferrous sulfate 325 mg PO DAILY fluticasone propion-salmeterol 113-14 mcg/actuation (AirDuo RespiClick) 1 inh inhalation BID furosemide 40 mg See Protocol PO DAILY gabapentin 300 mg PO DAILY@1200 gabapentin 600 mg PO BID insulin glargine 40 units (0.4 mL) subcut DAILY insulin lispro See Protocol units subcut QIDACHS insulin lispro 5 units subcut TIDAC ipratropium-albuterol 0.5 mg-3 mg(2.5 mg base)/3 mL 3 mL inhalation TID Lactobacillus rhamnosus GG (Culturelle) 1 cap PO BID magnesium citrate (Citrate of Magnesia oral) 150 mL PO DAILY PRN magnesium hydroxide (Milk of Magnesia) 30 mL PO DAILY PRN megestrol 400 mg PO TID melatonin 3 mg PO BEDTIME metformin 500 mg PO BID polyethylene glycol 3350 (Miralax) 17 grams PO DAILY PRN potassium chloride ER 10 mEq PO DAILY prednisone 20 mg PO DAILY semaglutide (Ozempic) 0.25 mg subcut WE sennosides (senna) 17.2 mg PO DAILY PRN sertraline 200 mg PO DAILY sodium phosphates 19-7 gram/118 mL (Fleet Enema) 118 mL VT DAILY PRN tizanidine 4 mg PO BEDTIME PRN HPI COPD HPI Details Bonnie is a 62 year old female, former smoker with 15 pack year history, quit in 1999 , with underlying COPD on supplemental oxygen 2-3 L, chronic respiratory failure with hypoxia and CO2 retention, SMILEY on BiPAP, morbid obesity with a BMI 51, heart failure preserved ejection fraction on diamox and lasix, third degree heart block s/p pacer. She resides at a SNF and is nonambulatory arrived on stretcher. She was referred by PCP after last hospital admission due to acute on chronic respiratory failure. She has had multiple hospital admissions due to acute on chronic respiratory failure. She was last admitted here in January, requiring BiPAP and it was recommended she continue to use at night. Overall she feels her respiratory status has slowly improved since the last admission but continues with dyspnea with minimal exertion, wheezing and dry cough. She reports using her BiPAP at the SNF but has been without the past week due to a mask issue. [facility] Medical History Acute and chronic respiratory failure with hypercapnia Acute and chronic respiratory failure with hypercapnia Acute on chronic respiratory failure with hypoxia and hypercapnia Anemia Arthritis Atelectasis of both lungs CHF (congestive heart failure) Clostridium difficile infection Depression Diabetes mellitus, type 2 Diabetic ulcer of foot associated with diabetes mellitus due to underlying condition, with fat layer exposed Heart block AV third degree Hypertension Hypertrophic nonobstructive cardiomyopathy Hypoventilation associated with obesity syndrome Metabolic encephalopathy Morbid obesity Morbid obesity Morbid obesity Obesity hypoventilation syndrome SMILEY (obstructive sleep apnea) PAD (peripheral artery disease) Presence of permanent cardiac pacemaker Presence of permanent cardiac pacemaker Pressure injury of deep tissue of buttock Pressure ulcer, stage II, skin breakdown Pulmonary embolism Respiratory failure Respiratory failure with hypoxia and hypercapnia Sick sinus syndrome Urinary tract infection due to ESBL Klebsiella Surgical History History of total knee replacement Social History Household Members: Unknown / Unable to assess Housing: Other Housing Other:: SNF Are you a primary day care center director to a significant other at home: No Do you presently have visiting nurse or other home services: No Unable to assess alcohol history related to: Unable to respond Alcohol intake: former Patient Tobacco Use Status: Former Tobacco user Quit Date: 30years ago Tobacco use type: Cigarette Cigarette Packs Per Day: 20 Cigarettes Per Day: 400.0 Years Smoked: 20 Smoked in Last 30 Days: No e-Cigarette/Vaping Use: Never Used Second Hand Smoke Exposure: No Use of substances other than those prescribed or required for medical reasons: No Substance Use Type: Unknown Advance Directives: Yes Advance Directives on File: Yes Advance Directives Date on File: 01/07/23 Patient : No service: No Current occupational status: disabled Review of Systems Const Denies chills, Denies excessive sweating, Denies fever(s) and Denies night sweats Eyes Denies dry eyes, Denies irritation and Denies itchy eyes ENT Reports Normal hearing present, Denies nasal congestion, Denies nasal discharge, Denies post nasal drip and Denies sore throat Card Denies chest pain, Denies chest pain at rest and Denies chest pain with activity Resp Denies chest congestion, Denies excessive phlegm production, Denies pain on inspiration, Denies pain with cough and Denies stridor Musc Denies myalgias Neuro Reports Normal hearing present Endo Denies excessive sweating Aller/Immun Denies itchy eyes and Denies seasonal rhinorrhea Physical Exam Vital Signs: Last Vital Signs Pulse 82 04/04/23 11:16 BP 126/70 04/04/23 11:16 Pulse Ox 94 04/04/23 11:16 Oxygen Delivery Method Room Air 04/04/23 11:16 Const Other: supine on stretcher General: cooperative, no acute distress and alert Nutritional Appearance: obese Orientation/consciousness: patient oriented x3 Limitations: physical limitations HEENT Head: Yes normal to inspection, Yes normocephalic and Yes atraumatic Ears: hearing grossly normal bilaterally and external ears normal Eyes General: appearance normal, both eyes and all related structures Eyelids: Yes eyelids normal Sclerae: sclerae normal EOM: EOMs intact bilaterally Neck Neck: Yes normal visual inspection Chest Chest palpation & inspection: normal inspection of the chest Resp Effort & Inspection: normal respiratory effort, able to speak in complete sentences, no cough, no stridor, not tachypneic, no tripod positioning and no use of accessory muscles Auscultation: diminished lung sounds Cardio Jugular venous distension: no JVD Rate: regular rate Rhythm: regular rhythm Skin Other: warm, dry General skin exam: no rashes or lesions noted Neuro General: patient oriented x3 Cranial nerves: Yes Normal hearing present Cognition (Neuro): normal cognition Psych Speech and movement: Normal speech and movement present and Clear speech present Affect: normal affect Attitude: cooperative Thought process: Normal thought process present Thought content: Normal thought content present Insight: Good insight present (Psych) Judgement: Good judgement present (Psych) Results Reviewed Results Reviewed: Bonnie Das??She/Her/Hers??62??F??1960 ? Allergy/Adv: latex, adhesive tape, bupropion, ibuprofen (More??) Close Chest X-Ray (Signed) Denzel Laws - 01/24/23 Renal Ultrasound (Signed) Hemant Roldan - 01/15/23 Chest X-Ray (Signed) Courtney Smith - 01/12/23 Chest X-Ray (Signed) Phani Prabhakar - 01/01/23 Venous Duplex (Signed) Nadine White - 12/27/22 Chest X-Ray (Signed) Nadine White - 12/27/[address] (Signed) Yifan Nevarez - 11/20/22 Chest X-Ray (Signed) Howard Farooq - 11/20/22 Chest X-Ray (Signed) Anival Riley - 11/08/[address] (Signed) Josesito Lund - 10/09/22 Chest X-Ray (Signed) Sohail Pearson - 10/09/22 Chest X-Ray (Signed) Hailey Bowser - 07/11/22 Duplex Scan Lower Extremity Artery (Signed) Lexus Ramos - 05/27/22 Abd US [id number] (Signed) Lexus Ramos - 05/27/22 Tibia/Fibula X-Ray (Signed) Manuel Lindsay - 03/27/22 Venous Duplex (Signed) Anival Riley - 03/27/22 Foot X-Ray (Signed) Anival Riley - 03/27/22 Chest X-Ray (Signed) Anival Riley - 03/27/22 Venous Duplex (Signed) Manuel Lindsay - 01/04/[address] (Signed) Raymond Mo - 01/04/22 Chest X-Ray (Signed) Courtney Smith - 01/04/22 Diagnostic Report, External 11/22/21 Chest X-Ray (Signed) Nadine White - 11/18/21 Venous Duplex (Signed) Teresa Whitean - 11/18/[address] (Signed) AshelyRandallJosesito - 11/18/[address] (Signed) Luc Dobsonn - 11/18/21 Chest X-Ray (Signed) Josesito Lund - 11/18/21 Launch?Image [address] [address] XRay Report Signed Patient: Bonnie Das MR#: [id number] : 1960 Acct:[id number] Age/Sex: 62 / F ADM Date: 01/24/23 Loc: .ED Attending Dr: Ordering Physician: Josesito Gonsales MD Date of Service: 01/24/23 Procedure(s): XR chest 1V Accession Number(s): [id number] cc: Josesito Gonsales MD~ EXAMINATION: XR CHEST CLINICAL INFORMATION: Dyspnea COMPARISON: Chest 01/12/2023 TECHNIQUE: Frontal view of the chest was obtained. FINDINGS: Hypoexpanded lungs with platelike atelectasis right midlung and compressive atelectasis left lung base. Heart size is enlarged. Pulmonary vascularity is prominent suspicious for mild congestion. No gross bony abnormality seen. XR/XR chest 1V IMPRESSION: 1.? Cardiomegaly with mild pulmonary vascular congestion. ? 2.? Platelike atelectasis right midlung and compressive atelectasis left lung base. Assessment & Plan Assessment & Plan (1) Chronic respiratory failure: Code(s): J96.10 - Chronic respiratory failure, unspecified whether with hypoxia or hypercapnia (2) Morbid obesity with BMI of 50.0-59.9, adult: Code(s): E66.01 - Morbid (severe) obesity due to excess calories; Z68.43 - Body mass index [BMI] 50.0-59.9, adult (3) COPD (chronic obstructive pulmonary disease): Code(s): J44.9 - Chronic obstructive pulmonary disease, unspecified (4) Hypoventilation associated with obesity: Code(s): E66.2 - Morbid (severe) obesity with alveolar hypoventilation Plan Bonnie's symptoms are multifactorial given her chronic respiratory failure with CO retention and hypoxia secondary to her COPD, morbid obesity BMI 51 and extensive cardiac history. There may also be a component of microaspirations secondary to dysphagia and findings on CT of irregular shaped esophagus. Will consider barium swallow in the future. She feels overall her respiratory status is slowly improving but still symptomatic despite using continuous oxygen, air duo and duoneb TID. She has known CO2 retention and reports being compliant with BiPAP. Will send for ABGs and CXR. If abnormal, will consider BiPAP compliance versus switching to a non invasive ventilator. Patient may benefit from NIV to improve gas exchange, prevent hypercapnia, prevent readmissions and improve overall quality of life. All questions were answered and patient is in agreement of plan. Will follow up after results. Orders: Orders ABG Today J96.10 - Chronic respiratory failure, unspecified whether with hypoxia or hypercapnia XR chest 2V Today J96.10 - Chronic respiratory failure, unspecified whether with hypoxia or hypercapnia Coding Level of Care Code New Pt Level 5 (03429) Diagnoses Chronic respiratory failure J96.10 Morbid obesity with BMI of 50.0-59.9, adult E66.01; Z68.43 COPD (chronic obstructive pulmonary disease) J44.9 Hypoventilation associated with obesity E66.2
[2023-04-04 11:16] VITALS: BP 126/70; PULSE 82; O2SAT 94
== END 2023-04-04 11:54 | disposition home or self-care (01) ==
PROVIDERS: PCP Internal Medicine; Visit Provider Nurse Practitioner Family
DX: J96.10 Chronic respiratory failure, unspecified whether with hypoxia or hypercapnia (principal); E66.01 Morbid (severe) obesity due to excess calories; Z68.43 Body mass index [BMI] 50.0-59.9, adult; J44.9 Chronic obstructive pulmonary disease, unspecified; E66.2 Morbid (severe) obesity with alveolar hypoventilation
CPT/HCPCS: 99204

== ENCOUNTER 2023-04-04 11:08 | Outpatient (REF) | payer OTHER, MEDICARE, MEDICAID, SELFPAY ==
[2023-04-04 12:43] LABS: ABG Refer to POC result
[2023-04-04 12:55] LABS: ABG Base Excess 2.8 mmol/L; ABG HCO3 32 mmol/L (22-26); ABG O2 % Saturation 67.3 %; ABG pCO2 72 mmHg (32-45); ABG pH 7.25 (7.35-7.45); ABG pO2 67 mmHg (83-108)
[2023-04-04 13:12] VITALS: PULSE 74; RESP 29; O2SAT 92
== END 2023-04-04 11:09 | disposition home or self-care (01) ==
LOC: HO.LAB 11:08
PROVIDERS: PCP Internal Medicine; Visit Provider Nurse Practitioner Family
DX: J96.10 Chronic respiratory failure, unspecified whether with hypoxia or hypercapnia (principal); E66.2 Morbid (severe) obesity with alveolar hypoventilation; Z68.43 Body mass index [BMI] 50.0-59.9, adult; J44.9 Chronic obstructive pulmonary disease, unspecified
CPT/HCPCS: 82803; 94660

== ENCOUNTER 2023-04-04 12:51 | Inpatient (IN) | payer OTHER, MEDICARE, MEDICAID, SELFPAY ==
[2023-04-04] VITALS (13 sets, daily range): BP systolic 106–132; BP diastolic 57–95; PULSE 62–88; RESP 19–28; TEMP 35.8–37.6; O2SAT 90–974; BMI 52.6; BMI 52.5
--- NOTE | ~2023-04-04 | XR_ITS ---
EXAMINATION: XR CHEST CLINICAL INFORMATION: Shortness of breath COMPARISON: Previous chest x-ray most recent January 2023 TECHNIQUE: Frontal view of the chest was obtained. FINDINGS: The cardiac and mediastinal contours are stable. There is a left subclavian dual chamber pacemaker unchanged in position. Lung volumes are low. There is bilateral subsegmental atelectasis. The lungs are otherwise clear. No pleural effusion or pneumothorax. Degenerative changes of the spine. XR/XR chest 1V IMPRESSION: Low lung volumes and bilateral subsegmental atelectasis.
--- NOTE | 2023-04-04 13:04 | ECG_ITS ---
Test Reason : SOB Blood Pressure : / mmHG Vent. Rate : 071 BPM Atrial Rate : 071 BPM P-R Int : 196 ms QRS Dur : 158 ms QT Int : 444 ms P-R-T Axes : 027 -33 133 degrees QTc Int : 482 ms Sinus rhythm with Premature atrial complexes Left axis deviation Left bundle branch block Abnormal ECG When compared with ECG of 24-JAN-2023 11:41, Premature atrial complexes are now Present Referred By: Adela Parker Electronically Signed By:Tyler Smith
--- NOTE | 2023-04-04 13:45 | ED.SOB ---
HPI - SOB/Dyspnea General Chief Complaint: Dyspnea Stated Complaint: SOB Time Seen by Provider: 04/04/23 13:44 Source: patient Limitations: no limitations History of Present Illness HPI Narrative: This is a 62 years old female with history of COPD, was brought here from the pulmonary clinic because of increasing shortness of breath. Pulmonary clinic the day ABG which showed hypercarbic respiratory acidosis therefore she was directed to the emergency department. Patient denies any chest pain she is complaining of some shortness of breath. MD elicited complaint: shortness of breath Pertinent past history: COPD Onset (ago): day(s) (1) Timing: constant Severity: moderate Exacerbating factors: nothing Related Data Home Medications Medication Instructions Recorded Confirmed acetaminophen 325 mg tablet 650 mg PO Q4H PRN Fever Or Pain 11/18/21 04/04/23 atorvastatin 80 mg tablet 80 mg PO BEDTIME 11/18/21 04/04/23 ferrous sulfate 325 mg (65 mg 325 mg PO DAILY 11/18/21 04/04/23 iron) tablet gabapentin 300 mg capsule 300 mg PO DAILY@1200 11/18/21 01/24/23 gabapentin 300 mg capsule 600 mg PO BID 11/18/21 01/24/23 insulin lispro 100 unit/mL See Protocol subcut QIDACHS 11/18/21 04/04/23 subcutaneous pen melatonin 3 mg tablet 3 mg PO BEDTIME 11/18/21 04/04/23 polyethylene glycol 3350 17 gram 17 g PO DAILY PRN Constipation 11/18/21 01/24/23 oral powder packet (Miralax) sennosides 8.6 mg tablet (senna) 17.2 mg PO DAILY PRN Constipation 11/18/21 04/04/23 sertraline 100 mg tablet 200 mg PO DAILY 11/18/21 04/04/23 tizanidine 4 mg tablet 4 mg PO BEDTIME PRN Muscle Spasm 11/18/21 04/04/23 aspirin 81 mg chewable tablet 81 mg PO DAILY 01/05/22 04/04/23 megestrol 400 mg/10 mL (10 mL) 400 mg PO TID 01/05/22 04/04/23 oral suspension bupropion HCl 300 mg 24 hr tablet, 300 mg PO DAILY 04/09/22 04/04/23 extended release insulin lispro 100 unit/mL 5 unit subcut TIDAC 04/09/22 04/04/23 subcutaneous solution Lactobacillus rhamnosus GG 10 1 cap PO BID 10/09/22 01/24/23 billion cell capsule (Culturelle) bupropion HCl 150 mg 24 hr tablet, 1 tab PO DAILY 10/09/22 04/04/23 extended release ipratropium 0.5 mg-albuterol 3 mg 3 ml inhalation TID 10/09/22 01/24/23 (2.5 mg base)/3 mL nebulization soln potassium chloride 10 mEq 10 meq PO DAILY 10/09/22 04/04/23 tablet,extended release bisacodyl 10 mg rectal suppository 10 mg GA DAILY PRN Constipation 10/21/22 04/04/23 magnesium citrate (Citrate of 150 ml PO DAILY PRN Constipation 10/21/22 01/24/23 Magnesia oral) fluticasone 113 mcg-salmeterol 14 1 inh inhalation BID 11/09/22 04/04/23 mcg/actuation breath activated powdr (AirDuo RespiClick) magnesium hydroxide 400 mg/5 mL 30 ml PO DAILY PRN Constipation 11/09/22 01/24/23 oral suspension (Milk of Magnesia) sodium phosphates 19 gram-7 118 ml GA DAILY PRN Constipation 11/09/22 01/24/23 gram/118 mL enema (Fleet Enema) metformin 500 mg tablet 500 mg PO BID 12/27/22 04/04/23 semaglutide 0.25 mg or 0.5 mg (2 0.25 mg subcut WE 12/27/22 04/04/23 mg/3 mL) subcutaneous pen injector (Ozempic) aripiprazole 2 mg tablet 2 mg PO DAILY 01/12/23 04/04/23 Previous Rx's Medication Instructions Recorded amlodipine 5 mg tablet 5 mg PO DAILY 30 days #30 tabs 11/26/21 furosemide 40 mg tablet 40 mg PO DAILY #30 tabs 04/05/22 acetazolamide 250 mg tablet 500 mg PO BID #60 tabs 01/06/23 empagliflozin 10 mg tablet 10 mg PO DAILY 30 days #30 tabs 01/17/23 (Jardiance) insulin glargine 100 unit/mL 40 unit (0.4 mL) subcut DAILY #10 01/17/23 subcutaneous solution mL prednisone 20 mg tablet 20 mg PO DAILY #4 tabs 01/27/23 Allergies Allergy/AdvReac Type Severity Reaction Status Date / Time latex Allergy Unknown Unknown Verified 10/21/22 13:48 adhesive tape AdvReac Unknown Unknown Verified 10/21/22 13:48 bupropion [From Wellbutrin] AdvReac Unknown Unknown Verified 10/21/22 13:48 ibuprofen AdvReac Unknown Unknown Verified 10/21/22 13:48 Review of Systems Constitutional: Constitutional: Denies chills Eyes: Eyes: Denies blurry vision Gastrointestinal: Gastrointestinal: Reports no additional gastrointestinal complaints Musculoskeletal: Musculoskeletal: Reports no additional musculoskeletal complaints [facility] Past Medical History Attestation statement: The following information was validated with the patient. Medical History Acute and chronic respiratory failure with hypercapnia Acute and chronic respiratory failure with hypercapnia Acute on chronic respiratory failure with hypoxia and hypercapnia Anemia Arthritis Atelectasis of both lungs CHF (congestive heart failure) Clostridium difficile infection Depression Diabetes mellitus, type 2 Diabetic ulcer of foot associated with diabetes mellitus due to underlying condition, with fat layer exposed Heart block AV third degree Hypertension Hypertrophic nonobstructive cardiomyopathy Hypoventilation associated with obesity syndrome Metabolic encephalopathy Morbid obesity Morbid obesity Morbid obesity Obesity hypoventilation syndrome SMILEY (obstructive sleep apnea) PAD (peripheral artery disease) Presence of permanent cardiac pacemaker Presence of permanent cardiac pacemaker Pressure injury of deep tissue of buttock Pressure ulcer, stage II, skin breakdown Pulmonary embolism Respiratory failure Respiratory failure with hypoxia and hypercapnia Sick sinus syndrome Urinary tract infection due to ESBL Klebsiella Surgical History History of total knee replacement Social History Social History Household Members: Unknown / Unable to assess Housing: Other Housing Other:: SNF Are you a primary client care coordinator to a significant other at home: No Do you presently have visiting nurse or other home services: No Unable to assess alcohol history related to: Unable to respond Alcohol intake: former Patient Tobacco Use Status: Former Tobacco user Quit Date: 30years ago Tobacco use type: Cigarette Cigarette Packs Per Day: 20 Cigarettes Per Day: 400.0 Years Smoked: 20 Smoked in Last 30 Days: No e-Cigarette/Vaping Use: Never Used Second Hand Smoke Exposure: No Use of substances other than those prescribed or required for medical reasons: No Substance Use Type: Unknown Advance Directives: Yes Advance Directives on File: Yes Advance Directives Date on File: 01/07/23 Patient : No service: No Current occupational status: disabled Physical Exam Vital Signs: Vital Signs: Last Vital Signs Temp 99.7 F 04/04/23 13:47 Pulse 68 04/04/23 15:58 Resp 20 04/04/23 15:58 BP 108/57 L 04/04/23 14:35 Pulse Ox 92 04/04/23 14:35 O2 Del Method CPAP 04/04/23 14:35 FiO2 28 04/04/23 14:35 BMI result Body Mass Index 52.6 Const: General: cooperative Nutritional Appearance: well nourished Orientation/consciousness: patient oriented x3 Limitations: no limitations HEENT: Head: Yes normal to inspection Ears: hearing grossly normal bilaterally General nose exam: Normal external nose present Face and sinus: Yes normal facial exam Mouth: Normal oral and palatal mucosa present Throat: Yes posterior oropharynx normal Neck: Neck: Yes normal visual inspection Chest: Chest palpation & inspection: normal inspection of the chest Resp: Effort & Inspection: abnormal respiratory pattern Auscultation: rhonchi Cardio: Jugular venous distension: no JVD Rate: regular rate Rhythm: regular rhythm GI: Inspection: Yes normal to inspection Skin: General skin exam: no rashes or lesions noted Neuro: General: patient oriented x3 Course Reevaluation(s) Reevaluation #1: doing better abg improving on bipapp Time: 16:18 Medications Administered Discontinued Medications Generic Name Dose Route Start Last Admin Trade Name Mike PRN Reason Stop Dose Admin Albuterol Sulfate 2.5 mg/ 0 mg 04/04/23 15:42 04/04/23 15:53 Albuterol/Ipratropium 3 ml INHALE 04/04/23 15:43 5 dose ONCE ONE Administration Insulin Human Lispro 10 unit 04/04/23 14:49 04/04/23 15:21 Insulin Lispro 100 Unit/Ml 3 Ml Vial SUBCUT 04/04/23 14:50 10 unit ONCE ONE Administration Methylprednisolone Sodium Succinate 125 mg 04/04/23 13:49 04/04/23 14:17 Methylprednisolone Sod Succ 125 Mg/2 Ml Vial IVPUSH 04/04/23 13:50 125 mg ONCE ONE Administration Medical Decision Making Medical Decision Making MDM Narrative: Patient presented to the emergency department from the pulmonary clinic with hypercarbic respiratory failure she was placed on BiPAP with improvement of the gas she is more awake, she will be admitted to [facility] Differential Diagnosis Differential Diagnoses: The differential diagnosis associated with the presentation includes Congestive heart failure COPD exacerbation pneumothorax Admission/Observation Consideration of admission/observation: Escalation of care including admission/observation considered Consult Healthcare Provider Management of the patient was discussed with: Hospitalist Lab Data [facility] Lab Attestation statement: I reviewed the patient's lab results. 04/04/23 14:20 04/04/23 14:20 Labs: Lab Results 04/04/23 04/04/23 04/04/23 Range/Units 14:20 14:20 14:20 WBC 12.1 H (4.8-10.8) X10*3/uL RBC 4.94 (4.20-5.50) X10*6/uL Hgb 14.0 (12.0-16.0) g/dl Hct 47.4 H (37.0-47.0) % MCV 96.0 (80.0-98.0) fL MCH 28.3 (27.0-33.0) pg MCHC 29.5 L (31.0-35.0) g/dl RDW 14.4 (11.0-16.0) % Plt Count 222 D (160-400) X10*3/uL MPV 10.7 (9.4-12.3) fL Immature Gran % (Auto) 0.5 H (0.0-0.4) % Neut % (Auto) 76.3 H (45-73) % Lymph % (Auto) 14.9 L (20-40) % Dickey % (Auto) 6.8 (2-11) % Eos % (Auto) 1.2 (0-4) % Baso % (Auto) 0.3 (0-2) % Lymph # (Auto) 1.8 (1.2-4.9) X10*3/uL Dickey # (Auto) 0.8 (0.1-1.2) X10*3/uL Eos # (Auto) 0.1 (0.0-0.4) X10*3/uL Baso # (Auto) 0.0 (0.0-0.2) X10*3/uL Abs Immat Gran (auto) 0.06 H (0.00-0.03) X10*3/uL Absolute Neuts (auto) 9.3 H (2.0-8.3) x10*3/uL Absolute Nucleated RBC 0.000 (0.0-0.012) X10*3/uL Nucleated RBC % (auto) 0.0 (0.0-0.2) /100WBC O2 Saturation % ABG pH at Pt Temp (7.35-7.45) ABG pCO2 at Pt Temp (32-45) mmHg ABG pO2 at Pt Temp (83-108) mmHg ABG HCO3 (22-26) mmol/L ABG Base Excess (Actual) mmol/L VBG pH (7.32-7.43) VBG pCO2 mmHg VBG pO2 mmHg VBG HCO3 (22-26) mmol/L VBG O2 Saturation % VBG Base Excess mmol/L Sodium 140 (135-145) mmol/L Potassium 4.5 (3.3-5.1) mmol/L Chloride 105 (96-108) mmol/L Carbon Dioxide 28 (22-29) mmol/L Anion Gap 12 (12-20) BUN 21 H (9-16) mg/dL Creatinine 1.13 (0.5-1.4) mg/dL Estim Creat Clear Calc 81.3 Estimated GFR 49 Random Glucose 378 H* (60-115) mg/dL Calcium 9.1 (8.4-10.2) mg/dL Magnesium 2.3 (1.6-2.6) mg/dL Total Bilirubin 0.2 (0.0-1.0) mg/dL AST 12 (5-31) U/L ALT 16 (0-31) U/L Alkaline Phosphatase 78 (39-117) U/L Troponin I High Sens 14.1 (<3.5-17.0) ng/L B-Natriuretic Peptide (<100) pg/mL Total Protein 7.5 (6.5-8.0) g/dL Albumin 3.7 (3.5-5.0) g/dL COVID-19 (LIS) (Negative) COVID-19 Clin Com 04/04/23 04/04/23 04/04/23 Range/Units 14:20 14:20 14:47 WBC (4.8-10.8) X10*3/uL RBC (4.20-5.50) X10*6/uL Hgb (12.0-16.0) g/dl Hct (37.0-47.0) % MCV (80.0-98.0) fL MCH (27.0-33.0) pg MCHC (31.0-35.0) g/dl RDW (11.0-16.0) % Plt Count (160-400) X10*3/uL MPV (9.4-12.3) fL Immature Gran % (Auto) (0.0-0.4) % Neut % (Auto) (45-73) % Lymph % (Auto) (20-40) % Dickey % (Auto) (2-11) % Eos % (Auto) (0-4) % Baso % (Auto) (0-2) % Lymph # (Auto) (1.2-4.9) X10*3/uL Dickey # (Auto) (0.1-1.2) X10*3/uL Eos # (Auto) (0.0-0.4) X10*3/uL Baso # (Auto) (0.0-0.2) X10*3/uL Abs Immat Gran (auto) (0.00-0.03) X10*3/uL Absolute Neuts (auto) (2.0-8.3) x10*3/uL Absolute Nucleated RBC (0.0-0.012) X10*3/uL Nucleated RBC % (auto) (0.0-0.2) /100WBC O2 Saturation % ABG pH at Pt Temp (7.35-7.45) ABG pCO2 at Pt Temp (32-45) mmHg ABG pO2 at Pt Temp (83-108) mmHg ABG HCO3 (22-26) mmol/L ABG Base Excess (Actual) mmol/L VBG pH 7.33 (7.32-7.43) VBG pCO2 53 mmHg VBG pO2 107 mmHg VBG HCO3 28 H (22-26) mmol/L VBG O2 Saturation 100.0 % VBG Base Excess 1.6 mmol/L Sodium (135-145) mmol/L Potassium (3.3-5.1) mmol/L Chloride (96-108) mmol/L Carbon Dioxide (22-29) mmol/L Anion Gap (12-20) BUN (9-16) mg/dL Creatinine (0.5-1.4) mg/dL Estim Creat Clear Calc Estimated GFR Random Glucose (60-115) mg/dL Calcium (8.4-10.2) mg/dL Magnesium (1.6-2.6) mg/dL Total Bilirubin (0.0-1.0) mg/dL AST (5-31) U/L ALT (0-31) U/L Alkaline Phosphatase (39-117) U/L Troponin I High Sens (<3.5-17.0) ng/L B-Natriuretic Peptide 28 (<100) pg/mL Total Protein (6.5-8.0) g/dL Albumin (3.5-5.0) g/dL COVID-19 (LIS) Negative (Negative) COVID-19 Clin Com See Note 04/04/23 Range/Units 15:26 WBC (4.8-10.8) X10*3/uL RBC (4.20-5.50) X10*6/uL Hgb (12.0-16.0) g/dl Hct (37.0-47.0) % MCV (80.0-98.0) fL MCH (27.0-33.0) pg MCHC (31.0-35.0) g/dl RDW (11.0-16.0) % Plt Count (160-400) X10*3/uL MPV (9.4-12.3) fL Immature Gran % (Auto) (0.0-0.4) % Neut % (Auto) (45-73) % Lymph % (Auto) (20-40) % Dickey % (Auto) (2-11) % Eos % (Auto) (0-4) % Baso % (Auto) (0-2) % Lymph # (Auto) (1.2-4.9) X10*3/uL Dickey # (Auto) (0.1-1.2) X10*3/uL Eos # (Auto) (0.0-0.4) X10*3/uL Baso # (Auto) (0.0-0.2) X10*3/uL Abs Immat Gran (auto) (0.00-0.03) X10*3/uL Absolute Neuts (auto) (2.0-8.3) x10*3/uL Absolute Nucleated RBC (0.0-0.012) X10*3/uL Nucleated RBC % (auto) (0.0-0.2) /100WBC O2 Saturation 92.0 % ABG pH at Pt Temp 7.28 L (7.35-7.45) ABG pCO2 at Pt Temp 52 H (32-45) mmHg ABG pO2 at Pt Temp 68 L (83-108) mmHg ABG HCO3 24 (22-26) mmol/L ABG Base Excess (Actual) -2.4 mmol/L VBG pH (7.32-7.43) VBG pCO2 mmHg VBG pO2 mmHg VBG HCO3 (22-26) mmol/L VBG O2 Saturation % VBG Base Excess mmol/L Sodium (135-145) mmol/L Potassium (3.3-5.1) mmol/L Chloride (96-108) mmol/L Carbon Dioxide (22-29) mmol/L Anion Gap (12-20) BUN (9-16) mg/dL Creatinine (0.5-1.4) mg/dL Estim Creat Clear Calc Estimated GFR Random Glucose (60-115) mg/dL Calcium (8.4-10.2) mg/dL Magnesium (1.6-2.6) mg/dL Total Bilirubin (0.0-1.0) mg/dL AST (5-31) U/L ALT (0-31) U/L Alkaline Phosphatase (39-117) U/L Troponin I High Sens (<3.5-17.0) ng/L B-Natriuretic Peptide (<100) pg/mL Total Protein (6.5-8.0) g/dL Albumin (3.5-5.0) g/dL COVID-19 (LIS) (Negative) COVID-19 Clin Com ABG Data Attestation ABG: I personally reviewed and interpreted this ABG as follows: Interpretation: Hypercarbic respiratory failure Independent Interpretation I performed an independent interpretation of an: Plain X-Ray Interpretation: Chest x-ray reviewed personally by me no pneumonia agree with the radiology reading Radiology Impression Discussion of test interpretation with radiology: I have reviewed the radiologist's reading. External Record Review External record reviewed: Inpatient record Critical Care Time Critical Care Time Critical Care Time: Yes Total Critical Care Time: 60 Attestation: Placing patient on BiPAP following ABG d/w hospitalist Discharge Plan Discharge Clinical Impression: COPD exacerbation Prescriptions: No Action furosemide 40 mg Tablet 40 mg PO DAILY Qty: 30 0RF Protocol: Hold for SBP< HOLD for SBP < : 90 ipratropium-albuterol 0.5 mg-3 mg(2.5 mg base)/3 mL Solution For Nebulization 3 ml INHALATION TID potassium chloride 10 mEq Tablet Extended Release 10 meq PO DAILY Hold Instructions: Recheck K level in 1 week to decide if needed or not. Rx Instructions: recheck K level in 1 week to decide if needed or not. Culturelle 10 billion cell Capsule 1 cap PO BID bupropion HCl 150 mg tablet extended release 24 hr 1 tab PO DAILY Rx Instructions: take with 300mg; tdd 450mg magnesium hydroxide [Milk of Magnesia] 400 mg/5 mL Suspension 30 ml PO DAILY PRN (Reason: Constipation) Rx Instructions: USE IF NO BOWEL MOVEMENT FOR 3 DAYS Fleet Enema 19-7 gram/118 mL Enema 118 ml GA DAILY PRN (Reason: Constipation) Rx Instructions: IF NO BOWEL MOVEMENT 8 HOURS AFTER BISACODYL fluticasone propion-salmeterol [AirDuo RespiClick] 113-14 mcg/actuation aerosol powdr breath activated 1 inh inhalation BID Rx Instructions: rinse mouth after use AND SPIT OUT atorvastatin 80 mg Tablet 80 mg PO BEDTIME sennosides [senna] 8.6 mg Tablet 17.2 mg PO DAILY PRN (Reason: Constipation) acetaminophen 325 mg Tablet 650 mg PO Q4H PRN (Reason: Fever Or Pain) polyethylene glycol 3350 [Miralax] 17 gram Powder In Packet 17 g PO DAILY PRN (Reason: Constipation) tizanidine 4 mg Tablet 4 mg PO BEDTIME PRN (Reason: Muscle Spasm) sertraline 100 mg Tablet 200 mg PO DAILY melatonin 3 mg Tablet 3 mg PO BEDTIME ferrous sulfate 325 mg (65 mg iron) Tablet 325 mg PO DAILY gabapentin 300 mg Capsule 300 mg PO DAILY@1200 gabapentin 300 mg Capsule 600 mg PO BID insulin lispro 100 unit/mL Insulin Pen See Protocol SUBCUT QIDACHS Protocol: Insulin Correction Scale Less than or equal to 110 ---- Give (units): 0 111 to 150 Give (units): 0 151 to 200 Give (units): 0 201 to 250 Give (units): 4 251 to 300 Give (units): 6 301 to 350 Give (units): 8 Greater than 350 Give (units): 10 Call MD if Blood Glucose > : 350 Rx Instructions: SLIDING SCALE IF BLOOD GLUCOSE GREATER THAN 400, GIVE 12 UNITS AND NOTIFY MD amlodipine 5 mg Tablet 5 mg PO DAILY 30 Days Qty: 30 0RF Protocol: Hold for SBP< HOLD for SBP < : 90 aspirin 81 mg Tablet,Chewable 81 mg PO DAILY megestrol 400 mg/10 mL (10 mL) Suspension 400 mg PO TID acetazolamide 250 mg Tablet 500 mg PO BID Qty: 60 0RF aripiprazole 2 mg tablet 2 mg PO DAILY Jardiance 10 mg Tablet 10 mg PO DAILY 30 Days Qty: 30 0RF insulin glargine 100 unit/mL Solution 40 unit SUBCUT DAILY Qty: 10 0RF prednisone 20 mg tablet 20 mg PO DAILY Qty: 4 0RF metformin 500 mg tablet 500 mg PO BID Ozempic 0.25 mg or 0.5 mg (2 mg/3 mL) pen injector 0.25 mg subcut WE Rx Instructions: CHANGE TO 0.50 MG STARTING 01/22/23 bisacodyl 10 mg suppository 10 mg GA DAILY PRN (Reason: Constipation) Rx Instructions: GIVE IF NO RESULT FROM MILK OF MAGNESIA magnesium citrate [Citrate of Magnesia] Solution 150 ml PO DAILY PRN (Reason: Constipation) Rx Instructions: IF NO BOWEL MOVEMENT 12 HOURS AFTER FLEET ENEMA bupropion HCl 300 mg tablet extended release 24 hr 300 mg PO DAILY Rx Instructions: take with 150mg dose; tdd 450mg insulin lispro 100 unit/mL solution 5 unit subcut TIDAC Hold Instructions: resume as needed if blood sugar persistently elevated
--- NOTE | 2023-04-04 14:08 | PC.NURSE ---
Alert and oriented. started on bipap by respiratory. Denies pain or discomfort. States came from SNF becasuse her bipap has been broken x1 week and facility has not been able to fix it. States sob sometimes but not worse than normal.
[2023-04-04] MEDS: methylPREDNISolone Sod Succ 125 MG/2 ML VIAL IVPUSH (14:17)
[2023-04-04 14:24] LABS: MANUAL DIFF FLAG NO
[2023-04-04 14:26] LABS: Basophils Percent Auto 0.3 % (0-2); Eosinophils Absolute Auto 0.1 X10*3/uL (0.0-0.4); Eosinophils Percent Auto 1.2 % (0-4); Hematocrit 47.4 % (37.0-47.0); Imm Gran Abs Auto 0.06 X10*3/uL (0.00-0.03); Imm Gran Pct Auto 0.5 % (0.0-0.4); Lymphocytes Absolute Auto 1.8 X10*3/uL (1.2-4.9); Lymphocytes Percent Auto 14.9 % (20-40); Mean Corpuscular HGB Conc 29.5 g/dl (31.0-35.0); Mean Corpuscular Hemoglobin 28.3 pg (27.0-33.0); Mean Platelet Volume 10.7 fL (9.4-12.3); Monocytes Absolute Auto 0.8 X10*3/uL (0.1-1.2); Monocytes Percent Auto 6.8 % (2-11); Neutrophils Absolute Auto 9.3 x10*3/uL (2.0-8.3); Neutrophils Percent Auto 76.3 % (45-73); Platelet Count 222 X10*3/uL (160-400); Red Blood Count 4.94 X10*6/uL (4.20-5.50); Red Cell Distribution Width 14.4 % (11.0-16.0); White Blood Count 12.1 X10*3/uL (4.8-10.8)
[2023-04-04 14:42] LABS: Alanine Aminotransferase 16 U/L (0-31); Albumin Level 3.7 g/dL (3.5-5.0); Alkaline Phosphatase 78 U/L (39-117); Anion Gap 12 (12-20); Aspartate Amino Transferase 12 U/L (5-31); Bilirubin Total 0.2 mg/dL (0.0-1.0); Blood Urea Nitrogen 21 mg/dL (9-16); Calcium 9.1 mg/dL (8.4-10.2); Carbon Dioxide 28 mmol/L (22-29); Chloride 105 mmol/L (96-108); Creatinine Clr Calc Pharmacy 81.3; Estimated Glomerular Filt Rate 49; Magnesium 2.3 mg/dL (1.6-2.6); Potassium 4.5 mmol/L (3.3-5.1); Sodium 140 mmol/L (135-145); Total Protein 7.5 g/dL (6.5-8.0)
[2023-04-04 14:44] LABS: Glucose Random 378 mg/dL (60-115)
[2023-04-04 14:47] LABS: B Type Natriuretic Peptide 28 pg/mL (<100)
[2023-04-04 14:49] LABS: Troponin-I High Sensitivity 14.1 ng/L (<3.5-17.0)
[2023-04-04 14:54] LABS: Venous Blood Gas Refer to POC result
[2023-04-04 14:55] LABS: VBG Base Excess 1.6 mmol/L; VBG HCO3 28 mmol/L (22-26); VBG pCO2 53 mmHg; VBG pH 7.33 (7.32-7.43); VBG pO2 107 mmHg
[2023-04-04 15:13] LABS: COVID-19 Test Negative (Negative); IDNOW Serial# BCCEAD1C
[2023-04-04] MEDS: Insulin Lispro 100 UNIT/ML 3 ML VIAL 10 UNIT SUBCUT (15:21)
[2023-04-04 15:36] LABS: ABG Base Excess -2.4 mmol/L; ABG HCO3 24 mmol/L (22-26); ABG pCO2 52 mmHg (32-45); ABG pH 7.28 (7.35-7.45); ABG pO2 68 mmHg (83-108)
[2023-04-04] MEDS: Albuterol Sulfate 2.5 MG, Albuterol/Iprat 2.5/0.5MG 3 ML 3 ML INHALE (15:53)
--- NOTE | 2023-04-04 16:22 | PM.IMHP ---
History of Present Illness Date of Service: 04/04/23 Attending physician on admission: [facility] Chief Complaint: shortness of breath this is a 62-year-old female with history of COPD, chronic respiratory failure with hypoxia and hypercarbia on 2-3L of supplemental oxygen, SMILEY on bipap, obesity hypoventilation, HFpEF, recurrent admissions for acute on chronic respiratory failure who was sent in from outpatient pulmonology due to elevated CO2. Patient was in the outpatient setting for pulmonary follow-up appointment, she had routine ABG obtained which showed pCO2 of 72 and pH 7.25 therefore she was sent to the emergency department for evaluation. She was placed on BiPAP and ABG was repeated several hours later and showed an improvement in her pCO2 to 52. In the emergency department she was lethargic. chest x-ray showed no evidence of pneumonia. She was treated with a dose of IV Solu-Medrol and breathing treatment. Given her persistent lethargy the decision was made to admit her to the hospital for further management of acute on chronic respiratory failure with hypoxia and hypercarbia. patient was unable to provide any significant history. [facility] Medical History Acute and chronic respiratory failure with hypercapnia Acute and chronic respiratory failure with hypercapnia Acute on chronic respiratory failure with hypoxia and hypercapnia Anemia Arthritis Atelectasis of both lungs CHF (congestive heart failure) Clostridium difficile infection Depression Diabetes mellitus, type 2 Diabetic ulcer of foot associated with diabetes mellitus due to underlying condition, with fat layer exposed Heart block AV third degree Hypertension Hypertrophic nonobstructive cardiomyopathy Hypoventilation associated with obesity syndrome Metabolic encephalopathy Morbid obesity Morbid obesity Morbid obesity Obesity hypoventilation syndrome SMILEY (obstructive sleep apnea) PAD (peripheral artery disease) Presence of permanent cardiac pacemaker Presence of permanent cardiac pacemaker Pressure injury of deep tissue of buttock Pressure ulcer, stage II, skin breakdown Pulmonary embolism Respiratory failure Respiratory failure with hypoxia and hypercapnia Sick sinus syndrome Urinary tract infection due to ESBL Klebsiella Surgical History History of total knee replacement Social History Household Members: Unknown / Unable to assess Housing: Other Housing Other:: SNF Are you a primary healthcare applications analyst to a significant other at home: No Do you presently have visiting nurse or other home services: No Unable to assess alcohol history related to: Unable to respond Alcohol intake: former Patient Tobacco Use Status: Former Tobacco user Quit Date: 30years ago Tobacco use type: Cigarette Cigarette Packs Per Day: 20 Cigarettes Per Day: 400.0 Years Smoked: 20 Smoked in Last 30 Days: No e-Cigarette/Vaping Use: Never Used Second Hand Smoke Exposure: No Use of substances other than those prescribed or required for medical reasons: No Substance Use Type: Unknown Advance Directives: Yes Advance Directives on File: Yes Advance Directives Date on File: 01/07/23 Patient : No service: No Current occupational status: disabled Meds Allergies Allergy/AdvReac Type Severity Reaction Status Date / Time latex Allergy Unknown Unknown Verified 10/21/22 13:48 adhesive tape AdvReac Unknown Unknown Verified 10/21/22 13:48 bupropion [From Wellbutrin] AdvReac Unknown Unknown Verified 10/21/22 13:48 ibuprofen AdvReac Unknown Unknown Verified 10/21/22 13:48 Active Medications: Current Medications Acetaminophen (Acetaminophen 325 Mg Tablet) 650 mg PO Q6H PRN PRN Reason: Pain, Mild (Pain Scale 1-3) Docusate Sodium (Docusate Sodium 100 Mg Capsule) 100 mg PO DAILY PRN PRN Reason: Constipation Heparin Sodium (Porcine) (Heparin Sodium,Porcine 5,000 Unit/Ml Vial) 5,000 unit SUBCUT Q12H ROSSY Ondansetron HCl (Ondansetron Hcl 4 Mg/2 Ml Vial) 4 mg IVPUSH Q8H PRN PRN Reason: Nausea and Vomiting Pharmacy Consult (Consult Rx Perform Med Rec) 1 each MISCELLANE ONCE PRN PRN Reason: Consult order Pharmacy Consult (Consult Rx Perform Med Rec) 1 each MISCELLANE ONCE PRN PRN Reason: Consult order Sodium Chloride (0.9 % Sodium Chloride Flush 3 Ml Syringe) 3 ml IVFLUSH [facility] Home Medications Medication Instructions Recorded Confirmed Last Taken Type acetaminophen 325 mg tablet 650 mg PO Q4H PRN Fever Or Pain 11/18/21 04/04/23 Unknown History atorvastatin 80 mg tablet 80 mg PO BEDTIME 11/18/21 04/04/23 Unknown History ferrous sulfate 325 mg (65 mg 325 mg PO DAILY 11/18/21 04/04/23 Unknown History iron) tablet gabapentin 300 mg capsule 300 mg PO DAILY@1200 11/18/21 01/24/23 Unknown History gabapentin 300 mg capsule 600 mg PO BID 11/18/21 01/24/23 Unknown History insulin lispro 100 unit/mL See Protocol subcut QIDACHS 11/18/21 04/04/23 Unknown History subcutaneous pen melatonin 3 mg tablet 3 mg PO BEDTIME 11/18/21 04/04/23 Unknown History polyethylene glycol 3350 17 gram 17 g PO DAILY PRN Constipation 11/18/21 01/24/23 Unknown History oral powder packet (Miralax) sennosides 8.6 mg tablet (senna) 17.2 mg PO DAILY PRN Constipation 11/18/21 04/04/23 Unknown History sertraline 100 mg tablet 200 mg PO DAILY 11/18/21 04/04/23 Unknown History tizanidine 4 mg tablet 4 mg PO BEDTIME PRN Muscle Spasm 11/18/21 04/04/23 Unknown History aspirin 81 mg chewable tablet 81 mg PO DAILY 01/05/22 04/04/23 Unknown History megestrol 400 mg/10 mL (10 mL) 400 mg PO TID 01/05/22 04/04/23 Unknown History oral suspension bupropion HCl 300 mg 24 hr tablet, 300 mg PO DAILY 04/09/22 04/04/23 Unknown History extended release insulin lispro 100 unit/mL 5 unit subcut TIDAC 04/09/22 04/04/23 Unknown History subcutaneous solution Lactobacillus rhamnosus GG 10 1 cap PO BID 10/09/22 01/24/23 Unknown History billion cell capsule (Culturelle) bupropion HCl 150 mg 24 hr tablet, 1 tab PO DAILY 10/09/22 04/04/23 Unknown History extended release ipratropium 0.5 mg-albuterol 3 mg 3 ml inhalation TID 10/09/22 01/24/23 Unknown History (2.5 mg base)/3 mL nebulization soln potassium chloride 10 mEq 10 meq PO DAILY 10/09/22 04/04/23 Unknown History tablet,extended release bisacodyl 10 mg rectal suppository 10 mg RI DAILY PRN Constipation 10/21/22 04/04/23 Unknown History magnesium citrate (Citrate of 150 ml PO DAILY PRN Constipation 10/21/22 01/24/23 Unknown History Magnesia oral) fluticasone 113 mcg-salmeterol 14 1 inh inhalation BID 11/09/22 04/04/23 Unknown History mcg/actuation breath activated powdr (AirDuo RespiClick) magnesium hydroxide 400 mg/5 mL 30 ml PO DAILY PRN Constipation 11/09/22 01/24/23 Unknown History oral suspension (Milk of Magnesia) sodium phosphates 19 gram-7 118 ml RI DAILY PRN Constipation 11/09/22 01/24/23 Unknown History gram/118 mL enema (Fleet Enema) metformin 500 mg tablet 500 mg PO BID 12/27/22 04/04/23 Unknown History semaglutide 0.25 mg or 0.5 mg (2 0.25 mg subcut WE 12/27/22 04/04/23 Unknown History mg/3 mL) subcutaneous pen injector (Ozempic) aripiprazole 2 mg tablet 2 mg PO DAILY 01/12/23 04/04/23 Unknown History losartan 25 mg tablet 25 mg PO DAILY 04/04/23 Unknown History Physical Exam Vital Signs and Narrative: Vital Signs: Last Vital Signs Temp 99.7 F 04/04/23 13:47 Pulse 68 04/04/23 15:58 Resp 20 04/04/23 15:58 BP 108/57 L 04/04/23 14:35 Pulse Ox 92 04/04/23 14:35 O2 Del Method CPAP 04/04/23 14:35 FiO2 28 04/04/23 14:35 BMI result Body Mass Index 52.6 Const: Other: arousable to painful stimuli. will briefly wake up and then fall back asleep unable to assess orientation Nutritional Appearance: obese Resp: Other: breathing comfortably, no acute respiratory distress Effort & Inspection: no respiratory distress and no use of accessory muscles Auscultation: no wheezes Cardio: Other: distant heart sounds GI: Inspection: No distended Palpation (GI): Soft to palpation and nontender Extrem: Other: bilateral nonpitting edema Results Labs 04/04/23 14:20 04/04/23 14:20 Labs: Laboratory Results - last 24 hr 04/04/23 04/04/23 04/04/23 14:20 14:20 14:20 MCV 96.0 MCH 28.3 MCHC 29.5 L RDW 14.4 Plt Count 222 D MPV 10.7 Immature Gran % (Auto) 0.5 H Neut % (Auto) 76.3 H Lymph % (Auto) 14.9 L Stanton % (Auto) 6.8 Eos % (Auto) 1.2 Baso % (Auto) 0.3 Lymph # (Auto) 1.8 Stanton # (Auto) 0.8 Eos # (Auto) 0.1 Baso # (Auto) 0.0 Abs Immat Gran (auto) 0.06 H Absolute Neuts (auto) 9.3 H Absolute Nucleated RBC 0.000 Nucleated RBC % (auto) 0.0 O2 Saturation ABG pH at Pt Temp ABG pCO2 at Pt Temp ABG pO2 at Pt Temp ABG HCO3 ABG Base Excess (Actual) VBG pH VBG pCO2 VBG pO2 VBG HCO3 VBG O2 Saturation VBG Base Excess Anion Gap 12 Estim Creat Clear Calc 81.3 Estimated GFR 49 Random Glucose 378 H* Calcium 9.1 Magnesium 2.3 Total Bilirubin 0.2 AST 12 ALT 16 Alkaline Phosphatase 78 Troponin I High Sens 14.1 B-Natriuretic Peptide Total Protein 7.5 Albumin 3.7 COVID-19 (LIS) COVID-Opposing Views 04/04/23 04/04/23 04/04/23 14:20 14:20 14:47 MCV MCH MCHC RDW Plt Count MPV Immature Gran % (Auto) Neut % (Auto) Lymph % (Auto) Stanton % (Auto) Eos % (Auto) Baso % (Auto) Lymph # (Auto) Stanton # (Auto) Eos # (Auto) Baso # (Auto) Abs Immat Gran (auto) Absolute Neuts (auto) Absolute Nucleated RBC Nucleated RBC % (auto) O2 Saturation ABG pH at Pt Temp ABG pCO2 at Pt Temp ABG pO2 at Pt Temp ABG HCO3 ABG Base Excess (Actual) VBG pH 7.33 VBG pCO2 53 VBG pO2 107 VBG HCO3 28 H VBG O2 Saturation 100.0 VBG Base Excess 1.6 Anion Gap Estim Creat Clear Calc Estimated GFR Random Glucose Calcium Magnesium Total Bilirubin AST ALT Alkaline Phosphatase Troponin I High Sens B-Natriuretic Peptide 28 Total Protein Albumin COVID-19 (LIS) Negative COVID-19 Vivino Com See Note 04/04/23 15:26 MCV MCH MCHC RDW Plt Count MPV Immature Gran % (Auto) Neut % (Auto) Lymph % (Auto) Stanton % (Auto) Eos % (Auto) Baso % (Auto) Lymph # (Auto) Stanton # (Auto) Eos # (Auto) Baso # (Auto) Abs Immat Gran (auto) Absolute Neuts (auto) Absolute Nucleated RBC Nucleated RBC % (auto) O2 Saturation 92.0 ABG pH at Pt Temp 7.28 L ABG pCO2 at Pt Temp 52 H ABG pO2 at Pt Temp 68 L ABG HCO3 24 ABG Base Excess (Actual) -2.4 VBG pH VBG pCO2 VBG pO2 VBG HCO3 VBG O2 Saturation VBG Base Excess Anion Gap Estim Creat Clear Calc Estimated GFR Random Glucose Calcium Magnesium Total Bilirubin AST ALT Alkaline Phosphatase Troponin I High Sens B-Natriuretic Peptide Total Protein Albumin COVID-19 (LIS) COVID-19 Clin Com Imaging Radiologist's Impressions: Impressions Chest X-Ray 04/04/23 13:52 IMPRESSION: Low lung volumes and bilateral subsegmental atelectasis. Assessment and Plan (1) Hypoventilation associated with obesity: Status: Acute (2) COPD (chronic obstructive pulmonary disease): Status: Acute (3) Morbid obesity with BMI of 50.0-59.9, adult: Status: Acute (4) Acute and chronic respiratory failure: Status: Acute Plan This is a 62 year old female with history of COPD, chronic respiratory failure on 2-3L of oxygen, HFpEF, DM, HTN, heart block s/p PPM, obesity hypoventilation and recurrent hospitalizations for acute on chronic respiratory failure who presents with the same. Acute on chronic hypoxic/hypercarbic respiratory failure secondary to acute copd exacerbation Patient on home BiPAP at night and for naps, 2-3 L supplemental oxygen continue bipap, scheduled breathing treatments, systemic steroids continue supplemental oxygen, with goal o2 no higher then 92% Monitor respiratory status closely Acute metabolic encephalopathy Likely secondary to hypoxic/hypercarbic respiratory failure NPO until improvement in mental status DM NPO SSI, POCs hold meds until on diet Morbid obesity bmi 52.6 contributing to respiratory failure and hypoventilation weight loss encouraged chronic sacral decubitus ulcer frequent position changes local wound care med rec pending at the time of admission DVT ppx - heparin code status - MOLST in system attempt resuscitation, do not intubate attending - dr. myers given respiratory failure patient likely need 2 midnight stay in the hospital for close monitoring of respiratory status/bipap Time Spent With Patient Time: Total time managing care of this patient today ____ minutes. Quality Stroke Does the patient have a stroke diagnosis?: No VTE Prior VTE?: No VTE Risk Level:: Medical - moderate - high VTE Device Contraindication: N/A - Device Ordered VTE Drug Contraindication: N/A - Med Ordered
[2023-04-04 17:45] LABS: Glucose, Whole Blood 285 mg/dL (60-115)
--- NOTE | 2023-04-04 17:52 | PHA.MEDREC ---
Pharmacy Consult ? Medication Reconciliation Pharmacy has completed the medication reconciliation.USED LIST FROM [facility]. CALLED TO CONFIRM INSULIN DOSE, IS 40 U
[2023-04-04] MEDS: Heparin Sodium,Porcine 5,000 UNIT/ML VIAL 5000 UNIT SUBCUT (17:55)
[2023-04-04] MEDS: Insulin Lispro 100 UNIT/ML 3 ML VIAL SUBCUT ×2 (17:55→21:02)
--- NOTE | 2023-04-04 18:12 | PC.NURSE ---
Report given to accepting floor, transport notified.
[2023-04-04] MEDS: Albuterol/Iprat 2.5/0.5MG 3 ML AMPUL.NEB INHALE (19:21)
[2023-04-04 19:27] LABS: Glucose, Whole Blood 265 mg/dL (60-115)
[2023-04-04] MEDS: 0.9 % Sodium Chloride Flush 3 ML SYRINGE IVFLUSH (23:22)
[2023-04-05 00:11] LABS: ABG Refer to POC result
[2023-04-05] MEDS: methylPREDNISolone Sod Succ 40 MG/ML VIAL IVPUSH (02:06)
[2023-04-05 03:11] VITALS: BP 143/78; PULSE 69; RESP 20; TEMP 36.1; O2SAT 96
[2023-04-05 04:19] VITALS: PULSE 66; RESP 20; O2SAT 92
[2023-04-05] MEDS: Heparin Sodium,Porcine 5,000 UNIT/ML VIAL 5000 UNIT SUBCUT (05:21)
[2023-04-05 06:39] LABS: Hemoglobin 13.4 g/dl (12.0-16.0); Mean Corpuscular HGB Conc 31.2 g/dl (31.0-35.0); Mean Corpuscular Hemoglobin 28.9 pg (27.0-33.0); Mean Corpuscular Volume 92.7 fL (80.0-98.0); Mean Platelet Volume 11.1 fL (9.4-12.3); Platelet Count 203 X10*3/uL (160-400); Red Blood Count 4.64 X10*6/uL (4.20-5.50); Red Cell Distribution Width 14.4 % (11.0-16.0); White Blood Count 8.6 X10*3/uL (4.8-10.8)
[2023-04-05 06:59] LABS: Anion Gap 13 (12-20); Blood Urea Nitrogen 26 mg/dL (9-16); Calcium 9.6 mg/dL (8.4-10.2); Carbon Dioxide 28 mmol/L (22-29); Chloride 107 mmol/L (96-108); Creatinine Clr Calc Pharmacy 83.5; Estimated Glomerular Filt Rate 50; Glucose Random 291 mg/dL (60-115); Potassium 4.5 mmol/L (3.3-5.1); Sodium 143 mmol/L (135-145)
[2023-04-05 07:16] VITALS: BP 138/85; PULSE 75; RESP 20; TEMP 36.9; O2SAT 96
[2023-04-05] MEDS: Fluticasone/Vilanterol 100/25 BLST.W.DEV 1 PUFF INHALE (07:32)
[2023-04-05] MEDS: Albuterol/Iprat 2.5/0.5MG 3 ML AMPUL.NEB INHALE (07:32)
[2023-04-05 07:37] VITALS: PULSE 83; RESP 18; O2SAT 92
[2023-04-05] MEDS: 0.9 % Sodium Chloride Flush 3 ML SYRINGE IVFLUSH (07:55)
[2023-04-05 07:56] LABS: Glucose, Whole Blood 270 mg/dL (60-115)
[2023-04-05] MEDS: Megestrol Acetate 400 MG/10 ML ORAL.SUSP PO (08:04)
[2023-04-05] MEDS: buPROPion HCl XL 300 MG TAB.ER.24H PO (08:04)
[2023-04-05] MEDS: Furosemide 40 MG TABLET PO (08:04)
[2023-04-05] MEDS: Insulin Lispro 100 UNIT/ML 3 ML VIAL SUBCUT ×2 (08:04→11:32)
[2023-04-05] MEDS: Aspirin 81 MG TAB.CHEW PO (08:05)
[2023-04-05] MEDS: acetaZOLAMIDE 250 MG TABLET 500 MG PO (08:05)
[2023-04-05] MEDS: Potassium Chloride ER 10 MEQ TABLET.ER PO (08:05)
[2023-04-05] MEDS: Ferrous Sulfate 324 MG TABLET.DR PO (08:05)
[2023-04-05] MEDS: Losartan Potassium 25 MG TABLET PO (08:05)
[2023-04-05] MEDS: buPROPion HCl XL 150 MG TAB.ER.24H PO (08:05)
[2023-04-05] MEDS: amLODIPine Besylate 5 MG TABLET PO (08:05)
[2023-04-05] MEDS: ARIPiprazole 2 MG TABLET PO (08:05)
[2023-04-05] MEDS: Sertraline HCL 100 MG TABLET 200 MG PO (08:05)
[2023-04-05] MEDS: Cholecalciferol (Vitamin D3) 25 MCG TABLET PO (08:05)
[2023-04-05] MEDS: Empagliflozin 10 MG TABLET PO (08:05)
[2023-04-05] MEDS: Insulin Glargine,Hum.rec.anlog 100 UNIT/ML 10 ML VIAL 30 UNIT SUBCUT (08:07)
[2023-04-05] MEDS: Ergocalciferol (Vitamin D2) 1,250 MCG CAPSULE 1250 MCG PO (08:10)
--- NOTE | 2023-04-05 08:15 | P.DS_ITS ---
DS: Providers Provider Date of Service: 04/05/23 Date of admission: 04/04/23 16:08 Primary care physician: Unknown Physician DS: Diagnosis Discharge Diagnosis (1) Hypoventilation associated with obesity: Status: Acute (2) COPD (chronic obstructive pulmonary disease): Status: Acute (3) Morbid obesity with BMI of 50.0-59.9, adult: Status: Acute (4) Acute and chronic respiratory failure: Status: Acute DS: Summary Hospital Course Hospital Course: History and physical as per admitting provider. this is a 62-year-old female with history of COPD, chronic respiratory failure with hypoxia and hypercarbia on 2-3L of supplemental oxygen, SMILEY on bipap, obesity hypoventilation, HFpEF, recurrent admissions for acute on chronic respiratory failure who was sent in from? outpatient pulmonology due to elevated CO2.? Patient was in the outpatient setting for pulmonary follow-up appointment, she had routine ABG obtained which showed pCO2 of 72 and pH 7.25 therefore she was sent to the emergency department for evaluation.? She was placed on BiPAP and ABG was repeated several hours later and showed an improvement in her pCO2 to 52.? In the emergency department she was lethargic.? chest x-ray showed no evidence of pneumonia.? She was treated with a dose of IV Solu-Medrol and breathing treatment.? Given her persistent lethargy the decision was made to admit her to the hospital for further management of acute on chronic respiratory failure with hypoxia and hypercarbia.? patient was unable to provide any significant history. 62-year-old woman admitted with acute on chronic hypoxic / hypercarbic respiratory failure secondary to hypoventilation syndrome. Patient is chronically on BiPAP as needed usually at nighttime and for naps. She is also chronically on 2-3 L of supplemental oxygen. She received systemic steroids, was placed on BiPAP and scheduled breathing treatments. Her VBG improved, admitted with pCO2 of 72 down to 47. She had significant improvement in her mental status and stated that she feels better and wants to go back to the care home. no change in medications. DM type 2 . Continue medications Morbid obesity. BMI 52.5. Discussed importance of weight management as this may be contributing to worsening of other comorbidities chronic sacral decubitus ulcer. Frequent position changes Time Spent with Patient Time attestation: Total time managing care of this patient today ____ minutes. Discharge coordination time: Greater than 30 minutes Quality: Safe Use of Opioids Does Pt have an Active Cancer Diagnosis on the Problem List?: No Quality: Stroke Does the patient have a stroke diagnosis?: No Physical Exam Vital Signs: Vital Signs: Last Vital Signs Temp 98.4 F 04/05/23 07:16 Pulse 83 04/05/23 07:37 Resp 18 04/05/23 07:37 BP 138/85 04/05/23 07:16 Pulse Ox 96 04/05/23 07:16 O2 Del Method Oxymask 04/05/23 07:16 O2 Flow Rate 3 04/05/23 07:16 FiO2 28 04/04/23 14:35 BMI result Body Mass Index 52.5 Appearing in no acute distress head is normocephalic atraumatic eyes pupils are PERRLA sclera is anicteric mouth throat mucous membranes are intact and moist neck is supple no lymphadenopathy, no JVD noted lung sounds are clear to auscultation heart regular rate rhythm, clear S1, S2 positive bowel sounds, abdomen is soft, nontender , obese neuro patient is alert x3, no focal deficits DS: Data Data Completed and Pending Completed studies during hospitalization [Text1]: Procedures Assistance with Respiratory Ventilation, Less than 24 Consecutive Hours, Continuous Positive Airway Pressure (01/24/23) Insertion of Endotracheal Airway into Trachea, Via Natural or Artificial Opening (11/18/21) Insertion of Infusion Device into Superior Vena Cava, Percutaneous Approach (11/18/21) Introduction of Vasopressor into Peripheral Vein, Percutaneous Approach (11/18/21) Respiratory Ventilation, 24-96 Consecutive Hours (11/18/21) Ultrasonography of Superior Vena Cava, Guidance (11/18/21) Labs on day of discharge: Laboratory Results - last 24 hr 04/04/23 04/04/23 04/04/23 14:20 14:20 14:20 WBC 12.1 H RBC 4.94 Hgb 14.0 Hct 47.4 H MCV 96.0 MCH 28.3 MCHC 29.5 L RDW 14.4 Plt Count 222 D MPV 10.7 Immature Gran % (Auto) 0.5 H Neut % (Auto) 76.3 H Lymph % (Auto) 14.9 L Carbon % (Auto) 6.8 Eos % (Auto) 1.2 Baso % (Auto) 0.3 Lymph # (Auto) 1.8 Carbon # (Auto) 0.8 Eos # (Auto) 0.1 Baso # (Auto) 0.0 Abs Immat Gran (auto) 0.06 H Absolute Neuts (auto) 9.3 H Absolute Nucleated RBC 0.000 Nucleated RBC % (auto) 0.0 O2 Saturation ABG pH at Pt Temp ABG pCO2 at Pt Temp ABG pO2 at Pt Temp ABG HCO3 ABG Base Excess (Actual) VBG pH VBG pCO2 VBG pO2 VBG HCO3 VBG O2 Saturation VBG Base Excess Sodium 140 Potassium 4.5 Chloride 105 Carbon Dioxide 28 Anion Gap 12 BUN 21 H Creatinine 1.13 Estim Creat Clear Calc 81.3 Estimated GFR 49 POC Glucose Random Glucose 378 H* Calcium 9.1 Magnesium 2.3 Total Bilirubin 0.2 AST 12 ALT 16 Alkaline Phosphatase 78 Troponin I High Sens 14.1 B-Natriuretic Peptide Total Protein 7.5 Albumin 3.7 COVID-19 (LIS) COVID-19 [employer] 04/04/23 04/04/23 04/04/23 14:20 14:20 14:47 WBC RBC Hgb Hct MCV MCH MCHC RDW Plt Count MPV Immature Gran % (Auto) Neut % (Auto) Lymph % (Auto) Carbon % (Auto) Eos % (Auto) Baso % (Auto) Lymph # (Auto) Carbon # (Auto) Eos # (Auto) Baso # (Auto) Abs Immat Gran (auto) Absolute Neuts (auto) Absolute Nucleated RBC Nucleated RBC % (auto) O2 Saturation ABG pH at Pt Temp ABG pCO2 at Pt Temp ABG pO2 at Pt Temp ABG HCO3 ABG Base Excess (Actual) VBG pH 7.33 VBG pCO2 53 VBG pO2 107 VBG HCO3 28 H VBG O2 Saturation 100.0 VBG Base Excess 1.6 Sodium Potassium Chloride Carbon Dioxide Anion Gap BUN Creatinine Estim Creat Clear Calc Estimated GFR POC Glucose Random Glucose Calcium Magnesium Total Bilirubin AST ALT Alkaline Phosphatase Troponin I High Sens B-Natriuretic Peptide 28 Total Protein Albumin COVID-19 (LIS) Negative COVID-19 Clin Com See Note 04/04/23 04/04/23 04/04/23 15:26 17:41 19:21 WBC RBC Hgb Hct MCV MCH MCHC RDW Plt Count MPV Immature Gran % (Auto) Neut % (Auto) Lymph % (Auto) Carbon % (Auto) Eos % (Auto) Baso % (Auto) Lymph # (Auto) Carbon # (Auto) Eos # (Auto) Baso # (Auto) Abs Immat Gran (auto) Absolute Neuts (auto) Absolute Nucleated RBC Nucleated RBC % (auto) O2 Saturation 92.0 ABG pH at Pt Temp 7.28 L ABG pCO2 at Pt Temp 52 H ABG pO2 at Pt Temp 68 L ABG HCO3 24 ABG Base Excess (Actual) -2.4 VBG pH VBG pCO2 VBG pO2 VBG HCO3 VBG O2 Saturation VBG Base Excess Sodium Potassium Chloride Carbon Dioxide Anion Gap BUN Creatinine Estim Creat Clear Calc Estimated GFR POC Glucose 285 H 265 H Random Glucose Calcium Magnesium Total Bilirubin AST ALT Alkaline Phosphatase Troponin I High Sens B-Natriuretic Peptide Total Protein Albumin COVID-19 (LIS) [employer] 04/05/23 04/05/23 04/05/23 05:50 05:50 07:27 WBC 8.6 RBC 4.64 Hgb 13.4 Hct 43.0 MCV 92.7 MCH 28.9 MCHC 31.2 RDW 14.4 Plt Count 203 MPV 11.1 Immature Gran % (Auto) Neut % (Auto) Lymph % (Auto) Carbon % (Auto) Eos % (Auto) Baso % (Auto) Lymph # (Auto) Carbon # (Auto) Eos # (Auto) Baso # (Auto) Abs Immat Gran (auto) Absolute Neuts (auto) Absolute Nucleated RBC 0.000 Nucleated RBC % (auto) 0.0 O2 Saturation ABG pH at Pt Temp ABG pCO2 at Pt Temp ABG pO2 at Pt Temp ABG HCO3 ABG Base Excess (Actual) VBG pH VBG pCO2 VBG pO2 VBG HCO3 VBG O2 Saturation VBG Base Excess Sodium 143 Potassium 4.5 Chloride 107 Carbon Dioxide 28 Anion Gap 13 BUN 26 H Creatinine 1.10 Estim Creat Clear Calc 83.5 Estimated GFR 50 POC Glucose 270 H Random Glucose 291 H Calcium 9.6 Magnesium Total Bilirubin AST ALT Alkaline Phosphatase Troponin I High Sens B-Natriuretic Peptide Total Protein Albumin COVID-19 (LIS) COVID-[employer] Discharge Plan Discharge Anticipated Discharge Date/Time: 04/05/23 08:11 Patient Disposition: Xfer Inpatient Rehab Fac Discharge Diagnosis: Acute on chronic hypercarbic respiratory failure Hypoventilation obesity syndrome Referrals: [facility] [Outside] - 1 Week Discharge Medications: Continued furosemide 40 mg Tablet 40 mg PO DAILY Qty: 30 0RF Protocol: Hold for SBP< HOLD for SBP < : 90 ipratropium-albuterol 0.5 mg-3 mg(2.5 mg base)/3 mL Solution For Nebulization 3 ml INHALATION TID PRN (Reason: Wheezing) potassium chloride 10 mEq Tablet Extended Release 10 meq PO DAILY Hold Instructions: Recheck K level in 1 week to decide if needed or not. Rx Instructions: recheck K level in 1 week to decide if needed or not. Culturelle 10 billion cell Capsule 1 cap PO BID bupropion HCl 150 mg tablet extended release 24 hr 1 tab PO DAILY Rx Instructions: take with 300mg; tdd 450mg magnesium hydroxide [Milk of Magnesia] 400 mg/5 mL Suspension 30 ml PO DAILY PRN (Reason: Constipation) Rx Instructions: USE IF NO BOWEL MOVEMENT FOR 3 DAYS Fleet Enema 19-7 gram/118 mL Enema 118 ml [place] DAILY PRN (Reason: Constipation) Rx Instructions: IF NO BOWEL MOVEMENT 8 HOURS AFTER BISACODYL fluticasone propion-salmeterol [AirDuo RespiClick] 113-14 mcg/actuation aerosol powdr breath activated 1 inh inhalation BID Rx Instructions: rinse mouth after use AND SPIT OUT atorvastatin 80 mg Tablet 80 mg PO BEDTIME sennosides [senna] 8.6 mg Tablet 17.2 mg PO BEDTIME acetaminophen 325 mg Tablet 650 mg PO Q4H PRN (Reason: Fever Or Pain) polyethylene glycol 3350 [Miralax] 17 gram Powder In Packet 17 g PO DAILY PRN (Reason: Constipation) tizanidine 4 mg Tablet 4 mg PO BEDTIME PRN (Reason: Muscle Spasm) sertraline 100 mg Tablet 200 mg PO DAILY melatonin 3 mg Tablet 3 mg PO BEDTIME ferrous sulfate 325 mg (65 mg iron) Tablet 325 mg PO DAILY insulin lispro 100 unit/mL Insulin Pen See Protocol SUBCUT QIDACHS Protocol: Insulin Correction Scale Less than or equal to 110 ---- Give (units): 0 111 to 150 Give (units): 0 151 to 200 Give (units): 0 201 to 250 Give (units): 4 251 to 300 Give (units): 6 301 to 350 Give (units): 8 Greater than 350 Give (units): 10 Call MD if Blood Glucose > : 350 Rx Instructions: SLIDING SCALE IF BLOOD GLUCOSE GREATER THAN 400, GIVE 12 UNITS AND NOTIFY MD amlodipine 5 mg Tablet 5 mg PO DAILY 30 Days Qty: 30 0RF Protocol: Hold for SBP< HOLD for SBP < : 90 aspirin 81 mg Tablet,Chewable 81 mg PO DAILY acetazolamide 250 mg Tablet 500 mg PO BID Qty: 60 0RF aripiprazole 2 mg tablet 2 mg PO DAILY Jardiance 10 mg Tablet 10 mg PO DAILY 30 Days Qty: 30 0RF losartan 25 mg tablet 25 mg PO DAILY ergocalciferol (vitamin D2) 1,250 mcg (50,000 unit) Capsule 1,250 mcg PO SA cholecalciferol (vitamin D3) 25 mcg (1,000 unit) Tablet 25 mcg PO DAILY olopatadine 0.2 % Drops 1 drp OPHTHALMIC (EYE) BEDTIME megestrol 400 mg/10 mL (40 mg/mL) suspension 400 mg PO TID insulin glargine [Lantus U-100 Insulin] 100 unit/mL solution 40 unit subcut DAILY metformin 500 mg tablet 500 mg PO BID Ozempic 0.25 mg or 0.5 mg (2 mg/3 mL) pen injector 0.5 mg subcut WE Rx Instructions: CHANGE TO 0.50 MG STARTING 01/22/23 bisacodyl 10 mg suppository 10 mg [place] DAILY PRN (Reason: Constipation) Rx Instructions: GIVE IF NO RESULT FROM MILK OF MAGNESIA magnesium citrate [Citrate of Magnesia] Solution 150 ml PO DAILY PRN (Reason: Constipation) Rx Instructions: IF NO BOWEL MOVEMENT 12 HOURS AFTER FLEET ENEMA bupropion HCl 300 mg tablet extended release 24 hr 300 mg PO DAILY Rx Instructions: take with 150mg dose; tdd 450mg Discharge Orders: Discharge Order (Routine); Ordered 04/05/23 Ordered By: Belinda Brooks Diet: Advance to usual diet Activity on Discharge: As tolerated Stand Alone Forms: Patient Portal Discharge page Care Plan Goals: continue home BiPAP as needed Health Concerns: Acute on chronic hypercarbic respiratory failure Hypoventilation obesity syndrome Plan of Treatment: Follow-up with primary care provider and bilingual speech language pathologist as needed Assessment: see discharge summary
[2023-04-05 08:41] LABS: VBG Base Excess 3.5 mmol/L; VBG HCO3 29 mmol/L (22-26); VBG pCO2 47 mmHg; VBG pH 7.39 (7.32-7.43); VBG pO2 73 mmHg
[2023-04-05 08:45] LABS: Venous Blood Gas Refer to POC result
--- NOTE | 2023-04-05 10:24 | MHC.CM.PN ---
IMM 04/05. Pt from [facility], getting STR. D/C plan to return to [facility]. HCP/MOLST on file and verified. Transportation via S/[facility]. Pt uses a walker and wheelchair. PCP: Tita Merida vax: x 3
--- NOTE | 2023-04-05 10:26 | MHC.CM.PN ---
Pt medically cleared for D/C back to [facility] for STR, transportation booked via BLS/[facility] at 1pm today.
[2023-04-05 11:05] VITALS: BP 141/86; PULSE 89; RESP 18; TEMP 36.9; O2SAT 93
[2023-04-05 11:12] LABS: Glucose, Whole Blood 380 mg/dL (60-115)
== END 2023-04-05 12:54 | DRG 190 ==
LOC: HO.ED 14:01 → HO.EDOVER 16:28 → HO.IMC 17:12
PROVIDERS: Physician Assistant Medical; Admitting Provider Physician Assistant Medical; Emergency Provider Emergency Medicine; PCP Internal Medicine; Visit Provider Nurse Practitioner Acute Care
DX: J44.1 Chronic obstructive pulmonary disease with (acute) exacerbation (principal); G93.41 Metabolic encephalopathy; J96.21 Acute and chronic respiratory failure with hypoxia; J96.22 Acute and chronic respiratory failure with hypercapnia; E66.2 Morbid (severe) obesity with alveolar hypoventilation; Z68.43 Body mass index [BMI] 50.0-59.9, adult; E11.9 Type 2 diabetes mellitus without complications; Z99.81 Dependence on supplemental oxygen; Z87.891 Personal history of nicotine dependence; Z91.040 Latex allergy status; Z79.4 Long term (current) use of insulin; Z79.51 Long term (current) use of inhaled steroids; Z79.82 Long term (current) use of aspirin; Z79.84 Long term (current) use of oral hypoglycemic drugs; Z79.899 Other long term (current) drug therapy
CPT/HCPCS: 36415; 71045; 80048; 80053; 82803; 82947; 83735; 83880; 84484; 85025; 85027; 87635; 93005; 94640; 94660; 99285; J1643; J2920; J2930

== ENCOUNTER → 2023-04-04 13:04 | Outpatient (BNV) | payer OTHER, MEDICARE, MEDICAID, SELFPAY | PROVIDERS: Admitting Provider Physician Assistant Medical; Emergency Provider Emergency Medicine; Visit Provider Internal Medicine Cardiovascular Disease | DX: I49.1 Atrial premature depolarization (principal); R94.31 Abnormal electrocardiogram [ECG] [EKG] | CPT/HCPCS: 93010 ==

== ENCOUNTER → 2023-04-04 16:08 | Outpatient (BNV) | payer OTHER, MEDICAID, SELFPAY | PROVIDERS: Admitting Provider Physician Assistant Medical; Emergency Provider Emergency Medicine; Visit Provider Nurse Practitioner Acute Care | DX: J44.9 Chronic obstructive pulmonary disease, unspecified (principal); J96.20 Acute and chronic respiratory failure, unspecified whether with hypoxia or hypercapnia; E66.2 Morbid (severe) obesity with alveolar hypoventilation; Z68.43 Body mass index [BMI] 50.0-59.9, adult | CPT/HCPCS: 99223; 99239 ==

== ENCOUNTER 2023-04-21 13:14 | Outpatient (AMB) | payer OTHER, MEDICARE, MEDICAID, SELFPAY ==
--- NOTE | 2023-04-21 13:36 | A.OFFVIS_ITS ---
Intake Vital Signs 04/21/23 13:37 Height 5 ft 8 in BMI Reason not done Patient refused/unable BP 130/56 L Blood Pressure Location Lt brachial Position Sitting Pulse 77 Intake Visit Reasons: 6 mth Med ck Intake Note: 6 month follow up Proof Carrier Required: No Accompanied by: EMT Allergies latex Allergy (Unknown, Verified 04/21/23 13:40) Unknown adhesive tape Adverse Reaction (Unknown, Verified 04/21/23 13:40) Unknown bupropion [From Wellbutrin] Adverse Reaction (Unknown, Verified 04/21/23 13:40) Unknown ibuprofen Adverse Reaction (Unknown, Verified 04/21/23 13:40) Unknown Medication List - Last Reconciled 04/21/23 by Dallas Ochoa MD acetaminophen 650 mg PO Q4H PRN acetazolamide 500 mg (2 x 250 mg) PO BID amlodipine 5 mg See Protocol PO DAILY 30 days aripiprazole 2 mg PO DAILY aspirin 81 mg PO DAILY atorvastatin 80 mg PO BEDTIME bisacodyl 10 mg IN DAILY PRN bupropion HCl 1 tab PO DAILY bupropion HCl 300 mg PO DAILY cholecalciferol (vitamin D3) 25 mcg PO DAILY cyanocobalamin (vitamin B-12) 1,000 mcg PO DAILY empagliflozin (Jardiance) 10 mg PO DAILY 30 days ergocalciferol (vitamin D2) 1,250 mcg PO SA ferrous sulfate 325 mg PO DAILY fluticasone propion-salmeterol 113-14 mcg/actuation (AirDuo RespiClick) 1 inh inhalation BID furosemide 40 mg See Protocol PO DAILY insulin glargine (Lantus U-100 Insulin) 40 units subcut DAILY insulin lispro See Protocol units subcut QIDACHS ipratropium-albuterol 0.5 mg-3 mg(2.5 mg base)/3 mL 3 mL inhalation TID PRN Lactobacillus rhamnosus GG (Culturelle) 1 cap PO BID losartan 25 mg PO DAILY magnesium citrate (Citrate of Magnesia oral) 150 mL PO DAILY PRN magnesium hydroxide (Milk of Magnesia) 30 mL PO DAILY PRN megestrol 400 mg PO TID melatonin 3 mg PO BEDTIME metformin 500 mg PO BID olopatadine 0.2% 1 drp ophthalmic (eye) BEDTIME polyethylene glycol 3350 (Miralax) 17 grams PO DAILY PRN potassium chloride ER 10 mEq PO DAILY semaglutide (Ozempic) 0.5 mg subcut WE sennosides (senna) 17.2 mg PO BEDTIME sertraline 200 mg PO DAILY sodium phosphates 19-7 gram/118 mL (Fleet Enema) 118 mL IN DAILY PRN tizanidine 4 mg PO BEDTIME PRN HPI HPI Comments History of Present Illness Details Bonnie returns for follow-up. She was seen a few months back. Available [facility] documentation reviewed. Patient has a history of left bundle-branch block, hypertension, diabetes, severe obesity, heart failure preserved ejection fraction. She initially came with hypoxic respiratory failure and hypotension. Then it seems that she got transferred to [facility]. Then underwent pacemaker placement. During that admission, also described to have had COVID pneumonia. Today, she comes in a stretcher, brought by ambulance. Does not look like she has much of ambulation at all. Significant weakness and difficulty moving. No cardiac symptoms whatsoever. Of note, she has also seen by [facility] concurrently. Hence it seems that this visit appointment was made in our. Otherwise, in the past, she was seen by Dr. Navas, [facility]. Per his note, it seems that patient had abnormal nuclear stress November 2020/possible wall motion abnormality on echo, medically managed. [facility] Medical History Acute and chronic respiratory failure Acute and chronic respiratory failure with hypercapnia Acute and chronic respiratory failure with hypercapnia Acute on chronic respiratory failure with hypoxia and hypercapnia Anemia Arthritis Atelectasis of both lungs CHF (congestive heart failure) Clostridium difficile infection COPD (chronic obstructive pulmonary disease) Depression Diabetes mellitus, type 2 Diabetic ulcer of foot associated with diabetes mellitus due to underlying condition, with fat layer exposed Heart block AV third degree Hypertension Hypertrophic nonobstructive cardiomyopathy Hypoventilation associated with obesity Hypoventilation associated with obesity syndrome Metabolic encephalopathy Morbid obesity Morbid obesity Morbid obesity Morbid obesity with BMI of 50.0-59.9, adult Obesity hypoventilation syndrome SMILEY (obstructive sleep apnea) PAD (peripheral artery disease) Presence of permanent cardiac pacemaker Presence of permanent cardiac pacemaker Pressure injury of deep tissue of buttock Pressure ulcer, stage II, skin breakdown Pulmonary embolism Respiratory failure Respiratory failure with hypoxia and hypercapnia Sick sinus syndrome Urinary tract infection due to ESBL Klebsiella Surgical History History of total knee replacement Social History Household Members: Unknown / Unable to assess Housing: Care Home Housing Other:: SNF Are you a primary client care coordinator to a significant other at home: No Do you presently have visiting nurse or other home services: No Unable to assess alcohol history related to: Unable to respond Alcohol intake: former Patient Tobacco Use Status: Former Tobacco user Quit Date: 30years ago Tobacco use type: Cigarette Cigarette Packs Per Day: 20 Cigarettes Per Day: 400.0 Years Smoked: 20 e-Cigarette/Vaping Use: Never Used Second Hand Smoke Exposure: No Substance Use Type: Unknown Advance Directives Date on File: 01/07/23 service: No Current occupational status: disabled Review of Systems Const Denies weakness ENT Denies dizziness Card Denies chest pain, Denies chest pain with activity, Denies syncope, Denies rapid heart rate, Denies pedal edema, Denies edema, Denies leg edema, Denies lightheadedness, Denies palpitations, Denies dyspnea, Denies dyspnea on exertion and Denies orthopnea Resp Denies cough, Denies dyspnea and Denies dyspnea on exertion GI Denies hematochezia and Denies change in stool character Musc Denies abnormal gait, Denies muscle cramps, Denies muscle weakness, Denies numbness, Denies radiating pain into limb and Denies tingling Neuro Denies abnormal gait, Denies dizziness, Denies syncope, Denies numbness, Denies tingling and Denies weakness Endo Denies palpitations Physical Exam Vital Signs: Last Vital Signs Pulse 77 04/21/23 13:37 BP 130/56 L 04/21/23 13:37 Const General: comfortable and no acute distress Orientation/consciousness: patient oriented x3 HEENT Other: Unremarkable Head: Yes normal to inspection Neck Neck: Yes normal visual inspection Chest Chest palpation & inspection: normal inspection of the chest Resp Auscultation: clear to auscultation bilaterally Cardio Palpation: normal PMI Heart sounds: S1 normal heart sound present, S2 normal heart sound present, no gallops, no murmurs and no rubs GI Palpation (GI): Soft to palpation Back/Spine/Pelvis Other: unremarkable Skin General skin exam: no rashes or lesions noted Neuro General: patient oriented x3 Extrem General: Yes normal to inspection Psych Mental Status: mental status grossly normal Assessment & Plan Assessment & Plan (1) Heart block AV third degree: Code(s): I44.2 - Atrioventricular block, complete (2) Presence of permanent cardiac pacemaker: Code(s): Z95.0 - Presence of cardiac pacemaker Plan In the most recent echocardiogram, LVEF 60-65%. Moderate left ventricle hypertrophy/a symmetric septal hypertrophy. No obvious valvular pathology. Normal RV systolic pressure. Diastolic function was indeterminate. During last visit, pacer was interrogated and was functioning normally. Overall, no changes made in this visit. Due to duplication of cardiac care and confusion, advised to just follow-up with only 1 cooling room attendant-at [facility] where they are already going; it appears that the pacemaker is also being followed there. Medications: Discontinued insulin glargine 40 units (0.4 mL) subcut DAILY 10 mL 0RF Coding Level of Care Code Est Pt Level 3 (06833) Diagnoses Heart block AV third degree I44.2 Presence of permanent cardiac pacemaker Z95.0
[2023-04-21 13:37] VITALS: BP 130/56; PULSE 77
== END 2023-04-21 14:22 | disposition home or self-care (01) ==
PROVIDERS: PCP Internal Medicine; Referring Provider Internal Medicine; Visit Provider Internal Medicine
DX: I44.2 Atrioventricular block, complete (principal); Z95.0 Presence of cardiac pacemaker
CPT/HCPCS: 99213

== ENCOUNTER → 2023-04-21 13:14 | Outpatient (BNVA) | payer OTHER, MEDICARE, MEDICAID, SELFPAY | PROVIDERS: PCP Internal Medicine; Referring Provider Internal Medicine; Visit Provider Internal Medicine ==

== ENCOUNTER 2023-05-31 13:16 | Inpatient (IN) | payer MEDICARE, MEDICAID, SELFPAY ==
[2023-05-31] VITALS (7 sets, daily range): BP systolic 115–160; BP diastolic 73–81; PULSE 80–96; RESP 16–26; TEMP 36.9; O2SAT 89–97; BMI 47.5
--- NOTE | 2023-05-31 13:22 | ECG_ITS ---
Test Reason : SOB Blood Pressure : / mmHG Vent. Rate : 075 BPM Atrial Rate : 075 BPM P-R Int : 188 ms QRS Dur : 162 ms QT Int : 420 ms P-R-T Axes : 039 -32 095 degrees QTc Int : 469 ms Normal sinus rhythm Left axis deviation Left bundle branch block Abnormal ECG When compared with ECG of 04-APR-2023 13:53, Premature atrial complexes are no longer Present Nonspecific T wave abnormality has replaced inverted T waves in Lateral leads Referred By: Nadine Gonzalez Electronically Signed By:IJEOMA PEREIRA
--- NOTE | 2023-05-31 13:23 | ED_ITS ---
HPI - SOB/Dyspnea General Chief Complaint: Dyspnea Stated Complaint: RESPIRATORY DISTRESS Time Seen by Provider: 05/31/23 13:22 Source: patient and EMS Mode of arrival: EMS History of Present Illness HPI Narrative: 62-year-old female known to this facility is brought in by EMS from [facility] where staff found patient at 39% on at baseline 4 L of nasal cannula, patient is supposed to be on CPAP but there is both patient and staff compliance issues. Reportedly, the patient pulls the mask off. EMS was able to get her on CPAP and on arrival she is noted to be 93% and has a history of COPD and CHF. Related Data Home Medications Medication Instructions Recorded Confirmed acetaminophen 325 mg tablet 650 mg PO Q4H PRN Fever Or Pain 11/18/21 04/21/23 atorvastatin 80 mg tablet 80 mg PO BEDTIME 11/18/21 04/21/23 ferrous sulfate 325 mg (65 mg 325 mg PO DAILY 11/18/21 04/21/23 iron) tablet insulin lispro 100 unit/mL See Protocol subcut QIDACHS 11/18/21 04/21/23 subcutaneous pen melatonin 3 mg tablet 3 mg PO BEDTIME 11/18/21 04/21/23 polyethylene glycol 3350 17 gram 17 g PO DAILY PRN Constipation 11/18/21 04/21/23 oral powder packet (Miralax) sennosides 8.6 mg tablet (senna) 17.2 mg PO BEDTIME 11/18/21 04/21/23 sertraline 100 mg tablet 200 mg PO DAILY 11/18/21 04/21/23 tizanidine 4 mg tablet 4 mg PO BEDTIME PRN Muscle Spasm 11/18/21 04/21/23 aspirin 81 mg chewable tablet 81 mg PO DAILY 01/05/22 04/21/23 bupropion HCl 300 mg 24 hr tablet, 300 mg PO DAILY 04/09/22 04/21/23 extended release Lactobacillus rhamnosus GG 10 1 cap PO BID 10/09/22 04/21/23 billion cell capsule (Culturelle) bupropion HCl 150 mg 24 hr tablet, 1 tab PO DAILY 10/09/22 04/21/23 extended release ipratropium 0.5 mg-albuterol 3 mg 3 ml inhalation TID PRN Wheezing 10/09/22 04/21/23 (2.5 mg base)/3 mL nebulization soln potassium chloride 10 mEq 10 meq PO DAILY 10/09/22 04/21/23 tablet,extended release bisacodyl 10 mg rectal suppository 10 mg SC DAILY PRN Constipation 10/21/22 04/21/23 magnesium citrate (Citrate of 150 ml PO DAILY PRN Constipation 10/21/22 04/21/23 Magnesia oral) fluticasone 113 mcg-salmeterol 14 1 inh inhalation BID 11/09/22 04/21/23 mcg/actuation breath activated powdr (AirDuo RespiClick) magnesium hydroxide 400 mg/5 mL 30 ml PO DAILY PRN Constipation 11/09/22 04/21/23 oral suspension (Milk of Magnesia) sodium phosphates 19 gram-7 118 ml SC DAILY PRN Constipation 11/09/22 04/21/23 gram/118 mL enema (Fleet Enema) metformin 500 mg tablet 500 mg PO BID 12/27/22 04/21/23 semaglutide 0.25 mg or 0.5 mg (2 0.5 mg subcut WE 12/27/22 04/21/23 mg/3 mL) subcutaneous pen injector (Ozempic) aripiprazole 2 mg tablet 2 mg PO DAILY 01/12/23 04/21/23 cholecalciferol (vitamin D3) 25 25 mcg PO DAILY 04/04/23 04/21/23 mcg (1,000 unit) tablet ergocalciferol (vitamin D2) 1,250 1,250 mcg PO SA 04/04/23 04/21/23 mcg (50,000 unit) capsule insulin glargine 100 unit/mL 40 unit subcut DAILY 04/04/23 04/21/23 subcutaneous solution (Lantus U-100 Insulin) losartan 25 mg tablet 25 mg PO DAILY 04/04/23 04/21/23 megestrol 400 mg/10 mL (40 mg/mL) 400 mg PO TID 04/04/23 04/21/23 oral suspension olopatadine 0.2 % eye drops 1 drp ophthalmic (eye) BEDTIME 04/04/23 04/21/23 cyanocobalamin (vitamin B-12) 1,000 mcg PO DAILY 04/21/23 04/21/23 1,000 mcg capsule Previous Rx's Medication Instructions Recorded amlodipine 5 mg tablet 5 mg PO DAILY 30 days #30 tabs 11/26/21 furosemide 40 mg tablet 40 mg PO DAILY #30 tabs 04/05/22 acetazolamide 250 mg tablet 500 mg (2 x 250 mg) PO BID #60 tabs 01/06/23 empagliflozin 10 mg tablet 10 mg PO DAILY 30 days #30 tabs 01/17/23 (Jardiance) Allergies Allergy/AdvReac Type Severity Reaction Status Date / Time latex Allergy Unknown Unknown Verified 04/21/23 13:40 adhesive tape AdvReac Unknown Unknown Verified 04/21/23 13:40 bupropion [From Wellbutrin] AdvReac Unknown Unknown Verified 04/21/23 13:40 ibuprofen AdvReac Unknown Unknown Verified 04/21/23 13:40 Review of Systems 2 Review of Systems: Pertinent positives and negatives as stated in [facility] Past Medical History Source: nursing notes reviewed Medical History Hypoventilation associated with obesity COPD (chronic obstructive pulmonary disease) Morbid obesity with BMI of 50.0-59.9, adult Acute and chronic respiratory failure Pressure injury of deep tissue of buttock Pressure ulcer, stage II, skin breakdown Hypertrophic nonobstructive cardiomyopathy Presence of permanent cardiac pacemaker Acute on chronic respiratory failure with hypoxia and hypercapnia Acute and chronic respiratory failure with hypercapnia Metabolic encephalopathy Morbid obesity Acute and chronic respiratory failure with hypercapnia Urinary tract infection due to ESBL Klebsiella Respiratory failure Presence of permanent cardiac pacemaker Sick sinus syndrome Obesity hypoventilation syndrome Morbid obesity Heart block AV third degree PAD (peripheral artery disease) Diabetic ulcer of foot associated with diabetes mellitus due to underlying condition, with fat layer exposed Atelectasis of both lungs Respiratory failure with hypoxia and hypercapnia Hypoventilation associated with obesity syndrome SMILEY (obstructive sleep apnea) Morbid obesity Pulmonary embolism CHF (congestive heart failure) Clostridium difficile infection Hypertension Diabetes mellitus, type 2 Depression Arthritis Anemia Surgical History History of total knee replacement Social History Social History Household Members: Unknown / Unable to assess Housing: Detention Housing Other:: SNF Are you a primary childcare teacher to a significant other at home: No Do you presently have visiting nurse or other home services: No Unable to assess alcohol history related to: Unable to respond Alcohol intake: never Patient Tobacco Use Status: Former Tobacco user Quit Date: 30years ago Tobacco use type: Cigarette Cigarette Packs Per Day: 20 Cigarettes Per Day: 400.0 Years Smoked: 20 Smoked in Last 30 Days: No e-Cigarette/Vaping Use: Never Used Second Hand Smoke Exposure: No Use of substances other than those prescribed or required for medical reasons: No Substance Use Type: Unknown Advance Directives: Yes Advance Directives on File: Yes Advance Directives Date on File: 01/07/23 Patient : No service: No Current occupational status: disabled Physical Exam 2 Vital Signs: Vital Signs: Last Vital Signs Temp 98.4 F 05/31/23 13:25 Pulse 93 05/31/23 13:25 Resp 26 H 05/31/23 13:31 BP 137/75 05/31/23 13:25 Pulse Ox 90 L 05/31/23 13:25 O2 Del Method BiPAP 05/31/23 13:25 Oxygen Flow Rate 30 05/31/23 13:25 BMI result Body Mass Index 47.5 VITAL SIGNS: Reviewed. GENERAL: Elevated BMI, Well developed, well nourished, in no acute distress. HEAD: Normocephalic/atraumatic EYES: PERRLA, EOMI EARS: Ext canals without abnormality NOSE: Nares patent bilateral OROPHARYNX: no oral lesions noted, posterior pharynx clear NECK: Supple, no adenopathy LUNGS: Normal breath sounds. No adventitious sounds or accessory muscle use. SpO2<93>CPAP CARDIOVASCULAR: Regular rate and rhythm without noted murmurs, no JVD or lower extremity edema. ABDOMEN: Soft, non-tender, non-distended with bowel sounds. MUSCULOSKELETAL: No tenderness, deformities, or effusions noted on gross inspection. EXTREMITIES: No cyanosis, clubbing or edema. SKIN: Inspection of the skin reveals no rashes NEUROLOGIC: Alert and oriented x 3. Strength and sensation to light touch were grossly intact x 4. Bedside Ultrasound not significant for pulmonary edema, no pericardial effusion Medical Decision Making Medical Decision Making MDM Narrative: 62-year-old female with history and clinical presentation, DDX: Suspect COPD/SMILEY, bedside ultrasound not suggestive of fluid overload, there are no rales and no lower extremity edema. Patient has significantly improved already on CPAP and was transitioned on to BiPAP. I reviewed all investigations and hematologic indices are negative for leukocytosis and chronically stable left shift, there is a macrocytic anemia and no thrombocytopenia. Coagulation studies are grossly within normal limits. VBG is negative for respiratory acidosis and pCO2 is 44. Chemistry indices are grossly stable there is no electrolyte or liver enzyme abnormalities and there is no BERNIE. I sensitivity troponin is detectable but not elevated and BNP is 46 the latter further corroborates the bedside ultrasound findings. Viral testing is negative for COVID-19 and influenza. Signed out to Dr Rodriguez - f/u VBG - if able to tolerate 4L nasal cannula can return to facility Differential Diagnosis Differential Diagnoses: The differential diagnosis associated with the presentation includes Please see the discussion above Admission/Observation Consideration of admission/observation: Escalation of care including admission/observation considered Please see the discussion above Lab Data MDM Lab Attestation statement: I reviewed the patient's lab results. Please see the discussion above 05/31/23 13:23 05/31/23 13:28 Labs: Lab Results 05/31/23 05/31/23 05/31/23 Range/Units 13:23 13:28 14:59 WBC 7.6 (4.8-10.8) X10*3/uL RBC 4.23 (4.20-5.50) X10*6/uL Hgb 11.9 L (12.0-16.0) g/dl Hct 42.9 (37.0-47.0) % MCV 101.4 H (80.0-98.0) fL MCH 28.1 (27.0-33.0) pg MCHC 27.7 L (31.0-35.0) g/dl RDW 15.3 (11.0-16.0) % Plt Count 202 (160-400) X10*3/uL MPV 10.7 (9.4-12.3) fL Immature Gran % (Auto) 0.5 H (0.0-0.4) % Neut % (Auto) 75.1 H (45-73) % Lymph % (Auto) 15.5 L (20-40) % Summit % (Auto) 7.2 (2-11) % Eos % (Auto) 1.3 (0-4) % Baso % (Auto) 0.4 (0-2) % Lymph # (Auto) 1.2 (1.2-4.9) X10*3/uL Summit # (Auto) 0.6 (0.1-1.2) X10*3/uL Eos # (Auto) 0.1 (0.0-0.4) X10*3/uL Baso # (Auto) 0.0 (0.0-0.2) X10*3/uL Abs Immat Gran (auto) 0.04 H (0.00-0.03) X10*3/uL Absolute Neuts (auto) 5.7 (2.0-8.3) x10*3/uL Absolute Nucleated RBC 0.050 H (0.0-0.012) X10*3/uL Nucleated RBC % (auto) 0.7 H (0.0-0.2) /100WBC PT (11.1-13.3) SEC INR (0.9-1.1) VBG pH 7.49 H (7.32-7.43) VBG pCO2 44 mmHg VBG pO2 133 mmHg VBG HCO3 34 H (22-26) mmol/L VBG O2 Saturation 99.0 % VBG Base Excess 9.9 mmol/L Sodium 144 (135-145) mmol/L Potassium 4.6 (3.3-5.1) mmol/L Chloride 109 H (96-108) mmol/L Carbon Dioxide 26 (22-29) mmol/L Anion Gap 14 (12-20) BUN 24 H (9-16) mg/dL Creatinine 0.71 (0.5-1.4) mg/dL Estim Creat Clear Calc 133.5 Estimated GFR > 60 Random Glucose 87 (60-115) mg/dL Calcium 7.8 L D (8.4-10.2) mg/dL Total Bilirubin 0.2 (0.0-1.0) mg/dL AST 15 (5-31) U/L ALT 8 (0-31) U/L Alkaline Phosphatase 53 (39-117) U/L Troponin I High Sens 10.9 (<3.5-17.0) ng/L B-Natriuretic Peptide 46 (<100) pg/mL Total Protein 6.3 L (6.5-8.0) g/dL Albumin 3.1 L (3.5-5.0) g/dL COVID-19 (LIS) Negative (Negative) COVID-19 Clin Com See Note Influenza Type A (CHUNG) Negative (Negative) Influenza Type B (CHUNG) Negative (Negative) Influenza A & B Note See Note 05/31/23 Range/Units 15:12 WBC (4.8-10.8) X10*3/uL RBC (4.20-5.50) X10*6/uL Hgb (12.0-16.0) g/dl Hct (37.0-47.0) % MCV (80.0-98.0) fL MCH (27.0-33.0) pg MCHC (31.0-35.0) g/dl RDW (11.0-16.0) % Plt Count (160-400) X10*3/uL MPV (9.4-12.3) fL Immature Gran % (Auto) (0.0-0.4) % Neut % (Auto) (45-73) % Lymph % (Auto) (20-40) % Summit % (Auto) (2-11) % Eos % (Auto) (0-4) % Baso % (Auto) (0-2) % Lymph # (Auto) (1.2-4.9) X10*3/uL Summit # (Auto) (0.1-1.2) X10*3/uL Eos # (Auto) (0.0-0.4) X10*3/uL Baso # (Auto) (0.0-0.2) X10*3/uL Abs Immat Gran (auto) (0.00-0.03) X10*3/uL Absolute Neuts (auto) (2.0-8.3) x10*3/uL Absolute Nucleated RBC (0.0-0.012) X10*3/uL Nucleated RBC % (auto) (0.0-0.2) /100WBC PT 12.0 (11.1-13.3) SEC INR 1.0 (0.9-1.1) VBG pH (7.32-7.43) VBG pCO2 mmHg VBG pO2 mmHg VBG HCO3 (22-26) mmol/L VBG O2 Saturation % VBG Base Excess mmol/L Sodium (135-145) mmol/L Potassium (3.3-5.1) mmol/L Chloride (96-108) mmol/L Carbon Dioxide (22-29) mmol/L Anion Gap (12-20) BUN (9-16) mg/dL Creatinine (0.5-1.4) mg/dL Estim Creat Clear Calc Estimated GFR Random Glucose (60-115) mg/dL Calcium (8.4-10.2) mg/dL Total Bilirubin (0.0-1.0) mg/dL AST (5-31) U/L ALT (0-31) U/L Alkaline Phosphatase (39-117) U/L Troponin I High Sens (<3.5-17.0) ng/L B-Natriuretic Peptide (<100) pg/mL Total Protein (6.5-8.0) g/dL Albumin (3.5-5.0) g/dL COVID-19 (LIS) (Negative) COVID-19 Clin Com Influenza Type A (CHUNG) (Negative) Influenza Type B (CHUNG) (Negative) Influenza A & B Note Independent Interpretation I performed an independent interpretation of an: EKG Interpretation: Normal sinus rhythm, LBBB at baseline, HR-75, no STEMI, SC/QTC is within normal limits. External Record Review External record reviewed: Outpatient record, Prior outpatient labs and Prior outpatient radiology Chronic Conditions Patient?s care impacted by: Other COPD Critical Care Time Critical Care Time Critical Care Time: Yes Total Critical Care Time: 45 Attestation: I personally attest to this time spent taking care of the patient. Discharge Plan Discharge Clinical Impression: Acute respiratory failure with hypoxia Patient Disposition: Still a Patient Prescriptions: No Action furosemide 40 mg Tablet 40 mg PO DAILY Qty: 30 0RF Protocol: Hold for SBP< HOLD for SBP < : 90 ipratropium-albuterol 0.5 mg-3 mg(2.5 mg base)/3 mL Solution For Nebulization 3 ml INHALATION TID PRN (Reason: Wheezing) potassium chloride 10 mEq Tablet Extended Release 10 meq PO DAILY Hold Instructions: Recheck K level in 1 week to decide if needed or not. Rx Instructions: recheck K level in 1 week to decide if needed or not. Culturelle 10 billion cell Capsule 1 cap PO BID bupropion HCl 150 mg tablet extended release 24 hr 1 tab PO DAILY Rx Instructions: take with 300mg; tdd 450mg magnesium hydroxide [Milk of Magnesia] 400 mg/5 mL Suspension 30 ml PO DAILY PRN (Reason: Constipation) Rx Instructions: USE IF NO BOWEL MOVEMENT FOR 3 DAYS Fleet Enema 19-7 gram/118 mL Enema 118 ml SC DAILY PRN (Reason: Constipation) Rx Instructions: IF NO BOWEL MOVEMENT 8 HOURS AFTER BISACODYL fluticasone propion-salmeterol [AirDuo RespiClick] 113-14 mcg/actuation aerosol powdr breath activated 1 inh inhalation BID Rx Instructions: rinse mouth after use AND SPIT OUT atorvastatin 80 mg Tablet 80 mg PO BEDTIME sennosides [senna] 8.6 mg Tablet 17.2 mg PO BEDTIME acetaminophen 325 mg Tablet 650 mg PO Q4H PRN (Reason: Fever Or Pain) polyethylene glycol 3350 [Miralax] 17 gram Powder In Packet 17 g PO DAILY PRN (Reason: Constipation) tizanidine 4 mg Tablet 4 mg PO BEDTIME PRN (Reason: Muscle Spasm) sertraline 100 mg Tablet 200 mg PO DAILY melatonin 3 mg Tablet 3 mg PO BEDTIME ferrous sulfate 325 mg (65 mg iron) Tablet 325 mg PO DAILY insulin lispro 100 unit/mL Insulin Pen See Protocol SUBCUT QIDACHS Protocol: Insulin Correction Scale Less than or equal to 110 ---- Give (units): 0 111 to 150 Give (units): 0 151 to 200 Give (units): 0 201 to 250 Give (units): 4 251 to 300 Give (units): 6 301 to 350 Give (units): 8 Greater than 350 Give (units): 10 Call MD if Blood Glucose > : 350 Rx Instructions: SLIDING SCALE IF BLOOD GLUCOSE GREATER THAN 400, GIVE 12 UNITS AND NOTIFY MD amlodipine 5 mg Tablet 5 mg PO DAILY 30 Days Qty: 30 0RF Protocol: Hold for SBP< HOLD for SBP < : 90 aspirin 81 mg Tablet,Chewable 81 mg PO DAILY acetazolamide 250 mg Tablet 500 mg PO BID Qty: 60 0RF aripiprazole 2 mg tablet 2 mg PO DAILY Jardiance 10 mg Tablet 10 mg PO DAILY 30 Days Qty: 30 0RF losartan 25 mg tablet 25 mg PO DAILY ergocalciferol (vitamin D2) 1,250 mcg (50,000 unit) Capsule 1,250 mcg PO SA cholecalciferol (vitamin D3) 25 mcg (1,000 unit) Tablet 25 mcg PO DAILY olopatadine 0.2 % Drops 1 drp OPHTHALMIC (EYE) BEDTIME megestrol 400 mg/10 mL (40 mg/mL) suspension 400 mg PO TID insulin glargine [Lantus U-100 Insulin] 100 unit/mL solution 40 unit subcut DAILY metformin 500 mg tablet 500 mg PO BID Ozempic 0.25 mg or 0.5 mg (2 mg/3 mL) pen injector 0.5 mg subcut WE Rx Instructions: CHANGE TO 0.50 MG STARTING 01/22/23 bisacodyl 10 mg suppository 10 mg SC DAILY PRN (Reason: Constipation) Rx Instructions: GIVE IF NO RESULT FROM MILK OF MAGNESIA magnesium citrate [Citrate of Magnesia] Solution 150 ml PO DAILY PRN (Reason: Constipation) Rx Instructions: IF NO BOWEL MOVEMENT 12 HOURS AFTER FLEET ENEMA cyanocobalamin (vitamin B-12) 1,000 mcg capsule 1,000 mcg PO DAILY bupropion HCl 300 mg tablet extended release 24 hr 300 mg PO DAILY Rx Instructions: take with 150mg dose; tdd 450mg
[2023-05-31 13:32] LABS: MANUAL DIFF FLAG NO
[2023-05-31 13:33] LABS: Venous Blood Gas Refer to POC result
[2023-05-31 13:34] LABS: Basophils Percent Auto 0.4 % (0-2); Eosinophils Absolute Auto 0.1 X10*3/uL (0.0-0.4); Eosinophils Percent Auto 1.3 % (0-4); Hematocrit 42.9 % (37.0-47.0); Hemoglobin 11.9 g/dl (12.0-16.0); Imm Gran Abs Auto 0.04 X10*3/uL (0.00-0.03); Imm Gran Pct Auto 0.5 % (0.0-0.4); Lymphocytes Absolute Auto 1.2 X10*3/uL (1.2-4.9); Lymphocytes Percent Auto 15.5 % (20-40); Mean Corpuscular HGB Conc 27.7 g/dl (31.0-35.0); Mean Corpuscular Hemoglobin 28.1 pg (27.0-33.0); Mean Corpuscular Volume 101.4 fL (80.0-98.0); Mean Platelet Volume 10.7 fL (9.4-12.3); Monocytes Absolute Auto 0.6 X10*3/uL (0.1-1.2); Monocytes Percent Auto 7.2 % (2-11); NRBC Pct Auto 0.7 /100WBC (0.0-0.2); Neutrophils Absolute Auto 5.7 x10*3/uL (2.0-8.3); Neutrophils Percent Auto 75.1 % (45-73); Platelet Count 202 X10*3/uL (160-400); Red Blood Count 4.23 X10*6/uL (4.20-5.50); Red Cell Distribution Width 15.3 % (11.0-16.0); White Blood Count 7.6 X10*3/uL (4.8-10.8)
[2023-05-31 13:52] LABS: VBG Base Excess 9.9 mmol/L; VBG HCO3 34 mmol/L (22-26); VBG pCO2 44 mmHg; VBG pH 7.49 (7.32-7.43); VBG pO2 133 mmHg
[2023-05-31 13:58] LABS: Alanine Aminotransferase 8 U/L (0-31); Albumin Level 3.1 g/dL (3.5-5.0); Alkaline Phosphatase 53 U/L (39-117); Anion Gap 14 (12-20); Aspartate Amino Transferase 15 U/L (5-31); Bilirubin Total 0.2 mg/dL (0.0-1.0); Blood Urea Nitrogen 24 mg/dL (9-16); Calcium 7.8 mg/dL (8.4-10.2); Carbon Dioxide 26 mmol/L (22-29); Chloride 109 mmol/L (96-108); Creatinine Clr Calc Pharmacy 133.5; Estimated Glomerular Filt Rate > 60; Glucose Random 87 mg/dL (60-115); Potassium 4.6 mmol/L (3.3-5.1); Sodium 144 mmol/L (135-145); Total Protein 6.3 g/dL (6.5-8.0)
[2023-05-31 14:03] LABS: Troponin-I High Sensitivity 10.9 ng/L (<3.5-17.0)
[2023-05-31 14:04] LABS: B Type Natriuretic Peptide 46 pg/mL (<100)
[2023-05-31 15:18] LABS: COVID-19 Test Negative (Negative); IDNOW Serial# 55D5AD1C
[2023-05-31 15:20] LABS: IDNOW Serial# 9DB6401D; Influenza A Negative (Negative)
[2023-05-31 15:21] LABS: Influenza B2 Negative (Negative)
[2023-05-31 16:55] LABS: VBG Base Excess 7.9 mmol/L; VBG HCO3 38 mmol/L (22-26); VBG pCO2 86 mmHg; VBG pH 7.25 (7.32-7.43); VBG pO2 48 mmHg
[2023-05-31 16:57] LABS: Venous Blood Gas Refer to POC result
--- NOTE | 2023-05-31 18:06 | MHC.EDTECH ---
Called [facility] for transfer spoke to Ange, requested by Dr. Rodriguez
[2023-05-31] MEDS: LORazepam 2 MG/ML VIAL 0.5 MG IVPUSH (18:35)
--- NOTE | 2023-05-31 18:37 | PC.NURSE ---
pt restless, continues to pull of biPap mask - confused. request for meds to dr jean who ordered 0.5 ativan IV. administered and will monitor results
[2023-05-31 20:14] LABS: Venous Blood Gas Refer to POC result
[2023-05-31 20:21] LABS: VBG Base Excess 12.1 mmol/L; VBG HCO3 37 mmol/L (22-26); VBG pCO2 49 mmHg; VBG pH 7.48 (7.32-7.43); VBG pO2 53 mmHg
--- NOTE | 2023-05-31 20:41 | MHC.EDTECH ---
call out to [facility] for transport back to [facility] @2038, eta of within the hour was given by dispatch
--- NOTE | 2023-05-31 21:49 | PC.NURSE ---
Pt aox4 requesting to leave AMA. AMA form signed by pt, provider, and two nurses. Pt aware of risk of leaving AMA.
--- NOTE | 2023-05-31 22:43 | PC.NURSE ---
Pt is agreeing to spend the night and not leave AMA. Provider aware. Transport cancelled. Pt placed on bipap.
[2023-06-01] VITALS (13 sets, daily range): BP systolic 131–165; BP diastolic 51–92; PULSE 80–101; RESP 14–31; TEMP 36.4–37.3; O2SAT 86–97; BMI 46.8
--- NOTE | 2023-06-01 00:20 | P.HPHOSP_ITS ---
History of Present Illness Date of Service: 06/01/23 Chief Complaint: low oxygen This is a 62-year-old female with pertinent history of chronic hypoxemic hypercarbic respiratory failure due to COPD and OHS on 2-3 L supplemental oxygen at baseline and home BiPAP, congestive heart failure with preserved ejection fraction, mood disorder, mixed hyperlipidemia, insulin-dependent diabetes mellitus, essential hypertension who was sent to the emergency department for evaluation of hypoxemia. Patient does admit dyspnea and wheezing. She states she does not like to use her mask at home for breathing. Noted previous compliance issues and recurrent admissions for acute on chronic hypoxemic hypercarbic respiratory failure. Patient was brought in from [facility] where staff found him to be hypoxemic on his baseline supplemental oxygen. In the emergency department, patient initially with respiratory acidosis which improved on BiPAP. Patient denies fever, chills, chest discomfort, abdominal pain, changes in urinary or bowel habits. Review of Systems 2 Constitutional: Constitutional: Reports fatigue and Reports lethargy Cardiovascular: Cardiovascular: Reports dyspnea on exertion Respiratory: Respiratory: Reports dyspnea on exertion and Reports wheezing Genitourinary: Genitourinary: Reports no additional female genitourinary complaints Musculoskeletal: Musculoskeletal: Reports no additional musculoskeletal complaints Endocrine: Endocrine: Reports fatigue Allergic/Immunologic: Allergic/Immunologic: Reports wheezing [facility] Medical History Hypoventilation associated with obesity COPD (chronic obstructive pulmonary disease) Morbid obesity with BMI of 50.0-59.9, adult Acute and chronic respiratory failure Pressure injury of deep tissue of buttock Pressure ulcer, stage II, skin breakdown Hypertrophic nonobstructive cardiomyopathy Presence of permanent cardiac pacemaker Acute on chronic respiratory failure with hypoxia and hypercapnia Acute and chronic respiratory failure with hypercapnia Metabolic encephalopathy Morbid obesity Acute and chronic respiratory failure with hypercapnia Urinary tract infection due to ESBL Klebsiella Respiratory failure Presence of permanent cardiac pacemaker Sick sinus syndrome Obesity hypoventilation syndrome Morbid obesity Heart block AV third degree PAD (peripheral artery disease) Diabetic ulcer of foot associated with diabetes mellitus due to underlying condition, with fat layer exposed Atelectasis of both lungs Respiratory failure with hypoxia and hypercapnia Hypoventilation associated with obesity syndrome SMILEY (obstructive sleep apnea) Morbid obesity Pulmonary embolism CHF (congestive heart failure) Clostridium difficile infection Hypertension Diabetes mellitus, type 2 Depression Arthritis Anemia Surgical History History of total knee replacement Social History Household Members: Unknown / Unable to assess Housing: Alf Housing Other:: SNF Are you a primary nurse behavioral health care to a significant other at home: No Do you presently have visiting nurse or other home services: No Unable to assess alcohol history related to: Unable to respond Alcohol intake: never Patient Tobacco Use Status: Former Tobacco user Quit Date: 30years ago Tobacco use type: Cigarette Cigarette Packs Per Day: 20 Cigarettes Per Day: 400.0 Years Smoked: 20 Smoked in Last 30 Days: No e-Cigarette/Vaping Use: Never Used Second Hand Smoke Exposure: No Use of substances other than those prescribed or required for medical reasons: No Substance Use Type: Unknown Advance Directives: Yes Advance Directives on File: Yes Advance Directives Date on File: 01/07/23 Patient : No service: No Current occupational status: disabled Meds Allergies Allergy/AdvReac Type Severity Reaction Status Date / Time latex Allergy Unknown Unknown Verified 04/21/23 13:40 adhesive tape AdvReac Unknown Unknown Verified 04/21/23 13:40 bupropion [From Wellbutrin] AdvReac Unknown Unknown Verified 04/21/23 13:40 ibuprofen AdvReac Unknown Unknown Verified 04/21/23 13:40 Active Medications: Current Medications Acetaminophen (Acetaminophen 325 Mg Tablet) 650 mg PO Q6H PRN PRN Reason: Pain, Mild (Pain Scale 1-3) Enoxaparin Sodium (Enoxaparin Sodium 40 Mg/0.4 Ml Syringe) 40 mg SUBCUT Q24H [facility] Melatonin (Melatonin 3 Mg Tablet) 6 mg PO BEDTIME PRN PRN Reason: Insomnia Ondansetron HCl (Ondansetron Hcl 4 Mg/2 Ml Vial) 4 mg IVPUSH Q8H PRN PRN Reason: Nausea and Vomiting Sodium Chloride (0.9 % Sodium Chloride Flush 3 Ml Syringe) 3 ml IVFLUSH QSHIFT [facility] Home Medications Medication Instructions Recorded Confirmed Last Taken Type acetaminophen 325 mg tablet 650 mg PO Q4H PRN Fever Or Pain 11/18/21 04/21/23 Unknown History atorvastatin 80 mg tablet 80 mg PO BEDTIME 11/18/21 04/21/23 Unknown History ferrous sulfate 325 mg (65 mg 325 mg PO DAILY 11/18/21 04/21/23 Unknown History iron) tablet insulin lispro 100 unit/mL See Protocol subcut QIDACHS 11/18/21 04/21/23 Unknown History subcutaneous pen melatonin 3 mg tablet 3 mg PO BEDTIME 11/18/21 04/21/23 Unknown History polyethylene glycol 3350 17 gram 17 g PO DAILY PRN Constipation 11/18/21 04/21/23 Unknown History oral powder packet (Miralax) sennosides 8.6 mg tablet (senna) 17.2 mg PO BEDTIME 11/18/21 04/21/23 Unknown History sertraline 100 mg tablet 200 mg PO DAILY 11/18/21 04/21/23 Unknown History tizanidine 4 mg tablet 4 mg PO BEDTIME PRN Muscle Spasm 11/18/21 04/21/23 Unknown History aspirin 81 mg chewable tablet 81 mg PO DAILY 01/05/22 04/21/23 Unknown History bupropion HCl 300 mg 24 hr tablet, 300 mg PO DAILY 04/09/22 04/21/23 Unknown History extended release Lactobacillus rhamnosus GG 10 1 cap PO BID 10/09/22 04/21/23 Unknown History billion cell capsule (Culturelle) bupropion HCl 150 mg 24 hr tablet, 1 tab PO DAILY 10/09/22 04/21/23 Unknown History extended release ipratropium 0.5 mg-albuterol 3 mg 3 ml inhalation TID PRN Wheezing 10/09/22 04/21/23 Unknown History (2.5 mg base)/3 mL nebulization soln potassium chloride 10 mEq 10 meq PO DAILY 10/09/22 04/21/23 Unknown History tablet,extended release bisacodyl 10 mg rectal suppository 10 mg WA DAILY PRN Constipation 10/21/22 04/21/23 Unknown History magnesium citrate (Citrate of 150 ml PO DAILY PRN Constipation 10/21/22 04/21/23 Unknown History Magnesia oral) fluticasone 113 mcg-salmeterol 14 1 inh inhalation BID 11/09/22 04/21/23 Unknown History mcg/actuation breath activated powdr (AirDuo RespiClick) magnesium hydroxide 400 mg/5 mL 30 ml PO DAILY PRN Constipation 11/09/22 04/21/23 Unknown History oral suspension (Milk of Magnesia) sodium phosphates 19 gram-7 118 ml WA DAILY PRN Constipation 11/09/22 04/21/23 Unknown History gram/118 mL enema (Fleet Enema) metformin 500 mg tablet 500 mg PO BID 12/27/22 04/21/23 Unknown History semaglutide 0.25 mg or 0.5 mg (2 0.5 mg subcut WE 12/27/22 04/21/23 Unknown History mg/3 mL) subcutaneous pen injector (Ozempic) aripiprazole 2 mg tablet 2 mg PO DAILY 01/12/23 04/21/23 Unknown History cholecalciferol (vitamin D3) 25 25 mcg PO DAILY 04/04/23 04/21/23 Unknown History mcg (1,000 unit) tablet ergocalciferol (vitamin D2) 1,250 1,250 mcg PO SA 04/04/23 04/21/23 Unknown History mcg (50,000 unit) capsule insulin glargine 100 unit/mL 40 unit subcut DAILY 04/04/23 04/21/23 Unknown History subcutaneous solution (Lantus U-100 Insulin) losartan 25 mg tablet 25 mg PO DAILY 04/04/23 04/21/23 Unknown History megestrol 400 mg/10 mL (40 mg/mL) 400 mg PO TID 04/04/23 04/21/23 Unknown History oral suspension olopatadine 0.2 % eye drops 1 drp ophthalmic (eye) BEDTIME 04/04/23 04/21/23 Unknown History cyanocobalamin (vitamin B-12) 1,000 mcg PO DAILY 04/21/23 04/21/23 Unknown History 1,000 mcg capsule Physical Exam 2 Vital Signs and Narrative: Vital Signs: Last Vital Signs Temp 98.4 F 05/31/23 21:57 Pulse 92 06/01/23 00:07 Resp 25 H 06/01/23 00:07 BP 152/51 H 06/01/23 00:07 Pulse Ox 91 L 06/01/23 00:07 O2 Del Method Oxymask 06/01/23 00:07 O2 Flow Rate 4 06/01/23 00:07 Oxygen Flow Rate 30 05/31/23 13:25 BMI result Body Mass Index 47.5 Middle-aged female lying in bed in mild distress on supplemental oxygen Neck supple, no JVD Regular rate and rhythm, distant heart sounds Bilateral wheezing Abdomen soft nontender, no guarding, no rigidity Patient is lethargic and awakens to verbal stimulus, oriented to place and time ; no focal motor deficit Psych: Drowsy Bilateral nonpitting edema Results Labs 05/31/23 13:23 05/31/23 13:28 Labs: Laboratory Results - last 24 hr 05/31/23 05/31/23 05/31/23 13:23 13:28 14:59 MCV 101.4 H MCH 28.1 MCHC 27.7 L RDW 15.3 Plt Count 202 MPV 10.7 Immature Gran % (Auto) 0.5 H Neut % (Auto) 75.1 H Lymph % (Auto) 15.5 L [place] % (Auto) 7.2 Eos % (Auto) 1.3 Baso % (Auto) 0.4 Lymph # (Auto) 1.2 [place] # (Auto) 0.6 Eos # (Auto) 0.1 Baso # (Auto) 0.0 Abs Immat Gran (auto) 0.04 H Absolute Neuts (auto) 5.7 Absolute Nucleated RBC 0.050 H Nucleated RBC % (auto) 0.7 H PT INR VBG pH 7.49 H VBG pCO2 44 VBG pO2 133 VBG HCO3 34 H VBG O2 Saturation 99.0 VBG Base Excess 9.9 Anion Gap 14 Estim Creat Clear Calc 133.5 Estimated GFR > 60 Random Glucose 87 Calcium 7.8 L D Total Bilirubin 0.2 AST 15 ALT 8 Alkaline Phosphatase 53 B-Natriuretic Peptide 46 Total Protein 6.3 L Albumin 3.1 L COVID-19 (LIS) Negative COVID-19 Clin Com See Note Influenza Type A (CHUNG) Negative Influenza Type B (CHUNG) Negative Influenza A & B Note See Note 05/31/23 05/31/23 05/31/23 15:12 15:47 20:01 MCV MCH MCHC RDW Plt Count MPV Immature Gran % (Auto) Neut % (Auto) Lymph % (Auto) [place] % (Auto) Eos % (Auto) Baso % (Auto) Lymph # (Auto) [place] # (Auto) Eos # (Auto) Baso # (Auto) Abs Immat Gran (auto) Absolute Neuts (auto) Absolute Nucleated RBC Nucleated RBC % (auto) PT 12.0 INR 1.0 VBG pH 7.25 L 7.48 H VBG pCO2 86 49 VBG pO2 48 53 VBG HCO3 38 H 37 H VBG O2 Saturation 74.0 91.0 VBG Base Excess 7.9 12.1 Anion Gap Estim Creat Clear Calc Estimated GFR Random Glucose Calcium Total Bilirubin AST ALT Alkaline Phosphatase B-Natriuretic Peptide Total Protein Albumin COVID-19 (LIS) COVID-19 Clin Com Influenza Type A (CHUNG) Influenza Type B (CHUNG) Influenza A & B Note Assessment and Plan (1) Acute respiratory failure with hypoxia: Status: Acute Plan This is a 62-year-old female with pertinent history of chronic hypoxemic hypercarbic respiratory failure due to COPD and OHS on 2-3 L supplemental oxygen at baseline and home BiPAP, congestive heart failure with preserved ejection fraction, mood disorder, mixed hyperlipidemia, insulin-dependent diabetes mellitus, essential hypertension who was sent to the emergency department for evaluation of hypoxemia. #. Acute on chronic hypoxemic hypercarbic respiratory failure due to acute exacerbation of COPD. Will admit patient and initiate systemic steroids. Scheduled and p.r.n. Jaquelin. Counseled extensively regarding use of BiPAP at bedtime. Continue home inhalers #. Insulin-dependent diabetes mellitus. Initiating Accu-Cheks with sliding scale insulin. Reduce home basal regimen #. Morbid obesity. Weight loss encouraged. Counseled regarding diet #. Chronic decubitus ulcer. Wound care #. Congestive heart failure with preserved ejection fraction. Continue Lasix #. Essential hypertension. Continue home antihypertensives #. Mood disorder. Continue home mood stabilizers Med rec pending DVT prophylaxis: Lovenox Code status: DNI. Attempt resuscitation as per [facility] Admit as inpatient and will require two night minimum hospital stay for supplemental oxygen and IV steroids Time Spent With Patient Time: Total time managing care of this patient today ____ minutes. Quality Stroke Does the patient have a stroke diagnosis?: No VTE Prior VTE?: No VTE Risk Level:: Medical - moderate - high VTE Device Contraindication: Treatment Not Indicated VTE Drug Contraindication: N/A - Med Ordered
[2023-06-01] MEDS: methylPREDNISolone Sod Succ 40 MG/ML VIAL IVPUSH ×2 (00:56→12:52)
[2023-06-01] MEDS: Enoxaparin Sodium 40 MG/0.4 ML SYRINGE SUBCUT (00:56)
[2023-06-01 01:18] LABS: Venous Blood Gas Refer to POC result
--- NOTE | 2023-06-01 02:05 | PC.NURSE ---
Nursing report given to NILDA Boyer. Pt being transferred to room 450 and aware of plan of care.
--- NOTE | 2023-06-01 06:18 | PC.NURSE ---
Patient arrived to [facility] at ~03:00 06/01 via stretcher from ED[facility] visit for hypoxemia. Pt has hx of chronic hypoxemic hypercarbic respiratory failure 2/2 copd with documented hx of non-compliance with bipap per chart review, and is on 4L baseline nc per handoff report. Pt arrived on 4L nc with spo2 low 90's per sat goal. Pt drowsy, appropriately arousable though confused. Respiratory to bedside immediately after pt was settled and pt placed on bipap which she has tolerated and been compliant with since placement. NPO while on bipap. Breathing is even and unlabored without distress. Pt reports she does not get out of bed at baseline and is noted to have pressure vs moisture wound to her buttocks and fungal rash to perez-area on admission assessment. Dr. Butler aware. Moisture barrier cream applied and pt offloaded. Meticulous perez-care provided and purewick placed for urinary incontinence. Bed alarm on and safety measures in place.
[2023-06-01 06:39] LABS: Alanine Aminotransferase 10 U/L (0-31); Albumin Level 3.6 g/dL (3.5-5.0); Alkaline Phosphatase 61 U/L (39-117); Anion Gap 15 (12-20); Aspartate Amino Transferase 19 U/L (5-31); Bilirubin Total 0.3 mg/dL (0.0-1.0); Blood Urea Nitrogen 25 mg/dL (9-16); Calcium 9.1 mg/dL (8.4-10.2); Carbon Dioxide 31 mmol/L (22-29); Chloride 102 mmol/L (96-108); Creatinine Clr Calc Pharmacy 120.4; Estimated Glomerular Filt Rate > 60; Glucose Random 94 mg/dL (60-115); Potassium 4.8 mmol/L (3.3-5.1); Sodium 143 mmol/L (135-145)
[2023-06-01] MEDS: Albuterol/Iprat 2.5/0.5MG 3 ML AMPUL.NEB INHALE ×4 (07:26→19:46)
[2023-06-01] MEDS: Acetaminophen 325 MG TABLET 650 MG PO (09:17)
--- NOTE | 2023-06-01 10:24 | PM.EVENT ---
Event Note Date of Service: 06/01/23 Event Note: Seen and evaluated Feels better BiPaP with naps and bedtime Continue Nebs Steroids IV for today wean down O2 to baseline Time Spent With Patient Time: Total time managing care of this patient today ____ minutes.
--- NOTE | 2023-06-01 10:43 | PHA.MEDREC ---
Pharmacy Consult ? Medication Reconciliation Pharmacy has completed the medication reconciliation. Used list from [facility]
[2023-06-01] MEDS: Insulin Glargine,Hum.rec.anlog 100 UNIT/ML 10 ML VIAL 14 UNIT SUBCUT (12:05)
[2023-06-01] MEDS: acetaZOLAMIDE 250 MG TABLET 500 MG PO ×2 (12:06→22:35)
[2023-06-01] MEDS: buPROPion HCl XL 150 MG TAB.ER.24H PO (12:07)
[2023-06-01] MEDS: metFORMIN HCl 500 MG TABLET PO ×2 (12:10→22:35)
[2023-06-01] MEDS: Sertraline HCL 100 MG TABLET 200 MG PO (12:11)
[2023-06-01] MEDS: amLODIPine Besylate 5 MG TABLET PO (12:11)
[2023-06-01] MEDS: ARIPiprazole 2 MG TABLET PO (12:11)
[2023-06-01] MEDS: Aspirin 81 MG TAB.CHEW PO (12:11)
[2023-06-01] MEDS: Empagliflozin 10 MG TABLET PO (12:12)
[2023-06-01] MEDS: buPROPion HCl XL 300 MG TAB.ER.24H PO (12:12)
[2023-06-01] MEDS: Furosemide 40 MG TABLET PO (12:15)
[2023-06-01] MEDS: 0.9 % Sodium Chloride Flush 3 ML SYRINGE IVFLUSH ×2 (12:15→18:01)
[2023-06-01] MEDS: Insulin Lispro 100 UNIT/ML 3 ML VIAL SUBCUT ×3 (12:35→22:35)
[2023-06-01] MEDS: Megestrol Acetate 400 MG/10 ML ORAL.SUSP PO ×2 (14:59→22:34)
[2023-06-01] MEDS: Atorvastatin Calcium 80 MG TABLET PO (22:35)
[2023-06-01] MEDS: Sennosides 8.6 MG TABLET 17.2 MG PO (22:37)
[2023-06-01] MEDS: Melatonin 3 MG TABLET PO (22:41)
[2023-06-02] VITALS (13 sets, daily range): BP systolic 139–171; BP diastolic 65–85; PULSE 69–147; RESP 17–20; TEMP 36.6–37.1; O2SAT 90–97; BMI 46.8
[2023-06-02] MEDS: Enoxaparin Sodium 40 MG/0.4 ML SYRINGE SUBCUT (00:39)
[2023-06-02] MEDS: methylPREDNISolone Sod Succ 40 MG/ML VIAL IVPUSH ×2 (00:39→13:47)
[2023-06-02] MEDS: 0.9 % Sodium Chloride Flush 3 ML SYRINGE IVFLUSH ×4 (00:40→19:58)
--- NOTE | 2023-06-02 02:01 | PC.NURSE ---
Assumed care at 07:00. patient only oriented to self, frequent delusional ideation, redirectable. OOB to chair via wilder today. Slept in naps, used Bipap three times today. Patient O2 titrated to O2 goal of 88-92. Patient has discolored blanchable skin to coccyx, looks like healed skin injury, also with small scab to left lateral foot, wound consulted. Coccyx with triad and foam.
[2023-06-02 07:07] LABS: Hematocrit 39.7 % (37.0-47.0); Hemoglobin 11.5 g/dl (12.0-16.0); Mean Corpuscular Hemoglobin 28.2 pg (27.0-33.0); Mean Corpuscular Volume 97.3 fL (80.0-98.0); Mean Platelet Volume 10.8 fL (9.4-12.3); Platelet Count 234 X10*3/uL (160-400); Red Blood Count 4.08 X10*6/uL (4.20-5.50); Red Cell Distribution Width 15.7 % (11.0-16.0); White Blood Count 6.3 X10*3/uL (4.8-10.8)
[2023-06-02 07:14] LABS: Anion Gap 11 (12-20); Blood Urea Nitrogen 28 mg/dL (9-16); Calcium 9.1 mg/dL (8.4-10.2); Carbon Dioxide 35 mmol/L (22-29); Chloride 101 mmol/L (96-108); Creatinine Clr Calc Pharmacy 105.5; Estimated Glomerular Filt Rate > 60; Glucose Random 157 mg/dL (60-115); Potassium 3.9 mmol/L (3.3-5.1); Sodium 143 mmol/L (135-145)
[2023-06-02] MEDS: Albuterol/Iprat 2.5/0.5MG 3 ML AMPUL.NEB INHALE ×4 (07:56→20:07)
--- NOTE | 2023-06-02 08:42 | HO.PM.IMPN ---
Subjective Subjective Date of Service: 06/02/23 Interval History: sob Physical Exam Vital Signs: Vital Signs: Last Vital Signs Temp 98.5 F 06/02/23 07:45 Pulse 78 06/02/23 07:58 Resp 18 06/02/23 07:58 BP 171/80 H 06/02/23 07:45 Pulse Ox 93 06/02/23 07:45 O2 Del Method Nasal Cannula 06/02/23 07:45 O2 Flow Rate 5 06/02/23 07:45 FiO2 28 06/01/23 07:15 Oxygen Flow Rate 30 05/31/23 13:25 BMI result Body Mass Index 46.8 General: AO X 3, no acute distress Resp: diminished bilateral, no accessory muscles used CVS: S1,S2,RRR GI: soft, non tender, non distended Neuro: motor grossly intact, alert Psych: appropriate affect, appropriate insight Objective Data Active Medications Acetaminophen (Acetaminophen 325 Mg Tablet) 650 mg PO Q6H PRN PRN Reason: Pain, Mild (Pain Scale 1-3) Last Admin: 06/01/23 09:17 Dose: 650 mg Documented By: INEZ Acetazolamide (Acetazolamide 250 Mg Tablet) 500 mg PO BID [facility] Last Admin: 06/01/23 22:35 Dose: 500 mg Documented By: INEZ Albuterol/Ipratropium (Albuterol/Iprat 2.5/0.5mg 3 Ml Ampul.Neb) 3 ml INHALE RQ4H WHILE AWAKE [facility] Last Admin: 06/02/23 07:56 Dose: 3 ml Documented By: DESHAWN Albuterol/Ipratropium (Albuterol/Iprat 2.5/0.5mg 3 Ml Ampul.Neb) 3 ml INHALE Q4H PRN PRN Reason: Wheezing Amlodipine Besylate (Amlodipine Besylate 5 Mg Tablet) 5 mg PO DAILY [facility]; Protocol Last Admin: 06/01/23 12:11 Dose: 5 mg Documented By: INEZ Comments: was asleep Aripiprazole (Aripiprazole 2 Mg Tablet) 2 mg PO DAILY [facility] Last Admin: 06/01/23 12:11 Dose: 2 mg Documented By: INEZ Aspirin (Aspirin 81 Mg Tab.Chew) 81 mg PO DAILY [facility] Last Admin: 06/01/23 12:11 Dose: 81 mg Documented By: INEZ Comments: was asleep Atorvastatin Calcium (Atorvastatin Calcium 80 Mg Tablet) 80 mg PO BEDTIME [facility] Last Admin: 06/01/23 22:35 Dose: 80 mg Documented By: INEZ Bisacodyl (Bisacodyl 10 Mg Supp.Rect) 10 mg [place] DAILY PRN PRN Reason: Constipation Bupropion HCl (Bupropion Hcl Xl 150 Mg Tab.Er.24h) 150 mg PO DAILY [facility] Last Admin: 06/01/23 12:07 Dose: 150 mg Documented By: INEZ Bupropion HCl (Bupropion Hcl Xl 300 Mg Tab.Er.24h) 300 mg PO DAILY [facility] Last Admin: 06/01/23 12:12 Dose: 300 mg Documented By: INEZ Dextrose (Dextrose 50 % 25 Gm/50 Ml Syringe) 25 gm IVPUSH Q15M PRN; Protocol PRN Reason: per Hypoglycemia Standing Ord. Empagliflozin (Empagliflozin 10 Mg Tablet) 10 mg PO DAILY [facility] Last Admin: 06/01/23 12:12 Dose: 10 mg Documented By: INEZ Enoxaparin Sodium (Enoxaparin Sodium 40 Mg/0.4 Ml Syringe) 40 mg SUBCUT Q24H [facility] Last Admin: 06/02/23 00:39 Dose: 40 mg Documented By: SHAN Ergocalciferol (Ergocalciferol (Vitamin D2) 1,250 Mcg Capsule) 1,250 mcg PO Sa@0900 [facility] Ferrous Sulfate (Ferrous Sulfate 324 Mg Tablet.Dr) 324 mg PO DAILY [facility] Furosemide (Furosemide 40 Mg Tablet) 40 mg PO DAILY [facility]; Protocol Last Admin: 06/01/23 12:15 Dose: 40 mg Documented By: INEZ Glucose (Glucose Gel 15 Gm Gel..Gram.) 15 gm PO Q15M PRN; Protocol PRN Reason: per Hypoglycemia Standing Ord. Insulin Glargine (Insulin Glargine,Hum.Rec.Anlog 100 Unit/Ml 10 Ml Vial) 14 unit SUBCUT DAILY [facility] Last Admin: 06/01/23 12:05 Dose: 14 unit Documented By: INEZ Comments: was asleep Insulin Human Lispro (Insulin Lispro 100 Unit/Ml 3 Ml Vial) 0 unit SUBCUT QIDACHS [facility]; Protocol Last Admin: 06/01/23 22:35 Dose: 2 unit Documented By: INEZ Losartan Potassium (Losartan Potassium 25 Mg Tablet) 25 mg PO DAILY [facility]; Protocol Megestrol Acetate (Megestrol Acetate 400 Mg/10 Ml Oral.Susp) 400 mg PO TID [facility] Last Admin: 06/01/23 22:34 Dose: 400 mg Documented By: INEZ Melatonin (Melatonin 3 Mg Tablet) 6 mg PO BEDTIME PRN PRN Reason: Insomnia Melatonin (Melatonin 3 Mg Tablet) 3 mg PO BEDTIME [facility] Last Admin: 06/01/23 22:41 Dose: 3 mg Documented By: INEZ Metformin HCl (Metformin Hcl 500 Mg Tablet) 500 mg PO BID [facility] Last Admin: 06/01/23 22:35 Dose: 500 mg Documented By: INEZ Methylprednisolone Sodium Succinate (Methylprednisolone Sod Succ 40 Mg/Ml Vial) 40 mg IVPUSH Q12H [facility] Last Admin: 06/02/23 00:39 Dose: 40 mg Documented By: SHAN Non-Formulary Medication (Olopatadine) 1 drop EYE-BOTH BEDTIME [facility] Non-Formulary Medication (Semaglutide [Ozempic]) 0.5 mg SUBCUT WE [facility] Ondansetron HCl (Ondansetron Hcl 4 Mg/2 Ml Vial) 4 mg IVPUSH Q8H PRN PRN Reason: Nausea and Vomiting Polyethylene Glycol (Polyethylene Glycol 3350 17 Gm Powd.Pack) 17 gm PO DAILY PRN PRN Reason: Constipation Senna (Sennosides 8.6 Mg Tablet) 17.2 mg PO BEDTIME [facility] Last Admin: 06/01/23 22:37 Dose: 17.2 mg Documented By: INEZ Sertraline HCl (Sertraline Hcl 100 Mg Tablet) 200 mg PO DAILY [facility] Last Admin: 06/01/23 12:11 Dose: 200 mg Documented By: INEZ Comments: was asleep Sodium Chloride (0.9 % Sodium Chloride Flush 3 Ml Syringe) 3 ml IVFLUSH QSHIFT [facility] Last Admin: 06/02/23 00:40 Dose: 3 ml Documented By: SHAN Tizanidine HCl (Tizanidine Hcl 4 Mg Tablet) 4 mg PO BEDTIME PRN PRN Reason: Muscle Spasm Vitamin D (Cholecalciferol (Vitamin D3) 25 Mcg Tablet) 25 mcg PO DAILY [facility] Labs 06/02/23 06:46 06/02/23 06:46 Labs: Laboratory Results - last 24 hr 06/02/23 06:46 MCV 97.3 MCH 28.2 MCHC 29.0 L RDW 15.7 Plt Count 234 MPV 10.8 Absolute Nucleated RBC 0.000 Nucleated RBC % (auto) 0.0 Anion Gap 11 L Estim Creat Clear Calc 105.5 Estimated GFR > 60 Random Glucose 157 H Calcium 9.1 Assessment and Plan (1) Acute respiratory failure with hypoxia: Status: Acute Plan 62F PMH chornic hypoxic and hypercapneic resp failure due to copd and ohs on 2-3L home o2 and home bipap. chronic diastolic chf, mood disorder, morbid obesity, hld, dm, htn, presented with sob Acute on chronic hypoxic and hypercapnic respiratory failure due to COPD/ohs with acute decompensation Continue steroids and bronchodilators Diabetes Basal bolus insulin Morbid obesity Weight loss Chronic decubitus ulcer Local wound care Chronic diastolic CHF Lasix maintenance Hypertension Losartan DVT prophylaxis with Lovenox Do not intubate reason for continued hospitalization:sob, not at baseline o2 Time Spent With Patient Time: Total time managing care of this patient today ____ minutes. Quality Stroke Does the patient have a stroke diagnosis?: No VTE Prior VTE?: No VTE Risk Level:: Medical - moderate - high VTE Device Contraindication: Treatment Not Indicated VTE Drug Contraindication: N/A - Med Ordered
[2023-06-02] MEDS: Insulin Lispro 100 UNIT/ML 3 ML VIAL SUBCUT ×4 (08:43→21:54)
[2023-06-02] MEDS: acetaZOLAMIDE 250 MG TABLET 500 MG PO ×2 (08:44→19:49)
[2023-06-02] MEDS: Megestrol Acetate 400 MG/10 ML ORAL.SUSP PO ×3 (08:44→19:49)
[2023-06-02] MEDS: Insulin Glargine,Hum.rec.anlog 100 UNIT/ML 10 ML VIAL 14 UNIT SUBCUT (08:44)
[2023-06-02] MEDS: amLODIPine Besylate 5 MG TABLET PO (08:44)
[2023-06-02] MEDS: Ferrous Sulfate 324 MG TABLET.DR PO (08:44)
[2023-06-02] MEDS: Empagliflozin 10 MG TABLET PO (08:44)
[2023-06-02] MEDS: ARIPiprazole 2 MG TABLET PO (08:44)
[2023-06-02] MEDS: Sertraline HCL 100 MG TABLET 200 MG PO (08:45)
[2023-06-02] MEDS: metFORMIN HCl 500 MG TABLET PO ×2 (08:45→19:49)
[2023-06-02] MEDS: buPROPion HCl XL 150 MG TAB.ER.24H PO (08:45)
[2023-06-02] MEDS: Cholecalciferol (Vitamin D3) 25 MCG TABLET PO (08:45)
[2023-06-02] MEDS: buPROPion HCl XL 300 MG TAB.ER.24H PO (08:45)
[2023-06-02] MEDS: Aspirin 81 MG TAB.CHEW PO (08:45)
[2023-06-02] MEDS: Losartan Potassium 25 MG TABLET PO (08:45)
[2023-06-02] MEDS: Furosemide 40 MG TABLET PO (08:45)
--- NOTE | 2023-06-02 09:33 | MHC.CM.PN ---
IMM 06/02. Pt admitted with dyspnea. Pt was at [facility] prior to admission. Pt uses a walker and wheelchair. D/C plan will be to return to [facility] when medically cleared. Transport via BLS/[facility]. +HCP & [facility]. PCP: Natalie Bal
[2023-06-02 11:28] LABS: VBG Base Excess 10.8 mmol/L; VBG HCO3 40 mmol/L (22-26); VBG pCO2 74 mmHg; VBG pH 7.33 (7.32-7.43); VBG pO2 61 mmHg
[2023-06-02 11:30] LABS: Glucose, Whole Blood 214 mg/dL (60-115)
[2023-06-02 11:33] LABS: Glucose, Whole Blood 157 mg/dL (60-115)
[2023-06-02 11:34] LABS: Glucose, Whole Blood 192 mg/dL (60-115)
[2023-06-02 11:36] LABS: Glucose, Whole Blood 162 mg/dL (60-115)
[2023-06-02 11:36] LABS: Glucose, Whole Blood 194 mg/dL (60-115)
[2023-06-02 11:37] LABS: Glucose, Whole Blood 193 mg/dL (60-115)
[2023-06-02 11:38] LABS: Glucose, Whole Blood 99 mg/dL (60-115)
--- NOTE | 2023-06-02 12:21 | HO.WOUNDCONS ---
History of Present Illness Data of Consult Service Date: 06/02/23 Requesting physician: Tom Batista Primary Care Provider: Unknown Physician HPI Reason for consult: blanchable coccyx, left lateral ankle wound [id number]: 62-year-old female brought in from a rehabilitation facility with hypoxia in the setting of oxygen dependent COPD. History of CHF. She has diabetes. She is on fluticasone. She states that her breathing is better today. She denies fever. She does have pain in the buttocks but cannot differentiate left from right, whole area is painful. She is incontinent of urine. She has urinary wick. Review of Systems Review of Systems: No fever or shortness of breath. She complains of diffuse pain across the sacrum and pelvis without radiation. Urinary incontinence. No continence of stool. Admits to difficulty with bed mobility. Yes all other systems are reviewed and are negative [facility] Medical History Hypoventilation associated with obesity COPD (chronic obstructive pulmonary disease) Morbid obesity with BMI of 50.0-59.9, adult Acute and chronic respiratory failure Pressure injury of deep tissue of buttock Pressure ulcer, stage II, skin breakdown Hypertrophic nonobstructive cardiomyopathy Presence of permanent cardiac pacemaker Acute on chronic respiratory failure with hypoxia and hypercapnia Acute and chronic respiratory failure with hypercapnia Metabolic encephalopathy Morbid obesity Acute and chronic respiratory failure with hypercapnia Urinary tract infection due to ESBL Klebsiella Respiratory failure Presence of permanent cardiac pacemaker Sick sinus syndrome Obesity hypoventilation syndrome Morbid obesity Heart block AV third degree PAD (peripheral artery disease) Diabetic ulcer of foot associated with diabetes mellitus due to underlying condition, with fat layer exposed Atelectasis of both lungs Respiratory failure with hypoxia and hypercapnia Hypoventilation associated with obesity syndrome SMILEY (obstructive sleep apnea) Morbid obesity Pulmonary embolism CHF (congestive heart failure) Clostridium difficile infection Hypertension Diabetes mellitus, type 2 Depression Arthritis Anemia Surgical History History of total knee replacement Social History Household Members: None [facility] Pt confused, unable to ascertain further Are you a primary coronary care unit nurse to a significant other at home: No Do you presently have visiting nurse or other home services: Yes Unable to assess alcohol history related to: Unable to respond and Unknown Alcohol intake: never Patient Tobacco Use Status: Former Tobacco user Quit Date: 30years ago Tobacco use type: Cigarette Cigarette Packs Per Day: 20 Cigarettes Per Day: 400.0 Years Smoked: 20 e-Cigarette/Vaping Use: Never Used Second Hand Smoke Exposure: No Substance Use Type: Unknown Advance Directives Date on File: 01/07/23 service: No Current occupational status: disabled Meds Allergies Allergy/AdvReac Type Severity Reaction Status Date / Time latex Allergy Unknown Unknown Verified 04/21/23 13:40 adhesive tape AdvReac Unknown Unknown Verified 04/21/23 13:40 bupropion [From Wellbutrin] AdvReac Unknown Unknown Verified 04/21/23 13:40 ibuprofen AdvReac Unknown Unknown Verified 04/21/23 13:40 Active Medications: Current Medications Acetaminophen (Acetaminophen 325 Mg Tablet) 650 mg PO Q6H PRN PRN Reason: Pain, Mild (Pain Scale 1-3) Last Admin: 06/01/23 09:17 Dose: 650 mg Acetazolamide (Acetazolamide 250 Mg Tablet) 500 mg PO BID [facility] Last Admin: 06/02/23 08:44 Dose: 500 mg Albuterol/Ipratropium (Albuterol/Iprat 2.5/0.5mg 3 Ml Ampul.Neb) 3 ml INHALE RQ4H WHILE AWAKE [facility] Last Admin: 06/02/23 11:27 Dose: 3 ml Albuterol/Ipratropium (Albuterol/Iprat 2.5/0.5mg 3 Ml Ampul.Neb) 3 ml INHALE Q4H PRN PRN Reason: Wheezing Amlodipine Besylate (Amlodipine Besylate 5 Mg Tablet) 5 mg PO DAILY [facility]; Protocol Last Admin: 06/02/23 08:44 Dose: 5 mg Aripiprazole (Aripiprazole 2 Mg Tablet) 2 mg PO DAILY [facility] Last Admin: 06/02/23 08:44 Dose: 2 mg Aspirin (Aspirin 81 Mg Tab.Chew) 81 mg PO DAILY [facility] Last Admin: 06/02/23 08:45 Dose: 81 mg Atorvastatin Calcium (Atorvastatin Calcium 80 Mg Tablet) 80 mg PO BEDTIME [facility] Last Admin: 06/01/23 22:35 Dose: 80 mg Bisacodyl (Bisacodyl 10 Mg Supp.Rect) 10 mg KS DAILY PRN PRN Reason: Constipation Bupropion HCl (Bupropion Hcl Xl 150 Mg Tab.Er.24h) 150 mg PO DAILY [facility] Last Admin: 06/02/23 08:45 Dose: 150 mg Bupropion HCl (Bupropion Hcl Xl 300 Mg Tab.Er.24h) 300 mg PO DAILY [facility] Last Admin: 06/02/23 08:45 Dose: 300 mg Dextrose (Dextrose 50 % 25 Gm/50 Ml Syringe) 25 gm IVPUSH Q15M PRN; Protocol PRN Reason: per Hypoglycemia Standing Ord. Empagliflozin (Empagliflozin 10 Mg Tablet) 10 mg PO DAILY [facility] Last Admin: 06/02/23 08:44 Dose: 10 mg Enoxaparin Sodium (Enoxaparin Sodium 40 Mg/0.4 Ml Syringe) 40 mg SUBCUT Q24H [facility] Last Admin: 06/02/23 00:39 Dose: 40 mg Ergocalciferol (Ergocalciferol (Vitamin D2) 1,250 Mcg Capsule) 1,250 mcg PO Sa@0900 [facility] Ferrous Sulfate (Ferrous Sulfate 324 Mg Tablet.Dr) 324 mg PO DAILY [facility] Last Admin: 06/02/23 08:44 Dose: 324 mg Furosemide (Furosemide 40 Mg Tablet) 40 mg PO DAILY [facility]; Protocol Last Admin: 06/02/23 08:45 Dose: 40 mg Glucose (Glucose Gel 15 Gm Gel..Gram.) 15 gm PO Q15M PRN; Protocol PRN Reason: per Hypoglycemia Standing Ord. Insulin Glargine (Insulin Glargine,Hum.Rec.Anlog 100 Unit/Ml 10 Ml Vial) 14 unit SUBCUT DAILY [facility] Last Admin: 06/02/23 08:44 Dose: 14 unit Insulin Human Lispro (Insulin Lispro 100 Unit/Ml 3 Ml Vial) 0 unit SUBCUT QIDACHS [facility]; Protocol Last Admin: 06/02/23 08:43 Dose: 2 unit Losartan Potassium (Losartan Potassium 25 Mg Tablet) 25 mg PO DAILY [facility]; Protocol Last Admin: 06/02/23 08:45 Dose: 25 mg Megestrol Acetate (Megestrol Acetate 400 Mg/10 Ml Oral.Susp) 400 mg PO TID [facility] Last Admin: 06/02/23 08:44 Dose: 400 mg Melatonin (Melatonin 3 Mg Tablet) 6 mg PO BEDTIME PRN PRN Reason: Insomnia Melatonin (Melatonin 3 Mg Tablet) 3 mg PO BEDTIME [facility] Last Admin: 06/01/23 22:41 Dose: 3 mg Metformin HCl (Metformin Hcl 500 Mg Tablet) 500 mg PO BID [facility] Last Admin: 06/02/23 08:45 Dose: 500 mg Methylprednisolone Sodium Succinate (Methylprednisolone Sod Succ 40 Mg/Ml Vial) 40 mg IVPUSH Q12H [facility] Last Admin: 06/02/23 00:39 Dose: 40 mg Non-Formulary Medication (Olopatadine) 1 drop EYE-BOTH BEDTIME [facility] Non-Formulary Medication (Semaglutide [Ozempic]) 0.5 mg SUBCUT [facility] Ondansetron HCl (Ondansetron Hcl 4 Mg/2 Ml Vial) 4 mg IVPUSH Q8H PRN PRN Reason: Nausea and Vomiting Polyethylene Glycol (Polyethylene Glycol 3350 17 Gm Powd.Pack) 17 gm PO DAILY PRN PRN Reason: Constipation Senna (Sennosides 8.6 Mg Tablet) 17.2 mg PO BEDTIME [facility] Last Admin: 06/01/23 22:37 Dose: 17.2 mg Sertraline HCl (Sertraline Hcl 100 Mg Tablet) 200 mg PO DAILY [facility] Last Admin: 06/02/23 08:45 Dose: 200 mg Sodium Chloride (0.9 % Sodium Chloride Flush 3 Ml Syringe) 3 ml IVFLUSH QSHIFT [facility] Last Admin: 06/02/23 08:45 Dose: 3 ml Tizanidine HCl (Tizanidine Hcl 4 Mg Tablet) 4 mg PO BEDTIME PRN PRN Reason: Muscle Spasm Vitamin D (Cholecalciferol (Vitamin D3) 25 Mcg Tablet) 25 mcg PO DAILY [facility] Last Admin: 06/02/23 08:45 Dose: 25 mcg Home Medications Medication Instructions Recorded Confirmed Last Taken Type acetaminophen 325 mg tablet 650 mg PO Q4H PRN Fever Or Pain 11/18/21 06/01/23 Unknown History atorvastatin 80 mg tablet 80 mg PO BEDTIME 11/18/21 06/01/23 Unknown History ferrous sulfate 325 mg (65 mg 325 mg PO DAILY 11/18/21 06/01/23 Unknown History iron) tablet insulin lispro 100 unit/mL See Protocol subcut QIDACHS 11/18/21 06/01/23 Unknown History subcutaneous pen melatonin 3 mg tablet 3 mg PO BEDTIME 11/18/21 06/01/23 Unknown History polyethylene glycol 3350 17 gram 17 g PO DAILY PRN Constipation 11/18/21 06/01/23 Unknown History oral powder packet (Miralax) sennosides 8.6 mg tablet (senna) 17.2 mg PO BEDTIME 11/18/21 06/01/23 Unknown History sertraline 100 mg tablet 200 mg PO DAILY 11/18/21 06/01/23 Unknown History tizanidine 4 mg tablet 4 mg PO BEDTIME PRN Muscle Spasm 11/18/21 06/01/23 Unknown History aspirin 81 mg chewable tablet 81 mg PO DAILY 01/05/22 06/01/23 Unknown History bupropion HCl 300 mg 24 hr tablet, 300 mg PO DAILY 04/09/22 06/01/23 Unknown History extended release Lactobacillus rhamnosus GG 10 1 cap PO BID 10/09/22 06/01/23 Unknown History billion cell capsule (Culturelle) bupropion HCl 150 mg 24 hr tablet, 1 tab PO DAILY 10/09/22 06/01/23 Unknown History extended release ipratropium 0.5 mg-albuterol 3 mg 3 ml inhalation TID PRN Wheezing 10/09/22 06/01/23 Unknown History (2.5 mg base)/3 mL nebulization soln potassium chloride 10 mEq 10 meq PO DAILY 10/09/22 06/01/23 Unknown History tablet,extended release bisacodyl 10 mg rectal suppository 10 mg KS DAILY PRN Constipation 10/21/22 06/01/23 Unknown History magnesium citrate (Citrate of 150 ml PO DAILY PRN Constipation 10/21/22 06/01/23 Unknown History Magnesia oral) fluticasone 113 mcg-salmeterol 14 1 inh inhalation BID 11/09/22 06/01/23 Unknown History mcg/actuation breath activated powdr (AirDuo RespiClick) magnesium hydroxide 400 mg/5 mL 30 ml PO DAILY PRN Constipation 11/09/22 06/01/23 Unknown History oral suspension (Milk of Magnesia) sodium phosphates 19 gram-7 118 ml KS DAILY PRN Constipation 11/09/22 06/01/23 Unknown History gram/118 mL enema (Fleet Enema) metformin 500 mg tablet 500 mg PO BID 12/27/22 06/01/23 Unknown History semaglutide 0.25 mg or 0.5 mg (2 0.5 mg subcut WE 12/27/22 06/01/23 Unknown History mg/3 mL) subcutaneous pen injector (Ozempic) aripiprazole 2 mg tablet 2 mg PO DAILY 01/12/23 06/01/23 Unknown History cholecalciferol (vitamin D3) 25 25 mcg PO DAILY 04/04/23 06/01/23 Unknown History mcg (1,000 unit) tablet ergocalciferol (vitamin D2) 1,250 1,250 mcg PO SA 04/04/23 06/01/23 Unknown History mcg (50,000 unit) capsule insulin glargine 100 unit/mL 18 unit subcut DAILY 04/04/23 06/01/23 Unknown History subcutaneous solution (Lantus U-100 Insulin) losartan 25 mg tablet 25 mg PO DAILY 04/04/23 06/01/23 Unknown History megestrol 400 mg/10 mL (40 mg/mL) 400 mg PO TID 04/04/23 06/01/23 Unknown History oral suspension olopatadine 0.2 % eye drops 1 drp ophthalmic (eye) BEDTIME 04/04/23 06/01/23 Unknown History cyanocobalamin (vitamin B-12) 1,000 mcg PO DAILY 04/21/23 06/01/23 Unknown History 1,000 mcg capsule Physical Exam Vital Signs and Narrative: Vital Signs: Last Vital Signs Temp 98.5 F 06/02/23 07:45 Pulse 87 06/02/23 11:29 Resp 18 06/02/23 11:29 BP 171/80 H 06/02/23 07:45 Pulse Ox 93 06/02/23 07:45 O2 Del Method Nasal Cannula 06/02/23 07:45 O2 Flow Rate 5 06/02/23 07:45 FiO2 28 06/01/23 07:15 Oxygen Flow Rate 30 05/31/23 13:25 BMI result Body Mass Index 46.8 There are no open wounds in the bilateral lower extremities. There is no skin breakdown or concern of the bilateral calcaneus. No open dorsal foot ulcers. With maximal assistance, she can not lie on her left side. I removed the leaving from the sacral area. The blanching is difficult to assess in the setting of copious zinc oxide application, which is advised. The purplish hue of this generalized area seems to be blanching so as to dissuade pressure is the primary source. Additionally in the right inferior buttock closer to the ischium, epithelial peeling is occurring from macerated epidermis. The source is likely urinary incontinence or sweating. Results Labs 06/02/23 06:46 06/02/23 06:46 Labs: Laboratory Results - last 24 hr 06/01/23 06/01/23 06/01/23 01:07 07:14 11:22 MCV MCH MCHC RDW Plt Count MPV Absolute Nucleated RBC Nucleated RBC % (auto) VBG pH 7.33 VBG pCO2 74 VBG pO2 61 VBG HCO3 40 H VBG O2 Saturation 90.0 VBG Base Excess 10.8 Anion Gap Estim Creat Clear Calc Estimated GFR POC Glucose 99 193 H Random Glucose Calcium 06/01/23 06/01/23 06/01/23 12:28 17:00 21:24 MCV MCH MCHC RDW Plt Count MPV Absolute Nucleated RBC Nucleated RBC % (auto) VBG pH VBG pCO2 VBG pO2 VBG HCO3 VBG O2 Saturation VBG Base Excess Anion Gap Estim Creat Clear Calc Estimated GFR POC Glucose 162 H 194 H 192 H Random Glucose Calcium 06/02/23 06/02/23 06/02/23 06:46 07:42 10:54 MCV 97.3 MCH 28.2 MCHC 29.0 L RDW 15.7 Plt Count 234 MPV 10.8 Absolute Nucleated RBC 0.000 Nucleated RBC % (auto) 0.0 VBG pH VBG pCO2 VBG pO2 VBG HCO3 VBG O2 Saturation VBG Base Excess Anion Gap 11 L Estim Creat Clear Calc 105.5 Estimated GFR > 60 POC Glucose 157 H 214 H Random Glucose 157 H Calcium 9.1 Assessment and Plan (1) Dermatitis, unspecified: Status: Acute Plan 62-year-old female who has morbid obesity and oxygen-dependent COPD, CHF. Her mobility is impaired due to her body habitus. She will benefit from physical therapy to progress bed mobility. Frequent positional changes to offload the buttocks would help prevent pressure injury. All we seen today is skin breakdown from moisture associated dermatitis without evidence of ml deep soft tissue injury. Agree with zinc oxide to these areas of skin discoloration and epithelial maceration. Allevyn might be appropriate in the setting of urinary incontinence for protection. Be aware of moisture harboring if sweat confounds skin integrity while using Allevyn. Time Spent With Patient Time: Total time managing care of this patient today ____ minutes.
[2023-06-02] MEDS: Acetaminophen 325 MG TABLET 650 MG PO (18:10)
[2023-06-02] MEDS: Atorvastatin Calcium 80 MG TABLET PO (19:49)
[2023-06-02] MEDS: Sennosides 8.6 MG TABLET 17.2 MG PO (19:49)
[2023-06-02] MEDS: Melatonin 3 MG TABLET PO (19:49)
--- NOTE | 2023-06-02 21:50 | PC.NURSE ---
POC at 21:27 is 345. Per protocol administer 8 units of lispro. POC not documenting
[2023-06-03] VITALS (12 sets, daily range): BP systolic 139–174; BP diastolic 69–88; PULSE 68–92; RESP 17–22; TEMP 36.1–37; O2SAT 91–97
[2023-06-03] MEDS: methylPREDNISolone Sod Succ 40 MG/ML VIAL IVPUSH ×2 (00:57→14:23)
[2023-06-03] MEDS: Enoxaparin Sodium 40 MG/0.4 ML SYRINGE SUBCUT (00:57)
[2023-06-03 07:12] LABS: Glucose, Whole Blood 345 mg/dL (60-115)
[2023-06-03 07:14] LABS: Glucose, Whole Blood 203 mg/dL (60-115)
[2023-06-03 07:15] LABS: Glucose, Whole Blood 276 mg/dL (60-115)
[2023-06-03 07:16] LABS: Glucose, Whole Blood 242 mg/dL (60-115)
[2023-06-03 07:17] LABS: Glucose, Whole Blood 204 mg/dL (60-115)
[2023-06-03] MEDS: Insulin Lispro 100 UNIT/ML 3 ML VIAL SUBCUT ×4 (07:59→20:51)
[2023-06-03] MEDS: Furosemide 40 MG TABLET PO (08:00)
[2023-06-03] MEDS: Ferrous Sulfate 324 MG TABLET.DR PO (08:00)
[2023-06-03] MEDS: Insulin Glargine,Hum.rec.anlog 100 UNIT/ML 10 ML VIAL 14 UNIT SUBCUT (08:00)
[2023-06-03] MEDS: ARIPiprazole 2 MG TABLET PO (08:00)
[2023-06-03] MEDS: Megestrol Acetate 400 MG/10 ML ORAL.SUSP PO ×3 (08:00→20:49)
[2023-06-03] MEDS: buPROPion HCl XL 150 MG TAB.ER.24H PO (08:00)
[2023-06-03] MEDS: Sertraline HCL 100 MG TABLET 200 MG PO (08:01)
[2023-06-03] MEDS: Losartan Potassium 25 MG TABLET PO (08:01)
[2023-06-03] MEDS: acetaZOLAMIDE 250 MG TABLET 500 MG PO ×2 (08:01→20:49)
[2023-06-03] MEDS: Acetaminophen 325 MG TABLET 650 MG PO (08:01)
[2023-06-03] MEDS: buPROPion HCl XL 300 MG TAB.ER.24H PO (08:01)
[2023-06-03] MEDS: Cholecalciferol (Vitamin D3) 25 MCG TABLET PO (08:01)
[2023-06-03] MEDS: amLODIPine Besylate 5 MG TABLET PO (08:02)
[2023-06-03] MEDS: metFORMIN HCl 500 MG TABLET PO ×2 (08:02→20:49)
[2023-06-03] MEDS: Aspirin 81 MG TAB.CHEW PO (08:02)
[2023-06-03] MEDS: Empagliflozin 10 MG TABLET PO (08:02)
[2023-06-03] MEDS: Albuterol/Iprat 2.5/0.5MG 3 ML AMPUL.NEB INHALE ×4 (08:30→19:16)
--- NOTE | 2023-06-03 08:39 | P.DS_ITS ---
DS: Providers Provider Date of Service: 06/04/23 Date of admission: 06/01/23 00:12 Primary care physician: Unknown Physician Consults: 06/02/23 02:03 Consult to Wound Care Routine Consulting Provider: Silvia Goins Reason for consultation: coccygeal wound appears blanchable. Left lateral foot old Diabetic ulcer DS: Diagnosis Discharge Diagnosis (1) Dermatitis, unspecified: Status: Acute DS: Summary Hospital Course Hospital Course: from initial hpi: 62-year-old female with pertinent history of chronic hypoxemic hypercarbic respiratory failure due to COPD and OHS on 2-3 L supplemental oxygen at baseline and home BiPAP, congestive heart failure with preserved ejection fraction, mood disorder, mixed hyperlipidemia, insulin-dependent diabetes mellitus, essential hypertension who was sent to the emergency department for evaluation of hypoxemia. Patient does admit dyspnea and wheezing. She states she does not like to use her mask at home for breathing. Noted previous compliance issues and recurrent admissions for acute on chronic hypoxemic hypercarbic respiratory failure. [facility] found him to be hypoxemic on his baseline supplemental oxygen. In the emergency department, patient initially with respiratory acidosis which improved on BiPAP. Patient denies fever, chills, chest discomfort, abdominal pain, changes in urinary or bowel habits. hospital course: Patient was admitted for acute on chronic hypoxic and hypercapnic respiratory failure due to COPD/obesity hypoventilation syndrome with acute decompensation. She was treated with steroids and bronchodilators and wean down to her home oxygen level. Her shortness of breath significantly improved. She is feeling back to baseline will be discharged back to group home facility to complete 5 more days of prednisone. For diabetes she was given basal bolus insulin. From morbid obesity weight loss recommended. For chronic decubitus ulcers she received local wound care. For chronic diastolic CHF she was continued on Lasix maintenance. For hypertension was continue losartan. Time Spent with Patient Time attestation: Total time managing care of this patient today ____ minutes. Discharge coordination time: Greater than 30 minutes Quality: Safe Use of Opioids Does Pt have an Active Cancer Diagnosis on the Problem List?: No Quality: Stroke Does the patient have a stroke diagnosis?: No Physical Exam Vital Signs: Vital Signs: Last Vital Signs Temp 97.9 F 06/03/23 07:08 Pulse 90 09/19/23 08:31 Resp 20 06/03/23 08:31 BP 174/87 H 06/03/23 07:08 Pulse Ox 92 06/03/23 07:08 O2 Del Method Nasal Cannula 06/03/23 07:08 O2 Flow Rate 4 06/03/23 07:08 FiO2 28 06/01/23 07:15 Oxygen Flow Rate 30 05/31/23 13:25 BMI result Body Mass Index 46.8 General: AO X 3, no acute distress Resp: diminished bilateral, no accessory muscles used CVS: S1,S2,RRR GI: soft, non tender, non distended Neuro: motor grossly intact, alert Psych: appropriate affect, appropriate insight DS: Data Data Completed and Pending Completed studies during hospitalization [Text1]: Procedures Assistance with Respiratory Ventilation, Less than 24 Consecutive Hours, Continuous Positive Airway Pressure (04/04/23) Insertion of Endotracheal Airway into Trachea, Via Natural or Artificial Opening (11/18/21) Insertion of Infusion Device into Superior Vena Cava, Percutaneous Approach (11/18/21) Introduction of Vasopressor into Peripheral Vein, Percutaneous Approach (11/18/21) Respiratory Ventilation, 24-96 Consecutive Hours (11/18/21) Ultrasonography of Superior Vena Cava, Guidance (11/18/21) Labs on day of discharge: Laboratory Results - last 24 hr 06/01/23 06/01/23 06/01/23 01:07 07:14 11:22 VBG pH 7.33 VBG pCO2 74 VBG pO2 61 VBG HCO3 40 H VBG O2 Saturation 90.0 VBG Base Excess 10.8 POC Glucose 99 193 H 06/01/23 06/01/23 06/01/23 12:28 17:00 21:24 VBG pH VBG pCO2 VBG pO2 VBG HCO3 VBG O2 Saturation VBG Base Excess POC Glucose 162 H 194 H 192 H 06/02/23 06/02/23 06/02/23 07:42 10:54 16:10 VBG pH VBG pCO2 VBG pO2 VBG HCO3 VBG O2 Saturation VBG Base Excess POC Glucose 157 H 214 H 204 H 06/02/23 06/02/23 06/02/23 18:04 20:29 21:27 VBG pH VBG pCO2 VBG pO2 VBG HCO3 VBG O2 Saturation VBG Base Excess POC Glucose 242 H 276 H 345 H 06/03/23 07:03 VBG pH VBG pCO2 VBG pO2 VBG HCO3 VBG O2 Saturation VBG Base Excess POC Glucose 203 H Discharge Plan Discharge Anticipated Discharge Date/Time: 06/03/23 08:36 Patient Disposition: Xfer SNF Discharge Diagnosis: copd Referrals: Physician,Unknown J [Physician] - 06/02/23 Discharge Medications: New prednisone 20 mg tablet 40 mg PO DAILY Qty: 10 0RF Continued furosemide 40 mg Tablet 40 mg PO DAILY Qty: 30 0RF Protocol: Hold for SBP< HOLD for SBP < : 90 ipratropium-albuterol 0.5 mg-3 mg(2.5 mg base)/3 mL Solution For Nebulization 3 ml INHALATION TID PRN (Reason: Wheezing) potassium chloride 10 mEq Tablet Extended Release 10 meq PO DAILY Hold Instructions: Recheck K level in 1 week to decide if needed or not. Rx Instructions: recheck K level in 1 week to decide if needed or not. Culturelle 10 billion cell Capsule 1 cap PO BID bupropion HCl 150 mg tablet extended release 24 hr 1 tab PO DAILY Rx Instructions: take with 300mg; tdd 450mg magnesium hydroxide [Milk of Magnesia] 400 mg/5 mL Suspension 30 ml PO DAILY PRN (Reason: Constipation) Rx Instructions: USE IF NO BOWEL MOVEMENT FOR 3 DAYS Fleet Enema 19-7 gram/118 mL Enema 118 ml OK DAILY PRN (Reason: Constipation) Rx Instructions: IF NO BOWEL MOVEMENT 8 HOURS AFTER BISACODYL fluticasone propion-salmeterol [AirDuo RespiClick] 113-14 mcg/actuation aerosol powdr breath activated 1 inh inhalation BID Rx Instructions: rinse mouth after use AND SPIT OUT atorvastatin 80 mg Tablet 80 mg PO BEDTIME sennosides [senna] 8.6 mg Tablet 17.2 mg PO BEDTIME acetaminophen 325 mg Tablet 650 mg PO Q4H PRN (Reason: Fever Or Pain) polyethylene glycol 3350 [Miralax] 17 gram Powder In Packet 17 g PO DAILY PRN (Reason: Constipation) tizanidine 4 mg Tablet 4 mg PO BEDTIME PRN (Reason: Muscle Spasm) sertraline 100 mg Tablet 200 mg PO DAILY melatonin 3 mg Tablet 3 mg PO BEDTIME ferrous sulfate 325 mg (65 mg iron) Tablet 325 mg PO DAILY insulin lispro 100 unit/mL Insulin Pen See Protocol SUBCUT QIDACHS Protocol: Insulin Correction Scale Less than or equal to 110 ---- Give (units): 0 111 to 150 Give (units): 0 151 to 200 Give (units): 0 201 to 250 Give (units): 4 251 to 300 Give (units): 6 301 to 350 Give (units): 8 Greater than 350 Give (units): 10 Call MD if Blood Glucose > : 350 Rx Instructions: SLIDING SCALE IF BLOOD GLUCOSE GREATER THAN 400, GIVE 12 UNITS AND NOTIFY MD amlodipine 5 mg Tablet 5 mg PO DAILY 30 Days Qty: 30 0RF Protocol: Hold for SBP< HOLD for SBP < : 90 aspirin 81 mg Tablet,Chewable 81 mg PO DAILY acetazolamide 250 mg Tablet 500 mg PO BID Qty: 60 0RF aripiprazole 2 mg tablet 2 mg PO DAILY Jardiance 10 mg Tablet 10 mg PO DAILY 30 Days Qty: 30 0RF losartan 25 mg tablet 25 mg PO DAILY ergocalciferol (vitamin D2) 1,250 mcg (50,000 unit) Capsule 1,250 mcg PO SA cholecalciferol (vitamin D3) 25 mcg (1,000 unit) Tablet 25 mcg PO DAILY olopatadine 0.2 % Drops 1 drp OPHTHALMIC (EYE) BEDTIME megestrol 400 mg/10 mL (40 mg/mL) suspension 400 mg PO TID insulin glargine [Lantus U-100 Insulin] 100 unit/mL solution 18 unit subcut DAILY metformin 500 mg tablet 500 mg PO BID Ozempic 0.25 mg or 0.5 mg (2 mg/3 mL) pen injector 0.5 mg subcut WE Rx Instructions: CHANGE TO 0.50 MG STARTING 01/22/23 bisacodyl 10 mg suppository 10 mg OK DAILY PRN (Reason: Constipation) Rx Instructions: GIVE IF NO RESULT FROM MILK OF MAGNESIA magnesium citrate [Citrate of Magnesia] Solution 150 ml PO DAILY PRN (Reason: Constipation) Rx Instructions: IF NO BOWEL MOVEMENT 12 HOURS AFTER FLEET ENEMA cyanocobalamin (vitamin B-12) 1,000 mcg capsule 1,000 mcg PO DAILY bupropion HCl 300 mg tablet extended release 24 hr 300 mg PO DAILY Rx Instructions: take with 150mg dose; tdd 450mg Discharge Orders: Discharge Order (Routine); Ordered 06/03/23 Ordered By: Salvador Claros Diet: Advance to usual diet Activity on Discharge: As tolerated Stand Alone Forms: Patient Portal Discharge page, Against Medical Advice Activity Restrictions/Additional Instructions: Please usual BiPAP all the time Care Plan Goals: recovery Health Concerns: copd Plan of Treatment: 5 more days prednisone Assessment: see above Patient Instructions: Hypoxia (ED)
--- NOTE | 2023-06-03 10:27 | HO.PM.IMPN ---
Subjective Subjective Date of Service: 06/03/23 Interval History: sob improved Physical Exam Vital Signs: Vital Signs: Last Vital Signs Temp 97.9 F 06/03/23 07:08 Pulse 90 06/03/23 08:31 Resp 20 06/03/23 08:31 BP 174/87 H 06/03/23 07:08 Pulse Ox 92 06/03/23 07:08 O2 Del Method Nasal Cannula 06/03/23 07:08 O2 Flow Rate 4 06/03/23 07:08 FiO2 28 06/01/23 07:15 Oxygen Flow Rate 30 05/31/23 13:25 BMI result Body Mass Index 46.8 General: AO X 3, no acute distress Resp: diminished bilateral, no accessory muscles used CVS: S1,S2,RRR GI: soft, non tender, non distended Neuro: motor grossly intact, alert Psych: appropriate affect, appropriate insight Objective Data Active Medications Acetaminophen (Acetaminophen 325 Mg Tablet) 650 mg PO Q6H PRN PRN Reason: Pain, Mild (Pain Scale 1-3) Last Admin: 06/03/23 08:01 Dose: 650 mg Documented By: VENUS Acetazolamide (Acetazolamide 250 Mg Tablet) 500 mg PO BID [facility] Last Admin: 06/03/23 08:01 Dose: 500 mg Documented By: VENUS Albuterol/Ipratropium (Albuterol/Iprat 2.5/0.5mg 3 Ml Ampul.Neb) 3 ml INHALE RQ4H WHILE AWAKE [facility] Last Admin: 06/03/23 08:30 Dose: 3 ml Documented By: ROSA Albuterol/Ipratropium (Albuterol/Iprat 2.5/0.5mg 3 Ml Ampul.Neb) 3 ml INHALE Q4H PRN PRN Reason: Wheezing Amlodipine Besylate (Amlodipine Besylate 5 Mg Tablet) 5 mg PO DAILY [facility]; Protocol Last Admin: 06/03/23 08:02 Dose: 5 mg Documented By: VENUS Aripiprazole (Aripiprazole 2 Mg Tablet) 2 mg PO DAILY [facility] Last Admin: 06/03/23 08:00 Dose: 2 mg Documented By: VENUS Aspirin (Aspirin 81 Mg Tab.Chew) 81 mg PO DAILY [facility] Last Admin: 06/03/23 08:02 Dose: 81 mg Documented By: VENUS Atorvastatin Calcium (Atorvastatin Calcium 80 Mg Tablet) 80 mg PO BEDTIME [facility] Last Admin: 06/02/23 19:49 Dose: 80 mg Documented By: SHAN Bisacodyl (Bisacodyl 10 Mg Supp.Rect) 10 mg DC DAILY PRN PRN Reason: Constipation Bupropion HCl (Bupropion Hcl Xl 150 Mg Tab.Er.24h) 150 mg PO DAILY [facility] Last Admin: 06/03/23 08:00 Dose: 150 mg Documented By: VENUS Bupropion HCl (Bupropion Hcl Xl 300 Mg Tab.Er.24h) 300 mg PO DAILY [facility] Last Admin: 06/03/23 08:01 Dose: 300 mg Documented By: VENUS Dextrose (Dextrose 50 % 25 Gm/50 Ml Syringe) 25 gm IVPUSH Q15M PRN; Protocol PRN Reason: per Hypoglycemia Standing Ord. Empagliflozin (Empagliflozin 10 Mg Tablet) 10 mg PO DAILY [facility] Last Admin: 06/03/23 08:02 Dose: 10 mg Documented By: VENUS Enoxaparin Sodium (Enoxaparin Sodium 40 Mg/0.4 Ml Syringe) 40 mg SUBCUT Q24H [facility] Last Admin: 06/03/23 00:57 Dose: 40 mg Documented By: SHAN Ergocalciferol (Ergocalciferol (Vitamin D2) 1,250 Mcg Capsule) 1,250 mcg PO Sa@0900 [facility] Ferrous Sulfate (Ferrous Sulfate 324 Mg Tablet.Dr) 324 mg PO DAILY [facility] Last Admin: 06/03/23 08:00 Dose: 324 mg Documented By: VENUS Furosemide (Furosemide 40 Mg Tablet) 40 mg PO DAILY [facility]; Protocol Last Admin: 06/03/23 08:00 Dose: 40 mg Documented By: VENUS Glucose (Glucose Gel 15 Gm Gel..Gram.) 15 gm PO Q15M PRN; Protocol PRN Reason: per Hypoglycemia Standing Ord. Insulin Glargine (Insulin Glargine,Hum.Rec.Anlog 100 Unit/Ml 10 Ml Vial) 14 unit SUBCUT DAILY [facility] Last Admin: 06/03/23 08:00 Dose: 14 unit Documented By: VENUS Insulin Human Lispro (Insulin Lispro 100 Unit/Ml 3 Ml Vial) 0 unit SUBCUT QIDACHS [facility]; Protocol Last Admin: 06/03/23 07:59 Dose: 4 unit Documented By: VENUS Losartan Potassium (Losartan Potassium 25 Mg Tablet) 25 mg PO DAILY [facility]; Protocol Last Admin: 06/03/23 08:01 Dose: 25 mg Documented By: VENUS Megestrol Acetate (Megestrol Acetate 400 Mg/10 Ml Oral.Susp) 400 mg PO TID [facility] Last Admin: 06/03/23 08:00 Dose: 400 mg Documented By: VENUS Melatonin (Melatonin 3 Mg Tablet) 6 mg PO BEDTIME PRN PRN Reason: Insomnia Melatonin (Melatonin 3 Mg Tablet) 3 mg PO BEDTIME [facility] Last Admin: 06/02/23 19:49 Dose: 3 mg Documented By: SHAN Metformin HCl (Metformin Hcl 500 Mg Tablet) 500 mg PO BID [facility] Last Admin: 06/03/23 08:02 Dose: 500 mg Documented By: VENUS Methylprednisolone Sodium Succinate (Methylprednisolone Sod Succ 40 Mg/Ml Vial) 40 mg IVPUSH Q12H [facility] Last Admin: 06/03/23 00:57 Dose: 40 mg Documented By: SHAN Non-Formulary Medication (Olopatadine) 1 drop EYE-BOTH BEDTIME [facility] Non-Formulary Medication (Semaglutide [Ozempic]) 0.5 mg SUBCUT [facility] Ondansetron HCl (Ondansetron Hcl 4 Mg/2 Ml Vial) 4 mg IVPUSH Q8H PRN PRN Reason: Nausea and Vomiting Polyethylene Glycol (Polyethylene Glycol 3350 17 Gm Powd.Pack) 17 gm PO DAILY PRN PRN Reason: Constipation Senna (Sennosides 8.6 Mg Tablet) 17.2 mg PO BEDTIME [facility] Last Admin: 06/02/23 19:49 Dose: 17.2 mg Documented By: SHAN Sertraline HCl (Sertraline Hcl 100 Mg Tablet) 200 mg PO DAILY [facility] Last Admin: 06/03/23 08:01 Dose: 200 mg Documented By: VENUS Sodium Chloride (0.9 % Sodium Chloride Flush 3 Ml Syringe) [address] [facility] [facility] Last Admin: 06/02/23 19:58 Dose: 3 ml Documented By: SHAN Tizanidine HCl (Tizanidine Hcl 4 Mg Tablet) 4 mg PO BEDTIME PRN PRN Reason: Muscle Spasm Vitamin D (Cholecalciferol (Vitamin D3) 25 Mcg Tablet) 25 mcg PO DAILY [facility] Last Admin: 06/03/23 08:01 Dose: 25 mcg Documented By: VENUS Labs 06/02/23 06:46 06/02/23 06:46 Labs: Laboratory Results - last 24 hr 06/01/23 06/01/23 06/01/23 01:07 07:14 11:22 VBG pH 7.33 VBG pCO2 74 VBG pO2 61 VBG HCO3 40 H VBG O2 Saturation 90.0 VBG Base Excess 10.8 POC Glucose 99 193 H 06/01/23 06/01/23 06/01/23 12:28 17:00 21:24 VBG pH VBG pCO2 VBG pO2 VBG HCO3 VBG O2 Saturation VBG Base Excess POC Glucose 162 H 194 H 192 H 06/02/23 06/02/23 06/02/23 07:42 10:54 16:10 VBG pH VBG pCO2 VBG pO2 VBG HCO3 VBG O2 Saturation VBG Base Excess POC Glucose 157 H 214 H 204 H 06/02/23 06/02/23 06/02/23 18:04 20:29 21:27 VBG pH VBG pCO2 VBG pO2 VBG HCO3 VBG O2 Saturation VBG Base Excess POC Glucose 242 H 276 H 345 H 06/03/23 07:03 VBG pH VBG pCO2 VBG pO2 VBG HCO3 VBG O2 Saturation VBG Base Excess POC Glucose 203 H Assessment and Plan (1) Acute respiratory failure with hypoxia: Status: Acute Plan 62F PMH chornic hypoxic and hypercapneic resp failure due to copd and ohs on 2-3L home o2 and home bipap. chronic diastolic chf, mood disorder, morbid obesity, hld, dm, htn, presented with sob Acute on chronic hypoxic and hypercapnic respiratory failure due to COPD/ohs with acute decompensation Continue steroids and bronchodilators Diabetes Basal bolus insulin Morbid obesity Weight loss Chronic decubitus ulcer Local wound care Chronic diastolic CHF Lasix maintenance Hypertension Losartan DVT prophylaxis with Lovenox Do not intubate reason for continued hospitalization:safe dispo Time Spent With Patient Time: Total time managing care of this patient today ____ minutes. Quality Stroke Does the patient have a stroke diagnosis?: No VTE Prior VTE?: No VTE Risk Level:: Medical - moderate - high VTE Device Contraindication: Treatment Not Indicated VTE Drug Contraindication: N/A - Med Ordered
--- NOTE | 2023-06-03 10:36 | MHC.CM.PN ---
Patient is a LTC Resident @ [facility] and a [facility] bedhold. D/T staffing issues at [facility], CM anticipated dc tomorrow. has been made aware.
--- NOTE | 2023-06-03 10:43 | P.CDIM_ITS ---
PROVIDER RESPONSE TEXT: To clarify, the appropriate diagnosis supported by the clinical indicators: Diabetes mellitus with hyperglycemia QUERY TEXT: PHYSICIAN'S DOCUMENTATION REQUEST Date of Query: 06/03/2023 10:35 AM EDT Patient Name: Bonnie Das Admit Date: 06/01/2023 Dear Salvador Claros, A review of the medical record indicates additional documentation may be needed. Please review below and update the documentation accordingly. Clinical Indicators: POC glucose 345 H Basal bolus insulin Please clarify the following regarding the Complications of Diabetes Mellitus (DM): Diabetes mellitus with hyperglycemia No complications of DM Other (explain)Clinically unable to determine (explain)Thank you, Shanita Contreras, CCS, CDIS Use of terms such as suspected, likely, concern for, or probable (associated with a specific diagnosi s that is being evaluated, monitored, or treated as if it exists) are acceptable and can be coded in the inpatient se tting, when documented at the time of discharge. Please use your independent medical judgment in providing your response. THIS QUERY IS PART OF THE PERMANENT MEDICAL RECORD
[2023-06-03] MEDS: 0.9 % Sodium Chloride Flush 3 ML SYRINGE IVFLUSH ×3 (11:57→20:51)
[2023-06-03] MEDS: Melatonin 3 MG TABLET PO (20:49)
[2023-06-03] MEDS: Sennosides 8.6 MG TABLET 17.2 MG PO (20:49)
[2023-06-03] MEDS: Atorvastatin Calcium 80 MG TABLET PO (20:49)
[2023-06-04] MEDS: Enoxaparin Sodium 40 MG/0.4 ML SYRINGE SUBCUT (00:54)
[2023-06-04] MEDS: methylPREDNISolone Sod Succ 40 MG/ML VIAL IVPUSH ×2 (00:54→11:20)
[2023-06-04 04:00] VITALS: BP 164/75; PULSE 72; RESP 19; TEMP 36.1; O2SAT 91
[2023-06-04 06:57] LABS: Glucose, Whole Blood 341 mg/dL (60-115)
[2023-06-04 06:58] LABS: Glucose, Whole Blood 294 mg/dL (60-115)
[2023-06-04 07:01] LABS: Glucose, Whole Blood 317 mg/dL (60-115)
[2023-06-04 07:02] LABS: Glucose, Whole Blood 261 mg/dL (60-115)
[2023-06-04 07:14] VITALS: BP 177/82; PULSE 70; RESP 20; TEMP 37.1; O2SAT 95
[2023-06-04 07:49] VITALS: PULSE 74; RESP 20; O2SAT 94
[2023-06-04] MEDS: Albuterol/Iprat 2.5/0.5MG 3 ML AMPUL.NEB INHALE ×2 (07:49→12:32)
[2023-06-04] MEDS: Insulin Lispro 100 UNIT/ML 3 ML VIAL SUBCUT ×2 (08:06→11:20)
[2023-06-04] MEDS: Insulin Glargine,Hum.rec.anlog 100 UNIT/ML 10 ML VIAL 14 UNIT SUBCUT (08:07)
[2023-06-04] MEDS: ARIPiprazole 2 MG TABLET PO (08:08)
[2023-06-04] MEDS: Megestrol Acetate 400 MG/10 ML ORAL.SUSP PO (08:08)
[2023-06-04] MEDS: buPROPion HCl XL 300 MG TAB.ER.24H PO (08:08)
[2023-06-04] MEDS: Furosemide 40 MG TABLET PO (08:08)
[2023-06-04] MEDS: Losartan Potassium 25 MG TABLET PO (08:08)
[2023-06-04] MEDS: metFORMIN HCl 500 MG TABLET PO (08:08)
[2023-06-04] MEDS: acetaZOLAMIDE 250 MG TABLET 500 MG PO (08:08)
[2023-06-04] MEDS: Sertraline HCL 100 MG TABLET 200 MG PO (08:08)
[2023-06-04] MEDS: buPROPion HCl XL 150 MG TAB.ER.24H PO (08:08)
[2023-06-04] MEDS: Cholecalciferol (Vitamin D3) 25 MCG TABLET PO (08:09)
[2023-06-04] MEDS: Ferrous Sulfate 324 MG TABLET.DR PO (08:09)
[2023-06-04] MEDS: amLODIPine Besylate 5 MG TABLET PO (08:09)
[2023-06-04] MEDS: Empagliflozin 10 MG TABLET PO (08:09)
[2023-06-04] MEDS: Aspirin 81 MG TAB.CHEW PO (08:09)
[2023-06-04] MEDS: 0.9 % Sodium Chloride Flush 3 ML SYRINGE IVFLUSH (08:22)
--- NOTE | 2023-06-04 08:47 | P.CDIM_ITS ---
PROVIDER RESPONSE TEXT: To clarify, the appropriate diagnosis supported by the clinical indicators: Pressure (decubitus) ulcer Stage 2 coccyx QUERY TEXT: PHYSICIAN'S DOCUMENTATION REQUEST Date of Query: 06/04/2023 08:38 AM EDT Patient Name: Bonnie Das Admit Date: 06/01/2023 Dear Salvador Claros, A review of the medical record indicates additional documentation may be needed. Please review below and update the documentation accordingly. Clinical Indicators: Wound assessment/Pressure Injury notes 06/03 - Pressure injury Stage II coccyx Barrier cream applied and repositioned Based on the above, could you please provide further information regarding the ulcer/wound: Pressure (decubitus) ulcer Stage 2 coccyx Other etiology of skin assessment Other (explain)Clinically unable to determine (explain)Thank you, Shanita Contreras, CCS, CDIS Use of terms such as suspected, likely, concern for, or probable (associated with a specific diagnosi s that is being evaluated, monitored, or treated as if it exists) are acceptable and can be coded in the inpatient se tting, when documented at the time of discharge. Please use your independent medical judgment in providing your response. THIS QUERY IS PART OF THE PERMANENT MEDICAL RECORD
--- NOTE | 2023-06-04 10:47 | MHC.CM.PN ---
Pt has been medically cleared for d/c to LTC today: Pt will return to LTC at [facility] today at 1pm via [facility] ambulance, CM has left a detailed message for Pt. Miah at home #[phone], informing him of d/c plan. Last IMM addressed on 06/02/23.
--- NOTE | 2023-06-04 11:03 | MHC.CLN ---
F/U PT WITH INCREASED NUTRITION RISK R/T PRESSURE INJURY DIET RX: 2200DM CARDIAC-APPROPRIATE PT RECEIVING ENSURE MAX BID TO PROMOTE WOUND HEALING PROVIDES 300KCALS, 60G PROTEIN MONITOR PO INTAKE CLOSELY
[2023-06-04 12:32] VITALS: PULSE 78; RESP 20; O2SAT 94
[2023-06-05 09:20] LABS: Glucose, Whole Blood 168 mg/dL (60-115)
[2023-06-05 09:21] LABS: Glucose, Whole Blood 217 mg/dL (60-115)
== END 2023-06-04 13:28 | disposition skilled nursing facility (03) | DRG 190 ==
LOC: HO.ED 21:10 → HO.EDOVER 06-01 00:28 → HO.IMC 06-01 00:58
PROVIDERS: Student in an Organized Health Care Education/Training Program; Admitting Provider Student in an Organized Health Care Education/Training Program; Emergency Provider Emergency Medicine Emergency Medical Services; PCP Internal Medicine; Visit Provider Internal Medicine
DX: J44.1 Chronic obstructive pulmonary disease with (acute) exacerbation (principal); J96.21 Acute and chronic respiratory failure with hypoxia; J96.22 Acute and chronic respiratory failure with hypercapnia; I50.32 Chronic diastolic (congestive) heart failure; Z68.42 Body mass index [BMI] 45.0-49.9, adult; E66.2 Morbid (severe) obesity with alveolar hypoventilation; I11.0 Hypertensive heart disease with heart failure; E11.65 Type 2 diabetes mellitus with hyperglycemia; I49.5 Sick sinus syndrome; L89.152 Pressure ulcer of sacral region, stage 2; L30.9 Dermatitis, unspecified; Z20.822 Contact with and (suspected) exposure to COVID-19; Z91.199 Patient's noncompliance with other medical treatment and regimen due to unspecified reason; Z91.A9 Caregiver's noncompliance with patient's other medical treatment and regimen; Z91.040 Latex allergy status; Z95.0 Presence of cardiac pacemaker; Z99.81 Dependence on supplemental oxygen; Z87.891 Personal history of nicotine dependence; Z79.4 Long term (current) use of insulin; Z79.82 Long term (current) use of aspirin; Z79.84 Long term (current) use of oral hypoglycemic drugs; Z79.899 Other long term (current) drug therapy
CPT/HCPCS: 36415; 80048; 80053; 82803; 82947; 83880; 84484; 85025; 85027; 85610; 87502; 87635; 93005; 94660; 99285; J1650; J2060; J2920

== ENCOUNTER → 2023-06-01 00:12 | Outpatient (BNV) | payer MEDICARE, MEDICAID, SELFPAY | PROVIDERS: Admitting Provider Student in an Organized Health Care Education/Training Program; Emergency Provider Emergency Medicine Emergency Medical Services; Visit Provider Student in an Organized Health Care Education/Training Program | DX: J96.01 Acute respiratory failure with hypoxia (principal) | CPT/HCPCS: 99222; 99232; 99233; 99239; 99499 ==

== ENCOUNTER 2023-07-01 19:56 | Inpatient (IN) | payer OTHER, MEDICARE, MEDICAID, SELFPAY ==
--- NOTE | ~2023-07-01 | XR_ITS ---
EXAMINATION: XR CHEST CLINICAL INFORMATION: Shortness of breath. COMPARISON: 04/04/2023. TECHNIQUE: Frontal view of the chest was obtained. FINDINGS: The lung volumes are low. The cardiomediastinal silhouette is stable. There is diffuse increased markings. There is no definitive focal consolidation or pleural effusion. The bony structures are stable. XR/XR chest 1V IMPRESSION: The lung volumes limits evaluation. Diffuse increased markings probably chronic and/or technical. No definitive evidence for active cardiopulmonary disease.
--- NOTE | ~2023-07-01 | CT_ITS ---
EXAMINATION: CT HEAD WITHOUT CONTRAST CLINICAL INFORMATION: Encephalopathy. COMPARISON: CT scan of the head 01/04/2022. TECHNIQUE: Multidetector CT imaging of the head was obtained without the use of intravenous contrast. Coronal and sagittal reformatted images were generated at the technologist workstation. This CT examination was performed using dose optimization techniques as appropriate, variously including the following: *Automated exposure control *Adjustment of mA and/or kV according to patient size (this includes techniques or standardized protocols for targeted exams where dose is matched to indication/reason for exam; i.e. extremities or head) *Use of iterative reconstruction technique DLP: 1114 mGy-cm. FINDINGS: There is no evidence of acute intracranial hemorrhage or territorial infarction. No abnormal mass-effect or midline shift is seen. Texieira to white matter differentiation is well preserved. No extra-axial fluid collections are identified. The ventricles and sulci are slightly commensurately prominent consistent with diffuse volume loss. There are areas of low-attenuation in the periventricular subcortical white matter, consistent with chronic microvascular ischemic changes. There is mild prominence of the extra-axial CSF around the posteromedial right occipital lobe, which is unchanged. There are no acute osseous findings. There is hyperostosis frontalis interna. The study redemonstrates an extraconal intraorbital mass medial to the left medial rectus muscle which measures approximately 0.8 cm. The mastoid air cells are well-aerated. There is opacification of a posterior left ethmoid air cell, increased in size compared to prior imaging; there is no erosion of the sinus mclaughlin. CT/CT head/brain wo IV con IMPRESSION: 1. There are no acute bleeds or territorial infarcts. No masses are demonstrated. 2. There are chronic microvascular ischemic changes and there is diffuse volume loss. 3. There is opacification of a posterior left ethmoid air cell which is enlarging compared to prior imaging. This may be consistent with a proteinaceous cyst. Recommend ENT consultation. 4. The study redemonstrates an extraconal nodule in the posteromedial left orbit, which appears stable.
[2023-07-01 20:06] VITALS: BP 173/80; PULSE 82; O2SAT 92
--- NOTE | 2023-07-01 20:20 | ECG_ITS ---
Test Reason : sob Blood Pressure : / mmHG Vent. Rate : 092 BPM Atrial Rate : 092 BPM P-R Int : 182 ms QRS Dur : 160 ms QT Int : 406 ms P-R-T Axes : 044 -38 110 degrees QTc Int : 502 ms Normal sinus rhythm Left axis deviation Left bundle branch block Abnormal ECG When compared with ECG of 31-MAY-2023 14:05, No significant changes seen Referred By: Nadine Gonzalez Electronically Signed By:JANET AVILEZ MD
[2023-07-01 20:34] VITALS: BP 97/67; PULSE 88; RESP 19; TEMP 36.4; O2SAT 93; BMI 60.0
[2023-07-01 20:39] LABS: MANUAL DIFF FLAG NO
[2023-07-01 20:42] LABS: VBG Base Excess 10.7 mmol/L; VBG HCO3 38 mmol/L (22-26); VBG pCO2 64 mmHg; VBG pH 7.38 (7.32-7.43); VBG pO2 59 mmHg
[2023-07-01 20:45] LABS: Venous Blood Gas Refer to POC result
[2023-07-01 20:50] LABS: Basophils Percent Auto 0.5 % (0-2); Eosinophils Absolute Auto 0.1 X10*3/uL (0.0-0.4); Eosinophils Percent Auto 1.6 % (0-4); Imm Gran Abs Auto 0.05 X10*3/uL (0.00-0.03); Imm Gran Pct Auto 0.8 % (0.0-0.4); Lymphocytes Absolute Auto 0.6 X10*3/uL (1.2-4.9); Lymphocytes Percent Auto 9.2 % (20-40); Mean Corpuscular HGB Conc 28.3 g/dl (31.0-35.0); Mean Corpuscular Hemoglobin 28.2 pg (27.0-33.0); Mean Corpuscular Volume 99.8 fL (80.0-98.0); Mean Platelet Volume 10.7 fL (9.4-12.3); Monocytes Absolute Auto 0.5 X10*3/uL (0.1-1.2); Monocytes Percent Auto 7.2 % (2-11); NRBC Pct Auto 0.5 /100WBC (0.0-0.2); Neutrophils Absolute Auto 5.2 x10*3/uL (2.0-8.3); Neutrophils Percent Auto 80.7 % (45-73); Platelet Count 233 X10*3/uL (160-400); Red Blood Count 4.61 X10*6/uL (4.20-5.50); Red Cell Distribution Width 15.1 % (11.0-16.0); White Blood Count 6.4 X10*3/uL (4.8-10.8)
[2023-07-01 20:52] LABS: INTERNATIONAL NORM RATIO 0.9 (0.9-1.1); Prothrombin Time 11.3 SEC (11.1-13.3)
[2023-07-01 20:57] VITALS: PULSE 95; RESP 22; O2SAT 95
[2023-07-01 20:59] LABS: IDNOW Serial# BCCEAD1C; Influenza A Negative (Negative); Influenza B2 Negative (Negative)
[2023-07-01 21:00] LABS: COVID-19 Test Negative (Negative); IDNOW Serial# 08D9AD1C
[2023-07-01 21:03] LABS: Alanine Aminotransferase 11 U/L (0-31); Albumin Level 3.8 g/dL (3.5-5.0); Alkaline Phosphatase 72 U/L (39-117); Anion Gap 18 (12-20); Aspartate Amino Transferase 14 U/L (5-31); Bilirubin Total 0.3 mg/dL (0.0-1.0); Blood Urea Nitrogen 19 mg/dL (9-16); Calcium 9.4 mg/dL (8.4-10.2); Carbon Dioxide 32 mmol/L (22-29); Chloride 99 mmol/L (96-108); Estimated Glomerular Filt Rate 57; Glucose Random 268 mg/dL (60-115); Potassium 4.5 mmol/L (3.3-5.1); Sodium 144 mmol/L (135-145); Total Protein 7.6 g/dL (6.5-8.0)
[2023-07-01 21:07] LABS: B Type Natriuretic Peptide 32 pg/mL (<100)
--- NOTE | 2023-07-01 21:15 | ED.SOB ---
HPI - SOB/Dyspnea General Chief Complaint: Dyspnea Stated Complaint: LOW 02. 92 ON 3L Time Seen by Provider: 07/01/23 20:19 Source: patient, EMS and other Mode of arrival: EMS History of Present Illness HPI Narrative: 62-year-old female brought in by EMS from the SNF with acute respiratory failure secondary to patient refusing to wear CPAP at night and she is on chronic 4 L of nasal cannula baseline with known combination of CHF and COPD. EMS found patient at 79% at the facility. She denies any fevers or chills. Related Data Home Medications Medication Instructions Recorded Confirmed acetaminophen 325 mg tablet 650 mg PO Q4H PRN Fever Or Pain 11/18/21 07/01/23 atorvastatin 80 mg tablet 80 mg PO BEDTIME 11/18/21 07/01/23 ferrous sulfate 325 mg (65 mg 325 mg PO DAILY 11/18/21 07/01/23 iron) tablet insulin lispro 100 unit/mL See Protocol subcut QIDACHS 11/18/21 07/01/23 subcutaneous pen melatonin 3 mg tablet 3 mg PO BEDTIME 11/18/21 07/01/23 polyethylene glycol 3350 17 gram 17 g PO DAILY PRN Constipation 11/18/21 07/01/23 oral powder packet (Miralax) sennosides 8.6 mg tablet (senna) 17.2 mg PO BEDTIME 11/18/21 07/01/23 sertraline 100 mg tablet 200 mg PO DAILY 11/18/21 07/01/23 tizanidine 4 mg tablet 4 mg PO BEDTIME PRN Muscle Spasm 11/18/21 07/01/23 aspirin 81 mg chewable tablet 81 mg PO DAILY 01/05/22 07/01/23 bupropion HCl 300 mg 24 hr tablet, 300 mg PO DAILY 04/09/22 07/01/23 extended release Lactobacillus rhamnosus GG 10 1 cap PO BID 10/09/22 07/01/23 billion cell capsule (Culturelle) bupropion HCl 150 mg 24 hr tablet, 1 tab PO DAILY 10/09/22 07/01/23 extended release ipratropium 0.5 mg-albuterol 3 mg 3 ml inhalation TID PRN Wheezing 10/09/22 07/01/23 (2.5 mg base)/3 mL nebulization soln potassium chloride 10 mEq 10 meq PO DAILY 10/09/22 07/01/23 tablet,extended release bisacodyl 10 mg rectal suppository 10 mg [place] DAILY PRN Constipation 10/21/22 07/01/23 fluticasone 113 mcg-salmeterol 14 1 inh inhalation BID 11/09/22 07/01/23 mcg/actuation breath activated powdr (AirDuo RespiClick) magnesium hydroxide 400 mg/5 mL 30 ml PO DAILY PRN Constipation 11/09/22 07/01/23 oral suspension (Milk of Magnesia) sodium phosphates 19 gram-7 118 ml [place] DAILY PRN Constipation 11/09/22 07/01/23 gram/118 mL enema (Fleet Enema) metformin 500 mg tablet 500 mg PO BID 12/27/22 07/01/23 semaglutide 0.25 mg or 0.5 mg (2 0.5 mg subcut WE 12/27/22 07/01/23 mg/3 mL) subcutaneous pen injector (Ozempic) aripiprazole 2 mg tablet 2 mg PO DAILY 01/12/23 07/01/23 cholecalciferol (vitamin D3) 25 25 mcg PO DAILY 04/04/23 07/01/23 mcg (1,000 unit) tablet insulin glargine 100 unit/mL 18 unit subcut DAILY 04/04/23 07/01/23 subcutaneous solution (Lantus U-100 Insulin) losartan 25 mg tablet 25 mg PO DAILY 04/04/23 07/01/23 megestrol 400 mg/10 mL (40 mg/mL) 400 mg PO TID 04/04/23 07/01/23 oral suspension olopatadine 0.2 % eye drops 1 drp ophthalmic (eye) QSHIFT 04/04/23 07/01/23 cyanocobalamin (vitamin B-12) 1,000 mcg PO DAILY 04/21/23 07/01/23 1,000 mcg capsule Previous Rx's Medication Instructions Recorded amlodipine 5 mg tablet 5 mg PO DAILY 30 days #30 tabs 11/26/21 furosemide 40 mg tablet 40 mg PO DAILY #30 tabs 04/05/22 acetazolamide 250 mg tablet 500 mg (2 x 250 mg) PO BID #60 tabs 01/06/23 empagliflozin 10 mg tablet 10 mg PO DAILY 30 days #30 tabs 01/17/23 (Jardiance) Allergies Allergy/AdvReac Type Severity Reaction Status Date / Time latex Allergy Unknown Unknown Verified 04/21/23 13:40 adhesive tape AdvReac Unknown Unknown Verified 04/21/23 13:40 bupropion [From Wellbutrin] AdvReac Unknown Unknown Verified 04/21/23 13:40 ibuprofen AdvReac Unknown Unknown Verified 04/21/23 13:40 Review of Systems Review of Systems: Pertinent positives and negatives as stated in [facility] Past Medical History Source: nursing notes reviewed Medical History Hypoventilation associated with obesity COPD (chronic obstructive pulmonary disease) Morbid obesity with BMI of 50.0-59.9, adult Acute and chronic respiratory failure Pressure injury of deep tissue of buttock Pressure ulcer, stage II, skin breakdown Hypertrophic nonobstructive cardiomyopathy Presence of permanent cardiac pacemaker Acute on chronic respiratory failure with hypoxia and hypercapnia Acute and chronic respiratory failure with hypercapnia Metabolic encephalopathy Morbid obesity Acute and chronic respiratory failure with hypercapnia Urinary tract infection due to ESBL Klebsiella Respiratory failure Presence of permanent cardiac pacemaker Sick sinus syndrome Obesity hypoventilation syndrome Morbid obesity Heart block AV third degree PAD (peripheral artery disease) Diabetic ulcer of foot associated with diabetes mellitus due to underlying condition, with fat layer exposed Atelectasis of both lungs Respiratory failure with hypoxia and hypercapnia Hypoventilation associated with obesity syndrome SMILEY (obstructive sleep apnea) Morbid obesity Pulmonary embolism CHF (congestive heart failure) Clostridium difficile infection Hypertension Diabetes mellitus, type 2 Depression Arthritis Anemia Surgical History History of total knee replacement Social History Social History Household Members: None [facility] confused, unable to ascertain further Are you a primary career services representative to a significant other at home: No Do you presently have visiting nurse or other home services: Yes Unable to assess alcohol history related to: Unable to respond and Unknown Alcohol intake: never Patient Tobacco Use Status: Former Tobacco user Quit Date: 30years ago Tobacco use type: Cigarette Cigarette Packs Per Day: 20 Cigarettes Per Day: 400.0 Years Smoked: 20 e-Cigarette/Vaping Use: Never Used Second Hand Smoke Exposure: No Substance Use Type: Unknown Advance Directives: Yes Advance Directives on File: Yes Advance Directives Date on File: 01/07/23 service: No Current occupational status: disabled Physical Exam Vital Signs: Vital Signs: Last Vital Signs Temp 98.7 F 07/01/23 21:52 Pulse 89 07/01/23 22:00 Resp 20 07/01/23 22:00 BP 124/65 07/01/23 21:52 Pulse Ox 93 07/01/23 21:52 O2 Del Method CPAP 07/01/23 21:52 FiO2 30 07/01/23 21:52 Oxygen Flow Rate 4 07/01/23 20:34 BMI result Body Mass Index 60.0 VITAL SIGNS: Reviewed. GENERAL: Elevated BMI Well developed, well nourished, in no acute distress. HEAD: Normocephalic/atraumatic EYES: PERRLA, EOMI EARS: Ext canals without abnormality NOSE: Nares patent bilateral OROPHARYNX: no oral lesions noted, posterior pharynx clear NECK: Supple, no adenopathy LUNGS: Normal breath sounds. No adventitious sounds or accessory muscle use. SpO2<93> on additional OxyMask with 4 L via nasal cannula CARDIOVASCULAR: Regular rate and rhythm without noted murmurs ABDOMEN: Soft, non-tender, non-distended with bowel sounds. MUSCULOSKELETAL: No tenderness, deformities, or effusions noted on gross inspection. EXTREMITIES: No cyanosis, clubbing or edema. SKIN: Inspection of the skin reveals no rashes NEUROLOGIC: Drowsy and oriented x 3. Strength and sensation to light touch were grossly intact x 4. Medications Administered Discontinued Medications Generic Name Dose Route Start Last Admin Trade Name Freq PRN Reason Stop Dose Admin Albuterol Sulfate 5 mg/ 7.5 mg 07/01/23 21:16 07/01/23 21:59 Albuterol Sulfate 2.5 mg INHALE 07/01/23 21:17 7.5 mg ONCE ONE Administration Methylprednisolone Sodium Succinate 125 mg 07/01/23 21:15 07/01/23 21:37 Methylprednisolone Sod Succ 125 Mg/2 Ml Vial IVPUSH 07/01/23 21:16 125 mg ONCE ONE Administration Nystatin 1 appl 07/01/23 21:30 07/01/23 21:39 Nystatin Powder 15 Gm Bottle TOPICAL 07/01/23 21:31 1 appl ONCE ONE Administration Protocol Medical Decision Making Medical Decision Making MDM Narrative: 2020: This is a 62-year-old female with history and clinical presentation of continued noncompliance with overnight CPAP, patient has been here several times with acute respiratory failure. I did review the VBG which shows hypercapnia, however I do not feel that this is an exacerbation of underlying COPD condition in instead feel that this is entirely attributable to patient's refusal to wear CPAP at night. I reviewed all investigations and hematologic indices are negative for leukocytosis there is a chronic left shift, no anemia or thrombocytopenia. Coagulation studies are within normal limits. VBG is not significant for respiratory acidosis but there is evidence of hypercapnia. Chemistry indices are negative for BERNIE or electrolyte abnormalities. BNP is negligible. Viral testing is negative for evidence of COVID-19 or influenza. This time I do not think the patient requires any antibiotics. Lactic acid and blood cultures were drawn. Patient will be placed on her typical CPAP and will repeat VBG. Patient is also noted to have chronic skin breakdown of bilateral buttocks. 2125: I have discussed the case with inpatient hospitalist. 2235: I suspect infection with a positive urinalysis, this was communicated to the inpatient hospitalist and patient will also receive Rocephin. Chest x-ray negative for infiltrates and otherwise my interpretation is in agreement with radiology's impression. Differential Diagnosis Differential Diagnoses: The differential diagnosis associated with the presentation includes Please see the discussion above Admission/Observation Consideration of admission/observation: Escalation of care including admission/observation considered Please see the discussion above Consult Healthcare Provider Management of the patient was discussed with: Hospitalist Please see the discussion above Lab Data MDM Lab Attestation statement: I reviewed the patient's lab results. Please see the discussion above 07/01/23 20:30 07/01/23 20:30 Labs: Lab Results 07/01/23 07/01/23 07/01/23 Range/Units 20:30 20:34 20:36 WBC 6.4 (4.8-10.8) X10*3/uL RBC 4.61 (4.20-5.50) X10*6/uL Hgb 13.0 (12.0-16.0) g/dl Hct 46.0 (37.0-47.0) % MCV 99.8 H (80.0-98.0) fL MCH 28.2 (27.0-33.0) pg MCHC 28.3 L (31.0-35.0) g/dl RDW 15.1 (11.0-16.0) % Plt Count 233 (160-400) X10*3/uL MPV 10.7 (9.4-12.3) fL Immature Gran % (Auto) 0.8 H (0.0-0.4) % Neut % (Auto) 80.7 H (45-73) % Lymph % (Auto) 9.2 L (20-40) % [place] % (Auto) 7.2 (2-11) % Eos % (Auto) 1.6 (0-4) % Baso % (Auto) 0.5 (0-2) % Lymph # (Auto) 0.6 L (1.2-4.9) X10*3/uL [place] # (Auto) 0.5 (0.1-1.2) X10*3/uL Eos # (Auto) 0.1 (0.0-0.4) X10*3/uL Baso # (Auto) 0.0 (0.0-0.2) X10*3/uL Abs Immat Gran (auto) 0.05 H (0.00-0.03) X10*3/uL Absolute Neuts (auto) 5.2 (2.0-8.3) x10*3/uL Absolute Nucleated RBC 0.030 H (0.0-0.012) X10*3/uL Nucleated RBC % (auto) 0.5 H (0.0-0.2) /100WBC PT 11.3 (11.1-13.3) SEC INR 0.9 (0.9-1.1) VBG pH 7.38 (7.32-7.43) VBG pCO2 64 mmHg VBG pO2 59 mmHg VBG HCO3 38 H (22-26) mmol/L VBG O2 Saturation 90.0 % VBG Base Excess 10.7 mmol/L Sodium 144 (135-145) mmol/L Potassium 4.5 (3.3-5.1) mmol/L Chloride 99 (96-108) mmol/L Carbon Dioxide 32 H (22-29) mmol/L Anion Gap 18 (12-20) BUN 19 H (9-16) mg/dL Creatinine 0.98 (0.5-1.4) mg/dL Estim Creat Clear Calc 83.0 Estimated GFR 57 Random Glucose 268 H (60-115) mg/dL Lactic Acid 1.0 (0.5-2.0) mmol/L Calcium 9.4 (8.4-10.2) mg/dL Total Bilirubin 0.3 (0.0-1.0) mg/dL AST 14 (5-31) U/L ALT 11 (0-31) U/L Alkaline Phosphatase 72 (39-117) U/L B-Natriuretic Peptide 32 (<100) pg/mL Total Protein 7.6 (6.5-8.0) g/dL Albumin 3.8 (3.5-5.0) g/dL Urine Color Urine Appearance Urine pH (5.0-9.0) Ur Specific [place] (1.005-1.025) Urine Protein (Neg-Trace) mg/dL Urine Glucose (UA) (Negative) mg/dL Urine Ketones (Negative) mg/dL Urine Blood (Negative) Urine Nitrite (Negative) Ur Leukocyte Esterase (Negative) COVID-19 (LIS) Negative (Negative) COVID-19 Clin Com See Note Influenza Type A (CHUNG) Negative (Negative) Influenza Type B (CHUNG) Negative (Negative) Influenza A & B Note See Note 07/01/23 Range/Units 21:55 WBC (4.8-10.8) X10*3/uL RBC (4.20-5.50) X10*6/uL Hgb (12.0-16.0) g/dl Hct (37.0-47.0) % MCV (80.0-98.0) fL MCH (27.0-33.0) pg MCHC (31.0-35.0) g/dl RDW (11.0-16.0) % Plt Count (160-400) X10*3/uL MPV (9.4-12.3) fL Immature Gran % (Auto) (0.0-0.4) % Neut % (Auto) (45-73) % Lymph % (Auto) (20-40) % [place] % (Auto) (2-11) % Eos % (Auto) (0-4) % Baso % (Auto) (0-2) % Lymph # (Auto) (1.2-4.9) X10*3/uL [place] # (Auto) (0.1-1.2) X10*3/uL Eos # (Auto) (0.0-0.4) X10*3/uL Baso # (Auto) (0.0-0.2) X10*3/uL Abs Immat Gran (auto) (0.00-0.03) X10*3/uL Absolute Neuts (auto) (2.0-8.3) x10*3/uL Absolute Nucleated RBC (0.0-0.012) X10*3/uL Nucleated RBC % (auto) (0.0-0.2) /100WBC PT (11.1-13.3) SEC INR (0.9-1.1) VBG pH (7.32-7.43) VBG pCO2 mmHg VBG pO2 mmHg VBG HCO3 (22-26) mmol/L VBG O2 Saturation % VBG Base Excess mmol/L Sodium (135-145) mmol/L Potassium (3.3-5.1) mmol/L Chloride (96-108) mmol/L Carbon Dioxide (22-29) mmol/L Anion Gap (12-20) BUN (9-16) mg/dL Creatinine (0.5-1.4) mg/dL Estim Creat Clear Calc Estimated GFR Random Glucose (60-115) mg/dL Lactic Acid (0.5-2.0) mmol/L Calcium (8.4-10.2) mg/dL Total Bilirubin (0.0-1.0) mg/dL AST (5-31) U/L ALT (0-31) U/L Alkaline Phosphatase (39-117) U/L B-Natriuretic Peptide (<100) pg/mL Total Protein (6.5-8.0) g/dL Albumin (3.5-5.0) g/dL Urine Color Yellow Urine Appearance Clear Urine pH 5.0 (5.0-9.0) Ur Specific [place] 1.025 (1.005-1.025) Urine Protein Negative (Neg-Trace) mg/dL Urine Glucose (UA) >=1000 H (Negative) mg/dL Urine Ketones Negative (Negative) mg/dL Urine Blood Moderate (2+) H (Negative) Urine Nitrite Positive H (Negative) Ur Leukocyte Esterase Small (1+) H (Negative) COVID-19 (LIS) (Negative) COVID-19 Clin Com Influenza Type A (CHUNG) (Negative) Influenza Type B (CHUNG) (Negative) Influenza A & B Note Independent Interpretation I performed an independent interpretation of an: EKG Interpretation: Normal sinus rhythm, HR-92, LBBB, no STEMI, QTC is within normal limits. Radiology Impression Discussion of test interpretation with radiology: I have reviewed the radiologist's reading. Radiologist Impression: Please see the discussion above External Record Review External record reviewed: Outpatient record, Prior outpatient labs and Prior outpatient radiology Chronic Conditions Patient?s care impacted by: Hypertension Morbid obesity, CHF, COPD, SMILEY Critical Care Time Critical Care Time Critical Care Time: Yes Total Critical Care Time: 45 Attestation: I personally attest to this time spent taking care of the patient. Discharge Plan Discharge Clinical Impression: Acute hypercapnic respiratory failure, Urinary tract infection Patient Disposition: Admitted As Inpatient
--- NOTE | 2023-07-01 21:23 | PHA.MEDREC ---
Pharmacy Consult ? Medication Reconciliation Pharmacy has completed the medication reconciliation. Patient came from [facility] with med priya, Hyacinth Motley, MounikaD
[2023-07-01] MEDS: methylPREDNISolone Sod Succ 125 MG/2 ML VIAL IVPUSH (21:37)
[2023-07-01] MEDS: Nystatin Powder 15 GM BOTTLE 1 APPL TOPICAL (21:39)
[2023-07-01 21:52] VITALS: BP 124/65; PULSE 81; RESP 20; TEMP 37.1; O2SAT 93
[2023-07-01] MEDS: Albuterol Sulfate 5 MG, Albuterol Sulfate (0.083%) 2.5 MG 7.5 MG INHALE (21:59)
[2023-07-01 22:00] VITALS: PULSE 89; RESP 20; O2SAT 94
[2023-07-01 22:03] LABS: Appearance Urine Clear; Color Urine Yellow; Glucose Urine UA >=1000 mg/dL (Negative); Leukocyte Esterase Urine Small (1+) (Negative); Nitrite Urine Positive (Negative); Specific Gravity - Urine 1.025 (1.005-1.025); UMIC TRIGGER UACC YES; Urine Blood Moderate (2+) (Negative); Urine Ketones Negative (Negative); Urine Protein Negative (Neg-Trace)
[2023-07-01 22:36] LABS: Bacteria Urine 4+ (None Seen); Hyaline Casts Urine 0-2 /LPF (0-2); Squamous Epithelial Cell Urine 0-2 /HPF (0-2); UACC Culture Trigger YES; WBC Urine >50 /HPF (0-5)
--- NOTE | 2023-07-01 22:44 | P.HPHOSP_ITS ---
History of Present Illness Date of Service: 07/01/23 Chief Complaint: Dyspnea This is a 62-year-old female with pertinent history of chronic hypoxemic hypercarbic respiratory failure due to COPD and OHS on 2-3 L supplemental oxygen at baseline and home BiPAP, congestive heart failure with preserved ejection fraction, mood disorder, mixed hyperlipidemia, insulin-dependent diabetes mellitus, essential hypertension who was sent to the emergency department for evaluation of hypoxemia. Patient does admit dyspnea and wheezing. She states she does not like to use her mask at home for breathing. Noted previous compliance issues and recurrent admissions for acute on chronic hypoxemic hypercarbic respiratory failure. [facility] found him to be hypoxemic on her baseline supplemental oxygen. Patient denies fever, chills, chest discomfort, abdominal pain, changes in bowel habits. Does have increased urgency and hesitancy Review of Systems 2 Constitutional: Constitutional: Reports fatigue Cardiovascular: Cardiovascular: Reports dyspnea on exertion Respiratory: Respiratory: Reports cough, Reports dyspnea on exertion and Reports wheezing Gastrointestinal: Gastrointestinal: Reports no additional gastrointestinal complaints Genitourinary: Genitourinary: Reports urinary incontinence and Reports urinary hesitancy Endocrine: Endocrine: Reports fatigue Allergic/Immunologic: Allergic/Immunologic: Reports wheezing [facility] Medical History Hypoventilation associated with obesity COPD (chronic obstructive pulmonary disease) Morbid obesity with BMI of 50.0-59.9, adult Acute and chronic respiratory failure Pressure injury of deep tissue of buttock Pressure ulcer, stage II, skin breakdown Hypertrophic nonobstructive cardiomyopathy Presence of permanent cardiac pacemaker Acute on chronic respiratory failure with hypoxia and hypercapnia Acute and chronic respiratory failure with hypercapnia Metabolic encephalopathy Morbid obesity Acute and chronic respiratory failure with hypercapnia Urinary tract infection due to ESBL Klebsiella Respiratory failure Presence of permanent cardiac pacemaker Sick sinus syndrome Obesity hypoventilation syndrome Morbid obesity Heart block AV third degree PAD (peripheral artery disease) Diabetic ulcer of foot associated with diabetes mellitus due to underlying condition, with fat layer exposed Atelectasis of both lungs Respiratory failure with hypoxia and hypercapnia Hypoventilation associated with obesity syndrome SMILEY (obstructive sleep apnea) Morbid obesity Pulmonary embolism CHF (congestive heart failure) Clostridium difficile infection Hypertension Diabetes mellitus, type 2 Depression Arthritis Anemia Surgical History History of total knee replacement Social History Household Members: None Housing: Other Housing Other:: [facility]. Pt confused, unable to ascertain further Are you a primary skin care specialist to a significant other at home: No Do you presently have visiting nurse or other home services: Yes Unable to assess alcohol history related to: Unable to respond and Unknown Alcohol intake: never Patient Tobacco Use Status: Former Tobacco user Quit Date: 30years ago Tobacco use type: Cigarette Cigarette Packs Per Day: 20 Cigarettes Per Day: 400.0 Years Smoked: 20 e-Cigarette/Vaping Use: Never Used Second Hand Smoke Exposure: No Substance Use Type: Unknown Advance Directives: Yes Advance Directives on File: Yes Advance Directives Date on File: 01/07/23 service: No Current occupational status: disabled Meds Allergies Allergy/AdvReac Type Severity Reaction Status Date / Time latex Allergy Unknown Unknown Verified 04/21/23 13:40 adhesive tape AdvReac Unknown Unknown Verified 04/21/23 13:40 bupropion [From Wellbutrin] AdvReac Unknown Unknown Verified 04/21/23 13:40 ibuprofen AdvReac Unknown Unknown Verified 04/21/23 13:40 Active Medications: Current Medications Acetaminophen (Acetaminophen 325 Mg Tablet) 650 mg PO Q6H PRN PRN Reason: Pain, Mild (Pain Scale 1-3) Acetaminophen (Acetaminophen Supp 650 Mg Supp.Rect) 650 mg AK Q6H PRN PRN Reason: Pain, Mild (Pain Scale 1-3) Acetazolamide (Acetazolamide 250 Mg Tablet) 500 mg PO BID ROSSY Albuterol/Ipratropium (Albuterol/Iprat 2.5/0.5mg 3 Ml Ampul.Neb) 3 ml INHALE RQ4H WHILE AWAKE ROSSY Albuterol/Ipratropium (Albuterol/Iprat 2.5/0.5mg 3 Ml Ampul.Neb) 3 ml INHALE Q4H PRN PRN Reason: Wheezing Amlodipine Besylate (Amlodipine Besylate 5 Mg Tablet) 5 mg PO DAILY ROSSY; Protocol Aripiprazole (Aripiprazole 2 Mg Tablet) 2 mg PO DAILY [facility]SY Aspirin (Aspirin 81 Mg Tab.Chew) 81 mg PO DAILY [facility] Atorvastatin Calcium (Atorvastatin Calcium 80 Mg Tablet) 80 mg PO BEDTIME [facility] Bisacodyl (Bisacodyl 10 Mg Supp.Rect) 10 mg AK DAILY PRN PRN Reason: Constipation Bupropion HCl (Bupropion Hcl Xl 150 Mg Tab.Er.24h) 150 mg PO DAILY [facility] Bupropion HCl (Bupropion Hcl Xl 300 Mg Tab.Er.24h) 300 mg PO DAILY [facility] Cyanocobalamin (Cyanocobalamin (Vitamin B-12) 1,000 Mcg Tablet) 1,000 mcg PO DAILY [facility] Empagliflozin (Empagliflozin 10 Mg Tablet) 10 mg PO DAILY [facility] Enoxaparin Sodium (Enoxaparin Sodium 40 Mg/0.4 Ml Syringe) 40 mg SUBCUT Q12H [facility]SY Ferrous Sulfate (Ferrous Sulfate 324 Mg Tablet.Dr) 324 mg PO DAILY [facility] Furosemide (Furosemide 40 Mg Tablet) 40 mg PO DAILY ROSSY; Protocol Ceftriaxone Sodium 1 gm/ (Sodium Chloride) 50 mls @ 100 mls/hr IV ONCE ONE Stop: 07/01/23 23:03 Insulin Glargine (Insulin Glargine,Hum.Rec.Anlog 100 Unit/Ml 10 Ml Vial) 18 unit SUBCUT DAILY [facility] Losartan Potassium (Losartan Potassium 25 Mg Tablet) 25 mg PO DAILY ROSSY; Protocol Magnesium Hydroxide (Milk Of Magnesia 30 Ml Oral.Susp) 30 ml PO DAILY PRN PRN Reason: Constipation Megestrol Acetate (Megestrol Acetate 400 Mg/10 Ml Oral.Susp) 400 mg PO TID [facility] Melatonin (Melatonin 3 Mg Tablet) 6 mg PO BEDTIME PRN PRN Reason: Insomnia Melatonin (Melatonin 3 Mg Tablet) 3 mg PO BEDTIME [facility] Metformin HCl (Metformin Hcl 500 Mg Tablet) 500 mg PO BID [facility] Methylprednisolone Sodium Succinate (Methylprednisolone Sod Succ 40 Mg/Ml Vial) 40 mg IVPUSH Q12H [facility] Non-Formulary Medication (Fluticasone Propion-Salmeterol [Airduo Respiclick]) 1 inhalation INHALE BID [facility] Non-Formulary Medication (Olopatadine) 1 drop EYE-BOTH QSHIFT [facility] Ondansetron HCl (Ondansetron Hcl 4 Mg/2 Ml Vial) 4 mg IVPUSH Q8H PRN PRN Reason: Nausea and Vomiting Polyethylene Glycol (Polyethylene Glycol 3350 17 Gm Powd.Pack) 17 gm PO DAILY PRN PRN Reason: Constipation Potassium Chloride (Potassium Chloride Er 10 Meq Tablet.Er) 10 meq PO DAILY [facility] Senna (Sennosides 8.6 Mg Tablet) 17.2 mg PO BEDTIME [facility] Sertraline HCl (Sertraline Hcl 100 Mg Tablet) 200 mg PO DAILY [facility] Sodium Biphosphate/Sodium Phosphate (Sodium Phosphate,Barry-Dibasic 133 Ml Enema) 118 ml AK DAILY PRN PRN Reason: Constipation Sodium Chloride (0.9 % Sodium Chloride Flush 3 Ml Syringe) 3 ml IVFLUSH QSHIFT [facility] Tizanidine HCl (Tizanidine Hcl 4 Mg Tablet) 4 mg PO BEDTIME PRN PRN Reason: Muscle Spasm Vitamin D (Cholecalciferol (Vitamin D3) 25 Mcg Tablet) 25 mcg PO DAILY [facility] Home Medications Medication Instructions Recorded Confirmed Last Taken Type acetaminophen 325 mg tablet 650 mg PO Q4H PRN Fever Or Pain 11/18/21 07/01/23 Unknown History atorvastatin 80 mg tablet 80 mg PO BEDTIME 11/18/21 07/01/23 Unknown History ferrous sulfate 325 mg (65 mg 325 mg PO DAILY 11/18/21 07/01/23 Unknown History iron) tablet insulin lispro 100 unit/mL See Protocol subcut QIDACHS 11/18/21 07/01/23 Unknown History subcutaneous pen melatonin 3 mg tablet 3 mg PO BEDTIME 11/18/21 07/01/23 Unknown History polyethylene glycol 3350 17 gram 17 g PO DAILY PRN Constipation 11/18/21 07/01/23 Unknown History oral powder packet (Miralax) sennosides 8.6 mg tablet (senna) 17.2 mg PO BEDTIME 11/18/21 07/01/23 Unknown History sertraline 100 mg tablet 200 mg PO DAILY 11/18/21 07/01/23 Unknown History tizanidine 4 mg tablet 4 mg PO BEDTIME PRN Muscle Spasm 11/18/21 07/01/23 Unknown History aspirin 81 mg chewable tablet 81 mg PO DAILY 01/05/22 07/01/23 Unknown History bupropion HCl 300 mg 24 hr tablet, 300 mg PO DAILY 04/09/22 07/01/23 Unknown History extended release Lactobacillus rhamnosus GG 10 1 cap PO BID 10/09/22 07/01/23 Unknown History billion cell capsule (Culturelle) bupropion HCl 150 mg 24 hr tablet, 1 tab PO DAILY 10/09/22 07/01/23 Unknown History extended release ipratropium 0.5 mg-albuterol 3 mg 3 ml inhalation TID PRN Wheezing 10/09/22 07/01/23 Unknown History (2.5 mg base)/3 mL nebulization soln potassium chloride 10 mEq 10 meq PO DAILY 10/09/22 07/01/23 Unknown History tablet,extended release bisacodyl 10 mg rectal suppository 10 mg AK DAILY PRN Constipation 10/21/22 07/01/23 Unknown History fluticasone 113 mcg-salmeterol 14 1 inh inhalation BID 11/09/22 07/01/23 Unknown History mcg/actuation breath activated powdr (AirDuo RespiClick) magnesium hydroxide 400 mg/5 mL 30 ml PO DAILY PRN Constipation 11/09/22 07/01/23 Unknown History oral suspension (Milk of Magnesia) sodium phosphates 19 gram-7 118 ml AK DAILY PRN Constipation 11/09/22 07/01/23 Unknown History gram/118 mL enema (Fleet Enema) metformin 500 mg tablet 500 mg PO BID 12/27/22 07/01/23 Unknown History semaglutide 0.25 mg or 0.5 mg (2 0.5 mg subcut WE 12/27/22 07/01/23 Unknown History mg/3 mL) subcutaneous pen injector (Ozempic) aripiprazole 2 mg tablet 2 mg PO DAILY 01/12/23 07/01/23 Unknown History cholecalciferol (vitamin D3) 25 25 mcg PO DAILY 04/04/23 07/01/23 Unknown History mcg (1,000 unit) tablet insulin glargine 100 unit/mL 18 unit subcut DAILY 04/04/23 07/01/23 Unknown History subcutaneous solution (Lantus U-100 Insulin) losartan 25 mg tablet 25 mg PO DAILY 04/04/23 07/01/23 Unknown History megestrol 400 mg/10 mL (40 mg/mL) 400 mg PO TID 04/04/23 07/01/23 Unknown History oral suspension olopatadine 0.2 % eye drops 1 drp ophthalmic (eye) QSHIFT 04/04/23 07/01/23 Unknown History cyanocobalamin (vitamin B-12) 1,000 mcg PO DAILY 04/21/23 07/01/23 Unknown History 1,000 mcg capsule Physical Exam 2 Vital Signs and Narrative: Vital Signs: Last Vital Signs Temp 98.7 F 07/01/23 21:52 Pulse 89 07/01/23 22:00 Resp 20 07/01/23 22:00 BP 124/65 07/01/23 21:52 Pulse Ox 93 07/01/23 21:52 O2 Del Method CPAP 07/01/23 21:52 FiO2 30 07/01/23 21:52 Oxygen Flow Rate 4 07/01/23 20:34 BMI result Body Mass Index 60.0 Middle-aged female lying in bed in mild distress on supplemental oxygen Neck supple, no JVD Regular rate and rhythm, distant heart sounds Bilateral wheezing Abdomen soft nontender, no guarding, no rigidity Patient is lethargic and awakens to verbal stimulus, oriented to place and time ; no focal motor deficit Psych: Drowsy Bilateral nonpitting edema Results Labs 07/01/23 20:30 07/01/23 20:30 Labs: Laboratory Results - last 24 hr 07/01/23 07/01/23 07/01/23 20:30 20:34 20:36 MCV 99.8 H MCH 28.2 MCHC 28.3 L RDW 15.1 Plt Count 233 MPV 10.7 Immature Gran % (Auto) 0.8 H Neut % (Auto) 80.7 H Lymph % (Auto) 9.2 L Barry % (Auto) 7.2 Eos % (Auto) 1.6 Baso % (Auto) 0.5 Lymph # (Auto) 0.6 L Barry # (Auto) 0.5 Eos # (Auto) 0.1 Baso # (Auto) 0.0 Abs Immat Gran (auto) 0.05 H Absolute Neuts (auto) 5.2 Absolute Nucleated RBC 0.030 H Nucleated RBC % (auto) 0.5 H PT 11.3 INR 0.9 VBG pH 7.38 VBG pCO2 64 VBG pO2 59 VBG HCO3 38 H VBG O2 Saturation 90.0 VBG Base Excess 10.7 Anion Gap 18 Estim Creat Clear Calc 83.0 Estimated GFR 57 Random Glucose 268 H Lactic Acid 1.0 Calcium 9.4 Total Bilirubin 0.3 AST 14 ALT 11 Alkaline Phosphatase 72 B-Natriuretic Peptide 32 Total Protein 7.6 Albumin 3.8 Urine Color Urine Appearance Urine pH Ur Specific [place] Urine Protein Urine Glucose (UA) Urine Ketones Urine Blood Urine Nitrite Ur Leukocyte Esterase Urine RBC Urine WBC Ur Squamous Epith Cells Urine Bacteria Hyaline Casts COVID-19 (LIS) Negative COVID-19 Clin Com See Note Influenza Type A (CHUNG) Negative Influenza Type B (CHUNG) Negative Influenza A & B Note See Note 07/01/23 21:55 MCV MCH MCHC RDW Plt Count MPV Immature Gran % (Auto) Neut % (Auto) Lymph % (Auto) Barry % (Auto) Eos % (Auto) Baso % (Auto) Lymph # (Auto) Barry # (Auto) Eos # (Auto) Baso # (Auto) Abs Immat Gran (auto) Absolute Neuts (auto) Absolute Nucleated RBC Nucleated RBC % (auto) PT INR VBG pH VBG pCO2 VBG pO2 VBG HCO3 VBG O2 Saturation VBG Base Excess Anion Gap Estim Creat Clear Calc Estimated GFR Random Glucose Lactic Acid Calcium Total Bilirubin AST ALT Alkaline Phosphatase B-Natriuretic Peptide Total Protein Albumin Urine Color Yellow Urine Appearance Clear Urine pH 5.0 Ur Specific [place] 1.025 Urine Protein Negative Urine Glucose (UA) >=1000 H Urine Ketones Negative Urine Blood Moderate (2+) H Urine Nitrite Positive H Ur Leukocyte Esterase Small (1+) H Urine RBC 11-20 H Urine WBC >50 H Ur Squamous Epith Cells 0-2 Urine Bacteria 4+ Hyaline Casts 0-2 COVID-19 (LIS) COVID-19 Clin Com Influenza Type A (CHUNG) Influenza Type B (CHUNG) Influenza A & B Note Imaging Radiologist's Impressions: Impressions Chest X-Ray 07/01/23 21:53 IMPRESSION: The lung volumes limits evaluation. Diffuse increased markings probably chronic and/or technical. No definitive evidence for active cardiopulmonary disease. Assessment and Plan (1) Acute hypercapnic respiratory failure: Status: Acute (2) Urinary tract infection: Status: Acute Plan This is a 62-year-old female with pertinent history of chronic hypoxemic hypercarbic respiratory failure due to COPD and OHS on 2-3 L supplemental oxygen at baseline and home BiPAP, congestive heart failure with preserved ejection fraction, mood disorder, mixed hyperlipidemia, insulin-dependent diabetes mellitus, essential hypertension who was sent to the emergency department for evaluation of hypoxemia. #. Acute on chronic hypoxemic hypercarbic respiratory failure due to acute exacerbation of COPD. Will admit patient and initiate systemic steroids. Scheduled and p.reber Hammer. Counseled extensively regarding use of BiPAP at bedtime. Continue home inhalers #. Acute UTI: noted previous urine culture with ESBL. Initiating IV meropenem. Follow urine culture. No sepsis #. Insulin-dependent diabetes mellitus with hyperglycemia. Initiating Accu- Cheks with sliding scale insulin. Continue home basal regimen #. Morbid obesity. Weight loss encouraged. Counseled regarding diet #. Chronic decubitus ulcer. Wound care #. Congestive heart failure with preserved ejection fraction. Continue Lasix #. Essential hypertension. Continue home antihypertensives #. Mood disorder. Continue home mood stabilizers DVT prophylaxis: Lovenox Code status: DNI. Attempt resuscitation as per MOLST Admit as inpatient and will require two night minimum hospital stay for supplemental oxygen and IV steroids Time Spent With Patient Time: Total time managing care of this patient today ____ minutes. Quality Stroke Does the patient have a stroke diagnosis?: No VTE Prior VTE?: No VTE Risk Level:: Medical - moderate - high VTE Device Contraindication: Treatment Not Indicated VTE Drug Contraindication: N/A - Med Ordered
[2023-07-01] MEDS: Enoxaparin Sodium 40 MG/0.4 ML SYRINGE SUBCUT (23:01)
[2023-07-01] MEDS: LORazepam 2 MG/ML VIAL 1 MG IVPUSH (23:23)
[2023-07-01] MEDS: 0.9 % Sodium Chloride Flush 3 ML SYRINGE IVFLUSH (23:38)
--- NOTE | 2023-07-01 23:50 | PC.NURSE ---
pt repeatedly self removing bipap. dr bolivar made aware pt medicated according to marleni with ativan ivp 1mg to facility bipap compliance and maintain spo2
[2023-07-02] VITALS (34 sets, daily range): BP systolic 90–161; BP diastolic 45–90; PULSE 70–107; RESP 13–37; TEMP 36.7–38.1; O2SAT 83–99
--- NOTE | 2023-07-02 00:12 | PC.NURSE ---
this rn contacted dr bolivar and rt to bedside pt continues to self remove bipap mask. pt not redirectable. spo2 78-86 dr bolivar and rt aware. bipap fio2 changed to 30%- mask adjusted
[2023-07-02] MEDS: OLANZapine 10 MG VIAL IM (00:31)
--- NOTE | 2023-07-02 00:36 | PC.NURSE ---
pt medicated according to mar per dr bolivar order with zyprexa im. 10mg zyprexa given per provider to facilitate compliance with bipap treatment.
[2023-07-02] MEDS: Furosemide 40 MG/4 ML VIAL IVPUSH (01:01)
--- NOTE | 2023-07-02 02:30 | PC.NURSE ---
this rn and additional rn assisted pt to boost up in bed pt repositioned. pillow placed under L hip. lights dimmed. bipap in place at this time
--- NOTE | 2023-07-02 02:58 | PC.NURSE ---
clarence reynoso called from [facility] for update on pt status.
--- NOTE | 2023-07-02 06:07 | PC.NURSE ---
this rn, additional rn, and registered dietitian changed pt bed linens. pt periwick appeared to be dislodged, pt also incontinent of stool. barrier cream placed on pt bottom. nyastatin powder placed on bilateral groin. periwick replaced. pt provided with pillows under bilateral arms. pt boosted up in bed. lights dimmed. rectal temp 100.5 dr bolivar made aware
[2023-07-02 06:09] LABS: Basophils Percent Auto 0.4 % (0-2); Hematocrit 44.8 % (37.0-47.0); Hemoglobin 12.7 g/dl (12.0-16.0); Imm Gran Abs Auto 0.06 X10*3/uL (0.00-0.03); Imm Gran Pct Auto 1.1 % (0.0-0.4); Lymphocytes Absolute Auto 0.3 X10*3/uL (1.2-4.9); Lymphocytes Percent Auto 5.4 % (20-40); MANUAL DIFF FLAG SCAN; Mean Corpuscular HGB Conc 28.3 g/dl (31.0-35.0); Mean Corpuscular Hemoglobin 27.7 pg (27.0-33.0); Mean Corpuscular Volume 97.6 fL (80.0-98.0); Mean Platelet Volume 10.5 fL (9.4-12.3); Monocytes Absolute Auto 0.1 X10*3/uL (0.1-1.2); Monocytes Percent Auto 1.3 % (2-11); NRBC Pct Auto 0.6 /100WBC (0.0-0.2); Neutrophils Absolute Auto 4.9 x10*3/uL (2.0-8.3); Neutrophils Percent Auto 91.8 % (45-73); Platelet Count 224 X10*3/uL (160-400); Red Blood Count 4.59 X10*6/uL (4.20-5.50); Red Cell Distribution Width 15.2 % (11.0-16.0); SCAN SMEAR FLAG 1; White Blood Count 5.3 X10*3/uL (4.8-10.8)
[2023-07-02 06:34] LABS: SLIDE REVIEW VERIFIED
[2023-07-02 06:37] LABS: Anion Gap 17 (12-20); Blood Urea Nitrogen 22 mg/dL (9-16); Calcium 9.6 mg/dL (8.4-10.2); Carbon Dioxide 32 mmol/L (22-29); Chloride 99 mmol/L (96-108); Creatinine Clr Calc Pharmacy 81.4; Estimated Glomerular Filt Rate 56; Glucose Random 294 mg/dL (60-115); Potassium 4.2 mmol/L (3.3-5.1); Sodium 144 mmol/L (135-145)
[2023-07-02] MEDS: Albuterol/Iprat 2.5/0.5MG 3 ML AMPUL.NEB INHALE ×3 (07:39→21:14)
--- NOTE | 2023-07-02 08:40 | MHC.CM.PN ---
CM MET WITH PT WHO [facility] PT USES A WHEEL CHAIR FOR MOBILITY SHE HAS A HCP ON FILE PCP: [facility] DELIVERED DCP: RETURN TO [facility] VIA BLS
[2023-07-02] MEDS: metFORMIN HCl 500 MG TABLET PO (08:52)
[2023-07-02] MEDS: Cholecalciferol (Vitamin D3) 25 MCG TABLET PO (08:52)
[2023-07-02] MEDS: Potassium Chloride ER 10 MEQ TABLET.ER PO (08:53)
[2023-07-02] MEDS: Ferrous Sulfate 324 MG TABLET.DR PO (08:53)
[2023-07-02] MEDS: buPROPion HCl XL 150 MG TAB.ER.24H PO (08:53)
[2023-07-02] MEDS: Cyanocobalamin (Vitamin B-12) 1,000 MCG TABLET 1000 MCG PO (08:53)
[2023-07-02] MEDS: amLODIPine Besylate 5 MG TABLET PO (08:54)
[2023-07-02] MEDS: Losartan Potassium 25 MG TABLET PO (08:54)
[2023-07-02] MEDS: Furosemide 40 MG TABLET PO (08:54)
[2023-07-02] MEDS: Insulin Glargine,Hum.rec.anlog 100 UNIT/ML 10 ML VIAL 18 UNIT SUBCUT (08:55)
[2023-07-02] MEDS: Aspirin 81 MG TAB.CHEW PO (08:55)
[2023-07-02] MEDS: methylPREDNISolone Sod Succ 40 MG/ML VIAL IVPUSH (08:57)
[2023-07-02] MEDS: Sertraline HCL 100 MG TABLET 200 MG PO (09:03)
[2023-07-02] MEDS: buPROPion HCl XL 300 MG TAB.ER.24H PO (09:03)
[2023-07-02] MEDS: ARIPiprazole 2 MG TABLET PO (09:03)
--- NOTE | 2023-07-02 09:50 | PC.NURSE ---
med req'd rx w pharm
[2023-07-02] MEDS: Empagliflozin 10 MG TABLET PO (10:57)
[2023-07-02] MEDS: acetaZOLAMIDE 250 MG TABLET 500 MG PO (10:57)
[2023-07-02] MEDS: Megestrol Acetate 400 MG/10 ML ORAL.SUSP PO (10:57)
--- NOTE | 2023-07-02 11:02 | PC.NURSE ---
Addendum entered by Viola Allan 07/02/23 11:53: md white also aware pt confused situationally/to time. states aware Original Note: provider cindy notified desat'd to 77% on RA after she took her oxymask off - she is on 5L on it now sat 88-92%. RT just saw her and pt stable, talks full sentences. boosted for comfort. per md white pt not on contact precautions despite order in computer
--- NOTE | 2023-07-02 11:52 | PC.NURSE ---
spoke w family on phone. family reports pt has confusion when similar situations with sob occurs.
[2023-07-02 12:04] LABS: Glucose, Whole Blood 304 mg/dL (60-115)
[2023-07-02 12:05] LABS: VBG Base Excess 9.2 mmol/L; VBG HCO3 38 mmol/L (22-26); VBG pCO2 76 mmHg; VBG pH 7.31 (7.32-7.43); VBG pO2 136 mmHg
[2023-07-02 12:06] LABS: Venous Blood Gas Refer to POC result
--- NOTE | 2023-07-02 12:33 | P.CONPL_ITS ---
History of Present Illness History of Present Illness Consult date: 07/02/23 Requesting physician: Maximo Barrientos Reason for consult: other (RESPIRATORY FAILURE) Chief complaint: Dyspnea Narrative: THIS 62 YEARS OLD FEMALE WITH SUPER MORBID OBESITY, COPD, CHRONIC RESPIRATORY FAILURE, CONGESTIVE HEART FAILURE, IS A KNOWN CASE OF SEVERE CHRONIC RESPIRATORY FAILURE, REQUIRING USE OF BIPAP AT NIGHT. LATELY SHE HAS NOT BEEN USING THE BIPAP, DUE TO MASK ISSUES AND BASICALLY DUE TO HER NONCOMPLIANCE. SHE HAS BEEN ADMITTED FREQUENTLY WITH ACUTE ON CHRONIC RESPIRATORY FAILURE, LAST. ADMISSION BEING JUST ABOUT A MONTH SHE IS IN A REHAB FACILITY, BUT STILL THE USE OF BIPAP CANNOT BE ENFORCED . SHE DOES USE OXYGEN. 3-4 L/MINUTE CONTINUOUSLY SHE IS REFERRED HERE DUE TO CHANGE IN MENTAL STATUS AND INCREASED SHORTNESS OF BREATH. THERE IS NO EVIDENCE OF ANY RECENT RESPIRATORY INFECTION, FOR USING ANY NARCOTICS. LENGTHY DETAILS ARE PRESENT IN HER PREVIOUS ADMISSION RECORDS. Review of Systems 2 Review of Systems: Yes Unobtainable due to mental status PMFSH Past Medical History Medical History (Updated 07/02/23 @ 12:46 by Daja Mays MD) Acute and chronic respiratory failure with hypercapnia Morbid obesity Obesity hypoventilation syndrome Hypoventilation associated with obesity COPD (chronic obstructive pulmonary disease) Morbid obesity with BMI of 50.0-59.9, adult Acute and chronic respiratory failure Pressure injury of deep tissue of buttock Pressure ulcer, stage II, skin breakdown Hypertrophic nonobstructive cardiomyopathy Presence of permanent cardiac pacemaker Acute on chronic respiratory failure with hypoxia and hypercapnia Metabolic encephalopathy Acute and chronic respiratory failure with hypercapnia Urinary tract infection due to ESBL Klebsiella Respiratory failure Presence of permanent cardiac pacemaker Sick sinus syndrome Morbid obesity Heart block AV third degree PAD (peripheral artery disease) Diabetic ulcer of foot associated with diabetes mellitus due to underlying condition, with fat layer exposed Atelectasis of both lungs Respiratory failure with hypoxia and hypercapnia Hypoventilation associated with obesity syndrome SMILEY (obstructive sleep apnea) Morbid obesity Pulmonary embolism CHF (congestive heart failure) Clostridium difficile infection Hypertension Diabetes mellitus, type 2 Depression Arthritis Anemia Surgical History Surgical History History of total knee replacement Social History Social History Household Members: None [facility] confused, unable to ascertain further Are you a primary director of home care hospice to a significant other at home: No Do you presently have visiting nurse or other home services: Yes Unable to assess alcohol history related to: Unable to respond and Unknown Alcohol intake: never Patient Tobacco Use Status: Former Tobacco user Quit Date: 30years ago Tobacco use type: Cigarette Cigarette Packs Per Day: 20 Cigarettes Per Day: 400.0 Years Smoked: 20 Smoked in Last 30 Days: No e-Cigarette/Vaping Use: Never Used Second Hand Smoke Exposure: No Use of substances other than those prescribed or required for medical reasons: No Substance Use Type: Unknown Advance Directives: Yes Advance Directives on File: Yes Advance Directives Date on File: 01/07/23 Patient : No service: No Current occupational status: disabled Meds Allergies Allergy/AdvReac Type Severity Reaction Status Date / Time latex Allergy Unknown Unknown Verified 04/21/23 13:40 adhesive tape AdvReac Unknown Unknown Verified 04/21/23 13:40 bupropion [From Wellbutrin] AdvReac Unknown Unknown Verified 04/21/23 13:40 ibuprofen AdvReac Unknown Unknown Verified 04/21/23 13:40 Active Medications: Current Medications Acetaminophen (Acetaminophen 325 Mg Tablet) 650 mg PO Q6H PRN PRN Reason: Pain, Mild (Pain Scale 1-3) Acetaminophen (Acetaminophen Supp 650 Mg Supp.Rect) 650 mg AR Q6H PRN PRN Reason: Pain, Mild (Pain Scale 1-3) Acetazolamide (Acetazolamide 250 Mg Tablet) 500 mg PO BID [facility] Last Admin: 07/02/23 10:57 Dose: 500 mg Albuterol/Ipratropium (Albuterol/Iprat 2.5/0.5mg 3 Ml Ampul.Neb) 3 ml INHALE RQ4H WHILE AWAKE [facility] Last Admin: 07/02/23 10:43 Dose: 3 ml Albuterol/Ipratropium (Albuterol/Iprat 2.5/0.5mg 3 Ml Ampul.Neb) 3 ml INHALE Q4H PRN PRN Reason: Wheezing Amlodipine Besylate (Amlodipine Besylate 5 Mg Tablet) 5 mg PO DAILY [facility]; Protocol Last Admin: 07/02/23 08:54 Dose: 5 mg Aripiprazole (Aripiprazole 2 Mg Tablet) 2 mg PO DAILY [facility] Last Admin: 07/02/23 09:03 Dose: 2 mg Aspirin (Aspirin 81 Mg Tab.Chew) 81 mg PO DAILY [facility] Last Admin: 07/02/23 08:55 Dose: 81 mg Atorvastatin Calcium (Atorvastatin Calcium 80 Mg Tablet) 80 mg PO BEDTIME [facility] Bisacodyl (Bisacodyl 10 Mg Supp.Rect) 10 mg AR DAILY PRN PRN Reason: Constipation Bupropion HCl (Bupropion Hcl Xl 150 Mg Tab.Er.24h) 150 mg PO DAILY [facility] Last Admin: 07/02/23 08:53 Dose: 150 mg Bupropion HCl (Bupropion Hcl Xl 300 Mg Tab.Er.24h) 300 mg PO DAILY [facility] Last Admin: 07/02/23 09:03 Dose: 300 mg Cyanocobalamin (Cyanocobalamin (Vitamin B-12) 1,000 Mcg Tablet) 1,000 mcg PO DAILY [facility] Last Admin: 07/02/23 08:53 Dose: 1,000 mcg Dextrose (Dextrose 50 % 25 Gm/50 Ml Syringe) 25 gm IVPUSH Q15M PRN; Protocol PRN Reason: per Hypoglycemia Standing Ord. Empagliflozin (Empagliflozin 10 Mg Tablet) 10 mg PO DAILY [facility] Last Admin: 07/02/23 10:57 Dose: 10 mg Enoxaparin Sodium (Enoxaparin Sodium 40 Mg/0.4 Ml Syringe) 40 mg SUBCUT Q12H [facility] Last Admin: 07/01/23 23:01 Dose: 40 mg Ferrous Sulfate (Ferrous Sulfate 324 Mg Tablet.Dr) 324 mg PO DAILY [facility] Last Admin: 07/02/23 08:53 Dose: 324 mg Fluticasone/Vilanterol (Fluticasone/Vilanterol 100/25 Blst.W.Dev) 1 puff INHALE DAILY [facility] Last Admin: 07/02/23 07:40 Dose: Not Given Furosemide (Furosemide 40 Mg Tablet) 40 mg PO DAILY [facility]; Protocol Last Admin: 07/02/23 08:54 Dose: 40 mg Glucose (Glucose Gel 15 Gm Gel..Gram.) 15 gm PO Q15M PRN; Protocol PRN Reason: per Hypoglycemia Standing Ord. Meropenem 1 gm/ Sodium (Chloride) 100 mls @ 200 mls/hr IV Q8H [facility] Last Infusion: 07/02/23 08:40 Dose: Infused Insulin Glargine (Insulin Glargine,Hum.Rec.Anlog 100 Unit/Ml 10 Ml Vial) 18 unit SUBCUT DAILY [facility] Last Admin: 07/02/23 08:55 Dose: 18 unit Insulin Human Lispro (Insulin Lispro 100 Unit/Ml 3 Ml Vial) 0 unit SUBCUT QIDACHS [facility]; Protocol Losartan Potassium (Losartan Potassium 25 Mg Tablet) 25 mg PO DAILY [facility]; Protocol Last Admin: 07/02/23 08:54 Dose: 25 mg Magnesium Hydroxide (Milk Of Magnesia 30 Ml Oral.Susp) 30 ml PO DAILY PRN PRN Reason: Constipation Megestrol Acetate (Megestrol Acetate 400 Mg/10 Ml Oral.Susp) 400 mg PO TID [facility] Last Admin: 07/02/23 10:57 Dose: 400 mg Melatonin (Melatonin 3 Mg Tablet) 6 mg PO BEDTIME PRN PRN Reason: Insomnia Melatonin (Melatonin 3 Mg Tablet) 3 mg PO BEDTIME [facility] Metformin HCl (Metformin Hcl 500 Mg Tablet) 500 mg PO BID [facility] Last Admin: 07/02/23 08:52 Dose: 500 mg Methylprednisolone Sodium Succinate (Methylprednisolone Sod Succ 40 Mg/Ml Vial) 40 mg IVPUSH Q12H [facility] Last Admin: 07/02/23 08:57 Dose: 40 mg Non-Formulary Medication (Olopatadine) [facility] Ondansetron HCl (Ondansetron Hcl 4 Mg/2 Ml Vial) 4 mg IVPUSH Q8H PRN PRN Reason: Nausea and Vomiting Polyethylene Glycol (Polyethylene Glycol 3350 17 Gm Powd.Pack) 17 gm PO DAILY PRN PRN Reason: Constipation Potassium Chloride (Potassium Chloride Er 10 Meq Tablet.Er) 10 meq PO DAILY [facility] Last Admin: 07/02/23 08:53 Dose: 10 meq Senna (Sennosides 8.6 Mg Tablet) 17.2 mg PO BEDTIME [facility] Sertraline HCl (Sertraline Hcl 100 Mg Tablet) 200 mg PO DAILY [facility] Last Admin: 07/02/23 09:03 Dose: 200 mg Sodium Biphosphate/Sodium Phosphate (Sodium Phosphate,Sargent-Dibasic 133 Ml Enema) 118 ml AR DAILY PRN PRN Reason: Constipation Sodium Chloride (0.9 % Sodium Chloride Flush 3 Ml Syringe) 3 ml IVFLUSH QSHIFT [facility] Last Admin: 07/02/23 07:47 Dose: Not Given Tizanidine HCl (Tizanidine Hcl 4 Mg Tablet) 4 mg PO BEDTIME PRN PRN Reason: Muscle Spasm Vitamin D (Cholecalciferol (Vitamin D3) 25 Mcg Tablet) 25 mcg PO DAILY [facility] Last Admin: 07/02/23 08:52 Dose: 25 mcg Home Medications Medication Instructions Recorded Confirmed Last Taken Type acetaminophen 325 mg tablet 650 mg PO Q4H PRN Fever Or Pain 11/18/21 07/01/23 Unknown History atorvastatin 80 mg tablet 80 mg PO BEDTIME 11/18/21 07/01/23 Unknown History ferrous sulfate 325 mg (65 mg 325 mg PO DAILY 11/18/21 07/01/23 Unknown History iron) tablet insulin lispro 100 unit/mL See Protocol subcut QIDACHS 11/18/21 07/01/23 Unknown History subcutaneous pen melatonin 3 mg tablet 3 mg PO BEDTIME 11/18/21 07/01/23 Unknown History polyethylene glycol 3350 17 gram 17 g PO DAILY PRN Constipation 11/18/21 07/01/23 Unknown History oral powder packet (Miralax) sennosides 8.6 mg tablet (senna) 17.2 mg PO BEDTIME 11/18/21 07/01/23 Unknown History sertraline 100 mg tablet 200 mg PO DAILY 11/18/21 07/01/23 Unknown History tizanidine 4 mg tablet 4 mg PO BEDTIME PRN Muscle Spasm 11/18/21 07/01/23 Unknown History aspirin 81 mg chewable tablet 81 mg PO DAILY 01/05/22 07/01/23 Unknown History bupropion HCl 300 mg 24 hr tablet, 300 mg PO DAILY 04/09/22 07/01/23 Unknown History extended release Lactobacillus rhamnosus GG 10 1 cap PO BID 10/09/22 07/01/23 Unknown History billion cell capsule (Culturelle) bupropion HCl 150 mg 24 hr tablet, 1 tab PO DAILY 10/09/22 07/01/23 Unknown History extended release ipratropium 0.5 mg-albuterol 3 mg 3 ml inhalation TID PRN Wheezing 10/09/22 07/01/23 Unknown History (2.5 mg base)/3 mL nebulization soln potassium chloride 10 mEq 10 meq PO DAILY 10/09/22 07/01/23 Unknown History tablet,extended release bisacodyl 10 mg rectal suppository 10 mg AR DAILY PRN Constipation 10/21/22 07/01/23 Unknown History fluticasone 113 mcg-salmeterol 14 1 inh inhalation BID 11/09/22 07/01/23 Unknown History mcg/actuation breath activated powdr (AirDuo RespiClick) magnesium hydroxide 400 mg/5 mL 30 ml PO DAILY PRN Constipation 11/09/22 07/01/23 Unknown History oral suspension (Milk of Magnesia) sodium phosphates 19 gram-7 118 ml AR DAILY PRN Constipation 11/09/22 07/01/23 Unknown History gram/118 mL enema (Fleet Enema) metformin 500 mg tablet 500 mg PO BID 12/27/22 07/01/23 Unknown History semaglutide 0.25 mg or 0.5 mg (2 0.5 mg subcut WE 12/27/22 07/01/23 Unknown History mg/3 mL) subcutaneous pen injector (Ozempic) aripiprazole 2 mg tablet 2 mg PO DAILY 01/12/23 07/01/23 Unknown History cholecalciferol (vitamin D3) 25 25 mcg PO DAILY 04/04/23 07/01/23 Unknown History mcg (1,000 unit) tablet insulin glargine 100 unit/mL 18 unit subcut DAILY 04/04/23 07/01/23 Unknown History subcutaneous solution (Lantus U-100 Insulin) losartan 25 mg tablet 25 mg PO DAILY 04/04/23 07/01/23 Unknown History megestrol 400 mg/10 mL (40 mg/mL) 400 mg PO TID 04/04/23 07/01/23 Unknown History oral suspension olopatadine 0.2 % eye drops 1 drp ophthalmic (eye) QSHIFT 04/04/23 07/01/23 Unknown History cyanocobalamin (vitamin B-12) 1,000 mcg PO DAILY 04/21/23 07/01/23 Unknown History 1,000 mcg capsule Physical Exam 2 Vital Signs: Vital Signs: Last Vital Signs Temp 98.1 F 07/02/23 11:14 Pulse 105 H 07/02/23 11:14 Resp 28 H 07/02/23 11:14 BP 161/69 H 07/02/23 11:14 Pulse Ox 88 L 07/02/23 11:14 O2 Del Method Oxymask 07/02/23 11:14 O2 Flow Rate 5 07/02/23 11:14 FiO2 30 07/02/23 01:31 Oxygen Flow Rate 4 07/01/23 20:34 BMI result Body Mass Index 60.0 THE PATIENT IS MORBIDLY OBESE A COMPLYING THE WHOLE BED. SHE IS PARTIALLY CONFUSED AT THIS TIME, AND TACHYPNEAC RESPIRATORY RATES 30/MT SHE IS OXY MASK 5 L/MINUTE O2 SAT IS 88% OROPHARYNX CANNOT BE EXAMINED. THE NECK IS VERY. OBESE AND SHORT CHEST: PERCUSSION NOTE IS NOT PERCEPTIBLE BREATH SOUNDS ARE VERY DISTANT AND ESPECIALLY DECREASED OVER THE BASILAR AREAS. I DO NOT HEAR ANY CREPS OR WHEEZES. PMI NOT PALPABLE HEART SOUNDS ARE DISTANT NO OBVIOUS MURMURS. ABDOMEN IS MORBIDLY OBESE AND . PENDULOUS Results Laboratory Findings 07/02/23 05:19 07/02/23 05:19 ABG, PT/INR, D-dimer: PT/INR, D-dimer PT 11.3 SEC (11.1-13.3) 07/01/23 20:30 INR 0.9 (0.9-1.1) 07/01/23 20:30 Abnormal lab findings: Abnormal Labs 07/01/23 07/01/23 07/01/23 20:30 20:36 21:55 MCV 99.8 H MCHC 28.3 L Immature Gran % (Auto) 0.8 H Neut % (Auto) 80.7 H Lymph % (Auto) 9.2 L Sargent % (Auto) Lymph # (Auto) 0.6 L Abs Immat Gran (auto) 0.05 H Absolute Nucleated RBC 0.030 H Nucleated RBC % (auto) 0.5 H VBG pH VBG HCO3 38 H Carbon Dioxide 32 H BUN 19 H POC Glucose Random Glucose 268 H Urine Glucose (UA) >=1000 H Urine Blood Moderate (2+) H Urine Nitrite Positive H Ur Leukocyte Esterase Small (1+) H Urine RBC 11-20 H Urine WBC >50 H 07/02/23 07/02/23 07/02/23 05:19 12:00 12:01 MCV MCHC 28.3 L Immature Gran % (Auto) 1.1 H Neut % (Auto) 91.8 H Lymph % (Auto) 5.4 L Sargent % (Auto) 1.3 L Lymph # (Auto) 0.3 L Abs Immat Gran (auto) 0.06 H Absolute Nucleated RBC 0.030 H Nucleated RBC % (auto) 0.6 H VBG pH 7.31 L VBG HCO3 38 H Carbon Dioxide 32 H BUN 22 H POC Glucose 304 H Random Glucose 294 H Urine Glucose (UA) Urine Blood Urine Nitrite Ur Leukocyte Esterase Urine RBC Urine WBC ABGS: PH 7.31 PCO2 76, PO2 136 HCO3 38 ( GROSSLY ABNORMAL0 Diagnostic Findings Chest x-ray: report reviewed and image reviewed Assessment and Plan (1) Obesity hypoventilation syndrome: Status: Acute (2) Acute and chronic respiratory failure with hypercapnia: Status: Acute (3) Morbid obesity: Status: Acute Plan Thist super morbidly obese patient, has severe obesity related hypoventilation syndrome with chronic respiratory failure, She also has very severe restrictive pulmonary disorder , and probably not much of COPD. She has acute on chronic respiratory failure with severe hypercapnia and hypoxemia, and this is secondary to non usage of BiPAP. The mainstay treatment at this time would be BiPAP therapy. She should be started on BiPAP with pressure setting of 20/8 cm, with a fullface mask and should be kept on that .most of the time Because of her confusional state she may need to be. admitted to intensive care unit for a close watch Adjust the oxygen supplementation to keep her O2 sat just above 90%. Monitor with blood gases on a daily basis. May add DuoNeb updraft treatments q.6 hours around the clock and hold use of AirDuo at this time. Once she is fully alert, she has to be encouraged to do deep breathing exercises. There is no need to use Diamox at this time. Time Spent With Patient Time: Total time managing care of this patient today ____ minutes. Procedures Date of Service Date of Service: 07/02/23
[2023-07-02] MEDS: Enoxaparin Sodium 40 MG/0.4 ML SYRINGE SUBCUT ×2 (12:34→22:16)
[2023-07-02] MEDS: Insulin Lispro 100 UNIT/ML 3 ML VIAL SUBCUT ×2 (12:35→20:41)
--- NOTE | 2023-07-02 14:11 | PC.NURSE ---
attempt x1 for report. left message as rn on lunch per alumni secretary. icu md Le aware RT to attempt again to place on BiPAP per MD order.
[2023-07-02] MEDS: Albuterol Sulfate 5 MG, Albuterol/Iprat 2.5/0.5MG 3 ML 3 ML INHALE (14:22)
--- NOTE | 2023-07-02 14:23 | P.PNIM_ITS ---
Subjective Subjective Date of Service: 07/03/23 Interval History: copd excerebation Review of Systems awake but some what confused sob similar -unchnaged . no fever Physical Exam 2 Vital Signs: Vital Signs: Last Vital Signs Temp 98.7 F 07/02/23 12:44 Pulse 101 H 07/02/23 12:44 Resp 18 07/02/23 12:44 BP 149/69 H 07/02/23 12:44 Pulse Ox 92 07/02/23 12:44 O2 Del Method Oxymask 07/02/23 12:44 O2 Flow Rate 5 07/02/23 12:44 FiO2 30 07/02/23 01:31 Oxygen Flow Rate 4 07/01/23 20:34 BMI result Body Mass Index 60.0 Const: Other: Appearance: Alert.? Oriented X2, sob,feels tired. cvs: rrr, [id number]. res: clear to auscultation ,no rhonchii or wheezing abd: no rebound or guarding ,nt, bs present. ext pulses present , no cyanosis . neuro: axo3 , nonfocal. Objective Data Active Medications Acetaminophen (Acetaminophen 325 Mg Tablet) 650 mg PO Q6H PRN PRN Reason: Pain, Mild (Pain Scale 1-3) Acetaminophen (Acetaminophen Supp 650 Mg Supp.Rect) 650 mg MA Q6H PRN PRN Reason: Pain, Mild (Pain Scale 1-3) Albuterol/Ipratropium (Albuterol/Iprat 2.5/0.5mg 3 Ml Ampul.Neb) 3 ml INHALE RQ4H WHILE AWAKE [facility] Last Admin: 07/02/23 10:43 Dose: 3 ml Documented By: IVA Albuterol/Ipratropium (Albuterol/Iprat 2.5/0.5mg 3 Ml Ampul.Neb) 3 ml INHALE Q4H PRN PRN Reason: Wheezing Amlodipine Besylate (Amlodipine Besylate 5 Mg Tablet) 5 mg PO DAILY [facility]; Protocol Last Admin: 07/02/23 08:54 Dose: 5 mg Documented By: FORTUNATO Aripiprazole (Aripiprazole 2 Mg Tablet) 2 mg PO DAILY [facility] Last Admin: 07/02/23 09:03 Dose: 2 mg Documented By: FORTUNATO Aspirin (Aspirin 81 Mg Tab.Chew) 81 mg PO DAILY [facility] Last Admin: 07/02/23 08:55 Dose: 81 mg Documented By: FORTUNATO Atorvastatin Calcium (Atorvastatin Calcium 80 Mg Tablet) 80 mg PO BEDTIME [facility] Bisacodyl (Bisacodyl 10 Mg Supp.Rect) 10 mg MA DAILY PRN PRN Reason: Constipation Bupropion HCl (Bupropion Hcl Xl 150 Mg Tab.Er.24h) 150 mg PO DAILY [facility] Last Admin: 07/02/23 08:53 Dose: 150 mg Documented By: FORTUNATO Bupropion HCl (Bupropion Hcl Xl 300 Mg Tab.Er.24h) 300 mg PO DAILY [facility] Last Admin: 07/02/23 09:03 Dose: 300 mg Documented By: FORTUNATO Cyanocobalamin (Cyanocobalamin (Vitamin B-12) 1,000 Mcg Tablet) 1,000 mcg PO DAILY [facility] Last Admin: 07/02/23 08:53 Dose: 1,000 mcg Documented By: FORTUNATO Dextrose (Dextrose 50 % 25 Gm/50 Ml Syringe) 25 gm IVPUSH Q15M PRN; Protocol PRN Reason: per Hypoglycemia Standing Ord. Empagliflozin (Empagliflozin 10 Mg Tablet) 10 mg PO DAILY [facility] Last Admin: 07/02/23 10:57 Dose: 10 mg Documented By: JUAN ANTONIO Enoxaparin Sodium (Enoxaparin Sodium 40 Mg/0.4 Ml Syringe) 40 mg SUBCUT Q12H [facility] Last Admin: 07/02/23 12:34 Dose: 40 mg Documented By: JUAN ANTONIO Ferrous Sulfate (Ferrous Sulfate 324 Mg Tablet.) 324 mg PO DAILY [facility] Last Admin: 07/02/23 08:53 Dose: 324 mg Documented By: FORTUNATO Fluticasone/Vilanterol (Fluticasone/Vilanterol 100/25 Blst.W.Dev) 1 puff INHALE DAILY [facility] Last Admin: 07/02/23 07:40 Dose: Not Given Documented By: IVA Non-Admin Reason: Med Not Available Furosemide (Furosemide 20 Mg/2 Ml Vial) 20 mg IVPUSH DAILY [facility]; Protocol Glucose (Glucose Gel 15 Gm Gel..Gram.) 15 gm PO Q15M PRN; Protocol PRN Reason: per Hypoglycemia Standing Ord. Meropenem 1 gm/ Sodium (Chloride) 100 mls @ 200 mls/hr IV Q8H [facility] Last Infusion: 07/02/23 08:40 Dose: Infused Documented By: FORTUNATO Azithromycin 500 mg/ Sodium (Chloride) 250 mls @ 125 mls/hr IV Q24H [facility] Magnesium Sulfate (Magnesium Sulfate/H2o) 2 gm in 50 mls @ 25 mls/hr IV ONCE ONE Stop: 07/02/23 15:59 Insulin Glargine (Insulin Glargine,Hum.Rec.Anlog 100 Unit/Ml 10 Ml Vial) 18 unit SUBCUT DAILY [facility] Last Admin: 07/02/23 08:55 Dose: 18 unit Documented By: FORTUNATO Insulin Human Lispro (Insulin Lispro 100 Unit/Ml 3 Ml Vial) 0 unit SUBCUT QIDACHS [facility]; Protocol Last Admin: 07/02/23 12:35 Dose: 8 unit Documented By: JUAN ANTONIO Comments: md white aware poc 304- ordered to give sliding scale 8 u Losartan Potassium (Losartan Potassium 25 Mg Tablet) 25 mg PO DAILY [facility]; Protocol Last Admin: 07/02/23 08:54 Dose: 25 mg Documented By: FORTUNATO Magnesium Hydroxide (Milk Of Magnesia 30 Ml Oral.Susp) 30 ml PO DAILY PRN PRN Reason: Constipation Megestrol Acetate (Megestrol Acetate 400 Mg/10 Ml Oral.Susp) 400 mg PO TID [facility] Last Admin: 07/02/23 10:57 Dose: 400 mg Documented By: JUAN ANTONIO Melatonin (Melatonin 3 Mg Tablet) 6 mg PO BEDTIME PRN PRN Reason: Insomnia Melatonin (Melatonin 3 Mg Tablet) 3 mg PO BEDTIME [facility] Metformin HCl (Metformin Hcl 500 Mg Tablet) 500 mg PO BID [facility] Last Admin: 07/02/23 08:52 Dose: 500 mg Documented By: FORTUNATO Methylprednisolone Sodium Succinate (Methylprednisolone Sod Succ 40 Mg/Ml Vial) 40 mg IVPUSH Q12H [facility] Last Admin: 07/02/23 08:57 Dose: 40 mg Documented By: FORTUNATO Non-Formulary Medication (Olopatadine) 1 drop EYE-BOTH QSHIFT [facility] Ondansetron HCl (Ondansetron Hcl 4 Mg/2 Ml Vial) 4 mg IVPUSH Q8H PRN PRN Reason: Nausea and Vomiting Polyethylene Glycol (Polyethylene Glycol 3350 17 Gm Powd.Pack) 17 gm PO DAILY PRN PRN Reason: Constipation Potassium Chloride (Potassium Chloride Er 10 Meq Tablet.Er) 10 meq PO DAILY [facility] Last Admin: 07/02/23 08:53 Dose: 10 meq Documented By: FORTUNATO Senna (Sennosides 8.6 Mg Tablet) 17.2 mg PO BEDTIME [facility] Sertraline HCl (Sertraline Hcl 100 Mg Tablet) 200 mg PO DAILY [facility] Last Admin: 07/02/23 09:03 Dose: 200 mg Documented By: FORTUNATO Sodium Biphosphate/Sodium Phosphate (Sodium Phosphate,[place]-Dibasic 133 Ml Enema) 118 ml MA DAILY PRN PRN Reason: Constipation Sodium Chloride (0.9 % Sodium Chloride Flush 3 Ml Syringe) 3 ml IVFLUSH QSHIFT [facility] Last Admin: 07/02/23 07:47 Dose: Not Given Documented By: FORTUNATO Non-Admin Reason: Med Not Available Tizanidine HCl (Tizanidine Hcl 4 Mg Tablet) 4 mg PO BEDTIME PRN PRN Reason: Muscle Spasm Vitamin D (Cholecalciferol (Vitamin D3) 25 Mcg Tablet) 25 mcg PO DAILY [facility] Last Admin: 07/02/23 08:52 Dose: 25 mcg Documented By: FORTUNATO Labs 07/03/23 04:39 07/03/23 04:39 Labs: Laboratory Results - last 24 hr 07/01/23 07/01/23 07/01/23 20:30 20:34 20:36 MCV 99.8 H MCH 28.2 MCHC 28.3 L RDW 15.1 Plt Count 233 MPV 10.7 Immature Gran % (Auto) 0.8 H Neut % (Auto) 80.7 H Lymph % (Auto) 9.2 L [place] % (Auto) 7.2 Eos % (Auto) 1.6 Baso % (Auto) 0.5 Lymph # (Auto) 0.6 L [place] # (Auto) 0.5 Eos # (Auto) 0.1 Baso # (Auto) 0.0 Abs Immat Gran (auto) 0.05 H Absolute Neuts (auto) 5.2 Absolute Nucleated RBC 0.030 H Nucleated RBC % (auto) 0.5 H Smear Tech's Comments PT 11.3 INR 0.9 VBG pH 7.38 VBG pCO2 64 VBG pO2 59 VBG HCO3 38 H VBG O2 Saturation 90.0 VBG Base Excess 10.7 Anion Gap 18 Estim Creat Clear Calc 83.0 Estimated GFR 57 POC Glucose Random Glucose 268 H Lactic Acid 1.0 Calcium 9.4 Total Bilirubin 0.3 AST 14 ALT 11 Alkaline Phosphatase 72 B-Natriuretic Peptide 32 Total Protein 7.6 Albumin 3.8 Urine Color Urine Appearance Urine pH Ur Specific [place] Urine Protein Urine Glucose (UA) Urine Ketones Urine Blood Urine Nitrite Ur Leukocyte Esterase Urine RBC Urine WBC Ur Squamous Epith Cells Urine Bacteria Hyaline Casts COVID-19 (LIS) Negative COVID-19 Clin Com See Note Influenza Type A (CHUNG) Negative Influenza Type B (CHUNG) Negative Influenza A & B Note See Note 07/01/23 07/02/23 07/02/23 21:55 05:19 12:00 MCV 97.6 MCH 27.7 MCHC 28.3 L RDW 15.2 Plt Count 224 MPV 10.5 Immature Gran % (Auto) 1.1 H Neut % (Auto) 91.8 H Lymph % (Auto) 5.4 L [place] % (Auto) 1.3 L Eos % (Auto) 0.0 Baso % (Auto) 0.4 Lymph # (Auto) 0.3 L [place] # (Auto) 0.1 Eos # (Auto) 0.0 Baso # (Auto) 0.0 Abs Immat Gran (auto) 0.06 H Absolute Neuts (auto) 4.9 Absolute Nucleated RBC 0.030 H Nucleated RBC % (auto) 0.6 H Smear Tech's Comments VERIFIED PT INR VBG pH 7.31 L VBG pCO2 76 VBG pO2 136 VBG HCO3 38 H VBG O2 Saturation 99.0 VBG Base Excess 9.2 Anion Gap 17 Estim Creat Clear Calc 81.4 Estimated GFR 56 POC Glucose Random Glucose 294 H Lactic Acid Calcium 9.6 Total Bilirubin AST ALT Alkaline Phosphatase B-Natriuretic Peptide Total Protein Albumin Urine Color Yellow Urine Appearance Clear Urine pH 5.0 Ur Specific [place] 1.025 Urine Protein Negative Urine Glucose (UA) >=1000 H Urine Ketones Negative Urine Blood Moderate (2+) H Urine Nitrite Positive H Ur Leukocyte Esterase Small (1+) H Urine RBC 11-20 H Urine WBC >50 H Ur Squamous Epith Cells 0-2 Urine Bacteria 4+ Hyaline Casts 0-2 COVID-19 (LIS) COVID-19 Clin Com Influenza Type A (CHUNG) Influenza Type B (CHUNG) Influenza A & B Note 07/02/23 12:01 MCV MCH MCHC RDW Plt Count MPV Immature Gran % (Auto) Neut % (Auto) Lymph % (Auto) [place] % (Auto) Eos % (Auto) Baso % (Auto) Lymph # (Auto) [place] # (Auto) Eos # (Auto) Baso # (Auto) Abs Immat Gran (auto) Absolute Neuts (auto) Absolute Nucleated RBC Nucleated RBC % (auto) Smear Tech's Comments PT INR VBG pH VBG pCO2 VBG pO2 VBG HCO3 VBG O2 Saturation VBG Base Excess Anion Gap Estim Creat Clear Calc Estimated GFR POC Glucose 304 H Random Glucose Lactic Acid Calcium Total Bilirubin AST ALT Alkaline Phosphatase B-Natriuretic Peptide Total Protein Albumin Urine Color Urine Appearance Urine pH Ur Specific [place] Urine Protein Urine Glucose (UA) Urine Ketones Urine Blood Urine Nitrite Ur Leukocyte Esterase Urine RBC Urine WBC Ur Squamous Epith Cells Urine Bacteria Hyaline Casts COVID-19 (LIS) COVID-19 Clin Com Influenza Type A (CHUNG) Influenza Type B (CHUNG) Influenza A & B Note Microbiology Microbiology Results: Microbiology 07/01/23 Unknown Urine Culture - Preliminary Urine clean catch - Urine schmitt top Gram negative nataly Assessment and Plan (1) Acute and chronic respiratory failure with hypercapnia: Status: Acute Plan 62-year-old female with pertinent history of chronic hypoxemic hypercarbic respiratory failure due to COPD and OHS on 2-3 L supplemental oxygen at baseline and home BiPAP, congestive heart failure with preserved ejection fraction, mood disorder, mixed hyperlipidemia, insulin-dependent diabetes mellitus, essential hypertension who was sent to the emergency department for evaluation of hypoxemia. Acute on chronic hypoxemic hypercarbic respiratory failure due to acute exacerbation of COPD. sob mostly unchanged,getting tired vbg -7./130 continue systemic steroids,Scheduled and p.r.n. DuoNebs. seen by pulm-patient will benefit from continuous bipap. toxic metabolic encepahlopathy (multifactorial-hypercarbic,uti): continue supportive care with for underlying causes. ct head added . Acute UTI: noted previous urine culture with ESBL. Initiating IV meropenem. Follow urine culture. No sepsis Insulin-dependent diabetes mellitus with hyperglycemia. Initiating Accu-Cheks with sliding scale insulin. Continue home basal regimen Morbid obesity. Weight loss encouraged. Counseled regarding diet Chronic decubitus ulcer. Wound care Congestive heart failure with preserved ejection fraction. Continue Lasix Essential hypertension. Continue home antihypertensives Mood disorder. Continue home mood stabilizers DVT prophylaxis: Lovenox. Code status: DNI. Attempt resuscitation as per [facility]ST patient d/w Icu- will need benefit from continuous bipap for Acute on chronic hypoxemic hypercarbic respiratory failure due to acute exacerbation of COPD. Time Spent With Patient Time: Total time managing care of this patient today ____ minutes. Quality Stroke Does the patient have a stroke diagnosis?: No VTE Prior VTE?: No VTE Risk Level:: Medical - moderate - high VTE Device Contraindication: Treatment Not Indicated VTE Drug Contraindication: N/A - Med Ordered
--- NOTE | 2023-07-02 14:34 | PC.NURSE ---
pt changed rooms- rn was on phone giving report and stated to call icu. this rn called new floor/room nurse and rn unavailable- will call back.
--- NOTE | 2023-07-02 14:55 | MHC.EDTECH ---
patient turned and linens changed. resting comfortably.
--- NOTE | 2023-07-02 14:55 | PC.NURSE ---
RN/RT transporting pt to ICU. en route
--- NOTE | 2023-07-02 15:45 | P.CNID_ITS ---
History of Present Illness Data of Consult Service Date: 07/02/23 Requesting physician: Maximo Barrientos Primary Care Provider: Tita Bal MD HPI Reason for consult: sepsis She presents from SNF on 07/01 per EMS with hypoxia,refusing CPAP 4 liters. She has temperature 100.5 and pulse 105. There is no reported diarrhea or rash She has ARF. She had prior Klebsiella pneumonia ESBL on 01/20/2023. Review of Systems 2 Review of Systems: Yes Unobtainable due to mental condition [facility] Past Medical History Medical History (Updated 07/02/23 @ 15:49 by Odalis Holley MD) Sepsis Acute and chronic respiratory failure with hypercapnia Morbid obesity Obesity hypoventilation syndrome Hypoventilation associated with obesity COPD (chronic obstructive pulmonary disease) Morbid obesity with BMI of 50.0-59.9, adult Acute and chronic respiratory failure Pressure injury of deep tissue of buttock Pressure ulcer, stage II, skin breakdown Hypertrophic nonobstructive cardiomyopathy Presence of permanent cardiac pacemaker Acute on chronic respiratory failure with hypoxia and hypercapnia Metabolic encephalopathy Acute and chronic respiratory failure with hypercapnia Urinary tract infection due to ESBL Klebsiella Respiratory failure Presence of permanent cardiac pacemaker Sick sinus syndrome Morbid obesity Heart block AV third degree PAD (peripheral artery disease) Diabetic ulcer of foot associated with diabetes mellitus due to underlying condition, with fat layer exposed Atelectasis of both lungs Respiratory failure with hypoxia and hypercapnia Hypoventilation associated with obesity syndrome SMILEY (obstructive sleep apnea) Morbid obesity Pulmonary embolism CHF (congestive heart failure) Clostridium difficile infection Hypertension Diabetes mellitus, type 2 Depression Arthritis Anemia Family History Family history: reviewed and not pertinent Surgical History Surgical History History of total knee replacement Social History Social History Household Members: None [facility] Pt confused, unable to ascertain further Are you a primary childbirth and infant care teacher to a significant other at home: No Do you presently have visiting nurse or other home services: Yes Unable to assess alcohol history related to: Unable to respond and Unknown Alcohol intake: never Patient Tobacco Use Status: Former Tobacco user Quit Date: 30years ago Tobacco use type: Cigarette Cigarette Packs Per Day: 20 Cigarettes Per Day: 400.0 Years Smoked: 20 Smoked in Last 30 Days: No e-Cigarette/Vaping Use: Never Used Second Hand Smoke Exposure: No Use of substances other than those prescribed or required for medical reasons: No Substance Use Type: Unknown Advance Directives: Yes Advance Directives on File: Yes Advance Directives Date on File: 01/07/23 Patient : No service: No Current occupational status: disabled Meds Allergies Allergy/AdvReac Type Severity Reaction Status Date / Time latex Allergy Unknown Unknown Verified 04/21/23 13:40 adhesive tape AdvReac Unknown Unknown Verified 04/21/23 13:40 bupropion [From Wellbutrin] AdvReac Unknown Unknown Verified 04/21/23 13:40 ibuprofen AdvReac Unknown Unknown Verified 04/21/23 13:40 Active Medications: Current Medications Acetaminophen (Acetaminophen 325 Mg Tablet) 650 mg PO Q6H PRN PRN Reason: Pain, Mild (Pain Scale 1-3) Acetaminophen (Acetaminophen Supp 650 Mg Supp.Rect) 650 mg WV Q6H PRN PRN Reason: Pain, Mild (Pain Scale 1-3) Albuterol/Ipratropium (Albuterol/Iprat 2.5/0.5mg 3 Ml Ampul.Neb) 3 ml INHALE RQ4H WHILE AWAKE [facility] Last Admin: 07/02/23 14:25 Dose: Not Given Albuterol/Ipratropium (Albuterol/Iprat 2.5/0.5mg 3 Ml Ampul.Neb) 3 ml INHALE Q4H PRN PRN Reason: Wheezing Amlodipine Besylate (Amlodipine Besylate 5 Mg Tablet) 5 mg PO DAILY [facility]; Protocol Last Admin: 07/02/23 08:54 Dose: 5 mg Aripiprazole (Aripiprazole 2 Mg Tablet) 2 mg PO DAILY [facility] Last Admin: 07/02/23 09:03 Dose: 2 mg Aspirin (Aspirin 81 Mg Tab.Chew) 81 mg PO DAILY [facility] Last Admin: 07/02/23 08:55 Dose: 81 mg Atorvastatin Calcium (Atorvastatin Calcium 80 Mg Tablet) 80 mg PO BEDTIME [facility] Bisacodyl (Bisacodyl 10 Mg Supp.Rect) 10 mg WV DAILY PRN PRN Reason: Constipation Bupropion HCl (Bupropion Hcl Xl 150 Mg Tab.Er.24h) 150 mg PO DAILY [facility] Last Admin: 07/02/23 08:53 Dose: 150 mg Bupropion HCl (Bupropion Hcl Xl 300 Mg Tab.Er.24h) 300 mg PO DAILY [facility] Last Admin: 07/02/23 09:03 Dose: 300 mg Cyanocobalamin (Cyanocobalamin (Vitamin B-12) 1,000 Mcg Tablet) 1,000 mcg PO DAILY [facility] Last Admin: 07/02/23 08:53 Dose: 1,000 mcg Dextrose (Dextrose 50 % 25 Gm/50 Ml Syringe) 25 gm IVPUSH Q15M PRN; Protocol PRN Reason: per Hypoglycemia Standing Ord. Empagliflozin (Empagliflozin 10 Mg Tablet) 10 mg PO DAILY [facility] Last Admin: 07/02/23 10:57 Dose: 10 mg Enoxaparin Sodium (Enoxaparin Sodium 40 Mg/0.4 Ml Syringe) 40 mg SUBCUT Q12H [facility] Last Admin: 07/02/23 12:34 Dose: 40 mg Ferrous Sulfate (Ferrous Sulfate 324 Mg Tablet.Dr) 324 mg PO DAILY [facility] Last Admin: 07/02/23 08:53 Dose: 324 mg Fluticasone/Vilanterol (Fluticasone/Vilanterol 100/25 Blst.W.Dev) 1 puff INHALE DAILY [facility] Last Admin: 07/02/23 07:40 Dose: Not Given Furosemide (Furosemide 20 Mg/2 Ml Vial) 20 mg IVPUSH DAILY [facility]; Protocol Glucose (Glucose Gel 15 Gm Gel..Gram.) 15 gm PO Q15M PRN; Protocol PRN Reason: per Hypoglycemia Standing Ord. Meropenem 1 gm/ Sodium (Chloride) 100 mls @ 200 mls/hr IV Q8H [facility] Last Infusion: 07/02/23 08:40 Dose: Infused Azithromycin 500 mg/ Sodium (Chloride) 250 mls @ 125 mls/hr IV Q24H [facility] Magnesium Sulfate (Magnesium Sulfate/H2o) 2 gm in 50 mls @ 25 mls/hr IV ONCE ONE Stop: 07/02/23 15:59 Insulin Glargine (Insulin Glargine,Hum.Rec.Anlog 100 Unit/Ml 10 Ml Vial) 18 unit SUBCUT DAILY [facility] Last Admin: 07/02/23 08:55 Dose: 18 unit Insulin Human Lispro (Insulin Lispro 100 Unit/Ml 3 Ml Vial) 0 unit SUBCUT QIDACHS [facility]; Protocol Last Admin: 07/02/23 12:35 Dose: 8 unit Losartan Potassium (Losartan Potassium 25 Mg Tablet) 25 mg PO DAILY [facility]; Protocol Last Admin: 07/02/23 08:54 Dose: 25 mg Magnesium Hydroxide (Milk Of Magnesia 30 Ml Oral.Susp) 30 ml PO DAILY PRN PRN Reason: Constipation Megestrol Acetate (Megestrol Acetate 400 Mg/10 Ml Oral.Susp) 400 mg PO TID [facility] Last Admin: 07/02/23 10:57 Dose: 400 mg Metformin HCl (Metformin Hcl 500 Mg Tablet) 500 mg PO BID [facility] Last Admin: 07/02/23 08:52 Dose: 500 mg Methylprednisolone Sodium Succinate (Methylprednisolone Sod Succ 40 Mg/Ml Vial) 60 mg IVPUSH DAILY [facility] Non-Formulary Medication (Olopatadine) [facility] Ondansetron HCl (Ondansetron Hcl 4 Mg/2 Ml Vial) 4 mg IVPUSH Q8H PRN PRN Reason: Nausea and Vomiting Polyethylene Glycol (Polyethylene Glycol 3350 17 Gm Powd.Pack) 17 gm PO DAILY PRN PRN Reason: Constipation Potassium Chloride (Potassium Chloride Er 10 Meq Tablet.Er) 10 meq PO DAILY [facility] Last Admin: 07/02/23 08:53 Dose: 10 meq Senna (Sennosides 8.6 Mg Tablet) 17.2 mg PO BEDTIME [facility] Sertraline HCl (Sertraline Hcl 100 Mg Tablet) 200 mg PO DAILY [facility] Last Admin: 07/02/23 09:03 Dose: 200 mg Sodium Biphosphate/Sodium Phosphate (Sodium Phosphate,[place]-Dibasic 133 Ml Enema) 118 ml WV DAILY PRN PRN Reason: Constipation Sodium Chloride (0.9 % Sodium Chloride Flush 3 Ml Syringe) 3 ml IVFLUSH [facility] Last Admin: 07/02/23 07:47 Dose: Not Given Tizanidine HCl (Tizanidine Hcl 4 Mg Tablet) 4 mg PO BEDTIME PRN PRN Reason: Muscle Spasm Vitamin D (Cholecalciferol (Vitamin D3) 25 Mcg Tablet) 25 mcg PO DAILY [facility] Last Admin: 07/02/23 08:52 Dose: 25 mcg Home Medications Medication Instructions Recorded Confirmed Last Taken Type acetaminophen 325 mg tablet 650 mg PO Q4H PRN Fever Or Pain 11/18/21 07/01/23 Unknown History atorvastatin 80 mg tablet 80 mg PO BEDTIME 11/18/21 07/01/23 Unknown History ferrous sulfate 325 mg (65 mg 325 mg PO DAILY 11/18/21 07/01/23 Unknown History iron) tablet insulin lispro 100 unit/mL See Protocol subcut QIDACHS 11/18/21 07/01/23 Unknown History subcutaneous pen melatonin 3 mg tablet 3 mg PO BEDTIME 11/18/21 07/01/23 Unknown History polyethylene glycol 3350 17 gram 17 g PO DAILY PRN Constipation 11/18/21 07/01/23 Unknown History oral powder packet (Miralax) sennosides 8.6 mg tablet (senna) 17.2 mg PO BEDTIME 11/18/21 07/01/23 Unknown History sertraline 100 mg tablet 200 mg PO DAILY 11/18/21 07/01/23 Unknown History tizanidine 4 mg tablet 4 mg PO BEDTIME PRN Muscle Spasm 11/18/21 07/01/23 Unknown History aspirin 81 mg chewable tablet 81 mg PO DAILY 01/05/22 07/01/23 Unknown History bupropion HCl 300 mg 24 hr tablet, 300 mg PO DAILY 04/09/22 07/01/23 Unknown History extended release Lactobacillus rhamnosus GG 10 1 cap PO BID 10/09/22 07/01/23 Unknown History billion cell capsule (Culturelle) bupropion HCl 150 mg 24 hr tablet, 1 tab PO DAILY 10/09/22 07/01/23 Unknown History extended release ipratropium 0.5 mg-albuterol 3 mg 3 ml inhalation TID PRN Wheezing 10/09/22 07/01/23 Unknown History (2.5 mg base)/3 mL nebulization soln potassium chloride 10 mEq 10 meq PO DAILY 10/09/22 07/01/23 Unknown History tablet,extended release bisacodyl 10 mg rectal suppository 10 mg WV DAILY PRN Constipation 10/21/22 07/01/23 Unknown History fluticasone 113 mcg-salmeterol 14 1 inh inhalation BID 11/09/22 07/01/23 Unknown History mcg/actuation breath activated powdr (AirDuo RespiClick) magnesium hydroxide 400 mg/5 mL 30 ml PO DAILY PRN Constipation 11/09/22 07/01/23 Unknown History oral suspension (Milk of Magnesia) sodium phosphates 19 gram-7 118 ml WV DAILY PRN Constipation 11/09/22 07/01/23 Unknown History gram/118 mL enema (Fleet Enema) metformin 500 mg tablet 500 mg PO BID 12/27/22 07/01/23 Unknown History semaglutide 0.25 mg or 0.5 mg (2 0.5 mg subcut WE 12/27/22 07/01/23 Unknown History mg/3 mL) subcutaneous pen injector (Ozempic) aripiprazole 2 mg tablet 2 mg PO DAILY 01/12/23 07/01/23 Unknown History cholecalciferol (vitamin D3) 25 25 mcg PO DAILY 04/04/23 07/01/23 Unknown History mcg (1,000 unit) tablet insulin glargine 100 unit/mL 18 unit subcut DAILY 04/04/23 07/01/23 Unknown History subcutaneous solution (Lantus U-100 Insulin) losartan 25 mg tablet 25 mg PO DAILY 04/04/23 07/01/23 Unknown History megestrol 400 mg/10 mL (40 mg/mL) 400 mg PO TID 04/04/23 07/01/23 Unknown History oral suspension olopatadine 0.2 % eye drops 1 drp ophthalmic (eye) QSHIFT 04/04/23 07/01/23 Unknown History cyanocobalamin (vitamin B-12) 1,000 mcg PO DAILY 04/21/23 07/01/23 Unknown History 1,000 mcg capsule Physical Exam 2 Vital Signs: Vital Signs: Last Vital Signs Temp 98.7 F 07/02/23 14:55 Pulse 92 07/02/23 14:55 Resp 26 H 07/02/23 14:55 BP 110/59 L 07/02/23 14:55 Pulse Ox 92 07/02/23 14:55 O2 Del Method BiPAP 07/02/23 14:55 O2 Flow Rate 5 07/02/23 12:44 FiO2 30 07/02/23 01:31 Oxygen Flow Rate 4 07/01/23 20:34 BMI result Body Mass Index 60.0 Const: General: cooperative HEENT: Head: Yes normal to inspection Face and sinus: Yes normal facial exam Mouth: Normal oral and palatal mucosa present Teeth and gingiva: d entition normal Eyes: General: appearance normal, both eyes and all related structures P upils: Equal, round and reactive pupils present Resp: Effort & Inspection: normal respiratory effort Cardio: Rate: regular rate Rhythm: regular rhythm GI: Palpation (GI): Soft to palpation and nontender : General: Yes no CVA tenderness Back/Spine/Pelvis: Back: no CVA tenderness Skin: General skin exam: no rashes or lesions noted Neuro: General: moves all extremities Cranial nerves: Yes Equal, round and reactive pupils present Extrem: General: Yes normal to inspection Psych: Other: not interactive Results Labs 07/02/23 05:19 07/02/23 05:19 Labs: Short CBC 07/01/23 07/02/23 Range/Units 20:30 05:19 WBC 6.4 5.3 (4.8-10.8) X10*3/uL Hgb 13.0 12.7 (12.0-16.0) g/dl Hct 46.0 44.8 (37.0-47.0) % Plt Count 233 224 (160-400) X10*3/uL BMP 07/01/23 07/02/23 20:30 05:19 Sodium 144 144 Potassium 4.5 4.2 Chloride 99 99 Carbon Dioxide 32 H 32 H BUN 19 H 22 H Creatinine 0.98 1.00 Calcium 9.4 9.6 Liver Function 07/01/23 Range/Units 20:30 Total Bilirubin 0.3 (0.0-1.0) mg/dL AST 14 (5-31) U/L ALT 11 (0-31) U/L Alkaline Phosphatase 72 (39-117) U/L Albumin 3.8 (3.5-5.0) g/dL Urine 07/01/23 Range/Units 21:55 Urine Color Yellow Urine Appearance Clear Urine pH 5.0 (5.0-9.0) Ur Specific [place] 1.025 (1.005-1.025) Urine Protein Negative (Neg-Trace) mg/dL Urine Glucose (UA) >=1000 H (Negative) mg/dL Microbiology Microbiology Results: Microbiology 07/01/23 Unknown Urine clean catch - Urine scmhitt top Urine Culture - Preliminary Gram negative nataly Assessment and Plan (1) Acute and chronic respiratory failure with hypercapnia: Status: Acute (2) Sepsis: Status: Acute Temperature 100.5 and tachycardia. She has probable urinary source with pyuria and has had ESBL Klebsiella UTI in past. Plan IV Merem pending above results. Check blood and urine cultures. Patient in ICU get fluid/pressure support if needed. Time Spent With Patient Time: Total time managing care of this patient today ____ minutes.
[2023-07-02] MEDS: Magnesium Sulfate/H2O 2 GM/50 ML PIGGYBACK IV (15:52)
[2023-07-02] MEDS: Azithromycin 500 MG in 0.9 % Sodium Chloride 250 ML 125 MG IV (16:07)
[2023-07-02] MEDS: 0.9 % Sodium Chloride Flush 3 ML SYRINGE IVFLUSH ×2 (16:12→22:20)
[2023-07-02 16:24] LABS: VBG Base Excess 13.6 mmol/L; VBG HCO3 40 mmol/L (22-26); VBG pCO2 58 mmHg; VBG pH 7.44 (7.32-7.43); VBG pO2 58 mmHg
[2023-07-02 16:44] LABS: Glucose, Whole Blood 218 mg/dL (60-115)
[2023-07-02 16:48] LABS: MANUAL DIFF FLAG NO
--- NOTE | 2023-07-02 16:50 | HO.SKINPHOTO ---
Location: Category: Stage: Length: Width: Depth: cm
[2023-07-02 16:54] LABS: Basophils Percent Auto 0.2 % (0-2); Hemoglobin 12.2 g/dl (12.0-16.0); Imm Gran Abs Auto 0.04 X10*3/uL (0.00-0.03); Imm Gran Pct Auto 0.8 % (0.0-0.4); Lymphocytes Absolute Auto 0.4 X10*3/uL (1.2-4.9); Lymphocytes Percent Auto 7.8 % (20-40); Mean Corpuscular Hemoglobin 27.9 pg (27.0-33.0); Mean Corpuscular Volume 95.9 fL (80.0-98.0); Mean Platelet Volume 10.7 fL (9.4-12.3); Monocytes Absolute Auto 0.3 X10*3/uL (0.1-1.2); Monocytes Percent Auto 5.1 % (2-11); NRBC Pct Auto 0.6 /100WBC (0.0-0.2); Neutrophils Absolute Auto 4.2 x10*3/uL (2.0-8.3); Neutrophils Percent Auto 86.1 % (45-73); Platelet Count 246 X10*3/uL (160-400); Red Blood Count 4.38 X10*6/uL (4.20-5.50); Red Cell Distribution Width 15.4 % (11.0-16.0); White Blood Count 4.9 X10*3/uL (4.8-10.8)
[2023-07-02 17:09] LABS: Alanine Aminotransferase 11 U/L (0-31); Albumin Level 3.6 g/dL (3.5-5.0); Alkaline Phosphatase 65 U/L (39-117); Anion Gap 17 (12-20); Aspartate Amino Transferase 10 U/L (5-31); Bilirubin Total 0.2 mg/dL (0.0-1.0); Blood Urea Nitrogen 27 mg/dL (9-16); Calcium 9.7 mg/dL (8.4-10.2); Carbon Dioxide 34 mmol/L (22-29); Chloride 98 mmol/L (96-108); Creatinine Clr Calc Pharmacy 79.1; Estimated Glomerular Filt Rate 54; Glucose Random 276 mg/dL (60-115); Magnesium 2.3 mg/dL (1.6-2.6); Phosphorus 3.2 mg/dL (2.7-4.5); Potassium 3.9 mmol/L (3.3-5.1); Sodium 145 mmol/L (135-145)
--- NOTE | 2023-07-02 17:15 | W.MHC.ACPN ---
Advanced Care Planning Note Advanced Care Planning Note Discussed with: patient Time spent (in minutes): 30 Narrative: Ms. Das's and healthcare proxy, Miah, was present at bedside. I offered updates and clarifications. We discussed Ms. Das's code status, which was resuscitation, but DNI. I discussed the interconnection of the heart and lungs, and that respiratory failure often accompanies cardiovascular failure. Given this, her code status was changed to DNR, DNI. Miah plans to visit tomorrow to discuss next steps in Ms. Das's care. Problems Discussed (1) Acute and chronic respiratory failure with hypercapnia: (2) Sepsis:
[2023-07-02 19:47] LABS: Venous Blood Gas Refer to POC result
[2023-07-02 20:38] LABS: Glucose, Whole Blood 213 mg/dL (60-115)
[2023-07-02 23:25] LABS: VBG Base Excess 15.5 mmol/L; VBG HCO3 41 mmol/L (22-26); VBG pCO2 51 mmHg; VBG pO2 51 mmHg
[2023-07-02] MEDS: acetaZOLAMIDE sodium 500 MG VIAL IVPUSH (23:50)
[2023-07-02 23:56] LABS: Venous Blood Gas Refer to POC result
[2023-07-03] VITALS (30 sets, daily range): BP systolic 92–125; BP diastolic 46–94; PULSE 66–99; RESP 13–32; TEMP 37.5–38.3; O2SAT 85–95; BMI 60.0
[2023-07-03 04:47] LABS: VBG Base Excess 16.7 mmol/L; VBG HCO3 42 mmol/L (22-26); VBG pCO2 53 mmHg; VBG pO2 53 mmHg
[2023-07-03 04:49] LABS: Venous Blood Gas Refer to POC result
[2023-07-03 04:49] LABS: MANUAL DIFF FLAG NO
[2023-07-03 04:50] LABS: Basophils Percent Auto 0.3 % (0-2); Eosinophils Percent Auto 0.2 % (0-4); Hematocrit 40.6 % (37.0-47.0); Hemoglobin 11.8 g/dl (12.0-16.0); Imm Gran Abs Auto 0.05 X10*3/uL (0.00-0.03); Imm Gran Pct Auto 0.8 % (0.0-0.4); Lymphocytes Absolute Auto 0.9 X10*3/uL (1.2-4.9); Lymphocytes Percent Auto 14.5 % (20-40); Mean Corpuscular HGB Conc 29.1 g/dl (31.0-35.0); Mean Corpuscular Volume 96.2 fL (80.0-98.0); Mean Platelet Volume 10.9 fL (9.4-12.3); Monocytes Absolute Auto 0.5 X10*3/uL (0.1-1.2); Monocytes Percent Auto 8.4 % (2-11); Neutrophils Absolute Auto 4.5 x10*3/uL (2.0-8.3); Neutrophils Percent Auto 75.8 % (45-73); Platelet Count 242 X10*3/uL (160-400); Red Blood Count 4.22 X10*6/uL (4.20-5.50); Red Cell Distribution Width 15.8 % (11.0-16.0); White Blood Count 5.9 X10*3/uL (4.8-10.8)
[2023-07-03 05:06] LABS: Alanine Aminotransferase 10 U/L (0-31); Albumin Level 3.3 g/dL (3.5-5.0); Alkaline Phosphatase 53 U/L (39-117); Anion Gap 16 (12-20); Aspartate Amino Transferase 10 U/L (5-31); Bilirubin Total 0.2 mg/dL (0.0-1.0); Blood Urea Nitrogen 31 mg/dL (9-16); Calcium 9.4 mg/dL (8.4-10.2); Carbon Dioxide 31 mmol/L (22-29); Chloride 102 mmol/L (96-108); Creatinine Clr Calc Pharmacy 93.6; Estimated Glomerular Filt Rate > 60; Glucose Random 139 mg/dL (60-115); Potassium 3.5 mmol/L (3.3-5.1); Sodium 145 mmol/L (135-145); Total Protein 6.4 g/dL (6.5-8.0)
[2023-07-03 07:22] LABS: Glucose, Whole Blood 111 mg/dL (60-115)
--- NOTE | 2023-07-03 07:42 | PM.CCPN ---
Subjective Subjective Date of Service: 07/03/23 Interval History: no interval overnight events Critical Care Time (minutes): 60 Physical Exam Vital Signs: Vital Signs: Last Vital Signs Temp 99.7 F 07/03/23 07:00 Pulse 66 07/03/23 07:00 Resp 16 07/03/23 07:00 BP 112/48 L 07/03/23 07:00 Pulse Ox 93 07/03/23 07:00 O2 Del Method BiPAP 07/03/23 07:00 O2 Flow Rate 5 07/02/23 12:44 FiO2 28 07/03/23 07:00 Oxygen Flow Rate 4 07/01/23 20:34 BMI result Body Mass Index 60.0 Const: Other: morbidly obese; General: cooperative, healthy appearing, comfortable, no acute distress, alert, awake and Physically active Orientation/consciousness: oriented to person and oriented to place HEENT: Head: Yes normal to inspection, Yes normocephalic and Yes atraumatic Eyes: General: appearance normal, both eyes and all related structures Neck: Neck: Yes normal visual inspection and Yes supple Chest: Chest palpation & inspection: normal inspection of the chest Resp: Other: no appreciable rales, rhonchi, wheezing Effort & Inspection: normal respiratory effort and able to speak in complete sentences Cardio: Rate: regular rate Rhythm: regular rhythm GI: Inspection: Yes normal to inspection, No Abdominal wall edema and No distended Palpation (GI): Soft to palpation, not firm, nontender, no guarding and not rigid Skin: Other: appreciable erythema R leg Neuro: General: oriented to person, oriented to place, moves all extremities and no focal motor deficits Extrem: Other: 1+ pitting edema to bilateral shins General: Yes normal to inspection, Yes capillary refill normal and Yes edema Psych: Appearance: grossly normal Objective Data Labs 07/03/23 04:39 07/03/23 04:39 Labs: Laboratory Results - last 24 hr 07/02/23 07/02/23 07/02/23 12:00 12:01 16:18 WBC 4.9 RBC 4.38 Hgb 12.2 Hct 42.0 MCV 95.9 MCH 27.9 MCHC 29.0 L RDW 15.4 Plt Count 246 MPV 10.7 Immature Gran % (Auto) 0.8 H Neut % (Auto) 86.1 H Lymph % (Auto) 7.8 L [place] % (Auto) 5.1 Eos % (Auto) 0.0 Baso % (Auto) 0.2 Lymph # (Auto) 0.4 L [place] # (Auto) 0.3 Eos # (Auto) 0.0 Baso # (Auto) 0.0 Abs Immat Gran (auto) 0.04 H Absolute Neuts (auto) 4.2 Absolute Nucleated RBC 0.030 H Nucleated RBC % (auto) 0.6 H VBG pH 7.31 L VBG pCO2 76 VBG pO2 136 VBG HCO3 38 H VBG O2 Saturation 99.0 VBG Base Excess 9.2 Sodium 145 Potassium 3.9 Chloride 98 Carbon Dioxide 34 H Anion Gap 17 BUN 27 H Creatinine 1.03 Estim Creat Clear Calc 79.1 Estimated GFR 54 POC Glucose 304 H Random Glucose 276 H Calcium 9.7 Phosphorus 3.2 Magnesium 2.3 Total Bilirubin 0.2 AST 10 ALT 11 Alkaline Phosphatase 65 Total Protein 7.0 Albumin 3.6 07/02/23 07/02/23 07/02/23 16:19 16:41 20:32 WBC RBC Hgb Hct MCV MCH MCHC RDW Plt Count MPV Immature Gran % (Auto) Neut % (Auto) Lymph % (Auto) [place] % (Auto) Eos % (Auto) Baso % (Auto) Lymph # (Auto) [place] # (Auto) Eos # (Auto) Baso # (Auto) Abs Immat Gran (auto) Absolute Neuts (auto) Absolute Nucleated RBC Nucleated RBC % (auto) VBG pH 7.44 H VBG pCO2 58 VBG pO2 58 VBG HCO3 40 H VBG O2 Saturation 90.0 VBG Base Excess 13.6 Sodium Potassium Chloride Carbon Dioxide Anion Gap BUN Creatinine Estim Creat Clear Calc Estimated GFR POC Glucose 218 H 213 H Random Glucose Calcium Phosphorus Magnesium Total Bilirubin AST ALT Alkaline Phosphatase Total Protein Albumin 07/02/23 07/03/23 07/03/23 23:20 04:39 04:42 WBC 5.9 RBC 4.22 Hgb 11.8 L Hct 40.6 MCV 96.2 MCH 28.0 MCHC 29.1 L RDW 15.8 Plt Count 242 MPV 10.9 Immature Gran % (Auto) 0.8 H Neut % (Auto) 75.8 H Lymph % (Auto) 14.5 L [place] % (Auto) 8.4 Eos % (Auto) 0.2 Baso % (Auto) 0.3 Lymph # (Auto) 0.9 L [place] # (Auto) 0.5 Eos # (Auto) 0.0 Baso # (Auto) 0.0 Abs Immat Gran (auto) 0.05 H Absolute Neuts (auto) 4.5 Absolute Nucleated RBC 0.000 Nucleated RBC % (auto) 0.0 VBG pH 7.50 H 7.50 H VBG pCO2 51 53 VBG pO2 51 53 VBG HCO3 41 H 42 H VBG O2 Saturation 85.0 86.0 VBG Base Excess 15.5 16.7 Sodium 145 Potassium 3.5 Chloride 102 Carbon Dioxide 31 H Anion Gap 16 BUN 31 H Creatinine 0.87 Estim Creat Clear Calc 93.6 Estimated GFR > 60 POC Glucose Random Glucose 139 H Calcium 9.4 Phosphorus Magnesium Total Bilirubin 0.2 AST 10 ALT 10 Alkaline Phosphatase 53 Total Protein 6.4 L Albumin 3.3 L 07/03/23 07:19 WBC RBC Hgb Hct MCV MCH MCHC RDW Plt Count MPV Immature Gran % (Auto) Neut % (Auto) Lymph % (Auto) [place] % (Auto) Eos % (Auto) Baso % (Auto) Lymph # (Auto) [place] # (Auto) Eos # (Auto) Baso # (Auto) Abs Immat Gran (auto) Absolute Neuts (auto) Absolute Nucleated RBC Nucleated RBC % (auto) VBG pH VBG pCO2 VBG pO2 VBG HCO3 VBG O2 Saturation VBG Base Excess Sodium Potassium Chloride Carbon Dioxide Anion Gap BUN Creatinine Estim Creat Clear Calc Estimated GFR POC Glucose 111 Random Glucose Calcium Phosphorus Magnesium Total Bilirubin AST ALT Alkaline Phosphatase Total Protein Albumin Microbiology Microbiology Results: Microbiology 07/01/23 20:59 Blood - Venous Blood Culture - Preliminary No growth after 24 hours. 07/01/23 20:59 Blood - Venous Blood Culture - Preliminary No growth after 24 hours. 07/01/23 Unknown Urine clean catch - Urine schmitt top Urine Culture - Preliminary Gram negative nataly Progress Note: A&P Assessment and plan (1) Obesity hypoventilation syndrome: Status: Acute (2) Morbid obesity: Status: Acute (3) Urinary tract infection: Status: Acute (4) Acute on chronic respiratory failure with hypoxia and hypercapnia: Status: Resolved Plan Assessment: Patient is a 62 Y F with hypertension, diabetes mellitus, morbid obesity, c/b obesity hypoventilation syndrome, COPD, c/b chronic mixed respiratory failure, on 3 L NC AM and BiPAP PM, w/ reports of non-compliance, as well as CHF, presenting from nursing facility w/ hypoxemia, treated for COPD exacerbation, accepted to medicine, however developed worsening hypoxemia, hypercarbia, and encephalopathy, necessitating BiPAP, prompting ICU admission Plan: N: metabolic encephalopathy, improved CV: hemodynamically stable; to continue to monitor R: acute on chronic mixed respiratory failure, in the setting of morbid obesity, c/b OHS, and COPD; to continue BiPAP as needed, duo-nebs, methylprednisolone, empiric antibiotics GI: NPO while on BiPAP, encephalopathic : urinary tract infection; of note, patient with prior ESBL-klebsiella UTI; to continue meropenem; R lower extremity c/f cellulitis; can consider MRSA coverage if not improving on meropenem H: no acute issues ID: as described above E: diabetes mellitus, insulin regimen Quality Stroke Does the patient have a stroke diagnosis?: No VTE Prior VTE?: No VTE Risk Level:: Medical - moderate - high VTE Device Contraindication: Treatment Not Indicated VTE Drug Contraindication: N/A - Med Ordered
[2023-07-03] MEDS: Furosemide 20 MG/2 ML VIAL IVPUSH (07:48)
[2023-07-03] MEDS: methylPREDNISolone Sod Succ 40 MG/ML VIAL 60 MG IVPUSH (07:49)
[2023-07-03] MEDS: Insulin Glargine,Hum.rec.anlog 100 UNIT/ML 10 ML VIAL 18 UNIT SUBCUT (07:50)
[2023-07-03] MEDS: 0.9 % Sodium Chloride Flush 3 ML SYRINGE IVFLUSH ×3 (07:50→22:10)
[2023-07-03] MEDS: Albuterol/Iprat 2.5/0.5MG 3 ML AMPUL.NEB INHALE ×4 (07:52→20:41)
--- NOTE | 2023-07-03 08:03 | PC.RT ---
Pt off bipap to 3 lpm ETCO2 n/c. RN aware.
[2023-07-03] MEDS: Sertraline HCL 100 MG TABLET 200 MG PO (08:48)
[2023-07-03] MEDS: Cyanocobalamin (Vitamin B-12) 1,000 MCG TABLET 1000 MCG PO (08:48)
[2023-07-03] MEDS: Potassium Chloride ER 10 MEQ TABLET.ER PO (08:48)
[2023-07-03] MEDS: Aspirin 81 MG TAB.CHEW PO (08:48)
[2023-07-03] MEDS: Cholecalciferol (Vitamin D3) 25 MCG TABLET PO (08:48)
[2023-07-03] MEDS: Ferrous Sulfate 324 MG TABLET.DR PO (08:48)
[2023-07-03] MEDS: Enoxaparin Sodium 40 MG/0.4 ML SYRINGE SUBCUT ×2 (10:06→22:09)
[2023-07-03] MEDS: ARIPiprazole 2 MG TABLET PO (10:06)
[2023-07-03] MEDS: Megestrol Acetate 400 MG/10 ML ORAL.SUSP PO ×2 (10:06→20:21)
[2023-07-03 12:05] LABS: Glucose, Whole Blood 343 mg/dL (60-115)
[2023-07-03] MEDS: Insulin Lispro 100 UNIT/ML 3 ML VIAL SUBCUT ×4 (12:06→20:35)
[2023-07-03] MEDS: Acetaminophen 325 MG TABLET 650 MG PO (12:06)
[2023-07-03 12:16] LABS: VBG HCO3 37 mmol/L (22-26); VBG pCO2 51 mmHg; VBG pH 7.47 (7.32-7.43); VBG pO2 72 mmHg
[2023-07-03] MEDS: Azithromycin 500 MG in 0.9 % Sodium Chloride 250 ML 125 MG IV (13:20)
[2023-07-03 14:33] LABS: Venous Blood Gas Refer to POC result
--- NOTE | 2023-07-03 15:42 | MHC.CM.PN ---
Pt continues care in ICU for respiratory failure: [facility] when medically [facility]. CM to follow.
[2023-07-03 16:14] LABS: Glucose, Whole Blood 336 mg/dL (60-115)
--- NOTE | 2023-07-03 17:34 | PC.NURSE ---
Assumed care of patient 07:00 Pt on Bipap 16/8 28%. Sleeping, opens eyes to name. 0900 per MD, patient can be taken off of bipap and transitioned to nasal cannula oxygen as tolerated. RT at bedside, pt placed on oxygen and required oxymask 4L. Pt ate 100% meals x3 on 4L NC with brief periods of desaturation. Pt recovers quickly. No work of breathing. 12:00 MD notified of elevated temperature 100.8F. Per MD administer prn tylenol. IV antibiotics continued. pt remained on 4L oxymask through the day shift. Trending VBGs. A+Ox1, states she is in [place] but confused to exact place, confuses RN for a personal acquaintance. MD aware. Alertness improved throughout shift.
[2023-07-03 18:27] LABS: VBG HCO3 35 mmol/L (22-26); VBG pCO2 52 mmHg; VBG pH 7.44 (7.32-7.43); VBG pO2 62 mmHg
[2023-07-03] MEDS: Sennosides 8.6 MG TABLET 17.2 MG PO (20:21)
[2023-07-03] MEDS: Atorvastatin Calcium 80 MG TABLET PO (20:21)
[2023-07-03 20:27] LABS: Glucose, Whole Blood 304 mg/dL (60-115)
[2023-07-03 20:54] LABS: Venous Blood Gas Refer to POC result
[2023-07-04] VITALS (26 sets, daily range): BP systolic 103–143; BP diastolic 60–86; PULSE 69–100; RESP 15–46; TEMP 36.5–38; O2SAT 85–92; BMI 60.5
[2023-07-04 04:59] LABS: MANUAL DIFF FLAG NO
[2023-07-04 05:00] LABS: Basophils Percent Auto 0.2 % (0-2); Hematocrit 39.4 % (37.0-47.0); Hemoglobin 11.9 g/dl (12.0-16.0); Imm Gran Abs Auto 0.05 X10*3/uL (0.00-0.03); Imm Gran Pct Auto 0.9 % (0.0-0.4); Lymphocytes Absolute Auto 1.1 X10*3/uL (1.2-4.9); Lymphocytes Percent Auto 19.9 % (20-40); Mean Corpuscular HGB Conc 30.2 g/dl (31.0-35.0); Mean Corpuscular Hemoglobin 28.2 pg (27.0-33.0); Mean Corpuscular Volume 93.4 fL (80.0-98.0); Mean Platelet Volume 10.3 fL (9.4-12.3); Monocytes Absolute Auto 0.5 X10*3/uL (0.1-1.2); Neutrophils Absolute Auto 3.9 x10*3/uL (2.0-8.3); Platelet Count 216 X10*3/uL (160-400); Red Blood Count 4.22 X10*6/uL (4.20-5.50); Red Cell Distribution Width 15.9 % (11.0-16.0); White Blood Count 5.6 X10*3/uL (4.8-10.8)
[2023-07-04 05:03] LABS: VBG Base Excess 13.8 mmol/L; VBG HCO3 37 mmol/L (22-26); VBG pCO2 41 mmHg; VBG pH 7.56 (7.32-7.43); VBG pO2 82 mmHg
[2023-07-04 05:15] LABS: Alanine Aminotransferase 10 U/L (0-31); Albumin Level 3.2 g/dL (3.5-5.0); Alkaline Phosphatase 49 U/L (39-117); Anion Gap 17 (12-20); Aspartate Amino Transferase 11 U/L (5-31); Bilirubin Total 0.3 mg/dL (0.0-1.0); Blood Urea Nitrogen 40 mg/dL (9-16); Calcium 8.9 mg/dL (8.4-10.2); Carbon Dioxide 29 mmol/L (22-29); Chloride 100 mmol/L (96-108); Creatinine Clr Calc Pharmacy 109.1; Estimated Glomerular Filt Rate > 60; Glucose Random 126 mg/dL (60-115); Potassium 3.8 mmol/L (3.3-5.1); Sodium 142 mmol/L (135-145); Total Protein 6.1 g/dL (6.5-8.0)
[2023-07-04 07:28] LABS: Glucose, Whole Blood 120 mg/dL (60-115)
[2023-07-04] MEDS: 0.9 % Sodium Chloride Flush 3 ML SYRINGE IVFLUSH ×3 (07:37→22:52)
[2023-07-04] MEDS: Furosemide 20 MG/2 ML VIAL IVPUSH (07:49)
[2023-07-04] MEDS: methylPREDNISolone Sod Succ 40 MG/ML VIAL 60 MG IVPUSH (07:50)
--- NOTE | 2023-07-04 07:58 | P.PNCC_ITS ---
Subjective Subjective Date of Service: 07/04/23 Interval History: no interval overnight events Critical Care Time (minutes): 60 Physical Exam 2 Vital Signs: Vital Signs: Last Vital Signs Temp 99.7 F 07/04/23 07:00 Pulse 69 07/04/23 07:00 Resp 20 07/04/23 07:00 BP 114/75 07/04/23 07:00 Pulse Ox 89 L 07/04/23 07:00 O2 Del Method BiPAP 07/04/23 07:00 O2 Flow Rate 4 07/03/23 20:00 FiO2 28 07/04/23 07:52 Oxygen Flow Rate 4 07/01/23 20:34 BMI result Body Mass Index 60.5 Const: Other: morbidly obese General: cooperative, healthy appearing, comfortable, no acute distress, alert, awake and Physically active Orientation/consciousness: patient oriented x3 HEENT: Head: Yes normal to inspection, Yes normocephalic and Yes atraumatic Eyes: General: appearance normal, both eyes and all related structures Neck: Neck: Yes normal visual inspection, Yes full ROM, Yes no meningeal signs and Yes supple Chest: Chest palpation & inspection: normal inspection of the chest Resp: Other: no rales, rhonchi, wheezing Effort & Inspection: normal respiratory effort Cardio: Rate: regular rate Rhythm: regular rhythm Heart sounds: S1 normal heart sound present and S2 normal heart sound present GI: Inspection: Yes normal to inspection Skin: General skin exam: no rashes or lesions noted Neuro: General: patient oriented x3 and no meningeal signs Extrem: General: Yes normal to inspection, Yes capillary refill normal and Yes no clubbing, cyanosis or edema Psych: Appearance: grossly normal Objective Data Labs 07/04/23 04:52 07/04/23 04:52 Labs: Laboratory Results - last 24 hr 07/03/23 07/03/23 07/03/23 12:01 12:10 16:09 WBC RBC Hgb Hct MCV MCH MCHC RDW Plt Count MPV Immature Gran % (Auto) Neut % (Auto) Lymph % (Auto) Overton % (Auto) Eos % (Auto) Baso % (Auto) Lymph # (Auto) Overton # (Auto) Eos # (Auto) Baso # (Auto) Abs Immat Gran (auto) Absolute Neuts (auto) Absolute Nucleated RBC Nucleated RBC % (auto) VBG pH 7.47 H VBG pCO2 51 VBG pO2 72 VBG HCO3 37 H VBG O2 Saturation 95.0 VBG Base Excess 12.0 Sodium Potassium Chloride Carbon Dioxide Anion Gap BUN Creatinine Estim Creat Clear Calc Estimated GFR POC Glucose 343 H 336 H Random Glucose Calcium Total Bilirubin AST ALT Alkaline Phosphatase Total Protein Albumin 07/03/23 07/03/23 07/04/23 18:22 20:23 04:52 WBC 5.6 RBC 4.22 Hgb 11.9 L Hct 39.4 MCV 93.4 MCH 28.2 MCHC 30.2 L RDW 15.9 Plt Count 216 MPV 10.3 Immature Gran % (Auto) 0.9 H Neut % (Auto) 70.0 Lymph % (Auto) 19.9 L Overton % (Auto) 9.0 Eos % (Auto) 0.0 Baso % (Auto) 0.2 Lymph # (Auto) 1.1 L Overton # (Auto) 0.5 Eos # (Auto) 0.0 Baso # (Auto) 0.0 Abs Immat Gran (auto) 0.05 H Absolute Neuts (auto) 3.9 Absolute Nucleated RBC 0.000 Nucleated RBC % (auto) 0.0 VBG pH 7.44 H VBG pCO2 52 VBG pO2 62 VBG HCO3 35 H VBG O2 Saturation 91.0 VBG Base Excess 10.0 Sodium 142 Potassium 3.8 Chloride 100 Carbon Dioxide 29 Anion Gap 17 BUN 40 H Creatinine 0.75 Estim Creat Clear Calc 109.1 Estimated GFR > 60 POC Glucose 304 H Random Glucose 126 H Calcium 8.9 Total Bilirubin 0.3 AST 11 ALT 10 Alkaline Phosphatase 49 Total Protein 6.1 L Albumin 3.2 L 07/04/23 07/04/23 04:57 07:24 WBC RBC Hgb Hct MCV MCH MCHC RDW Plt Count MPV Immature Gran % (Auto) Neut % (Auto) Lymph % (Auto) Overton % (Auto) Eos % (Auto) Baso % (Auto) Lymph # (Auto) Overton # (Auto) Eos # (Auto) Baso # (Auto) Abs Immat Gran (auto) Absolute Neuts (auto) Absolute Nucleated RBC Nucleated RBC % (auto) VBG pH 7.56 H VBG pCO2 41 VBG pO2 82 VBG HCO3 37 H VBG O2 Saturation 98.0 VBG Base Excess 13.8 Sodium Potassium Chloride Carbon Dioxide Anion Gap BUN Creatinine Estim Creat Clear Calc Estimated GFR POC Glucose 120 H Random Glucose Calcium Total Bilirubin AST ALT Alkaline Phosphatase Total Protein Albumin Microbiology Microbiology Results: Microbiology 07/01/23 Unknown Urine clean catch - Urine schmitt top Urine Culture - Final Escherichia coli 07/01/23 20:59 Blood - Venous Blood Culture - Preliminary No growth after 48 hours. 07/01/23 20:59 Blood - Venous Blood Culture - Preliminary No growth after 48 hours. Progress Note: A&P Assessment and plan (1) Obesity hypoventilation syndrome: Status: Acute (2) Acute and chronic respiratory failure with hypercapnia: Status: Acute (3) Morbid obesity: Status: Acute (4) Urinary tract infection: Status: Acute Plan Assessment: Patient is a 62 Y F with hypertension, diabetes mellitus, morbid obesity, c/b obesity hypoventilation syndrome, COPD, c/b chronic mixed respiratory failure, on 3 L NC AM and BiPAP PM, w/ reports of non-compliance, as well as CHF, presenting from nursing facility w/ hypoxemia, treated for COPD exacerbation, accepted to medicine, however developed worsening hypoxemia, hypercarbia, and encephalopathy, necessitating BiPAP, prompting ICU admission Plan: N: metabolic encephalopathy, improved CV: hemodynamically stable; to continue to monitor R: acute on chronic mixed respiratory failure, in the setting of morbid obesity, c/b OHS, and COPD, improved; BiPAP PM, duo-nebs, methylprednisolone, empiric antibiotics GI: NPO while on BiPAP, encephalopathic : urinary tract infection w/ e. coli; of note, patient with prior ESBL- klebsiella UTI, on meropenem x2 days, now switched to ceftriaxone for total 5 day course; R lower extremity c/f cellulitis; can consider MRSA coverage if not improving on ceftriaxone H: no acute issues ID: as described above E: diabetes mellitus, insulin regimen Quality Stroke Does the patient have a stroke diagnosis?: No VTE Prior VTE?: No VTE Risk Level:: Medical - moderate - high VTE Device Contraindication: Treatment Not Indicated VTE Drug Contraindication: N/A - Med Ordered
[2023-07-04 08:00] LABS: Venous Blood Gas Refer to POC result
[2023-07-04] MEDS: Albuterol/Iprat 2.5/0.5MG 3 ML AMPUL.NEB INHALE ×4 (08:03→19:32)
[2023-07-04] MEDS: Fluticasone/Vilanterol 100/25 BLST.W.DEV 1 PUFF INHALE (08:03)
[2023-07-04] MEDS: cefTRIAXone sodium 1 GM in 0.9 % Sodium Chloride 50 ML IV (08:10)
[2023-07-04] MEDS: Sertraline HCL 100 MG TABLET 200 MG PO (08:25)
[2023-07-04] MEDS: Potassium Chloride ER 10 MEQ TABLET.ER PO (08:25)
[2023-07-04] MEDS: Aspirin 81 MG TAB.CHEW PO (08:25)
[2023-07-04] MEDS: ARIPiprazole 2 MG TABLET PO (08:25)
[2023-07-04] MEDS: Cyanocobalamin (Vitamin B-12) 1,000 MCG TABLET 1000 MCG PO (08:25)
[2023-07-04] MEDS: Megestrol Acetate 400 MG/10 ML ORAL.SUSP PO ×3 (08:25→22:42)
[2023-07-04] MEDS: Cholecalciferol (Vitamin D3) 25 MCG TABLET PO (08:26)
[2023-07-04] MEDS: Insulin Glargine,Hum.rec.anlog 100 UNIT/ML 10 ML VIAL 18 UNIT SUBCUT (08:26)
[2023-07-04] MEDS: Ferrous Sulfate 324 MG TABLET.DR PO (08:26)
--- NOTE | 2023-07-04 09:47 | MHC.CLN ---
F/U PT WITH INCREASED NUTRITION RISK R/T PRESSURE INJURY PO 100% X 3 MEALS DIET RX: 1500DM 2GM NA -APPROPRIATE PT RECEIVING ENSURE MAX BID TO PROMOTE WOUND HEALING PROVIDES 300KCALS, 60G PROTEIN MONITOR PO INTAKE AND ENCOURAGE SUPPLEMENT ACCEPTANCE
[2023-07-04 11:10] LABS: Glucose, Whole Blood 279 mg/dL (60-115)
[2023-07-04] MEDS: Enoxaparin Sodium 40 MG/0.4 ML SYRINGE SUBCUT ×2 (11:22→22:43)
[2023-07-04] MEDS: Insulin Lispro 100 UNIT/ML 3 ML VIAL SUBCUT ×4 (12:16→22:51)
--- NOTE | 2023-07-04 12:27 | PC.NURSE ---
Addendum entered by Mari Martinez RN 07/04/23 15:11: PT had one void on bedpan 14:30. Pt due to void for 2nd void in trial 20:30 Original Note: Sood removed 12:00. Pt due to void 18:[address] Pt states she wears a brief at [facility].
--- NOTE | 2023-07-04 12:28 | P.CDIM_ITS ---
PROVIDER RESPONSE TEXT: To clarify, the appropriate diagnosis supported by the clinical indicators: Pressure (decubitus) ulcer: stage 2, bilateral buttock QUERY TEXT: PHYSICIAN'S DOCUMENTATION REQUEST Date of Query: 07/03/2023 09:46 AM EDT Patient Name: Bonnie Das Admit Date: 07/02/2023 Dear Rosa Saxena, A review of the medical record indicates additional documentation may be needed. Please review below and update the documentation accordingly. Clinical Indicators: Per Nursing Pressure Injury Assessment 07/02/23: stage 2 wound bilateral buttock, dressing intact Based on the above, could you please provide further information regarding the type of ulcer/wound: Pressure (decubitus) ulcer Please include the stage of the ulcer and specify the location and laterality of the ulcer/wound Traumatic wound Please specify the location and laterality of the ulcer/wound Other (explain)Clinically unable to determine (explain)Thank you, Sarah Cannon RN Use of terms such as suspected, likely, concern for, or probable (associated with a specific diagnosi s that is being evaluated, monitored, or treated as if it exists) are acceptable and can be coded in the inpatient se tting, when documented at the time of discharge. Please use your independent medical judgment in providing your response. THIS QUERY IS PART OF THE PERMANENT MEDICAL RECORD
[2023-07-04] MEDS: Azithromycin 500 MG in 0.9 % Sodium Chloride 250 ML 125 MG IV (13:38)
--- NOTE | 2023-07-04 14:06 | MHC.CM.PN ---
Pt continues care in ICU w/respiratory compromise: on oxymizer. is a LTC resident of [facility] and will return via BLS when medically stable. Pt's spouse called and updated w/above information: clinical updates remitted to PVR. CM to follow.
[2023-07-04 16:47] LABS: Glucose, Whole Blood 397 mg/dL (60-115)
[2023-07-04 19:56] LABS: Glucose, Whole Blood 357 mg/dL (60-115)
[2023-07-04] MEDS: Atorvastatin Calcium 80 MG TABLET PO (22:42)
[2023-07-04] MEDS: Sennosides 8.6 MG TABLET 17.2 MG PO (22:42)
[2023-07-04 22:47] LABS: Glucose, Whole Blood 291 mg/dL (60-115)
[2023-07-05 00:09] VITALS: PULSE 75; RESP 19; O2SAT 92
[2023-07-05 06:37] LABS: Hematocrit 40.1 % (37.0-47.0); Hemoglobin 12.2 g/dl (12.0-16.0); Mean Corpuscular HGB Conc 30.4 g/dl (31.0-35.0); Mean Corpuscular Hemoglobin 27.5 pg (27.0-33.0); Mean Corpuscular Volume 90.5 fL (80.0-98.0); Mean Platelet Volume 10.8 fL (9.4-12.3); Platelet Count 213 X10*3/uL (160-400); Red Blood Count 4.43 X10*6/uL (4.20-5.50); Red Cell Distribution Width 15.4 % (11.0-16.0); White Blood Count 5.7 X10*3/uL (4.8-10.8)
[2023-07-05 06:46] LABS: Anion Gap 15 (12-20); Blood Urea Nitrogen 39 mg/dL (9-16); Calcium 8.7 mg/dL (8.4-10.2); Carbon Dioxide 29 mmol/L (22-29); Chloride 99 mmol/L (96-108); Creatinine Clr Calc Pharmacy 113.6; Estimated Glomerular Filt Rate > 60; Glucose Random 138 mg/dL (60-115); Potassium 3.8 mmol/L (3.3-5.1); Sodium 139 mmol/L (135-145)
[2023-07-05 07:11] LABS: Glucose, Whole Blood 140 mg/dL (60-115)
[2023-07-05 07:12] VITALS: BP 140/81; PULSE 77; RESP 20; TEMP 36.8; O2SAT 90
[2023-07-05 08:20] LABS: Venous Blood Gas Refer to POC result
[2023-07-05 08:20] LABS: VBG Base Excess 9.6 mmol/L; VBG HCO3 34 mmol/L (22-26); VBG pCO2 46 mmHg; VBG pH 7.48 (7.32-7.43); VBG pO2 84 mmHg
[2023-07-05 08:42] LABS: VBG Base Excess 9.8 mmol/L; VBG HCO3 34 mmol/L (22-26); VBG pCO2 44 mmHg; VBG pH 7.49 (7.32-7.43); VBG pO2 118 mmHg
[2023-07-05] MEDS: cefTRIAXone sodium 1 GM in 0.9 % Sodium Chloride 50 ML IV (08:44)
[2023-07-05] MEDS: 0.9 % Sodium Chloride Flush 3 ML SYRINGE IVFLUSH (08:44)
[2023-07-05] MEDS: Insulin Glargine,Hum.rec.anlog 100 UNIT/ML 10 ML VIAL 18 UNIT SUBCUT (08:45)
[2023-07-05] MEDS: methylPREDNISolone Sod Succ 40 MG/ML VIAL 60 MG IVPUSH (08:45)
[2023-07-05] MEDS: Furosemide 20 MG/2 ML VIAL IVPUSH (08:45)
[2023-07-05] MEDS: Sertraline HCL 100 MG TABLET 200 MG PO (08:46)
[2023-07-05] MEDS: Megestrol Acetate 400 MG/10 ML ORAL.SUSP PO ×2 (08:46→15:11)
[2023-07-05] MEDS: Cyanocobalamin (Vitamin B-12) 1,000 MCG TABLET 1000 MCG PO (08:46)
[2023-07-05] MEDS: Ferrous Sulfate 324 MG TABLET.DR PO (08:46)
[2023-07-05] MEDS: Aspirin 81 MG TAB.CHEW PO (08:46)
[2023-07-05] MEDS: Cholecalciferol (Vitamin D3) 25 MCG TABLET PO (08:46)
[2023-07-05] MEDS: Potassium Chloride ER 10 MEQ TABLET.ER PO (08:46)
[2023-07-05] MEDS: ARIPiprazole 2 MG TABLET PO (08:46)
[2023-07-05 11:03] VITALS: BP 140/72; PULSE 87; RESP 20; TEMP 36.3; O2SAT 90
[2023-07-05 11:18] LABS: Glucose, Whole Blood 403 mg/dL (60-115)
[2023-07-05] MEDS: Insulin Glargine,Hum.rec.anlog 100 UNIT/ML 10 ML VIAL 8 UNIT SUBCUT (11:44)
[2023-07-05] MEDS: Insulin Lispro 100 UNIT/ML 3 ML VIAL SUBCUT ×4 (11:45→16:40)
--- NOTE | 2023-07-05 12:20 | MHC.CM.PN ---
Addendum entered by Margot Leon 07/05/23 13:20: Second IMM given 07/05. Original Note: Per MD, pt is medically cleared for D/C back to [facility] for LTC. Transport set up via BLS/[facility] at 5pm.
--- NOTE | 2023-07-05 14:45 | PM.DS ---
DS: Providers Provider Date of Service: 07/05/23 Date of admission: 07/01/23 22:41 Primary care physician: Tita Bal MD Consults: 07/02/23 09:49 Consult to Pulmonology Routine Consulting Provider: [facility] Pulmonology Services Reason for consultation: acute repiratory failure /copd Has provider been notified: No 07/02/23 11:29 Consult to Psychiatry Routine Consulting Provider: Psych Covering Reason for consultation: confusion/? multiple psych meds Has provider been notified: No 07/02/23 11:45 Consult to Infectious Diseases Routine Consulting Provider: [facility] Infectious Disease Reason for consultation: RESTRICTED ABX 07/02/23 13:25 Consult to Critical Care Routine Consulting Provider: Rosa Saxena Reason for consultation: Level of care Has provider been notified: No DS: Diagnosis Discharge Diagnosis (1) Obesity hypoventilation syndrome: Status: Acute (2) Acute and chronic respiratory failure with hypercapnia: Status: Acute (3) Morbid obesity: Status: Acute (4) Urinary tract infection: Status: Acute DS: Summary Hospital Course Hospital Course: Admission note HPI This is a 62-year-old female with pertinent history of chronic hypoxemic hypercarbic respiratory failure due to COPD and OHS on 2-3 L supplemental oxygen at baseline and home BiPAP, congestive heart failure with preserved ejection fraction, mood disorder, mixed hyperlipidemia, insulin-dependent diabetes mellitus, essential hypertension who was sent to the emergency department for evaluation of hypoxemia. Patient does admit dyspnea and wheezing. She states she does not like to use her mask at home for breathing. Noted previous compliance issues and recurrent admissions for acute on chronic hypoxemic hypercarbic respiratory failure. Patient was brought in from [facility] where staff found him to be hypoxemic on her baseline supplemental oxygen. Patient denies fever, chills, chest discomfort, abdominal pain, changes in bowel habits. Does have increased urgency and hesitancy. Hospital course The patient was admitted to the ICU for BiPAP as she became more lethargic and hypoxic on the medical floors. Found to be in hypoxic hypercapnic failure requiring rescue BiPAP with good response. # metabolic encephalopathy resolved as it was a result of respiratory failure. back to baseline now. She will need to use BiPap everynight and with naps. # acute on chronic mixed respiratory failure, in the setting of morbid obesity, OHS, and COPD, improved with BiPAP, duo-nebs, methylprednisolone and antibiotics. To be discharged on Azithromycin and Ceftin. # UTI Treated with antibiotics. to be discharged on Ceftin. Continue antibiotics as prescribed Continue Prednisone taper as prescribed To use BiPAP everynight and with naps of 16/8 and 2-3L of O2 Time Spent with Patient Time attestation: Total time managing care of this patient today ____ minutes. Discharge coordination time: Greater than 30 minutes Quality: Safe Use of Opioids Does Pt have an Active Cancer Diagnosis on the Problem List?: No Quality: Stroke Does the patient have a stroke diagnosis?: No Physical Exam Vital Signs: Vital Signs: Last Vital Signs Temp 97.3 F 07/05/23 11:03 Pulse 87 07/05/23 11:03 Resp 20 07/05/23 11:03 BP 140/72 H 07/05/23 11:03 Pulse Ox 90 L 07/05/23 11:03 O2 Del Method Nasal Cannula 07/05/23 11:03 O2 Flow Rate 4 07/05/23 11:03 FiO2 28 07/05/23 08:00 Oxygen Flow Rate 4 07/01/23 20:34 BMI result Body Mass Index 60.5 Const: Other: Constitutional : Awake, interactive, not in distress Neck : Normal inspection, Supple Cardiovascular : RRR, no JVP, no lower extremity edema Respiratory : good bilateral air entry, no crackles, wheezes or rhonchi Gastrointestinal: soft, lax, Normal bowel sounds, Non tender Skin : Warm, Dry, stage 0-1 saccral skin irritation with no skin openings or drainage. Neurological : Alert & oriented x3, No focal deficit DS: Data Data Completed and Pending Completed studies during hospitalization [Text1]: Procedures Assistance with Respiratory Ventilation, Less than 24 Consecutive Hours, Continuous Positive Airway Pressure (06/01/23) Insertion of Endotracheal Airway into Trachea, Via Natural or Artificial Opening (11/18/21) Insertion of Infusion Device into Superior Vena Cava, Percutaneous Approach (11/18/21) Introduction of Vasopressor into Peripheral Vein, Percutaneous Approach (11/18/21) Respiratory Ventilation, 24-96 Consecutive Hours (11/18/21) Ultrasonography of Superior Vena Cava, Guidance (11/18/21) Labs on day of discharge: Laboratory Results - last 24 hr 07/04/23 07/04/23 07/04/23 16:41 19:52 22:42 WBC RBC Hgb Hct MCV MCH MCHC RDW Plt Count MPV Absolute Nucleated RBC Nucleated RBC % (auto) VBG pH VBG pCO2 VBG pO2 VBG HCO3 VBG O2 Saturation VBG Base Excess Sodium Potassium Chloride Carbon Dioxide Anion Gap BUN Creatinine Estim Creat Clear Calc Estimated GFR POC Glucose 397 H* 357 H* 291 H Random Glucose Calcium 07/05/23 07/05/23 07/05/23 05:48 07:09 08:15 WBC 5.7 RBC 4.43 Hgb 12.2 Hct 40.1 MCV 90.5 MCH 27.5 MCHC 30.4 L RDW 15.4 Plt Count 213 MPV 10.8 Absolute Nucleated RBC 0.000 Nucleated RBC % (auto) 0.0 VBG pH 7.48 H VBG pCO2 46 VBG pO2 84 VBG HCO3 34 H VBG O2 Saturation 96.0 VBG Base Excess 9.6 Sodium 139 Potassium 3.8 Chloride 99 Carbon Dioxide 29 Anion Gap 15 BUN 39 H Creatinine 0.72 Estim Creat Clear Calc 113.6 Estimated GFR > 60 POC Glucose 140 H Random Glucose 138 H Calcium 8.7 07/05/23 07/05/23 08:33 11:12 WBC RBC Hgb Hct MCV MCH MCHC RDW Plt Count MPV Absolute Nucleated RBC Nucleated RBC % (auto) VBG pH 7.49 H VBG pCO2 44 VBG pO2 118 VBG HCO3 34 H VBG O2 Saturation 99.0 VBG Base Excess 9.8 Sodium Potassium Chloride Carbon Dioxide Anion Gap BUN Creatinine Estim Creat Clear Calc Estimated GFR POC Glucose 403 H* Random Glucose Calcium Preliminary micro results at discharge 07/01/23 20:59 Blood Culture - Preliminary Blood - Venous No growth after 48 hours. 07/01/23 20:59 Blood Culture - Preliminary Blood - Venous No growth after 48 hours. Imaging Chest x-ray: Radiologist's impression: ITS Impressions Chest X-Ray 07/01/23 21:53 IMPRESSION: The lung volumes limits evaluation. Diffuse increased markings probably chronic and/or technical. No definitive evidence for active cardiopulmonary disease. Head CT 07/02/23 13:19 IMPRESSION: 1. There are no acute bleeds or territorial infarcts. No masses are demonstrated. 2. There are chronic microvascular ischemic changes and there is diffuse volume loss. 3. There is opacification of a posterior left ethmoid air cell which is enlarging compared to prior imaging. This may be consistent with a proteinaceous cyst. Recommend ENT consultation. 4. The study redemonstrates an extraconal nodule in the posteromedial left orbit, which appears stable. Discharge Plan Discharge Anticipated Discharge Date/Time: 07/05/23 14:30 Patient Disposition: [facility] Discharge Diagnosis: Respiratory failure UTI Referrals: [facility] [Outside] - 1 Week Tita Bal MD [Primary Care Provider] - 1 Week Discharge Medications: New azithromycin 500 mg tablet 500 mg PO DAILY 3 Days Qty: 3 0RF cefuroxime axetil 500 mg tablet 500 mg PO BID Qty: 6 0RF prednisone 10 mg tablet See Taper PO DAILY Qty: 30 0RF Taper: Prednisone 40 mg daily for 3 Days and 0 Hour 30 mg daily for 3 Days and 0 Hour 20 mg daily for 3 Days and 0 Hour 10 mg daily for 3 Days and 0 Hour Continued furosemide 40 mg Tablet 40 mg PO DAILY Qty: 30 0RF Protocol: Hold for SBP< HOLD for SBP < : 90 ipratropium-albuterol 0.5 mg-3 mg(2.5 mg base)/3 mL Solution For Nebulization 3 ml INHALATION TID PRN (Reason: Wheezing) potassium chloride 10 mEq Tablet Extended Release 10 meq PO DAILY Hold Instructions: Recheck K level in 1 week to decide if needed or not. Rx Instructions: recheck K level in 1 week to decide if needed or not. Culturelle 10 billion cell Capsule 1 cap PO BID bupropion HCl 150 mg tablet extended release 24 hr 1 tab PO DAILY Rx Instructions: take with 300mg; tdd 450mg magnesium hydroxide [Milk of Magnesia] 400 mg/5 mL Suspension 30 ml PO DAILY PRN (Reason: Constipation) Rx Instructions: USE IF NO BOWEL MOVEMENT FOR 3 DAYS Fleet Enema 19-7 gram/118 mL Enema 118 ml MS DAILY PRN (Reason: Constipation) Rx Instructions: IF NO BOWEL MOVEMENT 8 HOURS AFTER BISACODYL fluticasone propion-salmeterol [AirDuo RespiClick] 113-14 mcg/actuation aerosol powdr breath activated 1 inh inhalation BID Rx Instructions: rinse mouth after use AND SPIT OUT atorvastatin 80 mg Tablet 80 mg PO BEDTIME sennosides [senna] 8.6 mg Tablet 17.2 mg PO BEDTIME acetaminophen 325 mg Tablet 650 mg PO Q4H PRN (Reason: Fever Or Pain) polyethylene glycol 3350 [Miralax] 17 gram Powder In Packet 17 g PO DAILY PRN (Reason: Constipation) tizanidine 4 mg Tablet 4 mg PO BEDTIME PRN (Reason: Muscle Spasm) sertraline 100 mg Tablet 200 mg PO DAILY melatonin 3 mg Tablet 3 mg PO BEDTIME ferrous sulfate 325 mg (65 mg iron) Tablet 325 mg PO DAILY insulin lispro 100 unit/mL Insulin Pen See Protocol SUBCUT QIDACHS Protocol: Insulin Correction Scale Less than or equal to 110 ---- Give (units): 0 111 to 150 Give (units): 0 151 to 200 Give (units): 0 201 to 250 Give (units): 4 251 to 300 Give (units): 6 301 to 350 Give (units): 8 Greater than 350 Give (units): 10 Call MD if Blood Glucose > : 350 Rx Instructions: SLIDING SCALE IF BLOOD GLUCOSE GREATER THAN 400, GIVE 12 UNITS AND NOTIFY MD amlodipine 5 mg Tablet 5 mg PO DAILY 30 Days Qty: 30 0RF Protocol: Hold for SBP< HOLD for SBP < : 90 aspirin 81 mg Tablet,Chewable 81 mg PO DAILY acetazolamide 250 mg Tablet 500 mg PO BID Qty: 60 0RF aripiprazole 2 mg tablet 2 mg PO DAILY Jardiance 10 mg Tablet 10 mg PO DAILY 30 Days Qty: 30 0RF losartan 25 mg tablet 25 mg PO DAILY cholecalciferol (vitamin D3) 25 mcg (1,000 unit) Tablet 25 mcg PO DAILY olopatadine 0.2 % Drops 1 drp OPHTHALMIC (EYE) QSHIFT megestrol 400 mg/10 mL (40 mg/mL) suspension 400 mg PO TID insulin glargine [Lantus U-100 Insulin] 100 unit/mL solution 18 unit subcut DAILY metformin 500 mg tablet 500 mg PO BID Ozempic 0.25 mg or 0.5 mg (2 mg/3 mL) pen injector 0.5 mg subcut WE Rx Instructions: CHANGE TO 0.50 MG STARTING 01/22/23 bisacodyl 10 mg suppository 10 mg MS DAILY PRN (Reason: Constipation) Rx Instructions: GIVE IF NO RESULT FROM MILK OF MAGNESIA cyanocobalamin (vitamin B-12) 1,000 mcg capsule 1,000 mcg PO DAILY bupropion HCl 300 mg tablet extended release 24 hr 300 mg PO DAILY Rx Instructions: take with 150mg dose; tdd 450mg Discharge Orders: Discharge Order (Routine); Ordered 07/05/23 Ordered By: Tom Batista Diet: Advance to usual diet Activity on Discharge: As tolerated Stand Alone Forms: Patient Portal Discharge page Care Plan Goals: Read below Health Concerns: Read below Plan of Treatment: Read below Assessment: Continue antibiotics as prescribed Continue Prednisone taper as prescribed To use BiPAP everynight and with naps of 16/8 and 2-3L of O2 Discharge Date/Time: 07/05/23 18:39
[2023-07-05 14:49] VITALS: BP 172/80; PULSE 84; RESP 20; TEMP 36.7; O2SAT 91
[2023-07-05] MEDS: Azithromycin 500 MG in 0.9 % Sodium Chloride 250 ML 125 MG IV (15:10)
[2023-07-05 16:06] LABS: Glucose, Whole Blood 357 mg/dL (60-115)
[2023-07-05] MEDS: Albuterol/Iprat 2.5/0.5MG 3 ML AMPUL.NEB INHALE (16:40)
[2023-07-05 16:42] VITALS: PULSE 84; RESP 18; O2SAT 91
== END 2023-07-05 18:39 | disposition skilled nursing facility (03) | DRG 190 ==
LOC: HO.ED 21:30 → HO.EDOVER 22:42 → HO.S3 07-02 13:52 → HO.ICU 07-02 14:31 → HO.IMC 07-04 15:17
PROVIDERS: Internal Medicine; Internal Medicine Critical Care Medicine; Physician Assistant Medical; Admitting Provider Student in an Organized Health Care Education/Training Program; Emergency Provider Student in an Organized Health Care Education/Training Program; PCP Internal Medicine; Visit Provider Student in an Organized Health Care Education/Training Program
DX: J44.1 Chronic obstructive pulmonary disease with (acute) exacerbation (principal); A41.9 Sepsis, unspecified organism; G92.8 Other toxic encephalopathy; J96.21 Acute and chronic respiratory failure with hypoxia; J96.22 Acute and chronic respiratory failure with hypercapnia; N39.0 Urinary tract infection, site not specified; I50.32 Chronic diastolic (congestive) heart failure; E66.2 Morbid (severe) obesity with alveolar hypoventilation; Z68.44 Body mass index [BMI] 60.0-69.9, adult; E11.65 Type 2 diabetes mellitus with hyperglycemia; L89.312 Pressure ulcer of right buttock, stage 2; L89.322 Pressure ulcer of left buttock, stage 2; I49.5 Sick sinus syndrome; Z95.0 Presence of cardiac pacemaker; B96.20 Unspecified Escherichia coli [E. coli] as the cause of diseases classified elsewhere; Z20.822 Contact with and (suspected) exposure to COVID-19; Z91.148 Patient's other noncompliance with medication regimen for other reason; Z91.040 Latex allergy status; Z99.81 Dependence on supplemental oxygen; Z79.51 Long term (current) use of inhaled steroids; Z79.82 Long term (current) use of aspirin; Z79.84 Long term (current) use of oral hypoglycemic drugs; Z79.899 Other long term (current) drug therapy
CPT/HCPCS: 36415; 70450; 71045; 80048; 80053; 81001; 81003; 82803; 82947; 83605; 83735; 83880; 84100; 85025; 85027; 85610; 87040; 87086; 87088; 87186; 87502; 87635; 93005; 94640; 94660; 99285; C1758; J0456; J0696; J1650; J1940; J2060; J2185; J2359; J2920; J2930; J3475

== ENCOUNTER → 2023-07-01 22:41 | Outpatient (BNV) | payer OTHER, MEDICARE, MEDICAID, SELFPAY | PROVIDERS: Admitting Provider Student in an Organized Health Care Education/Training Program; Emergency Provider Student in an Organized Health Care Education/Training Program; PCP Internal Medicine; Visit Provider Internal Medicine | DX: J96.22 Acute and chronic respiratory failure with hypercapnia (principal); A41.9 Sepsis, unspecified organism | CPT/HCPCS: 99222 ==

== ENCOUNTER → 2023-07-01 22:41 | Outpatient (BNV) | payer OTHER, MEDICARE, MEDICAID, SELFPAY | PROVIDERS: Admitting Provider Student in an Organized Health Care Education/Training Program; Emergency Provider Student in an Organized Health Care Education/Training Program; PCP Internal Medicine; Visit Provider Internal Medicine | DX: E66.2 Morbid (severe) obesity with alveolar hypoventilation (principal); J96.22 Acute and chronic respiratory failure with hypercapnia | CPT/HCPCS: 99222 ==

== ENCOUNTER → 2023-07-01 22:41 | Outpatient (BNV) | payer MEDICAID, SELFPAY | PROVIDERS: Admitting Provider Student in an Organized Health Care Education/Training Program; Emergency Provider Student in an Organized Health Care Education/Training Program; PCP Internal Medicine; Visit Provider Internal Medicine Critical Care Medicine | DX: J96.21 Acute and chronic respiratory failure with hypoxia (principal); J96.22 Acute and chronic respiratory failure with hypercapnia; E66.2 Morbid (severe) obesity with alveolar hypoventilation; N39.0 Urinary tract infection, site not specified | CPT/HCPCS: 99291; 99497 ==

== ENCOUNTER → 2023-07-01 22:41 | Outpatient (BNV) | payer OTHER, MEDICARE, MEDICAID, SELFPAY | PROVIDERS: Admitting Provider Student in an Organized Health Care Education/Training Program; Emergency Provider Student in an Organized Health Care Education/Training Program; PCP Internal Medicine; Visit Provider Student in an Organized Health Care Education/Training Program | DX: J96.22 Acute and chronic respiratory failure with hypercapnia (principal); E66.2 Morbid (severe) obesity with alveolar hypoventilation; Z68.44 Body mass index [BMI] 60.0-69.9, adult; N39.0 Urinary tract infection, site not specified | CPT/HCPCS: 99222; 99233; 99239 ==

== ENCOUNTER 2023-09-06 21:14 | Inpatient (IN) | payer MEDICARE, MEDICAID, SELFPAY ==
--- NOTE | ~2023-09-06 | XR_ITS ---
EXAMINATION: XR CHEST CLINICAL INFORMATION: No acute COMPARISON: 07/01/2023 TECHNIQUE: Frontal view of the chest was obtained. FINDINGS: Low lung volumes and bibasilar streaky opacities. There are some patchy opacities left midlung. No large pleural effusion or pneumothorax. Heart size and pulmonary vascularity exaggerated by portable technique and low lung volumes. XR/XR chest 1V IMPRESSION: * Low lung volumes and bibasilar streaky opacities, likely atelectasis. * Patchy opacities left midlung could represent subsegmental atelectasis or infiltrate.
[2023-09-06 21:21] VITALS: BP 120/73; BP 121/63; PULSE 72; PULSE 78; RESP 18; TEMP 36.7; O2SAT 87; BMI 46.8
[2023-09-06 21:26] VITALS: O2SAT 88
--- NOTE | 2023-09-06 22:11 | ED.GENADULT ---
HPI - General Adult General Chief complaint: General Medical Stated complaint: SLEEPY PER SNF PER EMS Time Seen by Provider: 09/06/23 22:05 Source: patient, EMS and RN notes reviewed Mode of arrival: EMS Limitations: no limitations History of Present Illness HPI narrative: 62-year-old female with history of COPD, chronic respiratory failure with hypoxia and hypercarbia on 2-3L of supplemental oxygen, SMILEY on bipap, DNI, obesity hypoventilation, HFpEF, recurrent admissions for acute on chronic respiratory failure comes in for increased lethargy since yesterday patient had labs done earlier today with normal WBC count and chemistry does have a history of E coli UTI in 07/07. No cough no shortness of breath no abdominal pain Related Data Home Medications Medication Instructions Recorded Confirmed acetaminophen 325 mg tablet 650 mg PO Q4H PRN Fever Or Pain 11/18/21 07/01/23 atorvastatin 80 mg tablet 80 mg PO BEDTIME 11/18/21 07/01/23 ferrous sulfate 325 mg (65 mg 325 mg PO DAILY 11/18/21 07/01/23 iron) tablet insulin lispro 100 unit/mL See Protocol subcut QIDACHS 11/18/21 07/01/23 subcutaneous pen melatonin 3 mg tablet 3 mg PO BEDTIME 11/18/21 07/01/23 polyethylene glycol 3350 17 gram 17 g PO DAILY PRN Constipation 11/18/21 07/01/23 oral powder packet (Miralax) sennosides 8.6 mg tablet (senna) 17.2 mg PO BEDTIME 11/18/21 07/01/23 sertraline 100 mg tablet 200 mg PO DAILY 11/18/21 07/01/23 tizanidine 4 mg tablet 4 mg PO BEDTIME PRN Muscle Spasm 11/18/21 07/01/23 aspirin 81 mg chewable tablet 81 mg PO DAILY 01/05/22 07/01/23 bupropion HCl 300 mg 24 hr tablet, 300 mg PO DAILY 04/09/22 07/01/23 extended release Lactobacillus rhamnosus GG 10 1 cap PO BID 10/09/22 07/01/23 billion cell capsule (Culturelle) bupropion HCl 150 mg 24 hr tablet, 1 tab PO DAILY 10/09/22 07/01/23 extended release ipratropium 0.5 mg-albuterol 3 mg 3 ml inhalation TID PRN Wheezing 10/09/22 07/01/23 (2.5 mg base)/3 mL nebulization soln potassium chloride 10 mEq 10 meq PO DAILY 10/09/22 07/01/23 tablet,extended release bisacodyl 10 mg rectal suppository 10 mg [place] DAILY PRN Constipation 10/21/22 07/01/23 fluticasone 113 mcg-salmeterol 14 1 inh inhalation BID 11/09/22 07/01/23 mcg/actuation breath activated powdr (AirDuo RespiClick) magnesium hydroxide 400 mg/5 mL 30 ml PO DAILY PRN Constipation 11/09/22 07/01/23 oral suspension (Milk of Magnesia) sodium phosphates 19 gram-7 118 ml [place] DAILY PRN Constipation 11/09/22 07/01/23 gram/118 mL enema (Fleet Enema) metformin 500 mg tablet 500 mg PO BID 12/27/22 07/01/23 semaglutide 0.25 mg or 0.5 mg (2 0.5 mg subcut WE 12/27/22 07/01/23 mg/3 mL) subcutaneous pen injector (Ozempic) aripiprazole 2 mg tablet 2 mg PO DAILY 01/12/23 07/01/23 cholecalciferol (vitamin D3) 25 25 mcg PO DAILY 04/04/23 07/01/23 mcg (1,000 unit) tablet insulin glargine 100 unit/mL 18 unit subcut DAILY 04/04/23 07/01/23 subcutaneous solution (Lantus U-100 Insulin) losartan 25 mg tablet 25 mg PO DAILY 04/04/23 07/01/23 megestrol 400 mg/10 mL (40 mg/mL) 400 mg PO TID 04/04/23 07/01/23 oral suspension olopatadine 0.2 % eye drops 1 drp ophthalmic (eye) QSHIFT 04/04/23 07/01/23 cyanocobalamin (vitamin B-12) 1,000 mcg PO DAILY 04/21/23 07/01/23 1,000 mcg capsule Previous Rx's Medication Instructions Recorded amlodipine 5 mg tablet 5 mg PO DAILY 30 days #30 tabs 11/26/21 furosemide 40 mg tablet 40 mg PO DAILY #30 tabs 04/05/22 acetazolamide 250 mg tablet 500 mg (2 x 250 mg) PO BID #60 tabs 01/06/23 empagliflozin 10 mg tablet 10 mg PO DAILY 30 days #30 tabs 01/17/23 (Jardiance) azithromycin 500 mg tablet 500 mg PO DAILY 3 days #3 tabs 07/05/23 cefuroxime axetil 500 mg tablet 500 mg PO BID #6 tabs 07/05/23 prednisone 10 mg tablet See Taper PO DAILY #30 tabs 07/05/23 Allergies Allergy/AdvReac Type Severity Reaction Status Date / Time latex Allergy Unknown Unknown Verified 09/06/23 21:26 adhesive tape AdvReac Unknown Unknown Verified 09/06/23 21:26 bupropion [From Wellbutrin] AdvReac Unknown Unknown Verified 09/06/23 21:26 ibuprofen AdvReac Unknown Unknown Verified 09/06/23 21:26 Review of Systems Review of Systems: Yes all other systems are reviewed and are negative COUNTS INCLUDE 234 BEDS AT THE [facility] Past Medical History Medical History Sepsis Acute and chronic respiratory failure with hypercapnia Morbid obesity Obesity hypoventilation syndrome Hypoventilation associated with obesity COPD (chronic obstructive pulmonary disease) Morbid obesity with BMI of 50.0-59.9, adult Acute and chronic respiratory failure Pressure injury of deep tissue of buttock Pressure ulcer, stage II, skin breakdown Hypertrophic nonobstructive cardiomyopathy Presence of permanent cardiac pacemaker Acute on chronic respiratory failure with hypoxia and hypercapnia Metabolic encephalopathy Acute and chronic respiratory failure with hypercapnia Urinary tract infection due to ESBL Klebsiella Respiratory failure Presence of permanent cardiac pacemaker Sick sinus syndrome Morbid obesity Heart block AV third degree PAD (peripheral artery disease) Diabetic ulcer of foot associated with diabetes mellitus due to underlying condition, with fat layer exposed Atelectasis of both lungs Respiratory failure with hypoxia and hypercapnia Hypoventilation associated with obesity syndrome SMILEY (obstructive sleep apnea) Morbid obesity Pulmonary embolism CHF (congestive heart failure) Clostridium difficile infection Hypertension Diabetes mellitus, type 2 Depression Arthritis Anemia Surgical History History of total knee replacement Social History Social History Household Members: Unknown / Unable to assess Housing: Unknown / Unable to assess [facility] Pt confused, unable to ascertain further Are you a primary patient care director to a significant other at home: No Do you presently have visiting nurse or other home services: Yes Unable to assess alcohol history related to: Unknown Alcohol intake: never Patient Tobacco Use Status: Former Tobacco user Quit Date: 30years ago Tobacco use type: Cigarette Cigarette Packs Per Day: 20 Cigarettes Per Day: 400.0 Years Smoked: 20 e-Cigarette/Vaping Use: Never Used Second Hand Smoke Exposure: No Substance Use Type: Unknown Advance Directives Date on File: 01/07/23 service: No Current occupational status: disabled Physical Exam ED Vital Signs: Vital Signs - 24 hr 09/06/23 21:21 09/06/23 21:26 09/06/23 23:07 Temperature 98.1 F 97.2 F Pulse Rate 78 75 Respiratory Rate 18 21 H Blood Pressure 121/63 126/63 Pulse Oximetry 87 L 88 L 95 Oxygen Delivery Method Nasal Cannula Nasal Cannula Room Air Oxygen Flow Rate 3 09/07/23 00:46 09/07/23 01:09 09/07/23 01:51 Temperature Pulse Rate 60 67 Respiratory Rate 18 11 L 16 Blood Pressure 110/65 95/56 L Pulse Oximetry 88 L 90 L Oxygen Delivery Method CPAP CPAP Oxygen Flow Rate 3 3 09/07/23 02:05 09/07/23 02:10 09/07/23 02:27 Temperature Pulse Rate 65 77 64 Respiratory Rate 15 14 Blood Pressure 82/50 L 92/48 L 115/67 Pulse Oximetry 87 L Oxygen Delivery Method CPAP Oxygen Flow Rate 3 09/07/23 02:53 Temperature Pulse Rate Respiratory Rate 14 Blood Pressure Pulse Oximetry Oxygen Delivery Method Oxygen Flow Rate BMI result Body Mass Index 46.8 Appearance: Alert. Oriented X3. No acute distress. Eyes: PERRLA, No Nystagmus ENT: Pharynx normal. Oral Mucosa dry Neck: Normal inspection. Neck supple. CVS: Normal heart rate and rhythm. Pulses normal. Respiratory: No respiratory distress. Equal air entry bilateral, no wheezing/rales/rhonchi Abdomen: Soft and nontender. Bowel sounds are present, no mass palpable, no CVA tenderness Skin: Skin warm and dry. Normal skin color. Normal skin turgor. Extremities: No lower extremity edema. No calf tenderness Neuro: Lethargic No motor deficit. No sensory deficit.No cerebellar signs , cranial nerves II-XII intact Medications Administered Generic Name Dose Route Start Last Admin Trade Name Mike PRN Reason Stop Dose Admin Enoxaparin Sodium 40 mg 09/07/23 04:00 09/07/23 04:14 Enoxaparin Sodium 40 Mg/0.4 Ml Syringe SUBCUT 40 mg DAILY ROSSY Administration Meropenem 1 gm/ Sodium 100 mls @ 200 mls/hr 09/07/23 04:00 09/07/23 04:53 Chloride IV Infused Q8H ROSSY Infusion Discontinued Medications Generic Name Dose Route Start Last Admin Trade Name Mike PRN Reason Stop Dose Admin Sodium Chloride 1,000 mls @ 999 mls/hr 09/06/23 22:13 09/07/23 01:03 Ns IV 09/06/23 23:13 Infused .Q1H1M ONE Infusion Ceftriaxone Sodium 2 gm/ 50 mls @ 100 mls/hr 09/07/23 00:10 09/07/23 00:46 Sodium Chloride IV 09/07/23 00:39 Infused ONCE ONE Infusion Sodium Chloride 1,000 mls @ 999 mls/hr 09/07/23 02:04 09/07/23 04:07 Ns IV 09/07/23 03:04 Infused .Q1H1M ONE Infusion Morphine Sulfate 4 mg 09/07/23 01:41 09/07/23 01:48 Morphine Sulfate 4 Mg/Ml Cartridge IVPUSH 09/07/23 01:42 4 mg ONCE ONE Administration Protocol Medical Decision Making Medical Decision Making [facility] Narrative: Patient DNR DNI with hypercapnic hypoxic respiratory failure with change in mental status with UTI in metabolic encephalopathy placed on BiPAP case discussed with catalyst supervisor PA confirm the patient code status with her do not want any aggressive treatment except for noninvasive ventilation and medications. Will admit to medical floor for supportive treatment placed on BiPAP Differential Diagnosis Differential Diagnoses: The differential diagnosis associated with the presentation includes Hypoxic hypercapnic failure/metabolic encephalopathy/UTI/bacteremia/pneumonia Admission/Observation Consideration of admission/observation: Escalation of care including admission/observation considered Consult Healthcare Provider Management of the patient was discussed with: Hospitalist Lab Data [facility] Lab Attestation statement: I reviewed the patient's lab results. 09/07/23 07:12 09/06/23 22:06 Labs: Lab Results 09/06/23 09/06/23 09/06/23 Range/Units 22:06 22:50 22:57 WBC 8.3 (4.8-10.8) X10*3/uL RBC 4.36 (4.20-5.50) X10*6/uL Hgb 12.5 (12.0-16.0) g/dl Hct 45.0 (37.0-47.0) % MCV 103.2 H (80.0-98.0) fL MCH 28.7 (27.0-33.0) pg MCHC 27.8 L (31.0-35.0) g/dl RDW 15.4 (11.0-16.0) % Plt Count 205 (160-400) X10*3/uL MPV 10.5 (9.4-12.3) fL Immature Gran % (Auto) 0.5 H (0.0-0.4) % Neut % (Auto) 70.5 (45-73) % Lymph % (Auto) 19.9 L (20-40) % [place] % (Auto) 7.3 (2-11) % Eos % (Auto) 1.3 (0-4) % Baso % (Auto) 0.5 (0-2) % Lymph # (Auto) 1.7 (1.2-4.9) X10*3/uL [place] # (Auto) 0.6 (0.1-1.2) X10*3/uL Eos # (Auto) 0.1 (0.0-0.4) X10*3/uL Baso # (Auto) 0.0 (0.0-0.2) X10*3/uL Abs Immat Gran (auto) 0.04 H (0.00-0.03) X10*3/uL Absolute Neuts (auto) 5.9 (2.0-8.3) x10*3/uL Absolute Nucleated RBC 0.030 H (0.0-0.012) X10*3/uL Nucleated RBC % (auto) 0.4 H (0.0-0.2) /100WBC VBG pH 7.20 L* (7.32-7.43) VBG pCO2 91 mmHg VBG pO2 103 mmHg VBG HCO3 36 H (22-26) mmol/L VBG O2 Saturation 99.0 % VBG Base Excess 5.2 mmol/L Sodium 149 H (135-145) mmol/L Potassium 4.1 (3.3-5.1) mmol/L Chloride 105 (96-108) mmol/L Carbon Dioxide 36 H (22-29) mmol/L Anion Gap 12 (12-20) BUN 29 H (9-16) mg/dL Creatinine 0.91 (0.5-1.4) mg/dL Estim Creat Clear Calc 100.1 Estimated GFR > 60 Random Glucose 151 H (60-115) mg/dL Lactic Acid 0.4 L (0.5-2.0) mmol/L Calcium 9.5 D (8.4-10.2) mg/dL Total Bilirubin 0.2 (0.0-1.0) mg/dL AST 10 (5-31) U/L ALT 8 (0-31) U/L Alkaline Phosphatase 59 (39-117) U/L Total Protein 7.3 (6.5-8.0) g/dL Albumin 3.8 (3.5-5.0) g/dL Urine Color Urine Appearance Urine pH (5.0-9.0) Ur Specific [place] (1.005-1.025) Urine Protein (Neg-Trace) mg/dL Urine Glucose (UA) (Negative) mg/dL Urine Ketones (Negative) mg/dL Urine Blood (Negative) Urine Nitrite (Negative) Ur Leukocyte Esterase (Negative) Urine RBC (0-2) /HPF Urine WBC (0-5) /HPF Ur Squamous Epith Cells (0-2) /HPF Other Crystals Urine Bacteria (None Seen) Hyaline Casts (0-2) /LPF Influenza Type A (PCR) NEGATIVE (Negative) Influenza Type B (PCR) NEGATIVE (Negative) RSV RNA Qual (PCR) NEGATIVE (Negative) SARS-CoV-2 RNA (RT-PCR) NEGATIVE (Negative) 09/06/23 09/07/23 Range/Units 23:19 02:10 WBC (4.8-10.8) X10*3/uL RBC (4.20-5.50) X10*6/uL Hgb (12.0-16.0) g/dl Hct (37.0-47.0) % MCV (80.0-98.0) fL MCH (27.0-33.0) pg MCHC (31.0-35.0) g/dl RDW (11.0-16.0) % Plt Count (160-400) X10*3/uL MPV (9.4-12.3) fL Immature Gran % (Auto) (0.0-0.4) % Neut % (Auto) (45-73) % Lymph % (Auto) (20-40) % [place] % (Auto) (2-11) % Eos % (Auto) (0-4) % Baso % (Auto) (0-2) % Lymph # (Auto) (1.2-4.9) X10*3/uL [place] # (Auto) (0.1-1.2) X10*3/uL Eos # (Auto) (0.0-0.4) X10*3/uL Baso # (Auto) (0.0-0.2) X10*3/uL Abs Immat Gran (auto) (0.00-0.03) X10*3/uL Absolute Neuts (auto) (2.0-8.3) x10*3/uL Absolute Nucleated RBC (0.0-0.012) X10*3/uL Nucleated RBC % (auto) (0.0-0.2) /100WBC VBG pH 7.30 L (7.32-7.43) VBG pCO2 69 mmHg VBG pO2 78 mmHg VBG HCO3 34 H (22-26) mmol/L VBG O2 Saturation 98.0 % VBG Base Excess 5.8 mmol/L Sodium (135-145) mmol/L Potassium (3.3-5.1) mmol/L Chloride (96-108) mmol/L Carbon Dioxide (22-29) mmol/L Anion Gap (12-20) BUN (9-16) mg/dL Creatinine (0.5-1.4) mg/dL Estim Creat Clear Calc Estimated GFR Random Glucose (60-115) mg/dL Lactic Acid (0.5-2.0) mmol/L Calcium (8.4-10.2) mg/dL Total Bilirubin (0.0-1.0) mg/dL AST (5-31) U/L ALT (0-31) U/L Alkaline Phosphatase (39-117) U/L Total Protein (6.5-8.0) g/dL Albumin (3.5-5.0) g/dL Urine Color Yellow Urine Appearance Turbid Urine pH 6.5 (5.0-9.0) Ur Specific [place] >= 1.030 H (1.005-1.025) Urine Protein 30 (1+) H (Neg-Trace) mg/dL Urine Glucose (UA) >=1000 H (Negative) mg/dL Urine Ketones Negative (Negative) mg/dL Urine Blood Negative (Negative) Urine Nitrite Positive H (Negative) Ur Leukocyte Esterase Moderate (2+) H (Negative) Urine RBC 0-2 (0-2) /HPF Urine WBC >50 H (0-5) /HPF Ur Squamous Epith Cells 0-2 (0-2) /HPF Other Crystals Present Urine Bacteria 4+ (None Seen) Hyaline Casts 11-20 (0-2) /LPF Influenza Type A (PCR) (Negative) Influenza Type B (PCR) (Negative) RSV RNA Qual (PCR) (Negative) SARS-CoV-2 RNA (RT-PCR) (Negative) Independent Interpretation I performed an independent interpretation of an: Plain X-Ray Radiology Impression Discussion of test interpretation with radiology: I have reviewed the radiologist's reading. Critical Care Time Critical Care Time Critical Care Time: Yes Total Critical Care Time: 75 Attestation: The patient was critically ill with a high probability of imminent or life threatening deterioration. I spent greater than 80 minutes of discontinuous time evaluating the patient,delivering critical care at the bedside, discussing and evaluating pertinent data with consultants. Critical care time does not include time spent performing separately billable procedures or teaching. Total time spent performing critical care was 80 minutes. Discharge Plan Discharge Clinical Impression: Acute respiratory failure with hypoxia and hypercapnia, Acute metabolic encephalopathy Patient Disposition: Admitted As Inpatient Interventions: Admission Worksheet (ED) Last Done: 09/07/23 04:22 Discharge Date/Time: 09/07/23 05:39
--- NOTE | 2023-09-06 22:13 | ECG_ITS ---
Test Reason : SEPSIS Blood Pressure : / mmHG Vent. Rate : 071 BPM Atrial Rate : 071 BPM P-R Int : 178 ms QRS Dur : 182 ms QT Int : 496 ms P-R-T Axes : 078 -72 117 degrees QTc Int : 538 ms Normal sinus rhythm with sinus arrhythmia Left axis deviation Non-specific intra-ventricular conduction block Minimal voltage criteria for LVH, may be normal variant ( [place] product ) Abnormal ECG When compared with ECG of 01-JUL-2023 21:11, Non-specific intra-ventricular conduction block has replaced Left bundle branch block Referred By: Garret Stevenson Electronically Signed By:MAREN VIDALES MD
[2023-09-06 22:24] LABS: MANUAL DIFF FLAG NO
[2023-09-06 22:28] LABS: Basophils Percent Auto 0.5 % (0-2); Eosinophils Absolute Auto 0.1 X10*3/uL (0.0-0.4); Eosinophils Percent Auto 1.3 % (0-4); Hemoglobin 12.5 g/dl (12.0-16.0); Imm Gran Abs Auto 0.04 X10*3/uL (0.00-0.03); Imm Gran Pct Auto 0.5 % (0.0-0.4); Lymphocytes Absolute Auto 1.7 X10*3/uL (1.2-4.9); Lymphocytes Percent Auto 19.9 % (20-40); Mean Corpuscular HGB Conc 27.8 g/dl (31.0-35.0); Mean Corpuscular Hemoglobin 28.7 pg (27.0-33.0); Mean Corpuscular Volume 103.2 fL (80.0-98.0); Mean Platelet Volume 10.5 fL (9.4-12.3); Monocytes Absolute Auto 0.6 X10*3/uL (0.1-1.2); Monocytes Percent Auto 7.3 % (2-11); NRBC Pct Auto 0.4 /100WBC (0.0-0.2); Neutrophils Absolute Auto 5.9 x10*3/uL (2.0-8.3); Neutrophils Percent Auto 70.5 % (45-73); Platelet Count 205 X10*3/uL (160-400); Red Blood Count 4.36 X10*6/uL (4.20-5.50); Red Cell Distribution Width 15.4 % (11.0-16.0); White Blood Count 8.3 X10*3/uL (4.8-10.8)
[2023-09-06 22:43] LABS: Alanine Aminotransferase 8 U/L (0-31); Albumin Level 3.8 g/dL (3.5-5.0); Alkaline Phosphatase 59 U/L (39-117); Anion Gap 12 (12-20); Aspartate Amino Transferase 10 U/L (5-31); Bilirubin Total 0.2 mg/dL (0.0-1.0); Blood Urea Nitrogen 29 mg/dL (9-16); Calcium 9.5 mg/dL (8.4-10.2); Carbon Dioxide 36 mmol/L (22-29); Chloride 105 mmol/L (96-108); Creatinine Clr Calc Pharmacy 100.1; Estimated Glomerular Filt Rate > 60; Glucose Random 151 mg/dL (60-115); Potassium 4.1 mmol/L (3.3-5.1); Sodium 149 mmol/L (135-145); Total Protein 7.3 g/dL (6.5-8.0)
[2023-09-06 23:05] LABS: VBG Base Excess 5.2 mmol/L; VBG HCO3 36 mmol/L (22-26); VBG pCO2 91 mmHg; VBG pO2 103 mmHg
[2023-09-06 23:06] LABS: Venous Blood Gas Refer to POC result
[2023-09-06] MEDS: 0.9 % Sodium Chloride 1,000 ML 999 ML IV (23:06)
[2023-09-06 23:07] VITALS: BP 126/63; PULSE 75; RESP 21; TEMP 36.2; O2SAT 95
[2023-09-06 23:09] LABS: Lactic Acid 0.4 mmol/L (0.5-2.0)
[2023-09-06 23:26] LABS: Appearance Urine Turbid; Color Urine Yellow; Glucose Urine UA >=1000 mg/dL (Negative); Leukocyte Esterase Urine Moderate (2+) (Negative); Nitrite Urine Positive (Negative); PH 6.5 (5.0-9.0); Specific Gravity - Urine >= 1.030 (1.005-1.025); UMIC TRIGGER UACC YES; Urine Blood Negative (Negative); Urine Ketones Negative (Negative); Urine Protein 30 (1+) mg/dL (Neg-Trace)
[2023-09-06 23:36] LABS: Influenza A PCR NEGATIVE (Negative); Influenza B PCR NEGATIVE (Negative); Resp Syncy Virus RNA Qual PCR NEGATIVE (Negative); SARS COV2 PCR INHOUSE NEGATIVE (Negative)
[2023-09-06 23:38] LABS: Bacteria Urine 4+ (None Seen); Other Crystals Urine Present; RBC Urine 0-2 /HPF (0-2); Squamous Epithelial Cell Urine 0-2 /HPF (0-2); UACC Culture Trigger YES; WBC Urine >50 /HPF (0-5)
[2023-09-07] VITALS (15 sets, daily range): BP systolic 82–155; BP diastolic 48–84; PULSE 57–83; RESP 11–23; TEMP 36.2–36.6; O2SAT 87–94; BMI 46.8
[2023-09-07] MEDS: cefTRIAXone sodium 2 GM in 0.9 % Sodium Chloride 50 ML IV (00:16)
--- NOTE | 2023-09-07 00:25 | PC.NURSE ---
Resp at bedside with cpap per md order.
--- NOTE | 2023-09-07 01:24 | W.MHC.ACPN ---
Advanced Care Planning Note Advanced Care Planning Note Discussed with: other (hcp Miah Das) Time spent (in minutes): 20 Narrative: Patient's chart reviewed in detail, discussed with Dr. Saxena as well as with the ER physician Dr. Maldonado; patient clearly has respiratory acidosis due to noncompliance with her CPAP, hypercapnic encephalopathy. Patient was just started on BiPAP given her most recent gas with pH of 7.2 and CO2 of 90, mentally she is somewhat somnolent according to the ED physician. I have reviewed the patient's chart in detail, agree with BiPAP, however the patient is a DNR, DNI. Furthermore I had a discussion with the patient's . Miah Das who is aware that the patient is in the hospital and is aware of the patient's MOLST form and wishes, by no means they would want her resuscitated or intubated, they are aware that other than providing positive pressure, we would not be able to do any they mL for her if she fails and he is okay with it; if anything he asked that if she gets really sick; he would want to be notified to make sure that she does not suffer and make her comfortable otherwise if she does improve then would continue with her normal care and life. The above-mentioned information will be communicated to the ER physician as well as the hospitalist for the patient needs to be admitted in an inpatient setting but not the ICU, she could easily have stable BiPAP with settings of 16/6, 20, would suggest titrating the FiO2 to a O2 sat of 90% to avoid further oxygen poisoning. Repeat blood gases in 4-6 hours. Case discussed with Dr. Saxena Total critical care time reviewing this patient's chart, discussion with family members and completion of paperwork 20 minutes
[2023-09-07] MEDS: Morphine Sulfate 4 MG/ML CARTRIDGE IVPUSH (01:48)
--- NOTE | 2023-09-07 01:50 | PC.NURSE ---
Pt restless at the bedside. Removing and disconnecting cpap cords. Not redirectable. made aware. Pt medicated as ordered. Resp at bedside.
[2023-09-07] MEDS: 0.9 % Sodium Chloride 1,000 ML 999 ML IV (02:07)
[2023-09-07 02:20] LABS: VBG Base Excess 5.8 mmol/L; VBG HCO3 34 mmol/L (22-26); VBG pCO2 69 mmHg; VBG pO2 78 mmHg
[2023-09-07 02:21] LABS: Venous Blood Gas Refer to POC result
--- NOTE | 2023-09-07 03:04 | P.HPHOSP_ITS ---
History of Present Illness Date of Service: 09/07/23 Chief Complaint: Altered mentation This is a 62-year-old female with pertinent history of chronic hypoxemic hypercarbic respiratory failure due to COPD and OHS on 2-3 L supplemental oxygen at baseline and home BiPAP, congestive heart failure with preserved ejection fraction, mood disorder, mixed hyperlipidemia, insulin-dependent diabetes mellitus, essential hypertension who was sent from outside facility for lethargy. Patient does not know why she is here. Unable to provide history. History obtained from ER provider and chart review. Noted previous compliance issues and recurrent admissions for acute on chronic hypoxemic hypercarbic respiratory failure due to noncompliance with home BiPAP. Unable to obtain review of systems. In the emergency department, patient was found to be in respiratory acidosis and ICU team consulted. After discussion with family and reinforcing that patient is DNR/DNI, it was suggested that patient paste on BiPAP. Respiratory acidosis improved with NIV. Patient was also found to have UTI. Review of Systems 2 Review of Systems: Yes Unobtainable due to mental status [facility] Medical History Sepsis Acute and chronic respiratory failure with hypercapnia Morbid obesity Obesity hypoventilation syndrome Hypoventilation associated with obesity COPD (chronic obstructive pulmonary disease) Morbid obesity with BMI of 50.0-59.9, adult Acute and chronic respiratory failure Pressure injury of deep tissue of buttock Pressure ulcer, stage II, skin breakdown Hypertrophic nonobstructive cardiomyopathy Presence of permanent cardiac pacemaker Acute on chronic respiratory failure with hypoxia and hypercapnia Metabolic encephalopathy Acute and chronic respiratory failure with hypercapnia Urinary tract infection due to ESBL Klebsiella Respiratory failure Presence of permanent cardiac pacemaker Sick sinus syndrome Morbid obesity Heart block AV third degree PAD (peripheral artery disease) Diabetic ulcer of foot associated with diabetes mellitus due to underlying condition, with fat layer exposed Atelectasis of both lungs Respiratory failure with hypoxia and hypercapnia Hypoventilation associated with obesity syndrome SMILEY (obstructive sleep apnea) Morbid obesity Pulmonary embolism CHF (congestive heart failure) Clostridium difficile infection Hypertension Diabetes mellitus, type 2 Depression Arthritis Anemia Surgical History History of total knee replacement Social History Household Members: Unknown / Unable to assess Housing: Unknown / [facility] confused, unable to ascertain further Are you a primary medicare interviewer to a significant other at home: No Do you presently have visiting nurse or other home services: Yes Unable to assess alcohol history related to: Unable to respond Alcohol intake: never Patient Tobacco Use Status: Former Tobacco user Quit Date: 30years ago Tobacco use type: Cigarette Cigarette Packs Per Day: 20 Cigarettes Per Day: 400.0 Years Smoked: 20 Smoked in Last 30 Days: No e-Cigarette/Vaping Use: Never Used Second Hand Smoke Exposure: No Use of substances other than those prescribed or required for medical reasons: No Substance Use Type: Unknown Advance Directives: Yes Advance Directives on File: Yes Advance Directives Date on File: 01/07/23 service: No Current occupational status: disabled Meds Allergies Allergy/AdvReac Type Severity Reaction Status Date / Time latex Allergy Unknown Unknown Verified 09/06/23 21:26 adhesive tape AdvReac Unknown Unknown Verified 09/06/23 21:26 bupropion [From Wellbutrin] AdvReac Unknown Unknown Verified 09/06/23 21:26 ibuprofen AdvReac Unknown Unknown Verified 09/06/23 21:26 Active Medications: Current Medications Sodium Chloride (Ns) 1,000 mls @ 999 mls/hr IV .Q1H1M ONE Stop: 09/07/23 03:04 Last Admin: 09/07/23 02:07 Dose: 999 mls/hr Home Medications Medication Instructions Recorded Confirmed Last Taken Type acetaminophen 325 mg tablet 650 mg PO Q4H PRN Fever Or Pain 11/18/21 07/01/23 Unknown History atorvastatin 80 mg tablet 80 mg PO BEDTIME 11/18/21 07/01/23 Unknown History ferrous sulfate 325 mg (65 mg 325 mg PO DAILY 11/18/21 07/01/23 Unknown History iron) tablet insulin lispro 100 unit/mL See Protocol subcut QIDACHS 11/18/21 07/01/23 Unknown History subcutaneous pen melatonin 3 mg tablet 3 mg PO BEDTIME 11/18/21 07/01/23 Unknown History polyethylene glycol 3350 17 gram 17 g PO DAILY PRN Constipation 11/18/21 07/01/23 Unknown History oral powder packet (Miralax) sennosides 8.6 mg tablet (senna) 17.2 mg PO BEDTIME 11/18/21 07/01/23 Unknown History sertraline 100 mg tablet 200 mg PO DAILY 11/18/21 07/01/23 Unknown History tizanidine 4 mg tablet 4 mg PO BEDTIME PRN Muscle Spasm 11/18/21 07/01/23 Unknown History aspirin 81 mg chewable tablet 81 mg PO DAILY 01/05/22 07/01/23 Unknown History bupropion HCl 300 mg 24 hr tablet, 300 mg PO DAILY 04/09/22 07/01/23 Unknown History extended release Lactobacillus rhamnosus GG 10 1 cap PO BID 10/09/22 07/01/23 Unknown History billion cell capsule (Culturelle) bupropion HCl 150 mg 24 hr tablet, 1 tab PO DAILY 10/09/22 07/01/23 Unknown History extended release ipratropium 0.5 mg-albuterol 3 mg 3 ml inhalation TID PRN Wheezing 10/09/22 07/01/23 Unknown History (2.5 mg base)/3 mL nebulization soln potassium chloride 10 mEq 10 meq PO DAILY 10/09/22 07/01/23 Unknown History tablet,extended release bisacodyl 10 mg rectal suppository 10 mg [place] DAILY PRN Constipation 10/21/22 07/01/23 Unknown History fluticasone 113 mcg-salmeterol 14 1 inh inhalation BID 11/09/22 07/01/23 Unknown History mcg/actuation breath activated powdr (AirDuo RespiClick) magnesium hydroxide 400 mg/5 mL 30 ml PO DAILY PRN Constipation 11/09/22 07/01/23 Unknown History oral suspension (Milk of Magnesia) sodium phosphates 19 gram-7 118 ml [place] DAILY PRN Constipation 11/09/22 07/01/23 Unknown History gram/118 mL enema (Fleet Enema) metformin 500 mg tablet 500 mg PO BID 12/27/22 07/01/23 Unknown History semaglutide 0.25 mg or 0.5 mg (2 0.5 mg subcut WE 12/27/22 07/01/23 Unknown History mg/3 mL) subcutaneous pen injector (Ozempic) aripiprazole 2 mg tablet 2 mg PO DAILY 01/12/23 07/01/23 Unknown History cholecalciferol (vitamin D3) 25 25 mcg PO DAILY 04/04/23 07/01/23 Unknown History mcg (1,000 unit) tablet insulin glargine 100 unit/mL 18 unit subcut DAILY 04/04/23 07/01/23 Unknown History subcutaneous solution (Lantus U-100 Insulin) losartan 25 mg tablet 25 mg PO DAILY 04/04/23 07/01/23 Unknown History megestrol 400 mg/10 mL (40 mg/mL) 400 mg PO TID 04/04/23 07/01/23 Unknown History oral suspension olopatadine 0.2 % eye drops 1 drp ophthalmic (eye) QSHIFT 04/04/23 07/01/23 Unknown History cyanocobalamin (vitamin B-12) 1,000 mcg PO DAILY 04/21/23 07/01/23 Unknown History 1,000 mcg capsule Physical Exam 2 Vital Signs and Narrative: Vital Signs: Last Vital Signs Temp 97.2 F 09/06/23 23:07 Pulse 64 09/07/23 02:27 Resp 14 09/07/23 02:53 BP 115/67 09/07/23 02:27 Pulse Ox 87 L 09/07/23 02:10 O2 Del Method CPAP 09/07/23 02:10 O2 Flow Rate 3 09/07/23 02:10 Oxygen Flow Rate 3 09/06/23 21:21 BMI result Body Mass Index 46.8 Middle-aged female lying in bed in mild distress on supplemental oxygen Neck supple, no JVD Regular rate and rhythm, distant heart sounds Decreased breath sounds at bases Abdomen soft nontender, no guarding, no rigidity Patient is lethargic and awakens to verbal stimulus, oriented to place and time ; no focal motor deficit Psych: Drowsy Bilateral nonpitting edema Results Labs 09/06/23 22:06 09/06/23 22:06 Labs: Laboratory Results - last 24 hr 09/06/23 09/06/23 09/06/23 22:06 22:50 22:57 MCV 103.2 H MCH 28.7 MCHC 27.8 L RDW 15.4 Plt Count 205 MPV 10.5 Immature Gran % (Auto) 0.5 H Neut % (Auto) 70.5 Lymph % (Auto) 19.9 L [place] % (Auto) 7.3 Eos % (Auto) 1.3 Baso % (Auto) 0.5 Lymph # (Auto) 1.7 [place] # (Auto) 0.6 Eos # (Auto) 0.1 Baso # (Auto) 0.0 Abs Immat Gran (auto) 0.04 H Absolute Neuts (auto) 5.9 Absolute Nucleated RBC 0.030 H Nucleated RBC % (auto) 0.4 H VBG pH 7.20 L* VBG pCO2 91 VBG pO2 103 VBG HCO3 36 H VBG O2 Saturation 99.0 VBG Base Excess 5.2 Anion Gap 12 Estim Creat Clear Calc 100.1 Estimated GFR > 60 Random Glucose 151 H Lactic Acid 0.4 L Calcium 9.5 D Total Bilirubin 0.2 AST 10 ALT 8 Alkaline Phosphatase 59 Total Protein 7.3 Albumin 3.8 Urine Color Urine Appearance Urine pH Ur Specific [place] Urine Protein Urine Glucose (UA) Urine Ketones Urine Blood Urine Nitrite Ur Leukocyte Esterase Urine RBC Urine WBC Ur Squamous Epith Cells Other Crystals Urine Bacteria Hyaline Casts Influenza Type A (PCR) NEGATIVE Influenza Type B (PCR) NEGATIVE RSV RNA Qual (PCR) NEGATIVE SARS-CoV-2 RNA (RT-PCR) NEGATIVE 09/06/23 09/07/23 23:19 02:10 MCV MCH MCHC RDW Plt Count MPV Immature Gran % (Auto) Neut % (Auto) Lymph % (Auto) [place] % (Auto) Eos % (Auto) Baso % (Auto) Lymph # (Auto) [place] # (Auto) Eos # (Auto) Baso # (Auto) Abs Immat Gran (auto) Absolute Neuts (auto) Absolute Nucleated RBC Nucleated RBC % (auto) VBG pH 7.30 L VBG pCO2 69 VBG pO2 78 VBG HCO3 34 H VBG O2 Saturation 98.0 VBG Base Excess 5.8 Anion Gap Estim Creat Clear Calc Estimated GFR Random Glucose Lactic Acid Calcium Total Bilirubin AST ALT Alkaline Phosphatase Total Protein Albumin Urine Color Yellow Urine Appearance Turbid Urine pH 6.5 Ur Specific [place] >= 1.030 H Urine Protein 30 (1+) H Urine Glucose (UA) >=1000 H Urine Ketones Negative Urine Blood Negative Urine Nitrite Positive H Ur Leukocyte Esterase Moderate (2+) H Urine RBC 0-2 Urine WBC >50 H Ur Squamous Epith Cells 0-2 Other Crystals Present Urine Bacteria 4+ Hyaline Casts 11-20 Influenza Type A (PCR) Influenza Type B (PCR) RSV RNA Qual (PCR) SARS-CoV-2 RNA (RT-PCR) Imaging Radiologist's Impressions: Impressions Chest X-Ray 09/06/23 22:20 IMPRESSION: * Low lung volumes and bibasilar streaky opacities, likely atelectasis. * Patchy opacities left midlung could represent subsegmental atelectasis or infiltrate. Assessment and Plan (1) Acute metabolic encephalopathy: Status: Acute (2) Acute respiratory failure with hypoxia and hypercapnia: Status: Acute (3) UTI (urinary tract infection): Status: Acute Plan This is a 62-year-old female with pertinent history of chronic hypoxemic hypercarbic respiratory failure due to COPD and OHS on 2-3 L supplemental oxygen at baseline and home BiPAP, congestive heart failure with preserved ejection fraction, mood disorder, mixed hyperlipidemia, insulin-dependent diabetes mellitus, essential hypertension who was sent to the emergency department for evaluation of lethargy #. Acute on chronic hypoxemic hypercarbic respiratory failure due to noncompliance with BiPAP. Noted improvement in respiratory acidosis with BiPAP. Educated the patient the importance of NIV. Continue to monitor mentation. Repeat VBG in a.m. #. Acute UTI: noted previous urine culture with ESBL. Initiating IV meropenem. Follow urine culture. No sepsis #. Acute metabolic encephalopathy in the setting of above #. Insulin-dependent diabetes mellitus:. Initiating Accu-Cheks with sliding scale insulin. Continue home basal regimen #. Morbid obesity. Weight loss encouraged. Counseled regarding diet #. Congestive heart failure with preserved ejection fraction. Continue Lasix #. Essential hypertension. Continue home antihypertensives #. Mood disorder. Continue home mood stabilizers Med rec pending DVT prophylaxis: Lovenox DNR/DNI Admit as inpatient and will require two night minimum hospital stay for IV antibiotics, monitoring of mentation and acid-base balance (as above), which is not possible in a lesser acute setting. Quality Stroke Does the patient have a stroke diagnosis?: No VTE Prior VTE?: No VTE Risk Level:: Medical - moderate - high VTE Device Contraindication: Treatment Not Indicated VTE Drug Contraindication: N/A - Med Ordered
[2023-09-07] MEDS: Enoxaparin Sodium 40 MG/0.4 ML SYRINGE SUBCUT (04:14)
[2023-09-07 07:17] LABS: MANUAL DIFF FLAG NO
[2023-09-07 07:20] LABS: Basophils Percent Auto 0.4 % (0-2); Eosinophils Absolute Auto 0.1 X10*3/uL (0.0-0.4); Eosinophils Percent Auto 1.3 % (0-4); Hematocrit 40.6 % (37.0-47.0); Hemoglobin 11.6 g/dl (12.0-16.0); Imm Gran Abs Auto 0.05 X10*3/uL (0.00-0.03); Imm Gran Pct Auto 0.7 % (0.0-0.4); Lymphocytes Absolute Auto 1.3 X10*3/uL (1.2-4.9); Lymphocytes Percent Auto 17.6 % (20-40); Mean Corpuscular HGB Conc 28.6 g/dl (31.0-35.0); Mean Corpuscular Hemoglobin 29.3 pg (27.0-33.0); Mean Corpuscular Volume 102.5 fL (80.0-98.0); Mean Platelet Volume 10.2 fL (9.4-12.3); Monocytes Absolute Auto 0.6 X10*3/uL (0.1-1.2); Monocytes Percent Auto 7.6 % (2-11); NRBC Pct Auto 0.4 /100WBC (0.0-0.2); Neutrophils Absolute Auto 5.5 x10*3/uL (2.0-8.3); Neutrophils Percent Auto 72.4 % (45-73); Platelet Count 186 X10*3/uL (160-400); Red Blood Count 3.96 X10*6/uL (4.20-5.50); Red Cell Distribution Width 15.3 % (11.0-16.0); White Blood Count 7.6 X10*3/uL (4.8-10.8)
[2023-09-07 07:26] LABS: VBG Base Excess 4.9 mmol/L; VBG HCO3 32 mmol/L (22-26); VBG pCO2 60 mmHg; VBG pH 7.33 (7.32-7.43); VBG pO2 85 mmHg
[2023-09-07 07:27] LABS: Glucose, Whole Blood 101 mg/dL (60-115)
[2023-09-07 07:42] LABS: Anion Gap 13 (12-20); Blood Urea Nitrogen 29 mg/dL (9-16); Carbon Dioxide 31 mmol/L (22-29); Chloride 107 mmol/L (96-108); Creatinine Clr Calc Pharmacy 109.7; Estimated Glomerular Filt Rate > 60; Glucose Random 114 mg/dL (60-115); Potassium 3.9 mmol/L (3.3-5.1); Sodium 147 mmol/L (135-145)
[2023-09-07 07:54] LABS: Venous Blood Gas Refer to POC result
--- NOTE | 2023-09-07 07:54 | PHA.MEDREC ---
Pharmacy Consult ? Medication Reconciliation Pharmacy has completed the medication reconciliation. MED REC COMPLETE USING LIST FROM [facility]
[2023-09-07] MEDS: 0.9 % Sodium Chloride Flush 3 ML SYRINGE IVFLUSH ×3 (08:10→21:12)
[2023-09-07 11:42] LABS: Glucose, Whole Blood 160 mg/dL (60-115)
--- NOTE | 2023-09-07 12:18 | PM.EVENT ---
Event Note Date of Service: 09/07/23 Event Note: This is a 62-year-old female with pertinent history of chronic hypoxemic hypercarbic respiratory failure due to COPD and OHS on 2-3 L supplemental oxygen at baseline and home BiPAP, congestive heart failure with preserved ejection fraction, mood disorder, mixed hyperlipidemia, insulin-dependent diabetes mellitus, essential hypertension who was sent to the emergency department for evaluation of lethargy Acute on chronic hypoxemic hypercarbic respiratory failure due to noncompliance with BiPAP. Noted improvement in respiratory acidosis with BiPAP. Educated the patient the importance of NIV. Continue to monitor mentation. Repeat VBG in a.m. Acute UTI noted previous urine culture with ESBL. but will wait for cx continue Rocephin Follow final urine culture. No sepsis Acute metabolic encephalopathy in the setting of above Insulin-dependent diabetes mellitus 2 Initiating Accu-Cheks with sliding scale insulin. Morbid obesity. Weight loss encouraged. Counseled regarding diet Congestive heart failure with preserved ejection fraction. Continue Lasix No exacerbation Essential hypertension. Continue home antihypertensives Mood disorder. Continue home mood stabilizers DVT prophylaxis: Nicole Attending Dr. Baldwin DNR/DNI Admit as inpatient and will require two night minimum hospital stay for IV antibiotics, monitoring of mentation and acid-base balance (as above), which is not possible in a lesser acute setting. Time Spent With Patient Time: Total time managing care of this patient today ____ minutes.
--- NOTE | 2023-09-07 16:14 | MHC.CM.PN ---
CM MET WITH PT AND AT BEDSIDE PT IS A LTC RESIDENT AT [facility] PT IS BED BOUND AND USES A BIPAP AND OXYGEN HCP ON FILE PCP: ANJEL VIDAL DCP: RETURN TO [facility] VIA BLS
[2023-09-07 16:30] LABS: Glucose, Whole Blood 196 mg/dL (60-115)
[2023-09-07] MEDS: Insulin Lispro 100 UNIT/ML 3 ML VIAL SUBCUT (17:19)
[2023-09-07 20:17] LABS: Glucose, Whole Blood 141 mg/dL (60-115)
[2023-09-07] MEDS: cefTRIAXone sodium 1 GM in 0.9 % Sodium Chloride 50 ML IV (21:04)
--- NOTE | 2023-09-07 23:21 | W.PM.IDCN ---
History of Present Illness Data of Consult Service Date: 09/07/23 Requesting physician: Belinda Brooks Primary Care Provider: Unknown Physician HPI Reason for consult: encephalopathy She presents with weakness and lethargy,encephalopathy. She has some chronic respiratory failure and is on 2-3 liters oxygen,no change. There is no specific urinary complaints,but she is very sleepy. ID consult called for Merem as patient had ESBL Klebsiella reported in spring. She has had most recently E coli sensitive to Ceftriaxone 06/2023. She has HFpEF. Review of Systems Review of Systems: Yes Unobtainable due to mental condition [facility] Past Medical History Medical History Sepsis Acute and chronic respiratory failure with hypercapnia Morbid obesity Obesity hypoventilation syndrome Hypoventilation associated with obesity COPD (chronic obstructive pulmonary disease) Morbid obesity with BMI of 50.0-59.9, adult Acute and chronic respiratory failure Pressure injury of deep tissue of buttock Pressure ulcer, stage II, skin breakdown Hypertrophic nonobstructive cardiomyopathy Presence of permanent cardiac pacemaker Acute on chronic respiratory failure with hypoxia and hypercapnia Metabolic encephalopathy Acute and chronic respiratory failure with hypercapnia Urinary tract infection due to ESBL Klebsiella Respiratory failure Presence of permanent cardiac pacemaker Sick sinus syndrome Morbid obesity Heart block AV third degree PAD (peripheral artery disease) Diabetic ulcer of foot associated with diabetes mellitus due to underlying condition, with fat layer exposed Atelectasis of both lungs Respiratory failure with hypoxia and hypercapnia Hypoventilation associated with obesity syndrome SMILEY (obstructive sleep apnea) Morbid obesity Pulmonary embolism CHF (congestive heart failure) Clostridium difficile infection Hypertension Diabetes mellitus, type 2 Depression Arthritis Anemia Family History Family history: reviewed and not pertinent Surgical History Surgical History History of total knee replacement Social History Social History Household Members: Unknown / Unable to assess Housing: Unknown / [facility] to assess [facility] Pt confused, unable to ascertain further Are you a primary career specialist to a significant other at home: No Do you presently have visiting nurse or other home services: Yes Unable to assess alcohol history related to: Unknown Alcohol intake: never Patient Tobacco Use Status: Former Tobacco user Quit Date: 30years ago Tobacco use type: Cigarette Cigarette Packs Per Day: 20 Cigarettes Per Day: 400.0 Years Smoked: 20 e-Cigarette/Vaping Use: Never Used Second Hand Smoke Exposure: No Substance Use Type: Unknown Advance Directives Date on File: 01/07/23 service: No Current occupational status: disabled Meds Allergies Allergy/AdvReac Type Severity Reaction Status Date / Time latex Allergy Unknown Unknown Verified 09/06/23 21:26 adhesive tape AdvReac Unknown Unknown Verified 09/06/23 21:26 bupropion [From Wellbutrin] AdvReac Unknown Unknown Verified 09/06/23 21:26 ibuprofen AdvReac Unknown Unknown Verified 09/06/23 21:26 Active Medications: Current Medications Acetaminophen (Acetaminophen 325 Mg Tablet) 650 mg PO Q6H PRN PRN Reason: Pain, Mild (Pain Scale 1-3) Dextrose (Dextrose 50 % 25 Gm/50 Ml Syringe) 25 gm IVPUSH Q15M PRN; Protocol PRN Reason: per Hypoglycemia Standing Ord. Enoxaparin Sodium (Enoxaparin Sodium 40 Mg/0.4 Ml Syringe) 40 mg SUBCUT DAILY [facility] Last Admin: 09/07/23 04:14 Dose: 40 mg Glucose (Glucose Gel 15 Gm Gel..Gram.) 15 gm PO Q15M PRN; Protocol PRN Reason: per Hypoglycemia Standing Ord. Ceftriaxone Sodium 1 gm/ (Sodium Chloride) 50 mls @ 100 mls/hr IV Q24H [facility] Last Infusion: 09/07/23 22:14 Dose: Infused Insulin Human Lispro (Insulin Lispro 100 Unit/Ml 3 Ml Vial) 0 unit SUBCUT QIDACHS [facility]; Protocol Last Admin: 09/07/23 20:28 Dose: Not Given Melatonin (Melatonin 3 Mg Tablet) 6 mg PO BEDTIME PRN PRN Reason: Insomnia Ondansetron HCl (Ondansetron Hcl 4 Mg/2 Ml Vial) 4 mg IVPUSH Q8H PRN PRN Reason: Nausea and Vomiting Sodium Chloride (0.9 % Sodium Chloride Flush 3 Ml Syringe) 3 ml IVFLUSH QSHIFT [facility] Last Admin: 09/07/23 21:12 Dose: 3 ml Home Medications Medication Instructions Recorded Confirmed Last Taken Type acetaminophen 325 mg tablet 650 mg PO Q4H PRN Fever Or Pain 11/18/21 09/07/23 Unknown History atorvastatin 80 mg tablet 80 mg PO BEDTIME 11/18/21 09/07/23 Unknown History ferrous sulfate 325 mg (65 mg 325 mg PO DAILY 11/18/21 09/07/23 Unknown History iron) tablet insulin lispro 100 unit/mL See Protocol subcut QIDACHS 11/18/21 09/07/23 Unknown History subcutaneous pen melatonin 3 mg tablet 3 mg PO BEDTIME 11/18/21 09/07/23 Unknown History polyethylene glycol 3350 17 gram 17 g PO DAILY PRN Constipation 11/18/21 09/07/23 Unknown History oral powder packet (Miralax) sennosides 8.6 mg tablet (senna) 17.2 mg PO BEDTIME 11/18/21 09/07/23 Unknown History sertraline 100 mg tablet 200 mg PO DAILY 11/18/21 09/07/23 Unknown History tizanidine 4 mg tablet 4 mg PO BEDTIME PRN Muscle Spasm 11/18/21 09/07/23 Unknown History aspirin 81 mg chewable tablet 81 mg PO DAILY 01/05/22 09/07/23 Unknown History bupropion HCl 300 mg 24 hr tablet, 300 mg PO DAILY 04/09/22 09/07/23 Unknown History extended release Lactobacillus rhamnosus GG 10 1 cap PO BID 10/09/22 09/07/23 Unknown History billion cell capsule (Culturelle) bupropion HCl 150 mg 24 hr tablet, 1 tab PO DAILY 10/09/22 09/07/23 Unknown History extended release ipratropium 0.5 mg-albuterol 3 mg 3 ml inhalation TID PRN Wheezing 10/09/22 09/07/23 Unknown History (2.5 mg base)/3 mL nebulization soln potassium chloride 10 mEq 10 meq PO DAILY 10/09/22 09/07/23 Unknown History tablet,extended release bisacodyl 10 mg rectal suppository 10 mg [place] DAILY PRN Constipation 10/21/22 09/07/23 Unknown History fluticasone 113 mcg-salmeterol 14 1 inh inhalation DAILY 11/09/22 09/07/23 Unknown History mcg/actuation breath activated powdr (AirDuo RespiClick) sodium phosphates 19 gram-7 118 ml [place] DAILY PRN Constipation 11/09/22 09/07/23 Unknown History gram/118 mL enema (Fleet Enema) metformin 500 mg tablet 500 mg PO BID 12/27/22 09/07/23 Unknown History semaglutide 0.25 mg or 0.5 mg (2 0.5 mg subcut WE 12/27/22 09/07/23 Unknown History mg/3 mL) subcutaneous pen injector (Ozempic) aripiprazole 2 mg tablet 2 mg PO DAILY 01/12/23 09/07/23 Unknown History cholecalciferol (vitamin D3) 25 25 mcg PO DAILY 04/04/23 09/07/23 Unknown History mcg (1,000 unit) tablet insulin glargine 100 unit/mL 18 unit subcut DAILY 04/04/23 09/07/23 Unknown History subcutaneous solution (Lantus U-100 Insulin) losartan 25 mg tablet 25 mg PO DAILY 04/04/23 09/07/23 Unknown History megestrol 400 mg/10 mL (40 mg/mL) 400 mg PO TID 04/04/23 09/07/23 Unknown History oral suspension olopatadine 0.2 % eye drops 1 drp ophthalmic (eye) QSHIFT 04/04/23 09/07/23 Unknown History cyanocobalamin (vitamin B-12) 1,000 mcg PO DAILY 04/21/23 09/07/23 Unknown History 1,000 mcg capsule magnesium citrate 150 ml PO DAILY PRN Constipation 09/07/23 09/07/23 Unknown History nystatin 100,000 unit/gram topical 1 appl topical BID 09/07/23 09/07/23 Unknown History cream Physical Exam Vital Signs: Vital Signs: Last Vital Signs Temp 97.8 F 09/07/23 19:42 Pulse 83 09/07/23 19:42 Resp 23 H 09/07/23 20:32 BP 155/75 H 09/07/23 19:42 Pulse Ox 89 L 09/07/23 19:42 O2 Del Method Nasal Cannula 09/07/23 19:42 O2 Flow Rate 3 09/07/23 19:42 FiO2 25 09/07/23 15:43 Oxygen Flow Rate 3 09/06/23 21:21 BMI result Body Mass Index 46.8 Const: General: cooperative HEENT: Head: Yes normal to inspection Face and sinus: Yes normal facial exam Mouth: Normal oral and palatal mucosa present Teeth and gingiva: dentition normal Eyes: General: appearance normal, both eyes and all related structures Pupils: Equal, round and reactive pupils present Resp: Effort & Inspection: normal respiratory effort Cardio: Rate: regular rate Rhythm: regular rhythm Heart sounds: Murmur heart sound present (2/6 PUNEET) GI: Palpation (GI): Soft to palpation and nontender : General: Yes no CVA tenderness Back/Spine/Pelvis: Back: no CVA tenderness Skin: General skin exam: no rashes or lesions noted Neuro: General: moves all extremities Cranial nerves: Yes Equal, round and reactive pupils present Extrem: General: Yes normal to inspection Psych: Other: sleepy Appearance: grossly normal Results Labs 09/07/23 07:12 09/07/23 07:12 Labs: Short CBC 09/07/23 Range/Units 07:12 WBC 7.6 (4.8-10.8) X10*3/uL Hgb 11.6 L (12.0-16.0) g/dl Hct 40.6 (37.0-47.0) % Plt Count 186 (160-400) X10*3/uL BMP 09/07/23 07:12 Sodium 147 H Potassium 3.9 Chloride 107 Carbon Dioxide 31 H BUN 29 H Creatinine 0.83 Calcium 9.0 Urine 09/06/23 Range/Units 23:19 Urine Color Yellow Urine Appearance Turbid Urine pH 6.5 (5.0-9.0) Ur Specific [place] >= 1.030 H (1.005-1.025) Urine Protein 30 (1+) H (Neg-Trace) mg/dL Urine Glucose (UA) >=1000 H (Negative) mg/dL Assessment and Plan (1) Acute metabolic encephalopathy: Status: Acute There may be urinary source of encephalopathy but most recent culture urine cephalosporin sensitive E coli in June. She has chronic heart failure and murmur. Would check blood cultures evaluate endocarditis. Cover possible UTI with Ceftriaxone. Await urinalysis and culture as well as blood culture. (2) Chronic respiratory failure: Status: Acute (3) UTI (urinary tract infection): Status: Acute
[2023-09-07] MEDS: Melatonin 3 MG TABLET 6 MG PO (23:42)
[2023-09-07] MEDS: Acetaminophen 325 MG TABLET 650 MG PO (23:42)
[2023-09-08] VITALS (7 sets, daily range): BP systolic 130–174; BP diastolic 74–87; PULSE 62–97; RESP 14–21; TEMP 36–36.3; O2SAT 90–95
[2023-09-08] MEDS: Acetaminophen 325 MG TABLET 650 MG PO (05:57)
[2023-09-08 07:19] LABS: Glucose, Whole Blood 104 mg/dL (60-115)
[2023-09-08] MEDS: 0.9 % Sodium Chloride Flush 3 ML SYRINGE IVFLUSH ×3 (08:00→20:30)
[2023-09-08] MEDS: Enoxaparin Sodium 40 MG/0.4 ML SYRINGE SUBCUT (08:00)
[2023-09-08 08:03] LABS: Anion Gap 14 (12-20); Blood Urea Nitrogen 25 mg/dL (9-16); Carbon Dioxide 30 mmol/L (22-29); Chloride 106 mmol/L (96-108); Creatinine Clr Calc Pharmacy 123.2; Estimated Glomerular Filt Rate > 60; Glucose Random 95 mg/dL (60-115); Potassium 3.8 mmol/L (3.3-5.1); Sodium 146 mmol/L (135-145)
--- NOTE | 2023-09-08 09:02 | HO.PM.IMPN ---
Subjective Subjective Date of Service: 09/08/23 Review of Systems Follow-up hypoxemic respiratory failure secondary to noncompliance with BiPAP, UTI More awake today, sitting up eating breakfast on her own Reports feeling tired Physical Exam Vital Signs: Vital Signs: Last Vital Signs Temp 97 F 09/08/23 07:37 Pulse 97 09/08/23 07:37 Resp 16 09/08/23 07:37 BP 174/82 H 09/08/23 07:37 Pulse Ox 92 09/08/23 07:37 O2 Del Method Nasal Cannula 09/08/23 07:37 O2 Flow Rate 2 09/08/23 07:37 FiO2 25 09/07/23 15:43 Oxygen Flow Rate 3 09/06/23 21:21 BMI result Body Mass Index 46.8 Appearing in no acute distress lung sounds are clear to auscultation heart regular rate rhythm, clear S1, S2 positive bowel sounds, abdomen is soft, nontender neuro patient is alert x3, no focal deficits Objective Data Active Medications Acetaminophen (Acetaminophen 325 Mg Tablet) 650 mg PO Q6H PRN PRN Reason: Pain, Mild (Pain Scale 1-3) Last Admin: 09/08/23 05:57 Dose: 650 mg Documented By: LESLYE Dextrose (Dextrose 50 % 25 Gm/50 Ml Syringe) 25 gm IVPUSH Q15M PRN; Protocol PRN Reason: per Hypoglycemia Standing Ord. Enoxaparin Sodium (Enoxaparin Sodium 40 Mg/0.4 Ml Syringe) 40 mg SUBCUT DAILY [facility] Last Admin: 09/08/23 08:00 Dose: 40 mg Documented By: MAURICE Glucose (Glucose Gel 15 Gm Gel..Gram.) 15 gm PO Q15M PRN; Protocol PRN Reason: per Hypoglycemia Standing Ord. Ceftriaxone Sodium 1 gm/ (Sodium Chloride) 50 mls @ 100 mls/hr IV Q24H [facility] Last Infusion: 09/07/23 22:14 Dose: Infused Documented By: LESLYE Insulin Human Lispro (Insulin Lispro 100 Unit/Ml 3 Ml Vial) 0 unit SUBCUT QIDACHS [facility]; Protocol Last Admin: 09/08/23 07:25 Dose: Not Given Documented By: MAURICE Non-Admin Reason: No Insulin Coverage Melatonin (Melatonin 3 Mg Tablet) 6 mg PO BEDTIME PRN PRN Reason: Insomnia Last Admin: 09/07/23 23:42 Dose: 6 mg Documented By: EDITHQC Ondansetron HCl (Ondansetron Hcl 4 Mg/2 Ml Vial) 4 mg IVPUSH Q8H PRN PRN Reason: Nausea and Vomiting Sodium Chloride (0.9 % Sodium Chloride Flush 3 Ml Syringe) 3 ml IVFLUSH QSHIFT ROSSY Last Admin: 09/08/23 08:00 Dose: 3 ml Documented By: MAURICE Labs 09/07/23 07:12 09/08/23 07:42 Labs: Laboratory Results - last 24 hr 09/07/23 09/07/23 09/07/23 11:33 16:11 19:44 Hold Purple Top Anion Gap Estim Creat Clear Calc Estimated GFR POC Glucose 160 H 196 H 141 H Random Glucose Calcium 09/08/23 09/08/23 07:12 07:42 Hold Purple Top SEE NOTE Anion Gap 14 Estim Creat Clear Calc 123.2 Estimated GFR > 60 POC Glucose 104 Random Glucose 95 Calcium 9.0 Microbiology Microbiology Results: Microbiology 09/06/23 22:50 Blood Culture - Preliminary Blood - Venous No growth after 24 hours. 09/06/23 22:50 Blood Culture - Preliminary Blood - Venous No growth after 24 hours. Assessment and Plan (1) Acute and chronic respiratory failure with hypercapnia: Status: Resolved Plan This is a 62-year-old female with pertinent history of chronic hypoxemic hypercarbic respiratory failure due to COPD and OHS on 2-3 L supplemental oxygen at baseline and home BiPAP, congestive heart failure with preserved ejection fraction, mood disorder, mixed hyperlipidemia, insulin-dependent diabetes mellitus, essential hypertension who was sent to the emergency department for evaluation of lethargy Acute on chronic hypoxemic hypercarbic respiratory failure due to noncompliance with BiPAP. Noted improvement in respiratory acidosis with BiPAP. Educated the patient the importance of NIV. Continue to monitor mentation. Repeat VBG in a.m. Acute UTI noted previous urine culture with ESBL. but will wait for cx continue Rocephin Follow final urine culture, still pending No sepsis Acute metabolic encephalopathy in the setting of above blood cx neg after 24 hrs Insulin-dependent diabetes mellitus 2 Initiating Accu-Cheks with sliding scale insulin. Morbid obesity. Weight loss encouraged. Counseled regarding diet Congestive heart failure with preserved ejection fraction. Continue Lasix No exacerbation Essential hypertension. Continue home antihypertensives Mood disorder. Continue home mood stabilizers DVT prophylaxis: Nicole Attending Dr. Velazquez DNR/DNI continued hospital stay for IV antibiotics, monitoring of mentation and acid-base balance (as above), which is not possible in a lesser acute setting. Quality Stroke Does the patient have a stroke diagnosis?: No VTE Prior VTE?: No VTE Risk Level:: Medical - moderate - high VTE Device Contraindication: Treatment Not Indicated VTE Drug Contraindication: N/A - Med Ordered
[2023-09-08 11:19] LABS: Glucose, Whole Blood 148 mg/dL (60-115)
[2023-09-08] MEDS: amLODIPine Besylate 5 MG TABLET PO (14:26)
[2023-09-08] MEDS: ARIPiprazole 2 MG TABLET PO (14:26)
[2023-09-08 16:44] LABS: Glucose, Whole Blood 112 mg/dL (60-115)
[2023-09-08 20:06] LABS: Glucose, Whole Blood 159 mg/dL (60-115)
[2023-09-08] MEDS: Melatonin 3 MG TABLET 6 MG PO (20:23)
[2023-09-08] MEDS: Insulin Lispro 100 UNIT/ML 3 ML VIAL SUBCUT (20:23)
[2023-09-08] MEDS: Atorvastatin Calcium 80 MG TABLET PO (20:24)
[2023-09-08] MEDS: cefTRIAXone sodium 1 GM in 0.9 % Sodium Chloride 50 ML IV (20:29)
[2023-09-09 04:00] VITALS: BP 147/72; PULSE 70; RESP 16; TEMP 37; O2SAT 91
[2023-09-09 04:25] VITALS: PULSE 78; RESP 20; O2SAT 90
--- NOTE | 2023-09-09 05:11 | MHC.PIE ---
p; pt woke up refusing bipap mask or o2 NC, pt reports i want to i don't want the oxygen so i can and other SI statements. i; staff placed in room. nursing shift supervisor notified. dr patino notified e; will cont to monitor
[2023-09-09 07:31] LABS: Glucose, Whole Blood 86 mg/dL (60-115)
[2023-09-09 07:32] VITALS: BP 183/79; PULSE 68; RESP 20; TEMP 36.4; O2SAT 94
[2023-09-09] MEDS: Potassium Chloride ER 10 MEQ TABLET.ER PO (09:09)
[2023-09-09] MEDS: ARIPiprazole 2 MG TABLET PO (09:09)
[2023-09-09] MEDS: amLODIPine Besylate 5 MG TABLET PO (09:09)
[2023-09-09] MEDS: Sertraline HCL 100 MG TABLET 200 MG PO (09:09)
[2023-09-09] MEDS: buPROPion HCl XL 150 MG TAB.ER.24H PO (09:09)
[2023-09-09] MEDS: Losartan Potassium 25 MG TABLET PO (09:09)
[2023-09-09] MEDS: Aspirin 81 MG TAB.CHEW PO (09:09)
[2023-09-09] MEDS: Furosemide 40 MG TABLET PO (09:10)
[2023-09-09] MEDS: buPROPion HCl XL 300 MG TAB.ER.24H PO (09:10)
[2023-09-09] MEDS: Enoxaparin Sodium 40 MG/0.4 ML SYRINGE SUBCUT (09:10)
[2023-09-09] MEDS: 0.9 % Sodium Chloride Flush 3 ML SYRINGE IVFLUSH (09:16)
[2023-09-09] MEDS: Acetaminophen 325 MG TABLET 650 MG PO (09:47)
[2023-09-09 11:24] LABS: Glucose, Whole Blood 141 mg/dL (60-115)
--- NOTE | 2023-09-09 11:27 | MHC.CM.PN ---
Addendum entered by Margot Palomino RN 09/09/23 11:29: Correction - CM attempted to contact HCP x2 to notify of DC, but mailbox is full, unable to leave message. CM will continue to attempt to contact. Original Note: Per MEDICAL STAFF SERVICES COORDINATOR patient is medically cleared for DC back to LTC at [facility]. BLS transport scheduled for 1pm. RN, , and HCP aware.
--- NOTE | 2023-09-09 11:41 | PM.DS ---
DS: Providers Provider Date of Service: 09/09/23 Date of admission: 09/07/23 03:01 Primary care physician: Unknown Physician Consults: 09/07/23 06:03 Consult to Wound Care Routine Reason for consultation: stage 2 to coccyx Has provider been notified: Yes 09/07/23 08:02 Consult to Infectious Diseases Routine [place] [facility] [place] Reason for consultation: MEROPENEM DS: Diagnosis Discharge Diagnosis (1) Acute and chronic respiratory failure with hypercapnia: Status: Resolved DS: Summary Hospital Course Hospital Course: History and physical as per admitting provider. This is a 62-year-old female with pertinent history of chronic hypoxemic hypercarbic respiratory failure due to COPD and OHS on 2-3 L supplemental oxygen at baseline and home BiPAP, congestive heart failure with preserved ejection fraction, mood disorder, mixed hyperlipidemia, insulin-dependent diabetes mellitus, essential hypertension who was sent from outside facility for lethargy. Patient does not know why she is here. Unable to provide history. History obtained from ER provider and chart review. Noted previous compliance issues and recurrent admissions for acute on chronic hypoxemic hypercarbic respiratory failure due to noncompliance with home BiPAP. Unable to obtain review of systems. In the emergency department, patient was found to be in respiratory acidosis and ICU team consulted. After discussion with family and reinforcing that patient is DNR/DNI, it was suggested that patient paste on BiPAP. Respiratory acidosis improved with NIV. Patient was also found to have UTI. 62-year-old woman treated for acute on chronic hypoxemic hypercarbic respiratory failure due to noncompliance with BiPAP. She was also noted to have UTI found to be Proteus mirabilis. Treated with IV Rocephin and transition to Ceftin complete total 7 day treatment. She was treated with BiPAP during admission which she has often on at the long-term care facility. On 2 L nasal cannula. Acute metabolic encephalopathy may have been secondary to the UTI as her blood cultures have been negative and no other infectious source noted. She did have an episode of claiming that she ?wanted to ? overnight because she was tired of wearing the BiPAP, sitter placed in room but no order placed. She reported today that she did not feel like she wanted to harm herself at all she just gets frustrated. Patient is mostly bedbound but independent with eating on her own. Plan is to discharge patient back to long-term care facility to complete short course of antibiotics for UTI. Encouraged use of BiPAP with napping and at bedtime. Diabetes mellitus type 2. Continue medications morbid obesity. Discussed importance of weight management as this may be contributing to worsening of other comorbidities Congestive heart failure with preserved ejection fraction. No exacerbation during hospitalization. Continue Lasix Hypertension. Continue antihypertensives Mental health. Continue home medications Time Attestation Discharge coordination time: Greater than 30 minutes Quality: Safe Use of Opioids Does Pt have an Active Cancer Diagnosis on the Problem List?: No Quality: Stroke Does the patient have a stroke diagnosis?: No Physical Exam Vital Signs: Vital Signs: Last Vital Signs Temp 97.6 F 09/09/23 07:32 Pulse 68 09/09/23 07:32 Resp 20 09/09/23 07:32 BP 183/79 H 09/09/23 07:32 Pulse Ox 94 09/09/23 07:32 O2 Del Method Nasal Cannula 09/09/23 07:32 O2 Flow Rate 3 09/09/23 07:32 FiO2 25 09/07/23 15:43 Oxygen Flow Rate 2 09/08/23 16:58 BMI result Body Mass Index 46.8 Appearing in no acute distress head is normocephalic atraumatic eyes pupils are PERRLA sclera is anicteric mouth throat mucous membranes are intact and moist neck is supple no lymphadenopathy, no JVD noted lung sounds are clear to auscultation heart regular rate rhythm, clear S1, S2 positive bowel sounds, abdomen is soft, nontender neuro patient is alert x3, no focal deficits DS: Data Data Completed and Pending Completed studies during hospitalization [Text1]: Procedures Assistance with Respiratory Ventilation, Less than 24 Consecutive Hours, Continuous Positive Airway Pressure (07/01/23) Insertion of Endotracheal Airway into Trachea, Via Natural or Artificial Opening (11/18/21) Insertion of Infusion Device into Superior Vena Cava, Percutaneous Approach (11/18/21) Introduction of Vasopressor into Peripheral Vein, Percutaneous Approach (11/18/21) Respiratory Ventilation, 24-96 Consecutive Hours (11/18/21) Ultrasonography of Superior Vena Cava, Guidance (11/18/21) Labs on day of discharge: Laboratory Results - last 24 hr 09/08/23 09/08/23 09/09/23 16:34 20:01 07:24 POC Glucose 112 159 H 86 09/09/23 11:07 POC Glucose 141 H Preliminary micro results at discharge 09/06/23 22:50 Blood Culture - Preliminary Blood - Venous No growth after 48 hours. 09/06/23 22:50 Blood Culture - Preliminary Blood - Venous No growth after 48 hours. Discharge Plan Discharge Anticipated Discharge Date/Time: 09/09/23 11:11 Patient Disposition: Xfer LT Discharge Diagnosis: Acute on chronic hypoxemic hypercarbic respiratory failure due to noncompliance with BiPAP Proteus mirabilis UTI Acute metabolic encephalopathy Discharge Medications: New cefuroxime axetil 500 mg tablet 500 mg PO BID Qty: 10 0RF Continued furosemide 40 mg Tablet 40 mg PO DAILY Qty: 30 0RF Protocol: Hold for SBP< HOLD for SBP < : 90 ipratropium-albuterol 0.5 mg-3 mg(2.5 mg base)/3 mL Solution For Nebulization 3 ml INHALATION TID PRN (Reason: Wheezing) potassium chloride 10 mEq Tablet Extended Release 10 meq PO DAILY Hold Instructions: Recheck K level in 1 week to decide if needed or not. Culturelle 10 billion cell Capsule 1 cap PO BID bupropion HCl 150 mg tablet extended release 24 hr 1 tab PO DAILY Rx Instructions: take with 300mg; tdd 450mg Fleet Enema 19-7 gram/118 mL Enema 118 ml VT DAILY PRN (Reason: Constipation) Rx Instructions: (STEP 3) IF NO BOWEL MOVEMENT 8 HOURS AFTER BISACODYL fluticasone propion-salmeterol [AirDuo RespiClick] 113-14 mcg/actuation aerosol powdr breath activated 1 inh inhalation DAILY Rx Instructions: rinse mouth after use AND SPIT OUT atorvastatin 80 mg Tablet 80 mg PO BEDTIME sennosides [senna] 8.6 mg Tablet 17.2 mg PO BEDTIME acetaminophen 325 mg Tablet 650 mg PO Q4H PRN (Reason: Fever Or Pain) polyethylene glycol 3350 [Miralax] 17 gram Powder In Packet 17 g PO DAILY PRN (Reason: Constipation) tizanidine 4 mg Tablet 4 mg PO BEDTIME PRN (Reason: Muscle Spasm) sertraline 100 mg Tablet 200 mg PO DAILY melatonin 3 mg Tablet 3 mg PO BEDTIME ferrous sulfate 325 mg (65 mg iron) Tablet 325 mg PO DAILY insulin lispro 100 unit/mL Insulin Pen See Protocol SUBCUT QIDACHS Protocol: Insulin Correction Scale Less than or equal to 110 ---- Give (units): 0 111 to 150 Give (units): 0 151 to 200 Give (units): 0 201 to 250 Give (units): 4 251 to 300 Give (units): 6 301 to 350 Give (units): 8 Greater than 350 Give (units): 10 Call MD if Blood Glucose > : 350 Rx Instructions: SLIDING SCALE IF BLOOD GLUCOSE GREATER THAN 400, GIVE 12 UNITS AND NOTIFY MD amlodipine 5 mg Tablet 5 mg PO DAILY 30 Days Qty: 30 0RF Protocol: Hold for SBP< HOLD for SBP < : 90 aspirin 81 mg Tablet,Chewable 81 mg PO DAILY acetazolamide 250 mg Tablet 500 mg PO BID Qty: 60 0RF aripiprazole 2 mg tablet 2 mg PO DAILY Jardiance 10 mg Tablet 10 mg PO DAILY 30 Days Qty: 30 0RF losartan 25 mg tablet 25 mg PO DAILY cholecalciferol (vitamin D3) 25 mcg (1,000 unit) Tablet 25 mcg PO DAILY olopatadine 0.2 % Drops 1 drp OPHTHALMIC (EYE) QSHIFT megestrol 400 mg/10 mL (40 mg/mL) suspension 400 mg PO TID insulin glargine [Lantus U-100 Insulin] 100 unit/mL solution 18 unit subcut DAILY magnesium citrate Solution 150 ml PO DAILY PRN (Reason: Constipation) Rx Instructions: (step 4) use if no bowel movement 12 hours after fleet enema nystatin 100,000 unit/gram Cream 1 appl TOPICAL BID Protocol: Apply to: Apply to: [place] AREA metformin 500 mg tablet 500 mg PO BID Ozempic 0.25 mg or 0.5 mg (2 mg/3 mL) pen injector 0.5 mg subcut WE bisacodyl 10 mg suppository 10 mg VT DAILY PRN (Reason: Constipation) Rx Instructions: GIVE IF NO RESULT FROM MILK OF MAGNESIA cyanocobalamin (vitamin B-12) 1,000 mcg capsule 1,000 mcg PO DAILY bupropion HCl 300 mg tablet extended release 24 hr 300 mg PO DAILY Rx Instructions: take with 150mg dose; tdd 450mg Discharge Orders: Discharge Order (Routine); Ordered 09/09/23 Ordered By: Belinda Brooks Diet: Advance to usual diet Activity on Discharge: As tolerated Stand Alone Forms: Patient Portal Discharge page Care Plan Goals: Use BiPAP machine as needed and as prescribed Take Ceftin for UTI Health Concerns: Acute on chronic hypoxemic hypercarbic respiratory failure due to noncompliance with BiPAP Proteus mirabilis UTI Acute metabolic encephalopathy Plan of Treatment: Follow-up with primary care provider as needed Take all medications as prescribed Assessment: See discharge summary
== END 2023-09-09 13:20 | DRG 689 ==
LOC: HO.ED 09-07 01:37 → HO.EDOVER 09-07 03:15 → HO.S3 09-07 03:56
PROVIDERS: Admitting Provider Student in an Organized Health Care Education/Training Program; Emergency Provider Internal Medicine; PCP Internal Medicine; Visit Provider Nurse Practitioner Acute Care
DX: N39.0 Urinary tract infection, site not specified (principal); G93.41 Metabolic encephalopathy; J96.21 Acute and chronic respiratory failure with hypoxia; J96.22 Acute and chronic respiratory failure with hypercapnia; E66.2 Morbid (severe) obesity with alveolar hypoventilation; Z68.42 Body mass index [BMI] 45.0-49.9, adult; E78.2 Mixed hyperlipidemia; E11.9 Type 2 diabetes mellitus without complications; I11.0 Hypertensive heart disease with heart failure; B96.4 Proteus (mirabilis) (morganii) as the cause of diseases classified elsewhere; Z66 Do not resuscitate; Z20.822 Contact with and (suspected) exposure to COVID-19; Z87.891 Personal history of nicotine dependence; Z74.01 Bed confinement status; Z91.199 Patient's noncompliance with other medical treatment and regimen due to unspecified reason; Z91.040 Latex allergy status; Z99.81 Dependence on supplemental oxygen; Z79.4 Long term (current) use of insulin; Z79.51 Long term (current) use of inhaled steroids; Z79.82 Long term (current) use of aspirin; Z79.84 Long term (current) use of oral hypoglycemic drugs; Z79.85 Long-term (current) use of injectable non-insulin antidiabetic drugs; Z79.899 Other long term (current) drug therapy
CPT/HCPCS: 0241U; 36415; 71045; 80048; 80053; 81001; 82803; 82947; 83605; 85025; 87040; 87086; 87088; 87186; 93005; 94660; 99285; J0696; J1650; J2185; J2270

== ENCOUNTER → 2023-09-06 22:13 | Outpatient (BNV) | payer OTHER, MEDICAID, SELFPAY | PROVIDERS: Admitting Provider Student in an Organized Health Care Education/Training Program; Emergency Provider Internal Medicine; Visit Provider Internal Medicine Cardiovascular Disease | DX: I49.9 Cardiac arrhythmia, unspecified (principal) | CPT/HCPCS: 93010 ==

== ENCOUNTER → 2023-09-07 03:01 | Outpatient (BNV) | payer OTHER, MEDICAID, SELFPAY | PROVIDERS: Admitting Provider Student in an Organized Health Care Education/Training Program; Emergency Provider Internal Medicine; Visit Provider Student in an Organized Health Care Education/Training Program | DX: J96.22 Acute and chronic respiratory failure with hypercapnia (principal) | CPT/HCPCS: 99222; 99232; 99239; 99499 ==

== ENCOUNTER → 2023-09-07 03:01 | Outpatient (BNV) | payer SELFPAY | PROVIDERS: Admitting Provider Student in an Organized Health Care Education/Training Program; Emergency Provider Internal Medicine; Visit Provider Internal Medicine | DX: G93.41 Metabolic encephalopathy (principal); J96.10 Chronic respiratory failure, unspecified whether with hypoxia or hypercapnia; N39.0 Urinary tract infection, site not specified | CPT/HCPCS: 99222 ==

== ENCOUNTER 2023-10-02 15:22 | Inpatient (IN) | payer MEDICARE, MEDICAID, SELFPAY ==
[2023-10-02] VITALS (10 sets, daily range): BP systolic 109–138; BP diastolic 63–70; PULSE 75–92; RESP 17–35; TEMP 37.1–37.7; O2SAT 89–97; BMI 49.1
--- NOTE | ~2023-10-02 | XR_ITS ---
EXAMINATION: XR CHEST CLINICAL INFORMATION: Hypoxia. COMPARISON: Chest radiograph dated 09/06/2023. TECHNIQUE: Frontal view of the chest was obtained. FINDINGS: There is stable cardiomegaly. There is pulmonary vascular congestion, without overt pulmonary edema. Lung volumes are again low. There are persistent bilateral streaky opacities, relatively stable from 09/06/2023. There is retrocardiac opacity, with silhouetting of the left hemidiaphragm. No definite pleural effusion is seen. There is no pneumothorax. No acute osseous abnormality is seen. A dual-lead, dual-chamber left subclavian pacemaker device is noted, without change in lead position or lead fracture. XR/XR chest 1V IMPRESSION: Stable examination. Again, there are low lung volumes and bilateral lower lung field streaky opacities with appearances favoring atelectasis. There is persistent retrocardiac atelectasis versus infiltrate.
--- NOTE | 2023-10-02 15:25 | ECG_ITS ---
Test Reason : sob Blood Pressure : / mmHG Vent. Rate : 082 BPM Atrial Rate : 082 BPM P-R Int : 180 ms QRS Dur : 176 ms QT Int : 444 ms P-R-T Axes : 020 -70 065 degrees QTc Int : 518 ms Atrial-sensed ventricular-paced rhythm Abnormal ECG When compared with ECG of 06-SEP-2023 22:35, No significant changes seen Referred By: Laurie White Electronically Signed By:SANJANA LAGUERRE
--- NOTE | 2023-10-02 15:32 | ED.GENADULT ---
HPI - General Adult General Chief complaint: Dyspnea Stated complaint: Low spO2, hx of COPD, on CPAP Time Seen by Provider: 10/02/23 15:32 Source: patient, EMS, RN notes reviewed and old records reviewed Mode of arrival: EMS Limitations: no limitations History of Present Illness HPI narrative: 62-year-old female from senior living with pertinent history of chronic hypoxemic hypercarbic respiratory failure due to COPD on 2-3 L supplemental oxygen at baseline and home CPAP at nighttime, CHF with preserved ejection fraction found at the senior living lethargic with O2 sat in the 70s% patient was placed on non-rebreather with no much improvement of her O2 sat, EMS were called patient was placed on CPAP by EMS and transported to the hospital on arrival patient is 85%, CPAP noted to have no good sealing on the face. O2 sat improved to 95% on CPAP with FiO2 of 65%. Patient is to attempt resuscitation without intubation. Related Data Home Medications Medication Instructions Recorded Confirmed acetaminophen 325 mg tablet 650 mg PO Q4H PRN Fever Or Pain 11/18/21 10/02/23 atorvastatin 80 mg tablet 80 mg PO BEDTIME 11/18/21 10/02/23 ferrous sulfate 325 mg (65 mg 325 mg PO DAILY 11/18/21 10/02/23 iron) tablet insulin lispro 100 unit/mL See Protocol subcut QIDACHS 11/18/21 10/02/23 subcutaneous pen melatonin 3 mg tablet 3 mg PO BEDTIME 11/18/21 10/02/23 polyethylene glycol 3350 17 gram 17 g PO DAILY PRN Constipation 11/18/21 10/02/23 oral powder packet (Miralax) sennosides 8.6 mg tablet (senna) 17.2 mg PO BEDTIME 11/18/21 10/02/23 sertraline 100 mg tablet 200 mg PO DAILY 11/18/21 10/02/23 tizanidine 4 mg tablet 4 mg PO BEDTIME PRN Muscle Spasm 11/18/21 10/02/23 aspirin 81 mg chewable tablet 81 mg PO DAILY 01/05/22 10/02/23 bupropion HCl 300 mg 24 hr tablet, 300 mg PO DAILY 04/09/22 10/02/23 extended release Lactobacillus rhamnosus GG 10 1 cap PO BID 10/09/22 10/02/23 billion cell capsule (Culturelle) bupropion HCl 150 mg 24 hr tablet, 1 tab PO DAILY 10/09/22 10/02/23 extended release ipratropium 0.5 mg-albuterol 3 mg 3 ml inhalation TID PRN Wheezing 10/09/22 10/02/23 (2.5 mg base)/3 mL nebulization soln potassium chloride 10 mEq 10 meq PO DAILY 10/09/22 10/02/23 tablet,extended release bisacodyl 10 mg rectal suppository 10 mg RI DAILY PRN Constipation 10/21/22 10/02/23 fluticasone 113 mcg-salmeterol 14 1 inh inhalation DAILY 11/09/22 10/02/23 mcg/actuation breath activated powdr (AirDuo RespiClick) sodium phosphates 19 gram-7 118 ml RI DAILY PRN Constipation 11/09/22 10/02/23 gram/118 mL enema (Fleet Enema) metformin 500 mg tablet 500 mg PO BID 12/27/22 10/02/23 semaglutide 0.25 mg or 0.5 mg (2 0.5 mg subcut WE 12/27/22 10/02/23 mg/3 mL) subcutaneous pen injector (ReSnap) cholecalciferol (vitamin D3) 25 25 mcg PO DAILY 04/04/23 10/02/23 mcg (1,000 unit) tablet insulin glargine 100 unit/mL 18 unit subcut DAILY 04/04/23 10/02/23 subcutaneous solution (Lantus U-100 Insulin) losartan 25 mg tablet 25 mg PO DAILY 04/04/23 10/02/23 megestrol 400 mg/10 mL (40 mg/mL) 400 mg PO TID 04/04/23 10/02/23 oral suspension olopatadine 0.2 % eye drops 1 drp ophthalmic (eye) QSHIFT 04/04/23 10/02/23 cyanocobalamin (vitamin B-12) 1,000 mcg PO DAILY 04/21/23 10/02/23 1,000 mcg capsule nystatin 100,000 unit/gram topical 1 appl topical BID 09/07/23 10/02/23 cream magnesium hydroxide 400 mg/5 mL 30 ml PO DAILY PRN Constipation 10/02/23 10/02/23 oral suspension (Milk of Magnesia) Previous Rx's Medication Instructions Recorded amlodipine 5 mg tablet 5 mg PO DAILY 30 days #30 tabs 11/26/21 furosemide 40 mg tablet 40 mg PO DAILY #30 tabs 04/05/22 acetazolamide 250 mg tablet 500 mg (2 x 250 mg) PO BID #60 tabs 01/06/23 empagliflozin 10 mg tablet 10 mg PO DAILY 30 days #30 tabs 01/17/23 (Jardiance) Allergies Allergy/AdvReac Type Severity Reaction Status Date / Time latex Allergy Unknown Unknown Verified 09/06/23 21:26 adhesive tape AdvReac Unknown Unknown Verified 09/06/23 21:26 bupropion [From Wellbutrin] AdvReac Unknown Unknown Verified 09/06/23 21:26 ibuprofen AdvReac Unknown Unknown Verified 09/06/23 21:26 Review of Systems Review of Systems: Yes Other (Patient on the CPAP can not provide full history.) [facility] Past Medical History Onset Date is defined in the Problem List Problems that require an onset date and time if occurred within 24 hrs of arrival to the ED Aortic Dissection and Rupture; Neurologic impairment; Cardiopulmonary Arrest; Endotracheal Intubation; Insertion or Replacement of Mechanical Circulatory Assist Device Medical History Sepsis Acute and chronic respiratory failure with hypercapnia Morbid obesity Obesity hypoventilation syndrome Hypoventilation associated with obesity COPD (chronic obstructive pulmonary disease) Morbid obesity with BMI of 50.0-59.9, adult Acute and chronic respiratory failure Pressure injury of deep tissue of buttock Pressure ulcer, stage II, skin breakdown Hypertrophic nonobstructive cardiomyopathy Presence of permanent cardiac pacemaker Acute on chronic respiratory failure with hypoxia and hypercapnia Metabolic encephalopathy Acute and chronic respiratory failure with hypercapnia Urinary tract infection due to ESBL Klebsiella Respiratory failure Presence of permanent cardiac pacemaker Sick sinus syndrome Morbid obesity Heart block AV third degree PAD (peripheral artery disease) Diabetic ulcer of foot associated with diabetes mellitus due to underlying condition, with fat layer exposed Atelectasis of both lungs Respiratory failure with hypoxia and hypercapnia Hypoventilation associated with obesity syndrome SMILEY (obstructive sleep apnea) Morbid obesity Pulmonary embolism CHF (congestive heart failure) Clostridium difficile infection Hypertension Diabetes mellitus, type 2 Depression Arthritis Anemia Surgical History History of total knee replacement Social History Social History Household Members: Unknown / Unable to assess Housing: Unknown / [facility] assess [facility] confused, unable to ascertain further Are you a primary patient care technician instructor to a significant other at home: No Do you presently have visiting nurse or other home services: Yes Unable to assess alcohol history related to: Unknown Alcohol intake: never Patient Tobacco Use Status: Former Tobacco user Quit Date: 30years ago Tobacco use type: Cigarette Cigarette Packs Per Day: 20 Cigarettes Per Day: 400.0 Years Smoked: 20 Smoked in Last 30 Days: No e-Cigarette/Vaping Use: Never Used Second Hand Smoke Exposure: No Use of substances other than those prescribed or required for medical reasons: No Substance Use Type: Unknown Advance Directives: Yes Advance Directives on File: Yes Advance Directives Date on File: 01/07/23 Patient : No service: No Current occupational status: disabled Physical Exam ED Vital Signs: Vital Signs - 24 hr 10/02/23 16:05 10/02/23 16:15 10/02/23 16:16 Temperature 99.8 F Pulse Rate 82 85 Respiratory Rate 35 H 24 H 35 H Blood Pressure 125/68 Pulse Oximetry 95 Oxygen Delivery Method BiPAP Fraction of Inspired Oxygen 10/02/23 17:00 10/02/23 19:05 Temperature Pulse Rate 84 82 Respiratory Rate 17 22 H Blood Pressure 109/64 Pulse Oximetry 94 95 Oxygen Delivery Method BiPAP BiPAP Fraction of Inspired Oxygen 35 BMI result Body Mass Index 49.1 Vital signs have been reviewed and appear to be correct. Blood pressure elevated. Heart rate normal. Respiratory rate normal. Temperature normal. Oxygen saturation low and hypoxic. Appearance: Alert. Oriented X1 only time. No acute distress. Head: Normal external exam. Normocephalic. Atraumatic. No Gandhi signs noted. No raccoon eyes noted Eyes: PERRLA. EOMI. Conjunctiva and sclera normal. Eyelids normal. ENT: TM's Normal. Pharynx normal. Uvula midline. Moist mucous membranes. No trismus noted. No drooling noted. No muffled voice noted. Neck: Normal inspection. Neck supple. FROM. No adenopathy. Thyroid Normal. No meningeal signs. No neck mass noted. CVS: Normal heart rate and rhythm. Heart sound normal. No murmurs noted. Pulses normal throughout. Respiratory: No respiratory distress. Painless inspiration. Breath sounds normal. No wheezes/rales/rhonchi noted. Chest nontender. No accessory muscle usage noted or decreased air movement noted. Abdomen: Soft and nontender. Bowel sounds normal in all 4 quadrants. No distention noted. No organomegaly noted. No visible injury noted. Back: No CVA tenderness. Full range of motion noted. Skin: Skin warm and dry. Normal skin color. Normal skin turgor. No rashes/lesions/lacerations noted. Extremities: No lower extremity edema. Extremities exhibit normal range of motion. Extremities nontender. Neuro: Cranial nerve exam: II-XII are grossly intact No motor deficit. No sensory deficit. Reflexes normal. Course Reevaluation(s) Reevaluation #1: 62-year-old female history of COPD, acute on chronic respiratory failure with hypercapnia and hypoxia, patient is a DNI on BiPAP with improvement clinically less lethargic. Will admit to ICU for BiPAP. Time: 19:26 Medications Administered Discontinued Medications Generic Name Dose Route Start Last Admin Trade Name Freq PRN Reason Stop Dose Admin Albuterol Sulfate 5 mg/ 0 mg 10/02/23 15:50 10/02/23 16:17 Albuterol/Ipratropium 3 ml INHALE 10/02/23 15:51 1 each ONCE ONE Administration Methylprednisolone Sodium Succinate 125 mg 10/02/23 15:25 10/02/23 17:02 Methylprednisolone Sod Succ 125 Mg/2 Ml Vial IVPUSH 10/02/23 15:26 125 mg ONCE ONE Administration Medical Decision Making Differential Diagnosis Differential Diagnoses: The differential diagnosis associated with the presentation includes (Pneumonia, pneumothorax, CHF, acute respiratory failure, hypercarbia, hypoxia.) Admission/Observation Consideration of admission/observation: Escalation of care including admission/observation considered Consult Healthcare Provider Management of the patient was discussed with: Personal Security Specialist (Dr. Armenta) Lab Data MDM Lab Attestation statement: I reviewed the patient's lab results. 10/02/23 15:55 10/02/23 15:55 Labs: Lab Results 10/02/23 10/02/23 10/02/23 Range/Units 15:43 15:55 15:59 WBC 9.1 (4.8-10.8) X10*3/uL RBC 4.58 (4.20-5.50) X10*6/uL Hgb 13.6 (12.0-16.0) g/dl Hct 47.7 H (37.0-47.0) % MCV 104.1 H (80.0-98.0) fL MCH 29.7 (27.0-33.0) pg MCHC 28.5 L (31.0-35.0) g/dl RDW 15.3 (11.0-16.0) % Plt Count 170 (160-400) X10*3/uL MPV 10.2 (9.4-12.3) fL Immature Gran % (Auto) 0.6 H (0.0-0.4) % Neut % (Auto) 78.3 H (45-73) % Lymph % (Auto) 12.7 L (20-40) % [place] % (Auto) 6.7 (2-11) % Eos % (Auto) 1.0 (0-4) % Baso % (Auto) 0.7 (0-2) % Lymph # (Auto) 1.2 (1.2-4.9) X10*3/uL [place] # (Auto) 0.6 (0.1-1.2) X10*3/uL Eos # (Auto) 0.1 (0.0-0.4) X10*3/uL Baso # (Auto) 0.1 (0.0-0.2) X10*3/uL Abs Immat Gran (auto) 0.05 H (0.00-0.03) X10*3/uL Absolute Neuts (auto) 7.1 (2.0-8.3) x10*3/uL Absolute Nucleated RBC 0.050 H (0.0-0.012) X10*3/uL Nucleated RBC % (auto) 0.6 H (0.0-0.2) /100WBC Hold Purple Top Hold Blue Top O2 Saturation 92.0 % ABG pH at Pt Temp 7.25 L (7.35-7.45) ABG pCO2 at Pt Temp 86 H* (32-45) mmHg ABG pO2 at Pt Temp 71 L (83-108) mmHg ABG HCO3 38 H (22-26) mmol/L ABG Base Excess (Actual) 7.1 mmol/L Sodium 146 H (135-145) mmol/L Potassium 4.3 (3.3-5.1) mmol/L Chloride 104 (96-108) mmol/L Carbon Dioxide 34 H (22-29) mmol/L Anion Gap 12 (12-20) BUN 19 H (9-16) mg/dL Creatinine 1.04 (0.5-1.4) mg/dL Estim Creat Clear Calc 90.2 Estimated GFR 54 Random Glucose 155 H (60-115) mg/dL Lactic Acid (0.5-2.0) mmol/L Calcium 9.8 D (8.4-10.2) mg/dL Total Bilirubin 0.3 (0.0-1.0) mg/dL Direct Bilirubin < 0.1 (0.0-0.5) mg/dL AST 9 (5-31) U/L ALT 11 (0-31) U/L Alkaline Phosphatase 70 (39-117) U/L Troponin I High Sens 18.6 H D (<3.5-17.0) ng/L B-Natriuretic Peptide 90 (<100) pg/mL Total Protein 8.0 (6.5-8.0) g/dL Albumin 4.0 (3.5-5.0) g/dL Lipase 7 L (8-78) U/L Influenza Type A (PCR) NEGATIVE (Negative) Influenza Type B (PCR) NEGATIVE (Negative) RSV RNA Qual (PCR) NEGATIVE (Negative) SARS-CoV-2 RNA (RT-PCR) NEGATIVE (Negative) 10/02/23 10/02/23 Range/Units 16:00 16:02 WBC (4.8-10.8) X10*3/uL RBC (4.20-5.50) X10*6/uL Hgb (12.0-16.0) g/dl Hct (37.0-47.0) % MCV (80.0-98.0) fL MCH (27.0-33.0) pg MCHC (31.0-35.0) g/dl RDW (11.0-16.0) % Plt Count (160-400) X10*3/uL MPV (9.4-12.3) fL Immature Gran % (Auto) (0.0-0.4) % Neut % (Auto) (45-73) % Lymph % (Auto) (20-40) % [place] % (Auto) (2-11) % Eos % (Auto) (0-4) % Baso % (Auto) (0-2) % Lymph # (Auto) (1.2-4.9) X10*3/uL [place] # (Auto) (0.1-1.2) X10*3/uL Eos # (Auto) (0.0-0.4) X10*3/uL Baso # (Auto) (0.0-0.2) X10*3/uL Abs Immat Gran (auto) (0.00-0.03) X10*3/uL Absolute Neuts (auto) (2.0-8.3) x10*3/uL Absolute Nucleated RBC (0.0-0.012) X10*3/uL Nucleated RBC % (auto) (0.0-0.2) /100WBC Hold Purple Top SEE NOTE Hold Blue Top SEE NOTE O2 Saturation % ABG pH at Pt Temp (7.35-7.45) ABG pCO2 at Pt Temp (32-45) mmHg ABG pO2 at Pt Temp (83-108) mmHg ABG HCO3 (22-26) mmol/L ABG Base Excess (Actual) mmol/L Sodium (135-145) mmol/L Potassium (3.3-5.1) mmol/L Chloride (96-108) mmol/L Carbon Dioxide (22-29) mmol/L Anion Gap (12-20) BUN (9-16) mg/dL Creatinine (0.5-1.4) mg/dL Estim Creat Clear Calc Estimated GFR Random Glucose (60-115) mg/dL Lactic Acid 0.6 (0.5-2.0) mmol/L Calcium (8.4-10.2) mg/dL Total Bilirubin (0.0-1.0) mg/dL Direct Bilirubin (0.0-0.5) mg/dL AST (5-31) U/L ALT (0-31) U/L Alkaline Phosphatase (39-117) U/L Troponin I High Sens (<3.5-17.0) ng/L B-Natriuretic Peptide (<100) pg/mL Total Protein (6.5-8.0) g/dL Albumin (3.5-5.0) g/dL Lipase (8-78) U/L Influenza Type A (PCR) (Negative) Influenza Type B (PCR) (Negative) RSV RNA Qual (PCR) (Negative) SARS-CoV-2 RNA (RT-PCR) (Negative) Independent Interpretation I performed an independent interpretation of an: Plain X-Ray (Stable examination. Again, there are low lung volumes and bilateral lower lung field streaky opacities with appearances favoring atelectasis. There is persistent retrocardiac atelectasis versus infiltrate. ) Radiology Impression Discussion of test interpretation with radiology: I have reviewed the radiologist's reading. Chronic Conditions Patient?s care impacted by: Other (Chronic respiratory failure) Critical Care Time Critical Care Time Critical Care Time: Yes Total Critical Care Time: 60 Attestation: I spent 60 minutes providing critical care service to the patient, this including time spent at the bedside to evaluate the patient, reassess the patient, monitoring vital signs, review labs, and radiographic studies, counseling the patient/family, discussing the case with consultants, disposition the patient. Discharge Plan Discharge Clinical Impression: Respiratory failure with hypercapnia, Acute respiratory failure with hypoxia Patient Disposition: Admitted As Inpatient
[2023-10-02 15:48] LABS: ABG Base Excess 7.1 mmol/L; ABG HCO3 38 mmol/L (22-26); ABG pCO2 86 mmHg (32-45); ABG pH 7.25 (7.35-7.45); ABG pO2 71 mmHg (83-108)
[2023-10-02 16:00] LABS: MANUAL DIFF FLAG NO
[2023-10-02 16:10] LABS: Basophils Absolute Auto 0.1 X10*3/uL (0.0-0.2); Basophils Percent Auto 0.7 % (0-2); Eosinophils Absolute Auto 0.1 X10*3/uL (0.0-0.4); Hematocrit 47.7 % (37.0-47.0); Hemoglobin 13.6 g/dl (12.0-16.0); Imm Gran Abs Auto 0.05 X10*3/uL (0.00-0.03); Imm Gran Pct Auto 0.6 % (0.0-0.4); Lymphocytes Absolute Auto 1.2 X10*3/uL (1.2-4.9); Lymphocytes Percent Auto 12.7 % (20-40); Mean Corpuscular HGB Conc 28.5 g/dl (31.0-35.0); Mean Corpuscular Hemoglobin 29.7 pg (27.0-33.0); Mean Corpuscular Volume 104.1 fL (80.0-98.0); Mean Platelet Volume 10.2 fL (9.4-12.3); Monocytes Absolute Auto 0.6 X10*3/uL (0.1-1.2); Monocytes Percent Auto 6.7 % (2-11); NRBC Pct Auto 0.6 /100WBC (0.0-0.2); Neutrophils Absolute Auto 7.1 x10*3/uL (2.0-8.3); Neutrophils Percent Auto 78.3 % (45-73); Platelet Count 170 X10*3/uL (160-400); Red Blood Count 4.58 X10*6/uL (4.20-5.50); Red Cell Distribution Width 15.3 % (11.0-16.0); White Blood Count 9.1 X10*3/uL (4.8-10.8)
[2023-10-02] MEDS: Albuterol Sulfate 5 MG, Albuterol/Iprat 2.5/0.5MG 3 ML 3 ML INHALE (16:17)
[2023-10-02 16:26] LABS: Lactic Acid 0.6 mmol/L (0.5-2.0)
[2023-10-02 16:35] LABS: Alanine Aminotransferase 11 U/L (0-31); Alkaline Phosphatase 70 U/L (39-117); Anion Gap 12 (12-20); Aspartate Amino Transferase 9 U/L (5-31); Bilirubin Direct < 0.1 mg/dL (0.0-0.5); Bilirubin Total 0.3 mg/dL (0.0-1.0); Blood Urea Nitrogen 19 mg/dL (9-16); Calcium 9.8 mg/dL (8.4-10.2); Carbon Dioxide 34 mmol/L (22-29); Chloride 104 mmol/L (96-108); Creatinine Clr Calc Pharmacy 90.2; Estimated Glomerular Filt Rate 54; Glucose Random 155 mg/dL (60-115); Lipase 7 U/L (8-78); Potassium 4.3 mmol/L (3.3-5.1); Sodium 146 mmol/L (135-145)
[2023-10-02 16:37] LABS: Troponin-I High Sensitivity 18.6 ng/L (<3.5-17.0)
[2023-10-02 16:45] LABS: B Type Natriuretic Peptide 90 pg/mL (<100)
[2023-10-02 16:49] LABS: Influenza A PCR NEGATIVE (Negative); Influenza B PCR NEGATIVE (Negative); Resp Syncy Virus RNA Qual PCR NEGATIVE (Negative); SARS COV2 PCR INHOUSE NEGATIVE (Negative)
--- NOTE | 2023-10-02 16:50 | PC.NURSE ---
Pt came in on cpap, Pt was sating at 76% RA. Pt is alert to self and place, seems to be confused has mentioned seeing a dog/random remarks. Pt was placed on bipap //35% for settings. Pt is able to follow commands. all labs sent. #20 right ac, 22left hand from ems.
[2023-10-02] MEDS: methylPREDNISolone Sod Succ 125 MG/2 ML VIAL IVPUSH (17:02)
--- NOTE | 2023-10-02 17:15 | PC.NURSE ---
Pt needed constant redirection, states she is leaving/ taking off o2 saturation probe.
--- NOTE | 2023-10-02 19:12 | PHA.MEDREC ---
Pharmacy Consult ? Medication Reconciliation Pharmacy has completed the medication reconciliation. [facility] Tamera Guzm[facility] CPhT
[2023-10-02 19:40] LABS: Appearance Urine Clear; Color Urine Yellow; Glucose Urine UA >=1000 mg/dL (Negative); Leukocyte Esterase Urine Small (1+) (Negative); Nitrite Urine Positive (Negative); UMIC TRIGGER UACC YES; Urine Blood Large (3+) (Negative); Urine Ketones Negative (Negative); Urine Protein 30 (1+) mg/dL (Neg-Trace)
[2023-10-02 19:45] LABS: Bacteria Urine 4+ (None Seen); Squamous Epithelial Cell Urine 0-2 /HPF (0-2); UACC Culture Trigger YES
--- NOTE | 2023-10-02 20:07 | PC.NURSE ---
PT TAKING bipap off saying its uncomfortable, respiratory called
[2023-10-02] MEDS: cefTRIAXone sodium 1 GM in 0.9 % Sodium Chloride 50 ML IV (20:54)
[2023-10-02] MEDS: Heparin Sodium,Porcine 5,000 UNIT/ML VIAL 5000 UNIT SUBCUT (20:55)
--- NOTE | 2023-10-02 21:18 | PC.NURSE ---
pt ripped off BIPAP and refusing to put on at this time, placed on NC 5L and called resp and messaged icu provider. Respiratory on way down . Pt sating 90 on 5L AT THIS TIME
--- NOTE | 2023-10-02 21:29 | PC.NURSE ---
respiratory at beside with nc5L saying to keep pt o2 88 or above . Will message provider
[2023-10-02 22:28] LABS: Venous Blood Gas Refer to POC result
[2023-10-02 22:29] LABS: VBG Base Excess 6.8 mmol/L; VBG HCO3 34 mmol/L (22-26); VBG pCO2 63 mmHg; VBG pH 7.34 (7.32-7.43); VBG pO2 120 mmHg
[2023-10-03] VITALS (25 sets, daily range): BP systolic 101–169; BP diastolic 55–81; PULSE 67–91; RESP 14–24; TEMP 35.9–37.9; O2SAT 80–98; BMI 45.6
--- NOTE | 2023-10-03 00:23 | P.HPCC_ITS ---
History of Present Illness Date of Service: 10/02/23 Attending physician on admission: Cheikh Armenta Chief Complaint: Acute Respiratory Failure Ms. Perez is a 62-year-old female with a PMH significant for COPD on 2-3L supplemental oxygen at baseline and home BiPAP, chronic respiratory failure with hypercapnia, obesity hypoventilation syndrome, insulin-dependent diabetes, HTN, HLD, HFpEF, Heart block AV third degree, dual chamber pacemaker, decubitus ulcer, morbid obesity, and ESBL UTI who was sent from [facility] to the ED for lethargy and O2 sat in the 70s% without improvement on Non- rebreather. She was placed on CPAP with improvement to 95% with FiO2 of 65%. The patient? is well known to this facility with last visit on 09/07/23-09/09/23 for acute and chronic respiratory failure with hypercapnia due to non-compliance with BiPAP and UTI found to be Proteus mirabilis. She was treated with IV Rocephin and transitioned to Ceftin to complete total 7 day treatment. She does have a MOLST form completed on 07/03/2023. She is a DNR/DNI.?? On arrival to the emergency room, the patient's blood pressure was 125/68, heart rate 82,? respiratory rate 24, O2 Sat 95% on BiPAP. Laboratory data significant for Sodium 146, CO2 34. VBG showed a pH of 7.25, pCO2 86, PO2 71, HC03 38,? base excess 7.1. UA results indicative of a UTI. Imaging: XR/XR chest 1V IMPRESSION: Stable examination. Again, there are low lung volumes and bilateral lower lung field streaky opacities with appearances favoring atelectasis. There is persistent retrocardiac atelectasis versus infiltrate. ED course: Patient was placed on BiPAP. She was given a Duo-neb, Solu-medrol 125mg, and Ceftriaxone 1g. After about 5 hours, the patient refused the BiPap and was placed on NC. She remained on 6LNC until arrival to the ICU. She was awake, cooperative, answering questions, but somewhat lethargic. She was placed back on BiPAP without issue. Admitted to the ICU for management of acute and chronic respiratory failure with hypercapnia and UTI. Review of Systems 2 Constitutional: Constitutional: Reports as per HPI Integumentary/Breasts: Skin/Breast: Reports skin ulcer (decubitus ulcer) Neurologic: Denies Abnormal speech present [facility] Past Medical History Medical History (Updated 10/03/23 @ 00:44 by Kate Enciso NP) Pressure injury of deep tissue of buttock Sepsis Acute and chronic respiratory failure with hypercapnia Morbid obesity Obesity hypoventilation syndrome Hypoventilation associated with obesity COPD (chronic obstructive pulmonary disease) Morbid obesity with BMI of 50.0-59.9, adult Acute and chronic respiratory failure Pressure ulcer, stage II, skin breakdown Hypertrophic nonobstructive cardiomyopathy Presence of permanent cardiac pacemaker Acute on chronic respiratory failure with hypoxia and hypercapnia Metabolic encephalopathy Acute and chronic respiratory failure with hypercapnia Urinary tract infection due to ESBL Klebsiella Respiratory failure Presence of permanent cardiac pacemaker Sick sinus syndrome Morbid obesity Heart block AV third degree PAD (peripheral artery disease) Diabetic ulcer of foot associated with diabetes mellitus due to underlying condition, with fat layer exposed Atelectasis of both lungs Respiratory failure with hypoxia and hypercapnia Hypoventilation associated with obesity syndrome SMILEY (obstructive sleep apnea) Morbid obesity Pulmonary embolism CHF (congestive heart failure) Clostridium difficile infection Hypertension Diabetes mellitus, type 2 Depression Arthritis Anemia Surgical History Surgical History History of total knee replacement Social History Social History Household Members: Unknown / Unable to assess Housing: Unknown / Unable to [facility] confused, unable to ascertain further Are you a primary manager managed care to a significant other at home: No Do you presently have visiting nurse or other home services: Yes Unable to assess alcohol history related to: Unknown Alcohol intake: never Patient Tobacco Use Status: Former Tobacco user Quit Date: 30years ago Tobacco use type: Cigarette Cigarette Packs Per Day: 20 Cigarettes Per Day: 400.0 Years Smoked: 20 Smoked in Last 30 Days: No e-Cigarette/Vaping Use: Never Used Second Hand Smoke Exposure: No Use of substances other than those prescribed or required for medical reasons: No Substance Use Type: Unknown Advance Directives: Yes Advance Directives on File: Yes Advance Directives Date on File: 01/07/23 Nutrition Risks: No Nutritional Risk Patient : No service: No Current occupational status: disabled Meds Allergies Allergy/AdvReac Type Severity Reaction Status Date / Time latex Allergy Unknown Unknown Verified 09/06/23 21:26 adhesive tape AdvReac Unknown Unknown Verified 09/06/23 21:26 bupropion [From Wellbutrin] AdvReac Unknown Unknown Verified 09/06/23 21:26 ibuprofen AdvReac Unknown Unknown Verified 09/06/23 21:26 Active Medications: Current Medications Dextrose (Dextrose 50 % 25 Gm/50 Ml Syringe) 25 gm IVPUSH Q15M PRN; Protocol PRN Reason: per Hypoglycemia Standing Ord. Glucose (Glucose Gel 15 Gm Gel..Gram.) 15 gm PO Q15M PRN; Protocol PRN Reason: per Hypoglycemia Standing Ord. Heparin Sodium (Porcine) (Heparin Sodium,Porcine 5,000 Unit/Ml Vial) 5,000 unit SUBCUT Q8H ROSSY Last Admin: 10/02/23 20:55 Dose: 5,000 unit Insulin Human Lispro (Insulin Lispro 100 Unit/Ml 3 Ml Vial) 0 unit SUBCUT Q6H ROSSY; Protocol Nystatin (Nystatin Cream 15 Gm Tube) 1 appl TOPICAL BID ROSSY; Protocol Last Admin: 10/02/23 21:00 Dose: Not Given Home Medications Medication Instructions Recorded Confirmed Last Taken Type acetaminophen 325 mg tablet 650 mg PO Q4H PRN Fever Or Pain 11/18/21 10/02/23 Unknown History atorvastatin 80 mg tablet 80 mg PO BEDTIME 11/18/21 10/02/23 Unknown History ferrous sulfate 325 mg (65 mg 325 mg PO DAILY 11/18/21 10/02/23 Unknown History iron) tablet insulin lispro 100 unit/mL See Protocol subcut QIDACHS 11/18/21 10/02/23 Unknown History subcutaneous pen melatonin 3 mg tablet 3 mg PO BEDTIME 11/18/21 10/02/23 Unknown History polyethylene glycol 3350 17 gram 17 g PO DAILY PRN Constipation 11/18/21 10/02/23 Unknown History oral powder packet (Miralax) sennosides 8.6 mg tablet (senna) 17.2 mg PO BEDTIME 11/18/21 10/02/23 Unknown History sertraline 100 mg tablet 200 mg PO DAILY 11/18/21 10/02/23 Unknown History tizanidine 4 mg tablet 4 mg PO BEDTIME PRN Muscle Spasm 11/18/21 10/02/23 Unknown History aspirin 81 mg chewable tablet 81 mg PO DAILY 01/05/22 10/02/23 Unknown History bupropion HCl 300 mg 24 hr tablet, 300 mg PO DAILY 04/09/22 10/02/23 Unknown History extended release Lactobacillus rhamnosus GG 10 1 cap PO BID 10/09/22 10/02/23 Unknown History billion cell capsule (Culturelle) bupropion HCl 150 mg 24 hr tablet, 1 tab PO DAILY 10/09/22 10/02/23 Unknown History extended release ipratropium 0.5 mg-albuterol 3 mg 3 ml inhalation TID PRN Wheezing 10/09/22 10/02/23 Unknown History (2.5 mg base)/3 mL nebulization soln potassium chloride 10 mEq 10 meq PO DAILY 10/09/22 10/02/23 Unknown History tablet,extended release bisacodyl 10 mg rectal suppository 10 mg VA DAILY PRN Constipation 10/21/22 10/02/23 Unknown History fluticasone 113 mcg-salmeterol 14 1 inh inhalation DAILY 11/09/22 10/02/23 Unknown History mcg/actuation breath activated powdr (AirDuo RespiClick) sodium phosphates 19 gram-7 118 ml VA DAILY PRN Constipation 11/09/22 10/02/23 Unknown History gram/118 mL enema (Fleet Enema) metformin 500 mg tablet 500 mg PO BID 12/27/22 10/02/23 Unknown History semaglutide 0.25 mg or 0.5 mg (2 0.5 mg subcut WE 12/27/22 10/02/23 Unknown History mg/3 mL) subcutaneous pen injector (Ozempic) cholecalciferol (vitamin D3) 25 25 mcg PO DAILY 04/04/23 10/02/23 Unknown History mcg (1,000 unit) tablet insulin glargine 100 unit/mL 18 unit subcut DAILY 04/04/23 10/02/23 Unknown History subcutaneous solution (Lantus U-100 Insulin) losartan 25 mg tablet 25 mg PO DAILY 04/04/23 10/02/23 Unknown History megestrol 400 mg/10 mL (40 mg/mL) 400 mg PO TID 04/04/23 10/02/23 Unknown History oral suspension olopatadine 0.2 % eye drops 1 drp ophthalmic (eye) QSHIFT 04/04/23 10/02/23 Unknown History cyanocobalamin (vitamin B-12) 1,000 mcg PO DAILY 04/21/23 10/02/23 Unknown History 1,000 mcg capsule nystatin 100,000 unit/gram topical 1 appl topical BID 09/07/23 10/02/23 Unknown History cream magnesium hydroxide 400 mg/5 mL 30 ml PO DAILY PRN Constipation 10/02/23 10/02/23 Unknown History oral suspension (Milk of Magnesia) Physical Exam 2 Vital Signs: Vital Signs: Last Vital Signs Temp 98.8 F 10/02/23 23:11 Pulse 89 10/02/23 23:11 Resp 21 H 10/02/23 23:11 BP 138/69 10/02/23 23:11 Pulse Ox 89 L 10/02/23 23:11 O2 Del Method Nasal Cannula 10/02/23 23:11 O2 Flow Rate 5 10/02/23 23:11 FiO2 35 10/02/23 17:00 Oxygen Flow Rate 35 10/02/23 16:15 BMI result Body Mass Index 49.1 Const: General: cooperative, awake and tired appearing; No acute distress N utritional Appearance: obese morbidly obese Orientation/consciousness: o riented to person and oriented to place HEENT: Head: Yes normocephalic and Yes atraumatic General nose exam: Normal external nose present (Nares patent, septum midline, sinuses nontender bilaterally.) Mouth: Normal oral and palatal mucosa present (No thrush, tongue in midline, mucosa moist.) Throat: Yes other (No erythema, no exudate.) Neck: Neck: Yes supple (no thyromegaly, trachea midline.) Carotids: normal carotid upstroke Resp: Effort & Inspection: normal respiratory effort and able to speak in complete sentences Auscultation: diminished lung sounds bilateral in the lower lung royal Cardio: Jugular venous distension: no JVD Rate: regular rate Rhythm: r egular rhythm Heart sounds: no gallops, no murmurs and no rubs Peripheral pulses: Peripheral pulses 2+ throughout GI: Palpation (GI): Soft to palpation (nondistended.) and nontender A uscultation: normal bowel sounds Back/Spine/Pelvis: Coccyx: Coccyx tenderness present (d/t decubitus ulcer) Skin: Wounds: wounds noted (decubitus ulcer) Neuro: General: oriented to person and oriented to place Speech: No Abnormal speech present Pupils: Normal pupillary reactivity/response: bilateral Extrem: General: Yes full ROM, Yes capillary refill normal and Yes no clubbing, cyanosis or edema Psych: Affect: normal affect Attitude: cooperative Results Labs 10/02/23 15:55 10/02/23 15:55 Labs: Laboratory Results - last 24 hr 10/02/23 10/02/23 10/02/23 15:43 15:55 15:59 MCV 104.1 H MCH 29.7 MCHC 28.5 L RDW 15.3 Plt Count 170 MPV 10.2 Immature Gran % (Auto) 0.6 H Neut % (Auto) 78.3 H Lymph % (Auto) 12.7 L B[place] % (Auto) 6.7 Eos % (Auto) 1.0 Baso % (Auto) 0.7 Lymph # (Auto) 1.2 Borden # (Auto) 0.6 Eos # (Auto) 0.1 Baso # (Auto) 0.1 Abs Immat Gran (auto) 0.05 H Absolute Neuts (auto) 7.1 Absolute Nucleated RBC 0.050 H Nucleated RBC % (auto) 0.6 H Hold Purple Top Hold Blue Top O2 Saturation 92.0 ABG pH at Pt Temp 7.25 L ABG pCO2 at Pt Temp 86 H* ABG pO2 at Pt Temp 71 L ABG HCO3 38 H ABG Base Excess (Actual) 7.1 VBG pH VBG pCO2 VBG pO2 VBG HCO3 VBG O2 Saturation VBG Base Excess Anion Gap 12 Estim Creat Clear Calc 90.2 Estimated GFR 54 Random Glucose 155 H Lactic Acid Calcium 9.8 D Total Bilirubin 0.3 Direct Bilirubin < 0.1 AST 9 ALT 11 Alkaline Phosphatase 70 B-Natriuretic Peptide 90 Total Protein 8.0 Albumin 4.0 Lipase 7 L Urine Color Urine Appearance Urine pH Ur Specific [place] Urine Protein Urine Glucose (UA) Urine Ketones Urine Blood Urine Nitrite Ur Leukocyte Esterase Urine RBC Urine WBC Ur Squamous Epith Cells Urine Bacteria Hyaline Casts Influenza Type A (PCR) NEGATIVE Influenza Type B (PCR) NEGATIVE RSV RNA Qual (PCR) NEGATIVE SARS-CoV-2 RNA (RT-PCR) NEGATIVE 10/02/23 10/02/23 10/02/23 16:00 16:02 19:21 MCV MCH MCHC RDW Plt Count MPV Immature Gran % (Auto) Neut % (Auto) Lymph % (Auto) B[place] % (Auto) Eos % (Auto) Baso % (Auto) Lymph # (Auto) B[place] # (Auto) Eos # (Auto) Baso # (Auto) Abs Immat Gran (auto) Absolute Neuts (auto) Absolute Nucleated RBC Nucleated RBC % (auto) Hold Purple Top SEE NOTE Hold Blue Top SEE NOTE O2 Saturation ABG pH at Pt Temp ABG pCO2 at Pt Temp ABG pO2 at Pt Temp ABG HCO3 ABG Base Excess (Actual) VBG pH VBG pCO2 VBG pO2 VBG HCO3 VBG O2 Saturation VBG Base Excess Anion Gap Estim Creat Clear Calc Estimated GFR Random Glucose Lactic Acid 0.6 Calcium Total Bilirubin Direct Bilirubin AST ALT Alkaline Phosphatase B-Natriuretic Peptide Total Protein Albumin Lipase Urine Color Yellow Urine Appearance Clear Urine pH 5.0 Ur Specific [place] 1.020 Urine Protein 30 (1+) H Urine Glucose (UA) >=1000 H Urine Ketones Negative Urine Blood Large (3+) H Urine Nitrite Positive H Ur Leukocyte Esterase Small (1+) H Urine RBC 11-20 H Urine WBC 11-20 H Ur Squamous Epith Cells 0-2 Urine Bacteria 4+ Hyaline Casts 3-5 Influenza Type A (PCR) Influenza Type B (PCR) RSV RNA Qual (PCR) SARS-CoV-2 RNA (RT-PCR) 10/02/23 22:22 MCV MCH MCHC RDW Plt Count MPV Immature Gran % (Auto) Neut % (Auto) Lymph % (Auto) B[place] % (Auto) Eos % (Auto) Baso % (Auto) Lymph # (Auto) B[place] # (Auto) Eos # (Auto) Baso # (Auto) Abs Immat Gran (auto) Absolute Neuts (auto) Absolute Nucleated RBC Nucleated RBC % (auto) Hold Purple Top Hold Blue Top O2 Saturation ABG pH at Pt Temp ABG pCO2 at Pt Temp ABG pO2 at Pt Temp ABG HCO3 ABG Base Excess (Actual) VBG pH 7.34 VBG pCO2 63 VBG pO2 120 VBG HCO3 34 H VBG O2 Saturation 99.0 VBG Base Excess 6.8 Anion Gap Estim Creat Clear Calc Estimated GFR Random Glucose Lactic Acid Calcium Total Bilirubin Direct Bilirubin AST ALT Alkaline Phosphatase B-Natriuretic Peptide Total Protein Albumin Lipase Urine Color Urine Appearance Urine pH Ur Specific [place] Urine Protein Urine Glucose (UA) Urine Ketones Urine Blood Urine Nitrite Ur Leukocyte Esterase Urine RBC Urine WBC Ur Squamous Epith Cells Urine Bacteria Hyaline Casts Influenza Type A (PCR) Influenza Type B (PCR) RSV RNA Qual (PCR) SARS-CoV-2 RNA (RT-PCR) Imaging Radiologist's Impressions: Impressions Chest X-Ray 10/02/23 16:36 IMPRESSION: Stable examination. Again, there are low lung volumes and bilateral lower lung field streaky opacities with appearances favoring atelectasis. There is persistent retrocardiac atelectasis versus infiltrate. Assessment and Plan (1) Acute respiratory failure with hypoxia: Status: Acute (2) Respiratory failure with hypercapnia: Qualifiers: Chronicity: acute on chronic Qualified Code(s): J96.22 - Acute and chronic respiratory failure with hypercapnia Status: Acute (3) Acute exacerbation of chronic obstructive airways disease: Status: Acute (4) UTI (urinary tract infection): Qualifiers: Urinary tract infection type: site unspecified Hematuria presence: with hematuria Qualified Code(s): N39.0 - Urinary tract infection, site not specified; R31.9 - Hematuria, unspecified Status: Acute (5) Pressure injury of deep tissue of buttock: Qualifiers: Laterality: unspecified laterality Qualified Code(s): L89.306 - Pressure-induced deep tissue damage of unspecified buttock Status: Acute Plan 62-year-old female with a PMH significant for COPD on 2-3L supplemental oxygen at baseline and home BiPAP, chronic respiratory failure with hypercapnia, obesity hypoventilation syndrome, insulin-dependent diabetes, HTN, HLD, HFpEF, H eart block AV third degree, dual chamber pacemaker, decubitus ulcer, morbid obesity, mood disorder and ESBL UTI admitted to the ICU for management of acute and chronic respiratory failure with hypercapnia and UTI. Neuro:? No acute issues. Oriented to person and place. Appears to be at baseline. Cardiac:? No acute issues. Continue home meds once off BiPAP. Pulmonary: Acute respiratory failure with history of COPD. Received systemic steroids, in the ER.? Scheduled and p.r.n. DuoNebs. Continue BiPAP. ? Monitor VBG.? maintain oxygen saturation 88-92%. Renal:? No acute issues? Monitor renal indices and urine output. Endo:? No acute issues.?? GI:? No acute issues. ID:? UA indicative of UTI. Given Ceftriaxone in ED. Culture pending. Heme/Onc:? No acute issues. Psych:? No acute issues. Continue home meds for mood disorder once off BiPAP Miscellaneous:? Decubitus ulcer.?Usual care. Will place wound consult. Prophylaxis:?Heparin/pneumatic hoses Diet:? NPO? Total time managing care of this patient today: 75 minutes.
[2023-10-03] MEDS: acetaZOLAMIDE sodium 500 MG VIAL IVPUSH ×3 (00:40→22:29)
[2023-10-03 00:41] LABS: ABG Refer to POC result
[2023-10-03] MEDS: Insulin Lispro 100 UNIT/ML 3 ML VIAL SUBCUT ×3 (00:49→16:55)
[2023-10-03 00:54] LABS: Glucose, Whole Blood 222 mg/dL (60-115)
--- NOTE | 2023-10-03 01:23 | HO.SKINPHOTO ---
Location: Buttocks Category: PI/ Maceration
--- NOTE | 2023-10-03 03:11 | PC.NURSE ---
Addendum entered by Phu Perez RN 10/03/23 06:40: AM VBG'S DRAWN 15 AFTER RETURN TO BIPAP....CURRENTLY CONTINUES TO NAP AND WEAR BIPAP... Addendum entered by Phu Perez RN 10/03/23 05:00: 04:50 patient drowsy to somnolent....sao2 86-87% o2 6 l/m...nriefly awake..agreed to wear bipap...bipap therapy re-applied at same settings..sao2 92% Addendum entered by Phu Perez RN 10/03/23 04:35: 04:00- 04:30 PATIENT AWAKE..AGITATED..PULLED OF BIPAP MASK AND REFUSED RE-APPLICATION...DISORIENTED TO PLACE/TIME...SAO2 80-82% ROOM AIR....INITIALLY REFUSED SUPPLEMENTAL O2...ICU COST ANALYST AT BEDSIDE AND EVENTUALLY ACCEPTED NASAL CANNULA 5 L/M...SAO2 87-88%....FREQUENT RE-ORIENTATION W/O EFFECT..CURRENTLY MAINTAINING USE OF CANNULA BUT REFUSES BIPAP..SAO2 CURRENTLY 88% Original Note: ADMIT TO 255-1 APPROX 00:20..AWAKE..CONVERSES...VAGUE RESPONSES..INAPPRPRIATE COMMENTS AT TIMES..O2 6 L/M CANNULA ON TRANSFER...SAO2 77-81%..LUNGS DIMINISHED..RETURNED TO BIPAP 14/7 AND FIO2 35%...PER ICU COST ANALYST SAO2 GOAL 88-92%...Ve 8-9 L/M...SAO2 IMPROVED TO 92-93%...ATRIAL SENSED/V-PACED RHYTHM..BP STABLE...DIAMOX 500MG IV X1 AFTER ADMIT....STAGE 2 WOUNDS TO LEFT/RIGHT BUTTOCKS AND PURPLISH DISCOLORATION ASSESSED BY COST ANALYST...PHOTO POSTED AND WOUND CONSULT PLACED...TO ATTEMPT TO MAINTAIN BIPAP IN PLACE OVERNIGHT PER COST ANALYST AND FOR AM VBG
[2023-10-03 05:14] LABS: VBG Base Excess 8.6 mmol/L; VBG HCO3 35 mmol/L (22-26); VBG pCO2 56 mmHg; VBG pO2 53 mmHg
[2023-10-03 05:15] LABS: Venous Blood Gas Refer to POC result
[2023-10-03 05:39] LABS: MANUAL DIFF FLAG NO
[2023-10-03 05:43] LABS: Basophils Percent Auto 0.1 % (0-2); Hematocrit 42.4 % (37.0-47.0); Hemoglobin 12.5 g/dl (12.0-16.0); Imm Gran Abs Auto 0.05 X10*3/uL (0.00-0.03); Imm Gran Pct Auto 0.7 % (0.0-0.4); Lymphocytes Absolute Auto 0.5 X10*3/uL (1.2-4.9); Lymphocytes Percent Auto 7.4 % (20-40); Mean Corpuscular HGB Conc 29.5 g/dl (31.0-35.0); Mean Corpuscular Hemoglobin 29.3 pg (27.0-33.0); Mean Corpuscular Volume 99.5 fL (80.0-98.0); Monocytes Absolute Auto 0.1 X10*3/uL (0.1-1.2); NRBC Pct Auto 0.6 /100WBC (0.0-0.2); Neutrophils Absolute Auto 6.2 x10*3/uL (2.0-8.3); Neutrophils Percent Auto 89.8 % (45-73); Platelet Count 218 X10*3/uL (160-400); Red Blood Count 4.26 X10*6/uL (4.20-5.50); White Blood Count 6.9 X10*3/uL (4.8-10.8)
[2023-10-03 06:01] LABS: Albumin Level 3.6 g/dL (3.5-5.0); Anion Gap 14 (12-20); Blood Urea Nitrogen 24 mg/dL (9-16); Calcium 9.3 mg/dL (8.4-10.2); Carbon Dioxide 34 mmol/L (22-29); Chloride 103 mmol/L (96-108); Creatinine Clr Calc Pharmacy 88.9; Estimated Glomerular Filt Rate 55; Glucose Random 197 mg/dL (60-115); Magnesium 2.1 mg/dL (1.6-2.6); Phosphorus 3.1 mg/dL (2.7-4.5); Potassium 4.1 mmol/L (3.3-5.1); Sodium 147 mmol/L (135-145)
[2023-10-03] MEDS: Albuterol/Iprat 2.5/0.5MG 3 ML AMPUL.NEB INHALE ×4 (08:44→19:23)
--- NOTE | 2023-10-03 09:38 | MHC.CM.PN ---
IMM DELIVERED TO PT BEDSIDE IN ICU. PT IS A LTC RESIDENT AT [facility], PLAN TO RETURN ON DC. +HCP PCP DR. VIDAL (AT [facility]) PT IS DEPENDENT WITH CARE. BLS TRANSPORT ON RETURN
--- NOTE | 2023-10-03 09:40 | PM.CCPN ---
Subjective Subjective Date of Service: 10/03/23 Interval History: 62-year-old lady with underlying obesity obesity hypoventilation syndrome with CO2 retention, COPD on 3-4 L at home, diabetes mellitus, diastolic heart failure third-degree AV block status post dual-chamber pacer, multiple admissions for acute on chronic respiratory failure admitted on 10/02/2023 with Critical Care Time (minutes): 0 Physical Exam Vital Signs: Vital Signs: Last Vital Signs Temp 99.9 F 10/03/23 09:00 Pulse 79 10/03/23 09:00 Resp 18 10/03/23 09:00 BP 150/80 H 10/03/23 09:00 Pulse Ox 96 10/03/23 09:00 O2 Del Method Nasal Cannula 10/03/23 09:00 O2 Flow Rate 6 10/03/23 09:00 FiO2 35 10/03/23 08:00 Oxygen Flow Rate 35 10/02/23 16:15 BMI result Body Mass Index 45.6 Objective Data Labs 10/03/23 05:08 10/03/23 05:08 Labs: Laboratory Results - last 24 hr 10/02/23 10/02/23 10/02/23 15:43 15:55 15:59 WBC 9.1 RBC 4.58 Hgb 13.6 Hct 47.7 H MCV 104.1 H MCH 29.7 MCHC 28.5 L RDW 15.3 Plt Count 170 MPV 10.2 Immature Gran % (Auto) 0.6 H Neut % (Auto) 78.3 H Lymph % (Auto) 12.7 L [place] % (Auto) 6.7 Eos % (Auto) 1.0 Baso % (Auto) 0.7 Lymph # (Auto) 1.2 [place] # (Auto) 0.6 Eos # (Auto) 0.1 Baso # (Auto) 0.1 Abs Immat Gran (auto) 0.05 H Absolute Neuts (auto) 7.1 Absolute Nucleated RBC 0.050 H Nucleated RBC % (auto) 0.6 H Hold Purple Top Hold Blue Top O2 Saturation 92.0 ABG pH at Pt Temp 7.25 L ABG pCO2 at Pt Temp 86 H* ABG pO2 at Pt Temp 71 L ABG HCO3 38 H ABG Base Excess (Actual) 7.1 VBG pH VBG pCO2 VBG pO2 VBG HCO3 VBG O2 Saturation VBG Base Excess Sodium 146 H Potassium 4.3 Chloride 104 Carbon Dioxide 34 H Anion Gap 12 BUN 19 H Creatinine 1.04 Estim Creat Clear Calc 90.2 Estimated GFR 54 POC Glucose Random Glucose 155 H Lactic Acid Calcium 9.8 D Phosphorus Magnesium Total Bilirubin 0.3 Direct Bilirubin < 0.1 AST 9 ALT 11 Alkaline Phosphatase 70 Troponin I High Sens 18.6 H D B-Natriuretic Peptide 90 Total Protein 8.0 Albumin 4.0 Lipase 7 L Urine Color Urine Appearance Urine pH Ur Specific [place] Urine Protein Urine Glucose (UA) Urine Ketones Urine Blood Urine Nitrite Ur Leukocyte Esterase Urine RBC Urine WBC Ur Squamous Epith Cells Urine Bacteria Hyaline Casts Influenza Type A (PCR) NEGATIVE Influenza Type B (PCR) NEGATIVE RSV RNA Qual (PCR) NEGATIVE SARS-CoV-2 RNA (RT-PCR) NEGATIVE 10/02/23 10/02/23 10/02/23 16:00 16:02 19:21 WBC RBC Hgb Hct MCV MCH MCHC RDW Plt Count MPV Immature Gran % (Auto) Neut % (Auto) Lymph % (Auto) [place] % (Auto) Eos % (Auto) Baso % (Auto) Lymph # (Auto) [place] # (Auto) Eos # (Auto) Baso # (Auto) Abs Immat Gran (auto) Absolute Neuts (auto) Absolute Nucleated RBC Nucleated RBC % (auto) Hold Purple Top SEE NOTE Hold Blue Top SEE NOTE O2 Saturation ABG pH at Pt Temp ABG pCO2 at Pt Temp ABG pO2 at Pt Temp ABG HCO3 ABG Base Excess (Actual) VBG pH VBG pCO2 VBG pO2 VBG HCO3 VBG O2 Saturation VBG Base Excess Sodium Potassium Chloride Carbon Dioxide Anion Gap BUN Creatinine Estim Creat Clear Calc Estimated GFR POC Glucose Random Glucose Lactic Acid 0.6 Calcium Phosphorus Magnesium Total Bilirubin Direct Bilirubin AST ALT Alkaline Phosphatase Troponin I High Sens B-Natriuretic Peptide Total Protein Albumin Lipase Urine Color Yellow Urine Appearance Clear Urine pH 5.0 Ur Specific [place] 1.020 Urine Protein 30 (1+) H Urine Glucose (UA) >=1000 H Urine Ketones Negative Urine Blood Large (3+) H Urine Nitrite Positive H Ur Leukocyte Esterase Small (1+) H Urine RBC 11-20 H Urine WBC 11-20 H Ur Squamous Epith Cells 0-2 Urine Bacteria 4+ Hyaline Casts 3-5 Influenza Type A (PCR) Influenza Type B (PCR) RSV RNA Qual (PCR) SARS-CoV-2 RNA (RT-PCR) 10/02/23 10/03/23 10/03/23 22:22 00:45 05:07 WBC RBC Hgb Hct MCV MCH MCHC RDW Plt Count MPV Immature Gran % (Auto) Neut % (Auto) Lymph % (Auto) [place] % (Auto) Eos % (Auto) Baso % (Auto) Lymph # (Auto) [place] # (Auto) Eos # (Auto) Baso # (Auto) Abs Immat Gran (auto) Absolute Neuts (auto) Absolute Nucleated RBC Nucleated RBC % (auto) Hold Purple Top Hold Blue Top O2 Saturation ABG pH at Pt Temp ABG pCO2 at Pt Temp ABG pO2 at Pt Temp ABG HCO3 ABG Base Excess (Actual) VBG pH 7.34 7.40 VBG pCO2 63 56 VBG pO2 120 53 VBG HCO3 34 H 35 H VBG O2 Saturation 99.0 84.0 VBG Base Excess 6.8 8.6 Sodium Potassium Chloride Carbon Dioxide Anion Gap BUN Creatinine Estim Creat Clear Calc Estimated GFR POC Glucose 222 H Random Glucose Lactic Acid Calcium Phosphorus Magnesium Total Bilirubin Direct Bilirubin AST ALT Alkaline Phosphatase Troponin I High Sens B-Natriuretic Peptide Total Protein Albumin Lipase Urine Color Urine Appearance Urine pH Ur Specific [place] Urine Protein Urine Glucose (UA) Urine Ketones Urine Blood Urine Nitrite Ur Leukocyte Esterase Urine RBC Urine WBC Ur Squamous Epith Cells Urine Bacteria Hyaline Casts Influenza Type A (PCR) Influenza Type B (PCR) RSV RNA Qual (PCR) SARS-CoV-2 RNA (RT-PCR) 10/03/23 05:08 WBC 6.9 RBC 4.26 Hgb 12.5 Hct 42.4 MCV 99.5 H MCH 29.3 MCHC 29.5 L RDW 15.0 Plt Count 218 D MPV 10.0 Immature Gran % (Auto) 0.7 H Neut % (Auto) 89.8 H Lymph % (Auto) 7.4 L [place] % (Auto) 2.0 Eos % (Auto) 0.0 Baso % (Auto) 0.1 Lymph # (Auto) 0.5 L [place] # (Auto) 0.1 Eos # (Auto) 0.0 Baso # (Auto) 0.0 Abs Immat Gran (auto) 0.05 H Absolute Neuts (auto) 6.2 Absolute Nucleated RBC 0.040 H Nucleated RBC % (auto) 0.6 H Hold Purple Top Hold Blue Top O2 Saturation ABG pH at Pt Temp ABG pCO2 at Pt Temp ABG pO2 at Pt Temp ABG HCO3 ABG Base Excess (Actual) VBG pH VBG pCO2 VBG pO2 VBG HCO3 VBG O2 Saturation VBG Base Excess Sodium 147 H Potassium 4.1 Chloride 103 Carbon Dioxide 34 H Anion Gap 14 BUN 24 H Creatinine 1.01 Estim Creat Clear Calc 88.9 Estimated GFR 55 POC Glucose Random Glucose 197 H Lactic Acid Calcium 9.3 Phosphorus 3.1 Magnesium 2.1 Total Bilirubin Direct Bilirubin AST ALT Alkaline Phosphatase Troponin I High Sens B-Natriuretic Peptide Total Protein Albumin 3.6 Lipase Urine Color Urine Appearance Urine pH Ur Specific [place] Urine Protein Urine Glucose (UA) Urine Ketones Urine Blood Urine Nitrite Ur Leukocyte Esterase Urine RBC Urine WBC Ur Squamous Epith Cells Urine Bacteria Hyaline Casts Influenza Type A (PCR) Influenza Type B (PCR) RSV RNA Qual (PCR) SARS-CoV-2 RNA (RT-PCR) Quality VTE VTE Risk Level:: Medical - moderate - high VTE Device Contraindication: N/A - Device Ordered VTE Drug Contraindication: N/A - Med Ordered
[2023-10-03] MEDS: Insulin Glargine,Hum.rec.anlog 100 UNIT/ML 10 ML VIAL 10 UNIT SUBCUT (10:18)
[2023-10-03 11:31] LABS: Glucose, Whole Blood 113 mg/dL (60-115)
[2023-10-03] MEDS: Heparin Sodium,Porcine 5,000 UNIT/ML VIAL 5000 UNIT SUBCUT ×2 (12:51→22:29)
--- NOTE | 2023-10-03 14:32 | HO.WOUND ---
Wound Consult: Initial 62yr old?F admitted to [facility] on 10/02 - See progress notes and H&P for detailed history.? Wound consult placed for sacral wound.? Patient agreeable to assessment and photo documentation.? Sacrum Etiology: ??Deep Tissue Injury Present on Admission Measurements: see charting for details Wound Bed: red maroon purple nonblanchable tissue with scattered areas of partial thickness tissue loss Drainage / Odor: Scant serosang Edges: ? irregular [place] wound: MASD - red pink light purple moist tissue consistent with chronic moisture - pt reports she is incontinent at baseline - ? No Induration, Fluctuance or Warmth noted Pain: pain reported Goals of Treatment: ? Off Load Pressure Triad and foam to allow for moist wound healing and to protect from moisture and friction Left Lower Buttock Etiology: ??Deep Tissue Injury - device related - Brief - Present on Admission Measurements: see charting for details Wound Bed: red maroon nonblanchable tissue with scattered areas of partial thickness tissue loss Drainage / Odor: none noted Edges: ? linear and attached [place] wound: MASD - red pink light purple moist tissue consistent with chronic moisture - pt reports she is incontinent at baseline and uses a disposable brief every day at her facility - ? No Induration, Fluctuance or Warmth noted Pain: denies Goals of Treatment: ? Off Load Pressure Triad for moist wound healing and to protect from moisture and friction Left Inner thigh Etiology: ?Stage 2 Pressure Injury Present on Admission Measurements: see charting for details Wound Bed: red moist tissue with epidermal sloughing noted Drainage / Odor: None noted Edges: ? irregular [place] wound: MASD - red pink moist tissue consistent with chronic moisture - pt reports she is incontinent at baseline and wear a breif - this wound may be due to brief difficult to assess - ? No Induration, Fluctuance or Warmth noted Pain: pain reported Goals of Treatment: ? Off Load Pressure Triad to allow for moist wound healing and to protect from moisture and friction Recommendations: 1. Turn and Reposition every 2 hours and as needed for patient comfort.? Use pillows or wedges to support off loading positions. 2. Off Load all bony prominences with use of pillows and heel boots if needed.? Apply Preventative foams where needed. ? 3. Monitor for incontinence and moisture control, use barrier creams when needed for prevention and treatment. 4. Provide adequate and supplemental nutrition.? 5. Order or Continue low air loss mattress. 6. When applicable maintain blood glucose levels per Providers order. 7. Sacrum - Off Load Pressure - Cleanse with PH balance spray or wipes, pat dry. ?Apply thin layer of Triad to wound bed. Do not remove all of paste between applications as this may cause further skin damage.? Cover with foam dressing to aid in off loading and protection from friction. 8. Left lower buttocks and Left inner thigh - Do not use brief for incontinence - use dry flow pad to wick moisture away from skin. Off Load Pressure - Cleanse with PH balance spray or wipes, pat dry. ?Apply thin layer of Triad to wound bed - only pat and dab no scrub and rub when soiling occurs. Reapply thin layer PRN after each episode of incontinence. Re-consult wound care Nurse for wound deterioration or wound changes.
[2023-10-03 16:22] LABS: Glucose, Whole Blood 164 mg/dL (60-115)
[2023-10-03 20:12] LABS: Glucose, Whole Blood 146 mg/dL (60-115)
[2023-10-04 03:12] VITALS: BP 148/75; PULSE 68; RESP 19; TEMP 36.2; O2SAT 94
[2023-10-04 06:00] VITALS: BMI 45.9
[2023-10-04 06:46] LABS: Venous Blood Gas Refer to POC result
[2023-10-04 06:47] LABS: VBG Base Excess 7.4 mmol/L; VBG HCO3 34 mmol/L (22-26); VBG pCO2 56 mmHg; VBG pH 7.38 (7.32-7.43); VBG pO2 67 mmHg
[2023-10-04 07:00] LABS: MANUAL DIFF FLAG NO
[2023-10-04 07:02] VITALS: BP 159/81; PULSE 70; RESP 22; TEMP 36.4; O2SAT 95
[2023-10-04 07:16] LABS: Basophils Percent Auto 0.3 % (0-2); Eosinophils Absolute Auto 0.1 X10*3/uL (0.0-0.4); Eosinophils Percent Auto 0.7 % (0-4); Hematocrit 43.2 % (37.0-47.0); Hemoglobin 12.6 g/dl (12.0-16.0); Imm Gran Abs Auto 0.04 X10*3/uL (0.00-0.03); Imm Gran Pct Auto 0.5 % (0.0-0.4); Lymphocytes Absolute Auto 2.1 X10*3/uL (1.2-4.9); Lymphocytes Percent Auto 24.2 % (20-40); Mean Corpuscular HGB Conc 29.2 g/dl (31.0-35.0); Mean Corpuscular Hemoglobin 28.8 pg (27.0-33.0); Mean Corpuscular Volume 98.9 fL (80.0-98.0); Mean Platelet Volume 10.1 fL (9.4-12.3); Monocytes Absolute Auto 0.8 X10*3/uL (0.1-1.2); Monocytes Percent Auto 8.9 % (2-11); Neutrophils Absolute Auto 5.6 x10*3/uL (2.0-8.3); Neutrophils Percent Auto 65.4 % (45-73); Platelet Count 215 X10*3/uL (160-400); Red Blood Count 4.37 X10*6/uL (4.20-5.50); Red Cell Distribution Width 15.1 % (11.0-16.0); White Blood Count 8.6 X10*3/uL (4.8-10.8)
[2023-10-04 07:26] LABS: Albumin Level 3.5 g/dL (3.5-5.0); Anion Gap 14 (12-20); Blood Urea Nitrogen 29 mg/dL (9-16); Calcium 9.2 mg/dL (8.4-10.2); Carbon Dioxide 32 mmol/L (22-29); Chloride 102 mmol/L (96-108); Creatinine Clr Calc Pharmacy 107.2; Estimated Glomerular Filt Rate > 60; Glucose Random 118 mg/dL (60-115); Phosphorus 2.2 mg/dL (2.7-4.5); Potassium 3.7 mmol/L (3.3-5.1); Sodium 144 mmol/L (135-145)
[2023-10-04] MEDS: Albuterol/Iprat 2.5/0.5MG 3 ML AMPUL.NEB INHALE ×2 (07:49→11:10)
[2023-10-04 07:51] VITALS: PULSE 70; RESP 16; O2SAT 95
[2023-10-04 07:52] LABS: Glucose, Whole Blood 106 mg/dL (60-115)
--- NOTE | 2023-10-04 09:31 | PM.DS ---
DS: Providers Provider Date of Service: 10/04/23 Date of admission: 10/02/23 19:40 Primary care physician: Tita Bal MD Consults: 10/03/23 00:19 Consult to Wound Care Routine Reason for consultation: decubitus ulcer Has provider been notified: No DS: Diagnosis Discharge Diagnosis (1) Acute respiratory failure with hypoxia: Status: Acute (2) Respiratory failure with hypercapnia: Status: Acute (3) Acute exacerbation of chronic obstructive airways disease: Status: Acute (4) UTI (urinary tract infection): Status: Acute (5) Pressure injury of deep tissue of buttock: Status: Acute DS: Summary Hospital Course Hospital Course: from initial hpi: 62-year-old female with a PMH significant for COPD on 2-3L supplemental oxygen at baseline and home BiPAP, chronic respiratory failure with hypercapnia, obesity hypoventilation syndrome, insulin-dependent diabetes, HTN, HLD, HFpEF, Heart block AV third degree, dual chamber pacemaker, decubitus ulcer, morbid obesity, and ESBL UTI who was sent from [facility] to the ED for lethargy and O2 sat in the 70s% without improvement on Non-rebreather. She was placed on CPAP with improvement to 95% with FiO2 of 65%. The patient? is well known to this facility with last visit on 09/07/23-09/09/23 for acute and chronic respiratory failure with hypercapnia due to non-compliance with BiPAP and UTI found to be Proteus mirabilis. She was treated with IV Rocephin and transitioned to Ceftin to complete total 7 day treatment. She does have a MOLST form completed on 07/03/2023. She is a DNR/DNI.?? On arrival to the emergency room, the patient's blood pressure was 125/68, heart rate 82,? respiratory rate 24, O2 Sat 95% on BiPAP. hospital course: Patient was admitted for acute metabolic encephalopathy due to acute on chronic hypoxic and hypercapnic respiratory failure due to COPD with acute decompensation, obesity hypoventilation syndrome, acute on chronic diastolic CHF. She received IV steroids, bronchodilators, Diamox, BiPAP. Mental status quickly returned to baseline, symptoms returned to baseline, ABG returned to baseline. Patient was downgraded to medical floor remained stable and will be discharged home. There was concern for positive UA, however, patient not symptomatic and likely colonization. Can monitor as outpatient for symptoms. For diabetes was continued on insulin. For morbid obesity weight loss is recommended. Patient is feeling better will be discharged back to LTC. Time Attestation Discharge coordination time: Greater than 30 minutes Quality: Safe Use of Opioids Does Pt have an Active Cancer Diagnosis on the Problem List?: No Quality: Stroke Does the patient have a stroke diagnosis?: No Physical Exam Vital Signs: Vital Signs: Last Vital Signs Temp 97.6 F 10/04/23 07:02 Pulse 70 10/04/23 07:51 Resp 16 10/04/23 07:51 BP 159/81 H 10/04/23 07:02 Pulse Ox 95 10/04/23 07:02 O2 Del Method Nasal Cannula 10/04/23 07:02 O2 Flow Rate 4 10/04/23 03:12 FiO2 35 10/03/23 08:00 Oxygen Flow Rate 35 10/02/23 16:15 BMI result Body Mass Index 45.9 General: AO X 3, no acute distress Resp: diminished bilateral, no accessory muscles used CVS: S1,S2,RRR GI: soft, non tender, non distended Neuro: motor grossly intact, alert DS: Data Data Completed and Pending Completed studies during hospitalization [Text1]: Procedures Assistance with Respiratory Ventilation, Less than 24 Consecutive Hours, Continuous Positive Airway Pressure (09/07/23) Insertion of Endotracheal Airway into Trachea, Via Natural or Artificial Opening (11/18/21) Insertion of Infusion Device into Superior Vena Cava, Percutaneous Approach (11/18/21) Introduction of Vasopressor into Peripheral Vein, Percutaneous Approach (11/18/21) Respiratory Ventilation, 24-96 Consecutive Hours (11/18/21) Ultrasonography of Superior Vena Cava, Guidance (11/18/21) Labs on day of discharge: Laboratory Results - last 24 hr 10/03/23 10/03/23 10/03/23 11:28 16:11 20:05 WBC RBC Hgb Hct MCV MCH MCHC RDW Plt Count MPV Immature Gran % (Auto) Neut % (Auto) Lymph % (Auto) [place] % (Auto) Eos % (Auto) Baso % (Auto) Lymph # (Auto) [place] # (Auto) Eos # (Auto) Baso # (Auto) Abs Immat Gran (auto) Absolute Neuts (auto) Absolute Nucleated RBC Nucleated RBC % (auto) VBG pH VBG pCO2 VBG pO2 VBG HCO3 VBG O2 Saturation VBG Base Excess Sodium Potassium Chloride Carbon Dioxide Anion Gap BUN Creatinine Estim Creat Clear Calc Estimated GFR POC Glucose 113 164 H 146 H Random Glucose Calcium Phosphorus Magnesium Albumin 10/04/23 10/04/23 10/04/23 06:31 06:41 07:22 WBC 8.6 RBC 4.37 Hgb 12.6 Hct 43.2 MCV 98.9 H MCH 28.8 MCHC 29.2 L RDW 15.1 Plt Count 215 MPV 10.1 Immature Gran % (Auto) 0.5 H Neut % (Auto) 65.4 Lymph % (Auto) 24.2 [place] % (Auto) 8.9 Eos % (Auto) 0.7 Baso % (Auto) 0.3 Lymph # (Auto) 2.1 [place] # (Auto) 0.8 Eos # (Auto) 0.1 Baso # (Auto) 0.0 Abs Immat Gran (auto) 0.04 H Absolute Neuts (auto) 5.6 Absolute Nucleated RBC 0.000 Nucleated RBC % (auto) 0.0 VBG pH 7.38 VBG pCO2 56 VBG pO2 67 VBG HCO3 34 H VBG O2 Saturation 94.0 VBG Base Excess 7.4 Sodium 144 Potassium 3.7 Chloride 102 Carbon Dioxide 32 H Anion Gap 14 BUN 29 H Creatinine 0.84 Estim Creat Clear Calc 107.2 Estimated GFR > 60 POC Glucose 106 Random Glucose 118 H Calcium 9.2 Phosphorus 2.2 L Magnesium 2.0 Albumin 3.5 Preliminary micro results at discharge 10/02/23 15:59 Blood Culture - Preliminary Blood - Venous No growth after 24 hours. 10/02/23 15:55 Blood Culture - Preliminary Blood - Venous No growth after 24 hours. 10/02/23 19:46 Urine Culture - Preliminary Urine clean catch - Urine schmitt top Culture in progress. Discharge Plan Discharge Anticipated Discharge Date/Time: 10/04/23 09:29 Patient Disposition: Home, Self-Care Discharge Diagnosis: copd Referrals: Tita Bal MD [Primary Care Provider] - 1 Week Discharge Medications: Continued furosemide 40 mg Tablet 40 mg PO DAILY Qty: 30 0RF Protocol: Hold for SBP< HOLD for SBP < : 90 ipratropium-albuterol 0.5 mg-3 mg(2.5 mg base)/3 mL Solution For Nebulization 3 ml INHALATION TID PRN (Reason: Wheezing) potassium chloride 10 mEq Tablet Extended Release 10 meq PO DAILY Hold Instructions: Recheck K level in 1 week to decide if needed or not. Culturelle 10 billion cell Capsule 1 cap PO BID bupropion HCl 150 mg tablet extended release 24 hr 1 tab PO DAILY Rx Instructions: take with 300mg; tdd 450mg Fleet Enema 19-7 gram/118 mL Enema 118 ml MN DAILY PRN (Reason: Constipation) Rx Instructions: (STEP 3) IF NO BOWEL MOVEMENT 8 HOURS AFTER BISACODYL fluticasone propion-salmeterol [AirDuo RespiClick] 113-14 mcg/actuation aerosol powdr breath activated 1 inh inhalation DAILY Rx Instructions: rinse mouth after use AND SPIT OUT atorvastatin 80 mg Tablet 80 mg PO BEDTIME sennosides [senna] 8.6 mg Tablet 17.2 mg PO BEDTIME acetaminophen 325 mg Tablet 650 mg PO Q4H PRN (Reason: Fever Or Pain) polyethylene glycol 3350 [Miralax] 17 gram Powder In Packet 17 g PO DAILY PRN (Reason: Constipation) tizanidine 4 mg Tablet 4 mg PO BEDTIME PRN (Reason: Muscle Spasm) sertraline 100 mg Tablet 200 mg PO DAILY melatonin 3 mg Tablet 3 mg PO BEDTIME ferrous sulfate 325 mg (65 mg iron) Tablet 325 mg PO DAILY insulin lispro 100 unit/mL Insulin Pen See Protocol SUBCUT QIDACHS Protocol: Insulin Correction Scale Less than or equal to 110 ---- Give (units): 0 111 to 150 Give (units): 0 151 to 200 Give (units): 0 201 to 250 Give (units): 4 251 to 300 Give (units): 6 301 to 350 Give (units): 8 Greater than 350 Give (units): 10 Call MD if Blood Glucose > : 350 Rx Instructions: SLIDING SCALE IF BLOOD GLUCOSE GREATER THAN 400, GIVE 12 UNITS AND NOTIFY MD amlodipine 5 mg Tablet 5 mg PO DAILY 30 Days Qty: 30 0RF Protocol: Hold for SBP< HOLD for SBP < : 90 aspirin 81 mg Tablet,Chewable 81 mg PO DAILY acetazolamide 250 mg Tablet 500 mg PO BID Qty: 60 0RF Jardiance 10 mg Tablet 10 mg PO DAILY 30 Days Qty: 30 0RF losartan 25 mg tablet 25 mg PO DAILY cholecalciferol (vitamin D3) 25 mcg (1,000 unit) Tablet 25 mcg PO DAILY olopatadine 0.2 % Drops 1 drp OPHTHALMIC (EYE) QSHIFT megestrol 400 mg/10 mL (40 mg/mL) suspension 400 mg PO TID insulin glargine [Lantus U-100 Insulin] 100 unit/mL solution 18 unit subcut DAILY nystatin 100,000 unit/gram Cream 1 appl TOPICAL BID Protocol: Apply to: Apply to: [place] AREA metformin 500 mg tablet 500 mg PO BID Ozempic 0.25 mg or 0.5 mg (2 mg/3 mL) pen injector 0.5 mg subcut WE magnesium hydroxide [Milk of Magnesia] 400 mg/5 mL Suspension 30 ml PO DAILY PRN (Reason: Constipation) bisacodyl 10 mg suppository 10 mg MN DAILY PRN (Reason: Constipation) Rx Instructions: GIVE IF NO RESULT FROM MILK OF MAGNESIA cyanocobalamin (vitamin B-12) 1,000 mcg capsule 1,000 mcg PO DAILY bupropion HCl 300 mg tablet extended release 24 hr 300 mg PO DAILY Rx Instructions: take with 150mg dose; tdd 450mg Discharge Orders: Discharge Order (Routine); Ordered 10/04/23 Ordered By: Salvador Claros Diet: Advance to usual diet Activity on Discharge: As tolerated Stand Alone Forms: Patient Portal Discharge page Care Plan Goals: manage copd, chf Health Concerns: copd, chf Plan of Treatment: continue home meds Assessment: see above
--- NOTE | 2023-10-04 09:35 | MHC.CM.PN ---
Addendum entered by Teagan Priest 10/04/23 13:51: PT SCHEDULE FOR BLS TRANSPORT BACK TO [facility] AT 1330 HOURS CM ATTEMPTED TO CONTACT PTS HCP/, MANOLO [phone] TO INFORM HIM OF DC MANOLO DID NOT ANSWER AND HIS VM BOX WAS FULL Original Note: PT CLEARED TO RETURN TO LTC AT [facility] TODAY UPDATES SENT TO SNF AWAITING RESPONSE
[2023-10-04] MEDS: Insulin Glargine,Hum.rec.anlog 100 UNIT/ML 10 ML VIAL 10 UNIT SUBCUT (09:50)
[2023-10-04] MEDS: Aspirin 81 MG TAB.CHEW PO (09:51)
[2023-10-04] MEDS: Sertraline HCL 100 MG TABLET 200 MG PO (09:51)
[2023-10-04] MEDS: acetaZOLAMIDE sodium 500 MG VIAL IVPUSH (09:51)
[2023-10-04] MEDS: Furosemide 40 MG TABLET PO (09:51)
[2023-10-04] MEDS: Nystatin Cream 15 GM TUBE 1 APPL TOPICAL (09:52)
[2023-10-04 11:11] VITALS: PULSE 73; RESP 18; O2SAT 95
[2023-10-04 11:26] VITALS: BP 159/80; PULSE 78; RESP 20; TEMP 36.2; O2SAT 95
[2023-10-04 11:35] LABS: Glucose, Whole Blood 99 mg/dL (60-115)
[2023-10-04] MEDS: Heparin Sodium,Porcine 5,000 UNIT/ML VIAL 5000 UNIT SUBCUT (12:46)
== END 2023-10-04 14:15 | disposition home or self-care (01) | DRG 190 ==
LOC: HO.ED 19:24 → HO.EDOVER 19:50 → HO.ICU 23:37 → HO.IMC 10-03 11:52
PROVIDERS: Internal Medicine Pulmonary Disease; Admitting Provider Nurse Practitioner Family; Emergency Provider Emergency Medicine; PCP Internal Medicine; Visit Provider Internal Medicine
DX: J44.1 Chronic obstructive pulmonary disease with (acute) exacerbation (principal); G93.41 Metabolic encephalopathy; J96.21 Acute and chronic respiratory failure with hypoxia; J96.22 Acute and chronic respiratory failure with hypercapnia; I50.33 Acute on chronic diastolic (congestive) heart failure; Z68.42 Body mass index [BMI] 45.0-49.9, adult; I11.0 Hypertensive heart disease with heart failure; I49.5 Sick sinus syndrome; Z20.822 Contact with and (suspected) exposure to COVID-19; Z95.0 Presence of cardiac pacemaker; Z99.81 Dependence on supplemental oxygen; Z87.891 Personal history of nicotine dependence; Z79.82 Long term (current) use of aspirin; Z79.51 Long term (current) use of inhaled steroids; Z79.84 Long term (current) use of oral hypoglycemic drugs; Z79.899 Other long term (current) drug therapy
CPT/HCPCS: 0241U; 36415; 71045; 80048; 80076; 81001; 82040; 82803; 82947; 83605; 83690; 83735; 83880; 84100; 84484; 85025; 87040; 87086; 93005; 94640; 94660; 99285; C1758; J0696; J1120; J1644; J2930

== ENCOUNTER → 2023-10-02 15:25 | Outpatient (BNV) | payer OTHER, MEDICAID, SELFPAY | PROVIDERS: Admitting Provider Nurse Practitioner Family; Emergency Provider Emergency Medicine; Visit Provider Internal Medicine | DX: R94.31 Abnormal electrocardiogram [ECG] [EKG] (principal) | CPT/HCPCS: 93010 ==

== ENCOUNTER → 2023-10-02 19:40 | Outpatient (BNV) | payer OTHER, MEDICAID, SELFPAY | PROVIDERS: Admitting Provider Nurse Practitioner Family; Emergency Provider Emergency Medicine; Visit Provider Nurse Practitioner Family | DX: J96.01 Acute respiratory failure with hypoxia (principal); J96.22 Acute and chronic respiratory failure with hypercapnia; J44.1 Chronic obstructive pulmonary disease with (acute) exacerbation; N39.0 Urinary tract infection, site not specified; R31.9 Hematuria, unspecified; L89.306 Pressure-induced deep tissue damage of unspecified buttock | CPT/HCPCS: 99291; 99292 ==

== ENCOUNTER → 2023-10-02 19:40 | Outpatient (BNV) | payer OTHER, MEDICAID, SELFPAY | PROVIDERS: Admitting Provider Nurse Practitioner Family; Emergency Provider Emergency Medicine; PCP Internal Medicine; Visit Provider Internal Medicine | DX: J96.21 Acute and chronic respiratory failure with hypoxia (principal); J96.22 Acute and chronic respiratory failure with hypercapnia; J44.1 Chronic obstructive pulmonary disease with (acute) exacerbation; N39.0 Urinary tract infection, site not specified; R31.9 Hematuria, unspecified; L89.306 Pressure-induced deep tissue damage of unspecified buttock | CPT/HCPCS: 99239 ==

== ENCOUNTER 2023-10-28 09:03 | Inpatient (IN) | payer MEDICARE, MEDICAID, SELFPAY ==
[2023-10-28] VITALS (20 sets, daily range): BP systolic 104–160; BP diastolic 38–80; PULSE 3–88; RESP 10–28; TEMP 35.6–37; O2SAT 70–99; BMI 46.8; BMI 45.8
--- NOTE | ~2023-10-28 | XR_ITS ---
EXAMINATION: XR CHEST CLINICAL INFORMATION: Shortness of breath COMPARISON: Chest x-ray on 10/02/2023 TECHNIQUE: Frontal view of the chest was obtained. FINDINGS: pulmonary vascularity. LUNGS: Diffuse vascular and interstitial prominence is seen in bilateral lungs. Asymmetric flame shaped airspace disease is seen in the right upper lobe. Persistent horizontal linear atelectasis is seen in lateral left lung base. No pneumothorax is seen. Left subclavian approach dual-chamber pacemaker wires are seen ending at expected location of right atrium and right ventricle. Left humeral arthroplasty prosthesis and proximal left femoral shaft cerclage wire loop are partially visualized. XR/XR chest 1V IMPRESSION: 1. Persistent Diffuse vascular and interstitial prominence suggests interstitial pulmonary edema. 2. Interval development of Asymmetric flame shaped airspace disease in the right upper lobe. Unchanged lateral left lung base horizontal linear atelectasis. 3. No interval change in position of pacemaker wires.
--- NOTE | 2023-10-28 09:19 | ECG_ITS ---
Test Reason : AMS Blood Pressure : / mmHG Vent. Rate : 080 BPM Atrial Rate : 080 BPM P-R Int : 174 ms QRS Dur : 178 ms QT Int : 442 ms P-R-T Axes : 041 -65 074 degrees QTc Int : 509 ms Atrial-sensed ventricular-paced rhythm Abnormal ECG When compared with ECG of 02-OCT-2023 15:36, Vent. rate has decreased BY 2 BPM Referred By: Generic ED Physician Electronically Signed By:Tyler Smiht
[2023-10-28 09:22] LABS: Glucose, Whole Blood 171 mg/dL (60-115)
[2023-10-28 09:39] LABS: ABG HCO3 37 mmol/L (22-26); ABG pCO2 87 mmHg (32-45); ABG pH 7.24 (7.35-7.45); ABG pO2 51 mmHg (83-108)
--- NOTE | 2023-10-28 09:50 | PC.NURSE ---
PT PLACE ON BIPAP BY RESP THERAPIST. B-I SETTINGS 02/05, RATE 18 AT 30%
--- NOTE | 2023-10-28 09:50 | ED_ITS ---
HPI - SOB/Dyspnea General Chief Complaint: Dyspnea Stated Complaint: AMS,RESP DISTRESS 12LPM FROM SNF PER EMS Time Seen by Provider: 10/28/23 09:23 History of Present Illness HPI Narrative: Patient is 62-year-old female with a history of COPD baseline on 2-3 L of oxygen. History of being on home BiPAP. Patient oxygen was kinked. The BiPAP machine was not working. Patient was noted to have change in mental status. Shortness of breath. Has a history of diabetes, hypertension, congestive heart failure with preserved EF, history of third-degree heart block status post pacemaker. History of decubitus ulcer. History of larger in size history of ESBL in the urine. Came in again for the shortness of breath. Related Data Home Medications Medication Instructions Recorded Confirmed acetaminophen 325 mg tablet 650 mg PO Q4H PRN Fever Or Pain 11/18/21 10/02/23 atorvastatin 80 mg tablet 80 mg PO BEDTIME 11/18/21 10/02/23 ferrous sulfate 325 mg (65 mg 325 mg PO DAILY 11/18/21 10/02/23 iron) tablet insulin lispro 100 unit/mL See Protocol subcut QIDACHS 11/18/21 10/02/23 subcutaneous pen melatonin 3 mg tablet 3 mg PO BEDTIME 11/18/21 10/02/23 polyethylene glycol 3350 17 gram 17 g PO DAILY PRN Constipation 11/18/21 10/02/23 oral powder packet (Miralax) sennosides 8.6 mg tablet (senna) 17.2 mg PO BEDTIME 11/18/21 10/02/23 sertraline 100 mg tablet 200 mg PO DAILY 11/18/21 10/02/23 tizanidine 4 mg tablet 4 mg PO BEDTIME PRN Muscle Spasm 11/18/21 10/02/23 aspirin 81 mg chewable tablet 81 mg PO DAILY 01/05/22 10/02/23 bupropion HCl 300 mg 24 hr tablet, 300 mg PO DAILY 04/09/22 10/02/23 extended release Lactobacillus rhamnosus GG 10 1 cap PO BID 10/09/22 10/02/23 billion cell capsule (Culturelle) bupropion HCl 150 mg 24 hr tablet, 1 tab PO DAILY 10/09/22 10/02/23 extended release ipratropium 0.5 mg-albuterol 3 mg 3 ml inhalation TID PRN Wheezing 10/09/22 10/02/23 (2.5 mg base)/3 mL nebulization soln potassium chloride 10 mEq 10 meq PO DAILY 10/09/22 10/02/23 tablet,extended release bisacodyl 10 mg rectal suppository 10 mg MD DAILY PRN Constipation 10/21/22 10/02/23 fluticasone 113 mcg-salmeterol 14 1 inh inhalation DAILY 11/09/22 10/02/23 mcg/actuation breath activated powdr (AirDuo RespiClick) sodium phosphates 19 gram-7 118 ml MD DAILY PRN Constipation 11/09/22 10/02/23 gram/118 mL enema (Fleet Enema) metformin 500 mg tablet 500 mg PO BID 12/27/22 10/02/23 semaglutide 0.25 mg or 0.5 mg (2 0.5 mg subcut WE 12/27/22 10/02/23 mg/3 mL) subcutaneous pen injector (Ozempic) cholecalciferol (vitamin D3) 25 25 mcg PO DAILY 04/04/23 10/02/23 mcg (1,000 unit) tablet insulin glargine 100 unit/mL 18 unit subcut DAILY 04/04/23 10/02/23 subcutaneous solution (Lantus U-100 Insulin) losartan 25 mg tablet 25 mg PO DAILY 04/04/23 10/02/23 megestrol 400 mg/10 mL (40 mg/mL) 400 mg PO TID 04/04/23 10/02/23 oral suspension olopatadine 0.2 % eye drops 1 drp ophthalmic (eye) QSHIFT 04/04/23 10/02/23 cyanocobalamin (vitamin B-12) 1,000 mcg PO DAILY 04/21/23 10/02/23 1,000 mcg capsule nystatin 100,000 unit/gram topical 1 appl topical BID 09/07/23 10/02/23 cream magnesium hydroxide 400 mg/5 mL 30 ml PO DAILY PRN Constipation 10/02/23 10/02/23 oral suspension (Milk of Magnesia) Previous Rx's Medication Instructions Recorded amlodipine 5 mg tablet 5 mg PO DAILY 30 days #30 tabs 11/26/21 furosemide 40 mg tablet 40 mg PO DAILY #30 tabs 04/05/22 acetazolamide 250 mg tablet 500 mg (2 x 250 mg) PO BID #60 tabs 01/06/23 empagliflozin 10 mg tablet 10 mg PO DAILY 30 days #30 tabs 01/17/23 (Jardiance) Allergies Allergy/AdvReac Type Severity Reaction Status Date / Time latex Allergy Unknown Unknown Verified 09/06/23 21:26 adhesive tape AdvReac Unknown Unknown Verified 09/06/23 21:26 bupropion [From Wellbutrin] AdvReac Unknown Unknown Verified 09/06/23 21:26 ibuprofen AdvReac Unknown Unknown Verified 09/06/23 21:26 Review of Systems 2 Review of Systems: Positive shortness of breath Patient unable to provide detailed review of systems [facility] Past Medical History Medical History Pressure injury of deep tissue of buttock Sepsis Acute and chronic respiratory failure with hypercapnia Morbid obesity Obesity hypoventilation syndrome Hypoventilation associated with obesity COPD (chronic obstructive pulmonary disease) Morbid obesity with BMI of 50.0-59.9, adult Acute and chronic respiratory failure Pressure ulcer, stage II, skin breakdown Hypertrophic nonobstructive cardiomyopathy Presence of permanent cardiac pacemaker Acute on chronic respiratory failure with hypoxia and hypercapnia Metabolic encephalopathy Acute and chronic respiratory failure with hypercapnia Urinary tract infection due to ESBL Klebsiella Respiratory failure Presence of permanent cardiac pacemaker Sick sinus syndrome Morbid obesity Heart block AV third degree PAD (peripheral artery disease) Diabetic ulcer of foot associated with diabetes mellitus due to underlying condition, with fat layer exposed Atelectasis of both lungs Respiratory failure with hypoxia and hypercapnia Hypoventilation associated with obesity syndrome SMILEY (obstructive sleep apnea) Morbid obesity Pulmonary embolism CHF (congestive heart failure) Clostridium difficile infection Hypertension Diabetes mellitus, type 2 Depression Arthritis Anemia Surgical History History of total knee replacement Social History Social History Household Members: Unknown / Unable to assess Housing: Unknown / [facility] to assess [facility] Pt confused, unable to ascertain further Are you a primary pharmacy customer care specialist to a significant other at home: No Do you presently have visiting nurse or other home services: Yes Unable to assess alcohol history related to: Unknown Alcohol intake: never Patient Tobacco Use Status: Former Tobacco user Quit Date: 30years ago Tobacco use type: Cigarette Cigarette Packs Per Day: 20 Cigarettes Per Day: 400.0 Years Smoked: 20 Smoked in Last 30 Days: No e-Cigarette/Vaping Use: Never Used Second Hand Smoke Exposure: No Use of substances other than those prescribed or required for medical reasons: No Substance Use Type: Unknown Advance Directives: Yes Advance Directives on File: Yes Advance Directives Date on File: 01/07/23 Patient : No service: No Current occupational status: disabled Physical Exam 2 Vital Signs: Vital Signs: Last Vital Signs Temp 97.5 F 10/28/23 12:29 Pulse 88 10/28/23 12:57 Resp 28 H 10/28/23 12:57 BP 117/75 10/28/23 12:57 Pulse Ox 92 10/28/23 12:08 O2 Del Method BiPAP 10/28/23 12:57 O2 Flow Rate 2 10/28/23 12:08 FiO2 30 10/28/23 12:08 BMI result Body Mass Index 46.8 Appearance: Lethargic slow to respond Eyes: Pupils equal, round and reactive to light. ENT: Pharynx normal. Neck: Normal inspection. Neck supple. No lymph nodes noted. No crepitus CVS: Normal heart rate and rhythm. Pulses normal. Normal S1 and S2 Respiratory: Breath sounds bilaterally Abdomen: Soft and nontender. Skin: Skin warm and dry. Normal skin color. Normal skin turgor. Extremities: No lower extremity edema. Neurovascular intact to all extremities. No Lacerations. No Rash Neuro: Awake oriented to self, lethargic, No motor deficit. No sensory deficit. Moving all extermities. No slurred speech Medications Administered Discontinued Medications Generic Name Dose Route Start Last Admin Trade Name Freq PRN Reason Stop Dose Admin Ceftriaxone Sodium 1 gm/ 50 mls @ 100 mls/hr 10/28/23 09:58 10/28/23 11:40 Sodium Chloride IV 10/28/23 10:27 Infused ONCE ONE Infusion Midazolam HCl 1 mg 10/28/23 11:21 10/28/23 12:04 Midazolam Hcl/Pf 2 Mg/2 Ml Vial IVPUSH 10/28/23 11:22 1 mg ONCE ONE Administration Medical Decision Making Medical Decision Making MDM Narrative: Patient's blood gas returned with a pH of 7.23 pCO2 of 86.8. Satting 80%. His blood gas is consistent with having acute on chronic CO2 retention. Started patient on BiPAP. Increase the O2. Patient repeatedly tried to take her mask off. Attempted to contact patient's next of kin but no avail. Finally got a hold the patient brother Josesito. Okay with giving some sedation and then trying a BiPAP aware of the risk of giving sedation. Patient's stayed on a BiPAP with the help of an sitter. Repeat ABG showed a pH of 7.3 with a pCO2 came down to the 70s. Acute on chronic CO2 retention but much improved from previous. Patient's white count was 8. Lactate is 0.6. BNP is 46 no evidence for congestive heart failure. Symptoms are more consistent with COPD. Patient's case discussed with the salt miner. Agree with plan of admission continue CPAP. Differential Diagnosis Differential Diagnoses: The differential diagnosis associated with the presentation includes Respiratory failure, COPD Admission/Observation Consideration of admission/observation: Escalation of care including admission/observation considered Will require admission Consult Healthcare Provider Management of the patient was discussed with: Salon Manager (Claims Counsel) Lab Data MDM Lab Attestation statement: I reviewed the patient's lab results. 10/28/23 09:53 10/28/23 09:53 Labs: Lab Results 10/28/23 10/28/23 10/28/23 Range/Units 09:19 09:31 09:53 WBC 8.1 (4.8-10.8) X10*3/uL RBC 4.58 (4.20-5.50) X10*6/uL Hgb 13.3 (12.0-16.0) g/dl Hct 47.5 H (37.0-47.0) % MCV 103.7 H (80.0-98.0) fL MCH 29.0 (27.0-33.0) pg MCHC 28.0 L (31.0-35.0) g/dl RDW 13.9 (11.0-16.0) % Plt Count 206 (160-400) X10*3/uL MPV 10.3 (9.4-12.3) fL Immature Gran % (Auto) 0.5 H (0.0-0.4) % Neut % (Auto) 73.5 H (45-73) % Lymph % (Auto) 17.2 L (20-40) % Hudson % (Auto) 7.0 (2-11) % Eos % (Auto) 1.4 (0-4) % Baso % (Auto) 0.4 (0-2) % Lymph # (Auto) 1.4 (1.2-4.9) X10*3/uL Hudson # (Auto) 0.6 (0.1-1.2) X10*3/uL Eos # (Auto) 0.1 (0.0-0.4) X10*3/uL Baso # (Auto) 0.0 (0.0-0.2) X10*3/uL Abs Immat Gran (auto) 0.04 H (0.00-0.03) X10*3/uL Absolute Neuts (auto) 6.0 (2.0-8.3) x10*3/uL Absolute Nucleated RBC 0.000 (0.0-0.012) X10*3/uL Nucleated RBC % (auto) 0.0 (0.0-0.2) /100WBC O2 Saturation 80.0 % ABG pH at Pt Temp 7.24 L (7.35-7.45) ABG pCO2 at Pt Temp 87 H* (32-45) mmHg ABG pO2 at Pt Temp 51 L (83-108) mmHg ABG HCO3 37 H (22-26) mmol/L ABG Base Excess (Actual) 7.0 mmol/L Sodium 148 H (135-145) mmol/L Potassium 4.5 D (3.3-5.1) mmol/L Chloride 104 (96-108) mmol/L Carbon Dioxide 35 H (22-29) mmol/L Anion Gap 14 (12-20) BUN 18 H (9-16) mg/dL Creatinine 0.83 (0.5-1.4) mg/dL Estim Creat Clear Calc 109.8 Estimated GFR > 60 POC Glucose 171 H (60-115) mg/dL Random Glucose 148 H (60-115) mg/dL Lactic Acid (0.5-2.0) mmol/L Calcium 9.3 (8.4-10.2) mg/dL Magnesium 2.1 (1.6-2.6) mg/dL Troponin I High Sens 17.7 H (<3.5-17.0) ng/L B-Natriuretic Peptide (<100) pg/mL 10/28/23 10/28/23 Range/Units 10:28 12:37 WBC (4.8-10.8) X10*3/uL RBC (4.20-5.50) X10*6/uL Hgb (12.0-16.0) g/dl Hct (37.0-47.0) % MCV (80.0-98.0) fL MCH (27.0-33.0) pg MCHC (31.0-35.0) g/dl RDW (11.0-16.0) % Plt Count (160-400) X10*3/uL MPV (9.4-12.3) fL Immature Gran % (Auto) (0.0-0.4) % Neut % (Auto) (45-73) % Lymph % (Auto) (20-40) % Hudson % (Auto) (2-11) % Eos % (Auto) (0-4) % Baso % (Auto) (0-2) % Lymph # (Auto) (1.2-4.9) X10*3/uL Hudson # (Auto) (0.1-1.2) X10*3/uL Eos # (Auto) (0.0-0.4) X10*3/uL Baso # (Auto) (0.0-0.2) X10*3/uL Abs Immat Gran (auto) (0.00-0.03) X10*3/uL Absolute Neuts (auto) (2.0-8.3) x10*3/uL Absolute Nucleated RBC (0.0-0.012) X10*3/uL Nucleated RBC % (auto) (0.0-0.2) /100WBC O2 Saturation 91.0 % ABG pH at Pt Temp 7.33 L (7.35-7.45) ABG pCO2 at Pt Temp 72 H* (32-45) mmHg ABG pO2 at Pt Temp 60 L (83-108) mmHg ABG HCO3 39 H (22-26) mmol/L ABG Base Excess (Actual) 10.2 mmol/L Sodium (135-145) mmol/L Potassium (3.3-5.1) mmol/L Chloride (96-108) mmol/L Carbon Dioxide (22-29) mmol/L Anion Gap (12-20) BUN (9-16) mg/dL Creatinine (0.5-1.4) mg/dL Estim Creat Clear Calc Estimated GFR POC Glucose (60-115) mg/dL Random Glucose (60-115) mg/dL Lactic Acid 0.6 (0.5-2.0) mmol/L Calcium (8.4-10.2) mg/dL Magnesium (1.6-2.6) mg/dL Troponin I High Sens (<3.5-17.0) ng/L B-Natriuretic Peptide 46 (<100) pg/mL ABG Data ABG Results: I interpreted to blood gas as above Attestation ABG: I personally reviewed and interpreted this ABG as follows: Independent Interpretation I performed an independent interpretation of an: EKG (Patient's EKG showed a paced rhythm heart rate is 80) and Plain X-Ray (Chest x-ray grossly negative for any acute infiltrate) Radiology Impression Discussion of test interpretation with radiology: I have reviewed the radiologist's reading. External Record Review External record reviewed: Inpatient record Chronic Conditions COPD Social Determinants Patient?s care significantly limited by Social Determinants of Health including: Inadequate housing Critical Care Time Critical Care Time Critical Care Time: Yes Total Critical Care Time: 90 Attestation: I have personally provided 40 minutes of critical care time exclusive of time spent on separately billable procedures. ?Time includes review of lab data, radiology results, discussion with consultants, and monitoring for potential decompensation. ?Interventions were performed as documented above Discharge Plan Discharge Clinical Impression: Respiratory failure Patient Disposition: Admitted As Inpatient
[2023-10-28 09:57] LABS: MANUAL DIFF FLAG NO
[2023-10-28 10:00] LABS: Basophils Percent Auto 0.4 % (0-2); Eosinophils Absolute Auto 0.1 X10*3/uL (0.0-0.4); Eosinophils Percent Auto 1.4 % (0-4); Hematocrit 47.5 % (37.0-47.0); Hemoglobin 13.3 g/dl (12.0-16.0); Imm Gran Abs Auto 0.04 X10*3/uL (0.00-0.03); Imm Gran Pct Auto 0.5 % (0.0-0.4); Lymphocytes Absolute Auto 1.4 X10*3/uL (1.2-4.9); Lymphocytes Percent Auto 17.2 % (20-40); Mean Corpuscular Volume 103.7 fL (80.0-98.0); Mean Platelet Volume 10.3 fL (9.4-12.3); Monocytes Absolute Auto 0.6 X10*3/uL (0.1-1.2); Neutrophils Percent Auto 73.5 % (45-73); Platelet Count 206 X10*3/uL (160-400); Red Blood Count 4.58 X10*6/uL (4.20-5.50); Red Cell Distribution Width 13.9 % (11.0-16.0); White Blood Count 8.1 X10*3/uL (4.8-10.8)
[2023-10-28 10:16] LABS: Anion Gap 14 (12-20); Blood Urea Nitrogen 18 mg/dL (9-16); Calcium 9.3 mg/dL (8.4-10.2); Carbon Dioxide 35 mmol/L (22-29); Chloride 104 mmol/L (96-108); Creatinine Clr Calc Pharmacy 109.8; Estimated Glomerular Filt Rate > 60; Glucose Random 148 mg/dL (60-115); Magnesium 2.1 mg/dL (1.6-2.6); Potassium 4.5 mmol/L (3.3-5.1); Sodium 148 mmol/L (135-145)
[2023-10-28 10:24] LABS: Troponin-I High Sensitivity 17.7 ng/L (<3.5-17.0)
--- NOTE | 2023-10-28 10:36 | PC.NURSE ---
PT IS CONFUSED. CONTINUES TO TAKE BIPAP OFF AND RE-DIRECTED MULTIPLE TIMES.
[2023-10-28 10:45] LABS: Lactic Acid 0.6 mmol/L (0.5-2.0)
--- NOTE | 2023-10-28 10:45 | PC.NURSE ---
pt placed on oxy mask at 2l/m. 02m sat 88-94%. pt is still confused.
[2023-10-28 10:51] LABS: ABG Refer to POC result
[2023-10-28 10:56] LABS: B Type Natriuretic Peptide 46 pg/mL (<100)
[2023-10-28] MEDS: cefTRIAXone sodium 1 GM in 0.9 % Sodium Chloride 50 ML IV (11:09)
[2023-10-28] MEDS: Midazolam HCl/PF 2 MG/2 ML VIAL 1 MG IVPUSH (12:04)
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
[2023-10-28 12:44] LABS: ABG Base Excess 10.2 mmol/L; ABG HCO3 39 mmol/L (22-26); ABG pCO2 72 mmHg (32-45); ABG pH 7.33 (7.35-7.45); ABG pO2 60 mmHg (83-108)
--- NOTE | 2023-10-28 13:02 | MHC.EDTECH ---
Requested hospital bed for patient. Patient very uncomfortable complaining of back pain . Upper denture removed and placed in denture cup with patient label attached. RN aware
[2023-10-28 13:53] LABS: ABG Refer to POC result
--- NOTE | 2023-10-28 14:15 | PC.NURSE ---
rn to rn report given to abdulkadir. pt to be transferred to [facility]. pt/ aware of plan of care. pt transferred to hosp bed.
--- NOTE | 2023-10-28 14:27 | PHA.MEDREC ---
Pharmacy Consult ? Medication Reconciliation Pharmacy has completed the medication reconciliation. Confirmed patient medications with a list sent from facility.
[2023-10-28] MEDS: methylPREDNISolone Sod Succ 125 MG/2 ML VIAL IVPUSH (14:36)
--- NOTE | 2023-10-28 14:53 | PM.CCHP ---
History of Present Illness Date of Service: 10/28/23 Chief Complaint: Shortness of breath and confusion 62-year-old lady with underlying morbid obesity, obesity hypoventilation syndrome with CO2 retention, COPD on home O2 at 2-3 L, diabetes mellitus, diastolic dysfunction, third-degree AV block status post pacemaker multiple admissions for acute on chronic respiratory failure admitted on 10/28/2023 with dyspnea and confusion secondary to acute on chronic hypercapnic respiratory failure with CO2 narcosis. Patient was started on BiPAP support and admitted to the intensive care unit. She was also started on additional diuresis. Review of Systems Review of Systems: Yes Unobtainable due to mental status Neurologic: Reports confusion Psychiatric: Psychiatric: Reports confusion [facility] Past Medical History Medical History (Updated 10/28/23 @ 14:56 by Cheikh Armenta MD) Acute and chronic respiratory failure with hypercapnia Morbid obesity Obesity hypoventilation syndrome Pressure injury of deep tissue of buttock Sepsis Hypoventilation associated with obesity COPD (chronic obstructive pulmonary disease) Morbid obesity with BMI of 50.0-59.9, adult Acute and chronic respiratory failure Pressure ulcer, stage II, skin breakdown Hypertrophic nonobstructive cardiomyopathy Presence of permanent cardiac pacemaker Acute on chronic respiratory failure with hypoxia and hypercapnia Metabolic encephalopathy Acute and chronic respiratory failure with hypercapnia Urinary tract infection due to ESBL Klebsiella Respiratory failure Presence of permanent cardiac pacemaker Sick sinus syndrome Morbid obesity Heart block AV third degree PAD (peripheral artery disease) Diabetic ulcer of foot associated with diabetes mellitus due to underlying condition, with fat layer exposed Atelectasis of both lungs Respiratory failure with hypoxia and hypercapnia Hypoventilation associated with obesity syndrome SMILEY (obstructive sleep apnea) Morbid obesity Pulmonary embolism CHF (congestive heart failure) Clostridium difficile infection Hypertension Diabetes mellitus, type 2 Depression Arthritis Anemia Surgical History Surgical History History of total knee replacement Social History Social History Household Members: Unknown / Unable to assess Housing: Unknown / Unable to assess [facility] Pt confused, unable to ascertain further Are you a primary inpatient care manager rn to a significant other at home: No Do you presently have visiting nurse or other home services: Yes Unable to assess alcohol history related to: Unknown Alcohol intake: never Patient Tobacco Use Status: Former Tobacco user Quit Date: 30years ago Tobacco use type: Cigarette Cigarette Packs Per Day: 20 Cigarettes Per Day: 400.0 Years Smoked: 20 Smoked in Last 30 Days: No e-Cigarette/Vaping Use: Never Used Second Hand Smoke Exposure: No Use of substances other than those prescribed or required for medical reasons: No Substance Use Type: Unknown Advance Directives: Yes Advance Directives on File: Yes Advance Directives Date on File: 01/07/23 Patient : No service: No Current occupational status: disabled Meds Allergies Allergy/AdvReac Type Severity Reaction Status Date / Time latex Allergy Unknown Unknown Verified 09/06/23 21:26 adhesive tape AdvReac Unknown Unknown Verified 09/06/23 21:26 bupropion [From Wellbutrin] AdvReac Unknown Unknown Verified 09/06/23 21:26 ibuprofen AdvReac Unknown Unknown Verified 09/06/23 21:26 Active Medications: Current Medications Acetazolamide (Acetazolamide Sodium 500 Mg Vial) 375 mg IVPUSH BID ROSSY Heparin Sodium (Porcine) (Heparin Sodium,Porcine 5,000 Unit/Ml Vial) 5,000 unit SUBCUT Q8H ROSSY Albumin Human (Kedbumin 25 %) 100 mls @ 100 mls/hr IV Q6H ROSSY Stop: 10/29/23 08:59 Furosemide 200 mg/ Sodium (Chloride) 100 mls @ 1 mls/hr IVCONT .Q24H ROSSY Insulin Human Lispro (Insulin Lispro 100 Unit/Ml 3 Ml Vial) 0 unit SUBCUT Q6H ROSSY; Protocol Home Medications Medication Instructions Recorded Confirmed Last Taken Type acetaminophen 325 mg tablet 650 mg PO Q4H PRN Fever Or Pain 11/18/21 10/28/23 Unknown History atorvastatin 80 mg tablet 80 mg PO BEDTIME 11/18/21 10/28/23 Unknown History ferrous sulfate 325 mg (65 mg 325 mg PO DAILY 11/18/21 10/28/23 Unknown History iron) tablet insulin lispro 100 unit/mL See Protocol subcut QIDACHS 11/18/21 10/28/23 Unknown History subcutaneous pen melatonin 3 mg tablet 3 mg PO BEDTIME 11/18/21 10/28/23 Unknown History polyethylene glycol 3350 17 gram 17 g PO DAILY PRN Constipation 11/18/21 10/28/23 Unknown History oral powder packet (Miralax) sennosides 8.6 mg tablet (senna) 17.2 mg PO BEDTIME 11/18/21 10/28/23 Unknown History sertraline 100 mg tablet 200 mg PO DAILY 11/18/21 10/28/23 Unknown History tizanidine 4 mg tablet 4 mg PO BEDTIME PRN Muscle Spasm 11/18/21 10/28/23 Unknown History aspirin 81 mg chewable tablet 81 mg PO DAILY 01/05/22 10/28/23 Unknown History bupropion HCl 300 mg 24 hr tablet, 300 mg PO DAILY 04/09/22 10/28/23 Unknown History extended release Lactobacillus rhamnosus GG 10 1 cap PO BID 10/09/22 10/28/23 Unknown History billion cell capsule (Culturelle) bupropion HCl 150 mg 24 hr tablet, 1 tab PO DAILY 10/09/22 10/28/23 Unknown History extended release ipratropium 0.5 mg-albuterol 3 mg 3 ml inhalation TID Wheezing 10/09/22 10/28/23 Unknown History (2.5 mg base)/3 mL nebulization soln potassium chloride 10 mEq 10 meq PO DAILY 10/09/22 10/28/23 Unknown History tablet,extended release bisacodyl 10 mg rectal suppository 10 mg DE DAILY PRN Constipation 10/21/22 10/28/23 Unknown History fluticasone 113 mcg-salmeterol 14 1 inh inhalation DAILY 11/09/22 10/28/23 Unknown History mcg/actuation breath activated powdr (AirDuo RespiClick) sodium phosphates 19 gram-7 118 ml DE DAILY PRN Constipation 11/09/22 10/28/23 Unknown History gram/118 mL enema (Fleet Enema) metformin 500 mg tablet 500 mg PO BID 12/27/22 10/28/23 Unknown History semaglutide 0.25 mg or 0.5 mg (2 0.5 mg subcut WE 12/27/22 10/28/23 Unknown History mg/3 mL) subcutaneous pen injector (Ozempic) cholecalciferol (vitamin D3) 25 25 mcg PO DAILY 04/04/23 10/28/23 Unknown History mcg (1,000 unit) tablet insulin glargine 100 unit/mL 18 unit subcut DAILY 04/04/23 10/28/23 Unknown History subcutaneous solution (Lantus U-100 Insulin) losartan 25 mg tablet 25 mg PO DAILY 04/04/23 10/28/23 Unknown History megestrol 400 mg/10 mL (40 mg/mL) 400 mg PO TID 04/04/23 10/28/23 Unknown History oral suspension olopatadine 0.2 % eye drops 1 drp ophthalmic (eye) QSHIFT 04/04/23 10/28/23 Unknown History cyanocobalamin (vitamin B-12) 1,000 mcg PO DAILY 04/21/23 10/28/23 Unknown History 1,000 mcg capsule magnesium hydroxide 400 mg/5 mL 30 ml PO DAILY PRN Constipation 10/02/23 10/28/23 Unknown History oral suspension (Milk of Magnesia) aripiprazole 2 mg tablet 2 mg PO DAILY 10/28/23 10/28/23 Unknown History Physical Exam Vital Signs: Vital Signs: Last Vital Signs Temp 97.5 F 10/28/23 12:29 Pulse 88 10/28/23 12:57 Resp 28 H 10/28/23 12:57 BP 117/75 10/28/23 12:57 Pulse Ox 92 10/28/23 12:08 O2 Del Method BiPAP 10/28/23 12:57 O2 Flow Rate 2 10/28/23 12:08 FiO2 30 10/28/23 12:08 BMI result Body Mass Index 46.8 Const: General: no acute distress and confusion Nutritional Appearance: obese Orientation/consciousness: confusion Eyes: Sclerae: sclerae normal EOM: EOMs intact bilaterally Neck: Neck: Yes no lymphadenopathy, Yes trachea midline and Yes supple Resp: Effort & Inspection: normal respiratory effort and no respiratory distress Auscultation: clear to auscultation bilaterally Cardio: Rate: regular rate Rhythm: regular rhythm Heart sounds: no gallops, no murmurs and no rubs GI: Palpation (GI): Soft to palpation and Other GI palpation findings present ( Nontender) Auscultation: normal bowel sounds Neuro: General: confusion Extrem: General: No clubbing, No cyanosis and Yes edema (1+ bilateral) Results Labs 10/28/23 09:53 10/28/23 09:53 Labs: Laboratory Results - last 24 hr 10/28/23 10/28/23 10/28/23 09:19 09:31 09:53 MCV 103.7 H MCH 29.0 MCHC 28.0 L RDW 13.9 Plt Count 206 MPV 10.3 Immature Gran % (Auto) 0.5 H Neut % (Auto) 73.5 H Lymph % (Auto) 17.2 L Jerome % (Auto) 7.0 Eos % (Auto) 1.4 Baso % (Auto) 0.4 Lymph # (Auto) 1.4 Jerome # (Auto) 0.6 Eos # (Auto) 0.1 Baso # (Auto) 0.0 Abs Immat Gran (auto) 0.04 H Absolute Neuts (auto) 6.0 Absolute Nucleated RBC 0.000 Nucleated RBC % (auto) 0.0 O2 Saturation 80.0 ABG pH at Pt Temp 7.24 L ABG pCO2 at Pt Temp 87 H* ABG pO2 at Pt Temp 51 L ABG HCO3 37 H ABG Base Excess (Actual) 7.0 Anion Gap 14 Estim Creat Clear Calc 109.8 Estimated GFR > 60 POC Glucose 171 H Random Glucose 148 H Lactic Acid Calcium 9.3 Magnesium 2.1 Troponin I High Sens 17.7 H B-Natriuretic Peptide 10/28/23 10/28/23 10:28 12:37 MCV MCH MCHC RDW Plt Count MPV Immature Gran % (Auto) Neut % (Auto) Lymph % (Auto) Jerome % (Auto) Eos % (Auto) Baso % (Auto) Lymph # (Auto) Jerome # (Auto) Eos # (Auto) Baso # (Auto) Abs Immat Gran (auto) Absolute Neuts (auto) Absolute Nucleated RBC Nucleated RBC % (auto) O2 Saturation 91.0 ABG pH at Pt Temp 7.33 L ABG pCO2 at Pt Temp 72 H* ABG pO2 at Pt Temp 60 L ABG HCO3 39 H ABG Base Excess (Actual) 10.2 Anion Gap Estim Creat Clear Calc Estimated GFR POC Glucose Random Glucose Lactic Acid 0.6 Calcium Magnesium Troponin I High Sens B-Natriuretic Peptide 46 Imaging Radiologist's Impressions: Impressions Chest X-Ray 10/28/23 13:38 IMPRESSION: 1. Persistent Diffuse vascular and interstitial prominence suggests interstitial pulmonary edema. 2. Interval development of Asymmetric flame shaped airspace disease in the right upper lobe. Unchanged lateral left lung base horizontal linear atelectasis. 3. No interval change in position of pacemaker wires. Assessment and Plan (1) CHF exacerbation: Status: Acute (2) Acute and chronic respiratory failure with hypercapnia: Status: Acute (3) Obesity hypoventilation syndrome: Status: Acute (4) Morbid obesity: Status: Acute Plan Assessment: 62-year-old lady with underlying morbid obesity, obesity hypoventilation syndrome, COPD, diastolic heart failure admitted with acute on chronic hypercapnic respiratory failure secondary to combination of noncompliance and exacerbation of underlying diastolic heart failure. Plan: Neuro: Acute metabolic encephalopathy secondary to CO2 narcosis, expect to improve with resolution of hypercapnia. Cardiac: Exacerbation of underlying chronic diastolic congestive heart failure, continue with diuresis. Pulmonary: Acute on chronic hypercapnic and hypoxic respiratory failure requiring BiPAP support. Continue to titrate off as tolerated. Underlying COPD on 2-3 L. Renal: No acute issues. Endo: No acute issues. GI: No acute issues. ID: No acute issues Heme/Onc: No acute issues. Psych: No acute issues. Miscellaneous: No acute issues. Prophylaxis: Heparin Diet: Nothing by mouth Critical care time spent: 60 minutes
[2023-10-28 15:02] LABS: Appearance Urine Cloudy; Color Urine Yellow; Glucose Urine UA >=1000 mg/dL (Negative); Leukocyte Esterase Urine Small (1+) (Negative); Nitrite Urine Positive (Negative); PH 5.5 (5.0-9.0); Specific Gravity - Urine >= 1.030 (1.005-1.025); UMIC TRIGGER UACC YES; Urine Blood Trace (Negative); Urine Ketones Trace mg/dL (Negative); Urine Protein Trace mg/dL (Neg-Trace)
[2023-10-28] MEDS: Furosemide 200 MG in 0.9 % Sodium Chloride 80 ML IVCONT (15:08)
[2023-10-28] MEDS: Albumin Human 25 % 100 ML IV ×2 (15:09→20:28)
[2023-10-28] MEDS: acetaZOLAMIDE sodium 500 MG VIAL 375 MG IVPUSH ×2 (15:09→20:27)
[2023-10-28] MEDS: Heparin Sodium,Porcine 5,000 UNIT/ML VIAL 5000 UNIT SUBCUT ×2 (15:09→22:24)
[2023-10-28 15:37] LABS: Bacteria Urine 4+ (None Seen); Squamous Epithelial Cell Urine 0-2 /HPF (0-2); UACC Culture Trigger YES
[2023-10-28 17:45] LABS: Glucose, Whole Blood 116 mg/dL (60-115)
[2023-10-28] MEDS: dexmedeTOMIDidine HCL/NS 400 MCG/100 ML INFUS..BTL 18.11 MCG IVCONT (19:03)
[2023-10-28] MEDS: Albuterol/Iprat 2.5/0.5MG 3 ML AMPUL.NEB INHALE (20:10)
[2023-10-28 22:55] LABS: Anion Gap 15 (12-20); Blood Urea Nitrogen 26 mg/dL (9-16); Calcium 9.4 mg/dL (8.4-10.2); Carbon Dioxide 34 mmol/L (22-29); Chloride 102 mmol/L (96-108); Creatinine Clr Calc Pharmacy 103.4; Estimated Glomerular Filt Rate > 60; Glucose Random 238 mg/dL (60-115); Phosphorus 2.7 mg/dL (2.7-4.5); Potassium 4.8 mmol/L (3.3-5.1); Sodium 146 mmol/L (135-145)
[2023-10-28] MEDS: dexmedeTOMIDidine HCL/NS 400 MCG/100 ML INFUS..BTL 14.49 MCG IVCONT (23:43)
[2023-10-29] VITALS (20 sets, daily range): BP systolic 127–167; BP diastolic 61–83; PULSE 60–89; RESP 12–31; TEMP 36.1–36.6; O2SAT 90–97; BMI 45.9
[2023-10-29] MEDS: Insulin Lispro 100 UNIT/ML 3 ML VIAL SUBCUT ×4 (00:14→22:37)
[2023-10-29 00:19] LABS: Glucose, Whole Blood 225 mg/dL (60-115)
[2023-10-29] MEDS: Furosemide 200 MG in 0.9 % Sodium Chloride 80 ML IVCONT (00:39)
[2023-10-29] MEDS: Albumin Human 25 % 100 ML IV ×2 (02:03→07:54)
[2023-10-29] MEDS: dexmedeTOMIDidine HCL/NS 400 MCG/100 ML INFUS..BTL 21.74 MCG IVCONT (04:19)
[2023-10-29 05:17] LABS: VBG Base Excess 7.9 mmol/L; VBG HCO3 32 mmol/L (22-26); VBG pCO2 43 mmHg; VBG pH 7.48 (7.32-7.43); VBG pO2 55 mmHg
[2023-10-29 05:22] LABS: Venous Blood Gas Refer to POC result
[2023-10-29 05:43] LABS: MANUAL DIFF FLAG NO
[2023-10-29 05:46] LABS: Basophils Percent Auto 0.1 % (0-2); Hematocrit 41.7 % (37.0-47.0); Hemoglobin 12.5 g/dl (12.0-16.0); Imm Gran Abs Auto 0.03 X10*3/uL (0.00-0.03); Imm Gran Pct Auto 0.4 % (0.0-0.4); Lymphocytes Absolute Auto 0.7 X10*3/uL (1.2-4.9); Lymphocytes Percent Auto 10.9 % (20-40); Mean Corpuscular Volume 96.8 fL (80.0-98.0); Mean Platelet Volume 10.5 fL (9.4-12.3); Monocytes Absolute Auto 0.3 X10*3/uL (0.1-1.2); Monocytes Percent Auto 4.6 % (2-11); Neutrophils Absolute Auto 5.7 x10*3/uL (2.0-8.3); Platelet Count 201 X10*3/uL (160-400); Red Blood Count 4.31 X10*6/uL (4.20-5.50); Red Cell Distribution Width 13.7 % (11.0-16.0); White Blood Count 6.8 X10*3/uL (4.8-10.8)
[2023-10-29] MEDS: Heparin Sodium,Porcine 5,000 UNIT/ML VIAL 5000 UNIT SUBCUT ×3 (05:58→22:37)
[2023-10-29 06:02] LABS: Alanine Aminotransferase 9 U/L (0-31); Albumin Level 4.2 g/dL (3.5-5.0); Alkaline Phosphatase 55 U/L (39-117); Anion Gap 16 (12-20); Aspartate Amino Transferase 9 U/L (5-31); Bilirubin Total 0.3 mg/dL (0.0-1.0); Blood Urea Nitrogen 30 mg/dL (9-16); Calcium 9.6 mg/dL (8.4-10.2); Carbon Dioxide 30 mmol/L (22-29); Chloride 101 mmol/L (96-108); Creatinine Clr Calc Pharmacy 81.1; Estimated Glomerular Filt Rate 50; Glucose Random 259 mg/dL (60-115); Phosphorus 2.3 mg/dL (2.7-4.5); Potassium 4.2 mmol/L (3.3-5.1); Sodium 143 mmol/L (135-145); Total Protein 7.5 g/dL (6.5-8.0)
[2023-10-29] MEDS: acetaZOLAMIDE sodium 500 MG VIAL 375 MG IVPUSH (07:54)
[2023-10-29] MEDS: Potassium Phosphate/NS 15 MMOL/250 ML PLAST..BAG 62.5 MMOL IV (07:55)
[2023-10-29] MEDS: Albuterol/Iprat 2.5/0.5MG 3 ML AMPUL.NEB INHALE ×3 (08:08→19:11)
--- NOTE | 2023-10-29 09:30 | P.PNCC_ITS ---
Subjective Subjective Date of Service: 10/29/23 Interval History: 62-year-old lady with underlying morbid obesity, obesity hypoventilation syndrome with CO2 retention, COPD on home O2 at 2-3 L, diabetes mellitus, diastolic dysfunction, third-degree AV block status post pacemaker multiple admissions for acute on chronic respiratory failure admitted on 10/28/2023 with dyspnea and confusion secondary to acute on chronic hypercapnic respiratory failure with CO2 narcosis. Patient was started on BiPAP support and admitted to the intensive care unit. She was also started on additional diuresis. No events overnight. Titrated off BiPAP. Critical Care Time (minutes): 0 Physical Exam 2 Vital Signs: Vital Signs: Last Vital Signs Temp 97.2 F 10/29/23 08:00 Pulse 65 10/29/23 09:00 Resp 17 10/29/23 09:00 BP 127/61 10/29/23 09:00 Pulse Ox 96 10/29/23 09:00 O2 Del Method Nasal Cannula 10/29/23 09:00 O2 Flow Rate 4 10/29/23 09:00 FiO2 30 10/29/23 03:00 BMI result Body Mass Index 45.9 Const: General: no acute distress and other (Sleepy, arousable) Nutritional Appearance: obese Eyes: Sclerae: sclerae normal EOM: EOMs intact bilaterally Neck: Neck: Yes no lymphadenopathy, Yes trachea midline and Yes supple Resp: Effort & Inspection: normal respiratory effort and no respiratory distress Auscultation: clear to auscultation bilaterally Cardio: Rate: regular rate Rhythm: regular rhythm Heart sounds: no gallops, no murmurs and no rubs GI: Palpation (GI): Soft to palpation and Other GI palpation findings present ( Nontender) Auscultation: normal bowel sounds Extrem: General: No clubbing, No cyanosis and Yes edema (Trace bilateral) Objective Data Labs 10/29/23 05:12 10/29/23 05:12 Labs: Laboratory Results - last 24 hr 10/28/23 10/28/23 10/28/23 09:31 09:53 10:28 WBC 8.1 RBC 4.58 Hgb 13.3 Hct 47.5 H MCV 103.7 H MCH 29.0 MCHC 28.0 L RDW 13.9 Plt Count 206 MPV 10.3 Immature Gran % (Auto) 0.5 H Neut % (Auto) 73.5 H Lymph % (Auto) 17.2 L [place] % (Auto) 7.0 Eos % (Auto) 1.4 Baso % (Auto) 0.4 Lymph # (Auto) 1.4 [place] # (Auto) 0.6 Eos # (Auto) 0.1 Baso # (Auto) 0.0 Abs Immat Gran (auto) 0.04 H Absolute Neuts (auto) 6.0 Absolute Nucleated RBC 0.000 Nucleated RBC % (auto) 0.0 O2 Saturation 80.0 ABG pH at Pt Temp 7.24 L ABG pCO2 at Pt Temp 87 H* ABG pO2 at Pt Temp 51 L ABG HCO3 37 H ABG Base Excess (Actual) 7.0 VBG pH VBG pCO2 VBG pO2 VBG HCO3 VBG O2 Saturation VBG Base Excess Sodium 148 H Potassium 4.5 D Chloride 104 Carbon Dioxide 35 H Anion Gap 14 BUN 18 H Creatinine 0.83 Estim Creat Clear Calc 109.8 Estimated GFR > 60 POC Glucose Random Glucose 148 H Lactic Acid 0.6 Calcium 9.3 Phosphorus Magnesium 2.1 Total Bilirubin AST ALT Alkaline Phosphatase Troponin I High Sens 17.7 H B-Natriuretic Peptide 46 Total Protein Albumin Urine Color Urine Appearance Urine pH Ur Specific [place] Urine Protein Urine Glucose (UA) Urine Ketones Urine Blood Urine Nitrite Ur Leukocyte Esterase Urine RBC Urine WBC Ur Squamous Epith Cells Urine Bacteria Hyaline Casts 10/28/23 10/28/23 10/28/23 12:37 14:42 17:34 WBC RBC Hgb Hct MCV MCH MCHC RDW Plt Count MPV Immature Gran % (Auto) Neut % (Auto) Lymph % (Auto) [place] % (Auto) Eos % (Auto) Baso % (Auto) Lymph # (Auto) [place] # (Auto) Eos # (Auto) Baso # (Auto) Abs Immat Gran (auto) Absolute Neuts (auto) Absolute Nucleated RBC Nucleated RBC % (auto) O2 Saturation 91.0 ABG pH at Pt Temp 7.33 L ABG pCO2 at Pt Temp 72 H* ABG pO2 at Pt Temp 60 L ABG HCO3 39 H ABG Base Excess (Actual) 10.2 VBG pH VBG pCO2 VBG pO2 VBG HCO3 VBG O2 Saturation VBG Base Excess Sodium Potassium Chloride Carbon Dioxide Anion Gap BUN Creatinine Estim Creat Clear Calc Estimated GFR POC Glucose 116 H Random Glucose Lactic Acid Calcium Phosphorus Magnesium Total Bilirubin AST ALT Alkaline Phosphatase Troponin I High Sens B-Natriuretic Peptide Total Protein Albumin Urine Color Yellow Urine Appearance Cloudy Urine pH 5.5 Ur Specific [place] >= 1.030 H Urine Protein Trace Urine Glucose (UA) >=1000 H Urine Ketones Trace Urine Blood Trace H Urine Nitrite Positive H Ur Leukocyte Esterase Small (1+) H Urine RBC 3-5 H Urine WBC 11-20 Ur Squamous Epith Cells 0-2 Urine Bacteria 4+ Hyaline Casts 6-10 10/28/23 10/29/23 10/29/23 22:37 00:08 05:10 WBC RBC Hgb Hct MCV MCH MCHC RDW Plt Count MPV Immature Gran % (Auto) Neut % (Auto) Lymph % (Auto) [place] % (Auto) Eos % (Auto) Baso % (Auto) Lymph # (Auto) [place] # (Auto) Eos # (Auto) Baso # (Auto) Abs Immat Gran (auto) Absolute Neuts (auto) Absolute Nucleated RBC Nucleated RBC % (auto) O2 Saturation ABG pH at Pt Temp ABG pCO2 at Pt Temp ABG pO2 at Pt Temp ABG HCO3 ABG Base Excess (Actual) VBG pH 7.48 H VBG pCO2 43 VBG pO2 55 VBG HCO3 32 H VBG O2 Saturation 90.0 VBG Base Excess 7.9 Sodium 146 H Potassium 4.8 Chloride 102 Carbon Dioxide 34 H Anion Gap 15 BUN 26 H Creatinine 0.87 Estim Creat Clear Calc 103.4 Estimated GFR > 60 POC Glucose 225 H Random Glucose 238 H Lactic Acid Calcium 9.4 Phosphorus 2.7 Magnesium 2.0 Total Bilirubin AST ALT Alkaline Phosphatase Troponin I High Sens B-Natriuretic Peptide Total Protein Albumin Urine Color Urine Appearance Urine pH Ur Specific [place] Urine Protein Urine Glucose (UA) Urine Ketones Urine Blood Urine Nitrite Ur Leukocyte Esterase Urine RBC Urine WBC Ur Squamous Epith Cells Urine Bacteria Hyaline Casts 10/29/23 05:12 WBC 6.8 RBC 4.31 Hgb 12.5 Hct 41.7 MCV 96.8 D MCH 29.0 MCHC 30.0 L RDW 13.7 Plt Count 201 MPV 10.5 Immature Gran % (Auto) 0.4 Neut % (Auto) 84.0 H Lymph % (Auto) 10.9 L [place] % (Auto) 4.6 Eos % (Auto) 0.0 Baso % (Auto) 0.1 Lymph # (Auto) 0.7 L [place] # (Auto) 0.3 Eos # (Auto) 0.0 Baso # (Auto) 0.0 Abs Immat Gran (auto) 0.03 Absolute Neuts (auto) 5.7 Absolute Nucleated RBC 0.000 Nucleated RBC % (auto) 0.0 O2 Saturation ABG pH at Pt Temp ABG pCO2 at Pt Temp ABG pO2 at Pt Temp ABG HCO3 ABG Base Excess (Actual) VBG pH VBG pCO2 VBG pO2 VBG HCO3 VBG O2 Saturation VBG Base Excess Sodium 143 Potassium 4.2 Chloride 101 Carbon Dioxide 30 H Anion Gap 16 BUN 30 H Creatinine 1.11 Estim Creat Clear Calc 81.1 Estimated GFR 50 POC Glucose Random Glucose 259 H Lactic Acid Calcium 9.6 Phosphorus 2.3 L Magnesium 2.0 Total Bilirubin 0.3 AST 9 ALT 9 Alkaline Phosphatase 55 Troponin I High Sens B-Natriuretic Peptide Total Protein 7.5 Albumin 4.2 Urine Color Urine Appearance Urine pH Ur Specific [place] Urine Protein Urine Glucose (UA) Urine Ketones Urine Blood Urine Nitrite Ur Leukocyte Esterase Urine RBC Urine WBC Ur Squamous Epith Cells Urine Bacteria Hyaline Casts Progress Note: A&P Assessment and plan (1) Acute and chronic respiratory failure with hypercapnia: Status: Acute (2) Morbid obesity: Status: Acute (3) Obesity hypoventilation syndrome: Status: Acute (4) Diabetes mellitus: Status: Acute (5) UTI (urinary tract infection): Status: Acute Plan Assessment: 62-year-old lady with underlying morbid obesity, obesity hypoventilation syndrome, COPD, diastolic heart failure admitted with acute on chronic hypercapnic respiratory failure secondary to combination of noncompliance and exacerbation of underlying diastolic heart failure. Plan: Neuro: Acute metabolic encephalopathy secondary to CO2 narcosis, resolved with resolution of hypercapnia. Cardiac: Exacerbation of underlying chronic diastolic congestive heart failure, continue with diuresis. Pulmonary: Acute on chronic hypercapnic and hypoxic respiratory failure initially requiring BiPAP support, now titrated off. Underlying COPD on 2-3 L. Renal: No acute issues. Endo: No acute issues. GI: No acute issues. ID: UTI, continue ceftriaxone Heme/Onc: No acute issues. Psych: No acute issues. Miscellaneous: No acute issues. Prophylaxis: Heparin Diet: Diabetic Quality Stroke Does the patient have a stroke diagnosis?: No VTE Prior VTE?: No VTE Risk Level:: Medical - moderate - high VTE Device Contraindication: Treatment Not Indicated VTE Drug Contraindication: N/A - Med Ordered
[2023-10-29] MEDS: Insulin Glargine,Hum.rec.anlog 100 UNIT/ML 10 ML VIAL 12 UNIT SUBCUT (09:33)
[2023-10-29] MEDS: cefTRIAXone sodium 1 GM in 0.9 % Sodium Chloride 50 ML IV (11:00)
[2023-10-29 12:04] LABS: Glucose, Whole Blood 214 mg/dL (60-115)
--- NOTE | 2023-10-29 12:37 | PC.NURSE ---
Patient transferred to [facility] tele. V Paced. Started Ceftriaxone. Keep frausto per Dr Armenta for I&O monitoring, patient on Lasix drip. Potassium phosp and Albumin replaced. Report given to next nurse
--- NOTE | 2023-10-29 13:09 | PM.EVENT ---
Event Note Date of Service: 10/29/23 Event Note: Discussed case with ICU attending. Transfer to medical floor. Treated for hypoxic respiratory failure secondary to volume overload. BiPAP, diuresis. Currently on Lasix drip. Time Spent With Patient Time: Total time managing care of this patient today ____ minutes.
--- NOTE | 2023-10-29 13:23 | MHC.CM.PN ---
IMM 10/29/23, CM ATTEMPTED TO MEET W/PT TO DELIVER IMM WHICH WAS DELIVERED HOWEVER PT KEP FALLING ASLEEP, PT DID GIVE CM PERMISSION TO CALL HER HCP MANOLO BRENNAN HOWEVER NO ANSWER AND MAILBOX FULL. PT LTC RESIDENT AT [facility] AND PLAN IS TO RETURN WHEN MEDICALLY CLEARED FOR DC.
--- NOTE | 2023-10-29 14:16 | P.CONCA_ITS ---
History of Present Illness History of Present Illness Date of Service: 10/29/23 Requesting physician: Belinda Brooks Chief complaint: respiratory distress CHF Narrative: 62-year-old female who we have been asked to see for congestive heart failure. She just got out of intensive care unit where she presented with hypercapnic respiratory failure. She was also found to be in congestive heart failure. She has been on Lasix drip 5 milligram/hour along with acetazolamide. She does not remember why she went to the emergency department or in the ICU. She is still quite confused and is unable to recall a lot of the details. She is denying any chest pain or shortness of breath. She is saying she does not recall having any breathing problems at home but did notice that her legs were swollen. She recently had pacemaker placed. Overall feeling better and denying any symptoms currently. She has history of diabetes, hypertension and hyperlipidemia. [facility] Past Medical History Medical History (Updated 10/29/23 @ 09:32 by Cheikh Armenta MD) Acute and chronic respiratory failure with hypercapnia Morbid obesity Obesity hypoventilation syndrome Pressure injury of deep tissue of buttock Sepsis Hypoventilation associated with obesity COPD (chronic obstructive pulmonary disease) Morbid obesity with BMI of 50.0-59.9, adult Acute and chronic respiratory failure Pressure ulcer, stage II, skin breakdown Hypertrophic nonobstructive cardiomyopathy Presence of permanent cardiac pacemaker Acute on chronic respiratory failure with hypoxia and hypercapnia Metabolic encephalopathy Acute and chronic respiratory failure with hypercapnia Urinary tract infection due to ESBL Klebsiella Respiratory failure Presence of permanent cardiac pacemaker Sick sinus syndrome Morbid obesity Heart block AV third degree PAD (peripheral artery disease) Diabetic ulcer of foot associated with diabetes mellitus due to underlying condition, with fat layer exposed Atelectasis of both lungs Respiratory failure with hypoxia and hypercapnia Hypoventilation associated with obesity syndrome SMILEY (obstructive sleep apnea) Morbid obesity Pulmonary embolism CHF (congestive heart failure) Clostridium difficile infection Hypertension Diabetes mellitus, type 2 Depression Arthritis Anemia Surgical History Surgical History History of total knee replacement Social History Social History Household Members: Unknown / Unable to assess Housing: Unknown / Unable to assess [facility] Pt confused, unable to ascertain further Are you a primary direct support professional caregiver to a significant other at home: No Do you presently have visiting nurse or other home services: Yes Unable to assess alcohol history related to: Unknown Alcohol intake: never Patient Tobacco Use Status: Former Tobacco user Quit Date: 30years ago Tobacco use type: Cigarette Cigarette Packs Per Day: 20 Cigarettes Per Day: 400.0 Years Smoked: 20 e-Cigarette/Vaping Use: Never Used Second Hand Smoke Exposure: No Substance Use Type: Unknown Advance Directives Date on File: 01/07/23 service: No Current occupational status: disabled Meds Allergies Allergy/AdvReac Type Severity Reaction Status Date / Time latex Allergy Unknown Unknown Verified 09/06/23 21:26 adhesive tape AdvReac Unknown Unknown Verified 09/06/23 21:26 bupropion [From Wellbutrin] AdvReac Unknown Unknown Verified 09/06/23 21:26 ibuprofen AdvReac Unknown Unknown Verified 09/06/23 21:26 Active Medications: Current Medications Acetazolamide (Acetazolamide Sodium 500 Mg Vial) 375 mg IVPUSH BID [facility] Last Admin: 10/29/23 07:54 Dose: 375 mg Albuterol/Ipratropium (Albuterol/Iprat 2.5/0.5mg 3 Ml Ampul.Neb) 3 ml INHALE RQ6H WHILE AWAKE [facility] Last Admin: 10/29/23 08:08 Dose: 3 ml Heparin Sodium (Porcine) (Heparin Sodium,Porcine 5,000 Unit/Ml Vial) 5,000 unit SUBCUT Q8H [facility] Last Admin: 10/29/23 05:58 Dose: 5,000 unit Furosemide 200 mg/ Sodium (Chloride) 100 mls @ 2.5 mls/hr IVCONT .Q24H [facility] Last Admin: 10/29/23 00:39 Dose: 5 mg/hr, 2.5 mls/hr Ceftriaxone Sodium 1 gm/ (Sodium Chloride) 50 mls @ 100 mls/hr IV Q24H [facility] Last Infusion: 10/29/23 11:28 Dose: Infused Insulin Glargine (Insulin Glargine,Hum.Rec.Anlog 100 Unit/Ml 10 Ml Vial) 12 unit SUBCUT DAILY [facility] Last Admin: 10/29/23 09:33 Dose: 12 unit Insulin Human Lispro (Insulin Lispro 100 Unit/Ml 3 Ml Vial) 0 unit SUBCUT QIDACHS [facility]; Protocol Last Admin: 10/29/23 12:16 Dose: 4 unit Home Medications Medication Instructions Recorded Confirmed Last Taken Type acetaminophen 325 mg tablet 650 mg PO Q4H PRN Fever Or Pain 11/18/21 10/28/23 Unknown History atorvastatin 80 mg tablet 80 mg PO BEDTIME 11/18/21 10/28/23 Unknown History ferrous sulfate 325 mg (65 mg 325 mg PO DAILY 11/18/21 10/28/23 Unknown History iron) tablet insulin lispro 100 unit/mL See Protocol subcut QIDACHS 11/18/21 10/28/23 Unknown History subcutaneous pen melatonin 3 mg tablet 3 mg PO BEDTIME 11/18/21 10/28/23 Unknown History polyethylene glycol 3350 17 gram 17 g PO DAILY PRN Constipation 11/18/21 10/28/23 Unknown History oral powder packet (Miralax) sennosides 8.6 mg tablet (senna) 17.2 mg PO BEDTIME 11/18/21 10/28/23 Unknown History sertraline 100 mg tablet 200 mg PO DAILY 11/18/21 10/28/23 Unknown History tizanidine 4 mg tablet 4 mg PO BEDTIME PRN Muscle Spasm 11/18/21 10/28/23 Unknown History aspirin 81 mg chewable tablet 81 mg PO DAILY 01/05/22 10/28/23 Unknown History bupropion HCl 300 mg 24 hr tablet, 300 mg PO DAILY 04/09/22 10/28/23 Unknown History extended release Lactobacillus rhamnosus GG 10 1 cap PO BID 10/09/22 10/28/23 Unknown History billion cell capsule (Culturelle) bupropion HCl 150 mg 24 hr tablet, 1 tab PO DAILY 10/09/22 10/28/23 Unknown History extended release ipratropium 0.5 mg-albuterol 3 mg 3 ml inhalation TID Wheezing 10/09/22 10/28/23 Unknown History (2.5 mg base)/3 mL nebulization soln potassium chloride 10 mEq 10 meq PO DAILY 10/09/22 10/28/23 Unknown History tablet,extended release bisacodyl 10 mg rectal suppository 10 mg ID DAILY PRN Constipation 10/21/22 10/28/23 Unknown History fluticasone 113 mcg-salmeterol 14 1 inh inhalation DAILY 11/09/22 10/28/23 Unknown History mcg/actuation breath activated powdr (AirDuo RespiClick) sodium phosphates 19 gram-7 118 ml ID DAILY PRN Constipation 11/09/22 10/28/23 Unknown History gram/118 mL enema (Fleet Enema) metformin 500 mg tablet 500 mg PO BID 12/27/22 10/28/23 Unknown History semaglutide 0.25 mg or 0.5 mg (2 0.5 mg subcut WE 12/27/22 10/28/23 Unknown History mg/3 mL) subcutaneous pen injector (Ozempic) cholecalciferol (vitamin D3) 25 25 mcg PO DAILY 04/04/23 10/28/23 Unknown History mcg (1,000 unit) tablet insulin glargine 100 unit/mL 18 unit subcut DAILY 04/04/23 10/28/23 Unknown History subcutaneous solution (Lantus U-100 Insulin) losartan 25 mg tablet 25 mg PO DAILY 04/04/23 10/28/23 Unknown History megestrol 400 mg/10 mL (40 mg/mL) 400 mg PO TID 04/04/23 10/28/23 Unknown History oral suspension olopatadine 0.2 % eye drops 1 drp ophthalmic (eye) QSHIFT 04/04/23 10/28/23 Unknown History cyanocobalamin (vitamin B-12) 1,000 mcg PO DAILY 04/21/23 10/28/23 Unknown History 1,000 mcg capsule magnesium hydroxide 400 mg/5 mL 30 ml PO DAILY PRN Constipation 10/02/23 10/28/23 Unknown History oral suspension (Milk of Magnesia) aripiprazole 2 mg tablet 2 mg PO DAILY 10/28/23 10/28/23 Unknown History Physical Exam 2 Vital Signs: Vital Signs: Last Vital Signs Temp 97.5 F 10/29/23 12:49 Pulse 89 10/29/23 12:49 Resp 18 10/29/23 12:49 BP 134/75 10/29/23 12:49 Pulse Ox 92 10/29/23 12:49 O2 Del Method Nasal Cannula 10/29/23 12:49 O2 Flow Rate 4 10/29/23 12:49 FiO2 30 10/29/23 03:00 BMI result Body Mass Index 45.9 GENERAL APPEARANCE: in no acute distress, pleasant. Morbidly obese. NECK: no carotid bruit, + jugular venous distention. SKIN: no suspicious lesions, warm and dry. HEART: Systolic murmur aortic area, regular rate and rhythm. LUNGS: clear to auscultation bilaterally. ABDOMEN: soft, nontender. EXTREMITIES: no edema. PERIPHERAL PULSES: equal. NEUROLOGIC: No gross deficits, AAO X 3 Objective Labs and Meds 10/29/23 05:12 10/29/23 05:12 Lab results: Laboratory Results - last 24 hr 10/28/23 10/28/23 10/28/23 14:42 17:34 22:37 WBC RBC Hgb Hct MCV MCH MCHC RDW Plt Count MPV Immature Gran % (Auto) Neut % (Auto) Lymph % (Auto) [place] % (Auto) Eos % (Auto) Baso % (Auto) Lymph # (Auto) [place] # (Auto) Eos # (Auto) Baso # (Auto) Abs Immat Gran (auto) Absolute Neuts (auto) Absolute Nucleated RBC Nucleated RBC % (auto) VBG pH VBG pCO2 VBG pO2 VBG HCO3 VBG O2 Saturation VBG Base Excess Sodium 146 H Potassium 4.8 Chloride 102 Carbon Dioxide 34 H Anion Gap 15 BUN 26 H Creatinine 0.87 Estim Creat Clear Calc 103.4 Estimated GFR > 60 POC Glucose 116 H Random Glucose 238 H Calcium 9.4 Phosphorus 2.7 Magnesium 2.0 Total Bilirubin AST ALT Alkaline Phosphatase Total Protein Albumin Urine Color Yellow Urine Appearance Cloudy Urine pH 5.5 Ur Specific [place] >= 1.030 H Urine Protein Trace Urine Glucose (UA) >=1000 H Urine Ketones Trace Urine Blood Trace H Urine Nitrite Positive H Ur Leukocyte Esterase Small (1+) H Urine RBC 3-5 H Urine WBC 11-20 Ur Squamous Epith Cells 0-2 Urine Bacteria 4+ Hyaline Casts 6-10 10/29/23 10/29/23 10/29/23 00:08 05:10 05:12 WBC 6.8 RBC 4.31 Hgb 12.5 Hct 41.7 MCV 96.8 D MCH 29.0 MCHC 30.0 L RDW 13.7 Plt Count 201 MPV 10.5 Immature Gran % (Auto) 0.4 Neut % (Auto) 84.0 H Lymph % (Auto) 10.9 L [place] % (Auto) 4.6 Eos % (Auto) 0.0 Baso % (Auto) 0.1 Lymph # (Auto) 0.7 L [place] # (Auto) 0.3 Eos # (Auto) 0.0 Baso # (Auto) 0.0 Abs Immat Gran (auto) 0.03 Absolute Neuts (auto) 5.7 Absolute Nucleated RBC 0.000 Nucleated RBC % (auto) 0.0 VBG pH 7.48 H VBG pCO2 43 VBG pO2 55 VBG HCO3 32 H VBG O2 Saturation 90.0 VBG Base Excess 7.9 Sodium 143 Potassium 4.2 Chloride 101 Carbon Dioxide 30 H Anion Gap 16 BUN 30 H Creatinine 1.11 Estim Creat Clear Calc 81.1 Estimated GFR 50 POC Glucose 225 H Random Glucose 259 H Calcium 9.6 Phosphorus 2.3 L Magnesium 2.0 Total Bilirubin 0.3 AST 9 ALT 9 Alkaline Phosphatase 55 Total Protein 7.5 Albumin 4.2 Urine Color Urine Appearance Urine pH Ur Specific [place] Urine Protein Urine Glucose (UA) Urine Ketones Urine Blood Urine Nitrite Ur Leukocyte Esterase Urine RBC Urine WBC Ur Squamous Epith Cells Urine Bacteria Hyaline Casts 10/29/23 11:56 WBC RBC Hgb Hct MCV MCH MCHC RDW Plt Count MPV Immature Gran % (Auto) Neut % (Auto) Lymph % (Auto) [place] % (Auto) Eos % (Auto) Baso % (Auto) Lymph # (Auto) [place] # (Auto) Eos # (Auto) Baso # (Auto) Abs Immat Gran (auto) Absolute Neuts (auto) Absolute Nucleated RBC Nucleated RBC % (auto) VBG pH VBG pCO2 VBG pO2 VBG HCO3 VBG O2 Saturation VBG Base Excess Sodium Potassium Chloride Carbon Dioxide Anion Gap BUN Creatinine Estim Creat Clear Calc Estimated GFR POC Glucose 214 H Random Glucose Calcium Phosphorus Magnesium Total Bilirubin AST ALT Alkaline Phosphatase Total Protein Albumin Urine Color Urine Appearance Urine pH Ur Specific [place] Urine Protein Urine Glucose (UA) Urine Ketones Urine Blood Urine Nitrite Ur Leukocyte Esterase Urine RBC Urine WBC Ur Squamous Epith Cells Urine Bacteria Hyaline Casts Imaging Radiologist's impression: Impressions Chest X-Ray 10/28/23 13:38 IMPRESSION: 1. Persistent Diffuse vascular and interstitial prominence suggests interstitial pulmonary edema. 2. Interval development of Asymmetric flame shaped airspace disease in the right upper lobe. Unchanged lateral left lung base horizontal linear atelectasis. 3. No interval change in position of pacemaker wires. Assessment and Plan (1) CHF exacerbation: Status: Acute Plan 62-year-old female presenting for hypercapnic respiratory failure and congestive heart failure. She has been on Lasix drip and acetazolamide IV. Continue Lasix drip today. Repeat blood workup tomorrow including BNP level. We will hold further IV acetazolamide. It appears she takes 50 mg of acetazolamide twice a day at home which can be continued. Avoid narcotics/sedatives as she may retain CO2 due to that. She had pacemaker and has not had any echocardiography. It appears she is paced all the time. It will be important to reassess her ejection fraction. Thank you for allowing me to participate in the care of your patient. Please feel free to contact me if you have any questions. Procedures Date of Service Date of Service: 10/29/23
[2023-10-29 16:42] LABS: Glucose, Whole Blood 131 mg/dL (60-115)
[2023-10-29 22:35] LABS: Glucose, Whole Blood 199 mg/dL (60-115)
[2023-10-29] MEDS: acetaZOLAMIDE 250 MG TABLET 500 MG PO (22:40)
[2023-10-30] VITALS (10 sets, daily range): BP systolic 121–163; BP diastolic 61–91; PULSE 74–95; RESP 16–23; TEMP 36.1–36.8; O2SAT 90–96
[2023-10-30 00:06] LABS: Glucose, Whole Blood 170 mg/dL (60-115)
[2023-10-30] MEDS: Acetaminophen 325 MG TABLET 650 MG PO (03:01)
[2023-10-30 05:14] LABS: Glucose, Whole Blood 153 mg/dL (60-115)
[2023-10-30] MEDS: Heparin Sodium,Porcine 5,000 UNIT/ML VIAL 5000 UNIT SUBCUT ×3 (05:59→21:14)
[2023-10-30 06:12] LABS: MANUAL DIFF FLAG NO
[2023-10-30 06:15] LABS: Venous Blood Gas Refer to POC result
[2023-10-30 06:19] LABS: VBG Base Excess 11.1 mmol/L; VBG HCO3 35 mmol/L (22-26); VBG pCO2 44 mmHg; VBG pH 7.51 (7.32-7.43); VBG pO2 103 mmHg
[2023-10-30 06:22] LABS: Basophils Percent Auto 0.4 % (0-2); Eosinophils Absolute Auto 0.1 X10*3/uL (0.0-0.4); Eosinophils Percent Auto 0.8 % (0-4); Hematocrit 41.1 % (37.0-47.0); Hemoglobin 12.7 g/dl (12.0-16.0); Imm Gran Abs Auto 0.05 X10*3/uL (0.00-0.03); Imm Gran Pct Auto 0.5 % (0.0-0.4); Lymphocytes Absolute Auto 2.2 X10*3/uL (1.2-4.9); Lymphocytes Percent Auto 23.5 % (20-40); Mean Corpuscular HGB Conc 30.9 g/dl (31.0-35.0); Mean Corpuscular Hemoglobin 29.1 pg (27.0-33.0); Mean Corpuscular Volume 94.1 fL (80.0-98.0); Mean Platelet Volume 10.2 fL (9.4-12.3); Monocytes Absolute Auto 0.7 X10*3/uL (0.1-1.2); Monocytes Percent Auto 7.4 % (2-11); Neutrophils Absolute Auto 6.2 x10*3/uL (2.0-8.3); Neutrophils Percent Auto 67.4 % (45-73); Platelet Count 220 X10*3/uL (160-400); Red Blood Count 4.37 X10*6/uL (4.20-5.50); Red Cell Distribution Width 14.2 % (11.0-16.0); White Blood Count 9.2 X10*3/uL (4.8-10.8)
[2023-10-30 06:38] LABS: Albumin Level 4.1 g/dL (3.5-5.0); Anion Gap 14 (12-20); Blood Urea Nitrogen 30 mg/dL (9-16); Calcium 9.3 mg/dL (8.4-10.2); Carbon Dioxide 33 mmol/L (22-29); Chloride 97 mmol/L (96-108); Creatinine Clr Calc Pharmacy 108.5; Estimated Glomerular Filt Rate > 60; Glucose Random 150 mg/dL (60-115); Magnesium 1.8 mg/dL (1.6-2.6); Phosphorus 1.8 mg/dL (2.7-4.5); Sodium 141 mmol/L (135-145)
[2023-10-30 06:39] LABS: B Type Natriuretic Peptide 204 pg/mL (<100)
--- NOTE | 2023-10-30 07:00 | CA_ITS ---
Transthoracic Echocardiogram Patient (Last, First, Middle): Bonnie Das, Gender: Female Date of : 1960 Age: 62 Procedure Date: 10/30/2023 Procedure Type: Transthoracic Echocardiogram Location: [facility] [place] Height: 177.8 cm Weight: 144.7 kg BSA: 2.55 m2 Heart Rate: bpm BP: 163 / 77 mmHg Chief Sales Officer: SALIMA Referring MD: Bonnie STONE Symptoms: CHF Study Quality: Technically Difficult, contrast Conclusions: - Normal left ventricular size and systolic function. There is mildly increased left ventricular wall thickness. The visually estimated ejection fraction is between 60-65%. Mild to moderate LVH. - Normal right ventricular cavity size and systolic function. - There is mild dilatation of the ascending aorta measuring 3.50 cm. - The inferior vena cava is normal in size and collapses greater than 50% with inspiration. Findings Procedure Information Contrast agent, definity, is being given per protocol without apparent complications. Left Ventricle Normal left ventricular size and systolic function. There is mildly increased left ventricular wall thickness. The visually estimated ejection fraction is between 60-65%. There is no evidence of regional wall motion abnormalities. Diastolic function is indeterminate on the basis of available data. Right Ventricle Normal right ventricular cavity size and systolic function. Atria The left atrium was not well visualized. The right atrium is normal in size. Aortic Valve Normal aortic valve structure and function. There is no aortic valve stenosis. There is no aortic valve regurgitation. Mitral Valve Normal mitral valve structure and function. There is no mitral valve regurgitation. There is no mitral valve stenosis. Pulmonic Valve The pulmonic valve is likely normal. Tricuspid Valve The tricuspid valve was not well visualized. Tricuspid regurgitation envelope is inadequate for calculation of right ventricular systolic pressure. Normal right atrial pressure. Great Vessels There is mild dilatation of the ascending aorta measuring 3.50 cm. The visualized portions of the pulmonary artery and branches are normal. Venous The inferior vena cava is normal in size and collapses greater than 50% with inspiration. Pericardium/Pleural There is no evidence of pericardial effusion. Prior Study Comparison No significant change compared to prior study dated: 01/13/2023. Measurements 2D Linear Measurements IVSd: 1.28 0.6-0.9/0.6-1.0 cm LVIDd: 5.57 3.9-5.3/4.2-5.9 cm LVIDd Index: 2.18 2.4-3.2/2.2-3.1 cm/m2 LVIDs: 3.19 2.0-3.6 cm LVPWd: 0.96 0.7-1.1 cm LA Diam: 3.20 2.7-3.8/3.0-4.0 cm LAIDs Index: 1.25 1.5-2.3 cm/m2 LV Mass: 315.52 67-162/88-224 g LV Mass Index: 123.73 43-95/49-115 g/m2 LVOT Diam: 2.00 3.0+(-)1.3 cm Mitral Valve MV Pk E: 0.45 MV PK A: 1.12 MV Decel Time: 124.00 E/A: 0.40 E'Lateral: 5.44 E'Medial: 5.00 E/E' Med: 9.00 E/E' Lat: 8.30 PHT: 36.00 MVA PHT: 6.11 Decel [place]: 3.63 Aortic Valve AoV Pk Sunny: 1.63 AoV Mn Sunny: 1.30 AoV VTI: 0.26 AoV Pk Grad: 11.00 Aov Mn Grad: 7.00 DEL Cont.VTI: 2.39 LVOT LVOT Pk Sunny: 1.30 LVOT Mn Sunny: 0.92 LVOT VTI: 0.20 LVOT Pk Grad: 7.00 LVOT Mn Grad: 4.00 LVOT Diam: 2.00 LVOT Area: 3.14 Diastolic Function MV Pk E: 0.45 MV Pk A: 1.12 E/A: 0.40 E'Medial: 5.00 E/E' Med: 9.00 E' Laterial: 5.44 E/E' Lat: 8.30 Right Ventricle TAPSE (mm): 24.40 TVS' Sunny: 16.70 Tricuspid Valve RA Press: 3.00 Great Vessels Aorta Sinus of Valsalva: 3.56 2.0-3.5 cm Ao Asc: 3.50 2.1-3.4 cm Updated in Other Vendor System with Status of Final Tyler Smith MD electronically signed on 10/30/2023 4:53:04 PM with status of Final
[2023-10-30] MEDS: Albuterol/Iprat 2.5/0.5MG 3 ML AMPUL.NEB INHALE ×3 (07:29→19:36)
[2023-10-30] MEDS: Insulin Glargine,Hum.rec.anlog 100 UNIT/ML 10 ML VIAL 12 UNIT SUBCUT (07:43)
[2023-10-30] MEDS: acetaZOLAMIDE 250 MG TABLET 500 MG PO ×2 (07:43→21:12)
[2023-10-30] MEDS: Potassium Phosphate/NS 15 MMOL/250 ML PLAST..BAG 62.5 MMOL IV (07:50)
[2023-10-30] MEDS: Insulin Lispro 100 UNIT/ML 3 ML VIAL SUBCUT ×4 (07:57→21:15)
[2023-10-30] MEDS: Furosemide 200 MG in 0.9 % Sodium Chloride 80 ML IVCONT (09:07)
[2023-10-30 11:33] LABS: Glucose, Whole Blood 256 mg/dL (60-115)
--- NOTE | 2023-10-30 11:42 | P.PNCA_ITS ---
Subjective Subjective Date of Service: 10/30/23 Interval history: Seen examined at bedside. Looks better than yesterday. More coherent this morning. Physical Exam Vital Signs: Last Vital Signs Temp 96.9 F 10/30/23 11:14 Pulse 84 10/30/23 11:14 Resp 21 H 10/30/23 11:14 BP 146/72 H 10/30/23 11:14 Pulse Ox 96 10/30/23 11:14 O2 Del Method Nasal Cannula 10/30/23 11:14 O2 Flow Rate 4 10/30/23 11:14 FiO2 30 10/29/23 03:00 BMI result Body Mass Index 45.9 GENERAL APPEARANCE: in no acute distress, pleasant. Morbidly obese. NECK: no carotid bruit, no obvious jugular venous distention. SKIN: no suspicious lesions, warm and dry. HEART: Systolic murmur aortic area, regular rate and rhythm. LUNGS: clear to auscultation bilaterally. ABDOMEN: soft, nontender. EXTREMITIES: no edema. PERIPHERAL PULSES: equal. NEUROLOGIC: No gross deficits, AAO X 3 Objective Labs and Meds 10/30/23 06:06 10/30/23 06:06 Lab results: Laboratory Results - last 24 hr 10/29/23 10/29/23 10/29/23 11:56 16:36 22:30 WBC RBC Hgb Hct MCV MCH MCHC RDW Plt Count MPV Immature Gran % (Auto) Neut % (Auto) Lymph % (Auto) [place] % (Auto) Eos % (Auto) Baso % (Auto) Lymph # (Auto) [place] # (Auto) Eos # (Auto) Baso # (Auto) Abs Immat Gran (auto) Absolute Neuts (auto) Absolute Nucleated RBC Nucleated RBC % (auto) VBG pH VBG pCO2 VBG pO2 VBG HCO3 VBG O2 Saturation VBG Base Excess Sodium Potassium Chloride Carbon Dioxide Anion Gap BUN Creatinine Estim Creat Clear Calc Estimated GFR POC Glucose 214 H 131 H 199 H Random Glucose Calcium Phosphorus Magnesium B-Natriuretic Peptide Albumin 10/29/23 10/30/23 10/30/23 23:40 05:11 06:06 WBC 9.2 RBC 4.37 Hgb 12.7 Hct 41.1 MCV 94.1 MCH 29.1 MCHC 30.9 L RDW 14.2 Plt Count 220 MPV 10.2 Immature Gran % (Auto) 0.5 H Neut % (Auto) 67.4 Lymph % (Auto) 23.5 [place] % (Auto) 7.4 Eos % (Auto) 0.8 Baso % (Auto) 0.4 Lymph # (Auto) 2.2 [place] # (Auto) 0.7 Eos # (Auto) 0.1 Baso # (Auto) 0.0 Abs Immat Gran (auto) 0.05 H Absolute Neuts (auto) 6.2 Absolute Nucleated RBC 0.000 Nucleated RBC % (auto) 0.0 VBG pH VBG pCO2 VBG pO2 VBG HCO3 VBG O2 Saturation VBG Base Excess Sodium 141 Potassium 3.0 L D Chloride 97 Carbon Dioxide 33 H Anion Gap 14 BUN 30 H Creatinine 0.83 Estim Creat Clear Calc 108.5 Estimated GFR > 60 POC Glucose 170 H 153 H Random Glucose 150 H Calcium 9.3 Phosphorus 1.8 L Magnesium 1.8 B-Natriuretic Peptide 204 H Albumin 4.1 10/30/23 10/30/23 06:11 11:15 WBC RBC Hgb Hct MCV MCH MCHC RDW Plt Count MPV Immature Gran % (Auto) Neut % (Auto) Lymph % (Auto) [place] % (Auto) Eos % (Auto) Baso % (Auto) Lymph # (Auto) [place] # (Auto) Eos # (Auto) Baso # (Auto) Abs Immat Gran (auto) Absolute Neuts (auto) Absolute Nucleated RBC Nucleated RBC % (auto) VBG pH 7.51 H VBG pCO2 44 VBG pO2 103 VBG HCO3 35 H VBG O2 Saturation 100.0 VBG Base Excess 11.1 Sodium Potassium Chloride Carbon Dioxide Anion Gap BUN Creatinine Estim Creat Clear Calc Estimated GFR POC Glucose 256 H Random Glucose Calcium Phosphorus Magnesium B-Natriuretic Peptide Albumin Progress Note: A&P Assessment and plan (1) Acute and chronic respiratory failure with hypercapnia: Status: Acute (2) CHF exacerbation: Status: Acute Plan Pleasant 62-year-old female who presented with hypercapnic respiratory failure and congestive heart failure. She was treated with BiPAP and was discharged from ICU to the floor on Lasix drip and IV acetazolamide. Clinically she appears to be close to euvolemic at this point. She takes acetazolamide 500 mg twice a day at home along with 40 mg Lasix p.o.. I think acetazolamide can be continued and she can be changed to 40 mg p.o. b.i.d. Lasix. Lasix drip can be stopped. She has hypokalemia and will recommend adding spironolactone 25 mg daily. We will follow along with you. Thank you for allowing me to participate in the care of your patient. Please feel free to contact me if you have any questions. Time Spent With Patient Time: Total time managing care of this patient today ____ minutes. Progress Note: Quality Stroke Does the patient have a stroke diagnosis?: No Procedures Date of Service Date of Service: 10/30/23
[2023-10-30] MEDS: cefTRIAXone sodium 1 GM in 0.9 % Sodium Chloride 50 ML IV (11:53)
--- NOTE | 2023-10-30 16:10 | HO.PM.IMPN ---
Subjective Subjective Date of Service: 10/30/23 Interval History: seen and examined this morning follow up for respiratory failure downgraded from the ICU yesterday awake, alert no sob Review of Systems Review of Systems: Yes all other systems are reviewed and are negative Constitutional Constitutional: Denies chills and Reports fever(s) Physical Exam Vital Signs: Vital Signs: Last Vital Signs Temp 97.0 F 10/30/23 15:11 Pulse 95 10/30/23 15:11 Resp 21 H 10/30/23 15:11 BP 121/66 10/30/23 15:11 Pulse Ox 90 L 10/30/23 15:11 O2 Del Method Nasal Cannula 10/30/23 15:11 O2 Flow Rate 4 10/30/23 11:14 FiO2 30 10/29/23 03:00 BMI result Body Mass Index 45.9 Const: General: cooperative, comfortable, no acute distress, alert and awake Nutritional Appearance: obese Orientation/consciousness: patient oriented x3 Resp: Effort & Inspection: normal respiratory effort, able to speak in complete sentences, no respiratory distress and no use of accessory muscles Auscultation: clear to auscultation bilaterally Cardio: Rate: regular rate GI: Inspection: No distended Palpation (GI): Soft to palpation and nontender Neuro: Other: grossly nonfocal General: patient oriented x3 Extrem: General: Yes no pedal edema Objective Data Active Medications Acetaminophen (Acetaminophen 325 Mg Tablet) 650 mg PO Q6H PRN PRN Reason: Pain, Mild (Pain Scale 1-3) Last Admin: 10/30/23 03:01 Dose: 650 mg Documented By: YURI Acetazolamide (Acetazolamide 250 Mg Tablet) 500 mg PO BID [facility] Last Admin: 10/30/23 07:43 Dose: 500 mg Documented By: ADDISON Albuterol/Ipratropium (Albuterol/Iprat 2.5/0.5mg 3 Ml Ampul.Neb) 3 ml INHALE RQ6H WHILE AWAKE [facility] Last Admin: 10/30/23 14:40 Dose: 3 ml Documented By: YANETH Furosemide (Furosemide 40 Mg Tablet) 40 mg PO BID@0900,1800 [facility]; Protocol Heparin Sodium (Porcine) (Heparin Sodium,Porcine 5,000 Unit/Ml Vial) 5,000 unit SUBCUT Q8H [facility] Last Admin: 10/30/23 14:40 Dose: 5,000 unit Documented By: ADDISON Ceftriaxone Sodium 1 gm/ (Sodium Chloride) 50 mls @ 100 mls/hr IV Q24H [facility] Last Infusion: 10/30/23 12:25 Dose: Infused Documented By: ADDISON Furosemide 200 mg/ Sodium (Chloride) 100 mls @ 2.5 mls/hr IVCONT .Q24H ROSSY Stop: 10/30/23 18:00 Last Admin: 10/30/23 09:07 Dose: 5 mg/hr, 2.5 mls/hr Documented By: ADDISON Insulin Glargine (Insulin Glargine,Hum.Rec.Anlog 100 Unit/Ml 10 Ml Vial) 12 unit SUBCUT DAILY [facility] Last Admin: 10/30/23 07:43 Dose: 12 unit Documented By: ADDISON Insulin Human Lispro (Insulin Lispro 100 Unit/Ml 3 Ml Vial) 0 unit SUBCUT QIDACHS [facility]; Protocol Last Admin: 10/30/23 11:46 Dose: 6 unit Documented By: ADDISON Spironolactone (Spironolactone 25 Mg Tablet) 25 mg PO DAILY [facility]; Protocol Labs 10/30/23 06:06 10/30/23 06:06 Labs: Laboratory Results - last 24 hr 10/29/23 10/29/23 10/29/23 16:36 22:30 23:40 MCV MCH MCHC RDW Plt Count MPV Immature Gran % (Auto) Neut % (Auto) Lymph % (Auto) [place] % (Auto) Eos % (Auto) Baso % (Auto) Lymph # (Auto) [place] # (Auto) Eos # (Auto) Baso # (Auto) Abs Immat Gran (auto) Absolute Neuts (auto) Absolute Nucleated RBC Nucleated RBC % (auto) VBG pH VBG pCO2 VBG pO2 VBG HCO3 VBG O2 Saturation VBG Base Excess Anion Gap Estim Creat Clear Calc Estimated GFR POC Glucose 131 H 199 H 170 H Random Glucose Calcium Phosphorus Magnesium B-Natriuretic Peptide Albumin 10/30/23 10/30/23 10/30/23 05:11 06:06 06:11 MCV 94.1 MCH 29.1 MCHC 30.9 L RDW 14.2 Plt Count 220 MPV 10.2 Immature Gran % (Auto) 0.5 H Neut % (Auto) 67.4 Lymph % (Auto) 23.5 [place] % (Auto) 7.4 Eos % (Auto) 0.8 Baso % (Auto) 0.4 Lymph # (Auto) 2.2 [place] # (Auto) 0.7 Eos # (Auto) 0.1 Baso # (Auto) 0.0 Abs Immat Gran (auto) 0.05 H Absolute Neuts (auto) 6.2 Absolute Nucleated RBC 0.000 Nucleated RBC % (auto) 0.0 VBG pH 7.51 H VBG pCO2 44 VBG pO2 103 VBG HCO3 35 H VBG O2 Saturation 100.0 VBG Base Excess 11.1 Anion Gap 14 Estim Creat Clear Calc 108.5 Estimated GFR > 60 POC Glucose 153 H Random Glucose 150 H Calcium 9.3 Phosphorus 1.8 L Magnesium 1.8 B-Natriuretic Peptide 204 H Albumin 4.1 10/30/23 11:15 MCV MCH MCHC RDW Plt Count MPV Immature Gran % (Auto) Neut % (Auto) Lymph % (Auto) [place] % (Auto) Eos % (Auto) Baso % (Auto) Lymph # (Auto) [place] # (Auto) Eos # (Auto) Baso # (Auto) Abs Immat Gran (auto) Absolute Neuts (auto) Absolute Nucleated RBC Nucleated RBC % (auto) VBG pH VBG pCO2 VBG pO2 VBG HCO3 VBG O2 Saturation VBG Base Excess Anion Gap Estim Creat Clear Calc Estimated GFR POC Glucose 256 H Random Glucose Calcium Phosphorus Magnesium B-Natriuretic Peptide Albumin Microbiology Microbiology Results: Microbiology 10/28/23 15:38 Urine Culture - Final Urine Catheterized - Sood Catheter 10/28/23 10:32 Blood Culture - Preliminary Blood - Venous No growth after 48 hours. 10/28/23 10:28 Blood Culture - Preliminary Blood - Venous No growth after 48 hours. Assessment and Plan (1) Acute and chronic respiratory failure with hypercapnia: Status: Acute Plan 62-year-old lady with underlying morbid obesity, obesity hypoventilation syndrome with CO2 retention, COPD on home O2 at 2-3 L, diabetes mellitus, diastolic dysfunction, third-degree AV block status post pacemaker multiple admissions for acute on chronic respiratory failure admitted on 10/28/2023 with dyspnea and confusion secondary to acute on chronic hypercapnic respiratory failure with CO2 narcosis. Patient was started on BiPAP support and admitted to the intensive care unit. She was also started on additional diuresis and downgraded to the medical floor 10/29 Acute on chronic hypercapnic and hypoxic respiratory failure r/t CHF exacerbation h/o of non compliance with bipap Underlying COPD on 2-3 L, currently on 4L NC Acute metabolic encephalopathy secondary to CO2 narcosis improving acute exacerbation of underlying chronic diastolic congestive heart failure initially treated with lasix drip and IV acetazolaminde transitioned to home dose of po acetazolamide discussed with cardiology, plan to stop lasix drip this afternoon and transition to po lasix and spironolactone UTI urine culture growing > 100,000 mixed bacterial jack characteristic of urogenital contamination will stop abx hypokalemia due to lasix replace and follow Insulin-dependent diabetes mellitus 2 follow POCs, sliding scale insulin continue lantus ada diet Morbid obesity. Weight loss encouraged. Counseled regarding diet Essential hypertension. Continue home antihypertensives Mood disorder. Continue home mood stabilizers dvt ppx - heparin attending - dr. valles requires ongoing inpatient stay for diuresis, close monitoring of respiratory status Quality Stroke Does the patient have a stroke diagnosis?: No VTE Prior VTE?: No VTE Risk Level:: Medical - moderate - high VTE Device Contraindication: Treatment Not Indicated VTE Drug Contraindication: N/A - Med Ordered
[2023-10-30 17:13] LABS: Glucose, Whole Blood 369 mg/dL (60-115)
[2023-10-30] MEDS: Potassium Chloride Packet 20 MEQ PACKET PO (17:19)
[2023-10-30 19:48] LABS: Glucose, Whole Blood 310 mg/dL (60-115)
[2023-10-30 21:11] LABS: Glucose, Whole Blood 274 mg/dL (60-115)
[2023-10-30] MEDS: Atorvastatin Calcium 80 MG TABLET PO (21:12)
[2023-10-31] VITALS (9 sets, daily range): BP systolic 103–176; BP diastolic 59–82; PULSE 74–88; RESP 16–24; TEMP 35.9–37.1; O2SAT 92–97
[2023-10-31] MEDS: Acetaminophen 325 MG TABLET 650 MG PO (01:49)
[2023-10-31] MEDS: Heparin Sodium,Porcine 5,000 UNIT/ML VIAL 5000 UNIT SUBCUT ×3 (05:44→22:12)
[2023-10-31] MEDS: Spironolactone 25 MG TABLET PO ×2 (05:45→08:08)
[2023-10-31 06:16] LABS: Anion Gap 16 (12-20); Blood Urea Nitrogen 26 mg/dL (9-16); Calcium 9.2 mg/dL (8.4-10.2); Carbon Dioxide 30 mmol/L (22-29); Chloride 100 mmol/L (96-108); Creatinine Clr Calc Pharmacy 115.4; Estimated Glomerular Filt Rate > 60; Glucose Random 191 mg/dL (60-115); Potassium 3.5 mmol/L (3.3-5.1); Sodium 142 mmol/L (135-145)
[2023-10-31 07:38] LABS: Glucose, Whole Blood 179 mg/dL (60-115)
[2023-10-31] MEDS: Insulin Glargine,Hum.rec.anlog 100 UNIT/ML 10 ML VIAL 12 UNIT SUBCUT (08:08)
[2023-10-31] MEDS: acetaZOLAMIDE 250 MG TABLET 500 MG PO ×2 (08:08→22:14)
[2023-10-31] MEDS: Furosemide 40 MG TABLET PO ×2 (08:08→18:19)
[2023-10-31] MEDS: Insulin Lispro 100 UNIT/ML 3 ML VIAL SUBCUT ×4 (08:09→22:14)
[2023-10-31 08:32] LABS: Venous Blood Gas Refer to POC result
[2023-10-31 08:34] LABS: VBG Base Excess 8.4 mmol/L; VBG HCO3 35 mmol/L (22-26); VBG pCO2 54 mmHg; VBG pH 7.41 (7.32-7.43); VBG pO2 81 mmHg
--- NOTE | 2023-10-31 10:51 | PM.PNCARD ---
Subjective Subjective Date of Service: 10/31/23 Interval history: Seen examined at bedside. Somewhat confused. Physical Exam Vital Signs: Last Vital Signs Temp 98.6 F 10/31/23 07:02 Pulse 74 10/31/23 07:02 Resp 22 H 10/31/23 07:34 BP 145/70 H 10/31/23 07:02 Pulse Ox 92 10/31/23 07:02 O2 Del Method Nasal Cannula 10/31/23 07:02 O2 Flow Rate 4 10/31/23 07:02 FiO2 30 10/30/23 23:13 BMI result Body Mass Index 45.9 GENERAL APPEARANCE: in no acute distress, pleasant. Morbidly obese. NECK: no carotid bruit, no obvious jugular venous distention. SKIN: no suspicious lesions, warm and dry. HEART: Systolic murmur aortic area, regular rate and rhythm. LUNGS: clear to auscultation bilaterally. ABDOMEN: soft, nontender. EXTREMITIES: no edema. PERIPHERAL PULSES: equal. NEUROLOGIC: No gross deficits, AAO X 2. No asterixis. Objective Labs and Meds 10/30/23 06:06 10/31/23 05:40 Lab results: Laboratory Results - last 24 hr 10/30/23 10/30/23 10/30/23 11:15 17:08 19:14 Hold Purple Top VBG pH VBG pCO2 VBG pO2 VBG HCO3 VBG O2 Saturation VBG Base Excess Sodium Potassium Chloride Carbon Dioxide Anion Gap BUN Creatinine Estim Creat Clear Calc Estimated GFR POC Glucose 256 H 369 H* 310 H Random Glucose Calcium 10/30/23 10/31/23 10/31/23 21:07 05:40 07:34 Hold Purple Top SEE NOTE VBG pH VBG pCO2 VBG pO2 VBG HCO3 VBG O2 Saturation VBG Base Excess Sodium 142 Potassium 3.5 Chloride 100 Carbon Dioxide 30 H Anion Gap 16 BUN 26 H Creatinine 0.78 Estim Creat Clear Calc 115.4 Estimated GFR > 60 POC Glucose 274 H 179 H Random Glucose 191 H Calcium 9.2 10/31/23 08:28 Hold Purple Top VBG pH 7.41 VBG pCO2 54 VBG pO2 81 VBG HCO3 35 H VBG O2 Saturation 97.0 VBG Base Excess 8.4 Sodium Potassium Chloride Carbon Dioxide Anion Gap BUN Creatinine Estim Creat Clear Calc Estimated GFR POC Glucose Random Glucose Calcium Progress Note: A&P Assessment and plan (1) Acute and chronic respiratory failure with hypercapnia: Status: Acute (2) CHF exacerbation: Status: Acute Plan Pleasant 62-year-old female presenting with acute hypercapnic respiratory failure and congestive heart failure. She has been diuresed and clinically improving. On oral diuretics at this point. Off and on confusion is related to hypercapnia due to obesity hypoventilation. She should comply with BiPAP every time she sleeps (day or night). Thank you for allowing me to participate in the care of your patient. Please feel free to contact me if you have any questions. Time Spent With Patient Time: Total time managing care of this patient today ____ minutes. Progress Note: Quality Stroke Does the patient have a stroke diagnosis?: No Procedures Date of Service Date of Service: 10/31/23
--- NOTE | 2023-10-31 11:11 | MHC.CM.PN ---
EMR REVIEWED AND PER MD ROUNDS, PT HAS NOT BEEN MEDICALLY CLEARED FOR DC (LETHARGY, INCREASED 02 NEEDS) PVR UPDATED VIA [facility]. CM WILL CONTINUE TO FOLLOW FOR ANY CHANGE IN DC PLAN/NEEDS.
[2023-10-31] MEDS: buPROPion HCl XL 300 MG TAB.ER.24H PO (12:08)
[2023-10-31] MEDS: ARIPiprazole 2 MG TABLET PO (12:08)
[2023-10-31] MEDS: Sertraline HCL 100 MG TABLET 200 MG PO (12:08)
[2023-10-31] MEDS: buPROPion HCl XL 150 MG TAB.ER.24H PO (12:09)
[2023-10-31 12:10] LABS: Glucose, Whole Blood 308 mg/dL (60-115)
--- NOTE | 2023-10-31 12:13 | P.PNIM_ITS ---
Subjective Subjective Date of Service: 10/31/23 Interval History: seen and examined this morning follow up for respiratory failure a little more sleepy this am, but still oriented x 3 did not use bipap all night according to patient no sob, cough, chest pain, abdominal pain Review of Systems Review of Systems: Yes all other systems are reviewed and are negative Constitutional Constitutional: Denies chills and Denies fever(s) Cardiovascular Cardiovascular: Denies chest pain, Denies palpitations and Denies dyspnea Respiratory Respiratory: Denies cough and Denies dyspnea Gastrointestinal Gastrointestinal: Denies abdominal pain, Denies nausea and Denies vomiting Endocrine Endocrine: Denies palpitations Physical Exam 2 Vital Signs: Vital Signs: Last Vital Signs Temp 97 F 10/31/23 11:49 Pulse 88 10/31/23 11:49 Resp 16 10/31/23 11:49 BP 176/80 H 10/31/23 11:49 Pulse Ox 97 10/31/23 11:49 O2 Del Method Nasal Cannula 10/31/23 11:49 O2 Flow Rate 4 10/31/23 07:02 FiO2 30 10/30/23 23:13 BMI result Body Mass Index 45.9 Const: General: cooperative, comfortable, no acute distress, alert and awake Nutritional Appearance: obese Orientation/consciousness: patient oriented x3 Resp: Effort & Inspection: normal respiratory effort, able to speak in complete sentences, no respiratory distress and no use of accessory muscles A uscultation: clear to auscultation bilaterally Cardio: Rate: regular rate GI: Inspection: No distended Palpation (GI): Soft to palpation and nontender Neuro: Other: grossly nonfocal General: patient oriented x3, moves all extremities and CN's II-XI intact bilaterally Extrem: General: Yes no pedal edema Objective Data Active Medications Acetaminophen (Acetaminophen 325 Mg Tablet) 650 mg PO Q6H PRN PRN Reason: Pain, Mild (Pain Scale 1-3) Last Admin: 10/31/23 01:49 Dose: 650 mg Documented By: SHARMAINE Acetazolamide (Acetazolamide 250 Mg Tablet) 500 mg PO BID [facility] Last Admin: 10/31/23 08:08 Dose: 500 mg Documented By: CHI Albuterol/Ipratropium (Albuterol/Iprat 2.5/0.5mg 3 Ml Ampul.Neb) 3 ml INHALE RQ6H WHILE AWAKE [facility] Last Admin: 10/31/23 07:33 Dose: Not Given Documented By: MELISSA Non-Admin Reason: Patient Refused Aripiprazole (Aripiprazole 2 Mg Tablet) 2 mg PO DAILY [facility] Last Admin: 10/31/23 12:08 Dose: 2 mg Documented By: CHI Atorvastatin Calcium (Atorvastatin Calcium 80 Mg Tablet) 80 mg PO BEDTIME [facility] Last Admin: 10/30/23 21:12 Dose: 80 mg Documented By: RICKI Bupropion HCl (Bupropion Hcl Xl 150 Mg Tab.Er.24h) 150 mg PO DAILY [facility] Last Admin: 10/31/23 12:09 Dose: 150 mg Documented By: CHI Bupropion HCl (Bupropion Hcl Xl 300 Mg Tab.Er.24h) 300 mg PO DAILY [facility] Last Admin: 10/31/23 12:08 Dose: 300 mg Documented By: CHI Furosemide (Furosemide 40 Mg Tablet) 40 mg PO BID@0900,1800 [facility]; Protocol Last Admin: 10/31/23 08:08 Dose: 40 mg Documented By: CHI Heparin Sodium (Porcine) (Heparin Sodium,Porcine 5,000 Unit/Ml Vial) 5,000 unit SUBCUT Q8H [facility] Last Admin: 10/31/23 05:44 Dose: 5,000 unit Documented By: SHARMAINE Insulin Glargine (Insulin Glargine,Hum.Rec.Anlog 100 Unit/Ml 10 Ml Vial) 12 unit SUBCUT DAILY [facility] Last Admin: 10/31/23 08:08 Dose: 12 unit Documented By: CHI Insulin Human Lispro (Insulin Lispro 100 Unit/Ml 3 Ml Vial) 0 unit SUBCUT QIDACHS [facility]; Protocol Last Admin: 10/31/23 12:09 Dose: 8 unit Documented By: CHI Non-Formulary Medication (Fluticasone Propion-Salmeterol [Airduo Respiclick]) 1 inhalation INHALE DAILY [facility] Sertraline HCl (Sertraline Hcl 100 Mg Tablet) 200 mg PO DAILY [facility] Last Admin: 10/31/23 12:08 Dose: 200 mg Documented By: CHI Spironolactone (Spironolactone 25 Mg Tablet) 25 mg PO DAILY [facility]; Protocol Last Admin: 10/31/23 08:08 Dose: 25 mg Documented By: CHI Labs 10/30/23 06:06 10/31/23 05:40 Labs: Laboratory Results - last 24 hr 10/30/23 10/30/23 10/30/23 17:08 19:14 21:07 Hold Purple Top VBG pH VBG pCO2 VBG pO2 VBG HCO3 VBG O2 Saturation VBG Base Excess Anion Gap Estim Creat Clear Calc Estimated GFR POC Glucose 369 H* 310 H 274 H Random Glucose Calcium 10/31/23 10/31/23 10/31/23 05:40 07:34 08:28 Hold Purple Top SEE NOTE VBG pH 7.41 VBG pCO2 54 VBG pO2 81 VBG HCO3 35 H VBG O2 Saturation 97.0 VBG Base Excess 8.4 Anion Gap 16 Estim Creat Clear Calc 115.4 Estimated GFR > 60 POC Glucose 179 H Random Glucose 191 H Calcium 9.2 10/31/23 11:53 Hold Purple Top VBG pH VBG pCO2 VBG pO2 VBG HCO3 VBG O2 Saturation VBG Base Excess Anion Gap Estim Creat Clear Calc Estimated GFR POC Glucose 308 H Random Glucose Calcium Microbiology Microbiology Results: Microbiology 10/28/23 15:38 Urine Culture - Final Urine Catheterized - Sood Catheter 10/28/23 10:32 Blood Culture - Preliminary Blood - Venous No growth after 48 hours. 10/28/23 10:28 Blood Culture - Preliminary Blood - Venous No growth after 48 hours. Assessment and Plan (1) Acute and chronic respiratory failure with hypercapnia: Status: Acute (2) Morbid obesity: Status: Acute (3) Obesity hypoventilation syndrome: Status: Acute Plan 62-year-old lady with underlying morbid obesity, obesity hypoventilation syndrome with CO2 retention, COPD on home O2 at 2-3 L, diabetes mellitus, diastolic dysfunction, third-degree AV block status post pacemaker multiple admissions for acute on chronic respiratory failure admitted on 10/28/2023 with dyspnea and confusion secondary to acute on chronic hypercapnic respiratory failure with CO2 narcosis. Patient was started on BiPAP support and lasix drip and admitted to the intensive care unit. She was downgraded to the medical floor 10/29 Acute on chronic hypercapnic and hypoxic respiratory failure r/t CHF exacerbation, obesity hypoventilation h/o of non compliance with bipap Underlying COPD on 2-3 L Acute metabolic encephalopathy secondary to CO2 narcosis a little sleepy this am, but more awake now vbg CO2 trending up slightly continue bipap at night and prn with naps as well follow am vbg acute on chronic HFpEF initially treated with lasix drip and IV acetazolaminde. transitioned to home dose of po acetazolamide transitioned to po lasix and spironolactone cardiology following UTI urine culture growing > 100,000 mixed bacterial jack characteristic of urogenital contamination no fever or wbc count will stop abx hypokalemia due to lasix resolved with replacement Mood disorder. will resume home medications monitor closely for sedation Insulin-dependent diabetes mellitus 2 follow POCs, sliding scale insulin continue lantus, titrate prn jardiance, metformin on hold ada diet Essential hypertension. resume norvasc, if bp still elevated can resume losartan aldactone added for chf follow bp closely oxygen dependent COPD no wheezing on exam, no acute exacerbation continue home inhalers HLD resume statin Morbid obesity. Weight loss encouraged. Counseled regarding diet dvt ppx - heparin attending - dr. valles requires ongoing inpatient stay for diuresis, close monitoring of respiratory status Quality Stroke Does the patient have a stroke diagnosis?: No VTE Prior VTE?: No VTE Risk Level:: Medical - moderate - high VTE Device Contraindication: Treatment Not Indicated VTE Drug Contraindication: N/A - Med Ordered
[2023-10-31 15:34] LABS: Glucose, Whole Blood 342 mg/dL (60-115)
[2023-10-31 19:32] LABS: Glucose, Whole Blood 387 mg/dL (60-115)
[2023-10-31] MEDS: Albuterol/Iprat 2.5/0.5MG 3 ML AMPUL.NEB INHALE (19:45)
[2023-10-31 21:27] LABS: Glucose, Whole Blood 318 mg/dL (60-115)
[2023-10-31] MEDS: Atorvastatin Calcium 80 MG TABLET PO (22:14)
[2023-10-31] MEDS: Sennosides 8.6 MG TABLET 17.2 MG PO (22:15)
[2023-11-01 01:06] VITALS: PULSE 74; RESP 18; O2SAT 95
[2023-11-01 03:04] VITALS: BP 124/66; PULSE 67; RESP 19; TEMP 35.8; O2SAT 94
[2023-11-01 05:19] VITALS: PULSE 81; RESP 19; O2SAT 96
[2023-11-01 06:12] VITALS: BMI 45.1
[2023-11-01] MEDS: Heparin Sodium,Porcine 5,000 UNIT/ML VIAL 5000 UNIT SUBCUT (06:47)
[2023-11-01 07:10] VITALS: BP 132/58; PULSE 78; RESP 18; TEMP 37.1; O2SAT 97
[2023-11-01] MEDS: Albuterol/Iprat 2.5/0.5MG 3 ML AMPUL.NEB INHALE (07:30)
[2023-11-01 07:37] VITALS: PULSE 74; RESP 18; O2SAT 97
[2023-11-01 07:38] LABS: Glucose, Whole Blood 204 mg/dL (60-115)
[2023-11-01] MEDS: Furosemide 40 MG TABLET PO (07:54)
[2023-11-01] MEDS: acetaZOLAMIDE 250 MG TABLET 500 MG PO (07:54)
[2023-11-01] MEDS: buPROPion HCl XL 150 MG TAB.ER.24H PO (07:54)
[2023-11-01] MEDS: Sertraline HCL 100 MG TABLET 200 MG PO (07:54)
[2023-11-01] MEDS: buPROPion HCl XL 300 MG TAB.ER.24H PO (07:54)
[2023-11-01] MEDS: Spironolactone 25 MG TABLET PO (07:54)
[2023-11-01] MEDS: amLODIPine Besylate 5 MG TABLET PO (07:54)
[2023-11-01] MEDS: ARIPiprazole 2 MG TABLET PO (07:55)
[2023-11-01] MEDS: Insulin Glargine,Hum.rec.anlog 100 UNIT/ML 10 ML VIAL 12 UNIT SUBCUT (07:55)
[2023-11-01] MEDS: Insulin Lispro 100 UNIT/ML 3 ML VIAL SUBCUT ×2 (07:55→12:14)
[2023-11-01 08:18] LABS: Venous Blood Gas Refer to POC result
[2023-11-01 08:18] LABS: VBG HCO3 32 mmol/L (22-26); VBG pCO2 52 mmHg; VBG pH 7.39 (7.32-7.43); VBG pO2 70 mmHg
--- NOTE | 2023-11-01 10:49 | PC.NURSE ---
per provider order, frasuto cath removed at 1045. pt is due to void at [id number]
--- NOTE | 2023-11-01 11:03 | P.DS_ITS ---
DS: Providers Provider Date of Service: 11/01/23 Date of admission: 10/28/23 13:35 Primary care physician: Tita Bal MD Consults: 10/29/23 13:10 Consult to Cardiology Routine Consulting Provider: [facility] [place] Cardiovascular Services Reason for consultation: CHF 10/31/23 12:33 Consult to Wound Care Routine Reason for consultation: Excoriation to buttocks with open areas DS: Diagnosis Discharge Diagnosis (1) Acute and chronic respiratory failure with hypercapnia: Status: Acute (2) Morbid obesity: Status: Acute (3) Obesity hypoventilation syndrome: Status: Acute DS: Summary Hospital Course Hospital Course: History and physical as per admitting provider. 62-year-old lady with underlying morbid obesity, obesity hypoventilation syndrome with CO2 retention, COPD on home O2 at 2-3 L, diabetes mellitus, diastolic dysfunction, third-degree AV block status post pacemaker multiple admissions for acute on chronic respiratory failure admitted on 10/28/2023 with dyspnea and confusion secondary to acute on chronic hypercapnic respiratory failure with CO2 narcosis. Patient was started on BiPAP support and admitted to the intensive care unit. She was also started on additional diuresis. 62-year-old woman treated for acute on chronic hypercapnic and hypoxic respiratory failure with acute metabolic encephalopathy secondary to CO2 narcosis and heart failure with preserved ejection fraction. Patient was placed on BiPAP initially in the ICU. She has a history of hypoxic respiratory failure has been hospitalized multiple times. She continued on BiPAP at nighttime, she was transferred to telemetry floor with BiPAP at night and as needed. In terms of heart failure with preserved ejection fraction. She was initially treated with IV Lasix drip and IV SCDs Sulamyd. She was transitioned to oral acetazolamide and oral Lasix and started on spironolactone. She was seen and evaluated by Cardiology. She was treated for mild hypokalemia secondary to Lasix and resolved with replacement. Plan is to transfer back to long-term care facility. Diabetes mellitus type 2. Continue home medications Hypertension. Continue Norvasc Mental health. Continue home medications Hyperlipidemia continue statin Morbid obesity. BMI 45.1. Weight loss encouraged Time Attestation Discharge coordination time: Greater than 30 minutes Quality: Safe Use of Opioids Does Pt have an Active Cancer Diagnosis on the Problem List?: No Quality: Stroke Does the patient have a stroke diagnosis?: No Physical Exam Vital Signs: Vital Signs: Last Vital Signs Temp 98.7 F 11/01/23 07:10 Pulse 74 11/01/23 07:37 Resp 18 11/01/23 07:37 BP 132/58 L 11/01/23 07:10 Pulse Ox 97 11/01/23 07:10 O2 Del Method CPAP 11/01/23 07:10 O2 Flow Rate 4 10/31/23 19:36 FiO2 30 11/01/23 03:04 BMI result Body Mass Index 45.1 Appearing in no acute distress head is normocephalic atraumatic eyes pupils are PERRLA sclera is anicteric mouth throat mucous membranes are intact and moist neck is supple no lymphadenopathy, no JVD noted lung sounds are clear to auscultation heart regular rate rhythm, clear S1, S2 positive bowel sounds, abdomen is soft, nontender, obese neuro patient is alert x3, no focal deficits DS: Data Data Completed and Pending Completed studies during hospitalization [Text1]: Procedures Assistance with Respiratory Ventilation, Less than 24 Consecutive Hours, Continuous Positive Airway Pressure (10/02/23) Insertion of Endotracheal Airway into Trachea, Via Natural or Artificial Opening (11/18/21) Insertion of Infusion Device into Superior Vena Cava, Percutaneous Approach (11/18/21) Introduction of Vasopressor into Peripheral Vein, Percutaneous Approach (11/18/21) Respiratory Ventilation, 24-96 Consecutive Hours (11/18/21) Ultrasonography of Superior Vena Cava, Guidance (11/18/21) Labs on day of discharge: Laboratory Results - last 24 hr 10/31/23 10/31/23 10/31/23 11:53 15:28 19:24 VBG pH VBG pCO2 VBG pO2 VBG HCO3 VBG O2 Saturation VBG Base Excess POC Glucose 308 H 342 H 387 H* 10/31/23 11/01/23 11/01/23 21:18 07:12 08:13 VBG pH 7.39 VBG pCO2 52 VBG pO2 70 VBG HCO3 32 H VBG O2 Saturation 93.0 VBG Base Excess 6.0 POC Glucose 318 H 204 H Preliminary micro results at discharge 10/28/23 10:32 Blood Culture - Preliminary Blood - Venous No growth after 48 hours. 10/28/23 10:28 Blood Culture - Preliminary Blood - Venous No growth after 48 hours. Discharge Plan Discharge Anticipated Discharge Date/Time: 11/01/23 10:58 Patient Disposition: Xfer LTC Discharge Diagnosis: Acute on chronic hypercapnic and hypoxic respiratory failure Acute metabolic encephalopathy secondary to CO2 narcosis Acute on chronic congestive heart failure with preserved ejection fraction Hypokalemia Referrals: Tita Bal MD [Primary Care Provider] - 1 Week Discharge Medications: New spironolactone 25 mg Tablet 25 mg PO DAILY Qty: 30 0RF Protocol: Hold for SBP< HOLD for SBP < : 90 Continued furosemide 40 mg Tablet 40 mg PO DAILY Qty: 30 0RF Protocol: Hold for SBP< HOLD for SBP < : 90 ipratropium-albuterol 0.5 mg-3 mg(2.5 mg base)/3 mL Solution For Nebulization 3 ml INHALATION TID potassium chloride 10 mEq Tablet Extended Release 10 meq PO DAILY Hold Instructions: Recheck K level in 1 week to decide if needed or not. Culturelle 10 billion cell Capsule 1 cap PO BID bupropion HCl 150 mg tablet extended release 24 hr 1 tab PO DAILY Rx Instructions: take with 300mg; tdd 450mg Fleet Enema 19-7 gram/118 mL Enema 118 ml KS DAILY PRN (Reason: Constipation) Rx Instructions: (STEP 3) IF NO BOWEL MOVEMENT 8 HOURS AFTER BISACODYL fluticasone propion-salmeterol [AirDuo RespiClick] 113-14 mcg/actuation aerosol powdr breath activated 1 inh inhalation DAILY Rx Instructions: rinse mouth after use AND SPIT OUT atorvastatin 80 mg Tablet 80 mg PO BEDTIME sennosides [senna] 8.6 mg Tablet 17.2 mg PO BEDTIME acetaminophen 325 mg Tablet 650 mg PO Q4H PRN (Reason: Fever Or Pain) polyethylene glycol 3350 [Miralax] 17 gram Powder In Packet 17 g PO DAILY PRN (Reason: Constipation) tizanidine 4 mg Tablet 4 mg PO BEDTIME PRN (Reason: Muscle Spasm) sertraline 100 mg Tablet 200 mg PO DAILY melatonin 3 mg Tablet 3 mg PO BEDTIME ferrous sulfate 325 mg (65 mg iron) Tablet 325 mg PO DAILY insulin lispro 100 unit/mL Insulin Pen See Protocol SUBCUT QIDACHS Protocol: Insulin Correction Scale Less than or equal to 110 ---- Give (units): 0 111 to 150 Give (units): 0 151 to 200 Give (units): 0 201 to 250 Give (units): 4 251 to 300 Give (units): 6 301 to 350 Give (units): 8 Greater than 350 Give (units): 10 Call MD if Blood Glucose > : 350 Rx Instructions: SLIDING SCALE IF BLOOD GLUCOSE GREATER THAN 400, GIVE 12 UNITS AND NOTIFY MD amlodipine 5 mg Tablet 5 mg PO DAILY 30 Days Qty: 30 0RF Protocol: Hold for SBP< HOLD for SBP < : 90 aspirin 81 mg Tablet,Chewable 81 mg PO DAILY acetazolamide 250 mg Tablet 500 mg PO BID Qty: 60 0RF Jardiance 10 mg Tablet 10 mg PO DAILY 30 Days Qty: 30 0RF losartan 25 mg tablet 25 mg PO DAILY cholecalciferol (vitamin D3) 25 mcg (1,000 unit) Tablet 25 mcg PO DAILY olopatadine 0.2 % Drops 1 drp OPHTHALMIC (EYE) QSHIFT megestrol 400 mg/10 mL (40 mg/mL) suspension 400 mg PO TID insulin glargine [Lantus U-100 Insulin] 100 unit/mL solution 18 unit subcut DAILY metformin 500 mg tablet 500 mg PO BID Ozempic 0.25 mg or 0.5 mg (2 mg/3 mL) pen injector 0.5 mg subcut WE magnesium hydroxide [Milk of Magnesia] 400 mg/5 mL Suspension 30 ml PO DAILY PRN (Reason: Constipation) aripiprazole 2 mg tablet 2 mg PO DAILY bisacodyl 10 mg suppository 10 mg KS DAILY PRN (Reason: Constipation) Rx Instructions: GIVE IF NO RESULT FROM MILK OF MAGNESIA cyanocobalamin (vitamin B-12) 1,000 mcg capsule 1,000 mcg PO DAILY bupropion HCl 300 mg tablet extended release 24 hr 300 mg PO DAILY Rx Instructions: take with 150mg dose; tdd 450mg Discharge Orders: Discharge Order (Routine); Ordered 11/01/23 Ordered By: Belinda Brooks Diet: Advance to usual diet Activity on Discharge: As tolerated Stand Alone Forms: Patient Portal Discharge page Care Plan Goals: Continue management of long-term care facility Health Concerns: Acute on chronic hypercapnic and hypoxic respiratory failure Acute metabolic encephalopathy secondary to CO2 narcosis Acute on chronic congestive heart failure with preserved ejection fraction Hypokalemia Plan of Treatment: Follow-up with primary care provider as needed Take all medications as prescribed Assessment: See discharge summary
--- NOTE | 2023-11-01 11:39 | MHC.CM.PN ---
IMM 11/01/23, pt has been medically cleared for DC, she will go back to [facility] via ambulance.
[2023-11-01 12:00] VITALS: BP 133/71; PULSE 95; RESP 16; TEMP 37; O2SAT 94
[2023-11-01 12:15] LABS: Glucose, Whole Blood 352 mg/dL (60-115)
== END 2023-11-01 14:00 | DRG 291 ==
LOC: HO.ED 13:34 → HO.EDOVER 13:39 → HO.ICU 14:07 → HO.IMC 10-29 11:18
PROVIDERS: Internal Medicine Cardiovascular Disease; Physician Assistant; Physician Assistant Medical; Registered Nurse Community Health; Admitting Provider Internal Medicine Pulmonary Disease; Emergency Provider Emergency Medicine Emergency Medical Services; PCP Internal Medicine; Visit Provider Nurse Practitioner Acute Care
DX: I11.0 Hypertensive heart disease with heart failure (principal); G93.41 Metabolic encephalopathy; I50.33 Acute on chronic diastolic (congestive) heart failure; J96.21 Acute and chronic respiratory failure with hypoxia; J96.22 Acute and chronic respiratory failure with hypercapnia; E66.2 Morbid (severe) obesity with alveolar hypoventilation; Z68.42 Body mass index [BMI] 45.0-49.9, adult; I44.2 Atrioventricular block, complete; J44.9 Chronic obstructive pulmonary disease, unspecified; F39 Unspecified mood [affective] disorder; L89.156 Pressure-induced deep tissue damage of sacral region; E87.6 Hypokalemia; Z91.040 Latex allergy status; Z87.891 Personal history of nicotine dependence; Z95.0 Presence of cardiac pacemaker; Z91.199 Patient's noncompliance with other medical treatment and regimen due to unspecified reason; Z99.81 Dependence on supplemental oxygen; Z79.4 Long term (current) use of insulin; Z79.82 Long term (current) use of aspirin; Z79.84 Long term (current) use of oral hypoglycemic drugs; Z79.899 Other long term (current) drug therapy
CPT/HCPCS: 36415; 71045; 80048; 80053; 81001; 82040; 82803; 82947; 83605; 83735; 83880; 84100; 84484; 85025; 87040; 87086; 93005; 93306; 94640; 94660; 94799; 99285; C1758; J0696; J1120; J1644; J1940; J2250; J2930; P9047; Q9957

== ENCOUNTER → 2023-10-28 09:19 | Outpatient (BNV) | payer OTHER, MEDICAID, SELFPAY | PROVIDERS: Admitting Provider Internal Medicine Pulmonary Disease; Emergency Provider Emergency Medicine Emergency Medical Services; PCP Internal Medicine; Visit Provider Internal Medicine Cardiovascular Disease | DX: R94.31 Abnormal electrocardiogram [ECG] [EKG] (principal) | CPT/HCPCS: 93010 ==

== ENCOUNTER 2023-10-28 13:35 | Outpatient (BNV) | payer OTHER, MEDICAID, SELFPAY | END 2023-10-30 07:00 | PROVIDERS: Admitting Provider Internal Medicine Pulmonary Disease; Emergency Provider Emergency Medicine Emergency Medical Services; PCP Internal Medicine; Visit Provider Internal Medicine Cardiovascular Disease | DX: I50.9 Heart failure, unspecified (principal) | CPT/HCPCS: 93306 ==

== ENCOUNTER → 2023-10-28 13:35 | Outpatient (BNV) | payer SELFPAY | PROVIDERS: Admitting Provider Internal Medicine Pulmonary Disease; Emergency Provider Emergency Medicine Emergency Medical Services; PCP Internal Medicine; Visit Provider Internal Medicine Pulmonary Disease | DX: J96.22 Acute and chronic respiratory failure with hypercapnia (principal); I50.9 Heart failure, unspecified; E66.2 Morbid (severe) obesity with alveolar hypoventilation | CPT/HCPCS: 99232; 99291 ==

== ENCOUNTER → 2023-10-28 13:35 | Outpatient (BNV) | payer OTHER, MEDICAID, SELFPAY | PROVIDERS: Admitting Provider Internal Medicine Pulmonary Disease; Emergency Provider Emergency Medicine Emergency Medical Services; PCP Internal Medicine; Visit Provider Nurse Practitioner Acute Care | DX: J96.22 Acute and chronic respiratory failure with hypercapnia (principal); E66.2 Morbid (severe) obesity with alveolar hypoventilation; Z68.42 Body mass index [BMI] 45.0-49.9, adult | CPT/HCPCS: 99233; 99238; 99499 ==

== ENCOUNTER → 2023-10-28 13:35 | Outpatient (BNV) | payer SELFPAY | PROVIDERS: Admitting Provider Internal Medicine Pulmonary Disease; Emergency Provider Emergency Medicine Emergency Medical Services; PCP Internal Medicine; Visit Provider Internal Medicine Cardiovascular Disease | DX: J96.22 Acute and chronic respiratory failure with hypercapnia (principal); I50.9 Heart failure, unspecified | CPT/HCPCS: 99223; 99232; 99233 ==

== ENCOUNTER 2024-02-15 17:30 | Inpatient (IN) | payer MEDICARE, SELFPAY ==
[2024-02-15] VITALS (11 sets, daily range): BP systolic 83–148; BP diastolic 21–90; PULSE 76–91; RESP 18–33; TEMP 36.7–37.7; O2SAT 88–97; BMI 49.6
--- NOTE | ~2024-02-15 | XR_ITS ---
EXAMINATION: XR CHEST CLINICAL INFORMATION: SOB COMPARISON: Chest 10/28/2023 TECHNIQUE: Frontal view of the chest was obtained. FINDINGS: The lungs are hypoexpanded with bilateral prominent perihilar markings suspicious for mild congestion. There is mild cardiomegaly. There are pacer electrodes in right atrium and right ventricle. No gross bony abnormality. XR/XR chest 1V IMPRESSION: Mild cardiomegaly with mild pulmonary vascular congestion suspected. Stable pacer electrodes from 10/28/2023
--- NOTE | 2024-02-15 17:39 | ECG_ITS ---
Test Reason : RESP DISTRESS Blood Pressure : / mmHG Vent. Rate : 093 BPM Atrial Rate : 093 BPM P-R Int : 184 ms QRS Dur : 178 ms QT Int : 430 ms P-R-T Axes : 054 -73 048 degrees QTc Int : 534 ms Atrial-sensed ventricular-paced rhythm Abnormal ECG When compared with ECG of 28-OCT-2023 09:24, Vent. rate has increased BY 13 BPM Referred By: Thais Nguyen Electronically Signed By:MAREN VIDALES MD
[2024-02-15] MEDS: methylPREDNISolone Sod Succ 125 MG/2 ML VIAL IVPUSH (17:57)
[2024-02-15] MEDS: Albuterol Sulfate 5 MG, Albuterol/Iprat 2.5/0.5MG 3 ML 3 ML INHALE (18:04)
[2024-02-15 18:06] LABS: MANUAL DIFF FLAG NO
[2024-02-15 18:09] LABS: VBG HCO3 37 mmol/L (22-26); VBG pCO2 72 mmHg; VBG pH 7.32 (7.32-7.43); VBG pO2 92 mmHg
[2024-02-15 18:12] LABS: Venous Blood Gas Refer to POC result
[2024-02-15 18:21] LABS: INTERNATIONAL NORM RATIO 0.9 (0.9-1.1); Prothrombin Time 11.3 SEC (11.1-13.3)
[2024-02-15 18:26] LABS: COVID-19 Test Negative (Negative); IDNOW Serial# 08D9AD1C; IDNOW Serial# 152EDE1D
[2024-02-15 18:27] LABS: Influenza A Negative (Negative); Influenza B2 Negative (Negative)
[2024-02-15 18:30] LABS: Basophils Percent Auto 0.4 % (0-2); Eosinophils Absolute Auto 0.1 X10*3/uL (0.0-0.4); Eosinophils Percent Auto 1.1 % (0-4); Hematocrit 41.6 % (37.0-47.0); Hemoglobin 12.2 g/dl (12.0-16.0); Imm Gran Abs Auto 0.03 X10*3/uL (0.00-0.03); Imm Gran Pct Auto 0.4 % (0.0-0.4); Lymphocytes Absolute Auto 1.4 X10*3/uL (1.2-4.9); Lymphocytes Percent Auto 17.7 % (20-40); Mean Corpuscular HGB Conc 29.3 g/dl (31.0-35.0); Mean Corpuscular Hemoglobin 29.5 pg (27.0-33.0); Mean Corpuscular Volume 100.5 fL (80.0-98.0); Mean Platelet Volume 10.4 fL (9.4-12.3); Monocytes Absolute Auto 0.7 X10*3/uL (0.1-1.2); NRBC Pct Auto 0.2 /100WBC (0.0-0.2); Neutrophils Absolute Auto 5.9 x10*3/uL (2.0-8.3); Neutrophils Percent Auto 72.4 % (45-73); Platelet Count 243 X10*3/uL (160-400); Red Blood Count 4.14 X10*6/uL (4.20-5.50); Red Cell Distribution Width 14.6 % (11.0-16.0); White Blood Count 8.1 X10*3/uL (4.8-10.8)
[2024-02-15 18:34] LABS: Lactic Acid 0.6 mmol/L (0.5-2.0)
[2024-02-15 18:39] LABS: Alanine Aminotransferase 8 U/L (0-31); Albumin Level 3.5 g/dL (3.5-5.0); Alkaline Phosphatase 84 U/L (39-117); Anion Gap 12 (12-20); Aspartate Amino Transferase 12 U/L (5-31); Bilirubin Direct < 0.2 mg/dL (0.0-0.5); Bilirubin Total 0.2 mg/dL (0.0-1.0); Blood Urea Nitrogen 19 mg/dL (9-16); Calcium 9.1 mg/dL (8.4-10.2); Carbon Dioxide 34 mmol/L (22-29); Chloride 102 mmol/L (96-108); Creatinine Clr Calc Pharmacy 97.3; Estimated Glomerular Filt Rate > 60; Glucose Random 148 mg/dL (60-115); Magnesium 1.9 mg/dL (1.6-2.6); Sodium 144 mmol/L (135-145)
[2024-02-15 18:45] LABS: B Type Natriuretic Peptide 67 pg/mL (<100)
[2024-02-15 18:47] LABS: Troponin-I High Sensitivity 16.3 ng/L (<3.5-17.0)
[2024-02-15 18:56] LABS: Appearance Urine Clear; Color Urine Yellow; Glucose Urine UA >=1000 mg/dL (Negative); Leukocyte Esterase Urine Trace (Negative); Nitrite Urine Positive (Negative); PH 5.5 (5.0-9.0); Specific Gravity - Urine 1.025 (1.005-1.025); UMIC TRIGGER UACC YES; Urine Blood Negative (Negative); Urine Ketones Negative (Negative); Urine Protein Negative (Neg-Trace)
[2024-02-15 19:01] LABS: Bacteria Urine 4+ (None Seen); RBC Urine 0-2 /HPF (0-2); UACC Culture Trigger YES
[2024-02-15 19:06] LABS: Amphetamine Screen Urine Not Detected (Not Detect); Barbiturates, Urine Not Detected (Not Detect); Benzodiazepines Screen Urine Not Detected (Not Detect); Buprenorphine Scr Not Detected (Not Detect); Cannabinoid Screen Urine Not Detected (Not Detect); Cocaine Screen Urine Not Detected (Not Detect); Fentanyl, urine Not Detected (Not Detect); Methadone Screen, Urine Not Detected (Not Detect); Opiate Screen Urine Not Detected (Not Detect); Oxycodone Screen Urine Not Detected (Not Detect); Phencyclidine Screen Urine Not Detected (Not Detect)
--- NOTE | 2024-02-15 21:04 | PC.NURSE ---
Family at bedside, regularly ringing call chun for incidental needs, patient intermittently attempting to take off CPAP, family states patient has pain in back, requesting tylenol, verbal order given from provider for tylenol. Patient intermitently rude towards staff, stating this nurse has an attitude problem when I was unable to immediately reposition patient. ethnic origins teacher Chante hernandez.
--- NOTE | 2024-02-15 21:17 | ED.GENADULT ---
HPI - General Adult General Chief complaint: Altered Mental Status Stated complaint: hx COPD, 93% on CPAP, respiratory distress Time Seen by Provider: 02/15/24 17:38 Source: patient and EMS Mode of arrival: EMS Limitations: altered mental status History of Present Illness ED Provider: Dr. Thais Nguyen HPI narrative: Patient comes to the emergency room by ambulance from [facility]. According to the facility, patient had increased confusion, given an updraft around 14:00, found obtunded around 16:30. Patient was placed on CPAP by EMS and was brought to the emergency room. On arrival, patient denies any chest pain, states that she feels tired, agrees to wear CPAP. Per EMS, patient has history of COPD, uses 3 L of oxygen at baseline. Patient is currently on CPAP, patient seems a bit confused Related Data Home Medications ?Medication ?Instructions ?Recorded ?Confirmed acetaminophen 325 mg tablet 650 mg PO Q4H PRN Fever Or Pain 11/18/21 10/28/23 atorvastatin 80 mg tablet 80 mg PO BEDTIME 11/18/21 10/28/23 ferrous sulfate 325 mg (65 mg 325 mg PO DAILY 11/18/21 10/28/23 iron) tablet insulin lispro 100 unit/mL See Protocol subcut QIDACHS 11/18/21 10/28/23 subcutaneous pen melatonin 3 mg tablet 3 mg PO BEDTIME 11/18/21 10/28/23 polyethylene glycol 3350 17 gram 17 g PO DAILY PRN Constipation 11/18/21 10/28/23 oral powder packet (Miralax) sennosides 8.6 mg tablet (senna) 17.2 mg PO BEDTIME 11/18/21 10/28/23 sertraline 100 mg tablet 200 mg PO DAILY 11/18/21 10/28/23 tizanidine 4 mg tablet 4 mg PO BEDTIME PRN Muscle Spasm 11/18/21 10/28/23 aspirin 81 mg chewable tablet 81 mg PO DAILY 01/05/22 10/28/23 bupropion HCl 300 mg 24 hr tablet, 300 mg PO DAILY 04/09/22 10/28/23 extended release Lactobacillus rhamnosus GG 10 1 cap PO BID 10/09/22 10/28/23 billion cell capsule (Culturelle) bupropion HCl 150 mg 24 hr tablet, 1 tab PO DAILY 10/09/22 10/28/23 extended release ipratropium 0.5 mg-albuterol 3 mg 3 ml inhalation TID Wheezing 10/09/22 10/28/23 (2.5 mg base)/3 mL nebulization soln potassium chloride 10 mEq 10 meq PO DAILY 10/09/22 10/28/23 tablet,extended release bisacodyl 10 mg rectal suppository 10 mg NE DAILY PRN Constipation 10/21/22 10/28/23 fluticasone 113 mcg-salmeterol 14 1 inh inhalation DAILY 11/09/22 10/28/23 mcg/actuation breath activated powdr (AirDuo RespiClick) sodium phosphates 19 gram-7 118 ml NE DAILY PRN Constipation 11/09/22 10/28/23 gram/118 mL enema (Fleet Enema) metformin 500 mg tablet 500 mg PO BID 12/27/22 10/28/23 semaglutide 0.25 mg or 0.5 mg (2 0.5 mg subcut WE 12/27/22 10/28/23 mg/3 mL) subcutaneous pen injector ([employer]) cholecalciferol (vitamin D3) 25 25 mcg PO DAILY 04/04/23 10/28/23 mcg (1,000 unit) tablet insulin glargine 100 unit/mL 18 unit subcut DAILY 04/04/23 10/28/23 subcutaneous solution (Lantus U-100 Insulin) losartan 25 mg tablet 25 mg PO DAILY 04/04/23 10/28/23 megestrol 400 mg/10 mL (40 mg/mL) 400 mg PO TID 04/04/23 10/28/23 oral suspension olopatadine 0.2 % eye drops 1 drp ophthalmic (eye) QSHIFT 04/04/23 10/28/23 cyanocobalamin (vitamin B-12) 1,000 mcg PO DAILY 04/21/23 10/28/23 1,000 mcg capsule magnesium hydroxide 400 mg/5 mL 30 ml PO DAILY PRN Constipation 10/02/23 10/28/23 oral suspension (Milk of Magnesia) aripiprazole 2 mg tablet 2 mg PO DAILY 10/28/23 10/28/23 Previous Rx's ?Medication ?Instructions ?Recorded amlodipine 5 mg tablet 5 mg PO DAILY 30 days #30 tabs 11/26/21 furosemide 40 mg tablet 40 mg PO DAILY #30 tabs 04/05/22 acetazolamide 250 mg tablet 500 mg (2 x 250 mg) PO BID #60 tabs 01/06/23 empagliflozin 10 mg tablet 10 mg PO DAILY 30 days #30 tabs 01/17/23 (Jardiance) spironolactone 25 mg tablet 25 mg PO DAILY #30 tabs 11/01/23 Allergies Allergy/AdvReac Type Severity Reaction Status Date / Time latex Allergy Unknown Unknown Verified 02/15/24 17:50 adhesive tape AdvReac Unknown Unknown Verified 02/15/24 17:50 bupropion [From Wellbutrin] AdvReac Unknown Unknown Verified 02/15/24 17:50 ibuprofen AdvReac Unknown Unknown Verified 02/15/24 17:50 Review of Systems Review of Systems: Yes Unobtainable due to mental status [facility] Past Medical History Medical History Diabetes mellitus Acute and chronic respiratory failure with hypercapnia Morbid obesity Obesity hypoventilation syndrome Pressure injury of deep tissue of buttock Sepsis Hypoventilation associated with obesity COPD (chronic obstructive pulmonary disease) Morbid obesity with BMI of 50.0-59.9, adult Acute and chronic respiratory failure Pressure ulcer, stage II, skin breakdown Hypertrophic nonobstructive cardiomyopathy Presence of permanent cardiac pacemaker Acute on chronic respiratory failure with hypoxia and hypercapnia Metabolic encephalopathy Acute and chronic respiratory failure with hypercapnia Urinary tract infection due to ESBL Klebsiella Respiratory failure Presence of permanent cardiac pacemaker Sick sinus syndrome Morbid obesity Heart block AV third degree PAD (peripheral artery disease) Diabetic ulcer of foot associated with diabetes mellitus due to underlying condition, with fat layer exposed Atelectasis of both lungs Respiratory failure with hypoxia and hypercapnia Hypoventilation associated with obesity syndrome SMILEY (obstructive sleep apnea) Morbid obesity Pulmonary embolism CHF (congestive heart failure) Clostridium difficile infection Hypertension Diabetes mellitus, type 2 Depression Arthritis Anemia Surgical History History of total knee replacement Social History Social History Household Members: Unknown / Unable to assess Housing: Unknown / Unable to assess [facility] Pt confused, unable to ascertain further Are you a primary adult day care worker to a significant other at home: No Do you presently have visiting nurse or other home services: Yes Unable to assess alcohol history related to: Unknown Alcohol intake: never Patient Tobacco Use Status: Former Tobacco user Tobacco use type: Cigarette Cigarette Packs Per Day: 20 Cigarettes Per Day: 400.0 Years Smoked: 20 Smoked in Last 30 Days: No e-Cigarette/Vaping Use: Never Used Second Hand Smoke Exposure: No Use of substances other than those prescribed or required for medical reasons: No Substance Use Type: Unknown Advance Directives: Yes Advance Directives on File: Yes Advance Directives Date on File: 01/07/23 Do you have a plan to hurt others: No Plan service: No Current occupational status: disabled Physical Exam ED Vital Signs: Vital Signs - 24 hr 02/15/24 17:48 02/15/24 17:52 02/15/24 17:57 Temperature Pulse Rate 88 89 Respiratory Rate 32 H 26 H 23 H Blood Pressure 92/21 L 92/50 L Pulse Oximetry 92 91 L Oxygen Delivery Method CPAP CPAP 02/15/24 18:04 02/15/24 18:13 02/15/24 18:18 Temperature Pulse Rate 91 80 89 Respiratory Rate 27 H Blood Pressure 83/46 L 99/57 L Pulse Oximetry 92 91 L Oxygen Delivery Method CPAP CPAP 02/15/24 18:51 02/15/24 19:23 02/15/24 20:57 Temperature 99.9 F Pulse Rate 76 80 Respiratory Rate 20 20 33 H Blood Pressure 120/40 L 117/64 Pulse Oximetry 91 L 88 L Oxygen Delivery Method CPAP CPAP 02/15/24 22:00 Temperature 98.0 F Pulse Rate 77 Respiratory Rate 18 Blood Pressure 113/58 L Pulse Oximetry 97 Oxygen Delivery Method CPAP BMI result Body Mass Index 49.6 Const Other: Appearance: Alert. Seems confused, on CPAP Eyes: Pupils equal, round and reactive to light. ENT: Pharynx normal. Neck: Normal inspection. Neck supple. No lymph nodes noted. No crepitus CVS: Normal heart rate and rhythm. Pulses normal. Normal S1 and S2 Respiratory: Patient tachypneic, patient has decreased breath sounds bilaterally, no audible wheezing or crackles Abdomen: Soft and nontender. No rigidity. No distention. Skin: Skin warm and dry. Normal skin color. Normal skin turgor. Extremities: No lower extremity edema. No Lacerations. No Rash Neuro: Oriented X 3. No motor deficit. No sensory deficit. Moving all extremities. No slurred speech. CN 2 through 12 grossly intact Psych: calm, cooperative, normal affect Course Course Course Narrative: -all of patient's labs pending -patient will remain on CPAP Medications Administered Discontinued Medications Generic Name Dose Route Start Last Admin Trade Name Mike PRN Reason Stop Dose Admin Acetaminophen 650 mg 02/15/24 21:01 02/15/24 21:25 Acetaminophen 325 Mg Tablet PO 02/15/24 21:02 650 mg ONCE ONE Administration Albuterol Sulfate 5 mg/ 0 mg 02/15/24 17:55 02/15/24 18:04 Albuterol/Ipratropium 3 ml INHALE 02/15/24 17:56 1 each ONCE ONE Administration Ceftriaxone Sodium 1 gm/ 50 mls @ 100 mls/hr 02/15/24 21:02 02/15/24 22:14 Sodium Chloride IV 02/15/24 21:31 Infused ONCE ONE Infusion Methylprednisolone Sodium Succinate 125 mg 02/15/24 17:41 02/15/24 17:57 Methylprednisolone Sod Succ 125 Mg/2 Ml Vial IVPUSH 02/15/24 17:42 125 mg ONCE ONE Administration Medical Decision Making Medical Decision Making MDM Narrative: -my interpretation of labs, normal white blood cell count, pCO2 from venous gases 72, baseline between 40 and 50, normal chemistry. Serology negative for COVID and influenza. Urinalysis is positive chronically with nitrate, leukocytes, white blood cell count elevation. However, patient has had multiple UTIs the do not grow any specific bacteria. Patient has tested positive for E coli in the past, susceptible to ceftriaxone. Empirically, patient was given a dose of ceftriaxone. -patient has history or hypercapnic respiratory failure requiring CPAP or BiPAP. Patient does not seem to have any viral or bacterial process that may be triggering this at this time. Sepsis is not suspected -patient has been on CPAP for 3 hours, we will go ahead and repeat blood gases at this time. If pCO2 is improving, patient may be taking of the mass. At this time, patient is much more awake, alert, requesting to have the mask taken off -patient has been completely awake, alert, eating and drinking since she has been of the BiPAP, patient verbal, feeling much better. -overall, seems that patient had respiratory hypercarbic respiratory failure, improved with CPAP. Does not seem that patient has a chronic lung disease exacerbation or CHF. -earlier today, patient received empiric ceftriaxone -Patient had a low blood pressure, seems that the blood pressure cuff was not on right -I discussed the patient with Dr. Rubin, patient being admitted Differential Diagnosis Differential Diagnoses: The differential diagnosis associated with the presentation includes (Chronic lung disease, pneumonia, CHF, respiratory failure, hypoventilation syndrome) Admission/Observation Consideration of admission/observation: Escalation of care including admission/observation considered Consult Healthcare Provider Management of the patient was discussed with: Hospitalist Lab Data MDM Lab Attestation statement: I reviewed the patient's lab results. 02/15/24 17:59 02/15/24 17:59 Labs: Lab Results 02/15/24 02/15/24 02/15/24 Range/Units 17:59 18:02 18:48 WBC 8.1 (4.8-10.8) X10*3/uL RBC 4.14 L (4.20-5.50) X10*6/uL Hgb 12.2 (12.0-16.0) g/dl Hct 41.6 (37.0-47.0) % MCV 100.5 H (80.0-98.0) fL MCH 29.5 (27.0-33.0) pg MCHC 29.3 L (31.0-35.0) g/dl RDW 14.6 (11.0-16.0) % Plt Count 243 (160-400) X10*3/uL MPV 10.4 (9.4-12.3) fL Immature Gran % (Auto) 0.4 (0.0-0.4) % Neut % (Auto) 72.4 (45-73) % Lymph % (Auto) 17.7 L (20-40) % Tyrrell % (Auto) 8.0 (2-11) % Eos % (Auto) 1.1 (0-4) % Baso % (Auto) 0.4 (0-2) % Lymph # (Auto) 1.4 (1.2-4.9) X10*3/uL Tyrrell # (Auto) 0.7 (0.1-1.2) X10*3/uL Eos # (Auto) 0.1 (0.0-0.4) X10*3/uL Baso # (Auto) 0.0 (0.0-0.2) X10*3/uL Abs Immat Gran (auto) 0.03 (0.00-0.03) X10*3/uL Absolute Neuts (auto) 5.9 (2.0-8.3) x10*3/uL Absolute Nucleated RBC 0.020 H (0.0-0.012) X10*3/uL Nucleated RBC % (auto) 0.2 (0.0-0.2) /100WBC PT 11.3 (11.1-13.3) SEC INR 0.9 (0.9-1.1) VBG pH 7.32 (7.32-7.43) VBG pCO2 72 mmHg VBG pO2 92 mmHg VBG HCO3 37 H (22-26) mmol/L VBG O2 Saturation 98.0 % VBG Base Excess 9.0 mmol/L Sodium 144 (135-145) mmol/L Potassium 4.0 (3.3-5.1) mmol/L Chloride 102 (96-108) mmol/L Carbon Dioxide 34 H (22-29) mmol/L Anion Gap 12 (12-20) BUN 19 H (9-16) mg/dL Creatinine 0.87 (0.5-1.4) mg/dL Estim Creat Clear Calc 97.3 Estimated GFR > 60 Random Glucose 148 H (60-115) mg/dL Lactic Acid 0.6 (0.5-2.0) mmol/L Calcium 9.1 (8.4-10.2) mg/dL Magnesium 1.9 (1.6-2.6) mg/dL Total Bilirubin 0.2 (0.0-1.0) mg/dL Direct Bilirubin < 0.2 (0.0-0.5) mg/dL AST 12 (5-31) U/L ALT 8 (0-31) U/L Alkaline Phosphatase 84 (39-117) U/L Troponin I High Sens 16.3 (<3.5-17.0) ng/L B-Natriuretic Peptide 67 (<100) pg/mL Total Protein 7.0 (6.5-8.0) g/dL Albumin 3.5 (3.5-5.0) g/dL Urine Color Yellow Urine Appearance Clear Urine pH 5.5 (5.0-9.0) Ur Specific [place] 1.025 (1.005-1.025) Urine Protein Negative (Neg-Trace) mg/dL Urine Glucose (UA) >=1000 H (Negative) mg/dL Urine Ketones Negative (Negative) mg/dL Urine Blood Negative (Negative) Urine Nitrite Positive H (Negative) Ur Leukocyte Esterase Trace H (Negative) Urine RBC 0-2 (0-2) /HPF Urine WBC 11-20 H (0-5) /HPF Ur Squamous Epith Cells 3-5 (0-2) /HPF Urine Bacteria 4+ (None Seen) Hyaline Casts 3-5 (0-2) /LPF Urine Opiates Screen Not Detected (Not Detect) Ur Buprenorphine Scrn Not Detected (Not Detect) ng/mL Ur Oxycodone Screen Not Detected (Not Detect) ng/mL Urine Methadone Screen Not Detected (Not Detect) ng/mL Urine Fentanyl Screen Not Detected (Not Detect) Ur Barbiturates Screen Not Detected (Not Detect) Ur Phencyclidine Scrn Not Detected (Not Detect) Ur Amphetamines Screen Not Detected (Not Detect) U Benzodiazepines Scrn Not Detected (Not Detect) Urine Cocaine Screen Not Detected (Not Detect) U Marijuana (THC) Screen Not Detected (Not Detect) COVID-19 (LIS) Negative (Negative) COVID-19 Clin Com See Note Influenza Type A (CHUNG) Negative (Negative) Influenza Type B (CHUNG) Negative (Negative) Influenza A & B Note See Note 02/15/24 Range/Units 21:39 WBC (4.8-10.8) X10*3/uL RBC (4.20-5.50) X10*6/uL Hgb (12.0-16.0) g/dl Hct (37.0-47.0) % MCV (80.0-98.0) fL MCH (27.0-33.0) pg MCHC (31.0-35.0) g/dl RDW (11.0-16.0) % Plt Count (160-400) X10*3/uL MPV (9.4-12.3) fL Immature Gran % (Auto) (0.0-0.4) % Neut % (Auto) (45-73) % Lymph % (Auto) (20-40) % Tyrrell % (Auto) (2-11) % Eos % (Auto) (0-4) % Baso % (Auto) (0-2) % Lymph # (Auto) (1.2-4.9) X10*3/uL [place] # (Auto) (0.1-1.2) X10*3/uL Eos # (Auto) (0.0-0.4) X10*3/uL Baso # (Auto) (0.0-0.2) X10*3/uL Abs Immat Gran (auto) (0.00-0.03) X10*3/uL Absolute Neuts (auto) (2.0-8.3) x10*3/uL Absolute Nucleated RBC (0.0-0.012) X10*3/uL Nucleated RBC % (auto) (0.0-0.2) /100WBC PT (11.1-13.3) SEC INR (0.9-1.1) VBG pH 7.38 (7.32-7.43) VBG pCO2 64 mmHg VBG pO2 79 mmHg VBG HCO3 39 H (22-26) mmol/L VBG O2 Saturation 97.0 % VBG Base Excess 11.2 mmol/L Sodium (135-145) mmol/L Potassium (3.3-5.1) mmol/L Chloride (96-108) mmol/L Carbon Dioxide (22-29) mmol/L Anion Gap (12-20) BUN (9-16) mg/dL Creatinine (0.5-1.4) mg/dL Estim Creat Clear Calc Estimated GFR Random Glucose (60-115) mg/dL Lactic Acid (0.5-2.0) mmol/L Calcium (8.4-10.2) mg/dL Magnesium (1.6-2.6) mg/dL Total Bilirubin (0.0-1.0) mg/dL Direct Bilirubin (0.0-0.5) mg/dL AST (5-31) U/L ALT (0-31) U/L Alkaline Phosphatase (39-117) U/L Troponin I High Sens (<3.5-17.0) ng/L B-Natriuretic Peptide (<100) pg/mL Total Protein (6.5-8.0) g/dL Albumin (3.5-5.0) g/dL Urine Color Urine Appearance Urine pH (5.0-9.0) Ur Specific [place] (1.005-1.025) Urine Protein (Neg-Trace) mg/dL Urine Glucose (UA) (Negative) mg/dL Urine Ketones (Negative) mg/dL Urine Blood (Negative) Urine Nitrite (Negative) Ur Leukocyte Esterase (Negative) Urine RBC (0-2) /HPF Urine WBC (0-5) /HPF Ur Squamous Epith Cells (0-2) /HPF Urine Bacteria (None Seen) Hyaline Casts (0-2) /LPF Urine Opiates Screen (Not Detect) Ur Buprenorphine Scrn (Not Detect) ng/mL Ur Oxycodone Screen (Not Detect) ng/mL Urine Methadone Screen (Not Detect) ng/mL Urine Fentanyl Screen (Not Detect) Ur Barbiturates Screen (Not Detect) Ur Phencyclidine Scrn (Not Detect) Ur Amphetamines Screen (Not Detect) U Benzodiazepines Scrn (Not Detect) Urine Cocaine Screen (Not Detect) U Marijuana (THC) Screen (Not Detect) COVID-19 (LIS) (Negative) COVID-19 Clin Com Influenza Type A (CHUNG) (Negative) Influenza Type B (CHUNG) (Negative) Influenza A & B Note Independent Interpretation I performed an independent interpretation of an: Plain X-Ray Radiology Impression Discussion of test interpretation with radiology: I have reviewed the radiologist's reading. Radiologist Impression: FINDINGS: The lungs are hypoexpanded with bilateral prominent perihilar markings suspicious for mild congestion. There is mild cardiomegaly. There are pacer electrodes in right atrium and right ventricle. No gross bony abnormality. XR/XR chest 1V IMPRESSION: Mild cardiomegaly with mild pulmonary vascular congestion suspected. Stable pacer electrodes from 10/28/2023 Critical Care Time Critical Care Time Critical Care Time: Yes Total Critical Care Time: 90 Attestation: I have personally provided critical care time. Time includes review of lab data, radiology results, discussion with consultants, and monitoring for potential decompensation. Intervention performed as documented. Discharge Plan Discharge Clinical Impression: Acute hypercapnic respiratory failure Patient Disposition: Admitted As Inpatient Prescriptions: No Action furosemide 40 mg Tablet 40 mg PO DAILY Qty: 30 0RF Protocol: Hold for SBP< HOLD for SBP < : 90 ipratropium-albuterol 0.5 mg-3 mg(2.5 mg base)/3 mL Solution For Nebulization 3 ml INHALATION TID potassium chloride 10 mEq Tablet Extended Release 10 meq PO DAILY Hold Instructions: Recheck K level in 1 week to decide if needed or not. Culturelle 10 billion cell Capsule 1 cap PO BID bupropion HCl 150 mg tablet extended release 24 hr 1 tab PO DAILY Rx Instructions: take with 300mg; tdd 450mg Fleet Enema 19-7 gram/118 mL Enema 118 ml NE DAILY PRN (Reason: Constipation) Rx Instructions: (STEP 3) IF NO BOWEL MOVEMENT 8 HOURS AFTER BISACODYL fluticasone propion-salmeterol [AirDuo RespiClick] 113-14 mcg/actuation aerosol powdr breath activated 1 inh inhalation DAILY Rx Instructions: rinse mouth after use AND SPIT OUT atorvastatin 80 mg Tablet 80 mg PO BEDTIME sennosides [senna] 8.6 mg Tablet 17.2 mg PO BEDTIME acetaminophen 325 mg Tablet 650 mg PO Q4H PRN (Reason: Fever Or Pain) polyethylene glycol 3350 [Miralax] 17 gram Powder In Packet 17 g PO DAILY PRN (Reason: Constipation) tizanidine 4 mg Tablet 4 mg PO BEDTIME PRN (Reason: Muscle Spasm) sertraline 100 mg Tablet 200 mg PO DAILY melatonin 3 mg Tablet 3 mg PO BEDTIME ferrous sulfate 325 mg (65 mg iron) Tablet 325 mg PO DAILY insulin lispro 100 unit/mL Insulin Pen See Protocol SUBCUT QIDACHS Protocol: Insulin Correction Scale Less than or equal to 110 ---- Give (units): 0 111 to 150 Give (units): 0 151 to 200 Give (units): 0 201 to 250 Give (units): 4 251 to 300 Give (units): 6 301 to 350 Give (units): 8 Greater than 350 Give (units): 10 Call MD if Blood Glucose > : 350 Rx Instructions: SLIDING SCALE IF BLOOD GLUCOSE GREATER THAN 400, GIVE 12 UNITS AND NOTIFY MD amlodipine 5 mg Tablet 5 mg PO DAILY 30 Days Qty: 30 0RF Protocol: Hold for SBP< HOLD for SBP < : 90 aspirin 81 mg Tablet,Chewable 81 mg PO DAILY acetazolamide 250 mg Tablet 500 mg PO BID Qty: 60 0RF Jardiance 10 mg Tablet 10 mg PO DAILY 30 Days Qty: 30 0RF losartan 25 mg tablet 25 mg PO DAILY cholecalciferol (vitamin D3) 25 mcg (1,000 unit) Tablet 25 mcg PO DAILY olopatadine 0.2 % Drops 1 drp OPHTHALMIC (EYE) QSHIFT megestrol 400 mg/10 mL (40 mg/mL) suspension 400 mg PO TID insulin glargine [Lantus U-100 Insulin] 100 unit/mL solution 18 unit subcut DAILY metformin 500 mg tablet 500 mg PO BID Ozempic 0.25 mg or 0.5 mg (2 mg/3 mL) pen injector 0.5 mg subcut WE magnesium hydroxide [Milk of Magnesia] 400 mg/5 mL Suspension 30 ml PO DAILY PRN (Reason: Constipation) aripiprazole 2 mg tablet 2 mg PO DAILY spironolactone 25 mg Tablet 25 mg PO DAILY Qty: 30 0RF Protocol: Hold for SBP< HOLD for SBP < : 90 bisacodyl 10 mg suppository 10 mg NE DAILY PRN (Reason: Constipation) Rx Instructions: GIVE IF NO RESULT FROM MILK OF MAGNESIA cyanocobalamin (vitamin B-12) 1,000 mcg capsule 1,000 mcg PO DAILY bupropion HCl 300 mg tablet extended release 24 hr 300 mg PO DAILY Rx Instructions: take with 150mg dose; tdd 450mg Print Language: Telugu
[2024-02-15] MEDS: Acetaminophen 325 MG TABLET 650 MG PO (21:25)
[2024-02-15] MEDS: cefTRIAXone sodium 1 GM in 0.9 % Sodium Chloride 50 ML IV (21:26)
[2024-02-15 21:45] LABS: VBG Base Excess 11.2 mmol/L; VBG HCO3 39 mmol/L (22-26); VBG pCO2 64 mmHg; VBG pH 7.38 (7.32-7.43); VBG pO2 79 mmHg
[2024-02-15 21:46] LABS: Venous Blood Gas Refer to POC result
[2024-02-16] VITALS (15 sets, daily range): BP systolic 91–146; BP diastolic 32–79; PULSE 69–96; RESP 14–29; TEMP 36.8–37.8; O2SAT 88–93
--- NOTE | 2024-02-16 01:09 | PC.NURSE ---
assumed care of pt at this time. pt resting comfortably in bed with eyes closed. resp even and unlabored. pt seen by hospitalist for admission, awaiting admit orders. call chun within reach.
--- NOTE | 2024-02-16 01:21 | PC.NURSE ---
pt repositioned to right side. axox4. pt remains 89% on 3L NC; per md sats 88-90%. call chun within reach.
[2024-02-16 02:22] LABS: Glucose, Whole Blood 193 mg/dL (60-115)
[2024-02-16] MEDS: Insulin Lispro 100 UNIT/ML 3 ML VIAL SUBCUT ×3 (02:58→22:27)
--- NOTE | 2024-02-16 03:00 | PC.NURSE ---
frausto placed as documented draining clear yellow urine, pt tolerated well. poc 193 pt medicated per nov. bp 96/40, Dr. Scottie Germain made aware to hold lasix at this time. pt is axox3 speaking full clear sentences. placed ion AVAPS by RT tolerating well. call chun within reach.
--- NOTE | 2024-02-16 03:20 | P.HPHOSP_ITS ---
History of Present Illness Date of Service: 02/16/24 Attending physician on admission: Masoud Germain Chief Complaint: I have been feeling confused Bonnie Das is a 63 years old woman with past medical history significant for morbid obesity, obstructive sleep apnea on AVAPS, HFpEF, HNOC, COPD -on 2-3 L/min via NC, type 2 diabetes mellitus, permanent pacemaker implantation due to sick sinus syndrome, essential hypertension, UTIs, multiple hospitalizations due to acute mental status and depression was brought to the ED by EMS from [facility] due to increasing confusion and found obtunded at 4:30 AM. She started on CPAP by EMS. Patient was placed on rescue CPAP by ED 6 pm (last night) and discontinue around 10 pm. Her mentation improved and now on 3 L/min supplemental oxygen via nasal cannula. Patient stated that she has chronic shortness of breath. Denied chest pain, palpitations, cough, fever or chills. She stated no use of sedatives or strong pain killers. In the ED, she was found to have low normal blood pressure and tachypnea. Blood pressure is 96/40. There is no tachycardia. Blood workup showed no leukocytosis, anemia or thrombocytopenia. INR is normal. Initial blood gas show a. Initial VBG showed pH 7.32 and PCO2 72. Most recent 1 showed pH of 7.38 and pCO2 of 64 (patient's baseline pCO2 is around 50). There are no significant electrolyte imbalances, CO2 is elevated at 34. Creatinine 0.87. Glucose is 148. Lactic acid, LFTs, BNP and troponin are normal. CXR showed mild cardiomegaly with mild pulmonary vascular congestion suspected. ED tx: Ceftriaxone 1 g IV, acetaminophen 650 mg p.o., Solu-Medrol 125 mg IV, albuterol nebs. Review of Systems 2 Review of Systems: Yes Unobtainable due to mental condition [facility] Medical History Diabetes mellitus Acute and chronic respiratory failure with hypercapnia Morbid obesity Obesity hypoventilation syndrome Pressure injury of deep tissue of buttock Sepsis Hypoventilation associated with obesity COPD (chronic obstructive pulmonary disease) Morbid obesity with BMI of 50.0-59.9, adult Acute and chronic respiratory failure Pressure ulcer, stage II, skin breakdown Hypertrophic nonobstructive cardiomyopathy Presence of permanent cardiac pacemaker Acute on chronic respiratory failure with hypoxia and hypercapnia Metabolic encephalopathy Acute and chronic respiratory failure with hypercapnia Urinary tract infection due to ESBL Klebsiella Respiratory failure Presence of permanent cardiac pacemaker Sick sinus syndrome Morbid obesity Heart block AV third degree PAD (peripheral artery disease) Diabetic ulcer of foot associated with diabetes mellitus due to underlying condition, with fat layer exposed Atelectasis of both lungs Respiratory failure with hypoxia and hypercapnia Hypoventilation associated with obesity syndrome SMILEY (obstructive sleep apnea) Morbid obesity Pulmonary embolism CHF (congestive heart failure) Clostridium difficile infection Hypertension Diabetes mellitus, type 2 Depression Arthritis Anemia Surgical History History of total knee replacement Social History Household Members: Unknown / Unable to assess Housing: Unknown / Unable to assess [facility] confused, unable to ascertain further Are you a primary director of health care marketing to a significant other at home: No Do you presently have visiting nurse or other home services: Yes Unable to assess alcohol history related to: Unknown Alcohol intake: never Patient Tobacco Use Status: Former Tobacco user Tobacco use type: Cigarette Cigarette Packs Per Day: 20 Cigarettes Per Day: 400.0 Years Smoked: 20 Smoked in Last 30 Days: No e-Cigarette/Vaping Use: Never Used Second Hand Smoke Exposure: No Use of substances other than those prescribed or required for medical reasons: No Substance Use Type: Unknown Advance Directives: Yes Advance Directives on File: Yes Advance Directives Date on File: 01/07/23 Do you have a plan to hurt others: No Plan Nutrition Risks: No Nutritional Risk service: No Current occupational status: disabled Meds Allergies Allergy/AdvReac Type Severity Reaction Status Date / Time latex Allergy Unknown Unknown Verified 02/15/24 17:50 adhesive tape AdvReac Unknown Unknown Verified 02/15/24 17:50 bupropion [From Wellbutrin] AdvReac Unknown Unknown Verified 02/15/24 17:50 ibuprofen AdvReac Unknown Unknown Verified 02/15/24 17:50 Active Medications: Current Medications Acetaminophen (Acetaminophen 325 Mg Tablet) 975 mg PO Q6H PRN PRN Reason: mild pain, headche or fever Glucose (Glucose Gel 15 Gm Gel..Gram.) 15 gm PO Q15M PRN; Protocol PRN Reason: per Hypoglycemia Standing Ord. Heparin Sodium (Porcine) (Heparin Sodium,Porcine 5,000 Unit/Ml Vial) 5,000 unit SUBCUT Q8H ROSSY Ceftriaxone Sodium 1 gm/ (Sodium Chloride) 50 mls @ 100 mls/hr IV Q24H ROSSY Dextrose (D10) 250 mls @ 750 mls/hr IV Q15M PRN; Protocol PRN Reason: per Hypoglycemia Standing Ord. Insulin Human Lispro (Insulin Lispro 100 Unit/Ml 3 Ml Vial) 0 unit SUBCUT Q6H [facility]; Protocol Last Admin: 02/16/24 02:58 Dose: 2 unit Sodium Chloride (0.9 % Sodium Chloride Flush 3 Ml Syringe) 3 ml IVFLUSH QSHIFT [facility] Home Medications ?Medication ?Instructions ?Recorded ?Confirmed ?Last Taken ?Type acetaminophen 325 mg tablet 650 mg PO Q4H PRN Fever Or Pain 11/18/21 10/28/23 Unknown History atorvastatin 80 mg tablet 80 mg PO BEDTIME 11/18/21 10/28/23 Unknown History ferrous sulfate 325 mg (65 mg 325 mg PO DAILY 11/18/21 10/28/23 Unknown History iron) tablet insulin lispro 100 unit/mL See Protocol subcut QIDACHS 11/18/21 10/28/23 Unknown History subcutaneous pen melatonin 3 mg tablet 3 mg PO BEDTIME 11/18/21 10/28/23 Unknown History polyethylene glycol 3350 17 gram 17 g PO DAILY PRN Constipation 11/18/21 10/28/23 Unknown History oral powder packet (Miralax) sennosides 8.6 mg tablet (senna) 17.2 mg PO BEDTIME 11/18/21 10/28/23 Unknown History sertraline 100 mg tablet 200 mg PO DAILY 11/18/21 10/28/23 Unknown History tizanidine 4 mg tablet 4 mg PO BEDTIME PRN Muscle Spasm 11/18/21 10/28/23 Unknown History aspirin 81 mg chewable tablet 81 mg PO DAILY 01/05/22 10/28/23 Unknown History bupropion HCl 300 mg 24 hr tablet, 300 mg PO DAILY 04/09/22 10/28/23 Unknown History extended release Lactobacillus rhamnosus GG 10 1 cap PO BID 10/09/22 10/28/23 Unknown History billion cell capsule (Culturelle) bupropion HCl 150 mg 24 hr tablet, 1 tab PO DAILY 10/09/22 10/28/23 Unknown History extended release ipratropium 0.5 mg-albuterol 3 mg 3 ml inhalation TID Wheezing 10/09/22 10/28/23 Unknown History (2.5 mg base)/3 mL nebulization soln potassium chloride 10 mEq 10 meq PO DAILY 10/09/22 10/28/23 Unknown History tablet,extended release bisacodyl 10 mg rectal suppository 10 mg WA DAILY PRN Constipation 10/21/22 10/28/23 Unknown History fluticasone 113 mcg-salmeterol 14 1 inh inhalation DAILY 11/09/22 10/28/23 Unknown History mcg/actuation breath activated powdr (AirDuo RespiClick) sodium phosphates 19 gram-7 118 ml WA DAILY PRN Constipation 11/09/22 10/28/23 Unknown History gram/118 mL enema (Fleet Enema) metformin 500 mg tablet 500 mg PO BID 12/27/22 10/28/23 Unknown History semaglutide 0.25 mg or 0.5 mg (2 0.5 mg subcut WE 12/27/22 10/28/23 Unknown History mg/3 mL) subcutaneous pen injector (Ozempic) cholecalciferol (vitamin D3) 25 25 mcg PO DAILY 04/04/23 10/28/23 Unknown History mcg (1,000 unit) tablet insulin glargine 100 unit/mL 18 unit subcut DAILY 04/04/23 10/28/23 Unknown History subcutaneous solution (Lantus U-100 Insulin) losartan 25 mg tablet 25 mg PO DAILY 04/04/23 10/28/23 Unknown History megestrol 400 mg/10 mL (40 mg/mL) 400 mg PO TID 04/04/23 10/28/23 Unknown History oral suspension olopatadine 0.2 % eye drops 1 drp ophthalmic (eye) QSHIFT 04/04/23 10/28/23 Unknown History cyanocobalamin (vitamin B-12) 1,000 mcg PO DAILY 04/21/23 10/28/23 Unknown History 1,000 mcg capsule magnesium hydroxide 400 mg/5 mL 30 ml PO DAILY PRN Constipation 10/02/23 10/28/23 Unknown History oral suspension (Milk of Magnesia) aripiprazole 2 mg tablet 2 mg PO DAILY 10/28/23 10/28/23 Unknown History Physical Exam 2 Vital Signs and Narrative: Vital Signs: Last Vital Signs Temp 98.8 F 02/16/24 01:22 Pulse 78 02/16/24 03:02 Resp 24 H 02/16/24 03:02 BP 96/40 L 02/16/24 03:02 Pulse Ox 93 02/16/24 03:02 O2 Del Method BiPAP 02/16/24 03:02 O2 Flow Rate 3 02/16/24 01:22 BMI result Body Mass Index 49.6 Constitutional - Somnolent but wakes up on calling her name. Able to answer questions appropriately. Seems confused and irritable all times. Obese. Nasal cannula in place. HEENT - Pupils equally round. Normal sclerae. Dry oral mucosa. Heart - Regular sounds with distant Lungs - Normal lung expansion, poor respiratory effort, No respiratory distress. Tachypnea. Decreased breath sound bilaterally. No wheezes or rhonchi. Abdomen - Large pannus. Nontenderness; +BS; No rebound or guarding Extremities - Lower extremity edema Musculoskeletal - Normal inspection, normal ROM Skin - Warm/Dry Neurological - Alert & oriented only to person and place. No facial droop. Normal speech. Psychological - No agitation. Results Labs 02/15/24 17:59 02/15/24 17:59 Labs: Laboratory Results - last 24 hr 02/15/24 02/15/24 02/15/24 17:59 18:02 18:48 MCV 100.5 H MCH 29.5 MCHC 29.3 L RDW 14.6 Plt Count 243 MPV 10.4 Immature Gran % (Auto) 0.4 Neut % (Auto) 72.4 Lymph % (Auto) 17.7 L [place] % (Auto) 8.0 Eos % (Auto) 1.1 Baso % (Auto) 0.4 Lymph # (Auto) 1.4 [place] # (Auto) 0.7 Eos # (Auto) 0.1 Baso # (Auto) 0.0 Abs Immat Gran (auto) 0.03 Absolute Neuts (auto) 5.9 Absolute Nucleated RBC 0.020 H Nucleated RBC % (auto) 0.2 PT 11.3 INR 0.9 VBG pH 7.32 VBG pCO2 72 VBG pO2 92 VBG HCO3 37 H VBG O2 Saturation 98.0 VBG Base Excess 9.0 Anion Gap 12 Estim Creat Clear Calc 97.3 Estimated GFR > 60 POC Glucose Random Glucose 148 H Lactic Acid 0.6 Calcium 9.1 Magnesium 1.9 Total Bilirubin 0.2 Direct Bilirubin < 0.2 AST 12 ALT 8 Alkaline Phosphatase 84 Troponin I High Sens 16.3 B-Natriuretic Peptide 67 Total Protein 7.0 Albumin 3.5 Urine Color Yellow Urine Appearance Clear Urine pH 5.5 Ur Specific Start 1.025 Urine Protein Negative Urine Glucose (UA) >=1000 H Urine Ketones Negative Urine Blood Negative Urine Nitrite Positive H Ur Leukocyte Esterase Trace H Urine RBC 0-2 Urine WBC 11-20 H Ur Squamous Epith Cells 3-5 Urine Bacteria 4+ Hyaline Casts 3-5 Urine Opiates Screen Not Detected Ur Buprenorphine Scrn Not Detected Ur Oxycodone Screen Not Detected Urine Methadone Screen Not Detected Urine Fentanyl Screen Not Detected Ur Barbiturates Screen Not Detected Ur Phencyclidine Scrn Not Detected Ur Amphetamines Screen Not Detected U Benzodiazepines Scrn Not Detected Urine Cocaine Screen Not Detected U Marijuana (THC) Screen Not Detected COVID-19 (LIS) Negative COVID-19 Clin Com See Note Influenza Type A (CHUNG) Negative Influenza Type B (CHUNG) Negative Influenza A & B Note See Note 02/15/24 02/16/24 21:39 02:11 MCV MCH MCHC RDW Plt Count MPV Immature Gran % (Auto) Neut % (Auto) Lymph % (Auto) [place] % (Auto) Eos % (Auto) Baso % (Auto) Lymph # (Auto) [place] # (Auto) Eos # (Auto) Baso # (Auto) Abs Immat Gran (auto) Absolute Neuts (auto) Absolute Nucleated RBC Nucleated RBC % (auto) PT INR VBG pH 7.38 VBG pCO2 64 VBG pO2 79 VBG HCO3 39 H VBG O2 Saturation 97.0 VBG Base Excess 11.2 Anion Gap Estim Creat Clear Calc Estimated GFR POC Glucose 193 H Random Glucose Lactic Acid Calcium Magnesium Total Bilirubin Direct Bilirubin AST ALT Alkaline Phosphatase Troponin I High Sens B-Natriuretic Peptide Total Protein Albumin Urine Color Urine Appearance Urine pH Ur Specific Start Urine Protein Urine Glucose (UA) Urine Ketones Urine Blood Urine Nitrite Ur Leukocyte Esterase Urine RBC Urine WBC Ur Squamous Epith Cells Urine Bacteria Hyaline Casts Urine Opiates Screen Ur Buprenorphine Scrn Ur Oxycodone Screen Urine Methadone Screen Urine Fentanyl Screen Ur Barbiturates Screen Ur Phencyclidine Scrn Ur Amphetamines Screen U Benzodiazepines Scrn Urine Cocaine Screen U Marijuana (THC) Screen COVID-19 (LIS) COVID-19 Clin Com Influenza Type A (CHUNG) Influenza Type B (CHUNG) Influenza A & B Note Imaging Radiologist's Impressions: Impressions Chest X-Ray 02/15/24 18:35 IMPRESSION: Mild cardiomegaly with mild pulmonary vascular congestion suspected. Stable pacer electrodes from 10/28/2023 Assessment and Plan (1) Acute hypercapnic respiratory failure: Status: Acute (2) Acute respiratory failure with hypoxia: Status: Acute Plan Bonnie Das is a 63 y/o woman admitted with: * Acute on chronic hypercapnic and hypoxic respiratory failure likely multifactorial: Obesity hypoventilatory syndrome and acute on chronic systolic congestive heart failure (BNP normal -but could be normal in obese patients). Admit to hospitalist service. Telemetry. Pulse oximetry. Supplemental oxygen to keep O2 sats above 90%. Continue diuretic if blood pressure allows. Nocturnal BiPAP/AVAPS. Cardiology and pulmonology consults. * Acute encephalopathy likely secondary to CO2 narcosis. Keep NPO. Fall and aspiration precautions. Venous blood gas in the morning. * Acute on chronic diastolic congestive heart failure/HNOC. Continue diuretics able to pressure allows. * Presumed urinary tract infection. Continue empiric IV antibiotic therapy with ceftriaxone. UC obtained -will follow results. * Type 2 diabetes mellitus. BG checks every 6 hours while NPO. Insulin sliding scale. * Essential hypertension. BP is low normal. Hold antihypertensive meds. * History of pacemaker implantation. * Hyperlipidemia. Continue statin. * Morbid obesity. BMI 49.6 kg/m2. * Depression. Continue home medications. DVT prophylaxis: Heparin Code status: Full Home meds reconciliation by pharmacy still pending. Patient will need hospitalization for at least 2 midnights for acute on chronic hypercapnic and hypoxic respiratory failure management with supplemental oxygen, noninvasive ventilation and diuretics. Patient also will need evaluation by subspecialties. Quality Stroke Does the patient have a stroke diagnosis?: No VTE Prior VTE?: No VTE Risk Level:: Medical - moderate - high VTE Device Contraindication: Treatment Not Indicated VTE Drug Contraindication: N/A - Med Ordered
--- NOTE | 2024-02-16 04:01 | PC.NURSE ---
pt ripped bipap/avaps mask off, pulled iv out. pt placed on 3L NC as pt moved into hospital bed. placed back on avaps mask. pt stated phrases not making sense, aware of self and surroundings. pt repositioned in hospital bed. new iv placed to L. shoulder. Dr. Scottie Germain made aware. new order for vbg. call chun within reach.
[2024-02-16 04:30] LABS: Basophils Percent Auto 0.2 % (0-2); Hematocrit 39.6 % (37.0-47.0); Imm Gran Abs Auto 0.02 X10*3/uL (0.00-0.03); Imm Gran Pct Auto 0.3 % (0.0-0.4); Lymphocytes Absolute Auto 0.6 X10*3/uL (1.2-4.9); Lymphocytes Percent Auto 8.5 % (20-40); MANUAL DIFF FLAG SCAN; Mean Corpuscular HGB Conc 30.3 g/dl (31.0-35.0); Mean Corpuscular Hemoglobin 29.3 pg (27.0-33.0); Mean Corpuscular Volume 96.8 fL (80.0-98.0); Mean Platelet Volume 10.2 fL (9.4-12.3); Monocytes Absolute Auto 0.1 X10*3/uL (0.1-1.2); Monocytes Percent Auto 0.9 % (2-11); Neutrophils Absolute Auto 5.8 x10*3/uL (2.0-8.3); Neutrophils Percent Auto 90.1 % (45-73); Platelet Count 227 X10*3/uL (160-400); Red Blood Count 4.09 X10*6/uL (4.20-5.50); Red Cell Distribution Width 14.5 % (11.0-16.0); SCAN SMEAR FLAG 1; White Blood Count 6.5 X10*3/uL (4.8-10.8)
[2024-02-16 04:31] LABS: Venous Blood Gas Refer to POC result
[2024-02-16 04:34] LABS: VBG Base Excess 8.3 mmol/L; VBG HCO3 34 mmol/L (22-26); VBG pCO2 53 mmHg; VBG pH 7.41 (7.32-7.43); VBG pO2 51 mmHg
[2024-02-16 04:47] LABS: Alanine Aminotransferase 8 U/L (0-31); Albumin Level 3.5 g/dL (3.5-5.0); Alkaline Phosphatase 84 U/L (39-117); Anion Gap 15 (12-20); Aspartate Amino Transferase 10 U/L (5-31); Bilirubin Total 0.2 mg/dL (0.0-1.0); Blood Urea Nitrogen 24 mg/dL (9-16); Calcium 9.2 mg/dL (8.4-10.2); Carbon Dioxide 32 mmol/L (22-29); Chloride 101 mmol/L (96-108); Estimated Glomerular Filt Rate > 60; Glucose Random 211 mg/dL (60-115); Potassium 4.5 mmol/L (3.3-5.1); Sodium 143 mmol/L (135-145); Total Protein 6.9 g/dL (6.5-8.0)
[2024-02-16 04:48] LABS: SLIDE REVIEW VERIFIED
--- NOTE | 2024-02-16 06:27 | PC.NURSE ---
pt upset about being woken up for 0600 vitals, refused vitals to pct. this RN spoke with pt and agreeable to bp however refused temperature. vitals as documented. aware.
--- NOTE | 2024-02-16 06:33 | PC.NURSE ---
pt wanted to remove bipap/avaps mask. taken off and pt placed back on 3L NC per MD orders. Dr. Scottie Germain aware.
[2024-02-16 07:22] LABS: Estimated Average Glucose 197 mg/dL; Hemoglobin A1c % 8.5 % (<6.0)
[2024-02-16 07:57] LABS: Glucose, Whole Blood 153 mg/dL (60-115)
--- NOTE | 2024-02-16 08:26 | PC.NURSE ---
Upon evaluation of patient her IV, pt found to not have an IV. No IV noted in bed, pt reports she didn't remove anything.
[2024-02-16] MEDS: Heparin Sodium,Porcine 5,000 UNIT/ML VIAL 5000 UNIT SUBCUT (08:27)
--- NOTE | 2024-02-16 08:27 | PHA.MEDREC ---
Pharmacy Consult ? Medication Reconciliation Pharmacy has completed the medication reconciliation. [facility]
[2024-02-16] MEDS: 0.9 % Sodium Chloride Flush 3 ML SYRINGE IVFLUSH ×2 (08:28→17:07)
--- NOTE | 2024-02-16 08:30 | MHC.EDTECH ---
pt was found incontinent of stool. pt was perez cleaned, clean linen given, pt was boosted up in the bed and repositioned to left lateral. head of the bed up, call chun within reach, rn aware
--- NOTE | 2024-02-16 12:07 | MHC.CM.PN ---
CM SPOKE TO PTS /HCP, MANOLO [phone] HE CONFIRMS PT IS LTC AT [facility] PT IS BED BOUND AND USES A BIPAP AND OXYGEN PT HAS A HCP ON FILE PCP: ANJEL VIDAL DCP: RETURN TO [facility] VIA BLS
--- NOTE | 2024-02-16 12:30 | PM.EVENT ---
Event Note Date of Service: 02/16/24 Event Note: Bonnie Das is a 63 y/o woman admitted with acute on chronic hypercapnic and hypoxic respiratory failure Acute on chronic hypercapnic and hypoxic respiratory failure likely multifactorial: Obesity hypoventilatory syndrome and acute on chronic systolic congestive heart failure (BNP normal -but could be normal in obese patients). Supplemental oxygen to keep O2 sats above 90%. Continue diuretic Nocturnal BiPAP/AVAPS. Cardiology and pulmonology consults pending Acute encephalopathy likely secondary to CO2 narcosis. more awake today Fall and aspiration precautions. Acute on chronic diastolic congestive heart failure/HNOC. Continue diuretics Presumed urinary tract infection. Continue empiric IV antibiotic therapy with ceftriaxone. UC obtained -will follow results. Type 2 diabetes mellitus. Insulin sliding scale. Essential hypertension. BP is low normal. Hold antihypertensive meds. History of pacemaker implantation. Hyperlipidemia. Continue statin. Morbid obesity. BMI 49.6 kg/m2. Depression. Continue home medications. DVT prophylaxis: Heparin Code status: Full Patient will need hospitalization for at least 2 midnights for acute on chronic hypercapnic and hypoxic respiratory failure management with supplemental oxygen, noninvasive ventilation and diuretics. Patient also will need evaluation by subspecialties. Time Spent With Patient Time: Total time managing care of this patient today ____ minutes.
[2024-02-16 12:52] LABS: Glucose, Whole Blood 112 mg/dL (60-115)
--- NOTE | 2024-02-16 14:28 | PC.NURSE ---
INTRODUCED SELF TO PT. SHE APPEARS IN NAD, RESP EVEN, ORTHOPNEIC AT BASELINE, LS DIM THOUGH CLEAR THROUGHOUT. SHE IS MENTATING AT BASELINE, PER HER AT BEDSIDE. APPEARS TO HAVE AN OLD SACRAL WOUND, THAT IS CLOSED, BLANCHABLE. PT ENDORSES CHRONIC BACK AND BILAT LEG PAIN. LOW GRADE RECTAL TEMP, ALL OTHER VS WNL. REMAINS ON BASELINE SUPP 3L O2. ATE MOST OF HER LUNCH TODAY, URINE OUTPUT CURRENTLY 75CCS. REPOSITIONED TO R SIDE. AWAITING BED ASSIGNMENT.
[2024-02-16] MEDS: Acetaminophen 325 MG TABLET 975 MG PO ×2 (16:37→22:29)
[2024-02-16 21:51] LABS: Glucose, Whole Blood 253 mg/dL (60-115)
[2024-02-16] MEDS: Albuterol/Iprat 2.5/0.5MG 3 ML AMPUL.NEB INHALE (22:17)
[2024-02-16] MEDS: cefTRIAXone sodium 1 GM in 0.9 % Sodium Chloride 50 ML IV (22:26)
[2024-02-16] MEDS: metFORMIN HCl 500 MG TABLET PO (22:30)
[2024-02-16] MEDS: Atorvastatin Calcium 80 MG TABLET PO (22:30)
--- NOTE | 2024-02-16 22:46 | PC.NURSE ---
md contacted for home meds to be ordered. pt requesting to be put on avaps, RT at bedside.
[2024-02-17] VITALS (11 sets, daily range): BP systolic 116–158; BP diastolic 52–81; PULSE 66–84; RESP 18–28; TEMP 36.1–37.3; O2SAT 92–97; BMI 47.9
[2024-02-17] MEDS: Megestrol Acetate 400 MG/10 ML ORAL.SUSP PO ×4 (00:19→20:56)
[2024-02-17] MEDS: acetaZOLAMIDE 250 MG TABLET 500 MG PO ×3 (00:19→20:57)
[2024-02-17] MEDS: Sennosides 8.6 MG TABLET 17.2 MG PO ×2 (00:21→20:57)
[2024-02-17] MEDS: 0.9 % Sodium Chloride Flush 3 ML SYRINGE IVFLUSH ×4 (00:22→21:03)
[2024-02-17] MEDS: Heparin Sodium,Porcine 5,000 UNIT/ML VIAL 5000 UNIT SUBCUT ×3 (00:25→15:45)
[2024-02-17] MEDS: Albuterol/Iprat 2.5/0.5MG 3 ML AMPUL.NEB INHALE ×3 (07:41→19:55)
[2024-02-17 07:46] LABS: Glucose, Whole Blood 163 mg/dL (60-115)
[2024-02-17] MEDS: buPROPion HCl XL 300 MG TAB.ER.24H PO (08:38)
[2024-02-17] MEDS: ARIPiprazole 2 MG TABLET PO (08:39)
[2024-02-17] MEDS: metFORMIN HCl 500 MG TABLET PO ×2 (08:39→20:57)
[2024-02-17] MEDS: Insulin Lispro 100 UNIT/ML 3 ML VIAL SUBCUT ×3 (08:40→20:58)
[2024-02-17] MEDS: Sertraline HCL 100 MG TABLET 200 MG PO (08:42)
[2024-02-17] MEDS: Insulin Glargine,Hum.rec.anlog 100 UNIT/ML 10 ML VIAL 20 UNIT SUBCUT (08:42)
[2024-02-17] MEDS: Ferrous Sulfate 324 MG TABLET.DR PO (08:44)
[2024-02-17] MEDS: buPROPion HCl XL 150 MG TAB.ER.24H PO (08:44)
[2024-02-17] MEDS: Furosemide 40 MG TABLET PO (08:45)
[2024-02-17] MEDS: Cyanocobalamin (Vitamin B-12) 1,000 MCG TABLET 1000 MCG PO (08:46)
[2024-02-17] MEDS: Aspirin 81 MG TAB.CHEW PO (08:46)
[2024-02-17] MEDS: Potassium Chloride ER 10 MEQ TABLET.ER PO (08:49)
[2024-02-17] MEDS: Spironolactone 25 MG TABLET PO (08:49)
[2024-02-17] MEDS: Losartan Potassium 25 MG TABLET PO (08:49)
[2024-02-17] MEDS: Empagliflozin 25 MG TABLET PO (08:50)
[2024-02-17] MEDS: amLODIPine Besylate 5 MG TABLET PO (08:50)
[2024-02-17] MEDS: Cholecalciferol (Vitamin D3) 25 MCG TABLET PO (08:51)
[2024-02-17] MEDS: Milk of Magnesia 30 ML ORAL.SUSP PO (09:02)
[2024-02-17] MEDS: Acetaminophen 325 MG TABLET 975 MG PO (09:02)
--- NOTE | 2024-02-17 09:09 | P.CONPL_ITS ---
History of Present Illness History of Present Illness Consult date: 02/17/24 Chief complaint: Acute hypoxic and hypercapnic respiratory failure Narrative: This is an inpatient pulmonary consultation. The patient is a 63 years old woman with past medical history significant for morbid obesity, obstructive sleep apnea on AVAPS, HFpEF, HNOC, COPD -on 2-3 L/min via NC, type 2 diabetes mellitus, permanent pacemaker implantation due to sick sinus syndrome, essential hypertension, UTIs, multiple hospitalizations due to acute mental status and depression was brought to the ED by EMS from [facility] due to increasing confusion and found obtunded at 4:30 AM. She started on CPAP by EMS. Patient was placed on rescue CPAP by ED 6 pm (last night) and discontinue around 10 pm. Her mentation improved and now on 3 L/min supplemental oxygen via nasal cannula. Patient stated that she has chronic shortness of breath. Denied chest pain, palpitations, cough, fever or chills. She stated no use of sedatives or strong pain killers. Initial VBG showed pH 7.32 and PCO2 72. Most recent 1 showed pH of 7.38 and pCO2 of 64 (patient's baseline pCO2 is around 50). There are no significant electrolyte imbalances, CO2 is elevated at 34. Creatinine 0.87. Glucose is 148. Lactic acid, LFTs, BNP and troponin are normal. CXR showed mild cardiomegaly with mild pulmonary vascular congestion suspected. She was placed on BIPAP and she is now feeling better. She states that she does use the BIPAP, but lately not as much. Review of Systems 2 Constitutional: Constitutional: Reports fatigue Eyes: Eyes: Reports no additional eye complaints ENT: Reports nasal congestion Cardiovascular: Cardiovascular: Denies chest pain, Reports dyspnea and Reports dyspnea on exertion Respiratory: Respiratory: Reports cough, Reports dyspnea, Reports dyspnea on exertion and Reports wheezing Gastrointestinal: Gastrointestinal: Reports no additional gastrointestinal complaints Musculoskeletal: Musculoskeletal: Reports abnormal gait and Reports myalgias Neurologic: Reports abnormal gait Psychiatric: Psychiatric: Reports anxiety Endocrine: Endocrine: Reports fatigue Allergic/Immunologic: Allergic/Immunologic: Reports wheezing PMFSH Past Medical History Medical History (Updated 02/17/24 @ 09:14 by Manish Brooks MD) Hypoventilation associated with obesity COPD (chronic obstructive pulmonary disease) Obesity hypoventilation syndrome Diabetes mellitus Acute and chronic respiratory failure with hypercapnia Morbid obesity Pressure injury of deep tissue of buttock Sepsis Morbid obesity with BMI of 50.0-59.9, adult Acute and chronic respiratory failure Pressure ulcer, stage II, skin breakdown Hypertrophic nonobstructive cardiomyopathy Presence of permanent cardiac pacemaker Acute on chronic respiratory failure with hypoxia and hypercapnia Metabolic encephalopathy Acute and chronic respiratory failure with hypercapnia Urinary tract infection due to ESBL Klebsiella Respiratory failure Presence of permanent cardiac pacemaker Sick sinus syndrome Morbid obesity Heart block AV third degree PAD (peripheral artery disease) Diabetic ulcer of foot associated with diabetes mellitus due to underlying condition, with fat layer exposed Atelectasis of both lungs Respiratory failure with hypoxia and hypercapnia Hypoventilation associated with obesity syndrome SMIELY (obstructive sleep apnea) Morbid obesity Pulmonary embolism CHF (congestive heart failure) Clostridium difficile infection Hypertension Diabetes mellitus, type 2 Depression Arthritis Anemia Surgical History Surgical History History of total knee replacement Social History Social History Household Members: Unknown / Unable to assess Housing: Other Housing Other:: Came from STR Are you a primary spiritual care coordinator to a significant other at home: No Do you presently have visiting nurse or other home services: Yes Unable to assess alcohol history related to: Unknown Alcohol intake: never Patient Tobacco Use Status: Former Tobacco user Tobacco use type: Cigarette Cigarette Packs Per Day: 20 Cigarettes Per Day: 400.0 Years Smoked: 20 e-Cigarette/Vaping Use: Never Used Second Hand Smoke Exposure: No Substance Use Type: Unknown Advance Directives Date on File: 01/07/23 service: No Current occupational status: disabled Meds Allergies Allergy/AdvReac Type Severity Reaction Status Date / Time latex Allergy Unknown Unknown Verified 02/15/24 17:50 adhesive tape AdvReac Unknown Unknown Verified 02/15/24 17:50 bupropion [From Wellbutrin] AdvReac Unknown Unknown Verified 02/15/24 17:50 ibuprofen AdvReac Unknown Unknown Verified 02/15/24 17:50 Active Medications: Current Medications Acetaminophen (Acetaminophen 325 Mg Tablet) 975 mg PO Q6H PRN PRN Reason: mild pain, headche or fever Last Admin: 02/17/24 09:02 Dose: 975 mg Acetaminophen (Acetaminophen 325 Mg Tablet) 650 mg PO Q4H PRN PRN Reason: Fever Or Pain Acetazolamide (Acetazolamide 250 Mg Tablet) 500 mg PO BID [facility] Last Admin: 02/17/24 08:47 Dose: 500 mg Albuterol/Ipratropium (Albuterol/Iprat 2.5/0.5mg 3 Ml Ampul.Neb) 3 ml INHALE TID [facility] Last Admin: 02/17/24 07:41 Dose: 3 ml Amlodipine Besylate (Amlodipine Besylate 5 Mg Tablet) 5 mg PO DAILY [facility]; Protocol Last Admin: 02/17/24 08:50 Dose: 5 mg Aripiprazole (Aripiprazole 2 Mg Tablet) 2 mg PO DAILY [facility] Last Admin: 02/17/24 08:39 Dose: 2 mg Aspirin (Aspirin 81 Mg Tab.Chew) 81 mg PO DAILY [facility] Last Admin: 02/17/24 08:46 Dose: 81 mg Atorvastatin Calcium (Atorvastatin Calcium 80 Mg Tablet) 80 mg PO BEDTIME [facility] Last Admin: 02/16/24 22:30 Dose: 80 mg Bisacodyl (Bisacodyl 10 Mg Supp.Rect) 10 mg VA DAILY PRN PRN Reason: Constipation Bupropion HCl (Bupropion Hcl Xl 150 Mg Tab.Er.24h) 150 mg PO DAILY [facility] Last Admin: 02/17/24 08:44 Dose: 150 mg Bupropion HCl (Bupropion Hcl Xl 300 Mg Tab.Er.24h) 300 mg PO DAILY [facility] Last Admin: 02/17/24 08:38 Dose: 300 mg Cyanocobalamin (Cyanocobalamin (Vitamin B-12) 1,000 Mcg Tablet) 1,000 mcg PO DAILY [facility] Last Admin: 02/17/24 08:46 Dose: 1,000 mcg Empagliflozin (Empagliflozin 25 Mg Tablet) 25 mg PO DAILY [facility] Last Admin: 02/17/24 08:50 Dose: 25 mg Ferrous Sulfate (Ferrous Sulfate 324 Mg Tablet.Dr) 324 mg PO DAILY [facility] Last Admin: 02/17/24 08:44 Dose: 324 mg Fluticasone/Vilanterol (Fluticasone/Vilanterol 100/25 Blst.W.Dev) 1 puff INHALE RDAILY [facility] Last Admin: 02/17/24 09:04 Dose: Not Given Furosemide (Furosemide 40 Mg Tablet) 40 mg PO DAILY [facility]; Protocol Last Admin: 02/17/24 08:45 Dose: 40 mg Glucose (Glucose Gel 15 Gm Gel..Gram.) 15 gm PO Q15M PRN; Protocol PRN Reason: per Hypoglycemia Standing Ord. Glucose (Glucose Gel 15 Gm Gel..Gram.) 15 gm PO Q15M PRN; Protocol PRN Reason: per Hypoglycemia Standing Ord. Heparin Sodium (Porcine) (Heparin Sodium,Porcine 5,000 Unit/Ml Vial) 5,000 unit SUBCUT Q8H [facility] Last Admin: 02/17/24 08:52 Dose: 5,000 unit Ceftriaxone Sodium 1 gm/ (Sodium Chloride) 50 mls @ 100 mls/hr IV Q24H [facility] Last Infusion: 02/16/24 23:00 Dose: Infused Dextrose (D10) 250 mls @ 750 mls/hr IV Q15M PRN; Protocol PRN Reason: per Hypoglycemia Standing Ord. Dextrose (D10) 250 mls @ 750 mls/hr IV Q15M PRN; Protocol PRN Reason: per Hypoglycemia Standing Ord. Insulin Glargine (Insulin Glargine,Hum.Rec.Anlog 100 Unit/Ml 10 Ml Vial) 20 unit SUBCUT DAILY [facility] Last Admin: 02/17/24 08:42 Dose: 20 unit Insulin Human Lispro (Insulin Lispro 100 Unit/Ml 3 Ml Vial) 0 unit SUBCUT QIDACHS [facility]; Protocol Last Admin: 02/17/24 08:40 Dose: 2 unit Losartan Potassium (Losartan Potassium 25 Mg Tablet) 25 mg PO DAILY [facility]; Protocol Last Admin: 02/17/24 08:49 Dose: 25 mg Magnesium Hydroxide (Milk Of Magnesia 30 Ml Oral.Susp) 30 ml PO DAILY PRN PRN Reason: Constipation Last Admin: 02/17/24 09:02 Dose: 30 ml Megestrol Acetate (Megestrol Acetate 400 Mg/10 Ml Oral.Susp) 400 mg PO TID [facility] Last Admin: 02/17/24 09:01 Dose: 400 mg Melatonin (Melatonin 3 Mg Tablet) 3 mg PO BEDTIME [facility] Last Admin: 02/17/24 01:54 Dose: Not Given Metformin HCl (Metformin Hcl 500 Mg Tablet) 500 mg PO BID [facility] Last Admin: 02/17/24 08:39 Dose: 500 mg Modafinil (Modafinil 100 Mg Tablet) 100 mg PO DAILY [facility] Non-Formulary Medication (Olopatadine) 1 drop EYE-BOTH QSHIFT [facility] Polyethylene Glycol (Polyethylene Glycol 3350 17 Gm Powd.Pack) 17 gm PO DAILY PRN PRN Reason: Constipation Potassium Chloride (Potassium Chloride Er 10 Meq Tablet.Er) 10 meq PO DAILY [facility] Last Admin: 02/17/24 08:49 Dose: 10 meq Senna (Sennosides 8.6 Mg Tablet) 17.2 mg PO BEDTIME [facility] Last Admin: 02/17/24 00:21 Dose: 17.2 mg Sertraline HCl (Sertraline Hcl 100 Mg Tablet) 200 mg PO DAILY [facility] Last Admin: 02/17/24 08:42 Dose: 200 mg Sodium Biphosphate/Sodium Phosphate (Sodium Phosphate,Yates-Dibasic 133 Ml Enema) 118 ml VA DAILY PRN PRN Reason: Constipation Sodium Chloride (0.9 % Sodium Chloride Flush 3 Ml Syringe) 3 ml IVFLUSH QSHIFT [facility] Last Admin: 02/17/24 08:55 Dose: 3 ml Spironolactone (Spironolactone 25 Mg Tablet) 25 mg PO DAILY [facility]; Protocol Last Admin: 02/17/24 08:49 Dose: 25 mg Tizanidine HCl (Tizanidine Hcl 4 Mg Tablet) 4 mg PO BEDTIME PRN PRN Reason: Muscle Spasm Vitamin D (Cholecalciferol (Vitamin D3) 25 Mcg Tablet) 25 mcg PO DAILY [facility] Last Admin: 02/17/24 08:51 Dose: 25 mcg Home Medications ?Medication ?Instructions ?Recorded ?Confirmed ?Last Taken ?Type acetaminophen 325 mg tablet 650 mg PO Q4H PRN Fever Or Pain 11/18/21 02/16/24 Unknown History atorvastatin 80 mg tablet 80 mg PO BEDTIME 11/18/21 02/16/24 Unknown History ferrous sulfate 325 mg (65 mg 325 mg PO DAILY 11/18/21 02/16/24 Unknown History iron) tablet insulin lispro 100 unit/mL See Protocol subcut QIDACHS 11/18/21 02/16/24 Unknown History subcutaneous pen melatonin 3 mg tablet 3 mg PO BEDTIME 11/18/21 02/16/24 Unknown History sennosides 8.6 mg tablet (senna) 17.2 mg PO BEDTIME 11/18/21 02/16/24 Unknown History sertraline 100 mg tablet 200 mg PO DAILY 11/18/21 02/16/24 Unknown History tizanidine 4 mg tablet 4 mg PO BEDTIME PRN Muscle Spasm 11/18/21 02/16/24 Unknown History aspirin 81 mg chewable tablet 81 mg PO DAILY 01/05/22 02/16/24 Unknown History bupropion HCl 300 mg 24 hr tablet, 300 mg PO DAILY 04/09/22 02/16/24 Unknown History extended release Lactobacillus rhamnosus GG 10 1 cap PO BID 10/09/22 02/16/24 Unknown History billion cell capsule (Culturelle) bupropion HCl 150 mg 24 hr tablet, 1 tab PO DAILY 10/09/22 02/16/24 Unknown History extended release ipratropium 0.5 mg-albuterol 3 mg 3 ml inhalation TID wheezing 10/09/22 02/16/24 Unknown History (2.5 mg base)/3 mL nebulization soln potassium chloride 10 mEq 10 meq PO DAILY 10/09/22 02/16/24 Unknown History tablet,extended release bisacodyl 10 mg rectal suppository 10 mg VA DAILY PRN Constipation 10/21/22 02/16/24 Unknown History sodium phosphates 19 gram-7 118 ml VA DAILY PRN Constipation 11/09/22 02/16/24 Unknown History gram/118 mL enema (Fleet Enema) metformin 500 mg tablet 500 mg PO BID 12/27/22 02/16/24 Unknown History semaglutide 0.25 mg or 0.5 mg (2 0.5 mg subcut WE 12/27/22 02/16/24 Unknown History mg/3 mL) subcutaneous pen injector (Ozempic) cholecalciferol (vitamin D3) 25 25 mcg PO DAILY 04/04/23 02/16/24 Unknown History mcg (1,000 unit) tablet insulin glargine 100 unit/mL 25 unit subcut DAILY 04/04/23 02/16/24 Unknown History subcutaneous solution (Lantus U-100 Insulin) losartan 25 mg tablet 25 mg PO DAILY 04/04/23 02/16/24 Unknown History megestrol 400 mg/10 mL (40 mg/mL) 400 mg PO TID 04/04/23 02/16/24 Unknown History oral suspension olopatadine 0.2 % eye drops 1 drp ophthalmic (eye) QSHIFT 04/04/23 02/16/24 Unknown History cyanocobalamin (vitamin B-12) 1,000 mcg PO DAILY 04/21/23 02/16/24 Unknown History 1,000 mcg capsule magnesium hydroxide 400 mg/5 mL 30 ml PO DAILY PRN Constipation 10/02/23 02/16/24 Unknown History oral suspension (Milk of Magnesia) aripiprazole 2 mg tablet 2 mg PO DAILY 10/28/23 02/16/24 Unknown History empagliflozin 25 mg tablet 25 mg PO DAILY 02/16/24 02/16/24 Unknown History (Jardiance) fluticasone 113 mcg-salmeterol 14 1 inh inhalation DAILY 02/16/24 02/16/24 Unknown History mcg/actuation breath activated powdr magnesium citrate 300 ml PO DAILY PRN Constipation 02/16/24 02/16/24 Unknown History polyethylene glycol 3350 17 17 g PO DAILY PRN Constipation 02/16/24 02/16/24 Unknown History gram/dose oral powder (Miralax) Physical Exam 2 Vital Signs: Vital Signs: Last Vital Signs Temp 97.0 F 02/17/24 07:36 Pulse 75 02/17/24 07:43 Resp 23 H 02/17/24 07:43 BP 129/81 02/17/24 07:36 Pulse Ox 94 02/17/24 07:36 O2 Del Method BiPAP 02/17/24 07:36 O2 Flow Rate 3 02/17/24 04:00 BMI result Body Mass Index 47.9 Const: General: comfortable and tired appearing Nutritional Appearance: o bese Orientation/consciousness: patient oriented x3 HEENT: Head: Yes normocephalic Neck: Neck: Yes supple Chest: Chest palpation & inspection: normal inspection of the chest Resp: Effort & Inspection: normal respiratory effort and prolonged expiratory phase Auscultation: diminished lung sounds Cardio: Heart sounds: S1 normal heart sound present and S2 normal heart sound present GI: Inspection: Yes obesity Palpation (GI): Soft to palpation Skin: General skin exam: no rashes or lesions noted Neuro: General: patient oriented x3 Extrem: General: No cyanosis Results Laboratory Findings 02/16/24 04:26 02/16/24 04:26 ABG, PT/INR, D-dimer: PT/INR, D-dimer PT 11.3 SEC (11.1-13.3) 02/15/24 17:59 INR 0.9 (0.9-1.1) 02/15/24 17:59 Abnormal lab findings: Abnormal Labs 02/15/24 02/15/2424 17:59 18:02 18:48 RBC 4.14 L MCV 100.5 H MCHC 29.3 L Neut % (Auto) Lymph % (Auto) 17.7 L Yates % (Auto) Lymph # (Auto) Absolute Nucleated RBC 0.020 H VBG HCO3 37 H Carbon Dioxide 34 H BUN 19 H POC Glucose Random Glucose 148 H Hemoglobin A1c % Urine Glucose (UA) >=1000 H Urine Nitrite Positive H Ur Leukocyte Esterase Trace H Urine WBC 11-20 H 02/15/24 02/16/24 02/16/24 21:39 02:11 04:26 RBC 4.09 L MCV MCHC 30.3 L Neut % (Auto) 90.1 H Lymph % (Auto) 8.5 L Yates % (Auto) 0.9 L Lymph # (Auto) 0.6 L Absolute Nucleated RBC VBG HCO3 39 H 34 H Carbon Dioxide 32 H BUN 24 H POC Glucose 193 H Random Glucose 211 H Hemoglobin A1c % 8.5 H Urine Glucose (UA) Urine Nitrite Ur Leukocyte Esterase Urine WBC 02/16/24 02/16/24 02/17/24 07:52 21:47 07:43 RBC MCV MCHC Neut % (Auto) Lymph % (Auto) Yates % (Auto) Lymph # (Auto) Absolute Nucleated RBC VBG HCO3 Carbon Dioxide BUN POC Glucose 153 H 253 H 163 H Random Glucose Hemoglobin A1c % Urine Glucose (UA) Urine Nitrite Ur Leukocyte Esterase Urine WBC Microbiology: Microbiology 02/15/24 18:48 Urine Catheterized - Straight Catheter Urine Culture - Final 02/15/24 18:07 Blood - Venous Blood Culture - Preliminary No growth after 24 hours. 02/15/24 17:59 Blood - Venous Blood Culture - Preliminary No growth after 24 hours. Assessment and Plan (1) Acute exacerbation of chronic obstructive airways disease: Status: Acute (2) Obesity hypoventilation syndrome: Status: Acute (3) COPD (chronic obstructive pulmonary disease): Qualifiers: COPD type: COPD with acute exacerbation Qualified Code(s): J44.1 - Chronic obstructive pulmonary disease with (acute) exacerbation Status: Acute Plan continue respiratory therapy BIPAP at night oxygen supplementation to keep pox 89-95% prednisone taper start Modafinil Procedures Date of Service Date of Service: 02/17/24
[2024-02-17] MEDS: modafiniL 100 MG TABLET PO (09:17)
[2024-02-17 11:41] LABS: Glucose, Whole Blood 129 mg/dL (60-115)
[2024-02-17] MEDS: Magnesium Hydrox/Alum Hydrox 30 ML ORAL.SUSP PO (12:28)
--- NOTE | 2024-02-17 14:50 | HO.PM.IMPN ---
Subjective Subjective Date of Service: 02/17/24 Review of Systems Follow up resp failure feeling better today Physical Exam Vital Signs: Vital Signs: Last Vital Signs Temp 97.1 F 02/17/24 11:22 Pulse 68 02/17/24 11:22 Resp 20 02/17/24 11:22 BP 158/81 H 02/17/24 11:22 Pulse Ox 97 02/17/24 11:22 O2 Del Method Nasal Cannula 02/17/24 11:22 O2 Flow Rate 2.5 02/17/24 11:22 BMI result Body Mass Index 47.9 Objective Data Active Medications Acetaminophen (Acetaminophen 325 Mg Tablet) 650 mg PO Q4H PRN PRN Reason: Fever Or Pain Acetazolamide (Acetazolamide 250 Mg Tablet) 500 mg PO BID [facility] Last Admin: 02/17/24 08:47 Dose: 500 mg Documented By: MARLYS Al Hydroxide/Mg Hydroxide (Magnesium Hydrox/Alum Hydrox 30 Ml Oral.Susp) 30 ml PO Q4H PRN PRN Reason: Heartburn Last Admin: 02/17/24 12:28 Dose: 30 ml Documented By: MARLYS Albuterol/Ipratropium (Albuterol/Iprat 2.5/0.5mg 3 Ml Ampul.Neb) 3 ml INHALE TID [facility] Last Admin: 02/17/24 07:41 Dose: 3 ml Documented By: GAURANG Amlodipine Besylate (Amlodipine Besylate 5 Mg Tablet) 5 mg PO DAILY [facility]; Protocol Last Admin: 02/17/24 08:50 Dose: 5 mg Documented By: MARLYS Aripiprazole (Aripiprazole 2 Mg Tablet) 2 mg PO DAILY [facility] Last Admin: 02/17/24 08:39 Dose: 2 mg Documented By: MARLYS Aspirin (Aspirin 81 Mg Tab.Chew) 81 mg PO DAILY [facility] Last Admin: 02/17/24 08:46 Dose: 81 mg Documented By: MARLYS Atorvastatin Calcium (Atorvastatin Calcium 80 Mg Tablet) 80 mg PO BEDTIME [facility] Last Admin: 02/16/24 22:30 Dose: 80 mg Documented By: LUCAS Bisacodyl (Bisacodyl 10 Mg Supp.Rect) 10 mg [place] DAILY PRN PRN Reason: Constipation Bupropion HCl (Bupropion Hcl Xl 150 Mg Tab.Er.24h) 150 mg PO DAILY [facility] Last Admin: 02/17/24 08:44 Dose: 150 mg Documented By: MARLYS Bupropion HCl (Bupropion Hcl Xl 300 Mg Tab.Er.24h) 300 mg PO DAILY [facility] Last Admin: 02/17/24 08:38 Dose: 300 mg Documented By: MARLYS Cyanocobalamin (Cyanocobalamin (Vitamin B-12) 1,000 Mcg Tablet) 1,000 mcg PO DAILY [facility] Last Admin: 02/17/24 08:46 Dose: 1,000 mcg Documented By: MARLYS Empagliflozin (Empagliflozin 25 Mg Tablet) 25 mg PO DAILY [facility] Last Admin: 02/17/24 08:50 Dose: 25 mg Documented By: MARLYS Ferrous Sulfate (Ferrous Sulfate 324 Mg Tablet.Dr) 324 mg PO DAILY [facility] Last Admin: 02/17/24 08:44 Dose: 324 mg Documented By: MARLYS Fluticasone/Vilanterol (Fluticasone/Vilanterol 100/25 Blst.W.Dev) 1 puff INHALE RDAILY [facility] Last Admin: 02/17/24 09:04 Dose: Not Given Documented By: GAURANG Non-Admin Reason: Med Not Available Furosemide (Furosemide 40 Mg Tablet) 40 mg PO DAILY [facility]; Protocol Last Admin: 02/17/24 08:45 Dose: 40 mg Documented By: MARLYS Glucose (Glucose Gel 15 Gm Gel..Gram.) 15 gm PO Q15M PRN; Protocol PRN Reason: per Hypoglycemia Standing Ord. Glucose (Glucose Gel 15 Gm Gel..Gram.) 15 gm PO Q15M PRN; Protocol PRN Reason: per Hypoglycemia Standing Ord. Heparin Sodium (Porcine) (Heparin Sodium,Porcine 5,000 Unit/Ml Vial) 5,000 unit SUBCUT Q8H [facility] Last Admin: 02/17/24 08:52 Dose: 5,000 unit Documented By: MARLYS Ceftriaxone Sodium 1 gm/ (Sodium Chloride) 50 mls @ 100 mls/hr IV Q24H [facility] Last Infusion: 02/16/24 23:00 Dose: Infused Documented By: SERRANX Dextrose (D10) 250 mls @ 750 mls/hr IV Q15M PRN; Protocol PRN Reason: per Hypoglycemia Standing Ord. Dextrose (D10) 250 mls @ 750 mls/hr IV Q15M PRN; Protocol PRN Reason: per Hypoglycemia Standing Ord. Insulin Glargine (Insulin Glargine,Hum.Rec.Anlog 100 Unit/Ml 10 Ml Vial) 20 unit SUBCUT DAILY [facility] Last Admin: 02/17/24 08:42 Dose: 20 unit Documented By: MARLYS Insulin Human Lispro (Insulin Lispro 100 Unit/Ml 3 Ml Vial) 0 unit SUBCUT QIDACHS [facility]; Protocol Last Admin: 02/17/24 12:05 Dose: Not Given Documented By: MARLYS Non-Admin Reason: No Insulin Coverage Losartan Potassium (Losartan Potassium 25 Mg Tablet) 25 mg PO DAILY [facility]; Protocol Last Admin: 02/17/24 08:49 Dose: 25 mg Documented By: MARLYS Magnesium Hydroxide (Milk Of Magnesia 30 Ml Oral.Susp) 30 ml PO DAILY PRN PRN Reason: Constipation Last Admin: 02/17/24 09:02 Dose: 30 ml Documented By: MARLYS Megestrol Acetate (Megestrol Acetate 400 Mg/10 Ml Oral.Susp) 400 mg PO TID [facility] Last Admin: 02/17/24 09:01 Dose: 400 mg Documented By: MARLYS Melatonin (Melatonin 3 Mg Tablet) 3 mg PO BEDTIME [facility] Last Admin: 02/17/24 01:54 Dose: Not Given Documented By: KLEBER Non-Admin Reason: Patient Refused Metformin HCl (Metformin Hcl 500 Mg Tablet) 500 mg PO BID [facility] Last Admin: 02/17/24 08:39 Dose: 500 mg Documented By: MARLYS Modafinil (Modafinil 100 Mg Tablet) 100 mg PO DAILY [facility] Last Admin: 02/17/24 09:17 Dose: 100 mg Documented By: MARLYS Non-Formulary Medication (Olopatadine) [facility] Polyethylene Glycol (Polyethylene Glycol 3350 17 Gm Powd.Pack) 17 gm PO DAILY PRN PRN Reason: Constipation Potassium Chloride (Potassium Chloride Er 10 Meq Tablet.Er) 10 meq PO DAILY [facility] Last Admin: 02/17/24 08:49 Dose: 10 meq Documented By: MARLYS Senna (Sennosides 8.6 Mg Tablet) 17.2 mg PO BEDTIME [facility] Last Admin: 02/17/24 00:21 Dose: 17.2 mg Documented By: MATTHIAS Sertraline HCl (Sertraline Hcl 100 Mg Tablet) 200 mg PO DAILY [facility] Last Admin: 02/17/24 08:42 Dose: 200 mg Documented By: MARLYS Sodium Biphosphate/Sodium Phosphate (Sodium Phosphate,[place]-Dibasic 133 Ml Enema) 118 ml [place] DAILY PRN PRN Reason: Constipation Sodium Chloride (0.9 % Sodium Chloride Flush 3 Ml Syringe) 3 ml IVFLUSH QSHIFT [facility] Last Admin: 02/17/24 08:55 Dose: 3 ml Documented By: MARLYS Spironolactone (Spironolactone 25 Mg Tablet) 25 mg PO DAILY [facility]; Protocol Last Admin: 02/17/24 08:49 Dose: 25 mg Documented By: MARLYS Tizanidine HCl (Tizanidine Hcl 4 Mg Tablet) 4 mg PO BEDTIME PRN PRN Reason: Muscle Spasm Vitamin D (Cholecalciferol (Vitamin D3) 25 Mcg Tablet) 25 mcg PO DAILY [facility] Last Admin: 02/17/24 08:51 Dose: 25 mcg Documented By: MARLYS Labs 02/16/24 04:26 02/16/24 04:26 Labs: Laboratory Results - last 24 hr 02/16/24 02/17/24 02/17/24 21:47 07:43 11:34 POC Glucose 253 H 163 H 129 H Microbiology Microbiology Results: Microbiology 02/15/24 18:48 Urine Culture - Final Urine Catheterized - Straight Catheter 02/15/24 18:07 Blood Culture - Preliminary Blood - Venous No growth after 24 hours. 02/15/24 17:59 Blood Culture - Preliminary Blood - Venous No growth after 24 hours. Assessment and Plan (1) COPD (chronic obstructive pulmonary disease): Status: Acute (2) Obesity hypoventilation syndrome: Status: Acute Plan Bonnie Das is a 63 y/o woman admitted with acute on chronic hypercapnic and hypoxic respiratory failure Acute on chronic hypercapnic and hypoxic respiratory failure likely multifactorial: Obesity hypoventilatory syndrome and acute on chronic systolic congestive heart failure (BNP normal -but could be normal in obese patients). Supplemental oxygen to keep O2 sats above 90%. Continue diuretic Nocturnal BiPAP/AVAPS. pulmonology consults> start provigil, continue current tx Acute encephalopathy likely secondary to CO2 narcosis. more awake today Fall and aspiration precautions. Acute on chronic diastolic congestive heart failure Continue diuretics Presumed urinary tract infection. Continue empiric IV antibiotic therapy with ceftriaxone. UC obtained -will follow results. Type 2 diabetes mellitus. Insulin sliding scale. Essential hypertension. BP is low normal. Hold antihypertensive meds. History of pacemaker implantation. Hyperlipidemia. Continue statin. Morbid obesity. BMI 47.9 kg/m2. Depression. Continue home medications. DVT prophylaxis: Heparin Attending Dr. Bernard Code status: Full Continue hospital stay for acute on chronic hypercapnic and hypoxic respiratory failure management with supplemental oxygen, noninvasive ventilation and diuretics. Patient also will need evaluation by subspecialties. Quality Stroke Does the patient have a stroke diagnosis?: No VTE Prior VTE?: No VTE Risk Level:: Medical - moderate - high VTE Device Contraindication: Treatment Not Indicated VTE Drug Contraindication: N/A - Med Ordered
[2024-02-17] MEDS: Acetaminophen 325 MG TABLET 650 MG PO (15:42)
--- NOTE | 2024-02-17 16:16 | HO.WOUND ---
Wound Consult: Initial 63yr old? Female admitted to [facility] on 02/16/24 01:26 - See progress notes and H&P for detailed history.? Wound consult placed for Buttock.? Patient agreeable to assessment and photo documentation.? Patient reports she has had wounds to her buttock for several weeks now - she reports they use creams at the facility where she lives. She is not able to recall the creams that are in use. Buttock, posterior thigh and perineal area Etiology: ?MASD (Moisture Associated Skin Damage) Wound Bed: red purple blanchable tissue with scattered areas of partial thickness tissue loss Drainage / Odor: None noted Edges: ? irregular Miryam wound: ? Intact - No Induration, Fluctuance or Warmth noted Pain: patient reports pain Goals of Treatment: ? Triad to allow for moist wound healing and to protect from moisture and friction Recommendations: 1. Turn and Reposition every 2 hours and as needed for patient comfort.? Use pillows or wedges to support off loading positions. 2. Off Load all bony prominences with use of pillows and heel boots if needed.? Apply Preventative foams where needed. ? 3. Monitor for incontinence and moisture control, use barrier creams when needed for prevention and treatment. 4. Provide adequate and supplemental nutrition.? 5. Order or Continue low air loss mattress. Bariatric bed. 6. When applicable maintain blood glucose levels per Providers order. 7. Buttock - Off Load Pressure - Cleanse with PH balance spray or wipes, pat dry. ?Apply thin layer of Triad to wound bed - only pat and dab no scrub and rub when soiling occurs. Reapply thin layer PRN after each episode of incontinence. Re-consult wound care Nurse for wound deterioration or wound changes.
[2024-02-17 16:20] LABS: Glucose, Whole Blood 201 mg/dL (60-115)
[2024-02-17 20:22] LABS: Glucose, Whole Blood 205 mg/dL (60-115)
[2024-02-17] MEDS: Melatonin 3 MG TABLET PO (20:57)
[2024-02-17] MEDS: Atorvastatin Calcium 80 MG TABLET PO (20:58)
[2024-02-17] MEDS: cefTRIAXone sodium 1 GM in 0.9 % Sodium Chloride 50 ML IV (21:00)
[2024-02-18] VITALS (9 sets, daily range): BP systolic 117–128; BP diastolic 56–64; PULSE 64–80; RESP 16–20; TEMP 36.1–36.6; O2SAT 88–95
[2024-02-18] MEDS: Heparin Sodium,Porcine 5,000 UNIT/ML VIAL 5000 UNIT SUBCUT ×2 (01:47→08:27)
[2024-02-18 07:12] LABS: Glucose, Whole Blood 111 mg/dL (60-115)
[2024-02-18] MEDS: Albuterol/Iprat 2.5/0.5MG 3 ML AMPUL.NEB INHALE (07:40)
[2024-02-18] MEDS: Fluticasone/Vilanterol 100/25 BLST.W.DEV 1 PUFF INHALE (07:57)
[2024-02-18] MEDS: modafiniL 100 MG TABLET PO (08:28)
[2024-02-18] MEDS: Losartan Potassium 25 MG TABLET PO (08:28)
[2024-02-18] MEDS: Sertraline HCL 100 MG TABLET 200 MG PO (08:28)
[2024-02-18] MEDS: buPROPion HCl XL 300 MG TAB.ER.24H PO (08:28)
[2024-02-18] MEDS: amLODIPine Besylate 5 MG TABLET PO (08:29)
[2024-02-18] MEDS: Furosemide 40 MG TABLET PO (08:29)
[2024-02-18] MEDS: Aspirin 81 MG TAB.CHEW PO (08:29)
[2024-02-18] MEDS: ARIPiprazole 2 MG TABLET PO (08:29)
[2024-02-18] MEDS: Ferrous Sulfate 324 MG TABLET.DR PO (08:29)
[2024-02-18] MEDS: Cyanocobalamin (Vitamin B-12) 1,000 MCG TABLET 1000 MCG PO (08:30)
[2024-02-18] MEDS: buPROPion HCl XL 150 MG TAB.ER.24H PO (08:30)
[2024-02-18] MEDS: Insulin Glargine,Hum.rec.anlog 100 UNIT/ML 10 ML VIAL 20 UNIT SUBCUT (08:30)
[2024-02-18] MEDS: Empagliflozin 25 MG TABLET PO (08:30)
[2024-02-18] MEDS: acetaZOLAMIDE 250 MG TABLET 500 MG PO (08:30)
[2024-02-18] MEDS: Cholecalciferol (Vitamin D3) 25 MCG TABLET PO (08:30)
[2024-02-18] MEDS: Spironolactone 25 MG TABLET PO (08:30)
[2024-02-18] MEDS: Potassium Chloride ER 10 MEQ TABLET.ER PO (08:30)
[2024-02-18] MEDS: metFORMIN HCl 500 MG TABLET PO (08:30)
[2024-02-18] MEDS: 0.9 % Sodium Chloride Flush 3 ML SYRINGE IVFLUSH (08:35)
--- NOTE | 2024-02-18 09:05 | MHC.CM.PN ---
Second IMM given 02/17. Pt is medically cleared for discharge back to [facility] today via BLS/[facility]ul[facility] at 12pm. Pt aware and in agreement with discharge plan.
--- NOTE | 2024-02-18 09:24 | PM.DS ---
DS: Providers Provider Date of Service: 02/18/24 Date of admission: 02/16/24 01:26 Primary care physician: Tita Bal MD Consults: 02/16/24 07:00 Consult to Pulmonology Routine Consulting Provider: [facility] Reason for consultation: Hypercapnic respiratory failure Has provider been notified: No 02/17/24 09:56 Consult to Wound Care Routine Reason for consultation: maceration/wound to coccyx and groin DS: Diagnosis Discharge Diagnosis (1) COPD (chronic obstructive pulmonary disease): Status: Acute (2) Obesity hypoventilation syndrome: Status: Acute DS: Summary Hospital Course Hospital Course: History and physical as per admitting provider. Bonnie Das is a 63 years old woman with past medical history significant for morbid obesity, obstructive sleep apnea on AVAPS, HFpEF, HNOC, COPD -on 2-3 L/min via NC, type 2 diabetes mellitus, permanent pacemaker implantation due to sick sinus syndrome, essential hypertension, UTIs, multiple hospitalizations due to acute mental status and depression was brought to the ED by EMS from [facility] due to increasing confusion and found obtunded at 4:30 AM. She started on CPAP by EMS. Patient was placed on rescue CPAP by ED 6 pm (last night) and discontinue around 10 pm. Her mentation improved and now on 3 L/min supplemental oxygen via nasal cannula. Patient stated that she has chronic shortness of breath. Denied chest pain, palpitations, cough, fever or chills. She stated no use of sedatives or strong pain killers. In the ED, she was found to have low normal blood pressure and tachypnea. Blood pressure is 96/40. There is no tachycardia. Blood workup showed no leukocytosis, anemia or thrombocytopenia. INR is normal. Initial blood gas show a. Initial VBG showed pH 7.32 and PCO2 72. Most recent 1 showed pH of 7.38 and pCO2 of 64 (patient's baseline pCO2 is around 50). There are no significant electrolyte imbalances, CO2 is elevated at 34. Creatinine 0.87. Glucose is 148. Lactic acid, LFTs, BNP and troponin are normal. CXR showed mild cardiomegaly with mild pulmonary vascular congestion suspected. ED tx: Ceftriaxone 1 g IV, acetaminophen 650 mg p.o., Solu-Medrol 125 mg IV, albuterol nebs. 63-year-old woman treated for acute on chronic hypercapnic and hypoxic respiratory failure secondary to obesity hypoventilatory syndrome and acute on chronic diastolic congestive heart failure. Patient treated with supplemental oxygen, IV Lasix, BiPAP at bedtime. Seen evaluated by pulmonology recommended starting Provigil. She did have some acute encephalopathy likely secondary to CO2 narcosis however she has been more awake and aware throughout the hospitalization. Initially was thought that she had a urinary tract infection she was treated with IV ceftriaxone but urine culture came back negative so antibiotics have been stopped. Continue spironolactone, Lasix. Continue home inhalers. Plan is for patient to return back to long-term care facility, she is in agreement with this. Diabetes mellitus type 2. Continue home medications Hypertension. Continue amlodipine, losartan Hyperlipidemia. Continue statin Morbid obesity. BMI 47.9. Discussed importance of weight management as this may be contributing to worsening of other comorbidities Depression. Continue Abilify, bupropion, Zoloft Time Attestation Discharge Coordination Time (in mins): 40 Quality: Safe Use of Opioids Does Pt have an Active Cancer Diagnosis on the Problem List?: No Quality: Stroke Does the patient have a stroke diagnosis?: No Physical Exam Vital Signs: Vital Signs: Last Vital Signs Temp 97.9 F 02/18/24 07:50 Pulse 67 02/18/24 07:50 Resp 20 02/18/24 07:50 BP 128/59 L 02/18/24 08:30 Pulse Ox 92 02/18/24 07:50 O2 Del Method Nasal Cannula 02/18/24 07:50 O2 Flow Rate 2 02/18/24 07:50 BMI result Body Mass Index 47.9 Appearing in no acute distress head is normocephalic atraumatic eyes pupils are PERRLA sclera is anicteric mouth throat mucous membranes are intact and moist neck is supple no lymphadenopathy, no JVD noted lung sounds are clear to auscultation heart regular rate rhythm, clear S1, S2 positive bowel sounds, abdomen is soft, nontender neuro patient is alert x3, no focal deficits DS: Data Data Completed and Pending Completed studies during hospitalization [Text1]: Procedures Assistance with Respiratory Ventilation, Less than 24 Consecutive Hours, Continuous Positive Airway Pressure (10/28/23) Insertion of Endotracheal Airway into Trachea, Via Natural or Artificial Opening (11/18/21) Insertion of Infusion Device into Superior Vena Cava, Percutaneous Approach (11/18/21) Introduction of Vasopressor into Peripheral Vein, Percutaneous Approach (11/18/21) Respiratory Ventilation, 24-96 Consecutive Hours (11/18/21) Ultrasonography of Superior Vena Cava, Guidance (11/18/21) Labs on day of discharge: Laboratory Results - last 24 hr 02/17/24 02/17/24 02/17/24 11:34 16:13 20:16 POC Glucose 129 H 201 H 205 H 02/18/24 07:06 POC Glucose 111 Preliminary micro results at discharge 02/15/24 18:07 Blood Culture - Preliminary Blood - Venous No growth after 48 hours. 02/15/24 17:59 Blood Culture - Preliminary Blood - Venous No growth after 48 hours. Discharge Plan Discharge Anticipated Discharge Date/Time: 02/18/24 09:07 Patient Disposition: [facility] Discharge Diagnosis: Acute on chronic hypercapnic hypoxic respiratory failure Obesity hypoventilation syndrome Acute on chronic diastolic congestive heart failure UTI Referrals: [facility] [Outside] - 1 Week Tita Bal MD [Primary Care Provider] - 1 Week Discharge Medications: New modafinil [Provigil] 100 mg Tablet 100 mg PO DAILY Qty: 30 0RF Continued furosemide 40 mg Tablet 40 mg PO DAILY Qty: 30 0RF Protocol: Hold for SBP< HOLD for SBP < : 90 ipratropium-albuterol 0.5 mg-3 mg(2.5 mg base)/3 mL Solution For Nebulization 3 ml INHALATION TID potassium chloride 10 mEq Tablet Extended Release 10 meq PO DAILY Hold Instructions: Recheck K level in 1 week to decide if needed or not. Culturelle 10 billion cell Capsule 1 cap PO BID bupropion HCl 150 mg tablet extended release 24 hr 1 tab PO DAILY Rx Instructions: take with 300mg; tdd 450mg Fleet Enema 19-7 gram/118 mL Enema 118 ml HI DAILY PRN (Reason: Constipation) Rx Instructions: (STEP 3) IF NO BOWEL MOVEMENT 8 HOURS AFTER BISACODYL atorvastatin 80 mg Tablet 80 mg PO BEDTIME sennosides [senna] 8.6 mg Tablet 17.2 mg PO BEDTIME acetaminophen 325 mg Tablet 650 mg PO Q4H PRN (Reason: Fever Or Pain) tizanidine 4 mg Tablet 4 mg PO BEDTIME PRN (Reason: Muscle Spasm) sertraline 100 mg Tablet 200 mg PO DAILY melatonin 3 mg Tablet 3 mg PO BEDTIME ferrous sulfate 325 mg (65 mg iron) Tablet 325 mg PO DAILY insulin lispro 100 unit/mL Insulin Pen See Protocol SUBCUT QIDACHS Protocol: Insulin Correction Scale Less than or equal to 110 ---- Give (units): 0 111 to 150 Give (units): 0 151 to 200 Give (units): 0 201 to 250 Give (units): 4 251 to 300 Give (units): 6 301 to 350 Give (units): 8 Greater than 350 Give (units): 10 Call MD if Blood Glucose > : 350 Rx Instructions: SLIDING SCALE IF BLOOD GLUCOSE GREATER THAN 400, GIVE 12 UNITS AND NOTIFY MD amlodipine 5 mg Tablet 5 mg PO DAILY 30 Days Qty: 30 0RF Protocol: Hold for SBP< HOLD for SBP < : 90 aspirin 81 mg Tablet,Chewable 81 mg PO DAILY acetazolamide 250 mg Tablet 500 mg PO BID Qty: 60 0RF losartan 25 mg tablet 25 mg PO DAILY cholecalciferol (vitamin D3) 25 mcg (1,000 unit) Tablet 25 mcg PO DAILY olopatadine 0.2 % Drops 1 drp OPHTHALMIC (EYE) QSHIFT Rx Instructions: both eyes megestrol 400 mg/10 mL (40 mg/mL) suspension 400 mg PO TID insulin glargine [Lantus U-100 Insulin] 100 unit/mL solution 25 unit subcut DAILY metformin 500 mg tablet 500 mg PO BID Ozempic 0.25 mg or 0.5 mg (2 mg/3 mL) pen injector 0.5 mg subcut WE magnesium hydroxide [Milk of Magnesia] 400 mg/5 mL Suspension 30 ml PO DAILY PRN (Reason: Constipation) aripiprazole 2 mg tablet 2 mg PO DAILY spironolactone 25 mg Tablet 25 mg PO DAILY Qty: 30 0RF Protocol: Hold for SBP< HOLD for SBP < : 90 magnesium citrate Solution 300 ml PO DAILY PRN (Reason: Constipation) polyethylene glycol 3350 [Miralax] 17 gram/dose Powder 17 g PO DAILY PRN (Reason: Constipation) Jardiance 25 mg tablet 25 mg PO DAILY fluticasone propion-salmeterol 113-14 mcg/actuation aerosol powdr breath activated 1 inh inhalation DAILY bisacodyl 10 mg suppository 10 mg HI DAILY PRN (Reason: Constipation) Rx Instructions: GIVE IF NO RESULT FROM MILK OF MAGNASHLEY cyanocobalamin (vitamin B-12) 1,000 mcg capsule 1,000 mcg PO DAILY bupropion HCl 300 mg tablet extended release 24 hr 300 mg PO DAILY Rx Instructions: take with 150mg dose; tdd 450mg Discharge Orders: Discharge Order (Routine); Ordered 02/18/24 Ordered By: Belinda Brooks Diet: Advance to usual diet Activity on Discharge: As tolerated Stand Alone Forms: Patient Portal Discharge page Print Language: Romansh Care Plan Goals: You were started on a new medication called Provigil. Take as prescribed Health Concerns: Acute on chronic hypercapnic hypoxic respiratory failure Obesity hypoventilation syndrome Acute on chronic diastolic congestive heart failure UTI Plan of Treatment: Follow-up with primary care provider as needed Take all medications as prescribed Assessment: See discharge summary Discharge Date/Time: 02/18/24 14:12
[2024-02-18 11:02] LABS: Glucose, Whole Blood 162 mg/dL (60-115)
[2024-02-18] MEDS: Insulin Lispro 100 UNIT/ML 3 ML VIAL SUBCUT (11:07)
== END 2024-02-18 14:12 | DRG 291 ==
LOC: HO.ED 23:37 → HO.EDOVER 02-16 01:45 → HO.IMC 02-16 23:22
PROVIDERS: Admitting Provider Internal Medicine; Emergency Provider Emergency Medicine; PCP Internal Medicine; Visit Provider Nurse Practitioner Acute Care
DX: I11.0 Hypertensive heart disease with heart failure (principal); I50.33 Acute on chronic diastolic (congestive) heart failure; J96.21 Acute and chronic respiratory failure with hypoxia; J96.22 Acute and chronic respiratory failure with hypercapnia; J44.1 Chronic obstructive pulmonary disease with (acute) exacerbation; E66.2 Morbid (severe) obesity with alveolar hypoventilation; Z68.42 Body mass index [BMI] 45.0-49.9, adult; G93.49 Other encephalopathy; F32.A Depression, unspecified; I49.5 Sick sinus syndrome; Z20.822 Contact with and (suspected) exposure to COVID-19; Z87.891 Personal history of nicotine dependence; Z95.0 Presence of cardiac pacemaker; Z91.040 Latex allergy status; Z79.82 Long term (current) use of aspirin; Z79.4 Long term (current) use of insulin; Z79.84 Long term (current) use of oral hypoglycemic drugs; Z79.899 Other long term (current) drug therapy
CPT/HCPCS: 36415; 71045; 80048; 80053; 80076; 80307; 81001; 81003; 82803; 82947; 83036; 83605; 83735; 83880; 84484; 85025; 85610; 87040; 87086; 87502; 87635; 93005; 94640; 94660; 99285; C1758; J0696; J1644; J2919

== ENCOUNTER → 2024-02-15 17:39 | Outpatient (BNV) | payer OTHER, MEDICAID, SELFPAY | PROVIDERS: Admitting Provider Internal Medicine; Emergency Provider Emergency Medicine; PCP Internal Medicine; Visit Provider Internal Medicine Cardiovascular Disease | DX: J96.01 Acute respiratory failure with hypoxia (principal); R94.31 Abnormal electrocardiogram [ECG] [EKG] | CPT/HCPCS: 93010 ==

== ENCOUNTER → 2024-02-16 01:26 | Outpatient (BNV) | payer OTHER, SELFPAY | PROVIDERS: Admitting Provider Internal Medicine; Emergency Provider Emergency Medicine; Visit Provider Internal Medicine | DX: J44.1 Chronic obstructive pulmonary disease with (acute) exacerbation (principal); E66.2 Morbid (severe) obesity with alveolar hypoventilation | CPT/HCPCS: 99223; 99232; 99239; 99499 ==

== ENCOUNTER → 2024-02-16 01:26 | Outpatient (BNV) | payer OTHER, MEDICAID, SELFPAY | PROVIDERS: Admitting Provider Internal Medicine; Emergency Provider Emergency Medicine; PCP Internal Medicine; Visit Provider Hospitalist | DX: J44.1 Chronic obstructive pulmonary disease with (acute) exacerbation (principal); E66.2 Morbid (severe) obesity with alveolar hypoventilation | CPT/HCPCS: 99223 ==

== ENCOUNTER 2024-03-25 10:48 | Inpatient (IN) | payer MEDICARE, SELFPAY ==
[2024-03-25] VITALS (14 sets, daily range): BP systolic 105–154; BP diastolic 37–85; PULSE 68–90; RESP 16–23; TEMP 36.6–37.7; O2SAT 90–94; BMI 40.2
--- NOTE | 2024-03-25 | ECG_ITS ---
Test Reason : UNRESPONSIVE Blood Pressure : / mmHG Vent. Rate : 076 BPM Atrial Rate : 076 BPM P-R Int : 160 ms QRS Dur : 172 ms QT Int : 452 ms P-R-T Axes : 000 -64 075 degrees QTc Int : 508 ms Atrial-sensed ventricular-paced rhythm Abnormal ECG When compared with ECG of 15-FEB-2024 17:35, Vent. rate has decreased BY 17 BPM Referred By: Generic ED Physician Electronically Signed By:Tyler Smith
--- NOTE | ~2024-03-25 | XR_ITS ---
EXAMINATION: XR CHEST 12:07 PM CLINICAL INFORMATION: Dyspnea COMPARISON: 02/15/2024 TECHNIQUE: Frontal view of the chest was obtained. FINDINGS: There are very low lung volumes with crowding of bronchovascular markings. Discoid atelectasis or scar is again evident at the left base. Mild pulmonary vascular congestion is suspected. The cardiomediastinal silhouette is not well assessed on this AP portable radiograph. XR/XR chest 1V IMPRESSION: 1. Very low lung volumes with crowding of bronchovascular markings. 2. Probable mild pulmonary vascular congestion.
[2024-03-25 11:09] LABS: Glucose, Whole Blood 107 mg/dL (60-115)
[2024-03-25 11:35] LABS: MANUAL DIFF FLAG NO
[2024-03-25 11:39] LABS: Basophils Percent Auto 0.5 % (0-2); Eosinophils Absolute Auto 0.1 X10*3/uL (0.0-0.4); Eosinophils Percent Auto 1.5 % (0-4); Hematocrit 43.5 % (37.0-47.0); Hemoglobin 12.7 g/dl (12.0-16.0); Imm Gran Abs Auto 0.03 X10*3/uL (0.00-0.03); Imm Gran Pct Auto 0.4 % (0.0-0.4); Lymphocytes Absolute Auto 1.3 X10*3/uL (1.2-4.9); Lymphocytes Percent Auto 15.8 % (20-40); Mean Corpuscular HGB Conc 29.2 g/dl (31.0-35.0); Mean Corpuscular Volume 99.3 fL (80.0-98.0); Mean Platelet Volume 10.3 fL (9.4-12.3); Monocytes Absolute Auto 0.8 X10*3/uL (0.1-1.2); Monocytes Percent Auto 9.1 % (2-11); Neutrophils Absolute Auto 6.2 x10*3/uL (2.0-8.3); Neutrophils Percent Auto 72.7 % (45-73); Platelet Count 215 X10*3/uL (160-400); Red Blood Count 4.38 X10*6/uL (4.20-5.50); Red Cell Distribution Width 13.4 % (11.0-16.0); White Blood Count 8.5 X10*3/uL (4.8-10.8)
[2024-03-25 11:41] LABS: VBG HCO3 37 mmol/L (22-26); VBG pCO2 80 mmHg; VBG pH 7.27 (7.32-7.43); VBG pO2 63 mmHg
[2024-03-25 11:42] LABS: Venous Blood Gas Refer to POC result
[2024-03-25 11:53] LABS: Alanine Aminotransferase 7 U/L (0-31); Albumin Level 3.6 g/dL (3.5-5.0); Alkaline Phosphatase 78 U/L (39-117); Anion Gap 10 (12-20); Aspartate Amino Transferase 8 U/L (5-31); Bilirubin Total 0.2 mg/dL (0.0-1.0); Blood Urea Nitrogen 23 mg/dL (9-16); Calcium 9.5 mg/dL (8.4-10.2); Carbon Dioxide 36 mmol/L (22-29); Chloride 102 mmol/L (96-108); Creatinine Clr Calc Pharmacy 106.8; Estimated Glomerular Filt Rate > 60; Glucose Random 113 mg/dL (60-115); Potassium 4.1 mmol/L (3.3-5.1); Sodium 144 mmol/L (135-145)
[2024-03-25] MEDS: methylPREDNISolone Sod Succ 125 MG/2 ML VIAL 60 MG IVPUSH (11:55)
[2024-03-25] MEDS: Albuterol Sulfate 2.5 MG, Albuterol/Iprat 2.5/0.5MG 3 ML 3 ML INHALE (11:56)
--- NOTE | 2024-03-25 11:56 | PC.NURSE ---
pt originally on 3L via NC - resting at 93%. no sob/wob noted but pt remains seemingly lethargic. arousable to verbal stimuli. pt seems to be weak as she is unable to follow commands appropriately. pt now placed on bipap via RT at this time - resting at 92% - settings at 15/5 @ 30%. otherwise vss and up to date. nsr on the cardiac catheterization technician. medication administered per provider order. plan of care ongoing.
[2024-03-25 11:57] LABS: Troponin-I High Sensitivity 13.8 ng/L (<3.5-17.0)
[2024-03-25 11:57] LABS: B Type Natriuretic Peptide 51 pg/mL (<100)
[2024-03-25 12:06] LABS: Prothrombin Time 11.8 SEC (11.1-13.3)
--- NOTE | 2024-03-25 12:07 | PC.NURSE ---
xray being completed at this time.
[2024-03-25 12:22] LABS: Lactic Acid 0.7 mmol/L (0.5-2.0)
--- NOTE | 2024-03-25 12:34 | ED_ITS ---
HPI - General Adult General Chief complaint: General Medical Stated complaint: ALTERED,SOB FROM SNF PER EMS Time Seen by Provider: 03/25/24 11:27 Source: patient, EMS and old records reviewed Mode of arrival: EMS Limitations: altered mental status History of Present Illness ED Provider: ENZO MCCULLOUGH narrative: 63 yo female with PMH of obesity, SMILEY on AVAPS, CHFpEF, COPD on 3L NC, DM2, PPM due to SSS, HTN, UTIs, multiple admits due to acute change in mental status related to CO2 retention she is here again with agitation at [facility] and likely did not use her O2 or CPAP overnight. She was just admitted for this back in February. She tells me I don't know I think I freaked out. retaining on arrival and pH low placed on bipap on arrival MD complaint: AMS Onset (ago): hour(s) (few) Radiation: non-radiation Severity: mild Relieving factors: none Exacerbating factors: none Associated symptoms: confusion Treatments prior to arrival: none Related Data Home Medications ?Medication ?Instructions ?Recorded ?Confirmed acetaminophen 325 mg tablet 650 mg PO Q4H PRN Fever Or Pain 11/18/21 02/16/24 atorvastatin 80 mg tablet 80 mg PO BEDTIME 11/18/21 02/16/24 ferrous sulfate 325 mg (65 mg 325 mg PO DAILY 11/18/21 02/16/24 iron) tablet insulin lispro 100 unit/mL See Protocol subcut QIDACHS 11/18/21 02/16/24 subcutaneous pen melatonin 3 mg tablet 3 mg PO BEDTIME 11/18/21 02/16/24 sennosides 8.6 mg tablet (senna) 17.2 mg PO BEDTIME 11/18/21 02/16/24 sertraline 100 mg tablet 200 mg PO DAILY 11/18/21 02/16/24 tizanidine 4 mg tablet 4 mg PO BEDTIME PRN Muscle Spasm 11/18/21 02/16/24 aspirin 81 mg chewable tablet 81 mg PO DAILY 01/05/22 02/16/24 bupropion HCl 300 mg 24 hr tablet, 300 mg PO DAILY 04/09/22 02/16/24 extended release Lactobacillus rhamnosus GG 10 1 cap PO BID 10/09/22 02/16/24 billion cell capsule (Culturelle) bupropion HCl 150 mg 24 hr tablet, 1 tab PO DAILY 10/09/22 02/16/24 extended release ipratropium 0.5 mg-albuterol 3 mg 3 ml inhalation TID wheezing 10/09/22 02/16/24 (2.5 mg base)/3 mL nebulization soln potassium chloride 10 mEq 10 meq PO DAILY 10/09/22 02/16/24 tablet,extended release bisacodyl 10 mg rectal suppository 10 mg VT DAILY PRN Constipation 10/21/22 02/16/24 sodium phosphates 19 gram-7 118 ml VT DAILY PRN Constipation 11/09/22 02/16/24 gram/118 mL enema (Fleet Enema) metformin 500 mg tablet 500 mg PO BID 12/27/22 02/16/24 semaglutide 0.25 mg or 0.5 mg (2 0.5 mg subcut WE 12/27/22 02/16/24 mg/3 mL) subcutaneous pen injector (Ozempic) cholecalciferol (vitamin D3) 25 25 mcg PO DAILY 04/04/23 02/16/24 mcg (1,000 unit) tablet insulin glargine 100 unit/mL 25 unit subcut DAILY 04/04/23 02/16/24 subcutaneous solution (Lantus U-100 Insulin) losartan 25 mg tablet 25 mg PO DAILY 04/04/23 02/16/24 megestrol 400 mg/10 mL (40 mg/mL) 400 mg PO TID 04/04/23 02/16/24 oral suspension olopatadine 0.2 % eye drops 1 drp ophthalmic (eye) QSHIFT 04/04/23 02/16/24 cyanocobalamin (vitamin B-12) 1,000 mcg PO DAILY 04/21/23 02/16/24 1,000 mcg capsule magnesium hydroxide 400 mg/5 mL 30 ml PO DAILY PRN Constipation 10/02/23 02/16/24 oral suspension (Milk of Magnesia) aripiprazole 2 mg tablet 2 mg PO DAILY 10/28/23 02/16/24 empagliflozin 25 mg tablet 25 mg PO DAILY 02/16/24 02/16/24 (Jardiance) fluticasone 113 mcg-salmeterol 14 1 inh inhalation DAILY 02/16/24 02/16/24 mcg/actuation breath activated powdr magnesium citrate 300 ml PO DAILY PRN Constipation 02/16/24 02/16/24 polyethylene glycol 3350 17 17 g PO DAILY PRN Constipation 02/16/24 02/16/24 gram/dose oral powder (Miralax) Previous Rx's ?Medication ?Instructions ?Recorded amlodipine 5 mg tablet 5 mg PO DAILY 30 days #30 tabs 11/26/21 furosemide 40 mg tablet 40 mg PO DAILY #30 tabs 04/05/22 acetazolamide 250 mg tablet 500 mg (2 x 250 mg) PO BID #60 tabs 01/06/23 spironolactone 25 mg tablet 25 mg PO DAILY #30 tabs 11/01/23 modafinil 100 mg tablet (Provigil) 100 mg PO DAILY #30 tabs 02/18/24 Allergies Allergy/AdvReac Type Severity Reaction Status Date / Time latex Allergy Unknown Unknown Verified 03/25/24 11:01 adhesive tape AdvReac Unknown Unknown Verified 03/25/24 11:01 bupropion [From Wellbutrin] AdvReac Unknown Unknown Verified 03/25/24 11:01 ibuprofen AdvReac Unknown Unknown Verified 03/25/24 11:01 Review of Systems 2 Review of Systems: ROS unable to be obtained due to altered mental status [facility] Past Medical History Source: old records reviewed Medical History Hypoventilation associated with obesity COPD (chronic obstructive pulmonary disease) Obesity hypoventilation syndrome Diabetes mellitus Acute and chronic respiratory failure with hypercapnia Morbid obesity Pressure injury of deep tissue of buttock Sepsis Morbid obesity with BMI of 50.0-59.9, adult Acute and chronic respiratory failure Pressure ulcer, stage II, skin breakdown Hypertrophic nonobstructive cardiomyopathy Presence of permanent cardiac pacemaker Acute on chronic respiratory failure with hypoxia and hypercapnia Metabolic encephalopathy Acute and chronic respiratory failure with hypercapnia Urinary tract infection due to ESBL Klebsiella Respiratory failure Presence of permanent cardiac pacemaker Sick sinus syndrome Morbid obesity Heart block AV third degree PAD (peripheral artery disease) Diabetic ulcer of foot associated with diabetes mellitus due to underlying condition, with fat layer exposed Atelectasis of both lungs Respiratory failure with hypoxia and hypercapnia Hypoventilation associated with obesity syndrome SMILEY (obstructive sleep apnea) Morbid obesity Pulmonary embolism CHF (congestive heart failure) Clostridium difficile infection Hypertension Diabetes mellitus, type 2 Depression Arthritis Anemia Surgical History History of total knee replacement Social History Social History Household Members: Unknown / Unable to assess Housing: Other Housing Other:: Came from STR Are you a primary home health care physician to a significant other at home: No Do you presently have visiting nurse or other home services: Yes Unable to assess alcohol history related to: Unknown Alcohol intake: never Patient Tobacco Use Status: Former Tobacco user Tobacco use type: Cigarette Cigarette Packs Per Day: 20 Cigarettes Per Day: 400.0 Years Smoked: 20 e-Cigarette/Vaping Use: Never Used Second Hand Smoke Exposure: No Substance Use Type: Unknown Advance Directives: Yes Advance Directives on File: Yes Advance Directives Date on File: 01/07/23 Do you have a plan to hurt others: No Plan service: No Current occupational status: disabled Physical Exam ED Vital Signs: Vital Signs - 24 hr 03/25/24 11:01 03/25/24 11:55 03/25/24 11:56 Temperature 98.3 F Pulse Rate 83 75 Respiratory Rate 16 23 H 18 Blood Pressure 121/57 L 105/84 Pulse Oximetry 92 92 Oxygen Delivery Method Room Air BiPAP Oxygen Flow Rate Fraction of Inspired Oxygen 30 03/25/24 11:56 03/25/24 13:13 03/25/24 13:14 Temperature 98.1 F Pulse Rate 79 72 Respiratory Rate 18 22 H Blood Pressure 106/37 L 112/65 Pulse Oximetry 93 Oxygen Delivery Method BiPAP Oxygen Flow Rate Fraction of Inspired Oxygen 03/25/24 13:59 Temperature Pulse Rate Respiratory Rate Blood Pressure Pulse Oximetry 93 Oxygen Delivery Method Nasal Cannula Oxygen Flow Rate 3 Fraction of Inspired Oxygen BMI result Body Mass Index 40.2 Appearance: Alert. Oriented X2. Mild acute distress. confused Eyes: Pupils equal, round and reactive to light. ENT: Pharynx normal. atraumatic Neck: Normal inspection. Neck supple. CVS: Normal heart rate and rhythm. Pulses normal. Respiratory: Mild respiratory distress tachypnea. Breath sounds diminished and dry cough noted Abdomen: Soft and nontender. Skin: Skin warm and dry. Normal skin color. Normal skin turgor. Extremities: No lower extremity edema. Neuro: Oriented X 2 No motor deficit. No sensory deficit. Course Course Course Narrative: VBG improved off bipap 150pm Reevaluation(s) Reevaluation #1: + UTI will start on broad given hx of ESBL 329pm Medications Administered Discontinued Medications Generic Name Dose Route Start Last Admin Trade Name Mike PRN Reason Stop Dose Admin Albuterol Sulfate 2.5 mg/ 0 mg 03/25/24 11:51 03/25/24 11:56 Albuterol/Ipratropium 3 ml INHALE 03/25/24 11:52 5 dose ONCE ONE Administration Azithromycin 500 mg/ Sodium 250 mls @ 125 mls/hr 03/25/24 12:40 03/25/24 13:08 Chloride IV 03/25/24 14:39 125 mls/hr ONCE ONE Administration Methylprednisolone Sodium Succinate 60 mg 03/25/24 11:44 03/25/24 11:55 Methylprednisolone Sod Succ 125 Mg/2 Ml Vial IVPUSH 03/25/24 11:45 60 mg ONCE ONE Administration Medical Decision Making Medical Decision Making [facility] Narrative: 63 yo female with PMH of obesity, SMILEY on AVAPS, CHFpEF, COPD on 3L NC, DM2, PPM due to SSS, HTN, UTIs, multiple admits due to acute change in mental status related to CO2 retention at this time suspect non compliance as cause will give steroids, neb, placed on bipap and repeat VBG in 2 hours has hx of same in past. IV azithromycin she is not reliable cannot tell me if she has sputum production Differential Diagnosis Differential Diagnoses: The differential diagnosis associated with the presentation includes COPD, retention Admission/Observation Consideration of admission/observation: Escalation of care including admission/observation considered admit for encephalopathy Consult Healthcare Provider Management of the patient was discussed with: Hospitalist (will admit) Lab Data [facility] Lab Attestation statement: I reviewed the patient's lab results. 03/25/24 11:32 03/25/24 11:32 Labs: Lab Results 03/25/24 03/25/24 03/25/24 Range/Units 11:03 11:31 11:32 WBC 8.5 (4.8-10.8) X10*3/uL RBC 4.38 (4.20-5.50) X10*6/uL Hgb 12.7 (12.0-16.0) g/dl Hct 43.5 (37.0-47.0) % MCV 99.3 H (80.0-98.0) fL MCH 29.0 (27.0-33.0) pg MCHC 29.2 L (31.0-35.0) g/dl RDW 13.4 (11.0-16.0) % Plt Count 215 (160-400) X10*3/uL MPV 10.3 (9.4-12.3) fL Immature Gran % (Auto) 0.4 (0.0-0.4) % Neut % (Auto) 72.7 (45-73) % Lymph % (Auto) 15.8 L (20-40) % [place] % (Auto) 9.1 (2-11) % Eos % (Auto) 1.5 (0-4) % Baso % (Auto) 0.5 (0-2) % Lymph # (Auto) 1.3 (1.2-4.9) X10*3/uL [place] # (Auto) 0.8 (0.1-1.2) X10*3/uL Eos # (Auto) 0.1 (0.0-0.4) X10*3/uL Baso # (Auto) 0.0 (0.0-0.2) X10*3/uL Abs Immat Gran (auto) 0.03 (0.00-0.03) X10*3/uL Absolute Neuts (auto) 6.2 (2.0-8.3) x10*3/uL Absolute Nucleated RBC 0.000 (0.0-0.012) X10*3/uL Nucleated RBC % (auto) 0.0 (0.0-0.2) /100WBC PT (11.1-13.3) SEC INR (0.9-1.1) APTT (26.0-36.8) SEC VBG pH (7.32-7.43) VBG pCO2 mmHg VBG pO2 mmHg VBG HCO3 (22-26) mmol/L VBG O2 Saturation % VBG Base Excess mmol/L Sodium 144 (135-145) mmol/L Potassium 4.1 (3.3-5.1) mmol/L Chloride 102 (96-108) mmol/L Carbon Dioxide 36 H (22-29) mmol/L Anion Gap 10 L (12-20) BUN 23 H (9-16) mg/dL Creatinine 0.82 (0.5-1.4) mg/dL Estim Creat Clear Calc 106.8 Estimated GFR > 60 POC Glucose 107 (60-115) mg/dL Random Glucose 113 (60-115) mg/dL Lactic Acid (0.5-2.0) mmol/L Calcium 9.5 (8.4-10.2) mg/dL Total Bilirubin 0.2 (0.0-1.0) mg/dL AST 8 (5-31) U/L ALT 7 (0-31) U/L Alkaline Phosphatase 78 (39-117) U/L Troponin I High Sens 13.8 (<3.5-17.0) ng/L B-Natriuretic Peptide 51 (<100) pg/mL Total Protein 7.0 (6.5-8.0) g/dL Albumin 3.6 (3.5-5.0) g/dL Urine Color Urine Appearance Urine pH (5.0-9.0) Ur Specific [place] (1.005-1.025) Urine Protein (Neg-Trace) mg/dL Urine Glucose (UA) (Negative) mg/dL Urine Ketones (Negative) mg/dL Urine Blood (Negative) Urine Nitrite (Negative) Ur Leukocyte Esterase (Negative) Urine RBC (0-2) /HPF Urine WBC (0-5) /HPF Ur Squamous Epith Cells (0-2) /HPF Urine Bacteria (None Seen) Hyaline Casts (0-2) /LPF Influenza Type A (PCR) (Negative) Influenza Type B (PCR) (Negative) RSV RNA Qual (PCR) (Negative) SARS-CoV-2 RNA (RT-PCR) (Negative) 03/25/24 03/25/24 03/25/24 Range/Units 11:33 11:37 12:06 WBC (4.8-10.8) X10*3/uL RBC (4.20-5.50) X10*6/uL Hgb (12.0-16.0) g/dl Hct (37.0-47.0) % MCV (80.0-98.0) fL MCH (27.0-33.0) pg MCHC (31.0-35.0) g/dl RDW (11.0-16.0) % Plt Count (160-400) X10*3/uL MPV (9.4-12.3) fL Immature Gran % (Auto) (0.0-0.4) % Neut % (Auto) (45-73) % Lymph % (Auto) (20-40) % [place] % (Auto) (2-11) % Eos % (Auto) (0-4) % Baso % (Auto) (0-2) % Lymph # (Auto) (1.2-4.9) X10*3/uL [place] # (Auto) (0.1-1.2) X10*3/uL Eos # (Auto) (0.0-0.4) X10*3/uL Baso # (Auto) (0.0-0.2) X10*3/uL Abs Immat Gran (auto) (0.00-0.03) X10*3/uL Absolute Neuts (auto) (2.0-8.3) x10*3/uL Absolute Nucleated RBC (0.0-0.012) X10*3/uL Nucleated RBC % (auto) (0.0-0.2) /100WBC PT 11.8 (11.1-13.3) SEC INR 1.0 (0.9-1.1) APTT 20.0 L (26.0-36.8) SEC VBG pH 7.27 L (7.32-7.43) VBG pCO2 80 mmHg VBG pO2 63 mmHg VBG HCO3 37 H (22-26) mmol/L VBG O2 Saturation 91.0 % VBG Base Excess 7.0 mmol/L Sodium (135-145) mmol/L Potassium (3.3-5.1) mmol/L Chloride (96-108) mmol/L Carbon Dioxide (22-29) mmol/L Anion Gap (12-20) BUN (9-16) mg/dL Creatinine (0.5-1.4) mg/dL Estim Creat Clear Calc Estimated GFR POC Glucose (60-115) mg/dL Random Glucose (60-115) mg/dL Lactic Acid 0.7 (0.5-2.0) mmol/L Calcium (8.4-10.2) mg/dL Total Bilirubin (0.0-1.0) mg/dL AST (5-31) U/L ALT (0-31) U/L Alkaline Phosphatase (39-117) U/L Troponin I High Sens (<3.5-17.0) ng/L B-Natriuretic Peptide (<100) pg/mL Total Protein (6.5-8.0) g/dL Albumin (3.5-5.0) g/dL Urine Color Urine Appearance Urine pH (5.0-9.0) Ur Specific [place] (1.005-1.025) Urine Protein (Neg-Trace) mg/dL Urine Glucose (UA) (Negative) mg/dL Urine Ketones (Negative) mg/dL Urine Blood (Negative) Urine Nitrite (Negative) Ur Leukocyte Esterase (Negative) Urine RBC (0-2) /HPF Urine WBC (0-5) /HPF Ur Squamous Epith Cells (0-2) /HPF Urine Bacteria (None Seen) Hyaline Casts (0-2) /LPF Influenza Type A (PCR) (Negative) Influenza Type B (PCR) (Negative) RSV RNA Qual (PCR) (Negative) SARS-CoV-2 RNA (RT-PCR) (Negative) 03/25/24 03/25/24 03/25/24 Range/Units 12:37 13:36 15:12 WBC (4.8-10.8) X10*3/uL RBC (4.20-5.50) X10*6/uL Hgb (12.0-16.0) g/dl Hct (37.0-47.0) % MCV (80.0-98.0) fL MCH (27.0-33.0) pg MCHC (31.0-35.0) g/dl RDW (11.0-16.0) % Plt Count (160-400) X10*3/uL MPV (9.4-12.3) fL Immature Gran % (Auto) (0.0-0.4) % Neut % (Auto) (45-73) % Lymph % (Auto) (20-40) % [place] % (Auto) (2-11) % Eos % (Auto) (0-4) % Baso % (Auto) (0-2) % Lymph # (Auto) (1.2-4.9) X10*3/uL [place] # (Auto) (0.1-1.2) X10*3/uL Eos # (Auto) (0.0-0.4) X10*3/uL Baso # (Auto) (0.0-0.2) X10*3/uL Abs Immat Gran (auto) (0.00-0.03) X10*3/uL Absolute Neuts (auto) (2.0-8.3) x10*3/uL Absolute Nucleated RBC (0.0-0.012) X10*3/uL Nucleated RBC % (auto) (0.0-0.2) /100WBC PT (11.1-13.3) SEC INR (0.9-1.1) APTT (26.0-36.8) SEC VBG pH 7.54 H (7.32-7.43) VBG pCO2 37 mmHg VBG pO2 136 mmHg VBG HCO3 32 H (22-26) mmol/L VBG O2 Saturation 100.0 % VBG Base Excess 9.5 mmol/L Sodium (135-145) mmol/L Potassium (3.3-5.1) mmol/L Chloride (96-108) mmol/L Carbon Dioxide (22-29) mmol/L Anion Gap (12-20) BUN (9-16) mg/dL Creatinine (0.5-1.4) mg/dL Estim Creat Clear Calc Estimated GFR POC Glucose (60-115) mg/dL Random Glucose (60-115) mg/dL Lactic Acid (0.5-2.0) mmol/L Calcium (8.4-10.2) mg/dL Total Bilirubin (0.0-1.0) mg/dL AST (5-31) U/L ALT (0-31) U/L Alkaline Phosphatase (39-117) U/L Troponin I High Sens (<3.5-17.0) ng/L B-Natriuretic Peptide (<100) pg/mL Total Protein (6.5-8.0) g/dL Albumin (3.5-5.0) g/dL Urine Color Dark Yellow Urine Appearance Clear Urine pH 5.5 (5.0-9.0) Ur Specific [place] >= 1.030 H (1.005-1.025) Urine Protein Trace (Neg-Trace) mg/dL Urine Glucose (UA) >=1000 H (Negative) mg/dL Urine Ketones Trace (Negative) mg/dL Urine Blood Negative (Negative) Urine Nitrite Positive H (Negative) Ur Leukocyte Esterase Negative (Negative) Urine RBC 0-2 (0-2) /HPF Urine WBC 6-10 H (0-5) /HPF Ur Squamous Epith Cells 0-2 (0-2) /HPF Urine Bacteria 4+ (None Seen) Hyaline Casts 0-2 (0-2) /LPF Influenza Type A (PCR) NEGATIVE (Negative) Influenza Type B (PCR) NEGATIVE (Negative) RSV RNA Qual (PCR) NEGATIVE (Negative) SARS-CoV-2 RNA (RT-PCR) NEGATIVE (Negative) Independent Interpretation I performed an independent interpretation of an: EKG and Plain X-Ray (no pneumonia) Interpretation: Rate: 76 Rhythm: paced [place]: left Normal P waves. Normal [place]. wide QRS complex. ST T wave : no [place]ANS[place], inverted t waves I and aVL qTC: 508 prior studies: unchanged The study has been interpreted contemporaneously by me. . Radiology Impression Discussion of test interpretation with radiology: I have reviewed the radiologist's reading. Independent Historian Clinical information obtained from an independent historian. History obtained from or confirmed by: EMS External Record Review External record reviewed: Inpatient record Critical Care Time Critical Care Time Critical Care Time: Yes Total Critical Care Time: 60 Attestation: repeat VBG with improvement, NIPPV for hypercarbia, repeat assessments, review of records, admission I attest to this time spent taking care of the patient Discharge Plan Discharge Clinical Impression: Encephalopathy acute, Acute UTI Respiratory failure with hypercapnia Qualifiers: Chronicity: acute on chronic Qualified Code(s): J96.22 - Acute and chronic respiratory failure with hypercapnia Patient Disposition: Admitted As Inpatient Print Language: Slovak
[2024-03-25] MEDS: Azithromycin 500 MG in 0.9 % Sodium Chloride 250 ML 125 MG IV (13:08)
--- NOTE | 2024-03-25 13:14 | PC.NURSE ---
pt slightly hypotensive - MD notified/aware. abx administered per provide order. remains on bipap at this time. plan of care ongoing.
[2024-03-25 13:32] LABS: Influenza A PCR NEGATIVE (Negative); Influenza B PCR NEGATIVE (Negative); Resp Syncy Virus RNA Qual PCR NEGATIVE (Negative); SARS COV2 PCR INHOUSE NEGATIVE (Negative)
[2024-03-25 13:44] LABS: Venous Blood Gas Refer to POC result
[2024-03-25 13:44] LABS: VBG Base Excess 9.5 mmol/L; VBG HCO3 32 mmol/L (22-26); VBG pCO2 37 mmHg; VBG pH 7.54 (7.32-7.43); VBG pO2 136 mmHg
--- NOTE | 2024-03-25 13:58 | PC.NURSE ---
pt taken off of bipap via RT and placed on 3L via NC - pt tolerating transition well. resting at 93% via 3L NC. no sob/wob noted. respirations even/unlabored. plan of care ongoing.
[2024-03-25 15:22] LABS: Appearance Urine Clear; Color Urine Dark Yellow; Glucose Urine UA >=1000 mg/dL (Negative); Leukocyte Esterase Urine Negative (Negative); Nitrite Urine Positive (Negative); PH 5.5 (5.0-9.0); Specific Gravity - Urine >= 1.030 (1.005-1.025); UMIC TRIGGER UACC YES; Urine Blood Negative (Negative); Urine Ketones Trace mg/dL (Negative); Urine Protein Trace mg/dL (Neg-Trace)
--- NOTE | 2024-03-25 15:24 | PC.NURSE ---
straight catheterization performed. 300ml of dark yellow/cloudy/foul smelling urine noted immediately post output. pt tolerated well. UA obtained/sent to lab. pt remains on 3L via AR. family bedside for support.
[2024-03-25 15:28] LABS: Bacteria Urine 4+ (None Seen); Hyaline Casts Urine 0-2 /LPF (0-2); RBC Urine 0-2 /HPF (0-2); Squamous Epithelial Cell Urine 0-2 /HPF (0-2); UACC Culture Trigger YES
[2024-03-25] MEDS: Ertapenem Sodium 1 GM in 0.9 % Sodium Chloride 50 ML IV (15:47)
--- NOTE | 2024-03-25 15:48 | P.HPHOSP_ITS ---
History of Present Illness Date of Service: 03/25/24 Chief Complaint: Altered mentation This is a 63-year-old female with pertinent history of chronic hypoxemic respiratory failure due to COPD on 2-3 L supplemental oxygen at baseline, sick sinus syndrome status post pacemaker implantation, insulin-dependent diabetes mellitus, obesity, 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 As per the , patient was altered and she gets confused if she does not use her NIV at night. Patient was recently admitted for acute metabolic encephalopathy due to hypercapnia. Patient admits wheezing but denies cough. Unable to obtain review of systems. In the emergency department, ABG revealed respiratory acidosis. Patient was placed on BiPAP initially for respiratory acidosis. Review of Systems 2 Review of Systems: Yes Unobtainable due to mental condition [facility] Medical History Hypoventilation associated with obesity COPD (chronic obstructive pulmonary disease) Obesity hypoventilation syndrome Diabetes mellitus Acute and chronic respiratory failure with hypercapnia Morbid obesity Pressure injury of deep tissue of buttock Sepsis Morbid obesity with BMI of 50.0-59.9, adult Acute and chronic respiratory failure Pressure ulcer, stage II, skin breakdown Hypertrophic nonobstructive cardiomyopathy Presence of permanent cardiac pacemaker Acute on chronic respiratory failure with hypoxia and hypercapnia Metabolic encephalopathy Acute and chronic respiratory failure with hypercapnia Urinary tract infection due to ESBL Klebsiella Respiratory failure Presence of permanent cardiac pacemaker Sick sinus syndrome Morbid obesity Heart block AV third degree PAD (peripheral artery disease) Diabetic ulcer of foot associated with diabetes mellitus due to underlying condition, with fat layer exposed Atelectasis of both lungs Respiratory failure with hypoxia and hypercapnia Hypoventilation associated with obesity syndrome SMILEY (obstructive sleep apnea) Morbid obesity Pulmonary embolism CHF (congestive heart failure) Clostridium difficile infection Hypertension Diabetes mellitus, type 2 Depression Arthritis Anemia Surgical History History of total knee replacement Social History Household Members: Unknown / Unable to assess Housing: Other Housing Other:: Came from STR Are you a primary care management assistant to a significant other at home: No Do you presently have visiting nurse or other home services: Yes Unable to assess alcohol history related to: Unknown Alcohol intake: never Patient Tobacco Use Status: Former Tobacco user Tobacco use type: Cigarette Cigarette Packs Per Day: 20 Cigarettes Per Day: 400.0 Years Smoked: 20 e-Cigarette/Vaping Use: Never Used Second Hand Smoke Exposure: No Substance Use Type: Unknown Advance Directives: Yes Advance Directives on File: Yes Advance Directives Date on File: 01/07/23 Do you have a plan to hurt others: No Plan service: No Current occupational status: disabled Meds Allergies Allergy/AdvReac Type Severity Reaction Status Date / Time latex Allergy Unknown Unknown Verified 03/25/24 11:01 adhesive tape AdvReac Unknown Unknown Verified 03/25/24 11:01 bupropion [From Wellbutrin] AdvReac Unknown Unknown Verified 03/25/24 11:01 ibuprofen AdvReac Unknown Unknown Verified 03/25/24 11:01 Active Medications: Current Medications Ertapenem 1 gm/ Sodium (Chloride) 50 mls @ 100 mls/hr IV ONCE ONE Stop: 03/25/24 15:56 Last Admin: 03/25/24 15:47 Dose: 100 mls/hr Home Medications ?Medication ?Instructions ?Recorded ?Confirmed ?Last Taken ?Type acetaminophen 325 mg tablet 325 mg PO Q4H PRN Fever Or Pain 11/18/21 02/16/24 Unknown History atorvastatin 80 mg tablet 80 mg PO BEDTIME 11/18/21 02/16/24 Unknown History ferrous sulfate 325 mg (65 mg 325 mg PO DAILY 11/18/21 02/16/24 Unknown History iron) tablet insulin lispro 100 unit/mL See Protocol subcut QIDACHS 11/18/21 02/16/24 Unknown History subcutaneous pen melatonin 3 mg tablet 3 mg PO BEDTIME 11/18/21 02/16/24 Unknown History sennosides 8.6 mg tablet (senna) 17.2 mg PO BEDTIME 11/18/21 02/16/24 Unknown History sertraline 100 mg tablet 200 mg PO DAILY 11/18/21 02/16/24 Unknown History tizanidine 4 mg tablet 4 mg PO BEDTIME PRN Muscle Spasm 11/18/21 02/16/24 Unknown History aspirin 81 mg chewable tablet 81 mg PO DAILY 01/05/22 02/16/24 Unknown History bupropion HCl 300 mg 24 hr tablet, 300 mg PO DAILY 04/09/22 02/16/24 Unknown History extended release Lactobacillus rhamnosus GG 10 1 cap PO BID 10/09/22 02/16/24 Unknown History billion cell capsule (Culturelle) bupropion HCl 150 mg 24 hr tablet, 1 tab PO DAILY 10/09/22 02/16/24 Unknown History extended release ipratropium 0.5 mg-albuterol 3 mg 3 ml inhalation TID wheezing 10/09/22 02/16/24 Unknown History (2.5 mg base)/3 mL nebulization soln potassium chloride 10 mEq 10 meq PO DAILY 10/09/22 02/16/24 Unknown History tablet,extended release bisacodyl 10 mg rectal suppository 10 mg NV DAILY PRN Constipation 10/21/22 02/16/24 Unknown History sodium phosphates 19 gram-7 118 ml NV DAILY PRN Constipation 11/09/22 02/16/24 Unknown History gram/118 mL enema (Fleet Enema) metformin 500 mg tablet 500 mg PO BID 12/27/22 02/16/24 Unknown History semaglutide 0.25 mg or 0.5 mg (2 0.5 mg subcut WE 12/27/22 02/16/24 Unknown History mg/3 mL) subcutaneous pen injector (Ozempic) cholecalciferol (vitamin D3) 25 25 mcg PO DAILY 04/04/23 02/16/24 Unknown History mcg (1,000 unit) tablet insulin glargine 100 unit/mL 25 unit subcut DAILY 04/04/23 02/16/24 Unknown History subcutaneous solution (Lantus U-100 Insulin) losartan 25 mg tablet 25 mg PO DAILY 04/04/23 02/16/24 Unknown History megestrol 400 mg/10 mL (40 mg/mL) 400 mg PO TID 04/04/23 02/16/24 Unknown History oral suspension olopatadine 0.2 % eye drops 1 drp ophthalmic (eye) QSHIFT 04/04/23 02/16/24 Unknown History cyanocobalamin (vitamin B-12) 1,000 mcg PO DAILY 04/21/23 02/16/24 Unknown History 1,000 mcg capsule magnesium hydroxide 400 mg/5 mL 30 ml PO DAILY PRN Constipation 10/02/23 02/16/24 Unknown History oral suspension (Milk of Magnesia) aripiprazole 2 mg tablet 2 mg PO DAILY 10/28/23 02/16/24 Unknown History empagliflozin 25 mg tablet 25 mg PO DAILY 02/16/24 02/16/24 Unknown History (Jardiance) fluticasone 113 mcg-salmeterol 14 1 inh inhalation DAILY 02/16/24 02/16/24 Unknown History mcg/actuation breath activated powdr magnesium citrate 300 ml PO DAILY PRN Constipation 02/16/24 02/16/24 Unknown History polyethylene glycol 3350 17 17 g PO DAILY PRN Constipation 02/16/24 02/16/24 Unknown History gram/dose oral powder (Miralax) erythromycin 5 mg/gram (0.5 %) eye 1 inch ophthalmic (eye) BEDTIME 03/25/24 Unknown History ointment Physical Exam 2 Vital Signs and Narrative: Vital Signs: Last Vital Signs Temp 98.1 F 03/25/24 13:13 Pulse 72 03/25/24 13:13 Resp 22 H 03/25/24 13:13 BP 112/65 03/25/24 13:14 Pulse Ox 93 03/25/24 13:59 O2 Del Method Nasal Cannula 03/25/24 13:59 O2 Flow Rate 3 03/25/24 13:59 FiO2 30 03/25/24 11:55 Oxygen Flow Rate 3 03/25/24 11:01 BMI result Body Mass Index 40.2 Obese female lying in bed in mild distress on supplemental oxygen Neck supple, no JVD Regular rate and rhythm, S1-S2 heard Decreased breath sounds with mild expiratory wheezing Abdomen soft nontender, no guarding, no rigidity Patient is awake, alert and oriented to self, disoriented to place, time and person ; no focal motor deficit Psych: Normal mood Bilateral pedal edema Results Labs 03/25/24 11:32 03/25/24 11:32 Labs: Laboratory Results - last 24 hr 03/25/24 03/25/24 03/25/24 11:03 11:31 11:32 MCV 99.3 H MCH 29.0 MCHC 29.2 L RDW 13.4 Plt Count 215 MPV 10.3 Immature Gran % (Auto) 0.4 Neut % (Auto) 72.7 Lymph % (Auto) 15.8 L [place] % (Auto) 9.1 Eos % (Auto) 1.5 Baso % (Auto) 0.5 Lymph # (Auto) 1.3 [place] # (Auto) 0.8 Eos # (Auto) 0.1 Baso # (Auto) 0.0 Abs Immat Gran (auto) 0.03 Absolute Neuts (auto) 6.2 Absolute Nucleated RBC 0.000 Nucleated RBC % (auto) 0.0 PT INR APTT VBG pH VBG pCO2 VBG pO2 VBG HCO3 VBG O2 Saturation VBG Base Excess Anion Gap 10 L Estim Creat Clear Calc 106.8 Estimated GFR > 60 POC Glucose 107 Random Glucose 113 Lactic Acid Calcium 9.5 Total Bilirubin 0.2 AST 8 ALT 7 Alkaline Phosphatase 78 Troponin I High Sens 13.8 B-Natriuretic Peptide 51 Total Protein 7.0 Albumin 3.6 Urine Color Urine Appearance Urine pH Ur Specific Grants Urine Protein Urine Glucose (UA) Urine Ketones Urine Blood Urine Nitrite Ur Leukocyte Esterase Urine RBC Urine WBC Ur Squamous Epith Cells Urine Bacteria Hyaline Casts Influenza Type A (PCR) Influenza Type B (PCR) RSV RNA Qual (PCR) SARS-CoV-2 RNA (RT-PCR) 03/25/24 03/25/24 03/25/24 11:33 11:37 12:06 MCV MCH MCHC RDW Plt Count MPV Immature Gran % (Auto) Neut % (Auto) Lymph % (Auto) [place] % (Auto) Eos % (Auto) Baso % (Auto) Lymph # (Auto) [place] # (Auto) Eos # (Auto) Baso # (Auto) Abs Immat Gran (auto) Absolute Neuts (auto) Absolute Nucleated RBC Nucleated RBC % (auto) PT 11.8 INR 1.0 APTT 20.0 L VBG pH 7.27 L VBG pCO2 80 VBG pO2 63 VBG HCO3 37 H VBG O2 Saturation 91.0 VBG Base Excess 7.0 Anion Gap Estim Creat Clear Calc Estimated GFR POC Glucose Random Glucose Lactic Acid 0.7 Calcium Total Bilirubin AST ALT Alkaline Phosphatase Troponin I High Sens B-Natriuretic Peptide Total Protein Albumin Urine Color Urine Appearance Urine pH Ur Specific Grants Urine Protein Urine Glucose (UA) Urine Ketones Urine Blood Urine Nitrite Ur Leukocyte Esterase Urine RBC Urine WBC Ur Squamous Epith Cells Urine Bacteria Hyaline Casts Influenza Type A (PCR) Influenza Type B (PCR) RSV RNA Qual (PCR) SARS-CoV-2 RNA (RT-PCR) 03/25/24 03/25/24 03/25/24 12:37 13:36 15:12 MCV MCH MCHC RDW Plt Count MPV Immature Gran % (Auto) Neut % (Auto) Lymph % (Auto) [place] % (Auto) Eos % (Auto) Baso % (Auto) Lymph # (Auto) [place] # (Auto) Eos # (Auto) Baso # (Auto) Abs Immat Gran (auto) Absolute Neuts (auto) Absolute Nucleated RBC Nucleated RBC % (auto) PT INR APTT VBG pH 7.54 H VBG pCO2 37 VBG pO2 136 VBG HCO3 32 H VBG O2 Saturation 100.0 VBG Base Excess 9.5 Anion Gap Estim Creat Clear Calc Estimated GFR POC Glucose Random Glucose Lactic Acid Calcium Total Bilirubin AST ALT Alkaline Phosphatase Troponin I High Sens B-Natriuretic Peptide Total Protein Albumin Urine Color Dark Yellow Urine Appearance Clear Urine pH 5.5 Ur Specific [place]ants >= 1.030 H Urine Protein Trace Urine Glucose (UA) >=1000 H Urine Ketones Trace Urine Blood Negative Urine Nitrite Positive H Ur Leukocyte Esterase Negative Urine RBC 0-2 Urine WBC 6-10 H Ur Squamous Epith Cells 0-2 Urine Bacteria 4+ Hyaline Casts 0-2 Influenza Type A (PCR) NEGATIVE Influenza Type B (PCR) NEGATIVE RSV RNA Qual (PCR) NEGATIVE SARS-CoV-2 RNA (RT-PCR) NEGATIVE Imaging Radiologist's Impressions: Impressions Chest X-Ray 03/25/24 12:13 IMPRESSION: 1. Very low lung volumes with crowding of bronchovascular markings. 2. Probable mild pulmonary vascular congestion. Assessment and Plan (1) Encephalopathy acute: Status: Acute (2) Hypercapnia: Status: Acute Plan This is a 63-year-old female with pertinent history of chronic hypoxemic respiratory failure due to COPD on 2-3 L supplemental oxygen at baseline, sick sinus syndrome status post pacemaker implantation, insulin-dependent diabetes mellitus, obesity, 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 #. Acute hypercapnic on chronic hypoxemic respiratory failure due to exacerbation of COPD in patient with SMIELY/OHS: Noncompliant with NIV at bedtime. Will admit patient and initiate IV steroids. Scheduled and p.r.n. DuoNebs. Continue home inhaler. Continue NIV at bedtime #. Acute metabolic encephalopathy in the setting of hypercapnia. NPO until mentation improves #. Acute mild exacerbation of congestive heart failure with preserved ejection fraction: IV diuresis x1. Strict I's and O's. BNP came be normal in obesity #. Insulin-dependent diabetes mellitus: Initiating basal plus insulin regimen #. Hypertension: Continue home antihypertensives #. Mixed hyperlipidemia: Statin #. Morbid obesity: Diet and exercise #. Mood disorder: Continue home mood stabilizers DVT prophylaxis: Lovenox Full code Admit as inpatient and will require two night minimum hospital stay for monitoring of mentation, monitoring of respiratory status (as above), which is not possible in a lesser acute setting. Quality Stroke Does the patient have a stroke diagnosis?: No VTE Prior VTE?: No VTE Risk Level:: Medical - moderate - high VTE Device Contraindication: Treatment Not Indicated VTE Drug Contraindication: N/A - Med Ordered
[2024-03-25] MEDS: Albuterol/Iprat 2.5/0.5MG 3 ML AMPUL.NEB INHALE ×2 (16:09→20:06)
--- NOTE | 2024-03-25 16:09 | PHA.MEDREC ---
Pharmacy Consult ? Medication Reconciliation Pharmacy has completed the medication reconciliation. Utilized med list from [facility] to confirm med list.
[2024-03-25] MEDS: Furosemide 40 MG/4 ML VIAL IVPUSH (17:09)
[2024-03-25] MEDS: Enoxaparin Sodium 40 MG/0.4 ML SYRINGE SUBCUT (17:09)
--- NOTE | 2024-03-25 17:24 | PC.NURSE ---
when administering medication - pt seemingly warm to the touch. rectal temp obtained displaying 99.8. erythema noted to pt's bottom. nonblanchable. barrier cream applied. dr. bolivar notified/awawre of findings.
[2024-03-25] MEDS: Acetaminophen 325 MG TABLET 650 MG PO (17:54)
[2024-03-25 18:26] LABS: Glucose, Whole Blood 150 mg/dL (60-115)
--- NOTE | 2024-03-25 19:53 | PC.NURSE ---
Pt is confused and slightly verbally agressive towards family at bedside (family left). ST on monitor. oriented to person only. nonsequetor comments. c/o buttocks pain. repositioned to right side lying. in hospital bed. awaits bed assignment.
[2024-03-25 22:07] LABS: Glucose, Whole Blood 141 mg/dL (60-115)
--- NOTE | 2024-03-25 22:46 | PC.NURSE ---
RN to RN noemi Michele in [place]/ Pt transported by PCT Angle
--- NOTE | 2024-03-25 23:09 | MHC.EDTECH ---
THIS PCT JUST ASSUMED CARE OF PATIENT ,PATIENT WAS INCONIENT OF LARGE AMOUNT OF URINE ,BED BATH GIVEN AND BEDDING CHANGE ,PURE WICK IN PLACE ,VITALS TAKEN ,PATIENT A&O ,PATIENT WATCHING TELEVISION ,CALL DONOVAN WITHIN PATIENT REACH .
[2024-03-26] VITALS (9 sets, daily range): BP systolic 132–145; BP diastolic 64–74; PULSE 62–93; RESP 14–28; TEMP 36.2–37; O2SAT 90–98; BMI 40.3
[2024-03-26] MEDS: 0.9 % Sodium Chloride Flush 3 ML SYRINGE IVFLUSH ×4 (00:11→22:58)
--- NOTE | 2024-03-26 00:52 | PC.NURSE ---
Patient refused BiPAP, repeatedly taking the mask off; respiratory staff -Terence placed the patient on a 2L oxy mask, o2 92%. Frequent re-direction as pt continues to take off the mask and camera in the room. Pt comfortable at this time.
--- NOTE | 2024-03-26 01:42 | PC.NURSE ---
This RN assumed care at 1900, Pt Alert and orient to self/, able to speak full sentences. Pt is on 3L NC satting around 92%, lung sounds diminished throughout with expiratory wheezing, noted. Bruises noted to bilateral arms. Redness to coccyx, barrier cream being used. . Pt experiencing generalized moderate weakness. Pt resting with no apparent distress. Call chun within reach.
--- NOTE | 2024-03-26 04:41 | MHC.EDTECH ---
Patient was incontinent of urine ,care given ,bed pads change ,vitals taken ,Patient kept on removing oxygen mask ,Patient Observer at bed side .
[2024-03-26 05:33] LABS: MANUAL DIFF FLAG NO
[2024-03-26 05:38] LABS: Basophils Percent Auto 0.3 % (0-2); Hematocrit 41.4 % (37.0-47.0); Hemoglobin 12.2 g/dl (12.0-16.0); Imm Gran Abs Auto 0.03 X10*3/uL (0.00-0.03); Imm Gran Pct Auto 0.3 % (0.0-0.4); Lymphocytes Absolute Auto 1.4 X10*3/uL (1.2-4.9); Lymphocytes Percent Auto 15.2 % (20-40); Mean Corpuscular HGB Conc 29.5 g/dl (31.0-35.0); Mean Corpuscular Hemoglobin 28.6 pg (27.0-33.0); Mean Corpuscular Volume 97.2 fL (80.0-98.0); Mean Platelet Volume 10.4 fL (9.4-12.3); Monocytes Absolute Auto 0.7 X10*3/uL (0.1-1.2); Neutrophils Absolute Auto 6.8 x10*3/uL (2.0-8.3); Neutrophils Percent Auto 76.2 % (45-73); Platelet Count 216 X10*3/uL (160-400); Red Blood Count 4.26 X10*6/uL (4.20-5.50); Red Cell Distribution Width 13.5 % (11.0-16.0); White Blood Count 8.9 X10*3/uL (4.8-10.8)
[2024-03-26 05:51] LABS: Anion Gap 12 (12-20); Blood Urea Nitrogen 27 mg/dL (9-16); Calcium 8.9 mg/dL (8.4-10.2); Carbon Dioxide 32 mmol/L (22-29); Chloride 103 mmol/L (96-108); Creatinine Clr Calc Pharmacy 108.2; Estimated Glomerular Filt Rate > 60; Glucose Random 116 mg/dL (60-115); Sodium 143 mmol/L (135-145)
[2024-03-26] MEDS: Albuterol/Iprat 2.5/0.5MG 3 ML AMPUL.NEB INHALE ×4 (07:13→19:56)
[2024-03-26 07:52] LABS: Glucose, Whole Blood 95 mg/dL (60-115)
[2024-03-26] MEDS: methylPREDNISolone Sod Succ 40 MG/ML VIAL IVPUSH ×2 (08:23→18:04)
--- NOTE | 2024-03-26 08:57 | PC.NURSE ---
Pt denies complaints, just states I wanna go home.
--- NOTE | 2024-03-26 09:52 | PC.NURSE ---
Per MD Altamirano, pt doesnt not need treatment for acute UTI due to lack of fever and WBC.
--- NOTE | 2024-03-26 10:24 | PC.NURSE ---
Pt yelling that she wants to be discharged, wants to call the police. MD Butler made aware, stated pt could leave AMA if that's what she chooses.
--- NOTE | 2024-03-26 10:43 | PC.NURSE ---
Pt doesnt have clothes or a ride, agreeable to staying and being discharged in the morning.
--- NOTE | 2024-03-26 11:26 | HO.PM.IMPN ---
Subjective Subjective Date of Service: 03/26/24 Interval History: No acute nursing events overnight. Mentation improved. Continues to have wheezing. Physical Exam Vital Signs: Vital Signs: Last Vital Signs Temp 98.6 F 03/26/24 04:40 Pulse 78 03/26/24 07:15 Resp 16 03/26/24 07:15 BP 145/64 H 03/26/24 04:40 Pulse Ox 95 03/26/24 04:40 O2 Del Method Oxymask 03/26/24 04:40 O2 Flow Rate 2 03/26/24 04:40 FiO2 30 03/25/24 11:55 Oxygen Flow Rate 3 03/25/24 11:01 BMI result Body Mass Index 40.2 Obese female lying in bed in mild distress on supplemental oxygen Neck supple, no JVD Regular rate and rhythm, S1-S2 heard Decreased breath sounds with mild expiratory wheezing Abdomen soft nontender, no guarding, no rigidity Patient is awake, alert and oriented to self, disoriented to place, time and person ; no focal motor deficit Psych: Normal mood Bilateral pedal edema Objective Data Active Medications Acetaminophen (Acetaminophen 325 Mg Tablet) 650 mg PO Q6H PRN PRN Reason: Pain, Mild (Pain Scale 1-3), fever or headache Last Admin: 03/25/24 17:54 Dose: 650 mg Documented By: VELIA Albuterol/Ipratropium (Albuterol/Iprat 2.5/0.5mg 3 Ml Ampul.Neb) 3 ml INHALE RQ4H WHILE AWAKE [facility] Last Admin: 03/26/24 07:13 Dose: 3 ml Documented By: MARILEE Albuterol/Ipratropium (Albuterol/Iprat 2.5/0.5mg 3 Ml Ampul.Neb) 3 ml INHALE RQ4H PRN PRN Reason: Wheezing Calcium Carbonate (Calcium Carbonate 750 Mg Tab.Chew) 750 mg PO Q4H PRN PRN Reason: Heartburn Enoxaparin Sodium (Enoxaparin Sodium 40 Mg/0.4 Ml Syringe) 40 mg SUBCUT Q24H [facility] Last Admin: 03/25/24 17:09 Dose: 40 mg Documented By: VELIA Glucose (Glucose Gel 15 Gm Gel..Gram.) 15 gm PO Q15M PRN; Protocol PRN Reason: per Hypoglycemia Standing Ord. Dextrose (D10) 250 mls @ 750 mls/hr IV Q15M PRN; Protocol PRN Reason: per Hypoglycemia Standing Ord. Insulin Human Lispro (Insulin Lispro 100 Unit/Ml 3 Ml Vial) 0 unit SUBCUT QIDACHS [facility]; Protocol Last Admin: 03/26/24 07:58 Dose: Not Given Documented By: FAHAD Non-Admin Reason: No Insulin Coverage Comments: Glucose 95, below sliding scale. Insulin not given per order. Magnesium Hydroxide (Milk Of Magnesia 30 Ml Oral.Susp) 30 ml PO DAILY PRN PRN Reason: Constipation Melatonin (Melatonin 3 Mg Tablet) 6 mg PO BEDTIME PRN PRN Reason: Insomnia Methylprednisolone Sodium Succinate (Methylprednisolone Sod Succ 40 Mg/Ml Vial) 40 mg IVPUSH Q12H [facility] Last Admin: 03/26/24 08:23 Dose: 40 mg Documented By: FAHAD Ondansetron HCl (Ondansetron Hcl 4 Mg/2 Ml Vial) 4 mg IVPUSH Q8H PRN PRN Reason: Nausea and Vomiting Sodium Chloride (0.9 % Sodium Chloride Flush 3 Ml Syringe) 3 ml IVFLUSH QSHIFT [facility] Last Admin: 03/26/24 08:22 Dose: 3 ml Documented By: FAHAD Labs 03/26/24 05:24 03/26/24 05:24 Labs: Laboratory Results - last 24 hr 03/25/24 03/25/24 03/25/24 11:03 11:31 11:32 MCV 99.3 H MCH 29.0 MCHC 29.2 L RDW 13.4 Plt Count 215 MPV 10.3 Immature Gran % (Auto) 0.4 Neut % (Auto) 72.7 Lymph % (Auto) 15.8 L [place] % (Auto) 9.1 Eos % (Auto) 1.5 Baso % (Auto) 0.5 Lymph # (Auto) 1.3 [place] # (Auto) 0.8 Eos # (Auto) 0.1 Baso # (Auto) 0.0 Abs Immat Gran (auto) 0.03 Absolute Neuts (auto) 6.2 Absolute Nucleated RBC 0.000 Nucleated RBC % (auto) 0.0 PT INR APTT VBG pH VBG pCO2 VBG pO2 VBG HCO3 VBG O2 Saturation VBG Base Excess Anion Gap 10 L Estim Creat Clear Calc 106.8 Estimated GFR > 60 POC Glucose 107 Random Glucose 113 Lactic Acid Calcium 9.5 Total Bilirubin 0.2 AST 8 ALT 7 Alkaline Phosphatase 78 Troponin I High Sens 13.8 B-Natriuretic Peptide 51 Total Protein 7.0 Albumin 3.6 Urine Color Urine Appearance Urine pH Ur Specific [place] Urine Protein Urine Glucose (UA) Urine Ketones Urine Blood Urine Nitrite Ur Leukocyte Esterase Urine RBC Urine WBC Ur Squamous Epith Cells Urine Bacteria Hyaline Casts Influenza Type A (PCR) Influenza Type B (PCR) RSV RNA Qual (PCR) SARS-CoV-2 RNA (RT-PCR) 03/25/24 03/25/24 03/25/24 11:33 11:37 12:06 MCV MCH MCHC RDW Plt Count MPV Immature Gran % (Auto) Neut % (Auto) Lymph % (Auto) [place] % (Auto) Eos % (Auto) Baso % (Auto) Lymph # (Auto) [place] # (Auto) Eos # (Auto) Baso # (Auto) Abs Immat Gran (auto) Absolute Neuts (auto) Absolute Nucleated RBC Nucleated RBC % (auto) PT 11.8 INR 1.0 APTT 20.0 L VBG pH 7.27 L VBG pCO2 80 VBG pO2 63 VBG HCO3 37 H VBG O2 Saturation 91.0 VBG Base Excess 7.0 Anion Gap Estim Creat Clear Calc Estimated GFR POC Glucose Random Glucose Lactic Acid 0.7 Calcium Total Bilirubin AST ALT Alkaline Phosphatase Troponin I High Sens B-Natriuretic Peptide Total Protein Albumin Urine Color Urine Appearance Urine pH Ur Specific [place] Urine Protein Urine Glucose (UA) Urine Ketones Urine Blood Urine Nitrite Ur Leukocyte Esterase Urine RBC Urine WBC Ur Squamous Epith Cells Urine Bacteria Hyaline Casts Influenza Type A (PCR) Influenza Type B (PCR) RSV RNA Qual (PCR) SARS-CoV-2 RNA (RT-PCR) 03/25/24 03/25/24 03/25/24 12:37 13:36 15:12 MCV MCH MCHC RDW Plt Count MPV Immature Gran % (Auto) Neut % (Auto) Lymph % (Auto) [place] % (Auto) Eos % (Auto) Baso % (Auto) Lymph # (Auto) [place] # (Auto) Eos # (Auto) Baso # (Auto) Abs Immat Gran (auto) Absolute Neuts (auto) Absolute Nucleated RBC Nucleated RBC % (auto) PT INR APTT VBG pH 7.54 H VBG pCO2 37 VBG pO2 136 VBG HCO3 32 H VBG O2 Saturation 100.0 VBG Base Excess 9.5 Anion Gap Estim Creat Clear Calc Estimated GFR POC Glucose Random Glucose Lactic Acid Calcium Total Bilirubin AST ALT Alkaline Phosphatase Troponin I High Sens B-Natriuretic Peptide Total Protein Albumin Urine Color Dark Yellow Urine Appearance Clear Urine pH 5.5 Ur Specific [place] >= 1.030 H Urine Protein Trace Urine Glucose (UA) >=1000 H Urine Ketones Trace Urine Blood Negative Urine Nitrite Positive H Ur Leukocyte Esterase Negative Urine RBC 0-2 Urine WBC 6-10 H Ur Squamous Epith Cells 0-2 Urine Bacteria 4+ Hyaline Casts 0-2 Influenza Type A (PCR) NEGATIVE Influenza Type B (PCR) NEGATIVE RSV RNA Qual (PCR) NEGATIVE SARS-CoV-2 RNA (RT-PCR) NEGATIVE 03/25/24 03/25/24 03/26/24 18:22 22:04 05:24 MCV 97.2 MCH 28.6 MCHC 29.5 L RDW 13.5 Plt Count 216 MPV 10.4 Immature Gran % (Auto) 0.3 Neut % (Auto) 76.2 H Lymph % (Auto) 15.2 L [place] % (Auto) 8.0 Eos % (Auto) 0.0 Baso % (Auto) 0.3 Lymph # (Auto) 1.4 [place] # (Auto) 0.7 Eos # (Auto) 0.0 Baso # (Auto) 0.0 Abs Immat Gran (auto) 0.03 Absolute Neuts (auto) 6.8 Absolute Nucleated RBC 0.000 Nucleated RBC % (auto) 0.0 PT INR APTT VBG pH VBG pCO2 VBG pO2 VBG HCO3 VBG O2 Saturation VBG Base Excess Anion Gap 12 Estim Creat Clear Calc 108.2 Estimated GFR > 60 POC Glucose 150 H 141 H Random Glucose 116 H Lactic Acid Calcium 8.9 D Total Bilirubin AST ALT Alkaline Phosphatase Troponin I High Sens B-Natriuretic Peptide Total Protein Albumin Urine Color Urine Appearance Urine pH Ur Specific [place] Urine Protein Urine Glucose (UA) Urine Ketones Urine Blood Urine Nitrite Ur Leukocyte Esterase Urine RBC Urine WBC Ur Squamous Epith Cells Urine Bacteria Hyaline Casts Influenza Type A (PCR) Influenza Type B (PCR) RSV RNA Qual (PCR) SARS-CoV-2 RNA (RT-PCR) 03/26/24 07:49 MCV MCH MCHC RDW Plt Count MPV Immature Gran % (Auto) Neut % (Auto) Lymph % (Auto) [place] % (Auto) Eos % (Auto) Baso % (Auto) Lymph # (Auto) [place] # (Auto) Eos # (Auto) Baso # (Auto) Abs Immat Gran (auto) Absolute Neuts (auto) Absolute Nucleated RBC Nucleated RBC % (auto) PT INR APTT VBG pH VBG pCO2 VBG pO2 VBG HCO3 VBG O2 Saturation VBG Base Excess Anion Gap Estim Creat Clear Calc Estimated GFR POC Glucose 95 Random Glucose Lactic Acid Calcium Total Bilirubin AST ALT Alkaline Phosphatase Troponin I High Sens B-Natriuretic Peptide Total Protein Albumin Urine Color Urine Appearance Urine pH Ur Specific [place] Urine Protein Urine Glucose (UA) Urine Ketones Urine Blood Urine Nitrite Ur Leukocyte Esterase Urine RBC Urine WBC Ur Squamous Epith Cells Urine Bacteria Hyaline Casts Influenza Type A (PCR) Influenza Type B (PCR) RSV RNA Qual (PCR) SARS-CoV-2 RNA (RT-PCR) Assessment and Plan (1) COPD exacerbation: Status: Acute Plan This is a 63-year-old female with pertinent history of chronic hypoxemic respiratory failure due to COPD on 2-3 L supplemental oxygen at baseline, sick sinus syndrome status post pacemaker implantation, insulin-dependent diabetes mellitus, obesity, 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 #. Acute hypercapnic on chronic hypoxemic respiratory failure due to exacerbation of COPD in patient with SMILEY/OHS: Noncompliant with NIV at bedtime. Continue IV steroids. Scheduled and p.r.n. DuoNebs. Continue home inhaler. Continue NIV at bedtime #. Acute metabolic encephalopathy in the setting of hypercapnia. Resolved. #. Acute mild exacerbation of congestive heart failure with preserved ejection fraction: Initially on IV diuresis>> transitioned to p.o. Lasix. Strict I's and O's. BNP came be normal in obesity #. Stage I sacral decubitus injury: Consulted Wound Care #. Insulin-dependent diabetes mellitus: Initiated basal plus insulin regimen #. Hypertension: Continue home antihypertensives #. Mixed hyperlipidemia: Statin #. Morbid obesity: Diet and exercise #. Mood disorder: Continue home mood stabilizers #. Asymptomatic bacteriuria: WBC only 6-10 in urine. Patient without symptoms. No fever or leukocytosis. No indication for treatment DVT prophylaxis: Lovenox Full code Reason for continued hospitalization: Monitoring of respiratory status, IV steroids (as above), which is not possible in a lesser acute setting. Quality Stroke Does the patient have a stroke diagnosis?: No VTE Prior VTE?: No VTE Risk Level:: Medical - moderate - high VTE Device Contraindication: Treatment Not Indicated VTE Drug Contraindication: N/A - Med Ordered
[2024-03-26 11:37] LABS: Glucose, Whole Blood 130 mg/dL (60-115)
--- NOTE | 2024-03-26 12:18 | PC.NURSE ---
Pt eating lunch. Currently calm, cooperative.
[2024-03-26] MEDS: Furosemide 40 MG TABLET PO (12:24)
--- NOTE | 2024-03-26 15:09 | MHC.CLN ---
NUTRITION CONSULT FOR SKIN INTEGRITY. PATIENT WITH STAGE I TO SACRUM. NO ADDITIONAL NUTRITION INTERVENTIONS AT THIS TIME.
[2024-03-26 16:13] LABS: Glucose, Whole Blood 314 mg/dL (60-115)
[2024-03-26] MEDS: Insulin Lispro 100 UNIT/ML 3 ML VIAL SUBCUT ×2 (16:35→20:18)
[2024-03-26] MEDS: Acetaminophen 325 MG TABLET 650 MG PO (16:36)
[2024-03-26] MEDS: Enoxaparin Sodium 40 MG/0.4 ML SYRINGE SUBCUT (16:36)
[2024-03-26 19:35] LABS: Glucose, Whole Blood 346 mg/dL (60-115)
[2024-03-26] MEDS: Sennosides 8.6 MG TABLET 17.2 MG PO (20:19)
[2024-03-26] MEDS: Atorvastatin Calcium 80 MG TABLET PO (20:20)
[2024-03-26] MEDS: acetaZOLAMIDE 250 MG TABLET 500 MG PO (20:22)
[2024-03-26] MEDS: Erythromycin Base 0.5% Oph Oin 1 GM TUBE 2.54 CM EYE-BOTH (22:08)
[2024-03-27] VITALS (12 sets, daily range): BP systolic 144–183; BP diastolic 74–85; PULSE 60–89; RESP 16–25; TEMP 36.2–36.9; O2SAT 91–100
--- NOTE | 2024-03-27 00:30 | PC.NURSE ---
Pt continues to take CPAP off, satting around low 80s when off. Pt sounding more confused than earlier in the night, stating this is a hotel room. MD made aware, ordered STAT ABG's, RT at bedside, adjusted CPAP machine, and hugo ABG. Pt redirected to get CPAP back, pt satting around 94% now.
[2024-03-27 00:38] LABS: ABG Base Excess 8.5 mmol/L; ABG HCO3 35 mmol/L (22-26); ABG pCO2 56 mmHg (32-45); ABG pO2 69 mmHg (83-108)
[2024-03-27 01:54] LABS: ABG Refer to POC result
--- NOTE | 2024-03-27 04:08 | PC.NURSE ---
Pt refused CPAP and NC, and threatened to start hitting me if i kept telling her. I reinforced to pt that if she doesn't wear CPAP while she sleeps she can get brain damage or worse, pt stated let it happen then. Chris CORTEZ was able to get NC on pt dustin. made aware.
[2024-03-27 07:34] LABS: Glucose, Whole Blood 221 mg/dL (60-115)
[2024-03-27] MEDS: Albuterol/Iprat 2.5/0.5MG 3 ML AMPUL.NEB INHALE ×4 (08:01→20:01)
[2024-03-27] MEDS: methylPREDNISolone Sod Succ 40 MG/ML VIAL IVPUSH ×2 (08:12→19:14)
[2024-03-27] MEDS: Insulin Lispro 100 UNIT/ML 3 ML VIAL SUBCUT ×4 (08:14→21:24)
[2024-03-27] MEDS: modafiniL 100 MG TABLET PO (08:15)
[2024-03-27] MEDS: amLODIPine Besylate 5 MG TABLET PO (08:15)
[2024-03-27] MEDS: buPROPion HCl XL 300 MG TAB.ER.24H PO (08:15)
[2024-03-27] MEDS: Aspirin 81 MG TAB.CHEW PO (08:15)
[2024-03-27] MEDS: ARIPiprazole 2 MG TABLET PO (08:15)
[2024-03-27] MEDS: acetaZOLAMIDE 250 MG TABLET 500 MG PO ×2 (08:16→19:13)
[2024-03-27] MEDS: Sertraline HCL 100 MG TABLET 200 MG PO (08:16)
[2024-03-27] MEDS: Furosemide 40 MG TABLET PO (08:16)
[2024-03-27] MEDS: buPROPion HCl XL 150 MG TAB.ER.24H PO (08:16)
--- NOTE | 2024-03-27 08:24 | PC.NURSE ---
manual bp result 180/80, made aware, morning ordered medications given. No new orders at this time.
[2024-03-27] MEDS: 0.9 % Sodium Chloride Flush 3 ML SYRINGE IVFLUSH ×3 (08:53→22:55)
--- NOTE | 2024-03-27 08:59 | MHC.CM.PN ---
CM attempted to meet w/ patient at bedside. Patient tearful, states she is upset about being in the hospital. Unable to answer all CM questions at this time. IMM delivered. CM attempted to call /HCP. Mailbox full, unable to leave a message. Per chart review, patient is a LTC resident of [facility]. Essentially bedbound. Uses 2-3L O2 at baseline and BiPAP at night. HCP on file. PCP Tita Bal MD. DP: Return to [facility] via BLS when medically cleared. Return referral sent. CM will continue to follow.
[2024-03-27 11:14] LABS: Glucose, Whole Blood 431 mg/dL (60-115)
--- NOTE | 2024-03-27 11:23 | PC.NURSE ---
POC 431, MD alerted, 10 units given per orders. message sent to MD for follow up pertaining to ordered diet being cardiac without notes for dm
--- NOTE | 2024-03-27 14:56 | HO.PM.IMPN ---
Subjective Subjective Date of Service: 03/27/24 Interval History: Continues to remain noncompliant with overnight CPAP. No acute issues thus far Review of Systems Denies chest pain Denies shortness of breath Denies nausea vomiting diarrhea Denies fever chills Physical Exam Vital Signs: Vital Signs: Last Vital Signs Temp 97.2 F 03/27/24 07:24 Pulse 89 03/27/24 11:29 Resp 18 03/27/24 11:29 BP 180/80 H 03/27/24 08:15 Pulse Ox 98 03/27/24 07:24 O2 Del Method Nasal Cannula 03/27/24 07:24 O2 Flow Rate 5 03/27/24 07:24 FiO2 30 03/25/24 11:55 Oxygen Flow Rate 3 03/25/24 11:01 BMI result Body Mass Index 40.3 Const: Other: Awake alert no acute distress Resp: Other: Diminished throughout however clear Cardio: Other: No S4; positive S1-S2; no S3 murmurs rubs or gallops GI: Other: Obese nontender positive bowel sounds 4 quadrants Extrem: Other: Bilateral lower extremity edema Objective Data Active Medications Acetaminophen (Acetaminophen 325 Mg Tablet) 650 mg PO Q6H PRN PRN Reason: Pain, Mild (Pain Scale 1-3), fever or headache Last Admin: 03/26/24 16:36 Dose: 650 mg Documented By: SAMANTHA Acetazolamide (Acetazolamide 250 Mg Tablet) 500 mg PO BID [facility] Last Admin: 03/27/24 08:16 Dose: 500 mg Documented By: ALLISON Albuterol/Ipratropium (Albuterol/Iprat 2.5/0.5mg 3 Ml Ampul.Neb) 3 ml INHALE RQ4H WHILE AWAKE [facility] Last Admin: 03/27/24 11:29 Dose: 3 ml Documented By: NOREEN Albuterol/Ipratropium (Albuterol/Iprat 2.5/0.5mg 3 Ml Ampul.Neb) 3 ml INHALE RQ4H PRN PRN Reason: Wheezing Amlodipine Besylate (Amlodipine Besylate 5 Mg Tablet) 5 mg PO DAILY [facility]; Protocol Last Admin: 03/27/24 08:15 Dose: 5 mg Documented By: ALLISON Aripiprazole (Aripiprazole 2 Mg Tablet) 2 mg PO DAILY [facility] Last Admin: 03/27/24 08:15 Dose: 2 mg Documented By: ALLISON Aspirin (Aspirin 81 Mg Tab.Chew) 81 mg PO DAILY [facility] Last Admin: 03/27/24 08:15 Dose: 81 mg Documented By: ALLISON Atorvastatin Calcium (Atorvastatin Calcium 80 Mg Tablet) 80 mg PO BEDTIME [facility] Last Admin: 03/26/24 20:20 Dose: 80 mg Documented By: ELHAM Bupropion HCl (Bupropion Hcl Xl 150 Mg Tab.Er.24h) 150 mg PO DAILY [facility] [place] Last Admin: 03/27/24 08:16 Dose: 150 mg Documented By: ALLISON Bupropion HCl (Bupropion Hcl Xl 300 Mg Tab.Er.24h) 300 mg PO DAILY [facility] Last Admin: 03/27/24 08:15 Dose: 300 mg Documented By: ALLISON Calcium Carbonate (Calcium Carbonate 750 Mg Tab.Chew) 750 mg PO Q4H PRN PRN Reason: Heartburn Enoxaparin Sodium (Enoxaparin Sodium 40 Mg/0.4 Ml Syringe) 40 mg SUBCUT Q24H [facility] [place] Last Admin: 03/26/24 16:36 Dose: 40 mg Documented By: SAMANTHA Erythromycin (Erythromycin Base 0.5% Oph Oin 1 Gm Tube) 2.54 cm EYE-BOTH BEDTIME [facility] Last Admin: 03/26/24 22:08 Dose: 2.54 cm Documented By: ELHAM Comments: Furosemide (Furosemide 40 Mg Tablet) 40 mg PO DAILY [facility]; Protocol Last Admin: 03/27/24 08:16 Dose: 40 mg Documented By: ALLISON Glucose (Glucose Gel 15 Gm Gel..Gram.) 15 gm PO Q15M PRN; Protocol PRN Reason: per Hypoglycemia Standing Ord. Dextrose (D10) 250 mls @ 750 mls/hr IV Q15M PRN; Protocol PRN Reason: per Hypoglycemia Standing Ord. Insulin Human Lispro (Insulin Lispro 100 Unit/Ml 3 Ml Vial) 0 unit SUBCUT QIDACHS [facility]; Protocol Last Admin: 03/27/24 11:21 Dose: 10 unit Documented By: ALLISON Magnesium Hydroxide (Milk Of Magnesia 30 Ml Oral.Susp) 30 ml PO DAILY PRN PRN Reason: Constipation Melatonin (Melatonin 3 Mg Tablet) 6 mg PO BEDTIME PRN PRN Reason: Insomnia Methylprednisolone Sodium Succinate (Methylprednisolone Sod Succ 40 Mg/Ml Vial) 40 mg IVPUSH Q12H [facility] [place] Last Admin: 03/27/24 08:12 Dose: 40 mg Documented By: ALLISON Modafinil (Modafinil 100 Mg Tablet) 100 mg PO DAILY [facility] [place] Last Admin: 03/27/24 08:15 Dose: 100 mg Documented By: ALLISON Ondansetron HCl (Ondansetron Hcl 4 Mg/2 Ml Vial) 4 mg IVPUSH Q8H PRN PRN Reason: Nausea and Vomiting Polyethylene Glycol (Polyethylene Glycol 3350 17 Gm Powd.Pack) 17 gm PO DAILY PRN PRN Reason: Constipation Senna (Sennosides 8.6 Mg Tablet) 17.2 mg PO BEDTIME [facility] [place] Last Admin: 03/26/24 20:19 Dose: 17.2 mg Documented By: ELHAM Sertraline HCl (Sertraline Hcl 100 Mg Tablet) 200 mg PO DAILY [facility] [place] Last Admin: 03/27/24 08:16 Dose: 200 mg Documented By: ALLISON Sodium Chloride (0.9 % Sodium Chloride Flush 3 Ml Syringe) 3 ml IVFLUSH QSHIFT [facility] Last Admin: 03/27/24 08:53 Dose: 3 ml Documented By: ALLISON Tizanidine HCl (Tizanidine Hcl 4 Mg Tablet) 4 mg PO BEDTIME PRN PRN Reason: Muscle Spasm Labs 03/26/24 05:24 03/26/24 05:24 Labs: Laboratory Results - last 24 hr 03/26/24 03/26/24 03/27/24 16:06 19:16 00:29 O2 Saturation 94.0 ABG pH at Pt Temp 7.40 ABG pCO2 at Pt Temp 56 H ABG pO2 at Pt Temp 69 L ABG HCO3 35 H ABG Base Excess (Actual) 8.5 POC Glucose 314 H 346 H 03/27/24 03/27/24 07:20 11:06 O2 Saturation ABG pH at Pt Temp ABG pCO2 at Pt Temp ABG pO2 at Pt Temp ABG HCO3 ABG Base Excess (Actual) POC Glucose 221 H 431 H* Microbiology Microbiology Results: Microbiology 03/25/24 12:22 Blood Culture - Preliminary Blood - Venous No growth after 48 hours. 03/25/24 12:06 Blood Culture - Preliminary Blood - Venous No growth after 48 hours. 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 Noted to be hypercapnic secondary to noncompliance with CPAP 1.Acute hypercapnic on chronic hypoxemic respiratory failure due to exacerbation of COPD in patient with SMILEY/OHS -Noncompliant with NIV at bedtime -pulse dose steroids -DuoNebs as ordered -continue to encourage CPAP at night 2.Acute metabolic encephalopathy in the setting of hypercapnia -resolved -encourage CPAP at HS 3.Insulin-dependent diabetes mellitus -lispro correctional scale -continue basilar insulin as ordered -adjust as indicated 4.Hypertension -acceptable control on current therapies -adjust as indicated Lovenox Full code Requires ongoing hospitalization to treat COPD exacerbation with IV steroids and to ensure compliance with noninvasive ventilation. High risk for outpatient failure Quality Stroke Does the patient have a stroke diagnosis?: No VTE Prior VTE?: No VTE Risk Level:: Medical - moderate - high VTE Device Contraindication: Treatment Not Indicated VTE Drug Contraindication: N/A - Med Ordered
[2024-03-27 16:28] LABS: Glucose, Whole Blood 400 mg/dL (60-115)
[2024-03-27] MEDS: Enoxaparin Sodium 40 MG/0.4 ML SYRINGE SUBCUT (16:41)
[2024-03-27] MEDS: Atorvastatin Calcium 80 MG TABLET PO (19:13)
[2024-03-27] MEDS: Sennosides 8.6 MG TABLET 17.2 MG PO (19:13)
[2024-03-27] MEDS: Erythromycin Base 0.5% Oph Oin 1 GM TUBE 2.54 CM EYE-BOTH (19:14)
[2024-03-27 20:27] LABS: Glucose, Whole Blood 381 mg/dL (60-115)
--- NOTE | 2024-03-27 20:38 | PM.EVENT ---
Event Note Date of Service: 03/27/24 Event Note: Patient's BG has been markedly elevated. Insulin regimen changed to: sliding scale to resistant dosing, start Lantus 20 Units SC bedtime and lispro 5 Units SC with meals. Time Spent With Patient Time: Total time managing care of this patient today ____ minutes.
[2024-03-27] MEDS: Insulin Glargine,Hum.rec.anlog 100 UNIT/ML 10 ML VIAL 20 UNIT SUBCUT (21:24)
[2024-03-27] MEDS: LORazepam 0.5 MG TABLET 0.25 MG PO (22:21)
[2024-03-28] VITALS (10 sets, daily range): BP systolic 144–178; BP diastolic 70–89; PULSE 67–76; RESP 16–20; TEMP 36–36.2; O2SAT 90–95
--- NOTE | 2024-03-28 01:00 | PC.NURSE ---
Pt took off CPAP mask refusing to wear it, NC applied with 3L O2 satting 92%
[2024-03-28] MEDS: amLODIPine Besylate 10 MG TABLET PO ×2 (01:22→21:46)
[2024-03-28] MEDS: methylPREDNISolone Sod Succ 40 MG/ML VIAL IVPUSH ×2 (06:19→19:55)
[2024-03-28 06:30] LABS: MANUAL DIFF FLAG NO
[2024-03-28 06:41] LABS: Basophils Percent Auto 0.1 % (0-2); Hematocrit 41.2 % (37.0-47.0); Hemoglobin 12.4 g/dl (12.0-16.0); Imm Gran Abs Auto 0.04 X10*3/uL (0.00-0.03); Imm Gran Pct Auto 0.5 % (0.0-0.4); Lymphocytes Absolute Auto 1.1 X10*3/uL (1.2-4.9); Lymphocytes Percent Auto 14.7 % (20-40); Mean Corpuscular HGB Conc 30.1 g/dl (31.0-35.0); Mean Corpuscular Hemoglobin 27.9 pg (27.0-33.0); Mean Corpuscular Volume 92.6 fL (80.0-98.0); Mean Platelet Volume 10.5 fL (9.4-12.3); Monocytes Absolute Auto 0.6 X10*3/uL (0.1-1.2); Neutrophils Absolute Auto 5.9 x10*3/uL (2.0-8.3); Neutrophils Percent Auto 76.7 % (45-73); Platelet Count 213 X10*3/uL (160-400); Red Blood Count 4.45 X10*6/uL (4.20-5.50); Red Cell Distribution Width 13.4 % (11.0-16.0); White Blood Count 7.7 X10*3/uL (4.8-10.8)
[2024-03-28 06:52] LABS: Alanine Aminotransferase 9 U/L (0-31); Albumin Level 3.5 g/dL (3.5-5.0); Alkaline Phosphatase 62 U/L (39-117); Anion Gap 11 (12-20); Aspartate Amino Transferase 7 U/L (5-31); Bilirubin Total 0.2 mg/dL (0.0-1.0); Blood Urea Nitrogen 37 mg/dL (9-16); Calcium 9.2 mg/dL (8.4-10.2); Carbon Dioxide 32 mmol/L (22-29); Chloride 100 mmol/L (96-108); Creatinine Clr Calc Pharmacy 98.5; Estimated Glomerular Filt Rate > 60; Glucose Fasting 261 mg/dL (60-99); Sodium 139 mmol/L (135-145); Total Protein 6.8 g/dL (6.5-8.0)
[2024-03-28 07:23] LABS: Glucose, Whole Blood 232 mg/dL (60-115)
[2024-03-28] MEDS: Sertraline HCL 100 MG TABLET 200 MG PO (07:50)
[2024-03-28] MEDS: acetaZOLAMIDE 250 MG TABLET 500 MG PO ×2 (07:51→21:45)
[2024-03-28] MEDS: modafiniL 100 MG TABLET PO (07:51)
[2024-03-28] MEDS: buPROPion HCl XL 300 MG TAB.ER.24H PO (07:51)
[2024-03-28] MEDS: buPROPion HCl XL 150 MG TAB.ER.24H PO (07:51)
[2024-03-28] MEDS: Aspirin 81 MG TAB.CHEW PO (07:52)
[2024-03-28] MEDS: Furosemide 40 MG TABLET PO (07:52)
[2024-03-28] MEDS: ARIPiprazole 2 MG TABLET PO (07:52)
[2024-03-28] MEDS: Insulin Lispro 100 UNIT/ML 3 ML VIAL SUBCUT ×7 (07:52→21:47)
[2024-03-28] MEDS: 0.9 % Sodium Chloride Flush 3 ML SYRINGE IVFLUSH ×3 (07:55→22:02)
[2024-03-28] MEDS: Albuterol/Iprat 2.5/0.5MG 3 ML AMPUL.NEB INHALE ×4 (08:02→19:30)
[2024-03-28 11:09] LABS: Glucose, Whole Blood 344 mg/dL (60-115)
--- NOTE | 2024-03-28 12:19 | P.PNIM_ITS ---
Subjective Subjective Date of Service: 03/28/24 Interval History: No acute issues overnight. Still poor compliance with CPAP overnight Review of Systems Denies chest pain Denies shortness of breath Denies nausea vomiting diarrhea Denies fever chills Physical Exam 2 Vital Signs: Vital Signs: Last Vital Signs Temp 96.8 F 03/28/24 07:25 Pulse 72 03/28/24 11:27 Resp 19 03/28/24 11:27 BP 178/89 H 03/28/24 07:25 Pulse Ox 93 03/28/24 07:25 O2 Del Method Nasal Cannula 03/28/24 07:25 O2 Flow Rate 5 03/28/24 07:25 FiO2 30 03/25/24 11:55 Oxygen Flow Rate 3 03/25/24 11:01 BMI result Body Mass Index 40.3 Const: Other: Awake alert no acute distress Resp: Other: Diminished throughout however clear Cardio: Other: No S4; positive S1-S2; no S3 murmurs rubs or gallops GI: Other: Obese nontender positive bowel sounds 4 quadrants Extrem: Other: Bilateral lower extremity edema Objective Data Active Medications Acetaminophen (Acetaminophen 325 Mg Tablet) 650 mg PO Q6H PRN PRN Reason: Pain, Mild (Pain Scale 1-3), fever or headache Last Admin: 03/26/24 16:36 Dose: 650 mg Documented By: SAMANTHA Acetazolamide (Acetazolamide 250 Mg Tablet) 500 mg PO BID [facility] Last Admin: 03/28/24 07:51 Dose: 500 mg Documented By: ALLISON Albuterol/Ipratropium (Albuterol/Iprat 2.5/0.5mg 3 Ml Ampul.Neb) 3 ml INHALE RQ4H WHILE AWAKE [facility] Last Admin: 03/28/24 11:26 Dose: 3 ml Documented By: NOREEN Albuterol/Ipratropium (Albuterol/Iprat 2.5/0.5mg 3 Ml Ampul.Neb) 3 ml INHALE RQ4H PRN PRN Reason: Wheezing Amlodipine Besylate (Amlodipine Besylate 10 Mg Tablet) 10 mg PO BEDTIME [facility]; Protocol Last Admin: 03/28/24 01:22 Dose: 10 mg Documented By: ELHAM Aripiprazole (Aripiprazole 2 Mg Tablet) 2 mg PO DAILY [facility] Last Admin: 03/28/24 07:52 Dose: 2 mg Documented By: ALLISON Aspirin (Aspirin 81 Mg Tab.Chew) 81 mg PO DAILY [facility] Last Admin: 03/28/24 07:52 Dose: 81 mg Documented By: ALLISON Atorvastatin Calcium (Atorvastatin Calcium 80 Mg Tablet) 80 mg PO BEDTIME [facility] Last Admin: 03/27/24 19:13 Dose: 80 mg Documented By: ELHAM Bupropion HCl (Bupropion Hcl Xl 150 Mg Tab.Er.24h) 150 mg PO DAILY [facility] Last Admin: 03/28/24 07:51 Dose: 150 mg Documented By: ALLISON Bupropion HCl (Bupropion Hcl Xl 300 Mg Tab.Er.24h) 300 mg PO DAILY [facility] Last Admin: 03/28/24 07:51 Dose: 300 mg Documented By: ALLISON Calcium Carbonate (Calcium Carbonate 750 Mg Tab.Chew) 750 mg PO Q4H PRN PRN Reason: Heartburn Enoxaparin Sodium (Enoxaparin Sodium 40 Mg/0.4 Ml Syringe) 40 mg SUBCUT Q24H [facility] Last Admin: 03/27/24 16:41 Dose: 40 mg Documented By: ALLISON Erythromycin (Erythromycin Base 0.5% Oph Oin 1 Gm Tube) 2.54 cm EYE-BOTH BEDTIME [facility] Last Admin: 03/27/24 19:14 Dose: 2.54 cm Documented By: ELHAM Furosemide (Furosemide 40 Mg Tablet) 40 mg PO DAILY [facility]; Protocol Last Admin: 03/28/24 07:52 Dose: 40 mg Documented By: ALLISON Glucose (Glucose Gel 15 Gm Gel..Gram.) 15 gm PO Q15M PRN; Protocol PRN Reason: per Hypoglycemia Standing Ord. Dextrose (D10) 250 mls @ 750 mls/hr IV Q15M PRN; Protocol PRN Reason: per Hypoglycemia Standing Ord. Insulin Glargine (Insulin Glargine,Hum.Rec.Anlog 100 Unit/Ml 10 Ml Vial) 20 unit SUBCUT BEDTIME [facility] Last Admin: 03/27/24 21:24 Dose: 20 unit Documented By: ELHAM Insulin Human Lispro (Insulin Lispro 100 Unit/Ml 3 Ml Vial) 0 unit SUBCUT QIDACHS [facility]; Protocol Last Admin: 03/28/24 12:15 Dose: 10 unit Documented By: ALLISON Insulin Human Lispro (Insulin Lispro 100 Unit/Ml 3 Ml Vial) 5 unit SUBCUT QIDACHS [facility] Last Admin: 03/28/24 12:15 Dose: 5 unit Documented By: ALLISON Magnesium Hydroxide (Milk Of Magnesia 30 Ml Oral.Susp) 30 ml PO DAILY PRN PRN Reason: Constipation Melatonin (Melatonin 3 Mg Tablet) 6 mg PO BEDTIME PRN PRN Reason: Insomnia Methylprednisolone Sodium Succinate (Methylprednisolone Sod Succ 40 Mg/Ml Vial) 40 mg IVPUSH Q12H [facility] Last Admin: 03/28/24 06:19 Dose: 40 mg Documented By: ELHAM Modafinil (Modafinil 100 Mg Tablet) 100 mg PO DAILY [facility] Last Admin: 03/28/24 07:51 Dose: 100 mg Documented By: ALLISON Ondansetron HCl (Ondansetron Hcl 4 Mg/2 Ml Vial) 4 mg IVPUSH Q8H PRN PRN Reason: Nausea and Vomiting Polyethylene Glycol (Polyethylene Glycol 3350 17 Gm Powd.Pack) 17 gm PO DAILY PRN PRN Reason: Constipation Senna (Sennosides 8.6 Mg Tablet) 17.2 mg PO BEDTIME [facility] Last Admin: 03/27/24 19:13 Dose: 17.2 mg Documented By: ELHAM Sertraline HCl (Sertraline Hcl 100 Mg Tablet) 200 mg PO DAILY [facility] Last Admin: 03/28/24 07:50 Dose: 200 mg Documented By: ALLISON Sodium Chloride (0.9 % Sodium Chloride Flush 3 Ml Syringe) 3 ml IVFLUSH QSHIFT [facility] Last Admin: 03/28/24 07:55 Dose: 3 ml Documented By: ALLISON Tizanidine HCl (Tizanidine Hcl 4 Mg Tablet) 4 mg PO BEDTIME PRN PRN Reason: Muscle Spasm Labs 03/28/24 06:17 03/28/24 06:17 Labs: Laboratory Results - last 24 hr 03/27/24 03/27/24 03/28/24 16:15 20:22 06:17 MCV 92.6 MCH 27.9 MCHC 30.1 L RDW 13.4 Plt Count 213 MPV 10.5 Immature Gran % (Auto) 0.5 H Neut % (Auto) 76.7 H Lymph % (Auto) 14.7 L Hendricks % (Auto) 8.0 Eos % (Auto) 0.0 Baso % (Auto) 0.1 Lymph # (Auto) 1.1 L Hendricks # (Auto) 0.6 Eos # (Auto) 0.0 Baso # (Auto) 0.0 Abs Immat Gran (auto) 0.04 H Absolute Neuts (auto) 5.9 Absolute Nucleated RBC 0.000 Nucleated RBC % (auto) 0.0 Anion Gap 11 L Estim Creat Clear Calc 98.5 Estimated GFR > 60 POC Glucose 400 H* 381 H* Fasting Glucose 261 H Calcium 9.2 Total Bilirubin 0.2 AST 7 ALT 9 Alkaline Phosphatase 62 Total Protein 6.8 Albumin 3.5 03/28/24 03/28/24 07:14 11:06 MCV MCH MCHC RDW Plt Count MPV Immature Gran % (Auto) Neut % (Auto) Lymph % (Auto) Hendricks % (Auto) Eos % (Auto) Baso % (Auto) Lymph # (Auto) Hendricks # (Auto) Eos # (Auto) Baso # (Auto) Abs Immat Gran (auto) Absolute Neuts (auto) Absolute Nucleated RBC Nucleated RBC % (auto) Anion Gap Estim Creat Clear Calc Estimated GFR POC Glucose 232 H 344 H Fasting Glucose Calcium Total Bilirubin AST ALT Alkaline Phosphatase Total Protein Albumin Microbiology Microbiology Results: Microbiology 03/25/24 Unknown Urine Culture - Final Urine clean catch - Clean Catch Midstream Klebsiella pneumoniae 03/25/24 12:22 Blood Culture - Preliminary Blood - Venous No growth after 48 hours. 03/25/24 12:06 Blood Culture - Preliminary Blood - Venous No growth after 48 hours. 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 Noted to be hypercapnic secondary to noncompliance with CPAP 1.Acute hypercapnic on chronic hypoxemic respiratory failure due to exacerbation of COPD in patient with SMILEY/OHS -Noncompliant with NIV at bedtime... Encouraged same -pulse dose steroids -DuoNebs as ordered -continue to encourage CPAP at night.. Consider returned to rehab in a.m. if no change 2.Acute metabolic encephalopathy in the setting of hypercapnia -resolved -encourage CPAP at HS 3.Insulin-dependent diabetes mellitus -lispro correctional scale -continue basilar insulin as ordered... Insulin/diet adjusted 4.Hypertension -acceptable control on current therapies -adjust as indicated Lovenox Full code Requires ongoing hospitalization to treat COPD exacerbation with IV steroids and to ensure compliance with noninvasive ventilation. High risk for outpatient failure Quality Stroke Does the patient have a stroke diagnosis?: No VTE Prior VTE?: No VTE Risk Level:: Medical - moderate - high VTE Device Contraindication: Treatment Not Indicated VTE Drug Contraindication: N/A - Med Ordered
[2024-03-28 12:45] LABS: Estimated Average Glucose 194 mg/dL; Hemoglobin A1c % 8.4 % (<6.0)
[2024-03-28] MEDS: Enoxaparin Sodium 40 MG/0.4 ML SYRINGE SUBCUT (15:00)
[2024-03-28 15:24] LABS: Glucose, Whole Blood 336 mg/dL (60-115)
[2024-03-28 20:32] LABS: Glucose, Whole Blood 327 mg/dL (60-115)
[2024-03-28] MEDS: Atorvastatin Calcium 80 MG TABLET PO (21:44)
[2024-03-28] MEDS: Insulin Glargine,Hum.rec.anlog 100 UNIT/ML 10 ML VIAL 30 UNIT SUBCUT (21:46)
[2024-03-28] MEDS: Sennosides 8.6 MG TABLET 17.2 MG PO (21:46)
[2024-03-28] MEDS: Insulin Lispro 100 UNIT/ML 3 ML VIAL 8 UNIT SUBCUT (21:48)
[2024-03-28] MEDS: Erythromycin Base 0.5% Oph Oin 1 GM TUBE 2.54 CM EYE-BOTH (22:01)
[2024-03-29 01:57] VITALS: PULSE 74; RESP 24; O2SAT 92
[2024-03-29 02:56] VITALS: BP 141/70; PULSE 74; RESP 20; TEMP 36.1; O2SAT 91
[2024-03-29] MEDS: methylPREDNISolone Sod Succ 40 MG/ML VIAL IVPUSH (06:03)
[2024-03-29 07:39] LABS: Glucose, Whole Blood 270 mg/dL (60-115)
[2024-03-29] MEDS: Albuterol/Iprat 2.5/0.5MG 3 ML AMPUL.NEB INHALE ×2 (07:55→11:19)
[2024-03-29] MEDS: Insulin Lispro 100 UNIT/ML 3 ML VIAL 8 UNIT SUBCUT ×2 (07:58→11:40)
[2024-03-29] MEDS: Insulin Lispro 100 UNIT/ML 3 ML VIAL SUBCUT ×2 (07:58→11:40)
[2024-03-29 07:59] VITALS: BP 144/67; PULSE 62; RESP 18; O2SAT 93
[2024-03-29] MEDS: Sertraline HCL 100 MG TABLET 200 MG PO (07:59)
[2024-03-29] MEDS: Furosemide 40 MG TABLET PO (07:59)
[2024-03-29] MEDS: acetaZOLAMIDE 250 MG TABLET 500 MG PO (07:59)
[2024-03-29] MEDS: Aspirin 81 MG TAB.CHEW PO (07:59)
[2024-03-29] MEDS: buPROPion HCl XL 150 MG TAB.ER.24H PO (07:59)
[2024-03-29] MEDS: 0.9 % Sodium Chloride Flush 3 ML SYRINGE IVFLUSH (07:59)
[2024-03-29] MEDS: buPROPion HCl XL 300 MG TAB.ER.24H PO (07:59)
[2024-03-29] MEDS: ARIPiprazole 2 MG TABLET PO (07:59)
[2024-03-29] MEDS: modafiniL 100 MG TABLET PO (07:59)
[2024-03-29 08:00] VITALS: BP 144/67; PULSE 70; RESP 18; TEMP 36.1; O2SAT 93
--- NOTE | 2024-03-29 11:08 | P.DS_ITS ---
DS: Providers Provider Date of Service: 03/29/24 Date of admission: 03/25/24 15:46 Date of discharge: 03/29/24 Primary care physician: Tita Bal MD Consults: 03/26/24 13:29 Consult to Wound Care Routine Reason for consultation: redness to buttocks DS: Diagnosis Discharge Diagnosis (1) Acute and chronic respiratory failure with hypercapnia: Status: Acute (2) COPD exacerbation: Status: Acute DS: Summary Hospital Course Hospital Course: 63-year-old female with pertinent history of chronic hypoxemic respiratory failure due to COPD on 2-3 L supplemental oxygen at baseline, sick sinus syndrome status post pacemaker implantation, insulin-dependent diabetes mellitus, obesity, 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 As per the , patient was altered and she gets confused if she does not use her NIV at night. Patient was recently admitted for acute metabolic encephalopathy due to hypercapnia. Patient admits wheezing but denies cough. Unable to obtain review of systems. In the emergency department, ABG revealed respiratory acidosis. Patient was placed on BiPAP initially for respiratory acidosis. Hospital Course Patient admitted to general medical floor and encouraged NIV at HS. Over the course of the next 4872 hours her mentation improved secondary to NIV use. Her labs essentially normalized; urine was obtained and ultimately grew out multidrug resistant Klebsiella however compared to previous urine this is likely colonization. She has no white count or fever during this hospitalization nor did she complain of dysuria symptoms. At this point in time she is medically acceptable for transfer back to SNF; needs to be monitored and encouraged to use an NIV overnight. Time Attestation Discharge Coordination Time (in mins): 35 Quality: Safe Use of Opioids Does Pt have an Active Cancer Diagnosis on the Problem List?: No Quality: Stroke Does the patient have a stroke diagnosis?: No Physical Exam Vital Signs: Vital Signs: Last Vital Signs Temp 97.0 F 03/29/24 08:00 Pulse 70 03/29/24 08:00 Resp 18 03/29/24 08:00 BP 144/67 H 03/29/24 08:00 Pulse Ox 93 03/29/24 08:00 O2 Del Method Nasal Cannula 03/29/24 08:00 O2 Flow Rate 5 03/29/24 08:00 FiO2 30 03/25/24 11:55 Oxygen Flow Rate 3 03/25/24 11:01 BMI result Body Mass Index 40.3 Const: Other: Awake alert no acute distress Resp: Other: Diminished throughout however clear Cardio: Other: No S4; positive S1-S2; no S3 murmurs rubs or gallops GI: Other: Obese nontender positive bowel sounds 4 quadrants Extrem: Other: Bilateral lower extremity edema DS: Data Data Completed and Pending Completed studies during hospitalization [Text1]: Procedures Assistance with Respiratory Ventilation, Less than 24 Consecutive Hours, Continuous Positive Airway Pressure (02/16/24) Insertion of Endotracheal Airway into Trachea, Via Natural or Artificial Opening (11/18/21) Insertion of Infusion Device into Superior Vena Cava, Percutaneous Approach (11/18/21) Introduction of Vasopressor into Peripheral Vein, Percutaneous Approach (11/18/21) Respiratory Ventilation, 24-96 Consecutive Hours (11/18/21) Ultrasonography of Superior Vena Cava, Guidance (11/18/21) Labs on day of discharge: Laboratory Results - last 24 hr 03/28/24 03/28/24 03/28/24 06:17 11:06 15:17 POC Glucose 344 H 336 H Estimat Average Glucose 194 Hemoglobin A1c % 8.4 H 03/28/24 03/29/24 20:25 07:32 POC Glucose 327 H 270 H Estimat Average Glucose Hemoglobin A1c % Preliminary micro results at discharge 03/25/24 12:22 Blood Culture - Preliminary Blood - Venous No growth after 48 hours. 03/25/24 12:06 Blood Culture - Preliminary Blood - Venous No growth after 48 hours. Discharge Plan Discharge Anticipated Discharge Date/Time: 03/29/24 11:00 Patient Disposition: er [facility] Discharge Diagnosis: acute metabolic encephalopathy Referrals: Tita Bal MD [Primary Care Provider] - 1 Week Discharge Medications: New insulin glargine [Lantus U-100 Insulin] 100 unit/mL Solution 30 unit subcut BEDTIME Qty: 10 0RF prednisone 20 mg tablet See Rx Instructions .Route .COMPLEX Qty: 18 0RF Rx Instructions: 20 mg orally; 3 tabs daily for 3 days, 2 tabs daily for 3 days, 1 tab daily for 3 days Continued furosemide 40 mg Tablet 40 mg PO DAILY Qty: 30 0RF Protocol: Hold for SBP< HOLD for SBP < : 90 ipratropium-albuterol 0.5 mg-3 mg(2.5 mg base)/3 mL Solution For Nebulization 3 ml INHALATION TID potassium chloride 10 mEq Tablet Extended Release 10 meq PO DAILY Hold Instructions: Recheck K level in 1 week to decide if needed or not. Culturelle 10 billion cell Capsule 1 cap PO BID bupropion HCl 150 mg tablet extended release 24 hr 1 tab PO DAILY Rx Instructions: take with 300mg; tdd 450mg Fleet Enema 19-7 gram/118 mL Enema 118 ml [place] DAILY PRN (Reason: Constipation) Rx Instructions: (STEP 3) IF NO BOWEL MOVEMENT 8 HOURS AFTER BISACODYL atorvastatin 80 mg Tablet 80 mg PO BEDTIME sennosides [senna] 8.6 mg Tablet 17.2 mg PO BEDTIME acetaminophen 325 mg Tablet 325 mg PO Q4H PRN (Reason: Fever Or Pain) tizanidine 4 mg Tablet 4 mg PO BEDTIME PRN (Reason: Muscle Spasm) sertraline 100 mg Tablet 200 mg PO DAILY melatonin 3 mg Tablet 3 mg PO BEDTIME ferrous sulfate 325 mg (65 mg iron) Tablet 325 mg PO DAILY insulin lispro 100 unit/mL Insulin Pen See Protocol SUBCUT QIDAS Protocol: Insulin Correction Scale Less than or equal to 110 ---- Give (units): 0 111 to 150 Give (units): 0 151 to 200 Give (units): 0 201 to 250 Give (units): 4 251 to 300 Give (units): 6 301 to 350 Give (units): 8 Greater than 350 Give (units): 10 Call MD if Blood Glucose > : 350 Rx Instructions: SLIDING SCALE IF BLOOD GLUCOSE GREATER THAN 400, GIVE 12 UNITS AND NOTIFY MD amlodipine 5 mg Tablet 5 mg PO DAILY 30 Days Qty: 30 0RF Protocol: Hold for SBP< HOLD for SBP < : 90 aspirin 81 mg Tablet,Chewable 81 mg PO DAILY acetazolamide 250 mg Tablet 500 mg PO BID Qty: 60 0RF losartan 25 mg tablet 25 mg PO DAILY cholecalciferol (vitamin D3) 25 mcg (1,000 unit) Tablet 25 mcg PO DAILY olopatadine 0.2 % Drops 1 drp OPHTHALMIC (EYE) QSHIFT Rx Instructions: both eyes megestrol 400 mg/10 mL (40 mg/mL) suspension 400 mg PO TID insulin glargine [Lantus U-100 Insulin] 100 unit/mL solution 25 unit subcut DAILY erythromycin 5 mg/gram (0.5 %) ointment 1 inch ophthalmic (eye) BEDTIME Rx Instructions: End date 03-31-24 metformin 500 mg tablet 500 mg PO BID Ozempic 0.25 mg or 0.5 mg (2 mg/3 mL) pen injector 0.5 mg subcut WE magnesium hydroxide [Milk of Magnesia] 400 mg/5 mL Suspension 30 ml PO DAILY PRN (Reason: Constipation) Rx Instructions: (step 1) If no bowel movement for 3 days. aripiprazole 2 mg tablet 2 mg PO DAILY spironolactone 25 mg Tablet 25 mg PO DAILY Qty: 30 0RF Protocol: Hold for SBP< HOLD for SBP < : 90 magnesium citrate Solution 300 ml PO DAILY PRN (Reason: Constipation) Patient Comments: If no bowel movement in 12 hours after polyethylene glycol 3350 [Miralax] 17 gram/dose Powder 17 g PO DAILY PRN (Reason: Constipation) Jardiance 25 mg tablet 25 mg PO DAILY fluticasone propion-salmeterol 113-14 mcg/actuation aerosol powdr breath activated 1 inh inhalation DAILY Rx Instructions: Rinse mouth with water after use and spit out. modafinil [Provigil] 100 mg Tablet 100 mg PO DAILY Qty: 30 0RF bisacodyl 10 mg suppository 10 mg [place] DAILY PRN (Reason: Constipation) Rx Instructions: GIVE IF NO RESULT FROM MILK OF MAGNESIA cyanocobalamin (vitamin B-12) 1,000 mcg capsule 1,000 mcg PO DAILY bupropion HCl 300 mg tablet extended release 24 hr 300 mg PO DAILY Rx Instructions: take with 150mg dose; tdd 450mg Discharge Orders: Discharge Order (Routine); Ordered 03/29/24 Ordered By: Alejandro Bacon Diet: Advance to usual diet Activity on Discharge: As tolerated Stand Alone Forms: Patient Portal Discharge page Print Language: Bengali Care Plan Goals: resume all pre-hospital medications and treatments Health Concerns: complete course of prednisone taper as ordered Plan of Treatment: encourage compliance with noninvasive ventilation at night and when napping Assessment: see discharge summary
[2024-03-29 11:19] VITALS: PULSE 74; RESP 19; O2SAT 95
[2024-03-29 11:25] LABS: Glucose, Whole Blood 374 mg/dL (60-115)
--- NOTE | 2024-03-29 11:25 | MHC.CM.PN ---
pt dcd to cday to [facility] at 1 message left for sister grabiel bridger dc unable to reach hcp
--- NOTE | 2024-03-29 14:39 | HO.WOUND ---
Wound Consult: Initial 63yr old? Female admitted to [facility] on - See progress notes and H&P for detailed history.? Wound consult placed for Buttock, POA.? Patient agreeable to assessment and photo documentation.? Patient reports she has had wounds to her buttock for several weeks now - she reports they use creams at the facility where she lives. She is not able to recall the creams that are in use. Buttock, posterior thigh and perineal area Etiology: ?MASD (Moisture Associated Skin Damage) - Chronic MASD Wound Bed: red purple blanchable tissue with scattered areas of partial thickness tissue loss Drainage / Odor: None noted Edges: ? irregular Miryam wound: ? Intact - No Induration, Fluctuance or Warmth noted Pain: patient reports pain and tenderness Goals of Treatment: ? Triad to allow for moist wound healing and to protect from moisture and friction Recommendations: 1. Turn and Reposition every 2 hours and as needed for patient comfort.? Use pillows or wedges to support off loading positions. 2. Off Load all bony prominences with use of pillows and heel boots if needed.? Apply Preventative foams where needed. ? 3. Monitor for incontinence and moisture control, use barrier creams when needed for prevention and treatment. 4. Provide adequate and supplemental nutrition.? 5. Order or Continue low air loss mattress. Bariatric bed. 6. When applicable maintain blood glucose levels per Providers order. 7. Buttock - Off Load Pressure - Cleanse with PH balance spray or wipes, pat dry. ?Apply thin layer of Triad to wound bed - only pat and dab no scrub and rub when soiling occurs. Reapply thin layer PRN after each episode of incontinence.
--- NOTE | 2024-03-29 18:32 | P.CDIM_ITS ---
PROVIDER RESPONSE TEXT: To clarify, the appropriate diagnosis supported by the clinical indicators: Diagnosis was ruled out QUERY TEXT: PHYSICIAN'S DOCUMENTATION REQUEST Date of Query: 03/29/2024 10:10 AM EDT Patient Name: Bonnie Das Admit Date: 03/25/2024 Dear Alejandro Bacon, A review of the medical record indicates additional documentation may be needed. Please review below and update the documentation accordingly. Clinical Indicators: Progress note with in the Assessment and Plan: 03/27 - Acute UTI UA - positive Nitrite, Urine WBC 6/10 H, dark yellow urine Please clarify the following: UTI if diagnosis is being treated this admission: Diagnosis was present on admission and is now resolved Diagnosis was present on admission and is still being monitored, evaluated, or treated Diagnosis was ruled out Diagnosis is still a likely, suspected, probable diagnosis Other (explain) Clinically unable to determine (explain) Thank you, Shanita Contreras, CCS, CDIS Use of terms such as suspected, likely, concern for, or probable (associated with a specific diagnosi s that is being evaluated, monitored, or treated as if it exists) are acceptable and can be coded in the inpatient se tting, when documented at the time of discharge. Please use your independent medical judgment in providing your response. THIS QUERY IS PART OF THE PERMANENT MEDICAL RECORD
--- NOTE | 2024-03-29 18:32 | P.CDIM_ITS ---
PROVIDER RESPONSE TEXT: To clarify, the appropriate diagnosis supported by the clinical indicators: Diabetes mellitus with hyperglycemia QUERY TEXT: PHYSICIAN'S DOCUMENTATION REQUEST Date of Query: 03/29/2024 08:03 AM EDT Patient Name: Bonnie Das Admit Date: 03/25/2024 Dear Alejandro Bacon, A review of the medical record indicates additional documentation may be needed. Please review below and update the documentation accordingly. Clinical Indicators: LABS: POC glucose 221 H 431 H Event note: Patient's BG has been markedly elevated. Insulin regimen changed. Lispro correctional sca le. Insulin Please clarify the following regarding the Complications of Diabetes Mellitus (DM): Diabetes mellitus with hyperglycemia Other Other (explain) Clinically unable to determine (explain) Thank you, Shanita Contreras, CCS, CDIS Use of terms such as suspected, likely, concern for, or probable (associated with a specific diagnosi s that is being evaluated, monitored, or treated as if it exists) are acceptable and can be coded in the inpatient se tting, when documented at the time of discharge. Please use your independent medical judgment in providing your response. THIS QUERY IS PART OF THE PERMANENT MEDICAL RECORD
== END 2024-03-29 14:10 | DRG 190 ==
LOC: HO.ED 15:09 → HO.EDOVER 15:55 → HO.S3 03-26 12:05
PROVIDERS: Internal Medicine; Admitting Provider Student in an Organized Health Care Education/Training Program; Emergency Provider Emergency Medicine; PCP Internal Medicine; Visit Provider Hospitalist
DX: J44.1 Chronic obstructive pulmonary disease with (acute) exacerbation (principal); G93.41 Metabolic encephalopathy; J96.21 Acute and chronic respiratory failure with hypoxia; J96.22 Acute and chronic respiratory failure with hypercapnia; I50.33 Acute on chronic diastolic (congestive) heart failure; E66.2 Morbid (severe) obesity with alveolar hypoventilation; Z68.41 Body mass index [BMI] 40.0-44.9, adult; I49.5 Sick sinus syndrome; I11.0 Hypertensive heart disease with heart failure; E78.2 Mixed hyperlipidemia; F39 Unspecified mood [affective] disorder; E11.65 Type 2 diabetes mellitus with hyperglycemia; L89.151 Pressure ulcer of sacral region, stage 1; Z20.822 Contact with and (suspected) exposure to COVID-19; Z91.199 Patient's noncompliance with other medical treatment and regimen due to unspecified reason; Z99.81 Dependence on supplemental oxygen; Z95.0 Presence of cardiac pacemaker; Z87.891 Personal history of nicotine dependence; Z91.040 Latex allergy status; Z79.51 Long term (current) use of inhaled steroids; Z79.82 Long term (current) use of aspirin; Z79.84 Long term (current) use of oral hypoglycemic drugs; Z79.85 Long-term (current) use of injectable non-insulin antidiabetic drugs; Z79.899 Other long term (current) drug therapy
CPT/HCPCS: 0241U; 36415; 36600; 71045; 80048; 80053; 81001; 82803; 82947; 83036; 83605; 83880; 84484; 85025; 85610; 85730; 87040; 87086; 87088; 87186; 93005; 94640; 94660; 99285; J0456; J1335; J1650; J1940; J2919

== ENCOUNTER → 2024-03-25 11:17 | Outpatient (BNV) | payer MEDICARE, MEDICAID, SELFPAY | PROVIDERS: Admitting Provider Student in an Organized Health Care Education/Training Program; Emergency Provider Emergency Medicine; PCP Internal Medicine; Visit Provider Internal Medicine Cardiovascular Disease | DX: R94.31 Abnormal electrocardiogram [ECG] [EKG] (principal) | CPT/HCPCS: 93010 ==

== ENCOUNTER → 2024-03-25 15:46 | Outpatient (BNV) | payer MEDICARE, MEDICAID, SELFPAY | PROVIDERS: Admitting Provider Student in an Organized Health Care Education/Training Program; Emergency Provider Emergency Medicine; PCP Internal Medicine; Visit Provider Student in an Organized Health Care Education/Training Program | DX: J44.1 Chronic obstructive pulmonary disease with (acute) exacerbation (principal); J96.22 Acute and chronic respiratory failure with hypercapnia | CPT/HCPCS: 99223; 99233; 99239; 99499 ==

== ENCOUNTER 2024-04-22 17:24 | Emergency (ER) | payer MEDICARE, SELFPAY ==
--- NOTE | ~2024-04-22 | CT_ITS ---
EXAMINATION: CT ANGIOGRAM HEAD CT ANGIOGRAM NECK CLINICAL INFORMATION: nystagmus COMPARISON: CT head 01/04/2022 TECHNIQUE: Test bolus sequences followed by intravenous administration 70 mL of Omnipaque 350. Helical imaging was performed in the axial plane from the aortic arch to the skull vertex. Delayed postcontrast imaging of the head was also performed. The data was processed at the 3d technologist's workstation for generation of MIP sequences. Angled MIPs and volume rendered reformatted images were also generated at an offline 3D workstation. Stenoses are assessed in accordance with Hinson et al. Quantification of Carotid Stenosis on CT Angiography. AJR 2006. 27(1):13-19. [address] CT examination was performed using dose optimization techniques as appropriate, variously including the following: *Automated exposure control *Adjustment of mA and/or kV according to patient size (this includes techniques or standardized protocols for targeted exams where dose is matched to indication/reason for exam; i.e. extremities or head) *Use of iterative reconstruction technique DLP: 2605 mGy-cm FINDINGS: CT HEAD: Mild generalized parenchymal volume loss. Patchy periventricular and deep white matter hypoattenuation is nonspecific but most suggestive of mild chronic microangiopathy. No territorial loss of schmitt-white differentiation. No acute intracranial hemorrhage or extra-axial fluid collection. No mass lesion, significant mass effect, or herniation pattern. No pathologic intra-axial enhancement or regional oligemia. The orbits are grossly normal. Moderate polypoid opacification of the couple posterior left ethmoid air cells otherwise mild patchy paranasal sinus mucosal thickening. No mastoid effusion. Osseous structures are intact. CTA HEAD: Motion degraded examination. No hemodynamically significant stenosis or occlusion in the anterior or posterior circulation. No aneurysms and no high flow vascular malformations. Timing of the contrast bolus allows assessment of the major dural venous sinuses, which all opacify normally CTA NECK: Two vessel branching pattern of the arch with left common carotid artery arising from the brachiocephalic trunk. The left vertebral artery is dominant. Nondiagnostic assessment of the proximal cervical vasculature related to artifact from patient's body habitus and streak artifact from left chest wall pacemaker. Preserved contrast filling of the mid to distal common carotid arteries, carotid bifurcations, internal carotid arteries, and bilateral vertebral arteries beyond the mid V2 segments. Retropharyngeal course of the right common carotid and proximal right internal carotid arteries. CT NECK: Enlarged heterogeneous thyroid gland, particularly of the right thyroid lobe, not diagnostically assessed due to artifact. Left chest wall pacemaker in place. 7 mm esophageal diverticulum on the right at the level of the thoracic inlet. Partially imaged patulous esophagus with air-fluid level, predisposing to aspiration. Redundancy and anterior bowing of the posterior membranous wall of the trachea opposing the ventral esophageal wall. Partially imaged apparent tracheobronchomalacia versus artifact. Improved patchy consolidation throughout the lungs when compared to chest CT from 11/18/2021, noting persistent bandlike opacity in the right upper lobe, which may reflect subsegmental atelectasis. Advanced cervical spondylosis. Apparent moderate to severe spinal canal stenosis at C4-C5. Multilevel uncovertebral and facet joint hypertrophy contribute to varying degrees of high-grade neural foraminal narrowing. CT/CT angio head neck IMPRESSION: 1. No acute intracranial findings. 2. No large vessel occlusion or flow-limiting stenosis within the intracranial or cervical vasculature, noting nondiagnostic assessment of the proximal cervical vasculature. 3. Enlarged heterogeneous thyroid gland, particularly of the right thyroid lobe, not diagnostically assessed due to artifact; consider further evaluation with thyroid ultrasound on a nonemergent basis. 4. Partially imaged patulous esophagus with air-fluid level, predisposing to aspiration. 5. Partially imaged apparent tracheobronchomalacia versus artifact. Improved patchy consolidation throughout the lungs when compared to chest CT from 11/18/2021, noting persistent bandlike opacity in the right upper lobe, which may reflect subsegmental atelectasis. 6. Advanced cervical spondylosis. This critical result was discussed with Parviz Michele MD at 8:26 PM on 04/22/2024 and it was ascertained that the content and urgency of the report was understood at the time of direct communication.
--- NOTE | ~2024-04-22 | XR_ITS ---
EXAMINATION: CHEST 2 VIEWS CLINICAL INFORMATION: Infectious workup. COMPARISON: 03/25/2024. TECHNIQUE: AP frontal and lateral views of the chest obtained FINDINGS: Lungs are hypoexpanded with linear left basilar markings suggesting scarring or atelectasis, similar to the prior study. No superimposed focal infiltrate, effusion, edema, or pneumothorax. Cardiac silhouette within normal limits for size. Dual-lead pacemaker is again seen with lead tips overlying expected right atrium and right ventricle. No acute bony abnormality. XR/XR chest 2V IMPRESSION: Chronic appearing changes similar to the prior study. No acute superimposed process.
[2024-04-22 17:43] VITALS: BP 108/73; PULSE 90; RESP 20; TEMP 37.2; O2SAT 99
[2024-04-22 17:50] VITALS: BP 104/75; PULSE 94; O2SAT 94; BMI 42.7
--- NOTE | 2024-04-22 17:56 | ECG_ITS ---
Test Reason : evaluation Blood Pressure : / mmHG Vent. Rate : 087 BPM Atrial Rate : 087 BPM P-R Int : 178 ms QRS Dur : 178 ms QT Int : 430 ms P-R-T Axes : 033 -63 072 degrees QTc Int : 517 ms Atrial-sensed ventricular-paced rhythm Abnormal ECG When compared with ECG of 25-MAR-2024 11:17, Vent. rate has increased BY 11 BPM Referred By: Parviz Michele Electronically Signed By:MAREN VIDALES MD
--- NOTE | 2024-04-22 18:06 | ED_ITS ---
HPI - General Adult General Chief complaint: General Medical Stated complaint: nausea, dizzy when looking to L side Time Seen by Provider: 04/22/24 17:55 Source: old records reviewed and other History of Present Illness ED Provider: Leny MCCULLOUGH narrative: 63-year-old female with past medical history of chronic hypoxemic respiratory failure 2/2 COPD on 2-3L, sick sinus syndrome s/p pacemaker, DMs, obesity, SMILEY/OHS, hypertension, mood disorder, HFpEF - present for dizziness - patient seems to be confused and is unable to provide a reliable history. She states that she was hanging out with a friend on 2nd floor [facility] and she was reaching for something when she fell and hit her head. This does not appear to be true. I called patient's facility spoke with staff who states that patient has been experiencing intermittent confusion for approximately 6 months. - per staff pt was complaining of dizziness every time she turned her head to the left. Patient was evaluated by PA today who felt that patient needed a CT scan to rule out CVA due to nystagmus on exam. Pt was confused and dangling out of bed today however there were no falls. - patient's only current complaints are neck pain Related Data Home Medications ?Medication ?Instructions ?Recorded ?Confirmed acetaminophen 325 mg tablet 325 mg PO Q4H PRN Fever Or Pain 11/18/21 03/25/24 atorvastatin 80 mg tablet 80 mg PO BEDTIME 11/18/21 03/25/24 ferrous sulfate 325 mg (65 mg 325 mg PO DAILY 11/18/21 03/25/24 iron) tablet insulin lispro 100 unit/mL See Protocol subcut QIDACHS 11/18/21 03/25/24 subcutaneous pen melatonin 3 mg tablet 3 mg PO BEDTIME 11/18/21 03/25/24 sennosides 8.6 mg tablet (senna) 17.2 mg PO BEDTIME 11/18/21 03/25/24 sertraline 100 mg tablet 200 mg PO DAILY 11/18/21 03/25/24 tizanidine 4 mg tablet 4 mg PO BEDTIME PRN Muscle Spasm 11/18/21 03/25/24 aspirin 81 mg chewable tablet 81 mg PO DAILY 01/05/22 03/25/24 bupropion HCl 300 mg 24 hr tablet, 300 mg PO DAILY 04/09/22 03/25/24 extended release Lactobacillus rhamnosus GG 10 1 cap PO BID 10/09/22 03/25/24 billion cell capsule (Culturelle) bupropion HCl 150 mg 24 hr tablet, 1 tab PO DAILY 10/09/22 03/25/24 extended release ipratropium 0.5 mg-albuterol 3 mg 3 ml inhalation TID wheezing 10/09/22 03/25/24 (2.5 mg base)/3 mL nebulization soln potassium chloride 10 mEq 10 meq PO DAILY 10/09/22 03/25/24 tablet,extended release bisacodyl 10 mg rectal suppository 10 mg NJ DAILY PRN Constipation 10/21/22 03/25/24 sodium phosphates 19 gram-7 118 ml NJ DAILY PRN Constipation 11/09/22 03/25/24 gram/118 mL enema (Fleet Enema) metformin 500 mg tablet 500 mg PO BID 12/27/22 03/25/24 semaglutide 0.25 mg or 0.5 mg (2 0.5 mg subcut WE 12/27/22 03/25/24 mg/3 mL) subcutaneous pen injector (Ozempic) cholecalciferol (vitamin D3) 25 25 mcg PO DAILY 04/04/23 03/25/24 mcg (1,000 unit) tablet insulin glargine 100 unit/mL 25 unit subcut DAILY 04/04/23 03/25/24 subcutaneous solution (Lantus U-100 Insulin) losartan 25 mg tablet 25 mg PO DAILY 04/04/23 03/25/24 megestrol 400 mg/10 mL (40 mg/mL) 400 mg PO TID 04/04/23 03/25/24 oral suspension olopatadine 0.2 % eye drops 1 drp ophthalmic (eye) QSHIFT 04/04/23 03/25/24 cyanocobalamin (vitamin B-12) 1,000 mcg PO DAILY 04/21/23 03/25/24 1,000 mcg capsule magnesium hydroxide 400 mg/5 mL 30 ml PO DAILY PRN Constipation 10/02/23 03/25/24 oral suspension (Milk of Magnesia) aripiprazole 2 mg tablet 2 mg PO DAILY 10/28/23 03/25/24 empagliflozin 25 mg tablet 25 mg PO DAILY 02/16/24 03/25/24 (Jardiance) fluticasone 113 mcg-salmeterol 14 1 inh inhalation DAILY 02/16/24 03/25/24 mcg/actuation breath activated powdr magnesium citrate 300 ml PO DAILY PRN Constipation 02/16/24 03/25/24 polyethylene glycol 3350 17 17 g PO DAILY PRN Constipation 02/16/24 03/25/24 gram/dose oral powder (Miralax) erythromycin 5 mg/gram (0.5 %) eye 1 inch ophthalmic (eye) BEDTIME 03/25/24 03/25/24 ointment Previous Rx's ?Medication ?Instructions ?Recorded amlodipine 5 mg tablet 5 mg PO DAILY 30 days #30 tabs 11/26/21 furosemide 40 mg tablet 40 mg PO DAILY #30 tabs 04/05/22 acetazolamide 250 mg tablet 500 mg (2 x 250 mg) PO BID #60 tabs 01/06/23 spironolactone 25 mg tablet 25 mg PO DAILY #30 tabs 11/01/23 modafinil 100 mg tablet (Provigil) 100 mg PO DAILY #30 tabs 02/18/24 insulin glargine 100 unit/mL 30 unit (0.3 mL) subcut BEDTIME 03/29/24 subcutaneous solution (Lantus #10 mL U-100 Insulin) prednisone 20 mg tablet See Rx Instructions .Route 03/29/24 .COMPLEX #18 tabs sulfamethoxazole 800 1 tab PO BID UTI 3 days #6 tabs 04/22/24 mg-trimethoprim 160 mg tablet Allergies Allergy/AdvReac Type Severity Reaction Status Date / Time latex Allergy Unknown Unknown Verified 04/22/24 17:52 adhesive tape AdvReac Unknown Unknown Verified 04/22/24 17:52 bupropion [From Wellbutrin] AdvReac Unknown Unknown Verified 04/22/24 17:52 ibuprofen AdvReac Unknown Unknown Verified 04/22/24 17:52 Review of Systems 2 Review of Systems: Patient endorses right-sided neck pain and weakness She denies chest pain, shortness of breath, abdominal pain, nausea, vomiting, dysuria Yes all other systems are reviewed and are negative [facility] Past Medical History Attestation statement: The following information was validated with the patient. [facility] Narrative: Hypoxic respiratory failure, UTI, obesity, COPD,hfpef Source: old records reviewed Medical History (Updated 04/22/24 @ 23:11 by Parviz Michele MD) Acute and chronic respiratory failure with hypercapnia Hypoventilation associated with obesity COPD (chronic obstructive pulmonary disease) Obesity hypoventilation syndrome Diabetes mellitus Acute and chronic respiratory failure with hypercapnia Morbid obesity Pressure injury of deep tissue of buttock Sepsis Morbid obesity with BMI of 50.0-59.9, adult Acute and chronic respiratory failure Pressure ulcer, stage II, skin breakdown Hypertrophic nonobstructive cardiomyopathy Presence of permanent cardiac pacemaker Acute on chronic respiratory failure with hypoxia and hypercapnia Metabolic encephalopathy Urinary tract infection due to ESBL Klebsiella Respiratory failure Presence of permanent cardiac pacemaker Sick sinus syndrome Morbid obesity Heart block AV third degree PAD (peripheral artery disease) Diabetic ulcer of foot associated with diabetes mellitus due to underlying condition, with fat layer exposed Atelectasis of both lungs Respiratory failure with hypoxia and hypercapnia Hypoventilation associated with obesity syndrome SMILEY (obstructive sleep apnea) Morbid obesity Pulmonary embolism CHF (congestive heart failure) Clostridium difficile infection Hypertension Diabetes mellitus, type 2 Depression Arthritis Anemia Surgical History History of total knee replacement Social History Social History Household Members: None Housing: Senior Care Housing Other:: Came from STR Are you a primary care professional to a significant other at home: No Do you presently have visiting nurse or other home services: Yes Unable to assess alcohol history related to: Unknown Alcohol intake: never Patient Tobacco Use Status: Former Tobacco user Tobacco use type: Cigarette Cigarette Packs Per Day: 20 Cigarettes Per Day: 400.0 Years Smoked: 20 Smoked in Last 30 Days: No e-Cigarette/Vaping Use: Never Used Second Hand Smoke Exposure: No Use of substances other than those prescribed or required for medical reasons: No Substance Use Type: Unknown Advance Directives: Yes Advance Directives on File: Yes Advance Directives Date on File: 01/07/23 Do you have a plan to hurt others: No Plan Patient : No service: No Current occupational status: disabled Physical Exam ED Vital Signs: Vital Signs - 24 hr 04/22/24 17:43 04/22/24 19:24 04/22/24 21:15 Temperature 98.9 F 98.6 F 98.6 F Pulse Rate 90 84 88 Respiratory Rate 20 18 15 Blood Pressure 108/73 123/69 121/61 Pulse Oximetry 99 93 96 Oxygen Delivery Method Nasal Cannula Nasal Cannula Nasal Cannula Oxygen Flow Rate 3 3 3 BMI result Body Mass Index 42.7 Course Course Course Narrative: Evaluated patient who was a poor historian. I called patient's facility and got a better history from staff Reevaluation(s) Reevaluation #1: [facility] called stating that they do not appreciate any abnormalities on patient's CTA head and neck Time: 20:35 Medications Administered Discontinued Medications Generic Name Dose Route Start Last Admin Trade Name Mike PRN Reason Stop Dose Admin Iohexol 100 ml 04/22/24 20:10 04/22/24 20:10 Iohexol 350 Mg/Ml 100 Ml Infus..Btl IV 04/22/24 20:11 70 ml ONCE ONE Administration Trimethoprim/Sulfamethoxazole 1 tab 04/22/24 23:20 04/23/24 00:00 Sulfamethox/Trimeth 800/160 Tablet PO 04/22/24 23:21 1 tab ONCE ONE Administration Medical Decision Making Medical Decision Making [facility] Narrative: This is a 63-year-old obese female with multiple health issues presenting to rule out stroke. Patient does not have any focal neurologic deficits on exam nor do I appreciate nystagmus. I do not think that she is having a stroke. She could have an underlying infection such as UTI however she has no respiratory symptoms and satting well on 3 L oxygen which is her baseline. For this reason I will not order chest x-ray as I do not think that she has pneumonia. She does have COPD and could be hypercarbic. I will obtain a VBG. I suspect the patients neck pain is likely musculoskeletal in nature Patient's urinalysis is concerning for UTI. She has grown Klebsiella in the past. I discharged her with a prescription for Bactrim and gave instructions for her rehab facility to administer. There is a possibility that her urine is colonized however given the concerns for neurologic abnormalities she should be treated while culture is pending Differential Diagnosis Differential Diagnoses: The differential diagnosis associated with the presentation includes Rule out stroke Hypercarbia, UTI, neck strain/sprain Lab Data [facility] Lab Attestation statement: I reviewed the patient's lab results. CBC stable; VBG negative for hypercarbia; hyperglycemic on BNP 04/22/24 18:43 04/22/24 18:42 Labs: Lab Results 0804/22/24 04/22/24 Range/Units 18:42 18:43 18:45 WBC 8.9 (4.8-10.8) X10*3/uL RBC 4.62 (4.20-5.50) X10*6/uL Hgb 13.2 (12.0-16.0) g/dl Hct 42.8 (37.0-47.0) % MCV 92.6 (80.0-98.0) fL MCH 28.6 (27.0-33.0) pg MCHC 30.8 L (31.0-35.0) g/dl RDW 13.8 (11.0-16.0) % Plt Count 240 (160-400) X10*3/uL MPV 10.1 (9.4-12.3) fL Immature Gran % (Auto) 0.3 (0.0-0.4) % Neut % (Auto) 68.6 (45-73) % Lymph % (Auto) 20.5 (20-40) % [place] % (Auto) 7.3 (2-11) % Eos % (Auto) 2.8 (0-4) % Baso % (Auto) 0.5 (0-2) % Lymph # (Auto) 1.8 (1.2-4.9) X10*3/uL [place] # (Auto) 0.7 (0.1-1.2) X10*3/uL Eos # (Auto) 0.3 (0.0-0.4) X10*3/uL Baso # (Auto) 0.0 (0.0-0.2) X10*3/uL Abs Immat Gran (auto) 0.03 (0.00-0.03) X10*3/uL Absolute Neuts (auto) 6.1 (2.0-8.3) x10*3/uL Absolute Nucleated RBC 0.000 (0.0-0.012) X10*3/uL Nucleated RBC % (auto) 0.0 (0.0-0.2) /100WBC VBG pH 7.41 (7.32-7.43) VBG pCO2 45 mmHg VBG pO2 54 mmHg VBG HCO3 28 H (22-26) mmol/L VBG O2 Saturation 85.0 % VBG Base Excess 3.6 mmol/L Sodium 141 (135-145) mmol/L Potassium 3.9 (3.3-5.1) mmol/L Chloride 103 (96-108) mmol/L Carbon Dioxide 30 H (22-29) mmol/L Anion Gap 12 (12-20) BUN 19 H (9-16) mg/dL Creatinine 0.97 (0.5-1.4) mg/dL Estim Creat Clear Calc 87.9 Estimated GFR 58 Random Glucose 199 H (60-115) mg/dL Lactic Acid 1.1 (0.5-2.0) mmol/L Calcium 9.8 D (8.4-10.2) mg/dL Total Bilirubin 0.2 (0.0-1.0) mg/dL AST 12 (5-31) U/L ALT 16 (0-31) U/L Alkaline Phosphatase 68 (39-117) U/L Total Protein 7.1 (6.5-8.0) g/dL Albumin 3.7 (3.5-5.0) g/dL Lipase 18 (8-78) U/L Urine Color Urine Appearance Urine pH (5.0-9.0) Ur Specific [place] (1.005-1.025) Urine Protein (Neg-Trace) mg/dL Urine Glucose (UA) (Negative) mg/dL Urine Ketones (Negative) mg/dL Urine Blood (Negative) Urine Nitrite (Negative) Ur Leukocyte Esterase (Negative) Urine RBC (0-2) /HPF Urine WBC (0-5) /HPF Ur Squamous Epith Cells (0-2) /HPF Urine Bacteria (None Seen) Hyaline Casts (0-2) /LPF 04/22/24 Range/Units 22:00 WBC (4.8-10.8) X10*3/uL RBC (4.20-5.50) X10*6/uL Hgb (12.0-16.0) g/dl Hct (37.0-47.0) % MCV (80.0-98.0) fL MCH (27.0-33.0) pg MCHC (31.0-35.0) g/dl RDW (11.0-16.0) % Plt Count (160-400) X10*3/uL MPV (9.4-12.3) fL Immature Gran % (Auto) (0.0-0.4) % Neut % (Auto) (45-73) % Lymph % (Auto) (20-40) % [place] % (Auto) (2-11) % Eos % (Auto) (0-4) % Baso % (Auto) (0-2) % Lymph # (Auto) (1.2-4.9) X10*3/uL [place] # (Auto) (0.1-1.2) X10*3/uL Eos # (Auto) (0.0-0.4) X10*3/uL Baso # (Auto) (0.0-0.2) X10*3/uL Abs Immat Gran (auto) (0.00-0.03) X10*3/uL Absolute Neuts (auto) (2.0-8.3) x10*3/uL Absolute Nucleated RBC (0.0-0.012) X10*3/uL Nucleated RBC % (auto) (0.0-0.2) /100WBC VBG pH (7.32-7.43) VBG pCO2 mmHg VBG pO2 mmHg VBG HCO3 (22-26) mmol/L VBG O2 Saturation % VBG Base Excess mmol/L Sodium (135-145) mmol/L Potassium (3.3-5.1) mmol/L Chloride (96-108) mmol/L Carbon Dioxide (22-29) mmol/L Anion Gap (12-20) BUN (9-16) mg/dL Creatinine (0.5-1.4) mg/dL Estim Creat Clear Calc Estimated GFR Random Glucose (60-115) mg/dL Lactic Acid (0.5-2.0) mmol/L Calcium (8.4-10.2) mg/dL Total Bilirubin (0.0-1.0) mg/dL AST (5-31) U/L ALT (0-31) U/L Alkaline Phosphatase (39-117) U/L Total Protein (6.5-8.0) g/dL Albumin (3.5-5.0) g/dL Lipase (8-78) U/L Urine Color Yellow Urine Appearance Cloudy Urine pH 6.5 (5.0-9.0) Ur Specific [place] >= 1.030 H (1.005-1.025) Urine Protein Negative (Neg-Trace) mg/dL Urine Glucose (UA) >=1000 H (Negative) mg/dL Urine Ketones Negative (Negative) mg/dL Urine Blood Moderate (2+) H (Negative) Urine Nitrite Negative (Negative) Ur Leukocyte Esterase Small (1+) H (Negative) Urine RBC >20 H (0-2) /HPF Urine WBC 21-50 H (0-5) /HPF Ur Squamous Epith Cells 3-5 (0-2) /HPF Urine Bacteria Trace (None Seen) Hyaline Casts 0-2 (0-2) /LPF Independent Interpretation I performed an independent interpretation of an: EKG Interpretation: Wide complex with normal rate similar to her prior Radiology Impression Discussion of test interpretation with radiology: I discussed test interpretation with the radiologist Radiologist Impression: [facility] called me stating they did not appreciate any LVO Independent Historian Clinical information obtained from an independent historian. History obtained from or confirmed by: Other I spoke with staff at patient's facility Discharge Plan Discharge Clinical Impression: Neck pain, UTI (urinary tract infection) Patient Disposition: er Inpatient Rehab Fac Transfer Details: [facility] Additional Instructions: Patient was found to have UTI I sent Bactrim to her pharmacy however this can not be picked up please provide it to her as follows Trimethoprim/sulfamethoxazole 800-160 mg tablet - 1 tab - b.i.d. - x3 days If she develops any new or worsening symptoms please send her back to the emergency department Prescriptions: New sulfamethoxazole-trimethoprim 800-160 mg tablet 1 tab PO BID 3 Days Qty: 6 0RF No Action furosemide 40 mg Tablet 40 mg PO DAILY Qty: 30 0RF Protocol: Hold for SBP< HOLD for SBP < : 90 ipratropium-albuterol 0.5 mg-3 mg(2.5 mg base)/3 mL Solution For Nebulization 3 ml INHALATION TID potassium chloride 10 mEq Tablet Extended Release 10 meq PO DAILY Hold Instructions: Recheck K level in 1 week to decide if needed or not. Culturelle 10 billion cell Capsule 1 cap PO BID bupropion HCl 150 mg tablet extended release 24 hr 1 tab PO DAILY Rx Instructions: take with 300mg; tdd 450mg Fleet Enema 19-7 gram/118 mL Enema 118 ml NJ DAILY PRN (Reason: Constipation) Rx Instructions: (STEP 3) IF NO BOWEL MOVEMENT 8 HOURS AFTER BISACODYL atorvastatin 80 mg Tablet 80 mg PO BEDTIME sennosides [senna] 8.6 mg Tablet 17.2 mg PO BEDTIME acetaminophen 325 mg Tablet 325 mg PO Q4H PRN (Reason: Fever Or Pain) tizanidine 4 mg Tablet 4 mg PO BEDTIME PRN (Reason: Muscle Spasm) sertraline 100 mg Tablet 200 mg PO DAILY melatonin 3 mg Tablet 3 mg PO BEDTIME ferrous sulfate 325 mg (65 mg iron) Tablet 325 mg PO DAILY insulin lispro 100 unit/mL Insulin Pen See Protocol SUBCUT QIDACHS Protocol: Insulin Correction Scale Less than or equal to 110 ---- Give (units): 0 111 to 150 Give (units): 0 151 to 200 Give (units): 0 201 to 250 Give (units): 4 251 to 300 Give (units): 6 301 to 350 Give (units): 8 Greater than 350 Give (units): 10 Call MD if Blood Glucose > : 350 Rx Instructions: SLIDING SCALE IF BLOOD GLUCOSE GREATER THAN 400, GIVE 12 UNITS AND NOTIFY MD amlodipine 5 mg Tablet 5 mg PO DAILY 30 Days Qty: 30 0RF Protocol: Hold for SBP< HOLD for SBP < : 90 aspirin 81 mg Tablet,Chewable 81 mg PO DAILY acetazolamide 250 mg Tablet 500 mg PO BID Qty: 60 0RF losartan 25 mg tablet 25 mg PO DAILY cholecalciferol (vitamin D3) 25 mcg (1,000 unit) Tablet 25 mcg PO DAILY olopatadine 0.2 % Drops 1 drp OPHTHALMIC (EYE) QSHIFT Rx Instructions: both eyes megestrol 400 mg/10 mL (40 mg/mL) suspension 400 mg PO TID insulin glargine [Lantus U-100 Insulin] 100 unit/mL solution 25 unit subcut DAILY erythromycin 5 mg/gram (0.5 %) ointment 1 inch ophthalmic (eye) BEDTIME Rx Instructions: End date 03-31-24 insulin glargine [Lantus U-100 Insulin] 100 unit/mL Solution 30 unit subcut BEDTIME Qty: 10 0RF prednisone 20 mg tablet See Rx Instructions .Route .COMPLEX Qty: 18 0RF Rx Instructions: 20 mg orally; 3 tabs daily for 3 days, 2 tabs daily for 3 days, 1 tab daily for 3 days metformin 500 mg tablet 500 mg PO BID Ozempic 0.25 mg or 0.5 mg (2 mg/3 mL) pen injector 0.5 mg subcut WE magnesium hydroxide [Milk of Magnesia] 400 mg/5 mL Suspension 30 ml PO DAILY PRN (Reason: Constipation) Rx Instructions: (step 1) If no bowel movement for 3 days. aripiprazole 2 mg tablet 2 mg PO DAILY spironolactone 25 mg Tablet 25 mg PO DAILY Qty: 30 0RF Protocol: Hold for SBP< HOLD for SBP < : 90 magnesium citrate Solution 300 ml PO DAILY PRN (Reason: Constipation) Patient Comments: If no bowel movement in 12 hours after polyethylene glycol 3350 [Miralax] 17 gram/dose Powder 17 g PO DAILY PRN (Reason: Constipation) Jardiance 25 mg tablet 25 mg PO DAILY fluticasone propion-salmeterol 113-14 mcg/actuation aerosol powdr breath activated 1 inh inhalation DAILY Rx Instructions: Rinse mouth with water after use and spit out. modafinil [Provigil] 100 mg Tablet 100 mg PO DAILY Qty: 30 0RF bisacodyl 10 mg suppository 10 mg NJ DAILY PRN (Reason: Constipation) Rx Instructions: GIVE IF NO RESULT FROM MILK OF MAGNESIA cyanocobalamin (vitamin B-12) 1,000 mcg capsule 1,000 mcg PO DAILY bupropion HCl 300 mg tablet extended release 24 hr 300 mg PO DAILY Rx Instructions: take with 150mg dose; tdd 450mg Discharge Date/Time: 04/23/24 00:25 Print Language: Lao
[2024-04-22 18:48] LABS: MANUAL DIFF FLAG NO
[2024-04-22 18:50] LABS: Basophils Percent Auto 0.5 % (0-2); Eosinophils Absolute Auto 0.3 X10*3/uL (0.0-0.4); Eosinophils Percent Auto 2.8 % (0-4); Hematocrit 42.8 % (37.0-47.0); Hemoglobin 13.2 g/dl (12.0-16.0); Imm Gran Abs Auto 0.03 X10*3/uL (0.00-0.03); Imm Gran Pct Auto 0.3 % (0.0-0.4); Lymphocytes Absolute Auto 1.8 X10*3/uL (1.2-4.9); Lymphocytes Percent Auto 20.5 % (20-40); Mean Corpuscular HGB Conc 30.8 g/dl (31.0-35.0); Mean Corpuscular Hemoglobin 28.6 pg (27.0-33.0); Mean Corpuscular Volume 92.6 fL (80.0-98.0); Mean Platelet Volume 10.1 fL (9.4-12.3); Monocytes Absolute Auto 0.7 X10*3/uL (0.1-1.2); Monocytes Percent Auto 7.3 % (2-11); Neutrophils Absolute Auto 6.1 x10*3/uL (2.0-8.3); Neutrophils Percent Auto 68.6 % (45-73); Platelet Count 240 X10*3/uL (160-400); Red Blood Count 4.62 X10*6/uL (4.20-5.50); Red Cell Distribution Width 13.8 % (11.0-16.0); White Blood Count 8.9 X10*3/uL (4.8-10.8)
[2024-04-22 18:50] LABS: Venous Blood Gas Refer to POC result
[2024-04-22 18:51] LABS: VBG Base Excess 3.6 mmol/L; VBG HCO3 28 mmol/L (22-26); VBG pCO2 45 mmHg; VBG pH 7.41 (7.32-7.43); VBG pO2 54 mmHg
[2024-04-22 19:05] LABS: Lactic Acid 1.1 mmol/L (0.5-2.0)
[2024-04-22 19:08] LABS: Alanine Aminotransferase 16 U/L (0-31); Albumin Level 3.7 g/dL (3.5-5.0); Alkaline Phosphatase 68 U/L (39-117); Anion Gap 12 (12-20); Aspartate Amino Transferase 12 U/L (5-31); Bilirubin Total 0.2 mg/dL (0.0-1.0); Blood Urea Nitrogen 19 mg/dL (9-16); Calcium 9.8 mg/dL (8.4-10.2); Carbon Dioxide 30 mmol/L (22-29); Chloride 103 mmol/L (96-108); Creatinine Clr Calc Pharmacy 87.9; Estimated Glomerular Filt Rate 58; Glucose Random 199 mg/dL (60-115); Lipase 18 U/L (8-78); Potassium 3.9 mmol/L (3.3-5.1); Sodium 141 mmol/L (135-145); Total Protein 7.1 g/dL (6.5-8.0)
[2024-04-22 19:24] VITALS: BP 123/69; PULSE 84; RESP 18; TEMP 37; O2SAT 93
[2024-04-22] MEDS: iohexoL 350 MG/ML 100 ML INFUS..BTL IV (20:10)
[2024-04-22 21:15] VITALS: BP 121/61; PULSE 88; RESP 15; TEMP 37; O2SAT 96
[2024-04-22 22:09] LABS: Appearance Urine Cloudy; Color Urine Yellow; Glucose Urine UA >=1000 mg/dL (Negative); Leukocyte Esterase Urine Small (1+) (Negative); Nitrite Urine Negative (Negative); PH 6.5 (5.0-9.0); Specific Gravity - Urine >= 1.030 (1.005-1.025); UMIC TRIGGER UACC YES; Urine Blood Moderate (2+) (Negative); Urine Ketones Negative (Negative); Urine Protein Negative (Neg-Trace)
[2024-04-22 22:14] LABS: Bacteria Urine Trace (None Seen); Hyaline Casts Urine 0-2 /LPF (0-2); RBC Urine >20 /HPF (0-2); UACC Culture Trigger YES; WBC Urine 21-50 /HPF (0-5)
[2024-04-23] MEDS: Sulfamethox/Trimeth 800/160 TABLET 1 TAB PO
--- NOTE | 2024-04-23 00:35 | PC.NURSE ---
nurse to nurse report provided to [facility]
== END 2024-04-23 00:25 ==
PROVIDERS: Emergency Provider Student in an Organized Health Care Education/Training Program; PCP Internal Medicine
DX: M54.2 Cervicalgia (principal); N39.0 Urinary tract infection, site not specified; Z87.440 Personal history of urinary (tract) infections; E11.9 Type 2 diabetes mellitus without complications; I10 Essential (primary) hypertension; J44.9 Chronic obstructive pulmonary disease, unspecified; Z79.02 Long term (current) use of antithrombotics/antiplatelets; Z79.899 Other long term (current) drug therapy; Z79.4 Long term (current) use of insulin
CPT/HCPCS: 36415; 70496; 70498; 71046; 80053; 81001; 82803; 83605; 83690; 85025; 87086; 93005; 99284; Q9967

== ENCOUNTER → 2024-04-22 17:56 | Outpatient (BNV) | payer MEDICARE, MEDICAID, SELFPAY | PROVIDERS: Emergency Provider Student in an Organized Health Care Education/Training Program; PCP Internal Medicine; Visit Provider Internal Medicine Cardiovascular Disease | DX: R94.31 Abnormal electrocardiogram [ECG] [EKG] (principal) | CPT/HCPCS: 93010 ==

== ENCOUNTER 2024-05-20 21:02 | Inpatient (IN) | payer MEDICARE, MEDICAID, OTHER, SELFPAY ==
[2024-05-20] VITALS (10 sets, daily range): BP systolic 103–143; BP diastolic 40–94; PULSE 68–84; RESP 15–25; TEMP 36.4; O2SAT 90–98; BMI 44.5
--- NOTE | 2024-05-20 | ECG_ITS ---
Test Reason : SOB Blood Pressure : / mmHG Vent. Rate : 069 BPM Atrial Rate : 069 BPM P-R Int : 178 ms QRS Dur : 168 ms QT Int : 448 ms P-R-T Axes : 025 270 037 degrees QTc Int : 480 ms Atrial-sensed ventricular-paced rhythm Abnormal ECG When compared with ECG of 22-APR-2024 18:24, Heart rate has decreased Referred By: Generic ED Physician Electronically Signed By:IJEOMA PEREIRA
--- NOTE | ~2024-05-20 | XR_ITS ---
EXAMINATION: XR CHEST CLINICAL INFORMATION: Shortness of breath. Hypoxia. COMPARISON: Chest radiograph dated April 22, 2024. TECHNIQUE: Frontal view of the chest was obtained. FINDINGS: Dual lead pacemaker is again seen with lead tips overlying right atrium and right ventricle. There are low lung volumes. The cardiac silhouette appears mildly enlarged. There is pulmonary vascular congestion. There is mild pulmonary edema. No consolidation. No large pleural effusion. No pneumothorax. No acute osseous abnormality. Left shoulder prosthesis. XR/XR chest 1V IMPRESSION: Mild cardiomegaly. Mild pulmonary edema. No consolidation. Electronically signed by: Good Ruano DO 05/20/2024 10:40 PM EDT
--- NOTE | ~2024-05-20 | CT_ITS ---
EXAMINATION: CT CHEST WITHOUT CONTRAST CLINICAL INFORMATION: Hypoxic respiratory failure COMPARISON: 11/20/2022 TECHNIQUE: Multidetector volumetric CT imaging of the chest was done. Axial MIP volume rendering provided. Sagittal and coronal reformatted images were obtained. This CT examination was performed using dose optimization techniques as appropriate, variously including the following: *Automated exposure control *Adjustment of mA and/or kV according to patient size (this includes techniques or standardized protocols for targeted exams where dose is matched to indication/reason for exam; i.e. extremities or head) *Use of iterative reconstruction technique DLP: 677 mGy-cm FINDINGS: LUNGS: Significantly limited detailed evaluation of the parenchyma due to respiratory motion artifact. Multifocal regions of opacity are present in the right upper and bilateral lower lobes. At least a component of consolidation is suspected at these sites, though there may be some superimposed atelectasis in the lower lobes. MEDIASTINUM: Thyroid gland is not well evaluated due to motion artifact. There is gaseous distention of some segments of the esophagus. No discrete lymphadenopathy is seen. There is cardiomegaly without pericardial effusion. Unenhanced pulmonary arteries appear dilated, which may reflect pulmonary hypertension. Left-sided pacemaker leads extend to the right atrium and right ventricle. CORONARY ARTERY CALCIFICATION: Mild coronary artery calcification noted. PLEURA: No pneumothorax. Trace left pleural effusion suspected. AXILLA: No lymphadenopathy. UPPER ABDOMEN: Hypodense left renal lesion is partially visualized measuring approximately 5 cm, suggestive of a cyst. OSSEOUS STRUCTURES: Partially visualized left shoulder arthroplasty hardware. Degenerative changes are noted in the spine. CT/CT chest wo IV con IMPRESSION: 1. Significantly limited detailed evaluation of the lungs due to respiratory motion artifact. Multifocal regions of opacity are present in the right upper and bilateral lower lobes. At least a component of consolidation is suspected at these sites, though there may be some superimposed atelectasis in the lower lobes. Follow-up imaging in approximately 3 months would be helpful to assess for resolution. 2. Cardiomegaly. 3. Dilated pulmonary arteries, which may reflect pulmonary hypertension. 4. Suspected left renal cyst, not fully included on this examination. Correlation with nonemergent renal ultrasound is recommended. Electronically signed by: Sohail Pearson MD 05/21/2024 01:08 AM EDT
[2024-05-20 21:17] LABS: Glucose, Whole Blood 295 mg/dL (60-115)
[2024-05-20 21:40] LABS: MANUAL DIFF FLAG NO
[2024-05-20 21:43] LABS: Basophils Percent Auto 0.4 % (0-2); Eosinophils Absolute Auto 0.1 X10*3/uL (0.0-0.4); Eosinophils Percent Auto 0.4 % (0-4); Hematocrit 44.8 % (37.0-47.0); Hemoglobin 12.6 g/dl (12.0-16.0); Imm Gran Abs Auto 0.05 X10*3/uL (0.00-0.03); Imm Gran Pct Auto 0.4 % (0.0-0.4); Lymphocytes Absolute Auto 0.7 X10*3/uL (1.2-4.9); Lymphocytes Percent Auto 6.2 % (20-40); Mean Corpuscular HGB Conc 28.1 g/dl (31.0-35.0); Mean Corpuscular Hemoglobin 28.4 pg (27.0-33.0); Mean Corpuscular Volume 101.1 fL (80.0-98.0); Mean Platelet Volume 10.4 fL (9.4-12.3); Monocytes Absolute Auto 0.7 X10*3/uL (0.1-1.2); Monocytes Percent Auto 6.6 % (2-11); Neutrophils Absolute Auto 9.7 x10*3/uL (2.0-8.3); Platelet Count 249 X10*3/uL (160-400); Red Blood Count 4.43 X10*6/uL (4.20-5.50); Red Cell Distribution Width 14.6 % (11.0-16.0); White Blood Count 11.2 X10*3/uL (4.8-10.8)
[2024-05-20 21:48] LABS: VBG Base Excess 3.1 mmol/L; VBG HCO3 35 mmol/L (22-26); VBG pCO2 100 mmHg; VBG pH 7.15 (7.32-7.43); VBG pO2 51 mmHg
[2024-05-20 21:49] LABS: Prothrombin Time 11.6 SEC (11.1-13.3)
[2024-05-20 21:52] LABS: Venous Blood Gas Refer to POC result
[2024-05-20 21:57] LABS: COVID-19 Test Negative (Negative); IDNOW Serial# 08D9AD1C
[2024-05-20 22:03] LABS: Lactic Acid 1.2 mmol/L (0.5-2.0)
--- NOTE | 2024-05-20 22:07 | ED_ITS ---
HPI - General Adult General Chief complaint: Upper Respiratory Symptoms Stated complaint: FROM SNF,SOB (80'S),LETHARGY, NOW ON NONREBREATHER Time Seen by Provider: 05/20/24 21:25 Source: EMS Mode of arrival: EMS Limitations: altered mental status History of Present Illness ED Provider: Dr. Thais Nguyen HPI narrative: Patient comes to the emergency room from [facility]. At baseline, patient known to have COPD, uses 3 L of oxygen, CHF. According to the staff, the patient's oxygen saturation was in the 70s on her usual 3 L. In the rehab they switched her to CPAP. Per EMS, the patient's oxygen saturation kept dropping and was in the 70s. EMS was called. On their arrival, patient was on a CPAP, oxygenating in the high 70s/low 80s. She was switched to a non- rebreather 15 L and brought to the emergency room. They gave her a nebulization treatment. On arrival, patient is very somnolent, opens her eyes to voice, is able to answer some questions. Patient denies chest pain. Related Data Home Medications ?Medication ?Instructions ?Recorded ?Confirmed acetaminophen 325 mg tablet 325 mg PO Q4H PRN Fever Or Pain 11/18/21 03/25/24 atorvastatin 80 mg tablet 80 mg PO BEDTIME 11/18/21 03/25/24 ferrous sulfate 325 mg (65 mg 325 mg PO DAILY 11/18/21 03/25/24 iron) tablet insulin lispro 100 unit/mL See Protocol subcut QIDACHS 11/18/21 03/25/24 subcutaneous pen melatonin 3 mg tablet 3 mg PO BEDTIME 11/18/21 03/25/24 sennosides 8.6 mg tablet (senna) 17.2 mg PO BEDTIME 11/18/21 03/25/24 sertraline 100 mg tablet 200 mg PO DAILY 11/18/21 03/25/24 tizanidine 4 mg tablet 4 mg PO BEDTIME PRN Muscle Spasm 11/18/21 03/25/24 aspirin 81 mg chewable tablet 81 mg PO DAILY 01/05/22 03/25/24 bupropion HCl 300 mg 24 hr tablet, 300 mg PO DAILY 04/09/22 03/25/24 extended release Lactobacillus rhamnosus GG 10 1 cap PO BID 10/09/22 03/25/24 billion cell capsule (Culturelle) bupropion HCl 150 mg 24 hr tablet, 1 tab PO DAILY 10/09/22 03/25/24 extended release ipratropium 0.5 mg-albuterol 3 mg 3 ml inhalation TID wheezing 10/09/22 03/25/24 (2.5 mg base)/3 mL nebulization soln potassium chloride 10 mEq 10 meq PO DAILY 10/09/22 03/25/24 tablet,extended release bisacodyl 10 mg rectal suppository 10 mg WV DAILY PRN Constipation 10/21/22 03/25/24 sodium phosphates 19 gram-7 118 ml WV DAILY PRN Constipation 11/09/22 03/25/24 gram/118 mL enema (Fleet Enema) metformin 500 mg tablet 500 mg PO BID 12/27/22 03/25/24 semaglutide 0.25 mg or 0.5 mg (2 0.5 mg subcut WE 12/27/22 03/25/24 mg/3 mL) subcutaneous pen injector (Ozempic) cholecalciferol (vitamin D3) 25 25 mcg PO DAILY 04/04/23 03/25/24 mcg (1,000 unit) tablet insulin glargine 100 unit/mL 25 unit subcut DAILY 04/04/23 03/25/24 subcutaneous solution (Lantus U-100 Insulin) losartan 25 mg tablet 25 mg PO DAILY 04/04/23 03/25/24 megestrol 400 mg/10 mL (40 mg/mL) 400 mg PO TID 04/04/23 03/25/24 oral suspension olopatadine 0.2 % eye drops 1 drp ophthalmic (eye) QSHIFT 04/04/23 03/25/24 cyanocobalamin (vitamin B-12) 1,000 mcg PO DAILY 04/21/23 03/25/24 1,000 mcg capsule magnesium hydroxide 400 mg/5 mL 30 ml PO DAILY PRN Constipation 10/02/23 03/25/24 oral suspension (Milk of Magnesia) aripiprazole 2 mg tablet 2 mg PO DAILY 10/28/23 03/25/24 empagliflozin 25 mg tablet 25 mg PO DAILY 02/16/24 03/25/24 (Jardiance) fluticasone 113 mcg-salmeterol 14 1 inh inhalation DAILY 02/16/24 03/25/24 mcg/actuation breath activated powdr magnesium citrate 300 ml PO DAILY PRN Constipation 02/16/24 03/25/24 polyethylene glycol 3350 17 17 g PO DAILY PRN Constipation 02/16/24 03/25/24 gram/dose oral powder (Miralax) erythromycin 5 mg/gram (0.5 %) eye 1 inch ophthalmic (eye) BEDTIME 03/25/24 03/25/24 ointment Previous Rx's ?Medication ?Instructions ?Recorded amlodipine 5 mg tablet 5 mg PO DAILY 30 days #30 tabs 11/26/21 furosemide 40 mg tablet 40 mg PO DAILY #30 tabs 04/05/22 acetazolamide 250 mg tablet 500 mg (2 x 250 mg) PO BID #60 tabs 01/06/23 spironolactone 25 mg tablet 25 mg PO DAILY #30 tabs 11/01/23 modafinil 100 mg tablet (Provigil) 100 mg PO DAILY #30 tabs 02/18/24 insulin glargine 100 unit/mL 30 unit (0.3 mL) subcut BEDTIME 03/29/24 subcutaneous solution (Lantus #10 mL U-100 Insulin) prednisone 20 mg tablet See Rx Instructions .Route 03/29/24 .COMPLEX #18 tabs sulfamethoxazole 800 1 tab PO BID UTI 3 days #6 tabs 04/22/24 mg-trimethoprim 160 mg tablet Allergies Allergy/AdvReac Type Severity Reaction Status Date / Time latex Allergy Unknown Unknown Verified 05/20/24 21:20 adhesive tape AdvReac Unknown Unknown Verified 05/20/24 21:20 bupropion [From Wellbutrin] AdvReac Unknown Unknown Verified 05/20/24 21:20 ibuprofen AdvReac Unknown Unknown Verified 05/20/24 21:20 Review of Systems 2 Review of Systems: Constitutional : No Weight loss, No Fever, No Chills, No Night Sweats, No Fatigue, No Malaise ENT/Mouth : No Hearing loss, No Ear Pain, No Nasal Congestion, No Sinus Pain, No Hoarseness, No sore throat, No Rhinorrhea, No Swallowing Difficulty Eyes: No Eye Pain, No Swelling, No Redness, No Foreign Body, No Discharge, No Vision Changes Cardiovascular : No Chest Pain, No SOB, No Dyspnea on Exertion, No Orthopnea, No Edema, No Palpitations Respiratory : Complaining of shortness of breath Gastrointestinal : No Nausea, No Vomiting, No Diarrhea, No Constipation, No abdominal Pain, No Hematochezia, No Melena Genitourinary : no irregular bleeding, No Dysuria, No Urinary Frequency, No Hematuria, No Urinary Incontinence, No Urgency, No Flank Pain, No Urinary Flow Changes, No Hesitancy Musculoskeletal : No joint pain, No Myalgias, No Joint Swelling Skin : No Skin Lesions, No rash Neuro : No Weakness, No Numbness, No Paresthesias, No Loss of Consciousness, No Dizziness, No Headache Psych : No Anxiety/Panic, No Depression, No SI/HI/AH/VH, No Social Issues, Heme/Lymph: No Bruising, No Bleeding,No Lymphadenopathy Endocrine : No Polyuria, No Polydipsia, No Temperature Intolerance [facility] Past Medical History Medical History Acute and chronic respiratory failure with hypercapnia Hypoventilation associated with obesity COPD (chronic obstructive pulmonary disease) Obesity hypoventilation syndrome Diabetes mellitus Acute and chronic respiratory failure with hypercapnia Morbid obesity Pressure injury of deep tissue of buttock Sepsis Morbid obesity with BMI of 50.0-59.9, adult Acute and chronic respiratory failure Pressure ulcer, stage II, skin breakdown Hypertrophic nonobstructive cardiomyopathy Presence of permanent cardiac pacemaker Acute on chronic respiratory failure with hypoxia and hypercapnia Metabolic encephalopathy Urinary tract infection due to ESBL Klebsiella Respiratory failure Presence of permanent cardiac pacemaker Sick sinus syndrome Morbid obesity Heart block AV third degree PAD (peripheral artery disease) Diabetic ulcer of foot associated with diabetes mellitus due to underlying condition, with fat layer exposed Atelectasis of both lungs Respiratory failure with hypoxia and hypercapnia Hypoventilation associated with obesity syndrome SMILEY (obstructive sleep apnea) Morbid obesity Pulmonary embolism CHF (congestive heart failure) Clostridium difficile infection Hypertension Diabetes mellitus, type 2 Depression Arthritis Anemia Surgical History History of total knee replacement Social History Social History Household Members: None Housing: Detention Housing Other:: Came from [facility] Are you a primary resident care manager rn to a significant other at home: No Do you presently have visiting nurse or other home services: Yes Unable to assess alcohol history related to: Unknown Alcohol intake: never Patient Tobacco Use Status: Former Tobacco user Tobacco use type: Cigarette Cigarette Packs Per Day: 20 Cigarettes Per Day: 400.0 Years Smoked: 20 Smoked in Last 30 Days: No e-Cigarette/Vaping Use: Never Used Second Hand Smoke Exposure: No Use of substances other than those prescribed or required for medical reasons: No Substance Use Type: Unknown Advance Directives: Yes Advance Directives on File: Yes Advance Directives Date on File: 01/07/23 service: No Current occupational status: disabled Physical Exam ED Vital Signs: Vital Signs - 24 hr 05/20/24 21:12 05/20/24 21:27 05/20/24 21:30 Temperature 97.5 F Pulse Rate 77 68 Respiratory Rate 25 H 21 H Blood Pressure 128/58 L 143/62 H Pulse Oximetry 90 L 94 93 Oxygen Delivery Method Oxymask BiPAP Oxymask Oxygen Flow Rate 05/20/24 21:32 05/20/24 21:45 05/20/24 22:03 Temperature Pulse Rate 75 Respiratory Rate 22 H 15 Blood Pressure 119/94 H Pulse Oximetry 92 94 Oxygen Delivery Method BiPAP BiPAP Oxygen Flow Rate 05/20/24 22:13 05/20/24 22:31 05/20/24 22:58 Temperature Pulse Rate 76 79 82 Respiratory Rate 20 24 H 24 H Blood Pressure 111/51 L 103/66 Pulse Oximetry 93 98 Oxygen Delivery Method BiPAP BiPAP Oxygen Flow Rate 05/20/24 23:27 05/21/24 00:20 05/21/24 00:33 Temperature Pulse Rate 76 88 76 Respiratory Rate 20 25 H 15 Blood Pressure 116/40 L 130/44 L 136/49 L Pulse Oximetry 94 89 L 95 Oxygen Delivery Method BiPAP Oxymask BiPAP Oxygen Flow Rate 15 05/21/24 01:56 Temperature 98.2 F Pulse Rate 74 Respiratory Rate 20 Blood Pressure 121/38 L Pulse Oximetry 94 Oxygen Delivery Method BiPAP Oxygen Flow Rate BMI result Body Mass Index 44.5 Const Other: Appearance: Very somnolent, ill-appearing , wakes up to voice but falls back asleep Eyes: Pupils equal, round and reactive to light. ENT: Pharynx normal. Neck: Normal inspection. Neck supple. No lymph nodes noted. No crepitus CVS: Normal heart rate and rhythm. Pulses normal. Normal S1 and S2 Respiratory: Patient is on a non-rebreather at 15 L, bilateral rales present, diminished lung sounds worse in the right, no obvious wheezing. Abdomen: Soft and nontender. No rigidity. No distention. Skin: Skin warm and dry. Normal skin color. Normal skin turgor. Extremities: No lower extremity edema. No Lacerations. No Rash Neuro: Very somnolent, able to follow commands. Has difficulty staying awake to participating cranial nerve assessment Psych: calm, somnolent Course Course Course Narrative: On arrival, patient is very somnolent, does wake up, open her eyes, falls back asleep. Patient is still able to answer some questions. Patient was put on 15 L by EMS. Patient's oxygen saturation has been in the high 90s. Given her past medical history of COPD, I asked the patient's nurse to switch the patient to BiPAP and to keep an oxygen saturation between 88-92%. Medications Administered Discontinued Medications Generic Name Dose Route Start Last Admin Trade Name Freq PRN Reason Stop Dose Admin Albuterol Sulfate 10 mg 05/20/24 22:17 05/20/24 22:24 Albuterol Sulfate (0.083%) 2.5 Mg/3 Ml Vial.Neb INHALE 05/20/24 22:18 10 mg ONCE ONE Administration Sodium Chloride 2,000 mls @ 999 mls/hr 05/20/24 22:05 05/21/24 00:20 Ns IVCONT 05/21/24 00:05 Infused .Q2H1M ONE Infusion Levofloxacin 500 mg in 100 mls @ 100 mls/hr 05/20/24 22:06 05/20/24 23:20 Levaquin IV 05/20/24 23:05 Infused ONCE ONE Infusion Calcium Gluconate 2 gm in 100 mls @ 50 mls/hr 05/20/24 22:17 05/21/24 00:30 Calcium Gluconate IV 05/21/24 00:16 Infused ONCE ONE Infusion Insulin Human Regular 10 unit 05/20/24 22:21 05/20/24 22:33 Insulin Regular, Human 100 Unit/Ml 10 Ml Vial IVPUSH 05/20/24 22:22 10 unit ONCE ONE Administration Lorazepam 2 mg 05/20/24 22:50 05/20/24 22:55 Lorazepam 2 Mg/Ml Vial IVPUSH 05/20/24 22:51 2 mg ONCE ONE Administration Methylprednisolone Sodium Succinate 125 mg 05/20/24 22:14 05/20/24 22:26 Methylprednisolone Sod Succ 125 Mg/2 Ml Vial IVPUSH 05/20/24 22:15 125 mg ONCE ONE Administration Medical Decision Making Medical Decision Making [facility] Narrative: At this time,2199, patient's labs became available, patient's white blood cell count is 11.2, coagulation time within normal limits. Patient's pH 7.1, pCO2 100, bicarb 35. Although patient's bicarb is 35, that is her usual baseline when she has a pH of 7.5. Patient is not compensated. Lactic acid is 1.2 all other labs pending. Potassium 5.8, glucose 351 -22:05. My interpretation of chest x-ray: Possible pneumonia. Patient will empirically be treated with IV fluids based on an ideal weight of 61 kg, patient is obese. Patient is also being treated with levofloxacin. So far, patient has not had fever, episodes of hypotension, lactic acid is normal. Patient is on BiPAP -for hyperkalemia, patient is receiving nebulization treatments as well for her lungs, also patient is hyperglycemic, receiving insulin which will also help to treat hyperkalemia -my interpretation of CT scan, bilateral multilobar pneumonia -patient has been on BiPAP for 4 hours. -I discussed the patient with Dr. Saxena from the ICU, patient being admitted Differential Diagnosis Differential Diagnoses: The differential diagnosis associated with the presentation includes (Chronic lung disease, asthma, respiratory failure) Admission/Observation Consideration of admission/observation: Escalation of care including admission/observation considered Consult Healthcare Provider Management of the patient was discussed with: Information Architect Lab Data [facility] Lab Attestation statement: I reviewed the patient's lab results. 05/20/24 21:30 05/20/24 21:31 Labs: Lab Results 05/20/24 05/20/24 05/20/24 Range/Units 21:14 21:30 21:31 WBC 11.2 H (4.8-10.8) X10*3/uL RBC 4.43 (4.20-5.50) X10*6/uL Hgb 12.6 (12.0-16.0) g/dl Hct 44.8 (37.0-47.0) % MCV 101.1 H (80.0-98.0) fL MCH 28.4 (27.0-33.0) pg MCHC 28.1 L (31.0-35.0) g/dl RDW 14.6 (11.0-16.0) % Plt Count 249 (160-400) X10*3/uL MPV 10.4 (9.4-12.3) fL Immature Gran % (Auto) 0.4 (0.0-0.4) % Neut % (Auto) 86.0 H (45-73) % Lymph % (Auto) 6.2 L (20-40) % Wagoner % (Auto) 6.6 (2-11) % Eos % (Auto) 0.4 (0-4) % Baso % (Auto) 0.4 (0-2) % Lymph # (Auto) 0.7 L (1.2-4.9) X10*3/uL Wagoner # (Auto) 0.7 (0.1-1.2) X10*3/uL Eos # (Auto) 0.1 (0.0-0.4) X10*3/uL Baso # (Auto) 0.0 (0.0-0.2) X10*3/uL Abs Immat Gran (auto) 0.05 H (0.00-0.03) X10*3/uL Absolute Neuts (auto) 9.7 H (2.0-8.3) x10*3/uL Absolute Nucleated RBC 0.000 (0.0-0.012) X10*3/uL Nucleated RBC % (auto) 0.0 (0.0-0.2) /100WBC PT 11.6 (11.1-13.3) SEC INR 1.0 (0.9-1.1) VBG pH (7.32-7.43) VBG pCO2 mmHg VBG pO2 mmHg VBG HCO3 (22-26) mmol/L VBG O2 Saturation % VBG Base Excess mmol/L Sodium 145 (135-145) mmol/L Potassium 5.8 H D (3.3-5.1) mmol/L Chloride 105 (96-108) mmol/L Carbon Dioxide 33 H (22-29) mmol/L Anion Gap 13 (12-20) BUN 28 H (9-16) mg/dL Creatinine 0.96 (0.5-1.4) mg/dL Estim Creat Clear Calc 91.0 Estimated GFR 59 POC Glucose 295 H (60-115) mg/dL Random Glucose 351 H* (60-115) mg/dL Lactic Acid (0.5-2.0) mmol/L Calcium 9.7 (8.4-10.2) mg/dL Magnesium 2.4 (1.6-2.6) mg/dL Total Bilirubin 0.2 (0.0-1.0) mg/dL Direct Bilirubin < 0.2 (0.0-0.5) mg/dL AST 15 (5-31) U/L ALT 10 (0-31) U/L Alkaline Phosphatase 89 (39-117) U/L Troponin I High Sens 12.1 (<3.5-17.0) ng/L B-Natriuretic Peptide (<100) pg/mL Total Protein 7.5 (6.5-8.0) g/dL Albumin 3.5 (3.5-5.0) g/dL TSH (0.32-4.0) uIU/mL COVID-19 (LIS) Negative (Negative) COVID-19 Clin Com See Note 05/20/24 05/20/24 05/20/24 Range/Units 21:32 21:41 21:48 WBC (4.8-10.8) X10*3/uL RBC (4.20-5.50) X10*6/uL Hgb (12.0-16.0) g/dl Hct (37.0-47.0) % MCV (80.0-98.0) fL MCH (27.0-33.0) pg MCHC (31.0-35.0) g/dl RDW (11.0-16.0) % Plt Count (160-400) X10*3/uL MPV (9.4-12.3) fL Immature Gran % (Auto) (0.0-0.4) % Neut % (Auto) (45-73) % Lymph % (Auto) (20-40) % Wagoner % (Auto) (2-11) % Eos % (Auto) (0-4) % Baso % (Auto) (0-2) % Lymph # (Auto) (1.2-4.9) X10*3/uL Wagoner # (Auto) (0.1-1.2) X10*3/uL Eos # (Auto) (0.0-0.4) X10*3/uL Baso # (Auto) (0.0-0.2) X10*3/uL Abs Immat Gran (auto) (0.00-0.03) X10*3/uL Absolute Neuts (auto) (2.0-8.3) x10*3/uL Absolute Nucleated RBC (0.0-0.012) X10*3/uL Nucleated RBC % (auto) (0.0-0.2) /100WBC PT (11.1-13.3) SEC INR (0.9-1.1) VBG pH 7.15 L* (7.32-7.43) VBG pCO2 100 mmHg VBG pO2 51 mmHg VBG HCO3 35 H (22-26) mmol/L VBG O2 Saturation 82.0 % VBG Base Excess 3.1 mmol/L Sodium (135-145) mmol/L Potassium (3.3-5.1) mmol/L Chloride (96-108) mmol/L Carbon Dioxide (22-29) mmol/L Anion Gap (12-20) BUN (9-16) mg/dL Creatinine (0.5-1.4) mg/dL Estim Creat Clear Calc Estimated GFR POC Glucose (60-115) mg/dL Random Glucose (60-115) mg/dL Lactic Acid 1.2 (0.5-2.0) mmol/L Calcium (8.4-10.2) mg/dL Magnesium (1.6-2.6) mg/dL Total Bilirubin (0.0-1.0) mg/dL Direct Bilirubin (0.0-0.5) mg/dL AST (5-31) U/L ALT (0-31) U/L Alkaline Phosphatase (39-117) U/L Troponin I High Sens (<3.5-17.0) ng/L B-Natriuretic Peptide 190 H (<100) pg/mL Total Protein (6.5-8.0) g/dL Albumin (3.5-5.0) g/dL TSH 1.76 (0.32-4.0) uIU/mL COVID-19 (LIS) (Negative) COVID-19 Clin Com 05/21/24 05/21/24 Range/Units 00:16 00:37 WBC (4.8-10.8) X10*3/uL RBC (4.20-5.50) X10*6/uL Hgb (12.0-16.0) g/dl Hct (37.0-47.0) % MCV (80.0-98.0) fL MCH (27.0-33.0) pg MCHC (31.0-35.0) g/dl RDW (11.0-16.0) % Plt Count (160-400) X10*3/uL MPV (9.4-12.3) fL Immature Gran % (Auto) (0.0-0.4) % Neut % (Auto) (45-73) % Lymph % (Auto) (20-40) % Wagoner % (Auto) (2-11) % Eos % (Auto) (0-4) % Baso % (Auto) (0-2) % Lymph # (Auto) (1.2-4.9) X10*3/uL Wagoner # (Auto) (0.1-1.2) X10*3/uL Eos # (Auto) (0.0-0.4) X10*3/uL Baso # (Auto) (0.0-0.2) X10*3/uL Abs Immat Gran (auto) (0.00-0.03) X10*3/uL Absolute Neuts (auto) (2.0-8.3) x10*3/uL Absolute Nucleated RBC (0.0-0.012) X10*3/uL Nucleated RBC % (auto) (0.0-0.2) /100WBC PT (11.1-13.3) SEC INR (0.9-1.1) VBG pH 7.18 L* (7.32-7.43) VBG pCO2 81 mmHg VBG pO2 42 mmHg VBG HCO3 30 H (22-26) mmol/L VBG O2 Saturation 74.0 % VBG Base Excess 0.4 mmol/L Sodium (135-145) mmol/L Potassium (3.3-5.1) mmol/L Chloride (96-108) mmol/L Carbon Dioxide (22-29) mmol/L Anion Gap (12-20) BUN (9-16) mg/dL Creatinine (0.5-1.4) mg/dL Estim Creat Clear Calc Estimated GFR POC Glucose 230 H (60-115) mg/dL Random Glucose (60-115) mg/dL Lactic Acid (0.5-2.0) mmol/L Calcium (8.4-10.2) mg/dL Magnesium (1.6-2.6) mg/dL Total Bilirubin (0.0-1.0) mg/dL Direct Bilirubin (0.0-0.5) mg/dL AST (5-31) U/L ALT (0-31) U/L Alkaline Phosphatase (39-117) U/L Troponin I High Sens (<3.5-17.0) ng/L B-Natriuretic Peptide (<100) pg/mL Total Protein (6.5-8.0) g/dL Albumin (3.5-5.0) g/dL TSH (0.32-4.0) uIU/mL COVID-19 (LIS) (Negative) COVID-19 Clin Com Independent Interpretation I performed an independent interpretation of an: CT Scan Interpretation: LUNGS: Significantly limited detailed evaluation of the parenchyma due to respiratory motion artifact. Multifocal regions of opacity are present in the right upper and bilateral lower lobes. At least a component of consolidation is suspected at these sites, though there may be some superimposed atelectasis in the lower lobes. MEDIASTINUM: Thyroid gland is not well evaluated due to motion artifact. There is gaseous distention of some segments of the esophagus. No discrete lymphadenopathy is seen. There is cardiomegaly without pericardial effusion. Unenhanced pulmonary arteries appear dilated, which may reflect pulmonary hypertension. Left-sided pacemaker leads extend to the right atrium and right ventricle. CORONARY ARTERY CALCIFICATION: Mild coronary artery calcification noted. PLEURA: No pneumothorax. Trace left pleural effusion suspected. AXILLA: No lymphadenopathy. UPPER ABDOMEN: Hypodense left renal lesion is partially visualized measuring approximately 5 cm, suggestive of a cyst. OSSEOUS STRUCTURES: Partially visualized left shoulder arthroplasty hardware. Degenerative changes are noted in the spine. CT/CT chest wo IV con IMPRESSION: 1. Significantly limited detailed evaluation of the lungs due to respiratory motion artifact. Multifocal regions of opacity are present in the right upper and bilateral lower lobes. At least a component of consolidation is suspected at these sites, though there may be some superimposed atelectasis in the lower lobes. Follow-up imaging in approximately 3 months would be helpful to assess for resolution. 2. Cardiomegaly. 3. Dilated pulmonary arteries, which may reflect pulmonary hypertension. 4. Suspected left renal cyst, not fully included on this examination. Correlation with nonemergent renal ultrasound is recommended. Critical Care Time Critical Care Time Critical Care Time: Yes Total Critical Care Time: 120 Attestation: I have personally provided critical care time. Time includes review of lab data, radiology results, discussion with consultants, and monitoring for potential decompensation. Intervention performed as documented. Discharge Plan Discharge Clinical Impression: Pneumonia, Acute hypoxic on chronic hypercapnic respiratory failure, Acute hyperkalemia, Acute hyperglycemia Patient Disposition: Admitted As Inpatient Print Language: Indonesian
[2024-05-20 22:11] LABS: Glucose Random 351 mg/dL (60-115)
[2024-05-20 22:12] LABS: B Type Natriuretic Peptide 190 pg/mL (<100)
[2024-05-20 22:12] LABS: Alanine Aminotransferase 10 U/L (0-31); Albumin Level 3.5 g/dL (3.5-5.0); Alkaline Phosphatase 89 U/L (39-117); Anion Gap 13 (12-20); Aspartate Amino Transferase 15 U/L (5-31); Bilirubin Direct < 0.2 mg/dL (0.0-0.5); Bilirubin Total 0.2 mg/dL (0.0-1.0); Blood Urea Nitrogen 28 mg/dL (9-16); Calcium 9.7 mg/dL (8.4-10.2); Carbon Dioxide 33 mmol/L (22-29); Chloride 105 mmol/L (96-108); Estimated Glomerular Filt Rate 59; Magnesium 2.4 mg/dL (1.6-2.6); Potassium 5.8 mmol/L (3.3-5.1); Sodium 145 mmol/L (135-145); Total Protein 7.5 g/dL (6.5-8.0)
[2024-05-20 22:14] LABS: Troponin-I High Sensitivity 12.1 ng/L (<3.5-17.0)
[2024-05-20] MEDS: levoFLOXacin/D5W 500 MG/100 ML PIGGYBACK 100 MG IV (22:20)
[2024-05-20] MEDS: 0.9 % Sodium Chloride 2,000 ML 999 ML IVCONT (22:20)
[2024-05-20] MEDS: Albuterol Sulfate (0.083%) 2.5 MG/3 ML VIAL.NEB 10 MG INHALE (22:24)
[2024-05-20] MEDS: methylPREDNISolone Sod Succ 125 MG/2 ML VIAL IVPUSH (22:26)
[2024-05-20] MEDS: Insulin Regular, Human 100 UNIT/ML 10 ML VIAL 10 UNIT IVPUSH (22:33)
[2024-05-20 22:35] LABS: TSH reflex Free T4 1.76 uIU/mL (0.32-4.0)
[2024-05-20] MEDS: Calcium Gluconate/NaCl,Iso-Osm 2 GM/100 ML PLAST..BAG IV (22:36)
[2024-05-20] MEDS: LORazepam 2 MG/ML VIAL IVPUSH (22:55)
--- NOTE | 2024-05-20 22:57 | PC.NURSE ---
pt is ripping off bipap and yelling across the room looking for Dale. reoriented pt to surroundings and educated need for mask to stay on. pt continues to rip off bipap mask. notified. sats 100% on bipap. pt medicated per nov.
[2024-05-21] VITALS (33 sets, daily range): BP systolic 102–154; BP diastolic 38–94; PULSE 60–90; RESP 11–33; TEMP 36.8–38.1; O2SAT 87–100; BMI 42.4
[2024-05-21 00:22] LABS: Venous Blood Gas Refer to POC result
[2024-05-21 00:23] LABS: VBG Base Excess 0.4 mmol/L; VBG HCO3 30 mmol/L (22-26); VBG pCO2 81 mmHg; VBG pH 7.18 (7.32-7.43); VBG pO2 42 mmHg
[2024-05-21 00:40] LABS: Glucose, Whole Blood 230 mg/dL (60-115)
--- NOTE | 2024-05-21 01:32 | PC.NURSE ---
late entry on arrival pt is on 15L Non rebreather. MD and RT called to bedside. pt is on 3L NC at baseline, per md nonrebreather removed and placed on 3L oxymask. sats remain 95%. ekg obtained. 2nd IV established. labs drawn. pt placed on continuous cardiac and o2 monitoring. RT then came to bedside and placed patient on bipap. pt initially tolerating well and sats 95-96%. ivf infusing per mar, d/t lab values IV insulin given, pt medicated per mar with abx, calcium gluconate, and solu medrol. pt requiring constant reorienting and verbal reassurance to keep bipap mask on. 2254 pt medicated with iv ativan with good effect. able to tolerate ct scan, RT at bedside to ct on monitor and oxymask at 15L. awaiting ICU admission.
--- NOTE | 2024-05-21 01:53 | PC.NURSE ---
at this time pt is awake and removing bipap, made aware. RT called to bedside. 1:1 sitter placed to reorient pt.
[2024-05-21] MEDS: Insulin Lispro 100 UNIT/ML 3 ML VIAL SUBCUT ×3 (03:22→18:16)
[2024-05-21 04:13] LABS: Glucose, Whole Blood 194 mg/dL (60-115)
--- NOTE | 2024-05-21 04:23 | PC.NURSE ---
report given to Tamera [facility]UNGU[facility] ICU and pt transferred with this RN and RT.
--- NOTE | 2024-05-21 04:26 | PM.CCHP ---
History of Present Illness Date of Service: 05/21/24 Attending physician on admission: Rosa Saxena Chief Complaint: Dyspnea Ms. Perezis a 63-year-old female with a PMH significant for COPD on 3L home O2, respiratory failure with hypercapnia, obesity hypoventilation syndrome, insulin-dependent diabetes, HTN, HLD, HFpEF, Heart block AV third degree with dual chamber pacemaker, decubitus ulcer, morbid obesity, mood disorder and ESBL UTI who presented to the ED from [facility] with hypoxia, oxygenating in the high 70s/low 80s on CPAP. On arrival, the patient was very somnolent, opened her eyes to voice, and was able to answer some questions. The patient?is well known to this facility, last admitted on 03/29/2024 for acute and chronic respiratory failure with hypercapnia. She does have a MOLST form completed on 12/23/2023. She is a full code.?? On arrival to the emergency room, the patient's blood pressure was 128/58, heart rate 77,?respiratory rate 25, O2 Sat 90% on 3L oxymask. Laboratory data significant for potassium 5.8, CO2 33, BUN 28, glucose 351, BNP 190. Lactic acid was 1.2.? VBG 7.15/100/51/35.? Imaging: CXR showed mild pulmonary edema. Chest CT: Possible pneumonia right upper and bilateral lower lobes. ED course: The patient was placed on BiPAP. She received a total of 2 L NS, Levaquin 500 mg, Solu-Medrol 125 mg, Calcium gluconate 2 g, Regular insulin 10 units, lorazepam 2 mg and albuterol.? Review of Systems Constitutional: Constitutional: Denies body ache(s), Denies chills, Denies fatigue, Denies headache(s), Denies malaise and Denies weight loss ENT: Denies headache(s), Denies nasal congestion and Denies sore throat Cardiovascular: Cardiovascular: Denies chest pain, Denies rapid heart rate, Denies leg edema and Reports dyspnea Respiratory: Respiratory: Reports dyspnea Gastrointestinal: Gastrointestinal: Denies diarrhea, Denies nausea and Denies vomiting Genitourinary: Genitourinary: Denies urinary hesitancy and Denies urinary urgency Musculoskeletal: Musculoskeletal: Denies muscle weakness, Denies numbness and Denies tingling Integumentary/Breasts: Skin/Breast: Denies lesions and Denies rash Neurologic: Reports confusion, Denies headache(s), Denies numbness and Denies tingling Psychiatric: Psychiatric: Reports confusion Endocrine: Endocrine: Denies fatigue, Denies polydipsia and Denies polyuria Hematologic/Lymphatic: Hematologic/Lymphatic: Denies easy bleeding, Denies easy bruising and Denies lymphadenopathy PMF Past Medical History Medical History Acute and chronic respiratory failure with hypercapnia Hypoventilation associated with obesity COPD (chronic obstructive pulmonary disease) Obesity hypoventilation syndrome Diabetes mellitus Acute and chronic respiratory failure with hypercapnia Morbid obesity Pressure injury of deep tissue of buttock Sepsis Morbid obesity with BMI of 50.0-59.9, adult Acute and chronic respiratory failure Pressure ulcer, stage II, skin breakdown Hypertrophic nonobstructive cardiomyopathy Presence of permanent cardiac pacemaker Acute on chronic respiratory failure with hypoxia and hypercapnia Metabolic encephalopathy Urinary tract infection due to ESBL Klebsiella Respiratory failure Presence of permanent cardiac pacemaker Sick sinus syndrome Morbid obesity Heart block AV third degree PAD (peripheral artery disease) Diabetic ulcer of foot associated with diabetes mellitus due to underlying condition, with fat layer exposed Atelectasis of both lungs Respiratory failure with hypoxia and hypercapnia Hypoventilation associated with obesity syndrome SMILEY (obstructive sleep apnea) Morbid obesity Pulmonary embolism CHF (congestive heart failure) Clostridium difficile infection Hypertension Diabetes mellitus, type 2 Depression Arthritis Anemia Surgical History Surgical History History of total knee replacement Social History Social History Household Members: None Housing: [facility] Housing Other:: Came from [facility] Are you a primary reservoir caretaker to a significant other at home: No Do you presently have visiting nurse or other home services: Yes Unable to assess alcohol history related to: Unknown Alcohol intake: never Patient Tobacco Use Status: Former Tobacco user Tobacco use type: Cigarette Cigarette Packs Per Day: 20 Cigarettes Per Day: 400.0 Years Smoked: 20 Smoked in Last 30 Days: No e-Cigarette/Vaping Use: Never Used Second Hand Smoke Exposure: No Use of substances other than those prescribed or required for medical reasons: No Substance Use Type: Unknown Advance Directives: Yes Advance Directives on File: Yes Advance Directives Date on File: 01/07/23 service: No Current occupational status: disabled Meds Allergies Allergy/AdvReac Type Severity Reaction Status Date / Time latex Allergy Unknown Unknown Verified 05/20/24 21:20 adhesive tape AdvReac Unknown Unknown Verified 05/20/24 21:20 bupropion [From Wellbutrin] AdvReac Unknown Unknown Verified 05/20/24 21:20 ibuprofen AdvReac Unknown Unknown Verified 05/20/24 21:20 Active Medications: Current Medications Albuterol Sulfate (Albuterol Sulfate (0.083%) 2.5 Mg/3 Ml Vial.Neb) 2.5 mg INHALE Q4H PRN PRN Reason: Shortness of Breath/Wheezing Albuterol/Ipratropium (Albuterol/Iprat 2.5/0.5mg 3 Ml Ampul.Neb) 3 ml INHALE RQ4H WHILE AWAKE [facility] Glucose (Glucose Gel 15 Gm Gel..Gram.) 15 gm PO Q15M PRN; Protocol PRN Reason: per Hypoglycemia Standing Ord. Heparin Sodium (Porcine) (Heparin Sodium,Porcine 5,000 Unit/Ml Vial) 5,000 unit SUBCUT Q8H [facility] Dextrose (D10) 250 mls @ 750 mls/hr IV Q15M PRN; Protocol PRN Reason: per Hypoglycemia Standing Ord. Insulin Human Lispro (Insulin Lispro 100 Unit/Ml 3 Ml Vial) 0 unit SUBCUT Q6H [facility]; Protocol Last Admin: 05/21/24 03:22 Dose: 4 unit Nystatin (Nystatin Powder 15 Gm Bottle) 1 appl TOPICAL TID ROSSY; Protocol Home Medications ?Medication ?Instructions ?Recorded ?Confirmed ?Last Taken ?Type acetaminophen 325 mg tablet 325 mg PO Q4H PRN Fever Or Pain 11/18/21 03/25/24 Unknown History atorvastatin 80 mg tablet 80 mg PO BEDTIME 11/18/21 03/25/24 Unknown History ferrous sulfate 325 mg (65 mg 325 mg PO DAILY 11/18/21 03/25/24 Unknown History iron) tablet insulin lispro 100 unit/mL See Protocol subcut QIDACHS 11/18/21 03/25/24 Unknown History subcutaneous pen melatonin 3 mg tablet 3 mg PO BEDTIME 11/18/21 03/25/24 Unknown History sennosides 8.6 mg tablet (senna) 17.2 mg PO BEDTIME 11/18/21 03/25/24 Unknown History sertraline 100 mg tablet 200 mg PO DAILY 11/18/21 03/25/24 Unknown History tizanidine 4 mg tablet 4 mg PO BEDTIME PRN Muscle Spasm 11/18/21 03/25/24 Unknown History aspirin 81 mg chewable tablet 81 mg PO DAILY 01/05/22 03/25/24 Unknown History bupropion HCl 300 mg 24 hr tablet, 300 mg PO DAILY 04/09/22 03/25/24 Unknown History extended release Lactobacillus rhamnosus GG 10 1 cap PO BID 10/09/22 03/25/24 Unknown History billion cell capsule (Culturelle) bupropion HCl 150 mg 24 hr tablet, 1 tab PO DAILY 10/09/22 03/25/24 Unknown History extended release ipratropium 0.5 mg-albuterol 3 mg 3 ml inhalation TID wheezing 10/09/22 03/25/24 Unknown History (2.5 mg base)/3 mL nebulization soln potassium chloride 10 mEq 10 meq PO DAILY 10/09/22 03/25/24 Unknown History tablet,extended release bisacodyl 10 mg rectal suppository 10 mg MN DAILY PRN Constipation 10/21/22 03/25/24 Unknown History sodium phosphates 19 gram-7 118 ml MN DAILY PRN Constipation 11/09/22 03/25/24 Unknown History gram/118 mL enema (Fleet Enema) metformin 500 mg tablet 500 mg PO BID 12/27/22 03/25/24 Unknown History semaglutide 0.25 mg or 0.5 mg (2 0.5 mg subcut WE 12/27/22 03/25/24 Unknown History mg/3 mL) subcutaneous pen injector (Ozempic) cholecalciferol (vitamin D3) 25 25 mcg PO DAILY 04/04/23 03/25/24 Unknown History mcg (1,000 unit) tablet insulin glargine 100 unit/mL 25 unit subcut DAILY 04/04/23 03/25/24 Unknown History subcutaneous solution (Lantus U-100 Insulin) losartan 25 mg tablet 25 mg PO DAILY 04/04/23 03/25/24 Unknown History megestrol 400 mg/10 mL (40 mg/mL) 400 mg PO TID 04/04/23 03/25/24 Unknown History oral suspension olopatadine 0.2 % eye drops 1 drp ophthalmic (eye) QSHIFT 04/04/23 03/25/24 Unknown History cyanocobalamin (vitamin B-12) 1,000 mcg PO DAILY 04/21/23 03/25/24 Unknown History 1,000 mcg capsule magnesium hydroxide 400 mg/5 mL 30 ml PO DAILY PRN Constipation 10/02/23 03/25/24 Unknown History oral suspension (Milk of Magnesia) aripiprazole 2 mg tablet 2 mg PO DAILY 10/28/23 03/25/24 Unknown History empagliflozin 25 mg tablet 25 mg PO DAILY 02/16/24 03/25/24 Unknown History (Jardiance) fluticasone 113 mcg-salmeterol 14 1 inh inhalation DAILY 02/16/24 03/25/24 Unknown History mcg/actuation breath activated powdr magnesium citrate 300 ml PO DAILY PRN Constipation 02/16/24 03/25/24 Unknown History polyethylene glycol 3350 17 17 g PO DAILY PRN Constipation 02/16/24 03/25/24 Unknown History gram/dose oral powder (Miralax) erythromycin 5 mg/gram (0.5 %) eye 1 inch ophthalmic (eye) BEDTIME 03/25/24 03/25/24 Unknown History ointment Physical Exam Vital Signs: Vital Signs: Last Vital Signs Temp 100.2 F 05/21/24 03:47 Pulse 77 05/21/24 03:47 Resp 20 05/21/24 03:55 BP 116/47 L 05/21/24 03:47 Pulse Ox 94 05/21/24 03:47 O2 Del Method BiPAP 05/21/24 03:47 O2 Flow Rate 15 05/21/24 00:20 Oxygen Flow Rate 3 05/20/24 21:30 BMI result Body Mass Index 44.5 Const: General: confusion, ill appearing and lethargic (arousable to voice, falls back to sleep) Nutritional Appearance: obese Orientation/consciousness: confusion and lethargic (arousable to voice, falls back to sleep) HEENT: Head: Yes normocephalic and Yes atraumatic General nose exam: Normal external nose present (Nares patent, septum midline, sinuses nontender bilaterally.) Neck: Neck: Yes supple (no thyromegaly, trachea midline.) Carotids: normal carotid upstroke Resp: Effort & Inspection: no respiratory distress and no use of accessory muscles Auscultation: crackles on the right at the base and diminished lung sounds bilateral Cardio: Jugular venous distension: no JVD Rate: regular rate Rhythm: regular rhythm Heart sounds: no gallops, no murmurs and no rubs Peripheral pulses: Peripheral pulses 2+ throughout GI: Palpation (GI): Soft to palpation (nondistended.) and nontender Skin: General skin exam: other (pressure injury to desiree buttocks and heels) Lesions: lesions noted Rashes: rash noted Neuro: General: confusion Extrem: General: Yes full ROM, Yes capillary refill normal and Yes no clubbing, cyanosis or edema Psych: Other: somnolent Results Labs 05/20/24 21:30 05/20/24 21:31 Labs: Laboratory Results - last 24 hr 05/20/24 05/20/24 05/20/24 21:14 21:30 21:31 MCV 101.1 H MCH 28.4 MCHC 28.1 L RDW 14.6 Plt Count 249 MPV 10.4 Immature Gran % (Auto) 0.4 Neut % (Auto) 86.0 H Lymph % (Auto) 6.2 L [place] % (Auto) 6.6 Eos % (Auto) 0.4 Baso % (Auto) 0.4 Lymph # (Auto) 0.7 L [place] # (Auto) 0.7 Eos # (Auto) 0.1 Baso # (Auto) 0.0 Abs Immat Gran (auto) 0.05 H Absolute Neuts (auto) 9.7 H Absolute Nucleated RBC 0.000 Nucleated RBC % (auto) 0.0 PT 11.6 INR 1.0 VBG pH VBG pCO2 VBG pO2 VBG HCO3 VBG O2 Saturation VBG Base Excess Anion Gap 13 Estim Creat Clear Calc 91.0 Estimated GFR 59 POC Glucose 295 H Random Glucose 351 H* Lactic Acid Calcium 9.7 Magnesium 2.4 Total Bilirubin 0.2 Direct Bilirubin < 0.2 AST 15 ALT 10 Alkaline Phosphatase 89 Troponin I High Sens 12.1 B-Natriuretic Peptide Total Protein 7.5 Albumin 3.5 TSH COVID-19 (LIS) Negative COVID-19 Clin Com See Note 05/20/24 05/20/24 05/20/24 21:32 21:41 21:48 MCV MCH MCHC RDW Plt Count MPV Immature Gran % (Auto) Neut % (Auto) Lymph % (Auto) [place] % (Auto) Eos % (Auto) Baso % (Auto) Lymph # (Auto) [place] # (Auto) Eos # (Auto) Baso # (Auto) Abs Immat Gran (auto) Absolute Neuts (auto) Absolute Nucleated RBC Nucleated RBC % (auto) PT INR VBG pH 7.15 L* VBG pCO2 100 VBG pO2 51 VBG HCO3 35 H VBG O2 Saturation 82.0 VBG Base Excess 3.1 Anion Gap Estim Creat Clear Calc Estimated GFR POC Glucose Random Glucose Lactic Acid 1.2 Calcium Magnesium Total Bilirubin Direct Bilirubin AST ALT Alkaline Phosphatase Troponin I High Sens B-Natriuretic Peptide 190 H Total Protein Albumin TSH 1.76 COVID-19 (LIS) COVID-19 [employer] 05/21/24 05/21/24 05/21/24 00:16 00:37 02:40 MCV MCH MCHC RDW Plt Count MPV Immature Gran % (Auto) Neut % (Auto) Lymph % (Auto) [place] % (Auto) Eos % (Auto) Baso % (Auto) Lymph # (Auto) [place] # (Auto) Eos # (Auto) Baso # (Auto) Abs Immat Gran (auto) Absolute Neuts (auto) Absolute Nucleated RBC Nucleated RBC % (auto) PT INR VBG pH 7.18 L* VBG pCO2 81 VBG pO2 42 VBG HCO3 30 H VBG O2 Saturation 74.0 VBG Base Excess 0.4 Anion Gap Estim Creat Clear Calc Estimated GFR POC Glucose 230 H 194 H Random Glucose Lactic Acid Calcium Magnesium Total Bilirubin Direct Bilirubin AST ALT Alkaline Phosphatase Troponin I High Sens B-Natriuretic Peptide Total Protein Albumin TSH COVID-19 (LIS) COVID-19 [employer] Imaging Radiologist's Impressions: Impressions Chest X-Ray 05/20/24 21:26 IMPRESSION: Mild cardiomegaly. Mild pulmonary edema. No consolidation. Electronically signed by: Good Ruano DO 05/20/2024 10:[address] 05/21/24 00:00 IMPRESSION: 1. Significantly limited detailed evaluation of the lungs due to respiratory motion artifact. Multifocal regions of opacity are present in the right upper and bilateral lower lobes. At least a component of consolidation is suspected at these sites, though there may be some superimposed atelectasis in the lower lobes. Follow-up imaging in approximately 3 months would be helpful to assess for resolution. 2. Cardiomegaly. 3. Dilated pulmonary arteries, which may reflect pulmonary hypertension. 4. Suspected left renal cyst, not fully included on this examination. Correlation with nonemergent renal ultrasound is recommended. Electronically signed by: Sohail Pearson MD 05/21/2024 01:08 AM EDT RP Assessment and Plan (1) Acute hyperglycemia: Status: Acute (2) Acute hyperkalemia: Status: Acute (3) Acute hypoxic on chronic hypercapnic respiratory failure: Status: Acute (4) Pneumonia: Qualifiers: Laterality: unspecified laterality Lung location: unspecified part of lung Pneumonia type: due to unspecified organism Qualified Code(s): J18.9 - Pneumonia, unspecified organism Status: Acute (5) Pressure injury of deep tissue of buttock: Qualifiers: Laterality: unspecified laterality Qualified Code(s): L89.306 - Pressure-induced deep tissue damage of unspecified buttock Status: Acute (6) Pressure injury of deep tissue of right heel: Status: Acute Plan 63-year-old female with a PMH significant for COPD on 3L home O2, respiratory failure with hypercapnia, obesity hypoventilation syndrome, insulin-dependent diabetes, HTN, HLD, HFpEF, Heart block AV third degree dual chamber pacemaker, decubitus ulcer, morbid obesity, mood disorder and ESBL UTI admitted to the ICU for management of acute and chronic respiratory failure with hypercapnia. Neuro:? Acute metabolic encephalopathy secondary to CO2 narcosis, expect to improve with resolution of hypercapnia. Cardiac:? Exacerbation of underlying chronic diastolic congestive heart failure. IV diuresis x1. Pulmonary: Acute on chronic hypercapnic and hypoxic respiratory failure requiring BiPAP support.?Titrate off as tolerated.?Underlying COPD on 2-3 L. Maintain oxygen saturation 88-92%. Renal:? No acute issues? Monitor renal indices and urine output. Endo:? Underlying IDDM. SS insulin per protocol.? GI:? No acute issues. ID:? Possible pneumonia. UA sent. Blood cultures pending. Given empiric antibiotics. ? No concern for sepsis;? no fever, no episodes of hypotension, lactic acid is normal. Heme/Onc:? No acute issues. Psych:? No acute issues. Continue home meds for mood disorder once off BiPAP Miscellaneous:? Decubitus ulcers.? Usual care. Will place wound consult. Prophylaxis:? Heparin/pneumatic hoses Diet:? NPO? Case discussed with Dr. Saxena. Total time managing care of this patient today: 75 minutes.
--- NOTE | 2024-05-21 05:00 | HO.SKINPHOTO ---
Location: Bilateral buttock Category: DTI Present on admission Location: Left heel Present on admission
--- NOTE | 2024-05-21 05:04 | PC.NURSE ---
Pt arrived to ICU from the ED on a stretcher w/RN and RT d/t pt being on bipap. Pt aox2, to place and person. She is confused and lethargic. Lungs are dim, crackles in right base. Coccyx is macerated, barrier cream and foam dsg applied skin is intact at this time; left heel reddened and boggy, BL heels elevated; BL second toes scabbed; fungus and moisture under ABD folds interdry in placed. Sood catheter patent, draining CYU - UA sent. Bed alarm on, call chun within reach.
[2024-05-21 05:21] LABS: Basophils Percent Auto 0.4 % (0-2); Hematocrit 49.3 % (37.0-47.0); Hemoglobin 13.8 g/dl (12.0-16.0); Imm Gran Abs Auto 0.04 X10*3/uL (0.00-0.03); Imm Gran Pct Auto 0.5 % (0.0-0.4); Lymphocytes Absolute Auto 0.3 X10*3/uL (1.2-4.9); Lymphocytes Percent Auto 3.6 % (20-40); MANUAL DIFF FLAG SCAN; Mean Corpuscular Hemoglobin 28.5 pg (27.0-33.0); Mean Corpuscular Volume 101.9 fL (80.0-98.0); Mean Platelet Volume 11.1 fL (9.4-12.3); Monocytes Absolute Auto 0.1 X10*3/uL (0.1-1.2); Neutrophils Absolute Auto 7.7 x10*3/uL (2.0-8.3); Neutrophils Percent Auto 94.5 % (45-73); PLT CLUMP 1; Red Blood Count 4.84 X10*6/uL (4.20-5.50); Red Cell Distribution Width 14.7 % (11.0-16.0); SCAN SMEAR FLAG 1
[2024-05-21 05:22] LABS: White Blood Count 8.1 X10*3/uL (4.8-10.8)
[2024-05-21] MEDS: Furosemide 40 MG/4 ML VIAL IVPUSH (05:22)
[2024-05-21] MEDS: methylPREDNISolone Sod Succ 125 MG/2 ML VIAL 60 MG IVPUSH ×4 (05:22→22:00)
[2024-05-21 05:50] LABS: Platelet Count 189 X10*3/uL (160-400)
[2024-05-21 05:51] LABS: SLIDE REVIEW VERIFIED
[2024-05-21 06:03] LABS: Appearance Urine Clear; Color Urine Yellow; Glucose Urine UA >=1000 mg/dL (Negative); Leukocyte Esterase Urine Negative (Negative); Nitrite Urine Positive (Negative); Specific Gravity - Urine >= 1.030 (1.005-1.025); UMIC TRIGGER UACC YES; Urine Blood Moderate (2+) (Negative); Urine Ketones Negative (Negative); Urine Protein Negative (Neg-Trace)
[2024-05-21 06:14] LABS: VBG Base Excess 2.6 mmol/L; VBG HCO3 30 mmol/L (22-26); VBG pCO2 61 mmHg; VBG pO2 41 mmHg
[2024-05-21 06:21] LABS: Bacteria Urine 1+ (None Seen); Squamous Epithelial Cell Urine 0-2 /HPF (0-2); UACC Culture Trigger YES; WBC Clumps Urine Present
[2024-05-21 06:28] LABS: Venous Blood Gas Refer to POC result
[2024-05-21 07:29] LABS: Albumin Level 3.5 g/dL (3.5-5.0); Anion Gap 15 (12-20); Blood Urea Nitrogen 25 mg/dL (9-16); Calcium 9.6 mg/dL (8.4-10.2); Carbon Dioxide 27 mmol/L (22-29); Chloride 108 mmol/L (96-108); Estimated Glomerular Filt Rate > 60; Glucose Random 219 mg/dL (60-115); Potassium 4.9 mmol/L (3.3-5.1); Sodium 145 mmol/L (135-145)
[2024-05-21] MEDS: Albuterol/Iprat 2.5/0.5MG 3 ML AMPUL.NEB INHALE ×4 (07:41→19:48)
[2024-05-21] MEDS: Heparin Sodium,Porcine 5,000 UNIT/ML VIAL 5000 UNIT SUBCUT ×2 (08:04→16:31)
--- NOTE | 2024-05-21 09:58 | PHA.MEDREC ---
Addendum entered by Miguel Gong [facility] 05/21/24 11:22: MED REC CHECKED BY [facility] Original Note: Pharmacy Consult ? Medication Reconciliation Pharmacy has completed the medication reconciliation. Confirmed medications with list provided from [facility] and [facility].
[2024-05-21 10:24] LABS: ABG Base Excess 7.1 mmol/L; ABG HCO3 34 mmol/L (22-26); ABG pCO2 62 mmHg (32-45); ABG pH 7.34 (7.35-7.45); ABG pO2 67 mmHg (83-108)
[2024-05-21 11:52] LABS: Glucose, Whole Blood 225 mg/dL (60-115)
--- NOTE | 2024-05-21 13:40 | MHC.CM.PN ---
[facility]. Pt is presently on BiPAP: information obtained from EMR, Pt's HCP (spouse) and RN at SNF. Pt is A&O x4: requires physical assist for ADL's, is primarily w/c bound/lift assist and is O2 dependent. Pt will return to [facility] when medically stable via BLS transport. HCP on file. CM to follow.
[2024-05-21] MEDS: Nystatin Powder 15 GM BOTTLE 1 APPL TOPICAL ×2 (17:14→22:00)
[2024-05-21 18:15] LABS: Glucose, Whole Blood 228 mg/dL (60-115)
[2024-05-22] VITALS (25 sets, daily range): BP systolic 130–175; BP diastolic 58–86; PULSE 60–83; RESP 15–31; TEMP 36.6–37.9; O2SAT 92–100; BMI 43.4
[2024-05-22 00:02] LABS: Glucose, Whole Blood 208 mg/dL (60-115)
[2024-05-22] MEDS: Insulin Lispro 100 UNIT/ML 3 ML VIAL SUBCUT ×4 (00:09→21:02)
[2024-05-22] MEDS: Heparin Sodium,Porcine 5,000 UNIT/ML VIAL 5000 UNIT SUBCUT ×3 (01:33→18:30)
[2024-05-22] MEDS: methylPREDNISolone Sod Succ 125 MG/2 ML VIAL 60 MG IVPUSH ×2 (04:58→11:56)
[2024-05-22 05:02] LABS: VBG Base Excess 7.4 mmol/L; VBG HCO3 30 mmol/L (22-26); VBG pCO2 37 mmHg; VBG pH 7.51 (7.32-7.43); VBG pO2 67 mmHg
[2024-05-22 05:04] LABS: MANUAL DIFF FLAG NO
[2024-05-22 05:06] LABS: Basophils Percent Auto 0.2 % (0-2); Hemoglobin 11.6 g/dl (12.0-16.0); Imm Gran Abs Auto 0.02 X10*3/uL (0.00-0.03); Imm Gran Pct Auto 0.3 % (0.0-0.4); Lymphocytes Absolute Auto 0.7 X10*3/uL (1.2-4.9); Lymphocytes Percent Auto 11.3 % (20-40); Mean Corpuscular HGB Conc 30.5 g/dl (31.0-35.0); Mean Corpuscular Hemoglobin 28.2 pg (27.0-33.0); Mean Corpuscular Volume 92.5 fL (80.0-98.0); Mean Platelet Volume 10.8 fL (9.4-12.3); Monocytes Absolute Auto 0.2 X10*3/uL (0.1-1.2); Monocytes Percent Auto 3.8 % (2-11); Neutrophils Absolute Auto 5.4 x10*3/uL (2.0-8.3); Neutrophils Percent Auto 84.4 % (45-73); Platelet Count 235 X10*3/uL (160-400); Red Blood Count 4.11 X10*6/uL (4.20-5.50); Red Cell Distribution Width 14.6 % (11.0-16.0); White Blood Count 6.4 X10*3/uL (4.8-10.8)
[2024-05-22 05:10] LABS: Venous Blood Gas Refer to POC result
[2024-05-22 05:21] LABS: Albumin Level 3.2 g/dL (3.5-5.0); Anion Gap 13 (12-20); Blood Urea Nitrogen 37 mg/dL (9-16); Calcium 9.4 mg/dL (8.4-10.2); Carbon Dioxide 27 mmol/L (22-29); Chloride 106 mmol/L (96-108); Creatinine Clr Calc Pharmacy 96.6; Estimated Glomerular Filt Rate > 60; Glucose Random 226 mg/dL (60-115); Phosphorus 2.1 mg/dL (2.7-4.5); Potassium 4.2 mmol/L (3.3-5.1); Sodium 142 mmol/L (135-145)
[2024-05-22] MEDS: Albuterol/Iprat 2.5/0.5MG 3 ML AMPUL.NEB INHALE ×3 (07:52→19:58)
[2024-05-22] MEDS: Nystatin Powder 15 GM BOTTLE 1 APPL TOPICAL ×3 (08:33→21:02)
[2024-05-22] MEDS: Sodium,Potassium Phosphates POWD.PACK 2 PACKET PO (08:33)
[2024-05-22 11:48] LABS: Glucose, Whole Blood 208 mg/dL (60-115)
--- NOTE | 2024-05-22 13:03 | P.PNCC_ITS ---
Subjective Subjective Date of Service: 05/22/24 Interval History: Remained on BiPAP overnight, off BiPAP since this morning doing well. Her air entry in both lungs is much better when compared to yesterday Critical Care Time (minutes): 30 Physical Exam 2 Vital Signs: Vital Signs: Last Vital Signs Temp 99.0 F 05/22/24 11:58 Pulse 74 05/22/24 11:58 Resp 16 05/22/24 11:58 BP 169/82 H 05/22/24 11:58 Pulse Ox 95 05/22/24 11:58 O2 Del Method Nasal Cannula 05/22/24 11:58 O2 Flow Rate 3 05/22/24 11:58 FiO2 24 05/22/24 08:00 Oxygen Flow Rate 3 05/20/24 21:30 BMI result Body Mass Index 43.4 General: Not in acute distress Nutritional Appearance: well nourished and overweight Eyes: appearance normal, both eyes and all related structures; Alignment and Position: alignment normal and position normal Neck: No lymphadenopathy, no thyromegaly Resp: bilateral air entry equal, air entry significantly improved when compared to yesterday, occasional wheeze heard Cardio: Regular rate, regular rhythm; Heart sounds: S1 normal heart sound present and S2 normal heart sound present GI: soft, nontender, no guarding, no hepatosplenomegaly : bladder normal to inspection, bladder normal to palpation, no renal angle tenderness Skin: no rashes or lesions noted and elasticity normal Neuro: oriented to person, oriented to place, oriented to time and moves all extremities Objective Data Labs 05/22/24 04:52 05/22/24 04:52 Labs: Laboratory Results - last 24 hr 05/21/24 05/21/24 05/22/24 18:01 23:56 04:52 WBC 6.4 RBC 4.11 L Hgb 11.6 L Hct 38.0 D MCV 92.5 D MCH 28.2 MCHC 30.5 L RDW 14.6 Plt Count 235 MPV 10.8 Immature Gran % (Auto) 0.3 Neut % (Auto) 84.4 H Lymph % (Auto) 11.3 L [place] % (Auto) 3.8 Eos % (Auto) 0.0 Baso % (Auto) 0.2 Lymph # (Auto) 0.7 L [place] # (Auto) 0.2 Eos # (Auto) 0.0 Baso # (Auto) 0.0 Abs Immat Gran (auto) 0.02 Absolute Neuts (auto) 5.4 Absolute Nucleated RBC 0.000 Nucleated RBC % (auto) 0.0 VBG pH 7.51 H VBG pCO2 37 VBG pO2 67 VBG HCO3 30 H VBG O2 Saturation 96.0 VBG Base Excess 7.4 Sodium 142 Potassium 4.2 Chloride 106 Carbon Dioxide 27 Anion Gap 13 BUN 37 H Creatinine 0.88 Estim Creat Clear Calc 96.6 Estimated GFR > 60 POC Glucose 228 H 208 H Random Glucose 226 H Calcium 9.4 Phosphorus 2.1 L Magnesium 2.0 Albumin 3.2 L 05/22/24 11:44 WBC RBC Hgb Hct MCV MCH MCHC RDW Plt Count MPV Immature Gran % (Auto) Neut % (Auto) Lymph % (Auto) [place] % (Auto) Eos % (Auto) Baso % (Auto) Lymph # (Auto) [place] # (Auto) Eos # (Auto) Baso # (Auto) Abs Immat Gran (auto) Absolute Neuts (auto) Absolute Nucleated RBC Nucleated RBC % (auto) VBG pH VBG pCO2 VBG pO2 VBG HCO3 VBG O2 Saturation VBG Base Excess Sodium Potassium Chloride Carbon Dioxide Anion Gap BUN Creatinine Estim Creat Clear Calc Estimated GFR POC Glucose 208 H Random Glucose Calcium Phosphorus Magnesium Albumin Microbiology Microbiology Results: Microbiology 05/21/24 Unknown Urine Catheterized - Sood Catheter Urine Culture - Final 05/20/24 21:48 Blood - Venous Blood Culture - Preliminary No growth after 24 hours. 05/20/24 21:30 Blood - Venous Blood Culture - Preliminary No growth after 24 hours. Progress Note: A&P Assessment and plan (1) Acute hypoxic on chronic hypercapnic respiratory failure: Status: Acute (2) Pneumonia: Status: Acute (3) Acute hyperglycemia: Status: Acute (4) Acute hyperkalemia: Status: Acute (5) Hypoventilation associated with obesity: Status: Acute (6) Pressure injury of deep tissue of buttock: Status: Acute (7) Dermatitis, unspecified: Status: Acute (8) UTI (urinary tract infection): Status: Acute (9) Urinary tract infection due to ESBL Klebsiella: Status: Acute Plan 63-year-old lady with past medical history of COPD on 3L home O2, respiratory failure with hypercapnia, obesity hypoventilation syndrome, insulin-dependent diabetes, HTN, HLD, HFpEF, 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 Labs also concerning for possible UTI, she has history of ESBL UTI in the past. Acute on chronic hypoxemic respiratory failure: Secondary to COPD exacerbation, has COPD requiring 3 L per minute home oxygen Has underlying obesity hypoventilation syndrome On nighttime BiPAP, currently stable during the daytime without the BiPAP support Chest CT suggestive of bilateral lung consolidation, has significant motion artifact On Duo nebs around the clock, we will decrease the Solu-Medrol to p.o. prednisone 40 mg daily We will get MRSA nares to check if she needs any MRSA coverage, currently on meropenem given her history of ESBL UTI in march 2024 Urinary tract infection: Cultures negative so far Has history of ESBL Klebsiella in March Or meropenem for antibiotic coverage, can downgrade if the cultures come back negative Insulin-dependent diabetes mellitus: On 25 units of Lantus at home, decrease the dose to 10 units Restarted Jardiance, withhold metformin On sliding scale insulin as needed Her sugars are in 200s but she is also getting methylprednisone 60 mg q.6 hours which we will cut down today Hypertension: Hyperlipidemia: We will restart home amlodipine 5 mg and losartan 25 mg Restarted home aspirin and atorvastatin Third-degree heart block, currently is in a paced rhythm status post pacemaker insertion Psych: On multiple home psych meds most of them restarted Quality Stroke Does the patient have a stroke diagnosis?: No VTE Prior VTE?: No VTE Risk Level:: Medical - moderate - high VTE Device Contraindication: N/A - Device Ordered VTE Drug Contraindication: N/A - Med Ordered
[2024-05-22] MEDS: Insulin Glargine,Hum.rec.anlog 100 UNIT/ML 10 ML VIAL 10 UNIT SUBCUT (14:11)
[2024-05-22] MEDS: amLODIPine Besylate 5 MG TABLET PO (14:11)
[2024-05-22] MEDS: Spironolactone 25 MG TABLET PO (14:11)
[2024-05-22] MEDS: Sertraline HCL 100 MG TABLET 200 MG PO (14:11)
[2024-05-22] MEDS: Losartan Potassium 25 MG TABLET PO (14:11)
[2024-05-22] MEDS: Furosemide 40 MG TABLET PO (14:11)
[2024-05-22] MEDS: Aspirin 81 MG TAB.CHEW PO (14:11)
[2024-05-22] MEDS: ARIPiprazole 2 MG TABLET PO (15:09)
[2024-05-22] MEDS: Empagliflozin 25 MG TABLET PO (15:09)
[2024-05-22] MEDS: buPROPion HCl XL 150 MG TAB.ER.24H PO (15:09)
[2024-05-22 16:59] LABS: Glucose, Whole Blood 224 mg/dL (60-115)
[2024-05-22 20:52] LABS: Glucose, Whole Blood 250 mg/dL (60-115)
[2024-05-22] MEDS: Atorvastatin Calcium 80 MG TABLET PO (20:57)
[2024-05-23] MEDS: Heparin Sodium,Porcine 5,000 UNIT/ML VIAL 5000 UNIT SUBCUT ×2 (01:21→08:38)
[2024-05-23 03:35] VITALS: BP 149/70; PULSE 64; RESP 20; TEMP 36.2; O2SAT 95
[2024-05-23 04:49] VITALS: PULSE 69; RESP 19; O2SAT 92
[2024-05-23 06:00] VITALS: BMI 41.3
[2024-05-23 07:35] VITALS: PULSE 78; RESP 20; TEMP 36.7; O2SAT 92
[2024-05-23] MEDS: Albuterol/Iprat 2.5/0.5MG 3 ML AMPUL.NEB INHALE ×2 (08:25→11:14)
[2024-05-23] MEDS: Insulin Lispro 100 UNIT/ML 3 ML VIAL SUBCUT ×4 (08:25→12:15)
[2024-05-23 08:26] VITALS: PULSE 78; RESP 18; O2SAT 93
[2024-05-23] MEDS: buPROPion HCl XL 150 MG TAB.ER.24H PO (08:39)
[2024-05-23] MEDS: ARIPiprazole 2 MG TABLET PO (08:39)
[2024-05-23] MEDS: Empagliflozin 25 MG TABLET PO (08:39)
[2024-05-23] MEDS: predniSONE 10 MG TABLET 50 MG PO (08:39)
[2024-05-23] MEDS: Sertraline HCL 100 MG TABLET 200 MG PO (08:39)
[2024-05-23] MEDS: Spironolactone 25 MG TABLET PO (08:39)
[2024-05-23] MEDS: Cholecalciferol (Vitamin D3) 25 MCG TABLET PO (08:39)
[2024-05-23] MEDS: Furosemide 40 MG TABLET PO (08:39)
[2024-05-23] MEDS: Insulin Glargine,Hum.rec.anlog 100 UNIT/ML 10 ML VIAL 10 UNIT SUBCUT ×2 (08:40→13:40)
[2024-05-23] MEDS: Losartan Potassium 25 MG TABLET PO (08:40)
[2024-05-23] MEDS: Aspirin 81 MG TAB.CHEW PO (08:40)
[2024-05-23 08:50] LABS: Glucose, Whole Blood 289 mg/dL (60-115)
[2024-05-23] MEDS: amLODIPine Besylate 5 MG TABLET PO (09:17)
[2024-05-23] MEDS: Cyanocobalamin (Vitamin B-12) 1,000 MCG TABLET 1000 MCG PO (09:27)
[2024-05-23 11:03] VITALS: BP 175/77; PULSE 80; RESP 20; TEMP 36.2; O2SAT 94
[2024-05-23 11:14] VITALS: PULSE 72; RESP 18; O2SAT 93
--- NOTE | 2024-05-23 11:37 | P.DS_ITS ---
DS: Providers Provider Date of Service: 05/23/24 Date of admission: 05/21/24 02:10 Date of discharge: 05/23/24 Primary care physician: Tita Bal MD Consults: 05/21/24 04:23 Consult to Wound Care Routine Reason for consultation: pressure injuries Has provider been notified: No 05/21/24 04:55 Consult to Wound Care Routine Reason for consultation: Fungus under ABD folds; maceration to coccyx DS: Diagnosis Discharge Diagnosis (1) Acute hypoxic on chronic hypercapnic respiratory failure: Status: Acute (2) Pneumonia: Status: Acute (3) Acute hyperglycemia: Status: Acute (4) Acute hyperkalemia: Status: Acute (5) Hypoventilation associated with obesity: Status: Acute (6) Pressure injury of deep tissue of buttock: Status: Acute (7) Dermatitis, unspecified: Status: Acute (8) UTI (urinary tract infection): Status: Acute (9) Urinary tract infection due to ESBL Klebsiella: Status: Acute DS: Summary Hospital Course Hospital Course: Admission note HPI per ICU provider Ms. 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 On arrival, the patient was very somnolent, opened her eyes to voice, and was able to answer some questions. The patient?is well known to this facility, last admitted on 03/29/2024 for acute and chronic respiratory failure with hypercapnia. She does have a MOLST form completed on 12/23/2023. She is a full code.?? On arrival to the emergency room, the patient's blood pressure was 128/58, heart rate 77,?respiratory rate 25, O2 Sat 90% on 3L oxymask. lab data significant for potassium 5.8, CO2 33, BUN 28, glucose 351, BNP 190. Lactic acid was 1.2.? VBG 7.15/100/51/35.? Imaging: CXR showed mild pulmonary edema. Chest CT: Possible pneumonia right upper and bilateral lower lobes. ED course: The patient was placed on BiPAP. She received a total of 2 L NS, Levaquin 500 mg, Solu-Medrol 125 mg, Calcium gluconate 2 g, Regular insulin 10 units, lorazepam 2 mg and albuterol.? Hospital course # Acute on chronic hypoxemic respiratory failure Secondary to COPD exacerbation and Hx of SMILEY requiring ICU admission for rescue Bipap. The patient symptoms improved signficantly with BiPAP and treatment with Steroids and nebulizers as she was weaned down to 3L O2 as Chest CT suggestive of bilateral lung consolidation, has significant motion artifact started on Meropenem. Changed Solu-Medrol to p.o. prednisone 40 mg daily and will be discharged on Tapering dose of Prednisone, increase frequency of Duonebs to QID and as needed Albuterol. Doxycycline for 5 more days. # Abnormal Urinanalysis. concerning for possible UTI. covered with antibiotics. Cultures came back negative. # Insulin-dependent diabetes mellitus: Restart home dose Lantus and oral diabetes medications # Hx SMILEY/OHS, continue AVAPs bedtime and with naps Discharge plan Continue tapering dose PRednisone as prescribed Nystatin for fungal rash Use Duonebs 4 times daily and Albuterol nebulizer as needed Wean O2 down as tolerated Increase physical activity as tolerated Time Attestation Discharge Coordination Time (in mins): 39 Quality: Safe Use of Opioids Does Pt have an Active Cancer Diagnosis on the Problem List?: No Quality: Stroke Does the patient have a stroke diagnosis?: No Physical Exam Vital Signs: Vital Signs: Last Vital Signs Temp 97.2 F 05/23/24 11:03 Pulse 72 05/23/24 11:14 Resp 18 05/23/24 11:14 BP 175/77 H 05/23/24 11:03 Pulse Ox 94 05/23/24 11:03 O2 Del Method Room Air 05/23/24 11:03 O2 Flow Rate 3 05/22/24 19:29 FiO2 24 05/23/24 04:00 Oxygen Flow Rate 3 05/20/24 21:30 BMI result Body Mass Index 41.3 Const: Other: Constitutional : Awake, interactive, morbidly obese, not on in distress Neck : Normal inspection, Supple Cardiovascular : RRR, no JVP, no lower extremity edema Respiratory : good bilateral air entry, no crackles, wheezes or rhonchi Gastrointestinal: soft, lax, Normal bowel sounds, Non tender Skin : Warm, Dry Neurological : Alert & oriented x3, No focal deficit DS: Data Data Completed and Pending Completed studies during hospitalization [Text1]: Procedures Assistance with Respiratory Ventilation, Less than 24 Consecutive Hours, Continuous Positive Airway Pressure (03/25/24) Insertion of Endotracheal Airway into Trachea, Via Natural or Artificial Opening (11/18/21) Insertion of Infusion Device into Superior Vena Cava, Percutaneous Approach (11/18/21) Introduction of Vasopressor into Peripheral Vein, Percutaneous Approach (11/18/21) Respiratory Ventilation, 24-96 Consecutive Hours (11/18/21) Ultrasonography of Superior Vena Cava, Guidance (11/18/21) Labs on day of discharge: Laboratory Results - last 24 hr 05/22/24 05/22/24 05/22/24 11:44 16:54 20:48 POC Glucose 208 H 224 H 250 H 05/23/24 08:45 POC Glucose 289 H Preliminary micro results at discharge 05/20/24 21:48 Blood Culture - Preliminary Blood - Venous No growth after 48 hours. 05/20/24 21:30 Blood Culture - Preliminary Blood - Venous No growth after 48 hours. Imaging Abdominal x-ray: Radiologist's impression: ITS Impressions Chest X-Ray 05/20/24 21:26 IMPRESSION: Mild cardiomegaly. Mild pulmonary edema. No consolidation. Electronically signed by: Good Ruano DO 05/20/2024 10:40 PM EDT RP Chest CT 05/21/24 00:00 IMPRESSION: 1. Significantly limited detailed evaluation of the lungs due to respiratory motion artifact. Multifocal regions of opacity are present in the right upper and bilateral lower lobes. At least a component of consolidation is suspected at these sites, though there may be some superimposed atelectasis in the lower lobes. Follow-up imaging in approximately 3 months would be helpful to assess for resolution. 2. Cardiomegaly. 3. Dilated pulmonary arteries, which may reflect pulmonary hypertension. 4. Suspected left renal cyst, not fully included on this examination. Correlation with nonemergent renal ultrasound is recommended. Electronically signed by: Sohail Peasron MD 05/21/2024 01:08 AM EDT RP Discharge Plan Discharge Anticipated Discharge Date/Time: 05/23/24 11:04 Patient Disposition: Xfer SNF Discharge Diagnosis: COPD exacerbation UTI Referrals: Tita Bal MD [Primary Care Provider] - 1 Week Discharge Medications: New prednisone 10 mg Tablet See Taper PO DAILY Qty: 45 0RF Taper: Prednisone 50 mg daily for 3 Days and 0 Hour 40 mg daily for 3 Days and 0 Hour 30 mg daily for 3 Days and 0 Hour 20 mg daily for 3 Days and 0 Hour 10 mg daily for 3 Days and 0 Hour nystatin 100,000 unit/gram Powder 1 appl topical TID Qty: 30 0RF Protocol: Apply to: Apply to: abd folds albuterol sulfate 2.5 mg /3 mL (0.083 %) Solution For Nebulization 2.5 mg inhalation Q4H PRN (Reason: Shortness Of Breath/Wheezing) Qty: 90 0RF doxycycline monohydrate 100 mg capsule 100 mg PO BID Qty: 10 0RF Continued furosemide 40 mg Tablet 40 mg PO DAILY Qty: 30 0RF Protocol: Hold for SBP< HOLD for SBP < : 90 potassium chloride 10 mEq Tablet Extended Release 10 meq PO DAILY Culturelle 10 billion cell Capsule 1 cap PO BID bupropion HCl 150 mg tablet extended release 24 hr 150 mg PO DAILY Rx Instructions: take with 300mg; tdd 450mg Fleet Enema 19-7 gram/118 mL Enema [address] DAILY PRN (Reason: Constipation) Rx Instructions: (STEP 3) IF NO BOWEL MOVEMENT 8 HOURS AFTER BISACODYL atorvastatin 80 mg Tablet 80 mg PO BEDTIME sennosides [senna] 8.6 mg Tablet 17.2 mg PO BEDTIME tizanidine 4 mg Tablet 4 mg PO BEDTIME PRN (Reason: Muscle Spasm) sertraline 100 mg Tablet 200 mg PO DAILY melatonin 3 mg Tablet 3 mg PO BEDTIME ferrous sulfate 325 mg (65 mg iron) Tablet 325 mg PO DAILY insulin lispro 100 unit/mL Insulin Pen See Protocol SUBCUT QIDACHS Protocol: Insulin Correction Scale Less than or equal to 110 ---- Give (units): 0 111 to 150 Give (units): 0 151 to 200 Give (units): 0 201 to 250 Give (units): 4 251 to 300 Give (units): 6 301 to 350 Give (units): 8 Greater than 350 Give (units): 10 Call MD if Blood Glucose > : 350 Rx Instructions: SLIDING SCALE IF BLOOD GLUCOSE GREATER THAN 400, GIVE 12 UNITS AND NOTIFY MD amlodipine 5 mg Tablet 5 mg PO DAILY 30 Days Qty: 30 0RF Protocol: Hold for SBP< HOLD for SBP < : 90 aspirin 81 mg Tablet,Chewable 81 mg PO DAILY acetazolamide 250 mg Tablet 500 mg PO BID Qty: 60 0RF losartan 25 mg tablet 25 mg PO DAILY cholecalciferol (vitamin D3) 25 mcg (1,000 unit) Tablet 25 mcg PO DAILY olopatadine 0.2 % Drops 1 drp OPHTHALMIC (EYE) QSHIFT Rx Instructions: both eyes megestrol 400 mg/10 mL (40 mg/mL) suspension 400 mg PO TID insulin glargine [Lantus U-100 Insulin] 100 unit/mL solution 25 unit subcut DAILY insulin glargine [Lantus U-100 Insulin] 100 unit/mL Solution 30 unit subcut BEDTIME Qty: 10 0RF acetaminophen 650 mg Tablet Extended Release 650 mg PO Q4H PRN (Reason: General Discomfort) metformin 500 mg tablet 500 mg PO BID Ozempic 0.25 mg or 0.5 mg (2 mg/3 mL) pen injector 0.5 mg subcut WE magnesium hydroxide [Milk of Magnesia] 400 mg/5 mL Suspension 30 ml PO DAILY PRN (Reason: Constipation) Rx Instructions: (step 1) If no bowel movement for 3 days. aripiprazole 2 mg tablet 2 mg PO DAILY spironolactone 25 mg Tablet 25 mg PO DAILY Qty: 30 0RF Protocol: Hold for SBP< HOLD for SBP < : 90 magnesium citrate Solution 300 ml PO DAILY PRN (Reason: Constipation) Patient Comments: If no bowel movement in 12 hours after polyethylene glycol 3350 [Miralax] 17 gram/dose Powder 17 g PO DAILY PRN (Reason: Constipation) Jardiance 25 mg tablet 25 mg PO DAILY fluticasone propion-salmeterol 113-14 mcg/actuation aerosol powdr breath activated 1 inh inhalation DAILY Rx Instructions: Rinse mouth with water after use and spit out. modafinil [Provigil] 100 mg Tablet 100 mg PO DAILY Qty: 30 0RF bisacodyl 10 mg suppository [address] DAILY PRN (Reason: Constipation, No results from MOM ) Rx Instructions: GIVE IF NO RESULT FROM MILK OF MAGNESIA cyanocobalamin (vitamin B-12) 1,000 mcg capsule 1,000 mcg PO DAILY bupropion HCl 300 mg tablet extended release 24 hr 300 mg PO DAILY Rx Instructions: take with 150mg dose; tdd 450mg Changed ipratropium-albuterol 0.5 mg-3 mg(2.5 mg base)/3 mL Solution For Nebulization 3 ml INHALATION QID Qty: 90 0RF Discharge Orders: Discharge Order (Routine); Ordered 05/23/24 Ordered By: Tom Batista Diet: Advance to usual diet Activity on Discharge: As tolerated Stand Alone Forms: Patient Portal Discharge page Print Language: Ukrainian Care Plan Goals: Continue tapering dose PRednisone as prescribed Nystatin for fungal rash Use Duonebs 4 times daily and Albuterol nebulizer as needed Wean O2 down as tolerated Increase physical activity as tolerated Health Concerns: Read below Plan of Treatment: Read below Assessment: Read below
[2024-05-23 11:40] LABS: Glucose, Whole Blood 302 mg/dL (60-115)
--- NOTE | 2024-05-23 11:58 | MHC.CM.PN ---
Addendum entered by Teagan Priest 05/23/24 13:05: [facility] BOOKED FOR 1430 HOURS WITH JON MARTINEZ Original Note: PT CLEARED TO DC BACK TO [facility] TODAY CM ATTEMPTED TO CONTACT PTS HCP/, [facility] [phone], HOWEVER THERE WAS NO ANSWER AND THE VM BOX IS FULL UPDATES SENT TO SNF VIA [facility], AWAITING RESPONSE
[2024-05-23] MEDS: Nystatin Powder 15 GM BOTTLE 1 APPL TOPICAL (13:04)
== END 2024-05-23 15:15 | disposition skilled nursing facility (03) | DRG 193 ==
LOC: HO.ED 05-21 01:58 → HO.EDOVER 05-21 02:30 → HO.ICU 05-21 03:10 → HO.IMC 05-22 15:48
PROVIDERS: Internal Medicine Critical Care Medicine; Admitting Provider Nurse Practitioner Family; Emergency Provider Emergency Medicine; PCP Internal Medicine; Visit Provider Student in an Organized Health Care Education/Training Program
DX: J18.9 Pneumonia, unspecified organism (principal); G93.41 Metabolic encephalopathy; I50.33 Acute on chronic diastolic (congestive) heart failure; J96.21 Acute and chronic respiratory failure with hypoxia; J96.22 Acute and chronic respiratory failure with hypercapnia; J44.0 Chronic obstructive pulmonary disease with (acute) lower respiratory infection; E66.2 Morbid (severe) obesity with alveolar hypoventilation; Z68.41 Body mass index [BMI] 40.0-44.9, adult; I44.2 Atrioventricular block, complete; J44.1 Chronic obstructive pulmonary disease with (acute) exacerbation; N39.0 Urinary tract infection, site not specified; I11.0 Hypertensive heart disease with heart failure; E78.5 Hyperlipidemia, unspecified; E11.65 Type 2 diabetes mellitus with hyperglycemia; Z95.0 Presence of cardiac pacemaker; E87.5 Hyperkalemia; L89.626 Pressure-induced deep tissue damage of left heel; L89.326 Pressure-induced deep tissue damage of left buttock; L89.316 Pressure-induced deep tissue damage of right buttock; B36.9 Superficial mycosis, unspecified; Z20.822 Contact with and (suspected) exposure to COVID-19; Z99.81 Dependence on supplemental oxygen; Z87.891 Personal history of nicotine dependence; Z79.4 Long term (current) use of insulin; Z79.82 Long term (current) use of aspirin; Z79.84 Long term (current) use of oral hypoglycemic drugs; Z79.899 Other long term (current) drug therapy
CPT/HCPCS: 36415; 36600; 71045; 71250; 80048; 80076; 81001; 82040; 82803; 82947; 83605; 83735; 83880; 84100; 84443; 84484; 85025; 85610; 87040; 87086; 87635; 93005; 94640; 94660; 99285; C1758; J0613; J1644; J1940; J1956; J2060; J2185; J2919

== ENCOUNTER → 2024-05-21 02:10 | Outpatient (BNV) | payer MEDICARE, MEDICAID, OTHER, SELFPAY | PROVIDERS: Admitting Provider Nurse Practitioner Family; Emergency Provider Emergency Medicine; PCP Internal Medicine; Visit Provider Student in an Organized Health Care Education/Training Program | DX: J96.01 Acute respiratory failure with hypoxia (principal); J96.12 Chronic respiratory failure with hypercapnia; E11.65 Type 2 diabetes mellitus with hyperglycemia; J18.9 Pneumonia, unspecified organism | CPT/HCPCS: 99239 ==

== ENCOUNTER → 2024-05-21 02:10 | Outpatient (BNV) | payer MEDICARE, MEDICAID, OTHER, SELFPAY | PROVIDERS: Admitting Provider Nurse Practitioner Family; Emergency Provider Emergency Medicine; PCP Internal Medicine; Visit Provider Nurse Practitioner Family | DX: J96.01 Acute respiratory failure with hypoxia (principal); J96.12 Chronic respiratory failure with hypercapnia; E11.65 Type 2 diabetes mellitus with hyperglycemia; E87.5 Hyperkalemia | CPT/HCPCS: 99223; 99233 ==

== ENCOUNTER 2024-06-16 21:55 | Inpatient (IN) | payer MEDICARE, MEDICAID, OTHER, SELFPAY ==
--- NOTE | ~2024-06-16 | XR_ITS ---
EXAMINATION: XR CHEST CLINICAL INFORMATION: Dyspnea COMPARISON: 05/20/2024 TECHNIQUE: Frontal view of the chest was obtained. FINDINGS: Again seen are hypoinflated lungs and mild cardiomegaly. Scattered patchy densities are seen in the lungs which are improved when compared to the prior study especially in the right lung. There is prominence of the central pulmonary vasculature with mild congestion. No effusions. There is a left chest wall bipolar pacemaker present with leads in good position. Left shoulder prosthesis again seen. XR/XR chest 1V IMPRESSION: 1. Cardiomegaly with mild pulmonary vascular congestion. 2. Scattered patchy densities in the lungs are improved when compared to the prior study. Electronically signed by: Josesito Lund MD 06/16/2024 11:38 PM EDT
--- NOTE | 2024-06-16 22:05 | ECG_ITS ---
Test Reason : SOB Blood Pressure : / mmHG Vent. Rate : 082 BPM Atrial Rate : 082 BPM P-R Int : 174 ms QRS Dur : 180 ms QT Int : 436 ms P-R-T Axes : 035 269 071 degrees QTc Int : 509 ms Atrial-sensed ventricular-paced rhythm Abnormal ECG When compared with ECG of 20-MAY-2024 21:07, Vent. rate has increased BY 13 BPM Referred By: Magdalena Gray Electronically Signed By:IJEOMA PEREIRA
[2024-06-16 22:11] VITALS: PULSE 85; RESP 35; O2SAT 94
[2024-06-16] MEDS: methylPREDNISolone Sod Succ 125 MG/2 ML VIAL 60 MG IVPUSH (22:14)
[2024-06-16 22:20] VITALS: PULSE 84; RESP 33; O2SAT 93
[2024-06-16] MEDS: Albuterol Sulfate 7.5 MG, Albuterol Sulfate (0.083%) 2.5 MG 10 MG INHALE (22:22)
[2024-06-16 22:25] LABS: MANUAL DIFF FLAG NO
[2024-06-16 22:34] LABS: Basophils Percent Auto 0.4 % (0-2); Eosinophils Absolute Auto 0.2 X10*3/uL (0.0-0.4); Eosinophils Percent Auto 1.4 % (0-4); Hematocrit 45.4 % (37.0-47.0); Hemoglobin 13.4 g/dl (12.0-16.0); Imm Gran Abs Auto 0.06 X10*3/uL (0.00-0.03); Imm Gran Pct Auto 0.5 % (0.0-0.4); Lymphocytes Absolute Auto 0.9 X10*3/uL (1.2-4.9); Lymphocytes Percent Auto 7.9 % (20-40); Mean Corpuscular HGB Conc 29.5 g/dl (31.0-35.0); Mean Corpuscular Hemoglobin 28.5 pg (27.0-33.0); Mean Corpuscular Volume 96.6 fL (80.0-98.0); Mean Platelet Volume 10.2 fL (9.4-12.3); Monocytes Absolute Auto 0.6 X10*3/uL (0.1-1.2); Monocytes Percent Auto 5.7 % (2-11); Neutrophils Absolute Auto 9.2 x10*3/uL (2.0-8.3); Neutrophils Percent Auto 84.1 % (45-73); Platelet Count 211 X10*3/uL (160-400); Red Cell Distribution Width 15.4 % (11.0-16.0)
[2024-06-16 22:35] VITALS: BP 150/70; BP 156/61; PULSE 88; RESP 28; TEMP 35.1; O2SAT 85; O2SAT 96; BMI 53.4
[2024-06-16 22:38] LABS: VBG Base Excess -1.4 mmol/L; VBG HCO3 30 mmol/L (22-26); VBG pCO2 88 mmHg; VBG pH 7.14 (7.32-7.43); VBG pO2 156 mmHg
[2024-06-16 22:43] VITALS: BP 214/130; PULSE 88; RESP 15; O2SAT 94
[2024-06-16 22:43] LABS: Prothrombin Time 11.2 SEC (10.9-12.4)
[2024-06-16 22:46] LABS: Lactic Acid 0.7 mmol/L (0.5-2.0)
[2024-06-16 22:48] LABS: Venous Blood Gas Refer to POC result
--- NOTE | 2024-06-16 22:49 | ED.SOB ---
HPI - SOB/Dyspnea General Chief Complaint: Dyspnea Stated Complaint: low o2 at snf, was 85 now 90% on nrb Time Seen by Provider: 06/16/24 21:59 Source: patient, family, EMS and old records reviewed Mode of arrival: EMS Limitations: altered mental status History of Present Illness ED Provider: ENZO MCCULLOUGH Narrative: 63 yo female with PMH of COPD on 3L NC, chronic respiratory failure, obesity hypoventilation syndrome, IDDM, CHF preserved EF, heart block with PPM, morbidy obesity, mood disorder, ESBL + [facility]. Just admitted to our ICU in May for respiratory failure, requiring bipap support. Reportedly she told SNF staff she didn't feel well this AM and worsened throughout the day EMS arrived to find her 85% on 2L NC and unresponsive. She was placed on NRB. On arrival to the ED she was on NRB and cyanotic with sat of 72% I placed her on max NRB STAT bipap and patient started to wake up and answer to her name and yell what. arrived just after EMS. Patient not able to answer questions. MD elicited complaint: shortness of breath Pertinent past history: COPD, congestive heart failure, diabetes and pneumonia Onset (ago): day(s) (1) Context: recent illness Timing: progressively worsening Severity: severe Exacerbating factors: lying flat Relieving factors: oxygen, bronchodilators and upright position Known history of: COPD, congestive heart failure and diabetes Associated symptoms: denies other symptoms Treatment prior to arrival: oxygen Related Data Home Medications ?Medication ?Instructions ?Recorded ?Confirmed atorvastatin 80 mg tablet 80 mg PO BEDTIME 11/18/21 05/21/24 ferrous sulfate 325 mg (65 mg 325 mg PO DAILY 11/18/21 05/21/24 iron) tablet insulin lispro 100 unit/mL See Protocol subcut QIDACHS 11/18/21 05/21/24 subcutaneous pen melatonin 3 mg tablet 3 mg PO BEDTIME 11/18/21 05/21/24 sennosides 8.6 mg tablet (senna) 17.2 mg PO BEDTIME 11/18/21 05/21/24 sertraline 100 mg tablet 200 mg PO DAILY 11/18/21 05/21/24 tizanidine 4 mg tablet 4 mg PO BEDTIME PRN Muscle Spasm 11/18/21 05/21/24 aspirin 81 mg chewable tablet 81 mg PO DAILY 01/05/22 05/21/24 bupropion HCl 300 mg 24 hr tablet, 300 mg PO DAILY 04/09/22 05/21/24 extended release Lactobacillus rhamnosus GG 10 1 cap PO BID 10/09/22 05/21/24 billion cell capsule (Culturelle) bupropion HCl 150 mg 24 hr tablet, 150 mg PO DAILY 10/09/22 05/21/24 extended release potassium chloride 10 mEq 10 meq PO DAILY 10/09/22 05/21/24 tablet,extended release bisacodyl 10 mg rectal suppository 10 mg IL DAILY PRN Constipation, 10/21/22 05/21/24 No results from MOM sodium phosphates 19 gram-7 118 ml IL DAILY PRN Constipation 11/09/22 05/21/24 gram/118 mL enema (Fleet Enema) metformin 500 mg tablet 500 mg PO BID 12/27/22 05/21/24 semaglutide 0.25 mg or 0.5 mg (2 0.5 mg subcut WE 12/27/22 05/21/24 mg/3 mL) subcutaneous pen injector (Ozempic) cholecalciferol (vitamin D3) 25 25 mcg PO DAILY 04/04/23 05/21/24 mcg (1,000 unit) tablet insulin glargine 100 unit/mL 25 unit subcut DAILY 04/04/23 05/21/24 subcutaneous solution (Lantus U-100 Insulin) losartan 25 mg tablet 25 mg PO DAILY 04/04/23 05/21/24 megestrol 400 mg/10 mL (40 mg/mL) 400 mg PO TID 04/04/23 05/21/24 oral suspension olopatadine 0.2 % eye drops 1 drp ophthalmic (eye) QSHIFT 04/04/23 05/21/24 cyanocobalamin (vitamin B-12) 1,000 mcg PO DAILY 04/21/23 05/21/24 1,000 mcg capsule magnesium hydroxide 400 mg/5 mL 30 ml PO DAILY PRN Constipation 10/02/23 05/21/24 oral suspension (Milk of Magnesia) aripiprazole 2 mg tablet 2 mg PO DAILY 10/28/23 05/21/24 empagliflozin 25 mg tablet 25 mg PO DAILY 02/16/24 05/21/24 (Jardiance) fluticasone 113 mcg-salmeterol 14 1 inh inhalation DAILY 02/16/24 05/21/24 mcg/actuation breath activated powdr magnesium citrate 300 ml PO DAILY PRN Constipation 02/16/24 05/21/24 polyethylene glycol 3350 17 17 g PO DAILY PRN Constipation 02/16/24 05/21/24 gram/dose oral powder (Miralax) acetaminophen 650 mg 650 mg PO Q4H PRN General 05/21/24 05/21/24 tablet,extended release Discomfort Previous Rx's ?Medication ?Instructions ?Recorded amlodipine 5 mg tablet 5 mg PO DAILY 30 days #30 tabs 11/26/21 furosemide 40 mg tablet 40 mg PO DAILY #30 tabs 04/05/22 acetazolamide 250 mg tablet 500 mg (2 x 250 mg) PO BID #60 tabs 01/06/23 spironolactone 25 mg tablet 25 mg PO DAILY #30 tabs 11/01/23 modafinil 100 mg tablet (Provigil) 100 mg PO DAILY #30 tabs 02/18/24 insulin glargine 100 unit/mL 30 unit (0.3 mL) subcut BEDTIME 03/29/24 subcutaneous solution (Lantus #10 mL U-100 Insulin) albuterol sulfate 2.5 mg/3 mL 2.5 mg (3 mL) inhalation Q4H PRN 05/23/24 (0.083 %) solution for nebulization Shortness Of Breath/Wheezing #90 mL doxycycline monohydrate 100 mg 100 mg PO BID #10 caps 05/23/24 capsule ipratropium 0.5 mg-albuterol 3 mg 3 ml inhalation QID wheezing #90 mL 05/23/24 (2.5 mg base)/3 mL nebulization soln nystatin 100,000 unit/gram topical 1 appl topical TID #30 grams 05/23/24 powder prednisone 10 mg tablet See Taper PO DAILY #45 tabs 05/23/24 Allergies Allergy/AdvReac Type Severity Reaction Status Date / Time latex Allergy Unknown Unknown Verified 06/16/24 22:37 adhesive tape AdvReac Unknown Unknown Verified 06/16/24 22:37 bupropion [From Wellbutrin] AdvReac Unknown Unknown Verified 06/16/24 22:37 ibuprofen AdvReac Unknown Unknown Verified 06/16/24 22:37 Review of Systems Review of Systems: ROS unable to be obtained due to altered mental status [facility] Past Medical History Attestation statement: The following information was validated with the patient. Source: old records reviewed Medical History Dermatitis, unspecified Urinary tract infection due to ESBL Klebsiella Pressure injury of deep tissue of right heel Acute and chronic respiratory failure with hypercapnia Hypoventilation associated with obesity COPD (chronic obstructive pulmonary disease) Obesity hypoventilation syndrome Diabetes mellitus Acute and chronic respiratory failure with hypercapnia Morbid obesity Pressure injury of deep tissue of buttock Sepsis Morbid obesity with BMI of 50.0-59.9, adult Acute and chronic respiratory failure Pressure ulcer, stage II, skin breakdown Hypertrophic nonobstructive cardiomyopathy Presence of permanent cardiac pacemaker Acute on chronic respiratory failure with hypoxia and hypercapnia Metabolic encephalopathy Urinary tract infection due to ESBL Klebsiella Respiratory failure Presence of permanent cardiac pacemaker Sick sinus syndrome Morbid obesity Heart block AV third degree PAD (peripheral artery disease) Diabetic ulcer of foot associated with diabetes mellitus due to underlying condition, with fat layer exposed Atelectasis of both lungs Respiratory failure with hypoxia and hypercapnia Hypoventilation associated with obesity syndrome SMILEY (obstructive sleep apnea) Morbid obesity Pulmonary embolism CHF (congestive heart failure) Clostridium difficile infection Hypertension Diabetes mellitus, type 2 Depression Arthritis Anemia Surgical History History of total knee replacement Social History Social History Household Members: Unknown / Unable to assess Housing: Long Term Housing Other:: Came from STR Are you a primary child caregiver private home to a significant other at home: No Do you presently have visiting nurse or other home services: No Unable to assess alcohol history related to: Unknown Alcohol intake: former Patient Tobacco Use Status: Former Tobacco user Tobacco use type: Cigarette Cigarette Packs Per Day: 20 Cigarettes Per Day: 400.0 Years Smoked: 20 Smoked in Last 30 Days: No e-Cigarette/Vaping Use: Never Used Second Hand Smoke Exposure: No Use of substances other than those prescribed or required for medical reasons: No Substance Use Type: Unknown Advance Directives: Yes Advance Directives on File: Yes Advance Directives Date on File: 01/07/23 Do you have a plan to hurt others: No Plan Patient : No service: No Current occupational status: disabled Physical Exam Vital Signs: Vital Signs: Last Vital Signs Temp 98.8 F 06/17/24 00:52 Pulse 83 06/17/24 00:52 Resp 14 06/17/24 00:52 BP 139/77 06/17/24 00:52 Pulse Ox 98 06/17/24 00:52 O2 Del Method BiPAP 06/17/24 00:52 FiO2 60 06/17/24 00:52 BMI result Body Mass Index 53.4 Appearance: initially somnolent but improved after bipap. Oriented to name. Moderate acute distress. Eyes: Pupils equal, round and reactive to light. ENT: Pharynx dusky and initially blue on arrival pinked up and normal after bipap Neck: Neck supple. short neck CVS: Normal heart rate and rhythm. Pulses normal. Respiratory: Moderate respiratory distress - cyanotic and poor effort. Breath sounds coarse and diminished throughout Abdomen: Soft and non-tender. Obese Skin: Skin warm and dry. pale skin color. Extremities: 1+ pitting lower ext edema Neuro: Oriented to name yells what. withdraws to painful stimuli Medications Administered Discontinued Medications Generic Name Dose Route Start Last Admin Trade Name Mike PRN Reason Stop Dose Admin Albuterol Sulfate 7.5 mg/ 10 mg 06/16/24 22:14 06/16/24 22:22 Albuterol Sulfate 2.5 mg INHALE 06/16/24 22:15 10 mg ONCE ONE Administration Meropenem 1 gm/ Sodium 100 mls @ 200 mls/hr 06/16/24 22:05 06/16/24 23:00 Chloride IV 06/16/24 22:34 Infused ONCE ONE Infusion Methylprednisolone Sodium Succinate 60 mg 06/16/24 22:05 06/16/24 22:14 Methylprednisolone Sod Succ 125 Mg/2 Ml Vial IVPUSH 06/16/24 22:06 60 mg ONCE ONE Administration Medical Decision Making Medical Decision Making MDM Narrative: 63 yo female with PMH of COPD on 3L NC, chronic respiratory failure, obesity hypoventilation syndrome, IDDM, CHF preserved EF, heart block with PPM, morbidy obesity, mood disorder, ESBL + UTI here in resp distress with hypoxia on arrival - at this time will trial bipap she did respond to NRB but effort is poor she has hx of COPD and retention suspect she has CO2 retention. Will start on bipap, steroids, obtain VBG, lactic acid and cultures given ESBL hx will start on meropenem. Planned admit Differential Diagnosis Differential Diagnoses: The differential diagnosis associated with the presentation includes COPD, pneumonia, CHF, viral syndrome Admission/Observation Consideration of admission/observation: Escalation of care including admission/observation considered will admit to ICU VBG improved but she is not going to wean tonight with her status and morbid obesity Consult Healthcare Provider Management of the patient was discussed with: [employer] Artist (Dr. Armenta aware will admit) Lab Data MDM Lab Attestation statement: I reviewed the patient's lab results. 06/16/24 22:20 06/16/24 22:20 Labs: Lab Results 06/16/24 06/16/24 06/16/24 Range/Units 22:20 22:24 22:30 WBC 11.0 H (4.8-10.8) X10*3/uL RBC 4.70 (4.20-5.50) X10*6/uL Hgb 13.4 (12.0-16.0) g/dl Hct 45.4 (37.0-47.0) % MCV 96.6 (80.0-98.0) fL MCH 28.5 (27.0-33.0) pg MCHC 29.5 L (31.0-35.0) g/dl RDW 15.4 (11.0-16.0) % Plt Count 211 (160-400) X10*3/uL MPV 10.2 (9.4-12.3) fL Immature Gran % (Auto) 0.5 H (0.0-0.4) % Neut % (Auto) 84.1 H (45-73) % Lymph % (Auto) 7.9 L (20-40) % [place] % (Auto) 5.7 (2-11) % Eos % (Auto) 1.4 (0-4) % Baso % (Auto) 0.4 (0-2) % Lymph # (Auto) 0.9 L (1.2-4.9) X10*3/uL [place] # (Auto) 0.6 (0.1-1.2) X10*3/uL Eos # (Auto) 0.2 (0.0-0.4) X10*3/uL Baso # (Auto) 0.0 (0.0-0.2) X10*3/uL Abs Immat Gran (auto) 0.06 H (0.00-0.03) X10*3/uL Absolute Neuts (auto) 9.2 H (2.0-8.3) x10*3/uL Absolute Nucleated RBC 0.000 (0.0-0.012) X10*3/uL Nucleated RBC % (auto) 0.0 (0.0-0.2) /100WBC PT 11.2 (10.9-12.4) SEC INR 1.0 (0.9-1.1) VBG pH 7.14 L* (7.32-7.43) VBG pCO2 88 mmHg VBG pO2 156 mmHg VBG HCO3 30 H (22-26) mmol/L VBG O2 Saturation 99.0 % VBG Base Excess -1.4 mmol/L Sodium 144 (135-145) mmol/L Potassium 4.5 (3.3-5.1) mmol/L Chloride 108 (96-108) mmol/L Carbon Dioxide 29 (22-29) mmol/L Anion Gap 12 (12-20) BUN 22 H (9-16) mg/dL Creatinine 0.82 (0.5-1.4) mg/dL Estim Creat Clear Calc 101.2 Estimated GFR > 60 Random Glucose 213 H (60-115) mg/dL Lactic Acid 0.7 (0.5-2.0) mmol/L Calcium 9.6 (8.4-10.2) mg/dL Magnesium 2.2 (1.6-2.6) mg/dL Total Bilirubin 0.2 (0.0-1.0) mg/dL Direct Bilirubin < 0.2 (0.0-0.5) mg/dL AST 11 (5-31) U/L ALT 19 (0-31) U/L Alkaline Phosphatase 90 (39-117) U/L Troponin I High Sens 24.7 H D (<3.5-17.0) ng/L C-Reactive Protein 15.59 H (< or = 0.50) mg/dL B-Natriuretic Peptide 123 H (<100) pg/mL Total Protein 7.3 (6.5-8.0) g/dL Albumin 3.7 (3.5-5.0) g/dL Procalcitonin 0.23 ng/mL Urine Color Urine Appearance Urine pH (5.0-9.0) Ur Specific [place] (1.005-1.025) Urine Protein (Neg-Trace) mg/dL Urine Glucose (UA) (Negative) mg/dL Urine Ketones (Negative) mg/dL Urine Blood (Negative) Urine Nitrite (Negative) Ur Leukocyte Esterase (Negative) Urine RBC (0-2) /HPF Urine WBC (0-5) /HPF Ur Squamous Epith Cells (0-2) /HPF Urine Bacteria (None Seen) Hyaline Casts (0-2) /LPF Influenza Type A (PCR) NEGATIVE (Negative) Influenza Type B (PCR) NEGATIVE (Negative) RSV RNA Qual (PCR) NEGATIVE (Negative) SARS-CoV-2 RNA (RT-PCR) NEGATIVE (Negative) 06/16/24 06/17/24 Range/Units 23:10 00:51 WBC (4.8-10.8) X10*3/uL RBC (4.20-5.50) X10*6/uL Hgb (12.0-16.0) g/dl Hct (37.0-47.0) % MCV (80.0-98.0) fL MCH (27.0-33.0) pg MCHC (31.0-35.0) g/dl RDW (11.0-16.0) % Plt Count (160-400) X10*3/uL MPV (9.4-12.3) fL Immature Gran % (Auto) (0.0-0.4) % Neut % (Auto) (45-73) % Lymph % (Auto) (20-40) % [place] % (Auto) (2-11) % Eos % (Auto) (0-4) % Baso % (Auto) (0-2) % Lymph # (Auto) (1.2-4.9) X10*3/uL [place] # (Auto) (0.1-1.2) X10*3/uL Eos # (Auto) (0.0-0.4) X10*3/uL Baso # (Auto) (0.0-0.2) X10*3/uL Abs Immat Gran (auto) (0.00-0.03) X10*3/uL Absolute Neuts (auto) (2.0-8.3) x10*3/uL Absolute Nucleated RBC (0.0-0.012) X10*3/uL Nucleated RBC % (auto) (0.0-0.2) /100WBC PT (10.9-12.4) SEC INR (0.9-1.1) VBG pH 7.23 L (7.32-7.43) VBG pCO2 60 mmHg VBG pO2 53 mmHg VBG HCO3 25 (22-26) mmol/L VBG O2 Saturation 85.0 % VBG Base Excess -3.1 mmol/L Sodium (135-145) mmol/L Potassium (3.3-5.1) mmol/L Chloride (96-108) mmol/L Carbon Dioxide (22-29) mmol/L Anion Gap (12-20) BUN (9-16) mg/dL Creatinine (0.5-1.4) mg/dL Estim Creat Clear Calc Estimated GFR Random Glucose (60-115) mg/dL Lactic Acid (0.5-2.0) mmol/L Calcium (8.4-10.2) mg/dL Magnesium (1.6-2.6) mg/dL Total Bilirubin (0.0-1.0) mg/dL Direct Bilirubin (0.0-0.5) mg/dL AST (5-31) U/L ALT (0-31) U/L Alkaline Phosphatase (39-117) U/L Troponin I High Sens (<3.5-17.0) ng/L C-Reactive Protein (< or = 0.50) mg/dL B-Natriuretic Peptide (<100) pg/mL Total Protein (6.5-8.0) g/dL Albumin (3.5-5.0) g/dL Procalcitonin ng/mL Urine Color Yellow Urine Appearance Clear Urine pH 5.5 (5.0-9.0) Ur Specific [place] >= 1.030 H (1.005-1.025) Urine Protein Trace (Neg-Trace) mg/dL Urine Glucose (UA) >=1000 H (Negative) mg/dL Urine Ketones Negative (Negative) mg/dL Urine Blood Negative (Negative) Urine Nitrite Positive H (Negative) Ur Leukocyte Esterase Trace H (Negative) Urine RBC 0-2 (0-2) /HPF Urine WBC >50 H (0-5) /HPF Ur Squamous Epith Cells 3-5 (0-2) /HPF Urine Bacteria 4+ (None Seen) Hyaline Casts 3-5 (0-2) /LPF Influenza Type A (PCR) (Negative) Influenza Type B (PCR) (Negative) RSV RNA Qual (PCR) (Negative) SARS-CoV-2 RNA (RT-PCR) (Negative) Independent Interpretation I performed an independent interpretation of an: EKG and Plain X-Ray Interpretation: Rate: 82 Rhythm: paced Dawson: left Normal P waves. Normal ARYA. wide QRS complex. ST T wave : inverted t waves aVL, tall t waves V2-V4 qTC: 509 prior studies: findings noted in april The study has been interpreted contemporaneously by me. . Radiology Impression Discussion of test interpretation with radiology: I have reviewed the radiologist's reading. Independent Historian Clinical information obtained from an independent historian. History obtained from or confirmed by: Spouse and EMS External Record Review External record reviewed: Inpatient record Critical Care Time Critical Care Time Critical Care Time: Yes Total Critical Care Time: 60 Attestation: repeat labs, review of records, BIPAP, admit to ICU I attest to this time spent taking care of the patient Discharge Plan Discharge Clinical Impression: Acute UTI Acute and chronic respiratory failure Qualifiers: Respiratory failure complication: hypoxia and hypercapnia Qualified Code(s): J96.21 - Acute and chronic respiratory failure with hypoxia Patient Disposition: Admitted As Inpatient Print Language: Japanese
[2024-06-16 22:58] LABS: Alanine Aminotransferase 19 U/L (0-31); Albumin Level 3.7 g/dL (3.5-5.0); Alkaline Phosphatase 90 U/L (39-117); Anion Gap 12 (12-20); Aspartate Amino Transferase 11 U/L (5-31); Bilirubin Direct < 0.2 mg/dL (0.0-0.5); Bilirubin Total 0.2 mg/dL (0.0-1.0); Blood Urea Nitrogen 22 mg/dL (9-16); C Reactive Protein 15.59 mg/dL (< or = 0.50); Calcium 9.6 mg/dL (8.4-10.2); Carbon Dioxide 29 mmol/L (22-29); Chloride 108 mmol/L (96-108); Creatinine Clr Calc Pharmacy 101.2; Estimated Glomerular Filt Rate > 60; Glucose Random 213 mg/dL (60-115); Magnesium 2.2 mg/dL (1.6-2.6); Potassium 4.5 mmol/L (3.3-5.1); Sodium 144 mmol/L (135-145); Total Protein 7.3 g/dL (6.5-8.0); Troponin-I High Sensitivity 24.7 ng/L (<3.5-17.0)
[2024-06-16 23:12] LABS: Procalcitonin 0.23 ng/mL
[2024-06-16 23:15] VITALS: TEMP 36.3
--- NOTE | 2024-06-16 23:17 | PC.NURSE ---
Temp sensing 16 Fr F?C inserted per DR. Gray's verbal order with immediate output of 90 mL of yellow cloudy urine, urine specimen for UA C/S collected and sent to lab.
[2024-06-16 23:18] VITALS: BP 135/73; PULSE 81; RESP 15; TEMP 36.4; O2SAT 94
[2024-06-16 23:20] LABS: Influenza A PCR NEGATIVE (Negative); Influenza B PCR NEGATIVE (Negative); Resp Syncy Virus RNA Qual PCR NEGATIVE (Negative); SARS COV2 PCR INHOUSE NEGATIVE (Negative)
[2024-06-16 23:23] LABS: Appearance Urine Clear; Color Urine Yellow; Glucose Urine UA >=1000 mg/dL (Negative); Leukocyte Esterase Urine Trace (Negative); Nitrite Urine Positive (Negative); PH 5.5 (5.0-9.0); Specific Gravity - Urine >= 1.030 (1.005-1.025); UMIC TRIGGER UACC YES; Urine Blood Negative (Negative); Urine Ketones Negative (Negative); Urine Protein Trace mg/dL (Neg-Trace)
--- NOTE | 2024-06-16 23:23 | MHC.EDTECH ---
This pct assumed care of Patient at 2300 ,vitals taken and Patient belongings list done Patient sleep Patient family member at bedside .Call chun within Pt reach .
[2024-06-16 23:29] LABS: Bacteria Urine 4+ (None Seen); RBC Urine 0-2 /HPF (0-2); UACC Culture Trigger YES; WBC Urine >50 /HPF (0-5)
[2024-06-16 23:29] LABS: B Type Natriuretic Peptide 123 pg/mL (<100)
[2024-06-17] VITALS (24 sets, daily range): BP systolic 95–152; BP diastolic 58–89; PULSE 73–100; RESP 14–37; TEMP 36.1–37.9; O2SAT 89–98; BMI 47.8; BMI 70.5
[2024-06-17 00:52] LABS: Venous Blood Gas Refer to POC result
[2024-06-17 00:56] LABS: VBG Base Excess -3.1 mmol/L; VBG HCO3 25 mmol/L (22-26); VBG pCO2 60 mmHg; VBG pH 7.23 (7.32-7.43); VBG pO2 53 mmHg
[2024-06-17] MEDS: Furosemide 40 MG/4 ML VIAL IVPUSH ×2 (01:36→08:36)
--- NOTE | 2024-06-17 01:41 | PM.CCHP ---
History of Present Illness Date of Service: 06/17/24 Attending physician on admission: Cheikh Armenta Chief Complaint: Dyspnea The patient is a 63-year-old female with a past medical history of morbid obesity, obesity hypoventilation syndrome with CO2 retention, COPD? ( on home O2 2-3 L ), diabetes mellitus, diastolic dysfunction,? 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, ? mood disorder,? diabetes ulcer, ESBL UTIs recent admission 05/21/24 to 05/23/24 for acute respiratory failure secondary to COPD exacerbation and ESBL UTI.? Tonight, she presented to the emergency department? via EMS from [facility] with complaints of dyspnea.? According to EMS patient was satting 85% on 2 L nasal cannula,? was unresponsive,? she was placed on non-rebreather,? and on arrival to the emergency department she was cyanotic satting 72%,? she was placed on BiPAP and started to wake up shortly after.? Initial vital signs ? temperature 95.2 degrees, tachycardic 28, blood pressure 156/61 ?Laboratory data was significant for? WBC? 11, troponin 24, BNP 123 ?Venous gas:? 7.14/88/156/30. Urine concerning for UTI ?Imaging:? ?Chest x-ray:? concerning for pulmonary congestion ED Course:? she received albuterol 3 mg, Solu-Medrol 60 mg and meropenem 1 g Review of Systems Review of Systems: Yes all other systems are reviewed and are negative PMFSH Past Medical History Medical History (Updated 06/17/24 @ 02:04 by Sandra Tejeda NP) ESBL (extended spectrum beta-lactamase) producing bacteria infection Dermatitis, unspecified Urinary tract infection due to ESBL Klebsiella Pressure injury of deep tissue of right heel Acute and chronic respiratory failure with hypercapnia Hypoventilation associated with obesity COPD (chronic obstructive pulmonary disease) Obesity hypoventilation syndrome Diabetes mellitus Acute and chronic respiratory failure with hypercapnia Morbid obesity Pressure injury of deep tissue of buttock Sepsis Morbid obesity with BMI of 50.0-59.9, adult Acute and chronic respiratory failure Pressure ulcer, stage II, skin breakdown Hypertrophic nonobstructive cardiomyopathy Presence of permanent cardiac pacemaker Acute on chronic respiratory failure with hypoxia and hypercapnia Metabolic encephalopathy Urinary tract infection due to ESBL Klebsiella Respiratory failure Presence of permanent cardiac pacemaker Sick sinus syndrome Morbid obesity Heart block AV third degree PAD (peripheral artery disease) Diabetic ulcer of foot associated with diabetes mellitus due to underlying condition, with fat layer exposed Atelectasis of both lungs Respiratory failure with hypoxia and hypercapnia Hypoventilation associated with obesity syndrome SMILEY (obstructive sleep apnea) Morbid obesity Pulmonary embolism CHF (congestive heart failure) Clostridium difficile infection Hypertension Diabetes mellitus, type 2 Depression Arthritis Anemia Surgical History Surgical History History of total knee replacement Social History Social History Household Members: None Housing: [facility] Housing Other:: Came from [facility] Are you a primary adult daycare coordinator to a significant other at home: No Do you presently have visiting nurse or other home services: No Unable to assess alcohol history related to: Unknown Alcohol intake: former Patient Tobacco Use Status: Former Tobacco user Tobacco use type: Cigarette Cigarette Packs Per Day: 20 Cigarettes Per Day: 400.0 Years Smoked: 20 Smoked in Last 30 Days: No e-Cigarette/Vaping Use: Never Used Second Hand Smoke Exposure: No Use of substances other than those prescribed or required for medical reasons: Unable to respond Substance Use Type: Unknown Currently Displaying Signs/Symptoms of Drug Intoxication Withdrawal: No Advance Directives: Yes Advance Directives on File: Yes Advance Directives Date on File: 01/07/23 Do you have a plan to hurt others: No Plan Recently lost weight without trying: Unsure Patient : No : No Poor oral hygiene: No service: No Current occupational status: disabled Meds Allergies Allergy/AdvReac Type Severity Reaction Status Date / Time latex Allergy Unknown Unknown Verified 06/16/24 22:37 adhesive tape AdvReac Unknown Unknown Verified 06/16/24 22:37 bupropion [From Wellbutrin] AdvReac Unknown Unknown Verified 06/16/24 22:37 ibuprofen AdvReac Unknown Unknown Verified 06/16/24 22:37 Active Medications: Current Medications Enoxaparin Sodium (Enoxaparin Sodium 40 Mg/0.4 Ml Syringe) 40 mg SUBCUT BID ROSSY Home Medications ?Medication ?Instructions ?Recorded ?Confirmed ?Last Taken ?Type atorvastatin 80 mg tablet 80 mg PO BEDTIME 11/18/21 06/17/24 Unknown History ferrous sulfate 325 mg (65 mg 325 mg PO DAILY 11/18/21 06/17/24 Unknown History iron) tablet insulin lispro 100 unit/mL See Protocol subcut QIDACHS 11/18/21 06/17/24 Unknown History subcutaneous pen melatonin 3 mg tablet 3 mg PO BEDTIME 11/18/21 06/17/24 Unknown History sennosides 8.6 mg tablet (senna) 17.2 mg PO BEDTIME 11/18/21 06/17/24 Unknown History sertraline 100 mg tablet 200 mg PO DAILY 11/18/21 06/17/24 Unknown History tizanidine 4 mg tablet 4 mg PO BEDTIME PRN Muscle Spasm 11/18/21 06/17/24 Unknown History aspirin 81 mg chewable tablet 81 mg PO DAILY 01/05/22 06/17/24 Unknown History bupropion HCl 300 mg 24 hr tablet, 300 mg PO DAILY 04/09/22 06/17/24 Unknown History extended release Lactobacillus rhamnosus GG 10 1 cap PO BID 10/09/22 06/17/24 Unknown History billion cell capsule (Culturelle) bupropion HCl 150 mg 24 hr tablet, 150 mg PO DAILY 10/09/22 06/17/24 Unknown History extended release potassium chloride 10 mEq 10 meq PO DAILY 10/09/22 06/17/24 Unknown History tablet,extended release bisacodyl 10 mg rectal suppository 10 mg ID DAILY PRN Constipation, 10/21/22 06/17/24 Unknown History No results from [facility] sodium phosphates 19 gram-7 118 ml ID DAILY PRN Constipation 11/09/22 06/17/24 Unknown History gram/118 mL enema (Fleet Enema) metformin 500 mg tablet 500 mg PO BID 12/27/22 06/17/24 Unknown History semaglutide 0.25 mg or 0.5 mg (2 0.5 mg subcut WE 12/27/22 06/17/24 Unknown History mg/3 mL) subcutaneous pen injector (Ozempic) cholecalciferol (vitamin D3) 25 25 mcg PO DAILY 04/04/23 06/17/24 Unknown History mcg (1,000 unit) tablet insulin glargine 100 unit/mL 25 unit subcut DAILY 04/04/23 06/17/24 Unknown History subcutaneous solution (Lantus U-100 Insulin) losartan 25 mg tablet 25 mg PO DAILY 04/04/23 06/17/24 Unknown History megestrol 400 mg/10 mL (40 mg/mL) 400 mg PO TID 04/04/23 06/17/24 Unknown History oral suspension olopatadine 0.2 % eye drops 1 drp ophthalmic (eye) TID 04/04/23 06/17/24 Unknown History cyanocobalamin (vitamin B-12) 1,000 mcg PO DAILY 04/21/23 06/17/24 Unknown History 1,000 mcg capsule magnesium hydroxide 400 mg/5 mL 30 ml PO DAILY PRN Constipation 10/02/23 06/17/24 Unknown History oral suspension (Milk of Magnesia) empagliflozin 25 mg tablet 25 mg PO DAILY 02/16/24 06/17/24 Unknown History (Jardiance) fluticasone 113 mcg-salmeterol 14 1 inh inhalation DAILY 02/16/24 06/17/24 Unknown History mcg/actuation breath activated powdr magnesium citrate 300 ml PO DAILY PRN Constipation 02/16/24 06/17/24 Unknown History polyethylene glycol 3350 17 17 g PO DAILY PRN Constipation 02/16/24 06/17/24 Unknown History gram/dose oral powder (Miralax) acetaminophen 650 mg 650 mg PO Q4H PRN General 05/21/24 06/17/24 Unknown History tablet,extended release Discomfort ipratropium 0.5 mg-albuterol 3 mg 3 ml inhalation TID wheezing 06/17/24 06/17/24 Unknown History (2.5 mg base)/3 mL nebulization soln Physical Exam Vital Signs: Vital Signs: Last Vital Signs Temp 98.8 F 06/17/24 00:52 Pulse 83 06/17/24 00:52 Resp 14 06/17/24 00:52 BP 141/83 H 06/17/24 01:36 Pulse Ox 98 06/17/24 00:52 O2 Del Method BiPAP 06/17/24 00:52 FiO2 60 06/17/24 00:52 BMI result Body Mass Index 53.4 ?General:? Lethargic, but able to answer yes/no questions. at times does not want ?HEENT:? Head is normocephalic, atraumatic, pupils equal round reactive to light accommodation bilaterally.? Extraocular movements appear intact.? Buccal mucosa is dry, Neck is supple ?Cardiac:? Paced rhythm, no murmurs ?Pulmonary:? Rhonchorous throughout. No wheezing. on BiPAP ?Abdomen:? ?Abdomen soft, non-tender, non-distended. Normal bowel sounds. No pulsatile mass. No hepatosplenomegaly. ?Musculoskeletal:? Moving all 4 extremities randomly. ?Neurologic:? No focal deficits noted.Motor strength as above.?? ?Skin:? Intact, no lesions, edema, erythema, clubbing or cyanosis.? No ulcers. Vascular:? 2+ pulses upper and lower extremities distally.? Bilateral lower extremity trace edema Results Labs 06/17/24 05:23 06/17/24 05:23 Labs: Laboratory Results - last 24 hr 06/16/24 06/16/24 06/16/24 22:20 22:24 22:30 MCV 96.6 MCH 28.5 MCHC 29.5 L RDW 15.4 Plt Count 211 MPV 10.2 Immature Gran % (Auto) 0.5 H Neut % (Auto) 84.1 H Lymph % (Auto) 7.9 L [place] % (Auto) 5.7 Eos % (Auto) 1.4 Baso % (Auto) 0.4 Lymph # (Auto) 0.9 L [place] # (Auto) 0.6 Eos # (Auto) 0.2 Baso # (Auto) 0.0 Abs Immat Gran (auto) 0.06 H Absolute Neuts (auto) 9.2 H Absolute Nucleated RBC 0.000 Nucleated RBC % (auto) 0.0 PT 11.2 INR 1.0 VBG pH 7.14 L* VBG pCO2 88 VBG pO2 156 VBG HCO3 30 H VBG O2 Saturation 99.0 VBG Base Excess -1.4 Anion Gap 12 Estim Creat Clear Calc 101.2 Estimated GFR > 60 Random Glucose 213 H Lactic Acid 0.7 Calcium 9.6 Magnesium 2.2 Total Bilirubin 0.2 Direct Bilirubin < 0.2 AST 11 ALT 19 Alkaline Phosphatase 90 Troponin I High Sens 24.7 H D C-Reactive Protein 15.59 H B-Natriuretic Peptide 123 H Total Protein 7.3 Albumin 3.7 Procalcitonin 0.23 Urine Color Urine Appearance Urine pH Ur Specific [place] Urine Protein Urine Glucose (UA) Urine Ketones Urine Blood Urine Nitrite Ur Leukocyte Esterase Urine RBC Urine WBC Ur Squamous Epith Cells Urine Bacteria Hyaline Casts Influenza Type A (PCR) NEGATIVE Influenza Type B (PCR) NEGATIVE RSV RNA Qual (PCR) NEGATIVE SARS-CoV-2 RNA (RT-PCR) NEGATIVE 06/16/24 06/17/24 23:10 00:51 MCV MCH MCHC RDW Plt Count MPV Immature Gran % (Auto) Neut % (Auto) Lymph % (Auto) [place] % (Auto) Eos % (Auto) Baso % (Auto) Lymph # (Auto) [place] # (Auto) Eos # (Auto) Baso # (Auto) Abs Immat Gran (auto) Absolute Neuts (auto) Absolute Nucleated RBC Nucleated RBC % (auto) PT INR VBG pH 7.23 L VBG pCO2 60 VBG pO2 53 VBG HCO3 25 VBG O2 Saturation 85.0 VBG Base Excess -3.1 Anion Gap Estim Creat Clear Calc Estimated GFR Random Glucose Lactic Acid Calcium Magnesium Total Bilirubin Direct Bilirubin AST ALT Alkaline Phosphatase Troponin I High Sens C-Reactive Protein B-Natriuretic Peptide Total Protein Albumin Procalcitonin Urine Color Yellow Urine Appearance Clear Urine pH 5.5 Ur Specific [place] >= 1.030 H Urine Protein Trace Urine Glucose (UA) >=1000 H Urine Ketones Negative Urine Blood Negative Urine Nitrite Positive H Ur Leukocyte Esterase Trace H Urine RBC 0-2 Urine WBC >50 H Ur Squamous Epith Cells 3-5 Urine Bacteria 4+ Hyaline Casts 3-5 Influenza Type A (PCR) Influenza Type B (PCR) RSV RNA Qual (PCR) SARS-CoV-2 RNA (RT-PCR) Imaging Radiologist's Impressions: Impressions Chest X-Ray 06/16/24 22:05 IMPRESSION: 1. Cardiomegaly with mild pulmonary vascular congestion. 2. Scattered patchy densities in the lungs are improved when compared to the prior study. Electronically signed by: Josesito Lund MD 06/16/2024 11:38 PM EDT Assessment and Plan (1) Acute respiratory failure with hypoxia and hypercapnia: Status: Resolved (2) Acute UTI: Status: Resolved (3) Pulmonary edema: Status: Acute (4) ESBL (extended spectrum beta-lactamase) producing bacteria infection: Status: Acute Plan 63-year-old female with a past medical history of morbid obesity, obesity hypoventilation syndrome with CO2 retention, COPD? ( on home O2 2-3 L ), diabetes mellitus, diastolic dysfunction,? 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, ? mood disorder,? diabetes ulcer, ESBL UTIs? admitted for management of acute hypoxic and hypercapnic respiratory failure secondary to pulmonary edema and acute UTI? Plan: Neuro:? No acute issues. Cardiac:?? Pulmonary edema:? chest x-ray with evidence of some pulmonary congestion.? Underlying history of diastolic dysfunction.? BNP slightly elevated,? as well as troponin Will give? Lasix.? Monitor for diuresing.? Pulmonary:?? Acute hypoxic and hypercapnic respiratory failure secondary to pulmonary edema,? do not believe there is COPD exacerbation as patient? has no wheezing.? Continue diuresing.? Wean off BiPAP as tolerated Renal:? No acute issues.?? Endo:? No acute issues.?? GI:?? No acute issues ID:? ?Acute UTI:? no evidence of? severe sepsis,? lactic is negative.? Patient does have a history of ESBL UTIs,? urine study positive for acute UTI.? cultures are pending.? Received meropenem in the emergency department.? We will continue.? Heme/Onc:? No acute issues. Psych: ? no acute issues Miscellaneous:? No acute issues. Prophylaxis:? lovenox? Diet: NPO while on BIPAP CODE: FULL CODE, ED physician confirmed with Critical care time spent:? 60 minutes
--- NOTE | 2024-06-17 04:09 | HO.SKINPHOTO ---
Location: Buttocks Category: Redness Stage: Length: Width: Depth: cm
[2024-06-17 05:37] LABS: VBG Base Excess 2.3 mmol/L; VBG HCO3 28 mmol/L (22-26); VBG pCO2 50 mmHg; VBG pH 7.36 (7.32-7.43); VBG pO2 112 mmHg
[2024-06-17 05:38] LABS: Venous Blood Gas Refer to POC result
[2024-06-17 05:40] LABS: Hematocrit 43.6 % (37.0-47.0); Mean Corpuscular HGB Conc 29.8 g/dl (31.0-35.0); Mean Corpuscular Hemoglobin 28.3 pg (27.0-33.0); Platelet Count 166 X10*3/uL (160-400); Red Blood Count 4.59 X10*6/uL (4.20-5.50); Red Cell Distribution Width 15.2 % (11.0-16.0); White Blood Count 7.2 X10*3/uL (4.8-10.8)
[2024-06-17 06:01] LABS: Albumin Level 3.4 g/dL (3.5-5.0); Anion Gap 15 (12-20); Blood Urea Nitrogen 23 mg/dL (9-16); Calcium 9.9 mg/dL (8.4-10.2); Carbon Dioxide 26 mmol/L (22-29); Chloride 108 mmol/L (96-108); Creatinine Clr Calc Pharmacy 93.2; Estimated Glomerular Filt Rate > 60; Glucose Random 233 mg/dL (60-115); Magnesium 2.1 mg/dL (1.6-2.6); Phosphorus 4.3 mg/dL (2.7-4.5); Potassium 4.8 mmol/L (3.3-5.1); Sodium 144 mmol/L (135-145)
[2024-06-17 06:02] LABS: Troponin-I High Sensitivity 21.5 ng/L (<3.5-17.0)
[2024-06-17 06:06] LABS: Band Neutrophils Percent 12 % (3-5); Lymphocytes Absolute Manual 0.2 X10*3/uL (1.2-4.9); Lymphocytes Percent Manual 3 % (20-40); Monocytes Absolute Manual 0.1 X10*3/uL (0.1-1.2); Monocytes Percent Manual 2 % (2-11); Neutrophils Absolute Manual 6.8 X10*3/uL (2.0-8.3); Neutrophils Percent Manual 83 % (45-73)
[2024-06-17 06:07] LABS: Acanthocytes 1+ (0-2) /OIF; Ovalocytes 1+ (5-14) /OIF; Platelet Estimate NORMAL (NORMAL); Platelet Morphology Comment NORMAL; Polychromasia 1+ (0-2) /OIF; RBC Morphology NOTED; Tear Drop Cells 1+ (0-2) /OIF
[2024-06-17 06:08] LABS: Rouleau PRESENT
--- NOTE | 2024-06-17 07:55 | PHA.MEDREC ---
Pharmacy Consult ? Medication Reconciliation Pharmacy has completed the medication reconciliation. Patient with list from [facility]
[2024-06-17] MEDS: acetaZOLAMIDE sodium 500 MG VIAL 250 MG IVPUSH ×2 (08:36→21:22)
[2024-06-17] MEDS: Insulin Glargine,Hum.rec.anlog 100 UNIT/ML 10 ML VIAL 20 UNIT SUBCUT (08:37)
[2024-06-17] MEDS: Enoxaparin Sodium 40 MG/0.4 ML SYRINGE SUBCUT ×2 (08:37→21:17)
--- NOTE | 2024-06-17 10:03 | MHC.CM.PN ---
Pt is well known to [facility]: [facility] who is frequently admitted for COPD/hypercapnic respiratory failure. Pt will return to SNF once medically stable. IMM completed : HCP in chart. BLS to transport. Spouse updated and in agreement w/d/c plan. CM to follow.
[2024-06-17 11:13] LABS: Glucose, Whole Blood 202 mg/dL (60-115)
[2024-06-17] MEDS: Insulin Lispro 100 UNIT/ML 3 ML VIAL SUBCUT ×3 (12:47→21:24)
--- NOTE | 2024-06-17 14:59 | PC.RT ---
13:30 pt transitioned to n/c off bipap by nursing, RT aware.Pt caleb well.
[2024-06-17 16:37] LABS: Glucose, Whole Blood 184 mg/dL (60-115)
--- NOTE | 2024-06-17 17:08 | PM.EVENT ---
Event Note Date of Service: 06/17/24 Event Note: The patient is a 63-year-old female with a past medical history of morbid obesity, obesity hypoventilation syndrome with CO2 retention, COPD? ( on home O2 2-3 L ), diabetes mellitus, diastolic dysfunction,? 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, ? mood disorder,? diabetes ulcer, ESBL UTIs recent admission 05/21/24 to 05/23/24 for acute respiratory failure secondary to COPD exacerbation and ESBL UTI.? Tonight, she presented to the emergency department? via EMS from [facility] with complaints of dyspnea.? According to EMS patient was satting 85% on 2 L nasal cannula,? was unresponsive,? she was placed on non-rebreather,? and on arrival to the emergency department she was cyanotic satting 72%,? she was placed on BiPAP and started to wake up shortly after.? Admitted to the ICU and treated for acute CHF exacerbation, acute on chronic hypercarbic respiratory failure as well as presumed UTI. History of ESBL therefore started on meropenem. Urine cultures pending treated with IV Lasix and IV acetazolamide, respiratory status and mental status improved. Downgraded to the medical floor 06/17 Time Spent With Patient Time: Total time managing care of this patient today ____ minutes.
[2024-06-17 19:35] LABS: Glucose, Whole Blood 276 mg/dL (60-115)
[2024-06-18] VITALS (8 sets, daily range): BP systolic 128–143; BP diastolic 64–81; PULSE 71–91; RESP 14–23; TEMP 36.1–37.4; O2SAT 93–98
[2024-06-18 08:06] LABS: Glucose, Whole Blood 103 mg/dL (60-115)
[2024-06-18] MEDS: modafiniL 100 MG TABLET PO (09:11)
[2024-06-18] MEDS: Insulin Glargine,Hum.rec.anlog 100 UNIT/ML 10 ML VIAL 20 UNIT SUBCUT (09:11)
[2024-06-18] MEDS: Furosemide 40 MG/4 ML VIAL IVPUSH (09:11)
[2024-06-18] MEDS: acetaZOLAMIDE sodium 500 MG VIAL 250 MG IVPUSH ×2 (09:11→21:07)
[2024-06-18] MEDS: Enoxaparin Sodium 40 MG/0.4 ML SYRINGE SUBCUT ×2 (09:11→21:07)
[2024-06-18 10:22] LABS: B Type Natriuretic Peptide 38 pg/mL (<100)
[2024-06-18 10:24] LABS: Anion Gap 15 (12-20); Blood Urea Nitrogen 36 mg/dL (9-16); Calcium 9.2 mg/dL (8.4-10.2); Carbon Dioxide 27 mmol/L (22-29); Chloride 106 mmol/L (96-108); Creatinine Clr Calc Pharmacy 117.2; Estimated Glomerular Filt Rate > 60; Glucose Random 176 mg/dL (60-115); Potassium 3.7 mmol/L (3.3-5.1); Sodium 144 mmol/L (135-145)
[2024-06-18] MEDS: guaiFENesin DM 200/20/10 ML 10 ML SYRUP PO ×2 (10:57→20:18)
[2024-06-18 10:59] LABS: Glucose, Whole Blood 233 mg/dL (60-115)
[2024-06-18] MEDS: Insulin Lispro 100 UNIT/ML 3 ML VIAL SUBCUT ×3 (12:09→21:08)
--- NOTE | 2024-06-18 14:35 | HO.PM.IMPN ---
Subjective Subjective Date of Service: 06/18/24 Interval History: Seen and examined this morning Follow-up for respiratory failure Reporting significant amount of coughing, denies shortness of breath at this time Review of Systems Review of Systems: Yes all other systems are reviewed and are negative Constitutional Constitutional: Denies chills and Denies fever(s) Cardiovascular Cardiovascular: Denies chest pain Respiratory Respiratory: Reports cough Physical Exam Vital Signs: Vital Signs: Last Vital Signs Temp 97.9 F 06/18/24 11:26 Pulse 91 06/18/24 11:26 Resp 14 06/18/24 11:26 BP 130/70 06/18/24 11:26 Pulse Ox 93 06/18/24 11:26 O2 Del Method Nasal Cannula 06/18/24 11:26 O2 Flow Rate 3 06/18/24 11:26 FiO2 28 06/18/24 07:16 BMI result Body Mass Index 70.5 Const: General: cooperative, no acute distress, alert and awake Nutritional Appearance: obese Orientation/consciousness: patient oriented x3 Resp: Other: b/l rhonchi, expiratory wheeze Effort & Inspection: normal respiratory effort, able to speak in complete sentences and Actively coughing Cardio: Rate: regular rate GI: Inspection: No distended and Yes obesity Palpation (GI): Soft to palpation Neuro: General: patient oriented x3, moves all extremities and CN's II-XI intact bilaterally Extrem: General: Yes no pedal edema Objective Data Active Medications Acetaminophen (Acetaminophen 325 Mg Tablet) 975 mg PO Q6H PRN PRN Reason: Pain, Mild (Pain Scale 1-3) Acetazolamide (Acetazolamide Sodium 500 Mg Vial) 250 mg IVPUSH BID [facility] Last Admin: 06/18/24 09:11 Dose: 250 mg Documented By: CHOCO Atorvastatin Calcium (Atorvastatin Calcium 80 Mg Tablet) 80 mg PO BEDTIME [facility] Bupropion HCl (Bupropion Hcl Xl 150 Mg Tab.Er.24h) 150 mg PO DAILY [facility] Bupropion HCl (Bupropion Hcl Xl 300 Mg Tab.Er.24h) 300 mg PO DAILY [facility] Enoxaparin Sodium (Enoxaparin Sodium 40 Mg/0.4 Ml Syringe) 40 mg SUBCUT BID [facility] Last Admin: 06/18/24 09:11 Dose: 40 mg Documented By: CHOCO Ferrous Sulfate (Ferrous Sulfate 324 Mg Tablet.Dr) 324 mg PO DAILY ROSSY Furosemide (Furosemide 40 Mg Tablet) 40 mg PO DAILY ROSSY; Protocol Guaifenesin/Dextromethorphan (Guaifenesin Dm 200/20/10 Ml 10 Ml Syrup) 10 ml PO Q6H PRN PRN Reason: Cough Last Admin: 06/18/24 10:57 Dose: 10 ml Documented By: CHOCO Meropenem 1 gm/ Sodium (Chloride) 100 mls @ 200 mls/hr IV Q8H ROSSY Last Infusion: 06/18/24 10:24 Dose: Infused Documented By: CHOCO Insulin Glargine (Insulin Glargine,Hum.Rec.Anlog 100 Unit/Ml 10 Ml Vial) 20 unit SUBCUT DAILY [facility] Last Admin: 06/18/24 09:11 Dose: 20 unit Documented By: CHOCO Insulin Human Lispro (Insulin Lispro 100 Unit/Ml 3 Ml Vial) 0 unit SUBCUT QIDACHS [facility]; Protocol Last Admin: 06/18/24 12:09 Dose: 4 unit Documented By: CHOCO Ketotifen Fumarate (Ketotifen Fumarate 0.025% Oph 5 Ml Drpbtl) 1 drop EYE-BOTH BID ROSSY Modafinil (Modafinil 100 Mg Tablet) 100 mg PO DAILY [facility] Last Admin: 06/18/24 09:11 Dose: 100 mg Documented By: CHOCO Senna (Sennosides 8.6 Mg Tablet) 17.2 mg PO BEDTIME ROSSY Sertraline HCl (Sertraline Hcl 100 Mg Tablet) 200 mg PO DAILY [facility] Spironolactone (Spironolactone 25 Mg Tablet) 25 mg PO DAILY [facility]; Protocol Labs 06/17/24 05:23 06/18/24 09:32 Labs: Laboratory Results - last 24 hr 06/17/24 06/17/24 06/18/24 16:34 19:23 07:59 Anion Gap Estim Creat Clear Calc Estimated GFR POC Glucose 184 H 276 H 103 Random Glucose Calcium B-Natriuretic Peptide 06/18/24 06/18/24 09:32 10:54 Anion Gap 15 Estim Creat Clear Calc 117.2 Estimated GFR > 60 POC Glucose 233 H Random Glucose 176 H Calcium 9.2 D B-Natriuretic Peptide 38 Microbiology Microbiology Results: Microbiology 06/16/24 Unknown Urine Culture - Preliminary Urine Catheterized - Sood Catheter Gram negative nataly 06/16/24 22:24 Blood Culture - Preliminary Blood - Venous No growth after 24 hours. 06/16/24 22:20 Blood Culture - Preliminary Blood - Venous No growth after 24 hours. Assessment and Plan (1) Acute and chronic respiratory failure: Status: Acute Plan The patient is a 63-year-old female with a past medical history of morbid obesity, obesity hypoventilation syndrome with CO2 retention, COPD? ( on home O2 2-3 L ), diabetes mellitus, diastolic dysfunction,? 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, mood disorder,? diabetes ulcer, ESBL UTIs recent admission 05/21/24 to 05/23/24 for acute respiratory failure secondary to COPD exacerbation and ESBL UTI.?she presented to the emergency department? via EMS from [facility] with complaints of dyspnea.? According to EMS patient was satting 85% on 2 L nasal cannula,? was unresponsive,? she was placed on non-rebreather,? and on arrival to the emergency department she was cyanotic satting 72%,? she was placed on BiPAP and started to wake up shortly after - admitted to the ICU for rescue bipap Acute on chronic hypercapnic and hypoxic respiratory failure likely multifactorial due to Obesity hypoventilation, Co2 retention and acute on chronic systolic congestive heart failure Supplemental oxygen to keep O2 sats above 90%, down to baseline requirements continue Nocturnal BiPAP Acute toxic metabolic encephalopathy secondary to CO2 narcosis resolved Acute on chronic diastolic CHF overall net negative, BNP trending down, we will transitioned to home dose of Lasix Continue acetazolamide, likely transition to baseline p.o. dose in am will transition to p.o. diuretics and resume aldactone Continue Jardiance urinary tract infection. History of ESBL Continue IV meropenem Follow urine cultures, growing GNR Type 2 diabetes mellitus. Metformin on hold Continue lower dose of Lantus continue Insulin sliding scale. Essential hypertension. bp controlled off bp meds follow closely norvac, losartan on hold Hyperlipidemia. Continue statin. Morbid obesity. BMI 70 Body habitus directly contributing to respiratory status mood resume baseline medications. DVT prophylaxis: magdi dispo - LTC resident of [facility] Patient requires ongoing inpatient stay for respiratory failure Quality Stroke Does the patient have a stroke diagnosis?: No VTE Prior VTE?: No VTE Risk Level:: Medical - moderate - high VTE Device Contraindication: N/A - Device Ordered VTE Drug Contraindication: N/A - Med Ordered
--- NOTE | 2024-06-18 14:50 | P.CDIM_ITS ---
PROVIDER RESPONSE TEXT: To clarify, the appropriate diagnosis supported by the clinical indicators: Diastolic: acute on chronic QUERY TEXT: PHYSICIAN'S DOCUMENTATION REQUEST Date of Query: 06/18/2024 12:03 PM EDT Patient Name: Bonnie Das Admit Date: 06/17/2024 Dear Bonnie STONE, A review of the medical record indicates additional documentation may be needed. Please review below and update the documentation accordingly. Clinical Indicators: Per H&P 06/17/24: underlying history of diastolic dysfunction. BNP slightly elevated. PMH CHF Per Event Note 06/17/24: PMH diastolic dysfunction, treated for acute CHF exacerbation Please provide further specificity regarding the most likely type and acuity of CHF you are evaluatin g, treating, or monitoring. Systolic Please specify if Acute, Chronic, or Acute on chronic, or Unable to determine Diastolic Please specify if Acute, Chronic, or Acute on chronic, or Unable to determine Combined Systolic/Diastolic Please specify if Acute, Chronic, or Acute on chronic, or Unable to determine Other (explain) Clinically unable to determine (explain) Thank you, Sarah Cannon RN Use of terms such as suspected, likely, concern for, or probable (associated with a specific diagnosi s that is being evaluated, monitored, or treated as if it exists) are acceptable and can be coded in the inpatient se tting, when documented at the time of discharge. Please use your independent medical judgment in providing your response. THIS QUERY IS PART OF THE PERMANENT MEDICAL RECORD
[2024-06-18 15:36] LABS: Glucose, Whole Blood 188 mg/dL (60-115)
[2024-06-18] MEDS: Ketotifen Fumarate 0.025% Oph 5 ML DRPBTL 1 DROP EYE-BOTH (16:52)
[2024-06-18 20:12] LABS: Glucose, Whole Blood 173 mg/dL (60-115)
[2024-06-18] MEDS: Acetaminophen 325 MG TABLET 975 MG PO (21:06)
[2024-06-18] MEDS: Sennosides 8.6 MG TABLET 17.2 MG PO (21:07)
[2024-06-18] MEDS: Atorvastatin Calcium 80 MG TABLET PO (21:07)
[2024-06-19] VITALS (7 sets, daily range): BP systolic 113–150; BP diastolic 58–71; PULSE 74–92; RESP 18; TEMP 36–36.4; O2SAT 90–97
[2024-06-19] MEDS: guaiFENesin DM 200/20/10 ML 10 ML SYRUP PO ×3 (00:53→20:52)
--- NOTE | 2024-06-19 02:18 | PC.NURSE ---
0130 Patient alert and oriented. Pt insisting BIPAP be taken off as she can not tolerate it tonight. Patient reports I don't care what happens to me as I will not wear the BiPap tonight as it makes too much noise . Take it off me before I rip it off . Reviewed with the patient the risk of not wearing the Bipap and patient declined ear plugs to help assist with the noise. Offered patient to have respiratory come and adjust settings but patient declined. Respiratory therapist notified of patient's request. Patient paced back on nasal cannula and offered at any point during night if she reconsiders we can attempt the Bipap again.
[2024-06-19] MEDS: Acetaminophen 325 MG TABLET 975 MG PO ×2 (04:48→20:52)
[2024-06-19 08:06] LABS: Glucose, Whole Blood 109 mg/dL (60-115)
[2024-06-19 08:40] LABS: Anion Gap 11 (12-20); Blood Urea Nitrogen 30 mg/dL (9-16); Calcium 8.9 mg/dL (8.4-10.2); Carbon Dioxide 30 mmol/L (22-29); Chloride 105 mmol/L (96-108); Creatinine Clr Calc Pharmacy 132.9; Estimated Glomerular Filt Rate > 60; Glucose Random 112 mg/dL (60-115); Potassium 3.8 mmol/L (3.3-5.1); Sodium 142 mmol/L (135-145)
[2024-06-19] MEDS: Ferrous Sulfate 324 MG TABLET.DR PO (09:26)
[2024-06-19] MEDS: Sertraline HCL 100 MG TABLET 200 MG PO (09:26)
[2024-06-19] MEDS: acetaZOLAMIDE 250 MG TABLET 500 MG PO ×2 (09:26→20:52)
[2024-06-19] MEDS: buPROPion HCl XL 150 MG TAB.ER.24H PO (09:26)
[2024-06-19] MEDS: Spironolactone 25 MG TABLET PO (09:26)
[2024-06-19] MEDS: modafiniL 100 MG TABLET PO (09:26)
[2024-06-19] MEDS: buPROPion HCl XL 300 MG TAB.ER.24H PO (09:26)
[2024-06-19] MEDS: Furosemide 40 MG TABLET PO (09:26)
[2024-06-19] MEDS: Enoxaparin Sodium 40 MG/0.4 ML SYRINGE SUBCUT ×2 (09:27→20:54)
[2024-06-19] MEDS: Insulin Glargine,Hum.rec.anlog 100 UNIT/ML 10 ML VIAL 20 UNIT SUBCUT (09:27)
[2024-06-19] MEDS: Ketotifen Fumarate 0.025% Oph 5 ML DRPBTL 1 DROP EYE-BOTH ×2 (09:33→20:55)
[2024-06-19 11:57] LABS: Glucose, Whole Blood 187 mg/dL (60-115)
[2024-06-19] MEDS: Insulin Lispro 100 UNIT/ML 3 ML VIAL SUBCUT ×2 (12:08→16:36)
--- NOTE | 2024-06-19 13:31 | HO.PM.IMPN ---
Subjective Subjective Date of Service: 06/19/24 Interval History: Seen and examined this morning Follow-up for respiratory failure, UTI reporting cough, no sob only able to tolerate bipap for short time overnight breathing improved Review of Systems Review of Systems: Yes all other systems are reviewed and are negative Constitutional Constitutional: Denies chills and Denies fever(s) Cardiovascular Cardiovascular: Denies chest pain and Denies dyspnea Respiratory Respiratory: Reports cough and Denies dyspnea Physical Exam Vital Signs: Vital Signs: Last Vital Signs Temp 97.4 F 06/19/24 11:27 Pulse 74 06/19/24 11:27 Resp 18 06/19/24 11:27 BP 150/68 H 06/19/24 11:27 Pulse Ox 94 06/19/24 11:27 O2 Del Method Room Air 06/19/24 11:27 O2 Flow Rate 4 06/19/24 03:14 FiO2 28 06/18/24 07:16 BMI result Body Mass Index 70.5 Const: General: cooperative, no acute distress, alert and awake Nutritional Appearance: obese Orientation/consciousness: patient oriented x3 Resp: Other: scattered rhonchi Effort & Inspection: normal respiratory effort, able to speak in complete sentences and Actively coughing Cardio: Rate: regular rate GI: Inspection: No distended and Yes obesity Palpation (GI): Soft to palpation Neuro: General: patient oriented x3, moves all extremities and CN's II-XI intact bilaterally Extrem: General: Yes no pedal edema Objective Data Active Medications Acetaminophen (Acetaminophen 325 Mg Tablet) 975 mg PO Q6H PRN PRN Reason: Pain, Mild (Pain Scale 1-3) Last Admin: 06/19/24 04:48 Dose: 975 mg Documented By: NANCY Acetazolamide (Acetazolamide 250 Mg Tablet) 500 mg PO BID [facility] Last Admin: 06/19/24 09:26 Dose: 500 mg Documented By: CHOCO Atorvastatin Calcium (Atorvastatin Calcium 80 Mg Tablet) 80 mg PO BEDTIME [facility] Last Admin: 06/18/24 21:07 Dose: 80 mg Documented By: NANCY Bupropion HCl (Bupropion Hcl Xl 150 Mg Tab.Er.24h) 150 mg PO DAILY [facility] Last Admin: 06/19/24 09:26 Dose: 150 mg Documented By: CHOCO Bupropion HCl (Bupropion Hcl Xl 300 Mg Tab.Er.24h) 300 mg PO DAILY [facility] Last Admin: 06/19/24 09:26 Dose: 300 mg Documented By: CHOCO Enoxaparin Sodium (Enoxaparin Sodium 40 Mg/0.4 Ml Syringe) 40 mg SUBCUT BID [facility] Last Admin: 06/19/24 09:27 Dose: 40 mg Documented By: CHOCO Ferrous Sulfate (Ferrous Sulfate 324 Mg Tablet.Dr) 324 mg PO DAILY [facility] Last Admin: 06/19/24 09:26 Dose: 324 mg Documented By: CHOCO Furosemide (Furosemide 40 Mg Tablet) 40 mg PO DAILY [facility]; Protocol Last Admin: 06/19/24 09:26 Dose: 40 mg Documented By: CHOCO Guaifenesin/Dextromethorphan (Guaifenesin Dm 200/20/10 Ml 10 Ml Syrup) 10 ml PO Q6H PRN PRN Reason: Cough Last Admin: 06/19/24 06:35 Dose: 10 ml Documented By: NANCY Comments: for cough Ceftriaxone Sodium 1 gm/ (Sodium Chloride) 50 mls @ 100 mls/hr IV Q24H [facility] Insulin Glargine (Insulin Glargine,Hum.Rec.Anlog 100 Unit/Ml 10 Ml Vial) 20 unit SUBCUT DAILY [facility] Last Admin: 06/19/24 09:27 Dose: 20 unit Documented By: CHOCO Insulin Human Lispro (Insulin Lispro 100 Unit/Ml 3 Ml Vial) 0 unit SUBCUT QIDACHS [facility]; Protocol Last Admin: 06/19/24 12:08 Dose: 2 unit Documented By: YURI Ketotifen Fumarate (Ketotifen Fumarate 0.025% Oph 5 Ml Drpbtl) 1 drop EYE-BOTH BID [facility] Last Admin: 06/19/24 09:33 Dose: 1 drop Documented By: YURI Modafinil (Modafinil 100 Mg Tablet) 100 mg PO DAILY [facility] Last Admin: 06/19/24 09:26 Dose: 100 mg Documented By: CHOCO Senna (Sennosides 8.6 Mg Tablet) 17.2 mg PO BEDTIME [facility] Last Admin: 06/18/24 21:07 Dose: 17.2 mg Documented By: NANCY Sertraline HCl (Sertraline Hcl 100 Mg Tablet) 200 mg PO DAILY [facility] Last Admin: 06/19/24 09:26 Dose: 200 mg Documented By: CHOCO Spironolactone (Spironolactone 25 Mg Tablet) 25 mg PO DAILY [facility]; Protocol Last Admin: 06/19/24 09:26 Dose: 25 mg Documented By: CHOCO Labs 06/17/24 05:23 06/19/24 08:05 Labs: Laboratory Results - last 24 hr 06/18/24 06/18/24 06/19/24 15:33 20:07 07:43 Anion Gap Estim Creat Clear Calc Estimated GFR POC Glucose 188 H 173 H 109 Random Glucose Calcium 06/19/24 06/19/24 08:05 11:25 Anion Gap 11 L Estim Creat Clear Calc 132.9 Estimated GFR > 60 POC Glucose 187 H Random Glucose 112 Calcium 8.9 Microbiology Microbiology Results: Microbiology 06/16/24 Unknown Urine Culture - Preliminary Urine Catheterized - Sood Catheter Escherichia coli 06/16/24 22:24 Blood Culture - Preliminary Blood - Venous No growth after 48 hours. 06/16/24 22:20 Blood Culture - Preliminary Blood - Venous No growth after 48 hours. Assessment and Plan (1) Acute UTI: Status: Acute (2) Pulmonary edema: Status: Acute Plan The patient is a 63-year-old female with a past medical history of morbid obesity, obesity hypoventilation syndrome with CO2 retention, COPD? ( on home O2 2-3 L ), diabetes mellitus, diastolic dysfunction,? 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, mood disorder,? diabetes ulcer, ESBL UTIs recent admission 05/21/24 to 05/23/24 for acute respiratory failure secondary to COPD exacerbation and ESBL UTI.?she presented to the emergency department? via EMS from group home facility with complaints of dyspnea.? According to EMS patient was satting 85% on 2 L nasal cannula,? was unresponsive,? she was placed on non-rebreather,? and on arrival to the emergency department she was cyanotic satting 72%,? she was placed on BiPAP and started to wake up shortly after - admitted to the ICU for rescue bipap Acute on chronic hypercapnic and hypoxic respiratory failure likely multifactorial due to Obesity hypoventilation, Co2 retention and acute on chronic systolic congestive heart failure Supplemental oxygen to keep O2 sats above 90%, down to baseline requirements continue Nocturnal BiPAP Acute toxic metabolic encephalopathy secondary to CO2 narcosis resolved Acute on chronic diastolic CHF overall net negative, BNP trending down, transitioned to home dose of Lasix transitioned back to baseline p.o. acetazolamide will transition to p.o. diuretics and resume aldactone Continue Jardiance urinary tract infection. History of ESBL, initially treated with IV meropenem Urine cultures growing E coli sensitive to ceftriaxone. We will stop meropenem and transition to oral Ceftin Type 2 diabetes mellitus. Metformin on hold Continue lower dose of Lantus continue Insulin sliding scale. Essential hypertension. bp controlled off bp meds follow closely norvac, losartan on hold Hyperlipidemia. Continue statin. Morbid obesity. BMI 70 Body habitus directly contributing to respiratory status mood resume baseline medications. DVT prophylaxis: magdi dispo - LTC [facility] Patient requires ongoing inpatient stay for respiratory failure Quality Stroke Does the patient have a stroke diagnosis?: No VTE Prior VTE?: No VTE Risk Level:: Medical - moderate - high VTE Device Contraindication: N/A - Device Ordered VTE Drug Contraindication: N/A - Med Ordered
[2024-06-19 16:21] LABS: Glucose, Whole Blood 184 mg/dL (60-115)
[2024-06-19 20:36] LABS: Glucose, Whole Blood 136 mg/dL (60-115)
[2024-06-19] MEDS: Magnesium Sulfate/H2O 2 GM/50 ML PIGGYBACK IV (20:50)
[2024-06-19] MEDS: Sennosides 8.6 MG TABLET 17.2 MG PO (20:52)
[2024-06-19] MEDS: Atorvastatin Calcium 80 MG TABLET PO (20:52)
[2024-06-20 00:01] VITALS: PULSE 74; RESP 22; O2SAT 91
[2024-06-20 04:00] VITALS: BP 140/70; PULSE 68; RESP 16; TEMP 36.2; O2SAT 95
[2024-06-20] MEDS: cefuroxime axetiL 250 MG TABLET PO (05:36)
[2024-06-20] MEDS: guaiFENesin DM 200/20/10 ML 10 ML SYRUP PO (05:36)
[2024-06-20 07:19] VITALS: BP 161/55; PULSE 66; RESP 16; TEMP 36.8; O2SAT 93
[2024-06-20 07:37] LABS: Glucose, Whole Blood 110 mg/dL (60-115)
[2024-06-20] MEDS: Enoxaparin Sodium 40 MG/0.4 ML SYRINGE SUBCUT (09:39)
[2024-06-20] MEDS: acetaZOLAMIDE 250 MG TABLET 500 MG PO (09:39)
[2024-06-20] MEDS: Ferrous Sulfate 324 MG TABLET.DR PO (09:39)
[2024-06-20] MEDS: buPROPion HCl XL 300 MG TAB.ER.24H PO (09:39)
[2024-06-20] MEDS: buPROPion HCl XL 150 MG TAB.ER.24H PO (09:39)
[2024-06-20] MEDS: Insulin Glargine,Hum.rec.anlog 100 UNIT/ML 10 ML VIAL 20 UNIT SUBCUT (09:39)
[2024-06-20] MEDS: Sertraline HCL 100 MG TABLET 200 MG PO (09:39)
[2024-06-20 09:40] VITALS: BP 161/55
[2024-06-20] MEDS: Spironolactone 25 MG TABLET PO (09:40)
[2024-06-20] MEDS: Furosemide 40 MG TABLET PO (09:40)
[2024-06-20] MEDS: modafiniL 100 MG TABLET PO (09:40)
[2024-06-20] MEDS: Ketotifen Fumarate 0.025% Oph 5 ML DRPBTL 1 DROP EYE-BOTH (09:41)
--- NOTE | 2024-06-20 09:41 | PM.DS ---
DS: Providers Provider Date of Service: 06/20/24 Date of admission: 06/17/24 01:20 Date of discharge: 06/20/24 Primary care physician: Tita Bal MD Attending physician on discharge: Tom Batista Discharging clinician: Bonnie Macedo DS: Diagnosis Discharge Diagnosis (1) Acute UTI: Status: Acute (2) Pulmonary edema: Status: Acute DS: Summary Hospital Course Hospital Course: From H&P on the day of admission The patient is a 63-year-old female with a past medical history of morbid obesity, obesity hypoventilation syndrome with CO2 retention, COPD? ( on home O2 2-3 L ), diabetes mellitus, diastolic dysfunction,? 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, ? mood disorder,? diabetes ulcer, ESBL UTIs recent admission 05/21/24 to 05/23/24 for acute respiratory failure secondary to COPD exacerbation and ESBL UTI.? Tonight, she presented to the emergency department? via EMS from senior care facility with complaints of dyspnea.? According to EMS patient was satting 85% on 2 L nasal cannula,? was unresponsive,? she was placed on non-rebreather,? and on arrival to the emergency department she was cyanotic satting 72%,? she was placed on BiPAP and started to wake up shortly after.? Initial vital signs ? temperature 95.2 degrees, tachycardic 28, blood pressure 156/61 Laboratory data was significant for? WBC? 11, troponin 24, BNP 123 Venous gas:? 7.14/88/156/30. Urine concerning for UTI Imaging:? Chest x-ray:? concerning for pulmonary congestion ED Course:? she received albuterol 3 mg, Solu-Medrol 60 mg and meropenem 1 g Hospital course. Patient was Admitted to the ICU and treated for acute CHF exacerbation, acute on chronic hypercarbic respiratory failure as well as UTI. She required rescue BiPAP, IV acetazolamide and IV Lasix. Due to History of ESBL she was started on meropenem. respiratory status and mental status improved significantly and she was Downgraded to the medical floor 06/17. BNP normalized, overall net negative, resumed on on her baseline supplemental oxygen. She was transitioned back to baseline oral acetazolamide and Lasix. Urine cultures return growing E coli sensitive to ceftriaxone, patient will be transitioned to oral Ceftin upon discharge. Patient has remained afebrile, leukocytosis resolved, chest x-ray revealed pulmonary edema but no evidence of pneumonia. She is encouraged to follow a low-sodium diet and use her cpap at night and with daytime naps. Time Attestation Discharge Coordination Time (in mins): 35 Quality: Safe Use of Opioids Does Pt have an Active Cancer Diagnosis on the Problem List?: No Quality: Stroke Does the patient have a stroke diagnosis?: No Physical Exam Vital Signs: Vital Signs: Last Vital Signs Temp 98.2 F 06/20/24 07:19 Pulse 66 06/20/24 07:19 Resp 16 06/20/24 07:19 BP 161/55 H 06/20/24 07:19 Pulse Ox 93 06/20/24 07:19 O2 Del Method Nasal Cannula 06/20/24 07:19 O2 Flow Rate 3 06/20/24 07:19 FiO2 28 06/18/24 07:16 BMI result Body Mass Index 70.5 Const: General: cooperative, no acute distress, alert and awake Nutritional Appearance: obese Orientation/consciousness: patient oriented x3 Resp: Other: scattered rhonchi Effort & Inspection: normal respiratory effort, able to speak in complete sentences and Actively coughing Cardio: Rate: regular rate GI: Inspection: No distended and Yes obesity Palpation (GI): Soft to palpation Neuro: General: patient oriented x3, moves all extremities and CN's II-XI intact bilaterally Extrem: General: Yes no pedal edema DS: Data Data Completed and Pending Completed studies during hospitalization [Text1]: Procedures Assistance with Respiratory Ventilation, Less than 24 Consecutive Hours, Continuous Positive Airway Pressure (05/21/24) Insertion of Endotracheal Airway into Trachea, Via Natural or Artificial Opening (11/18/21) Insertion of Infusion Device into Superior Vena Cava, Percutaneous Approach (11/18/21) Introduction of Vasopressor into Peripheral Vein, Percutaneous Approach (11/18/21) Respiratory Ventilation, 24-96 Consecutive Hours (11/18/21) Ultrasonography of Superior Vena Cava, Guidance (11/18/21) Labs on day of discharge: Laboratory Results - last 24 hr 06/19/24 06/19/24 06/19/24 11:25 16:13 20:26 POC Glucose 187 H 184 H 136 H 06/20/24 07:18 POC Glucose 110 Preliminary micro results at discharge 06/16/24 22:24 Blood Culture - Preliminary Blood - Venous No growth after 48 hours. 06/16/24 22:20 Blood Culture - Preliminary Blood - Venous No growth after 48 hours. Discharge Plan Discharge Patient Disposition: [facility] Discharge Diagnosis: Acute on chronic respiratory failure with hypoxia and hypercarbia UTI Referrals: [facility] [Outside] - 1 Week Tita Bal MD [Primary Care Provider] - 1 Week Discharge Medications: New cefuroxime axetil 250 mg Tablet 250 mg PO Q12H 3 Days Qty: 6 0RF dextromethorphan-guaifenesin 10-100 mg/5 mL Syrup 10 ml PO Q6H PRN (Reason: Cough) Qty: 237 0RF Continued furosemide 40 mg Tablet 40 mg PO DAILY Qty: 30 0RF Protocol: Hold for SBP< HOLD for SBP < : 90 potassium chloride 10 mEq Tablet Extended Release 10 meq PO DAILY Culturelle 10 billion cell Capsule 1 cap PO BID bupropion HCl 150 mg tablet extended release 24 hr 150 mg PO DAILY Rx Instructions: take with 300mg; tdd 450mg Fleet Enema 19-7 gram/118 mL Enema 118 ml MS DAILY PRN (Reason: Constipation) Rx Instructions: (STEP 3) IF NO BOWEL MOVEMENT 8 HOURS AFTER BISACODYL atorvastatin 80 mg Tablet 80 mg PO BEDTIME sennosides [senna] 8.6 mg Tablet 17.2 mg PO BEDTIME tizanidine 4 mg Tablet 4 mg PO BEDTIME PRN (Reason: Muscle Spasm) sertraline 100 mg Tablet 200 mg PO DAILY melatonin 3 mg Tablet 3 mg PO BEDTIME ferrous sulfate 325 mg (65 mg iron) Tablet 325 mg PO DAILY insulin lispro 100 unit/mL Insulin Pen See Protocol SUBCUT QIDACHS Protocol: Insulin Correction Scale Less than or equal to 110 ---- Give (units): 0 111 to 150 Give (units): 0 151 to 200 Give (units): 0 201 to 250 Give (units): 4 251 to 300 Give (units): 6 301 to 350 Give (units): 8 Greater than 350 Give (units): 10 Call MD if Blood Glucose > : 350 Rx Instructions: SLIDING SCALE IF BLOOD GLUCOSE GREATER THAN 400, GIVE 12 UNITS AND NOTIFY MD amlodipine 5 mg Tablet 5 mg PO DAILY 30 Days Qty: 30 0RF Protocol: Hold for SBP< HOLD for SBP < : 90 aspirin 81 mg Tablet,Chewable 81 mg PO DAILY acetazolamide 250 mg Tablet 500 mg PO BID Qty: 60 0RF losartan 25 mg tablet 25 mg PO DAILY cholecalciferol (vitamin D3) 25 mcg (1,000 unit) Tablet 25 mcg PO DAILY olopatadine 0.2 % Drops 1 drp OPHTHALMIC (EYE) TID Rx Instructions: both eyes megestrol 400 mg/10 mL (40 mg/mL) suspension 400 mg PO TID insulin glargine [Lantus U-100 Insulin] 100 unit/mL solution 25 unit subcut DAILY insulin glargine [Lantus U-100 Insulin] 100 unit/mL Solution 30 unit subcut BEDTIME Qty: 10 0RF acetaminophen 650 mg Tablet Extended Release 650 mg PO Q4H PRN (Reason: General Discomfort) nystatin 100,000 unit/gram Powder 1 appl topical TID Qty: 30 0RF Protocol: Apply to: Apply to: abd folds Rx Instructions: to abdominal folds for fungal rash albuterol sulfate 2.5 mg /3 mL (0.083 %) Solution For Nebulization 2.5 mg inhalation Q4H PRN (Reason: Shortness Of Breath/Wheezing) Qty: 90 0RF metformin 500 mg tablet 500 mg PO BID Ozempic 0.25 mg or 0.5 mg (2 mg/3 mL) pen injector 0.5 mg subcut WE magnesium hydroxide [Milk of Magnesia] 400 mg/5 mL Suspension 30 ml PO DAILY PRN (Reason: Constipation) Rx Instructions: (step 1) If no bowel movement for 3 days. spironolactone 25 mg Tablet 25 mg PO DAILY Qty: 30 0RF Protocol: Hold for SBP< HOLD for SBP < : 90 magnesium citrate Solution 300 ml PO DAILY PRN (Reason: Constipation) Patient Comments: If no bowel movement in 12 hours after polyethylene glycol 3350 [Miralax] 17 gram/dose Powder 17 g PO DAILY PRN (Reason: Constipation) Jardiance 25 mg tablet 25 mg PO DAILY fluticasone propion-salmeterol 113-14 mcg/actuation aerosol powdr breath activated 1 inh inhalation DAILY Rx Instructions: Rinse mouth with water after use and spit out. modafinil [Provigil] 100 mg Tablet 100 mg PO DAILY Qty: 30 0RF ipratropium-albuterol 0.5 mg-3 mg(2.5 mg base)/3 mL solution for nebulization 3 ml INHALATION TID bisacodyl 10 mg suppository 10 mg MS DAILY PRN (Reason: Constipation, No results from MOM ) Rx Instructions: GIVE IF NO RESULT FROM MILK OF JAYY cyanocobalamin (vitamin B-12) 1,000 mcg capsule 1,000 mcg PO DAILY bupropion HCl 300 mg tablet extended release 24 hr 300 mg PO DAILY Rx Instructions: take with 150mg dose; tdd 450mg Activity on Discharge: As tolerated Stand Alone Forms: Patient Portal Discharge page Print Language: [place]i Care Plan Goals: see below Health Concerns: Acute on chronic respiratory failure with hypoxia and hypercarbia Acute on chronic diastolic CHF UTI Plan of Treatment: Complete 3 more days of oral Ceftin for UTI Use CPAP at night and while taking naps Recommend low-sodium diet and diabetic restriction Assessment: see discharge summary
--- NOTE | 2024-06-20 11:13 | MHC.CM.PN ---
Patient has been medically cleared for dc today, to return to LTC @ [facility]. CM spoke with RN/Najma @ [facility] (no response in [facility]) @ [phone], who approved Patient returning today at 1:30 PM. [facility] has been booked for 1:30PM. CM left a detailed message for Son/HCP/Miah, informing him of the dc plan and original IMM will be mailed certified letter to him at [address] [place] [address] in [place] and a copy has been placed on the chart.
[2024-06-20 11:27] VITALS: BP 161/55
[2024-06-20] MEDS: Losartan Potassium 25 MG TABLET PO (11:27)
[2024-06-20] MEDS: Insulin Lispro 100 UNIT/ML 3 ML VIAL SUBCUT (11:27)
[2024-06-20 11:33] LABS: Glucose, Whole Blood 161 mg/dL (60-115)
[2024-06-20 12:00] VITALS: BP 140/82; PULSE 80; RESP 18; TEMP 37.1; O2SAT 93
== END 2024-06-20 14:02 | DRG 689 ==
LOC: HO.ED 23:23 → HO.EDOVER 06-17 01:35 → HO.ICU 06-17 01:40 → HO.IMC 06-17 16:17
PROVIDERS: Internal Medicine Pulmonary Disease; Admitting Provider Registered Nurse Community Health; Emergency Provider Emergency Medicine; PCP Internal Medicine; Visit Provider Physician Assistant Medical
DX: N39.0 Urinary tract infection, site not specified (principal); G92.8 Other toxic encephalopathy; I50.33 Acute on chronic diastolic (congestive) heart failure; J96.21 Acute and chronic respiratory failure with hypoxia; J96.22 Acute and chronic respiratory failure with hypercapnia; I42.2 Other hypertrophic cardiomyopathy; E66.2 Morbid (severe) obesity with alveolar hypoventilation; Z68.45 Body mass index [BMI] 70 or greater, adult; I44.2 Atrioventricular block, complete; I11.0 Hypertensive heart disease with heart failure; J44.9 Chronic obstructive pulmonary disease, unspecified; B96.20 Unspecified Escherichia coli [E. coli] as the cause of diseases classified elsewhere; E78.5 Hyperlipidemia, unspecified; Z20.822 Contact with and (suspected) exposure to COVID-19; Z71.3 Dietary counseling and surveillance; Z99.81 Dependence on supplemental oxygen; Z87.891 Personal history of nicotine dependence; Z79.4 Long term (current) use of insulin; Z95.0 Presence of cardiac pacemaker; Z79.51 Long term (current) use of inhaled steroids; Z79.82 Long term (current) use of aspirin; Z79.84 Long term (current) use of oral hypoglycemic drugs; Z79.899 Other long term (current) drug therapy
CPT/HCPCS: 0241U; 36415; 71045; 80048; 80076; 81001; 82040; 82803; 82947; 83605; 83735; 83880; 84100; 84145; 84484; 85007; 85025; 85027; 85610; 86140; 87040; 87086; 87088; 87186; 93005; 94640; 94660; 99285; C1758; J1120; J1650; J1940; J2185; J2919; J3475

== ENCOUNTER → 2024-06-17 01:20 | Outpatient (BNV) | payer MEDICARE, MEDICAID, OTHER, SELFPAY | PROVIDERS: Admitting Provider Registered Nurse Community Health; Emergency Provider Emergency Medicine; PCP Internal Medicine; Visit Provider Registered Nurse Community Health | DX: J96.01 Acute respiratory failure with hypoxia (principal); J96.02 Acute respiratory failure with hypercapnia; N39.0 Urinary tract infection, site not specified; J81.1 Chronic pulmonary edema | CPT/HCPCS: 99291 ==

== ENCOUNTER → 2024-06-17 01:20 | Outpatient (BNV) | payer MEDICARE, MEDICAID, OTHER, SELFPAY | PROVIDERS: Admitting Provider Registered Nurse Community Health; Emergency Provider Emergency Medicine; PCP Internal Medicine; Visit Provider Physician Assistant Medical | DX: J96.21 Acute and chronic respiratory failure with hypoxia (principal); J96.22 Acute and chronic respiratory failure with hypercapnia | CPT/HCPCS: 99232; 99233; 99239; 99499 ==

== ENCOUNTER 2024-06-24 12:30 | Inpatient (IN) | payer MEDICARE, MEDICAID, OTHER, SELFPAY ==
[2024-06-24] VITALS (12 sets, daily range): BP systolic 122–167; BP diastolic 66–75; PULSE 75–96; RESP 17–32; TEMP 36.5–36.8; O2SAT 90–97; BMI 39.7
--- NOTE | ~2024-06-24 | XR_ITS ---
EXAMINATION: XR CHEST CLINICAL INFORMATION: Dyspnea. COMPARISON: Chest radiograph dated June 16, 2024. TECHNIQUE: Frontal view of the chest was obtained. FINDINGS: There are low lung volumes. The left pectoral cardiac device leads are unchanged in position. The heart is enlarged. There is no consolidation within the right lung. There is a hazy opacity at the left lung base laterally for which infection cannot be excluded. There may be a small left pleural effusion. No pneumothorax. No acute osseous abnormality. There is a partially visualized left shoulder prosthesis. XR/XR chest 1V IMPRESSION: Low lung volumes limits examination. Cardiomegaly. There is a hazy opacity at the left lung base laterally for which infection cannot be excluded. There may be a small left pleural effusion. Electronically signed by: Good Ruano DO 06/24/2024 03:16 PM EDT
--- NOTE | 2024-06-24 12:38 | ECG_ITS ---
Test Reason : SOB Blood Pressure : / mmHG Vent. Rate : 083 BPM Atrial Rate : 083 BPM P-R Int : 174 ms QRS Dur : 176 ms QT Int : 434 ms P-R-T Axes : 030 -81 061 degrees QTc Int : 509 ms Atrial-sensed ventricular-paced rhythm Abnormal ECG When compared with ECG of 16-JUN-2024 22:02, No significant change was found Referred By: Magdalena Gray Electronically Signed By:MAREN VDIALES MD
--- NOTE | 2024-06-24 12:58 | PC.NURSE ---
Attempt x2 by this RN to gain IV access. Unable, and pt. becoming increasingly agitated. Vince Gray, DO aware and is attempting US-guided IV at this time.
[2024-06-24] MEDS: Albuterol Sulfate 7.5 MG, Albuterol/Iprat 2.5/0.5MG 3 ML 3 ML INHALE (13:00)
--- NOTE | 2024-06-24 13:10 | PC.NURSE ---
20G to LAC placed via ultrasound-guidance per Vince Gray DO.
--- NOTE | 2024-06-24 13:13 | ED_ITS ---
HPI - SOB/Dyspnea General Chief Complaint: Dyspnea Stated Complaint: DIFF BREATHING,76% 3LPM,CPAP, FROM SNF PER EMS Time Seen by Provider: 06/24/24 12:31 Source: patient, EMS and old records reviewed Mode of arrival: EMS Limitations: other (poor historian) History of Present Illness ED Provider: ENZO HPI Narrative: 63 yo female with PMH of COPD on 3L NC, chronic respiratory failure, obesity hypoventilation syndrome, IDDM, CHF preserved EF, heart block with PPM, morbidy obesity, mood disorder, ESBL + UTI just seen and admitted here for CHF, resp failure requiring NIPPV, UTI E. Coli and providencia S to ceftriaxone sent home 06/21 on ceftin back to [facility] here today with c/o feeling crappy. Short of breath, weak, tired and not well. She has to cough but nothing comes up. EMS notes staff had her on Bipap given sats in 70s at facility they used CPAP she came up to 90s. Patient denies chest pain. She states she is tired and doesn't feel well. MD elicited complaint: shortness of breath Pertinent past history: COPD, asthma and congestive heart failure Onset (ago): day(s) (2 sick again after 2 days) Context: recent illness Timing: progressively worsening Severity: moderate Exacerbating factors: lying flat Relieving factors: oxygen and upright position Known history of: COPD, asthma and congestive heart failure Associated symptoms: cough Treatment prior to arrival: oxygen and NIPPV Related Data Home Medications ?Medication ?Instructions ?Recorded ?Confirmed atorvastatin 80 mg tablet 80 mg PO BEDTIME 11/18/21 06/17/24 ferrous sulfate 325 mg (65 mg 325 mg PO DAILY 11/18/21 06/17/24 iron) tablet insulin lispro 100 unit/mL See Protocol subcut QIDACHS 11/18/21 06/17/24 subcutaneous pen melatonin 3 mg tablet 3 mg PO BEDTIME 11/18/21 06/17/24 sennosides 8.6 mg tablet (senna) 17.2 mg PO BEDTIME 11/18/21 06/17/24 sertraline 100 mg tablet 200 mg PO DAILY 11/18/21 06/17/24 tizanidine 4 mg tablet 4 mg PO BEDTIME PRN Muscle Spasm 11/18/21 06/17/24 aspirin 81 mg chewable tablet 81 mg PO DAILY 01/05/22 06/17/24 bupropion HCl 300 mg 24 hr tablet, 300 mg PO DAILY 04/09/22 06/17/24 extended release Lactobacillus rhamnosus GG 10 1 cap PO BID 10/09/22 06/17/24 billion cell capsule (Culturelle) bupropion HCl 150 mg 24 hr tablet, 150 mg PO DAILY 10/09/22 06/17/24 extended release potassium chloride 10 mEq 10 meq PO DAILY 10/09/22 06/17/24 tablet,extended release bisacodyl 10 mg rectal suppository 10 mg [place] DAILY PRN Constipation, 10/21/22 06/17/24 No results from [facility] sodium phosphates 19 gram-7 118 ml [place] DAILY PRN Constipation 11/09/22 06/17/24 gram/118 mL enema (Fleet Enema) metformin 500 mg tablet 500 mg PO BID 12/27/22 06/17/24 semaglutide 0.25 mg or 0.5 mg (2 0.5 mg subcut WE 12/27/22 06/17/24 mg/3 mL) subcutaneous pen injector (Ozempic) cholecalciferol (vitamin D3) 25 25 mcg PO DAILY 04/04/23 06/17/24 mcg (1,000 unit) tablet insulin glargine 100 unit/mL 25 unit subcut DAILY 04/04/23 06/17/24 subcutaneous solution (Lantus U-100 Insulin) losartan 25 mg tablet 25 mg PO DAILY 04/04/23 06/17/24 megestrol 400 mg/10 mL (40 mg/mL) 400 mg PO TID 04/04/23 06/17/24 oral suspension olopatadine 0.2 % eye drops 1 drp ophthalmic (eye) TID 04/04/23 06/17/24 cyanocobalamin (vitamin B-12) 1,000 mcg PO DAILY 04/21/23 06/17/24 1,000 mcg capsule magnesium hydroxide 400 mg/5 mL 30 ml PO DAILY PRN Constipation 10/02/23 06/17/24 oral suspension (Milk of Magnesia) empagliflozin 25 mg tablet 25 mg PO DAILY 02/16/24 06/17/24 (Jardiance) fluticasone 113 mcg-salmeterol 14 1 inh inhalation DAILY 02/16/24 06/17/24 mcg/actuation breath activated powdr magnesium citrate 300 ml PO DAILY PRN Constipation 02/16/24 06/17/24 polyethylene glycol 3350 17 17 g PO DAILY PRN Constipation 02/16/24 06/17/24 gram/dose oral powder (Miralax) acetaminophen 650 mg 650 mg PO Q4H PRN General 05/21/24 06/17/24 tablet,extended release Discomfort ipratropium 0.5 mg-albuterol 3 mg 3 ml inhalation TID wheezing 06/17/24 06/17/24 (2.5 mg base)/3 mL nebulization soln Previous Rx's ?Medication ?Instructions ?Recorded amlodipine 5 mg tablet 5 mg PO DAILY 30 days #30 tabs 11/26/21 furosemide 40 mg tablet 40 mg PO DAILY #30 tabs 04/05/22 acetazolamide 250 mg tablet 500 mg (2 x 250 mg) PO BID #60 tabs 01/06/23 spironolactone 25 mg tablet 25 mg PO DAILY #30 tabs 11/01/23 modafinil 100 mg tablet (Provigil) 100 mg PO DAILY #30 tabs 02/18/24 insulin glargine 100 unit/mL 30 unit (0.3 mL) subcut BEDTIME 03/29/24 subcutaneous solution (Lantus #10 mL U-100 Insulin) albuterol sulfate 2.5 mg/3 mL 2.5 mg (3 mL) inhalation Q4H PRN 05/23/24 (0.083 %) solution for nebulization Shortness Of Breath/Wheezing #90 mL nystatin 100,000 unit/gram topical 1 appl topical TID #30 grams 05/23/24 powder cefuroxime axetil 250 mg tablet 250 mg PO Q12H 3 days #6 tabs 06/20/24 dextromethorphan-guaifenesin 10 10 ml PO Q6H PRN Cough #237 mL 06/20/24 mg-100 mg/5 mL oral syrup Allergies Allergy/AdvReac Type Severity Reaction Status Date / Time latex Allergy Unknown Unknown Verified 06/24/24 12:53 adhesive tape AdvReac Unknown Unknown Verified 06/24/24 12:53 ibuprofen AdvReac Unknown Unknown Verified 06/24/24 12:53 Review of Systems 2 Review of Systems: Constitutional : No Fever, pos Chills, pos Fatigue ENT/Mouth : No sore throat, No Rhinorrhea Eyes: No Eye Pain, No Swelling, No Redness Cardiovascular : No Chest Pain, pos SOB, No Dyspnea on Exertion Respiratory : No Cough, No Sputum Gastrointestinal : No Nausea, No Vomiting, No Diarrhea, No abdominal Pain Genitourinary : No Dysuria, No Urinary Frequency, No Hematuria, Musculoskeletal : No joint pain, No Myalgias, No Joint Swelling Skin : No Skin Lesions, No rash Neuro : No Weakness, No Numbness, No Dizziness, no Headache Psych : No Anxiety/Panic, No Depression All other systems reviewed and are negative [facility] Past Medical History Attestation statement: The following information was validated with the patient. Source: old records reviewed Medical History ESBL (extended spectrum beta-lactamase) producing bacteria infection Dermatitis, unspecified Urinary tract infection due to ESBL Klebsiella Pressure injury of deep tissue of right heel Acute and chronic respiratory failure with hypercapnia Hypoventilation associated with obesity COPD (chronic obstructive pulmonary disease) Obesity hypoventilation syndrome Diabetes mellitus Acute and chronic respiratory failure with hypercapnia Morbid obesity Pressure injury of deep tissue of buttock Sepsis Morbid obesity with BMI of 50.0-59.9, adult Acute and chronic respiratory failure Pressure ulcer, stage II, skin breakdown Hypertrophic nonobstructive cardiomyopathy Presence of permanent cardiac pacemaker Acute on chronic respiratory failure with hypoxia and hypercapnia Metabolic encephalopathy Urinary tract infection due to ESBL Klebsiella Respiratory failure Presence of permanent cardiac pacemaker Sick sinus syndrome Morbid obesity Heart block AV third degree PAD (peripheral artery disease) Diabetic ulcer of foot associated with diabetes mellitus due to underlying condition, with fat layer exposed Atelectasis of both lungs Respiratory failure with hypoxia and hypercapnia Hypoventilation associated with obesity syndrome SMILEY (obstructive sleep apnea) Morbid obesity Pulmonary embolism CHF (congestive heart failure) Clostridium difficile infection Hypertension Diabetes mellitus, type 2 Depression Arthritis Anemia Surgical History History of total knee replacement Social History Social History Household Members: None Housing: [facility] Housing Other:: Came from [facility] Are you a primary child care lead teacher to a significant other at home: No Do you presently have visiting nurse or other home services: No Unable to assess alcohol history related to: Unknown Alcohol intake: former Patient Tobacco Use Status: Former Tobacco user Tobacco use type: Cigarette Cigarette Packs Per Day: 20 Cigarettes Per Day: 400.0 Years Smoked: 20 e-Cigarette/Vaping Use: Never Used Second Hand Smoke Exposure: No Substance Use Type: Unknown Advance Directives: Yes Advance Directives on File: Yes Advance Directives Date on File: 01/07/23 Do you have a plan to hurt others: No Plan service: No Current occupational status: disabled Physical Exam 2 Vital Signs: Vital Signs: Last Vital Signs Temp 98.3 F 06/24/24 12:58 Pulse 75 06/24/24 13:54 Resp 18 06/24/24 15:00 BP 156/75 H 06/24/24 13:54 Pulse Ox 90 L 06/24/24 13:54 O2 Del Method Oxymask 06/24/24 13:54 O2 Flow Rate 4 06/24/24 13:54 BMI result Body Mass Index 39.7 Appearance: Alert. Oriented X3. mild acute distress. Eyes: Pupils equal, round and reactive to light. ENT: Pharynx normal. Neck: Normal inspection. Neck supple. CVS: Normal heart rate and rhythm. Pulses normal. Respiratory: mild respiratory distress - tachypneic and labored. Breath sounds diminished with rales Abdomen: Soft and nontender. obese Skin: Skin warm and dry. Normal skin color. Normal skin turgor. Extremities: 1+ symmetric lower extremity edema. No calf ttp Neuro: Oriented X 3. No motor deficit. No sensory deficit. Course Course Course Narrative: off bipap 145pm by 235pm she was asleep and on her 5L oxymask she fell asleep and desaturated she was placed back on bipap - RT and RN have to keep going into the room to monitor the patient and remind her when she naps she need her Bipap. Patient does not like Bipap. Reevaluation(s) Reevaluation #1: Dr. Duncan wants to try high flow on patient RT aware 345pm Medications Administered Discontinued Medications Generic Name Dose Route Start Last Admin Trade Name Freq PRN Reason Stop Dose Admin Albuterol Sulfate 7.5 mg/ 0 mg 06/24/24 12:49 06/24/24 13:00 Albuterol/Ipratropium 3 ml INHALE 06/24/24 12:50 1 each ONCE ONE Administration Furosemide 40 mg 06/24/24 12:41 06/24/24 13:49 Furosemide 40 Mg/4 Ml Vial IVPUSH 06/24/24 12:42 40 mg STAT STA Administration Protocol Cefepime HCl 1 gm/ Sodium 50 mls @ 100 mls/hr 06/24/24 13:13 06/24/24 14:24 Chloride IV 06/24/24 13:42 Infused ONCE ONE Infusion Methylprednisolone Sodium Succinate 60 mg 06/24/24 12:53 06/24/24 13:49 Methylprednisolone Sod Succ 125 Mg/2 Ml Vial IVPUSH 06/24/24 12:54 60 mg ONCE ONE Administration Medical Decision Making Medical Decision Making [facility] Narrative: 63 yo female with PMH of COPD on 3L NC, chronic respiratory failure, obesity hypoventilation syndrome, IDDM, CHF preserved EF, heart block with PPM, morbidy obesity, mood disorder, ESBL + UTI here not feeling good again in need of BIPAP at this time will obtain labs, start on cefepime given recent UTI, IV steroids, nebs and magnesium. Possible CHF, pneumonia, UTI. She denies chest pain to suggest VTE Differential Diagnosis Differential Diagnoses: The differential diagnosis associated with the presentation includes copd, uti, chronic resp failure Admission/Observation Consideration of admission/observation: Escalation of care including admission/observation considered hospitalist to admit ICU doctor has seen patient - try high flow she is currently on high flow doing well RT aware patient mentating well talking to her did not order vanco given CRP lower than baseline Lab Data [facility] Lab Attestation statement: I reviewed the patient's lab results. 06/24/24 13:19 06/24/24 13:19 Labs: Lab Results 06/24/24 06/24/24 06/24/24 Range/Units 13:16 13:19 13:26 WBC 8.2 (4.8-10.8) X10*3/uL RBC 4.18 L (4.20-5.50) X10*6/uL Hgb 11.9 L (12.0-16.0) g/dl Hct 40.5 (37.0-47.0) % MCV 96.9 (80.0-98.0) fL MCH 28.5 (27.0-33.0) pg MCHC 29.4 L (31.0-35.0) g/dl RDW 15.3 (11.0-16.0) % Plt Count 269 D (160-400) X10*3/uL MPV 9.9 (9.4-12.3) fL Immature Gran % (Auto) 0.7 H (0.0-0.4) % Neut % (Auto) 68.3 (45-73) % Lymph % (Auto) 22.8 (20-40) % Pickett % (Auto) 6.0 (2-11) % Eos % (Auto) 1.8 (0-4) % Baso % (Auto) 0.4 (0-2) % Lymph # (Auto) 1.9 (1.2-4.9) X10*3/uL [place]ett # (Auto) 0.5 (0.1-1.2) X10*3/uL Eos # (Auto) 0.2 (0.0-0.4) X10*3/uL Baso # (Auto) 0.0 (0.0-0.2) X10*3/uL Abs Immat Gran (auto) 0.06 H (0.00-0.03) X10*3/uL Absolute Neuts (auto) 5.6 (2.0-8.3) x10*3/uL Absolute Nucleated RBC 0.030 H (0.0-0.012) X10*3/uL Nucleated RBC % (auto) 0.4 H (0.0-0.2) /100WBC PT 11.7 (10.9-12.4) SEC INR 1.0 (0.9-1.1) VBG pH 7.33 (7.32-7.43) VBG pCO2 66 mmHg VBG pO2 67 mmHg VBG HCO3 35 H (22-26) mmol/L VBG O2 Saturation 95.0 % VBG Base Excess 7.7 mmol/L Sodium 143 (135-145) mmol/L Potassium 4.1 (3.3-5.1) mmol/L Chloride 102 (96-108) mmol/L Carbon Dioxide 36 H (22-29) mmol/L Anion Gap 9 L (12-20) BUN 19 H (9-16) mg/dL Creatinine 0.77 (0.5-1.4) mg/dL Estim Creat Clear Calc 96.6 Estimated GFR > 60 Random Glucose 123 H (60-115) mg/dL Lactic Acid 0.9 (0.5-2.0) mmol/L Calcium 9.5 D (8.4-10.2) mg/dL Magnesium 2.0 (1.6-2.6) mg/dL Total Bilirubin 0.3 (0.0-1.0) mg/dL Direct Bilirubin 0.1 (0.0-0.5) mg/dL AST 9 (5-31) U/L ALT 13 (0-31) U/L Alkaline Phosphatase 78 (39-117) U/L Troponin I High Sens 16.0 (<3.5-17.0) ng/L C-Reactive Protein 1.46 H (< or = 0.50) mg/dL B-Natriuretic Peptide 50 (<100) pg/mL Total Protein 6.7 (6.5-8.0) g/dL Albumin 3.6 (3.5-5.0) g/dL Procalcitonin 0.07 ng/mL Independent Interpretation I performed an independent interpretation of an: EKG and Plain X-Ray (left lower lobe opacity/effusion) Interpretation: Rate: 83 Rhythm: paced [place]: left Normal P waves. Normal ARYA. wide QRS complex. ST T wave : T waves tall anteriorly no FRANSISCO qTC:509 prior studies: no change from priors The study has been interpreted contemporaneously by me. . Radiology Impression Discussion of test interpretation with radiology: I have reviewed the radiologist's reading. Independent Historian Clinical information obtained from an independent historian. History obtained from or confirmed by: EMS Procedures EJ/Peripheral Line Arm L: Time Out Performed: Yes Skin Cleansed in Sterile Fashion: Yes Size (gauge): 20 IV Secured and Dressing Applied: Yes Patient Tolerated Procedure: well and no complications Additional Comments: US guided Critical Care Time Critical Care Time Critical Care Time: Yes Total Critical Care Time: 60 Attestation: repeat assessments, NIPPV, consult, disccussion with family, review of records I attest to this time spent taking care of the patient Discharge Plan Discharge Clinical Impression: Acute and chronic respiratory failure, Pleural effusion, left Patient Disposition: Admitted As Inpatient Print Language: Singaporean
[2024-06-24 13:25] LABS: MANUAL DIFF FLAG NO
[2024-06-24 13:27] LABS: Basophils Percent Auto 0.4 % (0-2); Eosinophils Absolute Auto 0.2 X10*3/uL (0.0-0.4); Eosinophils Percent Auto 1.8 % (0-4); Hematocrit 40.5 % (37.0-47.0); Hemoglobin 11.9 g/dl (12.0-16.0); Imm Gran Abs Auto 0.06 X10*3/uL (0.00-0.03); Imm Gran Pct Auto 0.7 % (0.0-0.4); Lymphocytes Absolute Auto 1.9 X10*3/uL (1.2-4.9); Lymphocytes Percent Auto 22.8 % (20-40); Mean Corpuscular HGB Conc 29.4 g/dl (31.0-35.0); Mean Corpuscular Hemoglobin 28.5 pg (27.0-33.0); Mean Corpuscular Volume 96.9 fL (80.0-98.0); Mean Platelet Volume 9.9 fL (9.4-12.3); Monocytes Absolute Auto 0.5 X10*3/uL (0.1-1.2); NRBC Pct Auto 0.4 /100WBC (0.0-0.2); Neutrophils Absolute Auto 5.6 x10*3/uL (2.0-8.3); Neutrophils Percent Auto 68.3 % (45-73); Platelet Count 269 X10*3/uL (160-400); Red Blood Count 4.18 X10*6/uL (4.20-5.50); Red Cell Distribution Width 15.3 % (11.0-16.0); White Blood Count 8.2 X10*3/uL (4.8-10.8)
[2024-06-24 13:31] LABS: VBG Base Excess 7.7 mmol/L; VBG HCO3 35 mmol/L (22-26); VBG pCO2 66 mmHg; VBG pH 7.33 (7.32-7.43); VBG pO2 67 mmHg
--- NOTE | 2024-06-24 13:35 | PC.NURSE ---
Pt. requesting pillows under her back. When this RN and electronic test techniciankeegan Ford were changing pt. and repositioning to place pillows under pt.'s back as requested, pt. repeatedly stating that this place is a joke, she has never been cared for by such incompetent folks in her life, and that she needs to get home for 2:30 to get her grandchildren off of the bus.
[2024-06-24 13:37] LABS: Prothrombin Time 11.7 SEC (10.9-12.4)
--- NOTE | 2024-06-24 13:39 | PC.NURSE ---
Pt. stating that staff lost her special orange cup that was given to her by her friend. States that she brought it in herself . This RN and attraction attendant Liliana have not seen this cup and it did not arrive to the ED with her. Pt. is accusing staff of throwing cup away.
[2024-06-24 13:40] LABS: Venous Blood Gas Refer to POC result
[2024-06-24 13:41] LABS: Lactic Acid 0.9 mmol/L (0.5-2.0)
--- NOTE | 2024-06-24 13:41 | PC.NURSE ---
Pt. is refusing second set of blood cultures. Vince Gray, DO aware
--- NOTE | 2024-06-24 13:46 | PC.NURSE ---
Per Vince Gray, , OK to still give ordered IV antibiotics after pt. refused second set of cultures.
[2024-06-24 13:49] LABS: B Type Natriuretic Peptide 50 pg/mL (<100)
[2024-06-24] MEDS: methylPREDNISolone Sod Succ 125 MG/2 ML VIAL 60 MG IVPUSH (13:49)
[2024-06-24] MEDS: Furosemide 40 MG/4 ML VIAL IVPUSH (13:49)
[2024-06-24] MEDS: cefEPime HCl 1 GM in 0.9 % Sodium Chloride 50 ML IV (13:50)
[2024-06-24 13:53] LABS: Alanine Aminotransferase 13 U/L (0-31); Albumin Level 3.6 g/dL (3.5-5.0); Alkaline Phosphatase 78 U/L (39-117); Anion Gap 9 (12-20); Aspartate Amino Transferase 9 U/L (5-31); Bilirubin Direct 0.1 mg/dL (0.0-0.5); Bilirubin Total 0.3 mg/dL (0.0-1.0); Blood Urea Nitrogen 19 mg/dL (9-16); C Reactive Protein 1.46 mg/dL (< or = 0.50); Calcium 9.5 mg/dL (8.4-10.2); Carbon Dioxide 36 mmol/L (22-29); Chloride 102 mmol/L (96-108); Creatinine Clr Calc Pharmacy 96.6; Estimated Glomerular Filt Rate > 60; Glucose Random 123 mg/dL (60-115); Potassium 4.1 mmol/L (3.3-5.1); Sodium 143 mmol/L (135-145); Total Protein 6.7 g/dL (6.5-8.0)
[2024-06-24 14:07] LABS: Procalcitonin 0.07 ng/mL
--- NOTE | 2024-06-24 15:26 | PC.NURSE ---
Incontinence care provided to pt.- full bed change. Purewick applied and in place.
--- NOTE | 2024-06-24 15:40 | PC.NURSE ---
Constantin Duncan MD from ICU came to assess pt. Per MD, he would like to try the pt. on high flow nasal cannula at this time. Respiratory paged.
[2024-06-24] MEDS: Azithromycin 500 MG in 0.9 % Sodium Chloride 250 ML 125 MG IV (16:40)
--- NOTE | 2024-06-24 16:54 | PHA.MEDREC ---
Addendum entered by Yosef Nicole 06/24/24 18:00: reviewed Original Note: Pharmacy Consult ? Medication Reconciliation Pharmacy has completed the medication reconciliation. Utilized list from [facility] to confirm med list.
--- NOTE | 2024-06-24 16:56 | PC.NURSE ---
Pt.'s 20G to LAC fell out. Replaced IV access with a 20G to the L forearm. Tolerated IV insertion well. Good blood return.
--- NOTE | 2024-06-24 17:04 | P.CONCC_ITS ---
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 chamber pacemaker, decubitus ulcer, morbid obesity, mood disorder and ESBL UTI presented to the ED with shortness of breath Review of Systems 2 Constitutional: Constitutional: Reports daytime sleepiness and Reports difficulty sleeping Eyes: Eyes: Denies change in vision and Denies decreased night vision ENT: Denies Normal hearing present and Denies bleeding gums Cardiovascular: Cardiovascular: Denies chest pain, Denies chest pain at rest, Denies Epigastric Pain, Reports dyspnea and Reports dyspnea on exertion Respiratory: Respiratory: Denies chest congestion, Denies cough, Reports dyspnea and Reports dyspnea on exertion Gastrointestinal: Gastrointestinal: Denies abdominal pain and Denies bloating Musculoskeletal: Musculoskeletal: Denies back pain and Denies myalgias Integumentary/Breasts: Skin/Breast: Denies bleeding lesions and Denies breast swelling Neurologic: Denies Normal hearing present and Denies behavioral changes Psychiatric: Psychiatric: Denies behavioral changes and Denies change in appetite PMFSH Past Medical History Medical History ESBL (extended spectrum beta-lactamase) producing bacteria infection Dermatitis, unspecified Urinary tract infection due to ESBL Klebsiella Pressure injury of deep tissue of right heel Acute and chronic respiratory failure with hypercapnia Hypoventilation associated with obesity COPD (chronic obstructive pulmonary disease) Obesity hypoventilation syndrome Diabetes mellitus Acute and chronic respiratory failure with hypercapnia Morbid obesity Pressure injury of deep tissue of buttock Sepsis Morbid obesity with BMI of 50.0-59.9, adult Acute and chronic respiratory failure Pressure ulcer, stage II, skin breakdown Hypertrophic nonobstructive cardiomyopathy Presence of permanent cardiac pacemaker Acute on chronic respiratory failure with hypoxia and hypercapnia Metabolic encephalopathy Urinary tract infection due to ESBL Klebsiella Respiratory failure Presence of permanent cardiac pacemaker Sick sinus syndrome Morbid obesity Heart block AV third degree PAD (peripheral artery disease) Diabetic ulcer of foot associated with diabetes mellitus due to underlying condition, with fat layer exposed Atelectasis of both lungs Respiratory failure with hypoxia and hypercapnia Hypoventilation associated with obesity syndrome SMILEY (obstructive sleep apnea) Morbid obesity Pulmonary embolism CHF (congestive heart failure) Clostridium difficile infection Hypertension Diabetes mellitus, type 2 Depression Arthritis Anemia Surgical History Surgical History History of total knee replacement Social History Social History Household Members: None Housing: Retirement Housing Other:: Came from STR Are you a primary customer care consultant to a significant other at home: No Do you presently have visiting nurse or other home services: No Unable to assess alcohol history related to: Unknown Alcohol intake: former Patient Tobacco Use Status: Former Tobacco user Tobacco use type: Cigarette Cigarette Packs Per Day: 20 Cigarettes Per Day: 400.0 Years Smoked: 20 e-Cigarette/Vaping Use: Never Used Second Hand Smoke Exposure: No Substance Use Type: Unknown Advance Directives: Yes Advance Directives on File: Yes Advance Directives Date on File: 01/07/23 Do you have a plan to hurt others: No Plan service: No Current occupational status: disabled Meds Allergies Allergy/AdvReac Type Severity Reaction Status Date / Time latex Allergy Unknown Unknown Verified 06/24/24 12:53 adhesive tape AdvReac Unknown Unknown Verified 06/24/24 12:53 ibuprofen AdvReac Unknown Unknown Verified 06/24/24 12:53 Active Medications: Current Medications Acetaminophen (Acetaminophen 325 Mg Tablet) 650 mg PO Q6H PRN PRN Reason: Pain, Mild (Pain Scale 1-3), fever or headache Albuterol/Ipratropium (Albuterol/Iprat 2.5/0.5mg 3 Ml Ampul.Neb) 3 ml INHALE Q4H PRN PRN Reason: shortness of breath Calcium Carbonate (Calcium Carbonate 750 Mg Tab.Chew) 750 mg PO Q4H PRN PRN Reason: Heartburn Enoxaparin Sodium (Enoxaparin Sodium 40 Mg/0.4 Ml Syringe) 40 mg SUBCUT Q24H ROSSY Azithromycin 500 mg/ Sodium (Chloride) 250 mls @ 125 mls/hr IV ONCE ONE Stop: 06/24/24 17:49 Last Admin: 06/24/24 16:40 Dose: 125 mls/hr Ceftriaxone Sodium 1 gm/ (Sodium Chloride) 50 mls @ 100 mls/hr IV Q24H ROSSY Doxycycline Hyclate 100 mg/ (Sodium Chloride) 250 mls @ 166.67 mls/hr IV Q12H [facility] Magnesium Hydroxide (Milk Of Magnesia 30 Ml Oral.Susp) 30 ml PO DAILY PRN PRN Reason: Constipation Melatonin (Melatonin 3 Mg Tablet) 6 mg PO BEDTIME PRN PRN Reason: Insomnia Sodium Chloride (0.9 % Sodium Chloride Flush 3 Ml Syringe) 3 ml IVFLUSH QSHIFT [facility] Home Medications ?Medication ?Instructions ?Recorded ?Confirmed ?Last Taken ?Type atorvastatin 80 mg tablet 80 mg PO BEDTIME 11/18/21 06/24/24 Unknown History ferrous sulfate 325 mg (65 mg 325 mg PO DAILY 11/18/21 06/24/24 Unknown History iron) tablet insulin lispro 100 unit/mL See Protocol subcut QIDACHS 11/18/21 06/24/24 Unknown History subcutaneous pen melatonin 3 mg tablet 3 mg PO BEDTIME 11/18/21 06/24/24 Unknown History sennosides 8.6 mg tablet (senna) 17.2 mg PO BEDTIME 11/18/21 06/24/24 Unknown History sertraline 100 mg tablet 200 mg PO DAILY 11/18/21 06/24/24 Unknown History tizanidine 4 mg tablet 4 mg PO BEDTIME PRN Muscle Spasm 11/18/21 06/24/24 Unknown History aspirin 81 mg chewable tablet 81 mg PO DAILY 01/05/22 06/24/24 Unknown History bupropion HCl 300 mg 24 hr tablet, 300 mg PO DAILY 04/09/22 06/24/24 Unknown History extended release Lactobacillus rhamnosus GG 10 1 cap PO BID 10/09/22 06/24/24 Unknown History billion cell capsule (Culturelle) bupropion HCl 150 mg 24 hr tablet, 150 mg PO DAILY 10/09/22 06/24/24 Unknown History extended release potassium chloride 10 mEq 10 meq PO DAILY 10/09/22 06/24/24 Unknown History tablet,extended release bisacodyl 10 mg rectal suppository 10 mg IA DAILY PRN Constipation, 10/21/22 06/24/24 Unknown History No results from [facility] sodium phosphates 19 gram-7 118 ml IA DAILY PRN Constipation 11/09/22 06/24/24 Unknown History gram/118 mL enema (Fleet Enema) metformin 500 mg tablet 500 mg PO BID 12/27/22 06/24/24 Unknown History semaglutide 0.25 mg or 0.5 mg (2 0.5 mg subcut WE 12/27/22 06/24/24 Unknown History mg/3 mL) subcutaneous pen injector (Ozempic) cholecalciferol (vitamin D3) 25 25 mcg PO DAILY 04/04/23 06/24/24 Unknown History mcg (1,000 unit) tablet insulin glargine 100 unit/mL 25 unit subcut DAILY 04/04/23 06/24/24 Unknown History subcutaneous solution (Lantus U-100 Insulin) losartan 25 mg tablet 25 mg PO DAILY 04/04/23 06/24/24 Unknown History megestrol 400 mg/10 mL (40 mg/mL) 400 mg PO TID 04/04/23 06/24/24 Unknown History oral suspension olopatadine 0.2 % eye drops 1 drp ophthalmic (eye) TID 04/04/23 06/24/24 Unknown History cyanocobalamin (vitamin B-12) 1,000 mcg PO DAILY 04/21/23 06/24/24 Unknown History 1,000 mcg capsule magnesium hydroxide 400 mg/5 mL 30 ml PO DAILY PRN Constipation 10/02/23 06/24/24 Unknown History oral suspension (Milk of Magnesia) empagliflozin 25 mg tablet 25 mg PO DAILY 02/16/24 06/24/24 Unknown History (Jardiance) fluticasone 113 mcg-salmeterol 14 1 inh inhalation DAILY 02/16/24 06/24/24 Unknown History mcg/actuation breath activated powdr magnesium citrate 300 ml PO DAILY PRN Constipation 02/16/24 06/24/24 Unknown History polyethylene glycol 3350 17 17 g PO DAILY PRN Constipation 02/16/24 06/24/24 Unknown History gram/dose oral powder (Miralax) acetaminophen 650 mg 650 mg PO Q4H PRN General 05/21/24 06/24/24 Unknown History tablet,extended release Discomfort ipratropium 0.5 mg-albuterol 3 mg 3 ml inhalation TID wheezing 06/17/24 06/24/24 Unknown History (2.5 mg base)/3 mL nebulization soln empagliflozin 10 mg tablet 10 mg PO DAILY 06/24/24 06/24/24 Unknown History (Jardiance) menthol 10 mg lozenges 10 mg mucous membrane Q4H PRN Sore 06/24/24 06/24/24 Unknown History Throat Physical Exam 2 Vital Signs: Vital Signs: Last Vital Signs Temp 98.3 F 06/24/24 12:58 Pulse 75 06/24/24 13:54 Resp 18 06/24/24 15:00 BP 156/75 H 06/24/24 13:54 Pulse Ox 90 L 06/24/24 13:54 O2 Del Method Oxymask 06/24/24 13:54 O2 Flow Rate 4 06/24/24 13:54 BMI result Body Mass Index 39.7 General: ill appearing and tired appearing Nutritional Appearance: well nourished and overweight Eyes: appearance normal, both eyes and all related structures; Alignment and Position: alignment normal and position normal Neck: No lymphadenopathy, no thyromegaly Resp: bilateral air entry equal, air entry present bilaterally no significant wheeze heard Cardio: Regular rate, regular rhythm; Heart sounds: S1 normal heart sound present and S2 normal heart sound present GI: soft, nontender, no guarding, no hepatosplenomegaly : bladder normal to inspection, bladder normal to palpation, no renal angle tenderness Skin: no rashes or lesions noted and elasticity normal Neuro: oriented to person, oriented to place, oriented to time and moves all extremities Neuro: Cranial nerves: No Normal hearing present Results Labs 06/24/24 13:19 06/24/24 13:19 Labs: Short CBC 06/24/24 Range/Units 13:19 WBC 8.2 (4.8-10.8) X10*3/uL Hgb 11.9 L (12.0-16.0) g/dl Hct 40.5 (37.0-47.0) % Plt Count 269 D (160-400) X10*3/uL BMP 06/24/24 13:19 Sodium 143 Potassium 4.1 Chloride 102 Carbon Dioxide 36 H BUN 19 H Creatinine 0.77 Calcium 9.5 D Liver Function 06/24/24 Range/Units 13:19 Total Bilirubin 0.3 (0.0-1.0) mg/dL Direct Bilirubin 0.1 (0.0-0.5) mg/dL AST 9 (5-31) U/L ALT 13 (0-31) U/L Alkaline Phosphatase 78 (39-117) U/L Albumin 3.6 (3.5-5.0) g/dL Assessment and Plan (1) Pleural effusion, left: Status: Acute (2) ESBL (extended spectrum beta-lactamase) producing bacteria infection: Status: Acute (3) Pulmonary edema: Status: Acute (4) Acute UTI: Status: Acute (5) Acute and chronic respiratory failure: Qualifiers: Respiratory failure complication: hypoxia Qualified Code(s): J96.21 - Acute and chronic respiratory failure with hypoxia Status: Acute Plan 63-year-old lady with past medical history of COPD on 3L home O2, respiratory failure with hypercapnia, obesity hypoventilation syndrome, insulin-dependent diabetes, HTN, HLD, HFpEF, Heart block AV third degree with dual chamber pacemaker, decubitus ulcer, morbid obesity, mood disorder and ESBL UTI presented to the ED with acute on chronic hypoxemic respiratory failure; apparently she has a very frequent ED and hospital visits for the same Acute on chronic respiratory failure: Her VBG looks well compensated, possibly her pCO2 is at baseline Chest x-ray shows bilateral lung infiltrates which are new and different when compared to previous x-ray. Changed the patient from BIPAP to high-flow for ease of breathing with which her breathing seems better saturations are very well maintained Please use nighttime BiPAP in the floor Duo nebs around the clock, oral prednisone 40 mg taper Diurese the patient with Lasix 40 mg b.i.d. Appropriate antibiotics with consideration for recent hospitalization Can be managed at floor at this time, please reconsult if clinical status changes. Total time managing care of this patient today: 40 minutes.
--- NOTE | 2024-06-24 17:14 | PM.IMHP ---
History of Present Illness Date of Service: 06/24/24 Attending physician on admission: Gopal Patel Chief Complaint: dyspnea This is a 63-year-old female with history of chronic respiratory failure due to underlying COPD and obesity hypoventilation who was brought to the emergency department from [facility] for shortness of breath and hypoxia. Patient was recently admitted to the hospital for UTI, CHF and respiratory failure requiring rescue BiPAP. She was discharged back to the facility with oral antibiotics. She has reported 2 day history of generalized malaise, primarily dry cough. She denies any fever or chills. No abdominal pain, nausea, vomiting, diarrhea. Chest x-ray on last admission with no evidence of pneumonia, repeat chest x-ray today showing possible left lower lobe infiltrate. She was placed on BiPAP prior to arrival in the emergency department and was titrated off of BiPAP to OxyMask. She then fell asleep and desaturated and was placed back on BiPAP. Patient was evaluated by water pump servicer in the ICU who recommended to try patient off of BiPAP and on high-flow nasal cannula. In the emergency department she received IV Lasix IV cefepime azithromycin and IV Solu-Medrol. Patient is awake and alert at the time of admission he will be admitted for further management of respiratory failure and pneumonia Review of Systems Review of Systems: Yes all other systems are reviewed and are negative Constitutional: Constitutional: Denies chills and Denies fever(s) Cardiovascular: Cardiovascular: Denies chest pain, Denies palpitations and Reports dyspnea Respiratory: Respiratory: Reports cough and Reports dyspnea Endocrine: Endocrine: Denies palpitations [facility] [place] Medical History ESBL (extended spectrum beta-lactamase) producing bacteria infection Dermatitis, unspecified Urinary tract infection due to ESBL Klebsiella Pressure injury of deep tissue of right heel Acute and chronic respiratory failure with hypercapnia Hypoventilation associated with obesity COPD (chronic obstructive pulmonary disease) Obesity hypoventilation syndrome Diabetes mellitus Acute and chronic respiratory failure with hypercapnia Morbid obesity Pressure injury of deep tissue of buttock Sepsis Morbid obesity with BMI of 50.0-59.9, adult Acute and chronic respiratory failure Pressure ulcer, stage II, skin breakdown Hypertrophic nonobstructive cardiomyopathy Presence of permanent cardiac pacemaker Acute on chronic respiratory failure with hypoxia and hypercapnia Metabolic encephalopathy Urinary tract infection due to ESBL Klebsiella Respiratory failure Presence of permanent cardiac pacemaker Sick sinus syndrome Morbid obesity Heart block AV third degree PAD (peripheral artery disease) Diabetic ulcer of foot associated with diabetes mellitus due to underlying condition, with fat layer exposed Atelectasis of both lungs Respiratory failure with hypoxia and hypercapnia Hypoventilation associated with obesity syndrome SMILEY (obstructive sleep apnea) Morbid obesity Pulmonary embolism CHF (congestive heart failure) Clostridium difficile infection Hypertension Diabetes mellitus, type 2 Depression Arthritis Anemia Surgical History History of total knee replacement Social History Household Members: None Housing: Longterm Housing Other:: Came from [facility] Are you a primary customer care assistant to a significant other at home: No Do you presently have visiting nurse or other home services: No Unable to assess alcohol history related to: Unknown Alcohol intake: former Patient Tobacco Use Status: Former Tobacco user Tobacco use type: Cigarette Cigarette Packs Per Day: 20 Cigarettes Per Day: 400.0 Years Smoked: 20 e-Cigarette/Vaping Use: Never Used Second Hand Smoke Exposure: No Substance Use Type: Unknown Advance Directives: Yes Advance Directives on File: Yes Advance Directives Date on File: 01/07/23 Do you have a plan to hurt others: No Plan service: No Current occupational status: disabled Meds Allergies Allergy/AdvReac Type Severity Reaction Status Date / Time latex Allergy Unknown Unknown Verified 06/24/24 12:53 adhesive tape AdvReac Unknown Unknown Verified 06/24/24 12:53 ibuprofen AdvReac Unknown Unknown Verified 06/24/24 12:53 Active Medications: Current Medications Acetaminophen (Acetaminophen 325 Mg Tablet) 650 mg PO Q6H PRN PRN Reason: Pain, Mild (Pain Scale 1-3), fever or headache Calcium Carbonate (Calcium Carbonate 750 Mg Tab.Chew) 750 mg PO Q4H PRN PRN Reason: Heartburn Enoxaparin Sodium (Enoxaparin Sodium 40 Mg/0.4 Ml Syringe) 40 mg SUBCUT Q24H ROSSY Glucose (Glucose Gel 15 Gm Gel..Gram.) 15 gm PO Q15M PRN; Protocol PRN Reason: per Hypoglycemia Standing Ord. Azithromycin 500 mg/ Sodium (Chloride) 250 mls @ 125 mls/hr IV ONCE ONE Stop: 06/24/24 17:49 Last Admin: 06/24/24 16:40 Dose: 125 mls/hr Ceftriaxone Sodium 1 gm/ (Sodium Chloride) 50 mls @ 100 mls/hr IV Q24H ROSSY Doxycycline Hyclate 100 mg/ (Sodium Chloride) 250 mls @ 166.67 mls/hr IV Q12H [facility] Dextrose (D10) 250 mls @ 750 mls/hr IV Q15M PRN; Protocol PRN Reason: per Hypoglycemia Standing Ord. Insulin Human Lispro (Insulin Lispro 100 Unit/Ml 3 Ml Vial) [facility]; Protocol Magnesium Hydroxide (Milk Of Magnesia 30 Ml Oral.Susp) 30 ml PO DAILY PRN PRN Reason: Constipation Melatonin (Melatonin 3 Mg Tablet) 6 mg PO BEDTIME PRN PRN Reason: Insomnia Sodium Chloride (0.9 % Sodium Chloride Flush 3 Ml Syringe) 3 ml IVFLUSH [facility] Home Medications ?Medication ?Instructions ?Recorded ?Confirmed ?Last Taken ?Type atorvastatin 80 mg tablet 80 mg PO BEDTIME 11/18/21 06/24/24 Unknown History ferrous sulfate 325 mg (65 mg 325 mg PO DAILY 11/18/21 06/24/24 Unknown History iron) tablet insulin lispro 100 unit/mL See Protocol subcut QIDACHS 11/18/21 06/24/24 Unknown History subcutaneous pen melatonin 3 mg tablet 3 mg PO BEDTIME 11/18/21 06/24/24 Unknown History sennosides 8.6 mg tablet (senna) 17.2 mg PO BEDTIME 11/18/21 06/24/24 Unknown History sertraline 100 mg tablet 200 mg PO DAILY 11/18/21 06/24/24 Unknown History tizanidine 4 mg tablet 4 mg PO BEDTIME PRN Muscle Spasm 11/18/21 06/24/24 Unknown History aspirin 81 mg chewable tablet 81 mg PO DAILY 01/05/22 06/24/24 Unknown History bupropion HCl 300 mg 24 hr tablet, 300 mg PO DAILY 04/09/22 06/24/24 Unknown History extended release Lactobacillus rhamnosus GG 10 1 cap PO BID 10/09/22 06/24/24 Unknown History billion cell capsule (Culturelle) bupropion HCl 150 mg 24 hr tablet, 150 mg PO DAILY 10/09/22 06/24/24 Unknown History extended release potassium chloride 10 mEq 10 meq PO DAILY 10/09/22 06/24/24 Unknown History tablet,extended release bisacodyl 10 mg rectal suppository 10 mg DC DAILY PRN Constipation, 10/21/22 06/24/24 Unknown History No results from [facility] sodium phosphates 19 gram-7 118 ml DC DAILY PRN Constipation 11/09/22 06/24/24 Unknown History gram/118 mL enema (Fleet Enema) metformin 500 mg tablet 500 mg PO BID 12/27/22 06/24/24 Unknown History semaglutide 0.25 mg or 0.5 mg (2 0.5 mg subcut WE 12/27/22 06/24/24 Unknown History mg/3 mL) subcutaneous pen injector (Ozempic) cholecalciferol (vitamin D3) 25 25 mcg PO DAILY 04/04/23 06/24/24 Unknown History mcg (1,000 unit) tablet insulin glargine 100 unit/mL 25 unit subcut DAILY 04/04/23 06/24/24 Unknown History subcutaneous solution (Lantus U-100 Insulin) losartan 25 mg tablet 25 mg PO DAILY 04/04/23 06/24/24 Unknown History megestrol 400 mg/10 mL (40 mg/mL) 400 mg PO TID 04/04/23 06/24/24 Unknown History oral suspension olopatadine 0.2 % eye drops 1 drp ophthalmic (eye) TID 04/04/23 06/24/24 Unknown History cyanocobalamin (vitamin B-12) 1,000 mcg PO DAILY 04/21/23 06/24/24 Unknown History 1,000 mcg capsule magnesium hydroxide 400 mg/5 mL 30 ml PO DAILY PRN Constipation 10/02/23 06/24/24 Unknown History oral suspension (Milk of Magnesia) empagliflozin 25 mg tablet 25 mg PO DAILY 02/16/24 06/24/24 Unknown History (Jardiance) fluticasone 113 mcg-salmeterol 14 1 inh inhalation DAILY 02/16/24 06/24/24 Unknown History mcg/actuation breath activated powdr magnesium citrate 300 ml PO DAILY PRN Constipation 02/16/24 06/24/24 Unknown History polyethylene glycol 3350 17 17 g PO DAILY PRN Constipation 02/16/24 06/24/24 Unknown History gram/dose oral powder (Miralax) acetaminophen 650 mg 650 mg PO Q4H PRN General 05/21/24 06/24/24 Unknown History tablet,extended release Discomfort ipratropium 0.5 mg-albuterol 3 mg 3 ml inhalation TID wheezing 06/17/24 06/24/24 Unknown History (2.5 mg base)/3 mL nebulization soln empagliflozin 10 mg tablet 10 mg PO DAILY 06/24/24 06/24/24 Unknown History (Jardiance) menthol 10 mg lozenges 10 mg mucous membrane Q4H PRN Sore 06/24/24 06/24/24 Unknown History Throat Physical Exam Vital Signs and Narrative: Vital Signs: Last Vital Signs Temp 98.3 F 06/24/24 12:58 Pulse 75 06/24/24 13:54 Resp 18 06/24/24 15:00 BP 156/75 H 06/24/24 13:54 Pulse Ox 90 L 06/24/24 13:54 O2 Del Method Oxymask 06/24/24 13:54 O2 Flow Rate 4 06/24/24 13:54 BMI result Body Mass Index 39.7 Const: General: comfortable, no acute distress, alert and awake Nutritional Appearance: obese Orientation/consciousness: patient oriented x3 Resp: Effort & Inspection: normal respiratory effort, able to speak in complete sentences, no respiratory distress and no use of accessory muscles Auscultation: no crackles and no wheezes Cardio: Rate: regular rate GI: Inspection: No distended, Yes Abdominal panniculus present and Yes obesity Palpation (GI): Soft to palpation Neuro: General: patient oriented x3, moves all extremities and CN's II-XI intact bilaterally Results Labs 06/24/24 13:19 06/24/24 13:19 Labs: Laboratory Results - last 24 hr 06/24/24 06/24/24 06/24/24 13:16 13:19 13:26 MCV 96.9 MCH 28.5 MCHC 29.4 L RDW 15.3 Plt Count 269 D MPV 9.9 Immature Gran % (Auto) 0.7 H Neut % (Auto) 68.3 Lymph % (Auto) 22.8 Cottle % (Auto) 6.0 Eos % (Auto) 1.8 Baso % (Auto) 0.4 Lymph # (Auto) 1.9 Cottle # (Auto) 0.5 Eos # (Auto) 0.2 Baso # (Auto) 0.0 Abs Immat Gran (auto) 0.06 H Absolute Neuts (auto) 5.6 Absolute Nucleated RBC 0.030 H Nucleated RBC % (auto) 0.4 H PT 11.7 INR 1.0 VBG pH 7.33 VBG pCO2 66 VBG pO2 67 VBG HCO3 35 H VBG O2 Saturation 95.0 VBG Base Excess 7.7 Anion Gap 9 L Estim Creat Clear Calc 96.6 Estimated GFR > 60 Random Glucose 123 H Lactic Acid 0.9 Calcium 9.5 D Magnesium 2.0 Total Bilirubin 0.3 Direct Bilirubin 0.1 AST 9 ALT 13 Alkaline Phosphatase 78 Troponin I High Sens 16.0 C-Reactive Protein 1.46 H B-Natriuretic Peptide 50 Total Protein 6.7 Albumin 3.6 Procalcitonin 0.07 Imaging Radiologist's Impressions: Impressions Chest X-Ray 06/24/24 13:55 IMPRESSION: Low lung volumes limits examination. Cardiomegaly. There is a hazy opacity at the left lung base laterally for which infection cannot be excluded. There may be a small left pleural effusion. Electronically signed by: Good Ruano DO 06/24/2024 03:16 PM EDT RP Assessment and Plan (1) Acute and chronic respiratory failure: Qualifiers: Respiratory failure complication: hypoxia Qualified Code(s): J96.21 - Acute and chronic respiratory failure with hypoxia Status: Acute (2) Pleural effusion, left: Status: Acute Plan THis is a 63-year-old female with a past medical history of morbid obesity, obesity hypoventilation syndrome with CO2 retention, COPD? (on home O2 2-3 L ), diabetes mellitus, diastolic dysfunction,? 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, mood disorder,?diabetes, frequent admissions for respiratory failure who was sent to the emergency department for shortness of breath and hypoxia being admitted for pneumonia Acute on chronic respiratory failure with hypoxia due to pneumonia with underlying obesity hypoventilation, SMILEY, COPD & HFpEF says she is not compliant with bipap which is liking contributing factor as well procalcitonin low, no white count, no fever, likely pneumonia viral but will cover with empiric antibiotics for now Flu, RSV, covid PCR negative; full RPP ordered recommend to wean off high flow due to history of co2 retention, discussed with respiratory continue bipap at night and with naps Acute on chronic HFpEF seen by water pump servicer, rec to treat with IV lasix Continue baseline Aldactone, acetazolamide low sodium diet follow Is&Os DM Hold metformin, Ozempic SSI, POCs ADA diet reduced dose of lantus Hypertension Continue Norvasc, Aldactone, hold losartan for now resume as blood pressure allows Mood continue baseline medications Hyperlipidemia Continue statin Morbid obesity Elevated BMI/body habitus contributing to recurrent respiratory failure DVT prophylaxis/Lovenox Code status - pt wants to be DNR/DNI; present during discussion Ksibwnubwfn-iooh-kkgi care resident of [facility] rehab Due to recurrent respiratory failure patient will likely require 2 midnight stay in the hospital for management of pneumonia and close monitoring of respiratory failure Quality Stroke Does the patient have a stroke diagnosis?: No VTE Prior VTE?: No VTE Risk Level:: Medical - moderate - high VTE Device Contraindication: N/A - Device Ordered VTE Drug Contraindication: N/A - Med Ordered
[2024-06-24] MEDS: Enoxaparin Sodium 40 MG/0.4 ML SYRINGE SUBCUT (17:48)
[2024-06-24 21:00] LABS: Influenza A PCR NEGATIVE (Negative); Influenza B PCR NEGATIVE (Negative); Resp Syncy Virus RNA Qual PCR NEGATIVE (Negative); SARS COV2 PCR INHOUSE NEGATIVE (Negative)
[2024-06-24] MEDS: Atorvastatin Calcium 80 MG TABLET PO (21:26)
[2024-06-24] MEDS: acetaZOLAMIDE 250 MG TABLET 500 MG PO (21:26)
[2024-06-24] MEDS: Sennosides 8.6 MG TABLET 17.2 MG PO (21:27)
[2024-06-24 21:29] LABS: Glucose, Whole Blood 328 mg/dL (60-115)
[2024-06-24] MEDS: guaiFENesin DM 100/10/5 ML 5 ML SYRUP 10 ML PO (21:29)
[2024-06-24] MEDS: Melatonin 3 MG TABLET 6 MG PO (21:30)
[2024-06-24] MEDS: Insulin Lispro 100 UNIT/ML 3 ML VIAL SUBCUT (22:24)
[2024-06-24] MEDS: 0.9 % Sodium Chloride Flush 3 ML SYRINGE IVFLUSH (22:25)
[2024-06-25] VITALS: BP 153/78; PULSE 89; RESP 20; TEMP 37.4; O2SAT 91
[2024-06-25 03:33] VITALS: BP 126/63; PULSE 81; RESP 20; TEMP 37.4; O2SAT 89
[2024-06-25] MEDS: cefTRIAXone sodium 1 GM in 0.9 % Sodium Chloride 50 ML IV (06:15)
[2024-06-25 07:20] LABS: Anion Gap 13 (12-20); Blood Urea Nitrogen 27 mg/dL (9-16); Calcium 9.1 mg/dL (8.4-10.2); Carbon Dioxide 33 mmol/L (22-29); Chloride 101 mmol/L (96-108); Creatinine Clr Calc Pharmacy 87.5; Estimated Glomerular Filt Rate > 60; Glucose Random 183 mg/dL (60-115); Potassium 4.1 mmol/L (3.3-5.1); Sodium 143 mmol/L (135-145)
[2024-06-25 07:21] LABS: Hemoglobin 11.4 g/dl (12.0-16.0); Mean Corpuscular Hemoglobin 28.4 pg (27.0-33.0); Mean Corpuscular Volume 94.5 fL (80.0-98.0); Mean Platelet Volume 10.6 fL (9.4-12.3); Platelet Count 284 X10*3/uL (160-400); Red Blood Count 4.02 X10*6/uL (4.20-5.50); White Blood Count 6.4 X10*3/uL (4.8-10.8)
[2024-06-25] MEDS: Doxycycline Hyclate 100 MG in 0.9 % Sodium Chloride 250 ML 166.67 MG IV ×2 (07:35→18:32)
[2024-06-25] MEDS: 0.9 % Sodium Chloride Flush 3 ML SYRINGE IVFLUSH ×2 (07:36→16:14)
[2024-06-25 07:44] VITALS: BP 128/62; PULSE 82; RESP 18; TEMP 36.6; O2SAT 94
[2024-06-25 07:56] LABS: Glucose, Whole Blood 194 mg/dL (60-115)
[2024-06-25] MEDS: Furosemide 40 MG/4 ML VIAL IVPUSH (08:12)
[2024-06-25] MEDS: modafiniL 100 MG TABLET PO (08:13)
[2024-06-25] MEDS: acetaZOLAMIDE 250 MG TABLET 500 MG PO ×2 (08:13→22:26)
[2024-06-25] MEDS: amLODIPine Besylate 5 MG TABLET PO (08:13)
[2024-06-25] MEDS: Aspirin 81 MG TAB.CHEW PO (08:13)
[2024-06-25] MEDS: buPROPion HCl XL 150 MG TAB.ER.24H PO (08:13)
[2024-06-25] MEDS: predniSONE 20 MG TABLET 40 MG PO (08:13)
[2024-06-25] MEDS: Spironolactone 25 MG TABLET PO (08:14)
[2024-06-25] MEDS: Cholecalciferol (Vitamin D3) 25 MCG TABLET PO (08:14)
[2024-06-25] MEDS: buPROPion HCl XL 300 MG TAB.ER.24H PO (08:14)
[2024-06-25] MEDS: Cyanocobalamin (Vitamin B-12) 1,000 MCG TABLET 1000 MCG PO (08:14)
[2024-06-25] MEDS: Ferrous Sulfate 324 MG TABLET.DR PO (08:14)
[2024-06-25] MEDS: Insulin Lispro 100 UNIT/ML 3 ML VIAL SUBCUT ×4 (08:14→22:25)
[2024-06-25] MEDS: Potassium Chloride ER 10 MEQ TABLET.ER PO (08:14)
[2024-06-25] MEDS: Insulin Glargine,Hum.rec.anlog 100 UNIT/ML 10 ML VIAL 25 UNIT SUBCUT (08:15)
[2024-06-25] MEDS: Sertraline HCL 100 MG TABLET 200 MG PO (08:17)
--- NOTE | 2024-06-25 10:25 | HO.SKINPHOTO ---
Location:sacrum Category:pressure injury Stage:2 Length: Width: Depth: cm Location: Category: Stage: Length: Width: Depth: cm Location: Category: Stage: Length: Width: Depth: cm Location: Category: Stage: Length: Width: Depth: cm Location: Category: Stage: Length: Width: Depth: cm Location: Category: Stage: Length: Width: Depth: cm
[2024-06-25 10:34] LABS: MRSA Nasal PCR NEGATIVE (Negative); SA Nasal PCR POSITIVE (Negative)
[2024-06-25 11:20] VITALS: BP 133/69; PULSE 87; RESP 18; TEMP 36.6; O2SAT 91
[2024-06-25 11:25] LABS: Procalcitonin 0.11 ng/mL
[2024-06-25 11:26] LABS: Adenovirus PCR Not Detected (Not Detect.); Bordetella parapertussis PCR Not Detected (Not Detect.); Bordetella pertussis PCR Not Detected (Not Detect.); Chlamydia pneumoniae PCR Not Detected (Not Detect.); Coronavirus 229E PCR Not Detected (Not Detect.); Coronavirus HKU1 PCR Not Detected (Not Detect.); Coronavirus NL63 PCR Not Detected (Not Detect.); Coronavirus OC43 PCR Not Detected (Not Detect.); Human metapneumovirus PCR Not Detected (Not Detect.); Influenza A PCR Not Detected (Not Detect.); Influenza B PCR Not Detected (Not Detect.); Mycoplasma pneumoniae PCR Not Detected (Not Detect.); Parainfluenza 1 PCR Not Detected (Not Detect.); Parainfluenza 2 PCR Not Detected (Not Detect.); Parainfluenza 3 PCR Not Detected (Not Detect.); Parainfluenza 4 PCR Not Detected (Not Detect.); RSV PCR Not Detected (Not Detect.); Rhino/Enterovirus PCR Detected (Not Detect.)
--- NOTE | 2024-06-25 11:26 | MHC.CM.PN ---
IMM 06/25/24, Pt resides at [facility] for LTC. HCP is in chart and confirmed. DCP is for her to return to SNF via BLS at [place]. CM to follow and assist with DC plan.
[2024-06-25 11:40] LABS: SARS-CoV-2 PCR Not Detected (Not Detect.)
[2024-06-25 11:42] LABS: Glucose, Whole Blood 220 mg/dL (60-115)
[2024-06-25] MEDS: guaiFENesin LA 600 MG TAB.ER.12H PO ×2 (12:27→22:25)
--- NOTE | 2024-06-25 12:35 | HO.PM.IMPN ---
Subjective Subjective Date of Service: 06/25/24 Interval History: Seen and examined this morning Follow-up for acute on chronic respiratory failure Patient reports feeling ?good? no shortness of breath, some intermittent coughing Reports that she has BiPAP overnight Review of Systems Review of Systems: Yes all other systems are reviewed and are negative Constitutional Constitutional: Denies chills and Denies fever(s) Respiratory Respiratory: Reports cough Gastrointestinal Gastrointestinal: Denies abdominal pain Physical Exam Vital Signs: Vital Signs: Last Vital Signs Temp 97.8 F 06/25/24 11:20 Pulse 87 06/25/24 11:20 Resp 18 06/25/24 11:20 BP 133/69 06/25/24 11:20 Pulse Ox 91 L 06/25/24 11:20 O2 Del Method Nasal Cannula 06/25/24 11:20 O2 Flow Rate 3 06/25/24 11:20 BMI result Body Mass Index 39.7 Const: General: cooperative, comfortable, no acute distress, alert and awake Nutritional Appearance: obese Orientation/consciousness: patient oriented x3 Resp: Effort & Inspection: normal respiratory effort, able to speak in complete sentences, no respiratory distress and no use of accessory muscles Cardio: Rate: regular rate GI: Inspection: No distended, Yes Abdominal panniculus present and Yes obesity Palpation (GI): Soft to palpation Neuro: General: patient oriented x3, moves all extremities and CN's II-XI intact bilaterally Extrem: General: Yes no pedal edema Objective Data Active Medications Acetaminophen (Acetaminophen 325 Mg Tablet) 650 mg PO Q6H PRN PRN Reason: Pain, Mild (Pain Scale 1-3), fever or headache Acetazolamide (Acetazolamide 250 Mg Tablet) 500 mg PO BID [facility] Last Admin: 06/25/24 08:13 Dose: 500 mg Documented By: RICKI Albuterol Sulfate (Albuterol Sulfate (0.083%) 2.5 Mg/3 Ml Vial.Neb) 2.5 mg INHALE Q4H PRN PRN Reason: Shortness Of Breath/Wheezing Amlodipine Besylate (Amlodipine Besylate 5 Mg Tablet) 5 mg PO DAILY [facility]; Protocol Last Admin: 06/25/24 08:13 Dose: 5 mg Documented By: RICKI Aspirin (Aspirin 81 Mg Tab.Chew) 81 mg PO DAILY [facility] Last Admin: 06/25/24 08:13 Dose: 81 mg Documented By: RICKI Atorvastatin Calcium (Atorvastatin Calcium 80 Mg Tablet) 80 mg PO BEDTIME [facility] Last Admin: 06/24/24 21:26 Dose: 80 mg Documented By: DARY Benzocaine (Throat Lozenge, Medicated Lozenge) 1 lozenge MUCOUS MEM Q4H PRN PRN Reason: Sore Throat Bupropion HCl (Bupropion Hcl Xl 150 Mg Tab.Er.24h) 150 mg PO DAILY [facility] Last Admin: 06/25/24 08:13 Dose: 150 mg Documented By: RICKI Bupropion HCl (Bupropion Hcl Xl 300 Mg Tab.Er.24h) 300 mg PO DAILY [facility] Last Admin: 06/25/24 08:14 Dose: 300 mg Documented By: RICKI Calcium Carbonate (Calcium Carbonate 750 Mg Tab.Chew) 750 mg PO Q4H PRN PRN Reason: Heartburn Cyanocobalamin (Cyanocobalamin (Vitamin B-12) 1,000 Mcg Tablet) 1,000 mcg PO DAILY [facility] Last Admin: 06/25/24 08:14 Dose: 1,000 mcg Documented By: RICKI Enoxaparin Sodium (Enoxaparin Sodium 40 Mg/0.4 Ml Syringe) 40 mg SUBCUT Q24H [facility] Last Admin: 06/24/24 17:48 Dose: 40 mg Documented By: FARZANA Ferrous Sulfate (Ferrous Sulfate 324 Mg Tablet.Dr) 324 mg PO DAILY [facility] Last Admin: 06/25/24 08:14 Dose: 324 mg Documented By: RICKI Fluticasone/Vilanterol (Fluticasone/Vilanterol 100/25 Blst.W.Dev) 1 puff INHALE DAILY [facility] Last Admin: 06/25/24 08:17 Dose: Not Given Documented By: RICKI Non-Admin Reason: Med Not Available Furosemide (Furosemide 40 Mg/4 Ml Vial) 40 mg IVPUSH DAILY [facility]; Protocol Last Admin: 06/25/24 08:12 Dose: 40 mg Documented By: RICKI Glucose (Glucose Gel 15 Gm Gel..Gram.) 15 gm PO Q15M PRN; Protocol PRN Reason: per Hypoglycemia Standing Ord. Guaifenesin (Guaifenesin La 600 Mg Tab.Er.12h) 600 mg PO BID [facility] Last Admin: 06/25/24 12:27 Dose: 600 mg Documented By: RICKI Guaifenesin/Dextromethorphan (Guaifenesin Dm 100/10/5 Ml 5 Ml Syrup) 10 ml PO Q6H PRN PRN Reason: Cough Last Admin: 06/24/24 21:29 Dose: 10 ml Documented By: DARY Ceftriaxone Sodium 1 gm/ (Sodium Chloride) 50 mls @ 100 mls/hr IV Q24H [facility] Last Infusion: 06/25/24 07:41 Dose: Infused Documented By: RICKI Doxycycline Hyclate 100 mg/ (Sodium Chloride) 250 mls @ 166.67 mls/hr IV Q12H [facility] Last Infusion: 06/25/24 09:05 Dose: Infused Documented By: RICKI Dextrose (D10) 250 mls @ 750 mls/hr IV Q15M PRN; Protocol PRN Reason: per Hypoglycemia Standing Ord. Insulin Glargine (Insulin Glargine,Hum.Rec.Anlog 100 Unit/Ml 10 Ml Vial) 25 unit SUBCUT DAILY [facility] Last Admin: 06/25/24 08:15 Dose: 25 unit Documented By: RICKI Insulin Human Lispro (Insulin Lispro 100 Unit/Ml 3 Ml Vial) 0 unit SUBCUT QIDACHS [facility]; Protocol Last Admin: 06/25/24 12:28 Dose: 4 unit Documented By: RICKI Magnesium Hydroxide (Milk Of Magnesia 30 Ml Oral.Susp) 30 ml PO DAILY PRN PRN Reason: Constipation Melatonin (Melatonin 3 Mg Tablet) 6 mg PO BEDTIME PRN PRN Reason: Insomnia Last Admin: 06/24/24 21:30 Dose: 6 mg Documented By: DARY Modafinil (Modafinil 100 Mg Tablet) 100 mg PO DAILY [facility] Last Admin: 06/25/24 08:13 Dose: 100 mg Documented By: RICKI Nystatin (Nystatin Powder 15 Gm Bottle) 1 appl TOPICAL TID [facility]; Protocol Last Admin: 06/25/24 08:17 Dose: Not Given Documented By: RICKI Non-Admin Reason: Med Not Available Polyethylene Glycol (Polyethylene Glycol 3350 17 Gm Powd.Pack) 17 gm PO DAILY PRN PRN Reason: Constipation Potassium Chloride (Potassium Chloride Er 10 Meq Tablet.Er) 10 meq PO DAILY [facility] Last Admin: 06/25/24 08:14 Dose: 10 meq Documented By: RICKI Prednisone (Prednisone 20 Mg Tablet) 40 mg PO DAILY [facility] Last Admin: 06/25/24 08:13 Dose: 40 mg Documented By: RICKI Senna (Sennosides 8.6 Mg Tablet) 17.2 mg PO BEDTIME [facility] Last Admin: 06/24/24 21:27 Dose: 17.2 mg Documented By: DARY Sertraline HCl (Sertraline Hcl 100 Mg Tablet) 200 mg PO DAILY [facility] Last Admin: 06/25/24 08:17 Dose: 200 mg Documented By: RICKI Sodium Chloride (0.9 % Sodium Chloride Flush 3 Ml Syringe) [facility] Last Admin: 06/25/24 07:36 Dose: 3 ml Documented By: RICKI Spironolactone (Spironolactone 25 Mg Tablet) 25 mg PO DAILY [facility]; Protocol Last Admin: 06/25/24 08:14 Dose: 25 mg Documented By: RICKI Vitamin D (Cholecalciferol (Vitamin D3) 25 Mcg Tablet) 25 mcg PO DAILY [facility] Last Admin: 06/25/24 08:14 Dose: 25 mcg Documented By: RICKI Labs 06/25/24 06:33 06/25/24 06:33 Labs: Laboratory Results - last 24 hr 06/24/24 06/24/24 06/24/24 13:16 13:19 13:26 MCV 96.9 MCH 28.5 MCHC 29.4 L RDW 15.3 Plt Count 269 D MPV 9.9 Immature Gran % (Auto) 0.7 H Neut % (Auto) 68.3 Lymph % (Auto) 22.8 [place] % (Auto) 6.0 Eos % (Auto) 1.8 Baso % (Auto) 0.4 Lymph # (Auto) 1.9 [place] # (Auto) 0.5 Eos # (Auto) 0.2 Baso # (Auto) 0.0 Abs Immat Gran (auto) 0.06 H Absolute Neuts (auto) 5.6 Absolute Nucleated RBC 0.030 H Nucleated RBC % (auto) 0.4 H PT 11.7 INR 1.0 VBG pH 7.33 VBG pCO2 66 VBG pO2 67 VBG HCO3 35 H VBG O2 Saturation 95.0 VBG Base Excess 7.7 Anion Gap 9 L Estim Creat Clear Calc 96.6 Estimated GFR > 60 POC Glucose Random Glucose 123 H Lactic Acid 0.9 Calcium 9.5 D Magnesium 2.0 Total Bilirubin 0.3 Direct Bilirubin 0.1 AST 9 ALT 13 Alkaline Phosphatase 78 Troponin I High Sens 16.0 C-Reactive Protein 1.46 H B-Natriuretic Peptide 50 Total Protein 6.7 Albumin 3.6 Procalcitonin 0.07 Nasal Screen MRSA (PCR) Nasal S. aureus Screen Nasal MRSA/S.aureus Interp Respiratory Panel Evans Adenovirus (Rapid PCR) B.pert (TEM-PCR) B.parapertussis DNA PCR C. pneumoniae DNA (PCR) Coronavirus OC43 (PCR) Coronavirus HKU1 (PCR) Coronavirus 229E (PCR) Coronavirus NL63 (PCR) Human Metapneumovir PCR Influenza A (RT-PCR) Influenza Type A (PCR) Influenza B (RT-PCR) Influenza Type B (PCR) M. pneumoniae (PCR) Parainfluenza 1 (PCR) Parainfluenza 2 (PCR) Parainfluenza 3 (PCR) Parainfluenza 4 (PCR) RSV (PCR) RSV RNA Qual (PCR) Entero/Rhino (PCR) SARS-CoV-2 RNA (RT-PCR) 06/24/24 06/24/24 06/24/24 20:16 20:16 21:25 MCV MCH MCHC RDW Plt Count MPV Immature Gran % (Auto) Neut % (Auto) Lymph % (Auto) [place] % (Auto) Eos % (Auto) Baso % (Auto) Lymph # (Auto) [place] # (Auto) Eos # (Auto) Baso # (Auto) Abs Immat Gran (auto) Absolute Neuts (auto) Absolute Nucleated RBC Nucleated RBC % (auto) PT INR VBG pH VBG pCO2 VBG pO2 VBG HCO3 VBG O2 Saturation VBG Base Excess Anion Gap Estim Creat Clear Calc Estimated GFR POC Glucose 328 H Random Glucose Lactic Acid Calcium Magnesium Total Bilirubin Direct Bilirubin AST ALT Alkaline Phosphatase Troponin I High Sens C-Reactive Protein B-Natriuretic Peptide Total Protein Albumin Procalcitonin Nasal Screen MRSA (PCR) NEGATIVE Nasal S. aureus Screen POSITIVE A Nasal MRSA/S.aureus Interp SEE NOTE Respiratory Panel Evans See Note Adenovirus (Rapid PCR) Not Detected B.pert (TEM-PCR) Not Detected B.parapertussis DNA PCR Not Detected C. pneumoniae DNA (PCR) Not Detected Coronavirus OC43 (PCR) Not Detected Coronavirus HKU1 (PCR) Not Detected Coronavirus 229E (PCR) Not Detected Coronavirus NL63 (PCR) Not Detected Human Metapneumovir PCR Not Detected Influenza A (RT-PCR) Not Detected Influenza Type A (PCR) NEGATIVE Influenza B (RT-PCR) Not Detected Influenza Type B (PCR) NEGATIVE M. pneumoniae (PCR) Not Detected Parainfluenza 1 (PCR) Not Detected Parainfluenza 2 (PCR) Not Detected Parainfluenza 3 (PCR) Not Detected Parainfluenza 4 (PCR) Not Detected RSV (PCR) Not Detected RSV RNA Qual (PCR) NEGATIVE Entero/Rhino (PCR) Detected A SARS-CoV-2 RNA (RT-PCR) NEGATIVE Not Detected 06/25/24 06/25/24 06/25/24 06:33 07:48 11:21 MCV 94.5 MCH 28.4 MCHC 30.0 L RDW 15.0 Plt Count 284 MPV 10.6 Immature Gran % (Auto) Neut % (Auto) Lymph % (Auto) [place] % (Auto) Eos % (Auto) Baso % (Auto) Lymph # (Auto) [place] # (Auto) Eos # (Auto) Baso # (Auto) Abs Immat Gran (auto) Absolute Neuts (auto) Absolute Nucleated RBC 0.000 Nucleated RBC % (auto) 0.0 PT INR VBG pH VBG pCO2 VBG pO2 VBG HCO3 VBG O2 Saturation VBG Base Excess Anion Gap 13 Estim Creat Clear Calc 87.5 Estimated GFR > 60 POC Glucose 194 H 220 H Random Glucose 183 H Lactic Acid Calcium 9.1 Magnesium Total Bilirubin Direct Bilirubin AST ALT Alkaline Phosphatase Troponin I High Sens C-Reactive Protein B-Natriuretic Peptide Total Protein Albumin Procalcitonin 0.11 Nasal Screen MRSA (PCR) Nasal S. aureus Screen Nasal MRSA/S.aureus Interp Respiratory Panel [place] Adenovirus (Rapid PCR) B.pert (TEM-PCR) B.parapertussis DNA PCR C. pneumoniae DNA (PCR) Coronavirus OC43 (PCR) Coronavirus HKU1 (PCR) Coronavirus 229E (PCR) Coronavirus NL63 (PCR) Human Metapneumovir PCR Influenza A (RT-PCR) Influenza Type A (PCR) Influenza B (RT-PCR) Influenza Type B (PCR) M. pneumoniae (PCR) Parainfluenza 1 (PCR) Parainfluenza 2 (PCR) Parainfluenza 3 (PCR) Parainfluenza 4 (PCR) RSV (PCR) RSV RNA Qual (PCR) Entero/Rhino (PCR) SARS-CoV-2 RNA (RT-PCR) Assessment and Plan (1) Acute and chronic respiratory failure: Status: Acute Plan THis is a 63-year-old female with a past medical history of morbid obesity, obesity hypoventilation syndrome with CO2 retention, COPD? (on home O2 2-3 L ), diabetes mellitus, diastolic dysfunction,? 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, mood disorder,?diabetes, frequent admissions for respiratory failure who was sent to the emergency department for shortness of breath and hypoxia being admitted for pneumonia Acute on chronic respiratory failure with hypoxia due to pneumonia with underlying obesity hypoventilation, SMILEY, COPD & HFpEF says she is not compliant with bipap which is liking contributing factor as well procalcitonin low, no white count, no fever, likely pneumonia viral but will cover with empiric antibiotics for now Flu, RSV, covid PCR negative; RPP + for enter/rhinovirus Currently on baseline O2 continue bipap at night and with naps blood culture pending Acute on chronic HFpEF 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, rec to treat with IV lasix, will transition back to PO lasix Continue baseline Aldactone, acetazolamide low sodium diet follow Is&Os DM with hyperglycemia had one high blood sugar reading Hold metformin, Ozempic SSI, POCs ADA diet continue lantus (reduced from baseline, can uptitrate prn) Hypertension Continue Norvasc, Aldactone, hold losartan for now resume as blood pressure allows Mood continue baseline medications Hyperlipidemia Continue statin Morbid obesity Elevated BMI/body habitus contributing to recurrent respiratory failure DVT prophylaxis/Lovenox Code status - pt wants to be DNR/DNI; present during discussion [id number] stay for management of pneumonia and close monitoring of respiratory failure Quality Stroke Does the patient have a stroke diagnosis?: No VTE Prior VTE?: No VTE Risk Level:: Medical - moderate - high VTE Device Contraindication: N/A - Device Ordered VTE Drug Contraindication: N/A - Med Ordered
[2024-06-25 14:35] VITALS: BMI 39.7
--- NOTE | 2024-06-25 14:40 | MHC.CLN ---
PT WITH INCREASED NUTRITION RISK R/T PRESSURE INJURY PO INTAKE 100% X2 MEALS DIET RX: 1800DM 2GM NA-APPROPRIATE RECOMMEND ADDING ENSURE MAX BID TO PROMOTE WOUND HEALING SUPP PROVIDES 300KCALS, 60G PROTEIN MONITOR PO INTAKE AND ENCOURAGE SUPPLEMENTS SEE ALSO FULL CLINICAL NUTRITION ASSESSMENT
[2024-06-25 15:23] VITALS: BP 141/83; PULSE 85; RESP 18; TEMP 36.6; O2SAT 93
--- NOTE | 2024-06-25 15:30 | P.CDIM_ITS ---
PROVIDER RESPONSE TEXT: To clarify, the appropriate diagnosis supported by the clinical indicators: Diabetes mellitus Type 2 with hyperglycemia: one high blood sugar reading QUERY TEXT: PHYSICIAN'S DOCUMENTATION REQUEST Date of Query: 06/25/2024 09:31 AM EDT Patient Name: Bonnie Das Admit Date: 06/24/2024 Dear Bonnie STONE, A review of the medical record indicates additional documentation may be needed. Please review below and update the documentation accordingly. Clinical Indicators: LABS: POC glucose 328 H DM Hold metformin, Ozempic, SSI, POC's ADA diet reduced dose of lantus Please clarify the following regarding the Complications of Diabetes Mellitus (DM): Diabetes mellitus Type 2 with hyperglycemia possible, probable, suspected, resolving etc. Other (explain) Clinically unable to determine (explain) Thank you, Shanita Contreras, CCS, CDIS Use of terms such as suspected, likely, concern for, or probable (associated with a specific diagnosi s that is being evaluated, monitored, or treated as if it exists) are acceptable and can be coded in the inpatient se tting, when documented at the time of discharge. Please use your independent medical judgment in providing your response. THIS QUERY IS PART OF THE PERMANENT MEDICAL RECORD
[2024-06-25 16:01] LABS: Glucose, Whole Blood 250 mg/dL (60-115)
[2024-06-25] MEDS: Nystatin Powder 15 GM BOTTLE 1 APPL TOPICAL (16:15)
[2024-06-25] MEDS: Enoxaparin Sodium 40 MG/0.4 ML SYRINGE SUBCUT (16:56)
[2024-06-25 20:00] VITALS: BP 120/58; PULSE 81; RESP 20; TEMP 37.2; O2SAT 90
[2024-06-25 21:05] LABS: Glucose, Whole Blood 266 mg/dL (60-115)
[2024-06-25] MEDS: Atorvastatin Calcium 80 MG TABLET PO (22:25)
[2024-06-25] MEDS: Sennosides 8.6 MG TABLET 17.2 MG PO (22:25)
[2024-06-26] VITALS (8 sets, daily range): BP systolic 122–138; BP diastolic 59–76; PULSE 67–96; RESP 15–20; TEMP 36.1–36.6; O2SAT 91–93
[2024-06-26] MEDS: 0.9 % Sodium Chloride Flush 3 ML SYRINGE IVFLUSH ×3 (00:18→17:00)
--- NOTE | 2024-06-26 04:47 | PC.RT ---
Pt refused AVAPS
[2024-06-26] MEDS: cefTRIAXone sodium 1 GM VIAL IV (06:00)
[2024-06-26] MEDS: Doxycycline Hyclate 100 MG in 0.9 % Sodium Chloride 250 ML 166.67 MG IV ×2 (06:35→17:53)
[2024-06-26] MEDS: Fluticasone/Vilanterol 100/25 BLST.W.DEV 1 PUFF INHALE (08:17)
[2024-06-26 09:36] LABS: Glucose, Whole Blood 99 mg/dL (60-115)
[2024-06-26] MEDS: predniSONE 20 MG TABLET 40 MG PO (09:39)
[2024-06-26] MEDS: acetaZOLAMIDE 250 MG TABLET 500 MG PO ×2 (09:39→21:21)
[2024-06-26] MEDS: Sertraline HCL 100 MG TABLET 200 MG PO (09:39)
[2024-06-26] MEDS: buPROPion HCl XL 300 MG TAB.ER.24H PO (09:40)
[2024-06-26] MEDS: buPROPion HCl XL 150 MG TAB.ER.24H PO (09:40)
[2024-06-26] MEDS: Spironolactone 25 MG TABLET PO (09:40)
[2024-06-26] MEDS: amLODIPine Besylate 5 MG TABLET PO (09:40)
[2024-06-26] MEDS: Potassium Chloride ER 10 MEQ TABLET.ER PO (09:40)
[2024-06-26] MEDS: Ferrous Sulfate 324 MG TABLET.DR PO (09:40)
[2024-06-26] MEDS: modafiniL 100 MG TABLET PO (09:40)
[2024-06-26] MEDS: Insulin Glargine,Hum.rec.anlog 100 UNIT/ML 10 ML VIAL 25 UNIT SUBCUT (09:40)
[2024-06-26] MEDS: guaiFENesin LA 600 MG TAB.ER.12H PO ×2 (09:40→21:18)
[2024-06-26] MEDS: Furosemide 40 MG TABLET PO (09:40)
[2024-06-26] MEDS: Cyanocobalamin (Vitamin B-12) 1,000 MCG TABLET 1000 MCG PO (09:40)
[2024-06-26] MEDS: Aspirin 81 MG TAB.CHEW PO (09:40)
[2024-06-26] MEDS: Cholecalciferol (Vitamin D3) 25 MCG TABLET PO (09:40)
[2024-06-26] MEDS: Acetaminophen 325 MG TABLET 650 MG PO (11:20)
[2024-06-26] MEDS: Nystatin Powder 15 GM BOTTLE 1 APPL TOPICAL ×3 (11:22→21:32)
--- NOTE | 2024-06-26 11:44 | P.PNIM_ITS ---
Subjective Subjective Date of Service: 06/26/24 Interval History: Seen and examined this morning Follow-up for acute on chronic respiratory failure Patient reports feeling ?good? no shortness of breath, some intermittent coughing Reports that she has BiPAP overnight Review of Systems Review of Systems: Yes all other systems are reviewed and are negative Constitutional Constitutional: Denies chills and Denies fever(s) Respiratory Respiratory: Reports cough Gastrointestinal Gastrointestinal: Denies abdominal pain Physical Exam 2 Vital Signs: Vital Signs: Last Vital Signs Temp 97.6 F 06/26/24 08:00 Pulse 67 06/26/24 08:18 Resp 18 06/26/24 08:18 BP 129/60 06/26/24 08:00 Pulse Ox 92 06/26/24 08:00 O2 Del Method Nasal Cannula 06/26/24 08:00 O2 Flow Rate 2 06/26/24 08:00 BMI result Body Mass Index 39.7 Appearing in no acute distress lung sounds are clear to auscultation heart regular rate rhythm, clear S1, S2 positive bowel sounds, abdomen is soft, nontender neuro patient is alert x3, no focal deficits Objective Data Active Medications Acetaminophen (Acetaminophen 325 Mg Tablet) 650 mg PO Q6H PRN PRN Reason: Pain, Mild (Pain Scale 1-3), fever or headache Last Admin: 06/26/24 11:20 Dose: 650 mg Documented By: NICHOLAS Acetazolamide (Acetazolamide 250 Mg Tablet) 500 mg PO BID [facility] Last Admin: 06/26/24 09:39 Dose: 500 mg Documented By: NICHOLAS Albuterol Sulfate (Albuterol Sulfate (0.083%) 2.5 Mg/3 Ml Vial.Neb) 2.5 mg INHALE Q4H PRN PRN Reason: Shortness Of Breath/Wheezing Amlodipine Besylate (Amlodipine Besylate 5 Mg Tablet) 5 mg PO DAILY [facility]; Protocol Last Admin: 06/26/24 09:40 Dose: 5 mg Documented By: NICHOLAS Aspirin (Aspirin 81 Mg Tab.Chew) 81 mg PO DAILY [facility] Last Admin: 06/26/24 09:40 Dose: 81 mg Documented By: NICHOLAS Atorvastatin Calcium (Atorvastatin Calcium 80 Mg Tablet) 80 mg PO BEDTIME [facility] Last Admin: 06/25/24 22:25 Dose: 80 mg Documented By: FAUSTINO Benzocaine (Throat Lozenge, Medicated Lozenge) 1 lozenge MUCOUS MEM Q4H PRN PRN Reason: Sore Throat Bupropion HCl (Bupropion Hcl Xl 150 Mg Tab.Er.24h) 150 mg PO DAILY [facility] Last Admin: 06/26/24 09:40 Dose: 150 mg Documented By: NICHOLAS Bupropion HCl (Bupropion Hcl Xl 300 Mg Tab.Er.24h) 300 mg PO DAILY [facility] Last Admin: 06/26/24 09:40 Dose: 300 mg Documented By: NICHOLAS Calcium Carbonate (Calcium Carbonate 750 Mg Tab.Chew) 750 mg PO Q4H PRN PRN Reason: Heartburn Ceftriaxone Sodium (Ceftriaxone Sodium 1 Gm Vial) 1 gm IV Q24H [facility] Last Admin: 06/26/24 06:00 Dose: 1 gm Documented By: SHY Cyanocobalamin (Cyanocobalamin (Vitamin B-12) 1,000 Mcg Tablet) 1,000 mcg PO DAILY [facility] Last Admin: 06/26/24 09:40 Dose: 1,000 mcg Documented By: NICHOLAS Enoxaparin Sodium (Enoxaparin Sodium 40 Mg/0.4 Ml Syringe) 40 mg SUBCUT Q24H [facility] Last Admin: 06/25/24 16:56 Dose: 40 mg Documented By: RICKI Ferrous Sulfate (Ferrous Sulfate 324 Mg Tablet.Dr) 324 mg PO DAILY [facility] Last Admin: 06/26/24 09:40 Dose: 324 mg Documented By: NICHOLAS Fluticasone/Vilanterol (Fluticasone/Vilanterol 100/25 Blst.W.Dev) 1 puff INHALE DAILY [facility] Last Admin: 06/26/24 08:17 Dose: 1 puff Documented By: GRISELDA Furosemide (Furosemide 40 Mg Tablet) 40 mg PO DAILY [facility]; Protocol Last Admin: 06/26/24 09:40 Dose: 40 mg Documented By: NICHOLAS Glucose (Glucose Gel 15 Gm Gel..Gram.) 15 gm PO Q15M PRN; Protocol PRN Reason: per Hypoglycemia Standing Ord. Guaifenesin (Guaifenesin La 600 Mg Tab.Er.12h) 600 mg PO BID [facility] Last Admin: 06/26/24 09:40 Dose: 600 mg Documented By: NICHOLAS Guaifenesin/Dextromethorphan (Guaifenesin Dm 100/10/5 Ml 5 Ml Syrup) 10 ml PO Q6H PRN PRN Reason: Cough Last Admin: 06/24/24 21:29 Dose: 10 ml Documented By: DARY Doxycycline Hyclate 100 mg/ (Sodium Chloride) 250 mls @ 166.67 mls/hr IV Q12H [facility] Last Infusion: 06/26/24 09:36 Dose: Infused Documented By: NICHOLAS Dextrose (D10) 250 mls @ 750 mls/hr IV Q15M PRN; Protocol PRN Reason: per Hypoglycemia Standing Ord. Insulin Glargine (Insulin Glargine,Hum.Rec.Anlog 100 Unit/Ml 10 Ml Vial) 25 unit SUBCUT DAILY [facility] Last Admin: 06/26/24 09:40 Dose: 25 unit Documented By: NICHOLAS Insulin Human Lispro (Insulin Lispro 100 Unit/Ml 3 Ml Vial) 0 unit SUBCUT QIDACHS [facility]; Protocol Last Admin: 06/26/24 09:36 Dose: Not Given Documented By: NICHOLAS Non-Admin Reason: No Insulin Coverage Magnesium Hydroxide (Milk Of Magnesia 30 Ml Oral.Susp) 30 ml PO DAILY PRN PRN Reason: Constipation Melatonin (Melatonin 3 Mg Tablet) 6 mg PO BEDTIME PRN PRN Reason: Insomnia Last Admin: 06/24/24 21:30 Dose: 6 mg Documented By: DARY Modafinil (Modafinil 100 Mg Tablet) 100 mg PO DAILY [facility] Last Admin: 06/26/24 09:40 Dose: 100 mg Documented By: NICHOLAS Nystatin (Nystatin Powder 15 Gm Bottle) 1 appl TOPICAL TID [facility]; Protocol Last Admin: 06/26/24 11:22 Dose: 1 appl Documented By: NICHOLAS Polyethylene Glycol (Polyethylene Glycol 3350 17 Gm Powd.Pack) 17 gm PO DAILY PRN PRN Reason: Constipation Potassium Chloride (Potassium Chloride Er 10 Meq Tablet.Er) 10 meq PO DAILY [facility] Last Admin: 06/26/24 09:40 Dose: 10 meq Documented By: NICHOLAS Prednisone (Prednisone 20 Mg Tablet) 40 mg PO DAILY [facility] Last Admin: 06/26/24 09:39 Dose: 40 mg Documented By: NICHOLAS Senna (Sennosides 8.6 Mg Tablet) 17.2 mg PO BEDTIME [facility] Last Admin: 06/25/24 22:25 Dose: 17.2 mg Documented By: FAUSTINO Sertraline HCl (Sertraline Hcl 100 Mg Tablet) 200 mg PO DAILY [facility] Last Admin: 06/26/24 09:39 Dose: 200 mg Documented By: NICHOLAS Sodium Chloride (0.9 % Sodium Chloride Flush 3 Ml Syringe) 3 ml IVFLUSH QSHIFT [facility] Last Admin: 06/26/24 09:41 Dose: 3 ml Documented By: NICHOLAS Spironolactone (Spironolactone 25 Mg Tablet) 25 mg PO DAILY [facility]; Protocol Last Admin: 06/26/24 09:40 Dose: 25 mg Documented By: NICHOLAS Vitamin D (Cholecalciferol (Vitamin D3) 25 Mcg Tablet) 25 mcg PO DAILY [facility] Last Admin: 06/26/24 09:40 Dose: 25 mcg Documented By: NICHOLAS Labs 06/25/24 06:33 06/25/24 06:33 Labs: Laboratory Results - last 24 hr 06/25/24 06/25/24 06/26/24 15:55 20:46 09:32 POC Glucose 250 H 266 H 99 Microbiology Microbiology Results: Microbiology 06/24/24 17:38 Blood Culture - Preliminary Blood - Venous No growth after 24 hours. 06/24/24 13:19 Blood Culture - Preliminary Blood - Venous No growth after 24 hours. Assessment and Plan (1) Acute and chronic respiratory failure: Status: Acute Plan THis is a 63-year-old female with a past medical history of morbid obesity, obesity hypoventilation syndrome with CO2 retention, COPD? (on home O2 2-3 L ), diabetes mellitus, diastolic dysfunction,? hypertension, hyperlipidemia, third- degree AV block status post dual-chamber pacemaker, mood disorder,?diabetes, frequent admissions for respiratory failure who was sent to the emergency department for shortness of breath and hypoxia being admitted for pneumonia Acute on chronic respiratory failure with hypoxia due to pneumonia with underlying obesity hypoventilation, SMILEY, COPD & HFpEF says she is not compliant with bipap which is liking contributing factor as well procalcitonin low, no white count, no fever, likely pneumonia viral but will cover with empiric antibiotics for now Flu, RSV, covid PCR negative; RPP + for enter/rhinovirus Currently on baseline O2 continue bipap at night and with naps blood culture neg Acute on chronic HFpEF seen by collections associate, rec to treat with IV lasix, will transition back to PO lasix Continue baseline Aldactone, acetazolamide low sodium diet follow Is&Os DM 2 with hyperglycemia had one high blood sugar reading Hold metformin, Ozempic SSI, POCs ADA diet continue lantus (reduced from baseline, can uptitrate prn) Hypertension Continue Norvasc, Aldactone, hold losartan for now resume as blood pressure allows Mood continue baseline medications Hyperlipidemia Continue statin Morbid obesity class II Elevated BMI/body habitus contributing to recurrent respiratory failure DVT prophylaxis/Lovenox Code status - pt wants to be DNR/DNI; present during discussion [facility] for management of pneumonia and close monitoring of respiratory failure Quality Stroke Does the patient have a stroke diagnosis?: No VTE Prior VTE?: No VTE Risk Level:: Medical - moderate - high VTE Device Contraindication: N/A - Device Ordered VTE Drug Contraindication: N/A - Med Ordered
[2024-06-26 11:56] LABS: Glucose, Whole Blood 119 mg/dL (60-115)
[2024-06-26] MEDS: Insulin Lispro 100 UNIT/ML 3 ML VIAL SUBCUT ×2 (17:01→21:19)
[2024-06-26] MEDS: Enoxaparin Sodium 40 MG/0.4 ML SYRINGE SUBCUT (17:01)
[2024-06-26 17:30] LABS: Glucose, Whole Blood 300 mg/dL (60-115)
[2024-06-26 20:43] LABS: Glucose, Whole Blood 256 mg/dL (60-115)
[2024-06-26] MEDS: Melatonin 3 MG TABLET 6 MG PO (21:18)
[2024-06-26] MEDS: Sennosides 8.6 MG TABLET 17.2 MG PO (21:19)
[2024-06-26] MEDS: Atorvastatin Calcium 80 MG TABLET PO (21:19)
[2024-06-27] MEDS: 0.9 % Sodium Chloride Flush 3 ML SYRINGE IVFLUSH ×2 (01:47→10:15)
[2024-06-27 04:00] VITALS: BP 130/70; PULSE 102; RESP 20; TEMP 36.1; O2SAT 94
[2024-06-27] MEDS: cefTRIAXone sodium 1 GM VIAL IV (06:01)
[2024-06-27] MEDS: Doxycycline Hyclate 100 MG in 0.9 % Sodium Chloride 250 ML 166.67 MG IV (06:15)
--- NOTE | 2024-06-27 06:25 | PC.RT ---
Pt refused AVAPS
[2024-06-27] MEDS: Acetaminophen 325 MG TABLET 650 MG PO (06:37)
[2024-06-27 07:55] VITALS: PULSE 64; RESP 16; O2SAT 92
[2024-06-27] MEDS: Fluticasone/Vilanterol 100/25 BLST.W.DEV 1 PUFF INHALE (07:55)
[2024-06-27 08:00] VITALS: BP 122/59; PULSE 83; RESP 16; TEMP 36.3; O2SAT 92
--- NOTE | 2024-06-27 08:56 | P.DS_ITS ---
DS: Providers Provider Date of Service: 06/27/24 Date of admission: 06/24/24 16:55 Primary care physician: Tita Bal MD Consults: 06/25/24 07:31 Consult to Wound Care Routine Reason for consultation: Stage 2 to coccyx Has provider been notified: Yes DS: Diagnosis Discharge Diagnosis (1) Acute and chronic respiratory failure: Status: Acute DS: Summary Hospital Course Hospital Course: History and physical as per admitting provider. This is a 63-year-old female with history of chronic respiratory failure due to underlying COPD and obesity hypoventilation who was brought to the emergency department from [facility] for shortness of breath and hypoxia. Patient was recently admitted to the hospital for UTI, CHF and respiratory failure requiring rescue BiPAP. She was discharged back to the facility with oral antibiotics. She has reported 2 day history of generalized malaise, primarily dry cough. She denies any fever or chills. No abdominal pain, nausea, vomiting, diarrhea. Chest x-ray on last admission with no evidence of pneumonia, repeat chest x-ray today showing possible left lower lobe infiltrate. She was placed on BiPAP prior to arrival in the emergency department and was titrated off of BiPAP to OxyMask. She then fell asleep and desaturated and was placed back on BiPAP. Patient was evaluated by operational communication chief in the ICU who recommended to try patient off of BiPAP and on high-flow nasal cannula. In the emergency department she received IV Lasix IV cefepime azithromycin and IV Solu-Medrol. Patient is awake and alert at the time of admission he will be admitted for further management of respiratory failure and pneumonia. 63-year-old woman treated for acute on chronic respiratory failure with hypoxia secondary to pneumonia and underlying obesity hypoventilation syndrome, COPD and congestive heart failure. RPP was positive for entero/rhino virus. She had no leukocytosis, no fever, treated with IV Rocephin and doxycycline. Currently on baseline oxygen. BiPAP at night and with naps. Blood cultures have remained negative. For her congestive heart failure she was treated IV Lasix and transitioned to oral Lasix. At this time patient is at baseline and will transition back to long-term care facility Diabetes mellitus type 2 with hyperglycemia. Continue metformin and Ozempic. Hypertension. Continue Norvasc, Aldactone and losartan Mental health. Continue home medications Morbid obesity class 2. Discussed importance of weight management as this may be contributing to worsening of other comorbidities Time Attestation Discharge Coordination Time (in mins): 35 Quality: Safe Use of Opioids Does Pt have an Active Cancer Diagnosis on the Problem List?: No Quality: Stroke Does the patient have a stroke diagnosis?: No Physical Exam Vital Signs: Vital Signs: Last Vital Signs Temp 97.3 F 06/27/24 08:00 Pulse 83 06/27/24 08:00 Resp 16 06/27/24 08:00 BP 122/59 L 06/27/24 08:00 Pulse Ox 92 06/27/24 08:00 O2 Del Method Nasal Cannula 06/27/24 08:00 O2 Flow Rate 2 06/27/24 08:00 BMI result Body Mass Index 39.7 Appearing in no acute distress head is normocephalic atraumatic eyes pupils are PERRLA sclera is anicteric mouth throat mucous membranes are intact and moist neck is supple no lymphadenopathy, no JVD noted lung sounds are clear to auscultation heart regular rate rhythm, clear S1, S2 positive bowel sounds, abdomen is soft, nontender neuro patient is alert x3, no focal deficits DS: Data Data Completed and Pending Completed studies during hospitalization [Text1]: Procedures Assistance with Respiratory Ventilation, Less than 24 Consecutive Hours, Continuous Positive Airway Pressure (05/21/24) Insertion of Endotracheal Airway into Trachea, Via Natural or Artificial Opening (11/18/21) Insertion of Infusion Device into Superior Vena Cava, Percutaneous Approach (11/18/21) Introduction of Vasopressor into Peripheral Vein, Percutaneous Approach (11/18/21) Respiratory Ventilation, 24-96 Consecutive Hours (11/18/21) Ultrasonography of Superior Vena Cava, Guidance (11/18/21) Labs on day of discharge: Laboratory Results - last 24 hr 06/26/24 06/26/24 06/26/24 09:32 11:37 16:56 POC Glucose 99 119 H 300 H 06/26/24 20:38 POC Glucose 256 H Preliminary micro results at discharge 06/24/24 17:38 Blood Culture - Preliminary Blood - Venous No growth after 48 hours. 06/24/24 13:19 Blood Culture - Preliminary Blood - Venous No growth after 48 hours. Discharge Plan Discharge Anticipated Discharge Date/Time: 06/27/24 07:35 Patient Disposition: er LTC Discharge Diagnosis: Acute on chronic respiratory failure with hypoxia Acute on chronic heart failure with preserved ejection fraction Diabetes mellitus type 2 with hyperglycemia Referrals: [facility] [Outside] - 1 Week Tita Bal MD [Primary Care Provider] - 1 Week Discharge Medications: New guaifenesin [Mucinex] 600 mg Tablet Extended Release 12hr 600 mg PO BID Qty: 14 0RF prednisone 10 mg tablet See Taper PO DIRECTED Qty: 20 0RF Taper: Prednisone 40 mg daily for 2 Days and 0 Hour 30 mg daily for 2 Days and 0 Hour 20 mg daily for 2 Days and 0 Hour 10 mg daily for 2 Days and 0 Hour Rx Instructions: see taper instructions cefuroxime axetil 500 mg tablet 500 mg PO BID Qty: 4 0RF doxycycline hyclate 100 mg tablet 100 mg PO BID Qty: 4 0RF Continued furosemide 40 mg Tablet 40 mg PO DAILY Qty: 30 0RF Protocol: Hold for SBP< HOLD for SBP < : 90 potassium chloride 10 mEq Tablet Extended Release 10 meq PO DAILY Culturelle 10 billion cell Capsule 1 cap PO BID bupropion HCl 150 mg tablet extended release 24 hr 150 mg PO DAILY Rx Instructions: take with 300mg; tdd 450mg Fleet Enema 19-7 gram/118 mL Enema 118 ml NH DAILY PRN (Reason: Constipation) Rx Instructions: (STEP 3) IF NO BOWEL MOVEMENT 8 HOURS AFTER BISACODYL atorvastatin 80 mg Tablet 80 mg PO BEDTIME sennosides [senna] 8.6 mg Tablet 17.2 mg PO BEDTIME tizanidine 4 mg Tablet 4 mg PO BEDTIME PRN (Reason: Muscle Spasm) sertraline 100 mg Tablet 200 mg PO DAILY melatonin 3 mg Tablet 3 mg PO BEDTIME ferrous sulfate 325 mg (65 mg iron) Tablet 325 mg PO DAILY insulin lispro 100 unit/mL Insulin Pen See Protocol SUBCUT QIDACHS Protocol: Insulin Correction Scale Less than or equal to 110 ---- Give (units): 0 111 to 150 Give (units): 0 151 to 200 Give (units): 0 201 to 250 Give (units): 4 251 to 300 Give (units): 6 301 to 350 Give (units): 8 Greater than 350 Give (units): 10 Call MD if Blood Glucose > : 350 Rx Instructions: SLIDING SCALE IF BLOOD GLUCOSE GREATER THAN 400, GIVE 12 UNITS AND NOTIFY MD amlodipine 5 mg Tablet 5 mg PO DAILY 30 Days Qty: 30 0RF Protocol: Hold for SBP< HOLD for SBP < : 90 aspirin 81 mg Tablet,Chewable 81 mg PO DAILY acetazolamide 250 mg Tablet 500 mg PO BID Qty: 60 0RF losartan 25 mg tablet 25 mg PO DAILY cholecalciferol (vitamin D3) 25 mcg (1,000 unit) Tablet 25 mcg PO DAILY olopatadine 0.2 % Drops 1 drp OPHTHALMIC (EYE) TID Rx Instructions: both eyes megestrol 400 mg/10 mL (40 mg/mL) suspension 400 mg PO TID insulin glargine [Lantus U-100 Insulin] 100 unit/mL solution 25 unit subcut DAILY insulin glargine [Lantus U-100 Insulin] 100 unit/mL Solution 30 unit subcut BEDTIME Qty: 10 0RF acetaminophen 650 mg Tablet Extended Release 650 mg PO Q4H PRN (Reason: General Discomfort) nystatin 100,000 unit/gram Powder 1 appl topical TID Qty: 30 0RF Protocol: Apply to: Apply to: abd folds Rx Instructions: to abdominal folds for fungal rash albuterol sulfate 2.5 mg /3 mL (0.083 %) Solution For Nebulization 2.5 mg inhalation Q4H PRN (Reason: Shortness Of Breath/Wheezing) Qty: 90 0RF menthol 10 mg Lozenge 10 mg MUCOUS MEMBRANE Q4H PRN (Reason: Sore Throat) metformin 500 mg tablet 500 mg PO BID Ozempic 0.25 mg or 0.5 mg (2 mg/3 mL) pen injector 0.5 mg subcut WE magnesium hydroxide [Milk of Magnesia] 400 mg/5 mL Suspension 30 ml PO DAILY PRN (Reason: Constipation) Rx Instructions: (step 1) If no bowel movement for 3 days. spironolactone 25 mg Tablet 25 mg PO DAILY Qty: 30 0RF Protocol: Hold for SBP< HOLD for SBP < : 90 magnesium citrate Solution 300 ml PO DAILY PRN (Reason: Constipation) Patient Comments: If no bowel movement in 12 hours after Rx Instructions: (step 4) If no BM in 12 hours polyethylene glycol 3350 [Miralax] 17 gram/dose Powder 17 g PO DAILY PRN (Reason: Constipation) Jardiance 25 mg tablet 25 mg PO DAILY fluticasone propion-salmeterol 113-14 mcg/actuation aerosol powdr breath activated 1 inh inhalation DAILY Rx Instructions: Rinse mouth with water after use and spit out. modafinil [Provigil] 100 mg Tablet 100 mg PO DAILY Qty: 30 0RF ipratropium-albuterol 0.5 mg-3 mg(2.5 mg base)/3 mL solution for nebulization 3 ml INHALATION TID dextromethorphan-guaifenesin 10-100 mg/5 mL Syrup 10 ml PO Q6H PRN (Reason: Cough) Qty: 237 0RF bisacodyl 10 mg suppository 10 mg NH DAILY PRN (Reason: Constipation, No results from MOM ) Rx Instructions: GIVE IF NO RESULT FROM MILK OF MAGNESIA cyanocobalamin (vitamin B-12) 1,000 mcg capsule 1,000 mcg PO DAILY bupropion HCl 300 mg tablet extended release 24 hr 300 mg PO DAILY Rx Instructions: take with 150mg dose; tdd 450mg Discharge Orders: Discharge Order (Routine); Ordered 06/27/24 Ordered By: Belinda Brooks Diet: Advance to usual diet Activity on Discharge: As tolerated Stand Alone Forms: Patient Portal Discharge page Print Language: Lebanese Care Plan Goals: Transfer back to long-term [facility] facility Health Concerns: Acute on chronic respiratory failure with hypoxia Acute on chronic heart failure with preserved ejection fraction Diabetes mellitus type 2 with hyperglycemia Plan of Treatment: Follow-up with primary care provider as needed Take all medications as prescribed Assessment: See discharge summary
[2024-06-27 09:25] LABS: Glucose, Whole Blood 131 mg/dL (60-115)
[2024-06-27] MEDS: acetaZOLAMIDE 250 MG TABLET 500 MG PO (10:16)
[2024-06-27] MEDS: amLODIPine Besylate 5 MG TABLET PO (10:16)
[2024-06-27] MEDS: buPROPion HCl XL 300 MG TAB.ER.24H PO (10:17)
[2024-06-27] MEDS: buPROPion HCl XL 150 MG TAB.ER.24H PO (10:17)
[2024-06-27] MEDS: Aspirin 81 MG TAB.CHEW PO (10:17)
[2024-06-27] MEDS: Cholecalciferol (Vitamin D3) 25 MCG TABLET PO (10:17)
[2024-06-27] MEDS: Cyanocobalamin (Vitamin B-12) 1,000 MCG TABLET 1000 MCG PO (10:17)
[2024-06-27] MEDS: Furosemide 40 MG TABLET PO (10:18)
[2024-06-27] MEDS: Potassium Chloride ER 10 MEQ TABLET.ER PO (10:18)
[2024-06-27] MEDS: guaiFENesin LA 600 MG TAB.ER.12H PO (10:18)
[2024-06-27] MEDS: Ferrous Sulfate 324 MG TABLET.DR PO (10:18)
[2024-06-27] MEDS: modafiniL 100 MG TABLET PO (10:18)
[2024-06-27] MEDS: Sertraline HCL 100 MG TABLET 200 MG PO (10:19)
[2024-06-27] MEDS: predniSONE 20 MG TABLET 40 MG PO (10:19)
[2024-06-27] MEDS: Spironolactone 25 MG TABLET PO (10:19)
[2024-06-27] MEDS: Nystatin Powder 15 GM BOTTLE 1 APPL TOPICAL (10:23)
[2024-06-27] MEDS: Insulin Glargine,Hum.rec.anlog 100 UNIT/ML 10 ML VIAL 25 UNIT SUBCUT (10:25)
--- NOTE | 2024-06-27 10:52 | MHC.CM.PN ---
Pt is medically cleared for discharge back to [facility] for LTC today via BLS/[facility] transport.
== END 2024-06-27 12:05 | DRG 193 ==
LOC: HO.ED 15:25 → HO.EDOVER 17:07 → HO.IMC 19:32
PROVIDERS: Admitting Provider Physician Assistant Medical; Emergency Provider Emergency Medicine; PCP Internal Medicine; Visit Provider Nurse Practitioner Acute Care
DX: J18.9 Pneumonia, unspecified organism (principal); I50.33 Acute on chronic diastolic (congestive) heart failure; J96.21 Acute and chronic respiratory failure with hypoxia; E66.2 Morbid (severe) obesity with alveolar hypoventilation; J44.0 Chronic obstructive pulmonary disease with (acute) lower respiratory infection; B97.10 Unspecified enterovirus as the cause of diseases classified elsewhere; B97.89 Other viral agents as the cause of diseases classified elsewhere; Z66 Do not resuscitate; Z68.39 Body mass index [BMI] 39.0-39.9, adult; Z99.81 Dependence on supplemental oxygen; E11.65 Type 2 diabetes mellitus with hyperglycemia; I49.5 Sick sinus syndrome; I11.0 Hypertensive heart disease with heart failure; Z95.0 Presence of cardiac pacemaker; Z87.891 Personal history of nicotine dependence; Z71.3 Dietary counseling and surveillance; Z20.822 Contact with and (suspected) exposure to COVID-19; Z79.4 Long term (current) use of insulin; Z79.899 Other long term (current) drug therapy
CPT/HCPCS: 0241U; 36415; 71045; 80048; 80076; 82803; 82947; 83605; 83735; 83880; 84145; 84484; 85025; 85027; 85610; 86140; 87040; 87633; 87640; 87641; 93005; 94640; 99285; J0456; J0692; J0696; J1650; J1940; J2919

== ENCOUNTER → 2024-06-24 12:38 | Outpatient (BNV) | payer MEDICARE, MEDICAID, OTHER, SELFPAY | PROVIDERS: Emergency Provider Emergency Medicine; Visit Provider Internal Medicine Cardiovascular Disease | DX: R06.02 Shortness of breath (principal); R94.31 Abnormal electrocardiogram [ECG] [EKG] | CPT/HCPCS: 93010 ==

== ENCOUNTER → 2024-06-24 16:55 | Outpatient (BNV) | payer MEDICARE, MEDICAID, OTHER, SELFPAY | PROVIDERS: Admitting Provider Physician Assistant Medical; Emergency Provider Emergency Medicine; Visit Provider Physician Assistant Medical | DX: J96.21 Acute and chronic respiratory failure with hypoxia (principal) | CPT/HCPCS: 99223; 99232; 99239 ==

== ENCOUNTER → 2024-06-24 16:55 | Outpatient (BNV) | payer MEDICARE, MEDICAID, OTHER, SELFPAY | PROVIDERS: Admitting Provider Physician Assistant Medical; Emergency Provider Emergency Medicine; Visit Provider Internal Medicine Critical Care Medicine | DX: J96.21 Acute and chronic respiratory failure with hypoxia (principal); J90 Pleural effusion, not elsewhere classified; A49.9 Bacterial infection, unspecified; Z16.12 Extended spectrum beta lactamase (ESBL) resistance | CPT/HCPCS: 99232 ==

== ENCOUNTER 2024-07-19 10:44 | Emergency (ER) | payer MEDICARE, MEDICAID, SELFPAY ==
--- NOTE | ~2024-07-19 | XR_ITS ---
EXAMINATION: XR CHEST CLINICAL INFORMATION: Dyspnea. COMPARISON: 06/24/2024 TECHNIQUE: Frontal view of the chest was obtained. FINDINGS: Low lung volumes. There is no gross pneumothorax. Stable cardiomediastinal silhouette. Left pectoral cardiac lead device leads similar in position. Persistent left basilar consolidation and moderate left pleural effusion. Diffuse interstitial prominence. Streaky bilateral perihilar opacities, possibly representing subsegmental atelectasis. XR/XR chest 1V IMPRESSION: Persistent left basilar consolidation and moderate left pleural effusion. Diffuse interstitial prominence. Streaky bilateral perihilar opacities, possibly representing subsegmental atelectasis. This study was presented today July 19, 2024 for interpretation. Stat results provided at this time as requested by referring provider. Electronically signed by: Aleksandra Yu MD 07/19/2024 01:23 PM [facility]
[2024-07-19 11:07] LABS: MANUAL DIFF FLAG NO
[2024-07-19 11:08] VITALS: BP 134/72; PULSE 86; RESP 16; TEMP 37.2; O2SAT 92; O2SAT 93; BMI 40.6
[2024-07-19 11:10] LABS: Basophils Percent Auto 0.3 % (0-2); Eosinophils Absolute Auto 0.2 X10*3/uL (0.0-0.4); Eosinophils Percent Auto 1.6 % (0-4); Hematocrit 41.9 % (37.0-47.0); Hemoglobin 12.9 g/dl (12.0-16.0); Imm Gran Abs Auto 0.04 X10*3/uL (0.00-0.03); Imm Gran Pct Auto 0.4 % (0.0-0.4); Lymphocytes Absolute Auto 2.1 X10*3/uL (1.2-4.9); Lymphocytes Percent Auto 20.3 % (20-40); Mean Corpuscular HGB Conc 30.8 g/dl (31.0-35.0); Mean Corpuscular Hemoglobin 29.5 pg (27.0-33.0); Mean Corpuscular Volume 95.7 fL (80.0-98.0); Mean Platelet Volume 10.1 fL (9.4-12.3); Monocytes Absolute Auto 0.8 X10*3/uL (0.1-1.2); Monocytes Percent Auto 7.9 % (2-11); Neutrophils Absolute Auto 7.3 x10*3/uL (2.0-8.3); Neutrophils Percent Auto 69.5 % (45-73); Platelet Count 236 X10*3/uL (160-400); Red Blood Count 4.38 X10*6/uL (4.20-5.50); Red Cell Distribution Width 14.6 % (11.0-16.0); White Blood Count 10.5 X10*3/uL (4.8-10.8)
[2024-07-19 11:12] LABS: Venous Blood Gas Refer to POC result
[2024-07-19 11:13] LABS: VBG Base Excess 3.7 mmol/L; VBG HCO3 32 mmol/L (22-26); VBG pCO2 68 mmHg; VBG pH 7.28 (7.32-7.43); VBG pO2 64 mmHg
--- NOTE | 2024-07-19 11:13 | ECG_ITS ---
Test Reason : DYSPNEA Blood Pressure : / mmHG Vent. Rate : 078 BPM Atrial Rate : 078 BPM P-R Int : 178 ms QRS Dur : 182 ms QT Int : 452 ms P-R-T Axes : 002 -75 082 degrees QTc Int : 515 ms Atrial-sensed ventricular-paced rhythm Abnormal ECG When compared with ECG of 24-JUN-2024 12:53, Vent. rate has decreased BY 5 BPM Referred By: Generic ED Physician Electronically Signed By:MAREN VIDALES MD
[2024-07-19 11:36] LABS: Alanine Aminotransferase 15 U/L (0-31); Albumin Level 3.5 g/dL (3.5-5.0); Alkaline Phosphatase 71 U/L (39-117); Anion Gap 11 (12-20); Aspartate Amino Transferase 17 U/L (5-31); Bilirubin Total 0.2 mg/dL (0.0-1.0); Blood Urea Nitrogen 24 mg/dL (9-16); Calcium 9.1 mg/dL (8.4-10.2); Carbon Dioxide 30 mmol/L (22-29); Chloride 105 mmol/L (96-108); Creatinine Clr Calc Pharmacy 92.1; Estimated Glomerular Filt Rate > 60; Glucose Random 217 mg/dL (60-115); Potassium 4.3 mmol/L (3.3-5.1); Sodium 142 mmol/L (135-145)
[2024-07-19 11:43] LABS: B Type Natriuretic Peptide 34 pg/mL (<100); Troponin-I High Sensitivity 13.9 ng/L (<3.5-17.0)
--- NOTE | 2024-07-19 11:53 | PC.NURSE ---
resting quietly in room w/ call chun within reach. states that she does not feel short of breath or have any pain. IV established upon arrival, labs sent. patient on home o2 at 3L
[2024-07-19 12:12] VITALS: BP 108/78; PULSE 79; RESP 16; O2SAT 92
[2024-07-19 13:04] LABS: Influenza A PCR NEGATIVE (Negative); Influenza B PCR NEGATIVE (Negative); Resp Syncy Virus RNA Qual PCR NEGATIVE (Negative); SARS COV2 PCR INHOUSE NEGATIVE (Negative)
--- NOTE | 2024-07-19 13:33 | ED_ITS ---
HPI - General Adult General Chief complaint: Dyspnea Stated complaint: LOW O2 SATURATION PER EMS? Time Seen by Provider: 07/19/24 12:11 Source: patient Mode of arrival: ambulatory Limitations: no limitations History of Present Illness HPI narrative: 63-year-old female sent from snf for low oxygen saturation patient his baseline on 3 L nasal cannula. Patient denies any complaints she states she is not more short of breath. Patient denies fevers chest pain nausea vomiting or diarrhea. States she does not feel short of breath denies any falls or injuries Related Data Home Medications ?Medication ?Instructions ?Recorded ?Confirmed atorvastatin 80 mg tablet 80 mg PO BEDTIME 11/18/21 06/24/24 ferrous sulfate 325 mg (65 mg 325 mg PO DAILY 11/18/21 06/24/24 iron) tablet insulin lispro 100 unit/mL See Protocol subcut QIDACHS 11/18/21 06/24/24 subcutaneous pen melatonin 3 mg tablet 3 mg PO BEDTIME 11/18/21 06/24/24 sennosides 8.6 mg tablet (senna) 17.2 mg PO BEDTIME 11/18/21 06/24/24 sertraline 100 mg tablet 200 mg PO DAILY 11/18/21 06/24/24 tizanidine 4 mg tablet 4 mg PO BEDTIME PRN Muscle Spasm 11/18/21 06/24/24 aspirin 81 mg chewable tablet 81 mg PO DAILY 01/05/22 06/24/24 bupropion HCl 300 mg 24 hr tablet, 300 mg PO DAILY 04/09/22 06/24/24 extended release Lactobacillus rhamnosus GG 10 1 cap PO BID 10/09/22 06/24/24 billion cell capsule (Culturelle) bupropion HCl 150 mg 24 hr tablet, 150 mg PO DAILY 10/09/22 06/24/24 extended release potassium chloride 10 mEq 10 meq PO DAILY 10/09/22 06/24/24 tablet,extended release bisacodyl 10 mg rectal suppository 10 mg NM DAILY PRN Constipation, 10/21/22 06/24/24 No results from [facility] sodium phosphates 19 gram-7 118 ml NM DAILY PRN Constipation 11/09/22 06/24/24 gram/118 mL enema (Fleet Enema) metformin 500 mg tablet 500 mg PO BID 12/27/22 06/24/24 semaglutide 0.25 mg or 0.5 mg (2 0.5 mg subcut WE 12/27/22 06/24/24 mg/3 mL) subcutaneous pen injector (Ozempic) cholecalciferol (vitamin D3) 25 25 mcg PO DAILY 04/04/23 06/24/24 mcg (1,000 unit) tablet insulin glargine 100 unit/mL 25 unit subcut DAILY 04/04/23 06/24/24 subcutaneous solution (Lantus U-100 Insulin) losartan 25 mg tablet 25 mg PO DAILY 04/04/23 06/24/24 megestrol 400 mg/10 mL (40 mg/mL) 400 mg PO TID 04/04/23 06/24/24 oral suspension olopatadine 0.2 % eye drops 1 drp ophthalmic (eye) TID 04/04/23 06/24/24 cyanocobalamin (vitamin B-12) 1,000 mcg PO DAILY 04/21/23 06/24/24 1,000 mcg capsule magnesium hydroxide 400 mg/5 mL 30 ml PO DAILY PRN Constipation 10/02/23 06/24/24 oral suspension (Milk of [employer]Xtech) empagliflozin 25 mg tablet 25 mg PO DAILY 02/16/24 06/24/24 (Jardiance) fluticasone 113 mcg-salmeterol 14 1 inh inhalation DAILY 02/16/24 06/24/24 mcg/actuation breath activated powdr magnesium citrate 300 ml PO DAILY PRN Constipation 02/16/24 06/24/24 polyethylene glycol 3350 17 17 g PO DAILY PRN Constipation 02/16/24 06/24/24 gram/dose oral powder (Miralax) acetaminophen 650 mg 650 mg PO Q4H PRN General 05/21/24 06/24/24 tablet,extended release Discomfort ipratropium 0.5 mg-albuterol 3 mg 3 ml inhalation TID wheezing 06/17/24 06/24/24 (2.5 mg base)/3 mL nebulization soln menthol 10 mg lozenges 10 mg mucous membrane Q4H PRN Sore 06/24/24 06/24/24 Throat Previous Rx's ?Medication ?Instructions ?Recorded amlodipine 5 mg tablet 5 mg PO DAILY 30 days #30 tabs 11/26/21 furosemide 40 mg tablet 40 mg PO DAILY #30 tabs 04/05/22 acetazolamide 250 mg tablet 500 mg (2 x 250 mg) PO BID #60 tabs 01/06/23 spironolactone 25 mg tablet 25 mg PO DAILY #30 tabs 11/01/23 modafinil 100 mg tablet (Provigil) 100 mg PO DAILY #30 tabs 02/18/24 insulin glargine 100 unit/mL 30 unit (0.3 mL) subcut BEDTIME 03/29/24 subcutaneous solution (Lantus #10 mL U-100 Insulin) albuterol sulfate 2.5 mg/3 mL 2.5 mg (3 mL) inhalation Q4H PRN 05/23/24 (0.083 %) solution for nebulization Shortness Of Breath/Wheezing #90 mL nystatin 100,000 unit/gram topical 1 appl topical TID #30 grams 05/23/24 powder dextromethorphan-guaifenesin 10 10 ml PO Q6H PRN Cough #237 mL 06/20/24 mg-100 mg/5 mL oral syrup cefuroxime axetil 500 mg tablet 500 mg PO BID #4 tabs 06/27/24 doxycycline hyclate 100 mg tablet 100 mg PO BID #4 tabs 06/27/24 guaifenesin 600 mg tablet, 600 mg PO BID #14 tabs 06/27/24 extended release 12 hr (Mucinex) prednisone 10 mg tablet See Taper PO DIRECTED #20 tabs 06/27/24 Allergies Allergy/AdvReac Type Severity Reaction Status Date / Time latex Allergy Unknown Unknown Verified 07/19/24 11:08 adhesive tape AdvReac Unknown Unknown Verified 07/19/24 11:08 ibuprofen AdvReac Unknown Unknown Verified 07/19/24 11:08 Review of Systems 2 Review of Systems: Review of systems: General: Patient denies any fever chills recent illness or falls Musculoskeletal: Denies back pain or body aches or other injuries HEENT: denies headache, runny nose, ear pain Respiratory: denies shortness of breath, cough Cardiovascular: no chest pain or palpitations : denies dysuria, frequency Abdomen: no nausea vomiting denies abdominal pain Extremities: no swelling, no pain Skin: no diaphoresis Yes all other systems are reviewed and are negative PMFSH Past Medical History Medical History ESBL (extended spectrum beta-lactamase) producing bacteria infection Dermatitis, unspecified Urinary tract infection due to ESBL Klebsiella Pressure injury of deep tissue of right heel Acute and chronic respiratory failure with hypercapnia Hypoventilation associated with obesity COPD (chronic obstructive pulmonary disease) Obesity hypoventilation syndrome Diabetes mellitus Acute and chronic respiratory failure with hypercapnia Morbid obesity Pressure injury of deep tissue of buttock Sepsis Morbid obesity with BMI of 50.0-59.9, adult Acute and chronic respiratory failure Pressure ulcer, stage II, skin breakdown Hypertrophic nonobstructive cardiomyopathy Presence of permanent cardiac pacemaker Acute on chronic respiratory failure with hypoxia and hypercapnia Metabolic encephalopathy Urinary tract infection due to ESBL Klebsiella Respiratory failure Presence of permanent cardiac pacemaker Sick sinus syndrome Morbid obesity Heart block AV third degree PAD (peripheral artery disease) Diabetic ulcer of foot associated with diabetes mellitus due to underlying condition, with fat layer exposed Atelectasis of both lungs Respiratory failure with hypoxia and hypercapnia Hypoventilation associated with obesity syndrome SMILEY (obstructive sleep apnea) Morbid obesity Pulmonary embolism CHF (congestive heart failure) Clostridium difficile infection Hypertension Diabetes mellitus, type 2 Depression Arthritis Anemia Surgical History History of total knee replacement Social History Social History Household Members: Other Household Members Other:: nursing facility, [facility] Housing: Skilled Nursing Housing Other:: Came from [facility] Are you a primary customer care voice consultant to a significant other at home: No Do you presently have visiting nurse or other home services: No Unable to assess alcohol history related to: Unknown Alcohol intake: former Patient Tobacco Use Status: Former Tobacco user Tobacco use type: Cigarette Cigarette Packs Per Day: 20 Cigarettes Per Day: 400.0 Years Smoked: 20 e-Cigarette/Vaping Use: Never Used Second Hand Smoke Exposure: No Substance Use Type: Unknown Advance Directives: Yes Advance Directives on File: Yes Advance Directives Date on File: 01/07/23 Do you have a plan to hurt others: No Plan service: No Current occupational status: disabled Physical Exam ED Vital Signs: Vital Signs - 24 hr 07/19/24 11:08 07/19/24 12:12 Temperature 98.9 F Pulse Rate 86 79 Respiratory Rate 16 16 Blood Pressure 134/72 108/78 Pulse Oximetry 93 92 Oxygen Delivery Method Nasal Cannula Nasal Cannula Oxygen Flow Rate 3 BMI result Body Mass Index 40.6 General: Well-appearing well-nourished in no signs of distress HEENT: Normocephalic atraumatic Neck: No signs of JVD, no masses no tenderness or lymphadenopathy Cardiovascular: Regular rate and rhythm Respiratory: Clear to auscultation bilaterally Abdomen: Soft nontender no masses rectal exam performed guiac 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 Extremities: Normal pedal pulses no signs of edema Skin: Dry warm no rashes Back: No tenderness full ROM Course Course Course Narrative: X-ray and labs all look okay patient still with no complaints I will discharge back to snf for Medical Decision Making Medical Decision Making MDM Narrative: Patient was sent for x-ray and labs COVID flu and RSV Differential Diagnosis Differential Diagnoses: The differential diagnosis associated with the presentation includes Concern for hypoxia COPD exacerbation pneumonia Admission/Observation Consideration of admission/observation: Escalation of care including admission/observation considered Lab Data [facility] Lab Attestation statement: I reviewed the patient's lab results. 07/19/24 11:02 07/19/24 11:02 Labs: Lab Results 07/19/24 07/19/24 07/19/24 Range/Units 11:02 11:09 12:20 WBC 10.5 (4.8-10.8) X10*3/uL RBC 4.38 (4.20-5.50) X10*6/uL Hgb 12.9 (12.0-16.0) g/dl Hct 41.9 (37.0-47.0) % MCV 95.7 (80.0-98.0) fL MCH 29.5 (27.0-33.0) pg MCHC 30.8 L (31.0-35.0) g/dl RDW 14.6 (11.0-16.0) % Plt Count 236 (160-400) X10*3/uL MPV 10.1 (9.4-12.3) fL Immature Gran % (Auto) 0.4 (0.0-0.4) % Neut % (Auto) 69.5 (45-73) % Lymph % (Auto) 20.3 (20-40) % [place] % (Auto) 7.9 (2-11) % Eos % (Auto) 1.6 (0-4) % Baso % (Auto) 0.3 (0-2) % Lymph # (Auto) 2.1 (1.2-4.9) X10*3/uL [place] # (Auto) 0.8 (0.1-1.2) X10*3/uL Eos # (Auto) 0.2 (0.0-0.4) X10*3/uL Baso # (Auto) 0.0 (0.0-0.2) X10*3/uL Abs Immat Gran (auto) 0.04 H (0.00-0.03) X10*3/uL Absolute Neuts (auto) 7.3 (2.0-8.3) x10*3/uL Absolute Nucleated RBC 0.000 (0.0-0.012) X10*3/uL Nucleated RBC % (auto) 0.0 (0.0-0.2) /100WBC Hold Blue Top SEE NOTE VBG pH 7.28 L (7.32-7.43) VBG pCO2 68 mmHg VBG pO2 64 mmHg VBG HCO3 32 H (22-26) mmol/L VBG O2 Saturation 87.0 % VBG Base Excess 3.7 mmol/L Sodium 142 (135-145) mmol/L Potassium 4.3 (3.3-5.1) mmol/L Chloride 105 (96-108) mmol/L Carbon Dioxide 30 H (22-29) mmol/L Anion Gap 11 L (12-20) BUN 24 H (9-16) mg/dL Creatinine 0.90 (0.5-1.4) mg/dL Estim Creat Clear Calc 92.1 Estimated GFR > 60 Random Glucose 217 H (60-115) mg/dL Calcium 9.1 (8.4-10.2) mg/dL Total Bilirubin 0.2 (0.0-1.0) mg/dL AST 17 (5-31) U/L ALT 15 (0-31) U/L Alkaline Phosphatase 71 (39-117) U/L Troponin I High Sens 13.9 (<3.5-17.0) ng/L B-Natriuretic Peptide 34 (<100) pg/mL Total Protein 7.0 (6.5-8.0) g/dL Albumin 3.5 (3.5-5.0) g/dL Influenza Type A (PCR) NEGATIVE (Negative) Influenza Type B (PCR) NEGATIVE (Negative) RSV RNA Qual (PCR) NEGATIVE (Negative) SARS-CoV-2 RNA (RT-PCR) NEGATIVE (Negative) External Record Review External record reviewed: Inpatient record and Office record Discharge Plan Discharge Clinical Impression: Shortness of breath Patient Disposition: Home, Self-Care Instructions: Shortness of Breath (ED) Additional Instructions: You were sent to the emergency department today for concern for shortness of breath. You had x-ray and labs done which were all unremarkable. Please call follow up with your doctor. Prescriptions: No Action furosemide 40 mg Tablet 40 mg PO DAILY Qty: 30 0RF Protocol: Hold for SBP< HOLD for SBP < : 90 potassium chloride 10 mEq Tablet Extended Release 10 meq PO DAILY Culturelle 10 billion cell Capsule 1 cap PO BID bupropion HCl 150 mg tablet extended release 24 hr 150 mg PO DAILY Rx Instructions: take with 300mg; tdd 450mg Fleet Enema 19-7 gram/118 mL Enema 118 ml NM DAILY PRN (Reason: Constipation) Rx Instructions: (STEP 3) IF NO BOWEL MOVEMENT 8 HOURS AFTER BISACODYL atorvastatin 80 mg Tablet 80 mg PO BEDTIME sennosides [senna] 8.6 mg Tablet 17.2 mg PO BEDTIME tizanidine 4 mg Tablet 4 mg PO BEDTIME PRN (Reason: Muscle Spasm) sertraline 100 mg Tablet 200 mg PO DAILY melatonin 3 mg Tablet 3 mg PO BEDTIME ferrous sulfate 325 mg (65 mg iron) Tablet 325 mg PO DAILY insulin lispro 100 unit/mL Insulin Pen See Protocol SUBCUT QIDACHS Protocol: Insulin Correction Scale Less than or equal to 110 ---- Give (units): 0 111 to 150 Give (units): 0 151 to 200 Give (units): 0 201 to 250 Give (units): 4 251 to 300 Give (units): 6 301 to 350 Give (units): 8 Greater than 350 Give (units): 10 Call MD if Blood Glucose > : 350 Rx Instructions: SLIDING SCALE IF BLOOD GLUCOSE GREATER THAN 400, GIVE 12 UNITS AND NOTIFY MD amlodipine 5 mg Tablet 5 mg PO DAILY 30 Days Qty: 30 0RF Protocol: Hold for SBP< HOLD for SBP < : 90 aspirin 81 mg Tablet,Chewable 81 mg PO DAILY acetazolamide 250 mg Tablet 500 mg PO BID Qty: 60 0RF losartan 25 mg tablet 25 mg PO DAILY cholecalciferol (vitamin D3) 25 mcg (1,000 unit) Tablet 25 mcg PO DAILY olopatadine 0.2 % Drops 1 drp OPHTHALMIC (EYE) TID Rx Instructions: both eyes megestrol 400 mg/10 mL (40 mg/mL) suspension 400 mg PO TID insulin glargine [Lantus U-100 Insulin] 100 unit/mL solution 25 unit subcut DAILY insulin glargine [Lantus U-100 Insulin] 100 unit/mL Solution 30 unit subcut BEDTIME Qty: 10 0RF acetaminophen 650 mg Tablet Extended Release 650 mg PO Q4H PRN (Reason: General Discomfort) nystatin 100,000 unit/gram Powder 1 appl topical TID Qty: 30 0RF Protocol: Apply to: Apply to: abd folds Rx Instructions: to abdominal folds for fungal rash albuterol sulfate 2.5 mg /3 mL (0.083 %) Solution For Nebulization 2.5 mg inhalation Q4H PRN (Reason: Shortness Of Breath/Wheezing) Qty: 90 0RF menthol 10 mg Lozenge 10 mg MUCOUS MEMBRANE Q4H PRN (Reason: Sore Throat) guaifenesin [Mucinex] 600 mg Tablet Extended Release 12hr 600 mg PO BID Qty: 14 0RF prednisone 10 mg tablet See Taper PO DIRECTED Qty: 20 0RF Taper: Prednisone 40 mg daily for 2 Days and 0 Hour 30 mg daily for 2 Days and 0 Hour 20 mg daily for 2 Days and 0 Hour 10 mg daily for 2 Days and 0 Hour Rx Instructions: see taper instructions cefuroxime axetil 500 mg tablet 500 mg PO BID Qty: 4 0RF doxycycline hyclate 100 mg tablet 100 mg PO BID Qty: 4 0RF metformin 500 mg tablet 500 mg PO BID Ozempic 0.25 mg or 0.5 mg (2 mg/3 mL) pen injector 0.5 mg subcut WE magnesium hydroxide [Milk of Magnesia] 400 mg/5 mL Suspension 30 ml PO DAILY PRN (Reason: Constipation) Rx Instructions: (step 1) If no bowel movement for 3 days. spironolactone 25 mg Tablet 25 mg PO DAILY Qty: 30 0RF Protocol: Hold for SBP< HOLD for SBP < : 90 magnesium citrate Solution 300 ml PO DAILY PRN (Reason: Constipation) Patient Comments: If no bowel movement in 12 hours after Rx Instructions: (step 4) If no BM in 12 hours polyethylene glycol 3350 [Miralax] 17 gram/dose Powder 17 g PO DAILY PRN (Reason: Constipation) Jardiance 25 mg tablet 25 mg PO DAILY fluticasone propion-salmeterol 113-14 mcg/actuation aerosol powdr breath activated 1 inh inhalation DAILY Rx Instructions: Rinse mouth with water after use and spit out. modafinil [Provigil] 100 mg Tablet 100 mg PO DAILY Qty: 30 0RF ipratropium-albuterol 0.5 mg-3 mg(2.5 mg base)/3 mL solution for nebulization 3 ml INHALATION TID dextromethorphan-guaifenesin 10-100 mg/5 mL Syrup 10 ml PO Q6H PRN (Reason: Cough) Qty: 237 0RF bisacodyl 10 mg suppository 10 mg NM DAILY PRN (Reason: Constipation, No results from MOM ) Rx Instructions: GIVE IF NO RESULT FROM MILK OF MAGNESIA cyanocobalamin (vitamin B-12) 1,000 mcg capsule 1,000 mcg PO DAILY bupropion HCl 300 mg tablet extended release 24 hr 300 mg PO DAILY Rx Instructions: take with 150mg dose; tdd 450mg Print Language: [place] Ver[place]
[2024-07-19 15:25] VITALS: BP 130/71; PULSE 79; RESP 16; TEMP 37.2; O2SAT 93
--- NOTE | 2024-07-19 18:49 | PC.NURSE ---
repositioned in bed, incontinent of urine - linens changed. provided with dinner tray. continues to rest quietly with call chun in reach, awaiting transport
--- NOTE | 2024-07-19 19:33 | PC.NURSE ---
Report taken from Zenobia MUNGUIA, assumed care of pt at this time. A&O, VSS, NAD. Awaiting EMS for transport back to facility, aware of plan of care.
[2024-07-19 20:07] VITALS: BP 130/71; PULSE 79; RESP 16; TEMP 37.2; O2SAT 93
== END 2024-07-19 20:08 | disposition home or self-care (01) ==
PROVIDERS: Emergency Provider Student in an Organized Health Care Education/Training Program; PCP Internal Medicine
DX: R06.02 Shortness of breath (principal); R06.00 Dyspnea, unspecified; J44.9 Chronic obstructive pulmonary disease, unspecified; E11.9 Type 2 diabetes mellitus without complications; I11.0 Hypertensive heart disease with heart failure; I50.9 Heart failure, unspecified; Z79.899 Other long term (current) drug therapy; Z03.818 Encounter for observation for suspected exposure to other biological agents ruled out
CPT/HCPCS: 0241U; 36415; 71045; 80053; 82803; 83880; 84484; 85025; 93005; 99283; 99285

== ENCOUNTER → 2024-07-19 11:13 | Outpatient (BNV) | payer MEDICARE, MEDICAID, SELFPAY | PROVIDERS: Emergency Provider Student in an Organized Health Care Education/Training Program; PCP Internal Medicine; Visit Provider Internal Medicine Cardiovascular Disease | DX: R06.00 Dyspnea, unspecified (principal); R94.31 Abnormal electrocardiogram [ECG] [EKG] | CPT/HCPCS: 93010 ==